=== PATIENT | male | born 1945 | race Two or more races ===

== ENCOUNTER 2020-09-06 03:16 | Emergency (ER) | payer MEDICARE, MEDICAID, SELFPAY ==
--- NOTE | 2020-09-06 03:24 | XR_ITS ---
EXAMINATION: XR CHEST CLINICAL INFORMATION: Shortness of breath COMPARISON: 07/18/2020 TECHNIQUE: Frontal view of the chest was obtained. FINDINGS: Cardiac leads overlie the chest. The lungs are well expanded. Left basilar calcified granuloma. Scarring at the right upper lung. Patchy right basilar opacity is noted. No pleural effusion. No pneumothorax. The cardiomediastinal silhouette is unchanged. IMPRESSION: Chronic changes in the lungs. Patchy opacity at the right base could represent atelectasis or pneumonia. This could be in part chronic as well.
[2020-09-06 03:25] VITALS: BP 175/69; PULSE 107; RESP 25; TEMP 36.8; O2SAT 94; BMI 25.7
[2020-09-06] MEDS: Albuterol Sulfate (0.083%) 2.5 MG/3 ML VIAL.NEB 10 MG INHALE (03:37)
[2020-09-06] MEDS: methylPREDNISolone Sod Succ/PF 125 MG/2 ML VIAL IVPUSH (03:43)
[2020-09-06 03:44] VITALS: BP 175/69; PULSE 107; RESP 18; RESP 25; TEMP 36.8; O2SAT 94
[2020-09-06 03:51] LABS: MANUAL DIFF FLAG NO
[2020-09-06 03:54] LABS: Basophils Percent Auto 0.4 % (0-2); Eosinophils Absolute Auto 0.8 X10*3/uL (0.0-0.4); Eosinophils Percent Auto 11.8 % (0-4); Hematocrit 38.4 % (42-52); Hemoglobin 11.6 g/dl (14.0-18.0); Imm Gran Abs Auto 0.02 X10*3/uL (0.00-0.03); Imm Gran Pct Auto 0.3 % (0.0-0.4); Lymphocytes Absolute Auto 1.9 X10*3/uL (1.2-4.9); Lymphocytes Percent Auto 28.2 % (20-40); Mean Corpuscular HGB Conc 30.2 g/dl (31.0-36.0); Mean Corpuscular Hemoglobin 26.2 pg (27.0-33.0); Mean Corpuscular Volume 86.7 fL (80-98); Mean Platelet Volume 9.9 fL (9.4-12.4); Monocytes Absolute Auto 0.5 X10*3/uL (0.1-1.2); Monocytes Percent Auto 7.8 % (2-11); Neutrophils Absolute Auto 3.5 X10*3/uL (2.0-8.3); Neutrophils Percent Auto 51.5 % (45-73); Platelet Count 333 X10*3/uL (160-400); Red Blood Count 4.43 X10*6/uL (4.60-5.80); Red Cell Distribution Width 14.2 % (11.0-16.0); White Blood Count 6.9 X10*3/uL (4.8-10.8)
--- NOTE | 2020-09-06 03:56 | ED.ASTHMA ---
HPI - Asthma General Chief Complaint: Asthma Stated Complaint: asthma Time Seen by Provider: 09/06/20 03:23 Source: patient Mode of arrival: ambulatory History of Present Illness HPI Narrative: this is a 74-year-old male with known COPD and continues to be a smoker who presents with 2 days of worsening shortness of breath without associated fevers, chills, chest pain / palpitations, new cough, or increased phlegm production. Patient states he used his albuterol couple of times, but does have medication. Related Data Home Medications Medication Instructions Recorded Confirmed albuterol sulfate 90 mcg INHALATION 09/06/20 levothyroxine 125 mcg PO 09/06/20 omeprazole 20 mg PO 09/06/20 roflumilast [Daliresp] 500 mcg PO 09/06/20 Previous Rx's Medication Instructions Recorded azithromycin 250 mg PO DAILY 4 Days #4 tab 09/06/20 prednisone 40 mg PO DAILY 4 Days #8 tab 09/06/20 Allergies Allergy/AdvReac Type Severity Reaction Status Date / Time shellfish derived Allergy Severe ANAPHYLAXIS Unverified 08/15/20 17:04 [SHELLFISH DERIVED] pollen extracts [POLLEN] Allergy Intermediate RUNNING Unverified 08/15/20 17:04 NOSE, WATERY EYES, SNEEZING varenicline [VARENICLINE] AdvReac Unknown PALPITATION Unverified 08/15/20 17:04 S ENVIROMENTAL Allergy Intermediate RUNNY Uncoded 08/15/20 17:04 NOSE, WATERY EYES, SNEEZING Review of Systems Review of Systems: Pertinent positives and negatives as stated in the HPI. GEN: no fevers, chills, fatigue HEENT: no nasal congestion, sore throat, ear pain NEURO: no headache, dizziness, focal weakness PULM: +shortness of breath CV: no chest pain, palpitations, LE edema ABD: no abdominal pain, nausea, vomiting, diarrhea : no dysuria, urgency, frequency SKIN: no rash ROS otherwise negative x 10 PMFSH Past Medical History Source: nursing notes reviewed Medical History Asthma Diabetes Social History Social History Alcohol intake: never Smoking Status: Current every day smoker Use of substances other than those prescribed or required for medical reasons: No Advance Directives: No Advance Directives Information Provided: No Physical Exam Vital Signs and I&O and Narrative: Vital Signs and I&O: Vital Signs Temp 98.2 F 09/06/20 03:44 Pulse 90 09/06/20 04:00 Resp 18 09/06/20 04:00 BP 155/78 H 09/06/20 04:00 Pulse Ox 94 09/06/20 03:44 Intake & Output 09/05/20 09/05/20 09/06/20 06:59 18:59 06:59 Weight 63.957 kg Body Mass Index 25.7 VITAL SIGNS: Reviewed. GENERAL: Well developed, well nourished, in no acute distress. HEAD: Normocephalic/atraumatic, EYES: PERRLA, EOMI intact without pain, no nystagmus/pallor/icterus noted EARS: Ext canals without abnormality, TMs non-bulging and non-erythematous NOSE: Nares patent bilateral OROPHARYNX: no oral lesions noted, posterior pharynx clear and non-erythematous without noted tonsillar enlargement/erythema/exudates NECK: Supple, no adenopathy LUNGS: expiratory wheezes, tachypnea, and mild work of breathing.. No adventitious sounds or accessory muscle use. SpO2< 94%> CARDIOVASCULAR: Regular rate and rhythm without noted murmurs, no JVD or lower extremity edema. ABDOMEN: Soft, non-tender, non-distended with bowel sounds. No rigidity. No guarding. No palpable masses or hernias noted MUSCULOSKELETAL: No tenderness, deformities, or effusions noted on gross inspection. EXTREMITIES: No cyanosis, clubbing or edema. SKIN: Inspection of the skin reveals no rashes, ulcerations, jaundice, pallor, or petechiae. NEUROLOGIC: Alert and oriented x 4. Strength and sensation to light touch were grossly intact x 4. Course Course Course Narrative: This is a 74-year-old male with history and clinical presentation consistent with chronic COPD/ asthma condition that is contributing to patient's tachycardia and tachypnea and this is not a sepsis presentation. Patient given an hour long albuterol treatment as well as Solu-Medrol. Review of all investigations is negative for evidence of infectious etiology, however there was mention on chest x-ray possible infiltrate on the right side and patient will be empirically treated with a Z-Jorge but otherwise reports relief and resolution of his symptoms. patient received initial dose of antibiotics and will have a script for the remainder as well as a short course of steroids sent to his pharmacy. MDM - Asthma Lab Data Result diagrams: 09/06/20 03:46 09/06/20 03:46 Labs: Lab Results 09/06/20 09/06/20 09/06/20 Range/Units 03:41 03:46 03:46 WBC 6.9 (4.8-10.8) X10*3/uL RBC 4.43 L (4.60-5.80) X10*6/uL Hgb 11.6 L (14.0-18.0) g/dl Hct 38.4 L (42-52) % MCV 86.7 (80-98) fL MCH 26.2 L (27.0-33.0) pg MCHC 30.2 L (31.0-36.0) g/dl RDW 14.2 (11.0-16.0) % Plt Count 333 (160-400) X10*3/uL MPV 9.9 (9.4-12.4) fL Immature Gran % (Auto) 0.3 (0.0-0.4) % Neut % (Auto) 51.5 (45-73) % Lymph % (Auto) 28.2 (20-40) % Hubbard % (Auto) 7.8 (2-11) % Eos % (Auto) 11.8 H (0-4) % Baso % (Auto) 0.4 (0-2) % Lymph # (Auto) 1.9 (1.2-4.9) X10*3/uL Hubbard # (Auto) 0.5 (0.1-1.2) X10*3/uL Eos # (Auto) 0.8 H (0.0-0.4) X10*3/uL Baso # (Auto) 0.0 (0.0-0.2) X10*3/uL Abs Immat Gran (auto) 0.02 (0.00-0.03) X10*3/uL Absolute Neuts (auto) 3.5 (2.0-8.3) X10*3/uL Absolute Nucleated RBC 0.000 (0.0-0.012) X10*3/uL Nucleated RBC % (auto) 0.0 (0.0-0.2) /100WBC Hold Blue Top SEE NOTE Sodium 143 (135-145) mmol/L Potassium 4.4 (3.3-5.1) mmol/l Chloride 105 (96-108) mmol/L Carbon Dioxide 29 (22-29) mmol/L Anion Gap 13 (12-20) BUN 10 (9-16) mg/dL Creatinine 0.79 (0.5-1.4) mg/dL Estim Creat Clear Calc 65.2 Estimated GFR > 60 Random Glucose 93 (60-115) mg/dL Calcium 8.8 (8.4-10.2) mg/dL Total Bilirubin 0.4 (0.0-1.0) mg/dL AST 16 (5-37) U/L ALT 15 (0-40) U/L Alkaline Phosphatase 117 (39-117) U/L Total Protein 6.6 (6.5-8.0) g/dL Albumin 4.0 (3.5-5.0) g/dL Discharge Plan Discharge Clinical Impression: Chronic obstructive asthma with exacerbation Patient Disposition: Home, Self-Care Instructions: How to Stop Smoking (ED), COPD (Chronic Obstructive Pulmonary Disease) (ED) Prescriptions: New azithromycin 250 mg tablet 250 mg PO DAILY 4 Days Qty: 4 RF: 0 prednisone 20 mg tablet 40 mg PO DAILY 4 Days Qty: 8 RF: 0 No Action levothyroxine 125 mcg tablet 125 mcg PO RF: 0 omeprazole 20 mg capsule,delayed release(DR/EC) 20 mg PO RF: 0 albuterol sulfate 90 mcg/actuation HFA aerosol inhaler 90 mcg inhalation RF: 0 Daliresp 500 mcg tablet 500 mcg PO RF: 0 Referrals: Physician,Unknown [Primary Care Provider] - 2 days
[2020-09-06 04:00] VITALS: BP 155/78; PULSE 90; RESP 18
[2020-09-06 04:32] LABS: Alanine Aminotransferase 15 U/L (0-40); Alkaline Phosphatase 117 U/L (39-117); Anion Gap 13 (12-20); Aspartate Amino Transferase 16 U/L (5-37); Bilirubin Total 0.4 mg/dL (0.0-1.0); Blood Urea Nitrogen 10 mg/dL (9-16); Calcium 8.8 mg/dL (8.4-10.2); Carbon Dioxide 29 mmol/L (22-29); Chloride 105 mmol/L (96-108); Creatinine Clr Calc Pharmacy 65.2; Estimated Glomerular Filt Rate > 60; Glucose Random 93 mg/dL (60-115); Potassium 4.4 mmol/l (3.3-5.1); Sodium 143 mmol/L (135-145); Total Protein 6.6 g/dL (6.5-8.0)
--- NOTE | 2020-09-06 04:58 | PC.NURSE ---
patient reports relief post neb.
--- NOTE | 2020-09-06 05:04 | PC.NURSE ---
when sleeping patient noted to desaturate down to 89%
[2020-09-06] MEDS: Azithromycin 500 MG TABLET PO (05:51)
== END 2020-09-06 05:56 | disposition home or self-care (01) ==
PROVIDERS: Emergency Provider Student in an Organized Health Care Education/Training Program
DX: J44.1 Chronic obstructive pulmonary disease with (acute) exacerbation (principal); F17.200 Nicotine dependence, unspecified, uncomplicated; Z71.6 Tobacco abuse counseling; Z79.899 Other long term (current) drug therapy
CPT/HCPCS: 36415; 71045; 80053; 85025; 96374; 99284; J2930

== ENCOUNTER 2020-09-10 09:30 | Outpatient (REF) | payer MEDICARE, MEDICAID, SELFPAY ==
--- NOTE | 2020-09-10 09:38 | CT_ITS ---
EXAMINATION: CT CHEST WITHOUT CONTRAST CLINICAL INFORMATION: Pulmonary nodule COMPARISON: Previous chest x-rays most recent 09/06/2020 and chest CTA April 2018 TECHNIQUE: Multidetector volumetric CT imaging of the chest was done. Axial MIP volume rendering provided. Sagittal and coronal reformatted images were obtained. This CT examination was performed using dose optimization techniques as appropriate, variously including the following: *Automated exposure control *Adjustment of mA and/or kV according to patient size (this includes techniques or standardized protocols for targeted exams where dose is matched to indication/reason for exam; i.e. extremities or head) *Use of iterative reconstruction technique DLP: 98 mGy-cm FINDINGS: LUNGS: There is evidence of emphysema. There is biapical pleural and parenchymal scarring, greater on the right. There is right apical and upper lobe pleural calcification. These findings are stable. There is a new superior segment right lower lobe nodule measuring 5 x 10 mm axial image 28 series 4 and 270 series 5. This is oval in shape, and noncalcified and abuts an accessory fissure and may represent a subpleural lymph node. There is a 7 mm calcified left lower lobe nodule axial image 42 series 4 that is stable. There is evidence of diffuse airways disease with areas of bronchial wall thickening and bronchial soft tissue opacification. There is a new cavitary right lower lobe nodule in the posterior medial costophrenic sulcus. This measures 1.2 cm and has slightly spiculated margins, axial image 465 series 5.. MEDIASTINUM: The heart does not appear enlarged. There is mild coronary artery calcification. There is no pericardial effusion. The thoracic aorta is tortuous but normal in caliber. There are small mediastinal lymph nodes including small calcified left hilar lymph nodes. No enlarged lymph nodes are seen. PLEURA: There is no pleural effusion. No pleural mass or thickening. AXILLA: No chest wall mass or enlarged axillary lymph nodes are seen. UPPER ABDOMEN: Unremarkable. OSSEOUS STRUCTURES: There are mild degenerative changes of the spine. IMPRESSION: Emphysema. Stable 7 mm calcified left lower lobe nodule probably representing a calcified granuloma. New 5 x 10 mm oval-shaped superior segment right lower lobe noncalcified pulmonary nodule. This is adjacent to an accessory fissure and may represent a subpleural lymph node. Evidence of diffuse airways disease with areas of bronchial wall thickening and bronchial soft tissue opacification. This is greatest in the lower lobes. New 1.2 cm cavitary right lower lobe, or nodule in the posterior medial costophrenic sulcus. Infectious, inflammatory and neoplastic processes should be considered. Short-term chest CT follow-up in 3 months is recommended.
== END 2020-09-10 09:31 | disposition home or self-care (01) ==
LOC: HO.CT 09:30
PROVIDERS: PCP Nurse Practitioner Family; Visit Provider Internal Medicine Pulmonary Disease
DX: R91.1 Solitary pulmonary nodule (principal); J43.9 Emphysema, unspecified
CPT/HCPCS: 71250

== ENCOUNTER 2020-09-28 15:23 | Inpatient (IN) | payer MEDICARE, MEDICAID, SELFPAY ==
[2020-09-28] VITALS (9 sets, daily range): BP systolic 120–156; BP diastolic 49–140; PULSE 82–119; RESP 16–38; TEMP 36.4–36.7; O2SAT 97–99; BMI 25.0
--- NOTE | 2020-09-28 15:44 | ECG_ITS ---
Test Reason : SOB Blood Pressure : / mmHG Vent. Rate : 069 BPM Atrial Rate : 069 BPM P-R Int : 094 ms QRS Dur : 094 ms QT Int : 356 ms P-R-T Axes : 079 062 078 degrees QTc Int : 381 ms Sinus rhythm with short FL Nonspecific T wave abnormality Abnormal ECG T wave amplitude has increased in Anterolateral leads Heart rate has decreased Premature atrial complexes are no longer Present Referred By: Juni Vann Electronically Signed By:EMILEE DO MD
--- NOTE | 2020-09-28 15:44 | XR_ITS ---
EXAMINATION: XR CHEST CLINICAL INFORMATION: Shortness of breath. COMPARISON: Multiple priors, most recent CT chest dated 09/10/2020. TECHNIQUE: Frontal view of the chest was obtained. FINDINGS: Mild emphysematous changes with right upper lobe calcified pleural plaques and left lower lobe calcified granuloma appear unchanged. No new airspace consolidation. No pleural effusion or pneumothorax. Stable cardiomediastinal silhouette. No acute osseous abnormality. XR/XR chest 1V IMPRESSION: No acute cardiopulmonary findings.
--- NOTE | 2020-09-28 15:57 | ED.SOB ---
HPI - SOB/Dyspnea General Chief Complaint: Dyspnea Stated Complaint: shortness of breath Time Seen by Provider: 09/28/20 15:43 Source: patient Mode of arrival: ambulatory Limitations: no limitations History of Present Illness HPI Narrative: 74-year-old male long standing history of smoking with COPD, multiple hospitalization for COPD exacerbation, presented with progressively worsening of shortness of breath since last night, presentation today is similar to his previous presentation in the past, patient declined any fever or chills or exposure to a sick contact. MD elicited complaint: shortness of breath Pertinent past history: COPD Onset (ago): day(s) (1) Timing: constant Severity: severe Exacerbating factors: exertion Relieving factors: nothing Known history of: COPD Associated symptoms: denies other symptoms Treatment prior to arrival: none Related Data Home Medications Medication Instructions Recorded Confirmed albuterol sulfate 90 mcg INHALATION DAILY 09/06/20 levothyroxine 112 mcg PO QAM 09/28/20 09/28/20 metformin 500 mg PO DAILY 09/28/20 09/28/20 mirtazapine 7.5 mg PO DAILY 09/28/20 09/28/20 montelukast 10 mg PO DAILY 09/28/20 09/28/20 nabumetone 500 mg PO DAILY 09/28/20 09/28/20 prednisone 10 mg PO DAILY 09/28/20 09/28/20 Allergies Allergy/AdvReac Type Severity Reaction Status Date / Time shellfish derived Allergy Severe ANAPHYLAXIS Unverified 08/15/20 17:04 [SHELLFISH DERIVED] pollen extracts [POLLEN] Allergy Intermediate RUNNING Unverified 08/15/20 17:04 NOSE, WATERY EYES, SNEEZING varenicline [VARENICLINE] AdvReac Unknown PALPITATION Unverified 08/15/20 17:04 S ENVIROMENTAL Allergy Intermediate RUNNY Uncoded 08/15/20 17:04 NOSE, WATERY EYES, SNEEZING Review of Systems Review of Systems: All other systems are reviewed and are negative Constitutional: Reports as per HPI and Reports no additional constitutional complaints Eyes: Reports as per HPI and Reports no additional eye complaints Reports system reviewed and no additional complaints, except as documented Cardiovascular: Reports as per HPI and Reports no additional cardiovascular complaints Respiratory: Reports as per HPI and Reports no additional respiratory complaints Gastrointestinal: Reports as per HPI and Reports no additional gastrointestinal complaints Genitourinary: Reports no additional female genitourinary complaints Musculoskeletal: Reports no additional musculoskeletal complaints Skin/Breast: Reports system reviewed and no additional complaints, except as docu Psychiatric: Reports no additional psychiatric complaints Endocrine: Reports no additional endocrine complaints Hematologic/Lymphatic: Reports no additional hematologic/lymphatic complaints Allergic/Immunologic: Reports no additional allergic/immunologic complaints Reports system reviewed and no additional complaints, except as documented and Reports Abnormal speech present [facility] Past Medical History Medical History Asthma Diabetes Oxygen dependent Social History Social History Alcohol intake: never Smoking Status: Current every day smoker Smoked in Last 30 Days: Yes Use of substances other than those prescribed or required for medical reasons: No Advance Directives: No Advance Directives Information Provided: No Physical Exam Vital Signs: Vital Signs: Vital Signs Temp Pulse Resp BP Pulse Ox 09/28/20 16:34 122/63 09/28/20 15:44 156/140 H 97 09/28/20 15:42 38 H 09/28/20 15:40 98.1 F 105 H 38 H 97 Body Mass Index 25.0 vital signs have been reviewed as normal and appeared to be correct. Blood pressure normal. Heart rate normal. Tachypnea. Temperature normal. Oxygen saturation normal. Appearance: Alert. Oriented X3. acute respiratory distress, patient is try potting. Head: Normal external exam. Normocephalic. Atraumatic. No Yang signs noted. No raccoon eyes noted Eyes: PERRLA. EOMI. Conjunctiva and sclera normal. Eyelids normal. ENT: EAC normal. TM's Normal. Pharynx normal. Uvula midline. Moist mucous membranes. No trismus noted. No drooling noted. No muffled voice noted. Neck: Normal inspection. Neck supple. FROM. No adenopathy. Thyroid Normal. No meningeal signs. No neck mass noted. CVS: Normal heart rate and rhythm. Heart sound normal. No murmurs noted. Pulses normal throughout. Respiratory: moderate respiratory distress. prolonged expiration, positive expiratory wheezes. rales/rhonchi noted. Chest nontender. intercostal muscle accessory usage noted with decreased air movement noted. Abdomen: Soft and nontender. Bowel sounds normal in all 4 quadrants. No distention noted. No organomegaly noted. No visible injury noted. Back: No CVA tenderness. Full range of motion noted. Skin: Skin warm and dry. Normal skin color. Normal skin turgor. No rashes/lesions/lacerations noted. Extremities: No lower extremity edema. Extremities exhibit normal range of motion. Extremities nontender. Neuro: Oriented X 3. No motor deficit. No sensory deficit. Reflexes normal. Course Course Course Narrative: 74 years old male history of COPD oxygen-dependent use 1 L of oxygen at home, longstanding smoking history, presented with COPD exacerbation with acute respiratory distress, patient will be on the cardiac monitoring, consider continuous bronchodilator, Solu-Medrol, magnesium, Levaquin, check labs, check x-ray, frequent assessment. MDM - SOB/Dyspnea MDM Narrative Medical decision making narrative: assessment and plan. 74-year-old male presented with COPD exacerbation and respiratory distress, cause patient met criteria for sepsis / COPD/ lactic acidosis above 4. Patient will receive continuous treatment of bronchodilator, magnesium, Solu-Medrol, antibiotic (Levaquin), patient also received fluids 30 cc/kg. Will admit. Lab Data Attestation: I reviewed the patient's lab results. Result diagrams: 09/28/20 15:46 09/28/20 15:46 Labs: Lab Results 09/28/20 09/28/20 09/28/20 Range/Units 15:46 15:46 15:46 WBC 11.5 H (4.8-10.8) X10*3/uL RBC 4.41 L (4.60-5.80) X10*6/uL Hgb 11.5 L (14.0-18.0) g/dl Hct 36.7 L (42-52) % MCV 83.2 (80-98) fL MCH 26.1 L (27.0-33.0) pg MCHC 31.3 (31.0-36.0) g/dl RDW 15.1 (11.0-16.0) % Plt Count 342 (160-400) X10*3/uL MPV 9.6 (9.4-12.4) fL Immature Gran % (Auto) 0.4 (0.0-0.4) % Neut % (Auto) 94.8 H (45-73) % Lymph % (Auto) 3.2 L (20-40) % [place] % (Auto) 1.3 L (2-11) % Eos % (Auto) 0.1 (0-4) % Baso % (Auto) 0.2 (0-2) % Lymph # (Auto) 0.4 L (1.2-4.9) X10*3/uL [place] # (Auto) 0.2 (0.1-1.2) X10*3/uL Eos # (Auto) 0.0 (0.0-0.4) X10*3/uL Baso # (Auto) 0.0 (0.0-0.2) X10*3/uL Abs Immat Gran (auto) 0.05 H (0.00-0.03) X10*3/uL Absolute Neuts (auto) 10.9 H (2.0-8.3) X10*3/uL Absolute Nucleated RBC 0.000 (0.0-0.012) X10*3/uL Nucleated RBC % (auto) 0.0 (0.0-0.2) /100WBC Smear Tech's Comments VERIFIED PT (10.8-13.0) SEC INR (0.9-1.1) APTT (24.1-38.0) SEC ABG pH (7.35-7.45) ABG pCO2 (32-45) mmhg ABG pO2 (83-108) mmhg ABG HCO3 (22-26) mmol/l ABG O2 Saturation % ABG Base Excess Oxygen Given Sodium 137 (135-145) mmol/L Potassium 4.2 (3.3-5.1) mmol/l Chloride 101 (96-108) mmol/L Carbon Dioxide 24 (22-29) mmol/L Anion Gap 16 (12-20) BUN 13 (9-16) mg/dL Creatinine 0.87 (0.5-1.4) mg/dL Estim Creat Clear Calc 66.7 Estimated GFR > 60 Random Glucose 200 H D (60-115) mg/dL Lactic Acid (0.5-2.0) mmol/L Calcium 8.2 L (8.4-10.2) mg/dL Total Bilirubin 0.6 (0.0-1.0) mg/dL Direct Bilirubin 0.2 (0.0-0.5) mg/dL AST 11 (5-37) U/L ALT 11 (0-40) U/L Alkaline Phosphatase 105 (39-117) U/L Troponin I High Sens 4.5 (<3.5-35.0) ng/L B-Natriuretic Peptide 36 (<100) pg/mL Total Protein 6.4 L (6.5-8.0) g/dL Albumin 4.0 (3.5-5.0) g/dL Lipase 30 (8-78) U/L 09/28/20 09/28/20 09/28/20 Range/Units 15:46 15:46 16:00 WBC (4.8-10.8) X10*3/uL RBC (4.60-5.80) X10*6/uL Hgb (14.0-18.0) g/dl Hct (42-52) % MCV (80-98) fL MCH (27.0-33.0) pg MCHC (31.0-36.0) g/dl RDW (11.0-16.0) % Plt Count (160-400) X10*3/uL MPV (9.4-12.4) fL Immature Gran % (Auto) (0.0-0.4) % Neut % (Auto) (45-73) % Lymph % (Auto) (20-40) % [place]land % (Auto) (2-11) % Eos % (Auto) (0-4) % Baso % (Auto) (0-2) % Lymph # (Auto) (1.2-4.9) X10*3/uL [place] # (Auto) (0.1-1.2) X10*3/uL Eos # (Auto) (0.0-0.4) X10*3/uL Baso # (Auto) (0.0-0.2) X10*3/uL Abs Immat Gran (auto) (0.00-0.03) X10*3/uL Absolute Neuts (auto) (2.0-8.3) X10*3/uL Absolute Nucleated RBC (0.0-0.012) X10*3/uL Nucleated RBC % (auto) (0.0-0.2) /100WBC Smear Tech's Comments PT 11.9 (10.8-13.0) SEC INR 1.0 (0.9-1.1) APTT 32.7 (24.1-38.0) SEC ABG pH 7.38 (7.35-7.45) ABG pCO2 35 (32-45) mmhg ABG pO2 71 L (83-108) mmhg ABG HCO3 20 L (22-26) mmol/l ABG O2 Saturation 94.1 % ABG Base Excess -4.0 Oxygen Given ROOM AIR Sodium (135-145) mmol/L Potassium (3.3-5.1) mmol/l Chloride (96-108) mmol/L Carbon Dioxide (22-29) mmol/L Anion Gap (12-20) BUN (9-16) mg/dL Creatinine (0.5-1.4) mg/dL Estim Creat Clear Calc Estimated GFR Random Glucose (60-115) mg/dL Lactic Acid 4.8 H* (0.5-2.0) mmol/L Calcium (8.4-10.2) mg/dL Total Bilirubin (0.0-1.0) mg/dL Direct Bilirubin (0.0-0.5) mg/dL AST (5-37) U/L ALT (0-40) U/L Alkaline Phosphatase (39-117) U/L Troponin I High Sens (<3.5-35.0) ng/L B-Natriuretic Peptide (<100) pg/mL Total Protein (6.5-8.0) g/dL Albumin (3.5-5.0) g/dL Lipase (8-78) U/L Critical Care Time Critical Care Time Total Critical Care Time: 60 Attestation: I have spent 60 minutes at the bedside providing critical care level the patient, diet management of the patient, monitoring the patient, reviewing x-ray of the patient, discussing plan with the patient, talking to the admitting physician. Discharge Plan Discharge Clinical Impression: Acute exacerbation of chronic obstructive airways disease, Acidosis, lactic Patient Disposition: Admitted As Inpatient Prescriptions: No Action metformin 500 mg tablet 500 mg PO DAILY RF: 0 prednisone 10 mg tablet 10 mg PO DAILY RF: 0 montelukast 10 mg tablet 10 mg PO DAILY RF: 0 levothyroxine 112 mcg tablet 112 mcg PO QAM RF: 0 nabumetone 500 mg tablet 500 mg PO DAILY RF: 0 mirtazapine 7.5 mg tablet 7.5 mg PO DAILY RF: 0 albuterol sulfate 90 mcg/actuation HFA aerosol inhaler 90 mcg inhalation DAILY RF: 0
[2020-09-28 15:59] LABS: Basophils Percent Auto 0.2 % (0-2); Eosinophils Percent Auto 0.1 % (0-4); Hematocrit 36.7 % (42-52); Hemoglobin 11.5 g/dl (14.0-18.0); Imm Gran Abs Auto 0.05 X10*3/uL (0.00-0.03); Imm Gran Pct Auto 0.4 % (0.0-0.4); Lymphocytes Absolute Auto 0.4 X10*3/uL (1.2-4.9); Lymphocytes Percent Auto 3.2 % (20-40); MANUAL DIFF FLAG SCAN; Mean Corpuscular HGB Conc 31.3 g/dl (31.0-36.0); Mean Corpuscular Hemoglobin 26.1 pg (27.0-33.0); Mean Corpuscular Volume 83.2 fL (80-98); Mean Platelet Volume 9.6 fL (9.4-12.4); Monocytes Absolute Auto 0.2 X10*3/uL (0.1-1.2); Monocytes Percent Auto 1.3 % (2-11); Neutrophils Absolute Auto 10.9 X10*3/uL (2.0-8.3); Neutrophils Percent Auto 94.8 % (45-73); Platelet Count 342 X10*3/uL (160-400); Red Blood Count 4.41 X10*6/uL (4.60-5.80); Red Cell Distribution Width 15.1 % (11.0-16.0); SCAN SMEAR FLAG 1; White Blood Count 11.5 X10*3/uL (4.8-10.8)
[2020-09-28] MEDS: Albuterol/Iprat 2.5/0.5MG 3 ML AMPUL.NEB INHALE ×2 (16:04→20:09)
[2020-09-28 16:05] LABS: Prothrombin Time 11.9 SEC (10.8-13.0)
[2020-09-28 16:07] LABS: Partial Thromboplastin Time 32.7 SEC (24.1-38.0)
[2020-09-28 16:17] LABS: Pt Ventilation O2% ROOM AIR
[2020-09-28 16:22] LABS: ABG PCO2 35 mmhg (32-45); PO2 ABG 71 mmhg (83-108); pH ABG 7.38 (7.35-7.45)
[2020-09-28 16:23] LABS: Blood Gas Serial # 5414; HCO3 ABG 20 mmol/l (22-26); Oxygen Saturation ABG 94.1 %
[2020-09-28 16:25] LABS: SLIDE REVIEW VERIFIED
[2020-09-28 16:31] LABS: B Type Natriuretic Peptide 36 pg/mL (<100); Troponin-I High Sensitivity 4.5 ng/L (<3.5-35.0)
[2020-09-28] MEDS: 0.9 % Sodium Chloride 500 ML 999 ML IVCONT ×2 (16:32→23:48)
[2020-09-28] MEDS: Magnesium Sulfate/H2O 2 GM/50 ML PIGGYBACK IV (16:32)
[2020-09-28] MEDS: levoFLOXacin/D5W 750 MG/150 ML PIGGYBACK 100 MG IV (16:32)
[2020-09-28 16:34] LABS: Lactic Acid 4.8 mmol/L (0.5-2.0)
[2020-09-28] MEDS: Albuterol Sulfate (0.083%) 2.5 MG/3 ML VIAL.NEB 7.5 MG INHALE (16:37)
[2020-09-28 16:42] LABS: Alanine Aminotransferase 11 U/L (0-40); Alkaline Phosphatase 105 U/L (39-117); Anion Gap 16 (12-20); Aspartate Amino Transferase 11 U/L (5-37); Bilirubin Direct 0.2 mg/dL (0.0-0.5); Bilirubin Total 0.6 mg/dL (0.0-1.0); Blood Urea Nitrogen 13 mg/dL (9-16); Calcium 8.2 mg/dL (8.4-10.2); Carbon Dioxide 24 mmol/L (22-29); Chloride 101 mmol/L (96-108); Creatinine Clr Calc Pharmacy 66.7; Estimated Glomerular Filt Rate > 60; Glucose Random 200 mg/dL (60-115); Lipase 30 U/L (8-78); Potassium 4.2 mmol/l (3.3-5.1); Sodium 137 mmol/L (135-145); Total Protein 6.4 g/dL (6.5-8.0)
[2020-09-28] MEDS: 0.9 % Sodium Chloride 2,041.17 ML 2041.17 ML IVCONT (16:54)
[2020-09-28 17:18] LABS: SARS COV2 PCR INHOUSE NEGATIVE (Negative)
--- NOTE | 2020-09-28 17:29 | PC.NURSE ---
1632 ivp solumedrol per md verbal order
[2020-09-28 17:55] LABS: Reflex Lactate? Lactic Acid Added
--- NOTE | 2020-09-28 18:10 | PM.IMHP ---
History of Present Illness Date of Service: 09/28/20 Chief Complaint: sob HPI this is the 74-year-old male who has history of COPD : Came to the hospital because shortness of breath, cough productive with on and off yellow sputum-he went to his the PCP and was taking antibiotic and prednisone as per patient he does not remember the name of the antibiotic though ,from last 2 days his shortness of breath was worsening so he decided to come to the hospital. In the ED patient was seen by ED physician and [id number] was given antibiotic arteaga Has W BC count elevated Chest x-ray clear After receiving above treatment from ED patient shortness of breath is slightly improving, now being admitted for COPD exacerbation. The patient denies any fever or chills or nausea vomiting or abdominal pain or dizziness or weakness or numbness or any urinary complaints. He denies any recent travel or any sick contact or any body sick around him. [facility] Medical History (Updated 09/28/20 @ 18:24 by Bob Nowak MD) Asthma Cataract COPD (chronic obstructive pulmonary disease) Diabetes GERD (gastroesophageal reflux disease) Hypertension Hypothyroidism Osteoarthritis Osteoporosis Oxygen dependent Ureteral calculi Family history: reviewed and not pertinent (Father had cancer. Unclear which cancer.) Surgical History (Updated 09/28/20 @ 18:19 by Bob Nowak MD) History of appendectomy Hx of cataract surgery Social History Household Members: Spouse Housing: Apartment Do you presently have visiting nurse or other home services: No Alcohol intake: never Smoking Status: Current every day smoker Tobacco Type: Cigarette Smoked in Last 30 Days: Yes Patient Interested in Nicotine Replacement: Yes Patient Given Instructions on How to Stop Smoking: Yes Date Education Initiated: 09/28/20 Second Hand Smoke Exposure: Yes Use of substances other than those prescribed or required for medical reasons: No Currently Displaying Signs/Symptoms of Drug Intoxication Withdrawal: No Any prior treatment program specific to substance use: No Have you been hit, kicked, punched, or otherwise hurt by someone within the past year? If so, by whom?: No Do you feel safe in your current relationship?: Yes Is there a partner from a previous relationship who is making you feel unsafe now?: No Are you made to feel afraid or neglected: No Advance Directives: No Advance Directives Information Provided: No Do you have thoughts of harming others: None Do you have a plan to hurt others: No Plan Recently lost weight without trying: No Meds Allergies Allergy/AdvReac Type Severity Reaction Status Date / Time shellfish derived Allergy Severe ANAPHYLAXIS Verified 09/28/20 19:45 [SHELLFISH DERIVED] pollen extracts [POLLEN] Allergy Intermediate RUNNING Verified 09/28/20 19:45 NOSE, WATERY EYES, SNEEZING varenicline [VARENICLINE] AdvReac Unknown PALPITATION Verified 09/28/20 19:45 S ENVIROMENTAL Allergy Intermediate RUNNY Uncoded 09/28/20 19:45 NOSE, WATERY EYES, SNEEZING Home Medications Medication Instructions Recorded Confirmed Type albuterol sulfate 90 mcg INHALATION DAILY 09/06/20 09/28/20 History levothyroxine 112 mcg PO QAM 09/28/20 09/28/20 History metformin 500 mg PO DAILY 09/28/20 09/28/20 History mirtazapine 7.5 mg PO DAILY 09/28/20 09/28/20 History montelukast 10 mg PO DAILY 09/28/20 09/28/20 History nabumetone 500 mg PO DAILY 09/28/20 09/28/20 History prednisone 10 mg PO DAILY 09/28/20 09/28/20 History Physical Exam Vital Signs and Narrative: Vital Signs: Last Vital Signs Temp 98.1 F 09/28/20 15:40 Pulse 105 H 09/28/20 15:40 Resp 38 H 09/28/20 15:42 BP 122/63 09/28/20 16:34 Pulse Ox 97 09/28/20 15:44 Body Mass Index 25.0 Const: General: cooperative Nutritional Appearance: well nourished HENMT: Head: Yes normal to inspection Ears: hearing grossly normal bilaterally Eyes: Sclerae: sclerae normal Neck: Yes normal visual inspection Resp: Other: Bilateral wheezing, slightly diminished at bases. Cardio: Other: Regular rate and rhythm S1-S2 heard no murmur GI: Other: Abdomen is soft nondistended nontender bowel sounds are present. : Other: Noncontributory Skin: Other: No rash or erythema Neuro: Other: Alert oriented x3, nonfocal Extrem: Other: Pulses present no cyanosis no edema. Psych: Other: Cooperative and euthymic. Mental Status: mental status grossly normal Results Labs Labs: Laboratory Tests 09/28/20 09/28/20 09/28/20 15:46 15:46 15:46 WBC 11.5 H RBC 4.41 L Hgb 11.5 L Hct 36.7 L MCV 83.2 MCH 26.1 L MCHC 31.3 RDW 15.1 Plt Count 342 MPV 9.6 Immature Gran % (Auto) 0.4 Neut % (Auto) 94.8 H Lymph % (Auto) 3.2 L [place] % (Auto) 1.3 L Eos % (Auto) 0.1 Baso % (Auto) 0.2 Lymph # (Auto) 0.4 L [place] # (Auto) 0.2 Eos # (Auto) 0.0 Baso # (Auto) 0.0 Abs Immat Gran (auto) 0.05 H Absolute Neuts (auto) 10.9 H Absolute Nucleated RBC 0.000 Nucleated RBC % (auto) 0.0 Smear Tech's Comments VERIFIED PT INR APTT ABG pH ABG pCO2 ABG pO2 ABG HCO3 ABG O2 Saturation ABG Base Excess Oxygen Given Sodium 137 Potassium 4.2 Chloride 101 Carbon Dioxide 24 Anion Gap 16 BUN 13 Creatinine 0.87 Estim Creat Clear Calc 66.7 Estimated GFR > 60 Random Glucose 200 H D Lactic Acid Calcium 8.2 L Total Bilirubin 0.6 Direct Bilirubin 0.2 AST 11 ALT 11 Alkaline Phosphatase 105 Troponin I High Sens 4.5 B-Natriuretic Peptide 36 Total Protein 6.4 L Albumin 4.0 Lipase 30 Coronavirus (PCR) 09/28/20 09/28/20 09/28/20 15:46 15:46 15:53 WBC RBC Hgb Hct MCV MCH MCHC RDW Plt Count MPV Immature Gran % (Auto) Neut % (Auto) Lymph % (Auto) [place] % (Auto) Eos % (Auto) Baso % (Auto) Lymph # (Auto) [place] # (Auto) Eos # (Auto) Baso # (Auto) Abs Immat Gran (auto) Absolute Neuts (auto) Absolute Nucleated RBC Nucleated RBC % (auto) Smear Tech's Comments PT 11.9 INR 1.0 APTT 32.7 ABG pH ABG pCO2 ABG pO2 ABG HCO3 ABG O2 Saturation ABG Base Excess Oxygen Given Sodium Potassium Chloride Carbon Dioxide Anion Gap BUN Creatinine Estim Creat Clear Calc Estimated GFR Random Glucose Lactic Acid 4.8 H* Calcium Total Bilirubin Direct Bilirubin AST ALT Alkaline Phosphatase Troponin I High Sens B-Natriuretic Peptide Total Protein Albumin Lipase Coronavirus (PCR) NEGATIVE 09/28/20 16:00 WBC RBC Hgb Hct MCV MCH MCHC RDW Plt Count MPV Immature Gran % (Auto) Neut % (Auto) Lymph % (Auto) [place] % (Auto) Eos % (Auto) Baso % (Auto) Lymph # (Auto) [place] # (Auto) Eos # (Auto) Baso # (Auto) Abs Immat Gran (auto) Absolute Neuts (auto) Absolute Nucleated RBC Nucleated RBC % (auto) Smear Tech's Comments PT INR APTT ABG pH 7.38 ABG pCO2 35 ABG pO2 71 L ABG HCO3 20 L ABG O2 Saturation 94.1 ABG Base Excess -4.0 Oxygen Given ROOM AIR Sodium Potassium Chloride Carbon Dioxide Anion Gap BUN Creatinine Estim Creat Clear Calc Estimated GFR Random Glucose Lactic Acid Calcium Total Bilirubin Direct Bilirubin AST ALT Alkaline Phosphatase Troponin I High Sens B-Natriuretic Peptide Total Protein Albumin Lipase Coronavirus (PCR) Assessment and Plan (1) Acute exacerbation of chronic obstructive airways disease: Status: Acute (2) Acidosis, lactic: Status: Acute (3) Bronchitis: Status: Acute Assessment and plan arteaga: 1. COPD exacerbation: Patient was started on nebs, steroids, antibiotic patient was also initially given 30 cc bolus as per the ED physician Will continue nebs, steroids, azithromycin, oxygen titrate to keep saturation around 90% Kim test neg Monitor lactic acid-? Seems like probably related to nebs, metformin. Will add azithromycin because of question of bronchitis, otherwise procalcitonin level pending and chest x-ray seems fine to Pulmonary evaluation If patient condition worsen we will repeat ABG and consider ice evaluation. 2. Diabetes: Continue to monitor fingerstick with sliding scale coverage, hold metformin for now. Diabetic diet 3. Tobacco dependence: Continue nicotine patch advised to swat quit smoking but he says he smoked he has quit smoking 5 days ago unclear. 4. History of hypothyroidism: Continue levothyroxine. DVT prophylaxis with subcu heparin.
[2020-09-28 19:26] LABS: ~Lactic Acid-LAB USE ONLY 4.7 mmol/L (0.5-2.0)
[2020-09-28] MEDS: Nicotine 14 MG PATCH.TD24 TRANSDERMA (19:46)
[2020-09-28] MEDS: Azithromycin 500 MG in 0.9 % Sodium Chloride 250 ML 125 MG IV (19:46)
[2020-09-28 20:09] LABS: Glucose, Whole Blood 214 mg/dL (60-115)
--- NOTE | 2020-09-28 20:16 | PC.NURSE ---
Report given to floor and patient is ready for transport.
[2020-09-28 20:23] LABS: Glucose Urine UA 250 MG/DL (NEG); Leukocyte Esterase Urine NEG (NEG); Nitrite Urine NEG (NEG); PH 6.5 (5.0-8.0); Specific Gravity - Urine 1.015 (1.005-1.025); Urine Blood NEG (NEG); Urine Ketones NEG (NEG); Urine Protein NEG (NEG-TRACE)
[2020-09-28 20:25] LABS: Appearance Urine CLEAR; Color Urine YELLOW
[2020-09-28] MEDS: Insulin Lispro 100 UNIT/ML 3 ML VIAL SUBCUT (20:25)
[2020-09-28 20:49] LABS: Reflex Lactate? 2 Y
[2020-09-28 21:15] LABS: Glucose, Whole Blood 197 mg/dL (60-115)
[2020-09-28] MEDS: Heparin Sodium,Porcine 5,000 UNIT/ML VIAL 5000 UNIT SUBCUT (21:32)
[2020-09-28] MEDS: Levothyroxine Sodium 112 MCG TABLET PO (21:33)
[2020-09-28 23:27] LABS: ~Lactic Acid-LAB USE ONLY 6.3 mmol/L (0.5-2.0)
[2020-09-28] MEDS: 0.9 % Sodium Chloride Flush 3 ML SYRINGE IVFLUSH (23:47)
[2020-09-29 03:49] VITALS: BP 131/59; PULSE 90; RESP 18; TEMP 36.6; O2SAT 97
[2020-09-29 07:12] LABS: Basophils Percent Auto 0.1 % (0-2); Hematocrit 35.4 % (42-52); Hemoglobin 10.8 g/dl (14.0-18.0); Imm Gran Abs Auto 0.03 X10*3/uL (0.00-0.03); Imm Gran Pct Auto 0.4 % (0.0-0.4); Lymphocytes Absolute Auto 0.3 X10*3/uL (1.2-4.9); Lymphocytes Percent Auto 4.6 % (20-40); MANUAL DIFF FLAG SCAN; Mean Corpuscular HGB Conc 30.5 g/dl (31.0-36.0); Mean Corpuscular Hemoglobin 25.6 pg (27.0-33.0); Mean Corpuscular Volume 83.9 fL (80-98); Mean Platelet Volume 10.1 fL (9.4-12.4); Monocytes Absolute Auto 0.1 X10*3/uL (0.1-1.2); Monocytes Percent Auto 1.5 % (2-11); Neutrophils Absolute Auto 6.3 X10*3/uL (2.0-8.3); Neutrophils Percent Auto 93.4 % (45-73); Platelet Count 314 X10*3/uL (160-400); Red Blood Count 4.22 X10*6/uL (4.60-5.80); SCAN SMEAR FLAG 1; White Blood Count 6.7 X10*3/uL (4.8-10.8)
[2020-09-29 07:28] LABS: Anion Gap 13 (12-20); Blood Urea Nitrogen 10 mg/dL (9-16); Calcium 7.4 mg/dL (8.4-10.2); Carbon Dioxide 27 mmol/L (22-29); Chloride 105 mmol/L (96-108); Creatinine Clr Calc Pharmacy 80.6; Estimated Glomerular Filt Rate > 60; Glucose Random 161 mg/dL (60-115); Potassium 4.2 mmol/l (3.3-5.1); Sodium 141 mmol/L (135-145)
[2020-09-29] MEDS: Albuterol/Iprat 2.5/0.5MG 3 ML AMPUL.NEB INHALE ×4 (07:41→19:53)
[2020-09-29 07:49] LABS: Glucose, Whole Blood 144 mg/dL (60-115)
[2020-09-29 07:57] LABS: SLIDE REVIEW VERIFIED
[2020-09-29 08:00] VITALS: BP 138/65; PULSE 83; PULSE 89; RESP 18; TEMP 36.4; TEMP 36.5; O2SAT 98
[2020-09-29] MEDS: Levothyroxine Sodium 112 MCG TABLET PO (08:13)
[2020-09-29] MEDS: 0.9 % Sodium Chloride Flush 3 ML SYRINGE IVFLUSH ×3 (08:13→21:43)
[2020-09-29] MEDS: Montelukast Sodium 10 MG TABLET PO (08:13)
[2020-09-29] MEDS: Mirtazapine 7.5 MG TABLET PO (08:13)
[2020-09-29] MEDS: Nicotine 14 MG PATCH.TD24 TRANSDERMA (08:13)
[2020-09-29] MEDS: Heparin Sodium,Porcine 5,000 UNIT/ML VIAL 5000 UNIT SUBCUT ×2 (09:47→21:42)
[2020-09-29] MEDS: Omeprazole 20 MG CAPSULE.DR PO (09:47)
[2020-09-29] MEDS: Cyclobenzaprine HCl 5 MG TABLET PO ×2 (09:47→21:42)
[2020-09-29] MEDS: Insulin Lispro 100 UNIT/ML 3 ML VIAL SUBCUT ×3 (11:29→21:43)
[2020-09-29 11:34] LABS: Glucose, Whole Blood 162 mg/dL (60-115)
--- NOTE | 2020-09-29 11:49 | P.PNIM_ITS ---
Subjective Subjective Date of Service: 09/29/20 Interval History: copd execerbation Review of Systems Patient still short of breath but improving as compared isn't to yesterday. Physical Exam Vital Signs: Vital Signs: Vital Signs Temp Pulse Resp BP Pulse Ox 09/29/20 08:00 97.7 F 83 18 138/65 98 09/29/20 03:49 97.8 F 90 18 131/59 L 97 09/28/20 23:18 97.5 F 82 18 120/53 L 98 09/28/20 20:56 98 F 93 18 145/68 H 99 09/28/20 19:43 95 19 130/49 L 97 09/28/20 18:32 119 H 26 H 152/64 H 09/28/20 18:25 104 H 16 153/58 H 98 09/28/20 16:34 122/63 09/28/20 15:44 156/140 H 97 09/28/20 15:42 38 H 09/28/20 15:40 98.1 F 105 H 38 H 97 Body Mass Index 25.0 Physical exam: Cvs: [id number], [id number] , no murmur res: diminshed breath sounds at bases , still has wheezing abd: no rebound or guarding ,nt, bs present. ext pulses present , no cyanosis neuro: axo3 , nonfocal. Objective Data Current Medications Generic Name Dose Route Start Last Admin Trade Name Freq PRN Reason Stop Dose Admin Acetaminophen 650 mg 09/29/20 09:12 Acetaminophen 325 Mg Tablet PO Q6H PRN Pain and Fever Albuterol/Ipratropium 3 ml 09/28/20 20:00 09/29/20 11:06 Albuterol/Iprat 2.5/0.5mg 3 Ml Ampul.Neb INHALE 3 ml RQ4H WHILE AWAKE MEHDI Administration Cyclobenzaprine HCl 5 mg 09/29/20 09:15 09/29/20 09:47 Cyclobenzaprine Hcl 5 Mg Tablet PO 5 mg BID MEHDI Administration Heparin Sodium (Porcine) 5,000 unit 09/28/20 22:00 09/29/20 09:47 Heparin Sodium,Porcine 5,000 Unit/Ml Vial SUBCUT 5,000 unit Q12H MEHDI Administration Azithromycin 500 mg/ Sodium 250 mls @ 125 mls/hr 09/28/20 19:00 09/28/20 21:48 Chloride IV Infused Q24H MEHDI Infusion Ibuprofen 400 mg 09/29/20 09:14 Ibuprofen 400 Mg Tablet PO Q6H PRN Pain and Fever Insulin Human Lispro 0 unit 09/28/20 21:00 09/29/20 11:29 Insulin Lispro 100 Unit/Ml 3 Ml Vial SUBCUT 2 unit QIDACHS MEHDI Administration Protocol Levothyroxine Sodium 112 mcg 09/28/20 21:01 09/29/20 08:13 Levothyroxine Sodium 112 Mcg Tablet PO 112 mcg DAILY MEHDI Administration Magnesium Hydroxide 30 ml 09/28/20 21:01 Milk Of Magnesia 30 Ml Oral.Susp PO DAILY PRN Constipation Methylprednisolone Sodium Succinate 40 mg 09/29/20 00:00 09/29/20 08:13 Methylprednisolone Sod Succ/Pf 40 Mg/Ml Vial IVPUSH 40 mg Q8H MEHDI Administration Mirtazapine 7.5 mg 09/29/20 09:00 09/29/20 08:13 Mirtazapine 7.5 Mg Tablet PO 7.5 mg DAILY MEHDI Administration Montelukast Sodium 10 mg 09/29/20 09:00 09/29/20 08:13 Montelukast Sodium 10 Mg Tablet PO 10 mg DAILY MEHDI Administration Nicotine 14 mg 09/28/20 17:45 09/29/20 08:13 Nicotine 14 Mg Patch.Td24 TRANSDERMA 14 mg DAILY MEHDI Administration Omeprazole 20 mg 09/29/20 09:30 09/29/20 09:47 Omeprazole 20 Mg Capsule.Dr PO 20 mg DAILY MEHDI Administration Sodium Chloride 3 ml 09/29/20 00:00 09/29/20 08:13 0.9 % Sodium Chloride Flush 3 Ml Syringe IVFLUSH 3 ml QSHIFT [facility] Administration Labs CBC & Chem 7: 09/29/20 06:11 09/29/20 06:11 Labs: Laboratory Results - last 24 hr 09/28/20 09/28/20 09/28/20 15:46 15:46 15:46 MCV 83.2 MCH 26.1 L MCHC 31.3 RDW 15.1 Plt Count 342 MPV 9.6 Immature Gran % (Auto) 0.4 Neut % (Auto) 94.8 H Lymph % (Auto) 3.2 L [place] % (Auto) 1.3 L Eos % (Auto) 0.1 Baso % (Auto) 0.2 Lymph # (Auto) 0.4 L [place] # (Auto) 0.2 Eos # (Auto) 0.0 Baso # (Auto) 0.0 Abs Immat Gran (auto) 0.05 H Absolute Neuts (auto) 10.9 H Absolute Nucleated RBC 0.000 Nucleated RBC % (auto) 0.0 Smear Tech's Comments VERIFIED PT INR APTT ABG pH ABG pCO2 ABG pO2 ABG HCO3 ABG O2 Saturation ABG Base Excess Oxygen Given Anion Gap 16 Estim Creat Clear Calc 66.7 Estimated GFR > 60 POC Glucose Random Glucose 200 H D Lactic Acid Lactic Acid Fup @ 2Hr Lactic Acid Fup @ 4Hr Calcium 8.2 L Total Bilirubin 0.6 Direct Bilirubin 0.2 AST 11 ALT 11 Alkaline Phosphatase 105 Troponin I High Sens 4.5 B-Natriuretic Peptide 36 Total Protein 6.4 L Albumin 4.0 Lipase 30 Urine Color Urine Appearance Urine pH Ur Specific [place] Urine Protein Urine Glucose (UA) Urine Ketones Urine Blood Urine Nitrite Ur Leukocyte Esterase Coronavirus (PCR) 09/28/20 09/28/20 09/28/20 15:46 15:46 15:53 MCV MCH MCHC RDW Plt Count MPV Immature Gran % (Auto) Neut % (Auto) Lymph % (Auto) [place] % (Auto) Eos % (Auto) Baso % (Auto) Lymph # (Auto) [place] # (Auto) Eos # (Auto) Baso # (Auto) Abs Immat Gran (auto) Absolute Neuts (auto) Absolute Nucleated RBC Nucleated RBC % (auto) Smear Tech's Comments PT 11.9 INR 1.0 APTT 32.7 ABG pH ABG pCO2 ABG pO2 ABG HCO3 ABG O2 Saturation ABG Base Excess Oxygen Given Anion Gap Estim Creat Clear Calc Estimated GFR POC Glucose Random Glucose Lactic Acid 4.8 H* Lactic Acid Fup @ 2Hr Lactic Acid Fup @ 4Hr Calcium Total Bilirubin Direct Bilirubin AST ALT Alkaline Phosphatase Troponin I High Sens B-Natriuretic Peptide Total Protein Albumin Lipase Urine Color Urine Appearance Urine pH Ur Specific [place] Urine Protein Urine Glucose (UA) Urine Ketones Urine Blood Urine Nitrite Ur Leukocyte Esterase Coronavirus (PCR) NEGATIVE 09/28/20 09/28/20 09/28/20 16:00 18:42 20:01 MCV MCH MCHC RDW Plt Count MPV Immature Gran % (Auto) Neut % (Auto) Lymph % (Auto) [place] % (Auto) Eos % (Auto) Baso % (Auto) Lymph # (Auto) [place] # (Auto) Eos # (Auto) Baso # (Auto) Abs Immat Gran (auto) Absolute Neuts (auto) Absolute Nucleated RBC Nucleated RBC % (auto) Smear Tech's Comments PT INR APTT ABG pH 7.38 ABG pCO2 35 ABG pO2 71 L ABG HCO3 20 L ABG O2 Saturation 94.1 ABG Base Excess -4.0 Oxygen Given ROOM AIR Anion Gap Estim Creat Clear Calc Estimated GFR POC Glucose 214 H Random Glucose Lactic Acid Lactic Acid Fup @ 2Hr 4.7 H* Lactic Acid Fup @ 4Hr Calcium Total Bilirubin Direct Bilirubin AST ALT Alkaline Phosphatase Troponin I High Sens B-Natriuretic Peptide Total Protein Albumin Lipase Urine Color Urine Appearance Urine pH Ur Specific [place] Urine Protein Urine Glucose (UA) Urine Ketones Urine Blood Urine Nitrite Ur Leukocyte Esterase Coronavirus (PCR) 09/28/20 09/28/20 09/28/20 20:04 21:09 21:31 MCV MCH MCHC RDW Plt Count MPV Immature Gran % (Auto) Neut % (Auto) Lymph % (Auto) [place] % (Auto) Eos % (Auto) Baso % (Auto) Lymph # (Auto) [place] # (Auto) Eos # (Auto) Baso # (Auto) Abs Immat Gran (auto) Absolute Neuts (auto) Absolute Nucleated RBC Nucleated RBC % (auto) Smear Tech's Comments PT INR APTT ABG pH ABG pCO2 ABG pO2 ABG HCO3 ABG O2 Saturation ABG Base Excess Oxygen Given Anion Gap Estim Creat Clear Calc Estimated GFR POC Glucose 197 H Random Glucose Lactic Acid Lactic Acid Fup @ 2Hr Lactic Acid Fup @ 4Hr 6.3 H* Calcium Total Bilirubin Direct Bilirubin AST ALT Alkaline Phosphatase Troponin I High Sens B-Natriuretic Peptide Total Protein Albumin Lipase Urine Color YELLOW Urine Appearance CLEAR Urine pH 6.5 Ur Specific [place] 1.015 Urine Protein NEG Urine Glucose (UA) 250 H Urine Ketones NEG Urine Blood NEG Urine Nitrite NEG Ur Leukocyte Esterase NEG Coronavirus (PCR) 09/29/20 09/29/20 09/29/20 06:11 06:11 07:43 MCV 83.9 MCH 25.6 L MCHC 30.5 L RDW 15.0 Plt Count 314 MPV 10.1 Immature Gran % (Auto) 0.4 Neut % (Auto) 93.4 H Lymph % (Auto) 4.6 L [place] % (Auto) 1.5 L Eos % (Auto) 0.0 Baso % (Auto) 0.1 Lymph # (Auto) 0.3 L [place] # (Auto) 0.1 Eos # (Auto) 0.0 Baso # (Auto) 0.0 Abs Immat Gran (auto) 0.03 Absolute Neuts (auto) 6.3 Absolute Nucleated RBC 0.000 Nucleated RBC % (auto) 0.0 Smear Tech's Comments VERIFIED PT INR APTT ABG pH ABG pCO2 ABG pO2 ABG HCO3 ABG O2 Saturation ABG Base Excess Oxygen Given Anion Gap 13 Estim Creat Clear Calc 80.6 Estimated GFR > 60 POC Glucose 144 H Random Glucose 161 H Lactic Acid Lactic Acid Fup @ 2Hr Lactic Acid Fup @ 4Hr Calcium 7.4 L Total Bilirubin Direct Bilirubin AST ALT Alkaline Phosphatase Troponin I High Sens B-Natriuretic Peptide Total Protein Albumin Lipase Urine Color Urine Appearance Urine pH Ur Specific [place] Urine Protein Urine Glucose (UA) Urine Ketones Urine Blood Urine Nitrite Ur Leukocyte Esterase Coronavirus (PCR) 09/29/20 11:23 MCV MCH MCHC RDW Plt Count MPV Immature Gran % (Auto) Neut % (Auto) Lymph % (Auto) [place] % (Auto) Eos % (Auto) Baso % (Auto) Lymph # (Auto) [place] # (Auto) Eos # (Auto) Baso # (Auto) Abs Immat Gran (auto) Absolute Neuts (auto) Absolute Nucleated RBC Nucleated RBC % (auto) Smear Tech's Comments PT INR APTT ABG pH ABG pCO2 ABG pO2 ABG HCO3 ABG O2 Saturation ABG Base Excess Oxygen Given Anion Gap Estim Creat Clear Calc Estimated GFR POC Glucose 162 H Random Glucose Lactic Acid Lactic Acid Fup @ 2Hr Lactic Acid Fup @ 4Hr Calcium Total Bilirubin Direct Bilirubin AST ALT Alkaline Phosphatase Troponin I High Sens B-Natriuretic Peptide Total Protein Albumin Lipase Urine Color Urine Appearance Urine pH Ur Specific [place] Urine Protein Urine Glucose (UA) Urine Ketones Urine Blood Urine Nitrite Ur Leukocyte Esterase Coronavirus (PCR) Progress Note: A&P (1) Bronchitis: Status: Acute Assessment and Plan: Assessment and plan arteaga: 1. Initially admitted for acute hypoxemic respiratory failure secondary to COPD exacerbation: Shortness of breath seems improving slowly Will continue nebs, steroids, azithromycin, oxygen titrate to keep saturation around 90% Kim test neg Monitor lactic acid-? Seems like probably related to nebs, metformin. Procalcitonin level pending Continue azithromycin 2. Diabetes: Continue to monitor fingerstick with sliding scale coverage, hold metformin for now. Diabetic diet 3. Tobacco dependence: Continue nicotine patch advised to swat quit smoking but he says he smoked he has quit smoking 5 days ago unclear. 4. History of hypothyroidism: Continue levothyroxine. 5: right lumber area pain: As per the patient patient is going to go for steroid injection out patiently for already scheduled for that. Will order pain medication arteaga ibuprofen and Flexeril DVT prophylaxis with subcu heparin. (2) Acute exacerbation of chronic obstructive airways disease: Status: Acute (3) Acidosis, lactic: Status: Acute Assessment and Plan:
[2020-09-29 12:00] VITALS: BP 119/49; PULSE 85; RESP 18; TEMP 36.8; O2SAT 95
[2020-09-29 12:10] LABS: Alanine Aminotransferase 11 U/L (0-40); Albumin Level 3.6 g/dL (3.5-5.0); Alkaline Phosphatase 90 U/L (39-117); Aspartate Amino Transferase 9 U/L (5-37); Bilirubin Direct 0.2 mg/dL (0.0-0.5); Bilirubin Total 0.2 mg/dL (0.0-1.0); Total Protein 5.7 g/dL (6.5-8.0)
[2020-09-29 12:36] LABS: Procalcitonin 0.19 ng/mL
[2020-09-29 16:00] VITALS: BP 131/57; PULSE 90; RESP 18; TEMP 36.4; O2SAT 98
[2020-09-29 16:31] LABS: Glucose, Whole Blood 171 mg/dL (60-115)
--- NOTE | 2020-09-29 16:33 | MHC.CM.PN ---
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 PT REPORTS HE LIVES WITH HIS GF AND IS INDEPENDENT WITH CARE. PT USES A CANE AND AQ WALKER DEPENDING ON HOW FAR HE IS GOING AND HOW HE IS FEELING. PT DENIES HAVING ANY COMMUNITY/HOME SERVICES. PT HAS A HCP ON FILE HE CONFIRMS CORRECT AND REPORTS HE SEES DR HERNANDEZ FOR PRIMARY CARE. IMM DELIVERED AND COPY PROVIDED CURRENT DC PLAN IS HOME WITH NO SERVICES FAMILY TO TRANSPORT
[2020-09-29] MEDS: Azithromycin 500 MG in 0.9 % Sodium Chloride 250 ML 125 MG IV (18:04)
[2020-09-29 20:00] VITALS: BP 118/55; PULSE 84; RESP 20; TEMP 36.4; O2SAT 96
[2020-09-29 21:32] LABS: Glucose, Whole Blood 213 mg/dL (60-115)
[2020-09-30] VITALS: BP 120/58; PULSE 73; RESP 20; TEMP 36.6; O2SAT 95
[2020-09-30] MEDS: 0.9 % Sodium Chloride Flush 3 ML SYRINGE IVFLUSH (01:20)
[2020-09-30 04:00] VITALS: BP 127/62; PULSE 79; RESP 20; TEMP 36.6; O2SAT 95
[2020-09-30] MEDS: Albuterol/Iprat 2.5/0.5MG 3 ML AMPUL.NEB INHALE ×2 (07:06→11:17)
[2020-09-30 07:50] LABS: Glucose, Whole Blood 272 mg/dL (60-115)
[2020-09-30 08:00] VITALS: BP 126/62; PULSE 88; RESP 20; O2SAT 97
[2020-09-30] MEDS: Cyclobenzaprine HCl 5 MG TABLET PO (08:13)
[2020-09-30] MEDS: Montelukast Sodium 10 MG TABLET PO (08:13)
[2020-09-30] MEDS: Heparin Sodium,Porcine 5,000 UNIT/ML VIAL 5000 UNIT SUBCUT (08:13)
[2020-09-30] MEDS: Omeprazole 20 MG CAPSULE.DR PO (08:13)
[2020-09-30] MEDS: Nicotine 14 MG PATCH.TD24 TRANSDERMA (08:13)
[2020-09-30] MEDS: Mirtazapine 7.5 MG TABLET PO (08:13)
[2020-09-30] MEDS: Levothyroxine Sodium 112 MCG TABLET PO (08:13)
[2020-09-30] MEDS: Insulin Lispro 100 UNIT/ML 3 ML VIAL SUBCUT (08:14)
--- NOTE | 2020-09-30 10:16 | PM.DS ---
DS: Providers Provider Date of admission: 09/28/20 17:39 Primary care physician: Unknown Physician DS: Diagnosis Discharge Diagnosis (1) Bronchitis: Status: Acute (2) Acute exacerbation of chronic obstructive airways disease: Status: Acute (3) Acidosis, lactic: Status: Acute DS: Summary Hospital Course Hospital Course: Hpi:74-year-old male who has history of COPD : Came to the hospital because shortness of breath, cough productive with on and off yellow sputum-he went to his the PCP and was taking antibiotic and prednisone as per patient he does not remember the name of the antibiotic though ,from last 2 days his shortness of breath was worsening so he decided to come to the hospital. In the ED patient was seen by ED physician and [id number] was given antibiotic arteaga Has W BC count elevated Chest x-ray clear After receiving above treatment from ED patient shortness of breath is slightly improving, now being admitted for COPD exacerbation. The patient denies any fever or chills or nausea vomiting or abdominal pain or dizziness or weakness or numbness or any urinary complaints. He denies any recent travel or any sick contact or any body sick around him. Hospital Course problem arteaga section: 1. Initially admitted for acute hypoxemic respiratory failure secondary to COPD exacerbation: Patient came with shortness of breath, started on nebs, steroids, azithromycin, oxygen Subsequently patient seems to be improved, blood culture also negative at 24 hours. Kim test negative. Lactic acidosis was thought to be related to stay nebs and metformin. Procalcitonin level 0.19 With above management patient seems to be improved and going home with p.o. steroids and p.o. azithromycin further management outpatient as per PCP 2: right lumber area pain: He says the pain improving but he has on and off pain similar from long time, he is already scheduled for outpatient steroid injection, is going to make that appointment, patient will continue his in nubutamone , further management outpatient as per PCP . Time Spent with Patient Time attestation: Total time spent providing and/or coordinating discharge services: Physical Exam Vital Signs: Vital Signs: Vital Signs Temp Pulse Resp BP Pulse Ox 09/30/20 08:00 88 20 126/62 97 09/30/20 04:00 98 F 79 20 127/62 95 09/30/20 00:00 97.9 F 73 20 120/58 L 95 09/29/20 20:00 97.5 F 84 20 118/55 L 96 09/29/20 16:00 97.5 F 90 18 131/57 L 98 09/29/20 12:00 98.2 F 85 18 119/49 L 95 Body Mass Index 25.0 Physical exam: Cvs: [id number], [id number] , no murmur res: clear to auscultation ,no rhonchii or wheezing abd: no rebound or guarding ,nt, bs present. ext pulses present , no cyanosis neuro: axo3 , nonfocal. DS: Data Data Completed and Pending Labs on day of discharge: Labs from last 24 hours 09/30/20 09/29/20 09/29/20 07:44 21:15 16:20 POC Glucose 272 H 213 H 171 H Total Bilirubin Direct Bilirubin AST ALT Alkaline Phosphatase Total Protein Albumin Procalcitonin 09/29/20 09/29/20 09/29/20 11:23 06:11 06:11 POC Glucose 162 H Total Bilirubin 0.2 Direct Bilirubin 0.2 AST 9 ALT 11 Alkaline Phosphatase 90 Total Protein 5.7 L Albumin 3.6 Procalcitonin 0.19 Preliminary micro results at discharge 09/28/20 15:51 Blood Culture - Preliminary Blood - Venous No growth after 24 hours. 09/28/20 15:47 Blood Culture - Preliminary Blood - Venous No growth after 24 hours. Discharge Plan Discharge Patient Disposition: Home, Self-Care Referrals: Physician,Unknown [Primary Care Provider] - Discharge Medications: New azithromycin 250 mg Tablet 250 mg PO Q24H Qty: 4 RF: 0 prednisone 20 mg tablet 40 mg PO DAILY Qty: 8 RF: 0 omeprazole 20 mg capsule,delayed release(DR/EC) 20 mg PO DAILY Qty: 30 RF: 0 Breo Ellipta 100-25 mcg/dose blister with device 1 inh inhalation Q24H Qty: 28 RF: 0 Continued metformin 500 mg tablet 500 mg PO DAILY RF: 0 montelukast 10 mg tablet 10 mg PO DAILY RF: 0 levothyroxine 112 mcg tablet 112 mcg PO QAM RF: 0 nabumetone 500 mg tablet 500 mg PO DAILY RF: 0 mirtazapine 7.5 mg tablet 7.5 mg PO DAILY RF: 0 albuterol sulfate 90 mcg/actuation HFA aerosol inhaler 90 mcg inhalation DAILY RF: 0 Held prednisone 10 mg tablet 10 mg PO DAILY RF: 0 Hold Instructions: Resume on 10/05/20. First complete prednisone 40 mg daily course for 5 days and then switch back to your usual prednisone dose 10 mg. Discharge Orders: Discharge Order (Routine); Ordered 09/30/20 Ordered By: Bob Nowak Diet: advance to your usual diet and diabetic diet Activity on Discharge: As tolerated Visit Report Forms: Patient Portal Discharge page Care Plan Goals: Patient came with COPD exacerbation-started on steroids IV, nebs, oxygen for supportive care: Patient subsequently improved and now saturating fine on room air and not in any short of breath. Going home with p.o. steroids and his baseline COPD medications. Health Concerns: As above. Plan of Treatment: As above.
--- NOTE | 2020-09-30 11:04 | MHC.CM.PN ---
Patient has been medically cleared for dc to home today, no services. Last IMM addressed yesterday.
[2020-09-30 11:41] LABS: Glucose, Whole Blood 87 mg/dL (60-115)
[2020-09-30] MEDS: Azithromycin 250 MG TABLET PO (12:04)
== END 2020-09-30 12:38 | disposition home or self-care (01) | DRG 190 ==
LOC: HO.ED 17:03 → HO.IMC 18:43
PROVIDERS: Admitting Provider Internal Medicine; Emergency Provider Emergency Medicine; Visit Provider Internal Medicine
DX: J44.1 Chronic obstructive pulmonary disease with (acute) exacerbation (principal); J96.01 Acute respiratory failure with hypoxia; E87.2 Acidosis; J20.9 Acute bronchitis, unspecified; K21.9 Gastro-esophageal reflux disease without esophagitis; E03.9 Hypothyroidism, unspecified; M19.90 Unspecified osteoarthritis, unspecified site; M81.0 Age-related osteoporosis without current pathological fracture; Z20.828 Contact with and (suspected) exposure to other viral communicable diseases; J44.0 Chronic obstructive pulmonary disease with (acute) lower respiratory infection; E11.9 Type 2 diabetes mellitus without complications; M54.5 Low back pain; F17.210 Nicotine dependence, cigarettes, uncomplicated; Z71.6 Tobacco abuse counseling; Z99.81 Dependence on supplemental oxygen; Z87.442 Personal history of urinary calculi; Z79.890 Hormone replacement therapy; Z79.899 Other long term (current) drug therapy
CPT/HCPCS: 36415; 71045; 80048; 80076; 81003; 82803; 82947; 83605; 83690; 83880; 84145; 84484; 85025; 85610; 85730; 87040; 93005; 96365; 96366; 96375; 99285; 99291; J0456; J1956; J2920; J2930; J3475; U0003

== ENCOUNTER → 2020-10-16 14:24 | Outpatient (BNVA) | payer MEDICARE, MEDICAID, SELFPAY | PROVIDERS: PCP Nurse Practitioner Family; Visit Provider Internal Medicine Pulmonary Disease | DX: J44.1 Chronic obstructive pulmonary disease with (acute) exacerbation (principal); R91.8 Other nonspecific abnormal finding of lung field; F17.200 Nicotine dependence, unspecified, uncomplicated; Z79.899 Other long term (current) drug therapy | CPT/HCPCS: 99212 ==

== ENCOUNTER 2020-10-27 14:00 | Inpatient (IN) | payer MEDICARE, MEDICAID, SELFPAY ==
[2020-10-27] VITALS (8 sets, daily range): BP systolic 133–151; BP diastolic 60–70; PULSE 73–101; RESP 18–29; TEMP 36.9; O2SAT 92–100; BMI 21.4
[2020-10-27] MEDS: Albuterol/Iprat 2.5/0.5MG 3 ML AMPUL.NEB INHALE (14:23)
[2020-10-27] MEDS: Albuterol Sulfate (0.083%) 2.5 MG/3 ML VIAL.NEB 5 MG INHALE ×3 (14:23→22:14)
--- NOTE | 2020-10-27 14:31 | ECG_ITS ---
Test Reason : ASTHMA Blood Pressure : / mmHG Vent. Rate : 076 BPM Atrial Rate : 076 BPM P-R Int : 114 ms QRS Dur : 084 ms QT Int : 340 ms P-R-T Axes : 084 080 083 degrees QTc Int : 382 ms Normal sinus rhythm with sinus arrhythmia Normal ECG When compared with ECG of 28-SEP-2020 16:06, Premature atrial complexes are no longer Present T wave amplitude has decreased in Anterior leads Referred By: Alhaji Johnson Electronically Signed By:EMILEE DO MD
--- NOTE | 2020-10-27 14:31 | XR_ITS ---
EXAMINATION: XR CHEST CLINICAL INFORMATION: Shortness of breath COMPARISON: Prior chest x-ray August 2020. CT chest August 2020. TECHNIQUE: Frontal view of the chest was obtained. FINDINGS: Calcified right apical pleural plaque and calcified granuloma left lower lobe unchanged. Lungs otherwise clear. Stable cardiomediastinal silhouette XR/XR chest 1V IMPRESSION: No acute disease
[2020-10-27 15:00] LABS: MANUAL DIFF FLAG NO
[2020-10-27 15:01] LABS: Basophils Percent Auto 0.5 % (0-2); Eosinophils Absolute Auto 0.5 X10*3/uL (0.0-0.4); Eosinophils Percent Auto 5.9 % (0-4); Hematocrit 37.7 % (42-52); Hemoglobin 11.4 g/dl (14.0-18.0); Imm Gran Abs Auto 0.02 X10*3/uL (0.00-0.03); Imm Gran Pct Auto 0.3 % (0.0-0.4); Lymphocytes Absolute Auto 1.6 X10*3/uL (1.2-4.9); Mean Corpuscular HGB Conc 30.2 g/dl (31.0-36.0); Mean Corpuscular Volume 82.7 fL (80-98); Mean Platelet Volume 9.8 fL (9.4-12.4); Monocytes Absolute Auto 0.5 X10*3/uL (0.1-1.2); Monocytes Percent Auto 6.9 % (2-11); Neutrophils Absolute Auto 5.2 X10*3/uL (2.0-8.3); Neutrophils Percent Auto 66.4 % (45-73); Platelet Count 358 X10*3/uL (160-400); Red Blood Count 4.56 X10*6/uL (4.60-5.80); Red Cell Distribution Width 15.1 % (11.0-16.0); White Blood Count 7.8 X10*3/uL (4.8-10.8)
[2020-10-27 15:27] LABS: Anion Gap 12 (12-20); Blood Urea Nitrogen 11 mg/dL (9-16); Calcium 8.5 mg/dL (8.4-10.2); Carbon Dioxide 30 mmol/L (22-29); Chloride 103 mmol/L (96-108); Creatinine Clr Calc Pharmacy 74.6; Estimated Glomerular Filt Rate > 60; Glucose Random 93 mg/dL (60-115); Potassium 4.3 mmol/l (3.3-5.1); Sodium 141 mmol/L (135-145)
[2020-10-27] MEDS: Magnesium Sulfate/H2O 2 GM/50 ML PIGGYBACK IV (15:37)
[2020-10-27] MEDS: methylPREDNISolone Sod Succ/PF 125 MG/2 ML VIAL IVPUSH (15:37)
[2020-10-27] MEDS: 0.9 % Sodium Chloride 1,000 ML 999 ML IVCONT (15:37)
--- NOTE | 2020-10-27 15:37 | ED_ITS ---
HPI - Asthma General Chief Complaint: Asthma Stated Complaint: ASTHMA Time Seen by Provider: 10/27/20 14:18 Source: patient Mode of arrival: ambulatory Limitations: no limitations History of Present Illness HPI Narrative: patient history of COPD/asthma complaining of increased shortness of breath for last 2 days using his nebulizing treatment without much relief feels similar to previous attacks. Patient denies any fever or any COVID contact lately no chest pain no leg swelling complaining of right knee pain b ecause of arthritis as in the past MD complaint: shortness of breath Onset (ago): day(s) (2) Severity: moderate Context: none known Associated symptoms: dry cough Asthma History: history of frequent attacks and history of prior ED visit Related Data Current Asthma Therapy: inhaled bronchodilator Home Medications Medication Instructions Recorded Confirmed albuterol sulfate 90 mcg INHALATION DAILY 09/06/20 09/28/20 levothyroxine 112 mcg PO QAM 09/28/20 09/28/20 metformin 500 mg PO DAILY 09/28/20 09/28/20 mirtazapine 7.5 mg PO DAILY 09/28/20 09/28/20 montelukast 10 mg PO DAILY 09/28/20 09/28/20 nabumetone 500 mg PO DAILY 09/28/20 09/28/20 prednisone 10 mg PO DAILY 09/28/20 09/28/20 Previous Rx's Medication Instructions Recorded azithromycin 250 mg PO Q24H #4 tab 09/30/20 fluticasone furoate-vilanterol 1 inh INHALATION Q24H #28 ea 09/30/20 [Breo Ellipta] omeprazole 20 mg PO DAILY #30 cap 09/30/20 prednisone 40 mg PO DAILY #8 tab 09/30/20 azithromycin 250 mg tablet See Rx Instructions PO .COMPLEX #6 10/16/20 tab Allergies Allergy/AdvReac Type Severity Reaction Status Date / Time shellfish derived Allergy Severe ANAPHYLAXIS Verified 10/16/20 14:26 [SHELLFISH DERIVED] pollen extracts [POLLEN] Allergy Intermediate RUNNING Verified 10/16/20 14:26 NOSE, WATERY EYES, SNEEZING varenicline [VARENICLINE] AdvReac Unknown PALPITATION Verified 10/16/20 14:26 S Review of Systems Review of Systems: REVIEW OF SYSTEMS: Pertinent positives and negatives are stated above in the history. GEN: no fevers, chills, fatigue HEENT: no nasal congestion, sore throat, ear pain NEURO: no headache, dizziness, focal weakness PULM: dry cough with shortness of breath CV: no chest pain, palpitations, LE edema ABD: no abdominal pain, nausea, vomiting, diarrhea : no dysuria, urgency, frequency SKIN: no rash ROS otherwise negative x 10 [facility] Past Medical History Medical History Asthma Cataract COPD (chronic obstructive pulmonary disease) Diabetes GERD (gastroesophageal reflux disease) Hypertension Hypothyroidism Osteoarthritis Osteoporosis Oxygen dependent Ureteral calculi Surgical History History of appendectomy Hx of cataract surgery Social History Social History Household Members: Spouse Housing: Apartment Alcohol intake: never Smoking Status: Current every day smoker Tobacco Type: Cigarette Second Hand Smoke Exposure: Yes Advance Directives: No Advance Directives Information Provided: Yes service: No Current occupational status: retired Physical Exam Vital Signs: Vital Signs: Last Vital Signs Temp 98.4 F 10/27/20 14:10 Pulse 92 10/27/20 14:10 Resp 29 H 10/27/20 14:10 BP 148/67 H 10/27/20 14:10 Pulse Ox 95 10/27/20 14:10 Body Mass Index 21.4 Appearance: Alert. Oriented X3. in moderate respiratory distress using accessory respiratory muscles Eyes: Pupils equal, round and reactive to light. ENT: Pharynx normal. Neck: Normal inspection. Neck supple. CVS: Normal heart rate and rhythm. Pulses normal. Respiratory: moderate respiratory distress with expiratory wheezing no rales tachypneic Abdomen: Soft and nontender. no organomegaly bowel sounds are present Skin: Skin warm and dry. Normal skin color. Normal skin turgor. Extremities: No lower extremity edema. Good range of movement diffuse tenderness right knee without any effusion Neuro: Oriented X 3. No motor deficit. No sensory deficit. Course Course Course Narrative: patient with asthma /COPD using nebulizing machine at home comes here frequently for worsening of asthma attack came here for similar episodes since yesterday at this time patient received 7.5 mg albuterol plus Atrovent and is feeling much better also received IV steroids and magnesium sulfate patient is still complaining of shortness of breath saturating 99% at room air will give him another albuterol 5 mg treatment. Patient is on prednisone 10 mg daily at home, plan to discharge him home x-ray is negative MDM - Asthma Lab Data Result diagrams: 10/27/20 14:49 10/27/20 14:49 Labs: Lab Results 10/27/20 10/27/20 Range/Units 14:49 14:49 WBC 7.8 (4.8-10.8) X10*3/uL RBC 4.56 L (4.60-5.80) X10*6/uL Hgb 11.4 L (14.0-18.0) g/dl Hct 37.7 L (42-52) % MCV 82.7 (80-98) fL MCH 25.0 L (27.0-33.0) pg MCHC 30.2 L (31.0-36.0) g/dl RDW 15.1 (11.0-16.0) % Plt Count 358 (160-400) X10*3/uL MPV 9.8 (9.4-12.4) fL Immature Gran % (Auto) 0.3 (0.0-0.4) % Neut % (Auto) 66.4 (45-73) % Lymph % (Auto) 20.0 (20-40) % [place] % (Auto) 6.9 (2-11) % Eos % (Auto) 5.9 H (0-4) % Baso % (Auto) 0.5 (0-2) % Lymph # (Auto) 1.6 (1.2-4.9) X10*3/uL [place] # (Auto) 0.5 (0.1-1.2) X10*3/uL Eos # (Auto) 0.5 H (0.0-0.4) X10*3/uL Baso # (Auto) 0.0 (0.0-0.2) X10*3/uL Abs Immat Gran (auto) 0.02 (0.00-0.03) X10*3/uL Absolute Neuts (auto) 5.2 (2.0-8.3) X10*3/uL Absolute Nucleated RBC 0.000 (0.0-0.012) X10*3/uL Nucleated RBC % (auto) 0.0 (0.0-0.2) /100WBC Sodium 141 (135-145) mmol/L Potassium 4.3 (3.3-5.1) mmol/l Chloride 103 (96-108) mmol/L Carbon Dioxide 30 H (22-29) mmol/L Anion Gap 12 (12-20) BUN 11 (9-16) mg/dL Creatinine 0.74 (0.5-1.4) mg/dL Estim Creat Clear Calc 74.6 Estimated GFR > 60 Random Glucose 93 D (60-115) mg/dL Calcium 8.5 D (8.4-10.2) mg/dL Discharge Plan Discharge Prescriptions: No Action metformin 500 mg tablet 500 mg PO DAILY RF: 0 prednisone 10 mg tablet 10 mg PO DAILY RF: 0 Hold Instructions: Resume on 10/05/20. First complete prednisone 40 mg daily course for 5 days and then switch back to your usual prednisone dose 10 mg. montelukast 10 mg tablet 10 mg PO DAILY RF: 0 levothyroxine 112 mcg tablet 112 mcg PO QAM RF: 0 nabumetone 500 mg tablet 500 mg PO DAILY RF: 0 mirtazapine 7.5 mg tablet 7.5 mg PO DAILY RF: 0 azithromycin 250 mg Tablet 250 mg PO Q24H Qty: 4 RF: 0 prednisone 20 mg tablet 40 mg PO DAILY Qty: 8 RF: 0 omeprazole 20 mg capsule,delayed release(DR/EC) 20 mg PO DAILY Qty: 30 RF: 0 Breo Ellipta 100-25 mcg/dose blister with device 1 inh inhalation Q24H Qty: 28 RF: 0 albuterol sulfate 90 mcg/actuation HFA aerosol inhaler 90 mcg inhalation DAILY RF: 0 azithromycin 250 mg tablet See Rx Instructions PO .COMPLEX Qty: 6 RF: 0
[2020-10-27 17:17] LABS: Influenza A PCR NEGATIVE (Negative); Influenza B PCR NEGATIVE (Negative); Resp Syncy Virus RNA Qual PCR NEGATIVE (Negative); SARS COV2 PCR INHOUSE POSITIVE (Negative)
--- NOTE | 2020-10-27 21:13 | ED.ASTHMA ---
HPI - Asthma General Chief Complaint: Asthma Stated Complaint: ASTHMA Time Seen by Provider: 10/27/20 14:18 Source: patient Mode of arrival: ambulatory Limitations: no limitations History of Present Illness Severity: moderate Context: none known Associated symptoms: dry cough Related Data Current Asthma Therapy: inhaled bronchodilator Home Medications Medication Instructions Recorded Confirmed albuterol sulfate 90 mcg INHALATION DAILY 09/06/20 09/28/20 levothyroxine 112 mcg PO QAM 09/28/20 09/28/20 metformin 500 mg PO DAILY 09/28/20 09/28/20 mirtazapine 7.5 mg PO DAILY 09/28/20 09/28/20 montelukast 10 mg PO DAILY 09/28/20 09/28/20 nabumetone 500 mg PO DAILY 09/28/20 09/28/20 prednisone 10 mg PO DAILY 09/28/20 09/28/20 Previous Rx's Medication Instructions Recorded azithromycin 250 mg PO Q24H #4 tab 09/30/20 fluticasone furoate-vilanterol 1 inh INHALATION Q24H #28 ea 09/30/20 [Breo Ellipta] omeprazole 20 mg PO DAILY #30 cap 09/30/20 prednisone 40 mg PO DAILY #8 tab 09/30/20 azithromycin 250 mg tablet See Rx Instructions PO .COMPLEX #6 10/16/20 tab Allergies Allergy/AdvReac Type Severity Reaction Status Date / Time shellfish derived Allergy Severe ANAPHYLAXIS Verified 10/16/20 14:26 [SHELLFISH DERIVED] pollen extracts [POLLEN] Allergy Intermediate RUNNING Verified 10/16/20 14:26 NOSE, WATERY EYES, SNEEZING varenicline [VARENICLINE] AdvReac Unknown PALPITATION Verified 10/16/20 14:26 S [facility] Past Medical History Medical History Asthma Cataract COPD (chronic obstructive pulmonary disease) Diabetes GERD (gastroesophageal reflux disease) Hypertension Hypothyroidism Osteoarthritis Osteoporosis Oxygen dependent Ureteral calculi Surgical History History of appendectomy Hx of cataract surgery Social History Social History Household Members: Spouse Housing: Apartment Alcohol intake: never Smoking Status: Current every day smoker Tobacco Type: Cigarette Second Hand Smoke Exposure: Yes Advance Directives: No Advance Directives Information Provided: Yes service: No Current occupational status: retired Physical Exam Vital Signs: Vital Signs: Last Vital Signs Temp 98.4 F 10/27/20 14:10 Pulse 82 10/27/20 20:23 Resp 29 H 10/27/20 14:10 BP 151/70 H 10/27/20 20:23 Pulse Ox 95 10/27/20 14:10 Body Mass Index 21.4 MDM - Asthma Lab Data Result diagrams: 10/27/20 14:49 10/27/20 14:49 Labs: Lab Results 10/27/20 10/27/20 10/27/20 Range/Units 14:49 14:49 16:33 WBC 7.8 (4.8-10.8) X10*3/uL RBC 4.56 L (4.60-5.80) X10*6/uL Hgb 11.4 L (14.0-18.0) g/dl Hct 37.7 L (42-52) % MCV 82.7 (80-98) fL MCH 25.0 L (27.0-33.0) pg MCHC 30.2 L (31.0-36.0) g/dl RDW 15.1 (11.0-16.0) % Plt Count 358 (160-400) X10*3/uL MPV 9.8 (9.4-12.4) fL Immature Gran % (Auto) 0.3 (0.0-0.4) % Neut % (Auto) 66.4 (45-73) % Lymph % (Auto) 20.0 (20-40) % [place] % (Auto) 6.9 (2-11) % Eos % (Auto) 5.9 H (0-4) % Baso % (Auto) 0.5 (0-2) % Lymph # (Auto) 1.6 (1.2-4.9) X10*3/uL [place] # (Auto) 0.5 (0.1-1.2) X10*3/uL Eos # (Auto) 0.5 H (0.0-0.4) X10*3/uL Baso # (Auto) 0.0 (0.0-0.2) X10*3/uL Abs Immat Gran (auto) 0.02 (0.00-0.03) X10*3/uL Absolute Neuts (auto) 5.2 (2.0-8.3) X10*3/uL Absolute Nucleated RBC 0.000 (0.0-0.012) X10*3/uL Nucleated RBC % (auto) 0.0 (0.0-0.2) /100WBC Sodium 141 (135-145) mmol/L Potassium 4.3 (3.3-5.1) mmol/l Chloride 103 (96-108) mmol/L Carbon Dioxide 30 H (22-29) mmol/L Anion Gap 12 (12-20) BUN 11 (9-16) mg/dL Creatinine 0.74 (0.5-1.4) mg/dL Estim Creat Clear Calc 74.6 Estimated GFR > 60 Random Glucose 93 D (60-115) mg/dL Calcium 8.5 D (8.4-10.2) mg/dL Coronavirus (PCR) POSITIVE A (Negative) Influenza Type A (PCR) NEGATIVE (Negative) Influenza Type B (PCR) NEGATIVE (Negative) RSV RNA Qual (PCR) NEGATIVE (Negative) Discharge Plan Discharge Clinical Impression: Asthma with acute exacerbation Patient Disposition: Home, Self-Care Instructions: Asthma (ED) Prescriptions: No Action metformin 500 mg tablet 500 mg PO DAILY RF: 0 prednisone 10 mg tablet 10 mg PO DAILY RF: 0 Hold Instructions: Resume on 10/05/20. First complete prednisone 40 mg daily course for 5 days and then switch back to your usual prednisone dose 10 mg. montelukast 10 mg tablet 10 mg PO DAILY RF: 0 levothyroxine 112 mcg tablet 112 mcg PO QAM RF: 0 nabumetone 500 mg tablet 500 mg PO DAILY RF: 0 mirtazapine 7.5 mg tablet 7.5 mg PO DAILY RF: 0 azithromycin 250 mg Tablet 250 mg PO Q24H Qty: 4 RF: 0 prednisone 20 mg tablet 40 mg PO DAILY Qty: 8 RF: 0 omeprazole 20 mg capsule,delayed release(DR/EC) 20 mg PO DAILY Qty: 30 RF: 0 Breo Ellipta 100-25 mcg/dose blister with device 1 inh inhalation Q24H Qty: 28 RF: 0 albuterol sulfate 90 mcg/actuation HFA aerosol inhaler 90 mcg inhalation DAILY RF: 0 azithromycin 250 mg tablet See Rx Instructions PO .COMPLEX Qty: 6 RF: 0
--- NOTE | 2020-10-27 21:51 | PC.NURSE ---
RT at bedside for treatment. Pt aware of plan to DC home.
--- NOTE | 2020-10-27 21:56 | PC.NURSE ---
This RN scrolling through pts labs, pt found to be Covid +, treating engineer Verna quevedo. VSS.
--- NOTE | 2020-10-27 22:05 | PC.NURSE ---
Pt found ambulating in room, with a steady gait, using the urinal without difficulty.
--- NOTE | 2020-10-27 23:05 | PM.IMHP ---
History of Present Illness Date of Service: 10/27/20 Chief Complaint: SOB 74 y/o male with an extensive PMHX who presented from home due to SOB. Per history provided by the patient, for the past 2 days has been having worsening SOB associated with a dry cough. Denies any chest pain, nausea, vomiting, fever, sick contacts or recent travel. Initial vitals positive for tachypnea, tachycardia, no evidence of fever, CXR clear but covid swab positive for infection. Patient was placed on isolation. Despite several doses of nebulizer and one dose of solumedrol, patient continues to report difficulty breathing. Oxygen saturation at present is 100% on nasal cannula and 95-96% on room air. Wheezes diffusely identified on exam. Given persistent symptoms decision for admission was given. Patient was seen and examined at the bedside, laying down in bed in no acute distress. ROS as above otherwise negative. Physical exam positive for diffuse wheezes, no rales or ronchi. PMHX: Asthma, Smoker, Hypothyroidism, DM and psychotic disorder PSx: none Toxic habits: Smoker, no hx of alcohol abuse, or IVDA Review of Systems Cardiovascular: Cardiovascular: Reports dyspnea Respiratory: Respiratory: Reports cough and Reports dyspnea [facility] Medical History (Updated 10/27/20 @ 23:15 by Bárbara Norris MD) Asthma Cataract COPD (chronic obstructive pulmonary disease) Diabetes GERD (gastroesophageal reflux disease) Hypertension Hypothyroidism Osteoarthritis Osteoporosis Oxygen dependent Ureteral calculi Functional capacity: independent ambulation Surgical History History of appendectomy Hx of cataract surgery Social History Household Members: Spouse Housing: Apartment Alcohol intake: never Smoking Status: Current every day smoker Tobacco Type: Cigarette Second Hand Smoke Exposure: Yes Advance Directives: No Advance Directives Information Provided: Yes service: No Current occupational status: retired Meds Allergies Allergy/AdvReac Type Severity Reaction Status Date / Time shellfish derived Allergy Severe ANAPHYLAXIS Verified 10/16/20 14:26 [SHELLFISH DERIVED] pollen extracts [POLLEN] Allergy Intermediate RUNNING Verified 10/16/20 14:26 NOSE, WATERY EYES, SNEEZING varenicline [VARENICLINE] AdvReac Unknown PALPITATION Verified 10/16/20 14:26 S Home Medications Medication Instructions Recorded Confirmed Type albuterol sulfate 90 mcg INHALATION DAILY 09/06/20 09/28/20 History levothyroxine 112 mcg PO QAM 09/28/20 09/28/20 History metformin 500 mg PO DAILY 09/28/20 09/28/20 History mirtazapine 7.5 mg PO DAILY 09/28/20 09/28/20 History montelukast 10 mg PO DAILY 09/28/20 09/28/20 History nabumetone 500 mg PO DAILY 09/28/20 09/28/20 History prednisone 10 mg PO DAILY 09/28/20 09/28/20 History Physical Exam Vital Signs and Narrative: Vital Signs: Last Vital Signs Temp 98.4 F 10/27/20 14:10 Pulse 95 10/27/20 22:15 Resp 26 H 10/27/20 21:56 BP 151/70 H 10/27/20 20:23 Pulse Ox 95 10/27/20 21:56 Body Mass Index 21.4 Const: General: cooperative, comfortable and no acute distress Orientation/consciousness: oriented to person, oriented to place and oriented to time HENMT: Head: Yes normal to inspection Eyes: General: appearance normal, both eyes and all related structures Neck: Yes normal visual inspection Chest: Chest palpation & inspection: normal inspection of the chest Resp: Effort & Inspection: Actively coughing and other (wheezes) Cardio: Jugular venous distension: no JVD Rate: regular rate Rhythm: regular rhythm Heart sounds: S1 normal heart sound present and S2 normal heart sound present GI: Inspection: Yes normal to inspection Skin: General skin exam: no rashes or lesions noted Neuro: General: oriented to person, oriented to place and oriented to time Cognition (Neuro): normal cognition Extrem: General: Yes normal to inspection Results Labs CBC and Chem 7: 10/27/20 14:49 10/27/20 14:49 Labs: Laboratory Results - last 24 hr 10/27/20 10/27/20 10/27/20 14:49 14:49 16:33 MCV 82.7 MCH 25.0 L MCHC 30.2 L RDW 15.1 Plt Count 358 MPV 9.8 Immature Gran % (Auto) 0.3 Neut % (Auto) 66.4 Lymph % (Auto) 20.0 [place] % (Auto) 6.9 Eos % (Auto) 5.9 H Baso % (Auto) 0.5 Lymph # (Auto) 1.6 [place] # (Auto) 0.5 Eos # (Auto) 0.5 H Baso # (Auto) 0.0 Abs Immat Gran (auto) 0.02 Absolute Neuts (auto) 5.2 Absolute Nucleated RBC 0.000 Nucleated RBC % (auto) 0.0 Anion Gap 12 Estim Creat Clear Calc 74.6 Estimated GFR > 60 Random Glucose 93 D Calcium 8.5 D Coronavirus (PCR) POSITIVE A Influenza Type A (PCR) NEGATIVE Influenza Type B (PCR) NEGATIVE RSV RNA Qual (PCR) NEGATIVE Imaging Radiologist's Impressions: Impressions Chest X-Ray 10/27/20 14:31 IMPRESSION: No acute disease Assessment and Plan (1) Asthma with acute exacerbation: Qualifiers: Asthma persistence: unspecified Asthma severity: unspecified severity Qualified Code(s): J45.901 - Unspecified asthma with (acute) exacerbation Status: Acute Continue with IV solumedrol for now and taper steroids as tolerated Continue with O2 therapy and taper off as tolerated Isolation as of now due to covid Sepsis criteria met given tachycardia, tachypnea and source of infection Will continue with rocephin for gram neg coverage Infectious disease consult (2) Psychotic disorder: Status: Acute continue with home meds as ordered (3) Diabetes: Status: Acute Insulin regimen as ordered (4) Hypothyroidism: Status: Acute continue with levothyroxine home dose
--- NOTE | 2020-10-27 23:23 | PC.NURSE ---
Pt sleeping soundly in bed at this time, VSS, continue to monitor.
--- NOTE | 2020-10-28 01:04 | PC.NURSE ---
Report given to TOSIN COLLADO. Pt being prepared for transport.
[2020-10-28] MEDS: 0.9 % Sodium Chloride Flush 3 ML SYRINGE IVFLUSH ×5 (02:27→21:31)
[2020-10-28 02:50] VITALS: BP 140/68; PULSE 93; RESP 22; TEMP 36.5; O2SAT 99
[2020-10-28] MEDS: Acetaminophen 325 MG TABLET 650 MG PO (03:21)
[2020-10-28 06:23] LABS: MANUAL DIFF FLAG NO
[2020-10-28] MEDS: Heparin Sodium,Porcine 5,000 UNIT/ML VIAL 5000 UNIT SUBCUT ×3 (06:25→21:28)
[2020-10-28] MEDS: cefTRIAXone sodium 1 GM in 0.9 % Sodium Chloride 50 ML IV (06:25)
[2020-10-28] MEDS: Omeprazole 20 MG CAPSULE.DR PO (06:26)
[2020-10-28] MEDS: Levothyroxine Sodium 112 MCG TABLET PO (06:26)
[2020-10-28 06:46] LABS: Basophils Percent Auto 0.5 % (0-2); Eosinophils Absolute Auto 0.5 X10*3/uL (0.0-0.4); Eosinophils Percent Auto 8.3 % (0-4); Hematocrit 33.9 % (42-52); Hemoglobin 10.5 g/dl (14.0-18.0); Imm Gran Abs Auto 0.01 X10*3/uL (0.00-0.03); Imm Gran Pct Auto 0.2 % (0.0-0.4); Lymphocytes Absolute Auto 1.4 X10*3/uL (1.2-4.9); Lymphocytes Percent Auto 23.5 % (20-40); Mean Corpuscular Hemoglobin 25.5 pg (27.0-33.0); Mean Corpuscular Volume 82.3 fL (80-98); Mean Platelet Volume 10.2 fL (9.4-12.4); Monocytes Absolute Auto 0.5 X10*3/uL (0.1-1.2); Monocytes Percent Auto 8.2 % (2-11); Neutrophils Absolute Auto 3.6 X10*3/uL (2.0-8.3); Neutrophils Percent Auto 59.3 % (45-73); Platelet Count 280 X10*3/uL (160-400); Red Blood Count 4.12 X10*6/uL (4.60-5.80); Red Cell Distribution Width 14.9 % (11.0-16.0); White Blood Count 6.1 X10*3/uL (4.8-10.8)
[2020-10-28 06:59] LABS: Anion Gap 12 (12-20); Blood Urea Nitrogen 8 mg/dL (9-16); Calcium 7.9 mg/dL (8.4-10.2); Carbon Dioxide 27 mmol/L (22-29); Chloride 104 mmol/L (96-108); Creatinine Clr Calc Pharmacy 81.2; Estimated Glomerular Filt Rate > 60; Glucose Random 127 mg/dL (60-115); Potassium 3.8 mmol/l (3.3-5.1); Sodium 139 mmol/L (135-145)
[2020-10-28] MEDS: Fluticasone/Vilanterol 100/25 BLST.W.DEV 1 PUFF INHALE (07:30)
[2020-10-28 07:33] VITALS: PULSE 100; O2SAT 96
[2020-10-28 07:51] LABS: Glucose, Whole Blood 95 mg/dL (60-115)
[2020-10-28 08:00] VITALS: BP 148/69; PULSE 80; RESP 18; TEMP 36.7; O2SAT 98
[2020-10-28] MEDS: dexAMETHasone sod phosphate 4 MG/ML VIAL 6 MG IVPUSH (11:04)
[2020-10-28 11:30] VITALS: BP 142/65; PULSE 67; RESP 18; TEMP 36.6; O2SAT 99
[2020-10-28 11:44] LABS: Glucose, Whole Blood 132 mg/dL (60-115)
--- NOTE | 2020-10-28 13:00 | HO.PM.IMPN ---
Subjective Subjective Date of Service: 10/28/20 Interval History: seen and examined reports breathing slightly better, intermittently productive cough no other issues ROS General - no fevers or chills Cardiovascular - no chest pain Respiratory - +sob, +cough Abdominal- no abdominal pain, nausea, vomiting, diarrhea Physical Exam Vital Signs: Vital Signs: Last Vital Signs Temp 97.8 F 10/28/20 11:30 Pulse 67 10/28/20 11:30 Resp 18 10/28/20 11:30 BP 142/65 H 10/28/20 11:30 Pulse Ox 99 10/28/20 11:30 Body Mass Index 21.4 General - no acute distress, appears comfortable Cardiovascular - regular rate and rhythm, S1-S2 Lungs - dim sounds, no distress Abdomen - soft, nontender, no rebound or guarding Extremities - no edema bilaterally Neuro - awake and alert, no focal deficits Objective Data Current Medications Generic Name Dose Route Start Last Admin Trade Name Freq PRN Reason Stop Dose Admin Albuterol Sulfate 2 puff 10/28/20 09:00 10/28/20 07:37 Albuterol Sulfate 90 Mcg 8 Gm Inhaler INHALE Not Given DAILY MEHDI Albuterol Sulfate 1.25 mg 10/28/20 02:01 Albuterol Sulfate (0.042%) 1.25 Mg/3 Ml Vial.Neb INHALE RQ6H PRN Shortness of Breath Dexamethasone Sodium Phosphate 6 mg 10/28/20 10:00 10/28/20 11:04 Dexamethasone Sod Phosphate 4 Mg/Ml Vial IVPUSH 11/06/20 09:01 6 mg DAILY MEHDI Administration Fluticasone/Vilanterol 1 puff 10/27/20 23:45 10/28/20 07:30 Fluticasone/Vilanterol 100/25 Blst.W.Dev INHALE 1 puff DAILY MEHDI Administration Heparin Sodium (Porcine) 5,000 unit 10/28/20 06:00 10/28/20 06:25 Heparin Sodium,Porcine 5,000 Unit/Ml Vial SUBCUT 5,000 unit Q8H MEHDI Administration Insulin Human Lispro 0 unit 10/28/20 07:30 10/28/20 08:30 Insulin Lispro 100 Unit/Ml 3 Ml Vial SUBCUT 10/28/20 23:23 Not Given QIDACHS [facility] Protocol Levothyroxine Sodium 112 mcg 10/27/20 23:45 10/28/20 06:26 Levothyroxine Sodium 112 Mcg Tablet PO 112 mcg DAILY@0630 MEHDI Administration Omeprazole 20 mg 10/28/20 06:30 10/28/20 06:26 Omeprazole 20 Mg Capsule.Dr PO 20 mg DAILY@0630 MEHDI Administration Sodium Chloride 3 ml 10/28/20 02:01 10/28/20 08:30 0.9 % Sodium Chloride Flush 3 Ml Syringe IVFLUSH 3 ml QSHIFT MEHDI Administration Sodium Chloride 3 ml 10/28/20 02:01 10/28/20 08:30 0.9 % Sodium Chloride Flush 3 Ml Syringe IVFLUSH Not Given QSHIFT MEHDI Labs CBC & Chem 7: 10/28/20 05:33 10/28/20 05:33 Assessment and Plan (1) COVID-19: Status: Acute Assessment and Plan: This is a 74 yo M with a known history of COPD/asthma with frequent hospitalizations relating to this who is admitted for: 1. Asthma/COPD exacerbation secondary to COVID 19 no hypoxia, does not need O2 at this time change solu-medrol to decadron 6 mg, day 12/08 stop antibiotics, no evidence of bacterial pneumonia 2. DM hold po meds use sliding scale 3. Hypothyroid continue synthroid Full Code DVT pptx, heparin
--- NOTE | 2020-10-28 13:13 | MHC.CM.PN ---
IMM 10/28/20 MALE 74 DX ASTHMA COVID+. HE LIVES WITH HIS . HE USES A CANE. HE IS INDEPENDENT ADLS. REQUESTED COPY HCP. [facility] NO SERVICES FAMILY WILL TRANSPORT.
[2020-10-28 14:24] LABS: Magnesium 2.2 mg/dL (1.6-2.6)
[2020-10-28 16:00] VITALS: BP 129/66; PULSE 70; RESP 18; TEMP 37.1; O2SAT 98
--- NOTE | 2020-10-28 16:28 | P.CNID_ITS ---
History of Present Illness Data of Consult Service Date: 10/28/20 Requesting physician: Miguel Mcmahon Primary Care Provider: Unknown Physician HPI Reason for consult: cough Patient comes in with weakness,dry cough and fatigue He is positive COVID,was negative September 26 He was on 1 liter oxygen,started on steroids and now 98% on RA Review of Systems Review of Systems: Yes all other systems are reviewed and are negative FORMERLY [facility], [facility] Past Medical History Medical History Asthma Cataract COPD (chronic obstructive pulmonary disease) Diabetes GERD (gastroesophageal reflux disease) Hypertension Hypothyroidism Osteoarthritis Osteoporosis Oxygen dependent Ureteral calculi Functional capacity: independent ambulation Surgical History Surgical History History of appendectomy Hx of cataract surgery Social History Social History Household Members: Spouse Housing: House Do you presently have visiting nurse or other home services: No Alcohol intake: never Smoking Status: Current every day smoker Tobacco Type: Cigarette Packs Per Day: 0.5 Cigarettes Per Day: 10.0 Smoked in Last 30 Days: Yes Patient Interested in Nicotine Replacement: Yes Second Hand Smoke Exposure: Yes Use of substances other than those prescribed or required for medical reasons: No Have you been hit, kicked, punched, or otherwise hurt by someone within the past year? If so, by whom?: No Do you feel safe in your current relationship?: Yes Is there a partner from a previous relationship who is making you feel unsafe now?: No Are you made to feel afraid or neglected: No Advance Directives: No Advance Directives Information Provided: Yes Do you have thoughts of harming others: None Do you have a plan to hurt others: No Plan Recently lost weight without trying: No service: No Current occupational status: retired Meds Allergies Allergy/AdvReac Type Severity Reaction Status Date / Time shellfish derived Allergy Severe ANAPHYLAXIS Verified 10/16/20 14:26 [SHELLFISH DERIVED] pollen extracts [POLLEN] Allergy Intermediate RUNNING Verified 10/16/20 14:26 NOSE, WATERY EYES, SNEEZING varenicline [VARENICLINE] AdvReac Unknown PALPITATION Verified 10/16/20 14:26 S Home Medications Medication Instructions Recorded Confirmed Type albuterol sulfate 90 mcg INHALATION DAILY 09/06/20 10/27/20 History levothyroxine 112 mcg PO QAM 09/28/20 10/27/20 History metformin 500 mg PO DAILY 09/28/20 10/27/20 History montelukast 10 mg PO DAILY 09/28/20 10/27/20 History prednisone 10 mg PO DAILY 09/28/20 10/27/20 History Physical Exam Vital Signs: Vital Signs: Last Vital Signs Temp 98.8 F 10/28/20 16:00 Pulse 70 10/28/20 16:00 Resp 18 10/28/20 16:00 BP 129/66 10/28/20 16:00 Pulse Ox 98 10/28/20 16:00 Body Mass Index 21.4 Const: General: cooperative HENMT: Head: Yes normal to inspection Eyes: General: appearance normal, both eyes and all related structures Resp: Effort & Inspection: normal respiratory effort Cardio: Rate: regular rate Rhythm: regular rhythm GI: Palpation (GI): nontender Skin: General skin exam: no rashes or lesions noted Neuro: Other: alert Assessment and Plan (1) COVID-19: Problem details: He is doing well has received steroids He is now on room air Status: Acute Continue Dexamethasone as doing Would not give Remdesivir,no need (2) Psychotic disorder: Status: Acute Results Labs CBC & Chem 7: 10/28/20 05:33 10/28/20 05:33 Labs: Short CBC 10/28/20 Range/Units 05:33 WBC 6.1 (4.8-10.8) X10*3/uL Hgb 10.5 L (14.0-18.0) g/dl Hct 33.9 L (42-52) % Plt Count 280 (160-400) X10*3/uL BMP 10/28/20 05:33 Sodium 139 Potassium 3.8 Chloride 104 Carbon Dioxide 27 BUN 8 L Creatinine 0.68 Calcium 7.9 L D
[2020-10-28 16:54] LABS: Glucose, Whole Blood 153 mg/dL (60-115)
[2020-10-28] MEDS: Insulin Lispro 100 UNIT/ML 3 ML VIAL SUBCUT ×2 (17:06→21:28)
[2020-10-28 19:23] VITALS: BP 133/61; PULSE 68; RESP 20; TEMP 36.7; O2SAT 96
--- NOTE | 2020-10-28 19:53 | PC.NURSE ---
P: Patient had a 4 beat of Vtach, asymptomatic I: Patient assessed, vss, Dr. Mcmahon notified. Magnesium level and Potassium po ordered. E: Will continue to monitor.
[2020-10-28 20:36] LABS: Glucose, Whole Blood 168 mg/dL (60-115)
[2020-10-29] VITALS: BP 124/59; PULSE 65; RESP 16; TEMP 36.8; O2SAT 96
[2020-10-29] MEDS: 0.9 % Sodium Chloride Flush 3 ML SYRINGE IVFLUSH ×4 (01:24→08:23)
[2020-10-29 03:29] VITALS: BP 133/56; PULSE 61; RESP 15; TEMP 36.5; O2SAT 95
[2020-10-29] MEDS: Heparin Sodium,Porcine 5,000 UNIT/ML VIAL 5000 UNIT SUBCUT (05:30)
[2020-10-29] MEDS: Omeprazole 20 MG CAPSULE.DR PO (05:30)
[2020-10-29] MEDS: Levothyroxine Sodium 112 MCG TABLET PO (05:30)
[2020-10-29 06:49] LABS: D Dimer 749 NG/ML
[2020-10-29 06:51] LABS: Hematocrit 34.6 % (42-52); Hemoglobin 10.8 g/dl (14.0-18.0); Mean Corpuscular HGB Conc 31.2 g/dl (31.0-36.0); Mean Corpuscular Hemoglobin 25.2 pg (27.0-33.0); Mean Corpuscular Volume 80.8 fL (80-98); Mean Platelet Volume 10.4 fL (9.4-12.4); Platelet Count 341 X10*3/uL (160-400); Red Blood Count 4.28 X10*6/uL (4.60-5.80); Red Cell Distribution Width 14.7 % (11.0-16.0); White Blood Count 5.1 X10*3/uL (4.8-10.8)
[2020-10-29 07:13] LABS: Anion Gap 12 (12-20); Blood Urea Nitrogen 12 mg/dL (9-16); C Reactive Protein 0.78 mg/dL (< or = 0.50); Calcium 8.7 mg/dL (8.4-10.2); Carbon Dioxide 28 mmol/L (22-29); Chloride 103 mmol/L (96-108); Creatinine Clr Calc Pharmacy 81.2; Estimated Glomerular Filt Rate > 60; Glucose Random 105 mg/dL (60-115); Potassium 4.5 mmol/l (3.3-5.1); Sodium 138 mmol/L (135-145)
[2020-10-29 07:17] LABS: Procalcitonin 0.16 ng/mL
[2020-10-29 07:26] VITALS: BP 120/56; PULSE 62; RESP 18; TEMP 36.3; O2SAT 96
[2020-10-29 07:50] VITALS: PULSE 94; O2SAT 96
[2020-10-29 07:50] LABS: Glucose, Whole Blood 90 mg/dL (60-115)
[2020-10-29] MEDS: Fluticasone/Vilanterol 100/25 BLST.W.DEV 1 PUFF INHALE (07:50)
[2020-10-29] MEDS: dexAMETHasone sod phosphate 4 MG/ML VIAL 6 MG IVPUSH (08:22)
[2020-10-29 11:30] LABS: Glucose, Whole Blood 174 mg/dL (60-115)
--- NOTE | 2020-10-29 12:08 | P.DS_ITS ---
DS: Providers Provider Date of admission: 10/27/20 23:40 Primary care physician: Unknown Physician Consults: 10/28/20 02:01 Consult to Infectious Diseases Routine Consulting Provider: Shannan Holguin Reason for consultation: sepsis Has provider been notified: No DS: Diagnosis Discharge Diagnosis (1) COVID-19: Status: Acute (2) Psychotic disorder: Status: Acute DS: Medications Discharge Medications Home Medications: Home Medications Medication Instructions Recorded Confirmed albuterol sulfate 90 mcg INHALATION DAILY 09/06/20 10/27/20 levothyroxine 112 mcg PO QAM 09/28/20 10/27/20 metformin 500 mg PO DAILY 09/28/20 10/27/20 montelukast 10 mg PO DAILY 09/28/20 10/27/20 prednisone 10 mg PO DAILY 09/28/20 10/27/20 Previous Rx's Medication Instructions Recorded Breo Ellipta 1 inh INHALATION Q24H #28 ea 09/30/20 omeprazole 20 mg PO DAILY #30 cap 09/30/20 dexamethasone [Decadron] 8 mg PO DAILY #18 tab 10/29/20 nicotine [Nicoderm CQ] 1 patch TRANSDERMAL Q24H #28 ea 10/29/20 DS: Summary Hospital Course Hospital Course: HPI from the admission H&P: 74 y/o male with an extensive PMHX who presented from home due to SOB. Per history provided by the patient, for the past 2 days has been having worsening SOB associated with a dry cough. Denies any chest pain, nausea, vomiting, fever, sick contacts or recent travel. Initial vitals positive for tachypnea, tachycardia, no evidence of fever, CXR clear but covid swab positive for infection. Patient was placed on isolation. Despite several doses of nebulizer and one dose of solumedrol, patient continues to report difficulty breathing. Oxygen saturation at present is 100% on nasal cannula and 95-96% on room air. Wheezes diffusely identified on exam. Given persistent symptoms decision for admission was given. Patient was seen and examined at the bedside, laying down in bed in no acute distress. ROS as above otherwise negative. Physical exam positive for diffuse wheezes, no rales or ronchi. Hospital Course Patient was started on IV Decadron observed in the hospital over 48 hours where he did not become hypoxic Nor febrile. He was evaluated by Infectious Disease and deemed not to benefit from remdesivir. He will be discharged home to maintain isolation per CDC guidelines. He will be given decadron to compete a 10 day course. Time Spent with Patient Time attestation: Total time spent providing and/or coordinating discharge services: Physical Exam Vital Signs: Vital Signs: Last Vital Signs Temp 97.3 F 10/29/20 07:26 Pulse 94 10/29/20 07:50 Resp 18 10/29/20 07:26 BP 120/56 L 10/29/20 07:26 Pulse Ox 96 10/29/20 07:26 Body Mass Index 21.4 General - no acute distress, appears comfortable Cardiovascular - regular rate and rhythm, S1-S2 Lungs - normal respiratory effort, clear to auscultation bilaterally, no wheezing Abdomen - soft, nontender, no rebound or guarding Extremities - no edema bilaterally Neuro - awake and alert, no focal deficits DS: Data Data Completed and Pending Labs on day of discharge: Laboratory Last Values WBC 5.1 X10*3/uL (4.8-10.8) 10/29/20 05:37 RBC 4.28 X10*6/uL (4.60-5.80) L 10/29/20 05:37 Hgb 10.8 g/dl (14.0-18.0) L 10/29/20 05:37 Hct 34.6 % (42-52) L 10/29/20 05:37 MCV 80.8 fL (80-98) 10/29/20 05:37 MCH 25.2 pg (27.0-33.0) L 10/29/20 05:37 MCHC 31.2 g/dl (31.0-36.0) 10/29/20 05:37 RDW 14.7 % (11.0-16.0) 10/29/20 05:37 Plt Count 341 X10*3/uL (160-400) 10/29/20 05:37 MPV 10.4 fL (9.4-12.4) 10/29/20 05:37 Immature Gran % (Auto) 0.2 % (0.0-0.4) 10/28/20 05:33 Neut % (Auto) 59.3 % (45-73) 10/28/20 05:33 Lymph % (Auto) 23.5 % (20-40) 10/28/20 05:33 [place] % (Auto) 8.2 % (2-11) 10/28/20 05:33 Eos % (Auto) 8.3 % (0-4) H 10/28/20 05:33 Baso % (Auto) 0.5 % (0-2) 10/28/20 05:33 Lymph # (Auto) 1.4 X10*3/uL (1.2-4.9) 10/28/20 05:33 [place] # (Auto) 0.5 X10*3/uL (0.1-1.2) 10/28/20 05:33 Eos # (Auto) 0.5 X10*3/uL (0.0-0.4) H 10/28/20 05:33 Baso # (Auto) 0.0 X10*3/uL (0.0-0.2) 10/28/20 05:33 Abs Immat Gran (auto) 0.01 X10*3/uL (0.00-0.03) 10/28/20 05:33 Absolute Neuts (auto) 3.6 X10*3/uL (2.0-8.3) 10/28/20 05:33 Absolute Nucleated RBC 0.000 X10*3/uL (0.0-0.012) 10/29/20 05:37 Nucleated RBC % (auto) 0.0 /100WBC (0.0-0.2) 10/29/20 05:37 D-Dimer 749 NG/ML 10/29/20 05:37 Sodium 138 mmol/L (135-145) 10/29/20 05:37 Potassium 4.5 mmol/l (3.3-5.1) 10/29/20 05:37 Chloride 103 mmol/L (96-108) 10/29/20 05:37 Carbon Dioxide 28 mmol/L (22-29) 10/29/20 05:37 Anion Gap 12 (-20) 10/29/20 05:37 BUN 12 mg/dL (9-16) 10/29/20 05:37 Creatinine 0.68 mg/dL (0.5-1.4) 10/29/20 05:37 Estim Creat Clear Calc 81.2 10/29/20 05:37 Estimated GFR > 60 10/29/20 05:37 POC Glucose 174 mg/dL (60-115) H 10/29/20 11:27 Random Glucose 105 mg/dL (60-115) 10/29/20 05:37 Calcium 8.7 mg/dL (8.4-10.2) D 10/29/20 05:37 Magnesium 2.2 mg/dL (1.6-2.6) 10/28/20 05:33 C-Reactive Protein 0.78 mg/dL (< or = 0.50) H 10/29/20 05:37 Procalcitonin 0.16 ng/mL 10/29/20 05:37 Coronavirus (PCR) POSITIVE (Negative) A 10/27/20 16:33 Influenza Type A (PCR) NEGATIVE (Negative) 10/27/20 16:33 Influenza Type B (PCR) NEGATIVE (Negative) 10/27/20 16:33 RSV RNA Qual (PCR) NEGATIVE (Negative) 10/27/20 16:33 Discharge Plan Discharge Patient Disposition: Home, Self-Care Referrals: Kayla Chaney MD [Physician] - 1 Week (TELE VISIT: 11/01/20 10:20AM will call you to discuss your hospital stay. If you can't keep this appointment please call and reschedule.) Discharge Medications: New dexamethasone [Decadron] 4 mg tablet 8 mg PO DAILY Qty: 18 RF: 0 nicotine [Nicoderm CQ] 14 mg/24 hr patch 24 hour 1 patch transdermal Q24H Qty: 28 RF: 0 Continued metformin 500 mg tablet 500 mg PO DAILY RF: 0 prednisone 10 mg tablet 10 mg PO DAILY RF: 0 Hold Instructions: Resume on 10/05/20. First complete prednisone 40 mg daily course for 5 days and then switch back to your usual prednisone dose 10 mg. montelukast 10 mg tablet 10 mg PO DAILY RF: 0 levothyroxine 112 mcg tablet 112 mcg PO QAM RF: 0 omeprazole 20 mg capsule,delayed release(DR/EC) 20 mg PO DAILY Qty: 30 RF: 0 Breo Ellipta 100-25 mcg/dose blister with device 1 inh inhalation Q24H Qty: 28 RF: 0 albuterol sulfate 90 mcg/actuation HFA aerosol inhaler 90 mcg inhalation DAILY RF: 0 Discharge Orders: Discharge Order (Routine); Ordered 10/29/20 Ordered By: Miguel Mcmahon Diet: advance to usual diet Activity on Discharge: As tolerated Patient Instructions: Asthma (ED) Discharge Date/Time: 10/29/20 14:30 Visit Report Forms: Patient Portal Discharge page Care Plan Goals: To stay healthy and out of the hospital. Health Concerns: COVID 19 Plan of Treatment: Take decadron 8mg (after you complete this, restart your prednisone 10mg). Maintain isolation per CDC guidelines. If your breathing becomes worse, if you have fevers, if you develop cough or any other symptoms, return to the hospital.
--- NOTE | 2020-10-29 12:17 | MHC.CM.PN ---
Patient has been medically cleared for dc to home today, no services. Last IMM addressed on 10/28/20.
== END 2020-10-29 14:30 | disposition home or self-care (01) | DRG 871 ==
LOC: HO.ED 20:23 → HO.IMC 10-28 00:39
PROVIDERS: Internal Medicine; Admitting Provider Internal Medicine; Emergency Provider Emergency Medicine; Visit Provider Family Medicine
DX: A41.89 Other specified sepsis (principal); U07.1 COVID-19; J45.901 Unspecified asthma with (acute) exacerbation; J44.0 Chronic obstructive pulmonary disease with (acute) lower respiratory infection; K21.9 Gastro-esophageal reflux disease without esophagitis; E03.9 Hypothyroidism, unspecified; Z99.81 Dependence on supplemental oxygen; M81.0 Age-related osteoporosis without current pathological fracture; Z77.22 Contact with and (suspected) exposure to environmental tobacco smoke (acute) (chronic); E11.9 Type 2 diabetes mellitus without complications; F29 Unspecified psychosis not due to a substance or known physiological condition; Z79.84 Long term (current) use of oral hypoglycemic drugs; Z79.890 Hormone replacement therapy; Z79.899 Other long term (current) drug therapy
CPT/HCPCS: 0241U; 36415; 71045; 80048; 82947; 83735; 84145; 85025; 85027; 85379; 86140; 93005; 94640; 94644; 94645; 96361; 96365; 96375; 99285; J0696; J1100; J2930; J3475

== ENCOUNTER 2020-11-11 11:48 | Outpatient (REF) | payer MEDICARE, MEDICAID, SELFPAY | END 2020-11-11 11:49 | disposition home or self-care (01) | LOC: HO.LAB 11:48 | PROVIDERS: Visit Provider Internal Medicine | DX: Z20.828 Contact with and (suspected) exposure to other viral communicable diseases (principal) | CPT/HCPCS: C9803; U0003 ==

== ENCOUNTER 2020-11-30 19:16 | Inpatient (IN) | payer MEDICARE, MEDICAID, SELFPAY ==
[2020-11-30] VITALS (7 sets, daily range): BP systolic 118–137; BP diastolic 58–96; PULSE 95–106; RESP 18–36; TEMP 36.7–38.9; O2SAT 92–100; BMI 19.8
--- NOTE | 2020-11-30 19:19 | ECG_ITS ---
Test Reason : DIFF BREATHING Blood Pressure : / mmHG Vent. Rate : 095 BPM Atrial Rate : 095 BPM P-R Int : 122 ms QRS Dur : 086 ms QT Int : 324 ms P-R-T Axes : 085 069 075 degrees QTc Int : 407 ms Normal sinus rhythm Normal ECG When compared with ECG of 27-OCT-2020 14:47, No significant change was found Referred By: Kajal Peralta Electronically Signed By:ANTONIO WILLAMS
--- NOTE | 2020-11-30 19:20 | ED_ITS ---
HPI - Asthma General Chief Complaint: Dyspnea Stated Complaint: Asthma Time Seen by Provider: 11/30/20 19:18 Source: patient, old records reviewed and wrapper and preserver Mode of arrival: ambulatory Limitations: no limitations History of Present Illness HPI Narrative: 74 yo male with COPD, asthma hx of COVID 17 October 2020 here with dyspnea worsening last night not responding to his home medications complaint: asthma attack and wheezing Onset (ago): day(s) (yesterday but much worse this AM) Severity: severe and similar to prior Context: none known Associated symptoms: dry cough Asthma History: adult onset, history of frequent attacks and followed by spec ialist Treatments Prior to Arrival: inhaled bronchodilator and other (on 10mg prednisone now) Related Data Home Medications Medication Instructions Recorded Confirmed albuterol sulfate 90 mcg INHALATION DAILY 09/06/20 10/27/20 levothyroxine 112 mcg PO QAM 09/28/20 10/27/20 metformin 500 mg PO DAILY 09/28/20 10/27/20 montelukast 10 mg PO DAILY 09/28/20 10/27/20 prednisone 10 mg PO DAILY 09/28/20 10/27/20 Previous Rx's Medication Instructions Recorded Breo Ellipta 1 inh INHALATION Q24H #28 ea 09/30/20 omeprazole 20 mg PO DAILY #30 cap 09/30/20 dexamethasone [Decadron] 8 mg PO DAILY #18 tab 10/29/20 nicotine [Nicoderm CQ] 1 patch TRANSDERMAL Q24H #28 ea 10/29/20 Allergies Allergy/AdvReac Type Severity Reaction Status Date / Time shellfish derived Allergy Severe ANAPHYLAXIS Verified 11/30/20 19:24 [SHELLFISH DERIVED] pollen extracts [POLLEN] Allergy Intermediate RUNNING Verified 11/30/20 19:24 NOSE, WATERY EYES, SNEEZING varenicline [VARENICLINE] AdvReac Unknown PALPITATION Verified 11/30/20 19:24 S Review of Systems Review of Systems: Constitutional : No Fever, No Chills ENT/Mouth : No Hoarseness, No sore throat, No Rhinorrhea Eyes: No Redness, No Discharge, No Vision Changes Cardiovascular : No Chest Pain, positive SOB, positive Dyspnea on Exertion, No Edema Respiratory : positive Cough, No Sputum, positive Wheezing, Gastrointestinal : No Nausea, No Vomiting, No Diarrhea, No abdominal Pain Genitourinary : No Dysuria, No Hematuria Musculoskeletal : No joint pain, No Myalgias Skin : No rash Neuro : No Weakness, No Numbness, No Headache Psych : No anxiety, depression Heme/Lymph: No Bruising, No Bleeding Endocrine : No Polyuria, No Polydipsia All other systems reviewed and are negative [facility] Past Medical History Attestation statement: The following information was validated with the patient. Medical History Asthma Cataract COPD (chronic obstructive pulmonary disease) Diabetes GERD (gastroesophageal reflux disease) Hypertension Hypothyroidism Osteoarthritis Osteoporosis Oxygen dependent Ureteral calculi Surgical History History of appendectomy Hx of cataract surgery Social History Social History Household Members: Spouse Housing: House Alcohol intake: never Smoking Status: Former smoker Tobacco Type: Cigarette Packs Per Day: 0.5 Cigarettes Per Day: 10.0 Second Hand Smoke Exposure: Yes Use of substances other than those prescribed or required for medical reasons: No Advance Directives: No Advance Directives Information Provided: No service: No Current occupational status: retired Physical Exam Vital Signs: Vital Signs: Last Vital Signs Temp 98.1 F 11/30/20 19:43 Pulse 96 11/30/20 21:19 Resp 20 11/30/20 20:00 BP 127/70 11/30/20 20:00 Pulse Ox 100 11/30/20 20:00 Body Mass Index 19.8 Appearance: Alert. Oriented X3. Mild acute distress. Eyes: Pupils equal, round and reactive to light. ENT: Pharynx normal. Neck: Normal inspection. Neck supple. CVS: tachycardic heart rate and rhythm. Pulses normal. Respiratory: Mild respiratory distress tachypneic, short phrases. Breath sounds decreased and tight with end exp wheezes Abdomen: Soft and nontender. Skin: Skin warm and dry. Normal skin color. Normal skin turgor. Extremities: No lower extremity edema. No calf ttp Neuro: Oriented X 3. No motor deficit. No sensory deficit. Course Course Course Narrative: repeat 5mg neb wheezing and tachypneic 94% on neb still tight and wheezing post repeat neb at this time given his tachypnea and persistent diff breathing will admit MDM - Asthma MDM Narrative Medical decision making narrative: 74 yo male with hx of asthma and COPD on chronic steroids, has nebulizer at home - reports 1+ day of COPD exacerbation at this time will need labs, cultures, CXR, COVID swab though doubt given November infection, IV steroids, IV magnesium, dispo per results and improvements Lab Data Result diagrams: 11/30/20 19:33 11/30/20 19:32 Labs: Lab Results 11/30/20 11/30/20 11/30/20 Range/Units 19:32 19:32 19:32 WBC (4.8-10.8) X10*3/uL RBC (4.60-5.80) X10*6/uL Hgb (14.0-18.0) g/dl Hct (42-52) % MCV (80-98) fL MCH (27.0-33.0) pg MCHC (31.0-36.0) g/dl RDW (11.0-16.0) % Plt Count (160-400) X10*3/uL MPV (9.4-12.4) fL Immature Gran % (Auto) (0.0-0.4) % Neut % (Auto) (45-73) % Lymph % (Auto) (20-40) % [place] % (Auto) (2-11) % Eos % (Auto) (0-4) % Baso % (Auto) (0-2) % Lymph # (Auto) (1.2-4.9) X10*3/uL [place] # (Auto) (0.1-1.2) X10*3/uL Eos # (Auto) (0.0-0.4) X10*3/uL Baso # (Auto) (0.0-0.2) X10*3/uL Abs Immat Gran (auto) (0.00-0.03) X10*3/uL Absolute Neuts (auto) (2.0-8.3) X10*3/uL Absolute Nucleated RBC (0.0-0.012) X10*3/uL Nucleated RBC % (auto) (0.0-0.2) /100WBC PT 12.9 (10.8-13.0) SEC INR 1.1 (0.9-1.1) APTT 40.5 H D (24.1-38.0) SEC Hold Blue Top SEE NOTE VBG pH (7.32-7.43) VBG pCO2 mmhg VBG pO2 mmhg VBG HCO3 mmol/L VBG O2 Saturation % VBG Base Excess mmol/L Sodium 140 (135-145) mmol/L Potassium 4.9 (3.3-5.1) mmol/l Chloride 102 (96-108) mmol/L Carbon Dioxide 29 (22-29) mmol/L Anion Gap 14 (12-20) BUN 9 (9-16) mg/dL Creatinine 0.82 (0.5-1.4) mg/dL Estim Creat Clear Calc 62.1 Estimated GFR > 60 Random Glucose 162 H D (60-115) mg/dL Lactic Acid 1.5 (0.5-2.0) mmol/L Calcium 8.5 (8.4-10.2) mg/dL Magnesium 1.8 (1.6-2.6) mg/dL Ferritin 22 (20-250) ng/mL Total Bilirubin 0.2 (0.0-1.0) mg/dL Direct Bilirubin < 0.2 (0.0-0.5) mg/dL AST 13 D (5-37) U/L ALT 10 (0-40) U/L Alkaline Phosphatase 125 H D (39-117) U/L Lactate Dehydrogenase 208 (118-273) U/L B-Natriuretic Peptide (<100) pg/mL Total Protein 6.3 L (6.5-8.0) g/dL Albumin 3.7 (3.5-5.0) g/dL COVID-19 (ELIO) (Negative) COVID-19 Clin Com 11/30/20 11/30/20 11/30/20 Range/Units 19:32 19:32 19:33 WBC 5.2 (4.8-10.8) X10*3/uL RBC 4.40 L (4.60-5.80) X10*6/uL Hgb 11.3 L (14.0-18.0) g/dl Hct 36.3 L (42-52) % MCV 82.5 (80-98) fL MCH 25.7 L (27.0-33.0) pg MCHC 31.1 (31.0-36.0) g/dl RDW 14.9 (11.0-16.0) % Plt Count 402 H (160-400) X10*3/uL MPV 9.0 L (9.4-12.4) fL Immature Gran % (Auto) 0.4 (0.0-0.4) % Neut % (Auto) 52.6 (45-73) % Lymph % (Auto) 29.1 (20-40) % [place] % (Auto) 7.1 (2-11) % Eos % (Auto) 10.2 H (0-4) % Baso % (Auto) 0.6 (0-2) % Lymph # (Auto) 1.5 (1.2-4.9) X10*3/uL [place] # (Auto) 0.4 (0.1-1.2) X10*3/uL Eos # (Auto) 0.5 H (0.0-0.4) X10*3/uL Baso # (Auto) 0.0 (0.0-0.2) X10*3/uL Abs Immat Gran (auto) 0.02 (0.00-0.03) X10*3/uL Absolute Neuts (auto) 2.7 (2.0-8.3) X10*3/uL Absolute Nucleated RBC 0.000 (0.0-0.012) X10*3/uL Nucleated RBC % (auto) 0.0 (0.0-0.2) /100WBC PT (10.8-13.0) SEC INR (0.9-1.1) APTT (24.1-38.0) SEC Hold Blue Top VBG pH (7.32-7.43) VBG pCO2 mmhg VBG pO2 mmhg VBG HCO3 mmol/L VBG O2 Saturation % VBG Base Excess mmol/L Sodium (135-145) mmol/L Potassium (3.3-5.1) mmol/l Chloride (96-108) mmol/L Carbon Dioxide (22-29) mmol/L Anion Gap (12-20) BUN (9-16) mg/dL Creatinine (0.5-1.4) mg/dL Estim Creat Clear Calc Estimated GFR Random Glucose (60-115) mg/dL Lactic Acid (0.5-2.0) mmol/L Calcium (8.4-10.2) mg/dL Magnesium (1.6-2.6) mg/dL Ferritin (20-250) ng/mL Total Bilirubin (0.0-1.0) mg/dL Direct Bilirubin (0.0-0.5) mg/dL AST (5-37) U/L ALT (0-40) U/L Alkaline Phosphatase (39-117) U/L Lactate Dehydrogenase (118-273) U/L B-Natriuretic Peptide 16 (<100) pg/mL Total Protein (6.5-8.0) g/dL Albumin (3.5-5.0) g/dL COVID-19 (ELIO) Negative (Negative) COVID-19 Clin Com See Note 11/30/20 Range/Units 19:54 WBC (4.8-10.8) X10*3/uL RBC (4.60-5.80) X10*6/uL Hgb (14.0-18.0) g/dl Hct (42-52) % MCV (80-98) fL MCH (27.0-33.0) pg MCHC (31.0-36.0) g/dl RDW (11.0-16.0) % Plt Count (160-400) X10*3/uL MPV (9.4-12.4) fL Immature Gran % (Auto) (0.0-0.4) % Neut % (Auto) (45-73) % Lymph % (Auto) (20-40) % [place] % (Auto) (2-11) % Eos % (Auto) (0-4) % Baso % (Auto) (0-2) % Lymph # (Auto) (1.2-4.9) X10*3/uL [place] # (Auto) (0.1-1.2) X10*3/uL Eos # (Auto) (0.0-0.4) X10*3/uL Baso # (Auto) (0.0-0.2) X10*3/uL Abs Immat Gran (auto) (0.00-0.03) X10*3/uL Absolute Neuts (auto) (2.0-8.3) X10*3/uL Absolute Nucleated RBC (0.0-0.012) X10*3/uL Nucleated RBC % (auto) (0.0-0.2) /100WBC PT (10.8-13.0) SEC INR (0.9-1.1) APTT (24.1-38.0) SEC Hold Blue Top VBG pH 7.37 (7.32-7.43) VBG pCO2 51 mmhg VBG pO2 43 mmhg VBG HCO3 29 mmol/L VBG O2 Saturation 99.0 % VBG Base Excess 2.5 mmol/L Sodium (135-145) mmol/L Potassium (3.3-5.1) mmol/l Chloride (96-108) mmol/L Carbon Dioxide (22-29) mmol/L Anion Gap (12-20) BUN (9-16) mg/dL Creatinine (0.5-1.4) mg/dL Estim Creat Clear Calc Estimated GFR Random Glucose (60-115) mg/dL Lactic Acid (0.5-2.0) mmol/L Calcium (8.4-10.2) mg/dL Magnesium (1.6-2.6) mg/dL Ferritin (20-250) ng/mL Total Bilirubin (0.0-1.0) mg/dL Direct Bilirubin (0.0-0.5) mg/dL AST (5-37) U/L ALT (0-40) U/L Alkaline Phosphatase (39-117) U/L Lactate Dehydrogenase (118-273) U/L B-Natriuretic Peptide (<100) pg/mL Total Protein (6.5-8.0) g/dL Albumin (3.5-5.0) g/dL COVID-19 (ELIO) (Negative) COVID-19 Clin Com ECG Data Attestation: I personally reviewed and interpreted this ECG as follows: ECG interpretation date: 11/30/20 ECG interpretation time: 19:42 Interpretation: Rate: 95 Rhythm: NSR [place]: normal Normal P waves. Normal JOHAN. Normal QRS complex. ST T wave : normal no MARIA DEL ROS[place]IO qTC: normal prior studies: no acute ischemia The study has been interpreted contemporaneously by me. . Critical Care Time Critical Care Time Critical Care Time: Yes Total Critical Care Time: 60 Attestation: repeat hour long neb, IV steroids, IV magnesium, review of records I attest to this time spent taking care of the patient Discharge Plan Discharge Clinical Impression: COPD exacerbation Patient Disposition: Admitted As Inpatient Prescriptions: No Action metformin 500 mg tablet 500 mg PO DAILY RF: 0 prednisone 10 mg tablet 10 mg PO DAILY RF: 0 Hold Instructions: Resume on 10/05/20. First complete prednisone 40 mg daily course for 5 days and then switch back to your usual prednisone dose 10 mg. montelukast 10 mg tablet 10 mg PO DAILY RF: 0 levothyroxine 112 mcg tablet 112 mcg PO QAM RF: 0 omeprazole 20 mg capsule,delayed release(DR/EC) 20 mg PO DAILY Qty: 30 RF: 0 Breo Ellipta 100-25 mcg/dose blister with device 1 inh inhalation Q24H Qty: 28 RF: 0 dexamethasone [Decadron] 4 mg tablet 8 mg PO DAILY Qty: 18 RF: 0 nicotine [Nicoderm CQ] 14 mg/24 hr patch 24 hour 1 patch transdermal Q24H Qty: 28 RF: 0 albuterol sulfate 90 mcg/actuation HFA aerosol inhaler 90 mcg inhalation DAILY RF: 0
[2020-11-30] MEDS: Magnesium Sulfate/H2O 2 GM/50 ML PIGGYBACK IV (19:38)
[2020-11-30] MEDS: Albuterol Sulfate (0.083%) 2.5 MG/3 ML VIAL.NEB 10 MG INHALE (19:38)
[2020-11-30] MEDS: methylPREDNISolone Sod Succ/PF 125 MG/2 ML VIAL 60 MG IVPUSH (19:38)
[2020-11-30 19:59] LABS: COVID-19 Test Negative (Negative); Lactic Acid 1.5 mmol/L (0.5-2.0)
[2020-11-30 20:00] LABS: INTERNATIONAL NORM RATIO 1.1 (0.9-1.1); Prothrombin Time 12.9 SEC (10.8-13.0)
[2020-11-30 20:00] LABS: Basophils Percent Auto 0.6 % (0-2); Eosinophils Absolute Auto 0.5 X10*3/uL (0.0-0.4); Eosinophils Percent Auto 10.2 % (0-4); Hematocrit 36.3 % (42-52); Hemoglobin 11.3 g/dl (14.0-18.0); Imm Gran Abs Auto 0.02 X10*3/uL (0.00-0.03); Imm Gran Pct Auto 0.4 % (0.0-0.4); Lymphocytes Absolute Auto 1.5 X10*3/uL (1.2-4.9); Lymphocytes Percent Auto 29.1 % (20-40); MANUAL DIFF FLAG NO; Mean Corpuscular HGB Conc 31.1 g/dl (31.0-36.0); Mean Corpuscular Hemoglobin 25.7 pg (27.0-33.0); Mean Corpuscular Volume 82.5 fL (80-98); Monocytes Absolute Auto 0.4 X10*3/uL (0.1-1.2); Monocytes Percent Auto 7.1 % (2-11); Neutrophils Absolute Auto 2.7 X10*3/uL (2.0-8.3); Neutrophils Percent Auto 52.6 % (45-73); Platelet Count 402 X10*3/uL (160-400); Red Cell Distribution Width 14.9 % (11.0-16.0); White Blood Count 5.2 X10*3/uL (4.8-10.8)
[2020-11-30 20:02] LABS: Partial Thromboplastin Time 40.5 SEC (24.1-38.0)
[2020-11-30 20:03] LABS: PCO2 VBG 51 mmhg; PO2 VBG 43 mmhg; pH VBG 7.37 (7.32-7.43)
[2020-11-30 20:04] LABS: Base Excess VBG 2.5 mmol/L; Blood Gas Serial # 5396; HCO3 VBG 29 mmol/L
--- NOTE | 2020-11-30 20:06 | XR_ITS ---
EXAMINATION: XR CHEST CLINICAL INFORMATION: Dyspnea. COMPARISON: Most recent chest radiograph dated 10/27/2020. TECHNIQUE: Frontal view of the chest was obtained. FINDINGS: Chronic interstitial prominence. Pleural calcifications and left lower lobe probable calcified granuloma are unchanged. No new focal airspace consolidation. No pleural effusion or pneumothorax. Stable cardiomediastinal silhouette. XR/XR chest 1V IMPRESSION: No acute cardiopulmonary findings.
[2020-11-30 20:19] LABS: Alanine Aminotransferase 10 U/L (0-40); Albumin Level 3.7 g/dL (3.5-5.0); Alkaline Phosphatase 125 U/L (39-117); Anion Gap 14 (12-20); Aspartate Amino Transferase 13 U/L (5-37); Bilirubin Direct < 0.2 mg/dL (0.0-0.5); Bilirubin Total 0.2 mg/dL (0.0-1.0); Blood Urea Nitrogen 9 mg/dL (9-16); Calcium 8.5 mg/dL (8.4-10.2); Carbon Dioxide 29 mmol/L (22-29); Chloride 102 mmol/L (96-108); Creatinine Clr Calc Pharmacy 62.1; Estimated Glomerular Filt Rate > 60; Glucose Random 162 mg/dL (60-115); Lactate Dehydrogenase 208 U/L (118-273); Magnesium 1.8 mg/dL (1.6-2.6); Potassium 4.9 mmol/l (3.3-5.1); Sodium 140 mmol/L (135-145); Total Protein 6.3 g/dL (6.5-8.0)
[2020-11-30 20:24] LABS: Ferritin 22 ng/mL (20-250)
[2020-11-30] MEDS: cefTRIAXone sodium 1 GM in 0.9 % Sodium Chloride 50 ML IV (20:28)
--- NOTE | 2020-11-30 20:31 | PC.NURSE ---
aPPEARS BETTTER. LESS WORK OF BREATHING. SKIN PWD. SPKING FULL SENTENCES. ST ON MONITOR. REPORTS IMPROVEMENT IN SX. STILL IS SLIGHTLY SOB AT REST.
[2020-11-30 20:35] LABS: B Type Natriuretic Peptide 16 pg/mL (<100)
[2020-11-30] MEDS: Albuterol Sulfate (0.083%) 2.5 MG/3 ML VIAL.NEB 5 MG INHALE (21:19)
--- NOTE | 2020-11-30 23:00 | P.HPHOSP_ITS ---
History of Present Illness Date of Service: 11/30/20 Chief Complaint: Shortness of breath This is a 74 year old male with past medical history of COPD/asthma, hypertension, dyslipidemia, hypothyroidism, type 2 diabetes, who presents to the hospital with complaints of shortness of breath. His symptoms started today, associated with cough and sputum production, denies any fever or chills, no abdominal pain nausea or vomiting, no chest pain, no urinary symptoms and no lower extremity edema. No orthopnea or PND. Denies any recent sick contact or travel On arrival to the ED patient initially with stable hemodynamics but developed fever of 102 in the ED, heart rate of 106, respiratory rate of 36, blood pressu re 118/58, satting 92% on room air desatting on ambulation. Patient currently on 2 L of O2 nasal cannula. Labs are significant for WBC count of 5.2, hemoglobin of 11.3, hematocrit 36.3, VBG showing a pH of 7.37, sodium of 140, potassium 4.9, anion gap of 14, BUN of 9, creatinine of 0.82, COVID-19 negative, Chest x-ray shows no acute cardiopulmonary findings Past medical history: COPD, asthma, hypertension, dyslipidemia, diabetes, osteoarthritis, osteoporosis, acid reflux, hypothyroidism, diverticulosis, history of ureteral calculi, history of hemorrhoids Surgical history: Appendectomy, cataracts extraction, Family history colon cancer in his father Social history: The patient comes from home, smokes about 1 pack per day, denies any alcohol or illicit drugs. Uses a cane to ambulate, Review of Systems Review of Systems: Yes all other systems are reviewed and are negative [facility]LY [facility] Medical History Asthma Cataract COPD (chronic obstructive pulmonary disease) Diabetes GERD (gastroesophageal reflux disease) Hypertension Hypothyroidism Osteoarthritis Osteoporosis Oxygen dependent Ureteral calculi Surgical History History of appendectomy Hx of cataract surgery Social History Household Members: Spouse Housing: House Alcohol intake: never Smoking Status: Former smoker Tobacco Type: Cigarette Packs Per Day: 0.5 Cigarettes Per Day: 10.0 Second Hand Smoke Exposure: Yes Use of substances other than those prescribed or required for medical reasons: No Advance Directives: No Advance Directives Information Provided: No service: No Current occupational status: retired Meds Allergies Allergy/AdvReac Type Severity Reaction Status Date / Time shellfish derived Allergy Severe ANAPHYLAXIS Verified 11/30/20 19:24 [SHELLFISH DERIVED] pollen extracts [POLLEN] Allergy Intermediate RUNNING Verified 11/30/20 19:24 NOSE, WATERY EYES, SNEEZING varenicline [VARENICLINE] AdvReac Unknown PALPITATION Verified 11/30/20 19:24 S Home Medications Medication Instructions Recorded Confirmed Type albuterol sulfate 90 mcg INHALATION DAILY 09/06/20 10/27/20 History levothyroxine 112 mcg PO QAM 09/28/20 10/27/20 History metformin 500 mg PO DAILY 09/28/20 10/27/20 History montelukast 10 mg PO DAILY 09/28/20 10/27/20 History prednisone 10 mg PO DAILY 09/28/20 10/27/20 History Physical Exam Vital Signs and Narrative: Vital Signs: Last Vital Signs Temp 102.0 F H 11/30/20 22:41 Pulse 106 H 11/30/20 22:41 Resp 18 11/30/20 22:41 BP 137/96 H 11/30/20 22:41 Pulse Ox 99 11/30/20 22:41 Body Mass Index 19.8 Const: General: cooperative and no acute distress Orientation/ consciousness: patient oriented x3 Eyes: General: appearance normal, both eyes and all related structures Resp: Other: On nasal cannula 2 L Effort & Inspection: normal respiratory effort and able to speak in complete sentences Cardio: Rate: regular rate Rhythm: regular rhythm GI: Palpation (GI): Soft to palpation Auscultation: normal bowel sounds Skin: General skin exam: no rashes or lesions noted Neuro: General: patient oriented x3 Cognition (Neuro): normal cognition Extrem: General: Yes normal to inspection and Yes no pedal edema Results Labs CBC and Chem 7: 11/30/20 19:33 11/30/20 19:32 Labs: Laboratory Results - last 24 hr 11/30/20 11/30/20 11/30/20 19:32 19:32 19:32 MCV MCH MCHC RDW Plt Count MPV Immature Gran % (Auto) Neut % (Auto) Lymph % (Auto) Story % (Auto) Eos % (Auto) Baso % (Auto) Lymph # (Auto) Story # (Auto) Eos # (Auto) Baso # (Auto) Abs Immat Gran (auto) Absolute Neuts (auto) Absolute Nucleated RBC Nucleated RBC % (auto) PT 12.9 INR 1.1 APTT 40.5 H D Hold Blue Top SEE NOTE VBG pH VBG pCO2 VBG pO2 VBG HCO3 VBG O2 Saturation VBG Base Excess Anion Gap 14 Estim Creat Clear Calc 62.1 Estimated GFR > 60 Random Glucose 162 H D Lactic Acid 1.5 Calcium 8.5 Magnesium 1.8 Ferritin 22 Total Bilirubin 0.2 Direct Bilirubin < 0.2 AST 13 D ALT 10 Alkaline Phosphatase 125 H D Lactate Dehydrogenase 208 B-Natriuretic Peptide Total Protein 6.3 L Albumin 3.7 COVID-19 ([facility]IO) COVID-19 Clin Com 11/30/20 11/30/20 11/30/20 19:32 19:32 19:33 MCV 82.5 MCH 25.7 L MCHC 31.1 RDW 14.9 Plt Count 402 H MPV 9.0 L Immature Gran % (Auto) 0.4 Neut % (Auto) 52.6 Lymph % (Auto) 29.1 Story % (Auto) 7.1 Eos % (Auto) 10.2 H Baso % (Auto) 0.6 Lymph # (Auto) 1.5 Story # (Auto) 0.4 Eos # (Auto) 0.5 H Baso # (Auto) 0.0 Abs Immat Gran (auto) 0.02 Absolute Neuts (auto) 2.7 Absolute Nucleated RBC 0.000 Nucleated RBC % (auto) 0.0 PT INR APTT Hold Blue Top VBG pH VBG pCO2 VBG pO2 VBG HCO3 VBG O2 Saturation VBG Base Excess Anion Gap Estim Creat Clear Calc Estimated GFR Random Glucose Lactic Acid Calcium Magnesium Ferritin Total Bilirubin Direct Bilirubin AST ALT Alkaline Phosphatase Lactate Dehydrogenase B-Natriuretic Peptide 16 Total Protein Albumin COVID-19 ([facility]IO) Negative COVID-19 Clin Com See Note 11/30/20 19:54 MCV MCH MCHC RDW Plt Count MPV Immature Gran % (Auto) Neut % (Auto) Lymph % (Auto) Story % (Auto) Eos % (Auto) Baso % (Auto) Lymph # (Auto) Story # (Auto) Eos # (Auto) Baso # (Auto) Abs Immat Gran (auto) Absolute Neuts (auto) Absolute Nucleated RBC Nucleated RBC % (auto) PT INR APTT Hold Blue Top VBG pH 7.37 VBG pCO2 51 VBG pO2 43 VBG HCO3 29 VBG O2 Saturation 99.0 VBG Base Excess 2.5 Anion Gap Estim Creat Clear Calc Estimated GFR Random Glucose Lactic Acid Calcium Magnesium Ferritin Total Bilirubin Direct Bilirubin AST ALT Alkaline Phosphatase Lactate Dehydrogenase B-Natriuretic Peptide Total Protein Albumin COVID-19 ([facility]) COVID-19 Clin Com Imaging Radiologist's Impressions: Impressions Chest X-Ray 11/30/20 20:06 IMPRESSION: No acute cardiopulmonary findings. 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 Diabetes mellitus complication status: with other specified complication Qualified Code(s): E11.69 - Type 2 diabetes mellitus with other specified complication Status: Acute (5) Sepsis: Qualifiers: Sepsis type: sepsis due to unspecified organism Sepsis acute organ dysfunction status: with acute organ dysfunction Severe sepsis acute organ dysfunction type: acute respiratory failure Acute respiratory failure type: with hypoxia Severe sepsis shock status: without septic shock Qualified Code(s): A41.9 - Sepsis, unspecified organism; R65.20 - Severe sepsis without septic shock; J96.01 - Acute respiratory failure with hypoxia Status: Acute This 74-year-old male past medical history of COPD who presents to the hospital with shortness of breath found to have COPD exacerbation. Of note pat ient was diagnosed with COVID-19 pneumonia in September but currently negative. # acute hypoxic respiratory failure - secondary to COPD exacerbation, COVID-19 negative, PE less likeley, chest x- ray less likely - no evidence of pneumonia, COVID-19 negative, with no evidence of infiltrates on chest x-ray to indicate either 1 - No risk factors for PE - has increased cough, sputum production, and dyspnea - also tachycardic, tachypneic on arrival, and febrile Plan: - Solu-Medrol IV 40 b.i.d., DuoNeb p.r.n. and scheduled, - IV antibiotics - O2 as required - monitor respiratory status # sepsis - secondary to above - tachycardia, tachypnea, febrile, no leukocytosis, lactic acid normal - given ceftriaxone and doxycycline in the ED Plan: - IV antibiotics to cover COPD exacerbation - follow blood cultures # COPD exacerbation - increased dyspnea, cough, sputum production - has hypoxia, does not use oxygen at home, currently on 2 L of oxygen satting above 95% Plan: - start IV Solu-Medrol as above, breathing treatments, IV antibiotics, follow cultures - titrate O2 down as tolerated # diabetes mellitus - sliding scale insulin - diabetic diet - POC q.i.d. a.c. # hypertension - stable - continue home medication # chronic issues - hypothyroidism: Continue levothyroxine - GERD: Continue omeprazole DVT prophylaxis: Heparin subQ
--- NOTE | 2020-11-30 23:00 | PC.NURSE ---
PT SLEEPING IN STRETCHER, WAKES TO VERBAL STIMULI, RESPIRATIONS EASY, N/L, SKIN W/D. PT AWAITING FOR ROOM ASSIGNMENT. WILL CONTINUE TO MONITOR PT.
--- NOTE | 2020-11-30 23:00 | PC.NURSE ---
ASSUMED CARE OF PT. PT SLEEPING WAKES TO VERBAL STIMULI, [id number]
[2020-12-01] VITALS: BP 136/75; PULSE 90; RESP 18; O2SAT 98
--- NOTE | 2020-12-01 01:52 | PC.NURSE ---
MED REC DONE.
--- NOTE | 2020-12-01 02:03 | PC.NURSE ---
REPORT GIVEN TO TOSIN MALDONADO. PT TO FLOOR IN STRETCHER AT THIS TIME IN NAD.
[2020-12-01] MEDS: Azithromycin 500 MG TABLET PO (03:20)
[2020-12-01] MEDS: 0.9 % Sodium Chloride Flush 3 ML SYRINGE IVFLUSH ×4 (03:21→21:29)
[2020-12-01 03:22] VITALS: BP 119/72; PULSE 84; RESP 20; TEMP 36.8; O2SAT 100
[2020-12-01 06:33] LABS: Imm Gran Abs Auto 0.01 X10*3/uL (0.00-0.03); Imm Gran Pct Auto 0.5 % (0.0-0.4); Lymphocytes Absolute Auto 0.3 X10*3/uL (1.2-4.9); Lymphocytes Percent Auto 16.2 % (20-40); MANUAL DIFF FLAG SCAN; Mean Corpuscular HGB Conc 29.7 g/dl (31.0-36.0); Mean Corpuscular Hemoglobin 24.6 pg (27.0-33.0); Mean Corpuscular Volume 82.6 fL (80-98); Mean Platelet Volume 9.6 fL (9.4-12.4); Monocytes Percent Auto 1.1 % (2-11); Neutrophils Absolute Auto 1.5 X10*3/uL (2.0-8.3); Neutrophils Percent Auto 82.2 % (45-73); Platelet Count 371 X10*3/uL (160-400); Red Blood Count 4.48 X10*6/uL (4.60-5.80); Red Cell Distribution Width 14.8 % (11.0-16.0); SCAN SMEAR FLAG 1
[2020-12-01 06:47] LABS: White Blood Count 1.9 X10*3/uL (4.8-10.8)
[2020-12-01 07:06] LABS: Anion Gap 16 (12-20); Blood Urea Nitrogen 13 mg/dL (9-16); Calcium 8.3 mg/dL (8.4-10.2); Carbon Dioxide 27 mmol/L (22-29); Chloride 101 mmol/L (96-108); Creatinine Clr Calc Pharmacy 60.7; Estimated Glomerular Filt Rate > 60; Glucose Random 250 mg/dL (60-115); Potassium 5.1 mmol/l (3.3-5.1); Sodium 139 mmol/L (135-145)
[2020-12-01] MEDS: Albuterol/Iprat 2.5/0.5MG 3 ML AMPUL.NEB INHALE ×4 (07:24→20:41)
[2020-12-01 07:52] LABS: SLIDE REVIEW VERIFIED
[2020-12-01 08:00] VITALS: BP 128/62; PULSE 76; RESP 17; TEMP 36.5; O2SAT 94
[2020-12-01 08:11] LABS: Glucose, Whole Blood 217 mg/dL (60-115)
[2020-12-01] MEDS: Heparin Sodium,Porcine 5,000 UNIT/ML VIAL 5000 UNIT SUBCUT ×2 (09:19→21:29)
--- NOTE | 2020-12-01 11:10 | HO.PM.IMPN ---
Subjective Subjective Date of Service: 12/01/20 Interval History: Patient being followed for COPD exacerbation, feels better [place] less shortness of breath, complaining of cough, stop smoking 4 days ago, no acute overnight issues. Review of Systems General no headache, no dizziness, no fever, chills. CVS no chest pain, no palpitation. Respiratory dry cough ,no respiratory distress. Gastrointestinal no nausea, no vomiting, no abdominal pain Physical Exam Vital Signs: Vital Signs: Last Vital Signs Temp 97.7 F 12/01/20 08:00 Pulse 76 12/01/20 08:00 Resp 17 12/01/20 08:00 BP 128/62 12/01/20 08:00 Pulse Ox 94 12/01/20 08:00 Body Mass Index 19.8 Const: Other: General awake alert, resting in bed,no acute distress. Neck is supple no JVD. CVS regular rate rhythm, Respiratory lungs bilateral expiratory wheeze, no respiratory distress Gastrointestinal abdomen soft, nontender, bowel sounds audible Extremities no clubbing cyanosis or edema. Neuro nonfocal . Skin no rash Objective Data Current Medications Generic Name Dose Route Start Last Admin Trade Name Freq PRN Reason Stop Dose Admin Acetaminophen 650 mg 12/01/20 02:52 Acetaminophen 325 Mg Tablet PO Q6H PRN Pain, Mild (Pain Scale 1-3) Albuterol/Ipratropium 3 ml 12/01/20 08:00 12/01/20 07:24 Albuterol/Iprat 2.5/0.5mg 3 Ml Ampul.Neb INHALE 3 ml RQ4H WHILE AWAKE MEHDI Administration Albuterol/Ipratropium 3 ml 12/01/20 02:52 Albuterol/Iprat 2.5/0.5mg 3 Ml Ampul.Neb INHALE RQ4H PRN Shortness of Breath/Wheezing Azithromycin 500 mg 12/01/20 04:00 12/01/20 03:20 Azithromycin 500 Mg Tablet PO 500 mg Q24H MEHDI Administration Docusate Sodium 100 mg 12/01/20 02:52 Docusate Sodium 100 Mg Capsule PO DAILY PRN Constipation Heparin Sodium (Porcine) 5,000 unit 12/01/20 09:00 12/01/20 09:19 Heparin Sodium,Porcine 5,000 Unit/Ml Vial SUBCUT 5,000 unit BID MEHDI Administration Ceftriaxone Sodium 1 gm/ 50 mls @ 100 mls/hr 12/01/20 20:00 Sodium Chloride IV Q24H [facility] Insulin Human Lispro 0 unit 12/01/20 07:30 12/01/20 09:17 Insulin Lispro 100 Unit/Ml 3 Ml Vial SUBCUT Not Given QIDACHS [facility] Protocol Methylprednisolone Sodium Succinate 40 mg 12/01/20 09:00 12/01/20 09:18 Methylprednisolone Sod Succ/Pf 40 Mg/Ml Vial IVPUSH 40 mg BID MEHDI Administration Ondansetron HCl 4 mg 12/01/20 02:52 Ondansetron Hcl 4 Mg/2 Ml Vial IVPUSH Q8H PRN Nausea and Vomiting Pharmacy Consult 1 each 11/30/20 19:18 Consult Rx Perform Med Rec MISCELLANE ONCE PRN Consult order Sodium Chloride 3 ml 12/01/20 02:52 12/01/20 09:22 0.9 % Sodium Chloride Flush 3 Ml Syringe IVFLUSH 3 ml QSHIFT MEHDI Administration Labs CBC & Chem 7: 12/01/20 06:00 12/01/20 06:00 Assessment and Plan (1) COPD exacerbation: Status: Acute (2) Hypothyroidism: Status: Acute (3) Diabetes: Status: Acute (4) Acute respiratory failure with hypoxia: Status: Acute (5) Sepsis: Status: Acute Assessment and Plan: 74-year-old male past medical history of COPD who presents to the hospital with shortness of breath found to have COPD exacerbation., patient was diagnosed with COVID-19 pneumonia in September but currently negative. # acute hypoxic respiratory failure due to COPD exacerbation, history of recent COVID-19 infection in September 2020 (PCR pos 10/27) patient feeling better, oxygenation stable and 94% on room air, chest x-ray shows no evidence of pneumonia, repeat COVID PCR negative tachycardic, tachypnea and fever resolved Will continue Solu-Medrol IV 40 b.i.d., DuoNeb p.r.n. and scheduled, IV azithromycin add cough medication # sepsis secondary to COPD exacerbation all symptoms of sepsis tachycardia tachypnea and fever resolved Cbc this morning shows significant leukopenia, will follow CBC,normal LA Continue IV azithromycin to cover COPD exacerbation. follow blood cultures # diabetes mellitus Blood sugar elevated likely due to steroid, continue diabetic diet, sliding scale insulin, patient take Glucophage at home will verify dose, follow point of care # chronic issues hypothyroidism: Continue levothyroxine # Tobacco use disorder councilling done DVT prophylaxis: Heparin subQ
[2020-12-01 12:00] VITALS: BP 150/74; PULSE 82; RESP 18; RESP 20; TEMP 36.6; O2SAT 96
[2020-12-01 13:35] LABS: Glucose, Whole Blood 201 mg/dL (60-115)
[2020-12-01] MEDS: Insulin Lispro 100 UNIT/ML 3 ML VIAL SUBCUT ×2 (13:44→21:29)
[2020-12-01] MEDS: Levothyroxine Sodium 112 MCG TABLET PO (13:45)
[2020-12-01] MEDS: guaiFENesin DM 200/20/10 ML 10 ML SYRUP PO ×3 (13:45→19:32)
[2020-12-01 15:05] VITALS: BP 150/71; PULSE 8; PULSE 80; RESP 18; TEMP 36.8; O2SAT 95
--- NOTE | 2020-12-01 15:37 | MHC.CM.PN ---
CM met with pt with the assistance of a clinical nursing coordinator. Pt reports he lives alone as he and his GF recently . Pt reports he has no in home services and is independent with all care. Pt uses a cane to ambulate. Pt reports his niece is his HCP and also assists him with transportation when needed. IMM delivered current DC plan is home with no services pts niece will transport
[2020-12-01 16:18] LABS: Glucose, Whole Blood 104 mg/dL (60-115)
[2020-12-01 19:21] VITALS: BP 122/61; PULSE 92; RESP 18; TEMP 37.1; O2SAT 93
[2020-12-01] MEDS: cefTRIAXone sodium 1 GM in 0.9 % Sodium Chloride 50 ML IV (19:32)
[2020-12-01 20:50] LABS: Glucose, Whole Blood 153 mg/dL (60-115)
[2020-12-02] VITALS: BP 132/63; PULSE 94; RESP 18; TEMP 36.8; O2SAT 96
[2020-12-02 03:26] VITALS: BP 146/57; PULSE 83; RESP 20; TEMP 36.5; O2SAT 96
[2020-12-02] MEDS: Azithromycin 500 MG TABLET PO (04:42)
[2020-12-02] MEDS: guaiFENesin DM 200/20/10 ML 10 ML SYRUP PO ×2 (04:42→10:55)
[2020-12-02] MEDS: Levothyroxine Sodium 112 MCG TABLET PO (04:42)
[2020-12-02 06:48] LABS: Hematocrit 34.3 % (42-52); Hemoglobin 10.5 g/dl (14.0-18.0); Imm Gran Abs Auto 0.03 X10*3/uL (0.00-0.03); Imm Gran Pct Auto 0.4 % (0.0-0.4); Lymphocytes Absolute Auto 0.5 X10*3/uL (1.2-4.9); Lymphocytes Percent Auto 7.2 % (20-40); MANUAL DIFF FLAG SCAN; Mean Corpuscular HGB Conc 30.6 g/dl (31.0-36.0); Mean Corpuscular Volume 81.7 fL (80-98); Mean Platelet Volume 9.7 fL (9.4-12.4); Monocytes Absolute Auto 0.1 X10*3/uL (0.1-1.2); Monocytes Percent Auto 1.9 % (2-11); Neutrophils Absolute Auto 6.7 X10*3/uL (2.0-8.3); Neutrophils Percent Auto 90.5 % (45-73); Platelet Count 390 X10*3/uL (160-400); Red Cell Distribution Width 14.8 % (11.0-16.0); SCAN SMEAR FLAG 1; White Blood Count 7.4 X10*3/uL (4.8-10.8)
[2020-12-02 07:02] LABS: Anion Gap 13 (12-20); Blood Urea Nitrogen 15 mg/dL (9-16); Calcium 8.2 mg/dL (8.4-10.2); Carbon Dioxide 28 mmol/L (22-29); Chloride 102 mmol/L (96-108); Creatinine Clr Calc Pharmacy 68.9; Estimated Glomerular Filt Rate > 60; Glucose Random 178 mg/dL (60-115); Potassium 5.1 mmol/l (3.3-5.1); Sodium 138 mmol/L (135-145)
[2020-12-02 07:49] VITALS: BP 137/67; PULSE 72; RESP 18; TEMP 36.9; O2SAT 97
[2020-12-02] MEDS: 0.9 % Sodium Chloride Flush 3 ML SYRINGE IVFLUSH (07:50)
[2020-12-02] MEDS: Heparin Sodium,Porcine 5,000 UNIT/ML VIAL 5000 UNIT SUBCUT (07:52)
[2020-12-02] MEDS: Albuterol/Iprat 2.5/0.5MG 3 ML AMPUL.NEB INHALE ×2 (07:58→11:21)
[2020-12-02 07:59] VITALS: PULSE 71; O2SAT 96
[2020-12-02 08:01] LABS: Glucose, Whole Blood 124 mg/dL (60-115)
[2020-12-02 08:18] LABS: SLIDE REVIEW VERIFIED
[2020-12-02 11:21] VITALS: PULSE 89; O2SAT 98
[2020-12-02 11:39] LABS: Glucose, Whole Blood 187 mg/dL (60-115)
[2020-12-02] MEDS: Insulin Lispro 100 UNIT/ML 3 ML VIAL SUBCUT (12:21)
--- NOTE | 2020-12-02 12:52 | P.DS_ITS ---
DS: Providers Provider Date of admission: 11/30/20 22:54 Primary care physician: Kayla Chaney MD DS: Diagnosis Discharge Diagnosis (1) COPD exacerbation: Status: Acute (2) Hypothyroidism: Status: Acute (3) Diabetes: Status: Acute (4) Acute respiratory failure with hypoxia: Status: Acute (5) Sepsis: Status: Acute DS: Medications Discharge Medications Home Medications: Home Medications Medication Instructions Recorded Confirmed albuterol sulfate 90 mcg INHALATION DAILY 09/06/20 12/01/20 metformin 500 mg PO DAILY 09/28/20 12/01/20 montelukast 10 mg PO DAILY 09/28/20 12/01/20 prednisone 10 mg PO DAILY 09/28/20 12/01/20 Breo Ellipta 100 inh INHALATION DAILY 12/01/20 12/01/20 levothyroxine 112 mcg PO DAILY 12/01/20 12/01/20 omeprazole 20 mg PO DAILY 12/01/20 12/01/20 DS: Summary Hospital Course Hospital Course: Patient was admitted for sepsis and acute hypoxic respiratory failure secondary to COPD exacerbation. Patient improved significantly with steroids and bronchodilators. He is back to baseline and saturating well on room air. He will be discharged home to continue his maintenance therapy. Time Spent with Patient Time attestation: Total time spent providing and/or coordinating discharge services: Physical Exam Vital Signs: Vital Signs: Last Vital Signs Temp 98.5 F 12/02/20 07:49 Pulse 89 12/02/20 11:21 Resp 18 12/02/20 07:49 BP 137/67 12/02/20 07:49 Pulse Ox 97 12/02/20 07:49 Body Mass Index 19.8 General: AO X 3, no acute distress Resp: diminished CVS: S1,S2,RRR GI: soft, non tender, non distended Neuro: motor grossly intact Psych: appropriate affect DS: Data Data Completed and Pending Labs on day of discharge: 11/30/20 19:18 Albuterol Sulfate (0.083%) [Ventolin (0.083%)] 10 mg INHALE ONCE ONE Magnesium Sulfate/H2O 2 gm in 50 ml IV ONCE methylPREDNISolone Sod Succ/PF [SOLU-MedroL] 60 mg IVPUSH ONCE ONE 11/30/20 19:19 ECG 12 lead EKG Stat EKG Documentation DIRECTED 11/30/20 19:29 Doxycycline Hyclate [Vibramycin] 100 mg PO ONCE ONE cefTRIAXone sodium [Rocephin] 1 gm 0.9 % Sodium Chloride [Ns] 50 ml IV ONCE 11/30/20 19:32 B Type Natriuretic Peptide Stat Basic Metabolic Panel Stat COVID-19 ID NOW ([facility]) Stat Ferritin Stat Hold Lt Blue - Possible Coag Stat Lactate Dehydrogenase Stat Lactic Acid Stat Liver Panel Stat Magnesium Stat Partial Thromboplastin Time Stat Prothrombin Time INR Stat 11/30/20 19:33 Complete Blood Count Auto Diff Stat 11/30/20 19:54 Venous Blood Gas Stat 11/30/20 20:06 XR chest 1V Stat 11/30/20 20:20 cefTRIAXone sodium [Rocephin] 1 gm .ROUTE .STK-MED ONE 11/30/20 20:46 Albuterol Sulfate (0.083%) [Ventolin (0.083%)] 5 mg INHALE ONCE ONE 11/30/20 22:48 Transfer Order Routine 12/01/20 06:00 Basic Metabolic Panel Routine 12/01/20 07:33 Glucose, Whole Blood Routine 12/01/20 13:31 Glucose, Whole Blood Routine 12/01/20 15:08 Glucose, Whole Blood Routine 12/01/20 19:24 cefTRIAXone sodium [Rocephin] 1 gm .ROUTE .STK-MED ONE 12/01/20 20:39 Glucose, Whole Blood Routine 12/02/20 05:53 Basic Metabolic Panel Routine Complete Blood Count Auto Diff Routine SLIDE REVIEW Routine 12/02/20 07:56 Glucose, Whole Blood Routine 12/02/20 11:11 Glucose, Whole Blood Routine Laboratory Last Values WBC 7.4 X10*3/uL (4.8-10.8) 12/02/20 05:53 RBC 4.20 X10*6/uL (4.60-5.80) L 12/02/20 05:53 Hgb 10.5 g/dl (14.0-18.0) L 12/02/20 05:53 Hct 34.3 % (42-52) L 12/02/20 05:53 MCV 81.7 fL (80-98) 12/02/20 05:53 MCH 25.0 pg (27.0-33.0) L 12/02/20 05:53 MCHC 30.6 g/dl (31.0-36.0) L 12/02/20 05:53 RDW 14.8 % (11.0-16.0) 12/02/20 05:53 Plt Count 390 X10*3/uL (160-400) 12/02/20 05:53 MPV 9.7 fL (9.4-12.4) 12/02/20 05:53 Immature Gran % (Auto) 0.4 % (0.0-0.4) 12/02/20 05:53 Neut % (Auto) 90.5 % (45-73) H 12/02/20 05:53 Lymph % (Auto) 7.2 % (20-40) L 12/02/20 05:53 Reagan % (Auto) 1.9 % (2-11) L 12/02/20 05:53 Eos % (Auto) 0.0 % (0-4) 12/02/20 05:53 Baso % (Auto) 0.0 % (0-2) 12/02/20 05:53 Lymph # (Auto) 0.5 X10*3/uL (1.2-4.9) L 12/02/20 05:53 Reagan # (Auto) 0.1 X10*3/uL (0.1-1.2) 12/02/20 05:53 Eos # (Auto) 0.0 X10*3/uL (0.0-0.4) 12/02/20 05:53 Baso # (Auto) 0.0 X10*3/uL (0.0-0.2) 12/02/20 05:53 Abs Immat Gran (auto) 0.03 X10*3/uL (0.00-0.03) 12/02/20 05:53 Absolute Neuts (auto) 6.7 X10*3/uL (2.0-8.3) 12/02/20 05:53 Absolute Nucleated RBC 0.000 X10*3/uL (0.0-0.012) 12/02/20 05:53 Nucleated RBC % (auto) 0.0 /100WBC (0.0-0.2) 12/02/20 05:53 Smear Tech's Comments VERIFIED 12/02/20 05:53 PT 12.9 SEC (10.8-13.0) 11/30/20 19:32 INR 1.1 (0.9-1.1) 11/30/20 19:32 APTT 40.5 SEC (24.1-38.0) H D 11/30/20 19:32 Hold Blue Top SEE NOTE 11/30/20 19:32 VBG pH 7.37 (7.32-7.43) 11/30/20 19:54 VBG pCO2 51 mmhg 11/30/20 19:54 VBG pO2 43 mmhg 11/30/20 19:54 VBG HCO3 29 mmol/L 11/30/20 19:54 VBG O2 Saturation 99.0 % 11/30/20 19:54 VBG Base Excess 2.5 mmol/L 11/30/20 19:54 Sodium 138 mmol/L (135-145) 12/02/20 05:53 Potassium 5.1 mmol/l (3.3-5.1) 12/02/20 05:53 Chloride 102 mmol/L (96-108) 12/02/20 05:53 Carbon Dioxide 28 mmol/L (22-29) 12/02/20 05:53 Anion Gap 13 (12-20) 12/02/20 05:53 BUN 15 mg/dL (9-16) 12/02/20 05:53 Creatinine 0.74 mg/dL (0.5-1.4) 12/02/20 05:53 Estim Creat Clear Calc 68.9 12/02/20 05:53 Estimated GFR > 60 12/02/20 05:53 POC Glucose 187 mg/dL (60-115) H 12/02/20 11:11 Random Glucose 178 mg/dL (60-115) H 12/02/20 05:53 Lactic Acid 1.5 mmol/L (0.5-2.0) 11/30/20 19:32 Calcium 8.2 mg/dL (8.4-10.2) L 12/02/20 05:53 Magnesium 1.8 mg/dL (1.6-2.6) 11/30/20 19:32 Ferritin 22 ng/mL (20-250) 11/30/20 19:32 Total Bilirubin 0.2 mg/dL (0.0-1.0) 11/30/20 19:32 Direct Bilirubin < 0.2 mg/dL (0.0-0.5) 11/30/20 19:32 AST 13 U/L (5-37) D 11/30/20 19:32 ALT 10 U/L (0-40) 11/30/20 19:32 Alkaline Phosphatase 125 U/L (39-117) H D 11/30/20 19:32 Lactate Dehydrogenase 208 U/L (118-273) 11/30/20 19:32 B-Natriuretic Peptide 16 pg/mL (<100) 11/30/20 19:32 Total Protein 6.3 g/dL (6.5-8.0) L 11/30/20 19:32 Albumin 3.7 g/dL (3.5-5.0) 11/30/20 19:32 COVID-19 (ELIO) Negative (Negative) 11/30/20 19:32 COVID-19 Clin Com See Note 11/30/20 19:32 Preliminary micro results at discharge 11/30/20 19:54 Blood Culture - Preliminary Blood - Venous No growth after 24 hours. 11/30/20 19:54 Blood Culture - Preliminary Blood - Venous No growth after 24 hours. Discharge Plan Discharge Patient Disposition: Home, Self-Care Referrals: Kayla Chaney MD [Primary Care Provider] - Discharge Medications: Continued metformin 500 mg tablet 500 mg PO DAILY RF: 0 prednisone 10 mg tablet 10 mg PO DAILY RF: 0 Hold Instructions: Resume on 10/05/20. First complete prednisone 40 mg daily course for 5 days and then switch back to your usual prednisone dose 10 mg. montelukast 10 mg tablet 10 mg PO DAILY RF: 0 levothyroxine 112 mcg tablet 112 mcg PO DAILY RF: 0 Breo Ellipta 100-25 mcg/dose blister with device 100 inh inhalation DAILY RF: 0 omeprazole 20 mg capsule,delayed release(DR/EC) 20 mg PO DAILY RF: 0 albuterol sulfate 90 mcg/actuation HFA aerosol inhaler 90 mcg inhalation DAILY RF: 0 Discontinued dexamethasone [Decadron] 4 mg tablet 8 mg PO DAILY Qty: 18 RF: 0 Discharge Orders: Discharge Order (Routine); Ordered 12/02/20 Ordered By: Ortiz James Activity on Discharge: As tolerated Visit Report Forms: Patient Portal Discharge page Care Plan Goals: recovery Health Concerns: copd Plan of Treatment: continue steroids, inhalers
--- NOTE | 2020-12-02 12:57 | MHC.CM.PN ---
Patient has been medically cleared for dc to home today, no services. Last IMM addressed yesterday.
== END 2020-12-02 14:13 | disposition home or self-care (01) | DRG 871 ==
LOC: HO.ED 21:51 → HO.IMC 23:34
PROVIDERS: Hospitalist; Admitting Provider Internal Medicine; Emergency Provider Emergency Medicine; PCP Internal Medicine; Visit Provider Internal Medicine
DX: A41.9 Sepsis, unspecified organism (principal); J96.01 Acute respiratory failure with hypoxia; J44.1 Chronic obstructive pulmonary disease with (acute) exacerbation; E03.9 Hypothyroidism, unspecified; R65.20 Severe sepsis without septic shock; K21.9 Gastro-esophageal reflux disease without esophagitis; E78.5 Hyperlipidemia, unspecified; F17.210 Nicotine dependence, cigarettes, uncomplicated; E11.9 Type 2 diabetes mellitus without complications; Z71.6 Tobacco abuse counseling; Z20.828 Contact with and (suspected) exposure to other viral communicable diseases; Z86.16 Personal history of COVID-19; Z79.52 Long term (current) use of systemic steroids; Z79.84 Long term (current) use of oral hypoglycemic drugs; Z79.890 Hormone replacement therapy; Z79.899 Other long term (current) drug therapy
CPT/HCPCS: 36415; 71045; 80048; 80076; 82728; 82803; 82947; 83605; 83615; 83735; 83880; 85025; 85610; 85730; 87040; 87635; 93005; 94640; 94644; 96365; 96375; 99285; 99291; J0696; J2920; J2930; J3475

== ENCOUNTER 2020-12-15 14:58 | Inpatient (IN) | payer MEDICARE, MEDICAID, SELFPAY ==
[2020-12-15] VITALS (8 sets, daily range): BP systolic 102–129; BP diastolic 43–84; PULSE 72–95; RESP 12–24; TEMP 36.6–37.1; O2SAT 92–100; BMI 20.7
--- NOTE | 2020-12-15 15:29 | XR_ITS ---
EXAMINATION: XR CHEST CLINICAL INFORMATION: SOB and wheezing. COMPARISON: Chest 11/30/2020 TECHNIQUE: Frontal view of the chest was obtained. FINDINGS: Chronic right apical pleural parenchymal scarring, thickening and calcification. No acute pneumonic process seen there is mild increase interstitial markings in both lungs similar to previous study there is a calcified granuloma left lower lobe, stable. No pleural effusion. The heart size and vascularity is normal. XR/XR chest 1V IMPRESSION: Chronic right upper lobe changes and chronic interstitial lung disease. No acute pneumonic process. No major change from 11/30/2020 chest x-ray.
--- NOTE | 2020-12-15 15:32 | ED.SOB ---
HPI - SOB/Dyspnea General Chief Complaint: Dyspnea Stated Complaint: Asthma Time Seen by Provider: 12/15/20 15:28 Source: patient Mode of arrival: ambulatory Limitations: no limitations History of Present Illness HPI Narrative: 75 y/o male with history of COPD, asthma, DM, pulmonary nodules, hypothyroidism, hx COVID-19 in September 2020 and recent admission to [facility] 11/30-12/02 for acute COPD exacerbation who presents back to the ER today with 3 days of worsening SOB, REED and productive cough. He states he has been using his nebulizer without improvement. He said he did not sleep at all last night because he was having a hard time breathing. Laying down flat and any exertion makes his breathing worse. He reports a cough with yellow phlegm that is new for him. No fever, chills, N/V/D, abdominal pain, muscle aches. No known exposure to covid. Related Data Home Medications Medication Instructions Recorded Confirmed albuterol sulfate 90 mcg INHALATION DAILY 09/06/20 12/01/20 metformin 500 mg PO DAILY 09/28/20 12/01/20 montelukast 10 mg PO DAILY 09/28/20 12/01/20 prednisone 10 mg PO DAILY 09/28/20 12/01/20 Breo Ellipta 100 inh INHALATION DAILY 12/01/20 12/01/20 levothyroxine 112 mcg PO DAILY 12/01/20 12/01/20 omeprazole 20 mg PO DAILY 12/01/20 12/01/20 Allergies Allergy/AdvReac Type Severity Reaction Status Date / Time shellfish derived Allergy Severe ANAPHYLAXIS Verified 11/30/20 19:24 [SHELLFISH DERIVED] pollen extracts [POLLEN] Allergy Intermediate RUNNING Verified 11/30/20 19:24 NOSE, WATERY EYES, SNEEZING varenicline [VARENICLINE] AdvReac Unknown PALPITATION Verified 11/30/20 19:24 S Review of Systems Review of Systems: Constitutional: No Fever, No Chills ENT/Mouth: No sore throat, No Rhinorrhea, No Swallowing Difficulty Cardiovascular: No Chest Pain, + SOB, + Orthopnea, No Edema Respiratory: + Cough, + Sputum, + Wheezing, + dyspnea Gastrointestinal: No Nausea, No Vomiting, No Diarrhea, No abdominal Pain Genitourinary: No Dysuria, No Urinary Frequency, No Hematuria Musculoskeletal: No joint pain, No Myalgias Skin: No Skin Lesions, No rash Neuro: No Weakness, No Numbness, No Dizziness, + Headache Psych: +Anxiety/Panic, No Depression Heme/Lymph: No Bruising, No Lymphadenopathy Endocrine: No Polyuria, No Polydipsia PMFSH Past Medical History Attestation statement: The following information was validated with the patient. Medical History Asthma Cataract COPD (chronic obstructive pulmonary disease) Diabetes GERD (gastroesophageal reflux disease) Hypertension Hypothyroidism Osteoarthritis Osteoporosis Oxygen dependent Ureteral calculi Surgical History History of appendectomy Hx of cataract surgery Social History Social History Household Members: None Housing: Apartment Alcohol intake: never Smoking Status: Current some day smoker Tobacco Type: Cigarette Packs Per Day: 0.5 Cigarettes Per Day: 10.0 Smoked in Last 30 Days: Yes Second Hand Smoke Exposure: Yes Use of substances other than those prescribed or required for medical reasons: No Advance Directives: No Advance Directives Information Provided: Yes service: No Current occupational status: retired Physical Exam Vital Signs: Vital Signs: Last Vital Signs Temp 98.8 F 12/15/20 15:28 Pulse 85 12/15/20 17:34 Resp 19 12/15/20 17:34 BP 129/55 L 12/15/20 17:34 Pulse Ox 99 12/15/20 17:34 Body Mass Index 20.7 Appearance: Alert. Oriented X3. Mild respiratory distress Eyes: Pupils equal, round and reactive to light. ENT: Pharynx normal. Neck: Normal inspection. Neck supple. CVS: Normal heart rate and rhythm. Pulses normal. Respiratory: Diffused inspiratory and expiratory wheezes throughout all lung lim, RR mid 20's, mild retractions after exertion Abdomen: Soft and nontender. +BS x4 Skin: Skin warm and dry. Normal skin color. Normal skin turgor. No rashes. Extremities: No lower extremity edema. Negative Margo's sign Neuro: Oriented X 3. No motor deficit. No sensory deficit. Course Course Course Narrative: 75 y/o male with history of COPD/asthma presenting with SOB, REED, productive cough x3 days. He is on chronic prednisone and has nebulizers at home. Concern for COPD exacerbation and possible HCAP with productive cough. SpO2 91% with mild respiratory distress. CXR and sepsis workup initiated. Will give empiric vanco/zosyn to cover for HCAP, meets SIRS criteria with increased RR, HR, and suspected COPD exacerbation. Placed on 2L NC with improvement in sats to 95%. RT aware of hour long neb ordered, requesting rapid COVID prior to administering. Solumedrol and 2 g magnesium ordered for now. No hx CO2 retention, AAO X3, hold off on ABG for now. Reevaluation(s) Reevaluation #1: Aeration improved after neb, steroids and magnesium. CXR without pneumonia but WBC 13K. Treated for possible HCAP given recent admission. K+ 5.2 noted - given IVF and albuterol, should trend down. will repeat. FiO2 weaned off. When ambulated patient tachypenic and dyspneic, however he does not drop his O2 sats. Given his WOB with exertion will admit for COPD exacerbation. Case d/w Dr. Chadwick. Reevaluation #2: Spoke with Emi Marrero NP who will admit the patient. MDM - SOB/Dyspnea Medical Records Attestation: I reviewed the patient's medical records. Lab Data Attestation: I reviewed the patient's lab results. Result diagrams: 12/15/20 15:48 12/15/20 15:48 Labs: Lab Results 12/15/20 12/15/20 12/15/20 Range/Units 15:48 15:48 15:48 WBC 13.0 H (4.8-10.8) X10*3/uL RBC 4.64 (4.60-5.80) X10*6/uL Hgb 11.6 L (14.0-18.0) g/dl Hct 37.9 L (42-52) % MCV 81.7 (80-98) fL MCH 25.0 L (27.0-33.0) pg MCHC 30.6 L (31.0-36.0) g/dl RDW 15.5 (11.0-16.0) % Plt Count 398 (160-400) X10*3/uL MPV 10.0 (9.4-12.4) fL Immature Gran % (Auto) 0.3 (0.0-0.4) % Neut % (Auto) 91.8 H (45-73) % Lymph % (Auto) 5.9 L (20-40) % [place] % (Auto) 1.5 L (2-11) % Eos % (Auto) 0.2 (0-4) % Baso % (Auto) 0.3 (0-2) % Lymph # (Auto) 0.8 L (1.2-4.9) X10*3/uL [place] # (Auto) 0.2 (0.1-1.2) X10*3/uL Eos # (Auto) 0.0 (0.0-0.4) X10*3/uL Baso # (Auto) 0.0 (0.0-0.2) X10*3/uL Abs Immat Gran (auto) 0.04 H (0.00-0.03) X10*3/uL Absolute Neuts (auto) 11.9 H (2.0-8.3) X10*3/uL Absolute Nucleated RBC 0.000 (0.0-0.012) X10*3/uL Nucleated RBC % (auto) 0.0 (0.0-0.2) /100WBC Smear Tech's Comments VERIFIED Sodium 141 (135-145) mmol/L Potassium 5.2 H (3.3-5.1) mmol/l Chloride 103 (96-108) mmol/L Carbon Dioxide 27 (22-29) mmol/L Anion Gap 16 (12-20) BUN 12 (9-16) mg/dL Creatinine 0.87 (0.5-1.4) mg/dL Estim Creat Clear Calc 60.6 Estimated GFR > 60 Random Glucose 182 H (60-115) mg/dL Lactic Acid (0.5-2.0) mmol/L Calcium 8.9 D (8.4-10.2) mg/dL Magnesium 2.0 (1.6-2.6) mg/dL Total Bilirubin 0.7 (0.0-1.0) mg/dL Direct Bilirubin 0.3 (0.0-0.5) mg/dL AST 12 (5-37) U/L ALT 14 (0-40) U/L Alkaline Phosphatase 108 (39-117) U/L Troponin I High Sens < 3.5 (<3.5-35.0) ng/L B-Natriuretic Peptide 13 (<100) pg/mL Total Protein 6.8 (6.5-8.0) g/dL Albumin 4.3 (3.5-5.0) g/dL Procalcitonin ng/mL COVID-19 (ELIO) (Negative) COVID-19 Clin Com 12/15/20 12/15/20 12/15/20 Range/Units 15:48 16:04 16:04 WBC (4.8-10.8) X10*3/uL RBC (4.60-5.80) X10*6/uL Hgb (14.0-18.0) g/dl Hct (42-52) % MCV (80-98) fL MCH (27.0-33.0) pg MCHC (31.0-36.0) g/dl RDW (11.0-16.0) % Plt Count (160-400) X10*3/uL MPV (9.4-12.4) fL Immature Gran % (Auto) (0.0-0.4) % Neut % (Auto) (45-73) % Lymph % (Auto) (20-40) % [place] % (Auto) (2-11) % Eos % (Auto) (0-4) % Baso % (Auto) (0-2) % Lymph # (Auto) (1.2-4.9) X10*3/uL [place] # (Auto) (0.1-1.2) X10*3/uL Eos # (Auto) (0.0-0.4) X10*3/uL Baso # (Auto) (0.0-0.2) X10*3/uL Abs Immat Gran (auto) (0.00-0.03) X10*3/uL Absolute Neuts (auto) (2.0-8.3) X10*3/uL Absolute Nucleated RBC (0.0-0.012) X10*3/uL Nucleated RBC % (auto) (0.0-0.2) /100WBC Smear Tech's Comments Sodium (135-145) mmol/L Potassium (3.3-5.1) mmol/l Chloride (96-108) mmol/L Carbon Dioxide (22-29) mmol/L Anion Gap (12-20) BUN (9-16) mg/dL Creatinine (0.5-1.4) mg/dL Estim Creat Clear Calc Estimated GFR Random Glucose (60-115) mg/dL Lactic Acid 1.5 (0.5-2.0) mmol/L Calcium (8.4-10.2) mg/dL Magnesium (1.6-2.6) mg/dL Total Bilirubin (0.0-1.0) mg/dL Direct Bilirubin (0.0-0.5) mg/dL AST (5-37) U/L ALT (0-40) U/L Alkaline Phosphatase (39-117) U/L Troponin I High Sens (<3.5-35.0) ng/L B-Natriuretic Peptide (<100) pg/mL Total Protein (6.5-8.0) g/dL Albumin (3.5-5.0) g/dL Procalcitonin 0.25 ng/mL COVID-19 (ELIO) Negative (Negative) COVID-19 Clin Com See Note ECG Data Attestation: I personally reviewed and interpreted this ECG as follows: ECG interpretation date: 12/15/20 ECG interpretation time: 16:17 Interpretation: normal sinus rhythm, HR 86, normal MD interval, no significant change from prior 11/30/2020 Critical Care Time Critical Care Time Critical Care Time: No Discharge Plan Discharge Clinical Impression: COPD exacerbation Patient Disposition: Admitted As Inpatient Prescriptions: No Action metformin 500 mg tablet 500 mg PO DAILY RF: 0 prednisone 10 mg tablet 10 mg PO DAILY RF: 0 Hold Instructions: Resume on 10/05/20. First complete prednisone 40 mg daily course for 5 days and then switch back to your usual prednisone dose 10 mg. montelukast 10 mg tablet 10 mg PO DAILY RF: 0 levothyroxine 112 mcg tablet 112 mcg PO DAILY RF: 0 Breo Ellipta 100-25 mcg/dose blister with device 100 inh inhalation DAILY RF: 0 omeprazole 20 mg capsule,delayed release(DR/EC) 20 mg PO DAILY RF: 0 albuterol sulfate 90 mcg/actuation HFA aerosol inhaler 90 mcg inhalation DAILY RF: 0
--- NOTE | 2020-12-15 15:37 | ECG_ITS ---
Test Reason : SHORTNESS OF BREATH Blood Pressure : / mmHG Vent. Rate : 086 BPM Atrial Rate : 086 BPM P-R Int : 112 ms QRS Dur : 084 ms QT Int : 348 ms P-R-T Axes : 075 053 066 degrees QTc Int : 416 ms Normal sinus rhythm Normal ECG When compared with ECG of 30-NOV-2020 19:37, No significant change was found Referred By: Dee Perez Electronically Signed By:ANTONIO WILLAMS
[2020-12-15 15:58] LABS: Basophils Percent Auto 0.3 % (0-2); Eosinophils Percent Auto 0.2 % (0-4); Hematocrit 37.9 % (42-52); Hemoglobin 11.6 g/dl (14.0-18.0); Imm Gran Abs Auto 0.04 X10*3/uL (0.00-0.03); Imm Gran Pct Auto 0.3 % (0.0-0.4); Lymphocytes Absolute Auto 0.8 X10*3/uL (1.2-4.9); Lymphocytes Percent Auto 5.9 % (20-40); MANUAL DIFF FLAG SCAN; Mean Corpuscular HGB Conc 30.6 g/dl (31.0-36.0); Mean Corpuscular Volume 81.7 fL (80-98); Monocytes Absolute Auto 0.2 X10*3/uL (0.1-1.2); Monocytes Percent Auto 1.5 % (2-11); Neutrophils Absolute Auto 11.9 X10*3/uL (2.0-8.3); Neutrophils Percent Auto 91.8 % (45-73); Platelet Count 398 X10*3/uL (160-400); Red Blood Count 4.64 X10*6/uL (4.60-5.80); Red Cell Distribution Width 15.5 % (11.0-16.0); SCAN SMEAR FLAG 1
[2020-12-15] MEDS: 0.9 % Sodium Chloride 1,000 ML 999 ML IV (16:09)
[2020-12-15] MEDS: methylPREDNISolone Sod Succ/PF 125 MG/2 ML VIAL IVPUSH (16:11)
[2020-12-15] MEDS: Magnesium Sulfate/H2O 2 GM/50 ML PIGGYBACK IV (16:12)
[2020-12-15 16:15] LABS: Alanine Aminotransferase 14 U/L (0-40); Albumin Level 4.3 g/dL (3.5-5.0); Alkaline Phosphatase 108 U/L (39-117); Anion Gap 16 (12-20); Aspartate Amino Transferase 12 U/L (5-37); Bilirubin Direct 0.3 mg/dL (0.0-0.5); Bilirubin Total 0.7 mg/dL (0.0-1.0); Blood Urea Nitrogen 12 mg/dL (9-16); Calcium 8.9 mg/dL (8.4-10.2); Carbon Dioxide 27 mmol/L (22-29); Chloride 103 mmol/L (96-108); Creatinine Clr Calc Pharmacy 60.6; Estimated Glomerular Filt Rate > 60; Glucose Random 182 mg/dL (60-115); Potassium 5.2 mmol/l (3.3-5.1); Sodium 141 mmol/L (135-145); Total Protein 6.8 g/dL (6.5-8.0)
[2020-12-15] MEDS: Piperacillin Sodium/Tazobactam 4.5 GM in 0.9 % Sodium Chloride 100 ML IV (16:15)
--- NOTE | 2020-12-15 16:18 | PC.NURSE ---
Pt feeling SOB but feels less SOB compared to this morning. He is on 2 liters NC and sats are 100%. He recd IV solumedrol and is currently receiving IVF, IV ABX, and IV magnesium. He appears comfortable in the bed in no distress. Lungs wheezy throughout. COVID swab and blood specimens sent to lab. Awaiting results of COVID swab for albuterol shyam pat.
[2020-12-15 16:19] LABS: SLIDE REVIEW VERIFIED
[2020-12-15 16:22] LABS: B Type Natriuretic Peptide 13 pg/mL (<100); Troponin-I High Sensitivity < 3.5 ng/L (<3.5-35.0)
[2020-12-15 16:29] LABS: COVID-19 Test Negative (Negative); IDNOW Serial# 9DD0AD1C; Lactic Acid 1.5 mmol/L (0.5-2.0)
[2020-12-15] MEDS: Albuterol Sulfate (0.083%) 2.5 MG/3 ML VIAL.NEB 10 MG INHALE (16:43)
[2020-12-15 16:58] LABS: Procalcitonin 0.25 ng/mL
[2020-12-15] MEDS: vancomycin HCL 750 MG in 0.9 % Sodium Chloride 250 ML 265 MG IV (17:31)
--- NOTE | 2020-12-15 17:32 | PC.NURSE ---
Hour loong treatment complete. Pt remains wheexy throughout but it sounds less severe than previous assessment. Pt states that he is feeling better at this time. Vanco infusing.
--- NOTE | 2020-12-15 18:55 | PC.NURSE ---
Walking pulse ox performed with pt's sats going from 96 to 93%. Pt also urinated at this time and became very winded. Dee PRADO aware.
--- NOTE | 2020-12-15 19:34 | PM.IMHP ---
History of Present Illness Date of Service: 12/15/20 Chief Complaint: Shortness of breath and cough 75 year old man presenting with shortness of breath. He has history of COPD. He had been using his inhalors with no relief. Last night he had more difficulty breathing. He reported cough with yellow phlegm. He denied fever, chills, nausea, vomiting or diarrhea. He was treated with IV steroid and duonebs. Review of Systems Review of Systems: Denies any recent fever chills or decrease in appetite respiratory See HPI cardiovascular is adjustment of any PND or edema gastrointestinal denies any dysphagia abdominal pain nausea vomiting or diarrhea genitourinary denies any dysuria frequency or hematuria musculoskeletal denies any joint pain or swelling neuropsych denies any weakness or seizures all other systems reviewed are negative FORMERLY [facility], [facility] Medical History Asthma Cataract COPD (chronic obstructive pulmonary disease) Diabetes GERD (gastroesophageal reflux disease) Hypertension Hypothyroidism Osteoarthritis Osteoporosis Oxygen dependent Ureteral calculi Surgical History History of appendectomy Hx of cataract surgery Social History Household Members: Family Housing: Apartment Alcohol intake: never Smoking Status: Current some day smoker Tobacco Type: Cigarette Packs Per Day: 0.5 Cigarettes Per Day: 10.0 Second Hand Smoke Exposure: Yes service: No Current occupational status: retired Meds Allergies Allergy/AdvReac Type Severity Reaction Status Date / Time shellfish derived Allergy Severe ANAPHYLAXIS Verified 11/30/20 19:24 [SHELLFISH DERIVED] pollen extracts [POLLEN] Allergy Intermediate RUNNING Verified 11/30/20 19:24 NOSE, WATERY EYES, SNEEZING varenicline [VARENICLINE] AdvReac Unknown PALPITATION Verified 11/30/20 19:24 S Home Medications Medication Instructions Recorded Confirmed Type albuterol sulfate 90 mcg INHALATION DAILY 09/06/20 12/16/20 History metformin 500 mg PO DAILY 09/28/20 12/16/20 History montelukast 10 mg PO DAILY 09/28/20 12/16/20 History prednisone 10 mg PO DAILY 09/28/20 12/16/20 History Breo Ellipta 100 inh INHALATION DAILY 12/01/20 12/16/20 History levothyroxine 112 mcg PO DAILY 12/01/20 12/16/20 History omeprazole 20 mg PO DAILY 12/01/20 12/16/20 History Physical Exam Vital Signs and Narrative: Vital Signs: Last Vital Signs Temp 98.6 F 12/15/20 18:00 Pulse 82 12/15/20 18:00 Resp 16 12/15/20 18:00 BP 104/84 12/15/20 18:00 Pulse Ox 96 12/15/20 18:00 Body Mass Index 20.7 Appearing in no acute distress head is normocephalic atraumatic eyes pupils are PERRLA sclera is anicteric mouth throat mucous membranes are intact and moist neck is supple no lymphadenopathy, no JVD noted lung sounds Exp wheezes heart regular rate rhythm, clear S1, S2 positive bowel sounds, abdomen is soft, nontender neuro patient is alert x3, no focal deficits Results Labs CBC and Chem 7: 12/16/20 07:06 12/17/20 10:19 Labs: Laboratory Results - last 24 hr 12/15/20 12/15/20 12/15/20 15:48 15:48 15:48 MCV 81.7 MCH 25.0 L MCHC 30.6 L RDW 15.5 Plt Count 398 MPV 10.0 Immature Gran % (Auto) 0.3 Neut % (Auto) 91.8 H Lymph % (Auto) 5.9 L [place] % (Auto) 1.5 L Eos % (Auto) 0.2 Baso % (Auto) 0.3 Lymph # (Auto) 0.8 L [place] # (Auto) 0.2 Eos # (Auto) 0.0 Baso # (Auto) 0.0 Abs Immat Gran (auto) 0.04 H Absolute Neuts (auto) 11.9 H Absolute Nucleated RBC 0.000 Nucleated RBC % (auto) 0.0 Smear Tech's Comments VERIFIED Anion Gap 16 Estim Creat Clear Calc 60.6 Estimated GFR > 60 Random Glucose 182 H Lactic Acid Calcium 8.9 D Magnesium 2.0 Total Bilirubin 0.7 Direct Bilirubin 0.3 AST 12 ALT 14 Alkaline Phosphatase 108 Troponin I High Sens < 3.5 B-Natriuretic Peptide 13 Total Protein 6.8 Albumin 4.3 Procalcitonin COVID-19 ([facility]IO) COVID-19 Clin Com 12/15/20 12/15/20 12/15/20 15:48 16:04 16:04 MCV MCH MCHC RDW Plt Count MPV Immature Gran % (Auto) Neut % (Auto) Lymph % (Auto) [place] % (Auto) Eos % (Auto) Baso % (Auto) Lymph # (Auto) [place] # (Auto) Eos # (Auto) Baso # (Auto) Abs Immat Gran (auto) Absolute Neuts (auto) Absolute Nucleated RBC Nucleated RBC % (auto) Smear Tech's Comments Anion Gap Estim Creat Clear Calc Estimated GFR Random Glucose Lactic Acid 1.5 Calcium Magnesium Total Bilirubin Direct Bilirubin AST ALT Alkaline Phosphatase Troponin I High Sens B-Natriuretic Peptide Total Protein Albumin Procalcitonin 0.25 COVID-19 ([facility]IO) Negative COVID-19 Clin Com See Note Imaging Radiologist's Impressions: Impressions Chest X-Ray 12/15/20 15:29 IMPRESSION: Chronic right upper lobe changes and chronic interstitial lung disease. No acute pneumonic process. No major change from 11/30/2020 chest x-ray. Assessment and Plan (1) Bronchitis: Status: Acute (2) COPD exacerbation: Status: Acute 75 year old man admitted with COPD exacerbation secondary to Bronchitis Bronchitis/COPD exacerbation. Doxycycline, solumedrol, duonebs, Supplemental oxygen as needed Diabetes. Sliding scale, ADA diet. GERD. PPI Hypothyroidism. Continue levothyroxine. Smoker. NRT. Discussed smoking cessation. DVT prophylaxis with Lovenox Case discussed with Dr. Oleary Full code
--- NOTE | 2020-12-15 19:39 | P.EN_ITS ---
Event Note Date of Service: 12/15/20 Event Note: Attending addendum to H&P: Patient seen and examined and case discussed with Emi Marrero NP on the date of service 12/15/20. 75 year old man with history of COPD who had COVID in Sep 2020 and was recently hospitalized in early November for COPD exacerbation presented with few days of worsening dyspnea. Also noted change in charater and quantity of sputum. Feels comfortable now. Exam: Gen: alert, no distress. Chest: normal resp effort, no insp crackles heard, no exp wheezing CV: regular rate, no murmur Abd: Soft, nontender Ext: No leg edema CXR: chronic interstitial findings, no acute pneumonia A/P: 75 year old with COPD exacerbation. Agree with steroids and course of doxycycline for presumed bronchitis given sputum. Nebs and suppl oxygen prn. Remainder as per [employer] SAL[employer] REPRESENTATIVE note.
[2020-12-15] MEDS: Doxycycline Hyclate 100 MG in 0.9 % Sodium Chloride 250 ML 166.67 MG IV (20:18)
[2020-12-15] MEDS: Insulin Lispro 100 UNIT/ML 3 ML VIAL SUBCUT (20:19)
[2020-12-15] MEDS: Enoxaparin Sodium 40 MG/0.4 ML SYRINGE SUBCUT (20:19)
[2020-12-15 20:23] LABS: Glucose, Whole Blood 200 mg/dL (60-115)
[2020-12-15 20:26] LABS: Glucose Urine UA 500 MG/DL (NEG); Leukocyte Esterase Urine NEG (NEG); Nitrite Urine NEG (NEG); PH 6.5 (5.0-8.0); Specific Gravity - Urine 1.025 (1.005-1.025); Urine Blood NEG (NEG); Urine Ketones NEG (NEG); Urine Protein NEG (NEG-TRACE)
[2020-12-15 20:28] LABS: Appearance Urine CLEAR; Color Urine YELLOW
[2020-12-15] MEDS: Albuterol/Iprat 2.5/0.5MG 3 ML AMPUL.NEB INHALE (22:03)
[2020-12-15] MEDS: 0.9 % Sodium Chloride Flush 3 ML SYRINGE IVFLUSH (23:57)
[2020-12-16] VITALS (9 sets, daily range): BP systolic 103–142; BP diastolic 40–61; PULSE 70–85; RESP 16–20; TEMP 36.3–37; O2SAT 94–99
[2020-12-16] MEDS: vancomycin HCL 500 MG in 0.9 % Sodium Chloride 100 ML 110 MG IV ×2 (05:59→19:13)
[2020-12-16 07:22] LABS: Glucose, Whole Blood 150 mg/dL (60-115)
[2020-12-16] MEDS: Doxycycline Hyclate 100 MG in 0.9 % Sodium Chloride 250 ML 166.67 MG IV ×2 (07:30→20:21)
[2020-12-16 07:45] LABS: Hematocrit 32.4 % (42-52); Hemoglobin 10.2 g/dl (14.0-18.0); Mean Corpuscular HGB Conc 31.5 g/dl (31.0-36.0); Mean Corpuscular Hemoglobin 25.1 pg (27.0-33.0); Mean Corpuscular Volume 79.8 fL (80-98); Mean Platelet Volume 10.1 fL (9.4-12.4); Platelet Count 322 X10*3/uL (160-400); Red Blood Count 4.06 X10*6/uL (4.60-5.80); Red Cell Distribution Width 15.1 % (11.0-16.0)
[2020-12-16] MEDS: Albuterol/Iprat 2.5/0.5MG 3 ML AMPUL.NEB INHALE ×4 (07:45→19:45)
[2020-12-16 08:27] LABS: Glucose, Whole Blood 203 mg/dL (60-115)
[2020-12-16] MEDS: Montelukast Sodium 10 MG TABLET PO (09:44)
[2020-12-16] MEDS: Omeprazole 20 MG CAPSULE.DR PO (09:44)
[2020-12-16] MEDS: Levothyroxine Sodium 112 MCG TABLET PO (09:44)
[2020-12-16] MEDS: 0.9 % Sodium Chloride Flush 3 ML SYRINGE IVFLUSH ×2 (09:44→16:42)
--- NOTE | 2020-12-16 10:20 | MHC.CM.PN ---
CM met with patient at the bedside who reports he amb with a cane, lives with a friend and is independent. Patient does have a HCP Heidi [phone] and a copy is on file. Discussed discharge plan, home no services. Patient's sister will provide transportation. CM will continue to follow patient for discharge needs.
[2020-12-16 11:05] LABS: Glucose, Whole Blood 124 mg/dL (60-115)
--- NOTE | 2020-12-16 16:04 | P.PNIM_ITS ---
Subjective Subjective Date of Service: 12/27/20 Interval History: COPD exacerbation Review of Systems Patient still short of breath, denies any chest pain or abdominal pain or fever or chills or nausea or vomiting. Physical Exam Vital Signs: Vital Signs: Last Vital Signs Temp 98.1 F 12/16/20 15:28 Pulse 78 12/16/20 15:30 Resp 18 12/16/20 15:28 BP 126/52 L 12/16/20 15:28 Pulse Ox 94 12/16/20 15:28 Body Mass Index 20.7 Physical exam: Constitutional: Not in acute distress Cvs: rrr, [id number] , no murmur res: Fair air entry, slightly diminished at bases , rhonchii abd: no rebound or guarding ,nt, bs present. ext pulses present , no cyanosis neuro: axo3 , nonfocal. Objective Data Current Medications Generic Name Dose Route Start Last Admin Trade Name Freq PRN Reason Stop Dose Admin Acetaminophen 650 mg 12/15/20 19:32 Acetaminophen 325 Mg Tablet PO Q6H PRN Pain, Mild (Pain Scale 1-3) Albuterol/Ipratropium 3 ml 12/15/20 20:00 12/16/20 15:26 Albuterol/Iprat 2.5/0.5mg 3 Ml Ampul.Neb INHALE 3 ml RQ4H WHILE AWAKE MEHDI Administration Enoxaparin Sodium 40 mg 12/15/20 19:45 12/15/20 20:19 Enoxaparin Sodium 40 Mg/0.4 Ml Syringe SUBCUT 40 mg Q24H MEHDI Administration Fluticasone/Vilanterol 1 puff 12/16/20 09:00 12/16/20 08:23 Fluticasone/Vilanterol 100/25 Blst.W.Dev INHALE Not Given DAILY MEHDI Vancomycin HCl 500 mg/ Sodium 110 mls @ 110 mls/hr 12/16/20 06:00 12/16/20 10:35 Chloride IV Infused Q12H MEHDI Infusion Doxycycline Hyclate 100 mg/ 250 mls @ 166.67 mls/hr 12/15/20 19:32 12/16/20 10:16 Sodium Chloride IV Infused Q12H MEHDI Infusion Insulin Human Lispro 0 unit 12/15/20 21:00 12/16/20 11:46 Insulin Lispro 100 Unit/Ml 3 Ml Vial SUBCUT Not Given QIDACHS COUNTS INCLUDE 234 BEDS AT THE [facility] Protocol Levothyroxine Sodium 112 mcg 12/16/20 09:00 12/16/20 09:44 Levothyroxine Sodium 112 Mcg Tablet PO 112 mcg DAILY MEHDI Administration Methylprednisolone Sodium Succinate 40 mg 12/15/20 19:32 12/16/20 11:49 Methylprednisolone Sod Succ/Pf 40 Mg/Ml Vial IVPUSH 40 mg Q8H MEHDI Administration Montelukast Sodium 10 mg 12/16/20 09:00 12/16/20 09:44 Montelukast Sodium 10 Mg Tablet PO 10 mg DAILY MEHDI Administration Nicotine Polacrilex 2 mg 12/16/20 07:24 Nicotine Polacrilex 2 Mg Gum BUCCAL Q2H PRN withdrawl Omeprazole 20 mg 12/16/20 09:00 12/16/20 09:44 Omeprazole 20 Mg Capsule. PO 20 mg DAILY MEHDI Administration Ondansetron HCl 4 mg 12/15/20 19:32 Ondansetron Hcl 4 Mg/2 Ml Vial IVPUSH Q8H PRN Nausea and Vomiting Pharmacy Consult 1 each 12/15/20 15:45 Consult Rx Vancomycin Dosing MISCELLANE DAILY PRN Consult order Pharmacy Consult 1 each 12/15/20 18:36 Consult Rx Perform Med Rec MISCELLANE ONCE PRN Consult order Sodium Chloride 3 ml 12/16/20 00:00 12/16/20 09:44 0.9 % Sodium Chloride Flush 3 Ml Syringe IVFLUSH 3 ml QSHIFT MEHDI Administration Labs CBC & Chem 7: 12/16/20 07:06 12/17/20 10:19 Assessment and Plan (1) Acute respiratory failure with hypoxia: Status: Acute (2) COVID-19: Status: Acute (3) COPD exacerbation: Status: Acute (4) Hypothyroidism: Status: Acute (5) Diabetes: Status: Acute (6) Sepsis: Status: Acute Assessment and Plan: 74-year-old male past medical history of COPD who presents to the hospital with shortness of breath found to have COPD exacerbation., patient was diagnosed with COVID-19 pneumonia in September but currently negative. 1.acute hypoxic respiratory failure due to COPD exacerbation, history of recent COVID-19 infection in September 2020 (PCR pos 10/27) patient feeling better, oxygenation stable and 94% on room air, chest x-ray shows no evidence of pneumonia, repeat COVID PCR negative tachycardic, tachypnea and fever resolved Will continue Solu-Medrol IV 40 b.i.d., DuoNeb p.r.n. and scheduled, IV azithromycin add cough medication 2. sepsis secondary to COPD exacerbation all symptoms of sepsis tachycardia tachypnea and fever resolved Cbc this morning shows significant leukopenia, will follow CBC,normal LA Continue IV azithromycin to cover COPD exacerbation. follow blood cultures pending 3. diabetes mellitus Blood sugar elevated likely due to steroid, continue diabetic diet, sliding scale insulin, patient take Glucophage at home will verify dose, follow point of care 4. chronic issues hypothyroidism: Continue levothyroxine 5.Tobacco use disorder councilling done DVT prophylaxis: Heparin subQ
[2020-12-16 16:24] LABS: Glucose, Whole Blood 167 mg/dL (60-115)
[2020-12-16] MEDS: Enoxaparin Sodium 40 MG/0.4 ML SYRINGE SUBCUT (19:13)
[2020-12-16 20:16] LABS: Glucose, Whole Blood 152 mg/dL (60-115)
[2020-12-16] MEDS: Insulin Lispro 100 UNIT/ML 3 ML VIAL SUBCUT (20:42)
[2020-12-17] MEDS: 0.9 % Sodium Chloride Flush 3 ML SYRINGE IVFLUSH ×2 (00:52→08:19)
[2020-12-17 03:32] VITALS: BP 149/69; PULSE 70; RESP 20; TEMP 36.5; O2SAT 96
[2020-12-17 06:20] LABS: Vancomycin Trough 6.3 mcg/mL (10.0-20.0)
[2020-12-17 07:36] VITALS: BP 136/50; PULSE 68; RESP 21; TEMP 36.4; O2SAT 95
[2020-12-17] MEDS: Albuterol/Iprat 2.5/0.5MG 3 ML AMPUL.NEB INHALE ×2 (08:04→11:39)
[2020-12-17 08:06] VITALS: PULSE 72
[2020-12-17 08:11] LABS: Glucose, Whole Blood 167 mg/dL (60-115)
[2020-12-17] MEDS: Montelukast Sodium 10 MG TABLET PO (08:17)
[2020-12-17] MEDS: Omeprazole 20 MG CAPSULE.DR PO (08:17)
[2020-12-17] MEDS: Doxycycline Hyclate 100 MG in 0.9 % Sodium Chloride 250 ML 166.67 MG IV (08:18)
[2020-12-17] MEDS: Levothyroxine Sodium 112 MCG TABLET PO (08:18)
[2020-12-17] MEDS: Insulin Lispro 100 UNIT/ML 3 ML VIAL SUBCUT (08:18)
[2020-12-17] MEDS: Sodium Polystyrene Sulfon/Sorb 15 GM/60 ML ORAL.SUSP PO (10:15)
--- NOTE | 2020-12-17 10:21 | MHC.CM.PN ---
CM VERIFIED WITH PT HE DOES HAVE NEBULIZER AT HOME.
--- NOTE | 2020-12-17 10:44 | MHC.CM.PN ---
PT DISCHARGING HOME SELF-CARE TODAY, SISTER TO TRANSPORT.
[2020-12-17 10:58] LABS: Anion Gap 15 (12-20); Blood Urea Nitrogen 18 mg/dL (9-16); Calcium 8.1 mg/dL (8.4-10.2); Carbon Dioxide 25 mmol/L (22-29); Chloride 105 mmol/L (96-108); Creatinine Clr Calc Pharmacy 72.2; Estimated Glomerular Filt Rate > 60; Glucose Random 138 mg/dL (60-115); Potassium 4.6 mmol/l (3.3-5.1); Sodium 140 mmol/L (135-145)
[2020-12-17 11:18] VITALS: BP 125/69; PULSE 76; RESP 20; TEMP 37.1; O2SAT 95
[2020-12-17 11:40] VITALS: PULSE 74; O2SAT 94
[2020-12-17 11:59] LABS: Glucose, Whole Blood 111 mg/dL (60-115)
[2020-12-17] MEDS: predniSONE 20 MG TABLET 40 MG PO (13:02)
--- NOTE | 2020-12-28 16:46 | P.DS_ITS ---
DS: Providers Provider Date of Service: 12/17/20 Date of admission: 12/15/20 19:32 Primary care physician: Kayla Chaney MD DS: Diagnosis Discharge Diagnosis (1) Acute respiratory failure with hypoxia: Status: Acute (2) COVID-19: Status: Acute (3) COPD exacerbation: Status: Acute (4) Hypothyroidism: Status: Acute (5) Diabetes: Status: Acute (6) Sepsis: Status: Acute DS: Medications Discharge Medications Home Medications: Home Medications Medication Instructions Recorded Confirmed albuterol sulfate 90 mcg INHALATION DAILY 09/06/20 12/16/20 metformin 500 mg PO DAILY 09/28/20 12/16/20 montelukast 10 mg PO DAILY 09/28/20 12/16/20 prednisone 10 mg PO DAILY 09/28/20 12/16/20 Breo Ellipta 100 inh INHALATION DAILY 12/01/20 12/16/20 levothyroxine 112 mcg PO DAILY 12/01/20 12/16/20 omeprazole 20 mg PO DAILY 12/01/20 12/16/20 Previous Rx's Medication Instructions Recorded doxycycline hyclate 100 mg PO DAILY #12 cap 12/17/20 prednisone 40 mg PO DAILY #8 tab 12/17/20 DS: Summary Hospital Course Hospital Course: 1.1.acute hypoxic respiratory failure due to COPD exacerbation, history of recent COVID-19 infection in September 2020 (PCR pos 10/27) started on iv Solu-Medrol IV 40 b.i.d., DuoNeb p.r.n. and scheduled, IV azithromycin add cough medication Subsequently patient shortness of breath improved significantly Going home with p.o. steroids and p.o. azithromycin. 2. sepsis secondary to COPD exacerbation all symptoms of sepsis tachycardia tachypnea and fever resolved Started on IV azithromycin to cover COPD exacerbation. follow blood cultures neg sofar Patient is to follow-up pulmonary Dr. Marrero: [phone](cell no.) Above management discussed with the patient in detail length he understand and in agreement with the above plan, time spent 50 minutes and 50% time spent on counseling. Significant findings: As above. Procedures performed: None. Treatment and response: As above. Complications: None. Time Spent with Patient Time attestation: Total time spent providing and/or coordinating discharge services: Discharge coordination time: Greater than 30 minutes Physical Exam Vital Signs: Vital Signs: Last Vital Signs Temp 98.7 F 12/17/20 11:18 Pulse 74 12/17/20 11:40 Resp 20 12/17/20 11:18 BP 125/69 12/17/20 11:18 Pulse Ox 95 12/17/20 11:18 Body Mass Index 20.7 Physical exam : Constitutional: Not in acute distress HEENT: Eyes: Anicteric, no discharge Neck supple Cvs: rrr, [id number] , no murmur res: clear to auscultation ,no rhonchii or wheezing abd: no rebound or guarding ,nt, bs present. ext pulses present , no cyanosis neuro: axo3 , nonfocal. DS: Data Data Completed and Pending Labs on day of discharge: Laboratory Tests 12/15/20 12/15/20 12/15/20 15:48 15:48 15:48 WBC 13.0 H RBC 4.64 Hgb 11.6 L Hct 37.9 L MCV 81.7 MCH 25.0 L MCHC 30.6 L RDW 15.5 Plt Count 398 MPV 10.0 Immature Gran % (Auto) 0.3 Neut % (Auto) 91.8 H Lymph % (Auto) 5.9 L [place] % (Auto) 1.5 L Eos % (Auto) 0.2 Baso % (Auto) 0.3 Lymph # (Auto) 0.8 L [place] # (Auto) 0.2 Eos # (Auto) 0.0 Baso # (Auto) 0.0 Abs Immat Gran (auto) 0.04 H Absolute Neuts (auto) 11.9 H Absolute Nucleated RBC 0.000 Nucleated RBC % (auto) 0.0 Smear Tech's Comments VERIFIED Sodium 141 Potassium 5.2 H Chloride 103 Carbon Dioxide 27 Anion Gap 16 BUN 12 Creatinine 0.87 Estim Creat Clear Calc 60.6 Estimated GFR > 60 POC Glucose Random Glucose 182 H Lactic Acid Calcium 8.9 D Magnesium 2.0 Total Bilirubin 0.7 Direct Bilirubin 0.3 AST 12 ALT 14 Alkaline Phosphatase 108 Troponin I High Sens < 3.5 B-Natriuretic Peptide 13 Total Protein 6.8 Albumin 4.3 Procalcitonin Urine Color Urine Appearance Urine pH Ur Specific [place] Urine Protein Urine Glucose (UA) Urine Ketones Urine Blood Urine Nitrite Ur Leukocyte Esterase Vancomycin Trough COVID-19 ([facility]) COVID-19 Clin Com 12/15/20 12/15/20 12/15/20 15:48 16:04 16:04 WBC RBC Hgb Hct MCV MCH MCHC RDW Plt Count MPV Immature Gran % (Auto) Neut % (Auto) Lymph % (Auto) [place] % (Auto) Eos % (Auto) Baso % (Auto) Lymph # (Auto) [place] # (Auto) Eos # (Auto) Baso # (Auto) Abs Immat Gran (auto) Absolute Neuts (auto) Absolute Nucleated RBC Nucleated RBC % (auto) Smear Tech's Comments Sodium Potassium Chloride Carbon Dioxide Anion Gap BUN Creatinine Estim Creat Clear Calc Estimated GFR POC Glucose Random Glucose Lactic Acid 1.5 Calcium Magnesium Total Bilirubin Direct Bilirubin AST ALT Alkaline Phosphatase Troponin I High Sens B-Natriuretic Peptide Total Protein Albumin Procalcitonin 0.25 Urine Color Urine Appearance Urine pH Ur Specific [place] Urine Protein Urine Glucose (UA) Urine Ketones Urine Blood Urine Nitrite Ur Leukocyte Esterase Vancomycin Trough COVID-19 ([facility]) Negative COVID-19 Clin Com See Note 12/15/20 12/15/20 12/16/20 20:11 20:17 07:06 WBC 8.0 RBC 4.06 L Hgb 10.2 L Hct 32.4 L MCV 79.8 L MCH 25.1 L MCHC 31.5 RDW 15.1 Plt Count 322 MPV 10.1 Immature Gran % (Auto) Cancelled Neut % (Auto) Cancelled Lymph % (Auto) Cancelled [place] % (Auto) Cancelled Eos % (Auto) Cancelled Baso % (Auto) Cancelled Lymph # (Auto) Cancelled [place] # (Auto) Cancelled Eos # (Auto) Cancelled Baso # (Auto) Cancelled Abs Immat Gran (auto) Cancelled Absolute Neuts (auto) Cancelled Absolute Nucleated RBC 0.000 Nucleated RBC % (auto) 0.0 Smear Tech's Comments Sodium Potassium Chloride Carbon Dioxide Anion Gap BUN Creatinine Estim Creat Clear Calc Estimated GFR POC Glucose 200 H Random Glucose Lactic Acid Calcium Magnesium Total Bilirubin Direct Bilirubin AST ALT Alkaline Phosphatase Troponin I High Sens B-Natriuretic Peptide Total Protein Albumin Procalcitonin Urine Color YELLOW Urine Appearance CLEAR Urine pH 6.5 Ur Specific [place] 1.025 Urine Protein NEG Urine Glucose (UA) 500 H Urine Ketones NEG Urine Blood NEG Urine Nitrite NEG Ur Leukocyte Esterase NEG Vancomycin Trough COVID-19 ([facility]) COVID-19 Clin Com 12/16/20 12/16/20 12/16/20 07:18 08:23 11:02 WBC RBC Hgb Hct MCV MCH MCHC RDW Plt Count MPV Immature Gran % (Auto) Neut % (Auto) Lymph % (Auto) [place] % (Auto) Eos % (Auto) Baso % (Auto) Lymph # (Auto) [place] # (Auto) Eos # (Auto) Baso # (Auto) Abs Immat Gran (auto) Absolute Neuts (auto) Absolute Nucleated RBC Nucleated RBC % (auto) Smear Tech's Comments Sodium Potassium Chloride Carbon Dioxide Anion Gap BUN Creatinine Estim Creat Clear Calc Estimated GFR POC Glucose 150 H 203 H 124 H Random Glucose Lactic Acid Calcium Magnesium Total Bilirubin Direct Bilirubin AST ALT Alkaline Phosphatase Troponin I High Sens B-Natriuretic Peptide Total Protein Albumin Procalcitonin Urine Color Urine Appearance Urine pH Ur Specific [place] Urine Protein Urine Glucose (UA) Urine Ketones Urine Blood Urine Nitrite Ur Leukocyte Esterase Vancomycin Trough COVID-19 ([facility]) COVID-[employer] 12/16/20 12/16/20 12/17/20 16:18 20:12 04:35 WBC RBC Hgb Hct MCV MCH MCHC RDW Plt Count MPV Immature Gran % (Auto) Neut % (Auto) Lymph % (Auto) [place] % (Auto) Eos % (Auto) Baso % (Auto) Lymph # (Auto) [place] # (Auto) Eos # (Auto) Baso # (Auto) Abs Immat Gran (auto) Absolute Neuts (auto) Absolute Nucleated RBC Nucleated RBC % (auto) Smear Tech's Comments Sodium Potassium Chloride Carbon Dioxide Anion Gap BUN Creatinine Estim Creat Clear Calc Estimated GFR POC Glucose 167 H 152 H Random Glucose Lactic Acid Calcium Magnesium Total Bilirubin Direct Bilirubin AST ALT Alkaline Phosphatase Troponin I High Sens B-Natriuretic Peptide Total Protein Albumin Procalcitonin Urine Color Urine Appearance Urine pH Ur Specific [place] Urine Protein Urine Glucose (UA) Urine Ketones Urine Blood Urine Nitrite Ur Leukocyte Esterase Vancomycin Trough 6.3 L COVID-19 ([facility]) COVID-19 [employer] 12/17/20 12/17/20 12/17/20 07:33 10:19 11:17 WBC RBC Hgb Hct MCV MCH MCHC RDW Plt Count MPV Immature Gran % (Auto) Neut % (Auto) Lymph % (Auto) [place] % (Auto) Eos % (Auto) Baso % (Auto) Lymph # (Auto) [place] # (Auto) Eos # (Auto) Baso # (Auto) Abs Immat Gran (auto) Absolute Neuts (auto) Absolute Nucleated RBC Nucleated RBC % (auto) Smear Tech's Comments Sodium 140 Potassium 4.6 Chloride 105 Carbon Dioxide 25 Anion Gap 15 BUN 18 H Creatinine 0.73 Estim Creat Clear Calc 72.2 Estimated GFR > 60 POC Glucose 167 H 111 Random Glucose 138 H Lactic Acid Calcium 8.1 L D Magnesium Total Bilirubin Direct Bilirubin AST ALT Alkaline Phosphatase Troponin I High Sens B-Natriuretic Peptide Total Protein Albumin Procalcitonin Urine Color Urine Appearance Urine pH Ur Specific [place] Urine Protein Urine Glucose (UA) Urine Ketones Urine Blood Urine Nitrite Ur Leukocyte Esterase Vancomycin Trough COVID-19 ([facility]) COVID-19 Clin Com Discharge Plan Discharge Patient Disposition: Home, Self-Care Referrals: Kayla Chaney MD [Primary Care Provider] - 1 Week (Please call and schedule a follow up appointment within 1 week.) Discharge Medications: New prednisone 20 mg tablet 40 mg PO DAILY Qty: 8 RF: 0 doxycycline hyclate 100 mg capsule 100 mg PO DAILY Qty: 12 RF: 0 Continued metformin 500 mg tablet 500 mg PO DAILY RF: 0 montelukast 10 mg tablet 10 mg PO DAILY RF: 0 levothyroxine 112 mcg tablet 112 mcg PO DAILY RF: 0 Breo Ellipta 100-25 mcg/dose blister with device 100 inh inhalation DAILY RF: 0 omeprazole 20 mg capsule,delayed release(DR/EC) 20 mg PO DAILY RF: 0 albuterol sulfate 90 mcg/actuation HFA aerosol inhaler 90 mcg inhalation DAILY RF: 0 Held prednisone 10 mg tablet 10 mg PO DAILY RF: 0 Hold Instructions: start after completing po steriods taper. Discharge Orders: Discharge Order (Routine); Ordered 12/17/20 Ordered By: Bob Nowak Diet: advance to usual diet and other Activity on Discharge: As tolerated Visit Report Forms: Patient Portal Discharge page Care Plan Goals: Patient came with COPD exacerbation-started on nebs, steroids, , doxycycline: Subsequently patient shortness of breath improved significantly. CBC shows some lymphopenia: Monitor CBC outpatient. COVID negative. low potassium diet. Patient is to follow-up pulmonary Dr. Marrero: [phone](cell no.) Health Concerns: as above. Plan of Treatment: as above. Discharge Date/Time: 12/17/20 13:35
== END 2020-12-17 13:35 | disposition home or self-care (01) | DRG 871 ==
LOC: HO.ED 19:09 → HO.EDOVER 19:46 → HO.IMC 12-16 06:03 → HO.S3 12-16 16:35
PROVIDERS: Nurse Practitioner Acute Care; Physician Assistant; Admitting Provider Internal Medicine; Emergency Provider Emergency Medicine Emergency Medical Services; PCP Internal Medicine; Visit Provider Internal Medicine
DX: A41.9 Sepsis, unspecified organism (principal); J96.01 Acute respiratory failure with hypoxia; J44.1 Chronic obstructive pulmonary disease with (acute) exacerbation; K21.9 Gastro-esophageal reflux disease without esophagitis; E03.9 Hypothyroidism, unspecified; Z99.81 Dependence on supplemental oxygen; E11.9 Type 2 diabetes mellitus without complications; F17.210 Nicotine dependence, cigarettes, uncomplicated; Z20.822 Contact with and (suspected) exposure to COVID-19; Z86.16 Personal history of COVID-19; Z71.6 Tobacco abuse counseling; Z79.52 Long term (current) use of systemic steroids; Z79.84 Long term (current) use of oral hypoglycemic drugs; Z79.890 Hormone replacement therapy; Z79.899 Other long term (current) drug therapy
CPT/HCPCS: 36415; 71045; 80048; 80076; 80202; 81003; 82947; 83605; 83735; 83880; 84145; 84484; 85025; 85027; 87040; 87635; 93005; 94640; 94644; 96365; 96366; 96367; 96375; 99285; J1650; J2543; J2920; J2930; J3370; J3475

== ENCOUNTER 2020-12-23 09:46 | Outpatient (REF) | payer MEDICARE, MEDICAID, SELFPAY ==
--- NOTE | 2020-12-23 09:48 | CT_ITS ---
EXAMINATION: CT CHEST WITHOUT CONTRAST CLINICAL INFORMATION: Chronic right upper lobe changes and chronic interstitial lung disease. COMPARISON: CT chest 09/10/2020 TECHNIQUE: Multidetector volumetric CT imaging of the chest was done. Axial MIP volume rendering provided. Sagittal and coronal reformatted images were obtained. This CT examination was performed using dose optimization techniques as appropriate, variously including the following: *Automated exposure control *Adjustment of mA and/or kV according to patient size (this includes techniques or standardized protocols for targeted exams where dose is matched to indication/reason for exam; i.e. 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 LUNGS: There is diffuse centrilobular emphysema with bullous changes in right upper lobe. There is bilateral apical parenchymal scarring and apical pleural thickening. There is a bilobed right lower lobe 1 cm nodule image 29/4, calcified 6 mm nodule left lower lobe axial image 46/4. Focal atelectasis/scarring is seen in the right lower lobe. There is a spiculated slightly cavitary appearing lesion in the right lower lobe measuring 1.1 x 0.7 cm on axial image 481/7. 2 mm punctate calcified nodule seen in left CP angle axial image 491/7. 2 mm calcified nodule along the right major fissure axial image 401/7, 1 mm subpleural noncalcified nodule right upper lobe image 396/7. There is bilateral upper lobe and lower lobe peribronchial thickening with mild bronchiectasis likely from secondary airway inflammatory changes. MEDIASTINUM: The heart size and pulmonary vascularity is normal. The central trachea is dilated with widely patent trachea and the bronchi. Small shotty lymph nodes are seen in the mediastinum. The thyroid lobes are symmetrical and normal. The ascending aorta is normal caliber. No pericardial effusion seen. PLEURA: There are calcified right pleural plaques without pleural effusion or thickening. AXILLA: Axilla and the chest wall appear unremarkable. UPPER ABDOMEN: The visualized liver, spleen, pancreas, and bilateral adrenal glands are unremarkable. OSSEOUS STRUCTURES: No lytic or sclerotic process seen. CT/CT chest wo con IMPRESSION: Diffuse emphysema with significant bullous changes and bilateral apical parenchymal scarring and pleural thickening. Also visualized are right pleural calcified plaques. There is diffuse moderate and small airway disease with peribronchial wall thickening and mild bronchiectasis. No intrabronchial lesion or debris seen. There are bilateral pulmonary nodules. The largest spiculated appearing lesion in the right lower lobe measures 1.1 cm compared to 1 cm on the previous study. Spiculated lesion in the right lower lobe measuring 1.1 cm was cavitary lesion described on the previous exam. All these nodules appear stable. Overall, the above findings are unchanged to previous exam 09/10/2020. Recommend continued long-term 1-year followup.
== END 2020-12-23 09:47 | disposition home or self-care (01) ==
LOC: HO.CT 09:46
PROVIDERS: Visit Provider Internal Medicine Pulmonary Disease
DX: R91.8 Other nonspecific abnormal finding of lung field (principal)
CPT/HCPCS: 71250

== ENCOUNTER 2021-01-20 12:48 | Observation (INO) | payer MEDICARE, MEDICAID, SELFPAY ==
--- NOTE | ~2021-01-20 | XR_ITS ---
EXAMINATION: XR CHEST CLINICAL INFORMATION: Wheezing. Evaluate for pneumonia. COMPARISON: Previous chest x-ray most recent 12/15/2020 TECHNIQUE: Frontal view of the chest was obtained. FINDINGS: The cardiac and mediastinal contours are stable. There is right apical pleural parenchymal scarring and calcification that is unchanged. There is a 6 mm calcified left lower lobe nodule that is stable. There is question of bronchial wall thickening seen in the right upper lobe. No evidence of pneumonia is seen. There is no pleural effusion or pneumothorax. There are degenerative changes of the spine. XR/XR chest 1V IMPRESSION: Question bronchial wall thickening in the right upper lobe. No evidence of pneumonia.
--- NOTE | ~2021-01-20 | CT_ITS ---
EXAMINATION: CT CHEST WITHOUT CONTRAST CLINICAL INFORMATION: Question pneumonia COMPARISON: Previous chest x-ray most recent from earlier the same day and chest CT scan most recent 12/23/2020 TECHNIQUE: Multidetector volumetric CT imaging of the chest was done. Axial MIP volume rendering provided. Sagittal and coronal reformatted images were obtained. This CT examination was performed using dose optimization techniques as appropriate, variously including the following: *Automated exposure control *Adjustment of mA and/or kV according to patient size (this includes techniques or standardized protocols for targeted exams where dose is matched to indication/reason for exam; i.e. extremities or head) *Use of iterative reconstruction technique DLP: 199 mGy-cm FINDINGS: LUNGS: There is evidence of emphysema. There is biapical pleural and parenchymal scarring, right greater than left and right apical pleural calcification. There is a 1 x 1.2cm superior segment right lower lobe nodule axial image 212 series 5 that appears unchanged. There is a 1 cm calcified left lower lobe nodule axial image 360 series 5 that is unchanged. There is an abnormal parenchymal density seen in the posterior medial costophrenic sulcus of the right lower lobe measuring approximately 1 cm axial image 391 series 5 that is unchanged. There is diffuse bronchial wall thickening. There may be some increased bronchial soft tissue opacification seen suggestive of airways disease. No pneumonia is seen. MEDIASTINUM: The heart does not appear enlarged. The thoracic aorta is tortuous. There are small mediastinal lymph nodes that are stable. There is no pericardial effusion. PLEURA: There are right pleural calcifications. There is no pleural effusion or pneumothorax. AXILLA: No lymphadenopathy. UPPER ABDOMEN: There is a calcification in the upper pole of the right kidney suggestive of a stone. OSSEOUS STRUCTURES: Unremarkable. CT/CT chest wo con IMPRESSION: Emphysema. Biapical pleural parenchymal scarring, right greater than left. Stable calcified and noncalcified pulmonary nodules. Evidence of airways disease with diffuse bronchial wall thickening and some bronchial soft tissue opacification. This is slightly increased from previous chest CT 12/23/2020. No evidence of pneumonia.
[2021-01-20 12:52] VITALS: BP 134/56; PULSE 115; RESP 28; TEMP 36.8; O2SAT 97; BMI 21.4
[2021-01-20 13:51] VITALS: BP 148/68; PULSE 95; RESP 26; TEMP 36.8; O2SAT 95
--- NOTE | 2021-01-20 13:59 | ECG_ITS ---
Test Reason : DIFFICULTY BREATHING Blood Pressure : / mmHG Vent. Rate : 087 BPM Atrial Rate : 087 BPM P-R Int : 118 ms QRS Dur : 086 ms QT Int : 334 ms P-R-T Axes : 079 062 070 degrees QTc Int : 401 ms Normal sinus rhythm Normal ECG When compared with ECG of 15-DEC-2020 15:39, No significant change was found Referred By: Harjeet Kincaid Electronically Signed By:ADELE JOEL MD
--- NOTE | 2021-01-20 14:07 | ED.ASTHMA ---
HPI - Asthma General Chief Complaint: Asthma <PHUONG Mccloud - Last Filed: 01/20/21 19:14> Stated Complaint: ASTHMA <PHUONG Mccloud - Last Filed: 01/20/21 19:14> Time Seen by Provider: 01/20/21 13:50 <PHUONG Mccloud - Last Filed: 01/20/21 19:14> Source: patient <PHUONG Mccloud - Last Filed: 01/20/21 19:14> Mode of arrival: ambulatory <PHUONG Mccloud - Last Filed: 01/20/21 19:14> Limitations: no limitations <PHUONG Mccloud Last Filed: 01/20/21 19:14> History of Present Illness HPI Narrative: Patient presents to ED for asthma exacerbation. Patient states since last night having shortness of breath, coughing up phlegm, and wheezing. Patient states known history of severe asthma/COPD. Patient denies any swelling of lower extremities, recent long travel, recent surgery. <PHUONG Mccloud - Last Filed: 01/20/21 19:14> MD complaint: asthma attack <PHUONG Mccloud - Last Filed: 01/20/21 19:14> Related Data Home Medications: Home Medications Medication Instructions Recorded Confirmed albuterol sulfate 90 mcg INHALATION DAILY 09/06/20 01/20/21 metformin 500 mg PO DAILY 09/28/20 01/20/21 prednisone 10 mg PO DAILY 09/28/20 01/20/21 levothyroxine 112 mcg PO DAILY@0600 12/01/20 01/20/21 omeprazole 20 mg PO DAILY 12/01/20 01/20/21 calcium carbonate-vitamin D3 1 tab PO BID 01/20/21 01/20/21 [Oyster Shell Calcium-Vit D3] fluticasone propion-salmeterol 1 inh INHALATION BID 01/20/21 01/20/21 ipratropium-albuterol 1 vial INHALATION QID 01/20/21 01/20/21 <PHUONG Mccloud Last Filed: 01/20/21 19:14> Allergies/Adverse Reactions: Allergies Allergy/AdvReac Type Severity Reaction Status Date / Time shellfish derived Allergy Severe ANAPHYLAXIS Verified 11/30/20 19:24 [SHELLFISH DERIVED] pollen extracts [POLLEN] Allergy Intermediate RUNNING Verified 11/30/20 19:24 NOSE, WATERY EYES, SNEEZING varenicline [VARENICLINE] AdvReac Unknown PALPITATION Verified 11/30/20 19:24 S <PHUONG Mccloud - Last Filed: 01/20/21 19:14> Review of Systems Review of Systems: Yes all other systems are reviewed and are negative <PHUONG Mccloud - Last Filed: 01/20/21 19:14> Constitutional: Constitutional: Reports as per HPI and Reports no additional constitutional complaints <PHUONG Mccloud - Last Filed: 01/20/21 19:14> Eyes: Eyes: Reports as per HPI and Reports no additional eye complaints <PHUONG Mccloud - Last Filed: 01/20/21 19:14> ENT: Reports system reviewed and no additional complaints, except as documented and Reports as per HPI <PHUONG Mccloud Last Filed: 01/20/21 19:14> Cardiovascular: Cardiovascular: Reports as per HPI, Reports no additional cardiovascular complaints, Reports chest pain (Only with cough) and Reports dyspnea <PHUONG Mccloud - Last Filed: 01/20/21 19:14> Respiratory: Respiratory: Reports as per HPI, Reports no additional respiratory complaints, Reports dyspnea and Reports wheezing <PHUONG Mccloud - Last Filed: 01/20/21 19:14> Gastrointestinal: Gastrointestinal: Reports as per HPI and Reports no additional gastrointestinal complaints <PHUONG Mccloud Last Filed: 01/20/21 19:14> Genitourinary: Genitourinary: Reports no additional male genitourinary complaints and Reports as per HPI <PHUONG Mccloud - Last Filed: 01/20/21 19:14> Musculoskeletal: Musculoskeletal: Reports no additional musculoskeletal complaints and Reports as per HPI <PHUONG Mcclodu - Last Filed: 01/20/21 19:14> Neurologic: Reports system reviewed and no additional complaints, except as documented and Reports as per HPI <PHUONG Mccloud - Last Filed: 01/20/21 19:14> Psychiatric: Psychiatric: Reports no additional psychiatric complaints and Reports as per HPI <PHUONG Mccloud - Last Filed: 01/20/21 19:14> Allergic/Immunologic: Allergic/Immunologic: Reports wheezing <PHUONG Mccloud - Last Filed: 01/20/21 19:14> [facility] Past Medical History Medical History: Medical History Asthma Cataract COPD (chronic obstructive pulmonary disease) Diabetes GERD (gastroesophageal reflux disease) Hypertension Hypothyroidism Osteoarthritis Osteoporosis Oxygen dependent Ureteral calculi <PHUONG Mccloud - Last Filed: 01/20/21 19:14> Surgical History: Surgical History History of appendectomy Hx of cataract surgery <PHUONG Mccloud - Last Filed: 01/20/21 19:14> Social History Social History: Social History Household Members: Family Housing: Apartment Do you presently have visiting nurse or other home services: No Alcohol intake: never Smoking Status: Light tobacco smoker Tobacco Type: Cigarette Packs Per Day: 0.5 Cigarettes Per Day: 5 Years Smoked: 60 Smoked in Last 30 Days: Yes Patient Interested in Nicotine Replacement: Yes Patient Given Instructions on How to Stop Smoking: Yes Date Education Initiated: 01/21/21 Second Hand Smoke Exposure: No Use of substances other than those prescribed or required for medical reasons: No Currently Displaying Signs/Symptoms of Drug Intoxication Withdrawal: No Have you been hit, kicked, punched, or otherwise hurt by someone within the past year? If so, by whom?: No Do you feel safe in your current relationship?: Yes Is there a partner from a previous relationship who is making you feel unsafe now?: No Are you made to feel afraid or neglected: No Advance Directives: No Advance Directives Information Provided: No Advance Directives on File: No Do you have thoughts of harming others: None Do you have a plan to hurt others: No Plan Recently lost weight without trying: No service: No Current occupational status: retired <PHUONG Mccloud - Last Filed: 01/20/21 19:14> Physical Exam Vital Signs: Vital Signs: Last Vital Signs Temp 97.8 F 01/21/21 09:43 Pulse 90 01/21/21 09:43 Resp 23 H 01/21/21 09:43 BP 120/57 L 01/21/21 09:43 Pulse Ox 93 01/21/21 09:43 Body Mass Index 21.4 <PHUONG Mccloud Last Filed: 01/20/21 19:14> Vital Signs: Last Vital Signs Temp 97.8 F 01/21/21 09:43 Pulse 90 01/21/21 09:43 Resp 23 H 01/21/21 09:43 BP 120/57 L 01/21/21 09:43 Pulse Ox 93 01/21/21 09:43 Body Mass Index 21.4 <Nick Khan MD - Last Filed: 01/21/21 10:04> Const: General: cooperative, healthy appearing, comfortable, no acute distress, well developed, alert, awake and Physically active <PHUONG Mccloud - Last Filed: 01/20/21 19:14> Orientation/consciousness: patient oriented x3 <PHUONG Mccloud - Last Filed: 01/20/21 19:14> HENMT: Head: Yes normal to inspection, Yes No palpable skull fracture present, Yes normocephalic, Yes atraumatic, No abrasion, No Yang's sign, No contusion, No cranial bruits, No hematoma, No laceration, No occipital foramen tenderness, No palpable skull fracture, No raccoon eyes, No scalp tenderness, No Temporal artery tenderness present and No periorbital ecchymosis <PHUONG Mccloud - Last Filed: 01/20/21 19:14> Eyes: General: appearance normal, both eyes and all related structures <PHUONG Mccloud Last Filed: 01/20/21 19:14> Neck: Neck: Yes normal visual inspection, Yes full ROM, Yes no lymphadenopathy, Yes no meningeal signs, Yes trachea midline, Yes supple and No tender <PHUONG Mccloud Last Filed: 01/20/21 19:14> Chest: Chest palpation & inspection: normal inspection of the chest and normal palpation of entire chest wall <PHUONG Mccloud Last Filed: 01/20/21 19:14> Resp: Effort & Inspection: normal respiratory effort and not able to speak in complete sentences <PHUONG Mccloud Last Filed: 01/20/21 19:14> Auscultation: wheezes (Diffuse) expiratory wheezes <PHUONG Mccloud - Last Filed: 01/20/21 19:14> Cardio: Jugular venous distension: no JVD <PHUONG Mccloud - Last Filed: 01/20/21 19:14> Heart sounds: S1 normal heart sound present and S2 normal heart sound present <PHUONG Mccloud - Last Filed: 01/20/21 19:14> GI: Inspection: Yes normal to inspection and No abdominal wall ecchymosis <PHUONG Mccloud - Last Filed: 01/20/21 19:14> Palpation (GI): Soft to palpation, not firm, nontender, no guarding and not rigid <PHUONG Mccloud - Last Filed: 01/20/21 19:14> : General: No CVA tenderness and Yes no CVA tenderness <PHUONG Mccloud - Last Filed: 01/20/21 19:14> Back/Spine/Pelvis: Back: no CVA tenderness, No CVA tenderness and No back tenderness <PHUONG Mccloud - Last Filed: 01/20/21 19:14> Skin: General skin exam: no rashes or lesions noted and elasticity normal <PHUONG Mccloud Last Filed: 01/20/21 19:14> Neuro: General: patient oriented x3, no meningeal signs and CN's II-XI intact bilaterally <PHUONG Mccloud - Last Filed: 01/20/21 19:14> Cranial nerves: Yes CN's II-XII intact bilaterally <PHUONG Mccloud - Last Filed: 01/20/21 19:14> Extrem: Other: Lower extremities negative for any swelling, pitting edema, redness, or calf pain <PHUONG Mccloud Last Filed: 01/20/21 19:14> Psych: Appearance: grossly normal, well kempt and not disheveled <PHUONG Mccloud - Last Filed: 01/20/21 19:14> Course Course Course Narrative: Patient will be treated as COPD exacerbation. Patient also had EKG and cardiac labs due to age and history of high blood pressure and diabetes. <PHUONG Mccloud Last Filed: 01/20/21 19:14> I have reviewed the chart <Nick Khan MD - Last Filed: 01/21/21 10:04> Reevaluation(s) Reevaluation #1: Chest CT shows emphysema. Patient lactic acid came back negative. Patient's COVID swab came back negative. Patient still have wheezing lungs. Patient states he feels better, but on ambulation oxygen level dropped to 90% on room air. Patient is not on any home oxygen. Speak to hospitalist for admission for COPD exacerbation <PHUONG Mccloud - Last Filed: 01/20/21 19:14> Time: 16:24 <PHUONG Mccloud - Last Filed: 01/20/21 19:14> MDM - Asthma MDM Narrative Medical decision making narrative: COPD exacerbation <PHUONG Mccloud - Last Filed: 01/20/21 19:14> Lab Data Result diagrams: : 01/21/21 06:47 01/21/21 06:47 <PHUONG Mccloud - Last Filed: 01/20/21 19:14> Labs: Lab Results 01/20/21 01/20/21 01/20/21 Range/Units 14:22 14:22 14:22 WBC 6.7 (4.8-10.8) X10*3/uL RBC 4.30 L (4.60-5.80) X10*6/uL Hgb 10.7 L (14.0-18.0) g/dl Hct 35.2 L (42-52) % MCV 81.9 (80-98) fL MCH 24.9 L (27.0-33.0) pg MCHC 30.4 L (31.0-36.0) g/dl RDW 15.5 (11.0-16.0) % Plt Count 314 (160-400) X10*3/uL MPV 9.6 (9.4-12.4) fL Immature Gran % (Auto) 0.4 (0.0-0.4) % Neut % (Auto) 62.5 (45-73) % Lymph % (Auto) 22.6 (20-40) % [place] % (Auto) 6.6 (2-11) % Eos % (Auto) 7.5 H (0-4) % Baso % (Auto) 0.4 (0-2) % Lymph # (Auto) 1.5 (1.2-4.9) X10*3/uL [place] # (Auto) 0.4 (0.1-1.2) X10*3/uL Eos # (Auto) 0.5 H (0.0-0.4) X10*3/uL Baso # (Auto) 0.0 (0.0-0.2) X10*3/uL Abs Immat Gran (auto) 0.03 (0.00-0.03) X10*3/uL Absolute Neuts (auto) 4.2 (2.0-8.3) X10*3/uL Absolute Nucleated RBC 0.000 (0.0-0.012) X10*3/uL Nucleated RBC % (auto) 0.0 (0.0-0.2) /100WBC PT 12.5 (10.8-13.0) SEC INR 1.1 (0.9-1.1) APTT 40.3 H (24.1-38.0) SEC Sodium 139 (135-145) mmol/L Potassium 4.5 (3.3-5.1) mmol/L Chloride 104 (96-108) mmol/L Carbon Dioxide 26 (22-29) mmol/L Anion Gap 14 (12-20) BUN 8 L D (9-16) mg/dL Creatinine 0.77 (0.5-1.4) mg/dL Estim Creat Clear Calc 70.7 Estimated GFR > 60 Random Glucose 124 H (60-115) mg/dL Lactic Acid (0.5-2.0) mmol/L Calcium 8.4 (8.4-10.2) mg/dL Ferritin 11 L (20-250) ng/mL Total Bilirubin 0.5 (0.0-1.0) mg/dL Direct Bilirubin < 0.2 (0.0-0.5) mg/dL AST 14 (5-37) U/L ALT 10 (0-40) U/L Alkaline Phosphatase 117 (39-117) U/L Lactate Dehydrogenase 213 (118-273) U/L Troponin I High Sens (<3.5-35.0) ng/L B-Natriuretic Peptide (<100) pg/mL Total Protein 6.1 L (6.5-8.0) g/dL Albumin 3.7 (3.5-5.0) g/dL Procalcitonin ng/mL Coronavirus (PCR) (Negative) Influenza Type A (PCR) (Negative) Influenza Type B (PCR) (Negative) RSV RNA Qual (PCR) (Negative) 01/20/21 01/20/21 01/20/21 Range/Units 14:22 14:22 14:22 WBC (4.8-10.8) X10*3/uL RBC (4.60-5.80) X10*6/uL Hgb (14.0-18.0) g/dl Hct (42-52) % MCV (80-98) fL MCH (27.0-33.0) pg MCHC (31.0-36.0) g/dl RDW (11.0-16.0) % Plt Count (160-400) X10*3/uL MPV (9.4-12.4) fL Immature Gran % (Auto) (0.0-0.4) % Neut % (Auto) (45-73) % Lymph % (Auto) (20-40) % [place] % (Auto) (2-11) % Eos % (Auto) (0-4) % Baso % (Auto) (0-2) % Lymph # (Auto) (1.2-4.9) X10*3/uL [place] # (Auto) (0.1-1.2) X10*3/uL Eos # (Auto) (0.0-0.4) X10*3/uL Baso # (Auto) (0.0-0.2) X10*3/uL Abs Immat Gran (auto) (0.00-0.03) X10*3/uL Absolute Neuts (auto) (2.0-8.3) X10*3/uL Absolute Nucleated RBC (0.0-0.012) X10*3/uL Nucleated RBC % (auto) (0.0-0.2) /100WBC PT (10.8-13.0) SEC INR (0.9-1.1) APTT (24.1-38.0) SEC Sodium (135-145) mmol/L Potassium (3.3-5.1) mmol/L Chloride (96-108) mmol/L Carbon Dioxide (22-29) mmol/L Anion Gap (12-20) BUN (9-16) mg/dL Creatinine (0.5-1.4) mg/dL Estim Creat Clear Calc Estimated GFR Random Glucose (60-115) mg/dL Lactic Acid 1.1 (0.5-2.0) mmol/L Calcium (8.4-10.2) mg/dL Ferritin (20-250) ng/mL Total Bilirubin (0.0-1.0) mg/dL Direct Bilirubin (0.0-0.5) mg/dL AST (5-37) U/L ALT (0-40) U/L Alkaline Phosphatase (39-117) U/L Lactate Dehydrogenase (118-273) U/L Troponin I High Sens < 3.5 (<3.5-35.0) ng/L B-Natriuretic Peptide 12 (<100) pg/mL Total Protein (6.5-8.0) g/dL Albumin (3.5-5.0) g/dL Procalcitonin 0.35 ng/mL Coronavirus (PCR) (Negative) Influenza Type A (PCR) (Negative) Influenza Type B (PCR) (Negative) RSV RNA Qual (PCR) (Negative) 01/20/21 Range/Units 14:24 WBC (4.8-10.8) X10*3/uL RBC (4.60-5.80) X10*6/uL Hgb (14.0-18.0) g/dl Hct (42-52) % MCV (80-98) fL MCH (27.0-33.0) pg MCHC (31.0-36.0) g/dl RDW (11.0-16.0) % Plt Count (160-400) X10*3/uL MPV (9.4-12.4) fL Immature Gran % (Auto) (0.0-0.4) % Neut % (Auto) (45-73) % Lymph % (Auto) (20-40) % [place] % (Auto) (2-11) % Eos % (Auto) (0-4) % Baso % (Auto) (0-2) % Lymph # (Auto) (1.2-4.9) X10*3/uL [place] # (Auto) (0.1-1.2) X10*3/uL Eos # (Auto) (0.0-0.4) X10*3/uL Baso # (Auto) (0.0-0.2) X10*3/uL Abs Immat Gran (auto) (0.00-0.03) X10*3/uL Absolute Neuts (auto) (2.0-8.3) X10*3/uL Absolute Nucleated RBC (0.0-0.012) X10*3/uL Nucleated RBC % (auto) (0.0-0.2) /100WBC PT (10.8-13.0) SEC INR (0.9-1.1) APTT (24.1-38.0) SEC Sodium (135-145) mmol/L Potassium (3.3-5.1) mmol/L Chloride (96-108) mmol/L Carbon Dioxide (22-29) mmol/L Anion Gap (12-20) BUN (9-16) mg/dL Creatinine (0.5-1.4) mg/dL Estim Creat Clear Calc Estimated GFR Random Glucose (60-115) mg/dL Lactic Acid (0.5-2.0) mmol/L Calcium (8.4-10.2) mg/dL Ferritin (20-250) ng/mL Total Bilirubin (0.0-1.0) mg/dL Direct Bilirubin (0.0-0.5) mg/dL AST (5-37) U/L ALT (0-40) U/L Alkaline Phosphatase (39-117) U/L Lactate Dehydrogenase (118-273) U/L Troponin I High Sens (<3.5-35.0) ng/L B-Natriuretic Peptide (<100) pg/mL Total Protein (6.5-8.0) g/dL Albumin (3.5-5.0) g/dL Procalcitonin ng/mL Coronavirus (PCR) NEGATIVE (Negative) Influenza Type A (PCR) NEGATIVE (Negative) Influenza Type B (PCR) NEGATIVE (Negative) RSV RNA Qual (PCR) NEGATIVE (Negative) <PHUONG Mccloud - Last Filed: 01/20/21 19:14> Lab Results 01/20/21 01/20/21 01/20/21 Range/Units 14:22 14:22 14:22 WBC 6.7 (4.8-10.8) X10*3/uL RBC 4.30 L (4.60-5.80) X10*6/uL Hgb 10.7 L (14.0-18.0) g/dl Hct 35.2 L (42-52) % MCV 81.9 (80-98) fL MCH 24.9 L (27.0-33.0) pg MCHC 30.4 L (31.0-36.0) g/dl RDW 15.5 (11.0-16.0) % Plt Count 314 (160-400) X10*3/uL MPV 9.6 (9.4-12.4) fL Immature Gran % (Auto) 0.4 (0.0-0.4) % Neut % (Auto) 62.5 (45-73) % Lymph % (Auto) 22.6 (20-40) % [place] % (Auto) 6.6 (2-11) % Eos % (Auto) 7.5 H (0-4) % Baso % (Auto) 0.4 (0-2) % Lymph # (Auto) 1.5 (1.2-4.9) X10*3/uL [place] # (Auto) 0.4 (0.1-1.2) X10*3/uL Eos # (Auto) 0.5 H (0.0-0.4) X10*3/uL Baso # (Auto) 0.0 (0.0-0.2) X10*3/uL Abs Immat Gran (auto) 0.03 (0.00-0.03) X10*3/uL Absolute Neuts (auto) 4.2 (2.0-8.3) X10*3/uL Absolute Nucleated RBC 0.000 (0.0-0.012) X10*3/uL Nucleated RBC % (auto) 0.0 (0.0-0.2) /100WBC PT 12.5 (10.8-13.0) SEC INR 1.1 (0.9-1.1) APTT 40.3 H (24.1-38.0) SEC Sodium 139 (135-145) mmol/L Potassium 4.5 (3.3-5.1) mmol/L Chloride 104 (96-108) mmol/L Carbon Dioxide 26 (22-29) mmol/L Anion Gap 14 (12-20) BUN 8 L D (9-16) mg/dL Creatinine 0.77 (0.5-1.4) mg/dL Estim Creat Clear Calc 70.7 Estimated GFR > 60 Random Glucose 124 H (60-115) mg/dL Lactic Acid (0.5-2.0) mmol/L Calcium 8.4 (8.4-10.2) mg/dL Ferritin 11 L (20-250) ng/mL Total Bilirubin 0.5 (0.0-1.0) mg/dL Direct Bilirubin < 0.2 (0.0-0.5) mg/dL AST 14 (5-37) U/L ALT 10 (0-40) U/L Alkaline Phosphatase 117 (39-117) U/L Lactate Dehydrogenase 213 (118-273) U/L Troponin I High Sens (<3.5-35.0) ng/L B-Natriuretic Peptide (<100) pg/mL Total Protein 6.1 L (6.5-8.0) g/dL Albumin 3.7 (3.5-5.0) g/dL Procalcitonin ng/mL Coronavirus (PCR) (Negative) Influenza Type A (PCR) (Negative) Influenza Type B (PCR) (Negative) RSV RNA Qual (PCR) (Negative) 01/20/21 01/20/21 01/20/21 Range/Units 14:22 14:22 14:22 WBC (4.8-10.8) X10*3/uL RBC (4.60-5.80) X10*6/uL Hgb (14.0-18.0) g/dl Hct (42-52) % MCV (80-98) fL MCH (27.0-33.0) pg MCHC (31.0-36.0) g/dl RDW (11.0-16.0) % Plt Count (160-400) X10*3/uL MPV (9.4-12.4) fL Immature Gran % (Auto) (0.0-0.4) % Neut % (Auto) (45-73) % Lymph % (Auto) (20-40) % [place] % (Auto) (2-11) % Eos % (Auto) (0-4) % Baso % (Auto) (0-2) % Lymph # (Auto) (1.2-4.9) X10*3/uL [place] # (Auto) (0.1-1.2) X10*3/uL Eos # (Auto) (0.0-0.4) X10*3/uL Baso # (Auto) (0.0-0.2) X10*3/uL Abs Immat Gran (auto) (0.00-0.03) X10*3/uL Absolute Neuts (auto) (2.0-8.3) X10*3/uL Absolute Nucleated RBC (0.0-0.012) X10*3/uL Nucleated RBC % (auto) (0.0-0.2) /100WBC PT (10.8-13.0) SEC INR (0.9-1.1) APTT (24.1-38.0) SEC Sodium (135-145) mmol/L Potassium (3.3-5.1) mmol/L Chloride (96-108) mmol/L Carbon Dioxide (22-29) mmol/L Anion Gap (12-20) BUN (9-16) mg/dL Creatinine (0.5-1.4) mg/dL Estim Creat Clear Calc Estimated GFR Random Glucose (60-115) mg/dL Lactic Acid 1.1 (0.5-2.0) mmol/L Calcium (8.4-10.2) mg/dL Ferritin (20-250) ng/mL Total Bilirubin (0.0-1.0) mg/dL Direct Bilirubin (0.0-0.5) mg/dL AST (5-37) U/L ALT (0-40) U/L Alkaline Phosphatase (39-117) U/L Lactate Dehydrogenase (118-273) U/L Troponin I High Sens < 3.5 (<3.5-35.0) ng/L B-Natriuretic Peptide 12 (<100) pg/mL Total Protein (6.5-8.0) g/dL Albumin (3.5-5.0) g/dL Procalcitonin 0.35 ng/mL Coronavirus (PCR) (Negative) Influenza Type A (PCR) (Negative) Influenza Type B (PCR) (Negative) RSV RNA Qual (PCR) (Negative) 01/20/21 Range/Units 14:24 WBC (4.8-10.8) X10*3/uL RBC (4.60-5.80) X10*6/uL Hgb (14.0-18.0) g/dl Hct (42-52) % MCV (80-98) fL MCH (27.0-33.0) pg MCHC (31.0-36.0) g/dl RDW (11.0-16.0) % Plt Count (160-400) X10*3/uL MPV (9.4-12.4) fL Immature Gran % (Auto) (0.0-0.4) % Neut % (Auto) (45-73) % Lymph % (Auto) (20-40) % [place] % (Auto) (2-11) % Eos % (Auto) (0-4) % Baso % (Auto) (0-2) % Lymph # (Auto) (1.2-4.9) X10*3/uL [place] # (Auto) (0.1-1.2) X10*3/uL Eos # (Auto) (0.0-0.4) X10*3/uL Baso # (Auto) (0.0-0.2) X10*3/uL Abs Immat Gran (auto) (0.00-0.03) X10*3/uL Absolute Neuts (auto) (2.0-8.3) X10*3/uL Absolute Nucleated RBC (0.0-0.012) X10*3/uL Nucleated RBC % (auto) (0.0-0.2) /100WBC PT (10.8-13.0) SEC INR (0.9-1.1) APTT (24.1-38.0) SEC Sodium (135-145) mmol/L Potassium (3.3-5.1) mmol/L Chloride (96-108) mmol/L Carbon Dioxide (22-29) mmol/L Anion Gap (12-20) BUN (9-16) mg/dL Creatinine (0.5-1.4) mg/dL Estim Creat Clear Calc Estimated GFR Random Glucose (60-115) mg/dL Lactic Acid (0.5-2.0) mmol/L Calcium (8.4-10.2) mg/dL Ferritin (20-250) ng/mL Total Bilirubin (0.0-1.0) mg/dL Direct Bilirubin (0.0-0.5) mg/dL AST (5-37) U/L ALT (0-40) U/L Alkaline Phosphatase (39-117) U/L Lactate Dehydrogenase (118-273) U/L Troponin I High Sens (<3.5-35.0) ng/L B-Natriuretic Peptide (<100) pg/mL Total Protein (6.5-8.0) g/dL Albumin (3.5-5.0) g/dL Procalcitonin ng/mL Coronavirus (PCR) NEGATIVE (Negative) Influenza Type A (PCR) NEGATIVE (Negative) Influenza Type B (PCR) NEGATIVE (Negative) RSV RNA Qual (PCR) NEGATIVE (Negative) <Nick Khan MD - Last Filed: 01/21/21 10:04> ECG Data Interpretation: Normal sinus rhythm. Normal EKG. Negative STEMI. Ventricular rate 87. Pr interval 118. QTC 401. <PHUONG Mccloud - Last Filed: 01/20/21 19:14> Discharge Plan Discharge Clinical Impression: Acute exacerbation of chronic obstructive airways disease <PHUONG Mccloud - Last Filed: 01/20/21 19:14> Patient Disposition: Admitted As Inpatient <PHUONG Mccloud - Last Filed: 01/20/21 19:14>
[2021-01-20 14:27] VITALS: PULSE 87; O2SAT 96
[2021-01-20] MEDS: Albuterol/Iprat 2.5/0.5MG 3 ML AMPUL.NEB INHALE (14:27)
[2021-01-20 14:33] LABS: MANUAL DIFF FLAG NO
[2021-01-20 14:35] LABS: Basophils Percent Auto 0.4 % (0-2); Eosinophils Absolute Auto 0.5 X10*3/uL (0.0-0.4); Eosinophils Percent Auto 7.5 % (0-4); Hematocrit 35.2 % (42-52); Hemoglobin 10.7 g/dl (14.0-18.0); Imm Gran Abs Auto 0.03 X10*3/uL (0.00-0.03); Imm Gran Pct Auto 0.4 % (0.0-0.4); Lymphocytes Absolute Auto 1.5 X10*3/uL (1.2-4.9); Lymphocytes Percent Auto 22.6 % (20-40); Mean Corpuscular HGB Conc 30.4 g/dl (31.0-36.0); Mean Corpuscular Hemoglobin 24.9 pg (27.0-33.0); Mean Corpuscular Volume 81.9 fL (80-98); Mean Platelet Volume 9.6 fL (9.4-12.4); Monocytes Absolute Auto 0.4 X10*3/uL (0.1-1.2); Monocytes Percent Auto 6.6 % (2-11); Neutrophils Absolute Auto 4.2 X10*3/uL (2.0-8.3); Neutrophils Percent Auto 62.5 % (45-73); Platelet Count 314 X10*3/uL (160-400); Red Cell Distribution Width 15.5 % (11.0-16.0); White Blood Count 6.7 X10*3/uL (4.8-10.8)
[2021-01-20 14:41] LABS: INTERNATIONAL NORM RATIO 1.1 (0.9-1.1); Prothrombin Time 12.5 SEC (10.8-13.0)
[2021-01-20 14:44] LABS: Partial Thromboplastin Time 40.3 SEC (24.1-38.0)
[2021-01-20] MEDS: methylPREDNISolone Sod Succ/PF 125 MG/2 ML VIAL IVPUSH (14:49)
[2021-01-20] MEDS: Magnesium Sulfate/H2O 2 GM/50 ML PIGGYBACK IV (14:49)
[2021-01-20 14:58] LABS: Lactic Acid 1.1 mmol/L (0.5-2.0)
[2021-01-20 15:01] VITALS: BP 139/64; PULSE 86; RESP 16; O2SAT 97
[2021-01-20 15:09] LABS: B Type Natriuretic Peptide 12 pg/mL (<100); Troponin-I High Sensitivity < 3.5 ng/L (<3.5-35.0)
[2021-01-20 15:10] LABS: Alanine Aminotransferase 10 U/L (0-40); Albumin Level 3.7 g/dL (3.5-5.0); Alkaline Phosphatase 117 U/L (39-117); Anion Gap 14 (12-20); Aspartate Amino Transferase 14 U/L (5-37); Bilirubin Direct < 0.2 mg/dL (0.0-0.5); Bilirubin Total 0.5 mg/dL (0.0-1.0); Blood Urea Nitrogen 8 mg/dL (9-16); Calcium 8.4 mg/dL (8.4-10.2); Carbon Dioxide 26 mmol/L (22-29); Chloride 104 mmol/L (96-108); Creatinine Clr Calc Pharmacy 70.7; Estimated Glomerular Filt Rate > 60; Glucose Random 124 mg/dL (60-115); Lactate Dehydrogenase 213 U/L (118-273); Potassium 4.5 mmol/L (3.3-5.1); Sodium 139 mmol/L (135-145); Total Protein 6.1 g/dL (6.5-8.0)
[2021-01-20 15:22] LABS: Influenza A PCR NEGATIVE (Negative); Influenza B PCR NEGATIVE (Negative); Resp Syncy Virus RNA Qual PCR NEGATIVE (Negative); SARS COV2 PCR INHOUSE NEGATIVE (Negative)
[2021-01-20 15:29] LABS: Ferritin 11 ng/mL (20-250)
[2021-01-20 15:37] LABS: Procalcitonin 0.35 ng/mL
[2021-01-20 16:00] VITALS: BP 128/56; PULSE 92; RESP 16; O2SAT 92
--- NOTE | 2021-01-20 16:08 | PC.NURSE ---
Ambulatory pulse ox 90-91% on room air, Harjeet BACA notified
[2021-01-20] MEDS: cefTRIAXone sodium 1 GM in 0.9 % Sodium Chloride 50 ML IV (16:38)
--- NOTE | 2021-01-20 17:35 | PM.IMHP ---
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 He tried his nebulizer with no improvement in the symptoms. He denies any fever, chills, chest pain, palpitation, nausea or vomiting or urinary symptoms. His symptoms are associated mainly with dyspnea on exertion and loud wheezes. In ED he was found to be significantly dyspneic requiring treatment with steroids and nebulizer with good response. Admitted for further evaluation and treatment. Review of Systems Constitutional: Comments: No fever, chills or weakness No chest pain, palpitation reporting shortness of breath ,coughing and wheezes No abdominal pain, nausea or vomiting No urinary symptoms No any rash or wounds PMF Medical History Asthma Cataract COPD (chronic obstructive pulmonary disease) Diabetes GERD (gastroesophageal reflux disease) Hypertension Hypothyroidism Osteoarthritis Osteoporosis Oxygen dependent Ureteral calculi Surgical History History of appendectomy Hx of cataract surgery Social History Household Members: Family Housing: Apartment Alcohol intake: never Smoking Status: Light tobacco smoker Tobacco Type: Cigarette Packs Per Day: 0.5 Cigarettes Per Day: 10.0 Smoked in Last 30 Days: Yes Second Hand Smoke Exposure: Yes Use of substances other than those prescribed or required for medical reasons: No Advance Directives: No Advance Directives Information Provided: No service: No Current occupational status: retired Meds Allergies Allergy/AdvReac Type Severity Reaction Status Date / Time shellfish derived Allergy Severe ANAPHYLAXIS Verified 11/30/20 19:24 [SHELLFISH DERIVED] pollen extracts [POLLEN] Allergy Intermediate RUNNING Verified 11/30/20 19:24 NOSE, WATERY EYES, SNEEZING varenicline [VARENICLINE] AdvReac Unknown PALPITATION Verified 11/30/20 19:24 S Active Medications: Current Medications Generic Name Dose Route Start Last Admin Trade Name Freq PRN Reason Stop Dose Admin Azithromycin 500 mg/ Sodium 250 mls @ 125 mls/hr 01/20/21 16:17 Chloride IV 01/20/21 18:16 ONCE ONE Pharmacy Consult 1 each 01/20/21 17:29 Consult Rx Perform Med Rec MISCELLANE 01/20/21 17:30 ONCE ONE Home Medications Medication Instructions Recorded Confirmed Last Taken Type albuterol sulfate 90 mcg INHALATION DAILY 09/06/20 12/16/20 Unknown History metformin 500 mg PO DAILY 09/28/20 12/16/20 Unknown History montelukast 10 mg PO DAILY 09/28/20 12/16/20 Unknown History prednisone 10 mg PO DAILY 09/28/20 12/16/20 Unknown History Breo Ellipta 100 inh INHALATION DAILY 12/01/20 12/16/20 Unknown History levothyroxine 112 mcg PO DAILY 12/01/20 12/16/20 Unknown History omeprazole 20 mg PO DAILY 12/01/20 12/16/20 Unknown History Physical Exam Vital Signs and Narrative: Vital Signs: Last Vital Signs Temp 98.3 F 01/20/21 13:51 Pulse 92 01/20/21 16:00 Resp 16 01/20/21 16:00 BP 128/56 L 01/20/21 16:00 Pulse Ox 92 01/20/21 16:00 Body Mass Index 21.4 Const: Other: Constitutional : Alert, oriented, not in distress Neck : Normal inspection, Supple Cardiovascular : RRR, S1 S2, no lower extremity edema Respiratory : decrease bilateral air entry, no crackles, bilateral biphasic wheezes with rhonchi Gastrointestinal: soft, lax, Normal bowel sounds, Non tender Skin : Warm/Dry, No rash Neurological : Alert & oriented x3, No focal deficit Results Labs CBC and Chem 7: 01/20/21 14:22 01/20/21 14:22 Labs: Laboratory Results - last 24 hr 01/20/21 01/20/21 01/20/21 14: 14: 14:22 MCV 81.9 MCH 24.9 L MCHC 30.4 L RDW 15.5 Plt Count 314 MPV 9.6 Immature Gran % (Auto) 0.4 Neut % (Auto) 62.5 Lymph % (Auto) 22.6 Mcduffie % (Auto) 6.6 Eos % (Auto) 7.5 H Baso % (Auto) 0.4 Lymph # (Auto) 1.5 Mcduffie # (Auto) 0.4 Eos # (Auto) 0.5 H Baso # (Auto) 0.0 Abs Immat Gran (auto) 0.03 Absolute Neuts (auto) 4.2 Absolute Nucleated RBC 0.000 Nucleated RBC % (auto) 0.0 PT 12.5 INR 1.1 APTT 40.3 H Anion Gap 14 Estim Creat Clear Calc 70.7 Estimated GFR > 60 Random Glucose 124 H Lactic Acid Calcium 8.4 Ferritin 11 L Total Bilirubin 0.5 Direct Bilirubin < 0.2 AST 14 ALT 10 Alkaline Phosphatase 117 Lactate Dehydrogenase 213 Troponin I High Sens B-Natriuretic Peptide Total Protein 6.1 L Albumin 3.7 Procalcitonin Coronavirus (PCR) Influenza Type A (PCR) Influenza Type B (PCR) RSV RNA Qual (PCR) 01/20/21 01/20/21 01/20/21 14:22 14:22 14:22 MCV MCH MCHC RDW Plt Count MPV Immature Gran % (Auto) Neut % (Auto) Lymph % (Auto) Mcduffie % (Auto) Eos % (Auto) Baso % (Auto) Lymph # (Auto) Mcduffie # (Auto) Eos # (Auto) Baso # (Auto) Abs Immat Gran (auto) Absolute Neuts (auto) Absolute Nucleated RBC Nucleated RBC % (auto) PT INR APTT Anion Gap Estim Creat Clear Calc Estimated GFR Random Glucose Lactic Acid 1.1 Calcium Ferritin Total Bilirubin Direct Bilirubin AST ALT Alkaline Phosphatase Lactate Dehydrogenase Troponin I High Sens < 3.5 B-Natriuretic Peptide 12 Total Protein Albumin Procalcitonin 0.35 Coronavirus (PCR) Influenza Type A (PCR) Influenza Type B (PCR) RSV RNA Qual (PCR) 01/20/21 14:24 MCV MCH MCHC RDW Plt Count MPV Immature Gran % (Auto) Neut % (Auto) Lymph % (Auto) Mcduffie % (Auto) Eos % (Auto) Baso % (Auto) Lymph # (Auto) Mcduffie # (Auto) Eos # (Auto) Baso # (Auto) Abs Immat Gran (auto) Absolute Neuts (auto) Absolute Nucleated RBC Nucleated RBC % (auto) PT INR APTT Anion Gap Estim Creat Clear Calc Estimated GFR Random Glucose Lactic Acid Calcium Ferritin Total Bilirubin Direct Bilirubin AST ALT Alkaline Phosphatase Lactate Dehydrogenase Troponin I High Sens B-Natriuretic Peptide Total Protein Albumin Procalcitonin Coronavirus (PCR) NEGATIVE Influenza Type A (PCR) NEGATIVE Influenza Type B (PCR) NEGATIVE RSV RNA Qual (PCR) NEGATIVE Imaging Radiologist's Impressions: Impressions Chest X-Ray 01/20/21 13:59 IMPRESSION: Question bronchial wall thickening in the right upper lobe. No evidence of pneumonia. Chest CT 01/20/21 15:33 IMPRESSION: Emphysema. Biapical pleural parenchymal scarring, right greater than left. Stable calcified and noncalcified pulmonary nodules. Evidence of airways disease with diffuse bronchial wall thickening and some bronchial soft tissue opacification. This is slightly increased from previous chest CT 12/23/2020. No evidence of pneumonia. Assessment and Plan (1) COPD exacerbation: Status: Acute (2) Asthma with acute exacerbation: Qualifiers: Asthma persistence: unspecified Asthma severity: unspecified severity Qualified Code(s): J45.901 - Unspecified asthma with (acute) exacerbation Status: Acute (3) Diabetes: Qualifiers: Diabetes mellitus type: type 2 Diabetes mellitus long term care administrator insulin use: without long term care administrator use Diabetes mellitus complication status: with other specified complication Qualified Code(s): E11.69 - Type 2 diabetes mellitus with other specified complication Status: Acute A 75 years old male with PMH of asthma, COPD, diabetes among others who presented to the hospital complaining of worsening shortness of breath and 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
[2021-01-20] MEDS: Azithromycin 500 MG in 0.9 % Sodium Chloride 250 ML 125 MG IV (18:22)
[2021-01-20] MEDS: Enoxaparin Sodium 40 MG/0.4 ML SYRINGE SUBCUT (19:19)
[2021-01-20 21:47] LABS: Glucose, Whole Blood 210 mg/dL (60-115)
--- NOTE | 2021-01-20 22:20 | PC.NURSE ---
first contact with patient. labored resp, c/o SOB, LS wheezy and moderate air movement. spking short phrases. sao2 94%. resp paged.
[2021-01-20] MEDS: Insulin Lispro 100 UNIT/ML 3 ML VIAL SUBCUT (22:29)
[2021-01-20 22:53] VITALS: PULSE 82; O2SAT 97
[2021-01-20] MEDS: Albuterol Sulfate (0.083%) 2.5 MG/3 ML VIAL.NEB INHALE (22:53)
[2021-01-21 00:40] VITALS: BP 111/53; PULSE 71; RESP 17; O2SAT 97
[2021-01-21] MEDS: 0.9 % Sodium Chloride Flush 3 ML SYRINGE IVFLUSH ×2 (02:26→08:14)
[2021-01-21 06:53] LABS: MANUAL DIFF FLAG NO
[2021-01-21 07:00] LABS: Basophils Percent Auto 0.2 % (0-2); Eosinophils Percent Auto 0.2 % (0-4); Hematocrit 35.2 % (42-52); Hemoglobin 10.9 g/dl (14.0-18.0); Imm Gran Abs Auto 0.02 X10*3/uL (0.00-0.03); Imm Gran Pct Auto 0.4 % (0.0-0.4); Lymphocytes Absolute Auto 0.7 X10*3/uL (1.2-4.9); Lymphocytes Percent Auto 14.9 % (20-40); Mean Corpuscular Volume 80.7 fL (80-98); Mean Platelet Volume 9.9 fL (9.4-12.4); Monocytes Absolute Auto 0.1 X10*3/uL (0.1-1.2); Monocytes Percent Auto 1.4 % (2-11); Neutrophils Absolute Auto 4.1 X10*3/uL (2.0-8.3); Neutrophils Percent Auto 82.9 % (45-73); Platelet Count 317 X10*3/uL (160-400); Red Blood Count 4.36 X10*6/uL (4.60-5.80); Red Cell Distribution Width 15.4 % (11.0-16.0)
[2021-01-21 07:25] LABS: Glucose, Whole Blood 151 mg/dL (60-115)
[2021-01-21 07:27] LABS: Anion Gap 15 (12-20); Blood Urea Nitrogen 15 mg/dL (9-16); Calcium 8.2 mg/dL (8.4-10.2); Carbon Dioxide 26 mmol/L (22-29); Chloride 103 mmol/L (96-108); Creatinine Clr Calc Pharmacy 72.5; Estimated Glomerular Filt Rate > 60; Glucose Random 153 mg/dL (60-115); Potassium 4.9 mmol/L (3.3-5.1); Sodium 139 mmol/L (135-145)
[2021-01-21] MEDS: Albuterol Sulfate (0.083%) 2.5 MG/3 ML VIAL.NEB INHALE ×2 (07:49→11:06)
[2021-01-21 07:50] VITALS: PULSE 89; O2SAT 94
[2021-01-21] MEDS: Omeprazole 20 MG CAPSULE.DR PO (08:05)
[2021-01-21] MEDS: Azithromycin 250 MG TABLET PO (08:05)
[2021-01-21] MEDS: Montelukast Sodium 10 MG TABLET PO (08:05)
[2021-01-21] MEDS: methylPREDNISolone Sod Succ/PF 125 MG/2 ML VIAL 40 MG IVPUSH (08:05)
[2021-01-21] MEDS: Insulin Lispro 100 UNIT/ML 3 ML VIAL SUBCUT (08:12)
[2021-01-21 09:43] VITALS: BP 120/57; PULSE 90; RESP 23; TEMP 36.6; O2SAT 93
--- NOTE | 2021-01-21 10:12 | MHC.CM.PN ---
Addendum entered by Verna Bailey RN 01/21/21 10:22: HCP: MERLY ROBERSON [phone], ALTERNATE: STEVE LOPEZ [phone], Original Note: OBS NOTICE 01/21/21, PT ADMITTED WITH ACUTE ASTHMA AND COPD EXACERBATION, PT BEING TREATED WITH NEBULIZER TX'S AND IV PREDNISONE, CM MET WITH PT WHO IS ALERT AND ORIENTED AND PT REPORTS HE LIVES WITH HIS NIECE SETVE LOPEZ AND SHE WILL PROVIDE TRANSPORT UPON D/C, PT REPORTS HE IS INDEPENDENT WITH ALL CARE AT HOME AND USES HIS CANE, NEBULIZER AND HAS DIABETIC SUPPLIES REPORTING HE MONITORS HIS BLOOD SUGAR TWICE A DAY, PT DENIES ANY HOME SERVICES. DISCHARGE PLAN: HOME SELF-CARE, NIECE FOR TRANSPORT NIECE: PATRICIA LOPEZ [phone]
[2021-01-21 11:07] VITALS: PULSE 88; O2SAT 94
[2021-01-21 11:14] VITALS: BP 112/42; PULSE 75; RESP 20; TEMP 36.2; O2SAT 100
--- NOTE | 2021-01-21 11:22 | P.DS_ITS ---
DS: Providers Provider Date of Service: 01/21/21 Date of admission: 01/20/21 18:33 Primary care physician: Kayla Chaney MD DS: Diagnosis Discharge Diagnosis (1) COPD exacerbation: Status: Acute (2) Asthma with acute exacerbation: Status: Acute (3) Diabetes: Status: Acute DS: Medications Discharge Medications Home Medications: Home Medications Medication Instructions Recorded Confirmed albuterol sulfate 90 mcg INHALATION DAILY 09/06/20 01/20/21 metformin 500 mg PO DAILY 09/28/20 01/20/21 prednisone 10 mg PO DAILY 09/28/20 01/20/21 levothyroxine 112 mcg PO DAILY@0600 12/01/20 01/20/21 omeprazole 20 mg PO DAILY 12/01/20 01/20/21 calcium carbonate-vitamin D3 1 tab PO BID 01/20/21 01/20/21 [Oyster Shell Calcium-Vit D3] fluticasone propion-salmeterol 1 inh INHALATION BID 01/20/21 01/20/21 ipratropium-albuterol 1 vial INHALATION QID 01/20/21 01/20/21 Previous Rx's Medication Instructions Recorded azithromycin 250 mg PO DAILY #3 tab 01/21/21 guaifenesin [Mucinex] 600 mg PO BID #10 tab 01/21/21 ipratropium-albuterol 3 ml INHALATION Q4-6H PRN 15 Days 01/21/21 ml prednisone 40 mg PO DAILY #8 tab 01/21/21 DS: Summary Hospital Course Hospital Course: A 75 years old male with PMH of asthma, COPD, diabetes among others who presented to the hospital complaining of worsening shortness of 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 He tried his nebulizer with no improvement in the symptoms. He denies any fever, chills, chest pain, palpitation, nausea or vomiting or urinary symptoms. His symptoms are associated mainly with dyspnea on exertion and loud wheezes. In ED he was found to be significantly dyspneic requiring treatment with steroids and nebulizer with good response. Admitted for further evaluation and treatment. The patient was admitted to the hospital and treated with IV steroids, nebulizers bronchodilators and azithromycin with good response over 24 hours course of treatment. He was weaned off the oxygen and was able to ambulate on room air. Will be discharged home on prednisone and azithromycin to finish 5 days. to use DuoNeb nebulizers 4 times a day. Time Spent with Patient Time attestation: Total time spent providing and/or coordinating discharge services: Discharge coordination time: Greater than 30 minutes Physical Exam Vital Signs: Vital Signs: Last Vital Signs Temp 97.2 F 01/21/21 11:14 Pulse 75 01/21/21 11:14 Resp 20 01/21/21 11:14 BP 112/42 L 01/21/21 11:14 Pulse Ox 100 01/21/21 11:14 Body Mass Index 21.4 Const: Other: Constitutional : Alert, oriented, not in distress Neck : Normal inspection, Supple Cardiovascular : RRR, S1 S2, no lower extremity edema Respiratory : Good bilateral air entry, no crackles, scattered bilateral wheezes Gastrointestinal: soft, lax, Normal bowel sounds, Non tender Skin : Warm/Dry, No rash Neurological : Alert & oriented x3, No focal deficit DS: Data Data Completed and Pending Labs on day of discharge: Laboratory Results - last 24 hr 01/20/21 01/20/21 01/20/21 14:22 14:22 14:22 WBC 6.7 RBC 4.30 L Hgb 10.7 L Hct 35.2 L MCV 81.9 MCH 24.9 L MCHC 30.4 L RDW 15.5 Plt Count 314 MPV 9.6 Immature Gran % (Auto) 0.4 Neut % (Auto) 62.5 Lymph % (Auto) 22.6 Morrison % (Auto) 6.6 Eos % (Auto) 7.5 H Baso % (Auto) 0.4 Lymph # (Auto) 1.5 Morrison # (Auto) 0.4 Eos # (Auto) 0.5 H Baso # (Auto) 0.0 Abs Immat Gran (auto) 0.03 Absolute Neuts (auto) 4.2 Absolute Nucleated RBC 0.000 Nucleated RBC % (auto) 0.0 PT 12.5 INR 1.1 APTT 40.3 H Sodium 139 Potassium 4.5 Chloride 104 Carbon Dioxide 26 Anion Gap 14 BUN 8 L D Creatinine 0.77 Estim Creat Clear Calc 70.7 Estimated GFR > 60 POC Glucose Random Glucose 124 H Lactic Acid Calcium 8.4 Ferritin 11 L Total Bilirubin 0.5 Direct Bilirubin < 0.2 AST 14 ALT 10 Alkaline Phosphatase 117 Lactate Dehydrogenase 213 Troponin I High Sens B-Natriuretic Peptide Total Protein 6.1 L Albumin 3.7 Procalcitonin Coronavirus (PCR) Influenza Type A (PCR) Influenza Type B (PCR) RSV RNA Qual (PCR) 01/20/21 01/20/21 01/20/21 14:22 14:22 14:22 WBC RBC Hgb Hct MCV MCH MCHC RDW Plt Count MPV Immature Gran % (Auto) Neut % (Auto) Lymph % (Auto) Morrison % (Auto) Eos % (Auto) Baso % (Auto) Lymph # (Auto) Morrison # (Auto) Eos # (Auto) Baso # (Auto) Abs Immat Gran (auto) Absolute Neuts (auto) Absolute Nucleated RBC Nucleated RBC % (auto) PT INR APTT Sodium Potassium Chloride Carbon Dioxide Anion Gap BUN Creatinine Estim Creat Clear Calc Estimated GFR POC Glucose Random Glucose Lactic Acid 1.1 Calcium Ferritin Total Bilirubin Direct Bilirubin AST ALT Alkaline Phosphatase Lactate Dehydrogenase Troponin I High Sens < 3.5 B-Natriuretic Peptide 12 Total Protein Albumin Procalcitonin 0.35 Coronavirus (PCR) Influenza Type A (PCR) Influenza Type B (PCR) RSV RNA Qual (PCR) 01/20/21 01/20/21 01/21/21 14:24 21:16 06:47 WBC 5.0 RBC 4.36 L Hgb 10.9 L Hct 35.2 L MCV 80.7 MCH 25.0 L MCHC 31.0 RDW 15.4 Plt Count 317 MPV 9.9 Immature Gran % (Auto) 0.4 Neut % (Auto) 82.9 H Lymph % (Auto) 14.9 L Morrison % (Auto) 1.4 L Eos % (Auto) 0.2 Baso % (Auto) 0.2 Lymph # (Auto) 0.7 L Morrison # (Auto) 0.1 Eos # (Auto) 0.0 Baso # (Auto) 0.0 Abs Immat Gran (auto) 0.02 Absolute Neuts (auto) 4.1 Absolute Nucleated RBC 0.000 Nucleated RBC % (auto) 0.0 PT INR APTT Sodium Potassium Chloride Carbon Dioxide Anion Gap BUN Creatinine Estim Creat Clear Calc Estimated GFR POC Glucose 210 H Random Glucose Lactic Acid Calcium Ferritin Total Bilirubin Direct Bilirubin AST ALT Alkaline Phosphatase Lactate Dehydrogenase Troponin I High Sens B-Natriuretic Peptide Total Protein Albumin Procalcitonin Coronavirus (PCR) NEGATIVE Influenza Type A (PCR) NEGATIVE Influenza Type B (PCR) NEGATIVE RSV RNA Qual (PCR) NEGATIVE 01/21/21 01/21/21 06:47 07:22 WBC RBC Hgb Hct MCV MCH MCHC RDW Plt Count MPV Immature Gran % (Auto) Neut % (Auto) Lymph % (Auto) Morrison % (Auto) Eos % (Auto) Baso % (Auto) Lymph # (Auto) Morrison # (Auto) Eos # (Auto) Baso # (Auto) Abs Immat Gran (auto) Absolute Neuts (auto) Absolute Nucleated RBC Nucleated RBC % (auto) PT INR APTT Sodium 139 Potassium 4.9 Chloride 103 Carbon Dioxide 26 Anion Gap 15 BUN 15 D Creatinine 0.75 Estim Creat Clear Calc 72.5 Estimated GFR > 60 POC Glucose 151 H Random Glucose 153 H Lactic Acid Calcium 8.2 L Ferritin Total Bilirubin Direct Bilirubin AST ALT Alkaline Phosphatase Lactate Dehydrogenase Troponin I High Sens B-Natriuretic Peptide Total Protein Albumin Procalcitonin Coronavirus (PCR) Influenza Type A (PCR) Influenza Type B (PCR) RSV RNA Qual (PCR) Discharge Plan Discharge Patient Disposition: Home, Self-Care Referrals: Kayla Chaney MD [Primary Care Provider] - Discharge Medications: New azithromycin 250 mg Tablet 250 mg PO DAILY Qty: 3 RF: 0 guaifenesin [Mucinex] 600 mg Tablet Extended Release 12hr 600 mg PO BID Qty: 10 RF: 0 prednisone 20 mg tablet 40 mg PO DAILY Qty: 8 RF: 0 ipratropium-albuterol 0.5 mg-3 mg(2.5 mg base)/3 mL solution for nebulization 3 ml inhalation Q4-6H PRN (Reason: shortness of breath or wheezing) 15 Days RF: 0 Continued metformin 500 mg tablet 500 mg PO DAILY RF: 0 prednisone 10 mg tablet 10 mg PO DAILY RF: 0 Hold Instructions: start after completing po steriods taper. levothyroxine 112 mcg tablet 112 mcg PO DAILY@0600 RF: 0 omeprazole 20 mg capsule,delayed release(DR/EC) 20 mg PO DAILY RF: 0 ipratropium-albuterol 0.5 mg-3 mg(2.5 mg base)/3 mL solution for nebulization 1 vial inhalation QID RF: 0 calcium carbonate-vitamin D3 [Oyster Shell Calcium-Vit D3] 500 mg(1,250mg) - 400 unit tablet 1 tab PO BID RF: 0 fluticasone propion-salmeterol 232-14 mcg/actuation aerosol powdr breath activated 1 inh inhalation BID RF: 0 albuterol sulfate 90 mcg/actuation HFA aerosol inhaler 90 mcg inhalation DAILY RF: 0 Discharge Orders: Discharge Order (Routine); Ordered 01/21/21 Ordered By: Nick Clemente Diet: advance to usual diet Activity on Discharge: As tolerated Stand Alone Forms: Patient Portal Discharge page Care Plan Goals: Read below Health Concerns: Read below Plan of Treatment: You were admitted to the hospital for treatment of asthma/COPD exacerbation. Your treated with IV steroids, nebulizers, azithromycin and oxygen supplement with good response. You were weaned off the oxygen and wheezes improved significantly. To be discharged home on azithromycin, prednisone as prescribed To use DuoNeb nebulizer 4 times a day for the next few days
[2021-01-21 11:50] LABS: Glucose, Whole Blood 114 mg/dL (60-115)
[2021-01-21] MEDS: guaiFENesin LA 600 MG TAB.ER.12H PO (12:06)
--- NOTE | 2021-01-21 14:58 | MHC.CM.PN ---
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
== END 2021-01-21 14:14 | disposition home or self-care (01) ==
LOC: HO.ED 13:49 → HO.EDOVER 18:58 → HO.S3 01-21 07:06
PROVIDERS: Physician Assistant; Admitting Provider Student in an Organized Health Care Education/Training Program; Emergency Provider Emergency Medicine; PCP Internal Medicine; Visit Provider Student in an Organized Health Care Education/Training Program
DX: J44.1 Chronic obstructive pulmonary disease with (acute) exacerbation (principal); J45.901 Unspecified asthma with (acute) exacerbation; E11.9 Type 2 diabetes mellitus without complications; Q25.46 Tortuous aortic arch; N28.89 Other specified disorders of kidney and ureter; I10 Essential (primary) hypertension; E03.9 Hypothyroidism, unspecified; F17.210 Nicotine dependence, cigarettes, uncomplicated; Z20.822 Contact with and (suspected) exposure to COVID-19; J30.1 Allergic rhinitis due to pollen; Z88.8 Allergy status to other drugs, medicaments and biological substances; Z91.013 Allergy to seafood; Z79.84 Long term (current) use of oral hypoglycemic drugs; Z99.81 Dependence on supplemental oxygen; Z79.52 Long term (current) use of systemic steroids; Z79.899 Other long term (current) drug therapy
CPT/HCPCS: 0241U; 36415; 71045; 71250; 80048; 80053; 80076; 82248; 82728; 82947; 83605; 83615; 83880; 84145; 84484; 85025; 85610; 85730; 87040; 93005; 94640; 96365; 96366; 96367; 96372; 96375; 96376; 99218; 99285; J0456; J0696; J1650; J2930; J3475

== ENCOUNTER → 2021-01-22 13:19 | Outpatient (BNVA) | payer MEDICARE, MEDICAID, SELFPAY | PROVIDERS: PCP Internal Medicine; Visit Provider Internal Medicine Pulmonary Disease | DX: J44.9 Chronic obstructive pulmonary disease, unspecified (principal); R91.8 Other nonspecific abnormal finding of lung field | CPT/HCPCS: 99212 ==

== ENCOUNTER 2021-01-29 18:41 | Inpatient (IN) | payer MEDICARE, MEDICAID, SELFPAY ==
--- NOTE | ~2021-01-29 | XR_ITS ---
EXAMINATION: XR CHEST CLINICAL INFORMATION: Shortness of breath COMPARISON: 01/20/2021 TECHNIQUE: Frontal view of the chest was obtained. FINDINGS: Developing right sided opacities. Findings may be consistent with developing infiltrate or possibly unilateral pulmonary edema. Left lung is grossly clear and comparable to previous. XR/XR chest 1V IMPRESSION: Developing right sided opacities. Findings may suggest developing infiltrate or unilateral pulmonary edema. Recommend follow-up
[2021-01-29 18:45] VITALS: BP 165/83; PULSE 138; RESP 34; TEMP -17.7; TEMP 0; O2SAT 88; BMI 23.3
[2021-01-29] MEDS: Albuterol Sulfate (0.083%) 2.5 MG/3 ML VIAL.NEB 10 MG INHALE (18:55)
--- NOTE | 2021-01-29 18:55 | ECG_ITS ---
Test Reason : SHRTNESS OF BREATH Blood Pressure : / mmHG Vent. Rate : 107 BPM Atrial Rate : 107 BPM P-R Int : 114 ms QRS Dur : 076 ms QT Int : 310 ms P-R-T Axes : 078 068 067 degrees QTc Int : 413 ms Sinus tachycardia Otherwise normal ECG When compared with ECG of 20-JAN-2021 14:51, T wave amplitude has decreased in Lateral leads Referred By: Stormy Chadwick Electronically Signed By:ANTONIO WILLAMS
[2021-01-29 18:56] VITALS: PULSE 125; O2SAT 99
--- NOTE | 2021-01-29 18:56 | ED_ITS ---
HPI - SOB/Dyspnea General Chief Complaint: Dyspnea Stated Complaint: sob Time Seen by Provider: 01/29/21 18:46 Source: patient Mode of arrival: ambulatory Limitations: no limitations History of Present Illness HPI Narrative: Patient comes to the emergency room complaining of shortness of breath. Patient is known to have COPD and asthma, not oxygen dependent. Patient states earlier this morning, he went outside to throw trash, it was cold outside and this triggered his asthma exacerbation. Patient states prior to this he was doing well. Patient was discharged from the hospital on January 21 for a COPD/asthma exacerbation, he was discharged on nebulizers, azithromycin. Patient denies increased sputum production, no fever, no chills negative on her for COVID-19. According to patient's previous medical records, he is supposed to be on 1 L at baseline, however patient states that he does not have an oxygen tank and has never been on O2 at home MD elicited complaint: asthma attack Pertinent past history: COPD and asthma Related Data Home Medications Medication Instructions Recorded Confirmed albuterol sulfate 90 mcg INHALATION DAILY 09/06/20 01/20/21 metformin 500 mg PO DAILY 09/28/20 01/20/21 prednisone 10 mg PO DAILY 09/28/20 01/20/21 levothyroxine 112 mcg PO DAILY@0600 12/01/20 01/20/21 omeprazole 20 mg PO DAILY 12/01/20 01/20/21 calcium carbonate-vitamin D3 1 tab PO BID 01/20/21 01/20/21 [Oyster Shell Calcium-Vit D3] Previous Rx's Medication Instructions Recorded azithromycin 250 mg PO DAILY #3 tab 01/21/21 guaifenesin [Mucinex] 600 mg PO BID #10 tab 01/21/21 ipratropium-albuterol 3 ml INHALATION Q4-6H PRN 15 Days 01/21/21 ml prednisone 40 mg PO DAILY #8 tab 01/21/21 fluticasone fur. 200 mcg-umeclid 1 inh INHALATION DAILY 30 Days #1 01/22/21 62.5 mcg-vilant 25 mcg ea inhalat.powder Allergies Allergy/AdvReac Type Severity Reaction Status Date / Time shellfish derived Allergy Severe ANAPHYLAXIS Verified 01/22/21 13:21 [SHELLFISH DERIVED] pollen extracts [POLLEN] Allergy Intermediate RUNNING Verified 01/22/21 13:21 NOSE, WATERY EYES, SNEEZING varenicline [VARENICLINE] AdvReac Unknown PALPITATION Verified 01/22/21 13:21 S Review of Systems Review of Systems: Constitutional : No Weight loss, No Fever, No Chills, No Night Sweats, No Fatigue, No Malaise ENT/Mouth : No Hearing loss, No Ear Pain, No Nasal Congestion, No Sinus Pain, No Hoarseness, No sore throat, No Rhinorrhea, No Swallowing Difficulty Eyes: No Eye Pain, No Swelling, No Redness, No Foreign Body, No Discharge, No Vision Changes Cardiovascular : No Chest Pain, No SOB, No Dyspnea on Exertion, No Orthopnea, No Edema, No Palpitations Respiratory : Mild dry Cough, No Sputum, complaining of Wheezing and dyspnea, No Smoke Exposure Gastrointestinal : No Nausea, No Vomiting, No Diarrhea, No Constipation, No abdominal Pain, No Hematochezia, No Melena Genitourinary : no irregular bleeding, No Dysuria, No Urinary Frequency, No Hematuria, No Urinary Incontinence, No Urgency, No Flank Pain, No Urinary Flow Changes, No Hesitancy Musculoskeletal : No joint pain, No Myalgias, No Joint Swelling Skin : No Skin Lesions, No rash Neuro : No Weakness, No Numbness, No Paresthesias, No Loss of Consciousness, No Dizziness, No Headache Psych : No Anxiety/Panic, No Depression, No SI/HI/AH/VH, No Social Issues, Heme/Lymph: No Bruising, No Bleeding,No Lymphadenopathy Endocrine : No Polyuria, No Polydipsia, No Temperature Intolerance [facility] Past Medical History Medical History Asthma Cataract COPD (chronic obstructive pulmonary disease) Diabetes GERD (gastroesophageal reflux disease) Hypertension Hypothyroidism Osteoarthritis Osteoporosis Oxygen dependent Ureteral calculi Surgical History History of appendectomy Hx of cataract surgery Social History Social History Household Members: Family Housing: Apartment Alcohol intake: never Smoking Status: Light tobacco smoker Tobacco Type: Cigarette Packs Per Day: 0.5 Cigarettes Per Day: 5 Years Smoked: 60 Second Hand Smoke Exposure: No Advance Directives: No Advance Directives Information Provided: Yes service: No Current occupational status: unemployed Physical Exam Vital Signs: Vital Signs: Last Vital Signs Temp 0 F L 01/29/21 18:45 Pulse 108 H 01/29/21 20:13 Resp 16 01/29/21 20:13 BP 135/60 01/29/21 20:13 Pulse Ox 92 01/29/21 20:13 Body Mass Index 23.3 Appearance: Alert. Oriented X3. In mild to moderate respiratory distress. Eyes: Pupils equal, round and reactive to light. ENT: Pharynx normal. Neck: Normal inspection. Neck supple. No lymph nodes noted. No crepitus CVS: Normal heart rate and rhythm. Pulses normal. Normal S1 and S2 Respiratory: Gjiw-sm-azqyzabv respiratory distress, bilateral wheezing, decreased air movement, oxygen saturation 88% on room air Abdomen: Soft and nontender. No rigidity. No distention. good BS x4 Skin: Skin warm and dry. Normal skin color. Normal skin turgor. Extremities: No lower extremity edema. Neuro: Oriented X 3. No motor deficit. No sensory deficit. Moving all extermities. No slurred speech. Course Course Course Narrative: Patient was walked, his oxygen saturation drops to 88% on room air. At this time, blood cultures and lactic acid pending. Patient will be empirically be treated for COPD exacerbation , IV fluids and Levaquin in progress Chest x-ray shows possible infiltrate. Patient is being admitted. MDM - SOB/Dyspnea Lab Data Result diagrams: 01/29/21 19:24 01/29/21 19:24 Labs: Lab Results 01/29/21 01/29/21 01/29/21 Range/Units 19:24 19:24 21:00 WBC 13.0 H (4.8-10.8) X10*3/uL RBC 4.75 (4.60-5.80) X10*6/uL Hgb 11.7 L (14.0-18.0) g/dl Hct 39.3 L (42-52) % MCV 82.7 (80-98) fL MCH 24.6 L (27.0-33.0) pg MCHC 29.8 L (31.0-36.0) g/dl RDW 15.9 (11.0-16.0) % Plt Count 502 H D (160-400) X10*3/uL MPV 10.0 (9.4-12.4) fL Immature Gran % (Auto) 1.0 H (0.0-0.4) % Neut % (Auto) 58.0 (45-73) % Lymph % (Auto) 23.0 (20-40) % [place] % (Auto) 8.8 (2-11) % Eos % (Auto) 8.7 H (0-4) % Baso % (Auto) 0.5 (0-2) % Lymph # (Auto) 3.0 (1.2-4.9) X10*3/uL [place] # (Auto) 1.1 (0.1-1.2) X10*3/uL Eos # (Auto) 1.1 H (0.0-0.4) X10*3/uL Baso # (Auto) 0.1 (0.0-0.2) X10*3/uL Abs Immat Gran (auto) 0.13 H (0.00-0.03) X10*3/uL Absolute Neuts (auto) 7.5 (2.0-8.3) X10*3/uL Absolute Nucleated RBC 0.000 (0.0-0.012) X10*3/uL Nucleated RBC % (auto) 0.0 (0.0-0.2) /100WBC Sodium 139 (135-145) mmol/L Potassium 5.0 (3.3-5.1) mmol/L Chloride 102 (96-108) mmol/L Carbon Dioxide 27 (22-29) mmol/L Anion Gap 15 (12-20) BUN 10 (9-16) mg/dL Creatinine 0.93 (0.5-1.4) mg/dL Estim Creat Clear Calc 61.5 Estimated GFR > 60 Random Glucose 96 D (60-115) mg/dL Lactic Acid 1.3 (0.5-2.0) mmol/L Calcium 9.1 D (8.4-10.2) mg/dL Coronavirus (PCR) (Negative) Influenza Type A (PCR) (Negative) Influenza Type B (PCR) (Negative) RSV RNA Qual (PCR) (Negative) 01/29/21 Range/Units 21:00 WBC (4.8-10.8) X10*3/uL RBC (4.60-5.80) X10*6/uL Hgb (14.0-18.0) g/dl Hct (42-52) % MCV (80-98) fL MCH (27.0-33.0) pg MCHC (31.0-36.0) g/dl RDW (11.0-16.0) % Plt Count (160-400) X10*3/uL MPV (9.4-12.4) fL Immature Gran % (Auto) (0.0-0.4) % Neut % (Auto) (45-73) % Lymph % (Auto) (20-40) % Ramsey % (Auto) (2-11) % Eos % (Auto) (0-4) % Baso % (Auto) (0-2) % Lymph # (Auto) (1.2-4.9) X10*3/uL [place] # (Auto) (0.1-1.2) X10*3/uL Eos # (Auto) (0.0-0.4) X10*3/uL Baso # (Auto) (0.0-0.2) X10*3/uL Abs Immat Gran (auto) (0.00-0.03) X10*3/uL Absolute Neuts (auto) (2.0-8.3) X10*3/uL Absolute Nucleated RBC (0.0-0.012) X10*3/uL Nucleated RBC % (auto) (0.0-0.2) /100WBC Sodium (135-145) mmol/L Potassium (3.3-5.1) mmol/L Chloride (96-108) mmol/L Carbon Dioxide (22-29) mmol/L Anion Gap (12-20) BUN (9-16) mg/dL Creatinine (0.5-1.4) mg/dL Estim Creat Clear Calc Estimated GFR Random Glucose (60-115) mg/dL Lactic Acid (0.5-2.0) mmol/L Calcium (8.4-10.2) mg/dL Coronavirus (PCR) NEGATIVE (Negative) Influenza Type A (PCR) NEGATIVE (Negative) Influenza Type B (PCR) NEGATIVE (Negative) RSV RNA Qual (PCR) NEGATIVE (Negative) ECG Data Attestation: I personally reviewed and interpreted this ECG as follows: (Sinus rhythm, heart rate 107, no ST segment depression or elevation, no T-wave inversion. Sinus tachycardia) Discharge Plan Discharge Clinical Impression: Asthma exacerbation, Pneumonia Patient Disposition: Admitted As Inpatient Prescriptions: No Action metformin 500 mg tablet 500 mg PO DAILY RF: 0 prednisone 10 mg tablet 10 mg PO DAILY RF: 0 Hold Instructions: start after completing po steriods taper. levothyroxine 112 mcg tablet 112 mcg PO DAILY@0600 RF: 0 omeprazole 20 mg capsule,delayed release(DR/EC) 20 mg PO DAILY RF: 0 calcium carbonate-vitamin D3 [Oyster Shell Calcium-Vit D3] 500 mg(1,250mg) - 400 unit tablet 1 tab PO BID RF: 0 azithromycin 250 mg Tablet 250 mg PO DAILY Qty: 3 RF: 0 guaifenesin [Mucinex] 600 mg Tablet Extended Release 12hr 600 mg PO BID Qty: 10 RF: 0 prednisone 20 mg tablet 40 mg PO DAILY Qty: 8 RF: 0 ipratropium-albuterol 0.5 mg-3 mg(2.5 mg base)/3 mL solution for nebulization 3 ml inhalation Q4-6H PRN (Reason: shortness of breath or wheezing) 15 Days RF: 0 albuterol sulfate 90 mcg/actuation HFA aerosol inhaler 90 mcg inhalation DAILY RF: 0 Trelegy Ellipta 200-62.5-25 mcg blister with device 1 inh inhalation DAILY 30 Days Qty: 1 RF: 6
[2021-01-29] MEDS: methylPREDNISolone Sod Succ/PF 125 MG/2 ML VIAL IVPUSH (19:15)
[2021-01-29] MEDS: Magnesium Sulfate/H2O 2 GM/50 ML PIGGYBACK IV (19:15)
--- NOTE | 2021-01-29 19:25 | PC.NURSE ---
assumed care of pt. pt resting in stretcher rec breathing tx. pt on monitor, IV est and labs drawn to lab. Will continue to monitor pt.
[2021-01-29 19:31] LABS: MANUAL DIFF FLAG NO
[2021-01-29 19:50] LABS: Basophils Percent Auto 0.5 % (0-2); Mean Corpuscular Volume 82.7 fL (80-98); Red Cell Distribution Width 15.9 % (11.0-16.0)
[2021-01-29 19:54] LABS: Anion Gap 15 (12-20); Blood Urea Nitrogen 10 mg/dL (9-16); Calcium 9.1 mg/dL (8.4-10.2); Carbon Dioxide 27 mmol/L (22-29); Chloride 102 mmol/L (96-108); Creatinine Clr Calc Pharmacy 61.5; Estimated Glomerular Filt Rate > 60; Glucose Random 96 mg/dL (60-115); Sodium 139 mmol/L (135-145)
[2021-01-29 19:57] LABS: Basophils Absolute Auto 0.1 X10*3/uL (0.0-0.2); Eosinophils Absolute Auto 1.1 X10*3/uL (0.0-0.4); Eosinophils Percent Auto 8.7 % (0-4); Hematocrit 39.3 % (42-52); Hemoglobin 11.7 g/dl (14.0-18.0); Imm Gran Abs Auto 0.13 X10*3/uL (0.00-0.03); Mean Corpuscular HGB Conc 29.8 g/dl (31.0-36.0); Mean Corpuscular Hemoglobin 24.6 pg (27.0-33.0); Monocytes Absolute Auto 1.1 X10*3/uL (0.1-1.2); Monocytes Percent Auto 8.8 % (2-11); Neutrophils Absolute Auto 7.5 X10*3/uL (2.0-8.3); Platelet Count 502 X10*3/uL (160-400); Red Blood Count 4.75 X10*6/uL (4.60-5.80)
[2021-01-29 20:13] VITALS: BP 135/60; PULSE 108; RESP 16; O2SAT 92
[2021-01-29] MEDS: 0.9 % Sodium Chloride 1,000 ML 999 ML IVCONT ×2 (21:23→22:40)
[2021-01-29] MEDS: levoFLOXacin/D5W 500 MG/100 ML PIGGYBACK 100 MG IV (21:23)
[2021-01-29 21:41] LABS: Lactic Acid 1.3 mmol/L (0.5-2.0)
[2021-01-29 22:11] LABS: Influenza A PCR NEGATIVE (Negative); Influenza B PCR NEGATIVE (Negative); Resp Syncy Virus RNA Qual PCR NEGATIVE (Negative); SARS COV2 PCR INHOUSE NEGATIVE (Negative)
--- NOTE | 2021-01-29 23:05 | PM.IMHP ---
History of Present Illness Date of Service: 01/29/21 Chief Complaint: Shortness of breath 75-year-old male with a past medical history of hypertension, hyperlipidemia, diabetes, COPD/asthma, osteoarthritis, patient is supposed to be on home oxygen but currently not on it; history of COVID pneumonia in September of 2020; GERD presented to the hospital with a chief complaint of shortness of breath. Patient mentions that he wants to put on his transient subsequently developed shortness of breath and tried his home nebulizers without any improvement hence presented to the ER for further evaluation. Patient denied any chest pain palpitations. Denies any fever chills. Denies any numbness tingling. Denies any GI or symptoms. Review of all other systems is negative except mentioned above ER course: Per ER team patient was noted to be saturating at 88% on room air home a noted to be in mild distress, given nebulizers and steroids; patient showed improvement but on walking patient desaturated to 88%. Chest x-ray showed right-sided pneumonia given antibiotics. EKG was nonischemic. Admitted to the hospital for further management. [facility] Medical History (Updated 02/01/21 @ 10:44 by Ortiz James MD) Asthma Cataract COPD (chronic obstructive pulmonary disease) Diabetes GERD (gastroesophageal reflux disease) Hypertension Hypothyroidism Osteoarthritis Osteoporosis Oxygen dependent Sepsis Ureteral calculi Surgical History History of appendectomy Hx of cataract surgery Social History Household Members: Family Housing: House Alcohol intake: never Smoking Status: Current every day smoker Tobacco Type: Cigarette Packs Per Day: 0.5 Cigarettes Per Day: 10 Years Smoked: 50 Second Hand Smoke Exposure: No service: No Current occupational status: unemployed Meds Allergies Allergy/AdvReac Type Severity Reaction Status Date / Time shellfish derived Allergy Severe ANAPHYLAXIS Verified 01/22/21 13:21 [SHELLFISH DERIVED] pollen extracts [POLLEN] Allergy Intermediate RUNNING Verified 01/22/21 13:21 NOSE, WATERY EYES, SNEEZING varenicline [VARENICLINE] AdvReac Unknown PALPITATION Verified 01/22/21 13:21 S Active Medications: Current Medications Generic Name Dose Route Start Last Admin Trade Name Freq PRN Reason Stop Dose Admin Acetaminophen 650 mg 01/29/21 23:01 Acetaminophen 325 Mg Tablet PO Q6H PRN Pain, Mild (Pain Scale 1-3) Enoxaparin Sodium 40 mg 01/29/21 23:15 Enoxaparin Sodium 40 Mg/0.4 Ml Syringe SUBCUT Q24H [facility] Vancomycin HCl 1,000 mg/ 270 mls @ 270 mls/hr 01/29/21 23:15 Sodium Chloride IV Q12H [facility] Piperacillin Sod/Tazobactam 50 mls @ 100 mls/hr 01/29/21 23:15 Sod 3.375 gm/ Sodium Chloride IV Q6H [facility] Insulin Human Lispro 0 unit 01/30/21 07:30 Insulin Lispro 100 Unit/Ml 3 Ml Vial SUBCUT QIDACHS [facility] Protocol Pharmacy Consult 1 each 01/29/21 23:03 Consult Rx Vancomycin Dosing MISCELLANE DAILY PRN Consult order Senna 17.2 mg 01/29/21 23:01 Sennosides 8.6 Mg Tablet PO BEDTIME PRN Constipation Sodium Chloride 3 ml 01/30/21 00:00 0.9 % Sodium Chloride Flush 3 Ml Syringe IVFLUSH QSHIFT [facility] Zolpidem Tartrate 5 mg 01/29/21 23:01 Zolpidem Tartrate 5 Mg Tablet PO BEDTIME PRN Insomnia Home Medications Medication Instructions Recorded Confirmed Last Taken Type albuterol sulfate 90 mcg INHALATION DAILY 09/06/20 01/29/21 Unknown History metformin 500 mg PO DAILY 09/28/20 01/29/21 Unknown History levothyroxine 112 mcg PO DAILY@0600 12/01/20 01/29/21 Unknown History omeprazole 20 mg PO DAILY 12/01/20 01/29/21 Unknown History Physical Exam Vital Signs and Narrative: Vital Signs: Last Vital Signs Temp 0 F L 01/29/21 18:45 Pulse 108 H 01/29/21 20:13 Resp 16 01/29/21 20:13 BP 135/60 01/29/21 20:13 Pulse Ox 92 01/29/21 20:13 Body Mass Index 23.3 Gen: Appears be in no acute distress. On supplemental oxygen. Speaks in full sentences. HEENT: NCAT, Moist mucosa. Pulmonary: Bilateral wheezing noticed CVS: Normal S1-S2 Abdomen: BS+, Soft, Nontender Extremities: Warm well perfused Neuro: Alert and awake. Results Labs CBC and Chem 7: 01/31/21 05:17 01/31/21 05:17 Labs: Laboratory Results - last 24 hr 01/29/21 01/29/21 01/29/21 19:24 19:24 21:00 MCV 82.7 MCH 24.6 L MCHC 29.8 L RDW 15.9 Plt Count 502 H D MPV 10.0 Immature Gran % (Auto) 1.0 H Neut % (Auto) 58.0 Lymph % (Auto) 23.0 [place] % (Auto) 8.8 Eos % (Auto) 8.7 H Baso % (Auto) 0.5 Lymph # (Auto) 3.0 [place] # (Auto) 1.1 Eos # (Auto) 1.1 H Baso # (Auto) 0.1 Abs Immat Gran (auto) 0.13 H Absolute Neuts (auto) 7.5 Absolute Nucleated RBC 0.000 Nucleated RBC % (auto) 0.0 Anion Gap 15 Estim Creat Clear Calc 61.5 Estimated GFR > 60 Random Glucose 96 D Lactic Acid 1.3 Calcium 9.1 D Coronavirus (PCR) Influenza Type A (PCR) Influenza Type B (PCR) RSV RNA Qual (PCR) 01/29/21 21:00 MCV MCH MCHC RDW Plt Count MPV Immature Gran % (Auto) Neut % (Auto) Lymph % (Auto) [place] % (Auto) Eos % (Auto) Baso % (Auto) Lymph # (Auto) [place] # (Auto) Eos # (Auto) Baso # (Auto) Abs Immat Gran (auto) Absolute Neuts (auto) Absolute Nucleated RBC Nucleated RBC % (auto) Anion Gap Estim Creat Clear Calc Estimated GFR Random Glucose Lactic Acid Calcium Coronavirus (PCR) NEGATIVE Influenza Type A (PCR) NEGATIVE Influenza Type B (PCR) NEGATIVE RSV RNA Qual (PCR) NEGATIVE Imaging Radiologist's Impressions: Impressions Chest X-Ray 01/29/21 18:55 IMPRESSION: Developing right sided opacities. Findings may suggest developing infiltrate or unilateral pulmonary edema. Recommend follow-up Assessment and Plan (1) Asthma exacerbation: Status: Acute 75-year-old male with a past medical history of hypertension, hyperlipidemia, diabetes, hypothyroidism, osteoarthritis, asthma/COPD, not using home oxygen presented to the hospital with a chief complaint of shortness of breath. Noted to have pneumonia/asthma Exacerbation. Pneumonia: Hcap. Continue vanc and Zosyn. Acute hypoxic respiratory failure: Likely in setting of pneumonia/asthma exacerbation. On supplemental oxygen. Not in distress. Will continue to monitor. Acute asthma/COPD exacerbation: Continue nebulizations standing and p.r.n.. Continue Solu-Medrol IV t.i.d.. History of COVID-19 pneumonia: Patient was positive for COVID in September 2020. Currently negative. Diabetes: Insulin sliding scale. Hypertension/hyperlipidemia: Continue home medications For all other chronic conditions, home medications will be continued once med rec is done. DVT prophylaxis: Lovenox Code status: Full code
[2021-01-30] VITALS (9 sets, daily range): BP systolic 112–127; BP diastolic 55–72; PULSE 66–87; RESP 18–20; TEMP 36.1–36.8; O2SAT 92–98
--- NOTE | 2021-01-30 00:40 | PC.NURSE ---
REPORT TO TOSIN PISANO. PT TO FLOOR AT THIS TIME. PT LEFT ED IN NAD.
[2021-01-30] MEDS: Piperacillin Sodium/Tazobactam 3.375 GM in 0.9 % Sodium Chloride 50 ML IV ×5 (01:28→23:40)
[2021-01-30] MEDS: 0.9 % Sodium Chloride Flush 3 ML SYRINGE IVFLUSH ×4 (01:28→23:42)
[2021-01-30] MEDS: Enoxaparin Sodium 40 MG/0.4 ML SYRINGE SUBCUT ×2 (01:29→23:40)
[2021-01-30] MEDS: methylPREDNISolone Sod Succ/PF 125 MG/2 ML VIAL 60 MG IVPUSH ×3 (02:13→20:13)
[2021-01-30] MEDS: vancomycin HCL 1,000 MG in 0.9 % Sodium Chloride 250 ML 270 MG IV (02:15)
[2021-01-30] MEDS: Benzonatate 100 MG CAPSULE PO (05:21)
[2021-01-30 06:52] LABS: Basophils Percent Auto 0.2 % (0-2); Eosinophils Percent Auto 0.2 % (0-4); Hematocrit 34.1 % (42-52); Hemoglobin 10.3 g/dl (14.0-18.0); Imm Gran Abs Auto 0.02 X10*3/uL (0.00-0.03); Imm Gran Pct Auto 0.4 % (0.0-0.4); Lymphocytes Absolute Auto 0.3 X10*3/uL (1.2-4.9); Lymphocytes Percent Auto 6.6 % (20-40); MANUAL DIFF FLAG SCAN; Mean Corpuscular HGB Conc 30.2 g/dl (31.0-36.0); Mean Corpuscular Hemoglobin 24.8 pg (27.0-33.0); Mean Platelet Volume 10.5 fL (9.4-12.4); Monocytes Percent Auto 0.7 % (2-11); Neutrophils Absolute Auto 4.2 X10*3/uL (2.0-8.3); Neutrophils Percent Auto 91.9 % (45-73); Platelet Count 347 X10*3/uL (160-400); Red Blood Count 4.16 X10*6/uL (4.60-5.80); Red Cell Distribution Width 15.7 % (11.0-16.0); SCAN SMEAR FLAG 1; White Blood Count 4.6 X10*3/uL (4.8-10.8)
[2021-01-30 07:16] LABS: Glucose, Whole Blood 183 mg/dL (60-115)
[2021-01-30 07:16] LABS: Blood Urea Nitrogen 18 mg/dL (9-16); Calcium 8.3 mg/dL (8.4-10.2); Creatinine Clr Calc Pharmacy 59.6; Estimated Glomerular Filt Rate > 60; Glucose Random 222 mg/dL (60-115)
[2021-01-30 07:31] LABS: SLIDE REVIEW VERIFIED
[2021-01-30] MEDS: Famotidine 20 MG TABLET PO (07:36)
[2021-01-30] MEDS: Insulin Lispro 100 UNIT/ML 3 ML VIAL SUBCUT ×2 (07:36→16:14)
[2021-01-30] MEDS: Albuterol/Iprat 2.5/0.5MG 3 ML AMPUL.NEB INHALE ×3 (08:05→20:06)
[2021-01-30 08:07] LABS: Anion Gap 16 (12-20); Carbon Dioxide 24 mmol/L (22-29); Chloride 103 mmol/L (96-108); Potassium 5.2 mmol/L (3.3-5.1); Sodium 138 mmol/L (135-145)
--- NOTE | 2021-01-30 08:30 | CA_ITS ---
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 The visually estimated ejection fraction is between 60-65%. - There is mild calcification of the aortic valve. - No obvious valvular pathology seen on this study. Findings Left Ventricle Normal left ventricular cavity size. There is normal left ventricular wall thickness. The left ventricular systolic function is normal. The visually estimated ejection fraction is between 60-65%. There is no evidence of regional wall motion abnormalities. Evidence suggests grade I (mild) diastolic dysfunction. Right Ventricle Normal right ventricular cavity size and systolic function. Atria Both atria are normal in size. Aortic Valve There is mild calcification of the aortic valve. There is no aortic valve stenosis. There is no aortic valve regurgitation. Mitral Valve The mitral valve appears normal. There is trace mitral valve regurgitation. There is no mitral valve stenosis. Pulmonic Valve The pulmonic valve was not well visualized. Tricuspid Valve Normal tricuspid valve structure. There is trace tricuspid valve regurgitation. The pulmonary artery systolic pressure is not calculated. Great Vessels The aortic annulus and aortic arch are normal in size. Venous The inferior vena cava is normal in size and collapses greater than 50% with inspiration. Pericardium/Pleural There is no evidence of pericardial effusion. Prior Study Comparison No significant change compared to prior study dated: 10/10/2019. Recommendations, Care & Conclusions No obvious valvular pathology seen on this study. Measurements 2D Linear Measurements IVSd: 0.92 0.6-0.9/0.6-1.0 cm LVIDd: 4.04 3.9-5.3/4.2-5.9 cm LVIDd Index: 2.38 2.4-3.2/2.2-3.1 cm/m2 LVIDs: 3.08 2.0-3.6 cm LVPWd: 1.00 0.7-1.1 cm Ao Root: 3.10 2.1-3.5 cm LA Diam: 3.10 2.7-3.8/3.0-4.0 cm LAIDs Index: 1.82 1.5-2.3 cm/m2 LV Mass: 151.60 67-162/88-224 g LV Mass Index: 89.18 43-95/49-115 g/m2 LVOT Diam: 2.20 3.0+(-)1.3 cm 2D Systolic Function EF 4C: 55.70 >55% EF 2C: 62.10 >55% EF BiP: 57.50 >55% Mitral Valve MV Pk E: 0.82 MV PK A: 1.10 MV Decel Time: 246.00 E/A: 0.70 E'Lateral: 9.48 E'Medial: 6.96 E/E' Med: 11.70 E/E' Lat: 8.60 PHT: 72.00 MVA PHT: 3.06 Decel Cloud: 3.31 Aortic Valve AoV Pk James: 1.52 AoV Mn James: 1.00 AoV VTI: 0.29 AoV Pk Grad: 9.00 Aov Mn Grad: 5.00 MARLENE Cont.VTI: 3.05 LVOT LVOT Pk James: 1.21 LVOT Mn James: 0.74 LVOT VTI: 0.24 LVOT Pk Grad: 6.00 LVOT Mn Grad: 3.00 LVOT Diam: 2.20 LVOT Area: 3.80 Diastolic Function MV Pk E: 0.82 MV Pk A: 1.10 E/A: 0.70 E'Medial: 6.96 E/E' Med: 11.70 E' Laterial: 9.48 E/E' Lat: 8.60 Tricuspid Valve TR Pk James: 1.51 TR Pk Grad: 9.00 RA Press: 3.00 RVSP: 12.00 Great Vessels Aorta Ao Root-2D: 3.10 2.0-3.7 cm Ao Arch: 2.60 Updated in Other Vendor System with Status of Final Patrick Lopez MD electronically signed on 01/30/2021 4:37:05 PM with status of Final
[2021-01-30] MEDS: Omeprazole 20 MG CAPSULE.DR PO (10:09)
[2021-01-30] MEDS: Levothyroxine Sodium 112 MCG TABLET PO (10:09)
[2021-01-30 11:21] LABS: Glucose, Whole Blood 101 mg/dL (60-115)
--- NOTE | 2021-01-30 11:27 | HO.PM.IMPN ---
Subjective Subjective Date of Service: 01/30/21 Interval History: sob Cardiovascular Cardiovascular: Reports no additional cardiovascular complaints Gastrointestinal Gastrointestinal: Reports no additional gastrointestinal complaints Physical Exam Vital Signs: Vital Signs: Last Vital Signs Temp 97 F 01/30/21 11:17 Pulse 71 01/30/21 11:17 Resp 18 01/30/21 11:17 BP 118/55 L 01/30/21 11:17 Pulse Ox 96 01/30/21 11:17 Body Mass Index 23.3 General: AO X 3, no acute distress Resp: crackles CVS: S1,S2,RRR GI: soft, non tender, non distended Neuro: motor grossly intact Psych: appropriate affect Objective Data Current Medications Generic Name Dose Route Start Last Admin Trade Name Freq PRN Reason Stop Dose Admin Acetaminophen 650 mg 01/29/21 23:01 Acetaminophen 325 Mg Tablet PO Q6H PRN Pain, Mild (Pain Scale 1-3) Albuterol/Ipratropium 3 ml 01/30/21 08:00 01/30/21 08:05 Albuterol/Iprat 2.5/0.5mg 3 Ml Ampul.Neb INHALE 3 ml RQ6H WHILE AWAKE MEHDI Administration Albuterol/Ipratropium 3 ml 01/29/21 23:12 Albuterol/Iprat 2.5/0.5mg 3 Ml Ampul.Neb INHALE RQ4H PRN Shortness of Breath/Wheezing Benzonatate 100 mg 01/29/21 23:13 01/30/21 05:21 Benzonatate 100 Mg Capsule PO 100 mg TID PRN Administration Cough Enoxaparin Sodium 40 mg 01/30/21 00:00 01/30/21 01:29 Enoxaparin Sodium 40 Mg/0.4 Ml Syringe SUBCUT 40 mg Q24H MEHDI Administration Guaifenesin 5 ml 01/30/21 09:30 Guaifenesin 100 Mg/5 Ml Liquid PO Q6H PRN cough Piperacillin Sod/Tazobactam 50 mls @ 100 mls/hr 01/30/21 00:00 01/30/21 06:03 Sod 3.375 gm/ Sodium Chloride IV Infused Q6H COUNT INCLUDES THE [facility] Infusion Vancomycin HCl 750 mg/ Sodium 265 mls @ 265 mls/hr 01/30/21 14:00 Chloride IV Q12H COUNT INCLUDES THE [facility] Insulin Human Lispro 0 unit 01/30/21 07:30 01/30/21 07:36 Insulin Lispro 100 Unit/Ml 3 Ml Vial SUBCUT 2 unit QIDACHS COUNT INCLUDES THE [facility] Administration Protocol Levothyroxine Sodium 112 mcg 01/30/21 08:15 01/30/21 10:09 Levothyroxine Sodium 112 Mcg Tablet PO 112 mcg DAILY@0600 MEHDI Administration Methylprednisolone Sodium Succinate 60 mg 01/30/21 09:00 01/30/21 10:08 Methylprednisolone Sod Succ/Pf 125 Mg/2 Ml Vial IVPUSH 60 mg Q12H MEHDI Administration Non-Formulary Medication 1 inhalation 01/30/21 09:00 Kneumlabeps-Sqfytekpz-Jcotoott [Trelegy Ellipta] INHALE DAILY COUNT INCLUDES THE [facility] Omeprazole 20 mg 01/30/21 09:00 01/30/21 10:09 Omeprazole 20 Mg Capsule. PO 20 mg DAILY@0630 COUNT INCLUDES THE [facility] Administration Pharmacy Consult 1 each 01/29/21 23:03 Consult Rx Vancomycin Dosing MISCELLANE DAILY PRN Consult order Senna 17.2 mg 01/29/21 23:01 Sennosides 8.6 Mg Tablet PO BEDTIME PRN Constipation Sodium Chloride 3 ml 01/30/21 00:00 01/30/21 07:37 0.9 % Sodium Chloride Flush 3 Ml Syringe IVFLUSH 3 ml QSHIFT COUNT INCLUDES THE [facility] Administration Zolpidem Tartrate 5 mg 01/29/21 23:01 Zolpidem Tartrate 5 Mg Tablet PO BEDTIME PRN Insomnia Labs CBC & Chem 7: 01/30/21 05:32 01/30/21 05:32 Assessment and Plan (1) Asthma exacerbation: Status: Acute Assessment and Plan: 75M presented with sob and cough Acute hypoxic respiratory failure secondary to COPD exacerbation with possible bacterial pneumonia Continue broad-spectrum antibiotics in recent hospitalization Continue steroids Bronchodilators Pulmonary Diabetes Insulin Hypothyroid Synthroid
--- NOTE | 2021-01-30 11:42 | MHC.CM.PN ---
Addendum entered by Hilda Falcon 01/30/21 11:49: IMM addressed with patient with sorter operator. Original Note: CM met with patient with a sorter operator, patient reports he lives alone and amb with a cane, independent. Patient does have a HCP arnoldo Frazier [phone] and a copy is on file. Discussed discharge plan, home no services. Arnoldo Frazier will provide transport. CM will continue to follow patient for discharge needs.
[2021-01-30] MEDS: vancomycin HCL 750 MG in 0.9 % Sodium Chloride 250 ML 265 MG IV (14:51)
[2021-01-30 15:53] LABS: Glucose, Whole Blood 336 mg/dL (60-115)
[2021-01-30 20:05] LABS: Glucose, Whole Blood 120 mg/dL (60-115)
[2021-01-31] VITALS (8 sets, daily range): BP systolic 105–128; BP diastolic 56–70; PULSE 64–98; RESP 15–19; TEMP 36–37.1; O2SAT 93–99
[2021-01-31] MEDS: vancomycin HCL 750 MG in 0.9 % Sodium Chloride 250 ML 265 MG IV (01:10)
--- NOTE | 2021-01-31 02:39 | CONS_ITS ---
DATE OF SERVICE: 01/30/2021 INDICATION: Shortness of breath. HISTORY OF THE PRESENT ILLNESS: Mr. Ponce is a 75-year-old gentleman with known history of hypertension, diabetes, asthma, COPD overlap syndrome, followed here at the Pulmonary office by one of my colleagues, last seen back in September 2020. Subsequently after that he was admitted to the hospital with COVID-19. He was treated appropriately and was able to improve. Subsequent to that, he had another exacerbation in November, again in December and now he has come in again in early January with similar symptoms of worsening shortness of breath and significant wheezing. The patient has not been using his oxygen as recommended. In the ER, he was hypoxic again. He was placed on a couple L of oxygen. A chest x-ray demonstrating chronic airway disease in addition to right-sided pneumonic process. He was given antibiotics and admitted to the hospital. Currently, he is feeling better. He is getting Solu-Medrol. The patient has been getting his breathing treatments and appears to be doing a little better. REVIEW OF SYSTEMS: Ten systems reviewed. Complains of the respiratory symptoms as stated above. Denies any fevers or chills. Denies any cardiac issues. Denies any chest pains or palpitations. Denies any GI or issues. Denies any musculoskeletal issues. Denies any rashes. The rest of the 10-organ system is negative. PAST MEDICAL HISTORY: Asthma, COPD overlap syndrome, history of pneumonia, COVID-19, pulmonary nodules, bronchitis and lactic acidosis, who is supposed be oxygen dependent. PAST SURGICAL HISTORY: Appendectomy and cataract surgery. SOCIAL HISTORY: He is positive for tobacco dependency. FAMILY HISTORY: History of asthma. ALLERGIES: PLEASE REFER TO THE [facility] FOR THE FULL LIST INCLUDING SHELLFISH, POLLEN, AND VARENICLINE. CURRENT MEDICATION LIST: Please refer to the [facility] for the full list, which include zolpidem, vancomycin, DuoNebs, Lovenox, Zosyn, lisinopril, levothyroxine, and guaifenesin. PHYSICAL EXAMINATION: VITAL SIGNS: Stable. Saturating 98% on 2 L. GENERAL: Pleasant gentleman, in no acute distress. HEENT: Pupils equal and reactive to light. Oropharynx clear. NECK: Supple. LUNGS: Diminished with some rhonchi and wheezing bilaterally, primarily in the expiratory phase. CARDIAC: Regular rhythm. Regular rate. ABDOMEN: Positive bowel sounds, soft. EXTREMITIES: No clubbing, cyanosis. LABORATORY DATA: White count 4.6 from 13.0, hemoglobin 10.3 and a platelet count of 347. Does have a left shift. Chemistries: Blood sugar is elevated at 300s. Serology negative for COVID. He was tested back in 10/27/2021, when was positive. IMAGING STUDIES: He had a CT scan of the chest perceived by me back in January 20, demonstrating emphysema, some apical scarring, some calcified and noncalcified pulmonary nodules and evidence of bronchitis with some mucus impaction increased when compared to previous CAT scan and more of this admission, he did have a chest x-ray demonstrating interval worsening of the right-sided opacity, although it is more like a reticular nodular opacity suggesting more of an interstitial process in more of an atypical type of infection. ASSESSMENT: Mr. Ponce is a 75-year-old gentleman followed by Pulmonary with a known history of asthma, chronic obstructive pulmonary disease overlap syndrome, he should also be on oxygen, presenting with now frequent exacerbations basically every month with worsening respiratory status, now admitted again. 1. Chronic obstructive pulmonary disease exacerbation. 2. Bronchopneumonia. The patient may have a component of underlying interstitial lung disease contributing to those changes. He did start antibiotics and significant decrease in white count, which is reassuring. The patient is also clinically feeling better. 3. Pulmonary nodules, need to follow closely as an outpatient. RECOMMENDATIONS: Continue oxygen supplementation. Continue Solu-Medrol IV at this time. Continue respiratory treatments with DuoNeb, antibiotics, possibly could deescalate antibiotic therapy. The interstitial process likely would be reasonable to switch over to quinolone, but would want to cover atypical organisms, especially with the interstitial nature of the airspace disease. The patient needs close followup as an outpatient. So once the patient is close to being discharged, he should follow up in the Pulmonary office within 5-7 days to minimize readmissions and to optimize his respiratory therapy. The patient will be assessed for oxygen supplementation in need prior to discharge again. The patient will follow up as an outpatient for the pulmonary nodules and his medications will be adjusted accordingly. MD JASON Black/JESUS / [id number]
[2021-01-31 06:05] LABS: Basophils Percent Auto 0.1 % (0-2); Hematocrit 30.7 % (42-52); Hemoglobin 9.5 g/dl (14.0-18.0); Imm Gran Pct Auto 0.8 % (0.0-0.4); Lymphocytes Absolute Auto 0.5 X10*3/uL (1.2-4.9); Lymphocytes Percent Auto 3.5 % (20-40); MANUAL DIFF FLAG SCAN; Mean Corpuscular HGB Conc 30.9 g/dl (31.0-36.0); Mean Corpuscular Hemoglobin 25.2 pg (27.0-33.0); Mean Corpuscular Volume 81.4 fL (80-98); Mean Platelet Volume 10.3 fL (9.4-12.4); Monocytes Absolute Auto 0.3 X10*3/uL (0.1-1.2); Monocytes Percent Auto 2.2 % (2-11); Neutrophils Absolute Auto 12.4 X10*3/uL (2.0-8.3); Neutrophils Percent Auto 93.4 % (45-73); Platelet Count 306 X10*3/uL (160-400); Red Blood Count 3.77 X10*6/uL (4.60-5.80); Red Cell Distribution Width 15.6 % (11.0-16.0); SCAN SMEAR FLAG 1; White Blood Count 13.3 X10*3/uL (4.8-10.8)
[2021-01-31] MEDS: Omeprazole 20 MG CAPSULE.DR PO (06:13)
[2021-01-31] MEDS: Piperacillin Sodium/Tazobactam 3.375 GM in 0.9 % Sodium Chloride 50 ML IV (06:13)
[2021-01-31] MEDS: Levothyroxine Sodium 112 MCG TABLET PO (06:13)
[2021-01-31 06:34] LABS: Anion Gap 15 (12-20); Blood Urea Nitrogen 20 mg/dL (9-16); Calcium 8.1 mg/dL (8.4-10.2); Carbon Dioxide 26 mmol/L (22-29); Chloride 103 mmol/L (96-108); Creatinine Clr Calc Pharmacy 69.7; Estimated Glomerular Filt Rate > 60; Glucose Fasting 154 mg/dL (60-99); Potassium 4.6 mmol/L (3.3-5.1); Sodium 139 mmol/L (135-145)
[2021-01-31 06:36] LABS: SLIDE REVIEW VERIFIED
[2021-01-31 07:22] LABS: Glucose, Whole Blood 144 mg/dL (60-115)
[2021-01-31] MEDS: 0.9 % Sodium Chloride Flush 3 ML SYRINGE IVFLUSH ×3 (07:35→23:00)
[2021-01-31] MEDS: methylPREDNISolone Sod Succ/PF 125 MG/2 ML VIAL 60 MG IVPUSH ×2 (07:35→20:42)
[2021-01-31] MEDS: Albuterol/Iprat 2.5/0.5MG 3 ML AMPUL.NEB INHALE ×3 (08:44→19:20)
[2021-01-31] MEDS: Fluticasone/Vilanterol 100/25 BLST.W.DEV 1 PUFF INHALE (08:44)
--- NOTE | 2021-01-31 09:37 | P.PNPL_ITS ---
Subjective Subjective Date of Service: 01/31/21 Interval history: The patient was seen on exam. He is feeling a little better today. Currently on room air at rest. The patient needs to get a 6 minutes walk test. Hopefully can deescalate to oral antibiotics. Objective Data Labs CBC & Chem 7: 01/31/21 05:17 01/31/21 05:17 Labs: Laboratory Results - last 24 hr 01/30/21 01/30/21 01/30/21 11:17 15:50 20:01 WBC RBC Hgb Hct MCV MCH MCHC RDW Plt Count MPV Immature Gran % (Auto) Neut % (Auto) Lymph % (Auto) [place] % (Auto) Eos % (Auto) Baso % (Auto) Lymph # (Auto) [place] # (Auto) Eos # (Auto) Baso # (Auto) Abs Immat Gran (auto) Absolute Neuts (auto) Absolute Nucleated RBC Nucleated RBC % (auto) Smear Tech's Comments Sodium Potassium Chloride Carbon Dioxide Anion Gap BUN Creatinine Estim Creat Clear Calc Estimated GFR POC Glucose 101 336 H 120 H Fasting Glucose Calcium 01/31/21 01/31/21 01/31/21 05:17 05:17 07:11 WBC 13.3 H RBC 3.77 L Hgb 9.5 L Hct 30.7 L MCV 81.4 MCH 25.2 L MCHC 30.9 L RDW 15.6 Plt Count 306 MPV 10.3 Immature Gran % (Auto) 0.8 H Neut % (Auto) 93.4 H Lymph % (Auto) 3.5 L [place] % (Auto) 2.2 Eos % (Auto) 0.0 Baso % (Auto) 0.1 Lymph # (Auto) 0.5 L [place] # (Auto) 0.3 Eos # (Auto) 0.0 Baso # (Auto) 0.0 Abs Immat Gran (auto) 0.10 H Absolute Neuts (auto) 12.4 H Absolute Nucleated RBC 0.000 Nucleated RBC % (auto) 0.0 Smear Tech's Comments VERIFIED Sodium 139 Potassium 4.6 Chloride 103 Carbon Dioxide 26 Anion Gap 15 BUN 20 H Creatinine 0.82 Estim Creat Clear Calc 69.7 Estimated GFR > 60 POC Glucose 144 H Fasting Glucose 154 H Calcium 8.1 L Microbiology Microbiology Results: Microbiology 01/29/21 21:00 Blood - Venous Blood Culture - Preliminary No growth after 24 hours. 03/03/21 21:00 Blood - Venous Blood Culture - Preliminary No growth after 24 hours. Review of Systems Constitutional: Denies night sweats Denies change in voice, Denies mouth pain, Reports nasal congestion and Reports nasal discharge Cardiovascular: Denies chest pain and Reports dyspnea Respiratory: Reports chest congestion, Reports cough, Reports dyspnea and Reports wheezing Gastrointestinal: Denies abdominal pain Musculoskeletal: Denies no additional musculoskeletal complaints Denies Neuro-related abnormal movements Hematologic/Lymphatic: Denies easy bleeding and Denies lymphadenopathy Allergic/Immunologic: Reports wheezing Physical Exam Vital Signs: Vital Signs: Last Vital Signs Temp 96.8 F 01/31/21 07:12 Pulse 74 01/31/21 07:12 Resp 18 01/31/21 07:12 BP 128/66 01/31/21 07:12 Pulse Ox 97 01/31/21 07:12 Body Mass Index 23.3 Const: General: alert Neck: Neck: Yes normal visual inspection, Yes full ROM and Yes no lymphadenopathy Chest: Chest palpation & inspection: normal inspection of the chest Resp: Auscultation: wheezes and diminished lung sounds Cardio: Rate: regular rate Rhythm: regular rhythm Heart sounds: S1 normal heart sound present and S2 normal heart sound present GI: Palpation (GI): Soft to palpation and nontender Auscultation: normal bowel sounds : General: Yes no CVA tenderness Back/Spine/Pelvis: Back: no CVA tenderness Skin: General skin exam: rashes and/or lesions noted Procedures Date of Service Date of Service: 01/31/21 Assessment and Plan Assessment and plan (1) Acute respiratory failure with hypoxia: Status: Acute (2) Pulmonary nodules: Status: Acute (3) Pneumonia: Status: Acute (4) COPD (chronic obstructive pulmonary disease): Status: Acute Assessment and Plan: Deescalate antibiotics, consider levofloxacin Tapering cortical steroids accordingly. Continue with inhaled cortical steroid, long-acting muscarinic antagonist and long-acting beta agonist. He should continue his chronic suppressive therapy with Zithromax in 3 times a week 6 minutes walk test prior to discharge to assess oxygen requirement Will set up with Pulmonary follow-up appointment next week with his interventional radiology rn. Time Spent With Patient Time: Total time spent is greater than 50% in coordination of care (as documented) at patient's floor/unit and/or counseling patient: Time with patient: 15 - 24 minutes
[2021-01-31 11:15] LABS: Glucose, Whole Blood 218 mg/dL (60-115)
[2021-01-31] MEDS: Insulin Lispro 100 UNIT/ML 3 ML VIAL SUBCUT ×3 (11:31→20:42)
--- NOTE | 2021-01-31 11:55 | MHC.CM.PN ---
DP Home no services niece will transport. MALE 75 PNA. A home O2 eval has been ordered. Anticipate DC tomorrow 02/01/21. CM will follow.
--- NOTE | 2021-01-31 12:42 | P.PNIM_ITS ---
Subjective Subjective Date of Service: 01/31/21 Interval History: feeling better still some sob on exertion Cardiovascular Cardiovascular: Reports no additional cardiovascular complaints Gastrointestinal Gastrointestinal: Reports no additional gastrointestinal complaints Physical Exam Vital Signs: Vital Signs: Last Vital Signs Temp 97.1 F 01/31/21 11:11 Pulse 69 01/31/21 11:11 Resp 18 01/31/21 11:11 BP 105/70 01/31/21 11:11 Pulse Ox 96 01/31/21 11:11 Body Mass Index 23.3 General: AO X 3, no acute distress Resp: crackles CVS: S1,S2,RRR GI: soft, non tender, non distended Neuro: motor grossly intact Psych: appropriate affect Objective Data Current Medications Generic Name Dose Route Start Last Admin Trade Name Freq PRN Reason Stop Dose Admin Acetaminophen 650 mg 01/29/21 23:01 Acetaminophen 325 Mg Tablet PO Q6H PRN Pain, Mild (Pain Scale 1-3) Albuterol/Ipratropium 3 ml 01/30/21 08:00 01/31/21 08:44 Albuterol/Iprat 2.5/0.5mg 3 Ml Ampul.Neb INHALE 3 ml RQ6H WHILE AWAKE MEHDI Administration Albuterol/Ipratropium 3 ml 01/29/21 23:12 Albuterol/Iprat 2.5/0.5mg 3 Ml Ampul.Neb INHALE RQ4H PRN Shortness of Breath/Wheezing Benzonatate 100 mg 01/29/21 23:13 01/30/21 05:21 Benzonatate 100 Mg Capsule PO 100 mg TID PRN Administration Cough Enoxaparin Sodium 40 mg 01/30/21 00:00 01/30/21 23:40 Enoxaparin Sodium 40 Mg/0.4 Ml Syringe SUBCUT 40 mg Q24H MEHDI Administration Fluticasone/Vilanterol 1 puff 01/31/21 08:00 01/31/21 08:44 Fluticasone/Vilanterol 100/25 Blst.W.Dev INHALE 1 puff RDAILY MEHDI Administration Guaifenesin 5 ml 01/30/21 09:30 Guaifenesin 100 Mg/5 Ml Liquid PO Q6H PRN cough Piperacillin Sod/Tazobactam 50 mls @ 100 mls/hr 01/30/21 00:00 01/31/21 06:45 Sod 3.375 gm/ Sodium Chloride IV Infused Q6H COUNT INCLUDES THE [facility] Infusion Vancomycin HCl 750 mg/ Sodium 265 mls @ 265 mls/hr 01/30/21 14:00 01/31/21 02:16 Chloride IV Infused Q12H COUNT INCLUDES THE [facility] Infusion Insulin Human Lispro 0 unit 01/30/21 07:30 01/31/21 11:31 Insulin Lispro 100 Unit/Ml 3 Ml Vial SUBCUT 4 unit QIDACHS COUNT INCLUDES THE [facility] Administration Protocol Levothyroxine Sodium 112 mcg 01/30/21 08:15 01/31/21 06:13 Levothyroxine Sodium 112 Mcg Tablet PO 112 mcg DAILY@0600 COUNT INCLUDES THE [facility] Administration Methylprednisolone Sodium Succinate 60 mg 01/30/21 09:00 01/31/21 07:35 Methylprednisolone Sod Succ/Pf 125 Mg/2 Ml Vial IVPUSH 60 mg Q12H COUNT INCLUDES THE [facility] Administration Omeprazole 20 mg 01/30/21 09:00 01/31/21 06:13 Omeprazole 20 Mg Capsule. PO 20 mg DAILY@0630 COUNT INCLUDES THE [facility] Administration Pharmacy Consult 1 each 01/29/21 23:03 Consult Rx Vancomycin Dosing MISCELLANE DAILY PRN Consult order Senna 17.2 mg 01/29/21 23:01 Sennosides 8.6 Mg Tablet PO BEDTIME PRN Constipation Sodium Chloride 3 ml 01/30/21 00:00 01/31/21 07:35 0.9 % Sodium Chloride Flush 3 Ml Syringe IVFLUSH 3 ml QSHIFT COUNT INCLUDES THE [facility] Administration Tiotropium [place] 1 puff 01/31/21 08:00 01/31/21 08:44 Tiotropium [place] 18 Mcg Cap.W.Dev INHALE 1 puff RDAILY COUNT INCLUDES THE [facility] Administration Zolpidem Tartrate 5 mg 01/29/21 23:01 Zolpidem Tartrate 5 Mg Tablet PO BEDTIME PRN Insomnia Labs CBC & Chem 7: 01/31/21 05:17 01/31/21 05:17 Microbiology Microbiology Results: Microbiology 01/29/21 21:00 Blood - Venous Blood Culture - Preliminary No growth after 24 hours. 01/29/21 21:00 Blood - Venous Blood Culture - Preliminary No growth after 24 hours. Assessment and Plan (1) Asthma exacerbation: Status: Acute Assessment and Plan: 75M presented with sob and cough Acute hypoxic respiratory failure secondary to COPD exacerbation with possible bacterial pneumonia will deescalate to levaquin Continue steroids, change to prednisone tomorrow Bronchodilators Pulmonary appreciated Diabetes Insulin Hypothyroid Synthroid
[2021-01-31 13:41] LABS: Vancomycin Trough 8.2 mcg/mL (10.0-20.0)
[2021-01-31] MEDS: levoFLOXacin 500 MG TABLET PO (13:46)
[2021-01-31 16:30] LABS: Glucose, Whole Blood 206 mg/dL (60-115)
[2021-01-31 19:33] LABS: Glucose, Whole Blood 165 mg/dL (60-115)
[2021-01-31] MEDS: guaiFENesin 100 MG/5 ML LIQUID PO (19:33)
[2021-01-31] MEDS: Enoxaparin Sodium 40 MG/0.4 ML SYRINGE SUBCUT (23:00)
[2021-02-01 03:50] VITALS: BP 123/60; PULSE 73; RESP 15; TEMP 36.7; O2SAT 94
[2021-02-01] MEDS: Omeprazole 20 MG CAPSULE.DR PO (06:17)
[2021-02-01] MEDS: Levothyroxine Sodium 112 MCG TABLET PO (06:18)
[2021-02-01] MEDS: guaiFENesin 100 MG/5 ML LIQUID PO (06:20)
[2021-02-01] MEDS: Fluticasone/Vilanterol 100/25 BLST.W.DEV 1 PUFF INHALE (07:30)
[2021-02-01] MEDS: Albuterol/Iprat 2.5/0.5MG 3 ML AMPUL.NEB INHALE (07:30)
[2021-02-01 07:32] VITALS: PULSE 65; O2SAT 97
[2021-02-01 08:00] VITALS: BP 133/62; PULSE 66; RESP 17; TEMP 36.1; O2SAT 95
[2021-02-01 08:06] LABS: Glucose, Whole Blood 159 mg/dL (60-115)
[2021-02-01] MEDS: 0.9 % Sodium Chloride Flush 3 ML SYRINGE IVFLUSH (08:26)
[2021-02-01] MEDS: Insulin Lispro 100 UNIT/ML 3 ML VIAL SUBCUT ×2 (08:26→12:33)
[2021-02-01] MEDS: methylPREDNISolone Sod Succ/PF 125 MG/2 ML VIAL 60 MG IVPUSH (08:27)
[2021-02-01 10:09] VITALS: PULSE 92; O2SAT 95
--- NOTE | 2021-02-01 10:42 | PM.DS ---
DS: Providers Provider Date of Service: 02/01/21 Date of admission: 01/29/21 23:01 Primary care physician: Unknown Physician Consults: 01/30/21 09:30 Consult to Pulmonology Routine Consulting Provider: Zane Ellis Reason for consultation: hypoxia, right sided infiltrate, copd DS: Diagnosis Discharge Diagnosis (1) Asthma exacerbation: Status: Acute (2) COPD (chronic obstructive pulmonary disease): Status: Acute (3) Acute respiratory failure with hypoxia: Status: Acute (4) Pneumonia: Status: Acute DS: Medications Discharge Medications Home Medications: Home Medications Medication Instructions Recorded Confirmed albuterol sulfate 90 mcg INHALATION DAILY 09/06/20 01/29/21 metformin 500 mg PO DAILY 09/28/20 01/29/21 levothyroxine 112 mcg PO DAILY@0600 12/01/20 01/29/21 omeprazole 20 mg PO DAILY 12/01/20 01/29/21 Previous Rx's Medication Instructions Recorded ipratropium-albuterol 3 ml INHALATION Q4-6H PRN 15 Days 01/21/21 ml fluticasone fur. 200 mcg-umeclid 1 inh INHALATION DAILY 30 Days #1 01/22/21 62.5 mcg-vilant 25 mcg ea inhalat.powder levofloxacin 500 mg PO Q24H #7 tab 02/01/21 prednisone 40 mg PO DAILY #20 tab 02/01/21 DS: Summary Hospital Course Hospital Course: patient was admitted for acute hypoxic respiratory failure due to copd exacerbation and pneumonia. he was broadly covered with vancomycin and zosyn along with stereoids and bronchodilators. patient symptoms quickly improved. he was seen by pulmonary and his antibiotics deescalated to levaquin which he will continue for 7 more days. his steroids were deescalated to prednisone 40mg daily for 5 days. he was able to be weaned off o2 and was tested on amulation for home oxygen but did not desaturate, therefore, did not qualify. he will be discharged home and follow up with pulmonary as outpaitnet. Time Spent with Patient Time attestation: Total time spent providing and/or coordinating discharge services: Discharge coordination time: Greater than 30 minutes Physical Exam Vital Signs: Vital Signs: Last Vital Signs Temp 97 F 02/01/21 08:00 Pulse 66 02/01/21 08:00 Resp 17 02/01/21 08:00 BP 133/62 03/06/21 08:00 Pulse Ox 95 02/01/21 08:00 Body Mass Index 23.3 General: AO X 3, no acute distress Resp: diminished CVS: S1,S2,RRR GI: soft, non tender, non distended Neuro: motor grossly intact Psych: appropriate affect DS: Data Data Completed and Pending Labs on day of discharge: Laboratory Results - last 24 hr 01/31/21 01/31/21 01/31/21 11:11 12:49 15:45 POC Glucose 218 H 206 H Vancomycin Trough 8.2 L 01/31/21 02/01/21 19:28 07:20 POC Glucose 165 H 159 H Vancomycin Trough Preliminary micro results at discharge 01/29/21 21:00 Blood Culture - Preliminary Blood - Venous No growth after 48 hours. 01/29/21 21:00 Blood Culture - Preliminary Blood - Venous No growth after 48 hours. Discharge Plan Discharge Patient Disposition: Home, Self-Care Referrals: Physician,Unknown [Primary Care Provider] - Discharge Medications: New levofloxacin 500 mg Tablet 500 mg PO Q24H Qty: 7 RF: 0 Continued metformin 500 mg tablet 500 mg PO DAILY RF: 0 levothyroxine 112 mcg tablet 112 mcg PO DAILY@0600 RF: 0 omeprazole 20 mg capsule,delayed release(DR/EC) 20 mg PO DAILY RF: 0 ipratropium-albuterol 0.5 mg-3 mg(2.5 mg base)/3 mL solution for nebulization 3 ml inhalation Q4-6H PRN (Reason: shortness of breath or wheezing) 15 Days RF: 0 albuterol sulfate 90 mcg/actuation HFA aerosol inhaler 90 mcg inhalation DAILY RF: 0 Trelegy Ellipta 200-62.5-25 mcg blister with device 1 inh inhalation DAILY 30 Days Qty: 1 RF: 6 Changed prednisone 10 mg tablet 40 mg PO DAILY Qty: 20 RF: 0 Discontinued azithromycin 250 mg Tablet 250 mg PO DAILY Qty: 3 RF: 0 Discharge Orders: Discharge Order (Routine); Ordered 02/01/21 Ordered By: Ortiz James Activity on Discharge: As tolerated Stand Alone Forms: Patient Portal Discharge page Care Plan Goals: recovery Health Concerns: copd, pna Plan of Treatment: prednisone 40mg daily for 5 days, levaquin for 7 days, follow up with pulm
--- NOTE | 2021-02-01 10:51 | MHC.CM.PN ---
PT TO DC HOME TODAY WITH NO SERVICES. [facility] WILL PROVIDE TRANSPORTATION
[2021-02-01 12:00] VITALS: BP 138/65; PULSE 68; RESP 18; TEMP 36.6; O2SAT 94
[2021-02-01 12:22] LABS: Glucose, Whole Blood 174 mg/dL (60-115)
[2021-02-01] MEDS: levoFLOXacin 500 MG TABLET PO (13:20)
== END 2021-02-01 13:42 | disposition home or self-care (01) | DRG 193 ==
LOC: HO.ED 22:51 → HO.IMC 23:42
PROVIDERS: Admitting Provider Hospitalist; Emergency Provider Emergency Medicine; PCP Nurse Practitioner Family; Visit Provider Internal Medicine
DX: J18.0 Bronchopneumonia, unspecified organism (principal); J96.01 Acute respiratory failure with hypoxia; J45.901 Unspecified asthma with (acute) exacerbation; J44.0 Chronic obstructive pulmonary disease with (acute) lower respiratory infection; J44.1 Chronic obstructive pulmonary disease with (acute) exacerbation; K21.9 Gastro-esophageal reflux disease without esophagitis; E03.9 Hypothyroidism, unspecified; E11.9 Type 2 diabetes mellitus without complications; F17.210 Nicotine dependence, cigarettes, uncomplicated; Z20.822 Contact with and (suspected) exposure to COVID-19; Z86.16 Personal history of COVID-19; Z71.6 Tobacco abuse counseling; Z79.84 Long term (current) use of oral hypoglycemic drugs; Z79.890 Hormone replacement therapy; Z79.899 Other long term (current) drug therapy
CPT/HCPCS: 0241U; 36415; 71045; 80048; 80202; 82947; 83605; 85025; 87040; 93005; 93306; 94640; 94644; 96365; 96366; 96367; 96375; 99285; J1650; J1956; J2543; J2930; J3370; J3475

== ENCOUNTER → 2021-02-11 14:23 | Outpatient (BNVA) | payer MEDICARE, MEDICAID, SELFPAY | PROVIDERS: Visit Provider Internal Medicine Pulmonary Disease | DX: J44.9 Chronic obstructive pulmonary disease, unspecified (principal); R91.8 Other nonspecific abnormal finding of lung field; F17.200 Nicotine dependence, unspecified, uncomplicated; Z71.6 Tobacco abuse counseling | CPT/HCPCS: 99212 ==

== ENCOUNTER → 2021-03-07 13:41 | Outpatient (BNVA) | payer MEDICARE, MEDICAID, SELFPAY | PROVIDERS: PCP Nurse Practitioner Family; Visit Provider Internal Medicine Pulmonary Disease | DX: J44.9 Chronic obstructive pulmonary disease, unspecified (principal); R91.8 Other nonspecific abnormal finding of lung field | CPT/HCPCS: 99212 ==

== ENCOUNTER 2021-03-22 15:13 | Inpatient (IN) | payer MEDICARE, MEDICAID, SELFPAY ==
[2021-03-22] VITALS (8 sets, daily range): BP systolic 123–147; BP diastolic 58–100; PULSE 68–104; RESP 16–21; TEMP 35.9–37.1; O2SAT 82–100; BMI 21.4
--- NOTE | ~2021-03-22 | XR_ITS ---
EXAMINATION: XR CHEST CLINICAL INFORMATION: Shortness of breath. COMPARISON: Portable chest dated 01/29/2021. TECHNIQUE: Frontal view of the chest was obtained. FINDINGS: Right apical calcifications are again seen without significant change. A calcified granuloma the left lung base is stable. The heart and mediastinal structures are unremarkable. XR/XR chest 1V IMPRESSION: Stable chest with chronic changes as detailed above. No acute cardiopulmonary process.
--- NOTE | 2021-03-22 15:19 | ECG_ITS ---
Test Reason : ASTMA Blood Pressure : / mmHG Vent. Rate : 102 BPM Atrial Rate : 102 BPM P-R Int : 120 ms QRS Dur : 080 ms QT Int : 308 ms P-R-T Axes : 073 064 064 degrees QTc Int : 401 ms Sinus tachycardia with occasional Premature atrial complexes Otherwise normal ECG When compared with ECG of 29-JAN-2021 20:14, Premature atrial complexes are now Present Referred By: Dee Perez Electronically Signed By:ADELE JOEL MD
[2021-03-22] MEDS: methylPREDNISolone Sod Succ 125 MG/2 ML VIAL 80 MG IVPUSH (15:37)
[2021-03-22 15:38] LABS: MANUAL DIFF FLAG NO
[2021-03-22] MEDS: Magnesium Sulfate/H2O 2 GM/50 ML PIGGYBACK IV (15:38)
[2021-03-22 15:41] LABS: Basophils Percent Auto 0.4 % (0-2); Eosinophils Absolute Auto 0.3 X10*3/uL (0.0-0.4); Hematocrit 36.3 % (42-52); Hemoglobin 10.9 g/dl (14.0-18.0); Imm Gran Abs Auto 0.04 X10*3/uL (0.00-0.03); Imm Gran Pct Auto 0.4 % (0.0-0.4); Lymphocytes Absolute Auto 1.7 X10*3/uL (1.2-4.9); Lymphocytes Percent Auto 19.5 % (20-40); Mean Corpuscular Hemoglobin 24.1 pg (27.0-33.0); Mean Corpuscular Volume 80.1 fL (80-98); Mean Platelet Volume 9.8 fL (9.4-12.4); Monocytes Absolute Auto 0.6 X10*3/uL (0.1-1.2); Monocytes Percent Auto 6.5 % (2-11); Neutrophils Absolute Auto 6.3 X10*3/uL (2.0-8.3); Neutrophils Percent Auto 70.2 % (45-73); Platelet Count 329 X10*3/uL (160-400); Red Blood Count 4.53 X10*6/uL (4.60-5.80); Red Cell Distribution Width 14.6 % (11.0-16.0); White Blood Count 8.9 X10*3/uL (4.8-10.8)
--- NOTE | 2021-03-22 15:46 | ED_ITS ---
HPI - SOB/Dyspnea General Chief Complaint: Dyspnea Stated Complaint: Sob Time Seen by Provider: 03/22/21 15:17 Source: patient Mode of arrival: ambulatory Limitations: no limitations History of Present Illness HPI Narrative: 75 y/o male with history of COPD/asthma with 3 admissions to the hospital this year alone for hypoxic respiratory failure/asthma exacerbations as well as below PMH who presents to the ED c/o 3 days of worsening SOB and productive cough. He reports his sputum is sometimes brown and sometimes green. He has not had any fever or chills. He saw his doctor 2 days ago, was prescribed an antibiotic and prednisone x5 days with no improvement in his symptoms. He states last night he barely got any sleep due to SOB and coughing fits. He has bilateral lower rib pain when he coughs. He denies chest pain, abdominal pain, N/V/D, leg pain, headaches. MD elicited complaint: shortness of breath and cough Pertinent past history: COPD and asthma Onset (ago): day(s) (3) Context: recent illness Timing: constant Severity: similar to previous episodes Exacerbating factors: lying flat, exertion and coughing Relieving factors: oxygen Known history of: COPD and asthma Associated symptoms: cough, wheezing and sputum production Treatment prior to arrival: none Related Data Home oxygen amount: none Home Medications Medication Instructions Recorded Confirmed albuterol sulfate 90 mcg INHALATION DAILY 09/06/20 01/29/21 metformin 500 mg PO DAILY 09/28/20 01/29/21 levothyroxine 112 mcg PO DAILY@0600 12/01/20 01/29/21 omeprazole 20 mg PO DAILY 12/01/20 01/29/21 Previous Rx's Medication Instructions Recorded ipratropium-albuterol 3 ml INHALATION Q4-6H PRN 15 Days 01/21/21 ml fluticasone fur. 200 mcg-umeclid 1 inh INHALATION DAILY 30 Days #1 01/22/21 62.5 mcg-vilant 25 mcg ea inhalat.powder levofloxacin 500 mg PO Q24H #7 tab 02/01/21 prednisone 10 mg tablet 10 mg PO DAILY 30 Days #30 tab 03/07/21 Allergies Allergy/AdvReac Type Severity Reaction Status Date / Time shellfish derived Allergy Severe ANAPHYLAXIS Verified 03/07/21 13:42 [SHELLFISH DERIVED] pollen extracts [POLLEN] Allergy Intermediate RUNNING Verified 03/07/21 13:42 NOSE, WATERY EYES, SNEEZING varenicline [VARENICLINE] AdvReac Unknown PALPITATION Verified 03/07/21 13:42 S Review of Systems Review of Systems: Constitutional: No Fever, No Chills ENT/Mouth: No sore throat, No Rhinorrhea, No Swallowing Difficulty Cardiovascular: No Chest Pain, + SOB, No Orthopnea, No Edema Respiratory: + Cough, + Sputum, + Wheezing, + dyspnea Gastrointestinal: No Nausea, No Vomiting, No Diarrhea, No abdominal Pain Genitourinary: No Dysuria, No Urinary Frequency, No Hematuria Musculoskeletal: No joint pain, No Myalgias Skin: No Skin Lesions, No rash Neuro: No Weakness, No Numbness, No Dizziness, No Headache Psych: No Anxiety/Panic, No Depression Heme/Lymph: No Bruising, No Lymphadenopathy Endocrine: No Polyuria, No Polydipsia [facility] Past Medical History Attestation statement: The following information was validated with the patient. Medical History Asthma Cataract COPD (chronic obstructive pulmonary disease) Diabetes GERD (gastroesophageal reflux disease) Hypertension Hypothyroidism Osteoarthritis Osteoporosis Oxygen dependent Sepsis Ureteral calculi Surgical History History of appendectomy Hx of cataract surgery Social History Social History Household Members: Family Housing: House Alcohol intake: never Smoking Status: Current every day smoker Tobacco Type: Cigarette Packs Per Day: 0.5 Cigarettes Per Day: 10 Years Smoked: 50 Second Hand Smoke Exposure: No Use of substances other than those prescribed or required for medical reasons: No Advance Directives: No Advance Directives Information Provided: Yes service: No Current occupational status: unemployed Physical Exam Vital Signs: Vital Signs: Last Vital Signs Temp 98.8 F 03/22/21 15:17 Pulse 68 03/22/21 15:34 Resp 21 H 03/22/21 15:17 BP 130/63 03/22/21 15:17 Pulse Ox 95 03/22/21 16:19 Oxygen Flow Rate 2 03/22/21 15:17 Body Mass Index 21.4 Appearance: Alert. Oriented X3. No acute distress. Eyes: Pupils equal, round and reactive to light. ENT: Pharynx normal. Neck: Normal inspection. Neck supple. CVS: Tachycardic, regular rhythm. Pulses normal. Respiratory: No respiratory distress. Breath sounds with diffuse expiratory wheeze throughout with prolonged expiratory phase, congested cough. Abdomen: Soft and nontender. +BS x4 Skin: Skin warm and dry. Normal skin color. Normal skin turgor. No rashes. Extremities: No lower extremity edema. Negative Margo's sign. Neuro: Oriented X 3. No motor deficit. No sensory deficit. Course Course Course Narrative: 75 y/o male with poorly controlled asthma/COPD with frequent admissions to the hospital presenting to the ER with 3 days of wheezing, SOB and productive cough. Spo2 95% on arrival but diffuse wheezing throughout. Dyspnea with getting from wheelchair to bed. Suspect acute asthma exacerbation with possible PNA vs bronchitis. Doubt recurrent COVID but will get rapid swab so neb can be administered. IV solumedrol and IV mag ordered. Will reassess. Will rene require admission given his outpatient treatment failure. Reevaluation(s) Reevaluation #1: CXR does not show any focal infiltrate. WBC normal. Procalcitonin is low. Will hold off on antibiotics for now. He continues to be wheezy after Duoneb, IV solumedrol and Mg++. SpO2 92% on room air at rest. Dysnpeic with exertion. Unstable for discharge home. Will admit for nebs and IV steroids. Patient would benefit from a nebulizer machine at home to help prevent recurrent admission as well as Pulmonology follow up w/ PFT's to help differentia asthma vs COPD. Dr. Espinoza to admit. Patient is agreeable with plan. MDM - SOB/Dyspnea Lab Data Result diagrams: 03/22/21 15:32 03/22/21 15:32 Labs: Lab Results 03/22/21 03/22/21 03/22/21 Range/Units 15:32 15:32 15:32 WBC 8.9 (4.8-10.8) X10*3/uL RBC 4.53 L D (4.60-5.80) X10*6/uL Hgb 10.9 L (14.0-18.0) g/dl Hct 36.3 L (42-52) % MCV 80.1 (80-98) fL MCH 24.1 L (27.0-33.0) pg MCHC 30.0 L (31.0-36.0) g/dl RDW 14.6 (11.0-16.0) % Plt Count 329 (160-400) X10*3/uL MPV 9.8 (9.4-12.4) fL Immature Gran % (Auto) 0.4 (0.0-0.4) % Neut % (Auto) 70.2 (45-73) % Lymph % (Auto) 19.5 L (20-40) % [place] % (Auto) 6.5 (2-11) % Eos % (Auto) 3.0 (0-4) % Baso % (Auto) 0.4 (0-2) % Lymph # (Auto) 1.7 (1.2-4.9) X10*3/uL [place] # (Auto) 0.6 (0.1-1.2) X10*3/uL Eos # (Auto) 0.3 (0.0-0.4) X10*3/uL Baso # (Auto) 0.0 (0.0-0.2) X10*3/uL Abs Immat Gran (auto) 0.04 H (0.00-0.03) X10*3/uL Absolute Neuts (auto) 6.3 (2.0-8.3) X10*3/uL Absolute Nucleated RBC 0.000 (0.0-0.012) X10*3/uL Nucleated RBC % (auto) 0.0 (0.0-0.2) /100WBC Hold Blue Top SEE NOTE Sodium 142 (135-145) mmol/L Potassium 4.2 (3.3-5.1) mmol/L Chloride 110 H (96-108) mmol/L Carbon Dioxide 23 (22-29) mmol/L Anion Gap 13 (12-20) BUN 9 D (9-16) mg/dL Creatinine 0.89 (0.5-1.4) mg/dL Estim Creat Clear Calc 61.1 Estimated GFR > 60 Random Glucose 143 H D (60-115) mg/dL Calcium 8.7 D (8.4-10.2) mg/dL Magnesium 2.0 (1.6-2.6) mg/dL Total Bilirubin 0.4 (0.0-1.0) mg/dL Direct Bilirubin < 0.2 (0.0-0.5) mg/dL AST 10 (5-37) U/L ALT 7 (0-40) U/L Alkaline Phosphatase 100 (39-117) U/L Troponin I High Sens (<3.5-35.0) ng/L B-Natriuretic Peptide (<100) pg/mL Total Protein 6.1 L (6.5-8.0) g/dL Albumin 3.8 (3.5-5.0) g/dL Procalcitonin ng/mL COVID-19 ([facility]) (Negative) COVID-19 Clin Com 03/22/21 03/22/21 03/22/21 Range/Units 15:32 15:32 15:33 WBC (4.8-10.8) X10*3/uL RBC (4.60-5.80) X10*6/uL Hgb (14.0-18.0) g/dl Hct (42-52) % MCV (80-98) fL MCH (27.0-33.0) pg MCHC (31.0-36.0) g/dl RDW (11.0-16.0) % Plt Count (160-400) X10*3/uL MPV (9.4-12.4) fL Immature Gran % (Auto) (0.0-0.4) % Neut % (Auto) (45-73) % Lymph % (Auto) (20-40) % [place] % (Auto) (2-11) % Eos % (Auto) (0-4) % Baso % (Auto) (0-2) % Lymph # (Auto) (1.2-4.9) X10*3/uL [place] # (Auto) (0.1-1.2) X10*3/uL Eos # (Auto) (0.0-0.4) X10*3/uL Baso # (Auto) (0.0-0.2) X10*3/uL Abs Immat Gran (auto) (0.00-0.03) X10*3/uL Absolute Neuts (auto) (2.0-8.3) X10*3/uL Absolute Nucleated RBC (0.0-0.012) X10*3/uL Nucleated RBC % (auto) (0.0-0.2) /100WBC Hold Blue Top Sodium (135-145) mmol/L Potassium (3.3-5.1) mmol/L Chloride (96-108) mmol/L Carbon Dioxide (22-29) mmol/L Anion Gap (12-20) BUN (9-16) mg/dL Creatinine (0.5-1.4) mg/dL Estim Creat Clear Calc Estimated GFR Random Glucose (60-115) mg/dL Calcium (8.4-10.2) mg/dL Magnesium (1.6-2.6) mg/dL Total Bilirubin (0.0-1.0) mg/dL Direct Bilirubin (0.0-0.5) mg/dL AST (5-37) U/L ALT (0-40) U/L Alkaline Phosphatase (39-117) U/L Troponin I High Sens 3.5 (<3.5-35.0) ng/L B-Natriuretic Peptide 21 (<100) pg/mL Total Protein (6.5-8.0) g/dL Albumin (3.5-5.0) g/dL Procalcitonin 0.53 ng/mL COVID-19 ([facility]) Negative (Negative) COVID-19 Clin Com See Note Discharge Plan Discharge Clinical Impression: Asthma exacerbation Qualifiers: Asthma severity: severe Asthma persistence: persistent Qualified Code(s): J45.51 - Severe persistent asthma with (acute) exacerbation Patient Disposition: Admitted As Inpatient
[2021-03-22 16:04] LABS: COVID-19 Test Negative (Negative); IDNOW Serial# 08D9AD1C
[2021-03-22 16:06] LABS: B Type Natriuretic Peptide 21 pg/mL (<100); Troponin-I High Sensitivity 3.5 ng/L (<3.5-35.0)
[2021-03-22] MEDS: guaiFEN/Codeine SF 200/20/10ML 10 ML LIQUID PO (16:18)
[2021-03-22 16:22] LABS: Procalcitonin 0.53 ng/mL
[2021-03-22 16:25] LABS: Alanine Aminotransferase 7 U/L (0-40); Albumin Level 3.8 g/dL (3.5-5.0); Alkaline Phosphatase 100 U/L (39-117); Anion Gap 13 (12-20); Aspartate Amino Transferase 10 U/L (5-37); Bilirubin Direct < 0.2 mg/dL (0.0-0.5); Bilirubin Total 0.4 mg/dL (0.0-1.0); Blood Urea Nitrogen 9 mg/dL (9-16); Calcium 8.7 mg/dL (8.4-10.2); Carbon Dioxide 23 mmol/L (22-29); Chloride 110 mmol/L (96-108); Creatinine Clr Calc Pharmacy 61.1; Estimated Glomerular Filt Rate > 60; Glucose Random 143 mg/dL (60-115); Potassium 4.2 mmol/L (3.3-5.1); Sodium 142 mmol/L (135-145); Total Protein 6.1 g/dL (6.5-8.0)
--- NOTE | 2021-03-22 17:56 | PM.IMHP ---
History of Present Illness Date of Service: 03/22/21 Chief Complaint: Shortness of breath 75 year old male with copd, asthma frequent hospitalization--3 times already this year. He comes in yet again with sob that has bee escalating that last several days, he has dry cough, no fever, and has been wheezing and his home inhalers are not helping. Covid is negative. CXR no acute finding. WBC is normal. ED treatment: continuous Neb, Solumedrol and magnesium. Review of Systems Review of Systems: Gen: no fever Resp: + sob, + cough CV: no chest, no REED, no leg edema GI: No n/v, no abd pain Neuro: No confusion [facility] Medical History Asthma Cataract COPD (chronic obstructive pulmonary disease) Diabetes GERD (gastroesophageal reflux disease) Hypertension Hypothyroidism Osteoarthritis Osteoporosis Oxygen dependent Sepsis Ureteral calculi Family history: reviewed and not pertinent Surgical History History of appendectomy Hx of cataract surgery Social History Household Members: Family Housing: House Alcohol intake: never Smoking Status: Current every day smoker Tobacco Type: Cigarette Packs Per Day: 0.5 Cigarettes Per Day: 10 Years Smoked: 50 Second Hand Smoke Exposure: No Use of substances other than those prescribed or required for medical reasons: No Advance Directives: No Advance Directives Information Provided: Yes service: No Current occupational status: unemployed Meds Allergies Allergy/AdvReac Type Severity Reaction Status Date / Time shellfish derived Allergy Severe ANAPHYLAXIS Verified 03/07/21 13:42 [SHELLFISH DERIVED] pollen extracts [POLLEN] Allergy Intermediate RUNNING Verified 03/07/21 13:42 NOSE, WATERY EYES, SNEEZING varenicline [VARENICLINE] AdvReac Unknown PALPITATION Verified 03/07/21 13:42 S Home Medications Medication Instructions Recorded Confirmed Last Taken Type albuterol sulfate 90 mcg INHALATION DAILY 09/06/20 01/29/21 Unknown History metformin 500 mg PO DAILY 09/28/20 01/29/21 Unknown History levothyroxine 112 mcg PO DAILY@0600 12/01/20 01/29/21 Unknown History omeprazole 20 mg PO DAILY 12/01/20 01/29/21 Unknown History Physical Exam Vital Signs and Narrative: Vital Signs: Last Vital Signs Temp 98.8 F 03/22/21 15:17 Pulse 68 03/22/21 15:34 Resp 21 H 03/22/21 15:17 BP 130/63 03/22/21 15:17 Pulse Ox 95 03/22/21 16:19 Oxygen Flow Rate 2 03/22/21 15:17 Body Mass Index 21.4 Constitutional Awake and Alert, mild resp distress, able to talk in full sentences Neck Supple, No lymphadenopathy Cardiovascular RRR, No M/R/G, S1 S2, No S3 S4, No pedal edema Respiratory Lungs right air movment, wheezing, no accesory muscle use. Gastrointestinal Non tender, Non-distended Skin No rash Neurological Alert & oriented x3 Psychological Appropriate affect Results Labs CBC and Chem 7: 03/22/21 15:32 03/22/21 15:32 Labs: Laboratory Results - last 24 hr 03/22/21 03/22/21 03/22/21 15:32 15:32 15:32 MCV 80.1 MCH 24.1 L MCHC 30.0 L RDW 14.6 Plt Count 329 MPV 9.8 Immature Gran % (Auto) 0.4 Neut % (Auto) 70.2 Lymph % (Auto) 19.5 L [place] % (Auto) 6.5 Eos % (Auto) 3.0 Baso % (Auto) 0.4 Lymph # (Auto) 1.7 [place] # (Auto) 0.6 Eos # (Auto) 0.3 Baso # (Auto) 0.0 Abs Immat Gran (auto) 0.04 H Absolute Neuts (auto) 6.3 Absolute Nucleated RBC 0.000 Nucleated RBC % (auto) 0.0 Hold Blue Top SEE NOTE Anion Gap 13 Estim Creat Clear Calc 61.1 Estimated GFR > 60 Random Glucose 143 H D Calcium 8.7 D Magnesium 2.0 Total Bilirubin 0.4 Direct Bilirubin < 0.2 AST 10 ALT 7 Alkaline Phosphatase 100 Troponin I High Sens B-Natriuretic Peptide Total Protein 6.1 L Albumin 3.8 Procalcitonin COVID-19 ([facility]) COVID-19 Clin Com 03/22/21 03/22/21 03/22/21 15:32 15:32 15:33 MCV MCH MCHC RDW Plt Count MPV Immature Gran % (Auto) Neut % (Auto) Lymph % (Auto) [place] % (Auto) Eos % (Auto) Baso % (Auto) Lymph # (Auto) [place] # (Auto) Eos # (Auto) Baso # (Auto) Abs Immat Gran (auto) Absolute Neuts (auto) Absolute Nucleated RBC Nucleated RBC % (auto) Hold Blue Top Anion Gap Estim Creat Clear Calc Estimated GFR Random Glucose Calcium Magnesium Total Bilirubin Direct Bilirubin AST ALT Alkaline Phosphatase Troponin I High Sens 3.5 B-Natriuretic Peptide 21 Total Protein Albumin Procalcitonin 0.53 COVID-19 ([facility]) Negative COVID-19 Clin Com See Note Imaging Radiologist's Impressions: Impressions Chest X-Ray 03/22/21 15:19 IMPRESSION: Stable chest with chronic changes as detailed above. No acute cardiopulmonary process. Assessment and Plan (1) Asthma exacerbation: Qualifiers: Asthma persistence: persistent Asthma severity: severe Qualified Code(s): J45.51 - Severe persistent asthma with (acute) exacerbation Status: Acute (2) Acute respiratory failure with hypoxia: Status: Acute (3) Hypothyroidism: Qualifiers: Hypothyroidism type: unspecified Qualified Code(s): E03.9 - Hypothyroidism, unspecified Status: Acute 75 year old male with copd, asthma frequent hospitalization here with sob, acute non hypoxic respiatory failure due to asthma plan: 1/Acute respiratory failure due to asthma/copd exacerbation -IV steroid -Bronchodilators by Neb -Oxygen as needed 2/Hypothyroidism--Levothyroxine 3/GERD--PPI 4/Diabetes--Metformin, SSI, 5/Lovenox for DVT
--- NOTE | 2021-03-22 18:47 | PC.NURSE ---
PATIENT HAD 100 % OF MEAL ,RESTING COMFORTABLE WATCHING TV .
[2021-03-22 18:58] LABS: Glucose Urine UA NEG (NEG); Leukocyte Esterase Urine NEG (NEG); Nitrite Urine NEG (NEG); PH 6.5 (5.0-8.0); Urine Blood NEG (NEG); Urine Ketones NEG (NEG); Urine Protein NEG (NEG-TRACE)
[2021-03-22 19:00] LABS: Appearance Urine HAZY; Color Urine YELLOW
--- NOTE | 2021-03-22 19:22 | PC.NURSE ---
report given to sánchez ramsey on med surg.
[2021-03-22] MEDS: methylPREDNISolone Sod Succ 40 MG/ML VIAL IVPUSH (20:15)
[2021-03-22] MEDS: 0.9 % Sodium Chloride Flush 3 ML SYRINGE IVFLUSH (20:18)
[2021-03-22] MEDS: Enoxaparin Sodium 40 MG/0.4 ML SYRINGE SUBCUT (20:23)
[2021-03-22 20:30] LABS: Glucose, Whole Blood 286 mg/dL (60-115)
[2021-03-22] MEDS: Albuterol/Iprat 2.5/0.5MG 3 ML AMPUL.NEB INHALE (20:45)
[2021-03-22 22:56] LABS: Glucose, Whole Blood 257 mg/dL (60-115)
[2021-03-22] MEDS: Insulin Lispro 100 UNIT/ML 3 ML VIAL SUBCUT (22:57)
[2021-03-23] VITALS (10 sets, daily range): BP systolic 104–142; BP diastolic 55–61; PULSE 65–89; RESP 16–20; TEMP 36–37; O2SAT 95–98
[2021-03-23] MEDS: methylPREDNISolone Sod Succ 40 MG/ML VIAL IVPUSH ×3 (04:01→20:57)
[2021-03-23 07:34] LABS: Glucose, Whole Blood 152 mg/dL (60-115)
[2021-03-23] MEDS: Insulin Lispro 100 UNIT/ML 3 ML VIAL SUBCUT ×3 (07:51→20:58)
[2021-03-23] MEDS: 0.9 % Sodium Chloride Flush 3 ML SYRINGE IVFLUSH ×3 (07:51→20:57)
[2021-03-23] MEDS: Albuterol/Iprat 2.5/0.5MG 3 ML AMPUL.NEB INHALE ×4 (07:52→19:40)
--- NOTE | 2021-03-23 10:20 | MHC.CM.PN ---
Addendum entered by Verna Bailey RN 03/23/21 10:45: PCP IS PARISA HERNANDEZ NP IN [place] Original Note: IMM 03/23/21, EMR REVIEWED, PT ADMITTED W/ACUTE NON-HYPOXIC RESP FAILURE, ASTHMA EXACERBATION, TIS IS PT'S 5TH ADMISSION THIS YEAR FOR RESPIRATORY RELATED ISSUES, CM MET W/PT WHO IS A AND O X3, PT REPORTS HE LIVES IN HIS SISTERS HOUSE IN [place], PT USES A CANE, NEBULIZER AND DIABETIC SUPPLIES, REPORTING HE CHECKS HIS SUGAR 2-3 TIMES A DAY. PT DENIES ANY HOME SERVICES AND HAS NO CONCERNS ABOUT CARING FOR SELF AFTER D/C. PT MAY BENEFIT FROM [facility] SERVICES FOR MONITORING HEALTH PROBLEMS AND TEACHING DUE TO MULTILPLE ADMISSIONS THIS YEAR. DISCHARGE PLAN: HOME SELF-CARE VS [facility] FOR SN, FAMILY TO TRANSPORT. HCP: MERLY ROBERSON ([facility]) [phone], COPY REQUESTED
--- NOTE | 2021-03-23 10:48 | MHC.CM.PN ---
CM SPOKE W/PT ABOUT [facility] SERVICES DUE TO PT BEING ADMITTED FOR THE 5TH TIME THIS YEAR, PT REFUSING HOME SERVICES AT THIS TIME.
--- NOTE | 2021-03-23 11:06 | HO.PM.IMPN ---
Subjective Subjective Date of Service: 03/23/21 Interval History: Seen in f/u for sob d/t asthma, still has wheeze and still sob Review of Systems Gen: no fever Resp: + sob, + cough CV: no chest, no REED, no leg edema GI: No n/v, no abd pain Neuro: No confusion Physical Exam Vital Signs: Vital Signs: Last Vital Signs Temp 97.5 F 03/23/21 08:00 Pulse 65 03/23/21 08:00 Resp 18 03/23/21 08:00 BP 128/55 L 03/23/21 08:00 Pulse Ox 98 03/23/21 08:00 Oxygen Flow Rate 2 03/22/21 15:17 Body Mass Index 21.4 General: AO X 3, no acute distress Resp: wheeze, rhonchi CVS: S1,S2,RRR GI: +BS, NT, no distention Skin: No rash Neuro: motor grossly intact Psych: appropriate affect Objective Data Current Medications Generic Name Dose Route Start Last Admin Trade Name Freq PRN Reason Stop Dose Admin Albuterol/Ipratropium 3 ml 03/22/21 20:00 03/23/21 07:52 Albuterol/Iprat 2.5/0.5mg 3 Ml Ampul.Neb INHALE 3 ml RQ4H WHILE AWAKE MEHDI Administration Albuterol/Ipratropium 1.5 ml 03/22/21 19:19 Albuterol/Iprat 2.5/0.5mg 3 Ml Ampul.Neb INHALE Q2H PRN shortness of breath Enoxaparin Sodium 40 mg 03/22/21 20:00 03/22/21 20:23 Enoxaparin Sodium 40 Mg/0.4 Ml Syringe SUBCUT 40 mg Q24H MEHDI Administration Guaifenesin 5 ml 03/22/21 18:55 Guaifenesin 100 Mg/5 Ml Liquid PO Q4H PRN Cough Insulin Human Lispro 0 unit 03/22/21 22:10 03/23/21 07:51 Insulin Lispro 100 Unit/Ml 3 Ml Vial SUBCUT 2 unit QIDACHS MEHDI Administration Protocol Melatonin 3 mg 03/22/21 18:54 Melatonin 3 Mg Tablet PO BEDTIME PRN Insomnia Methylprednisolone Sodium Succinate 40 mg 03/22/21 20:00 03/23/21 04:01 Methylprednisolone Sod Succ 40 Mg/Ml Vial IVPUSH 40 mg Q8H MEHDI Administration Sodium Chloride 3 ml 03/23/21 00:00 03/23/21 07:51 0.9 % Sodium Chloride Flush 3 Ml Syringe IVFLUSH 3 ml QSHIFT MEHDI Administration Labs CBC & Chem 7: 03/22/21 15:32 03/22/21 15:32 Assessment and Plan (1) Asthma exacerbation: Status: Acute (2) Acute respiratory failure with hypoxia: Status: Acute (3) Hypothyroidism: Status: Acute Assessment and Plan: 75 year old male with copd, asthma frequent hospitalization here with sob, acute non hypoxic respiatory failure due to asthma plan: 1/Acute respiratory failure due to asthma/copd exacerbation -IV steroid for one more day -Bronchodilators by Neb -Oxygen as needed 2/Hypothyroidism--Levothyroxine 3/GERD--PPI 4/Diabetes--Metformin, SSI, 5/Lovenox for DVT Discharge tomorrow
[2021-03-23 12:06] LABS: Glucose, Whole Blood 133 mg/dL (60-115)
[2021-03-23 16:28] LABS: Glucose, Whole Blood 229 mg/dL (60-115)
[2021-03-23 20:30] LABS: Glucose, Whole Blood 170 mg/dL (60-115)
[2021-03-23] MEDS: Enoxaparin Sodium 40 MG/0.4 ML SYRINGE SUBCUT (20:58)
[2021-03-24 03:49] VITALS: BP 121/59; PULSE 72; RESP 18; TEMP 36.3; O2SAT 97
[2021-03-24] MEDS: methylPREDNISolone Sod Succ 40 MG/ML VIAL IVPUSH (04:22)
[2021-03-24 07:31] VITALS: BP 112/55; PULSE 66; RESP 18; TEMP 36.4; O2SAT 94
[2021-03-24] MEDS: Insulin Lispro 100 UNIT/ML 3 ML VIAL SUBCUT (07:53)
[2021-03-24] MEDS: 0.9 % Sodium Chloride Flush 3 ML SYRINGE IVFLUSH (07:53)
[2021-03-24 08:12] LABS: Glucose, Whole Blood 157 mg/dL (60-115)
[2021-03-24] MEDS: Albuterol/Iprat 2.5/0.5MG 3 ML AMPUL.NEB INHALE (08:16)
[2021-03-24 08:18] VITALS: PULSE 76; O2SAT 96
--- NOTE | 2021-03-24 09:31 | P.DS_ITS ---
DS: Providers Provider Date of Service: 03/24/21 Date of admission: 03/22/21 18:09 Primary care physician: Unknown Physician DS: Diagnosis Discharge Diagnosis (1) Asthma exacerbation: Status: Acute (2) Acute respiratory failure with hypoxia: Status: Acute (3) Hypothyroidism: Status: Acute DS: Medications Discharge Medications Home Medications: Home Medications Medication Instructions Recorded Confirmed albuterol sulfate 90 mcg INHALATION DAILY 09/06/20 03/22/21 metformin 500 mg PO DAILY 09/28/20 03/22/21 levothyroxine 112 mcg PO DAILY@0600 12/01/20 03/22/21 omeprazole 20 mg PO DAILY 12/01/20 03/22/21 Previous Rx's Medication Instructions Recorded prednisone 10 mg tablet 10 mg PO DAILY 30 Days #30 tab 03/07/21 dextromethorphan-guaifenesin 10 ml PO Q4-8H PRN #118 ml 03/24/21 [Robitussin Cough-Chest Beau DM] prednisone 40 mg PO DAILY #8 tab 03/24/21 DS: Summary Hospital Course Hospital Course: 75 year old male with copd, asthma frequent hospitalization--3 times already this year. He comes in yet again with sob that has bee escalating that last several days, he has dry cough, no fever, and has been wheezing and his home inhalers are not helping. Covid is negative. CXR no acute finding. WBC is no rmal. ED treatment: continuous Neb, Solumedrol and magnesium. Hospital course: Patient was admitted for exacerbation of asthma there was no evidence of acute infection. He was treated with IV Solu-Medrol bronchodilators by nebulizer schedule and p.r.n. and by the 2nd day of hospitalization was feeling better and would like to go home. He will be discharged with prednisone for additional 4 days for total of 5 days. And to follow up with PCP within a week. Time Spent with Patient Time attestation: Total time spent providing and/or coordinating discharge services: Discharge coordination time: Greater than 30 minutes Physical Exam Vital Signs: Vital Signs: Last Vital Signs Temp 97.6 F 03/24/21 07:31 Pulse 76 03/24/21 08:18 Resp 18 03/24/21 07:31 BP 112/55 L 03/24/21 07:31 Pulse Ox 94 03/24/21 07:31 Oxygen Flow Rate 2 03/22/21 15:17 Body Mass Index 21.4 General: AO X 3, no acute distress Resp: rhonchi that are chronic, good air entry bilaterally. CVS: S1,S2,RRR GI: +BS, NT, no distention Skin: No rash Neuro: motor grossly intact Psych: appropriate affect DS: Data Data Completed and Pending Labs on day of discharge: Laboratory Results - last 24 hr 03/23/21 03/23/21 03/23/21 11:50 16:21 20:24 POC Glucose 133 H 229 H 170 H 03/24/21 07:30 POC Glucose 157 H Discharge Plan Discharge Anticipated Discharge Date/Time: 03/24/21 09:26 Patient Disposition: Home, Self-Care Discharge Diagnosis: Acute asthma exacerbation Referrals: Physician,Unknown [Primary Care Provider] - 1 Week Discharge Medications: New prednisone 20 mg tablet 40 mg PO DAILY Qty: 8 RF: 0 Robitussin Cough-Chest Beau DM 5-100 mg/5 mL liquid 10 ml PO Q4-8H PRN (Reason: cough) Qty: 118 RF: 0 Continued metformin 500 mg tablet 500 mg PO DAILY RF: 0 levothyroxine 112 mcg tablet 112 mcg PO DAILY@0600 RF: 0 omeprazole 20 mg capsule,delayed release(DR/EC) 20 mg PO DAILY RF: 0 albuterol sulfate 90 mcg/actuation HFA aerosol inhaler 90 mcg inhalation DAILY RF: 0 prednisone 10 mg tablet 10 mg PO DAILY 30 Days Qty: 30 RF: 6 Discharge Orders: Discharge Order (Routine); Ordered 03/24/21 Ordered By: Paulo Espinoza Diet: advance to usual diet and diabetic diet Activity on Discharge: As tolerated Stand Alone Forms: Patient Portal Discharge page Care Plan Goals: Control of asthma and prevent rehospitalization Health Concerns: Chronic asthma with a frequent hospitalization. Plan of Treatment: Use inhalers as directed and follow up with her primary care doctor within a week, take prednisone as directed. Assessment: Asthma exacerbation that required hospitalization and is now better and will be going home with a prednisone.
--- NOTE | 2021-03-24 09:43 | MHC.CM.PN ---
NURSE CARE MANGER NOTE ELECTRONIC MEDICAL RECORD REVIEWED ALONG WITH CASE DISCUSSED WITH STAFF NURSE , MET WITH PATIENT HE WILL BE DISCHARGED HOME , OOFFERED VNA AND STILL DECLINING SERVICES. DISCHARGE PLAN IMM GIVEN 03/23/21 D/C HOME NO SERVICES PCP PARISA HERNANDEZ Transportation patient to self arrange
== END 2021-03-24 10:23 | disposition home or self-care (01) | DRG 202 ==
LOC: HO.ED 18:03 → HO.EDOVER 18:19 → HO.S3 18:50
PROVIDERS: Physician Assistant; Admitting Provider Internal Medicine; Emergency Provider Emergency Medicine; Visit Provider Internal Medicine
DX: J45.51 Severe persistent asthma with (acute) exacerbation (principal); J96.01 Acute respiratory failure with hypoxia; Z20.822 Contact with and (suspected) exposure to COVID-19; E11.9 Type 2 diabetes mellitus without complications; Z99.81 Dependence on supplemental oxygen; E03.9 Hypothyroidism, unspecified; F17.210 Nicotine dependence, cigarettes, uncomplicated; Z71.6 Tobacco abuse counseling; Z79.890 Hormone replacement therapy; Z79.84 Long term (current) use of oral hypoglycemic drugs; Z79.899 Other long term (current) drug therapy
CPT/HCPCS: 36415; 71045; 80048; 80076; 81003; 82947; 83735; 83880; 84145; 84484; 85025; 87635; 93005; 96365; 96366; 96375; 99285; J1650; J2920; J2930; J3475

== ENCOUNTER 2021-05-22 17:03 | Emergency (ER) | payer MEDICARE, MEDICAID, SELFPAY ==
--- NOTE | ~2021-05-22 | CT_ITS ---
EXAMINATION: CT ABDOMEN AND PELVIS WITHOUT CONTRAST CLINICAL INFORMATION: Right-sided flank pain COMPARISON: CT abdomen and pelvis 09/04/2014, TECHNIQUE: Multidetector volumetric imaging was performed from the superior aspect of the liver through the pubic symphysis. Sagittal and coronal reformatted images were obtained on the technologist's workstation. This CT examination was performed using dose optimization techniques as appropriate, variously including the following: *Automated exposure control *Adjustment of mA and/or kV according to patient size (this includes techniques or standardized protocols for targeted exams where dose is matched to indication/reason for exam; i.e. extremities or head) *Use of iterative reconstruction technique DLP: 268 mGy-cm FINDINGS: LUNG BASES: There is a 8 mm calcified granuloma to left lower lobe. There is an irregular scarlike area at the right lung base. This is associated with an irregular nodule measuring 1 cm. Axial image series 3. This is new since prior study CT lumbar pelvis 09/04/2014 this is slightly larger than the prior CT scan of 01/20/2021. Consider PET/CT or tissue sampling at this time. LIVER, GALLBLADDER, AND BILIARY TREE: The liver is normal in size, shape, and attenuation. No focal hepatic lesion or biliary ductal dilatation is present. The gallbladder is unremarkable with no evidence of radiopaque gallstones, gallbladder wall thickening, or obvious pericholecystic inflammatory changes. PANCREAS: Unremarkable. SPLEEN: Unremarkable. ADRENAL GLANDS: Unremarkable. KIDNEYS AND URETERS: Right kidney: There is a nonobstructive stone in the upper pole measuring 5 mm. There is mild hydronephrosis of the right kidney with distention renal pelvis calyces and right sided hydroureter to the ureterovesical junction. There is no stone currently within the ureter. There are bladder stones. (See below) Left kidney: There is a nonobstructive less than 1 mm stone in the upper pole the left kidney. There is no ureteral calculus. There is no hydronephrosis. BLADDER: There are several small stones in the bladder. These measure about 3 mm in size. Suspect these are from the right collecting system given the presence of the right-sided mild hydronephrosis. GASTROINTESTINAL TRACT: There are numerous diverticula of the sigmoid colon and left colon. There is no diverticulitis. There is no bowel wall thickening /edema. There is no bowel obstruction. There is a moderate to large volume of stool in the colon. The appendix is normal . There is a 1 cm calcification appears associated with small bowel loop left lower quadrant of the abdomen. This may be within the small bowel diverticulum. This is a chronic calcification seen on the prior KUB of 07/16/2018. The stomach is normal. There is no hiatal hernia. ABDOMINAL WALL: No significant hernia is appreciated. LYMPH NODES: Normal. VASCULAR: Scattered vascular wall calcifications of aorta and iliac arteries without aneurysm. PELVIC VISCERA: Prostate measures 4.5 cm transverse. OSSEOUS STRUCTURES: No acute osseous abnormality. There is degenerative spondylosis of the spine. CT/CT abdomen pelvis wo con IMPRESSION: 1. There are nonobstructive renal stones. Mild hydronephrosis of right kidney. Several small stones in the bladder which are likely passed from the right collecting system but no current stone in either ureter. 2. Marked diverticulosis of the sigmoid colon without evidence of diverticulitis. 3. Enlarged prostate. 4. Irregular nodule at the right lung base. This measures 1 cm. Recommend PET/CT or tissue sampling at this time.
--- NOTE | ~2021-05-22 | CT_ITS ---
EXAMINATION: CT CHEST WITH CONTRAST CLINICAL INFORMATION: irregular scarlike area at the right lung base with associated irregular nodule measuring 1 cm, new since prior CT lumbar pelvis 09/04/2014 and slightly larger than the prior CT scan of 01/20/2021. COMPARISON: CT abdomen pelvis 3 hours ago on 05/22/2020 TECHNIQUE: Multidetector volumetric CT imaging of the chest was obtained after the administration of 65 mL of Omnipaque 350 intravenous contrast without immediate adverse reactions. Axial MIP volume rendering provided. Sagittal and coronal reformatted images were obtained. This CT examination was performed using dose optimization techniques as appropriate, variously including the following: *Automated exposure control *Adjustment of mA and/or kV according to patient size (this includes techniques or standardized protocols for targeted exams where dose is matched to indication/reason for exam; i.e. extremities or head) *Use of iterative reconstruction technique DLP: 199 mGy-cm FINDINGS: LUNGS: Severe diffuse changes of emphysema are noted. Polygonal shaped 5 x 3 mm nodular density present in the lingula (5:294). Large 8 mm densely calcified granuloma left lower lobe (5:379). MEDIASTINUM: Some small mediastinal lymph nodes are present but there is no adenopathy. Calcified left hilar lymph nodes present completing the Gohn complex. Calcification present in the coronary cusps. Maximal dimension of the ascending aorta is 3.3 cm. PLEURA: Biapical pleural scarring is present. Calcified pleural plaque present posteriorly in the right lung. Right lower lobe lung mass unchanged when compared to the study of 3 hours ago measuring 1.5 x 1.2 x 1.6 cm. No other lung masses are seen. Some tree-in-bud changes are present at the lung bases. AXILLA: No lymphadenopathy. UPPER ABDOMEN: Unremarkable OSSEOUS STRUCTURES: Unremarkable. CT/CT chest w con IMPRESSION: 1. 1.6 cm pleural-based right lung mass. Recommendations are unchanged when compared to the study from 3 hours ago recommending either biopsy or PET/CT. 2. Diffuse emphysema with some tree-in-bud changes at the lung bases 3. Calcified right pleural plaque
[2021-05-22 17:18] VITALS: BP 160/95; PULSE 110; RESP 18; TEMP 36.9; O2SAT 97; BMI 21.9
--- NOTE | 2021-05-22 20:29 | ECG_ITS ---
Test Reason : ABD PAIN/SOB Blood Pressure : / mmHG Vent. Rate : 070 BPM Atrial Rate : 070 BPM P-R Int : 110 ms QRS Dur : 082 ms QT Int : 356 ms P-R-T Axes : 075 069 076 degrees QTc Int : 384 ms Sinus rhythm with short ME Otherwise normal ECG When compared with ECG of 22-MAR-2021 15:19, Premature atrial complexes are no longer Present Referred By: Stormy Chadwick Electronically Signed By:Anoop Gentile
--- NOTE | 2021-05-22 20:30 | ED.GENADULT ---
HPI - General Adult General Chief complaint: General Medical Stated complaint: back pain Time Seen by Provider: 05/22/21 20:23 Source: patient Mode of arrival: ambulatory Limitations: no limitations History of Present Illness HPI narrative: Patient comes to emergency room complaining of an asthma exacerbation and of right-sided flank pain. Patient states that about a week ago he passed 2 kidney stones. This afternoon, approximately 4-5 hours ago, he started having right-sided flank pain. Patient denies dysuria or hematuria. Patient states that he was not to come to the hospital anyways today because his asthma/COPD has been acting up Related Data Home Medications Medication Instructions Recorded Confirmed albuterol sulfate 90 mcg INHALATION DAILY 09/06/20 03/22/21 metformin 500 mg PO DAILY 09/28/20 03/22/21 levothyroxine 112 mcg PO DAILY@0600 12/01/20 03/22/21 omeprazole 20 mg PO DAILY 12/01/20 03/22/21 Previous Rx's Medication Instructions Recorded prednisone 10 mg tablet 10 mg PO DAILY 30 Days #30 tab 03/07/21 dextromethorphan-guaifenesin 10 ml PO Q4-8H PRN #118 ml 03/24/21 [Robitussin Cough-Chest Beau DM] prednisone 40 mg PO DAILY #8 tab 03/24/21 albuterol sulfate 1.25 mg INHALATION Q4-6H PRN #90 ml 05/23/21 albuterol sulfate [Ventolin HFA] 2 puff INHALATION Q4-6H PRN #8.5 g 05/23/21 azithromycin 250 mg PO DAILY #6 tab 05/23/21 prednisone 50 mg PO DAILY #4 tab 05/23/21 Allergies Allergy/AdvReac Type Severity Reaction Status Date / Time shellfish derived Allergy Severe ANAPHYLAXIS Verified 05/22/21 17:18 [SHELLFISH DERIVED] pollen extracts [POLLEN] Allergy Intermediate RUNNING Verified 05/22/21 17:18 NOSE, WATERY EYES, SNEEZING varenicline [VARENICLINE] AdvReac Unknown PALPITATION Verified 05/22/21 17:18 S Review of Systems Review of Systems: Constitutional : No Weight loss, No Fever, No Chills, No Night Sweats, No Fatigue, No Malaise ENT/Mouth : No Hearing loss, No Ear Pain, No Nasal Congestion, No Sinus Pain, No Hoarseness, No sore throat, No Rhinorrhea, No Swallowing Difficulty Eyes: No Eye Pain, No Swelling, No Redness, No Foreign Body, No Discharge, No Vision Changes Cardiovascular : No Chest Pain, no orthopnea, no edema, no palpitations Respiratory : Worsening Cough, mild whitish Sputum, complaining Wheezing, No Smoke Exposure, complaining of Dyspnea Gastrointestinal : No Nausea, No Vomiting, No Diarrhea, No Constipation, No abdominal Pain, No Hematochezia, No Melena Genitourinary : Complaining of right-sided flank pain, recently passed 2 kidney stones, No Dysuria, No Urinary Frequency, No Hematuria, No Urinary Incontinence, No Urgency, No Flank Pain, No Urinary Flow Changes, No Hesitancy Musculoskeletal : No joint pain, No Myalgias, No Joint Swelling Skin : No Skin Lesions, No rash Neuro : No Weakness, No Numbness, No Paresthesias, No Loss of Consciousness, No Dizziness, No Headache Psych : No Anxiety/Panic, No Depression, No SI/HI/AH/VH, No Social Issues, Heme/Lymph: No Bruising, No Bleeding,No Lymphadenopathy Endocrine : No Polyuria, No Polydipsia, No Temperature Intolerance [facility] Past Medical History Medical History Asthma Cataract COPD (chronic obstructive pulmonary disease) Diabetes GERD (gastroesophageal reflux disease) Hypertension Hypothyroidism Osteoarthritis Osteoporosis Oxygen dependent Sepsis Ureteral calculi Surgical History History of appendectomy Hx of cataract surgery Social History Social History Household Members: Family Housing: Apartment Do you presently have visiting nurse or other home services: No Alcohol intake: never Cigarette Packs Per Day: 0.5 Cigarettes Per Day: 7 Years Smoked: 50 Second Hand Smoke Exposure: No Advance Directives: Yes Advance Directives on File: Yes Advance Directives Date on File: 12/18/20 service: No Current occupational status: unemployed Physical Exam Vital Signs: Vital Signs: Last Vital Signs Temp 98.5 F 05/22/21 17:18 Pulse 68 05/22/21 22:37 Resp 18 05/22/21 17:18 BP 160/95 H 05/22/21 17:18 Pulse Ox 97 05/22/21 17:18 Body Mass Index 21.9 Appearance: Alert. Oriented X3. In acute pain Eyes: Pupils equal, round and reactive to light. ENT: Pharynx normal. Neck: Normal inspection. Neck supple. No lymph nodes noted. No crepitus CVS: Tachycardic. Pulses normal. Normal S1 and S2 Respiratory: No respiratory distress. Bilateral diffuse wheezing, moderate air movement Abdomen: Soft and nontender. No rigidity. No distention. Patient does have positive CVA tenderness on the right side Skin: Skin warm and dry. Normal skin color. Normal skin turgor. Extremities: No lower extremity edema.No Lacerations. No Rash Neuro: Oriented X 3. No motor deficit. No sensory deficit. Moving all extermities. No slurred speech. Course Course Course Narrative: I discussed the CT scan findings with the patient. Patient states that he is aware that he has something, some kind of nodule in his lung but does not know which side. However, reviewing the patient's previous records, patient is known to have a stable left lower lobe granuloma. However, this time the CT scan shows a 1 cm irregular nodule on the right lung base. At this time, we will go ahead and do a CT scan of the lungs with contrast at this time, patient does not have any more pain in the flank. It is likely that he was passing stones, multiple kidney stones were visualized in the patient's bladder. Was otherwise, patient still remains fairly tight, oxygen saturation is 96% on room air, but he still wheezing quite a bit. Patient receiving another breathing treatment. I discussed the CT scan with the patient, patient will need a PET-CT scan. Patient instructed to follow-up with his primary care physician. Patient will be provided with information to follow up with Hematology/Oncology and Dr. Ellis who is his hand shoe cutter Patient walked around the emergency room, oxygen saturation 93% on room air, patient does not feel short of breath, no chest pain, no dizziness. Medical Decision Making Lab Data Result diagrams: 05/22/21 20:54 05/22/21 20:54 Labs: Lab Results 05/22/21 05/22/21 05/22/21 Range/Units 20:54 20:54 20:54 WBC 11.9 H (4.8-10.8) X10*3/uL RBC 4.52 L (4.60-5.80) X10*6/uL Hgb 11.2 L (14.0-18.0) g/dl Hct 36.0 L (42-52) % MCV 79.6 L (80-98) fL MCH 24.8 L (27.0-33.0) pg MCHC 31.1 (31.0-36.0) g/dl RDW 15.6 (11.0-16.0) % Plt Count 305 (160-400) X10*3/uL MPV 10.5 (9.4-12.4) fL Immature Gran % (Auto) 0.3 (0.0-0.4) % Neut % (Auto) 82.1 H (45-73) % Lymph % (Auto) 9.9 L (20-40) % Gladwin % (Auto) 5.7 (2-11) % Eos % (Auto) 1.8 (0-4) % Baso % (Auto) 0.2 (0-2) % Lymph # (Auto) 1.2 (1.2-4.9) X10*3/uL Gladwin # (Auto) 0.7 (0.1-1.2) X10*3/uL Eos # (Auto) 0.2 (0.0-0.4) X10*3/uL Baso # (Auto) 0.0 (0.0-0.2) X10*3/uL Abs Immat Gran (auto) 0.04 H (0.00-0.03) X10*3/uL Absolute Neuts (auto) 9.8 H (2.0-8.3) X10*3/uL Absolute Nucleated RBC 0.000 (0.0-0.012) X10*3/uL Nucleated RBC % (auto) 0.0 (0.0-0.2) /100WBC Sodium 141 (135-145) mmol/L Potassium 4.0 (3.3-5.1) mmol/L Chloride 105 (96-108) mmol/L Carbon Dioxide 27 (22-29) mmol/L Anion Gap 13 (12-20) BUN 12 (9-16) mg/dL Creatinine 0.78 (0.5-1.4) mg/dL Estim Creat Clear Calc 69.2 Estimated GFR > 60 Random Glucose 121 H (60-115) mg/dL Lactic Acid (0.5-2.0) mmol/L Calcium 8.9 (8.4-10.2) mg/dL Total Bilirubin 0.6 (0.0-1.0) mg/dL Direct Bilirubin 0.2 (0.0-0.5) mg/dL AST 10 (5-37) U/L ALT 6 (0-40) U/L Alkaline Phosphatase 100 (39-117) U/L Troponin I High Sens 3.8 (<3.5-35.0) ng/L Total Protein 6.3 L (6.5-8.0) g/dL Albumin 4.0 (3.5-5.0) g/dL Urine Color Urine Appearance Urine pH (5.0-8.0) Ur Specific Vidor (1.005-1.025) Urine Protein (NEG-TRACE) MG/DL Urine Glucose (UA) (NEG) MG/DL Urine Ketones (NEG) MG/DL Urine Blood (NEG) Urine Nitrite (NEG) Ur Leukocyte Esterase (NEG) Urine RBC (0) /HPF Urine WBC (0-4) /HPF Ur Squamous Epith Cells /LPF Urine Bacteria /LPF Urine Mucus /LPF 05/22/21 05/22/21 Range/Units 20:54 20:54 WBC (4.8-10.8) X10*3/uL RBC (4.60-5.80) X10*6/uL Hgb (14.0-18.0) g/dl Hct (42-52) % MCV (80-98) fL MCH (27.0-33.0) pg MCHC (31.0-36.0) g/dl RDW (11.0-16.0) % Plt Count (160-400) X10*3/uL MPV (9.4-12.4) fL Immature Gran % (Auto) (0.0-0.4) % Neut % (Auto) (45-73) % Lymph % (Auto) (20-40) % Gladwin % (Auto) (2-11) % Eos % (Auto) (0-4) % Baso % (Auto) (0-2) % Lymph # (Auto) (1.2-4.9) X10*3/uL Gladwin # (Auto) (0.1-1.2) X10*3/uL Eos # (Auto) (0.0-0.4) X10*3/uL Baso # (Auto) (0.0-0.2) X10*3/uL Abs Immat Gran (auto) (0.00-0.03) X10*3/uL Absolute Neuts (auto) (2.0-8.3) X10*3/uL Absolute Nucleated RBC (0.0-0.012) X10*3/uL Nucleated RBC % (auto) (0.0-0.2) /100WBC Sodium (135-145) mmol/L Potassium (3.3-5.1) mmol/L Chloride (96-108) mmol/L Carbon Dioxide (22-29) mmol/L Anion Gap (12-20) BUN (9-16) mg/dL Creatinine (0.5-1.4) mg/dL Estim Creat Clear Calc Estimated GFR Random Glucose (60-115) mg/dL Lactic Acid 0.9 (0.5-2.0) mmol/L Calcium (8.4-10.2) mg/dL Total Bilirubin (0.0-1.0) mg/dL Direct Bilirubin (0.0-0.5) mg/dL AST (5-37) U/L ALT (0-40) U/L Alkaline Phosphatase (39-117) U/L Troponin I High Sens (<3.5-35.0) ng/L Total Protein (6.5-8.0) g/dL Albumin (3.5-5.0) g/dL Urine Color YELLOW Urine Appearance CLEAR Urine pH 6.0 (5.0-8.0) Ur Specific Vidor 1.025 (1.005-1.025) Urine Protein NEG (NEG-TRACE) MG/DL Urine Glucose (UA) NEG (NEG) MG/DL Urine Ketones 5 (NEG) MG/DL Urine Blood TRACE (NEG) Urine Nitrite NEG (NEG) Ur Leukocyte Esterase NEG (NEG) Urine RBC 10-14 H (0) /HPF Urine WBC 1-4 (0-4) /HPF Ur Squamous Epith Cells 1+ /LPF Urine Bacteria 1+ /LPF Urine Mucus 1+ /LPF ECG Data Attestation: I personally reviewed and interpreted this ECG as follows: (Rate 70, sinus tachycardia, nonspecific T-wave elevation less than 1 mm in leads 2 3 AVF, V3 through V6, QTC 384, no EKG changes since February 2021) Discharge Plan Discharge Clinical Impression: Acute flank pain Asthma exacerbation Qualifiers: Asthma severity: unspecified severity Patient Disposition: Home, Self-Care Instructions: Flank Pain (ED) Additional Instructions: You have a mass in the right side of your lung. You will likely need PET-CT scan and/or biopsy. Please follow-up with your hand shoe cutter and with Hematology/Oncology. Please follow-up with your primary care physician tomorrow. If you have any worsening or new symptoms, please return to the emergency room or call 911 Prescriptions: New azithromycin 250 mg tablet 250 mg PO DAILY Qty: 6 RF: 0 albuterol sulfate [Ventolin HFA] 90 mcg/actuation HFA aerosol inhaler 2 puff inhalation Q4-6H PRN (Reason: shortness of breath or wheezing) Qty: 8.5 RF: 0 albuterol sulfate 1.25 mg/3 mL solution for nebulization 1.25 mg inhalation Q4-6H PRN (Reason: shortness of breath or wheezing) Qty: 90 RF: 0 prednisone 50 mg tablet 50 mg PO DAILY Qty: 4 RF: 0 No Action metformin 500 mg tablet 500 mg PO DAILY RF: 0 levothyroxine 112 mcg tablet 112 mcg PO DAILY@0600 RF: 0 omeprazole 20 mg capsule,delayed release(DR/EC) 20 mg PO DAILY RF: 0 albuterol sulfate 90 mcg/actuation HFA aerosol inhaler 90 mcg inhalation DAILY RF: 0 prednisone 20 mg tablet 40 mg PO DAILY Qty: 8 RF: 0 Robitussin Cough-Chest Beau DM 5-100 mg/5 mL liquid 10 ml PO Q4-8H PRN (Reason: cough) Qty: 118 RF: 0 prednisone 10 mg tablet 10 mg PO DAILY 30 Days Qty: 30 RF: 6 Referrals: Ene Bean MD [Physician] - 2 days Zane Ellis MD [Physician] - 2 days
[2021-05-22 21:01] LABS: MANUAL DIFF FLAG NO
[2021-05-22 21:02] LABS: Basophils Percent Auto 0.2 % (0-2); Eosinophils Absolute Auto 0.2 X10*3/uL (0.0-0.4); Eosinophils Percent Auto 1.8 % (0-4); Hemoglobin 11.2 g/dl (14.0-18.0); Imm Gran Abs Auto 0.04 X10*3/uL (0.00-0.03); Imm Gran Pct Auto 0.3 % (0.0-0.4); Lymphocytes Absolute Auto 1.2 X10*3/uL (1.2-4.9); Lymphocytes Percent Auto 9.9 % (20-40); Mean Corpuscular HGB Conc 31.1 g/dl (31.0-36.0); Mean Corpuscular Hemoglobin 24.8 pg (27.0-33.0); Mean Corpuscular Volume 79.6 fL (80-98); Mean Platelet Volume 10.5 fL (9.4-12.4); Monocytes Absolute Auto 0.7 X10*3/uL (0.1-1.2); Monocytes Percent Auto 5.7 % (2-11); Neutrophils Absolute Auto 9.8 X10*3/uL (2.0-8.3); Neutrophils Percent Auto 82.1 % (45-73); Platelet Count 305 X10*3/uL (160-400); Red Blood Count 4.52 X10*6/uL (4.60-5.80); Red Cell Distribution Width 15.6 % (11.0-16.0); White Blood Count 11.9 X10*3/uL (4.8-10.8)
[2021-05-22] MEDS: Magnesium Sulfate/H2O 2 GM/50 ML PIGGYBACK IV (21:03)
[2021-05-22] MEDS: methylPREDNISolone Sod Succ 125 MG/2 ML VIAL IVPUSH (21:03)
[2021-05-22] MEDS: ondansetron HCL 4 MG/2 ML VIAL IVPUSH (21:03)
[2021-05-22] MEDS: Ketorolac Tromethamine 30 MG/ML VIAL IVPUSH (21:03)
[2021-05-22] MEDS: 0.9 % Sodium Chloride 1,000 ML 999 ML IVCONT (21:04)
[2021-05-22 21:21] LABS: Lactic Acid 0.9 mmol/L (0.5-2.0)
[2021-05-22 21:25] LABS: Alanine Aminotransferase 6 U/L (0-40); Alkaline Phosphatase 100 U/L (39-117); Anion Gap 13 (12-20); Aspartate Amino Transferase 10 U/L (5-37); Bilirubin Direct 0.2 mg/dL (0.0-0.5); Bilirubin Total 0.6 mg/dL (0.0-1.0); Blood Urea Nitrogen 12 mg/dL (9-16); Calcium 8.9 mg/dL (8.4-10.2); Carbon Dioxide 27 mmol/L (22-29); Chloride 105 mmol/L (96-108); Creatinine Clr Calc Pharmacy 69.2; Estimated Glomerular Filt Rate > 60; Glucose Random 121 mg/dL (60-115); Sodium 141 mmol/L (135-145); Total Protein 6.3 g/dL (6.5-8.0)
[2021-05-22 21:29] LABS: Troponin-I High Sensitivity 3.8 ng/L (<3.5-35.0)
[2021-05-22] MEDS: Albuterol Sulfate (0.083%) 2.5 MG/3 ML VIAL.NEB 10 MG INHALE (22:36)
[2021-05-22 22:37] VITALS: PULSE 68; O2SAT 94
[2021-05-22 23:06] LABS: Glucose Urine UA NEG (NEG); Leukocyte Esterase Urine NEG (NEG); Nitrite Urine NEG (NEG); Specific Gravity - Urine 1.025 (1.005-1.025); Urine Blood TRACE (NEG); Urine Ketones 5 MG/DL (NEG); Urine Protein NEG (NEG-TRACE)
[2021-05-22 23:17] LABS: Appearance Urine CLEAR; Color Urine YELLOW
[2021-05-22 23:18] LABS: Bacteria Urine 1+ /LPF; Squamous Epithelial Cell Urine 1+ /LPF
[2021-05-22 23:19] LABS: Mucus Urine 1+ /LPF
[2021-05-23] MEDS: iohexoL 350 MG/ML 100 ML INFUS..BTL 65 ML IV (00:19)
[2021-05-23] MEDS: Azithromycin 500 MG TABLET PO (00:56)
[2021-05-23 01:39] VITALS: BP 135/86; PULSE 79; RESP 16; TEMP 36.8; O2SAT 97
== END 2021-05-23 01:40 | disposition home or self-care (01) ==
PROVIDERS: Emergency Provider Emergency Medicine
DX: J45.901 Unspecified asthma with (acute) exacerbation (principal); R10.9 Unspecified abdominal pain; R91.1 Solitary pulmonary nodule; E11.9 Type 2 diabetes mellitus without complications; I10 Essential (primary) hypertension; J44.9 Chronic obstructive pulmonary disease, unspecified; Z79.84 Long term (current) use of oral hypoglycemic drugs; Z79.899 Other long term (current) drug therapy; Z87.442 Personal history of urinary calculi; Z99.81 Dependence on supplemental oxygen
CPT/HCPCS: 36415; 51701; 71260; 74176; 80048; 80076; 81001; 83605; 84484; 85025; 87040; 93005; 94640; 94644; 96361; 96365; 96366; 96375; 99284; 99285; J1885; J2405; J2930; J3475; Q9967

== ENCOUNTER → 2021-06-06 13:03 | Outpatient (BNVA) | payer MEDICARE, MEDICAID, SELFPAY | PROVIDERS: PCP Nurse Practitioner Family; Visit Provider Internal Medicine Pulmonary Disease | DX: J44.9 Chronic obstructive pulmonary disease, unspecified (principal) | CPT/HCPCS: 99212 ==

== ENCOUNTER → 2021-07-11 12:54 | Outpatient (BNVA) | payer MEDICARE, MEDICAID, SELFPAY | PROVIDERS: PCP Nurse Practitioner Family; Visit Provider Internal Medicine Pulmonary Disease | DX: J44.9 Chronic obstructive pulmonary disease, unspecified (principal) | CPT/HCPCS: 99212 ==

== ENCOUNTER 2021-07-13 18:24 | Inpatient (IN) | payer MEDICARE, MEDICAID, SELFPAY ==
--- NOTE | ~2021-07-13 | XR_ITS ---
EXAMINATION: XR CHEST CLINICAL INFORMATION: Dyspnea. COMPARISON: Most recent chest CT dated 05/23/2021. TECHNIQUE: Frontal view of the chest was obtained. FINDINGS: Emphysematous changes are redemonstrated within the lung apices. New minimal patchy bilateral airspace opacities. No pleural effusion or pneumothorax. Stable cardiomediastinal silhouette. No acute osseous abnormality. XR/XR chest 1V IMPRESSION: New minimal patchy bilateral airspace opacities. COPD changes are redemonstrated.
--- NOTE | 2021-07-13 18:26 | ECG_ITS ---
Test Reason : DYSPNEA Blood Pressure : / mmHG Vent. Rate : 071 BPM Atrial Rate : 071 BPM P-R Int : 120 ms QRS Dur : 086 ms QT Int : 354 ms P-R-T Axes : 079 064 066 degrees QTc Int : 384 ms Normal sinus rhythm Normal ECG When compared with ECG of 22-MAY-2021 21:08, No significant change was found Referred By: Kajal Peralta Electronically Signed By:YVROSE DOS SANTOS
--- NOTE | 2021-07-13 18:27 | ED.ASTHMA ---
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 Mode of arrival: ambulatory Limitations: no limitations History of Present Illness MD complaint: asthma attack , shortness of breath and wheezing Onset (ago): day(s) (today) Severity: severe and similar to prior Context: none known Associated symptoms: productive cough Asthma History: childhood onset Treatments Prior to Arrival: inhaled bronchodilator and other (on chronic steroids) Related Data Current Asthma Therapy: inhaled bronchodilator and recent oral steroid Home Medications Medication Instructions Recorded Confirmed metformin 500 mg tablet 500 mg PO DAILY 09/28/20 03/22/21 levothyroxine 112 mcg tablet 112 mcg PO DAILY@0600 12/01/20 03/22/21 omeprazole 20 mg capsule,delayed 20 mg PO DAILY 12/01/20 03/22/21 release prednisone 10 mg tablet 10 mg PO DAILY tab 07/11/21 Previous Rx's Medication Instructions Recorded dextromethorphan-guaifenesin 5 10 ml PO Q4-8H PRN #118 ml 03/24/21 mg-100 mg/5 mL oral liquid (Robitussin Cough-Chest Congestion DM) albuterol sulfate 1.25 mg/3 mL 1.25 mg INHALATION Q4-6H PRN #90 ml 05/23/21 solution for nebulization albuterol sulfate 90 mcg/actuation 2 puff INHALATION Q4-6H PRN #8.5 g 05/23/21 aerosol inhaler (Ventolin HFA) azithromycin 250 mg tablet See Rx Instructions PO .COMPLEX 5 07/11/21 Days #6 tab Allergies Allergy/AdvReac Type Severity Reaction Status Date / Time shellfish derived Allergy Severe ANAPHYLAXIS Verified 07/11/21 13:19 [SHELLFISH DERIVED] pollen extracts [POLLEN] Allergy Intermediate RUNNING Verified 07/11/21 13:19 NOSE, WATERY EYES, SNEEZING varenicline [VARENICLINE] AdvReac Unknown PALPITATION Verified 07/11/21 13:19 S Review of Systems Review of Systems: Constitutional : No Fever, No Chills ENT/Mouth : No Hoarseness, No sore throat, No Rhinorrhea Eyes: No Redness, No Discharge, No Vision Changes Cardiovascular : No Chest Pain, positive SOB, positive Dyspnea on Exertion, No Edema Respiratory : positive Cough, pos Sputum, positive Wheezing, Gastrointestinal : No Nausea, No Vomiting, No Diarrhea, No abdominal Pain Genitourinary : No Dysuria, No Hematuria Musculoskeletal : No joint pain, No Myalgias Skin : No rash Neuro : No Weakness, No Numbness, No Headache Psych : No anxiety, depression Heme/Lymph: No Bruising, No Bleeding Endocrine : No Polyuria, No Polydipsia All other systems reviewed and are negative [facility] Past Medical History Attestation statement: The following information was validated with the patient. Medical History Asthma Cataract COPD (chronic obstructive pulmonary disease) Diabetes GERD (gastroesophageal reflux disease) Hypertension Hypothyroidism Osteoarthritis Osteoporosis Oxygen dependent Sepsis Ureteral calculi Surgical History History of appendectomy Hx of cataract surgery Social History Social History Household Members: Family Housing: Apartment Do you presently have visiting nurse or other home services: No Alcohol intake: never Patient Tobacco Use Status: Current everyday Tobacco user Cigarette Packs Per Day: 0.5 Cigarettes Per Day: 7 Years Smoked: 50 Second Hand Smoke Exposure: No Use of substances other than those prescribed or required for medical reasons: No Advance Directives: Yes Advance Directives on File: Yes Advance Directives Date on File: 12/18/20 service: No Current occupational status: unemployed Physical Exam Vital Signs: Vital Signs: Last Vital Signs Temp 98.9 F 07/13/21 18:28 Pulse 91 07/13/21 18:28 Resp 21 H 07/13/21 18:28 BP 125/56 L 07/13/21 18:28 Pulse Ox 89 L 07/13/21 18:28 Body Mass Index 22.4 Appearance: Alert. Oriented X3. Mild acute distress. Eyes: Pupils equal, round and reactive to light. ENT: Pharynx normal. Neck: Normal inspection. Neck supple. CVS: tachycardic heart rate and rhythm. Pulses normal. Respiratory: Mild respiratory distress retractions and tachypnea. Breath sounds diffuse exp wheezes throughout Abdomen: Soft and non-tender. Skin: Skin warm and dry. Normal skin color. Normal skin turgor. Extremities: No lower extremity edema. No calf ttp Neuro: Oriented X 3. No motor deficit. No sensory deficit. Course Course Course Narrative: still on O2 2L NC, RR 24, still tight does not feel well enough to go home MDM - Asthma MDM Narrative Medical decision making narrative: 75 yo male with hx of COPD, pneumonia, bronchitis here with c/o productive cough and shortness of breath - at this time hour long neb, IV steroids, IV magnesium, - labs, CXR, IV rocephin for COPD with productive cough, dispo per results and findings, typically gets admitted when he comes to ED, initial O2 sat 89% on RA and not on home O2 Lab Data Result diagrams: 07/13/21 19:44 07/13/21 18:47 Labs: Lab Results 07/13/21 07/13/21 07/13/21 Range/Units 18:38 18:47 18:47 WBC (4.8-10.8) X10*3/uL RBC (4.60-5.80) X10*6/uL Hgb (14.0-18.0) g/dl Hct (42-52) % MCV (80-98) fL MCH (27.0-33.0) pg MCHC (31.0-36.0) g/dl RDW (11.0-16.0) % Plt Count (160-400) X10*3/uL MPV (9.4-12.4) fL Immature Gran % (Auto) (0.0-0.4) % Neut % (Auto) (45-73) % Lymph % (Auto) (20-40) % Terrell % (Auto) (2-11) % Eos % (Auto) (0-4) % Baso % (Auto) (0-2) % Lymph # (Auto) (1.2-4.9) X10*3/uL Terrell # (Auto) (0.1-1.2) X10*3/uL Eos # (Auto) (0.0-0.4) X10*3/uL Baso # (Auto) (0.0-0.2) X10*3/uL Abs Immat Gran (auto) (0.00-0.03) X10*3/uL Absolute Neuts (auto) (2.0-8.3) X10*3/uL Absolute Nucleated RBC (0.0-0.012) X10*3/uL Nucleated RBC % (auto) (0.0-0.2) /100WBC VBG pH (7.32-7.43) VBG pCO2 mmHg VBG pO2 mmHg VBG HCO3 (22-26) mmol/L VBG O2 Saturation % VBG Base Excess mmol/L Sodium 142 (135-145) mmol/L Potassium 4.5 (3.3-5.1) mmol/L Chloride 109 H (96-108) mmol/L Carbon Dioxide 20 L (22-29) mmol/L Anion Gap 18 (12-20) BUN 11 (9-16) mg/dL Creatinine 0.90 (0.5-1.4) mg/dL Estim Creat Clear Calc 65.1 Estimated GFR > 60 Random Glucose 125 H (60-115) mg/dL Lactic Acid 1.4 (0.5-2.0) mmol/L Calcium 9.0 (8.4-10.2) mg/dL Magnesium 2.2 (1.6-2.6) mg/dL Total Bilirubin 0.5 (0.0-1.0) mg/dL Direct Bilirubin < 0.2 (0.0-0.5) mg/dL AST 17 D (5-37) U/L ALT 9 (0-40) U/L Alkaline Phosphatase 96 (39-117) U/L Troponin I High Sens (<3.5-35.0) ng/L Total Protein 6.7 (6.5-8.0) g/dL Albumin 4.0 (3.5-5.0) g/dL COVID-19 (ELIO) Negative (Negative) COVID-19 Clin Com See Note 07/13/21 07/13/21 07/13/21 Range/Units 18:47 18:48 19:44 WBC 6.5 (4.8-10.8) X10*3/uL RBC 4.41 L (4.60-5.80) X10*6/uL Hgb 11.1 L (14.0-18.0) g/dl Hct 35.9 L (42-52) % MCV 81.4 (80-98) fL MCH 25.2 L (27.0-33.0) pg MCHC 30.9 L (31.0-36.0) g/dl RDW 15.7 (11.0-16.0) % Plt Count 306 (160-400) X10*3/uL MPV 9.5 (9.4-12.4) fL Immature Gran % (Auto) 0.3 (0.0-0.4) % Neut % (Auto) 59.9 (45-73) % Lymph % (Auto) 24.4 (20-40) % Terrell % (Auto) 6.3 (2-11) % Eos % (Auto) 8.8 H (0-4) % Baso % (Auto) 0.3 (0-2) % Lymph # (Auto) 1.6 (1.2-4.9) X10*3/uL Terrell # (Auto) 0.4 (0.1-1.2) X10*3/uL Eos # (Auto) 0.6 H (0.0-0.4) X10*3/uL Baso # (Auto) 0.0 (0.0-0.2) X10*3/uL Abs Immat Gran (auto) 0.02 (0.00-0.03) X10*3/uL Absolute Neuts (auto) 3.9 (2.0-8.3) X10*3/uL Absolute Nucleated RBC 0.000 (0.0-0.012) X10*3/uL Nucleated RBC % (auto) 0.0 (0.0-0.2) /100WBC VBG pH 7.46 H (7.32-7.43) VBG pCO2 30 mmHg VBG pO2 163 mmHg VBG HCO3 21 L (22-26) mmol/L VBG O2 Saturation 100.0 % VBG Base Excess -0.9 mmol/L Sodium (135-145) mmol/L Potassium (3.3-5.1) mmol/L Chloride (96-108) mmol/L Carbon Dioxide (22-29) mmol/L Anion Gap (12-20) BUN (9-16) mg/dL Creatinine (0.5-1.4) mg/dL Estim Creat Clear Calc Estimated GFR Random Glucose (60-115) mg/dL Lactic Acid (0.5-2.0) mmol/L Calcium (8.4-10.2) mg/dL Magnesium (1.6-2.6) mg/dL Total Bilirubin (0.0-1.0) mg/dL Direct Bilirubin (0.0-0.5) mg/dL AST (5-37) U/L ALT (0-40) U/L Alkaline Phosphatase (39-117) U/L Troponin I High Sens < 3.5 (<3.5-35.0) ng/L Total Protein (6.5-8.0) g/dL Albumin (3.5-5.0) g/dL COVID-19 (ELIO) (Negative) COVID-19 Clin Com ECG Data Attestation: I personally reviewed and interpreted this ECG as follows: ECG interpretation date: 07/13/21 ECG interpretation time: 19:33 Interpretation: Rate: 71 Rhythm: NSR Roscoe: normal Normal P waves. Normal JOHAN. Normal QRS complex. ST T wave : no MARIA DEL ROSARIO inverted in aVL qTC: normal prior studies: no acute ischemia The study has been interpreted contemporaneously by me. . Critical Care Time Critical Care Time Critical Care Time: Yes Total Critical Care Time: 45 Attestation: review of records, hour long neb, IV steroids, admission, reassessments I attest to this time spent taking care of the patient Discharge Plan Discharge Clinical Impression: Community acquired pneumonia, COPD (chronic obstructive pulmonary disease) Patient Disposition: Admitted As Inpatient Prescriptions: No Action metformin 500 mg tablet 500 mg PO DAILY RF: 0 levothyroxine 112 mcg tablet 112 mcg PO DAILY@0600 RF: 0 omeprazole 20 mg capsule,delayed release(DR/EC) 20 mg PO DAILY RF: 0 albuterol sulfate [Ventolin HFA] 90 mcg/actuation HFA aerosol inhaler 2 puff inhalation Q4-6H PRN (Reason: shortness of breath or wheezing) Qty: 8.5 RF: 0 albuterol sulfate 1.25 mg/3 mL solution for nebulization 1.25 mg inhalation Q4-6H PRN (Reason: shortness of breath or wheezing) Qty: 90 RF: 0 Robitussin Cough-Chest Beau DM 5-100 mg/5 mL liquid 10 ml PO Q4-8H PRN (Reason: cough) Qty: 118 RF: 0 prednisone 10 mg tablet 10 mg PO DAILY RF: 0 azithromycin 250 mg tablet See Rx Instructions PO .COMPLEX 5 Days Qty: 6 RF: 0
[2021-07-13 18:28] VITALS: BP 125/56; PULSE 91; RESP 21; TEMP 37.2; O2SAT 89; BMI 22.4
[2021-07-13] MEDS: Albuterol Sulfate (0.083%) 2.5 MG/3 ML VIAL.NEB 10 MG INHALE (18:34)
[2021-07-13 18:58] LABS: VBG Base Excess -0.9 mmol/L; VBG HCO3 21 mmol/L (22-26); VBG pCO2 30 mmHg; VBG pH 7.46 (7.32-7.43); VBG pO2 163 mmHg
[2021-07-13 18:58] LABS: Venous Blood Gas Refer to POC result
--- NOTE | 2021-07-13 19:06 | PC.NURSE ---
MULTIPLE ATTEMPTS FOR IV ACCESS AND SECOND SET OF BLOOD CULTURES, FROM PREVIOUS NURSES AND THIS RN.
[2021-07-13 19:16] LABS: Lactic Acid 1.4 mmol/L (0.5-2.0)
[2021-07-13 19:26] LABS: Alanine Aminotransferase 9 U/L (0-40); Alkaline Phosphatase 96 U/L (39-117); Anion Gap 18 (12-20); Aspartate Amino Transferase 17 U/L (5-37); Bilirubin Direct < 0.2 mg/dL (0.0-0.5); Bilirubin Total 0.5 mg/dL (0.0-1.0); Blood Urea Nitrogen 11 mg/dL (9-16); Carbon Dioxide 20 mmol/L (22-29); Chloride 109 mmol/L (96-108); Creatinine Clr Calc Pharmacy 65.1; Estimated Glomerular Filt Rate > 60; Glucose Random 125 mg/dL (60-115); Magnesium 2.2 mg/dL (1.6-2.6); Potassium 4.5 mmol/L (3.3-5.1); Sodium 142 mmol/L (135-145); Total Protein 6.7 g/dL (6.5-8.0); Troponin-I High Sensitivity < 3.5 ng/L (<3.5-35.0)
[2021-07-13 19:34] LABS: COVID-19 Test Negative (Negative)
[2021-07-13 19:51] LABS: Basophils Percent Auto 0.3 % (0-2); Eosinophils Absolute Auto 0.6 X10*3/uL (0.0-0.4); Eosinophils Percent Auto 8.8 % (0-4); Hematocrit 35.9 % (42-52); Hemoglobin 11.1 g/dl (14.0-18.0); Imm Gran Abs Auto 0.02 X10*3/uL (0.00-0.03); Imm Gran Pct Auto 0.3 % (0.0-0.4); Lymphocytes Absolute Auto 1.6 X10*3/uL (1.2-4.9); Lymphocytes Percent Auto 24.4 % (20-40); Mean Corpuscular HGB Conc 30.9 g/dl (31.0-36.0); Mean Corpuscular Hemoglobin 25.2 pg (27.0-33.0); Mean Corpuscular Volume 81.4 fL (80-98); Mean Platelet Volume 9.5 fL (9.4-12.4); Monocytes Absolute Auto 0.4 X10*3/uL (0.1-1.2); Monocytes Percent Auto 6.3 % (2-11); Neutrophils Absolute Auto 3.9 X10*3/uL (2.0-8.3); Neutrophils Percent Auto 59.9 % (45-73); Platelet Count 306 X10*3/uL (160-400); Red Blood Count 4.41 X10*6/uL (4.60-5.80); Red Cell Distribution Width 15.7 % (11.0-16.0); White Blood Count 6.5 X10*3/uL (4.8-10.8)
[2021-07-13 20:00] VITALS: BP 129/62; PULSE 73; RESP 18; O2SAT 99
--- NOTE | 2021-07-13 20:03 | PC.NURSE ---
iv access obtained by pardeep rn, 20g left lower forearm. blood cultures obtained by chan pct. no mag sulfate in the pyxis call placed to pharmacy for restock of medications.
[2021-07-13] MEDS: cefTRIAXone sodium 1 GM in 0.9 % Sodium Chloride 50 ML IV (20:08)
[2021-07-13] MEDS: 0.9 % Sodium Chloride 500 ML IV (20:08)
[2021-07-13] MEDS: methylPREDNISolone Sod Succ 125 MG/2 ML VIAL IVPUSH (20:09)
[2021-07-13 20:14] LABS: MANUAL DIFF FLAG NO
[2021-07-13] MEDS: Azithromycin 500 MG in 0.9 % Sodium Chloride 250 ML 125 MG IV (20:44)
[2021-07-13] MEDS: Magnesium Sulfate/H2O 2 GM/50 ML PIGGYBACK IV (20:44)
[2021-07-13] MEDS: Mirtazapine 7.5 MG TABLET PO (22:44)
[2021-07-13] MEDS: Enoxaparin Sodium 40 MG/0.4 ML SYRINGE SUBCUT (22:45)
--- NOTE | 2021-07-13 22:52 | PC.NURSE ---
PATIENT GETTING UP OUT OF STRETCHER. TAKING OFF MONITOR AND OXYGEN, PATIENT ABLE TO STAND AND AMBULATE TO USE A URINAL WITH SUPERVISION.
[2021-07-13 22:57] VITALS: BP 135/70; PULSE 86; RESP 20; TEMP 36.7; O2SAT 99
[2021-07-14] VITALS (11 sets, daily range): BP systolic 113–141; BP diastolic 58–64; PULSE 57–71; RESP 14–19; TEMP 36–37; O2SAT 94–99
[2021-07-14] MEDS: Levothyroxine Sodium 112 MCG TABLET PO (05:28)
[2021-07-14] MEDS: Omeprazole 20 MG CAPSULE.DR PO (05:29)
--- NOTE | 2021-07-14 05:39 | P.HPHOSP_ITS ---
History of Present Illness Date of Service: 07/13/21 Chief Complaint: Shortness of breath This is a 75-year-old male with past medical history of COPD with frequent admissions on 1 L of oxygen at baseline, diabetes, hypothyroidism, HTN, who presents to the hospital with difficulty breathing. Patient reports that his symptoms started today, he is complaining of cough, increased sputum production, denies any fever but has chills, denies any chest pain, no palpitations, no abdominal pain nausea or vomiting, no diarrhea constipation, no urinary symptoms and no lower extremity edema. He reports that he tried his nebulizer at home with no success and therefore decided to come To the ED. On arrival to the ED patient vitals significant for temp of 98.9?, heart rate of 91, respiratory rate of 71, satting 89% on room air. Labs are significant for WBC count of 6.5, hemoglobin of 11.1, otherwise unremarkable, COVID-19 negative Chest x-ray reveals noon minimal patchy bilateral space opacities, COPD changes are redemonstrated Patient will be admitted for further management Review of Systems Review of Systems: Yes all other systems are reviewed and are negative [facility] Medical History Asthma Cataract COPD (chronic obstructive pulmonary disease) Diabetes GERD (gastroesophageal reflux disease) Hypertension Hypothyroidism Osteoarthritis Osteoporosis Oxygen dependent Sepsis Ureteral calculi Surgical History History of appendectomy Hx of cataract surgery Social History Household Members: Family Housing: Apartment Do you presently have visiting nurse or other home services: No Alcohol intake: never Patient Tobacco Use Status: Current everyday Tobacco user Cigarette Packs Per Day: 0.5 Cigarettes Per Day: 7 Years Smoked: 50 Smoked in Last 30 Days: Yes Patient Interested in Nicotine Replacement: No Patient Given Instructions on How to Stop Smoking: No (pt fell to sleep) Second Hand Smoke Exposure: No Use of substances other than those prescribed or required for medical reasons: No Have you been hit, kicked, punched, or otherwise hurt by someone within the past year? If so, by whom?: No Is there a partner from a previous relationship who is making you feel unsafe now?: No Are you made to feel afraid or neglected: No Advance Directives: Yes Advance Directives on File: Yes Advance Directives Date on File: 12/18/20 Do you have thoughts of harming others: None Do you have a plan to hurt others: No Plan Recently lost weight without trying: No Nutrition Risks: No Nutritional Risk service: No Current occupational status: unemployed Meds Allergies Allergy/AdvReac Type Severity Reaction Status Date / Time shellfish derived Allergy Severe ANAPHYLAXIS Verified 07/11/21 13:19 [SHELLFISH DERIVED] pollen extracts [POLLEN] Allergy Intermediate RUNNING Verified 07/11/21 13:19 NOSE, WATERY EYES, SNEEZING varenicline [VARENICLINE] AdvReac Unknown PALPITATION Verified 07/11/21 13:19 S Active Medications: Current Medications Generic Name Dose Route Start Last Admin Trade Name Freq PRN Reason Stop Dose Admin Acetaminophen 650 mg 07/13/21 22:09 Acetaminophen 325 Mg Tablet PO Q6H PRN Pain, Mild (Pain Scale 1-3) Albuterol Sulfate 2 puff 07/13/21 22:09 Albuterol Sulfate 90 Mcg 8 Gm Inhaler INHALE Q4H PRN shortness of breath or wheezing Albuterol/Ipratropium 3 ml 07/14/21 08:00 Albuterol/Iprat 2.5/0.5mg 3 Ml Ampul.Neb INHALE RQ4H WHILE AWAKE MEHDI Atorvastatin Calcium 80 mg 07/14/21 21:00 Atorvastatin Calcium 80 Mg Tablet PO BEDTIME MEHDI Duloxetine HCl 30 mg 07/13/21 22:09 Duloxetine Hcl 30 Mg Capsule.Dr PO DAILY PRN chronic pain Enoxaparin Sodium 40 mg 07/13/21 23:00 07/13/21 22:45 Enoxaparin Sodium 40 Mg/0.4 Ml Syringe SUBCUT 40 mg Q24H MEHDI Administration Guaifenesin/Dextromethorphan 10 ml 07/13/21 22:18 Guaifenesin Dm 200/20/10 Ml 10 Ml Syrup PO Q4H PRN cough Ceftriaxone Sodium 1 gm/ 50 mls @ 100 mls/hr 07/14/21 20:00 Sodium Chloride IV Q24H MEHDI Azithromycin 500 mg/ Sodium 250 mls @ 125 mls/hr 07/14/21 21:00 Chloride IV Q24H MEHDI Levothyroxine Sodium 112 mcg 07/14/21 06:00 07/14/21 05:28 Levothyroxine Sodium 112 Mcg Tablet PO 112 mcg DAILY@0600 [facility] Administration Methylprednisolone Sodium Succinate 40 mg 07/14/21 08:00 Methylprednisolone Sod Succ 40 Mg/Ml Vial IVPUSH Q12H MEHDI Mirtazapine 7.5 mg 07/13/21 22:09 07/13/21 22:44 Mirtazapine 7.5 Mg Tablet PO 7.5 mg BEDTIME [facility] Administration Non-Formulary Medication 1 tab 07/13/21 22:09 Nabumetone PO BID PRN knee pain Omeprazole 20 mg 07/14/21 06:30 07/14/21 05:29 Omeprazole 20 Mg Capsule. PO 20 mg DAILY@0630 [facility] Administration Ondansetron HCl 4 mg 07/13/21 22:09 Ondansetron Hcl 4 Mg/2 Ml Vial IVPUSH Q8H PRN Nausea and Vomiting Sodium Chloride 3 ml 07/14/21 00:00 07/13/21 22:50 0.9 % Sodium Chloride Flush 3 Ml Syringe IVFLUSH Not Given QSHIFT [facility] Home Medications Medication Instructions Recorded Confirmed Last Taken Type metformin 500 mg tablet 500 mg PO DAILY 09/28/20 07/13/21 03/22/21 History levothyroxine 112 mcg tablet 112 mcg PO DAILY@0600 12/01/20 07/13/21 03/22/21 History omeprazole 20 mg capsule,delayed 20 mg PO DAILY 12/01/20 07/13/21 03/22/21 History release prednisone 10 mg tablet 10 mg PO DAILY tab 07/11/21 07/13/21 Unknown History betamethasone valerate 0.1 % 1 applic TOPICAL BID 07/13/21 07/13/21 Unknown History topical ointment duloxetine 30 mg capsule,delayed 1 cap PO DAILY PRN 07/13/21 07/13/21 Unknown History release mirtazapine 7.5 mg tablet 1 tab PO BEDTIME 07/13/21 07/13/21 Unknown History nabumetone 500 mg tablet 1 tab PO BID PRN 07/13/21 07/13/21 Unknown History simvastatin 80 mg tablet 1 tab PO BEDTIME 07/13/21 07/13/21 Unknown History Physical Exam Vital Signs and Narrative: Vital Signs: Last Vital Signs Temp 96.8 F 07/14/21 03:42 Pulse 71 08/16/21 03:42 Resp 16 07/14/21 03:42 BP 131/62 07/14/21 03:42 Pulse Ox 99 07/14/21 03:42 Body Mass Index 22.4 Const: General: cooperative and no acute distress Orientation/consciousness: patient oriented x3 Eyes: General: appearance normal, both eyes and all related structures Resp: Other: Diminished breath sound Effort & Inspection: normal respiratory effort and able to speak in complete sentences Cardio: Rate: regular rate Rhythm: regular rhythm GI: Palpation (GI): Soft to palpation Auscultation: normal bowel sounds Skin: General skin exam: no rashes or lesions noted Neuro: General: patient oriented x3 Cognition (Neuro): normal cognition Extrem: General: Yes normal to inspection and Yes no pedal edema Results Labs CBC and Chem 7: 07/13/21 19:44 07/13/21 18:47 Labs: Laboratory Results - last 24 hr 07/13/21 07/13/21 07/13/21 18:38 18:47 18:47 MCV MCH MCHC RDW Plt Count MPV Immature Gran % (Auto) Neut % (Auto) Lymph % (Auto) [place] % (Auto) Eos % (Auto) Baso % (Auto) Lymph # (Auto) [place] # (Auto) Eos # (Auto) Baso # (Auto) Abs Immat Gran (auto) Absolute Neuts (auto) Absolute Nucleated RBC Nucleated RBC % (auto) VBG pH VBG pCO2 VBG pO2 VBG HCO3 VBG O2 Saturation VBG Base Excess Anion Gap 18 Estim Creat Clear Calc 65.1 Estimated GFR > 60 Random Glucose 125 H Lactic Acid 1.4 Calcium 9.0 Magnesium 2.2 Total Bilirubin 0.5 Direct Bilirubin < 0.2 AST 17 D ALT 9 Alkaline Phosphatase 96 Troponin I High Sens Total Protein 6.7 Albumin 4.0 COVID-19 (ELIO) Negative COVID-19 Clin Com See Note 07/13/21 07/13/21 07/13/21 18:47 18:48 19:44 MCV 81.4 MCH 25.2 L MCHC 30.9 L RDW 15.7 Plt Count 306 MPV 9.5 Immature Gran % (Auto) 0.3 Neut % (Auto) 59.9 Lymph % (Auto) 24.4 [place] % (Auto) 6.3 Eos % (Auto) 8.8 H Baso % (Auto) 0.3 Lymph # (Auto) 1.6 [place] # (Auto) 0.4 Eos # (Auto) 0.6 H Baso # (Auto) 0.0 Abs Immat Gran (auto) 0.02 Absolute Neuts (auto) 3.9 Absolute Nucleated RBC 0.000 Nucleated RBC % (auto) 0.0 VBG pH 7.46 H VBG pCO2 30 VBG pO2 163 VBG HCO3 21 L VBG O2 Saturation 100.0 VBG Base Excess -0.9 Anion Gap Estim Creat Clear Calc Estimated GFR Random Glucose Lactic Acid Calcium Magnesium Total Bilirubin Direct Bilirubin AST ALT Alkaline Phosphatase Troponin I High Sens < 3.5 Total Protein Albumin COVID-19 (ELIO) COVID-19 Clin Com ECG Interpretation: EKG review shows normal sinus rhythm Imaging Radiologist's Impressions: Impressions Chest X-Ray 07/13/21 18:26 IMPRESSION: New minimal patchy bilateral airspace opacities. COPD changes are redemonstrated. Assessment and Plan (1) Community acquired pneumonia: Qualifiers: Laterality: unspecified laterality Qualified Code(s): J18.9 - Pneumonia, unspecified organism Status: Acute (2) COPD (chronic obstructive pulmonary disease): Qualifiers: COPD type: COPD with acute exacerbation Qualified Code(s): J44.1 - Chronic obstructive pulmonary disease with (acute) exacerbation Status: Acute 75-year-old male with past medical history of COPD presents to the hospital with dyspnea, cough, and increased sputum production # acute on chronic hypoxic respiratory failure - patient on baseline O2 presents to the hospital with oxygen saturation of 89% - currently in leads 2 L of oxygen satting 99% - most like secondary to COPD/pneumonia - will reduce his oxygen to maintain an O2 saturation of 88-90% given his chronic COPD - monitor respiratory status # community-acquired pneumonia - afebrile, no leukocytosis - COVID negative - has x-ray image findings of pneumonia - will start him on IV antibiotic - follow culture # acute COPD exacerbation - dyspnea, increased cough and sputum production - DuoNeb q.i.d. p.r.n. and scheduled - Solu-Medrol 40 IV b.i.d. - 0 2 as required # hypothyroidism - continue levothyroxine # diabetes - hold antihyperglycemics - start low-dose sliding scale insulinDiet - diabetic diet # hypothyroidism - start simvastatin DVT prophylaxis:lovenox Quality Stroke Does the patient have a stroke diagnosis?: No VTE Prior VTE?: No VTE Risk Level:: Medical - moderate - high VTE Device Contraindication: Treatment Not Indicated VTE Drug Contraindication: N/A - Med Ordered
[2021-07-14 05:57] LABS: MANUAL DIFF FLAG NO
[2021-07-14 06:03] LABS: Basophils Percent Auto 0.7 % (0-2); Eosinophils Percent Auto 0.4 % (0-4); Hematocrit 38.3 % (42-52); Hemoglobin 11.2 g/dl (14.0-18.0); Imm Gran Abs Auto 0.01 X10*3/uL (0.00-0.03); Imm Gran Pct Auto 0.4 % (0.0-0.4); Lymphocytes Absolute Auto 0.4 X10*3/uL (1.2-4.9); Lymphocytes Percent Auto 13.3 % (20-40); Mean Corpuscular HGB Conc 29.2 g/dl (31.0-36.0); Mean Corpuscular Hemoglobin 24.4 pg (27.0-33.0); Mean Corpuscular Volume 83.4 fL (80-98); Mean Platelet Volume 10.3 fL (9.4-12.4); Monocytes Percent Auto 1.1 % (2-11); Neutrophils Absolute Auto 2.4 X10*3/uL (2.0-8.3); Neutrophils Percent Auto 84.1 % (45-73); Platelet Count 331 X10*3/uL (160-400); Red Blood Count 4.59 X10*6/uL (4.60-5.80); Red Cell Distribution Width 15.7 % (11.0-16.0); White Blood Count 2.9 X10*3/uL (4.8-10.8)
[2021-07-14 06:34] LABS: Anion Gap 19 (12-20); Blood Urea Nitrogen 12 mg/dL (9-16); Calcium 8.5 mg/dL (8.4-10.2); Carbon Dioxide 20 mmol/L (22-29); Chloride 109 mmol/L (96-108); Creatinine Clr Calc Pharmacy 61.7; Estimated Glomerular Filt Rate > 60; Glucose Random 267 mg/dL (60-115); Potassium 5.7 mmol/L (3.3-5.1); Sodium 142 mmol/L (135-145)
[2021-07-14] MEDS: Albuterol/Iprat 2.5/0.5MG 3 ML AMPUL.NEB INHALE ×4 (07:42→19:45)
[2021-07-14] MEDS: 0.9 % Sodium Chloride Flush 3 ML SYRINGE IVFLUSH ×3 (09:49→20:24)
[2021-07-14] MEDS: methylPREDNISolone Sod Succ 40 MG/ML VIAL IVPUSH ×2 (09:49→19:22)
[2021-07-14] MEDS: Sodium Zirconium Cyclosilicate 10 GM POWD.PACK PO (12:13)
--- NOTE | 2021-07-14 12:50 | HO.PM.IMPN ---
Subjective Subjective Date of Service: 07/14/21 Interval History: the patient was seen and evaluated this morning Laying in bed, feels comfortable Denies any fever, chills or chest pain But complaining of dyspnea on exertion and wheezes No reported other overnight events. Systemic review: No fever, chills or weakness No chest pain, palpitation Shortness of breath and wheezing No abdominal pain, nausea or vomiting No urinary symptoms No any rash or wounds Physical Exam Vital Signs: Vital Signs: Last Vital Signs Temp 97.5 F 07/14/21 12:00 Pulse 59 07/14/21 12:31 Resp 18 07/14/21 12:00 BP 141/64 H 07/14/21 12:00 Pulse Ox 94 07/14/21 12:00 Body Mass Index 22.4 Const: Other: Constitutional : Alert, oriented, not in distress Neck : Normal inspection, Supple Cardiovascular : RRR, S1 S2, no lower extremity edema Respiratory : Decreased bilateral air entry with expiratory wheezes and rhonchi. No crackles. Gastrointestinal: soft, lax, Normal bowel sounds, Non tender Skin : Warm, Dry Neurological : Alert & oriented x3, No focal deficit Objective Data Current Medications Generic Name Dose Route Start Last Admin Trade Name Freq PRN Reason Stop Dose Admin Acetaminophen 650 mg 07/13/21 22:09 Acetaminophen 325 Mg Tablet PO Q6H PRN Pain, Mild (Pain Scale 1-3) Albuterol Sulfate 2 puff 07/13/21 22:09 Albuterol Sulfate 90 Mcg 8 Gm Inhaler INHALE Q4H PRN shortness of breath or wheezing Albuterol/Ipratropium 3 ml 07/14/21 08:00 07/14/21 12:29 Albuterol/Iprat 2.5/0.5mg 3 Ml Ampul.Neb INHALE 3 ml RQ4H WHILE AWAKE MEHDI Administration Atorvastatin Calcium 80 mg 07/14/21 21:00 Atorvastatin Calcium 80 Mg Tablet PO BEDTIME MEHDI Duloxetine HCl 30 mg 07/13/21 22:09 Duloxetine Hcl 30 Mg Capsule.Dr PO DAILY PRN chronic pain Enoxaparin Sodium 40 mg 07/13/21 23:00 07/13/21 22:45 Enoxaparin Sodium 40 Mg/0.4 Ml Syringe SUBCUT 40 mg Q24H MEHDI Administration Guaifenesin/Dextromethorphan 10 ml 07/13/21 22:18 Guaifenesin Dm 200/20/10 Ml 10 Ml Syrup PO Q4H PRN cough Ceftriaxone Sodium 1 gm/ 50 mls @ 100 mls/hr 07/14/21 20:00 Sodium Chloride IV Q24H MEHDI Azithromycin 500 mg/ Sodium 250 mls @ 125 mls/hr 07/14/21 21:00 Chloride IV Q24H MEHDI Levothyroxine Sodium 112 mcg 07/14/21 06:00 07/14/21 05:28 Levothyroxine Sodium 112 Mcg Tablet PO 112 mcg DAILY@0600 MEHDI Administration Methylprednisolone Sodium Succinate 40 mg 07/14/21 08:00 07/14/21 09:49 Methylprednisolone Sod Succ 40 Mg/Ml Vial IVPUSH 40 mg Q12H MEHDI Administration Mirtazapine 7.5 mg 07/13/21 22:09 07/13/21 22:44 Mirtazapine 7.5 Mg Tablet PO 7.5 mg BEDTIME MEHDI Administration Non-Formulary Medication 1 tab 07/13/21 22:09 Nabumetone PO BID PRN knee pain Omeprazole 20 mg 07/14/21 06:30 07/14/21 05:29 Omeprazole 20 Mg Capsule.Dr PO 20 mg DAILY@0630 [facility] Administration Ondansetron HCl 4 mg 07/13/21 22:09 Ondansetron Hcl 4 Mg/2 Ml Vial IVPUSH Q8H PRN Nausea and Vomiting Sodium Chloride 3 ml 07/14/21 00:00 07/14/21 09:49 0.9 % Sodium Chloride Flush 3 Ml Syringe IVFLUSH 3 ml QSHIFT MEHDI Administration Labs CBC & Chem 7: 07/14/21 05:37 07/14/21 05:37 Labs: Laboratory Results - last 24 hr 07/13/21 07/13/21 07/13/21 18:38 18:47 18:47 MCV MCH MCHC RDW Plt Count MPV Immature Gran % (Auto) Neut % (Auto) Lymph % (Auto) [place] % (Auto) Eos % (Auto) Baso % (Auto) Lymph # (Auto) [place] # (Auto) Eos # (Auto) Baso # (Auto) Abs Immat Gran (auto) Absolute Neuts (auto) Absolute Nucleated RBC Nucleated RBC % (auto) VBG pH VBG pCO2 VBG pO2 VBG HCO3 VBG O2 Saturation VBG Base Excess Anion Gap 18 Estim Creat Clear Calc 65.1 Estimated GFR > 60 Random Glucose 125 H Lactic Acid 1.4 Calcium 9.0 Magnesium 2.2 Total Bilirubin 0.5 Direct Bilirubin < 0.2 AST 17 D ALT 9 Alkaline Phosphatase 96 Troponin I High Sens Total Protein 6.7 Albumin 4.0 COVID-19 (ELIO) Negative COVID-19 Clin Com See Note 07/13/21 07/13/21 07/13/21 18:47 18:48 19:44 MCV 81.4 MCH 25.2 L MCHC 30.9 L RDW 15.7 Plt Count 306 MPV 9.5 Immature Gran % (Auto) 0.3 Neut % (Auto) 59.9 Lymph % (Auto) 24.4 [place] % (Auto) 6.3 Eos % (Auto) 8.8 H Baso % (Auto) 0.3 Lymph # (Auto) 1.6 [place] # (Auto) 0.4 Eos # (Auto) 0.6 H Baso # (Auto) 0.0 Abs Immat Gran (auto) 0.02 Absolute Neuts (auto) 3.9 Absolute Nucleated RBC 0.000 Nucleated RBC % (auto) 0.0 VBG pH 7.46 H VBG pCO2 30 VBG pO2 163 VBG HCO3 21 L VBG O2 Saturation 100.0 VBG Base Excess -0.9 Anion Gap Estim Creat Clear Calc Estimated GFR Random Glucose Lactic Acid Calcium Magnesium Total Bilirubin Direct Bilirubin AST ALT Alkaline Phosphatase Troponin I High Sens < 3.5 Total Protein Albumin COVID-19 (ELIO) COVID-19 Clin Com 07/14/21 07/14/21 05:37 05:37 MCV 83.4 MCH 24.4 L MCHC 29.2 L RDW 15.7 Plt Count 331 MPV 10.3 Immature Gran % (Auto) 0.4 Neut % (Auto) 84.1 H Lymph % (Auto) 13.3 L [place] % (Auto) 1.1 L Eos % (Auto) 0.4 Baso % (Auto) 0.7 Lymph # (Auto) 0.4 L [place] # (Auto) 0.0 L Eos # (Auto) 0.0 Baso # (Auto) 0.0 Abs Immat Gran (auto) 0.01 Absolute Neuts (auto) 2.4 Absolute Nucleated RBC 0.000 Nucleated RBC % (auto) 0.0 VBG pH VBG pCO2 VBG pO2 VBG HCO3 VBG O2 Saturation VBG Base Excess Anion Gap 19 Estim Creat Clear Calc 61.7 Estimated GFR > 60 Random Glucose 267 H D Lactic Acid Calcium 8.5 Magnesium Total Bilirubin Direct Bilirubin AST ALT Alkaline Phosphatase Troponin I High Sens Total Protein Albumin COVID-19 (ELIO) COVID-19 Clin Com Assessment and Plan (1) Community acquired pneumonia: Status: Acute (2) COPD (chronic obstructive pulmonary disease): Status: Acute Assessment and Plan: 75-year-old male with past medical history of COPD presents to the hospital with dyspnea, cough, and increased sputum production # acute on chronic hypoxic respiratory failure # community-acquired pneumonia Wean down O2 with goal O2 saturation of 88-90% given his chronic COPD COVID negative x-ray image findings of pneumonia Continue ceftriaxone and azithromycin day 2 Pending culture # acute COPD exacerbation DuoNeb q.i.d. p.r.n. and scheduled Solu-Medrol 40 IV b.i.d. Wean O2 as required # hypothyroidism continue levothyroxine # diabetes hold antihyperglycemics low-dose sliding scale insulinDiet diabetic diet # hypothyroidism start simvastatin DVT prophylaxis:Ideal Implant Quality Stroke Does the patient have a stroke diagnosis?: No VTE Prior VTE?: No VTE Risk Level:: Medical - moderate - high VTE Device Contraindication: Treatment Not Indicated VTE Drug Contraindication: N/A - Med Ordered
[2021-07-14 14:52] LABS: Anion Gap 13 (12-20); Blood Urea Nitrogen 13 mg/dL (9-16); Calcium 8.7 mg/dL (8.4-10.2); Carbon Dioxide 23 mmol/L (22-29); Chloride 107 mmol/L (96-108); Creatinine Clr Calc Pharmacy 72.4; Estimated Glomerular Filt Rate > 60; Glucose Random 181 mg/dL (60-115); Potassium 4.3 mmol/L (3.3-5.1); Sodium 139 mmol/L (135-145)
[2021-07-14] MEDS: cefTRIAXone sodium 1 GM in 0.9 % Sodium Chloride 50 ML IV (19:22)
[2021-07-14] MEDS: Azithromycin 500 MG in 0.9 % Sodium Chloride 250 ML 125 MG IV (20:20)
[2021-07-14] MEDS: Atorvastatin Calcium 80 MG TABLET PO (20:20)
[2021-07-14] MEDS: Mirtazapine 7.5 MG TABLET PO (20:21)
[2021-07-14] MEDS: Enoxaparin Sodium 40 MG/0.4 ML SYRINGE SUBCUT (23:40)
[2021-07-15] VITALS (9 sets, daily range): BP systolic 119–141; BP diastolic 46–67; PULSE 59–77; RESP 14–19; TEMP 36.5–37.1; O2SAT 94–98
[2021-07-15] MEDS: Levothyroxine Sodium 112 MCG TABLET PO (05:56)
[2021-07-15] MEDS: Omeprazole 20 MG CAPSULE.DR PO (05:56)
[2021-07-15 06:02] LABS: Hematocrit 32.4 % (42-52); Mean Corpuscular HGB Conc 30.9 g/dl (31.0-36.0); Mean Corpuscular Hemoglobin 24.9 pg (27.0-33.0); Mean Corpuscular Volume 80.8 fL (80-98); Mean Platelet Volume 10.6 fL (9.4-12.4); Platelet Count 317 X10*3/uL (160-400); Red Blood Count 4.01 X10*6/uL (4.60-5.80); Red Cell Distribution Width 15.5 % (11.0-16.0); White Blood Count 10.6 X10*3/uL (4.8-10.8)
[2021-07-15 06:23] LABS: Anion Gap 11 (12-20); Blood Urea Nitrogen 13 mg/dL (9-16); Calcium 8.1 mg/dL (8.4-10.2); Carbon Dioxide 26 mmol/L (22-29); Chloride 107 mmol/L (96-108); Creatinine Clr Calc Pharmacy 81.4; Estimated Glomerular Filt Rate > 60; Glucose Random 149 mg/dL (60-115); Potassium 4.3 mmol/L (3.3-5.1); Sodium 140 mmol/L (135-145)
[2021-07-15] MEDS: methylPREDNISolone Sod Succ 40 MG/ML VIAL IVPUSH ×2 (07:43→21:55)
[2021-07-15] MEDS: 0.9 % Sodium Chloride Flush 3 ML SYRINGE IVFLUSH ×2 (07:43→15:28)
[2021-07-15] MEDS: Albuterol/Iprat 2.5/0.5MG 3 ML AMPUL.NEB INHALE ×4 (07:58→19:38)
--- NOTE | 2021-07-15 08:31 | P.CDIC_ITS ---
CDI Concurrent Query Service Date: 07/15/21 Documentation Clarification: Please clarify if you are treating a proba ble/suspected/likely or confirmed: Labs; Hyperkalemia Other, please specify if known or undetermined Provider Response: Other Other Diagnosis: Hyperkalemia PLEASE DO NOT DELETE/MODIFY EXISTING CONTENT Additional information is needed in order to code to the highest accuracy and appropriate Severity of Illness (SOI). Please clarify the information noted below in your progress notes and discharge summary. Risk Factors/Clinical Indicators/Treatments Lab findings: potassium 5.7 H CDS: Ethel Medina CCS, CDIS Contact Number: [phone] Please Review the information above and exercise your independent professional judgment in responding to the query. If you concur, pleas document in the PROGRESS NOTES and DISCHARGE SUMMARY. If you do not agree with the query, please document in the query above. THIS QUERY IS PART OF THE PERMANENT MEDICAL RECORD
--- NOTE | 2021-07-15 08:40 | MHC.CM.PN ---
PATIENT LIVES WITH HIS SISTER HCP IS ON FILE AND VERIFIED. PRIMARY HCP HAS . SECONDARY IS COUSIN WHO STILL SERVES HCP AGENT. PATIENT IS AWARE THAT CASE MANAGEMENT CAN ASSIST WITH NEW HCP IF HE WOULD LIKE TO DO SO. PCP IS DR LYLES IN [facility]. [facility] [place]. PATIENT RELIES ON A CANE AND DROVE SELF HERE. HIS PLAN IS TO DRIVE SELF HOME AT DISCHARGE. IMM 07/14 IN CHART.
[2021-07-15] MEDS: guaiFEN/Codeine SF 200/20/10ML 10 ML LIQUID 5 ML PO ×4 (10:27→21:50)
[2021-07-15] MEDS: Benzonatate 100 MG CAPSULE 200 MG PO ×3 (10:27→21:51)
--- NOTE | 2021-07-15 12:11 | P.PNIM_ITS ---
Subjective Subjective Date of Service: 07/15/21 Interval History: the patient was seen and evaluated this morning Laying in bed, feels tired with complains of bouts of coughing Still feeling short of breath and wheezing, using accessory muscles to help with breathing Denies any fever, chills or chest pain But complaining of dyspnea on exertion and wheezes No reported other overnight events. Systemic review: No fever, chills or weakness No chest pain, palpitation Shortness of breath and wheezing No abdominal pain, nausea or vomiting No urinary symptoms No any rash or wounds Physical Exam Vital Signs: Vital Signs: Last Vital Signs Temp 98.7 F 07/15/21 08:00 Pulse 72 07/15/21 12:05 Resp 16 07/15/21 08:00 BP 129/58 L 07/15/21 08:00 Pulse Ox 96 07/15/21 08:00 Body Mass Index 22.4 Const: Other: Constitutional : Alert, oriented, in mild respiratory distress using accessory muscles with bouts of coughing Neck : Normal inspection, Supple Cardiovascular : RRR, S1 S2, no lower extremity edema Respiratory : Decreased bilateral air entry with bilateral extensive expiratory wheezes and rhonchi. No crackles. Gastrointestinal: soft, lax, Normal bowel sounds, Non tender Skin : Warm, Dry Neurological : Alert & oriented x3, No focal deficit Objective Data Current Medications Generic Name Dose Route Start Last Admin Trade Name Freq PRN Reason Stop Dose Admin Acetaminophen 650 mg 07/13/21 22:09 Acetaminophen 325 Mg Tablet PO Q6H PRN Pain, Mild (Pain Scale 1-3) Albuterol Sulfate 2 puff 07/13/21 22:09 Albuterol Sulfate 90 Mcg 8 Gm Inhaler INHALE Q4H PRN shortness of breath or wheezing Albuterol/Ipratropium 3 ml 07/14/21 08:00 07/15/21 12:04 Albuterol/Iprat 2.5/0.5mg 3 Ml Ampul.Neb INHALE 3 ml RQ4H WHILE AWAKE MEHDI Administration Atorvastatin Calcium 80 mg 07/14/21 21:00 07/14/21 20:20 Atorvastatin Calcium 80 Mg Tablet PO 80 mg BEDTIME MEHDI Administration Benzonatate 200 mg 07/15/21 09:50 07/15/21 10:27 Benzonatate 100 Mg Capsule PO 200 mg TID MEHDI Administration Duloxetine HCl 30 mg 07/13/21 22:09 Duloxetine Hcl 30 Mg Capsule. PO DAILY PRN chronic pain Enoxaparin Sodium 40 mg 07/13/21 23:00 07/14/21 23:40 Enoxaparin Sodium 40 Mg/0.4 Ml Syringe SUBCUT 40 mg Q24H MEHDI Administration Guaifenesin/Codeine Phosphate 5 ml 07/15/21 10:00 07/15/21 10:27 Guaifen/Codeine Sf 200/20/10ml 10 Ml Liquid PO 5 ml Q4H MEHDI Administration Guaifenesin/Dextromethorphan 10 ml 07/13/21 22:18 Guaifenesin Dm 200/20/10 Ml 10 Ml Syrup PO Q4H PRN cough Ceftriaxone Sodium 1 gm/ 50 mls @ 100 mls/hr 07/14/21 20:00 07/14/21 20:11 Sodium Chloride IV Infused Q24H MEHDI Infusion Azithromycin 500 mg/ Sodium 250 mls @ 125 mls/hr 07/14/21 21:00 07/14/21 23:01 Chloride IV Infused Q24H MEHDI Infusion Levothyroxine Sodium 112 mcg 07/14/21 06:00 07/15/21 05:56 Levothyroxine Sodium 112 Mcg Tablet PO 112 mcg DAILY@0600 MEHDI Administration Methylprednisolone Sodium Succinate 40 mg 07/14/21 08:00 07/15/21 07:43 Methylprednisolone Sod Succ 40 Mg/Ml Vial IVPUSH 40 mg Q12H MEHDI Administration Mirtazapine 7.5 mg 07/13/21 22:09 07/14/21 20:21 Mirtazapine 7.5 Mg Tablet PO 7.5 mg BEDTIME MEHDI Administration Non-Formulary Medication 1 tab 07/13/21 22:09 Nabumetone PO BID PRN knee pain Omeprazole 20 mg 07/14/21 06:30 07/15/21 05:56 Omeprazole 20 Mg Capsule. PO 20 mg DAILY@0630 MEHDI Administration Ondansetron HCl 4 mg 07/13/21 22:09 Ondansetron Hcl 4 Mg/2 Ml Vial IVPUSH Q8H PRN Nausea and Vomiting Sodium Chloride 3 ml 07/14/21 00:00 07/15/21 07:43 0.9 % Sodium Chloride Flush 3 Ml Syringe IVFLUSH 3 ml QSHIFT MEHDI Administration Labs CBC & Chem 7: 07/15/21 05:43 07/15/21 05:43 Labs: Laboratory Results - last 24 hr 07/14/21 07/15/21 07/15/21 14:09 05:43 05:43 MCV 80.8 MCH 24.9 L MCHC 30.9 L RDW 15.5 Plt Count 317 MPV 10.6 Absolute Nucleated RBC 0.000 Nucleated RBC % (auto) 0.0 Anion Gap 13 11 L Estim Creat Clear Calc 72.4 81.4 Estimated GFR > 60 > 60 Random Glucose 181 H 149 H Calcium 8.7 8.1 L D Microbiology Microbiology Results: Microbiology 07/13/21 18:58 Blood Culture - Preliminary Blood - Venous No growth after 24 hours. 07/13/21 18:47 Blood Culture - Preliminary Blood - Venous No growth after 24 hours. Assessment and Plan (1) Community acquired pneumonia: Status: Acute (2) COPD (chronic obstructive pulmonary disease): Status: Acute (3) Pneumonia: Status: Acute Assessment and Plan: 75-year-old male with past medical history of COPD presents to the hospital with dyspnea, cough, and increased sputum production # acute on chronic hypoxic respiratory failure # community-acquired pneumonia Wean down O2 with goal O2 saturation of 88-90% given his chronic COPD COVID negative x-ray image findings of pneumonia Add cough medication Continue ceftriaxone and azithromycin day 3 Negative culture up to this point # acute COPD exacerbation DuoNeb q.i.d. p.r.n. and scheduled Solu-Medrol 40 IV b.i.d. Wean O2 as required # hyperkalemia Received local tele with good response # hypothyroidism continue levothyroxine # diabetes hold antihyperglycemics low-dose sliding scale insulinDiet diabetic diet # hypothyroidism start simvastatin DVT prophylaxis:Levels Beyond Quality Stroke Does the patient have a stroke diagnosis?: No VTE Prior VTE?: No VTE Risk Level:: Medical - moderate - high VTE Device Contraindication: Treatment Not Indicated VTE Drug Contraindication: N/A - Med Ordered
[2021-07-15] MEDS: Atorvastatin Calcium 80 MG TABLET PO (21:51)
[2021-07-15] MEDS: Mirtazapine 7.5 MG TABLET PO (21:51)
[2021-07-15] MEDS: cefTRIAXone sodium 1 GM in 0.9 % Sodium Chloride 50 ML IV (21:52)
[2021-07-15] MEDS: Enoxaparin Sodium 40 MG/0.4 ML SYRINGE SUBCUT (22:39)
[2021-07-15] MEDS: Azithromycin 500 MG in 0.9 % Sodium Chloride 250 ML 125 MG IV (22:40)
[2021-07-16] VITALS: BP 143/61; PULSE 70; RESP 14; TEMP 36.5; O2SAT 96
[2021-07-16] MEDS: guaiFEN/Codeine SF 200/20/10ML 10 ML LIQUID 5 ML PO ×2 (02:29→06:36)
[2021-07-16 03:54] VITALS: BP 129/60; PULSE 67; RESP 14; TEMP 36.9; O2SAT 95
[2021-07-16] MEDS: Levothyroxine Sodium 112 MCG TABLET PO (06:34)
[2021-07-16] MEDS: Omeprazole 20 MG CAPSULE.DR PO (06:34)
[2021-07-16] MEDS: Benzonatate 100 MG CAPSULE 200 MG PO (07:46)
[2021-07-16] MEDS: methylPREDNISolone Sod Succ 40 MG/ML VIAL IVPUSH (07:46)
[2021-07-16] MEDS: Albuterol/Iprat 2.5/0.5MG 3 ML AMPUL.NEB INHALE ×2 (07:46→11:41)
[2021-07-16 07:47] VITALS: PULSE 84; O2SAT 94
[2021-07-16] MEDS: 0.9 % Sodium Chloride Flush 3 ML SYRINGE IVFLUSH (07:48)
[2021-07-16 08:00] VITALS: BP 144/67; PULSE 64; RESP 15; TEMP 36.3; O2SAT 98
[2021-07-16 11:33] VITALS: BP 126/63; PULSE 77; RESP 17; TEMP 36.3; O2SAT 96
[2021-07-16 11:42] VITALS: PULSE 84; O2SAT 93
--- NOTE | 2021-07-16 12:32 | P.DS_ITS ---
DS: Providers Provider Date of Service: 07/16/21 Date of admission: 07/13/21 22:02 Primary care physician: Luz Mccall NP DS: Diagnosis Discharge Diagnosis (1) Community acquired pneumonia: Status: Acute (2) COPD (chronic obstructive pulmonary disease): Status: Acute (3) Pneumonia: Status: Acute DS: Medications Discharge Medications Home Medications: Home Medications Medication Instructions Recorded Confirmed metformin 500 mg tablet 500 mg PO DAILY 09/28/20 07/13/21 levothyroxine 112 mcg tablet 112 mcg PO DAILY@0600 12/01/20 07/13/21 omeprazole 20 mg capsule,delayed 20 mg PO DAILY 12/01/20 07/13/21 release betamethasone valerate 0.1 % 1 applic TOPICAL BID 07/13/21 07/13/21 topical ointment duloxetine 30 mg capsule,delayed 1 cap PO DAILY PRN 07/13/21 07/13/21 release mirtazapine 7.5 mg tablet 1 tab PO BEDTIME 07/13/21 07/13/21 simvastatin 80 mg tablet 1 tab PO BEDTIME 07/13/21 07/13/21 Previous Rx's Medication Instructions Recorded dextromethorphan-guaifenesin 5 10 ml PO Q4-8H PRN #118 ml 03/24/21 mg-100 mg/5 mL oral liquid (Robitussin Cough-Chest Congestion DM) albuterol sulfate 1.25 mg/3 mL 1.25 mg INHALATION Q4-6H PRN #90 ml 05/23/21 solution for nebulization albuterol sulfate 90 mcg/actuation 2 puff INHALATION Q4-6H PRN #8.5 g 05/23/21 aerosol inhaler (Ventolin HFA) cefuroxime axetil 500 mg tablet 500 mg PO Q12H #10 tab 07/16/21 prednisone 20 mg tablet 40 mg PO DAILY #10 tab 07/16/21 DS: Summary Hospital Course Hospital Course: Patient was admitted for acute on chronic hypoxic respiratory failure secondary to COPD exacerbation and pneumonia. He was given steroids, bronchodilators, ceftriaxone and azithromycin. Cultures were negative. Patient's shortness of breath improved. He is feeling much better will be discharged home on 5 more days of prednisone 40 mg daily and cefuroxime 500 mg b.i.d.. Time Spent with Patient Time attestation: Total time spent providing and/or coordinating discharge services: Discharge coordination time: Greater than 30 minutes Quality: Stroke Does the patient have a stroke diagnosis?: No Physical Exam Vital Signs: Vital Signs: Last Vital Signs Temp 97.4 F 07/16/21 11:33 Pulse 84 07/16/21 11:42 Resp 17 07/16/21 11:33 BP 126/63 07/16/21 11:33 Pulse Ox 96 07/16/21 11:33 Body Mass Index 22.4 General: AO X 3, no acute distress Resp: diminished CVS: S1,S2,RRR GI: soft, non tender, non distended Neuro: motor grossly intact Psych: appropriate affect DS: Data Data Completed and Pending Labs on day of discharge: Preliminary micro results at discharge 07/13/21 18:58 Blood Culture - Preliminary Blood - Venous No growth after 48 hours. 07/13/21 18:47 Blood Culture - Preliminary Blood - Venous No growth after 48 hours. Discharge Plan Discharge Patient Disposition: Home, Self-Care Discharge Diagnosis: pna Referrals: Luz Mccall [employer] [Primary Care Provider] - 1 Week Discharge Medications: New prednisone 20 mg tablet 40 mg PO DAILY Qty: 10 RF: 0 cefuroxime axetil 500 mg tablet 500 mg PO Q12H Qty: 10 RF: 0 Continued metformin 500 mg tablet 500 mg PO DAILY RF: 0 levothyroxine 112 mcg tablet 112 mcg PO DAILY@0600 RF: 0 omeprazole 20 mg capsule,delayed release(DR/EC) 20 mg PO DAILY RF: 0 albuterol sulfate [Ventolin HFA] 90 mcg/actuation HFA aerosol inhaler 2 puff inhalation Q4-6H PRN (Reason: shortness of breath or wheezing) Qty: 8.5 RF: 0 albuterol sulfate 1.25 mg/3 mL solution for nebulization 1.25 mg inhalation Q4-6H PRN (Reason: shortness of breath or wheezing) Qty: 90 RF: 0 betamethasone valerate 0.1 % ointment 1 applic topical BID RF: 0 simvastatin 80 mg tablet 1 tab PO BEDTIME RF: 0 mirtazapine 7.5 mg tablet 1 tab PO BEDTIME RF: 0 duloxetine 30 mg capsule,delayed release(DR/EC) 1 cap PO DAILY PRN (Reason: chronic pain) RF: 0 Robitussin Cough-Chest Beau DM 5-100 mg/5 mL liquid 10 ml PO Q4-8H PRN (Reason: cough) Qty: 118 RF: 0 Discontinued nabumetone 500 mg tablet 1 tab PO BID PRN (Reason: knee pain) RF: 0 prednisone 10 mg tablet 10 mg PO DAILY RF: 0 azithromycin 250 mg tablet See Rx Instructions PO .COMPLEX 5 Days Qty: 6 RF: 0 Discharge Orders: Discharge Order (Routine); Ordered 07/16/21 Ordered By: Ortiz James Diet: advance to usual diet Activity on Discharge: As tolerated Stand Alone Forms: Patient Portal Discharge page Care Plan Goals: recovery Health Concerns: pneumonia, copd Plan of Treatment: prednisone, ceftin Assessment: see above
--- NOTE | 2021-07-16 14:08 | MHC.CM.PN ---
PATIENT IS DISCHARGED HOME - SELF CARE. RN AWARE OF PLAN
== END 2021-07-16 14:45 | disposition home or self-care (01) | DRG 193 ==
LOC: HO.ED 20:02 → HO.EDOVER 22:18 → HO.S3 23:32
PROVIDERS: Student in an Organized Health Care Education/Training Program; Admitting Provider Internal Medicine; Emergency Provider Emergency Medicine; PCP Nurse Practitioner Family; Visit Provider Internal Medicine
DX: J18.9 Pneumonia, unspecified organism (principal); J96.21 Acute and chronic respiratory failure with hypoxia; J44.0 Chronic obstructive pulmonary disease with (acute) lower respiratory infection; J44.1 Chronic obstructive pulmonary disease with (acute) exacerbation; Z99.81 Dependence on supplemental oxygen; K21.9 Gastro-esophageal reflux disease without esophagitis; Z20.822 Contact with and (suspected) exposure to COVID-19; E03.9 Hypothyroidism, unspecified; E11.9 Type 2 diabetes mellitus without complications; E87.5 Hyperkalemia; F17.210 Nicotine dependence, cigarettes, uncomplicated; Z71.6 Tobacco abuse counseling; Z79.84 Long term (current) use of oral hypoglycemic drugs; Z79.890 Hormone replacement therapy; Z79.899 Other long term (current) drug therapy
CPT/HCPCS: 36415; 71045; 80048; 80076; 82803; 83605; 83735; 84484; 85025; 85027; 87040; 87635; 93005; 96361; 96365; 96367; 96375; 99212; 99285; 99291; J0456; J0696; J1650; J2920; J2930; J3475

== ENCOUNTER 2021-08-05 10:39 | Outpatient (REF) | payer MEDICARE, MEDICAID, SELFPAY ==
--- NOTE | ~2021-08-05 | CT_ITS ---
EXAMINATION: CT CHEST WITHOUT CONTRAST CLINICAL INFORMATION: Follow-up pulmonary nodules COMPARISON: Previous chest x-rays most recent June [address] scans recent April 2021 TECHNIQUE: Multidetector volumetric CT imaging of the chest was done. Axial MIP volume rendering provided. Sagittal and coronal reformatted images were obtained. This CT examination was performed using dose optimization techniques as appropriate, variously including the following: *Automated exposure control *Adjustment of mA and/or kV according to patient size (this includes techniques or standardized protocols for targeted exams where dose is matched to indication/reason for exam; i.e. extremities or head) *Use of iterative reconstruction technique DLP: 93 mGy-cm FINDINGS: LUNGS: There is evidence of emphysema. Right: There is right apical pleural and parenchymal scarring and calcification. There are bullous changes seen at the right lung apex. There is evidence of mild bronchial wall thickening and some bronchial soft tissue opacification in the right upper lobe. Peripheral or subpleural superior segment right lower lobe nodule adjacent to the fissure measures 1.4 x 2.1 cm axial image 271 series 4 compared to 1 x 1.3 cm axial image 216 series 5 on prior exam and appears increased in size. This retracts the pleural fissure. There is evidence of airways disease seen in the right middle and right lower lobes with bronchial wall thickening and some bronchial soft tissue opacification. There is an irregularly-shaped spiculated right lower lobe nodule as the diaphragmatic pleural surface. This measures 1.1 cm x 1.5 axial image 488 series 4. This is increased from 1.1 x 1. 0 cm axial image 395 series 5. Left: There is mild left apical pleural thickening. There is a peripheral or subpleural left apical nodule measuring 0.6 x 1.2 cm axial image 63 series 4. This is stable and probably related to pleural and parenchymal scarring. There is bronchiectasis and bronchial wall thickening and soft tissue opacification seen in the left lower lobe and lingula. There is a 7 mm calcified left lower lobe nodule axial image 458 series 4 that is stable. MEDIASTINUM: The heart does not appear enlarged. There is a trace pericardial effusion or thickening. There are no enlarged hilar or mediastinal lymph nodes. Thoracic aorta is upper normal in size. The aorta is heterogeneous attenuation with calcification in the descending thoracic aorta suggestive of calcified thrombus. The esophagus is unremarkable. PLEURA: There is no pleural effusion. No pleural mass or thickening. AXILLA: No lymphadenopathy. UPPER ABDOMEN: There is a small stone in the upper pole of the right kidney. OSSEOUS STRUCTURES: There are degenerative changes of the spine CT/CT chest wo con IMPRESSION: Emphysema. Interval increase in right upper and right lower lobe nodules. The nodules are suspicious for malignancy. Stable biapical pleural parenchymal scarring, right greater than left. Diffuse airways disease with bronchial wall thickening and bronchial soft tissue opacification.
== END 2021-08-05 10:40 | disposition home or self-care (01) ==
LOC: HO.CT 10:39
PROVIDERS: Visit Provider Internal Medicine Pulmonary Disease
DX: R91.8 Other nonspecific abnormal finding of lung field (principal)
CPT/HCPCS: 71250

== ENCOUNTER 2021-08-06 11:42 | Inpatient (IN) | payer MEDICARE, MEDICAID, SELFPAY ==
[2021-08-06] VITALS (10 sets, daily range): BP systolic 115–139; BP diastolic 54–70; PULSE 67–120; RESP 16–36; TEMP 36.2; O2SAT 90–99; BMI 23.6
--- NOTE | ~2021-08-06 | XR_ITS ---
EXAMINATION: XR CHEST CLINICAL INFORMATION: Shortness of breath COMPARISON: CT chest 08/05/2021, chest radiographs 07/13/2021, 03/22/2021 TECHNIQUE: Portable upright AP view of the chest was obtained. FINDINGS: There is hyperinflation/COPD with right apical bullous changes and coarse right apical pleural calcification again seen. The right pulmonary masses noted on CT are not well appreciated on plain film. There is a old calcified granulomata are again seen left lateral base. There is no pneumothorax, airspace consolidation, groundglass opacity, or definite effusion. The heart is normal in size. The vascularity is normal. The hilar and mediastinal contours and visualized bony structures are unremarkable. XR/XR chest 1V IMPRESSION: No acute intrathoracic disease.
--- NOTE | 2021-08-06 11:51 | ECG_ITS ---
Test Reason : DYSPNEA Blood Pressure : / mmHG Vent. Rate : 117 BPM Atrial Rate : 117 BPM P-R Int : 118 ms QRS Dur : 074 ms QT Int : 302 ms P-R-T Axes : 085 073 069 degrees QTc Int : 421 ms Sinus tachycardia with Premature atrial complexes Nonspecific ST abnormality Abnormal ECG When compared with ECG of 13-JUL-2021 19:24, Premature atrial complexes are now Present Vent. rate has increased BY [address] abnormality is now Present Referred By: Dyllan Davis Electronically Signed By:YVROSE DOS SANTOS
[2021-08-06] MEDS: Albuterol Sulfate (0.083%) 2.5 MG/3 ML VIAL.NEB 7.5 MG INHALE (11:58)
[2021-08-06] MEDS: methylPREDNISolone Sod Succ 125 MG/2 ML VIAL IVPUSH (11:59)
[2021-08-06 12:00] LABS: MANUAL DIFF FLAG NO
--- NOTE | 2021-08-06 12:02 | ED.GENADULT ---
HPI - General Adult General Chief complaint: Dyspnea Stated complaint: difficulty breathing Time Seen by Provider: 08/06/21 11:53 Source: patient Mode of arrival: ambulatory Limitations: no limitations History of Present Illness HPI narrative: 75-year-old male who presents emergency department for evaluation of shortness of breath, cough and chest tightness. The patient states he has had a cough which is productive of thick, yellow sputum x1 week. He states he is experiencing intermittent right-sided chest tightness which is [id number] in intensity, sharp and worse with breathing. He is also complaining of shortness of breath and dyspnea on exertion. He states this morning, his shortness of breath was worse than usual therefore he came to the emergency department for evaluation. The patient has a history of COPD with hypoxia and respiratory failure. Patient was last hospitalized on 07/15/2021 until 07/16/2021 with kidney acquired pneumonia, COPD exacerbation with hypoxia. He was treated in the hospital with ceftriaxone and azithromycin and discharged home on a 5 day course of prednisone and a 5 day course of cefuroxime. Related Data Home Medications Medication Instructions Recorded Confirmed metformin 500 mg tablet 500 mg PO DAILY 09/28/20 07/13/21 levothyroxine 112 mcg tablet 112 mcg PO DAILY@0600 12/01/20 07/13/21 omeprazole 20 mg capsule,delayed 20 mg PO DAILY 12/01/20 07/13/21 release betamethasone valerate 0.1 % 1 applic TOPICAL BID 07/13/21 07/13/21 topical ointment duloxetine 30 mg capsule,delayed 1 cap PO DAILY PRN 07/13/21 07/13/21 release mirtazapine 7.5 mg tablet 1 tab PO BEDTIME 07/13/21 07/13/21 simvastatin 80 mg tablet 1 tab PO BEDTIME 07/13/21 07/13/21 Previous Rx's Medication Instructions Recorded dextromethorphan-guaifenesin 5 10 ml PO Q4-8H PRN #118 ml 03/24/21 mg-100 mg/5 mL oral liquid (Robitussin Cough-Chest Congestion DM) albuterol sulfate 1.25 mg/3 mL 1.25 mg INHALATION Q4-6H PRN #90 ml 05/23/21 solution for nebulization albuterol sulfate 90 mcg/actuation 2 puff INHALATION Q4-6H PRN #8.5 g 05/23/21 aerosol inhaler (Ventolin HFA) cefuroxime axetil 500 mg tablet 500 mg PO Q12H #10 tab 07/16/21 prednisone 20 mg tablet 40 mg PO DAILY #10 tab 07/16/21 Allergies Allergy/AdvReac Type Severity Reaction Status Date / Time shellfish derived Allergy Severe ANAPHYLAXIS Verified 07/11/21 13:19 [SHELLFISH DERIVED] pollen extracts [POLLEN] Allergy Intermediate RUNNING Verified 07/11/21 13:19 NOSE, WATERY EYES, SNEEZING varenicline [VARENICLINE] AdvReac Unknown PALPITATION Verified 07/11/21 13:19 S Review of Systems Review of Systems: Yes all other systems are reviewed and are negative [facility] Past Medical History Medical History Asthma Cataract COPD (chronic obstructive pulmonary disease) Diabetes GERD (gastroesophageal reflux disease) Hypertension Hypothyroidism Osteoarthritis Osteoporosis Oxygen dependent Sepsis Ureteral calculi Surgical History History of appendectomy Hx of cataract surgery Social History Social History Household Members: Family Housing: Apartment Do you presently have visiting nurse or other home services: No Alcohol intake: never Patient Tobacco Use Status: Current everyday Tobacco user Cigarette Packs Per Day: 0.5 Cigarettes Per Day: 7 Years Smoked: 50 Smoked in Last 30 Days: Yes Second Hand Smoke Exposure: No Use of substances other than those prescribed or required for medical reasons: No Advance Directives: Yes Advance Directives on File: Yes Advance Directives Date on File: 12/18/20 service: No Current occupational status: unemployed Physical Exam Vital Signs: Vital Signs: Last Vital Signs Pulse 78 08/06/21 13:19 Resp 20 08/06/21 13:19 BP 139/70 08/06/21 13:19 Pulse Ox 91 L 08/06/21 13:19 Oxygen Flow Rate 6 08/06/21 12:02 Body Mass Index 23.6 Const: Other: Awake, alert, male, very thin using accessory muscles to breathe, answers all questions appropriately but in short sentences secondary to shortness of breath, very pleasant and cooperative. HENMT: Head: Yes normal to inspection, Yes normocephalic and Yes atraumatic Ears: external ears normal General nose exam: Normal external nose present Face and sinus: Yes normal facial exam Mouth: Normal oral and palatal mucosa present Throat: Yes posterior oropharynx normal Eyes: General: appearance normal, both eyes and all related structures Pupils: Equal, round and reactive pupils present Neck: Neck: Yes normal visual inspection, Yes no lymphadenopathy, Yes trachea midline and Yes supple Chest: Chest palpation & inspection: normal inspection of the chest and tenderness (Moderate right-sided chest wall tenderness) Resp: Effort & Inspection: abnormal respiratory pattern (Using accessory muscles to breathe) and tachypneic Auscultation: rhonchi (At bases) and wheezes (Diffuse, expiratory and inspiratory) Cardio: Rate: tachycardic Rhythm: abnormal rhythm Heart sounds: S1 normal heart sound present, S2 normal heart sound present and no murmurs GI: Inspection: Yes normal to inspection Palpation (GI): Soft to palpation, nontender and no guarding Auscultation: normal bowel sounds : General: Yes no CVA tenderness Back/Spine/Pelvis: Back: no CVA tenderness Skin: General skin exam: no rashes or lesions noted Neuro: Cranial nerves: Yes CN's II-XII intact bilaterally and Yes Equal, round and reactive pupils present Cognition (Neuro): normal cognition Motor exam (neuro): 5/5 motor strength present throughout Extrem: General: Yes normal to inspection Psych: Appearance: grossly normal Speech and movement: Normal speech and movement present Affect: normal affect Attitude: cooperative Thought process: Normal thought process present Thought content: Normal thought content present Course Course Course Narrative: 75-year-old male with history of COPD with hypoxia and respiratory failure who presents emergency department for evaluation of a productive cough x1 week and shortness of breath which is gotten progressively worse. He states that this morning when he woke up at 7:00 a.m. had difficulty breathing therefore came to the emergency department for evaluation. Vital signs revealed an O2 saturation of 91% on room air. Patient was tachypneic with a respiratory rate of 30 and tachycardic with a pulse of 112. The patient was using accessory muscles to breathe and was talking in short sentences. His lung exam revealed diffuse wheezing. I ordered a laboratory evaluation, chest x-ray one view, COVID-19 test (the patient is not vaccinated), EKG. Patient will be treated with an hour long albuterol nebulizer 7.5 mg and Solu-Medrol 125 mg IV. 1211: EKG done at 11:56 a.m. revealed a sinus tachycardia with PACs with a rate of 117, no evidence ischemia or myocardial injury. 1333: The patient's laboratory evaluation revealed an unremarkable CBC and BMP. Patient's troponin was detectable at 3.6 but not elevated, BNP was below detectable limits. Chest x-ray revealed no acute findings. Patient's COVID-19 was negative. Patient's presentation is consistent with an asthma exacerbation. The patient did get some improvement with the hour long nebulizer however on re-evaluation he still has significant wheezing and he does not feel like he is improved enough to go home. He is complaining of chest pain which I believe is secondary to his asthma exacerbation and he was given Tylenol 975 mg orally. He was also ordered to get a DuoNeb nebulizer pain. I will discuss the patient's presentation with the covering hospitalist. 1347: I did discuss the patient's presentation with the covering hospitalist, Dr. Clemente. The patient will be admitted to the the [facility] floor for further management. Medical Decision Making Lab Data Result diagrams: 08/06/21 11:55 08/06/21 11:55 Labs: Lab Results 08/06/21 08/06/21 08/06/21 Range/Units 11:55 11:55 11:55 WBC 8.9 (4.8-10.8) X10*3/uL RBC 4.95 D (4.60-5.80) X10*6/uL Hgb 12.2 L D (14.0-18.0) g/dl Hct 40.5 L D (42-52) % MCV 81.8 (80-98) fL MCH 24.6 L (27.0-33.0) pg MCHC 30.1 L (31.0-36.0) g/dl RDW 15.7 (11.0-16.0) % Plt Count 400 D (160-400) X10*3/uL MPV 9.7 (9.4-12.4) fL Immature Gran % (Auto) 0.2 (0.0-0.4) % Neut % (Auto) 66.1 (45-73) % Lymph % (Auto) 18.2 L (20-40) % Rowan % (Auto) 6.1 (2-11) % Eos % (Auto) 9.0 H (0-4) % Baso % (Auto) 0.4 (0-2) % Lymph # (Auto) 1.6 (1.2-4.9) X10*3/uL Rowan # (Auto) 0.5 (0.1-1.2) X10*3/uL Eos # (Auto) 0.8 H (0.0-0.4) X10*3/uL Baso # (Auto) 0.0 (0.0-0.2) X10*3/uL Abs Immat Gran (auto) 0.02 (0.00-0.03) X10*3/uL Absolute Neuts (auto) 5.9 (2.0-8.3) X10*3/uL Absolute Nucleated RBC 0.000 (0.0-0.012) X10*3/uL Nucleated RBC % (auto) 0.0 (0.0-0.2) /100WBC Sodium 141 (135-145) mmol/L Potassium 4.4 (3.3-5.1) mmol/L Chloride 105 (96-108) mmol/L Carbon Dioxide 24 (22-29) mmol/L Anion Gap 16 (12-20) BUN 9 (9-16) mg/dL Creatinine 0.88 (0.5-1.4) mg/dL Estim Creat Clear Calc 57.7 Estimated GFR > 60 Random Glucose 140 H (60-115) mg/dL Calcium 9.0 D (8.4-10.2) mg/dL Troponin I High Sens 3.6 (<3.5-35.0) ng/L B-Natriuretic Peptide < 10 (<100) pg/mL COVID-19 (ELIO) (Negative) COVID-19 Clin Com 08/06/21 Range/Units 12:12 WBC (4.8-10.8) X10*3/uL RBC (4.60-5.80) X10*6/uL Hgb (14.0-18.0) g/dl Hct (42-52) % MCV (80-98) fL MCH (27.0-33.0) pg MCHC (31.0-36.0) g/dl RDW (11.0-16.0) % Plt Count (160-400) X10*3/uL MPV (9.4-12.4) fL Immature Gran % (Auto) (0.0-0.4) % Neut % (Auto) (45-73) % Lymph % (Auto) (20-40) % Rowan % (Auto) (2-11) % Eos % (Auto) (0-4) % Baso % (Auto) (0-2) % Lymph # (Auto) (1.2-4.9) X10*3/uL Rowan # (Auto) (0.1-1.2) X10*3/uL Eos # (Auto) (0.0-0.4) X10*3/uL Baso # (Auto) (0.0-0.2) X10*3/uL Abs Immat Gran (auto) (0.00-0.03) X10*3/uL Absolute Neuts (auto) (2.0-8.3) X10*3/uL Absolute Nucleated RBC (0.0-0.012) X10*3/uL Nucleated RBC % (auto) (0.0-0.2) /100WBC Sodium (135-145) mmol/L Potassium (3.3-5.1) mmol/L Chloride (96-108) mmol/L Carbon Dioxide (22-29) mmol/L Anion Gap (12-20) BUN (9-16) mg/dL Creatinine (0.5-1.4) mg/dL Estim Creat Clear Calc Estimated GFR Random Glucose (60-115) mg/dL Calcium (8.4-10.2) mg/dL Troponin I High Sens (<3.5-35.0) ng/L B-Natriuretic Peptide (<100) pg/mL COVID-19 (ELIO) Negative (Negative) COVID-19 Clin Com See Note ECG Data Attestation: I personally reviewed and interpreted this ECG as follows: Interpretation: 1156: Sinus tachycardia with PACs with a rate of 117, normal [place] interval, QRS duration and QTC interval, no ST segment elevation, no ST segment depression, except for the tachycardia and PACs this is a normal EKG. Discharge Plan Discharge Patient Disposition: Admitted As Inpatient
[2021-08-06 12:03] LABS: Basophils Percent Auto 0.4 % (0-2); Eosinophils Absolute Auto 0.8 X10*3/uL (0.0-0.4); Hematocrit 40.5 % (42-52); Hemoglobin 12.2 g/dl (14.0-18.0); Imm Gran Abs Auto 0.02 X10*3/uL (0.00-0.03); Imm Gran Pct Auto 0.2 % (0.0-0.4); Lymphocytes Absolute Auto 1.6 X10*3/uL (1.2-4.9); Lymphocytes Percent Auto 18.2 % (20-40); Mean Corpuscular HGB Conc 30.1 g/dl (31.0-36.0); Mean Corpuscular Hemoglobin 24.6 pg (27.0-33.0); Mean Corpuscular Volume 81.8 fL (80-98); Mean Platelet Volume 9.7 fL (9.4-12.4); Monocytes Absolute Auto 0.5 X10*3/uL (0.1-1.2); Monocytes Percent Auto 6.1 % (2-11); Neutrophils Absolute Auto 5.9 X10*3/uL (2.0-8.3); Neutrophils Percent Auto 66.1 % (45-73); Platelet Count 400 X10*3/uL (160-400); Red Blood Count 4.95 X10*6/uL (4.60-5.80); Red Cell Distribution Width 15.7 % (11.0-16.0); White Blood Count 8.9 X10*3/uL (4.8-10.8)
[2021-08-06 12:15] LABS: Anion Gap 16 (12-20); Blood Urea Nitrogen 9 mg/dL (9-16); Carbon Dioxide 24 mmol/L (22-29); Chloride 105 mmol/L (96-108); Creatinine Clr Calc Pharmacy 57.7; Estimated Glomerular Filt Rate > 60; Glucose Random 140 mg/dL (60-115); Potassium 4.4 mmol/L (3.3-5.1); Sodium 141 mmol/L (135-145)
[2021-08-06 12:20] LABS: B Type Natriuretic Peptide < 10 pg/mL (<100); Troponin-I High Sensitivity 3.6 ng/L (<3.5-35.0)
[2021-08-06 12:40] LABS: COVID-19 Test Negative (Negative); IDNOW Serial# 08D9AD1C
--- NOTE | 2021-08-06 13:29 | PC.NURSE ---
Pt's breathing has improved and is resting comfortably in bed. Pt is no longer tachypneic, HR and spo2 have improved on room air. Pt reassess by attending who has ordered additional neb treatment for persistent wheezing. Pt will ultimately be admitted to the hospital for COPD exacerbation.
[2021-08-06] MEDS: Acetaminophen 325 MG TABLET 975 MG PO (13:37)
--- NOTE | 2021-08-06 14:13 | PM.IMHP ---
History of Present Illness Date of Service: 08/06/21 Chief Complaint: Shortness of breath, wheezing A 75 years old male with PMH of asthma, COPD, diabetes among others who presented to the hospital complaining of worsening shortness of breath and wheezing for the last 2 days [employer]. The patient reports that he started to feel winded around 3 days ago and tried to use his home medications and inhalers over the last 2 days with no improvement.? He tried his nebulizer with no improvement in the symptoms yesterday and early this morning. He denies any fever, chills, chest pain, palpitation, nausea or vomiting or urinary symptoms.? His symptoms are associated mainly with dyspnea on exertion and loud wheezes. In ED he was found to be significantly dyspneic and in respiratory distress requiring treatment with steroids and nebulizer with good response.? Admitted for further evaluation and treatment. Review of Systems Review of Systems: No fever, chills or weakness No chest pain, palpitation reporting shortness of breath ,coughing? and wheezes No abdominal pain, nausea or vomiting No urinary symptoms No any rash or wounds PMFSH Medical History Asthma Cataract COPD (chronic obstructive pulmonary disease) Diabetes GERD (gastroesophageal reflux disease) Hypertension Hypothyroidism Osteoarthritis Osteoporosis Oxygen dependent Sepsis Ureteral calculi Surgical History History of appendectomy Hx of cataract surgery Social History Household Members: Family Housing: Apartment Do you presently have visiting nurse or other home services: No Alcohol intake: never Patient Tobacco Use Status: Current everyday Tobacco user Cigarette Packs Per Day: 0.5 Cigarettes Per Day: 7 Years Smoked: 50 Smoked in Last 30 Days: Yes Second Hand Smoke Exposure: No Use of substances other than those prescribed or required for medical reasons: No Advance Directives: Yes Advance Directives on File: Yes Advance Directives Date on File: 12/18/20 service: No Current occupational status: unemployed Meds Allergies Allergy/AdvReac Type Severity Reaction Status Date / Time shellfish derived Allergy Severe ANAPHYLAXIS Verified 07/11/21 13:19 [SHELLFISH DERIVED] pollen extracts [POLLEN] Allergy Intermediate RUNNING Verified 07/11/21 13:19 NOSE, WATERY EYES, SNEEZING varenicline [VARENICLINE] AdvReac Unknown PALPITATION Verified 07/11/21 13:19 S Active Medications: Current Medications Generic Name Dose Route Start Last Admin Trade Name Ru PRN Reason Stop Dose Admin Pharmacy Consult 1 each 08/06/21 14:06 Consult Rx Perform Med Rec MISCELLANE ONCE PRN Consult order Home Medications Medication Instructions Recorded Confirmed Last Taken Type metformin 500 mg tablet 500 mg PO DAILY 09/28/20 07/13/21 03/22/21 History levothyroxine 112 mcg tablet 112 mcg PO DAILY@0600 12/01/20 07/13/21 03/22/21 History omeprazole 20 mg capsule,delayed 20 mg PO DAILY 12/01/20 07/13/21 03/22/21 History release betamethasone valerate 0.1 % 1 applic TOPICAL BID 07/13/21 07/13/21 Unknown History topical ointment duloxetine 30 mg capsule,delayed 1 cap PO DAILY PRN 07/13/21 07/13/21 Unknown History release mirtazapine 7.5 mg tablet 1 tab PO BEDTIME 07/13/21 07/13/21 Unknown History simvastatin 80 mg tablet 1 tab PO BEDTIME 07/13/21 07/13/21 Unknown History Physical Exam Vital Signs and Narrative: Vital Signs: Last Vital Signs Pulse 78 08/06/21 13:19 Resp 20 08/06/21 13:19 BP 139/70 08/06/21 13:19 Pulse Ox 91 L 08/06/21 13:19 Oxygen Flow Rate 6 08/06/21 12:02 Body Mass Index 23.6 Const: Other: Constitutional : Alert, oriented, in respiratory distress with usage of accessory muscles and tachypnea Neck : Normal inspection, Supple Cardiovascular : RRR, S1 S2, no lower extremity edema Respiratory : decrease bilateral air entry,? no crackles, bilateral biphasic wheezes with rhonchi Gastrointestinal:? soft, lax, Normal bowel sounds, Non tender Skin : Warm/Dry, No rash Neurological : Alert & oriented x3, No focal deficit Results Labs CBC and Chem 7: 08/06/21 11:55 08/06/21 11:55 Labs: Laboratory Results - last 24 hr 08/06/21 08/06/21 08/06/21 11:55 11:55 11:55 MCV 81.8 MCH 24.6 L MCHC 30.1 L RDW 15.7 Plt Count 400 D MPV 9.7 Immature Gran % (Auto) 0.2 Neut % (Auto) 66.1 Lymph % (Auto) 18.2 L Hyde % (Auto) 6.1 Eos % (Auto) 9.0 H Baso % (Auto) 0.4 Lymph # (Auto) 1.6 [place] # (Auto) 0.5 Eos # (Auto) 0.8 H Baso # (Auto) 0.0 Abs Immat Gran (auto) 0.02 Absolute Neuts (auto) 5.9 Absolute Nucleated RBC 0.000 Nucleated RBC % (auto) 0.0 Anion Gap 16 Estim Creat Clear Calc 57.7 Estimated GFR > 60 Random Glucose 140 H Calcium 9.0 D Troponin I High Sens 3.6 B-Natriuretic Peptide < 10 COVID-19 (ELIO) COVID-19 Clin Com 08/06/21 12:12 MCV MCH MCHC RDW Plt Count MPV Immature Gran % (Auto) Neut % (Auto) Lymph % (Auto) Hyde % (Auto) Eos % (Auto) Baso % (Auto) Lymph # (Auto) Hyde # (Auto) Eos # (Auto) Baso # (Auto) Abs Immat Gran (auto) Absolute Neuts (auto) Absolute Nucleated RBC Nucleated RBC % (auto) Anion Gap Estim Creat Clear Calc Estimated GFR Random Glucose Calcium Troponin I High Sens B-Natriuretic Peptide COVID-19 (ELIO) Negative COVID-19 Clin Com See Note Imaging Radiologist's Impressions: Impressions Chest X-Ray 08/06/21 11:51 IMPRESSION: No acute intrathoracic disease. Assessment and Plan (1) Acute exacerbation of chronic obstructive pulmonary disease: Status: Acute (2) Respiratory distress: Status: Acute A 75 years old male with PMH of asthma, COPD, diabetes among others who presented to the hospital complaining of worsening shortness of breath and wheezing for the last 2 days [employer]. Respiratory distress secondary to COPD exacerbation Start IV steroids Nebulizer ATC and p.r.n. Start azithromycin Oxygen supplement as needed Continue Singulair Diabetes type 2 SSI Diabetic diet GERD Continue omeprazole DVT PPX Lovenox Quality Stroke Does the patient have a stroke diagnosis?: No VTE Prior VTE?: No VTE Risk Level:: Medical - moderate - high VTE Device Contraindication: Treatment Not Indicated VTE Drug Contraindication: N/A - Med Ordered
[2021-08-06] MEDS: Albuterol/Iprat 2.5/0.5MG 3 ML AMPUL.NEB INHALE ×2 (14:21→20:46)
--- NOTE | 2021-08-06 14:59 | PHA.MEDREC ---
Pharmacy Consult ? Medication Reconciliation Pharmacy has completed the medication reconciliation. There no remarkable issues for provider's attention. Yodit Goff, MauricioD
[2021-08-06] MEDS: Azithromycin 500 MG TABLET PO (15:22)
[2021-08-06] MEDS: Benzonatate 100 MG CAPSULE 200 MG PO ×2 (15:22→20:50)
[2021-08-06] MEDS: Enoxaparin Sodium 40 MG/0.4 ML SYRINGE SUBCUT (15:22)
[2021-08-06 16:39] LABS: Appearance Urine HAZY; Color Urine YELLOW; Glucose Urine UA NEG (NEG); Leukocyte Esterase Urine NEG (NEG); Nitrite Urine NEG (NEG); Specific Gravity - Urine 1.025 (1.005-1.025); UACC Culture Trigger NO; Urine Blood TRACE (NEG); Urine Ketones 15 MG/DL (NEG); Urine Protein NEG (NEG-TRACE)
[2021-08-06 16:59] LABS: Bacteria Urine TRACE /LPF; Hyaline Casts Urine 0-2 /LPF; Mucus Urine 3+ /LPF; Squamous Epithelial Cell Urine 2+ /LPF; Urine Talc Crystals TRACE /LPF; WBC Urine 0 /HPF (0-4)
--- NOTE | 2021-08-06 17:32 | MHC.CM.PN ---
CM met with admitted pt with bed assignment pending. Pt is Ethiopian speaking and medical radiation therapist was used for CM interview. Pt lives with S.O./HCP Heidi Piper([phone]). HCP is on file. Pt states he is fully vaccinated with Pfizer, last dose in December. Pt denies using any oxygen at home. Uses a cane and has no services. Pt is independent at home with ADL's. Pt is refusing VNA services at discharge. D/C plan is home without services. Transportation to be arranged by pt. CM to follow for d/c needs.
[2021-08-06 17:53] LABS: Glucose, Whole Blood 281 mg/dL (60-115)
[2021-08-06] MEDS: 0.9 % Sodium Chloride Flush 3 ML SYRINGE IVFLUSH (18:41)
[2021-08-06] MEDS: Insulin Lispro 100 UNIT/ML 3 ML VIAL SUBCUT ×2 (18:46→21:12)
[2021-08-06] MEDS: guaiFEN/Codeine SF 200/20/10ML 10 ML LIQUID 5 ML PO (18:54)
--- NOTE | 2021-08-06 18:59 | PC.NURSE ---
Pt sleeping. He was woken up for dinner. Insulin given before he started eating.
--- NOTE | 2021-08-06 19:24 | PC.NURSE ---
Patient stated she was leaving against medical advice. Provider discussed reasons patient should stay and the consequences of leaving without admission. Patient verbalized she understood and still left despite what provider said.
[2021-08-06] MEDS: methylPREDNISolone Sod Succ 40 MG/ML VIAL IVPUSH (20:51)
[2021-08-06 22:00] LABS: Glucose, Whole Blood 194 mg/dL (60-115)
[2021-08-07] VITALS (11 sets, daily range): BP systolic 127–153; BP diastolic 55–71; PULSE 60–95; RESP 18–20; TEMP 36.2–37; O2SAT 90–96
[2021-08-07] MEDS: 0.9 % Sodium Chloride Flush 3 ML SYRINGE IVFLUSH ×4 (01:05→21:09)
[2021-08-07] MEDS: guaiFEN/Codeine SF 200/20/10ML 10 ML LIQUID 5 ML PO ×5 (01:05→23:30)
[2021-08-07 06:47] LABS: Basophils Percent Auto 0.2 % (0-2); Hematocrit 33.8 % (42-52); Hemoglobin 10.6 g/dl (14.0-18.0); Imm Gran Abs Auto 0.02 X10*3/uL (0.00-0.03); Imm Gran Pct Auto 0.3 % (0.0-0.4); Lymphocytes Absolute Auto 0.4 X10*3/uL (1.2-4.9); Lymphocytes Percent Auto 7.4 % (20-40); MANUAL DIFF FLAG SCAN; Mean Corpuscular HGB Conc 31.4 g/dl (31.0-36.0); Mean Corpuscular Hemoglobin 25.2 pg (27.0-33.0); Mean Corpuscular Volume 80.5 fL (80-98); Mean Platelet Volume 10.4 fL (9.4-12.4); Monocytes Absolute Auto 0.1 X10*3/uL (0.1-1.2); Neutrophils Absolute Auto 5.3 X10*3/uL (2.0-8.3); Neutrophils Percent Auto 91.1 % (45-73); Platelet Count 345 X10*3/uL (160-400); Red Cell Distribution Width 15.4 % (11.0-16.0); SCAN SMEAR FLAG 1; White Blood Count 5.8 X10*3/uL (4.8-10.8)
[2021-08-07 07:11] LABS: SLIDE REVIEW VERIFIED
[2021-08-07 07:13] LABS: Anion Gap 13 (12-20); Blood Urea Nitrogen 16 mg/dL (9-16); Calcium 8.9 mg/dL (8.4-10.2); Carbon Dioxide 26 mmol/L (22-29); Chloride 104 mmol/L (96-108); Creatinine Clr Calc Pharmacy 63.5; Estimated Glomerular Filt Rate > 60; Glucose Random 189 mg/dL (60-115); Potassium 4.8 mmol/L (3.3-5.1); Sodium 138 mmol/L (135-145)
[2021-08-07 07:55] LABS: Glucose, Whole Blood 118 mg/dL (60-115)
[2021-08-07] MEDS: Albuterol/Iprat 2.5/0.5MG 3 ML AMPUL.NEB INHALE ×4 (08:11→20:07)
--- NOTE | 2021-08-07 08:41 | P.CDIC_ITS ---
CDI Concurrent Query Documentation Clarification: PHYSICIAN'S DOCUMENTATION REQUEST Date of Query: 08/07/21 0841 Patient Name: Raudel Finnegan Admit Date: 08/06/21 Dear Doctor, A review of the medical record indicates additional documentation may be needed. Please review below and update the documentation accordingly. Clinical Indicators: Chronic respiratory failure Acute on chronic respiratory failure Other, please specify if known Risk Factors/Clinical Indicators/Treatments ED: oxygen dependent using accessory muscles, tachypnea. H&P: respiratory distress 2nd to COPD exacerbation. If possible, please further clarify the type and acuity of respiratory failure: Type: * respiratory failure * other * Unable to determine Acuity: * Acute * Chronic * Acute on chronic * Unable to determine Use of terms such as suspected, likely, concern for, or probable (associated with a specific diagnosis that is being evaluated, monitored, or treated as if it exists) are acceptable and can be coded in the inpatient setting, when documented at the time of discharge. Thank you, Ethel Medina [CC, CDIS] Extension: [[id number]] Please use your independent medical judgment in providing your response. THIS QUERY IS PART OF THE PERMANENT MEDICAL RECORD Provider Response: Other Other Diagnosis: No chronic respiratory failure
[2021-08-07] MEDS: methylPREDNISolone Sod Succ 40 MG/ML VIAL IVPUSH ×2 (09:01→21:08)
[2021-08-07] MEDS: Benzonatate 100 MG CAPSULE 200 MG PO ×3 (09:01→21:08)
[2021-08-07 11:33] LABS: Glucose, Whole Blood 175 mg/dL (60-115)
[2021-08-07] MEDS: Pregabalin 75 MG CAPSULE PO ×2 (11:33→21:08)
[2021-08-07] MEDS: Insulin Lispro 100 UNIT/ML 3 ML VIAL SUBCUT ×2 (11:33→16:27)
[2021-08-07] MEDS: Omeprazole 20 MG CAPSULE.DR PO (11:33)
--- NOTE | 2021-08-07 11:55 | P.PNIM_ITS ---
Subjective Subjective Date of Service: 08/07/21 Interval History: the patient was seen and evaluated this morning Laying in bed, feels dyspneic with minimal exertion Complaining of shortness of breath and wheezing Denies any fever, chills or chest pain you No reported other overnight events. Review of Systems No fever, chills or weakness No chest pain, palpitation reporting shortness of breath ,coughing? and wheezes No abdominal pain, nausea or vomiting No urinary symptoms No any rash or wounds Physical Exam Vital Signs: Vital Signs: Last Vital Signs Temp 98.2 F 08/07/21 11:13 Pulse 94 08/07/21 11:31 Resp 20 08/07/21 11:13 BP 131/68 08/07/21 11:13 Pulse Ox 95 08/07/21 11:13 Oxygen Flow Rate 6 08/06/21 12:02 Body Mass Index 23.6 Const: Other: Constitutional : Alert, oriented, in respiratory distress with usage of accessory muscles Neck : Normal inspection, Supple Cardiovascular : RRR, S1 S2, no lower extremity edema Respiratory : decrease bilateral air entry,? no crackles, bilateral biphasic wheezes with rhonchi, distressed upon activity Gastrointestinal:? soft, lax, Normal bowel sounds, Non tender Skin : Warm/Dry, No rash Neurological : Alert & oriented x3, No focal deficit Objective Data Active Medications Acetaminophen (Acetaminophen 325 Mg Tablet) 650 mg PO Q6H PRN PRN Reason: Pain, Mild (Pain Scale 1-3) Albuterol Sulfate (Albuterol Sulfate (0.083%) 2.5 Mg/3 Ml Vial.Neb) 2.5 mg INHALE Q3H PRN PRN Reason: Shortness of Breath/Wheezing Albuterol/Ipratropium (Albuterol/Iprat 2.5/0.5mg 3 Ml Ampul.Neb) 3 ml INHALE RQ4H WHILE AWAKE [facility] Last Admin: 08/07/21 11:30 Dose: 3 ml Documented by: CLINTON Azithromycin (Azithromycin 250 Mg Tablet) 250 mg PO Q24H [facility] Benzonatate (Benzonatate 100 Mg Capsule) 200 mg PO TID [facility] Last Admin: 08/07/21 09:01 Dose: 200 mg Documented by: AVELINA Enoxaparin Sodium (Enoxaparin Sodium 40 Mg/0.4 Ml Syringe) 40 mg SUBCUT Q24H [facility] Last Admin: 08/06/21 15:22 Dose: 40 mg Documented by: ILANA Guaifenesin/Codeine Phosphate (Guaifen/Codeine Sf 200/20/10ml 10 Ml Liquid) 5 ml PO Q6H [facility] Last Admin: 08/07/21 11:34 Dose: 5 ml Documented by: AVELINA Insulin Human Lispro (Insulin Lispro 100 Unit/Ml 3 Ml Vial) 0 unit SUBCUT QIDACHS [facility]; Protocol Last Admin: 08/07/21 11:33 Dose: 2 unit Documented by: AVELINA Levothyroxine Sodium (Levothyroxine Sodium 112 Mcg Tablet) 112 mcg PO DAILY@0600 [facility] Methylprednisolone Sodium Succinate (Methylprednisolone Sod Succ 40 Mg/Ml Vial) 40 mg IVPUSH Q12H [facility] Last Admin: 08/07/21 09:01 Dose: 40 mg Documented by: AVELINA Omeprazole (Omeprazole 20 Mg Capsule.) 20 mg PO DAILY@0630 [facility] Last Admin: 08/07/21 11:33 Dose: 20 mg Documented by: AVELINA Ondansetron HCl (Ondansetron Hcl 4 Mg/2 Ml Vial) 4 mg IVPUSH Q8H PRN PRN Reason: Nausea and Vomiting Pharmacy Consult (Consult Rx Perform Med Rec) 1 each MISCELLANE ONCE PRN PRN Reason: Consult order Pregabalin (Pregabalin 75 Mg Capsule) 75 mg PO BID [facility] Last Admin: 08/07/21 11:33 Dose: 75 mg Documented by: AVELINA Sodium Chloride (0.9 % Sodium Chloride Flush 3 Ml Syringe) 3 ml IVFLUSH QSHIFT [facility] Last Admin: 08/07/21 09:01 Dose: 3 ml Documented by: AVELINA Labs CBC & Chem 7: 08/07/21 05:25 08/07/21 05:25 Labs: Laboratory Results - last 24 hr 08/06/21 08/06/21 08/06/21 11:55 11:55 11:55 MCV 81.8 MCH 24.6 L MCHC 30.1 L RDW 15.7 Plt Count 400 D MPV 9.7 Immature Gran % (Auto) 0.2 Neut % (Auto) 66.1 Lymph % (Auto) 18.2 L Emanuel % (Auto) 6.1 Eos % (Auto) 9.0 H Baso % (Auto) 0.4 Lymph # (Auto) 1.6 Emanuel # (Auto) 0.5 Eos # (Auto) 0.8 H Baso # (Auto) 0.0 Abs Immat Gran (auto) 0.02 Absolute Neuts (auto) 5.9 Absolute Nucleated RBC 0.000 Nucleated RBC % (auto) 0.0 Smear Tech's Comments Anion Gap 16 Estim Creat Clear Calc 57.7 Estimated GFR > 60 POC Glucose Random Glucose 140 H Calcium 9.0 D Troponin I High Sens 3.6 B-Natriuretic Peptide < 10 Urine Color Urine Appearance Urine pH Ur Specific [place] Urine Protein Urine Glucose (UA) Urine Ketones Urine Blood Urine Nitrite Ur Leukocyte Esterase Urine RBC Urine WBC Ur Squamous Epith Cells Talc Crystals Urine Bacteria Hyaline Casts Urine Mucus COVID-19 (ELIO) COVID-19 Clin Com 08/06/21 08/06/21 08/06/21 12:12 16:24 17:48 MCV MCH MCHC RDW Plt Count MPV Immature Gran % (Auto) Neut % (Auto) Lymph % (Auto) Emanuel % (Auto) Eos % (Auto) Baso % (Auto) Lymph # (Auto) Emanuel # (Auto) Eos # (Auto) Baso # (Auto) Abs Immat Gran (auto) Absolute Neuts (auto) Absolute Nucleated RBC Nucleated RBC % (auto) Smear Tech's Comments Anion Gap Estim Creat Clear Calc Estimated GFR POC Glucose 281 H Random Glucose Calcium Troponin I High Sens B-Natriuretic Peptide Urine Color YELLOW Urine Appearance HAZY Urine pH 6.0 Ur Specific [place] 1.025 Urine Protein NEG Urine Glucose (UA) NEG Urine Ketones 15 Urine Blood TRACE Urine Nitrite NEG Ur Leukocyte Esterase NEG Urine RBC 5-9 H Urine WBC 0 Ur Squamous Epith Cells 2+ Talc Crystals TRACE Urine Bacteria TRACE Hyaline Casts 0-2 Urine Mucus 3+ COVID-19 (ELIO) Negative COVID-19 Clin Com See Note 08/06/21 08/07/21 08/07/21 20:48 05:25 05:25 MCV 80.5 MCH 25.2 L MCHC 31.4 RDW 15.4 Plt Count 345 MPV 10.4 Immature Gran % (Auto) 0.3 Neut % (Auto) 91.1 H Lymph % (Auto) 7.4 L Emanuel % (Auto) 1.0 L Eos % (Auto) 0.0 Baso % (Auto) 0.2 Lymph # (Auto) 0.4 L Emanuel # (Auto) 0.1 Eos # (Auto) 0.0 Baso # (Auto) 0.0 Abs Immat Gran (auto) 0.02 Absolute Neuts (auto) 5.3 Absolute Nucleated RBC 0.000 Nucleated RBC % (auto) 0.0 Smear Tech's Comments VERIFIED Anion Gap 13 Estim Creat Clear Calc 63.5 Estimated GFR > 60 POC Glucose 194 H Random Glucose 189 H Calcium 8.9 Troponin I High Sens B-Natriuretic Peptide Urine Color Urine Appearance Urine pH Ur Specific [place] Urine Protein Urine Glucose (UA) Urine Ketones Urine Blood Urine Nitrite Ur Leukocyte Esterase Urine RBC Urine WBC Ur Squamous Epith Cells Talc Crystals Urine Bacteria Hyaline Casts Urine Mucus COVID-19 (ELIO) COVID-19 Clin Com 08/07/21 08/07/21 07:37 11:12 MCV MCH MCHC RDW Plt Count MPV Immature Gran % (Auto) Neut % (Auto) Lymph % (Auto) Emanuel % (Auto) Eos % (Auto) Baso % (Auto) Lymph # (Auto) Emanuel # (Auto) Eos # (Auto) Baso # (Auto) Abs Immat Gran (auto) Absolute Neuts (auto) Absolute Nucleated RBC Nucleated RBC % (auto) Smear Tech's Comments Anion Gap Estim Creat Clear Calc Estimated GFR POC Glucose 118 H 175 H Random Glucose Calcium Troponin I High Sens B-Natriuretic Peptide Urine Color Urine Appearance Urine pH Ur Specific [place] Urine Protein Urine Glucose (UA) Urine Ketones Urine Blood Urine Nitrite Ur Leukocyte Esterase Urine RBC Urine WBC Ur Squamous Epith Cells Talc Crystals Urine Bacteria Hyaline Casts Urine Mucus COVID-19 (ELIO) COVID-19 Clin Com Assessment and Plan (1) Respiratory distress: Status: Acute (2) Acute exacerbation of chronic obstructive pulmonary disease: Status: Acute Assessment and Plan: A 75 years old male with PMH of asthma, COPD, diabetes among others who presented to the hospital complaining of worsening shortness of breath and 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 Continue azithromycin Oxygen supplement as needed Continue Singulair Diabetes type 2 SSI Diabetic diet GERD Continue omeprazole DVT PPX Lovenox Quality Stroke Does the patient have a stroke diagnosis?: No VTE Prior VTE?: No VTE Risk Level:: Medical - moderate - high VTE Device Contraindication: Treatment Not Indicated VTE Drug Contraindication: N/A - Med Ordered
[2021-08-07 16:11] LABS: Glucose, Whole Blood 213 mg/dL (60-115)
[2021-08-07] MEDS: Enoxaparin Sodium 40 MG/0.4 ML SYRINGE SUBCUT (16:26)
[2021-08-07] MEDS: Azithromycin 250 MG TABLET PO (16:27)
[2021-08-07 20:28] LABS: Glucose, Whole Blood 122 mg/dL (60-115)
[2021-08-08 04:00] VITALS: BP 137/65; PULSE 65; RESP 18; TEMP 36.9; O2SAT 95
[2021-08-08] MEDS: guaiFEN/Codeine SF 200/20/10ML 10 ML LIQUID 5 ML PO ×2 (05:18→13:48)
[2021-08-08] MEDS: Levothyroxine Sodium 112 MCG TABLET PO (05:18)
[2021-08-08] MEDS: Omeprazole 20 MG CAPSULE.DR PO (05:18)
[2021-08-08 07:36] LABS: Glucose, Whole Blood 196 mg/dL (60-115)
[2021-08-08] MEDS: Albuterol/Iprat 2.5/0.5MG 3 ML AMPUL.NEB INHALE ×2 (07:56→11:05)
[2021-08-08 07:57] VITALS: PULSE 84; O2SAT 95
[2021-08-08 08:00] VITALS: BP 142/60; PULSE 69; RESP 22; TEMP 36.7; O2SAT 96
[2021-08-08] MEDS: Pregabalin 75 MG CAPSULE PO (08:01)
[2021-08-08] MEDS: methylPREDNISolone Sod Succ 40 MG/ML VIAL IVPUSH (08:01)
[2021-08-08] MEDS: Benzonatate 100 MG CAPSULE 200 MG PO ×2 (08:01→13:49)
[2021-08-08] MEDS: Insulin Lispro 100 UNIT/ML 3 ML VIAL SUBCUT (08:01)
[2021-08-08] MEDS: 0.9 % Sodium Chloride Flush 3 ML SYRINGE IVFLUSH (08:01)
[2021-08-08 11:06] VITALS: PULSE 84; O2SAT 95
[2021-08-08 11:20] LABS: Glucose, Whole Blood 136 mg/dL (60-115)
[2021-08-08 11:37] VITALS: BP 135/59; PULSE 66; RESP 20; TEMP 37.1; O2SAT 94
--- NOTE | 2021-08-08 11:50 | PM.DS ---
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 He tried his nebulizer with no improvement in the symptoms yesterday and early this morning. He denies any fever, chills, chest pain, palpitation, nausea or vomiting or urinary symptoms.? His symptoms are associated mainly with dyspnea on exertion and loud wheezes. In ED he was found to be significantly dyspneic and in respiratory distress requiring treatment with steroids and nebulizer with good response.? Admitted for further evaluation and treatment. Hospital course The patient was admitted for treatment of COPD exacerbation and respiratory distress. Treated with IV steroids, nebulizers around the clock and as needed with usage of azithromycin with good response over the course of hospital stay as he was weaned off the oxygen and became able to ambulate on the room air with no reported distress or dyspnea. To be discharged home to finish 5 days of prednisone and azithromycin. to use his home nebulizer regularly for the next few days Time Spent with Patient Time attestation: Total time spent providing and/or coordinating discharge services: Discharge coordination time: Greater than 30 minutes Quality: Stroke Does the patient have a stroke diagnosis?: No Physical Exam Vital Signs: Vital Signs: Last Vital Signs Temp 98.8 F 08/08/21 11:37 Pulse 66 08/08/21 11:37 Resp 20 08/08/21 11:37 BP 135/59 L 08/08/21 11:37 Pulse Ox 94 08/08/21 11:37 Oxygen Flow Rate 6 08/06/21 12:02 Body Mass Index 23.6 Const: Other: Constitutional : Alert, oriented, not in distress Neck : Normal inspection, Supple Cardiovascular : RRR, S1 S2, no lower extremity edema Respiratory : Fair bilateral air entry,? no crackles, bilateral scattered fine wheezes Gastrointestinal:? soft, lax, Normal bowel sounds, Non tender Skin : Warm/Dry, No rash Neurological : Alert & oriented x3, No focal deficit DS: Data Data Completed and Pending Labs on day of discharge: Laboratory Results - last 24 hr 08/07/21 08/07/21 08/08/21 16:04 20:25 07:32 POC Glucose 213 H 122 H 196 H 08/08/21 11:16 POC Glucose 136 H Discharge Plan Discharge Patient Disposition: Home, Self-Care Discharge Diagnosis: COPD exacerbation Referrals: Luz Mccall NP [Primary Care Provider] - 1 Week Discharge Medications: New azithromycin 250 mg Tablet 250 mg PO Q24H 3 Days Qty: 3 RF: 0 prednisone 20 mg tablet 40 mg PO DAILY Qty: 6 RF: 0 Continued metformin 500 mg tablet 500 mg PO DAILY RF: 0 levothyroxine 112 mcg tablet 112 mcg PO DAILY@0600 RF: 0 omeprazole 20 mg capsule,delayed release(DR/EC) 20 mg PO DAILY RF: 0 albuterol sulfate [Ventolin HFA] 90 mcg/actuation HFA aerosol inhaler 2 puff inhalation Q4-6H PRN (Reason: shortness of breath or wheezing) Qty: 8.5 RF: 0 simvastatin 80 mg tablet 80 mg PO BEDTIME RF: 0 mirtazapine 7.5 mg tablet 1 tab PO BEDTIME RF: 0 duloxetine 30 mg capsule,delayed release(DR/EC) 1 cap PO DAILY PRN (Reason: chronic pain) RF: 0 prednisone 10 mg tablet 1 tab PO DAILY RF: 0 ipratropium-albuterol 0.5 mg-3 mg(2.5 mg base)/3 mL solution for nebulization 1 vial inhalation QID PRN (Reason: asthma) RF: 0 nabumetone 500 mg tablet 1 tab PO BID PRN (Reason: knee pain) RF: 0 pregabalin 75 mg capsule 75 mg PO BID RF: 0 multivitamin Tablet 1 tab PO DAILY RF: 0 Discharge Orders: Discharge Order (Routine); Ordered 08/08/21 Ordered By: Nick Clemente Diet: advance to usual diet Activity on Discharge: As tolerated Stand Alone Forms: Patient Portal Discharge page Care Plan Goals: Read below Health Concerns: Read below Plan of Treatment: You were admitted to the hospital for treatment of difficulty breathing and wheezes. Treated with steroids, antibiotic and nebulizers with good response. Assessment: Continue prednisone and azithromycin for 3 more days to use your home nebulizers 4 times a day for the next 3 days Discharge Date/Time: 08/08/21 14:30
[2021-08-08] MEDS: Azithromycin 250 MG TABLET PO (13:48)
== END 2021-08-08 14:30 | disposition home or self-care (01) | DRG 192 ==
LOC: HO.ED 13:36 → HO.EDOVER 14:46 → HO.IMC 23:45
PROVIDERS: Admitting Provider Student in an Organized Health Care Education/Training Program; Emergency Provider Emergency Medicine Emergency Medical Services; PCP Nurse Practitioner Family; Visit Provider Student in an Organized Health Care Education/Training Program
DX: J44.1 Chronic obstructive pulmonary disease with (acute) exacerbation (principal); E11.9 Type 2 diabetes mellitus without complications; R06.03 Acute respiratory distress; K21.9 Gastro-esophageal reflux disease without esophagitis; F17.210 Nicotine dependence, cigarettes, uncomplicated; Z99.81 Dependence on supplemental oxygen; Z71.6 Tobacco abuse counseling; Z79.84 Long term (current) use of oral hypoglycemic drugs; Z79.890 Hormone replacement therapy; Z79.899 Other long term (current) drug therapy
CPT/HCPCS: 36415; 71045; 71250; 80048; 81001; 82947; 83880; 84484; 85025; 87635; 93005; 94640; 94644; 99285; J1650; J2920; J2930

== ENCOUNTER 2021-08-17 07:18 | Emergency (ER) | payer MEDICARE, MEDICAID, SELFPAY ==
--- NOTE | ~2021-08-17 | XR_ITS ---
EXAMINATION: XR CHEST CLINICAL INFORMATION: Shortness of breath COMPARISON: CT chest 08/05/2021, chest radiographs 08/06/2021, 07/13/2021, 03/22/2021 TECHNIQUE: Portable upright AP view of the chest was obtained. FINDINGS: There is hyperinflation/COPD with right apical bullous changes and coarse right apical pleural calcification again seen. The right pulmonary masses noted on CT are not well appreciated on plain film. There is a old calcified granulomata are again seen left lateral base. There is no pneumothorax, airspace consolidation, groundglass opacity, or definite effusion. The heart is normal in size. The vascularity is normal. The hilar and mediastinal contours and visualized bony structures are unremarkable. XR/XR chest 1V IMPRESSION: No acute intrathoracic disease. Nodules noted on CT in the right lung not conspicuous on x-ray.
--- NOTE | ~2021-08-17 | XR_ITS ---
EXAMINATION: XR TIBIA AND FIBULA, RIGHT CLINICAL INFORMATION: Fall COMPARISON: X-ray the right knee December 2017 TECHNIQUE: AP and lateral views of the right tibia and fibula were obtained. FINDINGS: There is arterial calcification. The bones and soft tissues are otherwise normal. No fracture. No osseous lesions. XR/XR tibia fibula RT 2V IMPRESSION: No acute abnormality of the right tibia and fibula.
--- NOTE | 2021-08-17 08:05 | ED_ITS ---
HPI - SOB/Dyspnea General Chief Complaint: Wound/Laceration Stated Complaint: LEG LACERATION ASTHMA Time Seen by Provider: 08/17/21 07:53 History of Present Illness HPI Narrative: Patient is 75 years old presents today status post fall accidental in nature last night. Complaining of laceration to the right leg. Patient also complaining of history of COPD, COVID. He is status post COVID vaccine. Positive coughing upper respiratory symptoms. Most of this is chronic. Patient has a history of severe COPD been admitted multiple times. Patient is still smoking. Baseline not on home O2. No chest pain or diaphoresis. Related Data Home Medications Medication Instructions Recorded Confirmed metformin 500 mg tablet 500 mg PO DAILY 09/28/20 08/06/21 levothyroxine 112 mcg tablet 112 mcg PO DAILY@0600 12/01/20 08/06/21 omeprazole 20 mg capsule,delayed 20 mg PO DAILY 12/01/20 08/06/21 release duloxetine 30 mg capsule,delayed 1 cap PO DAILY PRN 07/13/21 08/06/21 release mirtazapine 7.5 mg tablet 1 tab PO BEDTIME 07/13/21 08/06/21 simvastatin 80 mg tablet 80 mg PO BEDTIME 07/13/21 08/06/21 ipratropium 0.5 mg-albuterol 3 mg 1 vial INHALATION QID PRN 08/06/21 08/06/21 (2.5 mg base)/3 mL nebulization soln multivitamin 1 tab PO DAILY 08/06/21 08/06/21 nabumetone 500 mg tablet 1 tab PO BID PRN 08/06/21 08/06/21 prednisone 10 mg tablet 1 tab PO DAILY 08/06/21 08/06/21 pregabalin 75 mg capsule 75 mg PO BID 08/06/21 08/06/21 Previous Rx's Medication Instructions Recorded albuterol sulfate 90 mcg/actuation 2 puff INHALATION Q4-6H PRN #8.5 g 05/23/21 aerosol inhaler (Ventolin HFA) azithromycin 250 mg tablet 250 mg PO Q24H 3 Days #3 tab 08/08/21 prednisone 20 mg tablet 40 mg PO DAILY #6 tab 08/08/21 prednisone 20 mg tablet 40 mg PO DAILY #10 tab 08/17/21 Allergies Allergy/AdvReac Type Severity Reaction Status Date / Time shellfish derived Allergy Severe ANAPHYLAXIS Verified 07/11/21 13:19 [SHELLFISH DERIVED] pollen extracts [POLLEN] Allergy Intermediate RUNNING Verified 07/11/21 13:19 NOSE, WATERY EYES, SNEEZING varenicline [VARENICLINE] AdvReac Unknown PALPITATION Verified 07/11/21 13:19 S [facility] Past Medical History Medical History Asthma Cataract COPD (chronic obstructive pulmonary disease) Diabetes GERD (gastroesophageal reflux disease) Hypertension Hypothyroidism Osteoarthritis Osteoporosis Oxygen dependent Sepsis Ureteral calculi Surgical History History of appendectomy Hx of cataract surgery Social History Social History Household Members: None Housing: House Do you presently have visiting nurse or other home services: No Alcohol intake: never Patient Tobacco Use Status: Current everyday Tobacco user Tobacco use type: Cigarette Cigarette Packs Per Day: 0.5 Cigarettes Per Day: 5 Years Smoked: 50 Second Hand Smoke Exposure: No Use of substances other than those prescribed or required for medical reasons: No Advance Directives: Yes Advance Directives on File: Yes Advance Directives Date on File: 12/18/20 service: No Current occupational status: unemployed and retired Physical Exam Vital Signs: Vital Signs: Last Vital Signs Temp 98.2 F 08/17/21 08:10 Pulse 75 08/17/21 08:10 Resp 16 08/17/21 08:10 BP 143/60 H 08/17/21 08:10 Pulse Ox 99 08/17/21 08:10 Body Mass Index 23.6 Appearance: Alert. Oriented X3. No acute distress. Eyes: Pupils equal, round and reactive to light. ENT: Pharynx normal. Neck: Normal inspection. Neck supple. No lymph nodes noted. No crepitus CVS: Normal heart rate and rhythm. Pulses normal. Normal S1 and S2 Respiratory: No respiratory distress. Diminished breath sounds bilaterally positive wheezing, no retraction Abdomen: Soft and nontender. No rigidity. No distention. good BS x4 Skin: Skin warm and dry. Normal skin color. Normal skin turgor. Extremities: No lower extremity edema. Neurovascular intact to all extremities. No Lacerations. No Rash Neuro: Oriented X 3. No motor deficit. No sensory deficit. Moving all extermities. No slurred speech MDM - SOB/Dyspnea MDM Narrative Medical decision making narrative: Patient's chest x-ray showed no focal infiltrate. O2 sat 100% on room air. Patient given albuterol treatment x1. Started on steroids with good relief of symptoms. Patient's laceration was cleaned subsequently closed. No complications. X-ray showed no fractures. Will discharge patient home. Close follow-up on an outpatient basis. Procedures Laceration right leg: Site: lower extremity Side (If applicable): left Size (cm): 7 Description: linear Depth: simple, single layer Local Anesthetic: lidocaine 1% Amount of anesthesia used (mL): 5 Pre-repair: wound explored Skin layer closed with: nylon Size (cm): 4-0 Number of sutures: 7 Technique: simple, interrupted Discharge Plan Discharge Clinical Impression: COPD (chronic obstructive pulmonary disease), Laceration Patient Disposition: Home, Self-Care Instructions: Laceration (ED), COPD (Chronic Obstructive Pulmonary Disease) (ED) Additional Instructions: Suture removal in 10 days. Prescriptions: New prednisone 20 mg tablet 40 mg PO DAILY Qty: 10 RF: 0 No Action metformin 500 mg tablet 500 mg PO DAILY RF: 0 levothyroxine 112 mcg tablet 112 mcg PO DAILY@0600 RF: 0 omeprazole 20 mg capsule,delayed release(DR/EC) 20 mg PO DAILY RF: 0 albuterol sulfate [Ventolin HFA] 90 mcg/actuation HFA aerosol inhaler 2 puff inhalation Q4-6H PRN (Reason: shortness of breath or wheezing) Qty: 8.5 RF: 0 simvastatin 80 mg tablet 80 mg PO BEDTIME RF: 0 mirtazapine 7.5 mg tablet 1 tab PO BEDTIME RF: 0 duloxetine 30 mg capsule,delayed release(DR/EC) 1 cap PO DAILY PRN (Reason: chronic pain) RF: 0 prednisone 10 mg tablet 1 tab PO DAILY RF: 0 ipratropium-albuterol 0.5 mg-3 mg(2.5 mg base)/3 mL solution for nebulization 1 vial inhalation QID PRN (Reason: asthma) RF: 0 nabumetone 500 mg tablet 1 tab PO BID PRN (Reason: knee pain) RF: 0 pregabalin 75 mg capsule 75 mg PO BID RF: 0 multivitamin Tablet 1 tab PO DAILY RF: 0 azithromycin 250 mg Tablet 250 mg PO Q24H 3 Days Qty: 3 RF: 0 prednisone 20 mg tablet 40 mg PO DAILY Qty: 6 RF: 0 Referrals: Luz Mccall NP [Primary Care Provider] - 2 days (Suture removal in approximately 10 days.)
[2021-08-17 08:10] VITALS: BP 143/60; PULSE 75; RESP 16; TEMP 36.8; O2SAT 99; BMI 23.6
[2021-08-17] MEDS: Albuterol Sulfate 90 MCG 8 GM INHALER 2 PUFF INHALE (08:15)
[2021-08-17] MEDS: predniSONE 20 MG TABLET 40 MG PO (08:15)
[2021-08-17] MEDS: Lidocaine HCl 1 % MPF 5 ML VIAL SUBCUT (08:15)
== END 2021-08-17 08:55 | disposition home or self-care (01) ==
PROVIDERS: Emergency Provider Emergency Medicine Emergency Medical Services; PCP Nurse Practitioner Family
DX: S81.812A Laceration without foreign body, left lower leg, initial encounter (principal); M79.605 Pain in left leg; R06.02 Shortness of breath; J44.9 Chronic obstructive pulmonary disease, unspecified; W01.0XXA Fall on same level from slipping, tripping and stumbling without subsequent striking against object, initial encounter; Y93.9 Activity, unspecified; Y92.9 Unspecified place or not applicable; Y99.9 Unspecified external cause status; Z79.899 Other long term (current) drug therapy; Z99.81 Dependence on supplemental oxygen
CPT/HCPCS: 12002; 71045; 73590; 99284

== ENCOUNTER 2021-08-28 20:04 | Emergency (ER) | payer MEDICARE, MEDICAID, SELFPAY ==
--- NOTE | ~2021-08-28 | XR_ITS ---
EXAMINATION: XR CHEST CLINICAL INFORMATION: Shortness of breath COMPARISON: Chest x-ray August 17, 2021 no acute abnormality of chest. PET/CT of chest August 05, 2021 TECHNIQUE: Frontal portable view of the chest was obtained. 9:23 PM FINDINGS: There is hyperinflation of lungs. Calcific granuloma at the left lung base. Stable coarse calcifications in the right upper lung. Stable pleural-parenchymal scarring at right lung apex. No acute airspace disease. No pulmonary vascular congestion. There is no pleural effusion or pneumothorax. The heart size is normal. The cardiac and mediastinal contours are normal. XR/XR chest 1V IMPRESSION: No acute abnormality the chest.
[2021-08-28 20:25] VITALS: BP 146/83; PULSE 114; RESP 28; TEMP 36.9; O2SAT 88; BMI 20.5
[2021-08-28 20:28] VITALS: O2SAT 94
--- NOTE | 2021-08-28 21:11 | ED_ITS ---
HPI - SOB/Dyspnea General Chief Complaint: Dyspnea Stated Complaint: asthma, intense SoB Time Seen by Provider: 08/28/21 21:09 Source: patient and EMS Mode of arrival: EMS Limitations: no limitations History of Present Illness HPI Narrative: 75-year-old gentleman, active 50+ pack-year smoker, followed for pulmonary nodules and severe COPD with multiple exacerbations essentially on maximum medical therapy. ? He continues to use Trelegy, duo nebs, Daliresp, and prednisone 15 mg daily.? Comes to the ER for increased shortness of breath just prior to arrival saturating 88% on room air patient been here multiple times for same patient id uses inhaler without much response patient is not on any oxygen at home patient does have a dry cough no fever patient not been vaccinated against COVID-19 Related Data Home Medications Medication Instructions Recorded Confirmed metformin 500 mg tablet 500 mg PO DAILY 09/28/20 08/06/21 levothyroxine 112 mcg tablet 112 mcg PO DAILY@0600 12/01/20 08/06/21 omeprazole 20 mg capsule,delayed 20 mg PO DAILY 12/01/20 08/06/21 release duloxetine 30 mg capsule,delayed 1 cap PO DAILY PRN 07/13/21 08/06/21 release mirtazapine 7.5 mg tablet 1 tab PO BEDTIME 07/13/21 08/06/21 simvastatin 80 mg tablet 80 mg PO BEDTIME 07/13/21 08/06/21 ipratropium 0.5 mg-albuterol 3 mg 1 vial INHALATION QID PRN 08/06/21 08/06/21 (2.5 mg base)/3 mL nebulization soln multivitamin 1 tab PO DAILY 08/06/21 08/06/21 nabumetone 500 mg tablet 1 tab PO BID PRN 08/06/21 08/06/21 prednisone 10 mg tablet 1 tab PO DAILY 08/06/21 08/06/21 pregabalin 75 mg capsule 75 mg PO BID 08/06/21 08/06/21 Previous Rx's Medication Instructions Recorded albuterol sulfate 90 mcg/actuation 2 puff INHALATION Q4-6H PRN #8.5 g 05/23/21 aerosol inhaler (Ventolin HFA) azithromycin 250 mg tablet 250 mg PO Q24H 3 Days #3 tab 08/08/21 prednisone 20 mg tablet 40 mg PO DAILY #6 tab 08/08/21 prednisone 20 mg tablet 40 mg PO DAILY #10 tab 08/17/21 Allergies Allergy/AdvReac Type Severity Reaction Status Date / Time shellfish derived Allergy Severe ANAPHYLAXIS Verified 07/11/21 13:19 [SHELLFISH DERIVED] pollen extracts [POLLEN] Allergy Intermediate RUNNING Verified 07/11/21 13:19 NOSE, WATERY EYES, SNEEZING varenicline [VARENICLINE] AdvReac Unknown PALPITATION Verified 07/11/21 13:19 S Review of Systems Review of Systems: Yes all other systems are reviewed and are negative [facility] Past Medical History Medical History Asthma Cataract COPD (chronic obstructive pulmonary disease) Diabetes GERD (gastroesophageal reflux disease) Hypertension Hypothyroidism Osteoarthritis Osteoporosis Oxygen dependent Sepsis Ureteral calculi Surgical History History of appendectomy Hx of cataract surgery Social History Social History Household Members: None Housing: House Do you presently have visiting nurse or other home services: No Alcohol intake: never Patient Tobacco Use Status: Current everyday Tobacco user Tobacco use type: Cigarette Cigarette Packs Per Day: 0.5 Cigarettes Per Day: 5 Years Smoked: 50 Second Hand Smoke Exposure: No Use of substances other than those prescribed or required for medical reasons: No Advance Directives: Yes Advance Directives on File: Yes Advance Directives Date on File: 12/18/20 service: No Current occupational status: unemployed and retired Physical Exam Vital Signs: Vital Signs: Last Vital Signs Temp 97.9 F 08/28/21 23:25 Pulse 86 08/28/21 23:25 Resp 17 08/28/21 23:25 BP 119/63 08/28/21 23:25 Pulse Ox 98 08/28/21 23:25 Body Mass Index 20.5 Appearance: Alert. Oriented X3. In mild respiratory distress Eyes: No pallor icterus ENT: Pharynx normal. Oral Mucosa moist Neck: Normal inspection. Neck supple. CVS: Normal heart rate and rhythm. Pulses normal. Respiratory: Mild respiratory distress. Equal air entry bilateral, prolonged expiration with wheezing and rhonchi bilaterally no rales Abdomen: Soft and nontender. Skin: Skin warm and dry. Normal skin color. Normal skin turgor. Extremities: No lower extremity edema. No calf tenderness Neuro: Oriented X 3. 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 MDM - SOB/Dyspnea Lab Data Result diagrams: 08/28/21 21:08 08/28/21 21:08 Labs: Lab Results 08/28/21 08/28/21 08/28/21 Range/Units 21:08 21:08 21:08 WBC 9.8 (4.8-10.8) X10*3/uL RBC 4.64 (4.60-5.80) X10*6/uL Hgb 11.7 L (14.0-18.0) g/dl Hct 38.5 L (42-52) % MCV 83.0 (80-98) fL MCH 25.2 L (27.0-33.0) pg MCHC 30.4 L (31.0-36.0) g/dl RDW 16.6 H (11.0-16.0) % Plt Count 342 (160-400) X10*3/uL MPV 10.3 (9.4-12.4) fL Immature Gran % (Auto) 0.3 (0.0-0.4) % Neut % (Auto) 69.9 (45-73) % Lymph % (Auto) 15.3 L (20-40) % Dolores % (Auto) 6.8 (2-11) % Eos % (Auto) 7.4 H (0-4) % Baso % (Auto) 0.3 (0-2) % Lymph # (Auto) 1.5 (1.2-4.9) X10*3/uL Dolores # (Auto) 0.7 (0.1-1.2) X10*3/uL Eos # (Auto) 0.7 H (0.0-0.4) X10*3/uL Baso # (Auto) 0.0 (0.0-0.2) X10*3/uL Abs Immat Gran (auto) 0.03 (0.00-0.03) X10*3/uL Absolute Neuts (auto) 6.8 (2.0-8.3) X10*3/uL Absolute Nucleated RBC 0.000 (0.0-0.012) X10*3/uL Nucleated RBC % (auto) 0.0 (0.0-0.2) /100WBC Sodium 142 (135-145) mmol/L Potassium 4.4 (3.3-5.1) mmol/L Chloride 104 (96-108) mmol/L Carbon Dioxide 29 (22-29) mmol/L Anion Gap 13 (12-20) BUN 10 (9-16) mg/dL Creatinine 0.82 (0.5-1.4) mg/dL Estim Creat Clear Calc 57.6 Estimated GFR > 60 Random Glucose 118 H D (60-115) mg/dL Lactic Acid (0.5-2.0) mmol/L Calcium 9.1 (8.4-10.2) mg/dL Total Bilirubin 0.6 (0.0-1.0) mg/dL AST 11 (5-37) U/L ALT 10 (0-40) U/L Alkaline Phosphatase 110 (39-117) U/L Total Protein 6.7 (6.5-8.0) g/dL Albumin 4.2 (3.5-5.0) g/dL Coronavirus (PCR) NEGATIVE (Negative) Influenza Type A (PCR) NEGATIVE (Negative) Influenza Type B (PCR) NEGATIVE (Negative) RSV RNA Qual (PCR) NEGATIVE (Negative) 08/28/21 Range/Units 21:11 WBC (4.8-10.8) X10*3/uL RBC (4.60-5.80) X10*6/uL Hgb (14.0-18.0) g/dl Hct (42-52) % MCV (80-98) fL MCH (27.0-33.0) pg MCHC (31.0-36.0) g/dl RDW (11.0-16.0) % Plt Count (160-400) X10*3/uL MPV (9.4-12.4) fL Immature Gran % (Auto) (0.0-0.4) % Neut % (Auto) (45-73) % Lymph % (Auto) (20-40) % Dolores % (Auto) (2-11) % Eos % (Auto) (0-4) % Baso % (Auto) (0-2) % Lymph # (Auto) (1.2-4.9) X10*3/uL Dolores # (Auto) (0.1-1.2) X10*3/uL Eos # (Auto) (0.0-0.4) X10*3/uL Baso # (Auto) (0.0-0.2) X10*3/uL Abs Immat Gran (auto) (0.00-0.03) X10*3/uL Absolute Neuts (auto) (2.0-8.3) X10*3/uL Absolute Nucleated RBC (0.0-0.012) X10*3/uL Nucleated RBC % (auto) (0.0-0.2) /100WBC Sodium (135-145) mmol/L Potassium (3.3-5.1) mmol/L Chloride (96-108) mmol/L Carbon Dioxide (22-29) mmol/L Anion Gap (12-20) BUN (9-16) mg/dL Creatinine (0.5-1.4) mg/dL Estim Creat Clear Calc Estimated GFR Random Glucose (60-115) mg/dL Lactic Acid 1.5 (0.5-2.0) mmol/L Calcium (8.4-10.2) mg/dL Total Bilirubin (0.0-1.0) mg/dL AST (5-37) U/L ALT (0-40) U/L Alkaline Phosphatase (39-117) U/L Total Protein (6.5-8.0) g/dL Albumin (3.5-5.0) g/dL Coronavirus (PCR) (Negative) Influenza Type A (PCR) (Negative) Influenza Type B (PCR) (Negative) RSV RNA Qual (PCR) (Negative) Discharge Plan Discharge Clinical Impression: COPD (chronic obstructive pulmonary disease) Qualifiers: COPD type: chronic bronchitis Chronic bronchitis type: mucopurulent Qualified Code(s): J41.1 - Mucopurulent chronic bronchitis Patient Disposition: Home, Self-Care Instructions: COPD (Chronic Obstructive Pulmonary Disease) (ED) Additional Instructions: Continue your inhaler and prednisone and follow with your wharf tally clerk Prescriptions: No Action metformin 500 mg tablet 500 mg PO DAILY RF: 0 levothyroxine 112 mcg tablet 112 mcg PO DAILY@0600 RF: 0 omeprazole 20 mg capsule,delayed release(DR/EC) 20 mg PO DAILY RF: 0 albuterol sulfate [Ventolin HFA] 90 mcg/actuation HFA aerosol inhaler 2 puff inhalation Q4-6H PRN (Reason: shortness of breath or wheezing) Qty: 8.5 RF: 0 simvastatin 80 mg tablet 80 mg PO BEDTIME RF: 0 mirtazapine 7.5 mg tablet 1 tab PO BEDTIME RF: 0 duloxetine 30 mg capsule,delayed release(DR/EC) 1 cap PO DAILY PRN (Reason: chronic pain) RF: 0 prednisone 10 mg tablet 1 tab PO DAILY RF: 0 ipratropium-albuterol 0.5 mg-3 mg(2.5 mg base)/3 mL solution for nebulization 1 vial inhalation QID PRN (Reason: asthma) RF: 0 nabumetone 500 mg tablet 1 tab PO BID PRN (Reason: knee pain) RF: 0 pregabalin 75 mg capsule 75 mg PO BID RF: 0 multivitamin Tablet 1 tab PO DAILY RF: 0 azithromycin 250 mg Tablet 250 mg PO Q24H 3 Days Qty: 3 RF: 0 prednisone 20 mg tablet 40 mg PO DAILY Qty: 6 RF: 0 prednisone 20 mg tablet 40 mg PO DAILY Qty: 10 RF: 0 Interventions: ED Discharge Assessment Last Done: 08/29/21 00:29 Discharge Date/Time: 08/29/21 00:29
[2021-08-28 21:16] LABS: MANUAL DIFF FLAG NO
[2021-08-28 21:25] LABS: Basophils Percent Auto 0.3 % (0-2); Eosinophils Absolute Auto 0.7 X10*3/uL (0.0-0.4); Eosinophils Percent Auto 7.4 % (0-4); Hematocrit 38.5 % (42-52); Hemoglobin 11.7 g/dl (14.0-18.0); Imm Gran Abs Auto 0.03 X10*3/uL (0.00-0.03); Imm Gran Pct Auto 0.3 % (0.0-0.4); Lymphocytes Absolute Auto 1.5 X10*3/uL (1.2-4.9); Lymphocytes Percent Auto 15.3 % (20-40); Mean Corpuscular HGB Conc 30.4 g/dl (31.0-36.0); Mean Corpuscular Hemoglobin 25.2 pg (27.0-33.0); Mean Platelet Volume 10.3 fL (9.4-12.4); Monocytes Absolute Auto 0.7 X10*3/uL (0.1-1.2); Monocytes Percent Auto 6.8 % (2-11); Neutrophils Absolute Auto 6.8 X10*3/uL (2.0-8.3); Neutrophils Percent Auto 69.9 % (45-73); Platelet Count 342 X10*3/uL (160-400); Red Blood Count 4.64 X10*6/uL (4.60-5.80); Red Cell Distribution Width 16.6 % (11.0-16.0); White Blood Count 9.8 X10*3/uL (4.8-10.8)
[2021-08-28 21:30] LABS: Lactic Acid 1.5 mmol/L (0.5-2.0)
[2021-08-28 21:36] LABS: Alanine Aminotransferase 10 U/L (0-40); Albumin Level 4.2 g/dL (3.5-5.0); Alkaline Phosphatase 110 U/L (39-117); Anion Gap 13 (12-20); Aspartate Amino Transferase 11 U/L (5-37); Bilirubin Total 0.6 mg/dL (0.0-1.0); Blood Urea Nitrogen 10 mg/dL (9-16); Calcium 9.1 mg/dL (8.4-10.2); Carbon Dioxide 29 mmol/L (22-29); Chloride 104 mmol/L (96-108); Creatinine Clr Calc Pharmacy 57.6; Estimated Glomerular Filt Rate > 60; Glucose Random 118 mg/dL (60-115); Potassium 4.4 mmol/L (3.3-5.1); Sodium 142 mmol/L (135-145); Total Protein 6.7 g/dL (6.5-8.0)
[2021-08-28 22:00] VITALS: PULSE 80; RESP 18; O2SAT 99
[2021-08-28 22:02] LABS: Influenza A PCR NEGATIVE (Negative); Influenza B PCR NEGATIVE (Negative); Resp Syncy Virus RNA Qual PCR NEGATIVE (Negative); SARS COV2 PCR INHOUSE NEGATIVE (Negative)
[2021-08-28] MEDS: methylPREDNISolone Sod Succ 125 MG/2 ML VIAL IVPUSH (22:07)
--- NOTE | 2021-08-28 22:31 | PC.NURSE ---
RT AT BEDSIDE FOR HOUR LONG UPDRAFT. SKIN PWD RESPIRATIONS EVEN UNLABORED, INTERMITTENT JUNKY COUGH. NSR ON MONITOR. SPO2 PREVIOUSLY 99% ON 1L NC. AWAITING RESULTS.
[2021-08-28] MEDS: Albuterol/Iprat 2.5/0.5MG 3 ML AMPUL.NEB INHALE (22:39)
[2021-08-28] MEDS: Albuterol Sulfate (0.083%) 2.5 MG/3 ML VIAL.NEB 5 MG INHALE (22:39)
[2021-08-28 23:25] VITALS: BP 119/63; PULSE 86; RESP 17; TEMP 36.6; O2SAT 98
== END 2021-08-29 00:29 | disposition home or self-care (01) ==
PROVIDERS: Emergency Provider Internal Medicine
DX: J41.1 Mucopurulent chronic bronchitis (principal); R06.02 Shortness of breath; F17.210 Nicotine dependence, cigarettes, uncomplicated; E11.9 Type 2 diabetes mellitus without complications; Z71.6 Tobacco abuse counseling; Z20.822 Contact with and (suspected) exposure to COVID-19; Z79.899 Other long term (current) drug therapy; Z79.84 Long term (current) use of oral hypoglycemic drugs
CPT/HCPCS: 0241U; 36415; 71045; 80053; 83605; 85025; 87040; 96374; 99284; J2930

== ENCOUNTER → 2021-10-08 13:06 | Outpatient (BNVA) | payer MEDICARE, MEDICAID, SELFPAY | PROVIDERS: PCP Nurse Practitioner Family; Visit Provider Internal Medicine Pulmonary Disease | DX: J41.1 Mucopurulent chronic bronchitis (principal); R91.8 Other nonspecific abnormal finding of lung field; J44.1 Chronic obstructive pulmonary disease with (acute) exacerbation; F17.210 Nicotine dependence, cigarettes, uncomplicated | CPT/HCPCS: 99212 ==

== ENCOUNTER 2021-10-21 12:09 | Outpatient (REF) | payer MEDICARE, MEDICAID, SELFPAY ==
--- NOTE | ~2021-10-21 | PE_ITS ---
EXAMINATION: Fluorine-18 FDG PET/CT Scan CLINICAL INDICATION: Initial treatment management. Pulmonary nodules. PROCEDURE: 59 minutes following the intravenous administration of 11.5 mCi of fluorine 18 FDG, images from the base of the skull to the mid thighs were obtained using a combined PET/CT scanner with CT scan based attenuation correction. No oral contrast was administered. No intravenous contrast was administered. Transverse, coronal, sagittal, and volume reconstruction projections were obtained. The patient's blood glucose as determined by a finger stick, was 108 mg/dl immediately prior to injection. Total CT exam dose-length product 176.11 mGy-cm * These CT images were obtained using dose optimization techniques as appropriate, variously including the following: Automated exposure control * Adjustment of mA and/or kV according to patient size (this includes techniques or standardized protocols for targeted exams where dose is matched to indication/reason for exam; i.e. extremities or head) * Use of iterative reconstruction technique COMPARISON: No previous PET/CT scan is available for comparison. CT angiogram of the chest dated 10/21/2021, the same date as this PET/CT scan and CT scan of the abdomen and pelvis dated 05/22/2021 are available for comparison. FINDINGS: NECK AND VISUALIZED HEAD: No foci of abnormal FDG activity are noted. The distribution of FDG activity is physiological. There is no cervical lymphadenopathy. THORAX: There is markedly increased FDG activity in a posterior pleural-based spiculated right lower lobe nodule that also abuts the posterior aspect of the major interlobar fissure. This shows SUVmax 10.6, slice 79/[address] images measures 2.2 x 1.9 cm in largest transverse dimensions and approximately 2.0 cm cephalocaudad. There is an additional mildly FDG avid pulmonary nodule abutting the diaphragmatic pleura in the posterior aspect of the right lower lobe showing SUVmax 3.8, slice 116/223 and measuring 1.6 x 0.9 cm in largest transverse dimensions and approximately 1.2 cm cephalocaudad. There is a densely calcified left lower lobe 0.7 cm nodule with no abnormal FDG activity, likely a granuloma. No additional foci of abnormal FDG activity are present. Densely calcified pleural plaques are present posteriorly and laterally in the right lung apex and there is some scarring in the left lung apex. Additional pleural plaques are present along the medial aspect of the right lower lobe, also with no associated abnormal FDG activity. There is no pleural or pericardial fluid, or pneumothorax. There is no mediastinal, supraclavicular, or axillary lymphadenopathy. There is diffusely increased activity of mild intensity present in the diaphragm and some increased activity in the intercostal musculature, likely related to increased respiratory effort. ABDOMEN AND PELVIS: There is mild FDG activity throughout the gastrointestinal tract, likely physiological. However, there is a discrete focus of much more intensely increased FDG activity present in the left para midline rectosigmoid colon. This shows SUVmax 6.7, slice 189/233. There may be some bowel wall thickening at this site but this is not clearly delineated on these nondiagnostic CT images performed without intravenous or oral contrast. There is diverticulosis without evidence of diverticulitis. The hollow viscera are otherwise unremarkable. There is some retained urine in the distal right ureter, likely physiological. There is no corresponding CT abnormality at this site. There are no other suspicious foci of increased FDG activity in the abdomen or pelvis. The liver, gallbladder, and spleen are unremarkable. The kidneys, adrenal glands and pancreas are unremarkable. There there is a densely calcified calculus posteriorly in the right side of the urinary bladder, the pelvic organs are otherwise unremarkable. There is no retroperitoneal, mesenteric, pelvic or inguinal lymphadenopathy. MUSCULOSKELETAL: No foci of abnormal FDG activity are present in the osseous structures. There are degenerative changes in the spine no suspicious sclerotic or lytic lesions are present. VASCULAR: Vascular calcifications including some coronary calcifications are noted. PET/PET CT fusion skull to thigh IMPRESSION: 1. A posterior pleural-based FDG avid right lower lobe pulmonary nodule is strongly suspicious for a malignant lesion. 2. A second diaphragmatic right lower lobe pulmonary nodule his mildly FDG avid, also strongly suspicious for malignancy. 3. 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 4. Increased FDG activity in the diaphragm and intercostal muscles bilaterally is evidence of increased respiratory effort. 5. There is a focus of increased FDG activity in the rectosigmoid colon as described above. While this may be physiological, focal appearance is suspicious for malignancy. Correlation with colonoscopy is recommended. 6. No additional abnormalities are present suspicious for other metastatic or malignant lesions. 7. Vascular calcifications including coronary.
== END 2021-10-21 12:10 | disposition home or self-care (01) ==
LOC: HO.PET 12:09
PROVIDERS: Visit Provider Internal Medicine Pulmonary Disease
DX: Z13.89 Encounter for screening for other disorder (principal)

== ENCOUNTER 2021-10-21 15:13 | Inpatient (IN) | payer MEDICARE, MEDICAID, SELFPAY ==
--- NOTE | ~2021-10-21 | XR_ITS ---
EXAMINATION: XR CHEST CLINICAL INFORMATION: Shortness of breath COMPARISON: Previous chest x-rays most recent July [address] 08/15/2021 TECHNIQUE: Frontal view of the chest was obtained. FINDINGS: The cardiac silhouette does not appear enlarged. The thoracic aorta is tortuous. Hilar and mediastinal contours are otherwise unremarkable. There is right apical pleural thickening and calcification. There is a 2.3 cm noncalcified nodule in the right perihilar region. There is a calcified 8 mm nodule at the left lung base. The lungs are otherwise clear. There is no pleural effusion or pneumothorax. There are degenerative changes of the spine. XR/XR chest 1V IMPRESSION: No evidence for acute disease in the chest. Stable noncalcified 2 cm right pulmonary nodule and 8 mm calcified left pulmonary nodule and right apical pleural thickening and calcification.
--- NOTE | ~2021-10-21 | CT_ITS ---
EXAMINATION: CT ANGIOGRAM OF THE CHEST WITH AND WITHOUT CONTRAST (CT PULMONARY ANGIOGRAM FOR PE) CLINICAL INFORMATION: Reason for Exam SOB COMPARISON: CT chest 08/05/2021 TECHNIQUE: Prior to contrast administration, noncontrast localization images were obtained. Subsequently, multidetector volumetric imaging was performed from the thoracic inlet to below the diaphragms following the administration of 65 mL Omnipaque 350 intravenous contrast. No contrast reaction reported Sagittal, coronal, and MIP oblique sagittal reformatted images were obtained on the CT workstation, uploaded to PACS, and reviewed. This CT examination was performed using dose optimization techniques as appropriate, variously including the following: *Automated exposure control *Adjustment of mA and/or kV according to patient size (this includes techniques or standardized protocols for targeted exams where dose is matched to indication/reason for exam; i.e. extremities or head) *Use of iterative reconstruction technique Total exam dose-length product 192 mGy-cm FINDINGS: QUALITY OF STUDY/CONTRAST BOLUS: Satisfactory. PULMONARY ARTERIES: No central or segmental pulmonary emboli. THORACIC AORTA: No aneurysm or dissection. Atherosclerotic changes are present with calcified and noncalcified plaque in the thoracic aorta. LUNG: Right lower lobe pleural-based mass is slightly larger. By my measurements previously this measured 1.8 x 1.6 cm and currently measures 2.0 x 1.7 cm (prior 4:275 compare 8:254). In the right medial costophrenic sulcus there is a additional masses and is increased in size from 1.1 to 1.5 cm (8:431). Stable left apical posterolateral pleural thickening/mass like density is stable. PLEURA: Right-sided calcified pleural plaque is present. MEDIASTINUM: Normal heart size. No pericardial effusion. No hilar or mediastinal lymphadenopathy. No evidence of septal bowing or right heart strain. CHEST WALL/AXILLA: No axillary or internal mammary lymphadenopathy. OSSEOUS STRUCTURES: No acute or suspicious osseous abnormality. UPPER ABDOMEN: Unremarkable. No reflux of contrast into the hepatic veins to suggest elevated right heart pressures. CT/CT angio chest PE protocol IMPRESSION: 1. No evidence of pulmonary emboli 2. Increasing size of 2 right lung masses suspicious for progressive malignancy VTE: negative
[2021-10-21 15:19] VITALS: BP 151/119; PULSE 107; RESP 38; TEMP 37.1; O2SAT 94; BMI 20.4
--- NOTE | 2021-10-21 15:36 | ECG_ITS ---
Test Reason : COPD Blood Pressure : / mmHG Vent. Rate : 100 BPM Atrial Rate : 100 BPM P-R Int : 132 ms QRS Dur : 080 ms QT Int : 304 ms P-R-T Axes : 081 066 070 degrees QTc Int : 392 ms Sinus rhythm with Premature supraventricular complexes Otherwise normal ECG When compared with ECG of 06-AUG-2021 11:56, No significant change was found Referred By: Loren Kaur Electronically Signed By:EMILEE DO MD
--- NOTE | 2021-10-21 15:43 | ED.SOB ---
HPI - SOB/Dyspnea General Chief Complaint: Dyspnea <PHUONG Green Last Filed: 10/21/21 22:37> Stated Complaint: asthma <PHUONG Green - Last Filed: 10/21/21 22:37> Time Seen by Provider: 10/21/21 15:36 <PHUONG Green Last Filed: 10/21/21 22:37> Source: patient <PHUONG Green - Last Filed: 10/21/21 22:37> Mode of arrival: ambulatory <PHUONG Green Last Filed: 10/21/21 22:37> Limitations: no limitations <PHUONG Green Last Filed: 10/21/21 22:37> History of Present Illness HPI Narrative: 75-year-old male past medical history significant for COPD, asthma, diabetes, hypertension presents to the emergency department with shortness of breath and says i'm having asthma that has been progressively worsening x3 days. According to the patient he has also been having a productive cough of thick sputum over the past 3 days. He tells me he has tried inhalers, and nebulizers with little to no relief. He decided to come in today, because he was already in the hospital getting a CT from head to toe according to his family member. They state that he has been so short of breath that he is having difficulty speaking, and walking. He denies chest pain, nausea, vomiting, fevers, chills, abdominal pain, headache, dizziness. He has been eating and drinking well. No sick contacts. Patient does not rerquire home O2 Patient's asthma has never required intubation. <PHUONG Green - Last Filed: 10/21/21 22:37> MD elicited complaint: shortness of breath, cough and asthma attack <PHUONG Green Last Filed: 10/21/21 22:37> Pertinent past history: COPD, asthma and diabetes <PHUONG Green Last Filed: 10/21/21 22:37> Onset (ago): day(s) (3) <PHUONG Green Last Filed: 10/21/21 22:37> Timing: constant <PHUONG Green - Last Filed: 10/21/21 22:37> Severity: severe <PHUONG Green - Last Filed: 10/21/21 22:37> Exacerbating factors: lying flat and movement <PHUONG Green - Last Filed: 10/21/21 22:37> Relieving factors: nothing <PHUONG Green - Last Filed: 10/21/21 22:37> Known history of: COPD, asthma, diabetes and other (HTN) <PHUONG Green - Last Filed: 10/21/21 22:37> Associated symptoms: denies other symptoms, cough (productive of thick sputum ), sputum production and orthopnea <PHUONG Green - Last Filed: 10/21/21 22:37> Treatment prior to arrival: none <PHUONG Green - Last Filed: 10/21/21 22:37> Related Data Home Medications: Home Medications Medication Instructions Recorded Confirmed metformin 500 mg tablet 500 mg PO DAILY 09/28/20 10/21/21 levothyroxine 112 mcg tablet 112 mcg PO DAILY@0600 12/01/20 10/21/21 omeprazole 20 mg capsule,delayed 20 mg PO DAILY 12/01/20 10/21/21 release simvastatin 80 mg tablet 80 mg PO BEDTIME 07/13/21 10/21/21 ipratropium 0.5 mg-albuterol 3 mg 1 vial INHALATION QID PRN 08/06/21 10/21/21 (2.5 mg base)/3 mL nebulization soln multivitamin 1 tab PO DAILY 08/06/21 10/21/21 prednisone 10 mg tablet 1 tab PO DAILY 08/06/21 10/21/21 pregabalin 75 mg capsule 75 mg PO DAILY 08/06/21 10/21/21 fluticasone fur. 200 mcg-umeclid 1 puff INHALATION DAILY 10/21/21 10/21/21 62.5 mcg-vilant 25 mcg inhalat.powder (Trelegy Ellipta) pregabalin 75 mg capsule 150 mg PO BEDTIME 10/21/21 10/21/21 Previous Rx's Medication Instructions Recorded Ventolin HFA 90 mcg/actuation 2 puff PO Q6H PRN #18 g NS 09/17/21 aerosol inhaler (albuterol sulfate) theophylline 400 mg 400 mg PO DAILY 30 Days #30 tab 10/08/21 tablet,extended release 24 hr alprazolam 0.5 mg tablet (Xanax) 0.5 mg PO ONCE #1 tab 10/20/21 doxycycline hyclate 100 mg capsule 100 mg PO BID 10 Days #20 cap 10/21/21 prednisone 20 mg tablet 40 mg PO DAILY 5 Days #10 tab 10/21/21 <PHUONG Green Last Filed: 10/21/21 22:37> Allergies/Adverse Reactions: Allergies Allergy/AdvReac Type Severity Reaction Status Date / Time shellfish derived Allergy Severe ANAPHYLAXIS Verified 10/21/21 15:18 [SHELLFISH DERIVED] pollen extracts [POLLEN] Allergy Intermediate RUNNING Verified 10/21/21 15:18 NOSE, WATERY EYES, SNEEZING varenicline [VARENICLINE] AdvReac Unknown PALPITATION Verified 10/21/21 15:18 S <PHUONG Green Last Filed: 10/21/21 22:37> Review of Systems Review of Systems: Constitutional : No Fever, No Chills ENT/Mouth : No Hoarseness, No sore throat, No Rhinorrhea Eyes: No Redness, No Discharge, No Vision Changes Cardiovascular : No Chest Pain, + SOB, + Dyspnea on Exertion, No Edema Respiratory : + Cough, + Sputum, + Wheezing, Gastrointestinal : No Nausea, No Vomiting, No Diarrhea, No abdominal Pain Genitourinary : No Dysuria, No Hematuria Musculoskeletal : No joint pain, No Myalgias Skin : No rash Neuro : No Weakness, No Numbness, No Headache Psych : No anxiety, depression Heme/Lymph: No Bruising, No Bleeding Endocrine : No Polyuria, No Polydipsia All other systems reviewed and are negative <PHUONG Green Last Filed: 10/21/21 22:37> [facility] Past Medical History Attestation statement: The following information was validated with the patient. <PHUONG Green Last Filed: 10/21/21 22:37> Source: old records reviewed and nursing notes reviewed <PHUONG Green Last Filed: 10/21/21 22:37> Medical History: Medical History (Updated 10/22/21 @ 09:55 by Jose Alejandro Marrero MD) Asthma Cataract Chronic respiratory failure COPD (chronic obstructive pulmonary disease) Diabetes GERD (gastroesophageal reflux disease) Hypertension Hypothyroidism Osteoarthritis Osteoporosis Oxygen dependent Sepsis Tobacco dependence Ureteral calculi <PHUONG Green - Last Filed: 10/21/21 22:37> Surgical History: Surgical History History of appendectomy Hx of cataract surgery <PHUONG Green - Last Filed: 10/21/21 22:37> Social History Social History: Social History Household Members: None Housing: House Do you presently have visiting nurse or other home services: No Alcohol intake: never Patient Tobacco Use Status: Current everyday Tobacco user Tobacco use type: Cigarette Cigarette Packs Per Day: 0.5 Cigarettes Per Day: 5 Years Smoked: 50 Smoked in Last 30 Days: Yes Second Hand Smoke Exposure: No Use of substances other than those prescribed or required for medical reasons: No Advance Directives: Yes Advance Directives on File: Yes Advance Directives Date on File: 12/18/20 service: No Current occupational status: unemployed and retired <PHUONG Green - Last Filed: 10/21/21 22:37> Physical Exam Vital Signs: Vital Signs: Last Vital Signs Temp 97.6 F 10/22/21 07:22 Pulse 74 10/22/21 10:35 Resp 18 10/22/21 10:35 BP 108/52 L 10/22/21 10:35 Pulse Ox 93 10/22/21 10:35 Body Mass Index 20.4 Upon my initial evaluation patient was hypertensive, tachycardic, tachypneic and hypoxic saturating 90% on room air. <PHUONG Green - Last Filed: 10/21/21 22:37> Vital Signs: Last Vital Signs Temp 97.6 F 10/22/21 07:22 Pulse 74 10/22/21 10:35 Resp 18 10/22/21 10:35 BP 108/52 L 10/22/21 10:35 Pulse Ox 93 10/22/21 10:35 Body Mass Index 20.4 <Nick Khan MD - Last Filed: 10/22/21 16:19> Appearance: Alert.? Oriented X3.?+ mild respiratory distress + tracheal tugging +increased work of breathing +use of accessory muscles for breathing. Head: Normocephalic, atraumatic, no step-offs or deformities Eyes: Pupils equal, round and reactive to light.? ENT: Pharynx normal.? Neck: Normal inspection.? Neck supple.? CVS: Normal heart rate and rhythm.? Pulses normal.? Respiratory: + respiratory distress.?+ wheezing, rales appreciated throughout as well as diminished breath sounds bilaterally. Abdomen: Soft and nontender.? Skin: Skin warm and dry.? Normal skin color.? Normal skin turgor.? Extremities: No lower extremity edema.? No calf ttp. 5/5 strength to bilateral upper and lower extremities Back: No midline tenderness, no C-spine tenderness, full range of motion, no CVA tenderness bilaterally Neuro: Oriented X 3.? No motor deficit.? No sensory deficit. <PHUONG Green - Last Filed: 10/21/21 22:37> Course Reevaluation(s) Reevaluation #1: Labs show no acute infection, no anemia. No acute electrolyte abnormalities, troponin negative, BNP 47. COVID negative. X-ray shows a non change pulmonary nodule. No signs of infiltrates or acute disease. Patient appears much better after DuoNeb, mag, Solu-Medrol. He is saturating 100% at this time. He is not in acute respiratory distress. Will continue to monitor. <PHUONG Green - Last Filed: 10/21/21 22:37> I agree with history and plan, patient with severe respiratory distress secondary to COPD exacerbation. Diffuse rhonchi and tripoding will start nebs and steroids and reassess. Checking for pneumonia. If he improves can be discharged home or he can be admitted <Nick Khan MD - Last Filed: 10/22/21 16:19> Time: 16:44 <PHUONG Green - Last Filed: 10/21/21 22:37> 16:46 <Nick Khan MD - Last Filed: 10/22/21 16:19> Reevaluation #2: Upon re-evaluation there was still rales noted, and wheezing. Patient states he feels a little bit better but he is still having difficulty breathing. <PHUONG Green - Last Filed: 10/21/21 22:37> Time: 18:20 <PHUONG Green - Last Filed: 10/21/21 22:37> Reevaluation #3: I reached out to the hospitalist for admission, I will also add an order of CT angiogram to rule out PE as suggested by hospitalist <PHUONG Green - Last Filed: 10/21/21 22:37> Time: 20:48 <PHUONG Green - Last Filed: 10/21/21 22:37> Additional Reevaluation(s): Dr. Stiles will be admitting this patient. CTA neagtive for VTE- increasing mass size noted concerning for malignancy. <PHUONG Green - Last Filed: 10/21/21 22:37> MDM - SOB/Dyspnea MDM Narrative Medical decision making narrative: [id number] 75-year-old male past medical history of COPD, asthma, hypertension, diabetes presents to the emergency department with shortness of breath, and productive cough of thick sputum x3 days progressively worsening. Patient has tried nebulizers, and inhalers with no relief. Patient is vaccinated. Patient denies fevers, chills, nausea, vomiting, chest pain. Upon physical examination patient is in mild respiratory distress with use of accessory muscles for breathing, labored breathing, tracheal tugging. There are diminished breath sounds bilaterally, with wheezing and rales throughout. S1-S2 appreciated free of murmurs. Abdomen soft nontender nondistended. Bilateral lower extremities free of edema. 5/5 strength upper and lower extremities. No focal neuro deficits. At time of my exam patient was noted to be hypertensive, tachycardic, tachypneic, and hypoxic saturating 90% on room air. Plan at this time is to obtain basic labs, BNP, troponin, COVID, chest x-ray, EKG, magnesium, UA, blood cultures, lactic. He will also be given a DuoNeb, Solu-Medrol, and magnesium. At this time 3:36 p.m. infection is suspected, I will also order prophylactic antibiotics. Upon my initial evaluation, a sepsis focused exam was done. <PHUONG Green - Last Filed: 10/21/21 22:37> Medical Records Attestation: I reviewed the patient's medical records. <PHUONG Green - Last Filed: 10/21/21 22:37> Lab Data Attestation: I reviewed the patient's lab results. <PHUONG Green - Last Filed: 10/21/21 22:37> Result diagrams: : 10/22/21 05:50 10/22/21 05:50 <PHUONG Green - Last Filed: 10/21/21 22:37> Labs: Lab Results 10/21/21 10/21/21 10/21/21 Range/Units 16:04 16:04 16:04 WBC 6.1 (4.8-10.8) X10*3/uL RBC 4.88 (4.60-5.80) X10*6/uL Hgb 12.0 L (14.0-18.0) g/dl Hct 40.8 L (42.0-52.0) % MCV 83.6 (80.0-98.0) fL MCH 24.6 L (27.0-33.0) pg MCHC 29.4 L (31.0-36.0) g/dl RDW 16.3 H (11.0-16.0) % Plt Count 281 (160-400) X10*3/uL MPV 10.2 (9.4-12.4) fL Immature Gran % (Auto) 0.2 (0.0-0.4) % Neut % (Auto) 59.2 (45-73) % Lymph % (Auto) 24.6 (20-40) % [place] % (Auto) 5.7 (2-11) % Eos % (Auto) 9.8 H (0-4) % Baso % (Auto) 0.5 (0-2) % Lymph # (Auto) 1.5 (1.2-4.9) X10*3/uL [place] # (Auto) 0.4 (0.1-1.2) X10*3/uL Eos # (Auto) 0.6 H (0.0-0.4) X10*3/uL Baso # (Auto) 0.0 (0.0-0.2) X10*3/uL Abs Immat Gran (auto) 0.01 (0.00-0.03) X10*3/uL Absolute Neuts (auto) 3.6 (2.0-8.3) x10*3/uL Absolute Nucleated RBC 0.000 (0.0-0.012) X10*3/uL Nucleated RBC % (auto) 0.0 (0.0-0.2) /100WBC Sodium 142 (135-145) mmol/L Potassium 4.6 (3.3-5.1) mmol/L Chloride 108 (96-108) mmol/L Carbon Dioxide 26 (22-29) mmol/L Anion Gap 13 (12-20) BUN 10 (9-16) mg/dL Creatinine 0.91 (0.5-1.4) mg/dL Estim Creat Clear Calc 51.8 Estimated GFR > 60 Random Glucose 142 H (60-115) mg/dL Lactic Acid (0.5-2.0) mmol/L Calcium 8.5 D (8.4-10.2) mg/dL Magnesium 2.1 (1.6-2.6) mg/dL Total Bilirubin 0.3 (0.0-1.0) mg/dL AST 17 D (5-37) U/L ALT 10 (0-40) U/L Alkaline Phosphatase 105 (39-117) U/L Troponin I High Sens 4.8 (<3.5-35.0) ng/L B-Natriuretic Peptide (<100) pg/mL Total Protein 7.0 (6.5-8.0) g/dL Albumin 4.1 (3.5-5.0) g/dL COVID-19 (ELIO) (Negative) COVID-19 Clin Com 10/21/21 10/21/21 10/21/21 Range/Units 16:04 16:04 16:04 WBC (4.8-10.8) X10*3/uL RBC (4.60-5.80) X10*6/uL Hgb (14.0-18.0) g/dl Hct (42.0-52.0) % MCV (80.0-98.0) fL MCH (27.0-33.0) pg MCHC (31.0-36.0) g/dl RDW (11.0-16.0) % Plt Count (160-400) X10*3/uL MPV (9.4-12.4) fL Immature Gran % (Auto) (0.0-0.4) % Neut % (Auto) (45-73) % Lymph % (Auto) (20-40) % [place] % (Auto) (2-11) % Eos % (Auto) (0-4) % Baso % (Auto) (0-2) % Lymph # (Auto) (1.2-4.9) X10*3/uL [place] # (Auto) (0.1-1.2) X10*3/uL Eos # (Auto) (0.0-0.4) X10*3/uL Baso # (Auto) (0.0-0.2) X10*3/uL Abs Immat Gran (auto) (0.00-0.03) X10*3/uL Absolute Neuts (auto) (2.0-8.3) x10*3/uL Absolute Nucleated RBC (0.0-0.012) X10*3/uL Nucleated RBC % (auto) (0.0-0.2) /100WBC Sodium (135-145) mmol/L Potassium (3.3-5.1) mmol/L Chloride (96-108) mmol/L Carbon Dioxide (22-29) mmol/L Anion Gap (12-20) BUN (9-16) mg/dL Creatinine (0.5-1.4) mg/dL Estim Creat Clear Calc Estimated GFR Random Glucose (60-115) mg/dL Lactic Acid 1.6 (0.5-2.0) mmol/L Calcium (8.4-10.2) mg/dL Magnesium (1.6-2.6) mg/dL Total Bilirubin (0.0-1.0) mg/dL AST (5-37) U/L ALT (0-40) U/L Alkaline Phosphatase (39-117) U/L Troponin I High Sens (<3.5-35.0) ng/L B-Natriuretic Peptide 47 (<100) pg/mL Total Protein (6.5-8.0) g/dL Albumin (3.5-5.0) g/dL COVID-19 ([facility]IO) Negative (Negative) COVID-19 Clin Com See Note <PHUONG Green - Last Filed: 10/21/21 22:37> Lab Results 10/21/21 10/21/21 10/21/21 Range/Units 16:04 16:04 16:04 WBC 6.1 (4.8-10.8) X10*3/uL RBC 4.88 (4.60-5.80) X10*6/uL Hgb 12.0 L (14.0-18.0) g/dl Hct 40.8 L (42.0-52.0) % MCV 83.6 (80.0-98.0) fL MCH 24.6 L (27.0-33.0) pg MCHC 29.4 L (31.0-36.0) g/dl RDW 16.3 H (11.0-16.0) % Plt Count 281 (160-400) X10*3/uL MPV 10.2 (9.4-12.4) fL Immature Gran % (Auto) 0.2 (0.0-0.4) % Neut % (Auto) 59.2 (45-73) % Lymph % (Auto) 24.6 (20-40) % [place] % (Auto) 5.7 (2-11) % Eos % (Auto) 9.8 H (0-4) % Baso % (Auto) 0.5 (0-2) % Lymph # (Auto) 1.5 (1.2-4.9) X10*3/uL [place] # (Auto) 0.4 (0.1-1.2) X10*3/uL Eos # (Auto) 0.6 H (0.0-0.4) X10*3/uL Baso # (Auto) 0.0 (0.0-0.2) X10*3/uL Abs Immat Gran (auto) 0.01 (0.00-0.03) X10*3/uL Absolute Neuts (auto) 3.6 (2.0-8.3) x10*3/uL Absolute Nucleated RBC 0.000 (0.0-0.012) X10*3/uL Nucleated RBC % (auto) 0.0 (0.0-0.2) /100WBC Sodium 142 (135-145) mmol/L Potassium 4.6 (3.3-5.1) mmol/L Chloride 108 (96-108) mmol/L Carbon Dioxide 26 (22-29) mmol/L Anion Gap 13 (12-20) BUN 10 (9-16) mg/dL Creatinine 0.91 (0.5-1.4) mg/dL Estim Creat Clear Calc 51.8 Estimated GFR > 60 Random Glucose 142 H (60-115) mg/dL Lactic Acid (0.5-2.0) mmol/L Calcium 8.5 D (8.4-10.2) mg/dL Magnesium 2.1 (1.6-2.6) mg/dL Total Bilirubin 0.3 (0.0-1.0) mg/dL AST 17 D (5-37) U/L ALT 10 (0-40) U/L Alkaline Phosphatase 105 (39-117) U/L Troponin I High Sens 4.8 (<3.5-35.0) ng/L B-Natriuretic Peptide (<100) pg/mL Total Protein 7.0 (6.5-8.0) g/dL Albumin 4.1 (3.5-5.0) g/dL COVID-19 (ELIO) (Negative) COVID-19 Clin Com 10/21/21 10/21/21 10/21/21 Range/Units 16:04 16:04 16:04 WBC (4.8-10.8) X10*3/uL RBC (4.60-5.80) X10*6/uL Hgb (14.0-18.0) g/dl Hct (42.0-52.0) % MCV (80.0-98.0) fL MCH (27.0-33.0) pg MCHC (31.0-36.0) g/dl RDW (11.0-16.0) % Plt Count (160-400) X10*3/uL MPV (9.4-12.4) fL Immature Gran % (Auto) (0.0-0.4) % Neut % (Auto) (45-73) % Lymph % (Auto) (20-40) % [place] % (Auto) (2-11) % Eos % (Auto) (0-4) % Baso % (Auto) (0-2) % Lymph # (Auto) (1.2-4.9) X10*3/uL [place] # (Auto) (0.1-1.2) X10*3/uL Eos # (Auto) (0.0-0.4) X10*3/uL Baso # (Auto) (0.0-0.2) X10*3/uL Abs Immat Gran (auto) (0.00-0.03) X10*3/uL Absolute Neuts (auto) (2.0-8.3) x10*3/uL Absolute Nucleated RBC (0.0-0.012) X10*3/uL Nucleated RBC % (auto) (0.0-0.2) /100WBC Sodium (135-145) mmol/L Potassium (3.3-5.1) mmol/L Chloride (96-108) mmol/L Carbon Dioxide (22-29) mmol/L Anion Gap (12-20) BUN (9-16) mg/dL Creatinine (0.5-1.4) mg/dL Estim Creat Clear Calc Estimated GFR Random Glucose (60-115) mg/dL Lactic Acid 1.6 (0.5-2.0) mmol/L Calcium (8.4-10.2) mg/dL Magnesium (1.6-2.6) mg/dL Total Bilirubin (0.0-1.0) mg/dL AST (5-37) U/L ALT (0-40) U/L Alkaline Phosphatase (39-117) U/L Troponin I High Sens (<3.5-35.0) ng/L B-Natriuretic Peptide 47 (<100) pg/mL Total Protein (6.5-8.0) g/dL Albumin (3.5-5.0) g/dL COVID-19 ([facility]IO) Negative (Negative) COVID-19 Clin Com See Note <Nick Khan MD - Last Filed: 10/22/21 16:19> Imaging Data Chest x-ray: Attestation: I personally reviewed and interpreted this imaging study as follows: <PHUONG Green - Last Filed: 10/21/21 22:37> Radiologist's impression: XR/XR chest 1V IMPRESSION: No evidence for acute disease in the chest. Stable noncalcified 2 cm right pulmonary nodule and 8 mm calcified left pulmonary nodule and right apical pleural thickening and calcification. ? <Loren Kaur PA - Last Filed: 10/21/21 22:37> CTA: Attestation: I personally reviewed and interpreted this imaging study as follows: <PHUONG Green - Last Filed: 10/21/21 22:37> Radiologist's impression: CT/CT angio chest PE protocol IMPRESSION: 1.? No evidence of pulmonary emboli 2.? Increasing size of 2 right lung masses suspicious for progressive malignancy ? VTE: negative <Loren Kaur PA - Last Filed: 10/21/21 22:37> ECG Data Attestation: I personally reviewed and interpreted this ECG as follows: <PHUONG Green - Last Filed: 10/21/21 22:37> ECG interpretation date: 10/21/21 <PHUONG Green - Last Filed: 10/21/21 22:37> ECG interpretation time: 16:26 <Loren Kaur PA - Last Filed: 10/21/21 22:37> Prior ECG tracings: available for review <PHUONG Green - Last Filed: 10/21/21 22:37> Interpretation: Ventricular rate of 100, CA normal, QRS normal, QT/QTC normal EKG shows sinus rhythm with premature supraventricular complexes throughout. No ST elevations or depressions. No acute ischemia. Acute changes when compared to EKG from August 06, 2021. <PHUONG Green - Last Filed: 10/21/21 22:37> Critical Care Time Critical Care Time Critical Care Time: No <PHUONG Green - Last Filed: 10/21/21 22:37> Discharge Plan Discharge Clinical Impression: Acute exacerbation of chronic obstructive pulmonary disease (COPD) <PHUONG Green - Last Filed: 10/21/21 22:37> Patient Disposition: Admitted As Inpatient <PHUONG Green - Last Filed: 10/21/21 22:37>
[2021-10-21] MEDS: Albuterol/Iprat 2.5/0.5MG 3 ML AMPUL.NEB INHALE (15:44)
[2021-10-21 15:46] VITALS: PULSE 96; O2SAT 92
[2021-10-21] MEDS: Magnesium Sulfate/H2O 2 GM/50 ML PIGGYBACK IV (16:04)
[2021-10-21] MEDS: methylPREDNISolone Sod Succ 125 MG/2 ML VIAL IVPUSH (16:04)
[2021-10-21 16:09] VITALS: BP 147/70; PULSE 105; RESP 20; O2SAT 97
[2021-10-21 16:09] LABS: MANUAL DIFF FLAG NO
[2021-10-21 16:29] LABS: Basophils Percent Auto 0.5 % (0-2); Eosinophils Absolute Auto 0.6 X10*3/uL (0.0-0.4); Eosinophils Percent Auto 9.8 % (0-4); Hematocrit 40.8 % (42.0-52.0); Imm Gran Abs Auto 0.01 X10*3/uL (0.00-0.03); Imm Gran Pct Auto 0.2 % (0.0-0.4); Lymphocytes Absolute Auto 1.5 X10*3/uL (1.2-4.9); Lymphocytes Percent Auto 24.6 % (20-40); Mean Corpuscular HGB Conc 29.4 g/dl (31.0-36.0); Mean Corpuscular Hemoglobin 24.6 pg (27.0-33.0); Mean Corpuscular Volume 83.6 fL (80.0-98.0); Mean Platelet Volume 10.2 fL (9.4-12.4); Monocytes Absolute Auto 0.4 X10*3/uL (0.1-1.2); Monocytes Percent Auto 5.7 % (2-11); Neutrophils Absolute Auto 3.6 x10*3/uL (2.0-8.3); Neutrophils Percent Auto 59.2 % (45-73); Platelet Count 281 X10*3/uL (160-400); Red Blood Count 4.88 X10*6/uL (4.60-5.80); Red Cell Distribution Width 16.3 % (11.0-16.0); White Blood Count 6.1 X10*3/uL (4.8-10.8)
[2021-10-21] MEDS: cefTRIAXone sodium 1 GM in 0.9 % Sodium Chloride 50 ML IV (16:29)
[2021-10-21 16:30] LABS: B Type Natriuretic Peptide 47 pg/mL (<100); Troponin-I High Sensitivity 4.8 ng/L (<3.5-35.0)
[2021-10-21 16:31] LABS: Alanine Aminotransferase 10 U/L (0-40); Albumin Level 4.1 g/dL (3.5-5.0); Alkaline Phosphatase 105 U/L (39-117); Anion Gap 13 (12-20); Aspartate Amino Transferase 17 U/L (5-37); Bilirubin Total 0.3 mg/dL (0.0-1.0); Blood Urea Nitrogen 10 mg/dL (9-16); Calcium 8.5 mg/dL (8.4-10.2); Carbon Dioxide 26 mmol/L (22-29); Chloride 108 mmol/L (96-108); Creatinine Clr Calc Pharmacy 51.8; Estimated Glomerular Filt Rate > 60; Glucose Random 142 mg/dL (60-115); Magnesium 2.1 mg/dL (1.6-2.6); Potassium 4.6 mmol/L (3.3-5.1); Sodium 142 mmol/L (135-145)
[2021-10-21 16:33] LABS: Lactic Acid 1.6 mmol/L (0.5-2.0)
[2021-10-21 16:39] LABS: COVID-19 Test Negative (Negative); IDNOW Serial# 08D9AD1C
--- NOTE | 2021-10-21 16:45 | PHA.MEDREC ---
Pharmacy Consult ? Medication Reconciliation Pharmacy has completed the medication reconciliation.
[2021-10-21 18:24] VITALS: O2SAT 89
[2021-10-21] MEDS: Albuterol Sulfate (0.083%) 2.5 MG/3 ML VIAL.NEB 5 MG INHALE (19:05)
[2021-10-21 19:06] VITALS: PULSE 96; O2SAT 92
--- NOTE | 2021-10-21 20:28 | P.HPHOSP_ITS ---
History of Present Illness Date of Service: 10/21/21 Chief Complaint: SOB 75-year-old male with a past medical history of asthma / COPD, diabetes, hyperlipidemia, hypothyroidism, osteoarthritis, oxygen dependent presented to the hospital today with chief complaint of shortness of breath. Patient reported of the post 3-4 days he has been having shortness of breath, or presented dressed and as well as a exertion; that is worsening; associated with cough and sputum production; denies any fevers. Denies any GI or symptoms. Denies any chest pain palpitations lightheadedness or dizziness. Review of all other systems is negative except mentioned above ER course: As per the ER team patient noted to have significant wheezing bilaterally; given Solu-Medrol, magnesium; patient was initially noted to be 86% on room air; placed on supplemental oxygen; CT chest -pending; EKG nonischemic Troponin negative Admitted for possible COPD exacerbation [facility] Medical History (Updated 10/29/21 @ 00:03 by Eli Benjamin) Asthma Cataract Chronic respiratory failure COPD (chronic obstructive pulmonary disease) Diabetes GERD (gastroesophageal reflux disease) Hypertension Hypothyroidism Osteoarthritis Osteoporosis Oxygen dependent Sepsis Tobacco dependence Ureteral calculi Surgical History History of appendectomy Hx of cataract surgery Social History Household Members: None Housing: Apartment Do you presently have visiting nurse or other home services: Yes ([employer] upstairs) Alcohol intake: never Patient Tobacco Use Status: Current everyday Tobacco user Tobacco use type: Cigarette Cigarette Packs Per Day: 0.5 Cigarettes Per Day: 5 Years Smoked: 50 Second Hand Smoke Exposure: No Advance Directives Date on File: 12/18/20 service: No Current occupational status: unemployed and retired Meds Allergies Allergy/AdvReac Type Severity Reaction Status Date / Time shellfish derived Allergy Severe ANAPHYLAXIS Verified 10/31/21 13:54 [SHELLFISH DERIVED] pollen extracts [POLLEN] Allergy Intermediate RUNNING Verified 10/31/21 13:54 NOSE, WATERY EYES, SNEEZING varenicline [VARENICLINE] AdvReac Unknown PALPITATION Verified 10/31/21 13:54 S Active Medications: Current Medications Albuterol/Ipratropium (Albuterol/Iprat 2.5/0.5mg 3 Ml Ampul.Neb) ml INHALE QID PRN PRN Reason: asthma Alprazolam (Alprazolam 0.5 Mg Tablet) 0.5 mg PO ONCE [facility] Dextrose (Dextrose 50 % 25 Gm/50 Ml Vial) 25 gm IVPUSH Q15M PRN; Protocol PRN Reason: per Hypoglycemia Standing Ord. Glucose (Glucose Gel 15 Gm Gel..Gram.) 15 gm PO Q15M PRN; Protocol PRN Reason: per Hypoglycemia Standing Ord. Insulin Human Lispro (Insulin Lispro 100 Unit/Ml 3 Ml Vial) 0 unit SUBCUT QIDACHS [facility]; Protocol Levothyroxine Sodium (Levothyroxine Sodium 112 Mcg Tablet) 112 mcg PO DAILY@06 00 [facility] Multivitamins/Vitamin C (Multivitamin Tablet) 1 tab PO DAILY [facility] Non-Formulary Medication (Simvastatin) 80 mg PO BEDTIME [facility] Omeprazole (Omeprazole 20 Mg Capsule.Dr) 20 mg PO DAILY [facility] Pharmacy Consult (Consult Rx Perform Med Rec) 1 each MISCELLANE ONCE PRN PRN Reason: Consult order Pregabalin (Pregabalin 75 Mg Capsule) 75 mg PO DAILY [facility] Pregabalin (Pregabalin 150 Mg Capsule) 150 mg PO BEDTIME [facility] Theophylline (Theophylline Anhydrous Er 400 Mg Tab.Er.24h) 400 mg PO DAILY [facility] Home Medications Medication Instructions Recorded Confirmed Last Taken Type metformin 500 mg tablet 500 mg PO DAILY 09/28/20 10/21/21 10/17/21 History levothyroxine 112 mcg tablet 112 mcg PO DAILY@0600 12/01/20 10/21/21 10/21/21 History omeprazole 20 mg capsule,delayed 20 mg PO DAILY 12/01/20 10/21/21 10/21/21 History release simvastatin 80 mg tablet 80 mg PO BEDTIME 07/13/21 10/21/21 10/20/21 History ipratropium 0.5 mg-albuterol 3 mg 1 vial INHALATION QID PRN 08/06/21 10/21/21 10/21/21 History (2.5 mg base)/3 mL nebulization soln multivitamin 1 tab PO DAILY 08/06/21 10/21/21 Unknown History prednisone 10 mg tablet 1 tab PO DAILY 08/06/21 10/21/21 10/21/21 History pregabalin 75 mg capsule 75 mg PO DAILY 08/06/21 10/21/21 10/21/21 History fluticasone fur. 200 mcg-umeclid 1 puff INHALATION DAILY 10/21/21 10/21/21 10/21/21 History 62.5 mcg-vilant 25 mcg inhalat.powder (Trelegy Ellipta) pregabalin 75 mg capsule 150 mg PO BEDTIME 10/21/21 10/21/21 10/20/21 History Physical Exam Vital Signs and Narrative: Vital Signs: Last Vital Signs Temp 98.7 F 10/21/21 15:19 Pulse 96 10/21/21 19:06 Resp 20 10/21/21 16:09 BP 147/70 H 10/21/21 16:09 Pulse Ox 89 L 10/21/21 18:24 Body Mass Index 20.4 Results Labs CBC and Chem 7: 10/23/21 06:39 10/23/21 06:39 Labs: Laboratory Results - last 24 hr 10/21/21 10/21/21 10/21/21 16:04 16:04 16:04 MCV 83.6 MCH 24.6 L MCHC 29.4 L RDW 16.3 H Plt Count 281 MPV 10.2 Immature Gran % (Auto) 0.2 Neut % (Auto) 59.2 Lymph % (Auto) 24.6 [place] % (Auto) 5.7 Eos % (Auto) 9.8 H Baso % (Auto) 0.5 Lymph # (Auto) 1.5 [place] # (Auto) 0.4 Eos # (Auto) 0.6 H Baso # (Auto) 0.0 Abs Immat Gran (auto) 0.01 Absolute Neuts (auto) 3.6 Absolute Nucleated RBC 0.000 Nucleated RBC % (auto) 0.0 Anion Gap 13 Estim Creat Clear Calc 51.8 Estimated GFR > 60 Random Glucose 142 H Lactic Acid Calcium 8.5 D Magnesium 2.1 Total Bilirubin 0.3 AST 17 D ALT 10 Alkaline Phosphatase 105 Troponin I High Sens 4.8 B-Natriuretic Peptide Total Protein 7.0 Albumin 4.1 COVID-19 ([facility]) COVID-19 Clin Com 10/21/21 10/21/21 10/21/21 16:04 16:04 16:04 MCV MCH MCHC RDW Plt Count MPV Immature Gran % (Auto) Neut % (Auto) Lymph % (Auto) [place] % (Auto) Eos % (Auto) Baso % (Auto) Lymph # (Auto) [place] # (Auto) Eos # (Auto) Baso # (Auto) Abs Immat Gran (auto) Absolute Neuts (auto) Absolute Nucleated RBC Nucleated RBC % (auto) Anion Gap Estim Creat Clear Calc Estimated GFR Random Glucose Lactic Acid 1.6 Calcium Magnesium Total Bilirubin AST ALT Alkaline Phosphatase Troponin I High Sens B-Natriuretic Peptide 47 Total Protein Albumin COVID-19 ([facility]) Negative COVID-19 Clin Com See Note Imaging Radiologist's Impressions: Impressions Chest X-Ray 10/21/21 15:36 IMPRESSION: No evidence for acute disease in the chest. Stable noncalcified 2 cm right pulmonary nodule and 8 mm calcified left pulmonary nodule and right apical pleural thickening and calcification. Assessment and Plan (1) COPD exacerbation: Status: Acute 75-year-old male with a past medical history of asthma / COPD, diabetes, hyperlipidemia, hypothyroidism, osteoarthritis, oxygen dependent presented to the hospital today with chief complaint of shortness of breath. Acute hypoxia: In the setting of COPD exacerbation. Supplemental oxygen. CT chest with PE protocol-No PE. Increasing Lumg Mass: oncology consult COPD exacerbation continue Solu-Medrol IV t.i.d.. Nebulizations standing and p.r.n.. Azithromycin pulmonology consult given recurrent exacerbations. Diabetes: Insulin sliding scale. For all other chronic conditions, home medications will be continued DVT prophylaxis: Lovenox Code status: DNI only. Quality Stroke Does the patient have a stroke diagnosis?: No VTE Prior VTE?: No VTE Risk Level:: Medical - moderate - high VTE Device Contraindication: Treatment Not Indicated VTE Drug Contraindication: N/A - Med Ordered
[2021-10-21] MEDS: iohexoL 350 MG/ML 100 ML INFUS..BTL 65 ML IV (21:36)
[2021-10-21 21:47] VITALS: BP 126/53; PULSE 93; RESP 16; TEMP 36.7; O2SAT 93
[2021-10-21 22:05] LABS: Glucose, Whole Blood 198 mg/dL (60-115)
[2021-10-21 22:06] LABS: Appearance Urine CLOUDY; Color Urine YELLOW; Glucose Urine UA NEG (NEG); Leukocyte Esterase Urine NEG (NEG); Nitrite Urine NEG (NEG); PH 7.5 (5.0-8.0); Urine Blood NEG (NEG); Urine Ketones NEG (NEG); Urine Protein NEG (NEG-TRACE)
[2021-10-21] MEDS: Insulin Lispro 100 UNIT/ML 3 ML VIAL SUBCUT (22:13)
[2021-10-21] MEDS: Pregabalin 150 MG CAPSULE PO (22:14)
[2021-10-21] MEDS: Atorvastatin Calcium 40 MG TABLET PO (22:14)
[2021-10-21] MEDS: Enoxaparin Sodium 40 MG/0.4 ML SYRINGE SUBCUT (22:35)
[2021-10-21] MEDS: Azithromycin 500 MG TABLET PO (22:35)
[2021-10-22] VITALS (10 sets, daily range): BP systolic 106–153; BP diastolic 43–69; PULSE 66–79; RESP 14–18; TEMP 36.4–37.1; O2SAT 91–98
[2021-10-22] MEDS: methylPREDNISolone Sod Succ 40 MG/ML VIAL IVPUSH ×5 (01:43→22:43)
[2021-10-22] MEDS: 0.9 % Sodium Chloride Flush 3 ML SYRINGE IVFLUSH ×4 (01:43→20:38)
[2021-10-22 06:03] LABS: MANUAL DIFF FLAG NO
[2021-10-22] MEDS: Omeprazole 20 MG CAPSULE.DR PO (06:10)
[2021-10-22] MEDS: Levothyroxine Sodium 112 MCG TABLET PO (06:10)
[2021-10-22 06:21] LABS: Hematocrit 34.7 % (42.0-52.0); Hemoglobin 10.7 g/dl (14.0-18.0); Imm Gran Abs Auto 0.01 X10*3/uL (0.00-0.03); Imm Gran Pct Auto 0.3 % (0.0-0.4); Lymphocytes Absolute Auto 0.4 X10*3/uL (1.2-4.9); Lymphocytes Percent Auto 12.2 % (20-40); Mean Corpuscular HGB Conc 30.8 g/dl (31.0-36.0); Mean Corpuscular Hemoglobin 24.9 pg (27.0-33.0); Mean Corpuscular Volume 80.9 fL (80.0-98.0); Mean Platelet Volume 10.2 fL (9.4-12.4); Neutrophils Absolute Auto 2.6 x10*3/uL (2.0-8.3); Neutrophils Percent Auto 86.5 % (45-73); Platelet Count 257 X10*3/uL (160-400); Red Blood Count 4.29 X10*6/uL (4.60-5.80); Red Cell Distribution Width 16.3 % (11.0-16.0)
[2021-10-22 06:24] LABS: Anion Gap 12 (12-20); Blood Urea Nitrogen 15 mg/dL (9-16); Calcium 8.5 mg/dL (8.4-10.2); Carbon Dioxide 24 mmol/L (22-29); Chloride 111 mmol/L (96-108); Creatinine Clr Calc Pharmacy 57.5; Estimated Glomerular Filt Rate > 60; Glucose Random 166 mg/dL (60-115); Magnesium 2.3 mg/dL (1.6-2.6); Potassium 4.8 mmol/L (3.3-5.1); Sodium 142 mmol/L (135-145)
[2021-10-22] MEDS: Acetaminophen 325 MG TABLET 650 MG PO ×2 (07:32→20:36)
[2021-10-22 07:33] LABS: Glucose, Whole Blood 144 mg/dL (60-115)
[2021-10-22] MEDS: Albuterol/Iprat 2.5/0.5MG 3 ML AMPUL.NEB INHALE ×2 (07:55→19:42)
[2021-10-22] MEDS: Theophylline Anhydrous ER 400 MG TAB.ER.24H PO (08:54)
[2021-10-22] MEDS: Multivitamin TABLET 1 TAB PO (08:54)
--- NOTE | 2021-10-22 09:52 | P.CONPL_ITS ---
History of Present Illness History of Present Illness Consult date: 10/22/21 Chief complaint: COPD exacerbation Narrative: This is an inpatient Pulmonary consultation. The patient is a 75-y ear-old gentleman with known COPD, chronic respiratory failure on oxygen in addition to tobacco dependency. He follows closely in the Pulmonary Clinic. He has been concerning 2 cm pulmonary nodule. The patient did comment on the 21 October for a PET scan that was ordered. During the study was noted to be significantly winded and short of breath. Therefore he was referred to the ER afterwards. The PET scan did demonstrate significant hypermetabolic pulmonary nodules which are concerning for malignancy. He also has other potential activity suggesting metastatic disease. The final read on the PET scan still pending. I did speak to the patient regarding the findings this is in the h [facility]spital. He is very frail. I did recommend he consider a CT-guided biopsy was in the hospital. However, with the he rather go home and spend the family. Therefore, we will arrange for him to come back for an outpatient CT-guided biopsy. His regular logistics engineering manager will ultimately make a decision as far as had a go further with this concerning finding. In the meantime the patient is responding well to the prednisone and the antibiotics. The patient has done some wheezing but likely at baseline. The patient is likely able to go home either today or tomorrow whenever he is stable. Review of Systems Constitutional: Constitutional: Reports fatigue, Reports malaise, Denies night sweats and Reports weight loss ENT: Denies change in voice, Denies lip swelling, Denies mouth pain, Reports nasal congestion, Reports nasal discharge and Denies tongue swelling Cardiovascular: Cardiovascular: Denies chest pain and Reports dyspnea Respiratory: Respiratory: Reports chest congestion, Reports cough, Reports dyspnea and Reports wheezing Gastrointestinal: Gastrointestinal: Denies abdominal pain Musculoskeletal: Musculoskeletal: Denies no additional musculoskeletal complaints and Reports muscle weakness Neurologic: Denies Neuro-related abnormal movements Psychiatric: Psychiatric: Denies no additional psychiatric complaints Endocrine: Endocrine: Reports fatigue Hematologic/Lymphatic: Hematologic/Lymphatic: Denies easy bleeding and Denies lymphadenopathy Allergic/Immunologic: Allergic/Immunologic: Denies lip swelling, Denies tongue swelling and Reports wheezing PMFSH Past Medical History Medical History (Updated 10/22/21 @ 09:55 by Jose Alejandro Marrero MD) Asthma Cataract Chronic respiratory failure COPD (chronic obstructive pulmonary disease) Diabetes GERD (gastroesophageal reflux disease) Hypertension Hypothyroidism Osteoarthritis Osteoporosis Oxygen dependent Sepsis Tobacco dependence Ureteral calculi Surgical History Surgical History History of appendectomy Hx of cataract surgery Social History Social History Household Members: None Housing: House Do you presently have visiting nurse or other home services: No Alcohol intake: never Patient Tobacco Use Status: Current everyday Tobacco user Tobacco use type: Cigarette Cigarette Packs Per Day: 0.5 Cigarettes Per Day: 5 Years Smoked: 50 Smoked in Last 30 Days: Yes Second Hand Smoke Exposure: No Use of substances other than those prescribed or required for medical reasons: No Advance Directives: Yes Advance Directives on File: Yes Advance Directives Date on File: 12/18/20 service: No Current occupational status: unemployed and retired Meds Allergies Allergy/AdvReac Type Severity Reaction Status Date / Time shellfish derived Allergy Severe ANAPHYLAXIS Verified 10/21/21 15:18 [SHELLFISH DERIVED] pollen extracts [POLLEN] Allergy Intermediate RUNNING Verified 10/21/21 15:18 NOSE, WATERY EYES, SNEEZING varenicline [VARENICLINE] AdvReac Unknown PALPITATION Verified 10/21/21 15:18 S Active Medications: Current Medications Acetaminophen (Acetaminophen 325 Mg Tablet) 650 mg PO Q6H PRN PRN Reason: Pain, Mild (Pain Scale 1-3) Last Admin: 10/22/21 07:32 Dose: 650 mg Documented by: Albuterol/Ipratropium (Albuterol/Iprat 2.5/0.5mg 3 Ml Ampul.Neb) 3 ml INHALE QID PRN PRN Reason: asthma Albuterol/Ipratropium (Albuterol/Iprat 2.5/0.5mg 3 Ml Ampul.Neb) 3 ml INHALE R Q4H WHILE AWAKE [facility] Last Admin: 10/22/21 07:55 Dose: 3 ml Documented by: Atorvastatin Calcium (Atorvastatin Calcium 40 Mg Tablet) 40 mg PO BEDTIME [facility]I Last Admin: 10/21/21 22:14 Dose: 40 mg Documented by: Azithromycin (Azithromycin 500 Mg Tablet) 500 mg PO Q24H [facility]I Last Admin: 10/21/21 22:35 Dose: 500 mg Documented by: Dextrose (Dextrose 50 % 25 Gm/50 Ml Vial) 25 gm IVPUSH Q15M PRN; Protocol PRN Reason: per Hypoglycemia Standing Ord. Enoxaparin Sodium (Enoxaparin Sodium 40 Mg/0.4 Ml Syringe) 40 mg SUBCUT Q24H [facility] Last Admin: 10/21/21 22:35 Dose: 40 mg Documented by: Glucose (Glucose Gel 15 Gm Gel..Gram.) 15 gm PO Q15M PRN; Protocol PRN Reason: per Hypoglycemia Standing Ord. Insulin Human Lispro (Insulin Lispro 100 Unit/Ml 3 Ml Vial) 0 unit SUBCUT QIDACHS [facility]; Protocol Last Admin: 10/22/21 08:15 Dose: Not Given Documented by: Levothyroxine Sodium (Levothyroxine Sodium 112 Mcg Tablet) 112 mcg PO DAILY@0600 [facility] Last Admin: 10/22/21 06:10 Dose: 112 mcg Documented by: Melatonin (Melatonin 3 Mg Tablet) 6 mg PO BEDTIME PRN PRN Reason: Insomnia Methylprednisolone Sodium Succinate (Methylprednisolone Sod Succ 40 Mg/Ml Vial) 40 mg IVPUSH Q6H [facility] Last Admin: 10/22/21 06:11 Dose: 40 mg Documented by: Multivitamins/Vitamin C (Multivitamin Tablet) 1 tab PO DAILY [facility] Last Admin: 10/22/21 08:54 Dose: 1 tab Documented by: Omeprazole (Omeprazole 20 Mg Capsule.) 20 mg PO DAILY@0630 [facility] Last Admin: 10/22/21 06:10 Dose: 20 mg Documented by: Pharmacy Consult (Consult Rx Perform Med Rec) 1 each MISCELLANE ONCE PRN PRN Reason: Consult order Pregabalin (Pregabalin 75 Mg Capsule) 75 mg PO DAILY [facility] Pregabalin (Pregabalin 150 Mg Capsule) 150 mg PO BEDTIME [facility] Last Admin: 10/21/21 22:14 Dose: 150 mg Documented by: Senna (Sennosides 8.6 Mg Tablet) 17.2 mg PO BEDTIME PRN PRN Reason: Constipation Sodium Chloride (0.9 % Sodium Chloride Flush 3 Ml Syringe) 3 ml IVFLUSH QSHIFT [facility] Last Admin: 10/22/21 01:43 Dose: 3 ml Documented by: Theophylline (Theophylline Anhydrous Er 400 Mg Tab.Er.24h) 400 mg PO DAILY [facility] Last Admin: 10/22/21 08:54 Dose: 400 mg Documented by: Home Medications Medication Instructions Recorded Confirmed Last Taken Type metformin 500 mg tablet 500 mg PO DAILY 09/28/20 10/21/21 10/17/21 History levothyroxine 112 mcg tablet 112 mcg PO DAILY@0600 12/01/20 10/21/21 10/21/21 History omeprazole 20 mg capsule,delayed 20 mg PO DAILY 12/01/20 10/21/21 10/21/21 History release simvastatin 80 mg tablet 80 mg PO BEDTIME 07/13/21 10/21/21 10/20/21 History ipratropium 0.5 mg-albuterol 3 mg 1 vial INHALATION QID PRN 08/06/21 10/21/21 10/21/21 History (2.5 mg base)/3 mL nebulization soln multivitamin 1 tab PO DAILY 08/06/21 10/21/21 Unknown History prednisone 10 mg tablet 1 tab PO DAILY 08/06/21 10/21/21 10/21/21 History pregabalin 75 mg capsule 75 mg PO DAILY 08/06/21 10/21/21 10/21/21 History fluticasone fur. 200 mcg-umeclid 1 puff INHALATION DAILY 10/21/21 10/21/21 10/21/21 History 62.5 mcg-vilant 25 mcg inhalat.powder (Trelegy Ellipta) pregabalin 75 mg capsule 150 mg PO BEDTIME 10/21/21 10/21/21 10/20/21 History Physical Exam Vital Signs: Vital Signs: Last Vital Signs Temp 97.6 F 10/22/21 07:22 Pulse 72 10/22/21 07:57 Resp 16 10/22/21 07:22 BP 123/64 10/22/21 07:22 Pulse Ox 96 10/22/21 07:22 Body Mass Index 20.4 Const: General: alert Neck: Neck: Yes normal visual inspection, Yes full ROM and Yes no lymphadenopathy Chest: Chest palpation & inspection: normal inspection of the chest Resp: Auscultation: wheezes and diminished lung sounds Cardio: Rate: regular rate Rhythm: regular rhythm Heart sounds: S1 normal heart sound present and S2 normal heart sound present GI: Palpation (GI): Soft to palpation and nontender Auscultation: normal bowel sounds Skin: General skin exam: rashes and/or lesions noted Results Laboratory Findings CBC and BMP: 10/22/21 05:50 10/22/21 05:50 Abnormal lab findings: Abnormal Labs 10/21/21 10/21/21 10/21/21 16:04 16:04 21:53 WBC RBC Hgb 12.0 L Hct 40.8 L MCH 24.6 L MCHC 29.4 L RDW 16.3 H Neut % (Auto) Lymph % (Auto) Stevens % (Auto) Eos % (Auto) 9.8 H Lymph # (Auto) Stevens # (Auto) Eos # (Auto) 0.6 H Chloride POC Glucose 198 H Random Glucose 142 H 10/22/21 10/22/21 10/22/21 05:50 05:50 07:18 WBC 3.0 L RBC 4.29 L Hgb 10.7 L Hct 34.7 L MCH 24.9 L MCHC 30.8 L RDW 16.3 H Neut % (Auto) 86.5 H Lymph % (Auto) 12.2 L Stevens % (Auto) 1.0 L Eos % (Auto) Lymph # (Auto) 0.4 L Stevens # (Auto) 0.0 L Eos # (Auto) Chloride 111 H POC Glucose 144 H Random Glucose 166 H Assessment and Plan (1) COPD exacerbation: Status: Acute (2) Pulmonary nodules: Status: Acute (3) Chronic respiratory failure: Status: Acute (4) Tobacco dependence: Status: Acute Continue Prednisone taper Continue azithromycin Respiratory therapy Continue oxygen supplementation Tobacco cessation Will need outpt CT guided biopsy of the hypermetabolic pulmonary nodule. Procedures Date of Service Date of Service: 10/22/21
[2021-10-22] MEDS: Pregabalin 75 MG CAPSULE PO (10:31)
--- NOTE | 2021-10-22 10:35 | PC.NURSE ---
pt medicated with his 0900 lyrica late because this rn was awaiting pharmacy to bring up the medication
--- NOTE | 2021-10-22 12:04 | MHC.CM.PN ---
CM MET WITH PT WITH THE ASSISTANCE OF A [facility]. PT REPORTS HE LIVES IN A BASEMENT APARTMENT AT HIS SISTERS HOME. HE REPORTS HE IS INDEPENDENT WITH CARE AND HAS NO HOME SERVICES PT USES A [facility]E TO AMBULATE AND HAS NO OTHER DME HCP ON FILE PCP IS PARISA STONE DELIVERED AND A COPY WAS SENT TO HIM. CURRENT DC PLAN IS HOME WITH NO SERVICES FAMILY TO TRANSPORT
[2021-10-22 12:23] LABS: Glucose, Whole Blood 179 mg/dL (60-115)
[2021-10-22] MEDS: Insulin Lispro 100 UNIT/ML 3 ML VIAL SUBCUT ×3 (12:48→20:38)
--- NOTE | 2021-10-22 16:29 | HO.PM.IMPN ---
Subjective Subjective Date of Service: 10/22/21 Interval History: Breathing still bothersome; no significant improvement since admission Review of Systems Denies chest pain Admit shortness of breath Denies nausea vomiting diarrhea Physical Exam Vital Signs: Vital Signs: Last Vital Signs Temp 97.6 F 10/22/21 07:22 Pulse 74 10/22/21 10:35 Resp 18 10/22/21 10:35 BP 108/52 L 10/22/21 10:35 Pulse Ox 93 10/22/21 10:35 Body Mass Index 20.4 Const: Other: No acute distress; able to speak in short sentences Resp: Other: Diminished all lim; diffuse expiratory wheezes Cardio: Other: No S4; positive S1-S2; no S3 murmurs rubs or gallops GI: Other: Soft nontender nondistended normoactive bowel sounds Extrem: Other: No edema bilaterally Objective Data Active Medications Acetaminophen (Acetaminophen 325 Mg Tablet) 650 mg PO Q6H PRN PRN Reason: Pain, Mild (Pain Scale 1-3) Last Admin: 10/22/21 07:32 Dose: 650 mg Documented by: ANITHA Albuterol/Ipratropium (Albuterol/Iprat 2.5/0.5mg 3 Ml Ampul.Neb) 3 ml INHALE QID PRN PRN Reason: asthma Albuterol/Ipratropium (Albuterol/Iprat 2.5/0.5mg 3 Ml Ampul.Neb) 3 ml INHALE RQ4H WHILE AWAKE [facility] Last Admin: 10/22/21 15:05 Dose: Not Given Documented by: MP Non-Admin Reason: Patient Asleep Atorvastatin Calcium (Atorvastatin Calcium 40 Mg Tablet) 40 mg PO BEDTIME [facility] Last Admin: 10/21/21 22:14 Dose: 40 mg Documented by: GARY Azithromycin (Azithromycin 500 Mg Tablet) 500 mg PO Q24H [facility] Last Admin: 10/21/21 22:35 Dose: 500 mg Documented by: TERESSA Dextrose (Dextrose 50 % 25 Gm/50 Ml Vial) 25 gm IVPUSH Q15M PRN; Protocol PRN Reason: per Hypoglycemia Standing Ord. Enoxaparin Sodium (Enoxaparin Sodium 40 Mg/0.4 Ml Syringe) 40 mg SUBCUT Q24H [facility] Last Admin: 10/21/21 22:35 Dose: 40 mg Documented by: TERESSA Glucose (Glucose Gel 15 Gm Gel..Gram.) 15 gm PO Q15M PRN; Protocol PRN Reason: per Hypoglycemia Standing Ord. Insulin Human Lispro (Insulin Lispro 100 Unit/Ml 3 Ml Vial) 0 unit SUBCUT QIDACHS [facility]; Protocol Last Admin: 10/22/21 12:48 Dose: 2 unit Documented by: SERGIO Levothyroxine Sodium (Levothyroxine Sodium 112 Mcg Tablet) 112 mcg PO DAILY@0600 [facility] Last Admin: 10/22/21 06:10 Dose: 112 mcg Documented by: KELLI Melatonin (Melatonin 3 Mg Tablet) 6 mg PO BEDTIME PRN PRN Reason: Insomnia Methylprednisolone Sodium Succinate (Methylprednisolone Sod Succ 40 Mg/Ml Vial) 40 mg IVPUSH Q6H [facility] Last Admin: 10/22/21 10:32 Dose: 40 mg Documented by: SHEILA Multivitamins/Vitamin C (Multivitamin Tablet) 1 tab PO DAILY [facility] Last Admin: 10/22/21 08:54 Dose: 1 tab Documented by: ANITHA Omeprazole (Omeprazole 20 Mg Capsule.Dr) 20 mg PO DAILY@0630 [facility] Last Admin: 10/22/21 06:10 Dose: 20 mg Documented by: KELLI Pharmacy Consult (Consult Rx Perform Med Rec) 1 each MISCELLANE ONCE PRN PRN Reason: Consult order Pregabalin (Pregabalin 75 Mg Capsule) 75 mg PO DAILY [facility] Last Admin: 10/22/21 10:31 Dose: 75 mg Documented by: SHEILA Pregabalin (Pregabalin 150 Mg Capsule) 150 mg PO BEDTIME [facility] Last Admin: 10/21/21 22:14 Dose: 150 mg Documented by: GARY Senna (Sennosides 8.6 Mg Tablet) 17.2 mg PO BEDTIME PRN PRN Reason: Constipation Sodium Chloride (0.9 % Sodium Chloride Flush 3 Ml Syringe) 3 ml IVFLUSH QSHIFT [facility] Last Admin: 10/22/21 10:32 Dose: 3 ml Documented by: SHEILA Theophylline (Theophylline Anhydrous Er 400 Mg Tab.Er.24h) 400 mg PO DAILY [facility] Last Admin: 10/22/21 08:54 Dose: 400 mg Documented by: ANITHA Labs CBC & Chem 7: 11/24/21 05:50 10/22/21 05:50 Labs: Laboratory Results - last 24 hr 10/21/21 10/21/21 10/21/21 16:04 16:04 16:04 MCV 83.6 MCH 24.6 L MCHC 29.4 L RDW 16.3 H Plt Count 281 MPV 10.2 Immature Gran % (Auto) 0.2 Neut % (Auto) 59.2 Lymph % (Auto) 24.6 Maury % (Auto) 5.7 Eos % (Auto) 9.8 H Baso % (Auto) 0.5 Lymph # (Auto) 1.5 Maury # (Auto) 0.4 Eos # (Auto) 0.6 H Baso # (Auto) 0.0 Abs Immat Gran (auto) 0.01 Absolute Neuts (auto) 3.6 Absolute Nucleated RBC 0.000 Nucleated RBC % (auto) 0.0 Anion Gap 13 Estim Creat Clear Calc 51.8 Estimated GFR > 60 POC Glucose Random Glucose 142 H Lactic Acid Calcium 8.5 D Magnesium 2.1 Total Bilirubin 0.3 AST 17 D ALT 10 Alkaline Phosphatase 105 Troponin I High Sens 4.8 B-Natriuretic Peptide Total Protein 7.0 Albumin 4.1 Urine Color Urine Appearance Urine pH Ur Specific [place] Urine Protein Urine Glucose (UA) Urine Ketones Urine Blood Urine Nitrite Ur Leukocyte Esterase COVID-19 ([facility]IO) COVID-911 Pets Com 10/21/21 10/21/21 10/21/21 16:04 16:04 16:04 MCV MCH MCHC RDW Plt Count MPV Immature Gran % (Auto) Neut % (Auto) Lymph % (Auto) Maury % (Auto) Eos % (Auto) Baso % (Auto) Lymph # (Auto) Maury # (Auto) Eos # (Auto) Baso # (Auto) Abs Immat Gran (auto) Absolute Neuts (auto) Absolute Nucleated RBC Nucleated RBC % (auto) Anion Gap Estim Creat Clear Calc Estimated GFR POC Glucose Random Glucose Lactic Acid 1.6 Calcium Magnesium Total Bilirubin AST ALT Alkaline Phosphatase Troponin I High Sens B-Natriuretic Peptide 47 Total Protein Albumin Urine Color Urine Appearance Urine pH Ur Specific [place] Urine Protein Urine Glucose (UA) Urine Ketones Urine Blood Urine Nitrite Ur Leukocyte Esterase COVID-19 (ELIO) Negative COVID-Opp[facility]io Clin Com See Note 11/10/21/21 10/22/21 21:53 21:58 05:50 MCV 80.9 MCH 24.9 L MCHC 30.8 L RDW 16.3 H Plt Count 257 MPV 10.2 Immature Gran % (Auto) 0.3 Neut % (Auto) 86.5 H Lymph % (Auto) 12.2 L Maury % (Auto) 1.0 L Eos % (Auto) 0.0 Baso % (Auto) 0.0 Lymph # (Auto) 0.4 L Maury # (Auto) 0.0 L Eos # (Auto) 0.0 Baso # (Auto) 0.0 Abs Immat Gran (auto) 0.01 Absolute Neuts (auto) 2.6 Absolute Nucleated RBC 0.000 Nucleated RBC % (auto) 0.0 Anion Gap Estim Creat Clear Calc Estimated GFR POC Glucose 198 H Random Glucose Lactic Acid Calcium Magnesium Total Bilirubin AST ALT Alkaline Phosphatase Troponin I High Sens B-Natriuretic Peptide Total Protein Albumin Urine Color YELLOW Urine Appearance CLOUDY Urine pH 7.5 Ur Specific [place] 1.010 Urine Protein NEG Urine Glucose (UA) NEG Urine Ketones NEG Urine Blood NEG Urine Nitrite NEG Ur Leukocyte Esterase NEG COVID-19 ([facility]) COVID-19 Clin Com 10/22/21 10/22/21 10/22/21 05:50 07:18 12:17 MCV MCH MCHC RDW Plt Count MPV Immature Gran % (Auto) Neut % (Auto) Lymph % (Auto) Maury % (Auto) Eos % (Auto) Baso % (Auto) Lymph # (Auto) Maury # (Auto) Eos # (Auto) Baso # (Auto) Abs Immat Gran (auto) Absolute Neuts (auto) Absolute Nucleated RBC Nucleated RBC % (auto) Anion Gap 12 Estim Creat Clear Calc 57.5 Estimated GFR > 60 POC Glucose 144 H 179 H Random Glucose 166 H Lactic Acid Calcium 8.5 Magnesium 2.3 Total Bilirubin AST ALT Alkaline Phosphatase Troponin I High Sens B-Natriuretic Peptide Total Protein Albumin Urine Color Urine Appearance Urine pH Ur Specific [place] Urine Protein Urine Glucose (UA) Urine Ketones Urine Blood Urine Nitrite Ur Leukocyte Esterase COVID-19 (ELIO) COVID-19 Clin Com Assessment and Plan (1) COPD exacerbation: Status: Acute (2) Community acquired pneumonia: Status: Acute Assessment and Plan: 75-year-old male with a past history of asthma/COPD in the backdrop of ongoing tobacco use presents with worsening shortness of breath over the last several days. States breathing is not responding to his inhalers as usual 1. COPD exacerbation Continue IV methylprednisolone/azithromycin/nebs as ordered Titrate O2 to maintain sats greater than equal to 92% 2. Type 2 diabetes Continue sliding scale and adjust as indicated Likely to be elevated secondary to steroids. 3. CPAP As per pulmonology, will continue azithromycin is ordered 4. Lovenox DNI only Quality Stroke Does the patient have a stroke diagnosis?: No VTE Prior VTE?: No VTE Risk Level:: Medical - moderate - high VTE Device Contraindication: Treatment Not Indicated VTE Drug Contraindication: N/A - Med Ordered
[2021-10-22 16:45] LABS: Glucose, Whole Blood 188 mg/dL (60-115)
[2021-10-22 18:26] LABS: Glucose, Whole Blood 138 mg/dL (60-115)
--- NOTE | 2021-10-22 18:37 | PC.NURSE ---
Pt arr to unit from ED around 1800. A+O x3, steady gait, low fall risk. Oriented to unit, instructed on how to use call grimes, pt verbalizes understanding. Ate dinner in the ED. Reports that his friend and sister live upstairs, his friend helps him with ADL's. No SOB, difficulty breathing reported or observed. 98% on room air. No complaints or questions offered at this time. Will pass to oncoming RN.
--- NOTE | 2021-10-22 19:06 | PC.NURSE ---
Spoke to patient with certified court/medical interpreter present re code status. Patient agrees to CPR and intubation if in cardiac arrest.
[2021-10-22 20:10] LABS: Glucose, Whole Blood 191 mg/dL (60-115)
[2021-10-22] MEDS: Benzonatate 100 MG CAPSULE PO (20:36)
[2021-10-22] MEDS: Azithromycin 500 MG TABLET PO (20:37)
[2021-10-22] MEDS: Pregabalin 150 MG CAPSULE PO (20:37)
[2021-10-22] MEDS: Atorvastatin Calcium 40 MG TABLET PO (20:37)
[2021-10-22] MEDS: Melatonin 3 MG TABLET 6 MG PO (20:37)
[2021-10-22] MEDS: Enoxaparin Sodium 40 MG/0.4 ML SYRINGE SUBCUT (20:39)
[2021-10-23 03:14] VITALS: BP 114/57; PULSE 65; RESP 18; TEMP 36.4; O2SAT 98
[2021-10-23] MEDS: Omeprazole 20 MG CAPSULE.DR PO (06:05)
[2021-10-23] MEDS: Levothyroxine Sodium 112 MCG TABLET PO (06:05)
[2021-10-23] MEDS: methylPREDNISolone Sod Succ 40 MG/ML VIAL IVPUSH ×2 (06:05→12:16)
[2021-10-23 07:03] LABS: Basophils Percent Auto 0.1 % (0-2); Hematocrit 31.7 % (42.0-52.0); Hemoglobin 9.9 g/dl (14.0-18.0); Imm Gran Abs Auto 0.06 X10*3/uL (0.00-0.03); Imm Gran Pct Auto 0.6 % (0.0-0.4); Lymphocytes Absolute Auto 0.4 X10*3/uL (1.2-4.9); Lymphocytes Percent Auto 4.2 % (20-40); MANUAL DIFF FLAG SCAN; Mean Corpuscular HGB Conc 31.2 g/dl (31.0-36.0); Mean Corpuscular Hemoglobin 25.1 pg (27.0-33.0); Mean Corpuscular Volume 80.3 fL (80.0-98.0); Mean Platelet Volume 10.7 fL (9.4-12.4); Monocytes Absolute Auto 0.3 X10*3/uL (0.1-1.2); Neutrophils Absolute Auto 9.7 x10*3/uL (2.0-8.3); Neutrophils Percent Auto 92.1 % (45-73); Platelet Count 264 X10*3/uL (160-400); Red Blood Count 3.95 X10*6/uL (4.60-5.80); SCAN SMEAR FLAG 1; White Blood Count 10.6 X10*3/uL (4.8-10.8)
[2021-10-23 07:27] VITALS: BP 143/64; PULSE 66; RESP 18; TEMP 36.8; O2SAT 98
[2021-10-23 07:47] LABS: Alanine Aminotransferase 7 U/L (0-40); Albumin Level 3.7 g/dL (3.5-5.0); Alkaline Phosphatase 89 U/L (39-117); Anion Gap 13 (12-20); Aspartate Amino Transferase 9 U/L (5-37); Bilirubin Total < 0.2 mg/dL (0.0-1.0); Blood Urea Nitrogen 20 mg/dL (9-16); Calcium 8.5 mg/dL (8.4-10.2); Carbon Dioxide 24 mmol/L (22-29); Chloride 107 mmol/L (96-108); Creatinine Clr Calc Pharmacy 61.2; Estimated Glomerular Filt Rate > 60; Glucose Fasting 182 mg/dL (60-99); Potassium 4.5 mmol/L (3.3-5.1); Sodium 139 mmol/L (135-145); Total Protein 5.9 g/dL (6.5-8.0)
[2021-10-23] MEDS: 0.9 % Sodium Chloride Flush 3 ML SYRINGE IVFLUSH (07:47)
[2021-10-23] MEDS: Multivitamin TABLET 1 TAB PO (07:47)
[2021-10-23] MEDS: Theophylline Anhydrous ER 400 MG TAB.ER.24H PO (07:47)
[2021-10-23] MEDS: Benzonatate 100 MG CAPSULE PO (07:47)
[2021-10-23] MEDS: Pregabalin 75 MG CAPSULE PO (07:47)
[2021-10-23 07:51] LABS: Glucose, Whole Blood 128 mg/dL (60-115)
[2021-10-23 07:56] LABS: SLIDE REVIEW VERIFIED
[2021-10-23 11:17] LABS: Glucose, Whole Blood 133 mg/dL (60-115)
--- NOTE | 2021-10-23 11:42 | PM.DS ---
DS: Providers Provider Date of Service: 10/23/21 Date of admission: 10/21/21 20:25 Date of discharge: 10/23/21 Primary care physician: Luz Mccall NP Consults: 10/21/21 20:47 Consult to Pulmonology Routine Consulting Provider: Jason Patel Reason for consultation: Rec COPD exacerbation DS: Diagnosis Discharge Diagnosis (1) COPD exacerbation: Status: Acute (2) Community acquired pneumonia: Status: Acute DS: Summary Hospital Course Hospital Course: 75-year-old male with known history of COPD oxygen dependent at home presents with worsening shortness of breath over the last several days. He states he also has a productive cough of clear sputum and his inhalers are not effective. CTA done in the ER demonstrated increasing size of 2 right lung mass is suspicious for progression of malignancy; no evidence of pulmonary emboli. He was seen in consultation by pulmonology however declined CT-guided biopsy. States he will pursue this as an outpatient. Was admitted IV steroids doxycycline and nebs and continue to do well. On the day of discharge she is ambulating his room and back to baseline per patient and wishes to go home. Medically acceptable for same Time Spent with Patient Time attestation: Total time spent providing and/or coordinating discharge services: Discharge coordination time: Greater than 30 minutes Quality: Stroke Does the patient have a stroke diagnosis?: No Physical Exam Vital Signs: Vital Signs: Last Vital Signs Temp 98.2 F 10/23/21 07:27 Pulse 66 10/23/21 07:27 Resp 18 10/23/21 07:27 BP 143/64 H 10/23/21 07:27 Pulse Ox 98 10/23/21 07:27 Body Mass Index 20.4 Const: Other: No acute distress; able to speak in short sentences Resp: Other: Improved aeration to the bases; scant expiratory wheezes throughout Cardio: Other: No S4; positive S1-S2; no S3 murmurs rubs or gallops GI: Other: Soft nontender nondistended normoactive bowel sounds Extrem: Other: No edema bilaterally DS: Data Data Completed and Pending Labs on day of discharge: Laboratory Results - last 24 hr 10/22/21 10/22/21 10/22/21 12:17 16:42 18:22 WBC RBC Hgb Hct MCV MCH MCHC RDW Plt Count MPV Immature Gran % (Auto) Neut % (Auto) Lymph % (Auto) Grundy % (Auto) Eos % (Auto) Baso % (Auto) Lymph # (Auto) Grundy # (Auto) Eos # (Auto) Baso # (Auto) Abs Immat Gran (auto) Absolute Neuts (auto) Absolute Nucleated RBC Nucleated RBC % (auto) Smear Tech's Comments Sodium Potassium Chloride Carbon Dioxide Anion Gap BUN Creatinine Estim Creat Clear Calc Estimated GFR POC Glucose 179 H 188 H 138 H Fasting Glucose Calcium Total Bilirubin AST ALT Alkaline Phosphatase Total Protein Albumin 10/22/21 10/23/21 10/23/21 20:06 06:39 06:39 WBC 10.6 RBC 3.95 L Hgb 9.9 L Hct 31.7 L MCV 80.3 MCH 25.1 L MCHC 31.2 RDW 16.0 Plt Count 264 MPV 10.7 Immature Gran % (Auto) 0.6 H Neut % (Auto) 92.1 H Lymph % (Auto) 4.2 L Grundy % (Auto) 3.0 Eos % (Auto) 0.0 Baso % (Auto) 0.1 Lymph # (Auto) 0.4 L Grundy # (Auto) 0.3 Eos # (Auto) 0.0 Baso # (Auto) 0.0 Abs Immat Gran (auto) 0.06 H Absolute Neuts (auto) 9.7 H Absolute Nucleated RBC 0.000 Nucleated RBC % (auto) 0.0 Smear Tech's Comments VERIFIED Sodium 139 Potassium 4.5 Chloride 107 Carbon Dioxide 24 Anion Gap 13 BUN 20 H Creatinine 0.77 Estim Creat Clear Calc 61.2 Estimated GFR > 60 POC Glucose 191 H Fasting Glucose 182 H Calcium 8.5 Total Bilirubin < 0.2 AST 9 D ALT 7 Alkaline Phosphatase 89 Total Protein 5.9 L Albumin 3.7 10/23/21 10/23/21 07:26 11:03 WBC RBC Hgb Hct MCV MCH MCHC RDW Plt Count MPV Immature Gran % (Auto) Neut % (Auto) Lymph % (Auto) Grundy % (Auto) Eos % (Auto) Baso % (Auto) Lymph # (Auto) Grundy # (Auto) Eos # (Auto) Baso # (Auto) Abs Immat Gran (auto) Absolute Neuts (auto) Absolute Nucleated RBC Nucleated RBC % (auto) Smear Tech's Comments Sodium Potassium Chloride Carbon Dioxide Anion Gap BUN Creatinine Estim Creat Clear Calc Estimated GFR POC Glucose 128 H 133 H Fasting Glucose Calcium Total Bilirubin AST ALT Alkaline Phosphatase Total Protein Albumin Preliminary micro results at discharge 10/21/21 16:24 Blood Culture - Preliminary Blood - Venous No growth after 24 hours. 10/21/21 16:04 Blood Culture - Preliminary Blood - Venous No growth after 24 hours. Discharge Plan Discharge Patient Disposition: Home, Self-Care Discharge Diagnosis: COPD exacerbation Referrals: Luz Mccall NP [Primary Care Provider] - 2 days Discharge Medications: New doxycycline hyclate 100 mg capsule 100 mg PO BID 10 Days Qty: 20 RF: 0 prednisone 20 mg tablet 40 mg PO DAILY 5 Days Qty: 10 RF: 0 prednisone 10 mg tablet See Rx Instructions .Route .COMPLEX Qty: 45 RF: 0 doxycycline hyclate 100 mg capsule 100 mg PO BID 7 Days Qty: 14 RF: 0 Continued albuterol sulfate [Ventolin HFA] 90 mcg/actuation HFA aerosol inhaler 2 puff PO Q6H PRN (Reason: shortness of breath or wheezing) Qty: 18 RF: 3 alprazolam [Xanax] 0.5 mg tablet 0.5 mg PO ONCE Qty: 1 RF: 0 metformin 500 mg tablet 500 mg PO DAILY RF: 0 levothyroxine 112 mcg tablet 112 mcg PO DAILY@0600 RF: 0 omeprazole 20 mg capsule,delayed release(DR/EC) 20 mg PO DAILY RF: 0 simvastatin 80 mg tablet 80 mg PO BEDTIME RF: 0 prednisone 10 mg tablet 1 tab PO DAILY RF: 0 ipratropium-albuterol 0.5 mg-3 mg(2.5 mg base)/3 mL solution for nebulization 1 vial inhalation QID PRN (Reason: asthma) RF: 0 pregabalin 75 mg capsule 75 mg PO DAILY RF: 0 multivitamin Tablet 1 tab PO DAILY RF: 0 Trelegy Ellipta 200-62.5-25 mcg blister with device 1 puff inhalation DAILY RF: 0 pregabalin 75 mg capsule 150 mg PO BEDTIME RF: 0 theophylline 400 mg tablet extended release 24 hr 400 mg PO DAILY 30 Days Qty: 30 RF: 6 Discharge Orders: Discharge Order (Routine); Ordered 10/23/21 Ordered By: Adrian Javier Activity on Discharge: As tolerated Stand Alone Forms: Patient Portal Discharge page Activity Restrictions/Additional Instructions: Take your medications as prescribed. If you were prescribed antibiotics today, it is important that you take your medication to their entirety, do not skip any doses, do not finish them early. Covid negative today Doxycycline is an antibiotic that causes skin sensitivity in sunlight, avoid direct sunlight Prednisone can increase your blood sugar, please check your blood sugar frequently if it is high or uncontrollable seek medical attention. Use your inhaler as needed and nebulizer ( inhaler 2 puffs every 4-6 hours as needed, if you are using it more frequently than that you should seek medical attention) Follow-up with your primary care provider this week. Return to the emergency department with new or worsening symptoms. Such as fevers,chills, nausea, vomiting, shortness of breath, chest pain, abdominal pain, weakness. 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
--- NOTE | 2021-10-23 13:59 | MHC.CM.PN ---
IMM 10/21/21 Male 75 DX COPD he is discharged to home today with family assist and transportation.
== END 2021-10-23 13:05 | disposition home or self-care (01) | DRG 190 ==
LOC: HO.ED 16:50 → HO.EDOVER 21:12 → HO.IMC 10-22 17:18
PROVIDERS: Physician Assistant; Admitting Provider Hospitalist; Emergency Provider Emergency Medicine; PCP Nurse Practitioner Family; Visit Provider Hospitalist
DX: J44.0 Chronic obstructive pulmonary disease with (acute) lower respiratory infection (principal); J18.9 Pneumonia, unspecified organism; J44.1 Chronic obstructive pulmonary disease with (acute) exacerbation; K21.9 Gastro-esophageal reflux disease without esophagitis; E03.9 Hypothyroidism, unspecified; E11.9 Type 2 diabetes mellitus without complications; R91.1 Solitary pulmonary nodule; Z99.81 Dependence on supplemental oxygen; F17.210 Nicotine dependence, cigarettes, uncomplicated; Z20.822 Contact with and (suspected) exposure to COVID-19; E78.5 Hyperlipidemia, unspecified; Z71.6 Tobacco abuse counseling; Z79.890 Hormone replacement therapy; Z79.899 Other long term (current) drug therapy
CPT/HCPCS: 36415; 71045; 71275; 80048; 80053; 81003; 82947; 83605; 83735; 83880; 84484; 85025; 87040; 87635; 93005; 94640; 94645; 99285; J0696; J1650; J2920; J2930; J3475; Q9967

== ENCOUNTER → 2021-10-31 13:33 | Outpatient (BNVA) | payer MEDICARE, MEDICAID, SELFPAY | PROVIDERS: PCP Nurse Practitioner Family; Visit Provider Internal Medicine Pulmonary Disease | DX: J44.1 Chronic obstructive pulmonary disease with (acute) exacerbation (principal); R91.8 Other nonspecific abnormal finding of lung field | CPT/HCPCS: 99212 ==

== ENCOUNTER 2021-11-16 02:50 | Inpatient (IN) | payer MEDICARE, MEDICAID, SELFPAY ==
[2021-11-16] VITALS (8 sets, daily range): BP systolic 101–165; BP diastolic 55–84; PULSE 79–100; RESP 16–24; TEMP 36.1–36.9; O2SAT 88–97; BMI 18.4
--- NOTE | ~2021-11-16 | XR_ITS ---
EXAMINATION: XR CHEST CLINICAL INFORMATION: Shortness of breath. COMPARISON: Prior chest radiographs, the most recent on 10/21/2021. CTA chest on 10/21/2021. TECHNIQUE: Frontal view of the chest was obtained. FINDINGS: Stable cardiomediastinal and hilar contours. The thoracic aorta is tortuous as before. Right apical pleural thickening and architectural distortion at the right lung apex is stable. An 8 mm calcified nodule at the left lung base is stable. Subtle interstitial prominence throughout both lungs is not significantly increased from the comparison. No lobar consolidations, pleural effusion or pneumothorax identified. XR/XR chest 1V IMPRESSION: No acute process identified. Chronic findings as described above are not significantly changed from a comparison on 10/21/2021.
--- NOTE | ~2021-11-16 | FL_ITS ---
EXAMINATION: XR FLUOROSCOPY WITH IMAGES CLINICAL INFORMATION: Right ureteral stone COMPARISON: None. TECHNIQUE: Fluoroscopy performed by Dr. Montrell Ireland. Fluoroscopy time: 63 seconds DAP: 8.65 mGycm2 Images: 4 FINDINGS: There are 4 images obtained through the right abdomen. Initial images reveals a guidewire into the right kidney pelvis inserted retrogradely. There is some trace contrast seen in the right mid to distal ureter. The subsequent images reveals a right double ureteral stent in place FL/FL guidance in OR IMPRESSION: Fluoroscopy was provided to referring physician for a right retrograde pyelogram and intervention.
--- NOTE | ~2021-11-16 | CT_ITS ---
EXAMINATION: CT ABDOMEN AND PELVIS WITHOUT CONTRAST CLINICAL INFORMATION: Right flank pain. COMPARISON: CTA chest on 10/21/[address] abdomen on 05/22/2020 TECHNIQUE: Multidetector volumetric imaging was performed from the superior aspect of the liver through the pubic symphysis. Sagittal and coronal reformatted images were obtained on the technologist's workstation. This CT examination was performed using dose optimization techniques as appropriate, variously including the following: *Automated exposure control *Adjustment of mA and/or kV according to patient size (this includes techniques or standardized protocols for targeted exams where dose is matched to indication/reason for exam; i.e. extremities or head) *Use of iterative reconstruction technique DLP: 288 mGy-cm FINDINGS: LUNG BASES: There is a 7 mm calcified pulmonary nodule within the left lower lobe. At the base of the right lung is a spiculated 1.7 x 1.1 cm pulmonary nodule which is slightly increased in size from the comparison on 10/21/2021 when it measured up to 1.5 x 1.1 cm. LIVER, GALLBLADDER, AND BILIARY TREE: The liver is normal in size, shape, and attenuation. No focal hepatic lesion or biliary ductal dilatation is present. The gallbladder is unremarkable with no evidence of radiopaque gallstones, gallbladder wall thickening, or obvious pericholecystic inflammatory changes. PANCREAS: Mildly atrophic. SPLEEN: Unremarkable. ADRENAL GLANDS: Unremarkable. KIDNEYS AND URETERS: There is a 6 mm obstructing renal stone within the mid right ureter on series 3 image 48 which results in [id number] upstream hydroureteronephrosis. There is mild right perinephric stranding and fat stranding which tracks along the right paracolic gutter. Right-sided hydronephrosis is minimally increased from a CT abdomen and pelvis on 05/22/2021. There is no left-sided hydronephrosis. There is a 3 mm calcification adjacent to the renal pelvis on series 4 image 165 which is stable from prior exams and is likely vascular. BLADDER: There are several stones layering dependently within a mostly decompressed gallbladder. GASTROINTESTINAL TRACT: Loops of small bowel are normal in caliber. There is extensive colonic diverticulosis. There is fat stranding adjacent to the ascending colon, for example on series 4 image 353. While there is some mild stranding around the right kidney, the most significant stranding is seen surrounding the ascending colon which contains multiple diverticula raising the concern of acute diverticulitis. A 1 cm calcification associated with a loop of small bowel in the right lower quadrant is unchanged in appearance when compared to the prior exam. ABDOMINAL WALL: No significant hernia is appreciated. LYMPH NODES: Normal. VASCULAR: Moderate calcified atherosclerosis of the aorta and iliac arteries. PELVIC VISCERA: Prostatomegaly. OSSEOUS STRUCTURES: Diffuse osteopenia. A small sclerotic focus within the right sacral ala is stable. CT/CT abdomen pelvis wo con IMPRESSION: There is pericolonic fat stranding around a segment of the ascending colon which contains innumerable small diverticula. This is concerning for acute diverticulitis. No focal fluid collections are identified. No free air or evidence of perforation. There is also a 6 mm, obstructing right mid ureteral stone (series 4 image 391) causing [id number] upstream hydroureteronephrosis. There is very mild stranding around the right kidney though the most significant stranding is seen around the loop of ascending colon favoring a diagnosis of diverticulitis. A spiculated pulmonary nodule at the base of the right lung which measures up to 1.7 x 1.1 cm is slightly increased in size when compared to a CTA chest on 10/21/2021 when it measured up to 1.5 x 1.1 cm. Fleischner guidelines were followed.
[2021-11-16 03:12] LABS: Basophils Percent Auto 0.2 % (0-2); Eosinophils Absolute Auto 0.3 X10*3/uL (0.0-0.4); Eosinophils Percent Auto 2.7 % (0-4); Hematocrit 39.1 % (42.0-52.0); Hemoglobin 11.7 g/dl (14.0-18.0); Imm Gran Abs Auto 0.04 X10*3/uL (0.00-0.03); Imm Gran Pct Auto 0.4 % (0.0-0.4); Lymphocytes Percent Auto 20.8 % (20-40); MANUAL DIFF FLAG NO; Mean Corpuscular HGB Conc 29.9 g/dl (31.0-36.0); Mean Corpuscular Hemoglobin 25.1 pg (27.0-33.0); Mean Corpuscular Volume 83.7 fL (80.0-98.0); Mean Platelet Volume 9.7 fL (9.4-12.4); Monocytes Absolute Auto 0.7 X10*3/uL (0.1-1.2); Monocytes Percent Auto 7.8 % (2-11); Neutrophils Absolute Auto 6.5 x10*3/uL (2.0-8.3); Neutrophils Percent Auto 68.1 % (45-73); Platelet Count 394 X10*3/uL (160-400); Red Blood Count 4.67 X10*6/uL (4.60-5.80); Red Cell Distribution Width 16.9 % (11.0-16.0); White Blood Count 9.5 X10*3/uL (4.8-10.8)
[2021-11-16 03:29] LABS: Alanine Aminotransferase 13 U/L (0-40); Alkaline Phosphatase 106 U/L (39-117); Anion Gap 11 (12-20); Aspartate Amino Transferase 16 U/L (5-37); Bilirubin Total 0.5 mg/dL (0.0-1.0); Blood Urea Nitrogen 10 mg/dL (9-16); Calcium 9.4 mg/dL (8.4-10.2); Carbon Dioxide 33 mmol/L (22-29); Chloride 104 mmol/L (96-108); Creatinine Clr Calc Pharmacy 52.6; Estimated Glomerular Filt Rate > 60; Glucose Random 95 mg/dL (60-115); Potassium 3.9 mmol/L (3.3-5.1); Sodium 144 mmol/L (135-145); Total Protein 6.8 g/dL (6.5-8.0)
--- NOTE | 2021-11-16 07:21 | ED_ITS ---
HPI - General Adult General Chief complaint: Back Pain/Injury Stated complaint: Back pain Time Seen by Provider: 11/16/21 07:17 Source: patient Mode of arrival: ambulatory Limitations: no limitations History of Present Illness HPI narrative: 75-year-old male with a known history of COPD, oxygen dependent present for evaluation of right flank pain. Pain started 7 hours ago before arrival (unfortunately patient was seen 5 hours after he came to the ED due to high volume in the ED), pain was constant, sharp, localized to the right flank area radiated down to the right lower back, no aggravating factor, no relieving factor, never had this pain before, declined any trauma or falling, declined urinary symptoms in particular no blood in the urine, no dysuria, no frequency. Pain is gone now. Patient also known to have COPD having difficulty breathing and wheezing now. Normal bone movement no diarrhea, no rectal bleeding. Related Data Home Medications Medication Instructions Recorded Confirmed metformin 500 mg tablet 500 mg PO DAILY 09/28/20 10/21/21 levothyroxine 112 mcg tablet 112 mcg PO DAILY@0600 12/01/20 10/21/21 omeprazole 20 mg capsule,delayed 20 mg PO DAILY 12/01/20 10/21/21 release simvastatin 80 mg tablet 80 mg PO BEDTIME 07/13/21 10/21/21 ipratropium 0.5 mg-albuterol 3 mg 1 vial INHALATION QID PRN 08/06/21 10/21/21 (2.5 mg base)/3 mL nebulization soln multivitamin 1 tab PO DAILY 08/06/21 10/21/21 prednisone 10 mg tablet 1 tab PO DAILY 08/06/21 10/21/21 pregabalin 75 mg capsule 75 mg PO DAILY 08/06/21 10/21/21 fluticasone fur. 200 mcg-umeclid 1 puff INHALATION DAILY 10/21/21 10/21/21 62.5 mcg-vilant 25 mcg inhalat.powder (Trelegy Ellipta) pregabalin 75 mg capsule 150 mg PO BEDTIME 10/21/21 10/21/21 Previous Rx's Medication Instructions Recorded Ventolin HFA 90 mcg/actuation 2 puff PO Q6H PRN #18 g NS 09/17/21 aerosol inhaler (albuterol sulfate) theophylline 400 mg 400 mg PO DAILY 30 Days #30 tab 10/08/21 tablet,extended release 24 hr alprazolam 0.5 mg tablet (Xanax) 0.5 mg PO ONCE #1 tab 10/20/21 benzonatate 100 mg capsule 100 mg PO BID PRN #30 cap 10/23/21 doxycycline hyclate 100 mg capsule 100 mg PO BID 7 Days #14 cap 10/23/21 prednisone 10 mg tablet 40 mg PO DAILY 5 Days #20 tab 10/31/21 Allergies Allergy/AdvReac Type Severity Reaction Status Date / Time shellfish derived Allergy Severe ANAPHYLAXIS Verified 11/16/21 02:58 [SHELLFISH DERIVED] pollen extracts [POLLEN] Allergy Intermediate RUNNING Verified 11/16/21 02:58 NOSE, WATERY EYES, SNEEZING varenicline [VARENICLINE] AdvReac Unknown PALPITATION Verified 11/16/21 02:58 S Review of Systems Review of Systems: All other systems are reviewed and are negative Constitutional: Reports as per HPI and Reports no additional constitutional complaints Eyes: Reports as per HPI and Reports no additional eye complaints Reports system reviewed and no additional complaints, except as documented Cardiovascular: Reports as per HPI and Reports no additional cardiovascular complaints Respiratory: Reports as per HPI and Reports no additional respiratory complaints Gastrointestinal: Reports as per HPI and Reports no additional gastrointestinal complaints Genitourinary: Reports no additional female genitourinary complaints Musculoskeletal: Reports no additional musculoskeletal complaints Skin/Breast: Reports system reviewed and no additional complaints, except as docu Psychiatric: Reports no additional psychiatric complaints Endocrine: Reports no additional endocrine complaints Hematologic/Lymphatic: Reports no additional hematologic/lymphatic complaints Allergic/Immunologic: Reports no additional allergic/immunologic complaints Reports system reviewed and no additional complaints, except as documented and Reports Abnormal speech present [facility] Past Medical History Medical History Asthma Cataract Chronic respiratory failure COPD (chronic obstructive pulmonary disease) Diabetes GERD (gastroesophageal reflux disease) Hypertension Hypothyroidism Osteoarthritis Osteoporosis Oxygen dependent Sepsis Tobacco dependence Ureteral calculi Surgical History History of appendectomy Hx of cataract surgery Social History Social History Household Members: None Housing: Apartment Do you presently have visiting nurse or other home services: Yes ([employer] upstairs) Alcohol intake: never Patient Tobacco Use Status: Current everyday Tobacco user Tobacco use type: Cigarette Cigarette Packs Per Day: 0.5 Cigarettes Per Day: 5 Years Smoked: 50 Second Hand Smoke Exposure: No Advance Directives: No Advance Directives Date on File: 12/18/20 service: No Current occupational status: unemployed and retired Physical Exam Vital Signs: Vital Signs: Last Vital Signs Temp 97.0 F 11/16/21 02:52 Pulse 89 11/16/21 08:22 Resp 18 11/16/21 08:22 BP 165/59 H 11/16/21 02:52 BMI result Body Mass Index 18.4 Vital signs have been reviewed as appeared to be correct. Blood pressure normal. Heart rate normal. Respiration rate normal. Temperature normal. Oxygen saturation normal. Appearance: Alert. Oriented X3. No acute distress. Head: Normal external exam. Normocephalic. Atraumatic. No Ynag signs noted. No raccoon eyes noted Eyes: PERRLA. EOMI. Conjunctiva and sclera normal. Eyelids normal. ENT: TM's Normal. Pharynx normal. Uvula midline. Moist mucous membranes. No trismus noted. No drooling noted. No muffled voice noted. Neck: Normal inspection. Neck supple. FROM. No adenopathy. Thyroid Normal. No meningeal signs. No neck mass noted. CVS: Normal heart rate and rhythm. Heart sound normal. No murmurs noted. Pulses normal throughout. Respiratory: No respiratory distress. Diffuse expiratory wheezing with prolonged expiration no intercostal retraction. Abdomen: Soft and nontender. Bowel sounds normal in all 4 quadrants. No distention noted. No organomegaly noted. No visible injury noted. Back: No CVA tenderness. Full range of motion noted. Skin: Skin warm and dry. Normal skin color. Normal skin turgor. No rashes/lesions/lacerations noted. Extremities: No lower extremity edema. Extremities exhibit normal range of motion. Extremities nontender. Neuro: Oriented X 3. Cranial nerve exam: II-XII are grossly intact No motor deficit. No sensory deficit. Reflexes normal. Course Course Course Narrative: Assessment and plan. 75 years old male history of COPD with multiple admission for COPD exacerbation, came in with right flank pain right abdominal pain. CT revealed 6 mm mid ur eteric stone and diverticulitis of the ascending colon. 1. Bronchodilator/Solu-Medrol. 2. 6 mm mid right ureteric stone case discussed with urologist . 3. Acute ascending colon diverticulitis treated with levofloxacin and Cipro. Reevaluation(s) Reevaluation #1: Patient presented with right flank/right flank pain clinical scenario is more consistent with renal colic sepsis/infection was not expected until CT of the abdomen and pelvis was reported at 08:00 which showed diverticulitis antibiotic was then ordered with the blood culture and lactic acid. Time: 09:36 Medical Decision Making Medical Records Medical records reviewed: Yes I reviewed the patient's medical records. Lab Data Lab results reviewed: Yes I reviewed the patient's lab results. Result diagrams: 11/16/21 03:06 11/16/21 03:06 Labs: Lab Results 11/16/21 11/16/21 11/16/21 Range/Units 03:06 03:06 07:52 WBC 9.5 (4.8-10.8) X10*3/uL RBC 4.67 (4.60-5.80) X10*6/uL Hgb 11.7 L (14.0-18.0) g/dl Hct 39.1 L D (42.0-52.0) % MCV 83.7 (80.0-98.0) fL MCH 25.1 L (27.0-33.0) pg MCHC 29.9 L (31.0-36.0) g/dl RDW 16.9 H (11.0-16.0) % Plt Count 394 D (160-400) X10*3/uL MPV 9.7 (9.4-12.4) fL Immature Gran % (Auto) 0.4 (0.0-0.4) % Neut % (Auto) 68.1 (45-73) % Lymph % (Auto) 20.8 (20-40) % Bonner % (Auto) 7.8 (2-11) % Eos % (Auto) 2.7 (0-4) % Baso % (Auto) 0.2 (0-2) % Lymph # (Auto) 2.0 (1.2-4.9) X10*3/uL Bonner # (Auto) 0.7 (0.1-1.2) X10*3/uL Eos # (Auto) 0.3 (0.0-0.4) X10*3/uL Baso # (Auto) 0.0 (0.0-0.2) X10*3/uL Abs Immat Gran (auto) 0.04 H (0.00-0.03) X10*3/uL Absolute Neuts (auto) 6.5 (2.0-8.3) x10*3/uL Absolute Nucleated RBC 0.000 (0.0-0.012) X10*3/uL Nucleated RBC % (auto) 0.0 (0.0-0.2) /100WBC Sodium 144 (135-145) mmol/L Potassium 3.9 (3.3-5.1) mmol/L Chloride 104 (96-108) mmol/L Carbon Dioxide 33 H (22-29) mmol/L Anion Gap 11 L (12-20) BUN 10 (9-16) mg/dL Creatinine 0.89 (0.5-1.4) mg/dL Estim Creat Clear Calc 52.6 Estimated GFR > 60 Random Glucose 95 D (60-115) mg/dL Calcium 9.4 D (8.4-10.2) mg/dL Total Bilirubin 0.5 (0.0-1.0) mg/dL AST 16 D (5-37) U/L ALT 13 (0-40) U/L Alkaline Phosphatase 106 (39-117) U/L Total Protein 6.8 (6.5-8.0) g/dL Albumin 4.0 (3.5-5.0) g/dL Urine Color YELLOW Urine Appearance CLOUDY Urine pH 5.5 (5.0-8.0) Ur Specific Strawberry 1.025 (1.005-1.025) Urine Protein 1+ H (NEG-TRACE) MG/DL Urine Glucose (UA) NEG (NEG) MG/DL Urine Ketones NEG (NEG) MG/DL Urine Blood 3+ H (NEG) Urine Nitrite NEG (NEG) Ur Leukocyte Esterase NEG (NEG) Urine RBC TNTC H (0) /HPF Urine WBC 0-2 (0-4) /HPF Ur Squamous Epith Cells NONE /LPF Calcium Oxalate Crystal 1+ /LPF Urine Bacteria TRACE /LPF Imaging Data CT scan - abdomen: Attestation: I personally reviewed and interpreted this imaging study as follows: Radiologist's impression: There is pericolonic fat stranding around a segment of the ascending colon which contains innumerable small diverticula. This is concerning for acute diverticulitis. No focal fluid collections are identified. No free air or evidence of perforation. ? There is also a 6 mm, obstructing right mid ureteral stone (series 4 image 391) causing [id number] upstream hydroureteronephrosis. ? There is very mild stranding around the right kidney though the most significant stranding is seen around the loop of ascending colon favoring a diagnosis of diverticulitis. ? A spiculated pulmonary nodule at the base of the right lung which measures up to 1.7 x 1.1 cm is slightly increased in size when compared to a CTA chest on 10/21/2021 when it measured up to 1.5 x 1.1 cm. Discharge Plan Discharge Clinical Impression: COPD exacerbation, Diverticulitis, Right ureteral stone Patient Disposition: Admitted As Inpatient Prescriptions: No Action albuterol sulfate [Ventolin HFA] 90 mcg/actuation HFA aerosol inhaler 2 puff PO Q6H PRN (Reason: shortness of breath or wheezing) Qty: 18 RF: 3 alprazolam [Xanax] 0.5 mg tablet 0.5 mg PO ONCE Qty: 1 RF: 0 metformin 500 mg tablet 500 mg PO DAILY RF: 0 levothyroxine 112 mcg tablet 112 mcg PO DAILY@0600 RF: 0 omeprazole 20 mg capsule,delayed release(DR/EC) 20 mg PO DAILY RF: 0 simvastatin 80 mg tablet 80 mg PO BEDTIME RF: 0 prednisone 10 mg tablet 1 tab PO DAILY RF: 0 ipratropium-albuterol 0.5 mg-3 mg(2.5 mg base)/3 mL solution for nebulization 1 vial inhalation QID PRN (Reason: asthma) RF: 0 pregabalin 75 mg capsule 75 mg PO DAILY RF: 0 multivitamin Tablet 1 tab PO DAILY RF: 0 Trelegy Ellipta 200-62.5-25 mcg blister with device 1 puff inhalation DAILY RF: 0 pregabalin 75 mg capsule 150 mg PO BEDTIME RF: 0 doxycycline hyclate 100 mg capsule 100 mg PO BID 7 Days Qty: 14 RF: 0 benzonatate 100 mg capsule 100 mg PO BID PRN (Reason: cough) Qty: 30 RF: 0 theophylline 400 mg tablet extended release 24 hr 400 mg PO DAILY 30 Days Qty: 30 RF: 6 prednisone 10 mg tablet 40 mg PO DAILY 5 Days Qty: 20 RF: 0
[2021-11-16 08:03] LABS: Appearance Urine CLOUDY; Color Urine YELLOW; Glucose Urine UA NEG (NEG); Leukocyte Esterase Urine NEG (NEG); Nitrite Urine NEG (NEG); PH 5.5 (5.0-8.0); Specific Gravity - Urine 1.025 (1.005-1.025); UACC Culture Trigger NO; Urine Blood 3+ (NEG); Urine Ketones NEG (NEG); Urine Protein 1+ MG/DL (NEG-TRACE)
[2021-11-16 08:13] LABS: Bacteria Urine TRACE /LPF; Calcium Oxalate Crystals Urine 1+ /LPF; RBC Urine TNTC /HPF (0); WBC Urine 0-2 /HPF (0-4)
[2021-11-16] MEDS: Albuterol Sulfate (0.083%) 2.5 MG/3 ML VIAL.NEB INHALE (08:22)
[2021-11-16] MEDS: Albuterol/Iprat 2.5/0.5MG 3 ML AMPUL.NEB INHALE ×5 (08:22→20:35)
[2021-11-16] MEDS: methylPREDNISolone Sod Succ 125 MG/2 ML VIAL IVPUSH (09:59)
[2021-11-16] MEDS: metroNIDAZOLE 500 MG TABLET PO (10:02)
[2021-11-16] MEDS: levoFLOXacin/D5W 750 MG/150 ML PIGGYBACK 100 MG IV (10:11)
[2021-11-16 10:15] LABS: Lactic Acid 1.1 mmol/L (0.5-2.0)
[2021-11-16 10:32] LABS: COVID-19 Test Negative (Negative)
--- NOTE | 2021-11-16 10:36 | PHA.MEDREC ---
MED REC COMPLETE, NO ISSUES Pharmacy Consult ? Medication Reconciliation Pharmacy has completed the medication reconciliation.
[2021-11-16 11:56] LABS: Glucose, Whole Blood 182 mg/dL (60-115)
[2021-11-16] MEDS: Enoxaparin Sodium 40 MG/0.4 ML SYRINGE SUBCUT (12:42)
[2021-11-16] MEDS: Insulin Lispro 100 UNIT/ML 3 ML VIAL SUBCUT ×2 (12:43→16:36)
--- NOTE | 2021-11-16 12:50 | P.HPHOSP_ITS ---
History of Present Illness Date of Service: 11/16/21 Chief Complaint: Shortness of breath, back pain A 75 years old male with PMH of COPD, bronchitis, diabetes among others who presented to the hospital complaining of 1 day worsening shortness of breath associated with right-sided flank pain. The patient reports that his breathing has been worsening over the last 3 days with more wheezing, shortness of breath and dyspnea. He denies any fever, chills, chest pain or change in bowel habit. He quit smoking almost 2 weeks ago. He is using his home medications as prescribed. He decided to come to the hospital as he developed right-sided back pain since yesterday he denies any fever, urinary symptoms, hematuria, trauma or phoning. CT scan of the abdomen showed right-sided 0.6 cm stone with hydronephrosis. O2 sat was found 88% on room air. Admitted for further evaluation and treatment. Review of Systems Review of Systems: No fever, chills or weakness No chest pain, palpitation Dyspnea on exertion, shortness of breath and coughing No abdominal pain, nausea or vomiting No urinary symptoms No any rash or wounds Back pain more to the right side PMFSH Medical History Asthma Cataract Chronic respiratory failure COPD (chronic obstructive pulmonary disease) Diabetes GERD (gastroesophageal reflux disease) Hypertension Hypothyroidism Osteoarthritis Osteoporosis Oxygen dependent Sepsis Tobacco dependence Ureteral calculi Family History Other Hypertension Surgical History History of appendectomy Hx of cataract surgery Social History Household Members: None Housing: Apartment Do you presently have visiting nurse or other home services: Yes ([employer] upstairs) Alcohol intake: never Patient Tobacco Use Status: Current someday Tobacco user Tobacco use type: Cigarette Cigarette Packs Per Day: 0.5 Cigarettes Per Day: 5 Years Smoked: 50 Second Hand Smoke Exposure: No Use of substances other than those prescribed or required for medical reasons: No Advance Directives: No Advance Directives Date on File: 12/18/20 service: No Current occupational status: unemployed and retired Meds Allergies Allergy/AdvReac Type Severity Reaction Status Date / Time shellfish derived Allergy Severe ANAPHYLAXIS Verified 11/16/21 02:58 [SHELLFISH DERIVED] pollen extracts [POLLEN] Allergy Intermediate RUNNING Verified 11/16/21 02:58 NOSE, WATERY EYES, SNEEZING varenicline [VARENICLINE] AdvReac Unknown PALPITATION Verified 11/16/21 02:58 S Active Medications: Current Medications Acetaminophen (Acetaminophen 325 Mg Tablet) 650 mg PO Q6H PRN PRN Reason: Pain, Mild (Pain Scale 1-3) Albuterol Sulfate (Albuterol Sulfate (0.083%) 2.5 Mg/3 Ml Vial.Neb) 2.5 mg INHALE RQ4H PRN PRN Reason: Shortness of Breath/Wheezing Albuterol/Ipratropium (Albuterol/Iprat 2.5/0.5mg 3 Ml Ampul.Neb) 3 ml INHALE RQ4H WHILE AWAKE [facility] Last Admin: 11/16/21 12:34 Dose: Not Given Documented by: Enoxaparin Sodium (Enoxaparin Sodium 40 Mg/0.4 Ml Syringe) 40 mg SUBCUT Q24H [facility] Last Admin: 11/16/21 12:42 Dose: 40 mg Documented by: Levofloxacin (Levaquin) 500 mg in 100 mls @ 100 mls/hr IV Q24H [facility] Insulin Human Lispro (Insulin Lispro 100 Unit/Ml 3 Ml Vial) 0 unit SUBCUT QIDACHS [facility]; Protocol Last Admin: 11/16/21 12:43 Dose: 2 unit Documented by: Levothyroxine Sodium (Levothyroxine Sodium 112 Mcg Tablet) 112 mcg PO DAILY@0600 [facility] Methylprednisolone Sodium Succinate (Methylprednisolone Sod Succ 40 Mg/Ml Vial) 40 mg IVPUSH DAILY [facility] Mirtazapine (Mirtazapine 7.5 Mg Tablet) 7.5 mg PO BEDTIME [facility] Montelukast Sodium (Montelukast Sodium 10 Mg Tablet) 10 mg PO BEDTIME [facility] Omeprazole (Omeprazole 20 Mg Capsule.Dr) 20 mg PO DAILY@0630 [facility] Ondansetron HCl (Ondansetron Hcl 4 Mg/2 Ml Vial) 4 mg IVPUSH Q8H PRN PRN Reason: Nausea and Vomiting Pharmacy Consult (Consult Rx Perform Med Rec) 1 each MISCELLANE ONCE PRN PRN Reason: Consult order Pregabalin (Pregabalin 75 Mg Capsule) 75 mg PO DAILY [facility] Pregabalin (Pregabalin 150 Mg Capsule) 150 mg PO BEDTIME [facility] Sodium Chloride (0.9 % Sodium Chloride Flush 3 Ml Syringe) 3 ml IVFLUSH QSHIFT [facility] Theophylline (Theophylline Anhydrous Er 400 Mg Tab.Er.24h) 400 mg PO DAILY [facility] Home Medications Medication Instructions Recorded Confirmed Last Taken Type metformin 500 mg tablet 500 mg PO DAILY 09/28/20 11/16/21 11/15/21 History levothyroxine 112 mcg tablet 112 mcg PO DAILY@0600 12/01/20 11/16/21 11/15/21 History omeprazole 20 mg capsule,delayed 20 mg PO DAILY 12/01/20 11/16/21 11/15/21 History release simvastatin 80 mg tablet 80 mg PO BEDTIME 07/13/21 11/16/21 11/15/21 History ipratropium 0.5 mg-albuterol 3 mg 1 vial INHALATION QID PRN 08/06/21 11/16/21 10/21/21 History (2.5 mg base)/3 mL nebulization soln multivitamin 1 tab PO DAILY 08/06/21 11/16/21 11/15/21 History pregabalin 75 mg capsule 75 mg PO DAILY 08/06/21 11/16/21 10/21/21 History fluticasone fur. 200 mcg-umeclid 1 puff INHALATION DAILY 10/21/21 11/16/21 10/21/21 History 62.5 mcg-vilant 25 mcg inhalat.powder (Trelegy Ellipta) pregabalin 75 mg capsule 150 mg PO BEDTIME 10/21/21 11/16/21 10/20/21 History albuterol sulfate 90 mcg/actuation 2 puff INHALATION Q4H PRN 11/16/21 11/16/21 Unknown History aerosol inhaler (ProAir HFA) mirtazapine 7.5 mg tablet 7.5 mg PO BEDTIME 11/16/21 11/16/21 11/15/21 History montelukast 10 mg tablet 10 mg PO BEDTIME 11/16/21 11/16/21 11/15/21 History roflumilast 500 mcg tablet 500 mcg PO DAILY 11/16/21 11/16/21 11/15/21 History (Daliresp) testosterone cypionate 200 mg/mL 100 mg IM Q2W 11/16/21 11/16/21 Unknown History intramuscular kit Physical Exam Vital Signs and Narrative: Vital Signs: Last Vital Signs Temp 97.0 F 11/16/21 02:52 Pulse 99 11/16/21 10:50 Resp 20 11/16/21 10:06 BP 117/55 L 11/16/21 10:06 Pulse Ox 88 L 11/16/21 10:06 BMI result Body Mass Index 18.4 Const: Other: Constitutional : Alert, oriented, not in distress Neck : Normal inspection, Supple Cardiovascular : RRR, S1 S2, no lower extremity edema Respiratory : Decrease bilateral air entry, bilateral wheezes extensive, in mild distress Gastrointestinal: soft, lax, Normal bowel sounds, Non tender, no surgical signs Skin : Warm, Dry Neurological : Alert & oriented x3, No focal deficit Results Labs CBC and Chem 7: 11/16/21 03:06 11/16/21 03:06 Labs: Laboratory Results - last 24 hr 11/16/21 11/16/21 11/16/21 03:06 03:06 07:52 MCV 83.7 MCH 25.1 L MCHC 29.9 L RDW 16.9 H Plt Count 394 D MPV 9.7 Immature Gran % (Auto) 0.4 Neut % (Auto) 68.1 Lymph % (Auto) 20.8 [place] % (Auto) 7.8 Eos % (Auto) 2.7 Baso % (Auto) 0.2 Lymph # (Auto) 2.0 [place] # (Auto) 0.7 Eos # (Auto) 0.3 Baso # (Auto) 0.0 Abs Immat Gran (auto) 0.04 H Absolute Neuts (auto) 6.5 Absolute Nucleated RBC 0.000 Nucleated RBC % (auto) 0.0 Anion Gap 11 L Estim Creat Clear Calc 52.6 Estimated GFR > 60 POC Glucose Random Glucose 95 D Lactic Acid Calcium 9.4 D Total Bilirubin 0.5 AST 16 D ALT 13 Alkaline Phosphatase 106 Total Protein 6.8 Albumin 4.0 Urine Color YELLOW Urine Appearance CLOUDY Urine pH 5.5 Ur Specific [place] 1.025 Urine Protein 1+ H Urine Glucose (UA) NEG Urine Ketones NEG Urine Blood 3+ H Urine Nitrite NEG Ur Leukocyte Esterase NEG Urine RBC TNTC H Urine WBC 0-2 Ur Squamous Epith Cells NONE Calcium Oxalate Crystal 1+ Urine Bacteria TRACE COVID-19 ([facility]) COVID-19 Clin Com 11/16/21 11/16/21 11/16/21 09:59 10:09 11:52 MCV MCH MCHC RDW Plt Count MPV Immature Gran % (Auto) Neut % (Auto) Lymph % (Auto) [place] % (Auto) Eos % (Auto) Baso % (Auto) Lymph # (Auto) [place] # (Auto) Eos # (Auto) Baso # (Auto) Abs Immat Gran (auto) Absolute Neuts (auto) Absolute Nucleated RBC Nucleated RBC % (auto) Anion Gap Estim Creat Clear Calc Estimated GFR POC Glucose 182 H Random Glucose Lactic Acid 1.1 Calcium Total Bilirubin AST ALT Alkaline Phosphatase Total Protein Albumin Urine Color Urine Appearance Urine pH Ur Specific [place] Urine Protein Urine Glucose (UA) Urine Ketones Urine Blood Urine Nitrite Ur Leukocyte Esterase Urine RBC Urine WBC Ur Squamous Epith Cells Calcium Oxalate Crystal Urine Bacteria COVID-19 ([facility]) Negative COVID-19 Clin Com See Note Imaging Radiologist's Impressions: Impressions Abdomen/Pelvis CT 11/16/21 07:58 IMPRESSION: There is pericolonic fat stranding around a segment of the ascending colon which contains innumerable small diverticula. This is concerning for acute diverticulitis. No focal fluid collections are identified. No free air or evidence of perforation. There is also a 6 mm, obstructing right mid ureteral stone (series 4 image 391) causing [id number] upstream hydroureteronephrosis. There is very mild stranding around the right kidney though the most significant stranding is seen around the loop of ascending colon favoring a diagnosis of diverticulitis. A spiculated pulmonary nodule at the base of the right lung which measures up to 1.7 x 1.1 cm is slightly increased in size when compared to a CTA chest on 10/21/2021 when it measured up to 1.5 x 1.1 cm. Fleischner guidelines were followed. Chest X-Ray 11/16/21 10:40 IMPRESSION: No acute process identified. Chronic findings as described above are not significantly changed from a comparison on 10/21/2021. Assessment and Plan (1) COPD exacerbation: Status: Acute (2) Acute respiratory failure with hypoxia: Status: Acute (3) Right ureteral stone: Status: Acute (4) Hydronephrosis: Status: Acute A 75 years old male with PMH of COPD, bronchitis, diabetes among others w ho presented to the hospital complaining of 1 day worsening shortness of breath associated with right-sided flank pain. Acute hypoxic respiratory failure 2/2 COPD exacerbation Imaging negative for any acute infiltrates Duo nebs ATC, albuterol p.r.n. Start IV steroids Oxygen supplement, to wean as tolerated Hydronephrosis 2/2 ureteral stone Noted on CT on the right side 0.6 cm Urology involved Pain medication, supportive measures for now Diverticulitis Local, seems to be a result of irritation from the hydronephrosis No symptoms, no pain, negative exam Will hold antibiotics and monitor clinically Type 2 diabetes SSI, diabetic diet DVT PPX Lovenox Quality Stroke Does the patient have a stroke diagnosis?: No VTE Prior VTE?: No VTE Risk Level:: Medical - moderate - high VTE Device Contraindication: Treatment Not Indicated VTE Drug Contraindication: N/A - Med Ordered
[2021-11-16 16:36] LABS: Glucose, Whole Blood 217 mg/dL (60-115)
[2021-11-16] MEDS: 0.9 % Sodium Chloride Flush 3 ML SYRINGE IVFLUSH (16:37)
[2021-11-16 20:30] LABS: Glucose, Whole Blood 114 mg/dL (60-115)
[2021-11-16] MEDS: Mirtazapine 7.5 MG TABLET PO (20:56)
[2021-11-16] MEDS: Pregabalin 150 MG CAPSULE PO (20:56)
[2021-11-16] MEDS: Montelukast Sodium 10 MG TABLET PO (20:56)
[2021-11-17] VITALS (13 sets, daily range): BP systolic 120–142; BP diastolic 57–90; PULSE 67–119; RESP 15–20; TEMP 36.4–37.4; O2SAT 90–98
[2021-11-17] MEDS: Levothyroxine Sodium 112 MCG TABLET PO (06:07)
--- NOTE | 2021-11-17 06:39 | PC.NURSE ---
PATIENT SLEEPING COMFORTABLY THROUGHT THE NIGHT, GETTING UP AND AMBULATING STEADILY TO THE RESTROOM, NO DISTRESS NOTED.
[2021-11-17 07:06] LABS: Glucose, Whole Blood 109 mg/dL (60-115)
--- NOTE | 2021-11-17 07:16 | PC.NURSE ---
pt alert and oriented, skin appropriate for ethnicity, respirations even and unlabored, ls wheezing through out the bases but pt denies feeling sob, sating at 97% on room air, normal sinus on the monitor
[2021-11-17 08:22] LABS: Anion Gap 13 (12-20); Blood Urea Nitrogen 19 mg/dL (9-16); Calcium 8.7 mg/dL (8.4-10.2); Carbon Dioxide 28 mmol/L (22-29); Chloride 105 mmol/L (96-108); Creatinine Clr Calc Pharmacy 50.9; Estimated Glomerular Filt Rate > 60; Glucose Random 132 mg/dL (60-115); Potassium 4.7 mmol/L (3.3-5.1); Sodium 141 mmol/L (135-145)
[2021-11-17 08:23] LABS: Hematocrit 35.2 % (42.0-52.0); Hemoglobin 10.6 g/dl (14.0-18.0); Mean Corpuscular HGB Conc 30.1 g/dl (31.0-36.0); Mean Corpuscular Hemoglobin 24.6 pg (27.0-33.0); Mean Corpuscular Volume 81.7 fL (80.0-98.0); Mean Platelet Volume 10.7 fL (9.4-12.4); Platelet Count 345 X10*3/uL (160-400); Red Blood Count 4.31 X10*6/uL (4.60-5.80); White Blood Count 10.5 X10*3/uL (4.8-10.8)
[2021-11-17] MEDS: methylPREDNISolone Sod Succ 40 MG/ML VIAL IVPUSH (08:54)
[2021-11-17] MEDS: Omeprazole 20 MG CAPSULE.DR PO (08:54)
[2021-11-17] MEDS: Pregabalin 75 MG CAPSULE PO (08:54)
[2021-11-17] MEDS: 0.9 % Sodium Chloride Flush 3 ML SYRINGE IVFLUSH ×3 (08:54→20:57)
--- NOTE | 2021-11-17 09:07 | PC.NURSE ---
report given to Dian supervisor shearing
--- NOTE | 2021-11-17 09:51 | P.CDIC_ITS ---
CDI Concurrent Query Documentation Clarification: PHYSICIAN'S DOCUMENTATION REQUEST Date of Query: 11/17/21 0951 Patient Name: Raudel Finnegan Admit Date: 11/16/21 Dear Doctor, A review of the medical record indicates additional documentation may be needed. Please review below and update the documentation accordingly. Risk Factors/Clinical Indicators/Treatments Ed: 11/16 - Evaluation: patient presented with right flank pain clinical scenario is more consistent with renal colic sepsis/infection was not suspected until CT of the abdomen and pelvis was reported at 08:00 which showed diverticulitis, antibiotics was then ordered with the blood culture and lactic acid. LA 1.1 RR 24 WBC 9.5 Temp 97.0 Oxygen, Albuterol, Levaquin. Sepsis Systemic manifestations of infection, with 2 or more SIRS criteria which include: * Fever > 100.4?F or hypothermia < 96.8?F * Leukocytosis ? WBC > 12,000 or leukopenia, WBC < 4,000, or > 10% bands * Tachycardia- > 90 beats/minute * Tachypnea- RR > 20 breaths/minute or PaCO2 < 32mmHg Source: [employer]ck Manual 2013 Documentation should include the known or suspected organism, and the underlying infection, such as UTI or pneumonia Based on the above information and the recognized standard for sepsis, could you please clarify in the Progress Notes if this diagnoses is still accurate and reflective of the patient's condition to ensure quality of the medical record. * Sepsis is/was present and is a clinical diagnosis based on (please include this additional support in the medical record) * After study (the condition) has been ruled out * Other (please specify) * Unable to determine Use of terms such as suspected, likely, concern for, or probable (associated with a specific diagnosis that is being evaluated, monitored, or treated as if it exists) are acceptable and can be coded in the inpatient setting, when documented at the time of discharge. Thank you, Ethel Medina [facility], [facility] Extension: [phone] Please use your independent medical judgment in providing your response. THIS QUERY IS PART OF THE PERMANENT MEDICAL RECORD Provider Response: Other Other Diagnosis: No SIRS or SEPSIS
[2021-11-17] MEDS: Theophylline Anhydrous ER 400 MG TAB.ER.24H PO (09:52)
--- NOTE | 2021-11-17 11:03 | HO.PM.IMPN ---
Subjective Subjective Date of Service: 11/17/21 Interval History: the patient was seen and evaluated this morning Laying in bed, complaining of mild pain in his right low in and back Breathing improved, still wheezy No reported other overnight events. Systemic review: No fever, chills or weakness No chest pain, palpitation Shortness of breath with exertion, still wheezy No abdominal pain, nausea or vomiting Low in pain, No urinary symptoms No any rash or wounds Physical Exam Vital Signs: Vital Signs: Last Vital Signs Temp 99.4 F 11/17/21 09:58 Pulse 69 11/17/21 09:58 Resp 15 11/17/21 09:58 BP 135/63 11/17/21 09:58 Pulse Ox 95 11/17/21 09:58 BMI result Body Mass Index 18.4 Const: Other: Constitutional : Alert, oriented, not in distress Neck : Normal inspection, Supple Cardiovascular : RRR, S1 S2, no lower extremity edema Respiratory : Decrease bilateral air entry, bilateral wheezes extensive Gastrointestinal: soft, lax, Normal bowel sounds, Non tender, no surgical signs Skin : Warm, Dry Neurological : Alert & oriented x3, No focal deficit Objective Data Active Medications Acetaminophen (Acetaminophen 325 Mg Tablet) 650 mg PO Q6H PRN PRN Reason: Pain, Mild (Pain Scale 1-3) Albuterol Sulfate (Albuterol Sulfate (0.083%) 2.5 Mg/3 Ml Vial.Neb) 2.5 mg INHALE RQ4H PRN PRN Reason: Shortness of Breath/Wheezing Albuterol/Ipratropium (Albuterol/Iprat 2.5/0.5mg 3 Ml Ampul.Neb) 3 ml INHALE RQ4H WHILE AWAKE [facility] Last Admin: 11/16/21 20:35 Dose: 3 ml Documented by: HILTON Enoxaparin Sodium (Enoxaparin Sodium 40 Mg/0.4 Ml Syringe) 40 mg SUBCUT Q24H [facility] Last Admin: 11/16/21 12:42 Dose: 40 mg Documented by: ANNIKA Insulin Human Lispro (Insulin Lispro 100 Unit/Ml 3 Ml Vial) 0 unit SUBCUT QIDACHS [facility]; Protocol Last Admin: 11/17/21 07:13 Dose: Not Given Documented by: SHEILA Non-Admin Reason: poc 109 Levothyroxine Sodium (Levothyroxine Sodium 112 Mcg Tablet) 112 mcg PO DAILY@0600 [facility] Last Admin: 11/17/21 06:07 Dose: 112 mcg Documented by: KIRBY Methylprednisolone Sodium Succinate (Methylprednisolone Sod Succ 40 Mg/Ml Vial) 40 mg IVPUSH DAILY [facility] Last Admin: 11/17/21 08:54 Dose: 40 mg Documented by: SHEILA Mirtazapine (Mirtazapine 7.5 Mg Tablet) 7.5 mg PO BEDTIME [facility] Last Admin: 11/16/21 20:56 Dose: 7.5 mg Documented by: KIRBY Montelukast Sodium (Montelukast Sodium 10 Mg Tablet) 10 mg PO BEDTIME [facility] Last Admin: 11/16/21 20:56 Dose: 10 mg Documented by: KIRBY Omeprazole (Omeprazole 20 Mg Capsule.Dr) 20 mg PO DAILY@0630 [facility] Last Admin: 11/17/21 08:54 Dose: 20 mg Documented by: SHEILA Ondansetron HCl (Ondansetron Hcl 4 Mg/2 Ml Vial) 4 mg IVPUSH Q8H PRN PRN Reason: Nausea and Vomiting Pharmacy Consult (Consult Rx Perform Med Rec) 1 each MISCELLANE ONCE PRN PRN Reason: Consult order Pregabalin (Pregabalin 75 Mg Capsule) 75 mg PO DAILY [facility] Last Admin: 11/17/21 08:54 Dose: 75 mg Documented by: SHEILA Pregabalin (Pregabalin 150 Mg Capsule) 150 mg PO BEDTIME [facility] Last Admin: 11/16/21 20:56 Dose: 150 mg Documented by: KIRBY Sodium Chloride (0.9 % Sodium Chloride Flush 3 Ml Syringe) 3 ml IVFLUSH QSHIFT [facility] Last Admin: 11/17/21 08:54 Dose: 3 ml Documented by: SHEILA Theophylline (Theophylline Anhydrous Er 400 Mg Tab.Er.24h) 400 mg PO DAILY [facility] Last Admin: 11/17/21 09:52 Dose: 400 mg Documented by: DAWSON Labs CBC & Chem 7: 11/17/21 06:48 11/17/21 06:48 Labs: Laboratory Results - last 24 hr 11/16/21 11/16/21 11/16/21 11:52 16:32 20:25 MCV MCH MCHC RDW Plt Count MPV Absolute Nucleated RBC Nucleated RBC % (auto) Anion Gap Estim Creat Clear Calc Estimated GFR POC Glucose 182 H 217 H 114 Random Glucose Calcium 11/17/21 11/17/21 11/17/21 06:48 06:48 07:02 MCV 81.7 MCH 24.6 L MCHC 30.1 L RDW 17.0 H Plt Count 345 MPV 10.7 Absolute Nucleated RBC 0.000 Nucleated RBC % (auto) 0.0 Anion Gap 13 Estim Creat Clear Calc 50.9 Estimated GFR > 60 POC Glucose 109 Random Glucose 132 H D Calcium 8.7 D Assessment and Plan (1) Hydronephrosis: Status: Acute (2) Acute respiratory failure with hypoxia: Status: Acute (3) COPD exacerbation: Status: Acute Assessment and Plan: A 75 years old male with PMH of COPD, bronchitis, diabetes among others who presented to the hospital complaining of 1 day worsening shortness of breath associated with right-sided flank pain. Acute hypoxic respiratory failure 2/2 COPD exacerbation Imaging negative for any acute infiltrates Duo nebs ATC, albuterol p.r.n. Continue IV steroids Oxygen supplement, to wean as tolerated Hydronephrosis 2/2 ureteral stone Noted on CT on the right side 0.6 cm Urology to evaluate the patient Pain medication, supportive measures for now Diverticulitis Local, seems to be a result of irritation from the hydronephrosis No symptoms, no pain, negative exam Will hold antibiotics and monitor clinically Type 2 diabetes SSI, diabetic diet DVT PPX Lovenox Quality Stroke Does the patient have a stroke diagnosis?: No VTE Prior VTE?: No VTE Risk Level:: Medical - moderate - high VTE Device Contraindication: Treatment Not Indicated VTE Drug Contraindication: N/A - Med Ordered
[2021-11-17] MEDS: Albuterol/Iprat 2.5/0.5MG 3 ML AMPUL.NEB INHALE ×3 (11:33→19:59)
[2021-11-17 13:04] LABS: Glucose, Whole Blood 179 mg/dL (60-115)
--- NOTE | 2021-11-17 13:04 | PM.UROCN ---
History of Present Illness Consult details Consult date: 11/17/21 Narrative: Raudel is a 75-year-old male who presents the hospital with exacerbation of COPD and right-sided flank pain. He tells me the right-sided flank pain has been worsening. Creatinine 0.92 Imaging shows - here is a 6 mm obstructing renal stone within the mid right ureter on series 3 image 48 which results in [id number] upstream hydroureteronephrosis. There is mild right perinephric stranding and fat stranding which tracks along the right paracolic gutter. Right-sided hydronephrosis is minimally increased from a CT abdomen and pelvis on 05/22/2021. There is no left-sided hydronephrosis.? In addition to diverticulitis He has persistent right pain. There was mild hydronephrosis on prior imaging however the stone is a new finding. Based on stone location recommend intervention with ureteroscopy laser lithotripsy and stent placement Review of Systems Constitutional: Constitutional: Reports as per HPI and Reports no additional constitutional complaints Cardiovascular: Cardiovascular: Reports as per HPI and Reports no additional cardiovascular complaints Respiratory: Respiratory: Reports as per HPI and Reports no additional respiratory complaints Gastrointestinal: Gastrointestinal: Reports as per HPI and Reports no additional gastrointestinal complaints Genitourinary: Genitourinary: Reports as per HPI Musculoskeletal: Musculoskeletal: Reports no additional musculoskeletal complaints and Reports as per HPI Neurologic: Reports system reviewed and no additional complaints, except as documented and Reports as per HPI [facility] Past Medical History Medical History Asthma Cataract Chronic respiratory failure COPD (chronic obstructive pulmonary disease) Diabetes GERD (gastroesophageal reflux disease) Hypertension Hypothyroidism Osteoarthritis Osteoporosis Oxygen dependent Sepsis Tobacco dependence Ureteral calculi Family History Family History Other Hypertension Surgical History Surgical History History of appendectomy Hx of cataract surgery Social History Social History Household Members: Spouse Housing: Apartment Do you presently have visiting nurse or other home services: No Alcohol intake: never Patient Tobacco Use Status: Current someday Tobacco user Tobacco use type: Cigarette Cigarette Packs Per Day: 0.5 Cigarettes Per Day: 10.0 Years Smoked: 50 e-Cigarette/Vaping Use: Currently Using Second Hand Smoke Exposure: No Advance Directives Date on File: 12/18/20 service: No Current occupational status: unemployed and retired Meds Allergies Allergy/AdvReac Type Severity Reaction Status Date / Time shellfish derived Allergy Severe ANAPHYLAXIS Verified 11/16/21 02:58 [SHELLFISH DERIVED] pollen extracts [POLLEN] Allergy Intermediate RUNNING Verified 11/16/21 02:58 NOSE, WATERY EYES, SNEEZING varenicline [VARENICLINE] AdvReac Unknown PALPITATION Verified 11/16/21 02:58 S Active Medications: Current Medications Acetaminophen (Acetaminophen 325 Mg Tablet) 650 mg PO Q6H PRN PRN Reason: Pain, Mild (Pain Scale 1-3) Albuterol Sulfate (Albuterol Sulfate (0.083%) 2.5 Mg/3 Ml Vial.Neb) 2.5 mg INHALE RQ4H PRN PRN Reason: Shortness of Breath/Wheezing Albuterol/Ipratropium (Albuterol/Iprat 2.5/0.5mg 3 Ml Ampul.Neb) 3 ml INHALE RQ4H WHILE AWAKE [facility] Last Admin: 11/17/21 11:33 Dose: 3 ml Documented by: Enoxaparin Sodium (Enoxaparin Sodium 40 Mg/0.4 Ml Syringe) 40 mg SUBCUT Q24H [facility] Last Admin: 11/17/21 13:01 Dose: Not Given Documented by: Insulin Human Lispro (Insulin Lispro 100 Unit/Ml 3 Ml Vial) 0 unit SUBCUT QIDACHS [facility]; Protocol Last Admin: 11/17/21 13:01 Dose: Not Given Documented by: Levothyroxine Sodium (Levothyroxine Sodium 112 Mcg Tablet) 112 mcg PO DAILY@0600 [facility] Last Admin: 11/17/21 06:07 Dose: 112 mcg Documented by: Methylprednisolone Sodium Succinate (Methylprednisolone Sod Succ 40 Mg/Ml Vial) 40 mg IVPUSH DAILY [facility] Last Admin: 11/17/21 08:54 Dose: 40 mg Documented by: Mirtazapine (Mirtazapine 7.5 Mg Tablet) 7.5 mg PO BEDTIME [facility] Last Admin: 11/16/21 20:56 Dose: 7.5 mg Documented by: Montelukast Sodium (Montelukast Sodium 10 Mg Tablet) 10 mg PO BEDTIME [facility] Last Admin: 11/16/21 20:56 Dose: 10 mg Documented by: Omeprazole (Omeprazole 20 Mg Capsule.) 20 mg PO DAILY@0630 [facility] Last Admin: 11/17/21 08:54 Dose: 20 mg Documented by: Ondansetron HCl (Ondansetron Hcl 4 Mg/2 Ml Vial) 4 mg IVPUSH Q8H PRN PRN Reason: Nausea and Vomiting Pharmacy Consult (Consult Rx Perform Med Rec) 1 each MISCELLANE ONCE PRN PRN Reason: Consult order Pregabalin (Pregabalin 75 Mg Capsule) 75 mg PO DAILY [facility] Last Admin: 11/17/21 08:54 Dose: 75 mg Documented by: Pregabalin (Pregabalin 150 Mg Capsule) 150 mg PO BEDTIME [facility] Last Admin: 11/16/21 20:56 Dose: 150 mg Documented by: Sodium Chloride (0.9 % Sodium Chloride Flush 3 Ml Syringe) 3 ml IVFLUSH QSHIFT [facility] Last Admin: 11/17/21 08:54 Dose: 3 ml Documented by: Theophylline (Theophylline Anhydrous Er 400 Mg Tab.Er.24h) 400 mg PO DAILY [facility] Last Admin: 11/17/21 09:52 Dose: 400 mg Documented by: Home Medications Medication Instructions Recorded Confirmed Last Taken Type metformin 500 mg tablet 500 mg PO DAILY 09/28/20 11/16/21 11/15/21 History levothyroxine 112 mcg tablet 112 mcg PO DAILY@0600 12/01/20 11/16/21 11/15/21 History omeprazole 20 mg capsule,delayed 20 mg PO DAILY 12/01/20 11/16/21 11/15/21 History release simvastatin 80 mg tablet 80 mg PO BEDTIME 07/13/21 11/16/21 11/15/21 History ipratropium 0.5 mg-albuterol 3 mg 1 vial INHALATION QID PRN 08/06/21 11/16/21 10/21/21 History (2.5 mg base)/3 mL nebulization soln multivitamin 1 tab PO DAILY 08/06/21 11/16/21 11/15/21 History pregabalin 75 mg capsule 75 mg PO DAILY 08/06/21 11/16/21 10/21/21 History fluticasone fur. 200 mcg-umeclid 1 puff INHALATION DAILY 10/21/21 11/16/21 10/21/21 History 62.5 mcg-vilant 25 mcg inhalat.powder (Trelegy Ellipta) pregabalin 75 mg capsule 150 mg PO BEDTIME 10/21/21 11/16/21 10/20/21 History albuterol sulfate 90 mcg/actuation 2 puff INHALATION Q4H PRN 11/16/21 11/16/21 Unknown History aerosol inhaler (ProAir HFA) mirtazapine 7.5 mg tablet 7.5 mg PO BEDTIME 11/16/21 11/16/21 11/15/21 History montelukast 10 mg tablet 10 mg PO BEDTIME 11/16/21 11/16/21 11/15/21 History roflumilast 500 mcg tablet 500 mcg PO DAILY 11/16/21 11/16/21 11/15/21 History (Daliresp) testosterone cypionate 200 mg/mL 100 mg IM Q2W 11/16/21 11/16/21 Unknown History intramuscular kit Physical Exam Vital Signs: Vital Signs: Last Vital Signs Temp 98.3 F 11/17/21 11:52 Pulse 119 H 11/17/21 11:52 Resp 20 11/17/21 11:52 BP 126/62 11/17/21 11:52 Pulse Ox 96 11/17/21 11:52 BMI result Body Mass Index 18.4 Const: General: cooperative, healthy appearing, comfortable and no acute distress Orientation/consciousness: patient oriented x3 HENMT: Face and sinus: Yes normal facial exam Mouth: moist mucous membranes Neck: Neck: Yes normal visual inspection, Yes full ROM and Yes trachea midline Chest: Chest palpation & inspection: normal inspection of the chest Resp: Effort & Inspection: normal respiratory effort, able to speak in complete sentences and no respiratory distress GI: Inspection: Yes normal to inspection Back/Spine/Pelvis: Cervical Spine: normal cervical lordosis Thoracic/Lumbar Spine: thoracic and lumbar spine normal to inspection Skin: General skin exam: no rashes or lesions noted Neuro: General: patient oriented x3, tone normal and moves all extremities Extrem: General: Yes normal to inspection and Yes capillary refill normal Results Labs Result diagrams: 11/17/21 06:48 11/17/21 06:48 Labs: Abnormal lab results 11/16/21 11/17/21 11/17/21 Range/Units 16:32 06:48 06:48 RBC 4.31 L (4.60-5.80) X10*6/uL Hgb 10.6 L (14.0-18.0) g/dl Hct 35.2 L (42.0-52.0) % MCH 24.6 L (27.0-33.0) pg MCHC 30.1 L (31.0-36.0) g/dl RDW 17.0 H (11.0-16.0) % BUN 19 H D (9-16) mg/dL POC Glucose 217 H (60-115) mg/dL Random Glucose 132 H D (60-115) mg/dL Short CBC 11/17/21 Range/Units 06:48 WBC 10.5 (4.8-10.8) X10*3/uL Hgb 10.6 L (14.0-18.0) g/dl Hct 35.2 L (42.0-52.0) % Plt Count 345 (160-400) X10*3/uL BMP 11/17/21 06:48 Sodium 141 Potassium 4.7 D Chloride 105 Carbon Dioxide 28 BUN 19 H D Creatinine 0.92 Calcium 8.7 D Urine 11/16/21 Range/Units 07:52 Urine Color YELLOW Urine Appearance CLOUDY Urine pH 5.5 (5.0-8.0) Ur Specific [place] 1.025 (1.005-1.025) Urine Protein 1+ H (NEG-TRACE) MG/DL Urine Glucose (UA) NEG (NEG) MG/DL All other labs normal. Assessment and Plan (1) Hydronephrosis: Status: Acute (2) Right ureteral stone: Status: Acute Ureteroscopy We discussed the nature of the decision and reasonable alternatives for performing the above surgery. Interventions include chemical dissolution, ESWL, ureteroscopy with laser lithotripsy and stent placement, PCNL. Options such as medical therapy were discussed. The relative uncertainties and benefits related to each alternate procedure were adequately discussed. General surgical risks including, but not limited to, pain, bleeding, infection, myocardial infarction, pulmonary embolus, deep vein thrombosis and cerebrovascular accident which may result in further hospitalization were discussed. Full disclosure of the procedure as well as all major risks, benefits and complications were discussed including but not limited to damage to the urethra, bladder and kidney infection, damage to the ureter, stent migration or malposition, scarring to the renal pelvis, remnant stone fragments, subsequent stone passage with need for secondary procedures. The overall secondary procedure rate is approximately 10-15%. The success rate of the procedure was discussed. Success of the procedure in the short-term does not necessarily guarantee that long-term success will be maintained. Suitable follow up will need to be maintained. The patient showed understanding of discussion and wishes to proceed with - cystoscopy, retrograde, ureteroscopy, possible lithotripsy/stone basketing and stent on the right side Procedures Date of Service Date of Service: 11/17/21
[2021-11-17 13:16] LABS: Glucose, Whole Blood 178 mg/dL (60-115)
--- NOTE | 2021-11-17 14:07 | P.CONAN_ITS ---
Documented by User: Jeanibrahima Banks 11/17/21 14:13 HPI - Anesthesia Eval Consult details Narrative: 75 M for cysto PMFSH Active Problems Active Problems: All Active Problems (Updated 11/16/21 @ 12:55 by Nick Clemente MD) Hydronephrosis (Acute) Acute respiratory failure with hypoxia (Acute) Diverticulitis (Acute) Right ureteral stone (Acute) Tobacco dependence (Acute) Chronic respiratory failure (Acute) COPD exacerbation (Acute) COPD (chronic obstructive pulmonary disease) (Acute) COVID-19 (Acute) Pulmonary nodules (Acute) Bronchitis (Acute) Acidosis, lactic (Acute) Past Medical History Medical History Asthma Cataract Chronic respiratory failure COPD (chronic obstructive pulmonary disease) Diabetes GERD (gastroesophageal reflux disease) Hypertension Hypothyroidism Osteoarthritis Osteoporosis Oxygen dependent Sepsis Tobacco dependence Ureteral calculi Functional capacity: independent ambulation Family History Family History Other Hypertension Surgical History Surgical History History of appendectomy Hx of cataract surgery History of Problems with Anesthesia: No Social History Social History Household Members: Spouse Housing: Apartment Do you presently have visiting nurse or other home services: No Alcohol intake: never Patient Tobacco Use Status: Current someday Tobacco user Tobacco use type: Cigarette Cigarette Packs Per Day: 0.5 Cigarettes Per Day: 10.0 Years Smoked: 50 e-Cigarette/Vaping Use: Currently Using Second Hand Smoke Exposure: No Advance Directives Date on File: 12/18/20 service: No Current occupational status: unemployed and retired Meds Allergies Allergy/AdvReac Type Severity Reaction Status Date / Time shellfish derived Allergy Severe ANAPHYLAXIS Verified 11/16/21 02:58 [SHELLFISH DERIVED] pollen extracts [POLLEN] Allergy Intermediate RUNNING Verified 11/16/21 02:58 NOSE, WATERY EYES, SNEEZING varenicline [VARENICLINE] AdvReac Unknown PALPITATION Verified 11/16/21 02:58 S Active Medications: Current Medications Acetaminophen (Acetaminophen 325 Mg Tablet) 650 mg PO Q6H PRN PRN Reason: Pain, Mild (Pain Scale 1-3) Albuterol Sulfate (Albuterol Sulfate (0.083%) 2.5 Mg/3 Ml Vial.Neb) 2.5 mg INHALE RQ4H PRN PRN Reason: Shortness of Breath/Wheezing Albuterol/Ipratropium (Albuterol/Iprat 2.5/0.5mg 3 Ml Ampul.Neb) 3 ml INHALE RQ4H WHILE AWAKE FORMERLY [facility], 1928–1983 Last Admin: 11/17/21 11:33 Dose: 3 ml Documented by: Enoxaparin Sodium (Enoxaparin Sodium 40 Mg/0.4 Ml Syringe) 40 mg SUBCUT Q24H [facility], [facility]–1983 Last Admin: 11/17/21 13:01 Dose: Not Given Documented by: Insulin Human Lispro (Insulin Lispro 100 Unit/Ml 3 Ml Vial) 0 unit SUBCUT QIDACHS FORMERLY [facility], [facility]–1983; Protocol Last Admin: 11/17/21 13:01 Dose: Not Given Documented by: Levothyroxine Sodium (Levothyroxine Sodium 112 Mcg Tablet) 112 mcg PO DAILY@0600 [facility], [facility]1983 Last Admin: 11/17/21 06:07 Dose: 112 mcg Documented by: Methylprednisolone Sodium Succinate (Methylprednisolone Sod Succ 40 Mg/Ml Vial) 40 mg IVPUSH DAILY [facility], [facility]–1983 Last Admin: 11/17/21 08:54 Dose: 40 mg Documented by: Mirtazapine (Mirtazapine 7.5 Mg Tablet) 7.5 mg PO BEDTIME [facility]LY [facility], [facility]–1983 Last Admin: 11/16/21 20:56 Dose: 7.5 mg Documented by: Montelukast Sodium (Montelukast Sodium 10 Mg Tablet) 10 mg PO BEDTIME [facility]LY [facility], [facility]1983 Last Admin: 11/16/21 20:56 Dose: 10 mg Documented by: Omeprazole (Omeprazole 20 Mg Capsule.) 20 mg PO DAILY@0630 [facility], [facility]1983 Last Admin: 11/17/21 08:54 Dose: 20 mg Documented by: Ondansetron HCl (Ondansetron Hcl 4 Mg/2 Ml Vial) 4 mg IVPUSH Q8H PRN PRN Reason: Nausea and Vomiting Pharmacy Consult (Consult Rx Perform Med Rec) 1 each MISCELLANE ONCE PRN PRN Reason: Consult order Pregabalin (Pregabalin 75 Mg Capsule) 75 mg PO DAILY [facility], [facility] Last Admin: 11/17/21 08:54 Dose: 75 mg Documented by: Pregabalin (Pregabalin 150 Mg Capsule) 150 mg PO BEDTIME FOR[facility], [facility]1983 Last Admin: 11/16/21 20:56 Dose: 150 mg Documented by: Sodium Chloride (0.9 % Sodium Chloride Flush 3 Ml Syringe) 3 ml IVFLUSH QSHIFT [facility], [facility]1983 Last Admin: 11/17/21 08:54 Dose: 3 ml Documented by: Theophylline (Theophylline Anhydrous Er 400 Mg Tab.Er.24h) 400 mg PO DAILY [facility], [facility]1983 Last Admin: 11/17/21 09:52 Dose: 400 mg Documented by: Home Medications Medication Instructions Recorded Confirmed Last Taken Type metformin 500 mg tablet 500 mg PO DAILY 09/28/20 11/16/21 11/15/21 History levothyroxine 112 mcg tablet 112 mcg PO DAILY@0600 12/01/20 11/16/21 11/15/21 History omeprazole 20 mg capsule,delayed 20 mg PO DAILY 12/01/20 11/16/21 11/15/21 History release simvastatin 80 mg tablet 80 mg PO BEDTIME 07/13/21 11/16/21 11/15/21 History ipratropium 0.5 mg-albuterol 3 mg 1 vial INHALATION QID PRN 08/06/21 11/16/21 10/21/21 History (2.5 mg base)/3 mL nebulization soln multivitamin 1 tab PO DAILY 08/06/21 11/16/21 11/15/21 History pregabalin 75 mg capsule 75 mg PO DAILY 08/06/21 11/16/21 10/21/21 History fluticasone fur. 200 mcg-umeclid 1 puff INHALATION DAILY 10/21/21 11/16/21 10/21/21 History 62.5 mcg-vilant 25 mcg inhalat.powder (Trelegy Ellipta) pregabalin 75 mg capsule 150 mg PO BEDTIME 10/21/21 11/16/21 10/20/21 History albuterol sulfate 90 mcg/actuation 2 puff INHALATION Q4H PRN 11/16/21 11/16/21 Unknown History aerosol inhaler (ProAir HFA) mirtazapine 7.5 mg tablet 7.5 mg PO BEDTIME 11/16/21 11/16/21 11/15/21 History montelukast 10 mg tablet 10 mg PO BEDTIME 11/16/21 11/16/21 11/15/21 History roflumilast 500 mcg tablet 500 mcg PO DAILY 11/16/21 11/16/21 11/15/21 History (Daliresp) testosterone cypionate 200 mg/mL 100 mg IM Q2W 11/16/21 11/16/21 Unknown History intramuscular kit Exam Exam Date and Time: November 17, 2021 1407 Height,Weight and Vital Signs: Height 5 ft 5 in Weight 50.349 kg Last Vital Signs Temp 97.6 F 11/17/21 13:14 Pulse 70 11/17/21 13:14 Resp 16 11/17/21 13:14 BP 142/60 H 11/17/21 13:14 Pulse Ox 95 11/17/21 13:14 Pertinent Lab Results Pertinent Lab Results: Laboratory Tests 11/16/21 11/16/21 11/16/21 03:06 03:06 07:52 WBC 9.5 RBC 4.67 Hgb 11.7 L Hct 39.1 L D MCV 83.7 MCH 25.1 L MCHC 29.9 L RDW 16.9 H Plt Count 394 D MPV 9.7 Immature Gran % (Auto) 0.4 Neut % (Auto) 68.1 Lymph % (Auto) 20.8 [place] % (Auto) 7.8 Eos % (Auto) 2.7 Baso % (Auto) 0.2 Lymph # (Auto) 2.0 [place] # (Auto) 0.7 Eos # (Auto) 0.3 Baso # (Auto) 0.0 Abs Immat Gran (auto) 0.04 H Absolute Neuts (auto) 6.5 Absolute Nucleated RBC 0.000 Nucleated RBC % (auto) 0.0 Sodium 144 Potassium 3.9 Chloride 104 Carbon Dioxide 33 H Anion Gap 11 L BUN 10 Creatinine 0.89 Estim Creat Clear Calc 52.6 Estimated GFR > 60 POC Glucose Random Glucose 95 D Lactic Acid Calcium 9.4 D Total Bilirubin 0.5 AST 16 D ALT 13 Alkaline Phosphatase 106 Total Protein 6.8 Albumin 4.0 Urine Color YELLOW Urine Appearance CLOUDY Urine pH 5.5 Ur Specific [place] 1.025 Urine Protein 1+ H Urine Glucose (UA) NEG Urine Ketones NEG Urine Blood 3+ H Urine Nitrite NEG Ur Leukocyte Esterase NEG Urine RBC TNTC H Urine WBC 0-2 Ur Squamous Epith Cells NONE Calcium Oxalate Crystal 1+ Urine Bacteria TRACE COVID-19 (ELIO) COVID-19 Clin Com 11/16/21 11/16/2111/16/21 09:59 10:09 11:52 WBC RBC Hgb Hct MCV MCH MCHC RDW Plt Count MPV Immature Gran % (Auto) Neut % (Auto) Lymph % (Auto) [place] % (Auto) Eos % (Auto) Baso % (Auto) Lymph # (Auto) [place] # (Auto) Eos # (Auto) Baso # (Auto) Abs Immat Gran (auto) Absolute Neuts (auto) Absolute Nucleated RBC Nucleated RBC % (auto) Sodium Potassium Chloride Carbon Dioxide Anion Gap BUN Creatinine Estim Creat Clear Calc Estimated GFR POC Glucose 182 H Random Glucose Lactic Acid 1.1 Calcium Total Bilirubin AST ALT Alkaline Phosphatase Total Protein Albumin Urine Color Urine Appearance Urine pH Ur Specific [place] Urine Protein Urine Glucose (UA) Urine Ketones Urine Blood Urine Nitrite Ur Leukocyte Esterase Urine RBC Urine WBC Ur Squamous Epith Cells Calcium Oxalate Crystal Urine Bacteria COVID-19 (ELIO) Negative COVID-19 Clin Com See Note 11/16/21 11/16/21 11/17/21 16:32 20:25 06:48 WBC 10.5 RBC 4.31 L Hgb 10.6 L Hct 35.2 L MCV 81.7 MCH 24.6 L MCHC 30.1 L RDW 17.0 H Plt Count 345 MPV 10.7 Immature Gran % (Auto) Neut % (Auto) Lymph % (Auto) [place] % (Auto) Eos % (Auto) Baso % (Auto) Lymph # (Auto) [place] # (Auto) Eos # (Auto) Baso # (Auto) Abs Immat Gran (auto) Absolute Neuts (auto) Absolute Nucleated RBC 0.000 Nucleated RBC % (auto) 0.0 Sodium Potassium Chloride Carbon Dioxide Anion Gap BUN Creatinine Estim Creat Clear Calc Estimated GFR POC Glucose 217 H 114 Random Glucose Lactic Acid Calcium Total Bilirubin AST ALT Alkaline Phosphatase Total Protein Albumin Urine Color Urine Appearance Urine pH Ur Specific [place] Urine Protein Urine Glucose (UA) Urine Ketones Urine Blood Urine Nitrite Ur Leukocyte Esterase Urine RBC Urine WBC Ur Squamous Epith Cells Calcium Oxalate Crystal Urine Bacteria COVID-19 (ELIO) COVID-19 Clin Com 11/17/21 11/17/21 11/17/21 06:48 07:02 13:00 WBC RBC Hgb Hct MCV MCH MCHC RDW Plt Count MPV Immature Gran % (Auto) Neut % (Auto) Lymph % (Auto) [place] % (Auto) Eos % (Auto) Baso % (Auto) Lymph # (Auto) [place] # (Auto) Eos # (Auto) Baso # (Auto) Abs Immat Gran (auto) Absolute Neuts (auto) Absolute Nucleated RBC Nucleated RBC % (auto) Sodium 141 Potassium 4.7 D Chloride 105 Carbon Dioxide 28 Anion Gap 13 BUN 19 H D Creatinine 0.92 Estim Creat Clear Calc 50.9 Estimated GFR > 60 POC Glucose 109 179 H Random Glucose 132 H D Lactic Acid Calcium 8.7 D Total Bilirubin AST ALT Alkaline Phosphatase Total Protein Albumin Urine Color Urine Appearance Urine pH Ur Specific [place] Urine Protein Urine Glucose (UA) Urine Ketones Urine Blood Urine Nitrite Ur Leukocyte Esterase Urine RBC Urine WBC Ur Squamous Epith Cells Calcium Oxalate Crystal Urine Bacteria COVID-19 (ELIO) COVID-19 NUOFFER 11/17/21 13:13 WBC RBC Hgb Hct MCV MCH MCHC RDW Plt Count MPV Immature Gran % (Auto) Neut % (Auto) Lymph % (Auto) [place] % (Auto) Eos % (Auto) Baso % (Auto) Lymph # (Auto) [place] # (Auto) Eos # (Auto) Baso # (Auto) Abs Immat Gran (auto) Absolute Neuts (auto) Absolute Nucleated RBC Nucleated RBC % (auto) Sodium Potassium Chloride Carbon Dioxide Anion Gap BUN Creatinine Estim Creat Clear Calc Estimated GFR POC Glucose 178 H Random Glucose Lactic Acid Calcium Total Bilirubin AST ALT Alkaline Phosphatase Total Protein Albumin Urine Color Urine Appearance Urine pH Ur Specific [place] Urine Protein Urine Glucose (UA) Urine Ketones Urine Blood Urine Nitrite Ur Leukocyte Esterase Urine RBC Urine WBC Ur Squamous Epith Cells Calcium Oxalate Crystal Urine Bacteria COVID-19 (ELIO) COVID-19 [employer] Com Assessment and Plan Final Anesthetic Review History of Problems with Anesthesia: No Documented by User: Maricruz Ellis MD 11/18/21 11:55 [facility] Past Medical History Medical History Asthma Cataract Chronic respiratory failure COPD (chronic obstructive pulmonary disease) Diabetes GERD (gastroesophageal reflux disease) Hypertension Hypothyroidism Osteoarthritis Osteoporosis Oxygen dependent Sepsis Tobacco dependence Ureteral calculi Family History Family History Other Hypertension Surgical History Surgical History History of appendectomy Hx of cataract surgery Social History Social History Household Members: Spouse Housing: Apartment Do you presently have visiting nurse or other home services: No Alcohol intake: never Patient Tobacco Use Status: Current someday Tobacco user Tobacco use type: Cigarette Cigarette Packs Per Day: 0.5 Cigarettes Per Day: 10.0 Years Smoked: 50 e-Cigarette/Vaping Use: Currently Using Second Hand Smoke Exposure: No Advance Directives Date on File: 12/18/20 service: No Current occupational status: unemployed and retired Meds Allergies Allergy/AdvReac Type Severity Reaction Status Date / Time shellfish derived Allergy Severe ANAPHYLAXIS Verified 11/16/21 02:58 [SHELLFISH DERIVED] pollen extracts [POLLEN] Allergy Intermediate RUNNING Verified 11/16/21 02:58 NOSE, WATERY EYES, SNEEZING varenicline [VARENICLINE] AdvReac Unknown PALPITATION Verified 11/16/21 02:58 S Home Medications Medication Instructions Recorded Confirmed Last Taken Type metformin 500 mg tablet 500 mg PO DAILY 09/28/20 11/16/21 11/15/21 History levothyroxine 112 mcg tablet 112 mcg PO DAILY@0600 12/01/20 11/16/21 11/15/21 History omeprazole 20 mg capsule,delayed 20 mg PO DAILY 12/01/20 11/16/21 11/15/21 History release simvastatin 80 mg tablet 80 mg PO BEDTIME 07/13/21 11/16/21 11/15/21 History ipratropium 0.5 mg-albuterol 3 mg 1 vial INHALATION QID PRN 08/06/21 11/16/21 10/21/21 History (2.5 mg base)/3 mL nebulization soln multivitamin 1 tab PO DAILY 08/06/21 11/16/21 11/15/21 History pregabalin 75 mg capsule 75 mg PO DAILY 08/06/21 11/16/21 10/21/21 History fluticasone fur. 200 mcg-umeclid 1 puff INHALATION DAILY 10/21/21 11/16/21 10/21/21 History 62.5 mcg-vilant 25 mcg inhalat.powder (Trelegy Ellipta) pregabalin 75 mg capsule 150 mg PO BEDTIME 10/21/21 11/16/21 10/20/21 History albuterol sulfate 90 mcg/actuation 2 puff INHALATION Q4H PRN 11/16/21 11/16/21 Unknown History aerosol inhaler (ProAir HFA) mirtazapine 7.5 mg tablet 7.5 mg PO BEDTIME 11/16/21 11/16/21 11/15/21 History montelukast 10 mg tablet 10 mg PO BEDTIME 11/16/21 11/16/21 11/15/21 History roflumilast 500 mcg tablet 500 mcg PO DAILY 11/16/21 11/16/21 11/15/21 History (Daliresp) testosterone cypionate 200 mg/mL 100 mg IM Q2W 11/16/21 11/16/21 Unknown History intramuscular kit Exam Pertinent Lab Results Pertinent Lab Results: Laboratory Tests 11/16/21 11/16/21 11/16/21 03:06 03:06 07:52 WBC 9.5 RBC 4.67 Hgb 11.7 L Hct 39.1 L D MCV 83.7 MCH 25.1 L MCHC 29.9 L RDW 16.9 H VC Plt Count 394 D MPV 9.7 Immature Gran % (Auto) 0.4 Neut % (Auto) 68.1 Lymph % (Auto) 20.8 [place] % (Auto) 7.8 Eos % (Auto) 2.7 Baso % (Auto) 0.2 Lymph # (Auto) 2.0 [place] # (Auto) 0.7 Eos # (Auto) 0.3 Baso # (Auto) 0.0 Abs Immat Gran (auto) 0.04 H Absolute Neuts (auto) 6.5 Absolute Nucleated RBC 0.000 Nucleated RBC % (auto) 0.0 Sodium 144 Potassium 3.9 Chloride 104 Carbon Dioxide 33 H Anion Gap 11 L BUN 10 Creatinine 0.89 Estim Creat Clear Calc 52.6 Estimated GFR > 60 POC Glucose Random Glucose 95 D Lactic Acid Calcium 9.4 D Total Bilirubin 0.5 AST 16 D ALT 13 Alkaline Phosphatase 106 Total Protein 6.8 Albumin 4.0 Urine Color YELLOW Urine Appearance CLOUDY Urine pH 5.5 Ur Specific [place] 1.025 Urine Protein 1+ H Urine Glucose (UA) NEG Urine Ketones NEG Urine Blood 3+ H Urine Nitrite NEG Ur Leukocyte Esterase NEG Urine RBC TNTC H Urine WBC 0-2 Ur Squamous Epith Cells NONE Calcium Oxalate Crystal 1+ Urine Bacteria TRACE COVID-19 (ELIO) COVID-19 Clin Com 11/16/21 11/16/21 11/16/21 09:59 10:09 11:52 WBC RBC Hgb Hct MCV MCH MCHC RDW Plt Count MPV Immature Gran % (Auto) Neut % (Auto) Lymph % (Auto) [place] % (Auto) Eos % (Auto) Baso % (Auto) Lymph # (Auto) [place] # (Auto) Eos # (Auto) Baso # (Auto) Abs Immat Gran (auto) Absolute Neuts (auto) Absolute Nucleated RBC Nucleated RBC % (auto) Sodium Potassium Chloride Carbon Dioxide Anion Gap BUN Creatinine Estim Creat Clear Calc Estimated GFR POC Glucose 182 H Random Glucose Lactic Acid 1.1 Calcium Total Bilirubin AST ALT Alkaline Phosphatase Total Protein Albumin Urine Color Urine Appearance Urine pH Ur Specific [place] Urine Protein Urine Glucose (UA) Urine Ketones Urine Blood Urine Nitrite Ur Leukocyte Esterase Urine RBC Urine WBC Ur Squamous Epith Cells Calcium Oxalate Crystal Urine Bacteria COVID-19 (ELIO) Negative COVID-19 Clin Com See Note 11/16/21 11/16/21 11/17/21 16:32 20:25 06:48 WBC 10.5 RBC 4.31 L Hgb 10.6 L Hct 35.2 L MCV 81.7 MCH 24.6 L MCHC 30.1 L RDW 17.0 H Plt Count 345 MPV 10.7 Immature Gran % (Auto) Neut % (Auto) Lymph % (Auto) [place] % (Auto) Eos % (Auto) Baso % (Auto) Lymph # (Auto) [place] # (Auto) Eos # (Auto) Baso # (Auto) Abs Immat Gran (auto) Absolute Neuts (auto) Absolute Nucleated RBC 0.000 Nucleated RBC % (auto) 0.0 Sodium Potassium Chloride Carbon Dioxide Anion Gap BUN Creatinine Estim Creat Clear Calc Estimated GFR POC Glucose 217 H 114 Random Glucose Lactic Acid Calcium Total Bilirubin AST ALT Alkaline Phosphatase Total Protein Albumin Urine Color Urine Appearance Urine pH Ur Specific [place] Urine Protein Urine Glucose (UA) Urine Ketones Urine Blood Urine Nitrite Ur Leukocyte Esterase Urine RBC Urine WBC Ur Squamous Epith Cells Calcium Oxalate Crystal Urine Bacteria COVID-19 (ELIO) COVID-19 [employer] Com 11/17/21 11/17/21 11/17/21 06:48 07:02 13:00 WBC RBC Hgb Hct MCV MCH MCHC RDW Plt Count MPV Immature Gran % (Auto) Neut % (Auto) Lymph % (Auto) [place] % (Auto) Eos % (Auto) Baso % (Auto) Lymph # (Auto) [place] # (Auto) Eos # (Auto) Baso # (Auto) Abs Immat Gran (auto) Absolute Neuts (auto) Absolute Nucleated RBC Nucleated RBC % (auto) Sodium 141 Potassium 4.7 D Chloride 105 Carbon Dioxide 28 Anion Gap 13 BUN 19 H D Creatinine 0.92 Estim Creat Clear Calc 50.9 Estimated GFR > 60 POC Glucose 109 179 H Random Glucose 132 H D Lactic Acid Calcium 8.7 D Total Bilirubin AST ALT Alkaline Phosphatase Total Protein Albumin Urine Color Urine Appearance Urine pH Ur Specific [place] Urine Protein Urine Glucose (UA) Urine Ketones Urine Blood Urine Nitrite Ur Leukocyte Esterase Urine RBC Urine WBC Ur Squamous Epith Cells Calcium Oxalate Crystal Urine Bacteria COVID-19 (ELIO) COVID-19 [employer] Com 11/17/21 13:13 WBC RBC Hgb Hct MCV MCH MCHC RDW Plt Count MPV Immature Gran % (Auto) Neut % (Auto) Lymph % (Auto) [place] % (Auto) Eos % (Auto) Baso % (Auto) Lymph # (Auto) [place] # (Auto) Eos # (Auto) Baso # (Auto) Abs Immat Gran (auto) Absolute Neuts (auto) Absolute Nucleated RBC Nucleated RBC % (auto) Sodium Potassium Chloride Carbon Dioxide Anion Gap BUN Creatinine Estim Creat Clear Calc Estimated GFR POC Glucose 178 H Random Glucose Lactic Acid Calcium Total Bilirubin AST ALT Alkaline Phosphatase Total Protein Albumin Urine Color Urine Appearance Urine pH Ur Specific [place] Urine Protein Urine Glucose (UA) Urine Ketones Urine Blood Urine Nitrite Ur Leukocyte Esterase Urine RBC Urine WBC Ur Squamous Epith Cells Calcium Oxalate Crystal Urine Bacteria COVID-19 (ELIO) COVID-19 [employer] Com Airway Mallampati Class: I (Edentulous) TM Dist: >3cm Neck ROM: Full Loose/Missing/Broken Teeth: Yes, Upper and Lower Heart: RRR Lungs: wheezing throughout Assessment and Plan Assessment Anesthesia Assessment: Anesthesia Plan Discussed and Chart Reviewed Final Anesthetic Review NPO: Yes ASA Class: III Final Preanesthetic Review: Meds/Allgs Chart Reviewed, Consent Obtained/Reviewed and Anes Risks/Benef Reviewed Patient Risk: Intermediate Procedure Risk: Low Anesthetic Plan Anesthetic Plan: GA Disposition: Standard PACU
--- NOTE | 2021-11-17 15:41 | PM.UROPN ---
Subjective Subjective Date of Service: 11/17/21 Interval history: Procedure cancel today and postponed till tomorrow Patient had more breakfast then he had informed me There are other emergent cases to run in the operating room Physical Exam Vital Signs: Vital Signs: Last Vital Signs Temp 97.6 F 11/17/21 13:14 Pulse 70 11/17/21 14:59 Resp 16 11/17/21 14:59 BP 142/60 H 11/17/21 13:14 Pulse Ox 95 11/17/21 13:14 BMI result Body Mass Index 18.4 Const: General: cooperative, healthy appearing, comfortable and no acute distress Orientation/consciousness: patient oriented x3 HENMT: Face and sinus: Yes normal facial exam Mouth: moist mucous membranes Neck: Neck: Yes normal visual inspection, Yes full ROM and Yes trachea midline Chest: Chest palpation & inspection: normal inspection of the chest Resp: Effort & Inspection: normal respiratory effort, able to speak in complete sentences and no respiratory distress GI: Inspection: Yes normal to inspection Back/Spine/Pelvis: Cervical Spine: normal cervical lordosis Thoracic/Lumbar Spine: thoracic and lumbar spine normal to inspection Skin: General skin exam: no rashes or lesions noted Neuro: General: patient oriented x3, tone normal and moves all extremities Extrem: General: Yes normal to inspection and Yes capillary refill normal Urology Results Labs CBC & Chem 7: 11/17/21 06:48 11/17/21 06:48 Labs: Laboratory Results - last 24 hr 11/16/21 11/16/21 11/17/21 16:32 20:25 06:48 WBC 10.5 RBC 4.31 L Hgb 10.6 L Hct 35.2 L MCV 81.7 MCH 24.6 L MCHC 30.1 L RDW 17.0 H Plt Count 345 MPV 10.7 Absolute Nucleated RBC 0.000 Nucleated RBC % (auto) 0.0 Sodium Potassium Chloride Carbon Dioxide Anion Gap BUN Creatinine Estim Creat Clear Calc Estimated GFR POC Glucose 217 H 114 Random Glucose Calcium 11/17/21 11/17/21 11/17/21 06:48 07:02 13:00 WBC RBC Hgb Hct MCV MCH MCHC RDW Plt Count MPV Absolute Nucleated RBC Nucleated RBC % (auto) Sodium 141 Potassium 4.7 D Chloride 105 Carbon Dioxide 28 Anion Gap 13 BUN 19 H D Creatinine 0.92 Estim Creat Clear Calc 50.9 Estimated GFR > 60 POC Glucose 109 179 H Random Glucose 132 H D Calcium 8.7 D 11/17/21 13:13 WBC RBC Hgb Hct MCV MCH MCHC RDW Plt Count MPV Absolute Nucleated RBC Nucleated RBC % (auto) Sodium Potassium Chloride Carbon Dioxide Anion Gap BUN Creatinine Estim Creat Clear Calc Estimated GFR POC Glucose 178 H Random Glucose Calcium Progress Note: A&P Assessment and plan (1) Hydronephrosis: Status: Acute Assessment and Plan: Schedule for tomorrow Fall Risk Details Current Medications: Current Medications Acetaminophen (Acetaminophen 325 Mg Tablet) 650 mg PO Q6H PRN PRN Reason: Pain, Mild (Pain Scale 1-3) Albuterol Sulfate (Albuterol Sulfate (0.083%) 2.5 Mg/3 Ml Vial.Neb) 2.5 mg INHALE RQ4H PRN PRN Reason: Shortness of Breath/Wheezing Albuterol/Ipratropium (Albuterol/Iprat 2.5/0.5mg 3 Ml Ampul.Neb) 3 ml INHALE RQ4H WHILE AWAKE [facility] Last Admin: 11/17/21 14:58 Dose: 3 ml Documented by: Enoxaparin Sodium (Enoxaparin Sodium 40 Mg/0.4 Ml Syringe) 40 mg SUBCUT Q24H [facility] Last Admin: 11/17/21 13:01 Dose: Not Given Documented by: Insulin Human Lispro (Insulin Lispro 100 Unit/Ml 3 Ml Vial) 0 unit SUBCUT QIDACHS [facility]; Protocol Last Admin: 11/17/21 13:01 Dose: Not Given Documented by: Levothyroxine Sodium (Levothyroxine Sodium 112 Mcg Tablet) 112 mcg PO DAILY@0600 [facility] Last Admin: 11/17/21 06:07 Dose: 112 mcg Documented by: Methylprednisolone Sodium Succinate (Methylprednisolone Sod Succ 40 Mg/Ml Vial) 40 mg IVPUSH DAILY [facility] Last Admin: 11/17/21 08:54 Dose: 40 mg Documented by: Mirtazapine (Mirtazapine 7.5 Mg Tablet) 7.5 mg PO BEDTIME [facility] Last Admin: 11/16/21 20:56 Dose: 7.5 mg Documented by: Montelukast Sodium (Montelukast Sodium 10 Mg Tablet) 10 mg PO BEDTIME [facility] Last Admin: 11/16/21 20:56 Dose: 10 mg Documented by: Omeprazole (Omeprazole 20 Mg Capsule.) 20 mg PO DAILY@0630 [facility] Last Admin: 11/17/21 08:54 Dose: 20 mg Documented by: Ondansetron HCl (Ondansetron Hcl 4 Mg/2 Ml Vial) 4 mg IVPUSH Q8H PRN PRN Reason: Nausea and Vomiting Pharmacy Consult (Consult Rx Perform Med Rec) 1 each MISCELLANE ONCE PRN PRN Reason: Consult order Pregabalin (Pregabalin 75 Mg Capsule) 75 mg PO DAILY [facility] Last Admin: 11/17/21 08:54 Dose: 75 mg Documented by: Pregabalin (Pregabalin 150 Mg Capsule) 150 mg PO BEDTIME [facility] Last Admin: 11/16/21 20:56 Dose: 150 mg Documented by: Sodium Chloride (0.9 % Sodium Chloride Flush 3 Ml Syringe) 3 ml IVFLUSH QSHIFT [facility] Last Admin: 11/17/21 08:54 Dose: 3 ml Documented by: Theophylline (Theophylline Anhydrous Er 400 Mg Tab.Er.24h) 400 mg PO DAILY [facility] Last Admin: 11/17/21 09:52 Dose: 400 mg Documented by: Time Spent With Patient Time: Total time spent is greater than 50% in coordination of care (as documented) at patient's floor/unit and/or counseling patient: Time with patient: less than 15 minutes No Severe Sepsis: No Severe Sepsis Progress Note: Quality Stroke Does the patient have a stroke diagnosis?: No
--- NOTE | 2021-11-17 15:52 | MHC.CM.PN ---
IMM 11/17/21, EMR REVIEWED, PT ADMITTED W/ARF S/T COPD EXAC AND HYRDRONEPHROSIS W/R UTERAL STONE, CM MET W/PT WHO IS A&O, PT REPORTS HE LIVES ALONE, HAS A NEBULIZER AND CANE FOR DME, PT HAS NO HOME SERVICES AND DENIES NEED FOR AND DECLINES THEM =, PT REPORTS HER SISTER LIVES NEAR HIM AND ALWAYS HELPS HIM IF NECESSARY, PT VERIFIES PCP PARISA HERNANDEZ AND HCP ON FILE FROM PREVIOUS ADMISSION. PT ALSO REPORTS RECEIVING TWO PFIZER VACCINES W/2ND DOSE IN 2020. D/C PLAN: HOME NO SERVICES, SISTER FOR TRANSPORT.
[2021-11-17 16:35] LABS: Glucose, Whole Blood 225 mg/dL (60-115)
[2021-11-17] MEDS: Insulin Lispro 100 UNIT/ML 3 ML VIAL SUBCUT ×2 (16:45→20:57)
[2021-11-17 20:53] LABS: Glucose, Whole Blood 224 mg/dL (60-115)
[2021-11-17] MEDS: Mirtazapine 7.5 MG TABLET PO (20:57)
[2021-11-17] MEDS: Montelukast Sodium 10 MG TABLET PO (20:57)
[2021-11-17] MEDS: Pregabalin 150 MG CAPSULE PO (20:57)
[2021-11-18] VITALS (15 sets, daily range): BP systolic 126–151; BP diastolic 56–78; PULSE 63–85; RESP 14–19; TEMP 36.2–37.1; O2SAT 93–1000
[2021-11-18 06:28] LABS: Anion Gap 10 (12-20); Blood Urea Nitrogen 18 mg/dL (9-16); Calcium 8.8 mg/dL (8.4-10.2); Carbon Dioxide 32 mmol/L (22-29); Chloride 103 mmol/L (96-108); Creatinine Clr Calc Pharmacy 58.5; Estimated Glomerular Filt Rate > 60; Glucose Random 105 mg/dL (60-115); Potassium 4.4 mmol/L (3.3-5.1); Sodium 141 mmol/L (135-145)
[2021-11-18 07:38] LABS: Glucose, Whole Blood 102 mg/dL (60-115)
[2021-11-18] MEDS: Albuterol/Iprat 2.5/0.5MG 3 ML AMPUL.NEB INHALE ×2 (07:50→20:59)
[2021-11-18] MEDS: 0.9 % Sodium Chloride Flush 3 ML SYRINGE IVFLUSH ×2 (08:55→16:25)
[2021-11-18] MEDS: methylPREDNISolone Sod Succ 40 MG/ML VIAL IVPUSH (08:55)
--- NOTE | 2021-11-18 10:29 | HO.PM.IMPN ---
Subjective Subjective Date of Service: 11/18/21 Interval History: the patient was seen and evaluated this morning Laying in bed, complaining of mild pain in his right low in and back Breathing improved, still wheezy No reported other overnight events. Systemic review: No fever, chills or weakness No chest pain, palpitation Shortness of breath with exertion, still wheezy No abdominal pain, nausea or vomiting Low in pain, No urinary symptoms No any rash or wounds Physical Exam Vital Signs: Vital Signs: Last Vital Signs Temp 97.2 F 11/18/21 07:11 Pulse 67 11/18/21 07:52 Resp 16 11/18/21 07:52 BP 137/68 11/18/21 07:11 Pulse Ox 95 11/18/21 07:11 BMI result Body Mass Index 18.4 Const: Other: Constitutional : Alert, oriented, not in distress Neck : Normal inspection, Supple Cardiovascular : RRR, S1 S2, no lower extremity edema Respiratory : Decrease bilateral air entry, bilateral wheezes extensive Gastrointestinal: soft, lax, Normal bowel sounds, Non tender, no surgical signs Skin : Warm, Dry Neurological : Alert & oriented x3, No focal deficit Objective Data Active Medications Acetaminophen (Acetaminophen 325 Mg Tablet) 650 mg PO Q6H PRN PRN Reason: Pain, Mild (Pain Scale 1-3) Albuterol Sulfate (Albuterol Sulfate (0.083%) 2.5 Mg/3 Ml Vial.Neb) 2.5 mg INHALE RQ4H PRN PRN Reason: Shortness of Breath/Wheezing Albuterol/Ipratropium (Albuterol/Iprat 2.5/0.5mg 3 Ml Ampul.Neb) 3 ml INHALE RQ4H WHILE AWAKE [facility] Last Admin: 11/18/21 07:50 Dose: 3 ml Documented by: AMINATA Enoxaparin Sodium (Enoxaparin Sodium 40 Mg/0.4 Ml Syringe) 40 mg SUBCUT Q24H [facility] Last Admin: 11/17/21 13:01 Dose: Not Given Documented by: DAWSON Non-Admin Reason: pre op Insulin Human Lispro (Insulin Lispro 100 Unit/Ml 3 Ml Vial) 0 unit SUBCUT QIDACHS [facility]; Protocol Last Admin: 11/18/21 08:41 Dose: Not Given Documented by: OSVALDO Non-Admin Reason: No Insulin Coverage Levothyroxine Sodium (Levothyroxine Sodium 112 Mcg Tablet) 112 mcg PO DAILY@0600 [facility] Last Admin: 11/18/21 05:28 Dose: Not Given Documented by: LOUISE Non-Admin Reason: NPO Methylprednisolone Sodium Succinate (Methylprednisolone Sod Succ 40 Mg/Ml Vial) 40 mg IVPUSH DAILY [facility] Last Admin: 11/18/21 08:55 Dose: 40 mg Documented by: OSVALDO Mirtazapine (Mirtazapine 7.5 Mg Tablet) 7.5 mg PO BEDTIME [facility] Last Admin: 11/17/21 20:57 Dose: 7.5 mg Documented by: LOUISE Montelukast Sodium (Montelukast Sodium 10 Mg Tablet) 10 mg PO BEDTIME [facility] Last Admin: 11/17/21 20:57 Dose: 10 mg Documented by: LOUISE Omeprazole (Omeprazole 20 Mg Capsule.Dr) 20 mg PO DAILY@0630 [facility] Last Admin: 11/18/21 05:30 Dose: Not Given Documented by: LOUISE Non-Admin Reason: NPO Ondansetron HCl (Ondansetron Hcl 4 Mg/2 Ml Vial) 4 mg IVPUSH Q8H PRN PRN Reason: Nausea and Vomiting Pharmacy Consult (Consult Rx Perform Med Rec) 1 each MISCELLANE ONCE PRN PRN Reason: Consult order Pregabalin (Pregabalin 75 Mg Capsule) 75 mg PO DAILY [facility] Last Admin: 11/18/21 08:42 Dose: Not Given Documented by: OSVALDO Non-Admin Reason: NPO Pregabalin (Pregabalin 150 Mg Capsule) 150 mg PO BEDTIME [facility] Last Admin: 11/17/21 20:57 Dose: 150 mg Documented by: LOUISE Sodium Chloride (0.9 % Sodium Chloride Flush 3 Ml Syringe) 3 ml IVFLUSH QSHIFT [facility] Last Admin: 11/18/21 08:55 Dose: 3 ml Documented by: OSVALDO Theophylline (Theophylline Anhydrous Er 400 Mg Tab.Er.24h) 400 mg PO DAILY [facility] Last Admin: 11/18/21 08:42 Dose: Not Given Documented by: OSVALDO Non-Admin Reason: NPO Labs CBC & Chem 7: 11/17/21 06:48 11/18/21 05:08 Labs: Laboratory Results - last 24 hr 1211/17/21 11/17/21 13:00 13:13 16:29 Anion Gap Estim Creat Clear Calc Estimated GFR POC Glucose 179 H 178 H 225 H Random Glucose Calcium 11/17/21 11/18/21 11/18/21 20:25 05:08 07:10 Anion Gap 10 L Estim Creat Clear Calc 58.5 Estimated GFR > 60 POC Glucose 224 H 102 Random Glucose 105 Calcium 8.8 Microbiology Microbiology Results: Microbiology 11/16/21 10:09 Blood Culture - Preliminary Blood - Venous No growth after 24 hours. 11/16/21 09:59 Blood Culture - Preliminary Blood - Venous No growth after 24 hours. Assessment and Plan (1) Hydronephrosis: Status: Acute (2) COPD exacerbation: Status: Acute (3) Right ureteral stone: Status: Acute Assessment and Plan: A 75 years old male with PMH of COPD, bronchitis, diabetes among others who presented to the hospital complaining of 1 day worsening shortness of breath associated with right-sided flank pain. Acute hypoxic respiratory failure 2/2 COPD exacerbation Imaging negative for any acute infiltrates Duo nebs ATC, albuterol p.r.n. Continue IV steroids Oxygen wean down Hydronephrosis 2/2 ureteral stone Noted on CT on the right side 0.6 cm Urology to do cystoscopy today Pain medication, supportive measures for now Diverticulitis Local, seems to be a result of irritation from the hydronephrosis No symptoms, no pain, negative exam Will hold antibiotics and monitor clinically Type 2 diabetes SSI, diabetic diet DVT PPX Lovenox Quality Stroke Does the patient have a stroke diagnosis?: No VTE Prior VTE?: No VTE Risk Level:: Medical - moderate - high VTE Device Contraindication: Treatment Not Indicated VTE Drug Contraindication: N/A - Med Ordered
[2021-11-18 11:23] LABS: Glucose, Whole Blood 83 mg/dL (60-115)
[2021-11-18] MEDS: Albuterol Sulfate (0.083%) 2.5 MG/3 ML VIAL.NEB INHALE (11:47)
--- NOTE | 2021-11-18 12:26 | MHC.SHP ---
Pre-Procedural Eval Section A Date of Service: 11/18/21 The patient is an INPATIENT: Yes Changes since office visit: No Cold of Flu in the past 2 weeks, No New Medical Problems, No Changes in Medication and No Patient answered all questions The History & Physical has been completed within 30 days and I have reviewed it.: Yes Section B Chief Complaint: acute hypoxia failure, COPD exacerbation, ureteric Allergies: Allergies Allergy/AdvReac Type Severity Reaction Status Date / Time shellfish derived Allergy Severe ANAPHYLAXIS Verified 11/16/21 02:58 [SHELLFISH DERIVED] pollen extracts [POLLEN] Allergy Intermediate RUNNING Verified 11/16/21 02:58 NOSE, WATERY EYES, SNEEZING varenicline [VARENICLINE] AdvReac Unknown PALPITATION Verified 11/16/21 02:58 S Plan Diagnosis/Plan: Unchanged (Right distal ureteric stone. plan for cystoscopy, right retrograde, right ureteroscopy with laser lithotripsy stent placement) I have reviewed the history and physical and performed a pertinent physical examination on my patient. No changes have occurred unless specified.
--- NOTE | 2021-11-18 13:01 | W.PM.OPN ---
Operative Note Operative Note Date of Service: 11/18/21 Narrative: PreOperative Diagnosis: Distal right ureteric stone Post Operative Diagnosis: Distal right ureteric stone with ureteric stone in bladder Procedure: - cystoscopy, right retrograde - right dilatation of ureteric orifice under fluoroscopy - right ureteroscopy, laser lithotripsy, stone basketing - right stent placement Surgeon: Dr Beka Stock Anesthesia: General Indications for procedure: 75-year-old male admitted through emergency room with exacerbation of COPD and right-sided flank pain. CT scan showed stone within the mid to distal portion of the right ureter in chronic hydronephrosis. Prior imaging and showed similar hydronephrosis without a stone. Recommendation for intervention with ureteroscopy. Risks and benefits were discussed. Procedure: After informed consent was verified patient was brought to the operating placed in supine position. Anesthesia was administered per protocol. Patient was placed in modified dorsal lithotomy position and prepped and draped in a sterile fashion. Safety pause time-out and side of surgery confirmed. Antibiotics confirmed. 22 [place]er cystoscope was inserted per urethra. Bladder was normal in its entirety. Both ureteric orifices were in normal position. Stone was found within the bladder. Likely that this was passed a number of months earlier and has not been urinated out indicating incomplete bladder emptying. Stone was removed from the bladder. Sent for analysis. The right ureteric orifice was cannulated and a retrograde examination was performed. Filling defect was seen at the junction between the mid and distal ureter. A Sensor guidewire was placed up to the level of the renal pelvis under fluoroscopy. The rigid cystoscope was removed and the right ureteric orifice was dilated using a Farnsworth dilator. A rigid ureteral scope was then placed alongside the wire in the stone was encountered in the distal portion of the ureter. Using a holmium laser with 360 micron fiber the stone was broken into small pieces. Using a 0 tip basket stone fragments removed and sent for analysis. Multiple passes were required. The semi rigid ureteral scope was removed. The wire was backloaded over the 22 [place]er cystoscope. Cystoscope was inserted. A 6 [place] by 24cm double-J stent was placed into the renal pelvis and bladder under a combination of fluoroscopy and direct visualization. The bladder was emptied. The patient tolerated the procedure well and was extubated in the operating room, and transferred in stable condition to the recovery area. Pathology: Stones Drains: 6 [place] by 24 cm double-J stent
[2021-11-18 14:36] LABS: Glucose, Whole Blood 179 mg/dL (60-115)
[2021-11-18] MEDS: Phenazopyridine HCL 100 MG TABLET PO (16:22)
[2021-11-18] MEDS: traMADoL HCL 50 MG TABLET PO (16:23)
[2021-11-18 16:50] LABS: Glucose, Whole Blood 236 mg/dL (60-115)
[2021-11-18] MEDS: Insulin Lispro 100 UNIT/ML 3 ML VIAL SUBCUT ×2 (18:22→22:33)
[2021-11-18] MEDS: Acetaminophen 325 MG TABLET 650 MG PO (18:25)
[2021-11-18 20:42] LABS: Glucose, Whole Blood 172 mg/dL (60-115)
[2021-11-18] MEDS: Doxazosin Mesylate 2 MG TABLET 4 MG PO (22:33)
[2021-11-18] MEDS: Montelukast Sodium 10 MG TABLET PO (22:34)
[2021-11-18] MEDS: Pregabalin 150 MG CAPSULE PO (22:34)
[2021-11-18] MEDS: Mirtazapine 7.5 MG TABLET PO (22:34)
[2021-11-19] VITALS (9 sets, daily range): BP systolic 117–165; BP diastolic 57–71; PULSE 65–72; RESP 16–19; TEMP 36.2–36.8; O2SAT 92–99
[2021-11-19] MEDS: 0.9 % Sodium Chloride Flush 3 ML SYRINGE IVFLUSH ×2 (00:54→08:26)
[2021-11-19] MEDS: traMADoL HCL 50 MG TABLET PO (04:11)
[2021-11-19] MEDS: Levothyroxine Sodium 112 MCG TABLET PO (06:06)
[2021-11-19] MEDS: Omeprazole 20 MG CAPSULE.DR PO (06:06)
[2021-11-19 06:13] LABS: Anion Gap 14 (12-20); Blood Urea Nitrogen 24 mg/dL (9-16); Calcium 8.7 mg/dL (8.4-10.2); Carbon Dioxide 29 mmol/L (22-29); Chloride 100 mmol/L (96-108); Creatinine Clr Calc Pharmacy 51.4; Estimated Glomerular Filt Rate > 60; Glucose Random 157 mg/dL (60-115); Sodium 138 mmol/L (135-145)
[2021-11-19] MEDS: Albuterol/Iprat 2.5/0.5MG 3 ML AMPUL.NEB INHALE ×3 (07:16→15:28)
[2021-11-19 07:33] LABS: Glucose, Whole Blood 152 mg/dL (60-115)
[2021-11-19] MEDS: Pregabalin 75 MG CAPSULE PO (08:23)
[2021-11-19] MEDS: Theophylline Anhydrous ER 400 MG TAB.ER.24H PO (08:23)
[2021-11-19] MEDS: Insulin Lispro 100 UNIT/ML 3 ML VIAL SUBCUT ×2 (08:23→11:31)
[2021-11-19] MEDS: methylPREDNISolone Sod Succ 40 MG/ML VIAL IVPUSH (08:23)
--- NOTE | 2021-11-19 09:36 | HO.POSTANES ---
Post Anesthesia Evaluation Post Anesthesia Evaluation Vital Signs: Vital Signs Temp Pulse Resp BP Pulse Ox 11/19/21 07:27 97.1 F 68 19 139/63 99 11/19/21 07:17 68 16 11/19/21 03:38 97.9 F 69 18 117/57 L 92 11/19/21 01:00 17 11/19/21 00:00 98.3 F 72 16 134/63 93 11/18/21 22:33 79 128/78 Anesthesia: General LMA Mental Status: Awake Pain Control: Satisfactory Nausea/Vomiting: None Hydration: Adequate Anesthesia-Related Issues: No Anes. Related Issues
[2021-11-19 11:27] LABS: Glucose, Whole Blood 160 mg/dL (60-115)
[2021-11-19] MEDS: Enoxaparin Sodium 40 MG/0.4 ML SYRINGE SUBCUT (11:31)
--- NOTE | 2021-11-19 12:26 | PM.DS ---
DS: Providers Provider Date of Service: 11/19/21 Date of admission: 11/16/21 10:30 Primary care physician: Unknown Physician Consults: 11/16/21 10:30 Consult to Urology Routine Consulting Provider: Beka Stock Reason for consultation: Uretric stone, Hydronephrosis DS: Diagnosis Discharge Diagnosis (1) Hydronephrosis: Status: Acute (2) COPD exacerbation: Status: Acute (3) Right ureteral stone: Status: Acute DS: Summary Hospital Course Hospital Course: Patient was admitted for acute hypoxic respiratory failure secondary to COPD exacerbation complicated by right ureteral stone with hydronephrosis. He was given steroids and bronchodilators and was weaned off oxygen. His breathing is much better and he will be discharged on 5 more days of prednisone. For his obstructing ureteral stone he underwent cystoscopy with laser lithotripsy, stone basketing, right stent placement. He will follow up with Urology as outpatient. Patient is feeling much better will be discharged home. Time Spent with Patient Time attestation: Total time spent providing and/or coordinating discharge services: Discharge coordination time: Greater than 30 minutes Quality: Stroke Does the patient have a stroke diagnosis?: No Physical Exam Vital Signs: Vital Signs: Last Vital Signs Temp 97.3 F 11/19/21 11:08 Pulse 69 11/19/21 11:35 Resp 16 11/19/21 11:35 BP 165/71 H 11/19/21 11:08 Pulse Ox 95 11/19/21 11:08 BMI result Body Mass Index 18.4 General: AO X 3, no acute distress Resp: CTA bilateral, no accessory muscles used CVS: S1,S2,RRR GI: soft, non tender, non distended Neuro: motor grossly intact, alert Psych: appropriate affect, appropriate insight DS: Data Data Completed and Pending Pending studies at discharge: Pending at discharge 11/18/21 12:46 Surgical [PTH] Routine Labs on day of discharge: Laboratory Results - last 24 hr 11/18/21 11/18/21 11/18/21 14:32 16:38 20:20 Sodium Potassium Chloride Carbon Dioxide Anion Gap BUN Creatinine Estim Creat Clear Calc Estimated GFR POC Glucose 179 H 236 H 172 H Random Glucose Calcium 11/19/21 11/19/21 11/19/21 05:09 07:28 11:07 Sodium 138 Potassium 5.0 Chloride 100 Carbon Dioxide 29 Anion Gap 14 BUN 24 H Creatinine 0.91 Estim Creat Clear Calc 51.4 Estimated GFR > 60 POC Glucose 152 H 160 H Random Glucose 157 H D Calcium 8.7 Preliminary micro results at discharge 11/16/21 10:09 Blood Culture - Preliminary Blood - Venous No growth after 48 hours. 11/16/21 09:59 Blood Culture - Preliminary Blood - Venous No growth after 48 hours. Discharge Plan Discharge Patient Disposition: Home, Self-Care Discharge Diagnosis: renal colic, copd Referrals: Beka Stock MD [Physician] - 1 Week Luz Mccall NP [Nurse Practitioner] - 11/27/21 8:20 am (You have a telephone follow up appointment on November 27 at 8:20 am. Your doctor will call you at the time of your appointment.) Discharge Medications: New prednisone 20 mg tablet 40 mg PO DAILY Qty: 10 RF: 0 Continued metformin 500 mg tablet 500 mg PO DAILY RF: 0 levothyroxine 112 mcg tablet 112 mcg PO DAILY@0600 RF: 0 omeprazole 20 mg capsule,delayed release(DR/EC) 20 mg PO DAILY RF: 0 simvastatin 80 mg tablet 80 mg PO BEDTIME RF: 0 ipratropium-albuterol 0.5 mg-3 mg(2.5 mg base)/3 mL solution for nebulization 1 vial inhalation QID PRN (Reason: asthma) RF: 0 pregabalin 75 mg capsule 75 mg PO DAILY RF: 0 multivitamin Tablet 1 tab PO DAILY RF: 0 mirtazapine 7.5 mg Tablet 7.5 mg PO BEDTIME RF: 0 montelukast 10 mg Tablet 10 mg PO BEDTIME RF: 0 Daliresp 500 mcg Tablet 500 mcg PO DAILY RF: 0 albuterol sulfate [ProAir HFA] 90 mcg/actuation Hfa Aerosol Inhaler 2 puff INHALATION Q4H PRN (Reason: Respiratory Distress) RF: 0 testosterone cypionate 200 mg/mL Kit 100 mg IM Q2W RF: 0 Trelegy Ellipta 200-62.5-25 mcg blister with device 1 puff inhalation DAILY RF: 0 pregabalin 75 mg capsule 150 mg PO BEDTIME RF: 0 theophylline 400 mg tablet extended release 24 hr 400 mg PO DAILY 30 Days Qty: 30 RF: 6 Discharge Orders: Discharge Order (Routine); Ordered 11/19/21 Ordered By: Ortiz James Diet: advance to usual diet Activity on Discharge: As tolerated Stand Alone Forms: Patient Portal Discharge page Care Plan Goals: recovery Health Concerns: copd, renal colic Plan of Treatment: 5 more days prednisone, follow up with urology Assessment: see above
--- NOTE | 2021-11-19 12:41 | MHC.CM.PN ---
PT MEDICALLY CLEARED FOR D/C, PT WILL RETURN HOME SELF-CARE W/FAMILY FOR TRANSPORT
[2021-11-21 10:56] LABS: Stone Source KIDNEY STONE
== END 2021-11-19 17:46 | disposition home or self-care (01) | DRG 659 ==
LOC: HO.ED 09:46 → HO.EDOVER 10:59 → HO.S3 11-17 08:40
PROVIDERS: Urology; Admitting Provider Student in an Organized Health Care Education/Training Program; Emergency Provider Emergency Medicine; PCP Nurse Practitioner Family; Visit Provider Internal Medicine
PROC: 0T768DZ Dilation of Right Ureter with Intraluminal Device, Via Natural or Artificial Opening Endoscopic (ICD-10-PCS; principal; 2021-11-18 12:00)
DX: N13.2 Hydronephrosis with renal and ureteral calculous obstruction (principal); J96.01 Acute respiratory failure with hypoxia; J44.1 Chronic obstructive pulmonary disease with (acute) exacerbation; K57.32 Diverticulitis of large intestine without perforation or abscess without bleeding; E03.9 Hypothyroidism, unspecified; Z20.822 Contact with and (suspected) exposure to COVID-19; F17.210 Nicotine dependence, cigarettes, uncomplicated; Z71.6 Tobacco abuse counseling; Z99.81 Dependence on supplemental oxygen; Z79.890 Hormone replacement therapy; Z79.899 Other long term (current) drug therapy
CPT/HCPCS: 36415; 71045; 74176; 80048; 80053; 81001; 81003; 82365; 82947; 83605; 85025; 85027; 87040; 87635; 88300; 94640; 96365; 96375; 99285; C1769; C2617; J1650; J1956; J2920; J2930; J3010; Q9967

== ENCOUNTER → 2021-12-03 13:11 | Outpatient (BNVA) | payer MEDICARE, MEDICAID, SELFPAY | PROVIDERS: PCP Nurse Practitioner Family; Visit Provider Urology | DX: N20.0 Calculus of kidney (principal) | CPT/HCPCS: 52310; 99212 ==

== ENCOUNTER 2022-01-28 15:28 | Outpatient (REF) | payer MEDICARE, MEDICAID, SELFPAY ==
--- NOTE | ~2022-01-28 | US_ITS ---
EXAMINATION: US RETROPERITONEAL LIMITED (RENAL ONLY) CLINICAL INFORMATION: Calculus of kidney. COMPARISON: CT abdomen and pelvis without contrast 11/16/2021. XR abdomen KUB 07/16/2018. TECHNIQUE: Real-time imaging of the kidneys. FINDINGS: RIGHT KIDNEY: 9.4 x 4.1 x 4.5 cm (SAG x AP x TRV). The kidney is normal in size, contour, and echogenicity. Renal cortical thickness is normal. No calculi or focal parenchymal lesions. No hydronephrosis. There are multiple scattered echogenic calcifications without twinkle artifact. LEFT KIDNEY: 8.7 x 4.6 x 4.7 cm (SAG x AP x TRV). The kidney is normal in size, contour, and echogenicity. Renal cortical thickness is normal. No calculi or focal parenchymal lesions. No hydronephrosis. There are multiple echogenic calcifications seen throughout without twinkle artifact. US/US renal BI IMPRESSION: There are multiple bilateral echogenic calcifications seen throughout the kidneys without twinkle artifact.
== END 2022-01-28 15:29 | disposition home or self-care (01) ==
LOC: HO.US 15:28
PROVIDERS: Visit Provider Urology
DX: N20.0 Calculus of kidney (principal)
CPT/HCPCS: 76775

== ENCOUNTER 2022-01-29 07:22 | Observation (INO) | payer MEDICARE, MEDICAID, SELFPAY ==
[2022-01-29] VITALS (12 sets, daily range): BP systolic 112–140; BP diastolic 44–66; PULSE 68–103; RESP 14–27; TEMP 36.2–37.2; O2SAT 95–100; BMI 40.7; BMI 18.6
--- NOTE | ~2022-01-29 | XR_ITS ---
EXAMINATION: XR CHEST CLINICAL INFORMATION: Shortness of breath COMPARISON: November 16, 2021 October 21, 2021 TECHNIQUE: AP portable view of the chest was obtained. FINDINGS: Within the right perihilar region there is again noted to be a faint soft tissue density consistent with known mass. There is chronic pleural-parenchymal scarring with some calcified plaque seen within the right upper lung. There appears be some bullous change as well versus possible sequela of previous pneumothorax. No new confluent parenchymal disease identified. Heart normal size. No evidence of pulmonary edema. Calcified granuloma seen left lung base. No new region of confluent disease appreciated. XR/XR chest 1V IMPRESSION: No acute disease. COPD with chronic changes within the right upper lung. Mid right lung mass density.
--- NOTE | 2022-01-29 07:24 | ECG_ITS ---
Test Reason : SOB Blood Pressure : / mmHG Vent. Rate : 089 BPM Atrial Rate : 089 BPM P-R Int : 110 ms QRS Dur : 086 ms QT Int : 336 ms P-R-T Axes : 072 063 066 degrees QTc Int : 408 ms Sinus rhythm with marked sinus arrhythmia with short HI Otherwise normal ECG When compared with ECG of 21-OCT-2021 16:26, Premature supraventricular complexes are no longer Present Referred By: Kajla Peralta Electronically Signed By:Anoop Gentile
--- NOTE | 2022-01-29 07:25 | ED.ASTHMA ---
HPI - Asthma General Chief Complaint: Dyspnea Stated Complaint: diff breathing Time Seen by Provider: 01/29/22 07:23 Source: patient and old records reviewed Mode of arrival: ambulatory Limitations: no limitations History of Present Illness MD complaint: asthma attack , shortness of breath and wheezing Onset (ago): day(s) (3) Severity: severe and similar to prior Context: smoke exposure Associated symptoms: productive cough Asthma History: childhood onset Treatments Prior to Arrival: inhaled bronchodilator Related Data Home Medications Medication Instructions Recorded Confirmed metformin 500 mg tablet 500 mg PO DAILY 09/28/20 11/16/21 levothyroxine 112 mcg tablet 112 mcg PO DAILY@0600 12/01/20 11/16/21 omeprazole 20 mg capsule,delayed 20 mg PO DAILY 12/01/20 11/16/21 release simvastatin 80 mg tablet 80 mg PO BEDTIME 07/13/21 11/16/21 ipratropium 0.5 mg-albuterol 3 mg 1 vial INHALATION QID PRN 08/06/21 11/16/21 (2.5 mg base)/3 mL nebulization soln multivitamin 1 tab PO DAILY 08/06/21 11/16/21 pregabalin 75 mg capsule 75 mg PO DAILY 08/06/21 11/16/21 fluticasone fur. 200 mcg-umeclid 1 puff INHALATION DAILY 10/21/21 11/16/21 62.5 mcg-vilant 25 mcg inhalat.powder (Trelegy Ellipta) pregabalin 75 mg capsule 150 mg PO BEDTIME 10/21/21 11/16/21 albuterol sulfate 90 mcg/actuation 2 puff INHALATION Q4H PRN 11/16/21 11/16/21 aerosol inhaler (ProAir HFA) mirtazapine 7.5 mg tablet 7.5 mg PO BEDTIME 11/16/21 11/16/21 montelukast 10 mg tablet 10 mg PO BEDTIME 11/16/21 11/16/21 roflumilast 500 mcg tablet 500 mcg PO DAILY 11/16/21 11/16/21 (Daliresp) testosterone cypionate 200 mg/mL 100 mg IM Q2W 11/16/21 11/16/21 intramuscular kit Previous Rx's Medication Instructions Recorded theophylline 400 mg 400 mg PO DAILY 30 Days #30 tab 10/08/21 tablet,extended release 24 hr prednisone 20 mg tablet 40 mg PO DAILY #10 tab 11/19/21 Allergies Allergy/AdvReac Type Severity Reaction Status Date / Time shellfish derived Allergy Severe ANAPHYLAXIS Verified 01/29/22 07:27 [SHELLFISH DERIVED] pollen extracts [POLLEN] Allergy Intermediate RUNNING Verified 01/29/22 07:27 NOSE, WATERY EYES, SNEEZING varenicline [VARENICLINE] AdvReac Unknown PALPITATION Verified 01/29/22 07:27 S Review of Systems Review of Systems: Constitutional : No Fever, No Chills ENT/Mouth : No Hoarseness, No sore throat, No Rhinorrhea Eyes: No Redness, No Discharge, No Vision Changes Cardiovascular : No Chest Pain, positive SOB, positive Dyspnea on Exertion, No Edema Respiratory : positive Cough, pos Sputum, positive Wheezing, Gastrointestinal : No Nausea, No Vomiting, No Diarrhea, No abdominal Pain Genitourinary : No Dysuria, No Hematuria Musculoskeletal : No joint pain, No Myalgias Skin : No rash Neuro : No Weakness, No Numbness, No Headache Psych : No anxiety, depression Heme/Lymph: No Bruising, No Bleeding Endocrine : No Polyuria, No Polydipsia All other systems reviewed and are negative PMFSH Past Medical History Attestation statement: The following information was validated with the patient. Source: old records reviewed Medical History Asthma Cataract Chronic respiratory failure COPD (chronic obstructive pulmonary disease) Diabetes GERD (gastroesophageal reflux disease) Hypertension Hypothyroidism Osteoarthritis Osteoporosis Oxygen dependent Sepsis Tobacco dependence Ureteral calculi Surgical History History of appendectomy Hx of cataract surgery Family History Family History Other Hypertension Social History Social History Household Members: Spouse Housing: Apartment Do you presently have visiting nurse or other home services: No Alcohol intake: never Patient Tobacco Use Status: Current someday Tobacco user Tobacco use type: Cigarette Cigarette Packs Per Day: 0.5 Cigarettes Per Day: 10.0 Years Smoked: 50 e-Cigarette/Vaping Use: Currently Using Second Hand Smoke Exposure: No Advance Directives: No Advance Directives Information Provided: No Advance Directives Date on File: 12/18/20 service: No Current occupational status: unemployed and retired Physical Exam Vital Signs: Vital Signs: Last Vital Signs Temp 97.8 F 01/29/22 08:00 Pulse 103 H 01/29/22 09:31 Resp 23 H 01/29/22 09:31 BP 133/54 L 01/29/22 08:00 Pulse Ox 100 01/29/22 08:00 Oxygen Flow Rate 7 01/29/22 07:28 BMI result Body Mass Index 40.7 Appearance: Alert. Oriented X3. Mild acute distress. Thin Eyes: Pupils equal, round and reactive to light. ENT: Pharynx normal. Neck: Normal inspection. Neck supple. CVS: Normal heart rate and rhythm. Pulses normal. Respiratory: Mild respiratory distress tachypnea and retractions. Breath sounds very diminished coarse with wheezes throughout Abdomen: Soft and non-tender. Skin: Skin warm and dry. Normal skin color. Normal skin turgor. Extremities: No lower extremity edema. No calf ttp Neuro: Oriented X 3. No motor deficit. No sensory deficit. Course Course Course Narrative: repeat neb ordered will reassess may need admission for further nebs and IV antibiotics MDM - Asthma MDM Narrative Medical decision making narrative: 76 yo male with hx of COPD still a smoker with frequent visits for COPD attacks not on home O2 comes in with c/o 3 days productive cough and worsening dyspnea at this time will need labs, cultures, CXR, COVID swab and 10mg hour long neb. IV steroids/IV magnesium. IV antibiotics given productive cough with COPD. Dispo per results and clinical improvement. Lab Data Result diagrams: 01/29/22 07:59 01/29/22 07:59 Labs: Lab Results 01/29/22 01/29/22 01/29/22 Range/Units 07:52 07:59 07:59 WBC 7.8 (4.8-10.8) X10*3/uL RBC 4.27 L (4.60-5.80) X10*6/uL Hgb 10.1 L (14.0-18.0) g/dl Hct 34.0 L (42.0-52.0) % MCV 79.6 L (80.0-98.0) fL MCH 23.7 L (27.0-33.0) pg MCHC 29.7 L (31.0-36.0) g/dl RDW 16.0 (11.0-16.0) % Plt Count 363 (160-400) X10*3/uL MPV 10.0 (9.4-12.4) fL Immature Gran % (Auto) 0.3 (0.0-0.4) % Neut % (Auto) 64.3 (45-73) % Lymph % (Auto) 24.1 (20-40) % [place] % (Auto) 7.9 (2-11) % Eos % (Auto) 3.0 (0-4) % Baso % (Auto) 0.4 (0-2) % Lymph # (Auto) 1.9 (1.2-4.9) X10*3/uL [place] # (Auto) 0.6 (0.1-1.2) X10*3/uL Eos # (Auto) 0.2 (0.0-0.4) X10*3/uL Baso # (Auto) 0.0 (0.0-0.2) X10*3/uL Abs Immat Gran (auto) 0.02 (0.00-0.03) X10*3/uL Absolute Neuts (auto) 5.0 (2.0-8.3) x10*3/uL Absolute Nucleated RBC 0.000 (0.0-0.012) X10*3/uL Nucleated RBC % (auto) 0.0 (0.0-0.2) /100WBC VBG pH (7.32-7.43) VBG pCO2 mmHg VBG pO2 mmHg VBG HCO3 (22-26) mmol/L VBG O2 Saturation % VBG Base Excess mmol/L Sodium 140 (135-145) mmol/L Potassium 4.0 (3.3-5.1) mmol/L Chloride 102 (96-108) mmol/L Carbon Dioxide 32 H (22-29) mmol/L Anion Gap 10 L (12-20) BUN 12 (9-16) mg/dL Creatinine 0.87 (0.5-1.4) mg/dL Estim Creat Clear Calc 85.6 Estimated GFR > 60 Random Glucose 130 H (60-115) mg/dL Lactic Acid (0.5-2.0) mmol/L Calcium 9.0 (8.4-10.2) mg/dL Magnesium 2.1 (1.6-2.6) mg/dL Total Bilirubin 0.4 (0.0-1.0) mg/dL Direct Bilirubin < 0.2 (0.0-0.5) mg/dL AST 11 (5-37) U/L ALT 6 (0-40) U/L Alkaline Phosphatase 105 (39-117) U/L Troponin I High Sens (<3.5-35.0) ng/L Total Protein 6.1 L (6.5-8.0) g/dL Albumin 3.8 (3.5-5.0) g/dL COVID-19 (ELIO) Negative (Negative) COVID-19 Clin Com See Note 01/29/22 01/29/22 01/29/22 Range/Units 07:59 07:59 08:01 WBC (4.8-10.8) X10*3/uL RBC (4.60-5.80) X10*6/uL Hgb (14.0-18.0) g/dl Hct (42.0-52.0) % MCV (80.0-98.0) fL MCH (27.0-33.0) pg MCHC (31.0-36.0) g/dl RDW (11.0-16.0) % Plt Count (160-400) X10*3/uL MPV (9.4-12.4) fL Immature Gran % (Auto) (0.0-0.4) % Neut % (Auto) (45-73) % Lymph % (Auto) (20-40) % [place] % (Auto) (2-11) % Eos % (Auto) (0-4) % Baso % (Auto) (0-2) % Lymph # (Auto) (1.2-4.9) X10*3/uL [place] # (Auto) (0.1-1.2) X10*3/uL Eos # (Auto) (0.0-0.4) X10*3/uL Baso # (Auto) (0.0-0.2) X10*3/uL Abs Immat Gran (auto) (0.00-0.03) X10*3/uL Absolute Neuts (auto) (2.0-8.3) x10*3/uL Absolute Nucleated RBC (0.0-0.012) X10*3/uL Nucleated RBC % (auto) (0.0-0.2) /100WBC VBG pH 7.35 (7.32-7.43) VBG pCO2 69 mmHg VBG pO2 47 mmHg VBG HCO3 38 H (22-26) mmol/L VBG O2 Saturation 68.0 % VBG Base Excess 10.5 mmol/L Sodium (135-145) mmol/L Potassium (3.3-5.1) mmol/L Chloride (96-108) mmol/L Carbon Dioxide (22-29) mmol/L Anion Gap (12-20) BUN (9-16) mg/dL Creatinine (0.5-1.4) mg/dL Estim Creat Clear Calc Estimated GFR Random Glucose (60-115) mg/dL Lactic Acid 1.7 (0.5-2.0) mmol/L Calcium (8.4-10.2) mg/dL Magnesium (1.6-2.6) mg/dL Total Bilirubin (0.0-1.0) mg/dL Direct Bilirubin (0.0-0.5) mg/dL AST (5-37) U/L ALT (0-40) U/L Alkaline Phosphatase (39-117) U/L Troponin I High Sens < 3.5 (<3.5-35.0) ng/L Total Protein (6.5-8.0) g/dL Albumin (3.5-5.0) g/dL COVID-19 (ELIO) (Negative) COVID-19 Clin Com ECG Data Attestation: I personally reviewed and interpreted this ECG as follows: ECG interpretation date: 01/29/22 ECG interpretation time: 07:44 Interpretation: Rate: 89 Rhythm: NSR [place]: normal Normal P waves. Normal JOHAN. Normal QRS complex. ST T wave : normal no MARIA DEL ROSARIO qTC: normal prior studies: no acute ischemia The study has been interpreted contemporaneously by me. Critical Care Time Critical Care Time Critical Care Time: Yes Total Critical Care Time: 60 Attestation: hour long nebs, repeat nebs, treatment of hypoxia, IV steroids I attest to this time spent taking care of the patient Discharge Plan Discharge Clinical Impression: COPD (chronic obstructive pulmonary disease) Patient Disposition: Admitted As Inpatient Prescriptions: No Action metformin 500 mg tablet 500 mg PO DAILY 0RF levothyroxine 112 mcg tablet 112 mcg PO DAILY@0600 0RF omeprazole 20 mg capsule,delayed release(DR/EC) 20 mg PO DAILY 0RF simvastatin 80 mg tablet 80 mg PO BEDTIME 0RF ipratropium-albuterol 0.5 mg-3 mg(2.5 mg base)/3 mL solution for nebulization 1 vial inhalation QID PRN (Reason: asthma) 0RF pregabalin 75 mg capsule 75 mg PO DAILY 0RF multivitamin Tablet 1 tab PO DAILY 0RF mirtazapine 7.5 mg Tablet 7.5 mg PO BEDTIME 0RF montelukast 10 mg Tablet 10 mg PO BEDTIME 0RF Daliresp 500 mcg Tablet 500 mcg PO DAILY 0RF albuterol sulfate [ProAir HFA] 90 mcg/actuation Hfa Aerosol Inhaler 2 puff INHALATION Q4H PRN (Reason: Respiratory Distress) 0RF testosterone cypionate 200 mg/mL Kit 100 mg IM Q2W 0RF prednisone 20 mg tablet 40 mg PO DAILY Qty: 10 0RF Trelegy Ellipta 200-62.5-25 mcg blister with device 1 puff inhalation DAILY 0RF pregabalin 75 mg capsule 150 mg PO BEDTIME 0RF theophylline 400 mg tablet extended release 24 hr 400 mg PO DAILY 30 Days Qty: 30 6RF
[2022-01-29] MEDS: Albuterol Sulfate (0.083%) 2.5 MG/3 ML VIAL.NEB 10 MG INHALE (07:32)
[2022-01-29] MEDS: methylPREDNISolone Sod Succ 125 MG/2 ML VIAL IVPUSH (07:52)
[2022-01-29] MEDS: Magnesium Sulfate/H2O 2 GM/50 ML PIGGYBACK IV (07:52)
[2022-01-29 08:06] LABS: MANUAL DIFF FLAG NO
[2022-01-29 08:07] LABS: Venous Blood Gas Refer to POC result
[2022-01-29 08:07] LABS: VBG Base Excess 10.5 mmol/L; VBG HCO3 38 mmol/L (22-26); VBG pCO2 69 mmHg; VBG pH 7.35 (7.32-7.43); VBG pO2 47 mmHg
[2022-01-29 08:10] LABS: Basophils Percent Auto 0.4 % (0-2); Eosinophils Absolute Auto 0.2 X10*3/uL (0.0-0.4); Hemoglobin 10.1 g/dl (14.0-18.0); Imm Gran Abs Auto 0.02 X10*3/uL (0.00-0.03); Imm Gran Pct Auto 0.3 % (0.0-0.4); Lymphocytes Absolute Auto 1.9 X10*3/uL (1.2-4.9); Lymphocytes Percent Auto 24.1 % (20-40); Mean Corpuscular HGB Conc 29.7 g/dl (31.0-36.0); Mean Corpuscular Hemoglobin 23.7 pg (27.0-33.0); Mean Corpuscular Volume 79.6 fL (80.0-98.0); Monocytes Absolute Auto 0.6 X10*3/uL (0.1-1.2); Monocytes Percent Auto 7.9 % (2-11); Neutrophils Percent Auto 64.3 % (45-73); Platelet Count 363 X10*3/uL (160-400); Red Blood Count 4.27 X10*6/uL (4.60-5.80); White Blood Count 7.8 X10*3/uL (4.8-10.8)
[2022-01-29 08:17] LABS: Lactic Acid 1.7 mmol/L (0.5-2.0)
[2022-01-29 08:23] LABS: Alanine Aminotransferase 6 U/L (0-40); Albumin Level 3.8 g/dL (3.5-5.0); Alkaline Phosphatase 105 U/L (39-117); Anion Gap 10 (12-20); Aspartate Amino Transferase 11 U/L (5-37); Bilirubin Direct < 0.2 mg/dL (0.0-0.5); Bilirubin Total 0.4 mg/dL (0.0-1.0); Blood Urea Nitrogen 12 mg/dL (9-16); Carbon Dioxide 32 mmol/L (22-29); Chloride 102 mmol/L (96-108); Creatinine Clr Calc Pharmacy 85.6; Estimated Glomerular Filt Rate > 60; Glucose Random 130 mg/dL (60-115); Magnesium 2.1 mg/dL (1.6-2.6); Sodium 140 mmol/L (135-145); Total Protein 6.1 g/dL (6.5-8.0)
[2022-01-29 08:28] LABS: Troponin-I High Sensitivity < 3.5 ng/L (<3.5-35.0)
[2022-01-29 08:34] LABS: COVID-19 Test Negative (Negative)
[2022-01-29] MEDS: cefTRIAXone sodium 1 GM in 0.9 % Sodium Chloride 50 ML IV (08:39)
[2022-01-29] MEDS: Azithromycin 500 MG in 0.9 % Sodium Chloride 250 ML 125 MG IV (08:39)
[2022-01-29] MEDS: Albuterol Sulfate (0.083%) 2.5 MG/3 ML VIAL.NEB INHALE (09:30)
--- NOTE | 2022-01-29 10:20 | PHA.MEDREC ---
Pharmacy Consult ? Medication Reconciliation Pharmacy has completed the medication reconciliation. Patient does not know what he takes. Attempted to call the people in his contact with no luck. Used claim history and past medical record to determine patient medications. Yodit Goff, MauricioD
--- NOTE | 2022-01-29 11:22 | P.HPHOSP_ITS ---
History of Present Illness Date of Service: 01/29/22 Chief Complaint: asthma attack This is a 76 yo M with a PMH of COPD, DM, Continued tobacco use despite recurrent hospitalizations for copd exacerbations, hypothyroid who presents to [facility] with complaints of sudden onset dyspnea after he woke up this morning. Patient endorses a chronic cough, but slightly increased in productivity over the last several days -- whitish/yellow sputum. He denies any fevers or chills. He reports feeling at baseline the preceeding 24 hours prior to ED arrival. He reports compliance with his inhalers / nebulizers. He reports smoking 2-3 cigarettes daily. He denies any sick contacts. He reports that due to the recent cold weather, he has a flare of his asthma. In the ED, the patient was treated with systemic steroids, several nebulized bronchodilators and antibiotics. He remains symptomatic with wheezing / REED and so now will be admitted (under observation) for further treatment. Review of Systems Review of Systems: negative except HPI [facility] Medical History Asthma Cataract Chronic respiratory failure COPD (chronic obstructive pulmonary disease) Diabetes GERD (gastroesophageal reflux disease) Hypertension Hypothyroidism Osteoarthritis Osteoporosis Oxygen dependent Sepsis Tobacco dependence Ureteral calculi Family History Other Hypertension Surgical History History of appendectomy Hx of cataract surgery Social History Household Members: Spouse Housing: Apartment Do you presently have visiting nurse or other home services: No Alcohol intake: never Patient Tobacco Use Status: Current someday Tobacco user Tobacco use type: Cigarette Cigarette Packs Per Day: 0.5 Cigarettes Per Day: 10.0 Years Smoked: 50 e-Cigarette/Vaping Use: Currently Using Second Hand Smoke Exposure: No Advance Directives: No Advance Directives Information Provided: No Advance Directives Date on File: 12/18/20 service: No Current occupational status: unemployed and retired Meds Allergies Allergy/AdvReac Type Severity Reaction Status Date / Time shellfish derived Allergy Severe ANAPHYLAXIS Verified 01/29/22 07:27 [SHELLFISH DERIVED] pollen extracts [POLLEN] Allergy Intermediate RUNNING Verified 01/29/22 07:27 NOSE, WATERY EYES, SNEEZING varenicline [VARENICLINE] AdvReac Unknown PALPITATION Verified 01/29/22 07:27 S Active Medications: Current Medications Acetaminophen (Acetaminophen 325 Mg Tablet) 650 mg PO Q6H PRN PRN Reason: Pain, Mild (Pain Scale 1-3) Albuterol/Ipratropium (Albuterol/Iprat 2.5/0.5mg 3 Ml Ampul.Neb) 3 ml INHALE RQ4H WHILE AWAKE [facility] Azithromycin (Azithromycin 250 Mg Tablet) 250 mg PO Q24H MEHDI Stop: 02/02/22 09:01 Enoxaparin Sodium (Enoxaparin Sodium 40 Mg/0.4 Ml Syringe) 40 mg SUBCUT Q24H [facility] Levothyroxine Sodium (Levothyroxine Sodium 112 Mcg Tablet) 112 mcg PO DAILY@0600 [facility] Methylprednisolone Sodium Succinate (Methylprednisolone Sod Succ 40 Mg/Ml Vial) 40 mg IVPUSH BID [facility] Ondansetron HCl (Ondansetron Hcl 4 Mg/2 Ml Vial) 4 mg IVPUSH Q8H PRN PRN Reason: Nausea and Vomiting Sodium Chloride (0.9 % Sodium Chloride Flush 3 Ml Syringe) 3 ml IVFLUSH QSHIFT [facility] Home Medications Medication Instructions Recorded Confirmed Last Taken Type metformin 500 mg tablet 500 mg PO DAILY 09/28/20 01/29/22 11/15/21 History levothyroxine 112 mcg tablet 112 mcg PO DAILY@0600 12/01/20 01/29/22 11/15/21 History omeprazole 20 mg capsule,delayed 20 mg PO DAILY 12/01/20 01/29/22 11/15/21 History release ipratropium 0.5 mg-albuterol 3 mg 1 vial INHALATION QID PRN 08/06/21 01/29/22 10/21/21 History (2.5 mg base)/3 mL nebulization soln multivitamin 1 tab PO DAILY 08/06/21 01/29/22 11/15/21 History fluticasone fur. 200 mcg-umeclid 1 puff INHALATION DAILY 10/21/21 01/29/22 10/21/21 History 62.5 mcg-vilant 25 mcg inhalat.powder (Trelegy Ellipta) albuterol sulfate 90 mcg/actuation 2 puff INHALATION Q4H PRN 11/16/21 01/29/22 Unknown History aerosol inhaler (ProAir HFA) mirtazapine 7.5 mg tablet 7.5 mg PO BEDTIME 11/16/21 01/29/22 11/15/21 History montelukast 10 mg tablet 10 mg PO BEDTIME 11/16/21 01/29/22 11/15/21 History roflumilast 500 mcg tablet 500 mcg PO DAILY 11/16/21 01/29/22 11/15/21 History (Daliresp) testosterone cypionate 200 mg/mL 100 mg IM Q2W 11/16/21 01/29/22 Unknown History intramuscular kit duloxetine 30 mg capsule,delayed 1 cap PO DAILY PRN 01/29/22 01/29/22 Unknown History release nabumetone 500 mg tablet 1 tab PO BID PRN 01/29/22 01/29/22 Unknown History prednisone 10 mg tablet 1.5 tab PO DAILY 01/29/22 01/29/22 Unknown History Physical Exam Vital Signs and Narrative: Vital Signs: Last Vital Signs Temp 97.8 F 01/29/22 08:00 Pulse 89 01/29/22 10:35 Resp 16 01/29/22 10:35 BP 112/44 L 01/29/22 10:35 Pulse Ox 96 01/29/22 10:35 Oxygen Flow Rate 7 01/29/22 07:28 BMI result Body Mass Index 40.7 Const: Other: Constitutional - Awake and Alert, appears comfortable Eyes - PERRLA, EOMI Cardiovascular - S1S2, RRR, No edema Respiratory - No respiratory distress, however diffuse expiratory wheezing Gastrointestinal - NT / ND; +BS; No rebound or guarding - No CVA tenderness Extremities - no calf tenderness bilaterally, no swelling Musculoskeletal - Normal inspection, normal ROM Skin - Warm/Dry Neurological - Alert & oriented x3, No focal deficit Psychological - Appropriate affect Results Labs CBC and Chem 7: 01/29/22 07:59 01/29/22 07:59 Labs: Laboratory Results - last 24 hr 01/29/22 01/29/22 01/29/22 07:52 07:59 07:59 MCV 79.6 L MCH 23.7 L MCHC 29.7 L RDW 16.0 Plt Count 363 MPV 10.0 Immature Gran % (Auto) 0.3 Neut % (Auto) 64.3 Lymph % (Auto) 24.1 [place] % (Auto) 7.9 Eos % (Auto) 3.0 Baso % (Auto) 0.4 Lymph # (Auto) 1.9 [place] # (Auto) 0.6 Eos # (Auto) 0.2 Baso # (Auto) 0.0 Abs Immat Gran (auto) 0.02 Absolute Neuts (auto) 5.0 Absolute Nucleated RBC 0.000 Nucleated RBC % (auto) 0.0 VBG pH VBG pCO2 VBG pO2 VBG HCO3 VBG O2 Saturation VBG Base Excess Anion Gap 10 L Estim Creat Clear Calc 85.6 Estimated GFR > 60 Random Glucose 130 H Lactic Acid Calcium 9.0 Magnesium 2.1 Total Bilirubin 0.4 Direct Bilirubin < 0.2 AST 11 ALT 6 Alkaline Phosphatase 105 Total Protein 6.1 L Albumin 3.8 COVID-19 (ELIO) Negative COVID-19 Clin Com See Note 01/29/22 01/29/22 07:59 08:01 MCV MCH MCHC RDW Plt Count MPV Immature Gran % (Auto) Neut % (Auto) Lymph % (Auto) [place] % (Auto) Eos % (Auto) Baso % (Auto) Lymph # (Auto) [place] # (Auto) Eos # (Auto) Baso # (Auto) Abs Immat Gran (auto) Absolute Neuts (auto) Absolute Nucleated RBC Nucleated RBC % (auto) VBG pH 7.35 VBG pCO2 69 VBG pO2 47 VBG HCO3 38 H VBG O2 Saturation 68.0 VBG Base Excess 10.5 Anion Gap Estim Creat Clear Calc Estimated GFR Random Glucose Lactic Acid 1.7 Calcium Magnesium Total Bilirubin Direct Bilirubin AST ALT Alkaline Phosphatase Total Protein Albumin COVID-19 (ELIO) COVID-19 Clin Com Imaging Radiologist's Impressions: Impressions Chest X-Ray 01/29/22 08:56 IMPRESSION: No acute disease. COPD with chronic changes within the right upper lung. Mid right lung mass density. Assessment and Plan (1) COPD (chronic obstructive pulmonary disease): Qualifiers: COPD type: COPD with acute exacerbation Qualified Code(s): J44.1 - Chronic obstructive pulmonary disease with (acute) exacerbation Status: Acute Plan This is a 76 yo M with a PMH of COPD, DM, Hypothryoidism, HTN who presents to the hospital after sudden onset of dyspnea not responsive to home inhalers / bronchodilators. He has been treated with systemic steroids and continuous bronchodilators x 2 with some improvement in his symptoms. He remains short of breath with wheezing (but no hypoxia) and now will be admitted (under obs) for further care. 1. Acute exacerbation of COPD 1a. Suspected bacterial bronchitis Likely exacerbated by continual tobacco use -- he has been, again, encouraged on complete cessation of tobacco use IV solu-medrol Scheduled + PRN bronchodilators Zithromax x 5 days continue his theophyllin/montelukast, hold home inhalers while hospitalized 2. DM, type 2 on metformin at home -- hold and use sliding scale diabetic diet 3. GERD PPI 4. Hypothyroidism synthroid 5. Mood continue baseline meds Full Code DVT pptx, Lovenox Quality Stroke Does the patient have a stroke diagnosis?: No VTE Prior VTE?: No VTE Risk Level:: Medical - moderate - high VTE Device Contraindication: Treatment Not Indicated VTE Drug Contraindication: N/A - Med Ordered
[2022-01-29] MEDS: Albuterol/Iprat 2.5/0.5MG 3 ML AMPUL.NEB INHALE ×3 (11:28→19:37)
[2022-01-29 11:59] LABS: Glucose, Whole Blood 192 mg/dL (60-115)
--- NOTE | 2022-01-29 12:21 | PC.NURSE ---
Report given to ER overflow. Care transitioned at this time.
[2022-01-29 12:36] LABS: Glucose, Whole Blood 172 mg/dL (60-115)
--- NOTE | 2022-01-29 12:39 | PC.NURSE ---
pt is a&ox3, vss, 96% O2 on room air, POC = 179, ambulating independently w cane to restroom, no sob/difficulty breathing on arrival, non productive cough.
[2022-01-29] MEDS: Insulin Lispro 100 UNIT/ML 3 ML VIAL SUBCUT ×2 (13:28→18:32)
[2022-01-29] MEDS: Enoxaparin Sodium 40 MG/0.4 ML SYRINGE SUBCUT (13:28)
--- NOTE | 2022-01-29 13:32 | PC.NURSE ---
medicated per provider order.
[2022-01-29] MEDS: Acetaminophen 325 MG TABLET 650 MG PO (13:42)
--- NOTE | 2022-01-29 13:43 | PC.NURSE ---
pt medicated per provider order w PRN tylenol (neck pain).
[2022-01-29] MEDS: 0.9 % Sodium Chloride Flush 3 ML SYRINGE IVFLUSH ×2 (17:06→21:11)
--- NOTE | 2022-01-29 17:23 | PC.NURSE ---
insulin held due to late dinners in ED overflow.
[2022-01-29 18:20] LABS: Glucose, Whole Blood 204 mg/dL (60-115)
[2022-01-29 20:05] LABS: Glucose, Whole Blood 129 mg/dL (60-115)
[2022-01-29] MEDS: Montelukast Sodium 10 MG TABLET PO (21:11)
[2022-01-29] MEDS: methylPREDNISolone Sod Succ 40 MG/ML VIAL IVPUSH (21:11)
[2022-01-29] MEDS: Mirtazapine 7.5 MG TABLET PO (21:11)
[2022-01-30] VITALS (9 sets, daily range): BP systolic 118–131; BP diastolic 58–65; PULSE 65–77; RESP 14–19; TEMP 36–37.2; O2SAT 94–98
[2022-01-30] MEDS: Levothyroxine Sodium 112 MCG TABLET PO (06:03)
[2022-01-30] MEDS: Omeprazole 20 MG CAPSULE.DR PO (06:03)
[2022-01-30 07:10] LABS: Glucose, Whole Blood 143 mg/dL (60-115)
[2022-01-30] MEDS: Albuterol/Iprat 2.5/0.5MG 3 ML AMPUL.NEB INHALE ×3 (08:15→20:35)
[2022-01-30] MEDS: Theophylline Anhydrous ER 400 MG TAB.ER.24H PO (08:45)
[2022-01-30] MEDS: Azithromycin 250 MG TABLET PO (08:45)
[2022-01-30] MEDS: methylPREDNISolone Sod Succ 40 MG/ML VIAL IVPUSH ×2 (08:45→20:31)
[2022-01-30] MEDS: 0.9 % Sodium Chloride Flush 3 ML SYRINGE IVFLUSH ×3 (08:45→20:32)
[2022-01-30] MEDS: Multivitamin TABLET 1 TAB PO (08:45)
[2022-01-30 11:23] LABS: Glucose, Whole Blood 121 mg/dL (60-115)
--- NOTE | 2022-01-30 12:09 | P.PNIM_ITS ---
Subjective Subjective Date of Service: 01/30/22 Interval History: Complaining of persistent shortness of breath and cough ,sob worse with exertion, denies nausea, no vomiting, tolerating diet no fever, no chills. Review of Systems Review of Systems: Yes all other systems are reviewed and are negative Physical Exam Vital Signs: Vital Signs: Last Vital Signs Temp 98.6 F 01/30/22 11:11 Pulse 67 01/30/22 11:11 Resp 18 01/30/22 11:11 BP 118/65 01/30/22 11:11 Pulse Ox 94 01/30/22 11:11 Oxygen Flow Rate 7 01/29/22 07:28 BMI result Body Mass Index 18.6 Const: Other: Constitutional - A wake and Alert, no acute distress Ne ck is supple no JV D Cardiovascular - ? S1S2, RRR, No ed yara Respiratory - bilateral expirato ry rhonchi, No use of accessory musc les Gastrointesti nal -?nontender kellie wel sounds audible - No CVA tend erness Extremities - no swelling Mus culoskeletal - Nor mal inspection, no rmal ROM Skin - Wa rm/Dry Neurologica l -? Alert & orien saman x3, No focal d eficit Psychologic al - Appropriate a ffect Objective Data Active Medications Acetaminophen (Acetaminophen 325 Mg Tablet) 650 mg PO Q6H PRN PRN Reason: Pain, Mild (Pain Scale 1-3) Last Admin: 01/29/22 13:42 Dose: 650 mg Documented by: FLYNN Albuterol/Ipratropium (Albuterol/Iprat 2.5/0.5mg 3 Ml Ampul.Neb) 3 ml INHALE RQ4H WHILE AWAKE [facility] Last Admin: 01/30/22 11:50 Dose: Not Given Documented by: GRACE Non-Admin Reason: Patient Refused Azithromycin (Azithromycin 250 Mg Tablet) 250 mg PO Q24H [facility] Stop: 02/02/22 09:01 Last Admin: 01/30/22 08:45 Dose: 250 mg Documented by: CLAYTON Enoxaparin Sodium (Enoxaparin Sodium 40 Mg/0.4 Ml Syringe) 40 mg SUBCUT Q24H [facility] Last Admin: 01/29/22 13:28 Dose: 40 mg Documented by: FLYNN Insulin Human Lispro (Insulin Lispro 100 Unit/Ml 3 Ml Vial) 0 unit SUBCUT QID ACHS [facility]; Protocol Last Admin: 01/30/22 12:07 Dose: Not Given Documented by: CLAYTON Non-Admin Reason: No Insulin Coverage Levothyroxine Sodium (Levothyroxine Sodium 112 Mcg Tablet) 112 mcg PO DAILY@0600 [facility] Last Admin: 01/30/22 06:03 Dose: 112 mcg Documented by: TOMAS Methylprednisolone Sodium Succinate (Methylprednisolone Sod Succ 40 Mg/Ml Vial) 40 mg IVPUSH BID [facility] Last Admin: 01/30/22 08:45 Dose: 40 mg Documented by: CLAYTON Mirtazapine (Mirtazapine 7.5 Mg Tablet) 7.5 mg PO BEDTIME [facility] Last Admin: 01/29/22 21:11 Dose: 7.5 mg Documented by: TOMAS Montelukast Sodium (Montelukast Sodium 10 Mg Tablet) 10 mg PO BEDTIME [facility] Last Admin: 01/29/22 21:11 Dose: 10 mg Documented by: TOMAS Multivitamins/Vitamin C (Multivitamin Tablet) 1 tab PO DAILY [facility] Last Admin: 01/30/22 08:45 Dose: 1 tab Documented by: CLAYTON Omeprazole (Omeprazole 20 Mg Capsule.Dr) 20 mg PO DAILY@0630 [facility] Last Admin: 01/30/22 06:03 Dose: 20 mg Documented by: TOMAS Ondansetron HCl (Ondansetron Hcl 4 Mg/2 Ml Vial) 4 mg IVPUSH Q8H PRN PRN Reason: Nausea and Vomiting Sodium Chloride (0.9 % Sodium Chloride Flush 3 Ml Syringe) 3 ml IVFLUSH QSHIFT [facility] Last Admin: 01/30/22 08:45 Dose: 3 ml Documented by: CLAYTON Theophylline (Theophylline Anhydrous Er 400 Mg Tab.Er.24h) 400 mg PO DAILY [facility] Last Admin: 01/30/22 08:45 Dose: 400 mg Documented by: CLAYTON Labs CBC & Chem 7: 01/29/22 07:59 01/29/22 07:59 Labs: Laboratory Results - last 24 hr 01/29/22 01/29/22 01/29/22 12:32 18:16 19:57 POC Glucose 172 H 204 H 129 H 01/30/22 01/30/22 06:54 11:17 POC Glucose 143 H 121 H Microbiology Microbiology Results: Microbiology 01/29/22 07:59 Blood Culture - Preliminary Blood - Venous No growth after 24 hours. 01/29/22 07:51 Blood Culture - Preliminary Blood - Venous No growth after 24 hours. Assessment and Plan (1) COPD exacerbation: Status: Acute (2) Tobacco dependence: Status: Acute Plan 76 yo M with a PMH of COPD, DM, Hypothryoidism, HTN presents to the hospital after sudden onset of dyspnea not responsive to home inhalers / bronchodilators. He has been treated with systemic steroids and continuous bronchodilators x 2 with some improvement in his symptoms. He remains short of breath with wheezing (but no hypoxia) and now will be admitted (under obs) for further care. 1. Acute exacerbation of COPD likely secondary to acute bacterial bronchitis and tobacco use Persistent shortness of breath worse with exertion continue IV solu- medrol,Scheduled + PRN bronchodilators Zithromax x 5 days continue theophyllin/montelukast, transition to by mouth steroids once clinically stable 2. DM, type 2 Stable blood sugars continue insulin sliding scale resume metformin upon discharge diabetic diet 3. GERD No acute symptoms continue PPI 4. Hypothyroidism synthroid 5. Mood continue baseline meds 6. Tobacco use disorder counseling done Full Code DVT pptx, Lovenox Due to persistent shortness of breath bilateral expiratory rhonchi, dyspnea on exertion will continue current treatment with IV steroid/updrafts Quality Stroke Does the patient have a stroke diagnosis?: No VTE Prior VTE?: No VTE Risk Level:: Medical - moderate - high VTE Device Contraindication: Treatment Not Indicated VTE Drug Contraindication: N/A - Med Ordered
[2022-01-30] MEDS: Enoxaparin Sodium 40 MG/0.4 ML SYRINGE SUBCUT (12:10)
--- NOTE | 2022-01-30 14:56 | MHC.CM.PN ---
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 CONFIRMED WITH HIM PCP PARISA HERNANDEZ, HCP IS HIS SISTER RQUESTED COPY TO BE BROUGHT IN OR MAILED TO [facility] FAMILY COVID 19 VACINATIONS MODERNA X2 DOES NOT REMBER THE DATES OBSERVATION PAPERWORK COMPLETED 01/30/22
[2022-01-30 16:16] LABS: Glucose, Whole Blood 158 mg/dL (60-115)
[2022-01-30] MEDS: Insulin Lispro 100 UNIT/ML 3 ML VIAL SUBCUT ×2 (16:46→20:31)
[2022-01-30 20:23] LABS: Glucose, Whole Blood 197 mg/dL (60-115)
[2022-01-30] MEDS: Montelukast Sodium 10 MG TABLET PO (20:31)
[2022-01-30] MEDS: Mirtazapine 7.5 MG TABLET PO (20:31)
[2022-01-30] MEDS: Benzonatate 100 MG CAPSULE PO (21:01)
[2022-01-31 04:00] VITALS: BP 136/61; PULSE 62; RESP 16; TEMP 36.1; O2SAT 98
[2022-01-31] MEDS: Omeprazole 20 MG CAPSULE.DR PO (05:25)
[2022-01-31] MEDS: Levothyroxine Sodium 112 MCG TABLET PO (05:25)
[2022-01-31 07:07] VITALS: BP 128/61; PULSE 60; RESP 18; TEMP 36.4; O2SAT 99
[2022-01-31 07:12] LABS: Glucose, Whole Blood 140 mg/dL (60-115)
[2022-01-31] MEDS: Albuterol/Iprat 2.5/0.5MG 3 ML AMPUL.NEB INHALE (08:15)
[2022-01-31 08:18] VITALS: PULSE 53; RESP 16; O2SAT 100
[2022-01-31] MEDS: 0.9 % Sodium Chloride Flush 3 ML SYRINGE IVFLUSH (08:22)
[2022-01-31] MEDS: Theophylline Anhydrous ER 400 MG TAB.ER.24H PO (08:22)
[2022-01-31] MEDS: Multivitamin TABLET 1 TAB PO (08:22)
[2022-01-31] MEDS: Azithromycin 250 MG TABLET PO (08:22)
[2022-01-31] MEDS: methylPREDNISolone Sod Succ 40 MG/ML VIAL IVPUSH (08:22)
[2022-01-31 10:36] LABS: Glucose, Whole Blood 175 mg/dL (60-115)
--- NOTE | 2022-01-31 10:42 | PM.DS ---
DS: Providers Provider Date of Service: 01/31/22 Date of admission: 01/29/22 11:17 Primary care physician: Luz Mccall NP DS: Diagnosis Discharge Diagnosis (1) COPD exacerbation: Status: Acute (2) Tobacco dependence: Status: Acute DS: Summary Hospital Course Hospital Course: History of presenting illness Chief Complaint: asthma attack This is a 76 yo M with a PMH of COPD, DM, Continued tobacco use despite recurrent hospitalizations for copd exacerbations, hypothyroid who [place] [facility] [place] with complaints of sudden onset dyspnea after he woke up this morning. Patient endorses a chronic cough, but slightly increased in productivity over the last several days -- whitish/yellow sputum. He denies any fevers or chills. He reports feeling at baseline the preceeding 24 hours prior to ED arrival. He reports compliance with his inhalers / nebulizers. He reports smoking 2-3 cigarettes daily. He denies any sick contacts. He reports that due to the recent cold weather, he has a flare of his asthma. In the ED, the patient was treated with systemic steroids, several nebulized bronchodilators and antibiotics. He remains symptomatic with wheezing / REED and so now will be admitted (under observation) for further treatment. Hospital course 76 yo M with a PMH of COPD, DM, Hypothryoidism, HTN? presents to the hospital after sudden onset of dyspnea not responsive to home inhalers / bronchodilators, patient treated in the emergency room with systemic steroids, bronchodilators with some improvement therefore admitted to hospital with persistent symptoms of shortness of breath, wheezing and cough likely due to acute COPD exacerbation secondary to continued tobacco use and acute bacterial bronchitis, patient treated with IV steroids, scheduled and as needed bronchodilators and azithromycin patient was also continued on theophylline and montelukast patient responded well to above treatment currently seems to be at baseline therefore being discharged home on by mouth azithromycin to finish a total 5 day course of antibiotics recommend to continue home dose of steroids and updraft treatment he has been strongly advised to abstain from smoking. Patient is gradually weaning, currently smoking 5-8 cigarettes, he declined nicotine patch. During the course of hospitalization patient was also managed for diabetes mellitus x2 with insulin sliding scale and diabetic diet and instructed to resume metformin upon discharge In regard to GERD he had no acute symptoms continue PPI Hypothyroidism continue Synthroid Time Spent with Patient Time attestation: Total time spent providing and/or coordinating discharge services: Discharge coordination time: Greater than 30 minutes Quality: Stroke Does the patient have a stroke diagnosis?: No Physical Exam Vital Signs: Vital Signs: Last Vital Signs Temp 97.6 F 01/31/22 07:07 Pulse 53 01/31/22 08:18 Resp 16 01/31/22 08:18 BP 128/61 01/31/22 07:07 Pulse Ox 99 01/31/22 07:07 Oxygen Flow Rate 7 01/29/22 07:28 BMI result Body Mass Index 18.6 Const: Other: Constitutional - Awake and Alert, no?acute distress Neck is supple no JVD Cardiovascular -? S1S2, RRR, No edema Respiratory -clear to auscultation, few scattered wheeze, No use?of accessory muscles Gastrointestinal -?nontender bowel sounds audible - No CVA tenderness Extremities?- no swelling Skin - Warm/Dry Neurological -? Alert & oriented x3, No focal deficit Psychological - Appropriate affect DS: Data Data Completed and Pending Completed studies during hospitalization [Text1]: Procedures Dilation of Right Ureter with Intraluminal Device, Via Natural or Artificial Opening Endoscopic (11/16/21) Extirpation of Matter from Right Ureter, Via Natural or Artificial Opening Endoscopic (11/16/21) Fluoroscopy of Right Kidney, Ureter and Bladder (11/16/21) Labs on day of discharge: Laboratory Results - last 24 hr 01/30/22 01/30/22 01/30/22 11:17 15:15 19:48 POC Glucose 121 H 158 H 197 H 01/31/22 01/31/22 07:05 10:31 POC Glucose 140 H 175 H Preliminary micro results at discharge 01/29/22 07:59 Blood Culture - Preliminary Blood - Venous No growth after 48 hours. 01/29/22 07:51 Blood Culture - Preliminary Blood - Venous No growth after 48 hours. Discharge Plan Discharge Patient Disposition: Home, Self-Care Discharge Diagnosis: Acute COPD exacerbation Tobacco use disorder Referrals: Luz Mccall NP [Primary Care Provider] - 1 Week Discharge Medications: New benzonatate 100 mg Capsule 100 mg PO TID PRN (Reason: Cough) Qty: 20 0RF azithromycin 250 mg Tablet 250 mg PO Q24H Qty: 3 0RF Continued metformin 500 mg tablet 500 mg PO DAILY 0RF levothyroxine 112 mcg tablet 112 mcg PO DAILY@0600 0RF omeprazole 20 mg capsule,delayed release(DR/EC) 20 mg PO DAILY 0RF ipratropium-albuterol 0.5 mg-3 mg(2.5 mg base)/3 mL solution for nebulization 1 vial inhalation QID PRN (Reason: asthma) 0RF multivitamin Tablet 1 tab PO DAILY 0RF mirtazapine 7.5 mg Tablet 7.5 mg PO BEDTIME 0RF montelukast 10 mg Tablet 10 mg PO BEDTIME 0RF Daliresp 500 mcg Tablet 500 mcg PO DAILY 0RF albuterol sulfate [ProAir HFA] 90 mcg/actuation Hfa Aerosol Inhaler 2 puff INHALATION Q4H PRN (Reason: Respiratory Distress) 0RF testosterone cypionate 200 mg/mL Kit 100 mg IM Q2W 0RF Trelegy Ellipta 200-62.5-25 mcg blister with device 1 puff inhalation DAILY 0RF prednisone 10 mg tablet 1.5 tab PO DAILY 0RF nabumetone 500 mg tablet 1 tab PO BID PRN (Reason: knee pain) 0RF duloxetine 30 mg capsule,delayed release(DR/EC) 1 cap PO DAILY PRN (Reason: pain) 0RF theophylline 400 mg tablet extended release 24 hr 400 mg PO DAILY 30 Days Qty: 30 6RF Discharge Orders: Discharge Order (Routine); Ordered 01/31/22 Ordered By: Marshal Hernandez Diet: diabetic diet and low fat, low cholesterol Activity on Discharge: As tolerated Stand Alone Forms: Patient Portal Discharge page Care Plan Goals: COPD exacerbation due to bronchitis and continued tobacco use strongly advised to abstain from smoking take azithromycin 250 mg by mouth daily for 3 more days take cough medication as needed, continue home dose of prednisone 15 mg daily and gradually wean as per PCP Health Concerns: Tobacco use disorder/COPD/diabetes mellitus type 2 continue home medications as before, completely abstain from smoking Plan of Treatment: Follow-up with PCP in 1 week Assessment: Per discharge summary
[2022-01-31 11:12] VITALS: BP 115/56; PULSE 66; RESP 18; TEMP 36.3; O2SAT 99
--- NOTE | 2022-01-31 11:19 | MHC.CM.PN ---
PATIENT IS DC HOME - SELF CARE. HIS BROTHER IS IN ROUTE TO TRANSPORT. RN AWARE OF PLAN
[2022-01-31] MEDS: Insulin Lispro 100 UNIT/ML 3 ML VIAL SUBCUT (11:52)
[2022-01-31] MEDS: Enoxaparin Sodium 40 MG/0.4 ML SYRINGE SUBCUT (11:52)
== END 2022-01-31 12:30 | disposition home or self-care (01) ==
LOC: HO.ED 09:47 → HO.EDOVER 11:27 → HO.S3 18:42
PROVIDERS: Admitting Provider Family Medicine; Emergency Provider Emergency Medicine; PCP Nurse Practitioner Family; Visit Provider Hospitalist
DX: J44.1 Chronic obstructive pulmonary disease with (acute) exacerbation (principal); E11.9 Type 2 diabetes mellitus without complications; I10 Essential (primary) hypertension; E03.9 Hypothyroidism, unspecified; M81.0 Age-related osteoporosis without current pathological fracture; J30.1 Allergic rhinitis due to pollen; F17.210 Nicotine dependence, cigarettes, uncomplicated; U07.0 Vaping-related disorder; Z20.822 Contact with and (suspected) exposure to COVID-19; Z88.8 Allergy status to other drugs, medicaments and biological substances; Z91.013 Allergy to seafood; Z99.81 Dependence on supplemental oxygen; Z79.84 Long term (current) use of oral hypoglycemic drugs; Z79.52 Long term (current) use of systemic steroids; Z79.899 Other long term (current) drug therapy
CPT/HCPCS: 36415; 71045; 80048; 80076; 82803; 82947; 83605; 83735; 84484; 85025; 87040; 87635; 93005; 94640; 94644; 96365; 96366; 96372; 96375; 96376; 99218; 99285; 99291; J0456; J0696; J1650; J2920; J2930; J3475

== ENCOUNTER → 2022-02-04 15:03 | Outpatient (BNVA) | payer MEDICARE, MEDICAID, SELFPAY | PROVIDERS: PCP Nurse Practitioner Family; Visit Provider Urology | DX: N20.0 Calculus of kidney (principal) | CPT/HCPCS: 99212 ==

== ENCOUNTER 2022-02-25 12:54 | Day surgery (SDC) | payer MEDICARE, MEDICAID, SELFPAY ==
[2022-02-25] VITALS (10 sets, daily range): BP systolic 119–132; BP diastolic 54–57; PULSE 59–65; RESP 16–18; TEMP 36.8–37; O2SAT 94–97; BMI 18.1
--- NOTE | ~2022-02-25 | XR_ITS ---
EXAMINATION: XR CHEST CLINICAL INFORMATION: Status post lung biopsy. COMPARISON: Chest radiograph 01/29/2022 TECHNIQUE: Frontal view of the chest was obtained. FINDINGS: Compared to the prior study from 01/29/2022 there has been no interval change. No pneumothorax is detected. COPD and mid right lung mass again noted. XR/XR chest 1V IMPRESSION: No pneumothorax status post lung biopsy
--- NOTE | ~2022-02-25 | CT_ITS ---
PROCEDURE: CT GUIDED BIOPSY, LUNG CLINICAL INFORMATION: Right lung nodule COMPARISON: Previous chest CTA September 2021 TECHNIQUE: Procedure and risks and benefits including bleeding, infection and pneumothorax were discussed with the patient and informed consent was obtained. The patient was positioned in the right decubitus position. Limited axial images through the chest were performed. The right posterior chest was prepped and draped in the usual sterile fashion. Using CT guidance and a 22-gauge needle, access to the right lower lobe nodule was obtained. 2 22-gauge FNA specimens were obtained. There is no complication. The patient received Versed 0.5 mg and fentanyl 25 mg intravenously during the procedure. Total sedation time was [address] examination was performed using dose optimization techniques as appropriate, variously including the following: *Automated exposure control *Adjustment of mA and/or kV according to patient size (this includes techniques or standardized protocols for targeted exams where dose is matched to indication/reason for exam; i.e. extremities or head) *Use of iterative reconstruction technique DLP: 48 mGy-cm FINDINGS: There is a 2.5 cm right lower lobe nodule was targeted for fine-needle aspiration. Postbiopsy images demonstrate no pneumothorax. CT/CT biopsy lung RT IMPRESSION: CT-guided right lower lobe fine-needle aspiration.
[2022-02-25 13:33] LABS: Basophils Percent Auto 0.2 % (0-2); Eosinophils Percent Auto 0.1 % (0-4); Hematocrit 35.5 % (42.0-52.0); Hemoglobin 10.6 g/dl (14.0-18.0); Imm Gran Abs Auto 0.04 X10*3/uL (0.00-0.03); Imm Gran Pct Auto 0.4 % (0.0-0.4); Lymphocytes Absolute Auto 0.5 X10*3/uL (1.2-4.9); Lymphocytes Percent Auto 5.5 % (20-40); MANUAL DIFF FLAG SCAN; Mean Corpuscular HGB Conc 29.9 g/dl (31.0-36.0); Mean Corpuscular Hemoglobin 23.9 pg (27.0-33.0); Mean Platelet Volume 9.8 fL (9.4-12.4); Monocytes Absolute Auto 0.1 X10*3/uL (0.1-1.2); Neutrophils Absolute Auto 8.3 x10*3/uL (2.0-8.3); Neutrophils Percent Auto 92.8 % (45-73); Platelet Count 351 X10*3/uL (160-400); Red Blood Count 4.44 X10*6/uL (4.60-5.80); Red Cell Distribution Width 17.2 % (11.0-16.0); SCAN SMEAR FLAG 1
[2022-02-25 13:38] LABS: Glucose, Whole Blood 149 mg/dL (60-115)
[2022-02-25 13:40] LABS: Prothrombin Time 11.8 SEC (9.9-13.0)
[2022-02-25 13:43] LABS: Partial Thromboplastin Time 36.6 SEC (24.1-38.0)
[2022-02-25] MEDS: Albuterol/Iprat 2.5/0.5MG 3 ML AMPUL.NEB INHALE (13:50)
[2022-02-25 14:12] LABS: SLIDE REVIEW VERIFIED
[2022-02-25] MEDS: Lidocaine HCl 1 % 20 ML VIAL SUBCUT (15:02)
--- NOTE | 2022-02-25 15:03 | HO.RADPN ---
RADIOLOGY Narrative Narrative: right lower lobe larger more superior nodule fna. 2 22 g fna. no complication
== END 2022-02-25 18:24 | disposition home or self-care (01) ==
PROVIDERS: Radiology Diagnostic Radiology; PCP Nurse Practitioner Family; Visit Provider Radiology Diagnostic Radiology
DX: C34.31 Malignant neoplasm of lower lobe, right bronchus or lung (principal); J44.9 Chronic obstructive pulmonary disease, unspecified; F17.210 Nicotine dependence, cigarettes, uncomplicated
CPT/HCPCS: 10009; 32408; 36415; 71045; 81235; 81275; 81276; 82947; 85025; 85610; 85730; 88172; 88173; 88305; 88341; 88342; 88360; 94640; 99152; J2250; J3010

== ENCOUNTER 2022-03-14 14:28 | Emergency (ER) | payer MEDICARE, MEDICAID, SELFPAY ==
--- NOTE | ~2022-03-14 | XR_ITS ---
EXAMINATION: XR CHEST CLINICAL INFORMATION: Dyspnea COMPARISON: February 25, [address] scanning of October 21, 2021 TECHNIQUE: AP portable view of the chest was obtained. FINDINGS: There is stable appearance of the chest with prominent calcified pleural plaque about the upper right lung and some bullous formation. No definite pneumothorax is appreciated. Lungs are hyperinflated. No confluent parenchymal disease. Calcified granulomas seen at the left base. There is a right hilar density probably corresponding to a previously biopsied mass. XR/XR chest 1V IMPRESSION: Stable appearance of the chest as described above without confluent pneumonitis. Right lung mass.
--- NOTE | 2022-03-14 14:39 | ECG_ITS ---
Test Reason : DSYPNEA Blood Pressure : / mmHG Vent. Rate : 079 BPM Atrial Rate : 079 BPM P-R Int : 136 ms QRS Dur : 088 ms QT Int : 336 ms P-R-T Axes : 070 052 065 degrees QTc Int : 385 ms Sinus rhythm with Premature atrial complexes Otherwise normal ECG When compared with ECG of 29-JAN-2022 07:35, Premature atrial complexes are now Present Referred By: Kajal Peralta Electronically Signed By:Anoop Gentile
[2022-03-14 14:51] LABS: MANUAL DIFF FLAG NO
[2022-03-14] MEDS: Albuterol Sulfate (0.083%) 2.5 MG/3 ML VIAL.NEB 10 MG INHALE (14:51)
[2022-03-14 14:52] VITALS: PULSE 74; RESP 18; O2SAT 94
[2022-03-14 14:53] LABS: Basophils Percent Auto 0.4 % (0-2); Eosinophils Absolute Auto 0.2 X10*3/uL (0.0-0.4); Eosinophils Percent Auto 2.7 % (0-4); Hematocrit 36.6 % (42.0-52.0); Hemoglobin 11.3 g/dl (14.0-18.0); Imm Gran Abs Auto 0.03 X10*3/uL (0.00-0.03); Imm Gran Pct Auto 0.4 % (0.0-0.4); Lymphocytes Absolute Auto 1.4 X10*3/uL (1.2-4.9); Lymphocytes Percent Auto 19.6 % (20-40); Mean Corpuscular HGB Conc 30.9 g/dl (31.0-36.0); Mean Corpuscular Hemoglobin 24.5 pg (27.0-33.0); Mean Corpuscular Volume 79.4 fL (80.0-98.0); Mean Platelet Volume 9.9 fL (9.4-12.4); Monocytes Absolute Auto 0.6 X10*3/uL (0.1-1.2); Monocytes Percent Auto 7.5 % (2-11); Neutrophils Absolute Auto 5.1 x10*3/uL (2.0-8.3); Neutrophils Percent Auto 69.4 % (45-73); Platelet Count 356 X10*3/uL (160-400); Red Blood Count 4.61 X10*6/uL (4.60-5.80); Red Cell Distribution Width 17.5 % (11.0-16.0); White Blood Count 7.3 X10*3/uL (4.8-10.8)
[2022-03-14 14:54] VITALS: BP 123/89; PULSE 75; RESP 26; TEMP 36.6; O2SAT 87; BMI 25.7
[2022-03-14 14:55] VITALS: RESP 20; O2SAT 96
[2022-03-14 14:55] LABS: Venous Blood Gas Refer to POC result
[2022-03-14] MEDS: methylPREDNISolone Sod Succ 125 MG/2 ML VIAL IVPUSH (14:56)
[2022-03-14 14:57] LABS: VBG Base Excess 3.3 mmol/L; VBG HCO3 25 mmol/L (22-26); VBG pCO2 31 mmHg; VBG pH 7.51 (7.32-7.43); VBG pO2 136 mmHg
--- NOTE | 2022-03-14 15:05 | ED.ASTHMA ---
HPI - Asthma General Chief Complaint: Dyspnea Stated Complaint: diff breathing asthma Time Seen by Provider: 03/14/22 14:39 Source: patient and old records reviewed Mode of arrival: ambulatory Limitations: no limitations History of Present Illness MD complaint: asthma attack , shortness of breath and wheezing Onset (ago): day(s) (1) Severity: moderate and similar to prior Context: smoke exposure Associated symptoms: dry cough Asthma History: childhood onset and adult onset Treatments Prior to Arrival: inhaled bronchodilator Related Data Home Medications Medication Instructions Recorded Confirmed metformin 500 mg tablet 500 mg PO DAILY 09/28/20 01/29/22 levothyroxine 112 mcg tablet 112 mcg PO DAILY@0600 12/01/20 01/29/22 omeprazole 20 mg capsule,delayed 20 mg PO DAILY 12/01/20 01/29/22 release ipratropium 0.5 mg-albuterol 3 mg 1 vial INHALATION QID PRN 08/06/21 01/29/22 (2.5 mg base)/3 mL nebulization soln multivitamin 1 tab PO DAILY 08/06/21 01/29/22 fluticasone fur. 200 mcg-umeclid 1 puff INHALATION DAILY 10/21/21 01/29/22 62.5 mcg-vilant 25 mcg inhalat.powder (Trelegy Ellipta) mirtazapine 7.5 mg tablet 7.5 mg PO BEDTIME 11/16/21 01/29/22 montelukast 10 mg tablet 10 mg PO BEDTIME 11/16/21 01/29/22 roflumilast 500 mcg tablet 500 mcg PO DAILY 11/16/21 01/29/22 (Daliresp) testosterone cypionate 200 mg/mL 100 mg IM Q2W 11/16/21 01/29/22 intramuscular kit duloxetine 30 mg capsule,delayed 1 cap PO DAILY PRN 01/29/22 01/29/22 release nabumetone 500 mg tablet 1 tab PO BID PRN 01/29/22 01/29/22 prednisone 10 mg tablet 1.5 tab PO DAILY 01/29/22 01/29/22 betamethasone valerate 0.1 % TOPICAL 02/04/22 topical ointment Previous Rx's Medication Instructions Recorded theophylline 400 mg 400 mg PO DAILY 30 Days #30 tab 10/08/21 tablet,extended release 24 hr azithromycin 250 mg tablet 250 mg PO Q24H #3 tab 01/31/22 benzonatate 100 mg capsule 100 mg PO TID PRN #20 cap 01/31/22 pyridoxine (vitamin B6) 100 mg 100 mg PO DAILY 90 Days #90 tab 02/04/22 tablet Ventolin HFA 90 mcg/actuation 2 puff PO Q6H PRN #18 ea NS 03/03/22 aerosol inhaler (albuterol sulfate) Allergies Allergy/AdvReac Type Severity Reaction Status Date / Time shellfish derived Allergy Severe ANAPHYLAXIS Verified 02/04/22 15:05 [SHELLFISH DERIVED] pollen extracts [POLLEN] Allergy Intermediate RUNNING Verified 02/04/22 15:05 NOSE, WATERY EYES, SNEEZING varenicline [VARENICLINE] AdvReac Unknown PALPITATION Verified 02/04/22 15:05 S Review of Systems Review of Systems: Constitutional : No Fever, No Chills ENT/Mouth : No Hoarseness, No sore throat, No Rhinorrhea Eyes: No Redness, No Discharge, No Vision Changes Cardiovascular : No Chest Pain, positive SOB, positive Dyspnea on Exertion, No Edema Respiratory : positive Cough, No Sputum, positive Wheezing, Gastrointestinal : No Nausea, No Vomiting, No Diarrhea, No abdominal Pain Genitourinary : No Dysuria, No Hematuria Musculoskeletal : No joint pain, No Myalgias Skin : No rash Neuro : No Weakness, No Numbness, No Headache Psych : No anxiety, depression Heme/Lymph: No Bruising, No Bleeding Endocrine : No Polyuria, No Polydipsia All other systems reviewed and are negative PMFSH Past Medical History Attestation statement: The following information was validated with the patient. Medical History Asthma Cataract Chronic respiratory failure COPD (chronic obstructive pulmonary disease) COPD (chronic obstructive pulmonary disease) Diabetes GERD (gastroesophageal reflux disease) Hypertension Hypothyroidism Osteoarthritis Osteoporosis Oxygen dependent Sepsis Tobacco dependence Ureteral calculi Surgical History History of appendectomy Hx of cataract surgery Family History Family History Other Hypertension Social History Social History Household Members: Spouse Housing: Apartment Do you presently have visiting nurse or other home services: No Alcohol intake: never Patient Tobacco Use Status: Current everyday Tobacco user Tobacco use type: Cigarette Cigarette Packs Per Day: 0.5 Cigarettes Per Day: 2 Years Smoked: 50 e-Cigarette/Vaping Use: Currently Using Second Hand Smoke Exposure: No Advance Directives: Yes Advance Directives on File: Yes Advance Directives Date on File: 12/18/20 service: No Current occupational status: unemployed and retired Physical Exam Vital Signs: Vital Signs: Last Vital Signs Temp 97.9 F 03/14/22 14:54 Pulse 75 03/14/22 14:54 Resp 20 03/14/22 14:55 BP 123/89 03/14/22 14:54 Pulse Ox 96 03/14/22 14:55 BMI result Body Mass Index 25.7 Appearance: Alert. Oriented X3. Mild acute distress. Eyes: Pupils equal, round and reactive to light. ENT: Pharynx normal. Neck: Normal inspection. Neck supple. CVS: Normal heart rate and rhythm. Pulses normal. Respiratory: Mild respiratory distress - retractions and tachypnea. Breath sounds diffuse end exp wheezes Abdomen: Soft and non-tender. Skin: Skin warm and dry. Normal skin color. Normal skin turgor. Extremities: No lower extremity edema. No calf ttp Neuro: Oriented X 3. No motor deficit. No sensory deficit. Course Course Course Narrative: seems better will continue to monitor repeat neb ordered 5mg neb signed out to Maria D PRADO MDM - Asthma MDM Narrative Medical decision making narrative: 76 yo male with hx of asthma and he still smokes frequent visits for same - on daily steroids. At this time comes in with exacerbation denies fevers - will obtain labs, CXR, hour long 10mg neb. IV steroids. Dispo per results and findings. Lab Data Result diagrams: 03/14/22 14:45 03/14/22 14:47 Labs: Lab Results 03/14/22 03/14/22 03/14/22 Range/Units 14:45 14:45 14:45 WBC 7.3 (4.8-10.8) X10*3/uL RBC 4.61 (4.60-5.80) X10*6/uL Hgb 11.3 L (14.0-18.0) g/dl Hct 36.6 L (42.0-52.0) % MCV 79.4 L (80.0-98.0) fL MCH 24.5 L (27.0-33.0) pg MCHC 30.9 L (31.0-36.0) g/dl RDW 17.5 H (11.0-16.0) % Plt Count 356 (160-400) X10*3/uL MPV 9.9 (9.4-12.4) fL Immature Gran % (Auto) 0.4 (0.0-0.4) % Neut % (Auto) 69.4 (45-73) % Lymph % (Auto) 19.6 L (20-40) % Person % (Auto) 7.5 (2-11) % Eos % (Auto) 2.7 (0-4) % Baso % (Auto) 0.4 (0-2) % Lymph # (Auto) 1.4 (1.2-4.9) X10*3/uL Person # (Auto) 0.6 (0.1-1.2) X10*3/uL Eos # (Auto) 0.2 (0.0-0.4) X10*3/uL Baso # (Auto) 0.0 (0.0-0.2) X10*3/uL Abs Immat Gran (auto) 0.03 (0.00-0.03) X10*3/uL Absolute Neuts (auto) 5.1 (2.0-8.3) x10*3/uL Absolute Nucleated RBC 0.000 (0.0-0.012) X10*3/uL Nucleated RBC % (auto) 0.0 (0.0-0.2) /100WBC VBG pH (7.32-7.43) VBG pCO2 mmHg VBG pO2 mmHg VBG HCO3 (22-26) mmol/L VBG O2 Saturation % VBG Base Excess mmol/L Sodium (135-145) mmol/L Potassium (3.3-5.1) mmol/L Chloride (96-108) mmol/L Carbon Dioxide (22-29) mmol/L Anion Gap (12-20) BUN (9-16) mg/dL Creatinine (0.5-1.4) mg/dL Estim Creat Clear Calc Estimated GFR Random Glucose (60-115) mg/dL Calcium (8.4-10.2) mg/dL Magnesium (1.6-2.6) mg/dL Total Bilirubin (0.0-1.0) mg/dL Direct Bilirubin (0.0-0.5) mg/dL AST (5-37) U/L ALT (0-40) U/L Alkaline Phosphatase (39-117) U/L Troponin I High Sens < 3.5 (<3.5-35.0) ng/L Total Protein (6.5-8.0) g/dL Albumin (3.5-5.0) g/dL COVID-19 (ELIO) Negative (Negative) COVID-19 Clin Com See Note 03/14/22 03/14/22 Range/Units 14:47 14:49 WBC (4.8-10.8) X10*3/uL RBC (4.60-5.80) X10*6/uL Hgb (14.0-18.0) g/dl Hct (42.0-52.0) % MCV (80.0-98.0) fL MCH (27.0-33.0) pg MCHC (31.0-36.0) g/dl RDW (11.0-16.0) % Plt Count (160-400) X10*3/uL MPV (9.4-12.4) fL Immature Gran % (Auto) (0.0-0.4) % Neut % (Auto) (45-73) % Lymph % (Auto) (20-40) % Person % (Auto) (2-11) % Eos % (Auto) (0-4) % Baso % (Auto) (0-2) % Lymph # (Auto) (1.2-4.9) X10*3/uL Person # (Auto) (0.1-1.2) X10*3/uL Eos # (Auto) (0.0-0.4) X10*3/uL Baso # (Auto) (0.0-0.2) X10*3/uL Abs Immat Gran (auto) (0.00-0.03) X10*3/uL Absolute Neuts (auto) (2.0-8.3) x10*3/uL Absolute Nucleated RBC (0.0-0.012) X10*3/uL Nucleated RBC % (auto) (0.0-0.2) /100WBC VBG pH 7.51 H (7.32-7.43) VBG pCO2 31 mmHg VBG pO2 136 mmHg VBG HCO3 25 (22-26) mmol/L VBG O2 Saturation 100.0 % VBG Base Excess 3.3 mmol/L Sodium 139 (135-145) mmol/L Potassium 4.3 (3.3-5.1) mmol/L Chloride 103 (96-108) mmol/L Carbon Dioxide 25 (22-29) mmol/L Anion Gap 15 (12-20) BUN 8 L (9-16) mg/dL Creatinine 0.82 (0.5-1.4) mg/dL Estim Creat Clear Calc 63.6 Estimated GFR > 60 Random Glucose 125 H (60-115) mg/dL Calcium 9.0 (8.4-10.2) mg/dL Magnesium 2.1 (1.6-2.6) mg/dL Total Bilirubin 0.6 (0.0-1.0) mg/dL Direct Bilirubin 0.2 (0.0-0.5) mg/dL AST 14 (5-37) U/L ALT 10 (0-40) U/L Alkaline Phosphatase 110 (39-117) U/L Troponin I High Sens (<3.5-35.0) ng/L Total Protein 6.4 L (6.5-8.0) g/dL Albumin 3.8 (3.5-5.0) g/dL COVID-19 (ELIO) (Negative) COVID-19 Clin Com ECG Data Attestation: I personally reviewed and interpreted this ECG as follows: ECG interpretation date: 03/14/22 ECG interpretation time: 15:06 Interpretation: Rate: 79 Rhythm: NSR Harrison: normal Normal P waves. Normal JOHAN. Normal QRS complex. ST T wave : inverted aVL, no MARIA DEL ROSARIO qTC: normal prior studies: no acute ischemia The study has been interpreted contemporaneously by me. . Critical Care Time Critical Care Time Critical Care Time: Yes Total Critical Care Time: 45 Attestation: repeat hour long nebs I attest to this time spent taking care of the patient Discharge Plan Discharge Clinical Impression: Asthma Qualifiers: Asthma severity: severe Asthma persistence: persistent Asthma complication type: with acute exacerbation Qualified Code(s): J45.51 - Severe persistent asthma with (acute) exacerbation Patient Disposition: Still a Patient Prescriptions: No Action albuterol sulfate [Ventolin HFA] 90 mcg/actuation HFA aerosol inhaler 2 puff PO Q6H PRN (Reason: shortness of breath or wheezing) Qty: 18 3RF metformin 500 mg tablet 500 mg PO DAILY 0RF levothyroxine 112 mcg tablet 112 mcg PO DAILY@0600 0RF omeprazole 20 mg capsule,delayed release(DR/EC) 20 mg PO DAILY 0RF ipratropium-albuterol 0.5 mg-3 mg(2.5 mg base)/3 mL solution for nebulization 1 vial inhalation QID PRN (Reason: asthma) 0RF multivitamin Tablet 1 tab PO DAILY 0RF mirtazapine 7.5 mg Tablet 7.5 mg PO BEDTIME 0RF montelukast 10 mg Tablet 10 mg PO BEDTIME 0RF Daliresp 500 mcg Tablet 500 mcg PO DAILY 0RF testosterone cypionate 200 mg/mL Kit 100 mg IM Q2W 0RF Trelegy Ellipta 200-62.5-25 mcg blister with device 1 puff inhalation DAILY 0RF prednisone 10 mg tablet 1.5 tab PO DAILY 0RF nabumetone 500 mg tablet 1 tab PO BID PRN (Reason: knee pain) 0RF duloxetine 30 mg capsule,delayed release(DR/EC) 1 cap PO DAILY PRN (Reason: pain) 0RF benzonatate 100 mg Capsule 100 mg PO TID PRN (Reason: Cough) Qty: 20 0RF azithromycin 250 mg Tablet 250 mg PO Q24H Qty: 3 0RF theophylline 400 mg tablet extended release 24 hr 400 mg PO DAILY 30 Days Qty: 30 6RF betamethasone valerate 0.1 % ointment topical 0RF pyridoxine (vitamin B6) 100 mg tablet 100 mg PO DAILY 90 Days Qty: 90 1RF
[2022-03-14 15:06] LABS: Alanine Aminotransferase 10 U/L (0-40); Albumin Level 3.8 g/dL (3.5-5.0); Alkaline Phosphatase 110 U/L (39-117); Anion Gap 15 (12-20); Aspartate Amino Transferase 14 U/L (5-37); Bilirubin Direct 0.2 mg/dL (0.0-0.5); Bilirubin Total 0.6 mg/dL (0.0-1.0); Blood Urea Nitrogen 8 mg/dL (9-16); Carbon Dioxide 25 mmol/L (22-29); Chloride 103 mmol/L (96-108); Creatinine Clr Calc Pharmacy 63.6; Estimated Glomerular Filt Rate > 60; Glucose Random 125 mg/dL (60-115); Magnesium 2.1 mg/dL (1.6-2.6); Potassium 4.3 mmol/L (3.3-5.1); Sodium 139 mmol/L (135-145); Total Protein 6.4 g/dL (6.5-8.0)
[2022-03-14 15:09] LABS: COVID-19 Test Negative (Negative)
[2022-03-14 15:13] LABS: Troponin-I High Sensitivity < 3.5 ng/L (<3.5-35.0)
[2022-03-14] MEDS: Albuterol Sulfate (0.083%) 2.5 MG/3 ML VIAL.NEB 5 MG INHALE (16:15)
[2022-03-14 16:16] VITALS: PULSE 7; RESP 18; O2SAT 96
== END 2022-03-14 17:26 | disposition home or self-care (01) ==
PROVIDERS: Emergency Provider Emergency Medicine; PCP Nurse Practitioner Family
DX: J45.51 Severe persistent asthma with (acute) exacerbation (principal); J96.10 Chronic respiratory failure, unspecified whether with hypoxia or hypercapnia; I10 Essential (primary) hypertension; F17.210 Nicotine dependence, cigarettes, uncomplicated; Z99.81 Dependence on supplemental oxygen; Z20.822 Contact with and (suspected) exposure to COVID-19
CPT/HCPCS: 71045; 80048; 80076; 82803; 83735; 84484; 85025; 87635; 93005; 94640; 94644; 96374; 99283; 99291; J2930

== ENCOUNTER → 2022-03-19 11:14 | Outpatient (BNVA) | payer MEDICARE, MEDICAID, SELFPAY | PROVIDERS: PCP Nurse Practitioner Family; Visit Provider Internal Medicine Pulmonary Disease | DX: J44.9 Chronic obstructive pulmonary disease, unspecified (principal); C34.90 Malignant neoplasm of unspecified part of unspecified bronchus or lung; R94.8 Abnormal results of function studies of other organs and systems | CPT/HCPCS: 99212 ==

== ENCOUNTER 2022-04-08 10:07 | Outpatient (REF) | payer MEDICARE, MEDICAID, SELFPAY ==
--- NOTE | 2022-04-08 09:26 | PFT_ITS ---
Forced vital capacity is 68%, FEV1 39%, FEV1/FVC ratio 43, FEF 25-75 is 19%, and MVV 38%. Post-bronchodilator therapy, there is a small, but significant improvement in FVC, FEV1, and FEF 25-75. Total lung capacity 104%. Residual volume 159%. Diffusion capacity 31%. CONCLUSION: Severe obstructive airway disorder. Partial improvement is noted after bronchodilator therapy. There is evidence of air trapping. Clinical correlation is recommended. Jason Patel MD MSJessika/MODL / [id number]
== END 2022-04-08 10:08 | disposition home or self-care (01) ==
LOC: HO.RESP 10:07
PROVIDERS: PCP Nurse Practitioner Family; Visit Provider Internal Medicine Pulmonary Disease
DX: C34.90 Malignant neoplasm of unspecified part of unspecified bronchus or lung (principal); J44.9 Chronic obstructive pulmonary disease, unspecified; R91.8 Other nonspecific abnormal finding of lung field; F17.210 Nicotine dependence, cigarettes, uncomplicated; Z79.899 Other long term (current) drug therapy
CPT/HCPCS: 94060; 94618; 94727; 94729; 99212

== ENCOUNTER → 2022-04-10 09:31 | Outpatient (BNVA) | payer MEDICARE, MEDICAID, SELFPAY | PROVIDERS: PCP Nurse Practitioner Family; Visit Provider Surgery | DX: C34.90 Malignant neoplasm of unspecified part of unspecified bronchus or lung (principal); F17.210 Nicotine dependence, cigarettes, uncomplicated | CPT/HCPCS: 99202 ==

== ENCOUNTER → 2022-04-20 09:37 | Outpatient (BNV) | payer MEDICARE, MEDICAID, SELFPAY | PROVIDERS: PCP Nurse Practitioner Family; Referring Provider Surgery; Visit Provider Internal Medicine Medical Oncology | DX: C34.31 Malignant neoplasm of lower lobe, right bronchus or lung (principal) | CPT/HCPCS: 99204; 99212; 99213; 99214 ==

== ENCOUNTER 2022-04-29 12:47 | Outpatient (REF) | payer MEDICARE, MEDICAID, SELFPAY ==
--- NOTE | ~2022-04-29 | PE_ITS ---
EXAMINATION: PET/CT FUSION SKULL TO THIGH CLINICAL INFORMATION: Malignant neoplasm of right lung. Non-small cell lung carcinoma on CT biopsy. COMPARISON: CT biopsy 02/25/2022. CT chest 10/21/2021. PET/CT 10/21/2021. TECHNIQUE: Following intravenous administration of 12.3 mCi of F 18 FDG in right antecubital vein, whole-body PET emission scan was obtained from skull base to the proximal thigh and imaging obtained 60 minutes later. 3.[address] transmission scan was obtained in axial plane without oral or IV contrast. 3-D reformats and color fusion was performed on a separate workstation. Baseline glucose measures 120 and mg/DL. DLP 205 mGy-cm. FINDINGS: NECK AND VISUALIZED HEAD: There is no abnormal metabolic activity seen in the visualized brain or the neck. There is complete opacification of right maxillary sinus likely chronic inflammatory process. The rest of the paranasal sinuses and mastoid air cells are well-aerated. Visualized brain parenchyma bilateral optic globes and the orbits are unremarkable. No abnormal neck mass or lymphadenopathy seen. THORAX: There is solitary metabolic activity seen in the right lower lower lobe superior segment mass, which now measures 3.3 x 3.0 cm and SUV of 17. On previous PET study, SUV was 10.6 and measured 2.2 x 1.9 cm. A second additional lesion in the right lower lobe medially appears more cavitary on PET study and measures 2.9 x 2.9 cm on slice 143/2. It has an SUV of 4.3. On previous PET study SUV max was 3.8 and measured 1.6 x 0.9 cm. Also visualized, is a calcified left lower lobe nodule not metabolically active measuring 9 mm on axial slice 148/2. On previous PET study, it measured [address], there is mild right apical pleural thickening and or scarring. There are calcified pleural plaques in right upper lobe and right lower lobe. ABDOMEN AND PELVIS: There is normal physiological metabolic activity seen in the kidneys, ureter and bladder. There is mild metabolic activity seen in the sigmoid colon where there is diffuse sigmoid diverticulosis and mild mural thickening with SUV of 8.08. No additional areas of abnormal activity seen. Visualized liver, spleen, pancreas and bilateral adrenal glands are unremarkable. No radiopaque gallstones or radiopaque renal calculi seen. The abdominal aorta is normal caliber. There is moderate stool seen throughout the colon without any significant distention. The abdominal wall appears unremarkable. MSK: No abnormal metabolic activity seen. Mild degenerative disc changes are seen in upper lumbar spine. No lytic or sclerotic process seen. PET/PET CT fusion skull to thigh IMPRESSION: Abnormal metabolic activity in the largest nodule right lower lobe abutting the posterior pleura. The mass is almost same size, may be slightly larger 1 cm. Metabolic activity has increased suggesting of increased angiogenesis. Second lesion in the right lower lobe posterior medial segment appears cavitary on PET. It has increased in size and increase in metabolic activity slightly. Third lesion calcified left lower lobe no change. Suspect mild early sigmoid diverticulitis. Correlate with clinical exam
== END 2022-04-29 12:48 | disposition home or self-care (01) ==
LOC: HO.PET 12:47
PROVIDERS: Visit Provider Internal Medicine Pulmonary Disease
DX: Z13.89 Encounter for screening for other disorder (principal)

== ENCOUNTER → 2022-05-01 08:09 | Outpatient (BNVA) | payer MEDICARE, MEDICAID, SELFPAY | PROVIDERS: PCP Nurse Practitioner Family; Visit Provider Nurse Practitioner | DX: C34.90 Malignant neoplasm of unspecified part of unspecified bronchus or lung (principal); R94.8 Abnormal results of function studies of other organs and systems; J96.10 Chronic respiratory failure, unspecified whether with hypoxia or hypercapnia; J44.9 Chronic obstructive pulmonary disease, unspecified; Z12.11 Encounter for screening for malignant neoplasm of colon | CPT/HCPCS: 99202; 99212 ==

== ENCOUNTER 2022-05-19 11:04 | Day surgery (SDC) | payer MEDICARE, MEDICAID, SELFPAY ==
[2022-05-19 13:18] VITALS: BP 129/63; PULSE 84; RESP 28; TEMP 36.1; O2SAT 96; BMI 18.6
[2022-05-19] MEDS: Albuterol Sulfate (0.083%) 2.5 MG/3 ML VIAL.NEB INHALE (13:19)
[2022-05-19 13:22] VITALS: PULSE 80; RESP 19; O2SAT 100
--- NOTE | 2022-05-19 13:25 | PC.NURSE ---
pt becomes sob with minimal ambulation with wheezing receive resp tx pt sts feeling better no sob scattered wheezes with no sob
[2022-05-19 13:33] LABS: Glucose, Whole Blood 81 mg/dL (60-115)
--- NOTE | 2022-05-19 13:46 | PC.NURSE ---
attempt to right hand for IV insertion by author. bruise noted to top of hand approx. size half dollar. pressure dressing applied. iv insertion completed by author with second attempt
--- NOTE | 2022-05-19 13:48 | MHC.SHP ---
Pre-Procedural Eval Section A Date of Service: 05/19/22 The patient is an INPATIENT: No Changes since office visit: Yes Patient answered all questions; No Cold of Flu in the past 2 weeks, No New Medical Problems and No Changes in Medication The History & Physical has been completed within 30 days and I have reviewed it.: Yes Section B Chief Complaint: screening Allergies: Allergies Allergy/AdvReac Type Severity Reaction Status Date / Time shellfish derived Allergy Severe ANAPHYLAXIS Verified 05/05/22 13:40 [SHELLFISH DERIVED] pollen extracts [POLLEN] Allergy Intermediate RUNNING Verified 05/05/22 13:40 NOSE, WATERY EYES, SNEEZING varenicline [VARENICLINE] AdvReac Unknown PALPITATION Verified 05/05/22 13:40 S Plan Diagnosis/Plan: Change (proceed with colonoscopy) I have reviewed the history and physical and performed a pertinent physical examination on my patient. No changes have occurred unless specified.
--- NOTE | 2022-05-19 13:49 | P.OP_ITS ---
Operative Note Operative Note Date of Service: 05/19/22 Narrative: Pre-op diagnosis: Colon cancer screening, abnormal PET scan of the sigmoid colon Post-op diagnosis:?other (Colon polyps, diverticulosis, hemorrhoids) Procedure: COLONOSCOPY TILL CECUM WITH BIOPSIES AND SNARE POLYPECTOMY Consent: Indications for the procedure and potential complications of bleeding, perforation, reaction to medications and missed diagnosis were discussed with the patient and informed consent was obtained. Instrument: Olympus PCF H 190 L variable stiffness pediatric colonoscope Monitoring: Vital signs and clinical assessment, intermittent blood pressure monitoring, continuous EKG monitoring, Pulse oximetry and Carbon Dioxide monitoring were done throughout the procedure. Colon withdrawl time was 25 minutes. Procedure: The patient was placed in the left lateral decubitis position and pre-procedure medications were administered. After a digital rectal examination of the ano-rectum, the video colonoscope was inserted into the rectum and advanced through the colon to the cecum. The colonoscope was slowly withdrawn in a retrograde panoramic fashion and the colon mucosa was carefully examined including a retroflexed view of the rectum. Findings and interventions are described below. Procedure Difficulty: Narrowing and tortuousity of sigmoid colon from 15 to 20 cms which was navigated with some difficulty Findings: Terminal Ileum: Not evaluated Cecum:? Normal Ascending Colon:? Two 4-6 mm sessile polyps removed with a cold bx. A 10-12mm sessile polyp removed with a cold snare. Scattered moderate diverticulosis throughout the colon Transverse Colon:? Scattered moderate diverticulosis throughout the colon Descending Colon:? Scattered moderate diverticulosis throughout the colon Sigmoid Colon:? A 12 - 15 mm sessile polyp removed with a hot snare. Severe diverticulosis with edematous folds and luminal narrowing from 15-20 cm - random biopsies were obtained. Rectum:? Normal Ano-rectum:? Small internal hemorrhoids on antegrade exam. Colon preparation:? Good after copious irrigation and fair in the right colon, hepatic and splenic flexures. Impression and Post Procedure Diagnosis: Colonoscopy Findings: Four small to medium sized polyps removed Severe diverticulosis with edematous folds and luminal narrowing from 15-20 cm (likely corresponding to abnormal area on PET scan)- random biopsies were obtained. Moderate to severe diverticulosis seen in the entire colon Small hemorrhoids on antegrade exam. Plan: Await pathology results Patient has an appointment on 06/30/22 in the GI Clinic with? Christina Starks, MOHS SURGEON/GENERAL DERMATOLOGIST. Repeat Colonoscopy interval based on path results - in 3 years if polyps are adenomatous and due to fair prep. Above findings were reviewed with the patient and colon polyps and diverticulosis handouts were given in the discharge area Surgeon: Dionicio Kulkarni MD Anesthesia:?MAC (Dr Cisse) Was an Adult Protective Caseworker used for this Procedure?:?Yes Adult Protective Caseworker:?Dee Samuel Estimated blood loss (mL):?0 Pathology:?other (A.? Ascending colon polyps x 3, B.? sigmoid colon polyp, C.? Sigmoid) Condition:?stable Disposition:?PACU
--- NOTE | 2022-05-19 14:23 | P.CONAN_ITS ---
[facility] Active Problems Active Problems: All Active Problems (Updated 05/03/22 @ 16:31 by Amaury Moran MD) Abnormal PET scan of colon (Acute) Degenerative joint disease of cervical and lumbar spine (Acute) Post herpetic neuralgia (Acute) High cholesterol (Acute) Hypothyroidism (Acute) Diabetes (Acute) Lung cancer (Acute ~2021) Pulmonary nodules (Acute) Chronic respiratory failure (Acute) COPD (chronic obstructive pulmonary disease) (Acute) COVID-19 (Acute) Bronchitis (Acute) Tobacco dependence (Acute) Nephrolithiasis (Acute) Hydronephrosis (Acute) Right ureteral stone (Acute) Diverticulitis (Acute) Past Medical History Medical History Abnormal PET scan of colon Asthma GERD (gastroesophageal reflux disease) Hypertension Osteoarthritis Osteoporosis Oxygen dependent Sepsis Ureteral calculi Family History Family History Father Throat cancer Brother Lung cancer Other Hypertension Family history of problems with anesthesia: No Surgical History Surgical History History of appendectomy History of cataract surgery (~2011) History of lithotripsy (~2008) History of lung biopsy (~2021) History of Problems with Anesthesia: No Social History Social History (Updated 05/05/22 @ 13:40 by Xuan Norris CMA) Household Members: Spouse Housing: Apartment Are you a primary acute care physician to a significant other at home: No Do you presently have visiting nurse or other home services: No Alcohol intake: never Patient Tobacco Use Status: Current everyday Tobacco user Tobacco use type: Cigarette Cigarette Packs Per Day: 0.5 Years Smoked: 50 e-Cigarette/Vaping Use: Currently Using Second Hand Smoke Exposure: No Are you DNR?: No Advance Directives: No Advance Directives Information Provided: Yes Advance Directives Date on File: 12/18/20 service: No Current occupational status: unemployed and retired Meds Allergies Allergy/AdvReac Type Severity Reaction Status Date / Time shellfish derived Allergy Severe ANAPHYLAXIS Verified 05/05/22 13:40 [SHELLFISH DERIVED] pollen extracts [POLLEN] Allergy Intermediate RUNNING Verified 05/05/22 13:40 NOSE, WATERY EYES, SNEEZING varenicline [VARENICLINE] AdvReac Unknown PALPITATION Verified 05/05/22 13:40 S Home Medications Medication Instructions Recorded Confirmed Last Taken Type metformin 500 mg tablet 500 mg PO DAILY 09/28/20 05/05/22 11/15/21 History levothyroxine 112 mcg tablet 112 mcg PO DAILY@0600 12/01/20 05/05/22 11/15/21 History omeprazole 20 mg capsule,delayed 20 mg PO DAILY 12/01/20 05/05/22 11/15/21 History release ipratropium 0.5 mg-albuterol 3 mg 1 vial inhalation QID PRN asthma 08/06/21 05/05/22 10/21/21 History (2.5 mg base)/3 mL nebulization soln fluticasone fur. 200 mcg-umeclid 1 puff inhalation DAILY 10/21/21 05/05/22 10/21/21 History 62.5 mcg-vilant 25 mcg inhalat.powder (Trelegy Ellipta) mirtazapine 7.5 mg tablet 7.5 mg PO BEDTIME 11/16/21 05/05/22 11/15/21 History roflumilast 500 mcg tablet 500 mcg PO DAILY 11/16/21 05/05/22 11/15/21 History (Apolinariresp) duloxetine 30 mg capsule,delayed 1 cap PO DAILY PRN pain 01/29/22 05/05/22 Unknown History release nabumetone 500 mg tablet 1 tab PO BID PRN knee pain 01/29/22 05/05/22 Unknown History betamethasone valerate 0.1 % 0.1 appl topical DAILY 02/04/22 05/05/22 Unknown History topical ointment multivitamin with folic acid 400 1 tab PO DAILY 04/20/22 05/05/22 Unknown History mcg tablet (Daily-Leslie (with folic acid)) prednisone 10 mg tablet 1.5 tab PO DAILY 04/20/22 05/05/22 Unknown History topiramate 100 mg tablet 100 mg PO DAILY 04/20/22 05/05/22 Unknown History albuterol sulfate 2 mg/5 mL oral 2 mg PO TID 05/01/22 05/05/22 05/19/22 History syrup testosterone cypionate 200 mg/mL 200 mg IM Q2W 05/01/22 05/05/22 Unknown History intramuscular oil Exam Exam Date and Time: May 19, 2022 1423 Height,Weight and Vital Signs: Height 5 ft 5 in Weight 50.802 kg Last Vital Signs Temp 97 F 05/19/22 13:18 Pulse 80 05/19/22 13:22 Resp 19 05/19/22 13:22 BP 129/63 05/19/22 13:18 Pulse Ox 96 05/19/22 13:18 O2 Del Method 05/19/22 13:18 Pertinent Lab Results Pertinent Lab Results: Laboratory Tests 05/19/22 13:26 POC Glucose 81 Airway Mallampati Class: II TM Dist: >3cm Neck ROM: Full Denture: Upper and Lower Heart: rrr Lungs: wheezes Assessment and Plan Final Anesthetic Review Family History of Problems with Anesthesia: No History of Problems with Anesthesia: No NPO: Yes ASA Class: IV Final Preanesthetic Review: No Changes in Pt Med Stat, Meds/Allgs Chart Reviewed and Consent Obtained/Reviewed Procedure Risk: Low Anesthetic Plan Anesthetic Plan: MAC: Disposition: Standard PACU
[2022-05-19 15:23] VITALS: BP 127/60; PULSE 86; RESP 16; TEMP 37.1; O2SAT 97
[2022-05-19 15:38] VITALS: BP 125/69; PULSE 85; RESP 16; O2SAT 97
[2022-05-19 15:53] VITALS: BP 131/64; PULSE 86; RESP 16; TEMP 36.8; O2SAT 95
== END 2022-05-19 16:05 | disposition home or self-care (01) ==
PROVIDERS: PCP Nurse Practitioner Family; Visit Provider Internal Medicine Gastroenterology
PROC: 0DJD8ZZ Inspection of Lower Intestinal Tract, Via Natural or Artificial Opening Endoscopic (ICD-10-PCS; CPT 45378; principal; 2022-05-19 14:10)
DX: Z12.11 Encounter for screening for malignant neoplasm of colon (principal); R93.3 Abnormal findings on diagnostic imaging of other parts of digestive tract; D12.3 Benign neoplasm of transverse colon; D12.5 Benign neoplasm of sigmoid colon; K57.30 Diverticulosis of large intestine without perforation or abscess without bleeding; K64.8 Other hemorrhoids; K21.9 Gastro-esophageal reflux disease without esophagitis; J44.9 Chronic obstructive pulmonary disease, unspecified; J96.10 Chronic respiratory failure, unspecified whether with hypoxia or hypercapnia; Z99.81 Dependence on supplemental oxygen; E11.9 Type 2 diabetes mellitus without complications; Z79.4 Long term (current) use of insulin; Z79.899 Other long term (current) drug therapy; F17.210 Nicotine dependence, cigarettes, uncomplicated
CPT/HCPCS: 45385; 45380; 82947; 88305

== ENCOUNTER 2022-05-28 09:46 | Observation (INO) | payer MEDICARE, MEDICAID, SELFPAY ==
[2022-05-28] VITALS (9 sets, daily range): BP systolic 104–122; BP diastolic 50–61; PULSE 65–109; RESP 2–25; TEMP 36.4–36.8; O2SAT 91–99; BMI 20.2
--- NOTE | 2022-05-28 | ECG_ITS ---
Test Reason : CHEST PAIN Blood Pressure : / mmHG Vent. Rate : 077 BPM Atrial Rate : 077 BPM P-R Int : 120 ms QRS Dur : 092 ms QT Int : 356 ms P-R-T Axes : 079 062 070 degrees QTc Int : 402 ms Normal sinus rhythm Sinus Arrhythmia Premature atrial complexes Otherwise normal ECG When compared with ECG of 28-MAY-2022 09:53, No significant changes seen Referred By: Nick Clemente Electronically Signed By:ANTONIO WILLAMS
--- NOTE | ~2022-05-28 | XR_ITS ---
EXAMINATION: XR CHEST CLINICAL INFORMATION: Dyspnea. COMPARISON: Chest radiograph dated 03/14/2022, PET CT scan dated 04/29/2022. TECHNIQUE: Frontal view of the chest was obtained. FINDINGS: Masslike opacity in the right perihilar region measuring approximately 4.5 x 3.5 cm. A calcified granuloma overlies the left lung base without significant change. Coarse calcifications in the right apex is not significantly changed. The heart and mediastinal structures are unremarkable. XR/XR chest 1V IMPRESSION: Masslike opacity in right perihilar region represents interval increase in the previous radiographic study and correlates with the more recent PET CT scan. No acute cardiopulmonary process.
--- NOTE | 2022-05-28 09:55 | ECG_ITS ---
Test Reason : sob Blood Pressure : / mmHG Vent. Rate : 104 BPM Atrial Rate : 187 BPM P-R Int : 000 ms QRS Dur : 088 ms QT Int : 328 ms P-R-T Axes : 081 065 066 degrees QTc Int : 431 ms Sinus tachycardia Premature atrial complexes Abnormal ECG When compared with ECG of 14-MAR-2022 14:51, No significant changes seen Referred By: Kajal Peralta Electronically Signed By:ANTONIO WILLAMS
[2022-05-28] MEDS: Magnesium Sulfate/H2O 2 GM/50 ML PIGGYBACK IV (09:56)
[2022-05-28] MEDS: methylPREDNISolone Sod Succ 125 MG/2 ML VIAL IVPUSH (09:56)
[2022-05-28] MEDS: Albuterol Sulfate (0.083%) 2.5 MG/3 ML VIAL.NEB 10 MG INHALE (09:56)
--- NOTE | 2022-05-28 10:09 | ED.SOB ---
HPI - SOB/Dyspnea General Chief Complaint: Dyspnea Stated Complaint: DIFF BREATHING Time Seen by Provider: 05/28/22 09:54 Source: patient and old records reviewed Mode of arrival: ambulatory Limitations: no limitations History of Present Illness MD elicited complaint: shortness of breath and cough Pertinent past history: COPD and asthma Onset (ago): day(s) (2) Context: smoke/fume exposure Timing: progressively worsening Severity: severe Exacerbating factors: exertion and coughing Relieving factors: oxygen, bronchodilators and upright position Known history of: COPD and asthma Associated symptoms: cough, wheezing and sputum production Treatment prior to arrival: bronchodilator Related Data Home Medications Medication Instructions Recorded Confirmed metformin 500 mg tablet 500 mg PO DAILY 09/28/20 05/22/22 levothyroxine 112 mcg tablet 112 mcg PO DAILY@0600 12/01/20 05/22/22 omeprazole 20 mg capsule,delayed 20 mg PO DAILY 12/01/20 05/22/22 release ipratropium 0.5 mg-albuterol 3 mg 1 vial inhalation QID PRN asthma 08/06/21 05/22/22 (2.5 mg base)/3 mL nebulization soln fluticasone fur. 200 mcg-umeclid 1 puff inhalation DAILY 10/21/21 05/22/22 62.5 mcg-vilant 25 mcg inhalat.powder (Trelegy Ellipta) mirtazapine 7.5 mg tablet 7.5 mg PO BEDTIME 11/16/21 05/22/22 roflumilast 500 mcg tablet 500 mcg PO DAILY 11/16/21 05/22/22 (Daliresp) duloxetine 30 mg capsule,delayed 1 cap PO DAILY PRN pain 01/29/22 05/22/22 release nabumetone 500 mg tablet 1 tab PO BID PRN knee pain 01/29/22 05/22/22 betamethasone valerate 0.1 % 0.1 appl topical DAILY 02/04/22 05/22/22 topical ointment multivitamin with folic acid 400 1 tab PO DAILY 04/20/22 05/22/22 mcg tablet (Daily-Leslie (with folic acid)) prednisone 10 mg tablet 1.5 tab PO DAILY 04/20/22 05/22/22 topiramate 100 mg tablet 100 mg PO DAILY 04/20/22 05/22/22 albuterol sulfate 2 mg/5 mL oral 2 mg PO TID 05/01/22 05/22/22 syrup testosterone cypionate 200 mg/mL 200 mg IM Q2W 05/01/22 05/22/22 intramuscular oil Previous Rx's Medication Instructions Recorded benzonatate 100 mg capsule 100 mg PO TID PRN Cough #20 caps 01/31/22 pyridoxine (vitamin B6) 100 mg 100 mg PO DAILY 90 days #90 tabs 02/04/22 tablet Ventolin HFA 90 mcg/actuation 2 puff PO Q6H PRN shortness of 03/03/22 aerosol inhaler (albuterol sulfate) breath or wheezing #18 ea nicotine 21 mg/24 hr daily 1 patch transdermal Q24H #28 ea 04/10/22 transdermal patch theophylline 400 mg 400 mg PO DAILY #30 tabs 05/04/22 tablet,extended release 24 hr Allergies Allergy/AdvReac Type Severity Reaction Status Date / Time shellfish derived Allergy Severe ANAPHYLAXIS Verified 05/22/22 11:40 [SHELLFISH DERIVED] pollen extracts [POLLEN] Allergy Intermediate RUNNING Verified 05/22/22 11:40 NOSE, WATERY EYES, SNEEZING varenicline [VARENICLINE] AdvReac Unknown PALPITATION Verified 05/22/22 11:40 S Review of Systems Review of Systems: Constitutional : No Fever, No Chills ENT/Mouth : No sore throat, No Rhinorrhea, No Swallowing Difficulty Eyes: No Eye Pain, No Swelling, No Redness Cardiovascular : No Chest Pain, positive SOB, No Orthopnea, no Edema Respiratory : pos Cough, pos Sputum, No Wheezing, positive dyspnea Gastrointestinal : No Nausea, No Vomiting, No Diarrhea, No abdominal Pain, No Hematochezia, No Melena Genitourinary : No Dysuria, No Urinary Frequency, No Hematuria Musculoskeletal : No joint pain, No Myalgias Skin : No Skin Lesions, No rash Neuro : No Weakness, No Numbness, No Dizziness, No Headache Psych : No Anxiety/Panic, No Depression Heme/Lymph: No Bruising, No Lymphadenopathy Endocrine : No Polyuria, No Polydipsia All other systems reviewed and are negative [facility] Past Medical History Attestation statement: The following information was validated with the patient. Medical History Abnormal PET scan of colon Asthma GERD (gastroesophageal reflux disease) Hypertension Osteoarthritis Osteoporosis Oxygen dependent Sepsis Ureteral calculi Surgical History History of appendectomy History of cataract surgery (~2011) History of lithotripsy (~2008) History of lung biopsy (~2021) Family History Family History Father Throat cancer Brother Lung cancer Other Hypertension Social History Social History Household Members: Spouse Housing: Apartment Are you a primary childcare administrator to a significant other at home: No Do you presently have visiting nurse or other home services: No Alcohol intake: never Patient Tobacco Use Status: Current everyday Tobacco user Tobacco use type: Cigarette Cigarette Packs Per Day: 0.5 Years Smoked: 50 e-Cigarette/Vaping Use: Currently Using Second Hand Smoke Exposure: No Advance Directives: No Advance Directives Information Provided: Yes Advance Directives Date on File: 12/18/20 service: No Current occupational status: unemployed and retired Physical Exam Vital Signs: Vital Signs: Last Vital Signs Pulse 76 05/28/22 12:25 Resp 19 05/28/22 12:25 BP 122/54 L 05/28/22 12:25 Pulse Ox 94 05/28/22 12:25 O2 Del Method 05/28/22 09:57 BMI result Body Mass Index 20.2 Appearance: Alert. Oriented X3. Moderate acute distress - tripoding Eyes: Pupils equal, round and reactive to light. ENT: Pharynx normal. Neck: Normal inspection. Neck supple. CVS: tachycardic heart rate and rhythm. Pulses normal. Respiratory: Moderate respiratory distress - tachypnea and retractions. Breath sounds very diminished with faint insp and exp wheezes Skin: Skin warm and dry. Normal skin color. Normal skin turgor. Extremities: No lower extremity edema. No calf ttp Neuro: Oriented X 3. No motor deficit. No sensory deficit. Course Course Course Narrative: will repeat neb treatment and reassess 5mg ordered still tight and wheezing will admit for further workup 90% on RA MDM - SOB/Dyspnea MDM Narrative Medical decision making narrative: 76 yo male with hx of COPD/asthma persistent smoker, HLD, DM, hypothyroidism, here with c/o 2 days of cough, wheezing no response to home medications presents with resp distress and tripoding - at this time hour long neb 10mg, IV steroids, IV magnesium, labs, cultures, CXR - IV ceftriaxone given sputum production for COPD. Dispo per results and clinical improvement. Lab Data Result diagrams: 05/28/22 10:17 05/28/22 10:17 Labs: Lab Results 05/28/22 05/28/22 05/28/22 Range/Units 10:17 10:17 10:17 WBC 7.7 (4.8-10.8) X10*3/uL RBC 4.33 L (4.60-5.80) X10*6/uL Hgb 10.6 L (14.0-18.0) g/dl Hct 35.0 L (42.0-52.0) % MCV 80.8 (80.0-98.0) fL MCH 24.5 L (27.0-33.0) pg MCHC 30.3 L (31.0-36.0) g/dl RDW 16.8 H (11.0-16.0) % Plt Count 376 (160-400) X10*3/uL MPV 9.4 (9.4-12.4) fL Immature Gran % (Auto) 0.4 (0.0-0.4) % Neut % (Auto) 64.5 (45-73) % Lymph % (Auto) 21.0 (20-40) % [place] % (Auto) 7.0 (2-11) % Eos % (Auto) 6.6 H (0-4) % Baso % (Auto) 0.5 (0-2) % Lymph # (Auto) 1.6 (1.2-4.9) X10*3/uL [place] # (Auto) 0.5 (0.1-1.2) X10*3/uL Eos # (Auto) 0.5 H (0.0-0.4) X10*3/uL Baso # (Auto) 0.0 (0.0-0.2) X10*3/uL Abs Immat Gran (auto) 0.03 (0.00-0.03) X10*3/uL Absolute Neuts (auto) 5.0 (2.0-8.3) x10*3/uL Absolute Nucleated RBC 0.000 (0.0-0.012) X10*3/uL Nucleated RBC % (auto) 0.0 (0.0-0.2) /100WBC VBG pH (7.32-7.43) VBG pCO2 mmHg VBG pO2 mmHg VBG HCO3 (22-26) mmol/L VBG O2 Saturation % VBG Base Excess mmol/L Sodium 136 (135-145) mmol/L Potassium 3.6 (3.3-5.1) mmol/L Chloride 100 (96-108) mmol/L Carbon Dioxide 29 (22-29) mmol/L Anion Gap 11 L (12-20) BUN 8 L (9-16) mg/dL Creatinine 0.88 (0.5-1.4) mg/dL Estim Creat Clear Calc 57.5 Estimated GFR > 60 Random Glucose 196 H D (60-115) mg/dL Lactic Acid (0.5-2.0) mmol/L Calcium 8.9 (8.4-10.2) mg/dL Magnesium 3.4 H (1.6-2.6) mg/dL Total Bilirubin 0.6 (0.0-1.0) mg/dL Direct Bilirubin 0.2 (0.0-0.5) mg/dL AST 12 (5-37) U/L ALT 9 (0-40) U/L Alkaline Phosphatase 109 (39-117) U/L Troponin I High Sens < 3.5 (<3.5-35.0) ng/L Total Protein 6.4 L (6.5-8.0) g/dL Albumin 3.8 (3.5-5.0) g/dL COVID-19 (ELIO) (Negative) COVID-19 Clin Com 05/28/22 05/28/22 05/28/22 Range/Units 10:18 10:18 10:38 WBC (4.8-10.8) X10*3/uL RBC (4.60-5.80) X10*6/uL Hgb (14.0-18.0) g/dl Hct (42.0-52.0) % MCV (80.0-98.0) fL MCH (27.0-33.0) pg MCHC (31.0-36.0) g/dl RDW (11.0-16.0) % Plt Count (160-400) X10*3/uL MPV (9.4-12.4) fL Immature Gran % (Auto) (0.0-0.4) % Neut % (Auto) (45-73) % Lymph % (Auto) (20-40) % [place] % (Auto) (2-11) % Eos % (Auto) (0-4) % Baso % (Auto) (0-2) % Lymph # (Auto) (1.2-4.9) X10*3/uL [place] # (Auto) (0.1-1.2) X10*3/uL Eos # (Auto) (0.0-0.4) X10*3/uL Baso # (Auto) (0.0-0.2) X10*3/uL Abs Immat Gran (auto) (0.00-0.03) X10*3/uL Absolute Neuts (auto) (2.0-8.3) x10*3/uL Absolute Nucleated RBC (0.0-0.012) X10*3/uL Nucleated RBC % (auto) (0.0-0.2) /100WBC VBG pH 7.42 (7.32-7.43) VBG pCO2 45 mmHg VBG pO2 68 mmHg VBG HCO3 29 H (22-26) mmol/L VBG O2 Saturation 93.0 % VBG Base Excess 4.9 mmol/L Sodium (135-145) mmol/L Potassium (3.3-5.1) mmol/L Chloride (96-108) mmol/L Carbon Dioxide (22-29) mmol/L Anion Gap (12-20) BUN (9-16) mg/dL Creatinine (0.5-1.4) mg/dL Estim Creat Clear Calc Estimated GFR Random Glucose (60-115) mg/dL Lactic Acid 1.6 (0.5-2.0) mmol/L Calcium (8.4-10.2) mg/dL Magnesium (1.6-2.6) mg/dL Total Bilirubin (0.0-1.0) mg/dL Direct Bilirubin (0.0-0.5) mg/dL AST (5-37) U/L ALT (0-40) U/L Alkaline Phosphatase (39-117) U/L Troponin I High Sens (<3.5-35.0) ng/L Total Protein (6.5-8.0) g/dL Albumin (3.5-5.0) g/dL COVID-19 (ELIO) Negative (Negative) COVID-19 Clin Com See Note ECG Data Attestation: I personally reviewed and interpreted this ECG as follows: ECG interpretation date: 05/28/22 ECG interpretation time: 10:12 Interpretation: Rate: 104 Rhythm: sinus tachycardia with PACs [place]: normal Normal P waves. Normal JOHAN. Normal QRS complex. ST T wave : normal no MARIA DEL ROSARIO qTC: normal prior studies: no acute ischemia The study has been interpreted contemporaneously by me. . Critical Care Time Critical Care Time Critical Care Time: Yes Total Critical Care Time: 45 Attestation: repeat nebs, hour long medications I attest to this time spent taking care of the patient Discharge Plan Discharge Clinical Impression: Acute exacerbation of chronic obstructive pulmonary disease Patient Disposition: Admitted As Inpatient Prescriptions: No Action albuterol sulfate [Ventolin HFA] 90 mcg/actuation HFA aerosol inhaler 2 puff PO Q6H PRN (Reason: shortness of breath or wheezing) Qty: 18 3RF theophylline 400 mg tablet extended release 24 hr 400 mg PO DAILY Qty: 30 6RF metformin 500 mg tablet 500 mg PO DAILY levothyroxine 112 mcg tablet 112 mcg PO DAILY@0600 omeprazole 20 mg capsule,delayed release(DR/EC) 20 mg PO DAILY ipratropium-albuterol 0.5 mg-3 mg(2.5 mg base)/3 mL solution for nebulization 1 vial inhalation QID PRN (Reason: asthma) mirtazapine 7.5 mg Tablet 7.5 mg PO BEDTIME Daliresp 500 mcg Tablet 500 mcg PO DAILY Trelegy Ellipta 200-62.5-25 mcg blister with device 1 puff inhalation DAILY nabumetone 500 mg tablet 1 tab PO BID PRN (Reason: knee pain) duloxetine 30 mg capsule,delayed release(DR/EC) 1 cap PO DAILY PRN (Reason: pain) benzonatate 100 mg Capsule 100 mg PO TID PRN (Reason: Cough) Qty: 20 0RF prednisone 10 mg tablet 1.5 tab PO DAILY topiramate 100 mg Tablet 100 mg PO DAILY multivitamin with folic acid [Daily-Leslie (with folic acid)] 400 mcg tablet 1 tab PO DAILY betamethasone valerate 0.1 % ointment 0.1 appl topical DAILY pyridoxine (vitamin B6) 100 mg tablet 100 mg PO DAILY 90 Days Qty: 90 1RF albuterol sulfate 2 mg/5 mL syrup 2 mg PO TID testosterone cypionate 200 mg/mL oil 200 mg IM Q2W nicotine 21 mg/24 hr patch 24 hour 1 patch transdermal Q24H Qty: 28 0RF
[2022-05-28 10:27] LABS: MANUAL DIFF FLAG NO
[2022-05-28 10:29] LABS: Basophils Percent Auto 0.5 % (0-2); Eosinophils Absolute Auto 0.5 X10*3/uL (0.0-0.4); Eosinophils Percent Auto 6.6 % (0-4); Hemoglobin 10.6 g/dl (14.0-18.0); Imm Gran Abs Auto 0.03 X10*3/uL (0.00-0.03); Imm Gran Pct Auto 0.4 % (0.0-0.4); Lymphocytes Absolute Auto 1.6 X10*3/uL (1.2-4.9); Mean Corpuscular HGB Conc 30.3 g/dl (31.0-36.0); Mean Corpuscular Hemoglobin 24.5 pg (27.0-33.0); Mean Corpuscular Volume 80.8 fL (80.0-98.0); Mean Platelet Volume 9.4 fL (9.4-12.4); Monocytes Absolute Auto 0.5 X10*3/uL (0.1-1.2); Neutrophils Percent Auto 64.5 % (45-73); Platelet Count 376 X10*3/uL (160-400); Red Blood Count 4.33 X10*6/uL (4.60-5.80); Red Cell Distribution Width 16.8 % (11.0-16.0); White Blood Count 7.7 X10*3/uL (4.8-10.8)
[2022-05-28] MEDS: cefTRIAXone sodium 1 GM in 0.9 % Sodium Chloride 50 ML IV (10:41)
[2022-05-28 10:43] LABS: Lactic Acid 1.6 mmol/L (0.5-2.0)
[2022-05-28 10:49] LABS: Alanine Aminotransferase 9 U/L (0-40); Albumin Level 3.8 g/dL (3.5-5.0); Alkaline Phosphatase 109 U/L (39-117); Anion Gap 11 (12-20); Aspartate Amino Transferase 12 U/L (5-37); Bilirubin Direct 0.2 mg/dL (0.0-0.5); Bilirubin Total 0.6 mg/dL (0.0-1.0); Blood Urea Nitrogen 8 mg/dL (9-16); Calcium 8.9 mg/dL (8.4-10.2); Carbon Dioxide 29 mmol/L (22-29); Chloride 100 mmol/L (96-108); Creatinine Clr Calc Pharmacy 57.5; Estimated Glomerular Filt Rate > 60; Glucose Random 196 mg/dL (60-115); Magnesium 3.4 mg/dL (1.6-2.6); Potassium 3.6 mmol/L (3.3-5.1); Sodium 136 mmol/L (135-145); Total Protein 6.4 g/dL (6.5-8.0)
[2022-05-28 10:56] LABS: Troponin-I High Sensitivity < 3.5 ng/L (<3.5-35.0)
[2022-05-28 11:01] LABS: VBG Base Excess 4.9 mmol/L; VBG HCO3 29 mmol/L (22-26); VBG pCO2 45 mmHg; VBG pH 7.42 (7.32-7.43); VBG pO2 68 mmHg
[2022-05-28 11:02] LABS: COVID-19 Test Negative (Negative)
[2022-05-28 11:05] LABS: Venous Blood Gas Refer to POC result
[2022-05-28] MEDS: Potassium Chloride ER 20 MEQ TAB.ER.PRT PO (11:41)
[2022-05-28] MEDS: Albuterol Sulfate (0.083%) 2.5 MG/3 ML VIAL.NEB 5 MG INHALE (11:57)
[2022-05-28] MEDS: Azithromycin 500 MG in 0.9 % Sodium Chloride 250 ML 125 MG IV (13:59)
--- NOTE | 2022-05-28 14:49 | PHA.MEDREC ---
Pharmacy Consult ? Medication Reconciliation Pharmacy has completed the medication reconciliation. Spoke to pt with Dian from language interpreter services, pt could not name medications on his own but went through claim history with him and he knew what he was and wasn't taking.
--- NOTE | 2022-05-28 15:17 | P.HPHOSP_ITS ---
History of Present Illness Date of Service: 05/28/22 Chief Complaint: Difficulty breathing a 76 years old male with PMH of COPD, diabetes, lung cancer, hypothyroidism among others who presents to the hospital complaining of difficulty breathing and wheezing for the last 2 days. The patient reports that 2 days ago he started to feel more shortness of breath associated with cough, dyspnea on exertion and significant wheezes at the not resolved with using home nebulizer. He felt very short of breath moving short distances but denies any chest pain, palpitation, nausea, vomiting, change in bowel habit or urinary symptoms. He reports dry cough. In the emergency he received treatment with no significant improvement as he continued to have dyspnea and shortness of breath. Admitted for further evaluation and treatment. Review of Systems Review of Systems: No fever, chills But reports generalized weakness No chest pain, palpitation having dyspnea on exertion associated with coughing No abdominal pain, nausea or vomiting No urinary symptoms No any rash or wounds PMFSH Medical History Abnormal PET scan of colon Asthma Chronic respiratory failure COPD (chronic obstructive pulmonary disease) Diabetes GERD (gastroesophageal reflux disease) Hypertension Hypothyroidism Osteoarthritis Osteoporosis Oxygen dependent Sepsis Tobacco dependence Ureteral calculi Family History Father Throat cancer Brother Lung cancer Other Hypertension Surgical History History of appendectomy History of cataract surgery (~2011) History of lithotripsy (~2008) History of lung biopsy (~2021) Social History Household Members: Spouse Housing: Apartment Are you a primary veterinarian laboratory animal care to a significant other at home: No Do you presently have visiting nurse or other home services: No Alcohol intake: never Patient Tobacco Use Status: Current everyday Tobacco user Tobacco use type: Cigarette Cigarette Packs Per Day: 0.5 Years Smoked: 50 e-Cigarette/Vaping Use: Currently Using Second Hand Smoke Exposure: No Advance Directives: No Advance Directives Information Provided: Yes Advance Directives Date on File: 12/18/20 service: No Current occupational status: unemployed and retired Meds Allergies Allergy/AdvReac Type Severity Reaction Status Date / Time shellfish derived Allergy Severe ANAPHYLAXIS Verified 05/22/22 11:40 [SHELLFISH DERIVED] pollen extracts [POLLEN] Allergy Intermediate RUNNING Verified 05/22/22 11:40 NOSE, WATERY EYES, SNEEZING varenicline [VARENICLINE] AdvReac Unknown PALPITATION Verified 05/22/22 11:40 S Active Medications: Current Medications Acetaminophen (Acetaminophen 325 Mg Tablet) 650 mg PO Q6H PRN PRN Reason: Pain, Mild (Pain Scale 1-3) Albuterol Sulfate (Albuterol Sulfate (0.083%) 2.5 Mg/3 Ml Vial.Neb) 2.5 mg INHALE Q4H PRN PRN Reason: Shortness of Breath/Wheezing Albuterol/Ipratropium (Albuterol/Iprat 2.5/0.5mg 3 Ml Ampul.Neb) ml INHALE RQ4H WHILE AWAKE [facility] Azithromycin (Azithromycin 500 Mg Tablet) 500 mg PO Q24H [facility] Duloxetine HCl (Duloxetine Hcl 30 Mg Capsule.) 30 mg PO DAILY [facility] Enoxaparin Sodium (Enoxaparin Sodium 40 Mg/0.4 Ml Syringe) 40 mg SUBCUT Q24H [facility] Insulin Human Lispro (Insulin Lispro 100 Unit/Ml 3 Ml Vial) 0 unit SUBCUT QIDACHS [facility]; Protocol Levothyroxine Sodium (Levothyroxine Sodium 112 Mcg Tablet) 112 mcg PO DAILY@0600 [facility] Methylprednisolone Sodium Succinate (Methylprednisolone Sod Succ 40 Mg/Ml Vial) 40 mg IVPUSH Q12H [facility] Mirtazapine (Mirtazapine 7.5 Mg Tablet) 7.5 mg PO BEDTIME [facility] Montelukast Sodium (Montelukast Sodium 10 Mg Tablet) 10 mg PO BEDTIME [facility] Multivitamins/Vitamin C (Multivitamin Tablet) 1 tab PO DAILY [facility] Omeprazole (Omeprazole 20 Mg Capsule.) 20 mg PO DAILY@0630 [facility] Ondansetron HCl (Ondansetron Hcl 4 Mg/2 Ml Vial) 4 mg IVPUSH Q8H PRN PRN Reason: Nausea and Vomiting Pharmacy Consult (Consult Rx Perform Med Rec) 1 each MISCELLANE ONCE PRN PRN Reason: Consult order Sodium Chloride (0.9 % Sodium Chloride Flush 3 Ml Syringe) 3 ml IVFLUSH QSHIFT [facility] Theophylline (Theophylline Anhydrous Er 400 Mg Tab.Er.24h) 400 mg PO DAILY [facility] Home Medications Medication Instructions Recorded Confirmed Last Taken Type metformin 500 mg tablet 500 mg PO DAILY 09/28/20 05/28/22 05/27/22 History levothyroxine 112 mcg tablet 112 mcg PO DAILY@0600 12/01/20 05/28/22 05/27/22 H istory omeprazole 20 mg capsule,delayed 20 mg PO DAILY@0630 12/01/20 05/28/22 05/27/22 History release ipratropium 0.5 mg-albuterol 3 mg 1 vial inhalation QID PRN asthma 08/06/21 05/28/22 10/21/21 History (2.5 mg base)/3 mL nebulization soln mirtazapine 7.5 mg tablet 7.5 mg PO BEDTIME 11/16/21 05/28/22 05/27/22 History duloxetine 30 mg capsule,delayed 1 cap PO DAILY 01/29/22 05/28/22 05/27/22 History release nabumetone 500 mg tablet 1 tab PO BID PRN knee pain 01/29/22 05/28/22 Unknown History multivitamin with folic acid 400 1 tab PO DAILY 04/20/22 05/28/22 05/27/22 History mcg tablet (Daily-Leslie (with folic acid)) prednisone 10 mg tablet 1.5 tab PO DAILY 04/20/22 05/28/22 05/27/22 History montelukast 10 mg tablet 1 tab PO BEDTIME 05/28/22 05/28/22 05/27/22 History Physical Exam Vital Signs and Narrative: Vital Signs: Last Vital Signs Pulse 84 05/28/22 14:44 Resp 20 05/28/22 14:44 BP 108/55 L 05/28/22 14:44 Pulse Ox 99 05/28/22 14:44 O2 Del Method 05/28/22 14:44 O2 Flow Rate 2 05/28/22 14:44 BMI result Body Mass Index 20.2 Const: Other: Constitutional : Alert, oriented, not in distress Neck : Normal inspection, Supple Cardiovascular : RRR, no JVP, no lower extremity edema Respiratory : decreased bilateral air entry, no crackles, bilateral expiratory wheezes Gastrointestinal: soft, lax, Normal bowel sounds, Non tender Skin : Warm, Dry Neurological : Alert & oriented x3, No focal deficit , CN 2-12 within normal Results Labs CBC and Chem 7: 05/28/22 10:17 05/28/22 10:17 Labs: Laboratory Results - last 24 hr 05/28/22 05/28/22 05/28/22 10:17 10:17 10:17 MCV 80.8 MCH 24.5 L MCHC 30.3 L RDW 16.8 H Plt Count 376 MPV 9.4 Immature Gran % (Auto) 0.4 Neut % (Auto) 64.5 Lymph % (Auto) 21.0 [place] % (Auto) 7.0 Eos % (Auto) 6.6 H Baso % (Auto) 0.5 Lymph # (Auto) 1.6 [place] # (Auto) 0.5 Eos # (Auto) 0.5 H Baso # (Auto) 0.0 Abs Immat Gran (auto) 0.03 Absolute Neuts (auto) 5.0 Absolute Nucleated RBC 0.000 Nucleated RBC % (auto) 0.0 VBG pH VBG pCO2 VBG pO2 VBG HCO3 VBG O2 Saturation VBG Base Excess Anion Gap 11 L Estim Creat Clear Calc 57.5 Estimated GFR > 60 Random Glucose 196 H D Lactic Acid Calcium 8.9 Magnesium 3.4 H Total Bilirubin 0.6 Direct Bilirubin 0.2 AST 12 ALT 9 Alkaline Phosphatase 109 Troponin I High Sens < 3.5 Total Protein 6.4 L Albumin 3.8 COVID-19 (ELIO) COVID-19 Clin Com 05/28/22 05/28/22 05/28/22 10:18 10:18 10:38 MCV MCH MCHC RDW Plt Count MPV Immature Gran % (Auto) Neut % (Auto) Lymph % (Auto) [place] % (Auto) Eos % (Auto) Baso % (Auto) Lymph # (Auto) [place] # (Auto) Eos # (Auto) Baso # (Auto) Abs Immat Gran (auto) Absolute Neuts (auto) Absolute Nucleated RBC Nucleated RBC % (auto) VBG pH 7.42 VBG pCO2 45 VBG pO2 68 VBG HCO3 29 H VBG O2 Saturation 93.0 VBG Base Excess 4.9 Anion Gap Estim Creat Clear Calc Estimated GFR Random Glucose Lactic Acid 1.6 Calcium Magnesium Total Bilirubin Direct Bilirubin AST ALT Alkaline Phosphatase Troponin I High Sens Total Protein Albumin COVID-19 (ELIO) Negative COVID-19 Clin Com See Note Imaging Radiologist's Impressions: Impressions Chest X-Ray 05/28/22 10:33 IMPRESSION: Masslike opacity in right perihilar region represents interval increase in the previous radiographic study and correlates with the more recent PET CT scan. No acute cardiopulmonary process. Assessment and Plan (1) Acute exacerbation of chronic obstructive pulmonary disease: Status: Acute Plan a 76 years old male with PMH of COPD, diabetes, lung cancer, hypothyroidism among others who presents to the hospital complaining of difficulty breathing and wheezing for the last 2 days. acute COPD exacerbation Likely from viral illness, allergy Start duo nebs ATC and p.r.n. IV steroids q.12 Azithromycin Wean oxygen down as tolerated DM, type 2 insulin sliding scale resume metformin upon discharge diabetic diet GERD continue PPI Hypothyroidism synthroid Mood continue baseline meds Tobacco use disorder counseling done DVT PPx Lovenox Quality Stroke Does the patient have a stroke diagnosis?: No VTE Prior VTE?: No VTE Risk Level:: Medical - moderate - high VTE Device Contraindication: Treatment Not Indicated VTE Drug Contraindication: N/A - Med Ordered
[2022-05-28] MEDS: Albuterol/Iprat 2.5/0.5MG 3 ML AMPUL.NEB INHALE ×2 (15:52→19:37)
[2022-05-28] MEDS: Benzonatate 100 MG CAPSULE PO ×2 (16:15→21:11)
[2022-05-28] MEDS: Enoxaparin Sodium 40 MG/0.4 ML SYRINGE SUBCUT (16:15)
[2022-05-28] MEDS: guaiFENesin LA 600 MG TAB.ER.12H PO ×2 (16:15→21:11)
[2022-05-28 18:03] LABS: Glucose, Whole Blood 153 mg/dL (60-115)
--- NOTE | 2022-05-28 19:40 | PC.NURSE ---
Report given to Overflow
[2022-05-28 20:57] LABS: Glucose, Whole Blood 297 mg/dL (60-115)
[2022-05-28] MEDS: Montelukast Sodium 10 MG TABLET PO (21:11)
[2022-05-28] MEDS: Mirtazapine 7.5 MG TABLET PO (21:12)
[2022-05-28] MEDS: methylPREDNISolone Sod Succ 40 MG/ML VIAL IVPUSH (21:12)
[2022-05-28] MEDS: Insulin Lispro 100 UNIT/ML 3 ML VIAL SUBCUT (21:17)
[2022-05-28] MEDS: Acetaminophen 325 MG TABLET 650 MG PO (21:21)
[2022-05-29 00:27] VITALS: BP 113/51; PULSE 69; RESP 12; TEMP 36.3; O2SAT 93
--- NOTE | 2022-05-29 02:49 | PC.NURSE ---
RESTING COMF,LUNGS DIM RIGHT.SAT 93% RA.NO DISTRESS.SR ELEVATED T WAVES ON TELE.HR 60'S.
[2022-05-29 04:55] VITALS: BP 113/48; PULSE 64; RESP 17; TEMP 35.8; O2SAT 94
[2022-05-29] MEDS: Levothyroxine Sodium 112 MCG TABLET PO (05:50)
[2022-05-29] MEDS: Omeprazole 20 MG CAPSULE.DR PO (05:50)
[2022-05-29 06:23] LABS: Mean Corpuscular HGB Conc 30.3 g/dl (31.0-36.0); Mean Corpuscular Hemoglobin 24.6 pg (27.0-33.0); Mean Corpuscular Volume 81.3 fL (80.0-98.0); Platelet Count 352 X10*3/uL (160-400); Red Blood Count 4.06 X10*6/uL (4.60-5.80); Red Cell Distribution Width 16.9 % (11.0-16.0); White Blood Count 4.4 X10*3/uL (4.8-10.8)
[2022-05-29 06:44] LABS: Anion Gap 13 (12-20); Blood Urea Nitrogen 14 mg/dL (9-16); Calcium 8.9 mg/dL (8.4-10.2); Carbon Dioxide 27 mmol/L (22-29); Chloride 102 mmol/L (96-108); Creatinine Clr Calc Pharmacy 53.2; Estimated Glomerular Filt Rate > 60; Glucose Random 237 mg/dL (60-115); Sodium 137 mmol/L (135-145)
[2022-05-29 07:26] LABS: Glucose, Whole Blood 175 mg/dL (60-115)
[2022-05-29 08:32] VITALS: BP 115/53; PULSE 62; RESP 16; TEMP 36.2; O2SAT 95
[2022-05-29] MEDS: Albuterol/Iprat 2.5/0.5MG 3 ML AMPUL.NEB INHALE ×2 (08:49→11:21)
[2022-05-29 08:52] VITALS: PULSE 67; RESP 16; O2SAT 96
[2022-05-29] MEDS: DULoxetine HCl 30 MG CAPSULE.DR PO (09:47)
[2022-05-29] MEDS: Insulin Lispro 100 UNIT/ML 3 ML VIAL SUBCUT (09:47)
[2022-05-29] MEDS: Azithromycin 500 MG TABLET PO (09:47)
[2022-05-29] MEDS: guaiFENesin LA 600 MG TAB.ER.12H PO (09:47)
[2022-05-29] MEDS: Theophylline Anhydrous ER 400 MG TAB.ER.24H PO (09:47)
[2022-05-29] MEDS: Multivitamin TABLET 1 TAB PO (09:47)
[2022-05-29] MEDS: methylPREDNISolone Sod Succ 40 MG/ML VIAL IVPUSH (09:47)
[2022-05-29] MEDS: Benzonatate 100 MG CAPSULE PO (09:47)
[2022-05-29 11:22] VITALS: PULSE 65; RESP 16; O2SAT 100
[2022-05-29 11:29] LABS: Glucose, Whole Blood 68 mg/dL (60-115)
--- NOTE | 2022-05-29 12:14 | PM.DS ---
DS: Providers Provider Date of Service: 05/29/22 Date of admission: 05/28/22 15:09 Primary care physician: Unknown Physician DS: Diagnosis Discharge Diagnosis (1) Acute exacerbation of chronic obstructive pulmonary disease: Status: Acute DS: Summary Hospital Course Hospital Course: admission note HPI ?a 76 years old male with PMH of COPD, diabetes, lung cancer, hypothyroidism among others who presents to the hospital complaining of difficulty breathing and wheezing for the last 2 days.? The patient reports that 2 days ago he started to feel more shortness of breath associated with cough, dyspnea on exertion and significant wheezes at the not resolved with using home nebulizer.? He felt very short of breath moving short distances but denies any chest pain, palpitation, nausea, vomiting, change in bowel habit or urinary symptoms.? He reports dry cough. In the emergency he received treatment with no significant improvement as he continued to have dyspnea and shortness of breath.? Admitted for further evaluation and treatment. Hospital course The patient was admitted to the hospital for treatment of COPD exacerbation. Treated with IV steroids , azithromycin and bronchodilator nebulizers with good response as his breathing improved significantly on was he able to ambulate on room air with no reported dyspnea maintaining his O2 sat in 90s. Will be discharged home on azithromycin, prednisone and to continue home nebulizers. Continue prednisone as prescribed continue azithromycin for the next 3 days Use your home nebulizer for the next 5 days every 4-6 hours Time Spent with Patient Time attestation: Total time spent providing and/or coordinating discharge services: Discharge coordination time: Greater than 30 minutes Quality: Safe Use of Opioids Does Pt have an Active Cancer Diagnosis on the Problem List?: No Quality: Stroke Does the patient have a stroke diagnosis?: No Physical Exam Vital Signs: Vital Signs: Last Vital Signs Temp 97.1 F 05/29/22 08:32 Pulse 65 05/29/22 11:22 Resp 16 05/29/22 11:22 BP 115/53 L 05/29/22 08:32 Pulse Ox 95 05/29/22 08:32 O2 Del Method 05/29/22 08:32 O2 Flow Rate 2 05/28/22 15:49 BMI result Body Mass Index 20.2 Const: Other: Constitutional : Alert, oriented, not in distress Neck : Normal inspection, Supple Cardiovascular : RRR, no JVP, no lower extremity edema Respiratory : improved bilateral air entry, no crackles, mild scattered bilateral expiratory wheezes Gastrointestinal: soft, lax, Normal bowel sounds, Non tender Skin : Warm, Dry Neurological : Alert & oriented x3, No focal deficit , CN 2-12 within normal DS: Data Data Completed and Pending Completed studies during hospitalization [Text1]: Procedures Dilation of Right Ureter with Intraluminal Device, Via Natural or Artificial Opening Endoscopic (11/16/21) Extirpation of Matter from Right Ureter, Via Natural or Artificial Opening Endoscopic (11/16/21) Fluoroscopy of Right Kidney, Ureter and Bladder (11/16/21) Labs on day of discharge: Laboratory Results - last 24 hr 05/28/22 05/28/22 05/29/22 17:56 20:50 05:48 WBC 4.4 L RBC 4.06 L Hgb 10.0 L Hct 33.0 L MCV 81.3 MCH 24.6 L MCHC 30.3 L RDW 16.9 H Plt Count 352 MPV 10.0 Absolute Nucleated RBC 0.000 Nucleated RBC % (auto) 0.0 Sodium Potassium Chloride Carbon Dioxide Anion Gap BUN Creatinine Estim Creat Clear Calc Estimated GFR POC Glucose 153 H 297 H Random Glucose Calcium 05/29/22 05/29/22 05/29/22 05:48 07:22 11:19 WBC RBC Hgb Hct MCV MCH MCHC RDW Plt Count MPV Absolute Nucleated RBC Nucleated RBC % (auto) Sodium 137 Potassium 5.0 D Chloride 102 Carbon Dioxide 27 Anion Gap 13 BUN 14 D Creatinine 0.95 Estim Creat Clear Calc 53.2 Estimated GFR > 60 POC Glucose 175 H 68 Random Glucose 237 H Calcium 8.9 Discharge Plan Discharge Patient Disposition: Home, Self-Care Discharge Diagnosis: COPD exacerbation Referrals: Physician,Unknown J [Primary Care Provider] - 1 Week Discharge Medications: New prednisone 20 mg tablet 40 mg PO DAILY Qty: 8 0RF azithromycin 250 mg tablet 250 mg PO DAILY 3 Days Qty: 3 0RF Rx Instructions: start on day 2 of therapy Continued albuterol sulfate [Ventolin HFA] 90 mcg/actuation HFA aerosol inhaler 2 puff PO Q6H PRN (Reason: shortness of breath or wheezing) Qty: 18 3RF theophylline 400 mg tablet extended release 24 hr 400 mg PO DAILY Qty: 30 6RF metformin 500 mg tablet 500 mg PO DAILY levothyroxine 112 mcg tablet 112 mcg PO DAILY@0600 omeprazole 20 mg capsule,delayed release(DR/EC) 20 mg PO DAILY@0630 ipratropium-albuterol 0.5 mg-3 mg(2.5 mg base)/3 mL solution for nebulization 1 vial inhalation QID PRN (Reason: asthma) mirtazapine 7.5 mg Tablet 7.5 mg PO BEDTIME nabumetone 500 mg tablet 1 tab PO BID PRN (Reason: knee pain) duloxetine 30 mg capsule,delayed release(DR/EC) 1 cap PO DAILY prednisone 10 mg tablet 1.5 tab PO DAILY multivitamin with folic acid [Daily-Leslie (with folic acid)] 400 mcg tablet 1 tab PO DAILY montelukast 10 mg tablet 1 tab PO BEDTIME pyridoxine (vitamin B6) 100 mg tablet 100 mg PO DAILY 90 Days Qty: 90 1RF Discharge Orders: Discharge Order (Routine); Ordered 05/29/22 Ordered By: Nick Clemente Activity on Discharge: As tolerated Stand Alone Forms: Patient Portal Discharge page Care Plan Goals: Read below Health Concerns: Read below Plan of Treatment: Read below Assessment: you were admitted to the hospital for treatment of COPD exacerbation. Responded well to steroids and bronchodilator nebulizers. Continue prednisone as prescribed continue azithromycin for the next 3 days Use your home nebulizer for the next 5 days every 4-6 hours
[2022-06-02 06:33] LABS: Glucose, Whole Blood 148 mg/dL (60-115)
== END 2022-05-29 15:26 | disposition home or self-care (01) ==
LOC: HO.ED 13:13 → HO.EDOVER 15:50
PROVIDERS: Admitting Provider Student in an Organized Health Care Education/Training Program; Emergency Provider Emergency Medicine; PCP Nurse Practitioner Family; Visit Provider Student in an Organized Health Care Education/Training Program
DX: J44.1 Chronic obstructive pulmonary disease with (acute) exacerbation (principal); R06.02 Shortness of breath; E78.5 Hyperlipidemia, unspecified; E11.9 Type 2 diabetes mellitus without complications; F17.200 Nicotine dependence, unspecified, uncomplicated; Z20.822 Contact with and (suspected) exposure to COVID-19; C34.90 Malignant neoplasm of unspecified part of unspecified bronchus or lung; Z79.899 Other long term (current) drug therapy
CPT/HCPCS: 36415; 71045; 80048; 80076; 82803; 82947; 83605; 83735; 84484; 85025; 85027; 87040; 87635; 93005; 94640; 94644; 96365; 96366; 96367; 96372; 96375; 96376; 99218; 99285; J0456; J0696; J1650; J2920; J2930; J3475

== ENCOUNTER 2022-06-06 08:33 | Observation (INO) | payer MEDICARE, MEDICAID, SELFPAY ==
[2022-06-06] VITALS (9 sets, daily range): BP systolic 98–144; BP diastolic 47–82; PULSE 71–108; RESP 16–22; TEMP 36.6–36.8; O2SAT 94–99; BMI 21.9
--- NOTE | ~2022-06-06 | XR_ITS ---
EXAMINATION: XR CHEST CLINICAL INFORMATION: Dyspnea COMPARISON: 05/28/2022 TECHNIQUE: Frontal view of the chest was obtained. FINDINGS: No acute findings within the emphysematous lungs. Bronchial starkey are chronically thickened. No change in appearance of the masslike lesions of the superior segment of the right lower lobe and medial right lower lobe. An old calcified granuloma is present in the left lower lobe. Again noted are right-sided calcified pleural plaques. No pleural effusion or pneumothorax. Cardiac silhouette is normal in size. The pulmonary vascular pattern is normal. Bones but appear to be diffusely osteopenic XR/XR chest 1V IMPRESSION: * No acute cardiopulmonary abnormality compared to 05/28/2022. * Chronic emphysematous disease and chronic thickening of bronchial starkey. Correlate for history of chronic cigarette smoking. * The lesions of the superior segment of the right lower lobe and medial right lower lobe are unchanged. Please refer to the PET/CT imaging report from 04/29/2022.
--- NOTE | 2022-06-06 08:37 | PC.NURSE ---
placed on 1l o2 for comfort in waiting room. room air sat 95%
--- NOTE | 2022-06-06 08:40 | ECG_ITS ---
Test Reason : DYSPNEA Blood Pressure : / mmHG Vent. Rate : 092 BPM Atrial Rate : 092 BPM P-R Int : 116 ms QRS Dur : 084 ms QT Int : 332 ms P-R-T Axes : 074 056 064 degrees QTc Int : 410 ms Sinus rhythm with Premature atrial complexes Otherwise normal ECG When compared with ECG of 28-MAY-2022 15:47, No significant change was found Referred By: Generic ED Physician Electronically Signed By:Anoop Gentile
--- NOTE | 2022-06-06 08:56 | ED.SOB ---
HPI - SOB/Dyspnea General Chief Complaint: Dyspnea Stated Complaint: sob, bad asthma Time Seen by Provider: 06/06/22 08:43 Source: patient Limitations: no limitations History of Present Illness HPI Narrative: This is a 76 years old patient presented to the emergency department with a chief complain or shortness of breath wheezing, he has history of COPD, continue to smoke. MD elicited complaint: shortness of breath Pertinent past history: COPD Onset (ago): hour(s) Timing: constant Severity: moderate Exacerbating factors: nothing Relieving factors: nothing Known history of: COPD Related Data Home Medications Medication Instructions Recorded Confirmed metformin 500 mg tablet 500 mg PO DAILY 09/28/20 06/06/22 levothyroxine 112 mcg tablet 112 mcg PO DAILY@0600 12/01/20 06/06/22 omeprazole 20 mg capsule,delayed 20 mg PO DAILY@0630 12/01/20 06/06/22 release ipratropium 0.5 mg-albuterol 3 mg 1 vial inhalation QID PRN asthma 08/06/21 06/06/22 (2.5 mg base)/3 mL nebulization soln mirtazapine 7.5 mg tablet 7.5 mg PO BEDTIME 11/16/21 06/06/22 duloxetine 30 mg capsule,delayed 1 cap PO DAILY 01/29/22 06/06/22 release nabumetone 500 mg tablet 1 tab PO BID PRN knee pain 01/29/22 06/06/22 multivitamin with folic acid 400 1 tab PO DAILY 04/20/22 06/06/22 mcg tablet (Daily-Leslie (with folic acid)) montelukast 10 mg tablet 1 tab PO BEDTIME 05/28/22 06/06/22 prednisone 10 mg tablet mg 06/06/22 Previous Rx's Medication Instructions Recorded pyridoxine (vitamin B6) 100 mg 100 mg PO DAILY 90 days #90 tabs 02/04/22 tablet Ventolin HFA 90 mcg/actuation 2 puff PO Q6H PRN shortness of 03/03/22 aerosol inhaler (albuterol sulfate) breath or wheezing #18 ea theophylline 400 mg 400 mg PO DAILY #30 tabs 05/04/22 tablet,extended release 24 hr Allergies Allergy/AdvReac Type Severity Reaction Status Date / Time shellfish derived Allergy Severe ANAPHYLAXIS Verified 06/05/22 13:27 [SHELLFISH DERIVED] pollen extracts [POLLEN] Allergy Intermediate RUNNING Verified 06/05/22 13:27 NOSE, WATERY EYES, SNEEZING varenicline [VARENICLINE] AdvReac Unknown PALPITATION Verified 06/05/22 13:27 S Review of Systems Review of Systems: Yes all other systems are reviewed and are negative ENT: Reports system reviewed and no additional complaints, except as documented Cardiovascular: Cardiovascular: Reports no additional cardiovascular complaints Respiratory: Respiratory: Reports cough and Reports wheezing Gastrointestinal: Gastrointestinal: Reports no additional gastrointestinal complaints Musculoskeletal: Musculoskeletal: Reports no additional musculoskeletal complaints Neurologic: Reports system reviewed and no additional complaints, except as documented Endocrine: Endocrine: Reports no additional endocrine complaints Allergic/Immunologic: Allergic/Immunologic: Reports wheezing PMFSH Past Medical History Medical History Abnormal PET scan of colon Asthma Chronic respiratory failure COPD (chronic obstructive pulmonary disease) Diabetes GERD (gastroesophageal reflux disease) Hypertension Hypothyroidism Osteoarthritis Osteoporosis Oxygen dependent Sepsis Tobacco dependence Ureteral calculi Surgical History History of appendectomy History of cataract surgery (~2011) History of lithotripsy (~2008) History of lung biopsy (~2021) Family History Family History Father Throat cancer Brother Lung cancer Other Hypertension Social History Social History Household Members: Spouse Housing: Apartment Are you a primary lawn care specialist to a significant other at home: No Do you presently have visiting nurse or other home services: No Alcohol intake: never Patient Tobacco Use Status: Current everyday Tobacco user Tobacco use type: Cigarette Cigarette Packs Per Day: 0.5 Years Smoked: 50 e-Cigarette/Vaping Use: Currently Using Second Hand Smoke Exposure: No Advance Directives: Yes Advance Directives on File: Yes Advance Directives Date on File: 12/18/20 service: No Current occupational status: unemployed and retired Physical Exam Vital Signs: Vital Signs: Last Vital Signs Temp 97.9 F 06/06/22 15:45 Pulse 71 06/06/22 15:45 Resp 17 06/06/22 15:45 BP 136/82 06/06/22 15:45 Pulse Ox 98 06/06/22 15:45 O2 Del Method 06/06/22 15:45 O2 Flow Rate 1 06/06/22 14:14 BMI result Body Mass Index 21.9 Const: General: cooperative and anxious Nutritional Appearance: average body habitus HEENT: Head: Yes normal to inspection General nose exam: Normal external nose present Face and sinus: Yes normal facial exam Mouth: Normal oral and palatal mucosa present Teeth and gingiva: dentition normal Neck: Neck: Yes normal visual inspection Thyroid: Thyroid normal Chest: Chest palpation & inspection: normal inspection of the chest Resp: Auscultation: wheezes Percussion: percussion normal Cardio: Jugular venous distension: no JVD Rate: regular rate Rhythm: regular rhythm Heart sounds: S1 normal heart sound present and S2 normal heart sound present GI: Inspection: Yes normal to inspection Palpation (GI): Soft to palpation, not firm, nontender and no guarding MDM - SOB/Dyspnea Lab Data Attestation: I reviewed the patient's lab results. Result diagrams: 06/06/22 09:00 06/06/22 09:00 Labs: Lab Results 06/06/22 06/06/22 06/06/22 Range/Units 08:56 09:00 09:00 WBC 9.3 (4.8-10.8) X10*3/uL RBC 4.40 L (4.60-5.80) X10*6/uL Hgb 10.7 L (14.0-18.0) g/dl Hct 35.5 L (42.0-52.0) % MCV 80.7 (80.0-98.0) fL MCH 24.3 L (27.0-33.0) pg MCHC 30.1 L (31.0-36.0) g/dl RDW 16.2 H (11.0-16.0) % Plt Count 380 (160-400) X10*3/uL MPV 8.9 L (9.4-12.4) fL Absolute Nucleated RBC 0.000 (0.0-0.012) X10*3/uL Nucleated RBC % (auto) 0.0 (0.0-0.2) /100WBC Sodium 139 (135-145) mmol/L Potassium 4.3 (3.3-5.1) mmol/L Chloride 103 (96-108) mmol/L Carbon Dioxide 29 (22-29) mmol/L Anion Gap 11 L (12-20) BUN 9 (9-16) mg/dL Creatinine 0.87 (0.5-1.4) mg/dL Estim Creat Clear Calc 57.3 Estimated GFR > 60 Random Glucose 177 H (60-115) mg/dL Calcium 8.9 (8.4-10.2) mg/dL Total Bilirubin (0.0-1.0) mg/dL Direct Bilirubin (0.0-0.5) mg/dL AST (5-37) U/L ALT (0-40) U/L Alkaline Phosphatase (39-117) U/L Troponin I High Sens (<3.5-35.0) ng/L B-Natriuretic Peptide (<100) pg/mL Total Protein (6.5-8.0) g/dL Albumin (3.5-5.0) g/dL COVID-19 (ELIO) Negative (Negative) COVID-19 Clin Com See Note 06/06/22 06/06/22 Range/Units 09:00 09:00 WBC (4.8-10.8) X10*3/uL RBC (4.60-5.80) X10*6/uL Hgb (14.0-18.0) g/dl Hct (42.0-52.0) % MCV (80.0-98.0) fL MCH (27.0-33.0) pg MCHC (31.0-36.0) g/dl RDW (11.0-16.0) % Plt Count (160-400) X10*3/uL MPV (9.4-12.4) fL Absolute Nucleated RBC (0.0-0.012) X10*3/uL Nucleated RBC % (auto) (0.0-0.2) /100WBC Sodium (135-145) mmol/L Potassium (3.3-5.1) mmol/L Chloride (96-108) mmol/L Carbon Dioxide (22-29) mmol/L Anion Gap (12-20) BUN (9-16) mg/dL Creatinine (0.5-1.4) mg/dL Estim Creat Clear Calc Estimated GFR Random Glucose (60-115) mg/dL Calcium (8.4-10.2) mg/dL Total Bilirubin 0.4 (0.0-1.0) mg/dL Direct Bilirubin 0.2 (0.0-0.5) mg/dL AST 12 (5-37) U/L ALT 11 (0-40) U/L Alkaline Phosphatase 104 (39-117) U/L Troponin I High Sens < 3.5 (<3.5-35.0) ng/L B-Natriuretic Peptide < 10 (<100) pg/mL Total Protein 6.3 L (6.5-8.0) g/dL Albumin 3.8 (3.5-5.0) g/dL COVID-19 (ELIO) (Negative) COVID-19 Clin Com Discharge Plan Discharge Clinical Impression: Acute exacerbation of chronic obstructive pulmonary disease Patient Disposition: Admitted As Inpatient
[2022-06-06] MEDS: Albuterol Sulfate (0.083%) 2.5 MG/3 ML VIAL.NEB 7.5 MG INHALE (09:03)
[2022-06-06] MEDS: methylPREDNISolone Sod Succ 125 MG/2 ML VIAL IVPUSH (09:08)
[2022-06-06 09:11] LABS: Hematocrit 35.5 % (42.0-52.0); Hemoglobin 10.7 g/dl (14.0-18.0); Mean Corpuscular HGB Conc 30.1 g/dl (31.0-36.0); Mean Corpuscular Hemoglobin 24.3 pg (27.0-33.0); Mean Corpuscular Volume 80.7 fL (80.0-98.0); Mean Platelet Volume 8.9 fL (9.4-12.4); Platelet Count 380 X10*3/uL (160-400); Red Cell Distribution Width 16.2 % (11.0-16.0); White Blood Count 9.3 X10*3/uL (4.8-10.8)
--- NOTE | 2022-06-06 09:12 | PC.NURSE ---
Addendum entered by Sandrita Martinez LPN 06/06/22 11:31: PATIENT A/OX4 . SOB . USE OF AUXILIARY MUSCLES .. SLIGHTLY DIAPHORETIC . O2 96 ROOM AIR . PT PUT ON 3L NASAL [place]ULLA O2 . RT NOTIFIED FOR BREATHING TREATMENT . PT HAS HISTORY OF ASTHMA REPORTS USE OF BREATHING TREATMENTS AND INHALERS AT HOME WITH NO RELIEF . SPEECH BROKEN AND CHOPPY . IV PLACED AT RIGHT WRIST . RT ADMINISTER BREATHING TREATMENT ORDERED AND STEROID ADMINISTERED ORDERED BY PROVIDER. LABS AND EKG OBTAINED . PATIENT AWARE OF PLAN OF CARE . Original Note: PATIENT A/O X4 . SOB . USE OF AUXILIARY MUSCLES . LUNGS TIGHT . PT PUT ON 3L OF NASAL CANULLA O2 . RT NOTIFIED FOR BREATHING TREATMENT . PT HAS HISTORY OF ASTHMA REPORTS USE OF BREATHING TREATMENTS AND INHALER AT HOME WITH NO RELIEF . IV PLACED AT RIGHT WRIST . RT ADMINISTERED BREATHING TREATMENT ORDERED AND STEROID ADMINISTERED ORDERED BY PROVIDER. LABS AND EKG OBTAINED . PATIENT AWARE OF PLAN OF CARE .
[2022-06-06 09:21] LABS: IDNOW Serial# 16C4AD1C
[2022-06-06 09:22] LABS: COVID-19 Test Negative (Negative)
[2022-06-06 09:26] LABS: Anion Gap 11 (12-20); Blood Urea Nitrogen 9 mg/dL (9-16); Calcium 8.9 mg/dL (8.4-10.2); Carbon Dioxide 29 mmol/L (22-29); Chloride 103 mmol/L (96-108); Creatinine Clr Calc Pharmacy 57.3; Estimated Glomerular Filt Rate > 60; Glucose Random 177 mg/dL (60-115); Potassium 4.3 mmol/L (3.3-5.1); Sodium 139 mmol/L (135-145)
[2022-06-06 09:28] LABS: Alanine Aminotransferase 11 U/L (0-40); Albumin Level 3.8 g/dL (3.5-5.0); Alkaline Phosphatase 104 U/L (39-117); Aspartate Amino Transferase 12 U/L (5-37); Bilirubin Direct 0.2 mg/dL (0.0-0.5); Bilirubin Total 0.4 mg/dL (0.0-1.0); Total Protein 6.3 g/dL (6.5-8.0)
[2022-06-06 09:45] LABS: B Type Natriuretic Peptide < 10 pg/mL (<100); Troponin-I High Sensitivity < 3.5 ng/L (<3.5-35.0)
--- NOTE | 2022-06-06 10:30 | PC.NURSE ---
PATIENT POST TREATMENT LUNGS SPEAKS IN CLEAR SENTENCES AND IMPROVEMENT IN AIRWAY MOVEMENT IN LUNGS NOTED BY THIS RN . PATIENT AWARE OF PLAN OF CARE .
[2022-06-06] MEDS: Albuterol/Iprat 2.5/0.5MG 3 ML AMPUL.NEB INHALE (11:13)
--- NOTE | 2022-06-06 13:38 | P.HPHOSP_ITS ---
History of Present Illness Date of Service: 06/06/22 Attending physician on admission: Ortiz James Chief Complaint: SOB 76-year-old man presented to the ER with complaints of worsening shortness of breath over the last 2 days. He does have history of COPD and continues to smoke at least 4-5 cigarettes a day. He was recently discharged on May 29 and treated for the same. He had been given antibiotics and prednisone. He denied chest pain, nausea, vomiting, diarrhea, recent travel, sick contacts. He is known to the hospitalist service for admissions for his COPD. He is on oxygen at home. He has not been hypoxic in the ER. His labs are within acceptable limits, his COVID is negative. He was given Solu-Medrol and albuterol in the ER. He will be placed on observation for acute COPD exacerbation. Review of Systems Review of Systems: Denies any recent fever chills or decrease in appetite respiratory See HPI cardiovascular See HPI gastrointestinal denies any dysphagia abdominal pain nausea vomiting or diarrhea genitourinary denies any dysuria frequency or hematuria musculoskeletal denies any joint pain or swelling neuropsych denies any weakness or seizures all other systems reviewed are negative [facility] Medical History Abnormal PET scan of colon Asthma Chronic respiratory failure COPD (chronic obstructive pulmonary disease) Diabetes GERD (gastroesophageal reflux disease) Hypertension Hypothyroidism Osteoarthritis Osteoporosis Oxygen dependent Sepsis Tobacco dependence Ureteral calculi Family History Father Throat cancer Brother Lung cancer Other Hypertension Surgical History History of appendectomy History of cataract surgery (~2011) History of lithotripsy (~2008) History of lung biopsy (~2021) Social History Household Members: Spouse Housing: Apartment Are you a primary team primary care physician to a significant other at home: No Do you presently have visiting nurse or other home services: No Alcohol intake: never Patient Tobacco Use Status: Current everyday Tobacco user Tobacco use type: Cigarette Cigarette Packs Per Day: 0.5 Years Smoked: 50 e-Cigarette/Vaping Use: Currently Using Second Hand Smoke Exposure: No Advance Directives: Yes Advance Directives on File: Yes Advance Directives Date on File: 12/18/20 service: No Current occupational status: unemployed and retired Meds Allergies Allergy/AdvReac Type Severity Reaction Status Date / Time shellfish derived Allergy Severe ANAPHYLAXIS Verified 06/05/22 13:27 [SHELLFISH DERIVED] pollen extracts [POLLEN] Allergy Intermediate RUNNING Verified 06/05/22 13:27 NOSE, WATERY EYES, SNEEZING varenicline [VARENICLINE] AdvReac Unknown PALPITATION Verified 06/05/22 13:27 S Active Medications: Current Medications Acetaminophen (Acetaminophen 325 Mg Tablet) 650 mg PO Q6H PRN PRN Reason: Pain, Mild (Pain Scale 1-3) Albuterol Sulfate (Albuterol Sulfate (0.083%) 2.5 Mg/3 Ml Vial.Neb) 2.5 mg INHALE RQ4H WHILE AWAKE MEHDI Enoxaparin Sodium (Enoxaparin Sodium 40 Mg/0.4 Ml Syringe) 40 mg SUBCUT Q24H MEHDI Methylprednisolone Sodium Succinate (Methylprednisolone Sod Succ 40 Mg/Ml Vial) 40 mg IVPUSH Q8H MEHDI Ondansetron HCl (Ondansetron Hcl 4 Mg/2 Ml Vial) 4 mg IVPUSH Q8H PRN PRN Reason: Nausea and Vomiting Pharmacy Consult (Consult Rx Perform Med Rec) 1 each MISCELLANE ONCE PRN PRN Reason: Consult order Sodium Chloride (0.9 % Sodium Chloride Flush 3 Ml Syringe) 3 ml IVFLUSH QSHIFT [facility] Home Medications Medication Instructions Recorded Confirmed Last Taken Type metformin 500 mg tablet 500 mg PO DAILY 09/28/20 06/05/22 05/27/22 History levothyroxine 112 mcg tablet 112 mcg PO DAILY@0600 12/01/20 06/05/22 05/27/22 History omeprazole 20 mg capsule,delayed 20 mg PO DAILY@0630 12/01/20 06/05/22 05/27/22 History release ipratropium 0.5 mg-albuterol 3 mg 1 vial inhalation QID PRN asthma 08/06/21 06/05/22 10/21/21 History (2.5 mg base)/3 mL nebulization soln mirtazapine 7.5 mg tablet 7.5 mg PO BEDTIME 11/16/21 06/05/22 05/27/22 History duloxetine 30 mg capsule,delayed 1 cap PO DAILY 01/29/22 06/05/22 05/27/22 History release nabumetone 500 mg tablet 1 tab PO BID PRN knee pain 01/29/22 06/05/22 Unknown History multivitamin with folic acid 400 1 tab PO DAILY 04/20/22 06/05/22 05/27/22 History mcg tablet (Daily-Leslie (with folic acid)) montelukast 10 mg tablet 1 tab PO BEDTIME 05/28/22 06/05/22 05/27/22 History prednisone 10 mg tablet mg 06/06/22 Unknown History Physical Exam Vital Signs and Narrative: Vital Signs: Last Vital Signs Temp 97.9 F 06/06/22 10:34 Pulse 85 06/06/22 11:13 Resp 17 06/06/22 11:13 BP 116/57 L 06/06/22 10:34 Pulse Ox 95 06/06/22 10:34 O2 Del Method 06/06/22 10:34 O2 Flow Rate 1 06/06/22 10:34 BMI result Body Mass Index 21.9 Appearing in no acute distress head is normocephalic atraumatic eyes pupils are PERRLA sclera is anicteric mouth throat mucous membranes are intact and moist neck is supple no lymphadenopathy, no JVD noted lung sounds exp wheezing, rhonchi heart regular rate rhythm, clear S1, S2 positive bowel sounds, abdomen is soft, nontender neuro patient is alert x3, no focal deficits Results Labs CBC and Chem 7: 06/06/22 09:00 06/06/22 09:00 Labs: Laboratory Results - last 24 hr 06/06/22 06/06/22 06/06/22 08:56 09:00 09:00 MCV 80.7 MCH 24.3 L MCHC 30.1 L RDW 16.2 H Plt Count 380 MPV 8.9 L Absolute Nucleated RBC 0.000 Nucleated RBC % (auto) 0.0 Anion Gap 11 L Estim Creat Clear Calc 57.3 Estimated GFR > 60 Random Glucose 177 H Calcium 8.9 Total Bilirubin Direct Bilirubin AST ALT Alkaline Phosphatase Troponin I High Sens B-Natriuretic Peptide Total Protein Albumin COVID-19 (ELIO) Negative COVID-19 Clin Com See Note 06/06/22 06/06/22 09:00 09:00 MCV MCH MCHC RDW Plt Count MPV Absolute Nucleated RBC Nucleated RBC % (auto) Anion Gap Estim Creat Clear Calc Estimated GFR Random Glucose Calcium Total Bilirubin 0.4 Direct Bilirubin 0.2 AST 12 ALT 11 Alkaline Phosphatase 104 Troponin I High Sens < 3.5 B-Natriuretic Peptide < 10 Total Protein 6.3 L Albumin 3.8 COVID-19 (ELIO) COVID-19 Clin Com Imaging Radiologist's Impressions: Impressions Chest X-Ray 06/06/22 09:40 IMPRESSION: * No acute cardiopulmonary abnormality compared to 05/28/2022. * Chronic emphysematous disease and chronic thickening of bronchial starkey. Correlate for history of chronic cigarette smoking. * The lesions of the superior segment of the right lower lobe and medial right lower lobe are unchanged. Please refer to the PET/CT imaging report from 04/29/2022. Assessment and Plan (1) Acute exacerbation of chronic obstructive pulmonary disease: Status: Acute Plan 76-year-old man known to the hospitalist service with a history of COPD exacerbation and continued smoking, placed on observation for acute COPD exacerbation Acute on chronic respiratory failure secondary to COPD exacerbation No hypoxia noted Continue IV steroids I would schedule DuoNebs Supplemental oxygen Hold off on antibiotics as patient was recently treated with azithromycin during previous hospitalization discharged 05/29/2022 Diabetes mellitus Sliding scale, ADA diet Hypothyroidism Continue levothyroxine DVT prophylaxis with Lovenox Attending Dr. James Full code OBS Quality Stroke Does the patient have a stroke diagnosis?: No VTE Prior VTE?: No VTE Risk Level:: Medical - moderate - high VTE Device Contraindication: Treatment Not Indicated VTE Drug Contraindication: N/A - Med Ordered
[2022-06-06] MEDS: Enoxaparin Sodium 40 MG/0.4 ML SYRINGE SUBCUT (14:17)
--- NOTE | 2022-06-06 14:24 | PC.NURSE ---
PT SEEN BY SARAH (HOSP , [employer]) PT AWARE OF PLAN OF CARE FOR ADMISSION TO HOSP.
[2022-06-06] MEDS: 0.9 % Sodium Chloride Flush 3 ML SYRINGE IVFLUSH (17:50)
[2022-06-06 18:24] LABS: Glucose, Whole Blood 184 mg/dL (60-115)
[2022-06-06] MEDS: Insulin Lispro 100 UNIT/ML 3 ML VIAL SUBCUT ×2 (18:33→21:12)
[2022-06-06 20:54] LABS: Glucose, Whole Blood 237 mg/dL (60-115)
[2022-06-06] MEDS: methylPREDNISolone Sod Succ 40 MG/ML VIAL IVPUSH (21:12)
--- NOTE | 2022-06-06 21:15 | PC.NURSE ---
administered medication to pt per MAR
--- NOTE | 2022-06-06 22:52 | PC.NURSE ---
PT HAS BEEN RESTING COMFORTABLY IN NAD, RESP EVEN, NONLABOURED.
[2022-06-07] MEDS: 0.9 % Sodium Chloride Flush 3 ML SYRINGE IVFLUSH ×2 (00:47→07:59)
[2022-06-07 04:56] VITALS: RESP 17
[2022-06-07] MEDS: methylPREDNISolone Sod Succ 40 MG/ML VIAL IVPUSH ×2 (04:58→12:52)
--- NOTE | 2022-06-07 05:24 | PC.NURSE ---
administered medication per MAR
[2022-06-07 05:41] VITALS: BP 118/55; PULSE 76; RESP 20; O2SAT 94
[2022-06-07 07:10] LABS: Basophils Percent Auto 0.1 % (0-2); Hematocrit 34.4 % (42.0-52.0); Hemoglobin 10.4 g/dl (14.0-18.0); Imm Gran Abs Auto 0.05 X10*3/uL (0.00-0.03); Imm Gran Pct Auto 0.6 % (0.0-0.4); Lymphocytes Absolute Auto 0.4 X10*3/uL (1.2-4.9); Lymphocytes Percent Auto 4.8 % (20-40); MANUAL DIFF FLAG SCAN; Mean Corpuscular HGB Conc 30.2 g/dl (31.0-36.0); Mean Corpuscular Hemoglobin 24.4 pg (27.0-33.0); Mean Corpuscular Volume 80.6 fL (80.0-98.0); Mean Platelet Volume 9.7 fL (9.4-12.4); Monocytes Absolute Auto 0.2 X10*3/uL (0.1-1.2); Neutrophils Absolute Auto 8.3 x10*3/uL (2.0-8.3); Neutrophils Percent Auto 92.5 % (45-73); Platelet Count 394 X10*3/uL (160-400); Red Blood Count 4.27 X10*6/uL (4.60-5.80); Red Cell Distribution Width 15.9 % (11.0-16.0); SCAN SMEAR FLAG 1
[2022-06-07 07:20] LABS: Anion Gap 12 (12-20); Blood Urea Nitrogen 17 mg/dL (9-16); Calcium 8.9 mg/dL (8.4-10.2); Carbon Dioxide 28 mmol/L (22-29); Chloride 102 mmol/L (96-108); Creatinine Clr Calc Pharmacy 55.4; Estimated Glomerular Filt Rate > 60; Glucose Random 186 mg/dL (60-115); Potassium 4.5 mmol/L (3.3-5.1); Sodium 137 mmol/L (135-145)
[2022-06-07 07:42] LABS: SLIDE REVIEW VERIFIED
[2022-06-07 07:51] VITALS: BP 137/56; PULSE 88; RESP 18; TEMP 36.7; O2SAT 94
[2022-06-07] MEDS: Albuterol Sulfate (0.083%) 2.5 MG/3 ML VIAL.NEB INHALE ×2 (07:54→11:08)
[2022-06-07 07:55] VITALS: PULSE 87; RESP 18; O2SAT 95
[2022-06-07] MEDS: Insulin Lispro 100 UNIT/ML 3 ML VIAL SUBCUT (07:58)
[2022-06-07 11:09] VITALS: PULSE 76; RESP 20; O2SAT 95
[2022-06-07 12:38] VITALS: BP 129/45; PULSE 67; RESP 19; TEMP 36.8; O2SAT 98
[2022-06-07 12:44] LABS: Glucose, Whole Blood 139 mg/dL (60-115)
[2022-06-07] MEDS: Enoxaparin Sodium 40 MG/0.4 ML SYRINGE SUBCUT (12:53)
--- NOTE | 2022-06-07 13:40 | P.DS_ITS ---
DS: Providers Provider Date of Service: 06/07/22 Date of admission: 06/06/22 13:51 Primary care physician: Luz Mccall NP [facility] clinician: Emi Marrero DS: Diagnosis Discharge Diagnosis (1) Acute exacerbation of chronic obstructive pulmonary disease: Status: Acute DS: Summary Hospital Course Hospital Course: 76-year-old man presented to the ER with complaints of worsening shortness of breath over the last 2 days.? He does have history of COPD and continues to smoke at least 4-5 cigarettes a day.? He was recently discharged on May 29 and treated for the same.? He had been given antibiotics and prednisone.? He denied chest pain, nausea, vomiting, diarrhea, recent travel, sick contacts.? He is known to the hospitalist service for admissions for his COPD.? He is on oxygen at home.? He has not been hypoxic in the ER.? His labs are within acceptable limits, his COVID is negative.? He was given Solu-Medrol and albuterol in the ER.? He will be placed on observation for acute COPD exacerbation. Acute on chronic respiratory failure secondary to COPD exacerbation No hypoxia noted Treated with IV steroids and duonebs Supplemental oxygen Home with 4 days of prednisone 40mg then resume regular home dose azithromycin for 3 days stop smoking Diabetes mellitus Sliding scale, ADA diet Hypothyroidism Continue levothyroxine Time Spent with Patient Time attestation: Total time spent providing and/or coordinating discharge services: Discharge coordination time: Greater than 30 minutes Quality: Safe Use of Opioids Does Pt have an Active Cancer Diagnosis on the Problem List?: No Quality: Stroke Does the patient have a stroke diagnosis?: No Physical Exam Vital Signs: Vital Signs: Last Vital Signs Temp 98.3 F 06/07/22 12:38 Pulse 67 06/07/22 12:38 Resp 19 06/07/22 12:38 BP 129/45 L 06/07/22 12:38 Pulse Ox 98 06/07/22 12:38 O2 Del Method 06/07/22 12:38 O2 Flow Rate 1 06/06/22 14:14 BMI result Body Mass Index 21.9 Appearing in no acute distress head is normocephalic atraumatic eyes pupils are PERRLA sclera is anicteric mouth throat mucous membranes are intact and moist neck is supple no lymphadenopathy, no JVD noted lung sounds mild wheezes heart regular rate rhythm, clear S1, S2 positive bowel sounds, abdomen is soft, nontender neuro patient is alert x3, no focal deficits DS: Data Data Completed and Pending Completed studies during hospitalization [Text1]: Procedures Dilation of Right Ureter with Intraluminal Device, Via Natural or Artificial Opening Endoscopic (11/16/21) Extirpation of Matter from Right Ureter, Via Natural or Artificial Opening Endoscopic (11/16/21) Fluoroscopy of Right Kidney, Ureter and Bladder (11/16/21) Labs on day of discharge: Laboratory Results - last 24 hr 06/06/22 06/06/22 06/07/22 18:21 20:50 06:42 WBC 9.0 RBC 4.27 L Hgb 10.4 L Hct 34.4 L MCV 80.6 MCH 24.4 L MCHC 30.2 L RDW 15.9 Plt Count 394 MPV 9.7 Immature Gran % (Auto) 0.6 H Neut % (Auto) 92.5 H Lymph % (Auto) 4.8 L [place] % (Auto) 2.0 Eos % (Auto) 0.0 Baso % (Auto) 0.1 Lymph # (Auto) 0.4 L [place] # (Auto) 0.2 Eos # (Auto) 0.0 Baso # (Auto) 0.0 Abs Immat Gran (auto) 0.05 H Absolute Neuts (auto) 8.3 Absolute Nucleated RBC 0.000 Nucleated RBC % (auto) 0.0 Smear Tech's Comments VERIFIED Sodium Potassium Chloride Carbon Dioxide Anion Gap BUN Creatinine Estim Creat Clear Calc Estimated GFR POC Glucose 184 H 237 H Random Glucose Calcium 06/07/22 06/07/22 06:42 12:39 WBC RBC Hgb Hct MCV MCH MCHC RDW Plt Count MPV Immature Gran % (Auto) Neut % (Auto) Lymph % (Auto) [place] % (Auto) Eos % (Auto) Baso % (Auto) Lymph # (Auto) [place] # (Auto) Eos # (Auto) Baso # (Auto) Abs Immat Gran (auto) Absolute Neuts (auto) Absolute Nucleated RBC Nucleated RBC % (auto) Smear Tech's Comments Sodium 137 Potassium 4.5 Chloride 102 Carbon Dioxide 28 Anion Gap 12 BUN 17 H D Creatinine 0.90 Estim Creat Clear Calc 55.4 Estimated GFR > 60 POC Glucose 139 H Random Glucose 186 H Calcium 8.9 Discharge Plan Discharge Anticipated Discharge Date/Time: 06/07/22 13:14 Patient Disposition: Hospice - Home Discharge Diagnosis: Acute COPD exacerbation Referrals: Luz Mccall NP [Primary Care Provider] - 1 Week Discharge Medications: New prednisone 10 mg tablet 40 mg PO DAILY Qty: 16 0RF azithromycin 500 mg tablet 500 mg PO DAILY 3 Days Qty: 3 0RF Continued albuterol sulfate [Ventolin HFA] 90 mcg/actuation HFA aerosol inhaler 2 puff PO Q6H PRN (Reason: shortness of breath or wheezing) Qty: 18 3RF theophylline 400 mg tablet extended release 24 hr 400 mg PO DAILY Qty: 30 6RF metformin 500 mg tablet 500 mg PO DAILY levothyroxine 112 mcg tablet 112 mcg PO DAILY@0600 omeprazole 20 mg capsule,delayed release(DR/EC) 20 mg PO DAILY@0630 ipratropium-albuterol 0.5 mg-3 mg(2.5 mg base)/3 mL solution for nebulization 1 vial inhalation QID PRN (Reason: asthma) mirtazapine 7.5 mg Tablet 7.5 mg PO BEDTIME prednisone 10 mg tablet 10 mg PO DAILY nabumetone 500 mg tablet 1 tab PO BID PRN (Reason: knee pain) duloxetine 30 mg capsule,delayed release(DR/EC) 1 cap PO DAILY multivitamin with folic acid [Daily-Leslie (with folic acid)] 400 mcg tablet 1 tab PO DAILY montelukast 10 mg tablet 1 tab PO BEDTIME pyridoxine (vitamin B6) 100 mg tablet 100 mg PO DAILY 90 Days Qty: 90 1RF Discharge Orders: Discharge Order (Routine); Ordered 06/07/22 Ordered By: Emi Marrero Diet: Advance to usual diet Activity on Discharge: As tolerated Stand Alone Forms: Patient Portal Discharge page Care Plan Goals: Complete resolution of symptoms Health Concerns: Acute COPD exacerbation Plan of Treatment: Follow-up with your primary care provider as needed Take all your medications as prescribed Assessment: See discharge summary
--- NOTE | 2022-06-08 07:00 | MHC.CM.PN ---
Patient discharged before being seen by case management.
== END 2022-06-07 14:25 | disposition home or self-care (01) ==
LOC: HO.ED 11:52 → HO.EDOVER 13:51
PROVIDERS: Admitting Provider Nurse Practitioner Acute Care; Emergency Provider Emergency Medicine; PCP Nurse Practitioner Family; Visit Provider Nurse Practitioner Acute Care
DX: J44.1 Chronic obstructive pulmonary disease with (acute) exacerbation (principal); R06.02 Shortness of breath; E11.9 Type 2 diabetes mellitus without complications; F17.210 Nicotine dependence, cigarettes, uncomplicated; Z20.822 Contact with and (suspected) exposure to COVID-19; Z79.84 Long term (current) use of oral hypoglycemic drugs; Z71.6 Tobacco abuse counseling; Z79.899 Other long term (current) drug therapy
CPT/HCPCS: 36415; 71045; 80048; 80076; 82947; 83880; 84484; 85025; 85027; 87635; 93005; 94640; 94644; 96372; 96374; 96375; 96376; 99218; 99285; J1650; J2920; J2930

== ENCOUNTER 2022-06-19 15:29 | Outpatient (REF) | payer MEDICARE, MEDICAID, SELFPAY ==
--- NOTE | ~2022-06-19 | US_ITS ---
EXAMINATION: US RETROPERITONEAL LIMITED (RENAL ONLY) CLINICAL INFORMATION: Calculus of kidney. COMPARISON: US retroperitoneal limited (renal only) 01/28/2022. CT of the abdomen and pelvis without contrast 11/16/2021. XR abdomen KUB 07/16/2018. TECHNIQUE: Real-time imaging of the kidneys. FINDINGS: RIGHT KIDNEY: 9.7 x 5.2 x 5.1 cm (SAG x AP x TRV). The kidney is normal in size, contour, and echogenicity. Renal cortical thickness is normal. No calculi or focal parenchymal lesions. No hydronephrosis. LEFT KIDNEY: 9.6 x 5.4 x 4.6 cm (SAG x AP x TRV). The kidney is normal in size, contour, and echogenicity. Renal cortical thickness is normal. No focal parenchymal lesions or hydronephrosis. There is an echogenic stone upper/midpole measuring 0.4 x 0.3 x 0.3 cm without caliectasis. US/US renal BI IMPRESSION: Nonobstructive echogenic calculi upper/midpole left kidney. The right kidney is unremarkable.
== END 2022-06-19 15:30 | disposition home or self-care (01) ==
LOC: HO.US 15:29
PROVIDERS: Visit Provider Urology
DX: N20.0 Calculus of kidney (principal); J44.9 Chronic obstructive pulmonary disease, unspecified; C34.90 Malignant neoplasm of unspecified part of unspecified bronchus or lung
CPT/HCPCS: 76775; 99212

== ENCOUNTER → 2022-06-25 15:52 | Outpatient (BNVA) | payer MEDICARE, MEDICAID, SELFPAY | PROVIDERS: PCP Nurse Practitioner Family; Visit Provider Nurse Practitioner | DX: D12.2 Benign neoplasm of ascending colon (principal); D12.5 Benign neoplasm of sigmoid colon; R94.8 Abnormal results of function studies of other organs and systems; K21.9 Gastro-esophageal reflux disease without esophagitis; Z79.899 Other long term (current) drug therapy; Z98.890 Other specified postprocedural states | CPT/HCPCS: 99212 ==

== ENCOUNTER → 2022-08-05 14:07 | Outpatient (BNVA) | payer MEDICARE, MEDICAID, SELFPAY | PROVIDERS: PCP Nurse Practitioner Family; Visit Provider Urology | DX: N20.0 Calculus of kidney (principal) | CPT/HCPCS: 99212 ==

== ENCOUNTER 2022-08-10 15:51 | Emergency (ER) | payer MEDICARE, MEDICAID, SELFPAY ==
--- NOTE | ~2022-08-10 | XR_ITS ---
EXAMINATION: XR CHEST CLINICAL INFORMATION: Shortness of breath COMPARISON: Chest radiograph 06/06/2022 TECHNIQUE: Frontal view of the chest was obtained. FINDINGS: Heart size normal. No evidence of CHF. Calcified granuloma unchanged left lower lobe as are calcified pleural plaques in the right lung. Two moderate sized pulmonary masses in the right lung appear unchanged when compared to prior imaging. No pleural effusions. No acute new finding to account for the patient's new shortness of breath. XR/XR chest 1V IMPRESSION: No significant interval change when compared to the prior study with right-sided pulmonary masses. No acute intrathoracic disease
--- NOTE | 2022-08-10 16:10 | ECG_ITS ---
Test Reason : DYSPENA Blood Pressure : / mmHG Vent. Rate : 087 BPM Atrial Rate : 087 BPM P-R Int : 110 ms QRS Dur : 084 ms QT Int : 338 ms P-R-T Axes : 067 041 051 degrees QTc Int : 406 ms Sinus rhythm with short MN with occasional Premature ventricular complexes and Premature atrial complexes Otherwise normal ECG When compared with ECG of 06-JUN-2022 09:16, Premature ventricular complexes are now Present Referred By: Rony Tabares Electronically Signed By:YVROSE DOS SANTOS
--- NOTE | 2022-08-10 16:12 | PC.NURSE ---
patient presents with SOB , use of axillary muscles . audible wheezes in upper lobes . RT called at bedside . Provider at bedside . Orderers obtained for neb treatments . Iv placed in right AC , labs obtained . RT administered neb treatments patient aware of plan of care .
--- NOTE | 2022-08-10 16:15 | ED.GENADULT ---
HPI - General Adult General Chief complaint: Dyspnea Stated complaint: sob,asthma Time Seen by Provider: 08/10/22 16:06 Source: patient, EMS and old records reviewed Limitations: other (Difficulty breathing) History of Present Illness HPI narrative: Patient with a history of asthma and COPD who complains of shortness of breath since yesterday. Positive yellow sputum. No fevers or chills. Further history limited by shortness of breath Related Data Home Medications Medication Instructions Recorded Confirmed metformin 500 mg tablet 500 mg PO DAILY 09/28/20 08/05/22 levothyroxine 112 mcg tablet 112 mcg PO DAILY@0600 12/01/20 08/05/22 omeprazole 20 mg capsule,delayed 20 mg PO DAILY@0612/01/20 08/05/22 release ipratropium 0.5 mg-albuterol 3 mg 1 vial inhalation QID PRN asthma 08/06/21 08/05/22 (2.5 mg base)/3 mL nebulization soln mirtazapine 7.5 mg tablet 7.5 mg PO BEDTIME 11/16/21 08/05/22 duloxetine 30 mg capsule,delayed 1 cap PO DAILY 01/29/22 08/05/22 release nabumetone 500 mg tablet 1 tab PO BID PRN knee pain 01/29/22 08/05/22 montelukast 10 mg tablet 1 tab PO BEDTIME 05/28/22 08/05/22 testosterone cypionate 200 mg/mL mg IM 06/25/22 08/05/22 intramuscular oil Previous Rx's Medication Instructions Recorded Ventolin HFA 90 mcg/actuation 2 puff PO Q6H PRN shortness of 03/03/22 aerosol inhaler (albuterol sulfate) breath or wheezing #18 ea theophylline 400 mg 400 mg PO DAILY #30 tabs 05/04/22 tablet,extended release 24 hr levofloxacin 750 mg tablet 750 mg PO DAILY 7 days #7 tabs 06/19/22 prednisone 10 mg tablet 15 mg PO DAILY #45 tabs 07/03/22 pyridoxine (vitamin B6) 100 mg 100 mg PO DAILY 90 days #90 tabs 08/05/22 tablet azithromycin 250 mg tablet See Rx Instructions PO .COMPLEX #6 08/10/22 tabs prednisone 20 mg tablet 40 mg PO DAILY #10 tabs 08/10/22 Allergies Allergy/AdvReac Type Severity Reaction Status Date / Time shellfish derived Allergy Severe ANAPHYLAXIS Verified 08/04/22 15:20 [SHELLFISH DERIVED] pollen extracts [POLLEN] Allergy Intermediate RUNNING Verified 08/04/22 15:20 NOSE, WATERY EYES, SNEEZING varenicline [VARENICLINE] AdvReac Unknown PALPITATION Verified 08/04/22 15:20 S Review of Systems Constitutional: Comments: No fevers or chills Cardiovascular: Comments: No chest pain Respiratory: Comments: Positive shortness of breath with cough and sputum Gastrointestinal: Comments: No abdominal pain or nausea vomiting Musculoskeletal: Comments: No leg pain Integumentary/Breasts: Comments: No rash PMFSH Past Medical History Medical History Abnormal PET scan of colon Asthma Chronic respiratory failure COPD (chronic obstructive pulmonary disease) Diabetes GERD (gastroesophageal reflux disease) Hypertension Hypothyroidism Osteoarthritis Osteoporosis Oxygen dependent Sepsis Tobacco dependence Ureteral calculi Surgical History History of appendectomy History of cataract surgery (~2011) History of lithotripsy (~2008) History of lung biopsy (~2021) Family History Family History Father Throat cancer Brother Lung cancer Other Hypertension Social History Social History Household Members: Spouse Housing: Apartment Are you a primary healthcare advisory services manager to a significant other at home: No Do you presently have visiting nurse or other home services: No Alcohol intake: unknown Patient Tobacco Use Status: Current everyday Tobacco user Tobacco use type: Cigarette Cigarette Packs Per Day: 0.5 Years Smoked: 50 e-Cigarette/Vaping Use: Currently Using Second Hand Smoke Exposure: No Advance Directives: No Advance Directives Information Provided: No Advance Directives Date on File: 12/18/20 service: No Current occupational status: unemployed and retired Physical Exam ED Vital Signs: Vital Signs - 24 hr 08/10/22 16:27 08/10/22 16:32 08/10/22 16:40 Temperature 98.1 F 98.1 F Pulse Rate 86 100 96 Respiratory Rate 25 H 20 20 Blood Pressure 95/55 L 95/55 L Pulse Oximetry 98 96 Oxygen Delivery Method Nasal Cannula Nasal Cannula Oxygen Flow Rate 3 08/10/22 18:54 Temperature 98.2 F Pulse Rate 80 Respiratory Rate 21 H Blood Pressure 116/56 L Pulse Oximetry 98 Oxygen Delivery Method Nasal Cannula Oxygen Flow Rate 3 BMI result Body Mass Index 20.2 Const Other: Awake and alert. Moderate respiratory distress with clear accessory muscle use. 2-3 word sentences Resp Other: Diminished bilaterally. No obvious wheezes rales or rhonchi. Poor air entry overall Cardio Other: Regular rate and rhythm without murmurs rubs or gallops GI Other: Soft nontender nondistended Skin Other: One pink and dry without rash Neuro Other: Nonfocal Course Course Course Narrative: COPD exacerbation Pneumonia Bronchitis Respiratory failure Treated with 10 mg of albuterol with 0.5 mg of Atrovent Solu-Medrol 125 mg. 19:03. Lab work is largely unremarkable. Chest x-ray shows pulmonary masses which are unchanged from prior studies. No obvious new infiltrates. Patient feels much better after his treatment. Will discharge home on prednisone. Also given change in sputum, will start on azithromycin Medical Decision Making Lab Data Result diagrams: 08/10/22 16:26 08/10/22 16:26 Labs: Lab Results 08/10/22 08/10/22 08/10/22 Range/Units 16:26 16:26 16:26 WBC 10.0 (4.8-10.8) X10*3/uL RBC 5.06 D (4.60-5.80) X10*6/uL Hgb 11.8 L (14.0-18.0) g/dl Hct 39.3 L (42.0-52.0) % MCV 77.7 L (80.0-98.0) fL MCH 23.3 L (27.0-33.0) pg MCHC 30.0 L (31.0-36.0) g/dl RDW 16.7 H (11.0-16.0) % Plt Count 455 H (160-400) X10*3/uL MPV 10.2 (9.4-12.4) fL Immature Gran % (Auto) 0.4 (0.0-0.4) % Neut % (Auto) 72.3 (45-73) % Lymph % (Auto) 16.7 L (20-40) % [place] % (Auto) 7.1 (2-11) % Eos % (Auto) 3.0 (0-4) % Baso % (Auto) 0.5 (0-2) % Lymph # (Auto) 1.7 (1.2-4.9) X10*3/uL [place] # (Auto) 0.7 (0.1-1.2) X10*3/uL Eos # (Auto) 0.3 (0.0-0.4) X10*3/uL Baso # (Auto) 0.1 (0.0-0.2) X10*3/uL Abs Immat Gran (auto) 0.04 H (0.00-0.03) X10*3/uL Absolute Neuts (auto) 7.3 (2.0-8.3) x10*3/uL Absolute Nucleated RBC 0.000 (0.0-0.012) X10*3/uL Nucleated RBC % (auto) 0.0 (0.0-0.2) /100WBC D-Dimer High Sensitivty NG/ML VBG pH (7.32-7.43) VBG pCO2 mmHg VBG pO2 mmHg VBG HCO3 (22-26) mmol/L VBG O2 Saturation % VBG Base Excess mmol/L Sodium 142 (135-145) mmol/L Potassium 4.3 (3.3-5.1) mmol/L Chloride 101 (96-108) mmol/L Carbon Dioxide 30 H (22-29) mmol/L Anion Gap 15 (12-20) BUN 9 (9-16) mg/dL Creatinine 0.82 (0.5-1.4) mg/dL Estim Creat Clear Calc 61.7 Estimated GFR > 60 Random Glucose 79 D (60-115) mg/dL Lactic Acid (0.5-2.0) mmol/L Calcium 9.0 D (8.4-10.2) mg/dL Total Bilirubin 0.4 (0.0-1.0) mg/dL AST 14 D (5-37) U/L ALT 10 (0-40) U/L Alkaline Phosphatase 115 (39-117) U/L Troponin I High Sens < 3.5 (<3.5-35.0) ng/L Total Protein 7.1 (6.5-8.0) g/dL Albumin 4.1 (3.5-5.0) g/dL Influenza Type A (PCR) (Negative) Influenza Type B (PCR) (Negative) RSV RNA Qual (PCR) (Negative) SARS-CoV-2 RNA (RT-PCR) (Negative) 08/10/22 08/10/22 08/10/22 Range/Units 16:31 17:05 17:05 WBC (4.8-10.8) X10*3/uL RBC (4.60-5.80) X10*6/uL Hgb (14.0-18.0) g/dl Hct (42.0-52.0) % MCV (80.0-98.0) fL MCH (27.0-33.0) pg MCHC (31.0-36.0) g/dl RDW (11.0-16.0) % Plt Count (160-400) X10*3/uL MPV (9.4-12.4) fL Immature Gran % (Auto) (0.0-0.4) % Neut % (Auto) (45-73) % Lymph % (Auto) (20-40) % [place] % (Auto) (2-11) % Eos % (Auto) (0-4) % Baso % (Auto) (0-2) % Lymph # (Auto) (1.2-4.9) X10*3/uL [place] # (Auto) (0.1-1.2) X10*3/uL Eos # (Auto) (0.0-0.4) X10*3/uL Baso # (Auto) (0.0-0.2) X10*3/uL Abs Immat Gran (auto) (0.00-0.03) X10*3/uL Absolute Neuts (auto) (2.0-8.3) x10*3/uL Absolute Nucleated RBC (0.0-0.012) X10*3/uL Nucleated RBC % (auto) (0.0-0.2) /100WBC D-Dimer High Sensitivty 195 NG/ML VBG pH 7.43 (7.32-7.43) VBG pCO2 48 mmHg VBG pO2 70 mmHg VBG HCO3 32 H (22-26) mmol/L VBG O2 Saturation 95.0 % VBG Base Excess 7.1 mmol/L Sodium (135-145) mmol/L Potassium (3.3-5.1) mmol/L Chloride (96-108) mmol/L Carbon Dioxide (22-29) mmol/L Anion Gap (12-20) BUN (9-16) mg/dL Creatinine (0.5-1.4) mg/dL Estim Creat Clear Calc Estimated GFR Random Glucose (60-115) mg/dL Lactic Acid 0.7 (0.5-2.0) mmol/L Calcium (8.4-10.2) mg/dL Total Bilirubin (0.0-1.0) mg/dL AST (5-37) U/L ALT (0-40) U/L Alkaline Phosphatase (39-117) U/L Troponin I High Sens (<3.5-35.0) ng/L Total Protein (6.5-8.0) g/dL Albumin (3.5-5.0) g/dL Influenza Type A (PCR) (Negative) Influenza Type B (PCR) (Negative) RSV RNA Qual (PCR) (Negative) SARS-CoV-2 RNA (RT-PCR) (Negative) 08/10/22 Range/Units Unknown WBC (4.8-10.8) X10*3/uL RBC (4.60-5.80) X10*6/uL Hgb (14.0-18.0) g/dl Hct (42.0-52.0) % MCV (80.0-98.0) fL MCH (27.0-33.0) pg MCHC (31.0-36.0) g/dl RDW (11.0-16.0) % Plt Count (160-400) X10*3/uL MPV (9.4-12.4) fL Immature Gran % (Auto) (0.0-0.4) % Neut % (Auto) (45-73) % Lymph % (Auto) (20-40) % [place] % (Auto) (2-11) % Eos % (Auto) (0-4) % Baso % (Auto) (0-2) % Lymph # (Auto) (1.2-4.9) X10*3/uL [place] # (Auto) (0.1-1.2) X10*3/uL Eos # (Auto) (0.0-0.4) X10*3/uL Baso # (Auto) (0.0-0.2) X10*3/uL Abs Immat Gran (auto) (0.00-0.03) X10*3/uL Absolute Neuts (auto) (2.0-8.3) x10*3/uL Absolute Nucleated RBC (0.0-0.012) X10*3/uL Nucleated RBC % (auto) (0.0-0.2) /100WBC D-Dimer High Sensitivty NG/ML VBG pH (7.32-7.43) VBG pCO2 mmHg VBG pO2 mmHg VBG HCO3 (22-26) mmol/L VBG O2 Saturation % VBG Base Excess mmol/L Sodium (135-145) mmol/L Potassium (3.3-5.1) mmol/L Chloride (96-108) mmol/L Carbon Dioxide (22-29) mmol/L Anion Gap (12-20) BUN (9-16) mg/dL Creatinine (0.5-1.4) mg/dL Estim Creat Clear Calc Estimated GFR Random Glucose (60-115) mg/dL Lactic Acid (0.5-2.0) mmol/L Calcium (8.4-10.2) mg/dL Total Bilirubin (0.0-1.0) mg/dL AST (5-37) U/L ALT (0-40) U/L Alkaline Phosphatase (39-117) U/L Troponin I High Sens (<3.5-35.0) ng/L Total Protein (6.5-8.0) g/dL Albumin (3.5-5.0) g/dL Influenza Type A (PCR) NEGATIVE (Negative) Influenza Type B (PCR) NEGATIVE (Negative) RSV RNA Qual (PCR) NEGATIVE (Negative) SARS-CoV-2 RNA (RT-PCR) NEGATIVE (Negative) Discharge Plan Discharge Clinical Impression: COPD (chronic obstructive pulmonary disease) Patient Disposition: Home, Self-Care Instructions: COPD (Chronic Obstructive Pulmonary Disease) (ED) Prescriptions: New prednisone 20 mg tablet 40 mg PO DAILY Qty: 10 0RF azithromycin 250 mg tablet See Rx Instructions .ROUTE .COMPLEX Qty: 6 0RF Rx Instructions: For 250 mg dose pack: take 500 mg today (day 1), then 250 mg for 4 days (days 2-5) No Action albuterol sulfate [Ventolin HFA] 90 mcg/actuation HFA aerosol inhaler 2 puff PO Q6H PRN (Reason: shortness of breath or wheezing) Qty: 18 3RF theophylline 400 mg tablet extended release 24 hr 400 mg PO DAILY Qty: 30 6RF prednisone 10 mg tablet 15 mg PO DAILY Qty: 45 6RF metformin 500 mg tablet 500 mg PO DAILY levothyroxine 112 mcg tablet 112 mcg PO DAILY@0600 omeprazole 20 mg capsule,delayed release(DR/EC) 20 mg PO DAILY@0630 ipratropium-albuterol 0.5 mg-3 mg(2.5 mg base)/3 mL solution for nebulization 1 vial inhalation QID PRN (Reason: asthma) mirtazapine 7.5 mg Tablet 7.5 mg PO BEDTIME nabumetone 500 mg tablet 1 tab PO BID PRN (Reason: knee pain) duloxetine 30 mg capsule,delayed release(DR/EC) 1 cap PO DAILY montelukast 10 mg tablet 1 tab PO BEDTIME pyridoxine (vitamin B6) 100 mg tablet 100 mg PO DAILY 90 Days Qty: 90 1RF levofloxacin 750 mg tablet 750 mg PO DAILY 7 Days Qty: 7 0RF testosterone cypionate 200 mg/mL oil IM
[2022-08-10] MEDS: methylPREDNISolone Sod Succ 125 MG/2 ML VIAL IVPUSH (16:18)
[2022-08-10] MEDS: 0.9 % Sodium Chloride 500 ML IV (16:19)
[2022-08-10] MEDS: Albuterol Sulfate (0.083%) 2.5 MG/3 ML VIAL.NEB 7.5 MG INHALE (16:24)
[2022-08-10] MEDS: Albuterol/Iprat 2.5/0.5MG 3 ML AMPUL.NEB INHALE (16:24)
[2022-08-10 16:27] VITALS: PULSE 86; RESP 25; O2SAT 94
[2022-08-10 16:31] LABS: MANUAL DIFF FLAG NO
[2022-08-10 16:32] VITALS: BP 95/55; PULSE 100; RESP 20; TEMP 36.7; O2SAT 98; BMI 20.2
[2022-08-10 16:35] LABS: VBG Base Excess 7.1 mmol/L; VBG HCO3 32 mmol/L (22-26); VBG pCO2 48 mmHg; VBG pH 7.43 (7.32-7.43); VBG pO2 70 mmHg
[2022-08-10 16:38] LABS: Venous Blood Gas Refer to POC result
[2022-08-10 16:40] VITALS: BP 95/55; PULSE 96; RESP 20; TEMP 36.7; O2SAT 96
--- NOTE | 2022-08-10 16:42 | PC.NURSE ---
patient received neb treatment . breathing improved , non labored . wheezing diminished . patient appears comfortable . vitals stable . labs sent to lab . patient aware of plan of care .
[2022-08-10 16:45] LABS: Basophils Absolute Auto 0.1 X10*3/uL (0.0-0.2); Basophils Percent Auto 0.5 % (0-2); Eosinophils Absolute Auto 0.3 X10*3/uL (0.0-0.4); Hematocrit 39.3 % (42.0-52.0); Hemoglobin 11.8 g/dl (14.0-18.0); Imm Gran Abs Auto 0.04 X10*3/uL (0.00-0.03); Imm Gran Pct Auto 0.4 % (0.0-0.4); Lymphocytes Absolute Auto 1.7 X10*3/uL (1.2-4.9); Lymphocytes Percent Auto 16.7 % (20-40); Mean Corpuscular Hemoglobin 23.3 pg (27.0-33.0); Mean Corpuscular Volume 77.7 fL (80.0-98.0); Mean Platelet Volume 10.2 fL (9.4-12.4); Monocytes Absolute Auto 0.7 X10*3/uL (0.1-1.2); Monocytes Percent Auto 7.1 % (2-11); Neutrophils Absolute Auto 7.3 x10*3/uL (2.0-8.3); Neutrophils Percent Auto 72.3 % (45-73); Platelet Count 455 X10*3/uL (160-400); Red Blood Count 5.06 X10*6/uL (4.60-5.80); Red Cell Distribution Width 16.7 % (11.0-16.0)
[2022-08-10 16:55] LABS: Alanine Aminotransferase 10 U/L (0-40); Albumin Level 4.1 g/dL (3.5-5.0); Alkaline Phosphatase 115 U/L (39-117); Anion Gap 15 (12-20); Aspartate Amino Transferase 14 U/L (5-37); Bilirubin Total 0.4 mg/dL (0.0-1.0); Blood Urea Nitrogen 9 mg/dL (9-16); Carbon Dioxide 30 mmol/L (22-29); Chloride 101 mmol/L (96-108); Creatinine Clr Calc Pharmacy 61.7; Estimated Glomerular Filt Rate > 60; Glucose Random 79 mg/dL (60-115); Potassium 4.3 mmol/L (3.3-5.1); Sodium 142 mmol/L (135-145); Total Protein 7.1 g/dL (6.5-8.0)
[2022-08-10 17:01] LABS: Troponin-I High Sensitivity < 3.5 ng/L (<3.5-35.0)
[2022-08-10 17:28] LABS: Lactic Acid 0.7 mmol/L (0.5-2.0)
[2022-08-10 17:38] LABS: D Dimer High Sensitivity 195 NG/ML
[2022-08-10 18:23] LABS: Influenza A PCR NEGATIVE (Negative); Influenza B PCR NEGATIVE (Negative); Resp Syncy Virus RNA Qual PCR NEGATIVE (Negative); SARS COV2 PCR INHOUSE NEGATIVE (Negative)
[2022-08-10 18:54] VITALS: BP 116/56; PULSE 80; RESP 21; TEMP 36.8; O2SAT 98
== END 2022-08-10 19:22 | disposition home or self-care (01) ==
PROVIDERS: Emergency Provider Emergency Medicine; PCP Internal Medicine
DX: J44.9 Chronic obstructive pulmonary disease, unspecified (principal); R06.02 Shortness of breath; E11.9 Type 2 diabetes mellitus without complications; I10 Essential (primary) hypertension; F17.210 Nicotine dependence, cigarettes, uncomplicated; Z20.822 Contact with and (suspected) exposure to COVID-19; Z99.81 Dependence on supplemental oxygen; Z79.84 Long term (current) use of oral hypoglycemic drugs; Z79.899 Other long term (current) drug therapy
CPT/HCPCS: 0241U; 36415; 71045; 80053; 82803; 83605; 84484; 85025; 85379; 87040; 93005; 94640; 96361; 96374; 99284; 99285; J2930

== ENCOUNTER 2022-08-13 08:58 | Outpatient (REF) | payer MEDICARE, MEDICAID, SELFPAY ==
--- NOTE | ~2022-08-13 | MR_ITS ---
EXAMINATION: MR BRAIN WITHOUT AND WITH CONTRAST CLINICAL INFORMATION: Non-small cell lung carcinoma. COMPARISON: No relevant prior imaging. TECHNIQUE: Multiplanar MR imaging of the brain was performed without and with contrast. A total of 5 mL Gadavist was utilized for this examination. FINDINGS: Postcontrast images reveal no abnormal intracranial mass or enhancement. There is no intracranial mass effect or midline shift. No abnormal extra-axial collection. Lateral and third ventricles are normal. No hydrocephalus. Midline structures including the cervicomedullary junction are normal. No acute bone marrow signal changes. There are numerous foci of T2 FLAIR signal hyperintensity within the periventricular white matter. No acute territorial infarct. No pathological magnetic susceptibility artifact. Intracranial vascular flow voids are grossly maintained. Trace mastoid effusions. Fluid nearly completely fills the right maxillary sinus cavity. Otherwise no active paranasal sinus disease. MR/MR head/brain wo/w con IMPRESSION: Unremarkable examination in that there is no evidence of intracranial metastatic disease. There are numerous chronic small vessel ischemic changes within the periventricular white matter. No evidence of acute territorial infarct or hemorrhage. Fluid nearly completely fills the right maxillary sinus cavity. Otherwise no active paranasal sinus disease.
== END 2022-08-13 08:59 | disposition home or self-care (01) ==
LOC: HO.MRI 08:58
PROVIDERS: Visit Provider Internal Medicine Medical Oncology
DX: C34.90 Malignant neoplasm of unspecified part of unspecified bronchus or lung (principal)
CPT/HCPCS: 70553; A9585

== ENCOUNTER 2022-08-28 15:57 | Inpatient (IN) | payer MEDICARE, MEDICAID, SELFPAY ==
--- NOTE | ~2022-08-28 | XR_ITS ---
EXAMINATION: XR CHEST CLINICAL INFORMATION: Cough, shortness of breath COMPARISON: 08/10/2022 TECHNIQUE: Frontal view of the chest was obtained. FINDINGS: Lung volumes are symmetric. Redemonstrated right-sided pulmonary masses, without appreciable change from 08/10/2022. No new consolidation is seen. Redemonstrated calcified granuloma at the left base. Biapical scarring is redemonstrated. No evidence of pneumothorax or significant pleural effusion. The cardiomediastinal silhouette is stable. No acute osseous findings are seen. XR/XR chest 1V IMPRESSION: Redemonstrated right lung masses, without appreciable change from 08/10/2022. No new acute findings identified.
[2022-08-28 16:02] VITALS: BP 107/51; PULSE 97; RESP 20; TEMP 36.6; O2SAT 97; BMI 18.3
--- NOTE | 2022-08-28 16:06 | ECG_ITS ---
Test Reason : DYSPNEA Blood Pressure : / mmHG Vent. Rate : 090 BPM Atrial Rate : 090 BPM P-R Int : 114 ms QRS Dur : 082 ms QT Int : 312 ms P-R-T Axes : 083 070 077 degrees QTc Int : 381 ms Normal sinus rhythm Normal ECG When compared with ECG of 10-AUG-2022 17:01, Premature ventricular complexes are no longer Present Premature atrial complexes are no longer Present T wave amplitude has increased in Inferior leads T wave amplitude has increased in Anterolateral leads Referred By: Generic ED Physician Electronically Signed By:YVROSE DOS SANTOS
[2022-08-28 16:22] LABS: Basophils Percent Auto 0.3 % (0-2); Eosinophils Percent Auto 0.3 % (0-4); Hematocrit 36.4 % (42.0-52.0); Hemoglobin 10.8 g/dl (14.0-18.0); Imm Gran Abs Auto 0.02 X10*3/uL (0.00-0.03); Imm Gran Pct Auto 0.3 % (0.0-0.4); Lymphocytes Absolute Auto 0.4 X10*3/uL (1.2-4.9); Lymphocytes Percent Auto 5.2 % (20-40); MANUAL DIFF FLAG SCAN; Mean Corpuscular HGB Conc 29.7 g/dl (31.0-36.0); Mean Corpuscular Hemoglobin 23.2 pg (27.0-33.0); Mean Corpuscular Volume 78.3 fL (80.0-98.0); Mean Platelet Volume 9.5 fL (9.4-12.4); Monocytes Absolute Auto 0.1 X10*3/uL (0.1-1.2); Monocytes Percent Auto 1.8 % (2-11); Neutrophils Absolute Auto 6.6 x10*3/uL (2.0-8.3); Neutrophils Percent Auto 92.1 % (45-73); Platelet Count 366 X10*3/uL (160-400); Red Blood Count 4.65 X10*6/uL (4.60-5.80); Red Cell Distribution Width 17.3 % (11.0-16.0); SCAN SMEAR FLAG 1; White Blood Count 7.2 X10*3/uL (4.8-10.8)
[2022-08-28 16:37] LABS: Alanine Aminotransferase 9 U/L (0-40); Albumin Level 3.9 g/dL (3.5-5.0); Alkaline Phosphatase 110 U/L (39-117); Anion Gap 17 (12-20); Aspartate Amino Transferase 12 U/L (5-37); Bilirubin Total 0.4 mg/dL (0.0-1.0); Blood Urea Nitrogen 9 mg/dL (9-16); Calcium 8.8 mg/dL (8.4-10.2); Carbon Dioxide 24 mmol/L (22-29); Chloride 103 mmol/L (96-108); Creatinine Clr Calc Pharmacy 41.5; Estimated Glomerular Filt Rate > 60; Glucose Random 172 mg/dL (60-115); Potassium 4.9 mmol/L (3.3-5.1); Sodium 139 mmol/L (135-145); Total Protein 6.6 g/dL (6.5-8.0)
[2022-08-28 16:39] LABS: COVID-19 Test Negative (Negative); IDNOW Serial# 16C4AD1C
[2022-08-28 16:41] LABS: B Type Natriuretic Peptide 13 pg/mL (<100); Troponin-I High Sensitivity < 3.5 ng/L (<3.5-35.0)
--- NOTE | 2022-08-28 16:59 | ED_ITS ---
HPI - SOB/Dyspnea General Chief Complaint: Dyspnea Stated Complaint: asthma,unable to sleep,body pain Source: patient Mode of arrival: ambulatory Limitations: language barrier History of Present Illness HPI Narrative: 76-year-old male presents with 4 days of worsening shortness of breath, cough, and congestion. States that he was treated approximately 2 weeks ago upper respiratory symptoms and given an antibiotic. He states that he felt a little better but MD elicited complaint: shortness of breath and cough Pertinent past history: COPD and other (Lung CA) Onset (ago): day(s) (4) Context: recent illness Timing: constant Severity: moderate Exacerbating factors: lying flat, exertion, coughing and talking Known history of: COPD and recurrent pneumonia Associated symptoms: cough, wheezing, sputum production and chest congestion Related Data Home oxygen amount: none Home Medications Medication Instructions Recorded Confirmed metformin 500 mg tablet 500 mg PO DAILY 09/28/20 08/28/22 levothyroxine 112 mcg tablet 112 mcg PO DAILY@0600 12/01/20 08/28/22 omeprazole 20 mg capsule,delayed 20 mg PO DAILY@0612/01/20 08/28/22 release ipratropium 0.5 mg-albuterol 3 mg 1 vial inhalation QID PRN asthma 08/06/21 08/28/22 (2.5 mg base)/3 mL nebulization soln mirtazapine 7.5 mg tablet 7.5 mg PO BEDTIME PRN Sleep 11/16/21 08/28/22 duloxetine 30 mg capsule,delayed 1 cap PO DAILY 01/29/22 08/28/22 release nabumetone 500 mg tablet 1 tab PO BID PRN knee pain 01/29/22 08/28/22 montelukast 10 mg tablet 1 tab PO BEDTIME 05/28/22 08/28/22 fluticasone fur. 200 mcg-umeclid 1 puff inhalation DAILY 08/28/22 08/28/22 62.5 mcg-vilant 25 mcg inhalat.powder (Trelegy Ellipta) multivitamin with folic acid 400 1 tab PO DAILY 08/28/22 08/28/22 mcg tablet (Daily-Leslie (with folic acid)) Previous Rx's Medication Instructions Recorded Ventolin HFA 90 mcg/actuation 2 puff PO Q6H PRN shortness of 03/03/22 aerosol inhaler (albuterol sulfate) breath or wheezing #18 ea theophylline 400 mg 400 mg PO DAILY #30 tabs 05/04/22 tablet,extended release 24 hr prednisone 10 mg tablet 15 mg PO DAILY #45 tabs 07/03/22 pyridoxine (vitamin B6) 100 mg 100 mg PO DAILY 90 days #90 tabs 08/05/22 tablet Allergies Allergy/AdvReac Type Severity Reaction Status Date / Time shellfish derived Allergy Severe ANAPHYLAXIS Verified 08/04/22 15:20 [SHELLFISH DERIVED] pollen extracts [POLLEN] Allergy Intermediate RUNNING Verified 08/04/22 15:20 NOSE, WATERY EYES, SNEEZING varenicline [VARENICLINE] AdvReac Unknown PALPITATION Verified 08/04/22 15:20 S Review of Systems Review of Systems: Constitutional: No Fever, No Chills ENT/Mouth: No Ear Pain, No Hoarseness, No sore throat Eyes: No Eye Pain, No Swelling, No Redness, No Foreign Body Cardiovascular: No Chest Pain, positive SOB Respiratory: Positive productive Cough, positive Dyspnea Gastrointestinal: No Nausea, No Vomiting, No Diarrhea, No abdominal Pain Genitourinary: No Dysuria, No Hematuria Musculoskeletal: No joint pain, No Myalgias, No Joint Swelling Skin: No Skin lacerations, No rash Neuro: No Weakness, No Numbness, No Paresthesias, No Loss of Consciousness, No Dizziness, No Headache Psych: No Anxiety/Panic, No Depression Heme/Lymph: no easy bruising, no Lymphadenopathy Endocrine: No Polyuria, No Polydipsia Yes all other systems are reviewed and are negative PMFSH Past Medical History Attestation statement: The following information was validated with the patient. Source: old records reviewed Medical History Abnormal PET scan of colon Asthma Chronic respiratory failure COPD (chronic obstructive pulmonary disease) Diabetes GERD (gastroesophageal reflux disease) Hypertension Hypothyroidism Osteoarthritis Osteoporosis Oxygen dependent Sepsis Tobacco dependence Ureteral calculi Surgical History History of appendectomy History of cataract surgery (~2011) History of lithotripsy (~2008) History of lung biopsy (~2021) Family History Family History Father Throat cancer Brother Lung cancer Other Hypertension Social History Social History Household Members: Spouse Housing: Apartment Are you a primary healthcare administrator to a significant other at home: No Do you presently have visiting nurse or other home services: No Alcohol intake: unknown Patient Tobacco Use Status: Current everyday Tobacco user Tobacco use type: Cigarette Cigarette Packs Per Day: 0.5 Years Smoked: 50 e-Cigarette/Vaping Use: Currently Using Second Hand Smoke Exposure: No Advance Directives: No Advance Directives Information Provided: Yes Advance Directives Date on File: 12/18/20 service: No Current occupational status: unemployed and retired Physical Exam Vital Signs: Vital Signs: Last Vital Signs Temp 98.3 F 08/28/22 17:57 Pulse 78 08/28/22 17:57 Resp 18 08/28/22 17:57 BP 114/64 08/28/22 17:57 Pulse Ox 97 08/28/22 17:57 O2 Del Method 08/28/22 17:57 BMI result Body Mass Index 18.3 Appearance: Alert. Oriented X3. No acute distress. Eyes: Pupils equal, round and reactive to light. ENT: Pharynx normal. Neck: Normal inspection. Neck supple. CVS: Tachycardic heart rate and rhythm. Pulses normal. Respiratory: Coarse lung sounds throughout, diminished bases, poor air flow. Abdomen: Soft and nontender. Skin: Skin warm and dry. Normal skin color. Normal skin turgor. Extremities: No lower extremity edema. Moves all extremities against resistance. Neuro: No motor deficit. No sensory deficit. Cranial nerves 2-12 intact. Course Course Course Narrative: 76-year-old male with past medical history of lung cancer, diabetes, hypothyroidism, COPD with respiratory failure, bronchitis, tobacco dependence, presents for evaluation for days of worsening upper respiratory symptoms. Was treated on 08/10/2022 with azithromycin and respiratory treatments in the emergency department. Patient states that he got better for short period of time, then started to worsen about 4 days ago. He said that is difficult for him to ambulate, and he can not catch his breath. He does not report fevers, chest pain or pressure, palpitations. Patient had labs drawn while he was in the emergency department waiting room, will add on lactic acid, cultures, give 500 mL bolus of fluid, and ceftriaxone and Solu-Medrol. 18:40 lung sounds continue the course, order for 2nd albuterol 10 ml. 19:17 discussion with hospitalist, plan of care is to admit for COPD exacerbation. Consultations Consultation #1: Melissa Time: 19:17 MDM - SOB/Dyspnea Differential Diagnosis Differential diagnosis: Likely acute exacerbation of chronic obstructive airways disease, congestive heart failure, pneumonia and asthma with exacerbation Medical Records Attestation: I reviewed the patient's medical records. Lab Data Attestation: I reviewed the patient's lab results. Result diagrams: 08/28/22 16:14 08/28/22 16:14 Labs: Lab Results 08/28/22 08/28/22 08/28/22 Range/Units 16:14 16:14 16:14 WBC 7.2 (4.8-10.8) X10*3/uL RBC 4.65 (4.60-5.80) X10*6/uL Hgb 10.8 L (14.0-18.0) g/dl Hct 36.4 L (42.0-52.0) % MCV 78.3 L (80.0-98.0) fL MCH 23.2 L (27.0-33.0) pg MCHC 29.7 L (31.0-36.0) g/dl RDW 17.3 H (11.0-16.0) % Plt Count 366 (160-400) X10*3/uL MPV 9.5 (9.4-12.4) fL Immature Gran % (Auto) 0.3 (0.0-0.4) % Neut % (Auto) 92.1 H (45-73) % Lymph % (Auto) 5.2 L (20-40) % [place] % (Auto) 1.8 L (2-11) % Eos % (Auto) 0.3 (0-4) % Baso % (Auto) 0.3 (0-2) % Lymph # (Auto) 0.4 L (1.2-4.9) X10*3/uL [place] # (Auto) 0.1 (0.1-1.2) X10*3/uL Eos # (Auto) 0.0 (0.0-0.4) X10*3/uL Baso # (Auto) 0.0 (0.0-0.2) X10*3/uL Abs Immat Gran (auto) 0.02 (0.00-0.03) X10*3/uL Absolute Neuts (auto) 6.6 (2.0-8.3) x10*3/uL Absolute Nucleated RBC 0.000 (0.0-0.012) X10*3/uL Nucleated RBC % (auto) 0.0 (0.0-0.2) /100WBC Smear Tech's Comments VERIFIED VBG pH (7.32-7.43) VBG pCO2 mmHg VBG pO2 mmHg VBG HCO3 (22-26) mmol/L VBG O2 Saturation % VBG Base Excess mmol/L Sodium 139 (135-145) mmol/L Potassium 4.9 (3.3-5.1) mmol/L Chloride 103 (96-108) mmol/L Carbon Dioxide 24 (22-29) mmol/L Anion Gap 17 (12-20) BUN 9 (9-16) mg/dL Creatinine 1.10 (0.5-1.4) mg/dL Estim Creat Clear Calc 41.5 Estimated GFR > 60 Random Glucose 172 H D (60-115) mg/dL Lactic Acid (0.5-2.0) mmol/L Calcium 8.8 (8.4-10.2) mg/dL Total Bilirubin 0.4 (0.0-1.0) mg/dL AST 12 (5-37) U/L ALT 9 (0-40) U/L Alkaline Phosphatase 110 (39-117) U/L Troponin I High Sens (<3.5-35.0) ng/L B-Natriuretic Peptide (<100) pg/mL Total Protein 6.6 (6.5-8.0) g/dL Albumin 3.9 (3.5-5.0) g/dL COVID-19 (ELIO) Negative (Negative) COVID-19 Clin Com See Note 08/28/22 08/28/22 08/28/22 Range/Units 16:14 17:22 17:54 WBC (4.8-10.8) X10*3/uL RBC (4.60-5.80) X10*6/uL Hgb (14.0-18.0) g/dl Hct (42.0-52.0) % MCV (80.0-98.0) fL MCH (27.0-33.0) pg MCHC (31.0-36.0) g/dl RDW (11.0-16.0) % Plt Count (160-400) X10*3/uL MPV (9.4-12.4) fL Immature Gran % (Auto) (0.0-0.4) % Neut % (Auto) (45-73) % Lymph % (Auto) (20-40) % [place] % (Auto) (2-11) % Eos % (Auto) (0-4) % Baso % (Auto) (0-2) % Lymph # (Auto) (1.2-4.9) X10*3/uL [place] # (Auto) (0.1-1.2) X10*3/uL Eos # (Auto) (0.0-0.4) X10*3/uL Baso # (Auto) (0.0-0.2) X10*3/uL Abs Immat Gran (auto) (0.00-0.03) X10*3/uL Absolute Neuts (auto) (2.0-8.3) x10*3/uL Absolute Nucleated RBC (0.0-0.012) X10*3/uL Nucleated RBC % (auto) (0.0-0.2) /100WBC Smear Tech's Comments VBG pH 7.38 (7.32-7.43) VBG pCO2 45 mmHg VBG pO2 54 mmHg VBG HCO3 27 H (22-26) mmol/L VBG O2 Saturation 80.0 % VBG Base Excess 1.8 mmol/L Sodium (135-145) mmol/L Potassium (3.3-5.1) mmol/L Chloride (96-108) mmol/L Carbon Dioxide (22-29) mmol/L Anion Gap (12-20) BUN (9-16) mg/dL Creatinine (0.5-1.4) mg/dL Estim Creat Clear Calc Estimated GFR Random Glucose (60-115) mg/dL Lactic Acid 1.5 (0.5-2.0) mmol/L Calcium (8.4-10.2) mg/dL Total Bilirubin (0.0-1.0) mg/dL AST (5-37) U/L ALT (0-40) U/L Alkaline Phosphatase (39-117) U/L Troponin I High Sens < 3.5 (<3.5-35.0) ng/L B-Natriuretic Peptide 13 (<100) pg/mL Total Protein (6.5-8.0) g/dL Albumin (3.5-5.0) g/dL COVID-19 (ELIO) (Negative) COVID-19 Clin Com Imaging Data Chest x-ray: Attestation: I personally reviewed and interpreted this imaging study as follows: Radiologist's impression: TECHNIQUE: Frontal view of the chest was obtained. FINDINGS: Lung volumes are symmetric. Redemonstrated right-sided pulmonary masses, without appreciable change from 08/10/2022. No new consolidation is seen. Redemonstrated calcified granuloma at the left base. Biapical scarring is redemonstrated. No evidence of pneumothorax or significant pleural effusion. The cardiomediastinal silhouette is stable. No acute osseous findings are seen. XR/XR chest 1V IMPRESSION: Redemonstrated right lung masses, without appreciable change from 08/10/2022. No new acute findings identified. ECG Data Attestation: I personally reviewed and interpreted this ECG as follows: ECG interpretation date: 08/28/22 ECG interpretation time: 16:08 Prior ECG tracings: available for review Interpretation: Vent. rate 90 BPM UT interval 114 ms QRS duration 82 ms QT/QTc 312/381 ms P-R-T axes 83 70 77 Normal sinus rhythm Normal ECG When compared with ECG of 10-AUG-2022 17:01, Premature ventricular complexes are no longer Present Premature atrial complexes are no longer Presen Critical Care Time Critical Care Time Critical Care Time: Yes Total Critical Care Time: 30 Attestation: I have personally provided critical care time exclusive of time spent on separately billable procedures. Time includes review of laboratory data, radiology results, discussion with consultants, and monitoring for potential decompensation. Interventions were performed as documented. Discharge Plan Discharge Clinical Impression: Acute exacerbation of chronic obstructive airways disease Patient Disposition: Admitted As Inpatient Prescriptions: No Action albuterol sulfate [Ventolin HFA] 90 mcg/actuation HFA aerosol inhaler 2 puff PO Q6H PRN (Reason: shortness of breath or wheezing) Qty: 18 3RF theophylline 400 mg tablet extended release 24 hr 400 mg PO DAILY Qty: 30 6RF prednisone 10 mg tablet 15 mg PO DAILY Qty: 45 6RF metformin 500 mg tablet 500 mg PO DAILY levothyroxine 112 mcg tablet 112 mcg PO DAILY@0600 omeprazole 20 mg capsule,delayed release(DR/EC) 20 mg PO DAILY@0630 ipratropium-albuterol 0.5 mg-3 mg(2.5 mg base)/3 mL solution for nebulization 1 vial inhalation QID PRN (Reason: asthma) mirtazapine 7.5 mg Tablet 7.5 mg PO BEDTIME PRN (Reason: Sleep) nabumetone 500 mg tablet 1 tab PO BID PRN (Reason: knee pain) duloxetine 30 mg capsule,delayed release(DR/EC) 1 cap PO DAILY montelukast 10 mg tablet 1 tab PO BEDTIME multivitamin with folic acid [Daily-Leslie (with folic acid)] 400 mcg tablet 1 tab PO DAILY Trelegy Ellipta 200-62.5-25 mcg blister with device 1 puff inhalation DAILY pyridoxine (vitamin B6) 100 mg tablet 100 mg PO DAILY 90 Days Qty: 90 1RF
[2022-08-28] MEDS: methylPREDNISolone Sod Succ 125 MG/2 ML VIAL IVPUSH (17:28)
[2022-08-28 17:29] LABS: SLIDE REVIEW VERIFIED
[2022-08-28] MEDS: 0.9 % Sodium Chloride 500 ML IV (17:41)
[2022-08-28 17:46] LABS: Lactic Acid 1.5 mmol/L (0.5-2.0)
[2022-08-28] MEDS: cefTRIAXone sodium 1 GM in 0.9 % Sodium Chloride 50 ML IV (17:52)
--- NOTE | 2022-08-28 17:53 | PHA.MEDREC ---
Pharmacy Consult ? Medication Reconciliation Pharmacy has completed the medication reconciliation.
[2022-08-28 17:57] VITALS: BP 114/64; PULSE 78; RESP 18; TEMP 36.8; O2SAT 97
[2022-08-28 17:59] LABS: Venous Blood Gas Refer to POC result
[2022-08-28 18:01] LABS: VBG Base Excess 1.8 mmol/L; VBG HCO3 27 mmol/L (22-26); VBG pCO2 45 mmHg; VBG pH 7.38 (7.32-7.43); VBG pO2 54 mmHg
[2022-08-28 19:43] VITALS: BP 119/64; PULSE 74; RESP 18; TEMP 36.5; O2SAT 96
[2022-08-28 20:23] VITALS: BP 118/54; PULSE 67; RESP 18; TEMP 36.9; O2SAT 94
[2022-08-28] MEDS: Albuterol/Iprat 2.5/0.5MG 3 ML AMPUL.NEB INHALE (20:27)
[2022-08-28] MEDS: Heparin Sodium,Porcine 5,000 UNIT/ML VIAL 5000 UNIT SUBCUT (20:41)
[2022-08-28] MEDS: Montelukast Sodium 10 MG TABLET PO (20:41)
[2022-08-28] MEDS: Insulin Lispro 100 UNIT/ML 3 ML VIAL SUBCUT (20:42)
[2022-08-28 20:46] LABS: Glucose, Whole Blood 161 mg/dL (60-115)
--- NOTE | 2022-08-28 21:07 | P.HPHOSP_ITS ---
History of Present Illness Date of Service: 08/28/22 Chief Complaint: shortness of breath this is a 76-year-old male with past medical history of COPD, asthma, diabetes, GERD, HTN, hypothyroidism, history of lung cancer, presents to the hospital with complaints of cough, sputum production, as well as increase cough for the past 2 days. Reports that he has used his inhalers at home as well as prednisone with no improvement therefore decided to come to the hospital. He denies any headache, no change in vision, he has chest pain with coughing, no abdominal pain nausea or vomiting, no diarrhea constipation, no urinary symptoms and no lower extremity edema. He has no orthopnea or PND. He denies any fever or chills. Unable to the ED patient hemodynamically stable with no significant abnormal vitals Labs are significant for WBC count of 7.2, hemoglobin of 10.8, hematocrit 36.4, otherwise unremarkable, Chest x-ray shows no new acute findings, has redemonstrated right lung masses. Patient started on breathing treatment and Solu-Medrol, stating feeling better Review of Systems Review of Systems: Yes all other systems are reviewed and are negative FOR[facility]LY [facility], [facility] Medical History Abnormal PET scan of colon Asthma Chronic respiratory failure COPD (chronic obstructive pulmonary disease) Diabetes GERD (gastroesophageal reflux disease) Hypertension Hypothyroidism Osteoarthritis Osteoporosis Oxygen dependent Sepsis Tobacco dependence Ureteral calculi Family History Father Throat cancer Brother Lung cancer Other Hypertension Surgical History History of appendectomy History of cataract surgery (~2011) History of lithotripsy (~2008) History of lung biopsy (~2021) Social History Household Members: Spouse Housing: Apartment Are you a primary youth career specialist to a significant other at home: No Do you presently have visiting nurse or other home services: No Alcohol intake: unknown Patient Tobacco Use Status: Current everyday Tobacco user Tobacco use type: Cigarette Cigarette Packs Per Day: 0.5 Years Smoked: 50 e-Cigarette/Vaping Use: Currently Using Second Hand Smoke Exposure: No Advance Directives: No Advance Directives Information Provided: Yes Advance Directives Date on File: 12/18/20 service: No Current occupational status: unemployed and retired Meds Allergies Allergy/AdvReac Type Severity Reaction Status Date / Time shellfish derived Allergy Severe ANAPHYLAXIS Verified 08/04/22 15:20 [SHELLFISH DERIVED] pollen extracts [POLLEN] Allergy Intermediate RUNNING Verified 08/04/22 15:20 NOSE, WATERY EYES, SNEEZING varenicline [VARENICLINE] AdvReac Unknown PALPITATION Verified 08/04/22 15:20 S Active Medications: Current Medications Acetaminophen (Acetaminophen 325 Mg Tablet) 650 mg PO Q6H PRN PRN Reason: Pain, Mild (Pain Scale 1-3) Albuterol/Ipratropium (Albuterol/Iprat 2.5/0.5mg 3 Ml Ampul.Neb) 3 ml INHALE RQ4H PRN PRN Reason: Shortness of Breath/Wheezing Albuterol/Ipratropium (Albuterol/Iprat 2.5/0.5mg 3 Ml Ampul.Neb) 3 ml INHALE RQ4H WHILE AWAKE FORMERLY [facility], 1928–1983 Last Admin: 08/28/22 20:27 Dose: 3 ml Dextrose (Dextrose 50 % 25 Gm/50 Ml Syringe) 25 gm IVPUSH Q15M PRN; Protocol PRN Reason: per Hypoglycemia Standing Ord. Docusate Sodium (Docusate Sodium 100 Mg Capsule) 100 mg PO DAILY PRN PRN Reason: Constipation Duloxetine HCl (Duloxetine Hcl 30 Mg Capsule.Dr) 30 mg PO DAILY MEHDI Glucose (Glucose Gel 15 Gm Gel..Gram.) 15 gm PO Q15M PRN; Protocol PRN Reason: per Hypoglycemia Standing Ord. Heparin Sodium (Porcine) (Heparin Sodium,Porcine 5,000 Unit/Ml Vial) 5,000 unit SUBCUT Q12H [facility]LY [facility], [facility]1983 Last Admin: 08/28/22 20:41 Dose: 5,000 unit Insulin Human Lispro (Insulin Lispro 100 Unit/Ml 3 Ml Vial) 0 unit SUBCUT QIDACHS [facility]LY [facility], [facility]1983; Protocol Last Admin: 08/28/22 20:42 Dose: 2 unit Levothyroxine Sodium (Levothyroxine Sodium 112 Mcg Tablet) 112 mcg PO DAILY@0600 FOR[facility]LY [facility], [facility]–1983 Methylprednisolone Sodium Succinate (Methylprednisolone Sod Succ 40 Mg/Ml Vial) 40 mg IVPUSH Q12H [facility], [facility]1983 Mirtazapine (Mirtazapine 7.5 Mg Tablet) 7.5 mg PO BEDTIME PRN PRN Reason: Sleep Montelukast Sodium (Montelukast Sodium 10 Mg Tablet) 10 mg PO BEDTIME [facility]LY [facility], [facility] Last Admin: 08/28/22 20:41 Dose: 10 mg Multivitamins/Vitamin C (Multivitamin Tablet) 1 tab PO DAILY [facility], [facility] Naproxen (Naproxen 250 Mg Tablet) 250 mg PO BID PRN PRN Reason: knee pain Omeprazole (Omeprazole 20 Mg Capsule.Dr) 20 mg PO DAILY@629 [facility], [facility]1983 Ondansetron HCl (Ondansetron Hcl 4 Mg/2 Ml Vial) 4 mg IVPUSH Q8H PRN PRN Reason: Nausea and Vomiting Pyridoxine HCl (Pyridoxine Hcl (Vitamin B6) 50 Mg Tablet) 100 mg PO DAILY [facility]LY [facility], [facility] Sodium Chloride (0.9 % Sodium Chloride Flush 3 Ml Syringe) 3 ml IVFLUSH QSHIFT FOR[facility], [facility] Theophylline (Theophylline Anhydrous Er 400 Mg Tab.Er.24h) 400 mg PO DAILY [facility], [facility] Home Medications Medication Instructions Recorded Confirmed Last Taken Type metformin 500 mg tablet 500 mg PO DAILY 09/28/20 08/28/22 08/27/22 History levothyroxine 112 mcg tablet 112 mcg PO DAILY@0600 12/01/20 08/28/22 08/28/22 History omeprazole 20 mg capsule,delayed 20 mg PO DAILY@0630 12/01/20 08/28/22 08/28/22 History release ipratropium 0.5 mg-albuterol 3 mg 1 vial inhalation QID PRN asthma 08/06/21 08/28/22 10/21/21 History (2.5 mg base)/3 mL nebulization soln mirtazapine 7.5 mg tablet 7.5 mg PO BEDTIME PRN Sleep 11/16/21 08/28/22 05/27/22 History duloxetine 30 mg capsule,delayed 1 cap PO DAILY 01/29/22 08/28/22 08/28/22 History release nabumetone 500 mg tablet 1 tab PO BID PRN knee pain 01/29/22 08/28/22 08/28/22 History montelukast 10 mg tablet 1 tab PO BEDTIME 05/28/22 08/28/22 08/27/22 History fluticasone fur. 200 mcg-umeclid 1 puff inhalation DAILY 08/28/22 08/28/2208/28/22 History 62.5 mcg-vilant 25 mcg inhalat.powder (Trelegy Ellipta) multivitamin with folic acid 400 1 tab PO DAILY 08/28/22 08/28/22 08/28/22 History mcg tablet (Daily-Leslie (with folic acid)) Physical Exam Vital Signs and Narrative: Vital Signs: Last Vital Signs Temp 98.4 F 08/28/22 20:23 Pulse 67 08/28/22 20:23 Resp 18 08/28/22 20:23 BP 118/54 L 08/28/22 20:23 Pulse Ox 94 08/28/22 20:23 O2 Del Method 08/28/22 20:23 BMI result Body Mass Index 18.3 Resp: Other: diminished breath sounds crackles bilaterally Results Labs CBC and Chem 7: 08/28/22 16:14 08/28/22 16:14 Labs: Laboratory Results - last 24 hr 08/28/22 08/28/22 08/28/22 16:14 16:14 16:14 MCV 78.3 L MCH 23.2 L MCHC 29.7 L RDW 17.3 H Plt Count 366 MPV 9.5 Immature Gran % (Auto) 0.3 Neut % (Auto) 92.1 H Lymph % (Auto) 5.2 L [place] % (Auto) 1.8 L Eos % (Auto) 0.3 Baso % (Auto) 0.3 Lymph # (Auto) 0.4 L [place] # (Auto) 0.1 Eos # (Auto) 0.0 Baso # (Auto) 0.0 Abs Immat Gran (auto) 0.02 Absolute Neuts (auto) 6.6 Absolute Nucleated RBC 0.000 Nucleated RBC % (auto) 0.0 Smear Tech's Comments VERIFIED VBG pH VBG pCO2 VBG pO2 VBG HCO3 VBG O2 Saturation VBG Base Excess Anion Gap 17 Estim Creat Clear Calc 41.5 Estimated GFR > 60 POC Glucose Random Glucose 172 H D Lactic Acid Calcium 8.8 Total Bilirubin 0.4 AST 12 ALT 9 Alkaline Phosphatase 110 Troponin I High Sens B-Natriuretic Peptide Total Protein 6.6 Albumin 3.9 COVID-19 (ELIO) Negative COVID-19 Clin Com See Note 08/28/22 08/28/22 08/28/22 16:14 17:22 17:54 MCV MCH MCHC RDW Plt Count MPV Immature Gran % (Auto) Neut % (Auto) Lymph % (Auto) [place] % (Auto) Eos % (Auto) Baso % (Auto) Lymph # (Auto) [place] # (Auto) Eos # (Auto) Baso # (Auto) Abs Immat Gran (auto) Absolute Neuts (auto) Absolute Nucleated RBC Nucleated RBC % (auto) Smear Tech's Comments VBG pH 7.38 VBG pCO2 45 VBG pO2 54 VBG HCO3 27 H VBG O2 Saturation 80.0 VBG Base Excess 1.8 Anion Gap Estim Creat Clear Calc Estimated GFR POC Glucose Random Glucose Lactic Acid 1.5 Calcium Total Bilirubin AST ALT Alkaline Phosphatase Troponin I High Sens < 3.5 B-Natriuretic Peptide 13 Total Protein Albumin COVID-19 (ELIO) arGEN-X 08/28/22 20:31 MCV MCH MCHC RDW Plt Count MPV Immature Gran % (Auto) Neut % (Auto) Lymph % (Auto) [place] % (Auto) Eos % (Auto) Baso % (Auto) Lymph # (Auto) [place] # (Auto) Eos # (Auto) Baso # (Auto) Abs Immat Gran (auto) Absolute Neuts (auto) Absolute Nucleated RBC Nucleated RBC % (auto) Smear Tech's Comments VBG pH VBG pCO2 VBG pO2 VBG HCO3 VBG O2 Saturation VBG Base Excess Anion Gap Estim Creat Clear Calc Estimated GFR POC Glucose 161 H Random Glucose Lactic Acid Calcium Total Bilirubin AST ALT Alkaline Phosphatase Troponin I High Sens B-Natriuretic Peptide Total Protein Albumin COVID-19 (ELIO) [employer] Imaging Radiologist's Impressions: Impressions Chest X-Ray 08/28/22 16:28 IMPRESSION: Redemonstrated right lung masses, without appreciable change from 08/10/2022. No new acute findings identified. Assessment and Plan (1) Acute exacerbation of chronic obstructive airways disease: Status: Acute Plan 76-year-old male with past medical history of COPD/ asthma presents to the hospital with increased cough, sputum production, as well as dyspnea found to have COPD exacerbation # acute COPD exacerbation - treat with Solu-Medrol, DuoNeb p.r.n. as well as scheduled - failed outpatient therapy with p.o. prednisone - no evidence of pneumonia, or any other acute findings on chest x-ray, has prior history of lung cancer - monitor respiratory status # diabetes - low-dose sliding scale insulin - diabetic diet DVT prophylaxis: Heparin subQ Pt will require a minimum 2 night hospital stay for IV Solu-Medrol, as well as breathing treatments given he failed outpatient therapy Quality Stroke Does the patient have a stroke diagnosis?: No VTE Prior VTE?: No VTE Risk Level:: Medical - moderate - high VTE Device Contraindication: Treatment Not Indicated VTE Drug Contraindication: N/A - Med Ordered
[2022-08-28 23:50] VITALS: BP 145/63; PULSE 66; RESP 18; TEMP 36.6; O2SAT 95
[2022-08-29] VITALS (11 sets, daily range): BP systolic 122–138; BP diastolic 57–88; PULSE 60–96; RESP 16–75; TEMP 36.1–37.1; O2SAT 94–98
--- NOTE | 2022-08-29 00:37 | PC.NURSE ---
pt resting comfortably on stretcher. respirations even and unlabored. no apparent distress. on equipment monitor phototypesetting. using urinal at bedside - will continue to monitor.
[2022-08-29] MEDS: Omeprazole 20 MG CAPSULE.DR PO (05:45)
[2022-08-29] MEDS: Levothyroxine Sodium 112 MCG TABLET PO (05:45)
[2022-08-29] MEDS: methylPREDNISolone Sod Succ 40 MG/ML VIAL IVPUSH ×2 (05:45→17:15)
[2022-08-29 06:52] LABS: Basophils Percent Auto 0.3 % (0-2); Hematocrit 32.8 % (42.0-52.0); Hemoglobin 9.9 g/dl (14.0-18.0); Imm Gran Abs Auto 0.02 X10*3/uL (0.00-0.03); Imm Gran Pct Auto 0.5 % (0.0-0.4); Lymphocytes Absolute Auto 0.4 X10*3/uL (1.2-4.9); MANUAL DIFF FLAG SCAN; Mean Corpuscular HGB Conc 30.2 g/dl (31.0-36.0); Mean Corpuscular Hemoglobin 23.5 pg (27.0-33.0); Mean Corpuscular Volume 77.9 fL (80.0-98.0); Mean Platelet Volume 10.2 fL (9.4-12.4); Monocytes Absolute Auto 0.1 X10*3/uL (0.1-1.2); Neutrophils Absolute Auto 3.5 x10*3/uL (2.0-8.3); Neutrophils Percent Auto 86.2 % (45-73); Platelet Count 298 X10*3/uL (160-400); Red Blood Count 4.21 X10*6/uL (4.60-5.80); Red Cell Distribution Width 17.1 % (11.0-16.0); SCAN SMEAR FLAG 1
[2022-08-29 06:58] LABS: Anion Gap 17 (12-20); Blood Urea Nitrogen 12 mg/dL (9-16); Calcium 8.4 mg/dL (8.4-10.2); Carbon Dioxide 21 mmol/L (22-29); Chloride 106 mmol/L (96-108); Creatinine Clr Calc Pharmacy 56.4; Estimated Glomerular Filt Rate > 60; Glucose Random 190 mg/dL (60-115); Sodium 139 mmol/L (135-145)
[2022-08-29 07:26] LABS: Glucose, Whole Blood 169 mg/dL (60-115)
[2022-08-29 08:02] LABS: SLIDE REVIEW VERIFIED
[2022-08-29] MEDS: Albuterol/Iprat 2.5/0.5MG 3 ML AMPUL.NEB INHALE ×4 (08:04→19:43)
[2022-08-29] MEDS: Insulin Lispro 100 UNIT/ML 3 ML VIAL SUBCUT ×3 (09:55→21:31)
[2022-08-29] MEDS: Heparin Sodium,Porcine 5,000 UNIT/ML VIAL 5000 UNIT SUBCUT ×2 (09:55→21:31)
[2022-08-29] MEDS: 0.9 % Sodium Chloride Flush 3 ML SYRINGE IVFLUSH ×2 (09:56→21:32)
[2022-08-29] MEDS: Pyridoxine HCl (Vitamin B6) 50 MG TABLET 100 MG PO (09:56)
[2022-08-29] MEDS: Multivitamin TABLET 1 TAB PO (10:03)
[2022-08-29] MEDS: Theophylline Anhydrous ER 400 MG TAB.ER.24H PO (11:21)
[2022-08-29] MEDS: DULoxetine HCl 30 MG CAPSULE.DR PO (11:21)
[2022-08-29 11:27] LABS: Glucose, Whole Blood 143 mg/dL (60-115)
--- NOTE | 2022-08-29 13:20 | MHC.CM.PN ---
w/casino accountant met with pt ,pt lives with his sophie fall x 3 they had no servcies priro to pts admission and does not anticipate needing services when dcd pt is on home 02
--- NOTE | 2022-08-29 15:24 | HO.PM.IMPN ---
Subjective Subjective Date of Service: 08/29/22 Interval History: Notes improvement overnight in breathing. Review of Systems Denies chest pain Admit shortness of breath is improved Denies nausea vomiting diarrhea Denies fever chills Physical Exam Vital Signs: Vital Signs: Last Vital Signs Temp 98.8 F 08/29/22 15:21 Pulse 70 08/29/22 15:21 Resp 18 08/29/22 15:21 BP 134/57 L 08/29/22 15:21 Pulse Ox 94 08/29/22 15:21 O2 Del Method 08/29/22 15:21 BMI result Body Mass Index 18.3 Const: Other: No acute distress Resp: Other: Diminished throughout with scattered expiratory wheezes and coarse rhonchi that clear with cough Cardio: Other: No S4; positive S1-S2; no S3 murmurs rubs or gallops GI: Other: Soft nontender nondistended normoactive bowel sounds Extrem: Other: No edema bilaterally Objective Data Active Medications Acetaminophen (Acetaminophen 325 Mg Tablet) 650 mg PO Q6H PRN PRN Reason: Pain, Mild (Pain Scale 1-3) Albuterol/Ipratropium (Albuterol/Iprat 2.5/0.5mg 3 Ml Ampul.Neb) 3 ml INHALE RQ4H PRN PRN Reason: Shortness of Breath/Wheezing Albuterol/Ipratropium (Albuterol/Iprat 2.5/0.5mg 3 Ml Ampul.Neb) 3 ml INHALE RQ4H WHILE AWAKE [facility] Last Admin: 08/29/22 15:24 Dose: 3 ml Documented By: AMINATA Dextrose (Dextrose 50 % 25 Gm/50 Ml Syringe) 25 gm IVPUSH Q15M PRN; Protocol PRN Reason: per Hypoglycemia Standing Ord. Docusate Sodium (Docusate Sodium 100 Mg Capsule) 100 mg PO DAILY PRN PRN Reason: Constipation Duloxetine HCl (Duloxetine Hcl 30 Mg Capsule.Dr) 30 mg PO DAILY [facility] Last Admin: 08/29/22 11:21 Dose: 30 mg Documented By: JESSY Glucose (Glucose Gel 15 Gm Gel..Gram.) 15 gm PO Q15M PRN; Protocol PRN Reason: per Hypoglycemia Standing Ord. Heparin Sodium (Porcine) (Heparin Sodium,Porcine 5,000 Unit/Ml Vial) 5,000 unit SUBCUT Q12H [facility] Last Admin: 08/29/22 09:55 Dose: 5,000 unit Documented By: JESSY Insulin Human Lispro (Insulin Lispro 100 Unit/Ml 3 Ml Vial) 0 unit SUBCUT QIDACHS [facility]; Protocol Last Admin: 08/29/22 11:36 Dose: Not Given Documented By: JESSY Non-Admin Reason: No Insulin Coverage Levothyroxine Sodium (Levothyroxine Sodium 112 Mcg Tablet) 112 mcg PO DAILY@0600 [facility] Last Admin: 08/29/22 05:45 Dose: 112 mcg Documented By: KATIA Methylprednisolone Sodium Succinate (Methylprednisolone Sod Succ 40 Mg/Ml Vial) 40 mg IVPUSH Q12H [facility] Last Admin: 08/29/22 05:45 Dose: 40 mg Documented By: KATIA Mirtazapine (Mirtazapine 7.5 Mg Tablet) 7.5 mg PO BEDTIME PRN PRN Reason: Sleep Montelukast Sodium (Montelukast Sodium 10 Mg Tablet) 10 mg PO BEDTIME [facility] Last Admin: 08/28/22 20:41 Dose: 10 mg Documented By: LOBITO Multivitamins/Vitamin C (Multivitamin Tablet) 1 tab PO DAILY [facility] Last Admin: 08/29/22 10:03 Dose: 1 tab Documented By: JESSY Naproxen (Naproxen 250 Mg Tablet) 250 mg PO BID PRN PRN Reason: knee pain Omeprazole (Omeprazole 20 Mg Capsule.Dr) 20 mg PO DAILY@0630 [facility] Last Admin: 08/29/22 05:45 Dose: 20 mg Documented By: KATIA Ondansetron HCl (Ondansetron Hcl 4 Mg/2 Ml Vial) 4 mg IVPUSH Q8H PRN PRN Reason: Nausea and Vomiting Pyridoxine HCl (Pyridoxine Hcl (Vitamin B6) 50 Mg Tablet) 100 mg PO DAILY [facility] Last Admin: 08/29/22 09:56 Dose: 100 mg Documented By: JESSY Sodium Chloride (0.9 % Sodium Chloride Flush 3 Ml Syringe) 3 ml IVFLUSH QSHIFT [facility] Last Admin: 08/29/22 09:56 Dose: 3 ml Documented By: JESSY Theophylline (Theophylline Anhydrous Er 400 Mg Tab.Er.24h) 400 mg PO DAILY [facility] Last Admin: 08/29/22 11:21 Dose: 400 mg Documented By: JESSY Labs CBC & Chem 7: 08/29/22 06:22 08/29/22 06:22 Labs: Laboratory Results - last 24 hr 08/28/22 08/28/22 08/28/22 16:14 16:14 16:14 MCV 78.3 L MCH 23.2 L MCHC 29.7 L RDW 17.3 H Plt Count 366 MPV 9.5 Immature Gran % (Auto) 0.3 Neut % (Auto) 92.1 H Lymph % (Auto) 5.2 L [place] % (Auto) 1.8 L Eos % (Auto) 0.3 Baso % (Auto) 0.3 Lymph # (Auto) 0.4 L [place] # (Auto) 0.1 Eos # (Auto) 0.0 Baso # (Auto) 0.0 Abs Immat Gran (auto) 0.02 Absolute Neuts (auto) 6.6 Absolute Nucleated RBC 0.000 Nucleated RBC % (auto) 0.0 Smear Tech's Comments VERIFIED VBG pH VBG pCO2 VBG pO2 VBG HCO3 VBG O2 Saturation VBG Base Excess Anion Gap 17 Estim Creat Clear Calc 41.5 Estimated GFR > 60 POC Glucose Random Glucose 172 H D Lactic Acid Calcium 8.8 Total Bilirubin 0.4 AST 12 ALT 9 Alkaline Phosphatase 110 Troponin I High Sens B-Natriuretic Peptide Total Protein 6.6 Albumin 3.9 COVID-19 (ELIO) Negative COVID-19 Clin Com See Note 08/28/22 08/28/22 08/28/22 16:14 17:22 17:54 MCV MCH MCHC RDW Plt Count MPV Immature Gran % (Auto) Neut % (Auto) Lymph % (Auto) [place] % (Auto) Eos % (Auto) Baso % (Auto) Lymph # (Auto) [place] # (Auto) Eos # (Auto) Baso # (Auto) Abs Immat Gran (auto) Absolute Neuts (auto) Absolute Nucleated RBC Nucleated RBC % (auto) Smear Tech's Comments VBG pH 7.38 VBG pCO2 45 VBG pO2 54 VBG HCO3 27 H VBG O2 Saturation 80.0 VBG Base Excess 1.8 Anion Gap Estim Creat Clear Calc Estimated GFR POC Glucose Random Glucose Lactic Acid 1.5 Calcium Total Bilirubin AST ALT Alkaline Phosphatase Troponin I High Sens < 3.5 B-Natriuretic Peptide 13 Total Protein Albumin COVID-19 (ELIO) COVID-19 [facility] 08/28/22 08/29/22 08/29/22 20:31 06:22 06:22 MCV 77.9 L MCH 23.5 L MCHC 30.2 L RDW 17.1 H Plt Count 298 MPV 10.2 Immature Gran % (Auto) 0.5 H Neut % (Auto) 86.2 H Lymph % (Auto) 11.0 L [place] % (Auto) 2.0 Eos % (Auto) 0.0 Baso % (Auto) 0.3 Lymph # (Auto) 0.4 L [place] # (Auto) 0.1 Eos # (Auto) 0.0 Baso # (Auto) 0.0 Abs Immat Gran (auto) 0.02 Absolute Neuts (auto) 3.5 Absolute Nucleated RBC 0.000 Nucleated RBC % (auto) 0.0 Smear Tech's Comments VERIFIED VBG pH VBG pCO2 VBG pO2 VBG HCO3 VBG O2 Saturation VBG Base Excess Anion Gap 17 Estim Creat Clear Calc 56.4 Estimated GFR > 60 POC Glucose 161 H Random Glucose 190 H Lactic Acid Calcium 8.4 Total Bilirubin AST ALT Alkaline Phosphatase Troponin I High Sens B-Natriuretic Peptide Total Protein Albumin COVID-19 (ELIO) COVID-[employer] 08/29/22 08/29/22 07:20 11:16 MCV MCH MCHC RDW Plt Count MPV Immature Gran % (Auto) Neut % (Auto) Lymph % (Auto) [place] % (Auto) Eos % (Auto) Baso % (Auto) Lymph # (Auto) [place] # (Auto) Eos # (Auto) Baso # (Auto) Abs Immat Gran (auto) Absolute Neuts (auto) Absolute Nucleated RBC Nucleated RBC % (auto) Smear Tech's Comments VBG pH VBG pCO2 VBG pO2 VBG HCO3 VBG O2 Saturation VBG Base Excess Anion Gap Estim Creat Clear Calc Estimated GFR POC Glucose 169 H 143 H Random Glucose Lactic Acid Calcium Total Bilirubin AST ALT Alkaline Phosphatase Troponin I High Sens B-Natriuretic Peptide Total Protein Albumin COVID-19 (ELIO) COVID-19 [facility] Assessment and Plan (1) Acute exacerbation of chronic obstructive airways disease: Status: Acute (2) Diabetes: Status: Acute Plan 76-year-old male with past medical history of COPD/ asthma presents to the hospital with increased cough, sputum production, as well as dyspnea found to have COPD exacerbation 1.Acute COPD exacerbation -Solu-Medrol/DuoNebs p.r.n. as well as scheduled -titrate O2 to maintain sats greater than equal to 90 % -given the lack of sputum production will hold on antibiotics at this time 2.Diabetes Type II -acceptable control on current therapies -lispro correctional scale -diabetic diet DVT prophylaxis: Heparin subQ Patient require ongoing hospitalization for IV steroids given failure of outpatient oral dosing. Will also require O2 titration Quality Stroke Does the patient have a stroke diagnosis?: No VTE Prior VTE?: No VTE Risk Level:: Medical - moderate - high VTE Device Contraindication: Treatment Not Indicated VTE Drug Contraindication: N/A - Med Ordered
[2022-08-29] MEDS: Acetaminophen 325 MG TABLET 650 MG PO (17:23)
[2022-08-29 17:25] LABS: Glucose, Whole Blood 172 mg/dL (60-115)
--- NOTE | 2022-08-29 19:57 | PC.NURSE ---
Report to Cat LEAHY pt will transfer once neb finished
[2022-08-29 20:57] LABS: Glucose, Whole Blood 265 mg/dL (60-115)
[2022-08-29] MEDS: Montelukast Sodium 10 MG TABLET PO (21:31)
[2022-08-30] VITALS (11 sets, daily range): BP systolic 114–156; BP diastolic 56–72; PULSE 62–105; RESP 12–18; TEMP 36.4–37.3; O2SAT 85–99
[2022-08-30] MEDS: Levothyroxine Sodium 112 MCG TABLET PO (05:27)
[2022-08-30] MEDS: Omeprazole 20 MG CAPSULE.DR PO (05:27)
[2022-08-30] MEDS: methylPREDNISolone Sod Succ 40 MG/ML VIAL IVPUSH (05:27)
[2022-08-30 07:19] LABS: Glucose, Whole Blood 152 mg/dL (60-115)
[2022-08-30] MEDS: Albuterol/Iprat 2.5/0.5MG 3 ML AMPUL.NEB INHALE ×4 (07:37→20:22)
[2022-08-30] MEDS: Heparin Sodium,Porcine 5,000 UNIT/ML VIAL 5000 UNIT SUBCUT ×2 (08:16→21:06)
[2022-08-30] MEDS: DULoxetine HCl 30 MG CAPSULE.DR PO (08:16)
[2022-08-30] MEDS: 0.9 % Sodium Chloride Flush 3 ML SYRINGE IVFLUSH ×2 (08:16→21:07)
[2022-08-30] MEDS: Insulin Lispro 100 UNIT/ML 3 ML VIAL SUBCUT ×4 (08:17→21:06)
[2022-08-30] MEDS: Pyridoxine HCl (Vitamin B6) 50 MG TABLET 100 MG PO (08:17)
[2022-08-30] MEDS: Theophylline Anhydrous ER 400 MG TAB.ER.24H PO (08:18)
[2022-08-30] MEDS: Multivitamin TABLET 1 TAB PO (08:18)
--- NOTE | 2022-08-30 10:27 | PC.NURSE ---
Patient [employer] reported patient o2 sat 85% this morning, went and re-checked o2 sat it went up to 88% when asked patient to take a few deep breaths. Put 2L o2 NC sat went up to 95-96%. aware.
[2022-08-30 11:27] LABS: Glucose, Whole Blood 199 mg/dL (60-115)
[2022-08-30] MEDS: cefTRIAXone sodium 1 GM in 0.9 % Sodium Chloride 50 ML IV (11:43)
[2022-08-30] MEDS: methylPREDNISolone Sod Succ 125 MG/2 ML VIAL 60 MG IVPUSH ×3 (11:45→23:23)
[2022-08-30] MEDS: Azithromycin 500 MG TABLET PO (11:46)
--- NOTE | 2022-08-30 12:43 | P.PNIM_ITS ---
Subjective Subjective Date of Service: 08/30/22 Interval History: Minimal improvement overnight. No acute issues Review of Systems Denies chest pain Admit shortness of breath is improved Denies nausea vomiting diarrhea Denies fever chills Physical Exam Vital Signs: Vital Signs: Last Vital Signs Temp 98.6 F 08/30/22 11:43 Pulse 74 08/30/22 11:43 Resp 16 08/30/22 11:43 BP 144/63 H 08/30/22 11:43 Pulse Ox 99 08/30/22 11:43 O2 Del Method 08/30/22 11:43 O2 Flow Rate 2 08/30/22 11:43 BMI result Body Mass Index 18.3 Const: Other: No acute distress Resp: Other: Diminished throughout with scattered expiratory wheezes and coarse rhonchi that clear with cough Cardio: Other: No S4; positive S1-S2; no S3 murmurs rubs or gallops GI: Other: Soft nontender nondistended normoactive bowel sounds Extrem: Other: No edema bilaterally Objective Data Active Medications Acetaminophen (Acetaminophen 325 Mg Tablet) 650 mg PO Q6H PRN PRN Reason: Pain, Mild (Pain Scale 1-3) Last Admin: 08/29/22 17:23 Dose: 650 mg Documented By: JESSY Albuterol/Ipratropium (Albuterol/Iprat 2.5/0.5mg 3 Ml Ampul.Neb) 3 ml INHALE RQ4H PRN PRN Reason: Shortness of Breath/Wheezing Albuterol/Ipratropium (Albuterol/Iprat 2.5/0.5mg 3 Ml Ampul.Neb) 3 ml INHALE RQ4H WHILE AWAKE [facility] Last Admin: 08/30/22 11:22 Dose: 3 ml Documented By: NATHALY Azithromycin (Azithromycin 500 Mg Tablet) 500 mg PO Q24H [facility] Stop: 09/01/22 10:16 Last Admin: 08/30/22 11:46 Dose: 500 mg Documented By: GEO Dextrose (Dextrose 50 % 25 Gm/50 Ml Syringe) 25 gm IVPUSH Q15M PRN; Protocol PRN Reason: per Hypoglycemia Standing Ord. Docusate Sodium (Docusate Sodium 100 Mg Capsule) 100 mg PO DAILY PRN PRN Reason: Constipation Duloxetine HCl (Duloxetine Hcl 30 Mg Capsule.Dr) 30 mg PO DAILY [facility] Last Admin: 08/30/22 08:16 Dose: 30 mg Documented By: GEO Glucose (Glucose Gel 15 Gm Gel..Gram.) 15 gm PO Q15M PRN; Protocol PRN Reason: per Hypoglycemia Standing Ord. Heparin Sodium (Porcine) (Heparin Sodium,Porcine 5,000 Unit/Ml Vial) 5,000 unit SUBCUT Q12H [facility] Last Admin: 08/30/22 08:16 Dose: 5,000 unit Documented By: GEO Ceftriaxone Sodium 1 gm/ (Sodium Chloride) 50 mls @ 100 mls/hr IV Q24H [facility] Last Infusion: 08/30/22 12:14 Dose: 0 mls/hr Documented By: GEO Insulin Human Lispro (Insulin Lispro 100 Unit/Ml 3 Ml Vial) 0 unit SUBCUT QIDACHS [facility]; Protocol Last Admin: 08/30/22 08:17 Dose: 2 unit Documented By: GEO Levothyroxine Sodium (Levothyroxine Sodium 112 Mcg Tablet) 112 mcg PO DAILY@0600 [facility] Last Admin: 08/30/22 05:27 Dose: 112 mcg Documented By: LOUISE Methylprednisolone Sodium Succinate (Methylprednisolone Sod Succ 125 Mg/2 Ml Vial) 60 mg IVPUSH Q6H [facility] Last Admin: 08/30/22 11:45 Dose: 60 mg Documented By: GEO Mirtazapine (Mirtazapine 7.5 Mg Tablet) 7.5 mg PO BEDTIME PRN PRN Reason: Sleep Montelukast Sodium (Montelukast Sodium 10 Mg Tablet) 10 mg PO BEDTIME [facility] Last Admin: 08/29/22 21:31 Dose: 10 mg Documented By: LOUISE Multivitamins/Vitamin C (Multivitamin Tablet) 1 tab PO DAILY [facility] Last Admin: 08/30/22 08:18 Dose: 1 tab Documented By: GEO Naproxen (Naproxen 250 Mg Tablet) 250 mg PO BID PRN PRN Reason: knee pain Omeprazole (Omeprazole 20 Mg Capsule.) 20 mg PO DAILY@0630 [facility] Last Admin: 08/30/22 05:27 Dose: 20 mg Documented By: LOUISE Ondansetron HCl (Ondansetron Hcl 4 Mg/2 Ml Vial) 4 mg IVPUSH Q8H PRN PRN Reason: Nausea and Vomiting Pyridoxine HCl (Pyridoxine Hcl (Vitamin B6) 50 Mg Tablet) 100 mg PO DAILY [facility] Last Admin: 08/30/22 08:17 Dose: 100 mg Documented By: GEO Sodium Chloride (0.9 % Sodium Chloride Flush 3 Ml Syringe) 3 ml IVFLUSH QSHIFT [facility] Last Admin: 08/30/22 08:16 Dose: 3 ml Documented By: GEO Theophylline (Theophylline Anhydrous Er 400 Mg Tab.Er.24h) 400 mg PO DAILY [facility] Last Admin: 08/30/22 08:18 Dose: 400 mg Documented By: GEO Labs CBC & Chem 7: 08/29/22 06:22 08/29/22 06:22 Labs: Laboratory Results - last 24 hr 08/29/22 08/29/22 08/30/22 17:21 20:54 07:14 POC Glucose 172 H 265 H 152 H 08/30/22 11:17 POC Glucose 199 H Microbiology Microbiology Results: Microbiology 08/28/22 17:47 Blood Culture - Preliminary Blood - Venous No growth after 24 hours. 08/28/22 17:22 Blood Culture - Preliminary Blood - Venous No growth after 24 hours. Assessment and Plan (1) Acute exacerbation of chronic obstructive airways disease: Status: Acute (2) Diabetes: Status: Acute Plan 76-year-old male with past medical history of COPD/ asthma presents to the hospital with increased cough, sputum production, as well as dyspnea found to have COPD exacerbation 1.Acute COPD exacerbation -Solu-Medrol/DuoNebs p.r.n. as well as scheduled -titrate O2 to maintain sats greater than equal to 90 % -given limited progress; will add ceftriaxone azithromycin and increased Solu- Medrol to 60 mg q.6 2.Diabetes Type II -acceptable control on current therapies -lispro correctional scale -diabetic diet DVT prophylaxis: Heparin subQ Patient require ongoing hospitalization for IV steroids given failure of ou tpatient oral dosing. Will also require O2 titration Quality Stroke Does the patient have a stroke diagnosis?: No VTE Prior VTE?: No VTE Risk Level:: Medical - moderate - high VTE Device Contraindication: Treatment Not Indicated VTE Drug Contraindication: N/A - Med Ordered
[2022-08-30 16:47] LABS: Glucose, Whole Blood 293 mg/dL (60-115)
[2022-08-30 19:56] LABS: Glucose, Whole Blood 256 mg/dL (60-115)
[2022-08-30] MEDS: Montelukast Sodium 10 MG TABLET PO (21:06)
[2022-08-31] VITALS (8 sets, daily range): BP systolic 119–151; BP diastolic 54–69; PULSE 58–98; RESP 18–20; TEMP 36.7–37.3; O2SAT 94–99; BMI 18.3
[2022-08-31] MEDS: methylPREDNISolone Sod Succ 125 MG/2 ML VIAL 60 MG IVPUSH ×4 (06:02→23:29)
[2022-08-31] MEDS: Omeprazole 20 MG CAPSULE.DR PO (06:03)
[2022-08-31] MEDS: Levothyroxine Sodium 112 MCG TABLET PO (06:03)
[2022-08-31 06:44] LABS: Basophils Percent Auto 0.1 % (0-2); Hematocrit 31.3 % (42.0-52.0); Hemoglobin 9.6 g/dl (14.0-18.0); Imm Gran Pct Auto 0.9 % (0.0-0.4); Lymphocytes Absolute Auto 0.3 X10*3/uL (1.2-4.9); Lymphocytes Percent Auto 2.7 % (20-40); MANUAL DIFF FLAG SCAN; Mean Corpuscular HGB Conc 30.7 g/dl (31.0-36.0); Mean Corpuscular Hemoglobin 23.6 pg (27.0-33.0); Mean Corpuscular Volume 77.1 fL (80.0-98.0); Mean Platelet Volume 10.4 fL (9.4-12.4); Monocytes Absolute Auto 0.2 X10*3/uL (0.1-1.2); Monocytes Percent Auto 1.7 % (2-11); Neutrophils Absolute Auto 10.6 x10*3/uL (2.0-8.3); Neutrophils Percent Auto 94.6 % (45-73); Platelet Count 369 X10*3/uL (160-400); Red Blood Count 4.06 X10*6/uL (4.60-5.80); Red Cell Distribution Width 17.2 % (11.0-16.0); SCAN SMEAR FLAG 1; White Blood Count 11.2 X10*3/uL (4.8-10.8)
[2022-08-31 07:15] LABS: Glucose, Whole Blood 255 mg/dL (60-115)
[2022-08-31 07:17] LABS: Alanine Aminotransferase 12 U/L (0-40); Albumin Level 3.6 g/dL (3.5-5.0); Alkaline Phosphatase 88 U/L (39-117); Anion Gap 16 (12-20); Aspartate Amino Transferase 12 U/L (5-37); Bilirubin Total 0.2 mg/dL (0.0-1.0); Blood Urea Nitrogen 15 mg/dL (9-16); Calcium 8.5 mg/dL (8.4-10.2); Carbon Dioxide 28 mmol/L (22-29); Chloride 101 mmol/L (96-108); Creatinine Clr Calc Pharmacy 59.3; Estimated Glomerular Filt Rate > 60; Glucose Fasting 177 mg/dL (60-99); Potassium 4.6 mmol/L (3.3-5.1); Sodium 140 mmol/L (135-145); Total Protein 5.9 g/dL (6.5-8.0)
[2022-08-31] MEDS: Albuterol/Iprat 2.5/0.5MG 3 ML AMPUL.NEB INHALE ×2 (07:23→11:51)
[2022-08-31 08:00] LABS: SLIDE REVIEW VERIFIED
[2022-08-31] MEDS: Heparin Sodium,Porcine 5,000 UNIT/ML VIAL 5000 UNIT SUBCUT ×2 (08:22→21:08)
[2022-08-31] MEDS: Insulin Lispro 100 UNIT/ML 3 ML VIAL SUBCUT ×3 (08:24→21:08)
[2022-08-31] MEDS: Azithromycin 500 MG TABLET PO (08:27)
[2022-08-31] MEDS: Pyridoxine HCl (Vitamin B6) 50 MG TABLET 100 MG PO (08:27)
[2022-08-31] MEDS: Multivitamin TABLET 1 TAB PO (08:27)
[2022-08-31] MEDS: Theophylline Anhydrous ER 400 MG TAB.ER.24H PO (08:27)
[2022-08-31] MEDS: DULoxetine HCl 30 MG CAPSULE.DR PO (08:27)
[2022-08-31] MEDS: 0.9 % Sodium Chloride Flush 3 ML SYRINGE IVFLUSH ×3 (08:33→23:31)
--- NOTE | 2022-08-31 08:56 | P.CDIC_ITS ---
CDI Concurrent Query Documentation Clarification: PHYSICIAN'S DOCUMENTATION REQUEST Date of Query: 08/31/22 0857 Patient Name: Raudel Finnegan Admit Date: 08/28/22 Dear Doctor, Please review the following and provide your response in the progress notes. Clinical Indicators: The diagnosis of asthma was documented in the record on 08/28/22 . Additional clinical indicators from the record include: Risk Factors/Clinical Indicators/Treatments Per ED note: wheeze On inhaler Based on the above, please clarify in the Progress Notes further specificity regarding the type and acuity of the asthma: Type: * Mild intermittent - less than 2x/week * Mild persistent - more than 2x/week but not daily * Moderate persistent - daily and may restrict physical activity * Severe persistent - throughout the day with frequent attacks, limiting activities * Exercise induced * Other ? please specify * Unable to determine Acuity: * With acute exacerbation * With status asthmaticus * Uncomplicated * Unable to determine Use of terms such as suspected, likely, concern for, or probable (associated with a specific diagnosis that is being evaluated, monitored, or treated as if it exists) are acceptable and can be coded in the inpatient setting, when documented at the time of discharge. Thank you, Inna Aragon RN Extension: [phone] Please use your independent medical judgment in providing your response. THIS QUERY IS PART OF THE PERMANENT MEDICAL RECORD Provider Response: Other Other Diagnosis: Mild intermittent with acute exacerbation
--- NOTE | 2022-08-31 08:56 | MHC.CDI.CONC ---
CDI Concurrent Query Documentation Clarification: PHYSICIAN'S DOCUMENTATION REQUEST Date of Query: 08/31/22 0857 Patient Name: Raudel Finnegan Admit Date: 08/28/22 Dear Doctor, Please review the following and provide your response in the progress notes. Clinical Indicators: The diagnosis of asthma was documented in the record on 08/28/22 . Additional clinical indicators from the record include: Risk Factors/Clinical Indicators/Treatments Per ED note: wheeze On inhaler Based on the above, please clarify in the Progress Notes further specificity regarding the type and acuity of the asthma: Type: Mild intermittent - less than 2x/week Mild persistent - more than 2x/week but not daily Moderate persistent - daily and may restrict physical activity Severe persistent - throughout the day with frequent attacks, limiting activities Exercise induced Other ? please specify Unable to determine Acuity: With acute exacerbation With status asthmaticus Uncomplicated Unable to determine Use of terms such as suspected, likely, concern for, or probable (associated with a specific diagnosis that is being evaluated, monitored, or treated as if it exists) are acceptable and can be coded in the inpatient setting, when documented at the time of discharge. Thank you, Inna Aragon RN Extension: [phone] Please use your independent medical judgment in providing your response. THIS QUERY IS PART OF THE PERMANENT MEDICAL RECORD Provider Response: Other Other Diagnosis: Mild intermittent with acute exacerbation
[2022-08-31 11:08] LABS: Glucose, Whole Blood 146 mg/dL (60-115)
[2022-08-31] MEDS: cefTRIAXone sodium 1 GM in 0.9 % Sodium Chloride 50 ML IV (12:31)
--- NOTE | 2022-08-31 15:22 | MHC.CM.PN ---
per rounds pt may be dcd today with continuing on home 02
[2022-08-31 20:09] LABS: Glucose, Whole Blood 209 mg/dL (60-115)
[2022-08-31 20:09] LABS: Glucose, Whole Blood 282 mg/dL (60-115)
[2022-08-31] MEDS: Montelukast Sodium 10 MG TABLET PO (21:08)
[2022-09-01 04:00] VITALS: BP 122/98; PULSE 85; RESP 18; TEMP 36.8; O2SAT 94
[2022-09-01] MEDS: methylPREDNISolone Sod Succ 125 MG/2 ML VIAL 60 MG IVPUSH ×2 (06:18→11:36)
[2022-09-01] MEDS: Omeprazole 20 MG CAPSULE.DR PO (06:19)
[2022-09-01] MEDS: Levothyroxine Sodium 112 MCG TABLET PO (06:19)
[2022-09-01 07:11] LABS: Glucose, Whole Blood 169 mg/dL (60-115)
[2022-09-01 07:23] VITALS: BP 119/51; PULSE 87; RESP 20; TEMP 36.8; O2SAT 93
[2022-09-01] MEDS: Insulin Lispro 100 UNIT/ML 3 ML VIAL SUBCUT ×2 (07:32→11:30)
[2022-09-01] MEDS: Heparin Sodium,Porcine 5,000 UNIT/ML VIAL 5000 UNIT SUBCUT (07:32)
[2022-09-01] MEDS: Multivitamin TABLET 1 TAB PO (07:33)
[2022-09-01] MEDS: Pyridoxine HCl (Vitamin B6) 50 MG TABLET 100 MG PO (07:33)
[2022-09-01] MEDS: 0.9 % Sodium Chloride Flush 3 ML SYRINGE IVFLUSH (07:33)
[2022-09-01] MEDS: Theophylline Anhydrous ER 400 MG TAB.ER.24H PO (07:33)
[2022-09-01] MEDS: DULoxetine HCl 30 MG CAPSULE.DR PO (07:33)
[2022-09-01] MEDS: Azithromycin 500 MG TABLET PO (07:37)
[2022-09-01] MEDS: cefTRIAXone sodium 1 GM in 0.9 % Sodium Chloride 50 ML IV (07:37)
[2022-09-01] MEDS: Albuterol/Iprat 2.5/0.5MG 3 ML AMPUL.NEB INHALE ×2 (08:01→11:43)
[2022-09-01 08:02] VITALS: PULSE 108; PULSE 93; PULSE 94; PULSE 95; RESP 18; O2SAT 108; O2SAT 90; O2SAT 94; O2SAT 95
[2022-09-01 11:26] LABS: Glucose, Whole Blood 209 mg/dL (60-115)
[2022-09-01 11:43] VITALS: PULSE 96; RESP 18; O2SAT 94
[2022-09-01 11:47] VITALS: BP 143/59; PULSE 85; RESP 21; TEMP 36.6; O2SAT 94
--- NOTE | 2022-09-01 14:05 | PM.DS ---
DS: Providers Provider Date of Service: 09/01/22 Date of admission: 08/28/22 19:35 Date of discharge: 09/01/22 Primary care physician: Luz Mccall NP DS: Diagnosis Discharge Diagnosis (1) Acute exacerbation of chronic obstructive airways disease: Status: Acute (2) Diabetes: Status: Acute DS: Summary Status at Discharge Cognitive/behavioral status at discharge: 76-year-old male with past medical history of COPD, asthma, diabetes, GERD, HTN, hypothyroidism, history of lung cancer, presents to the hospital with complaints of cough, sputum production, as well as increase cough for the past 2 days.? Reports that he has used his inhalers at home? as well as prednisone with no improvement therefore decided to come to the hospital.? He denies any headache, no change in vision, he has chest pain with coughing, no abdominal pain nausea or vomiting, no diarrhea constipation, no urinary symptoms and no lower extremity edema.? He has no orthopnea or PND.? He denies any fever or chills.? Hospital course Admitted started on IV ceftriaxone/azithromycin and pulse dose steroid. Continue to improved to the point that he was able to be weaned off the oxygen and can be discharged complete oral course of Ceftin along with prednisone taper Time Spent with Patient Time attestation: Total time spent providing and/or coordinating discharge services: Discharge coordination time: Greater than 30 minutes Quality: Safe Use of Opioids Does Pt have an Active Cancer Diagnosis on the Problem List?: No Quality: Stroke Does the patient have a stroke diagnosis?: No Physical Exam Vital Signs: Vital Signs: Last Vital Signs Temp 97.9 F 09/01/22 11:47 Pulse 85 09/01/22 11:47 Resp 21 H 09/01/22 11:47 BP 143/59 H 09/01/22 11:47 Pulse Ox 94 09/01/22 11:47 O2 Del Method 09/01/22 11:47 O2 Flow Rate 2 08/31/22 11:24 BMI result Body Mass Index 18.3 Const: Other: No acute distress Resp: Other: Diminished throughout with scattered expiratory wheezes and coarse rhonchi that clear with cough Cardio: Other: No S4; positive S1-S2; no S3 murmurs rubs or gallops GI: Other: Soft nontender nondistended normoactive bowel sounds Extrem: Other: No edema bilaterally DS: Data Data Completed and Pending Completed studies during hospitalization [Text1]: Procedures Dilation of Right Ureter with Intraluminal Device, Via Natural or Artificial Opening Endoscopic (11/16/21) Extirpation of Matter from Right Ureter, Via Natural or Artificial Opening Endoscopic (11/16/21) Fluoroscopy of Right Kidney, Ureter and Bladder (11/16/21) Labs on day of discharge: Laboratory Results - last 24 hr 08/31/22 08/31/22 09/01/22 16:09 19:58 07:08 POC Glucose 209 H 282 H 169 H 09/01/22 11:21 POC Glucose 209 H Preliminary micro results at discharge 08/28/22 17:47 Blood Culture - Preliminary Blood - Venous No growth after 48 hours. 08/28/22 17:22 Blood Culture - Preliminary Blood - Venous No growth after 48 hours. Discharge Plan Discharge Anticipated Discharge Date/Time: 09/01/22 14:07 Patient Disposition: Home Health Service Discharge Diagnosis: Acute exacerbation of COPD Referrals: Luz Mccall NP [Primary Care Provider] - 1 Week Discharge Medications: New cefuroxime axetil 500 mg tablet 500 mg PO BID 7 Days Qty: 14 0RF prednisone 10 mg tablet See Rx Instructions .Route .COMPLEX Qty: 45 0RF Rx Instructions: 10 mg orally; 5 tabs p.o. daily x3 days; 4 tabs p.o. daily x3 days; 3 tabs daily x3 days; 2 tabs daily x3 days; 1 tab daily x3 days Continued albuterol sulfate [Ventolin HFA] 90 mcg/actuation HFA aerosol inhaler 2 puff PO Q6H PRN (Reason: shortness of breath or wheezing) Qty: 18 3RF theophylline 400 mg tablet extended release 24 hr 400 mg PO DAILY Qty: 30 6RF metformin 500 mg tablet 500 mg PO DAILY levothyroxine 112 mcg tablet 112 mcg PO DAILY@0600 omeprazole 20 mg capsule,delayed release(DR/EC) 20 mg PO DAILY@0630 ipratropium-albuterol 0.5 mg-3 mg(2.5 mg base)/3 mL solution for nebulization 1 vial inhalation QID PRN (Reason: asthma) mirtazapine 7.5 mg Tablet 7.5 mg PO BEDTIME PRN (Reason: Sleep) nabumetone 500 mg tablet 1 tab PO BID PRN (Reason: knee pain) duloxetine 30 mg capsule,delayed release(DR/EC) 1 cap PO DAILY montelukast 10 mg tablet 1 tab PO BEDTIME multivitamin with folic acid [Daily-Leslie (with folic acid)] 400 mcg tablet 1 tab PO DAILY Trelegy Ellipta 200-62.5-25 mcg blister with device 1 puff inhalation DAILY pyridoxine (vitamin B6) 100 mg tablet 100 mg PO DAILY 90 Days Qty: 90 1RF Discontinued prednisone 10 mg tablet 15 mg PO DAILY Qty: 45 6RF Discharge Orders: Discharge Order (Routine); Ordered 09/01/22 Ordered By: Adrian Javier Diet: Advance to usual diet Activity on Discharge: As tolerated Stand Alone Forms: Patient Portal Discharge page Care Plan Goals: Complete prednisone taper as ordered; complete course of Ceftin twice a day for 1 week Health Concerns: Nebulizer treatments 4 times a day for 1 week then as needed Plan of Treatment: Follow-up PCP in 1-2 weeks Assessment: See discharge summary
--- NOTE | 2022-09-01 15:11 | MHC.CM.PN ---
pt dcd with derrick ruvalcaba
== END 2022-09-01 14:40 | disposition home health service (06) | DRG 191 ==
LOC: HO.ED 08-29 01:58 → HO.EDOVER 08-29 05:25 → HO.IMC 08-29 19:33
PROVIDERS: Nurse Practitioner Family; Admitting Provider Internal Medicine; Emergency Provider Emergency Medicine; PCP Nurse Practitioner Family; Visit Provider Hospitalist
DX: J44.1 Chronic obstructive pulmonary disease with (acute) exacerbation (principal); J45.21 Mild intermittent asthma with (acute) exacerbation; I10 Essential (primary) hypertension; E03.9 Hypothyroidism, unspecified; E11.9 Type 2 diabetes mellitus without complications; F17.210 Nicotine dependence, cigarettes, uncomplicated; K21.9 Gastro-esophageal reflux disease without esophagitis; Z71.6 Tobacco abuse counseling; Z20.822 Contact with and (suspected) exposure to COVID-19; Z99.81 Dependence on supplemental oxygen; Z85.118 Personal history of other malignant neoplasm of bronchus and lung; Z87.442 Personal history of urinary calculi; Z87.892 Personal history of anaphylaxis; Z87.01 Personal history of pneumonia (recurrent); Z91.013 Allergy to seafood; Z88.8 Allergy status to other drugs, medicaments and biological substances; Z79.84 Long term (current) use of oral hypoglycemic drugs; Z79.890 Hormone replacement therapy; Z79.899 Other long term (current) drug therapy
CPT/HCPCS: 36415; 71045; 80048; 80053; 82803; 82947; 83605; 83880; 84484; 85025; 87040; 87635; 90686; 93005; 94640; 96361; 96374; 96375; 99285; J0696; J2920; J2930

== ENCOUNTER 2022-09-15 19:45 | Inpatient (IN) | payer MEDICARE, MEDICAID, SELFPAY ==
--- NOTE | ~2022-09-15 | XR_ITS ---
EXAMINATION: XR chest 1V CLINICAL INFORMATION: Reason for Exam Pneumonia? Cough COMPARISON: Chest radiograph 08/28/2022 TECHNIQUE: One view of the chest XR/XR chest 1V FINDINGS/IMPRESSION: Right lung mass measuring 4.6 cm is unchanged. Additional smaller masses in the right lung are noted including a possible new right lower lung nodule measuring 1 cm. No pneumothorax. No pleural effusion. Unchanged cardiomediastinal silhouette.
[2022-09-15 19:50] VITALS: BP 171/144; PULSE 115; RESP 24; TEMP 36.9; O2SAT 97
--- NOTE | 2022-09-15 20:09 | ECG_ITS ---
Test Reason : SOB Blood Pressure : / mmHG Vent. Rate : 099 BPM Atrial Rate : 099 BPM P-R Int : 094 ms QRS Dur : 074 ms QT Int : 328 ms P-R-T Axes : 072 055 052 degrees QTc Int : 420 ms Poor data quality Sinus rhythm with short AK with Premature supraventricular complexes Otherwise normal ECG When compared with ECG of 28-AUG-2022 16:08, Premature supraventricular complexes are now Present Referred By: Harjeet Kincaid Electronically Signed By:EMILEE DO MD
--- OUTSIDE RECORDS SUMMARY | 2022-09-15 20:10 | XMS_ITS | Continuity of Care Document ---
:1945 Demographics Address [address] [place] [address] Mobile Preferred Language es Marital Status Single Gnosticism Affiliation Worship Race Unknown Ethnic Group or Author Organization [facility] Address [address] [place] [address]- Care Team Providers Name Role Phone Cal PRADO, Luz Simeon Primary Care Physician [facility]): [facility] - 10/05/20 [facility] [address] [place] [id number] Allergies, Adverse Reactions, Alerts Substance Reaction Severity Status doxycycline dizziness Active cephalexin rash Active gabapentin altered mental state Active Proventil HFA Nausea Active varenicline C/O: itching Active Nausea Insomnia Nicotine Patch1 Bronchospasm Active Nausea Dizzy 1see general med office note 4-3-09; pt reports bronchospasm/shortness of breath & palpitations within 5 minutes of putting on 14 patch that immediately went away after taking off patch Immunizations Given and Recorded Vaccine Date Status Refusal Reason influenza virus vaccine, inactivated 09/26/20 Given influenza virus vaccine, inactivated 10/18/18 Given influenza virus vaccine, inactivated1 09/24/17 Given influenza virus vaccine, inactivated 09/18/14 Given influenza virus vaccine, inactivated 08/18/13 Given influenza virus vaccine, inactivated2 07/18/12 Given influenza virus vaccine, inactivated3 08/27/11 Given influenza virus vaccine, inactivated4 08/29/10 Given tetanus-diphtheria toxoids (Td) 04/21/18 Given pneumococcal 13-valent vaccine5 04/02/16 Given Zoster Vaccine Live 09/19/13 Given influ virus vac, H1N1, inactive(oldterm)6 10/14/09 Given FluLaval (oldterm)7 08/21/09 Given Influenza Vaccine (oldterm)8 01/01/09 Given Tet/Diphth/Acel, Pertussis (oldterm)9 04/24/08 Given Influenza Virus Vaccine (oldterm)10 09/15/07 Given Influenza Virus Vaccine (oldterm)11 10/08/06 Given Pneumococcal Vaccine (oldterm)12 10/08/06 Given 1Result Comment: [09/24/2017] [facility] [id number] Note: VIS 7-123Admin Note: VIS given 06/23/11, guyanese wely1Ginqz Note: VIS GIVEN 07/08/10 tkxfyyy3Pnizoq Comment: [04/02/2016] VIS in Thai vtity5Uqnvg Note: sep 067Admin Note: vis given in Auzbebx7Ccdxd Note: VIS given in Vxzbkee3Twtxs Note: VIS IN RNZURAM37Oktye Note: VIS in kjxyvyp75Mmrwj Note: VIS-FQGSM08Tkiah Note: VIS-GIVEN Medications Accu-Chek Compact 17-Strip Drum Test Strips See Instructions, # 50 each, Refills 11, Tot. Refills 11, Maintenance, Use to check Blood sugar everyday. E11.9, 09/22/19 8:48:49 EDT, Compound Start Date: 09/22/19 Status: OrderedAccu-Chek Compact Lancets See Instructions, # 50 each, Refills 11, Tot. Refills 11, Maintenance, Dx: E11.9. Glucose checks QD,09/22/19 8:48:48 EDT, Compound Start Date: 09/22/19 Status: Orderedacetaminophen 500 mg oral capsule 2 capsule = 1,000 mg, By Mouth, 3 times a day, PRN for pain, not to exceed 3000 mg/day Thai instructions please, # 120 capsule, 0 Refills, Maintenance, 01/02/20 14:40:00 EST, Capsule, [facility]/pharmacy #[id number], 165.1, cm, 12/22/19 10:10:00 EST, Height, 5... Start Date: 01/02/20 Status: Orderedalbuterol 2.5mg / 3mL (0.083%) (OP) 3 mL = 2.5 mg, Neb, Every 6 hours, 0 Refills, Maintenance Start Date: 10/17/19 Status: Orderedalbuterol CFC free 90 mcg/inh inhalation aerosol 1, puffs, Inhalation, 4 times a day, PRN, # 1 each, Refills 11, Tot. Refills 11, Maintenance, 04/08/20 10:06:00 EDT, Aerosol, Route to Pharmacy Electronically, [id number], [facility]/pharmacy #207, 165.1, cm, 01/02/20 14:39:00 EST,... Start Date: 04/08/20 Status: Orderedalbuterol-ipratropium 3 mg-0.5 mg/3 ml inhalation solution 3 mL, Inhalation, 4 times a day, dx asthma J45, # 100 each, 11 Refills, Maintenance, 04/08/20 14:30:00 EDT, Solution, [facility]/pharmacy #[id number], 3 mL Inhalation 4 times a day,Instr:dx asthma J45, 165.1, cm, 01/02/20 14:39:00 EST, Height, 54.7, kg, 07/28/19 7... Start Date: 04/08/20 Status: Orderedatorvastatin 40 mg oral tablet TOME NAZ TABLETA TODOS LOS D? Start Date: 01/02/20 Status: OrderedAzithromycin 5 Day Dose Pack 250 mg oral tablet 1 pack/packet, By Mouth, Once, # 6 tablet, 0 Refills, Soft Stop, 09/26/20 9:31:00 EDT, Tablet, [facility]/pharmacy #207, 165.1, cm, 09/26/20 9:02:00 EDT, Height, 54.7, kg, 07/28/19 7:47:00 EDT, Dry Weight Start Date: 09/26/20 Status: Orderedbetamethasone topical valerate 0.1% ointment 1 application, Topically, 2 times a day, For severe eczema, # 45 Gm, 2 Refills, Maintenance, 04/29/20 14:00:00 EDT, Ointment, [facility]/pharmacy #[id number], replaced Fluocinonide, 1 application Topically 2 times a day,Instr:For severe eczema, 165.1, cm, 01/02/20... Start Date: 04/29/20 Status: Orderedcalcium (as citrate)-vitamin D 315 mg-250 intl units oral tablet See Instructions, 2 tablets with lunch, 1 tablet with dinner, # 100 each, 6 Refills, Maintenance, 09/22/19 8:52:27 EDT, Tablet, 2 tablets with lunch, 1 tablet with dinner Start Date: 09/22/19 Status: Orderedcapsaicin 0.025% topical cream 1 application, Topically, 2 times a day, to affected area avoid contact with face and eyes, # 45 Gm,1 Refills, Maintenance, 01/03/19 8:46:30 EST, Cream, instructions in Kyrgyz please, 1 application Topically 2 times a day,Instr:to affected area; av... Start Date: 01/03/19 Status: OrderedCombivent Respimat Inhalation, 4 times a day, 0 Refills, Maintenance, 10/17/19 10:17:24 EST Start Date: 10/17/19 Status: OrderedDaliresp 500 mcg oral tablet 1 tablet = 500 mcg, By Mouth, Daily, # 30 tablet, 11 Refills, Maintenance, 10/25/19 13:06:55 EST Start Date: 10/25/19 Status: Orderedfluocinonide 0.05% topical cream 1 application, Topically, 2 times a day, # 30 Gm, 5 Refills, Maintenance, 12/22/19 10:21:00 EST, Cream, [facility]/pharmacy #[id number], 1 application Topically 2 times a day, 165.1, cm, 12/22/19 10:10:00 EST, Height, 54.7, kg, 07/28/19 7:47:00 EDT, Dry Weight Start Date: 12/22/19 Status: Orderedfluticasone-salmeterol 232 mcg-14 mcg/inh inhalation powder 1 inhalation, Inhalation, 2 times a day, rinse mouth and throat after use, # 1 each, 11 Refills, Maintenance, 03/21/20 8:53:00 EDT, Powder, [facility]/pharmacy #[id number], 1 inhalation Inhalation 2 times a day,Instr:rinse mouth and throat after use, 165.1, cm, 02... Start Date: 03/21/20 Status: Orderedhydrocortisone 1% topical cream 1 application, Topically, 2 times a day, # 45 Gm, 3 Refills, Maintenance, 09/22/19 8:51:47 EDT, Cream, 1 application Topically 2 times a day Start Date: 09/22/19 Status: Orderedlevothyroxine 0.112 mg oral tablet 1 tablet = 112 mcg, By Mouth, Daily, # 90 tablet, 3 Refills, Maintenance, 09/10/20 8:40:00 EDT, Tablet, [facility]/pharmacy #[id number], dose change 09/10/20, 165.1, cm, 01/02/20 14:39:00 EST, Height, 54.7, kg, 07/28/19 7:47:00 EDT, Dry Weight Start Date: 09/10/20 Status: OrderedmetFORMIN 500 mg oral tablet 1 tablet = 500 mg, By Mouth, Daily, with meals, # 30 tablet, 11 Refills, Maintenance, 03/21/20 8:36:00 EDT, Tablet, [facility]/pharmacy #207, 165.1, cm, 01/02/20 14:39:00 EST, Height, 54.7, kg, 07/28/19 7:47:00 EDT, Dry Weight Start Date: 03/21/20 Status: Orderedmirtazapine 7.5 mg oral tablet 1 tablet = 7.5 mg, By Mouth, Daily at bedtime, for appetite, # 30 tablet, 11 Refills, Maintenance, 12/22/19 10:17:00 EST, [facility]acy #[id number], instructions in Thai, 165.1, cm, 12/22/19 10:10:00 EST, Height, 54.7, kg, 07/28/19 7:47:00 EDT, Dry Weight Start Date: 12/22/19 Status: Orderedmultivitamin Multiple Vitamins oral capsule 1 capsule, By Mouth, Daily, # 90 capsule, 3 Refills, Maintenance, 12/22/19 10:33:00 EST, Capsule, [facility]/pharmacy #[id number], 1 capsule By Mouth Daily, 165.1, cm, 12/22/19 10:10:00 EST, Height, 54.7, kg, 07/28/19 7:47:00 EDT, Dry Weight Start Date: 12/22/19 Status: Orderednabumetone 500 mg oral tablet 1 tablet = 500 mg, By Mouth, 2 times a day, for knee pain, # 60 tablet, 3 Refills, Maintenance, 08/18/20 13:38:00 EDT, Tablet, [facility]/pharmacy #207, instructions in guyanese, 165.1, cm, 01/02/20 14:39:00 EST, Height, 54.7, kg, 07/28/19 7:47:00 EDT, Dry W... Start Date: 08/18/20 Status: OrderedNebulizer/Compressor See Instructions, # 1 each, Maintenance, D: COPD severe, Gold Ct 4 For use PRN Q4hr for shortness ofbreath, 12/22/19 10:19:00 EST, Compound Start Date: 12/22/19 Status: Orderednicotine 4 mg oral transmucosal lozenge 1 lozenge = 4 mg, By Mouth, Every hour, # 132 lozenge, 1 Refills, Maintenance, 09/26/20 9:25:00 EDT,[facility]/pharmacy #[id number], 1 lozenge By Mouth Every hour, 165.1, cm, 09/26/20 9:02:00 EDT, Height, 54.7, kg, 07/28/19 7:47:00 EDT, Dry Weight Start Date: 09/26/20 Status: OrderedNicotine 7 mg/24 hour patch 1 patch, Topically, Daily, # 30 patch, 5 Refills, Maintenance, 09/26/20 9:23:00 EDT, Patch, [id number], 1 patch Topically Daily, 165.1, cm, 09/26/20 9:02:00 EDT, Height, 54.7, kg, 07/28/19 7:47:00 EDT, Dry Weight Start Date: 09/26/20 Status: Orderedomeprazole 20 mg oral enteric coated capsule 1 capsule = 20 mg, By Mouth, Daily, # 90 capsule, 3 Refills, Soft Stop, 08/18/20 13:37:00 EDT, [id number], 165.1, cm, 01/02/20 14:39:00 EST, Height, 54.7, kg, 07/28/19 7:47:00 EDT, Dry Weight Start Date: 08/18/20 Status: OrderedpredniSONE 10 mg oral tablet 1 tablet = 10 mg, By Mouth, Daily, # 90 tablet, 3 Refills, Maintenance, 03/16/20 9:39:00 EDT, [id number], 165.1, cm, 01/02/20 14:39:00 EST, Height, 54.7, kg, 07/28/19 7:47:00 EDT, Dry Weight Start Date: 03/16/20 Status: OrderedShower chair with back Shower chair with back, See Instructions, # 1 each, Refills 0, Tot. Refills 0, Maintenance, Dx: COPD, severe knee osteoarthritis, high risk of falls, 06/02/19 11:50:31 EDT, Compound Start Date: 06/02/19 Status: OrderedSingulair 10 mg oral tablet 10 mg, 1, tablet, By Mouth, Daily in PM, # 90 tablet, Refills 3, Tot. Refills 3, Maintenance, 12/22/19 10:33:00 EST, Route to Pharmacy Electronically, [facility]/pharmacy #[id number], 165.1, cm, 12/22/19 10:10:00 EST, Height, 54.7, kg, 07/28/19 7:47:00 EDT, Dry We... Start Date: 12/22/19 Status: OrderedSpiriva HandiHaler 18 mcg inhalation capsule 1 capsule = 18 mcg, Inhalation, Daily, # 90 capsule, 3 Refills, Maintenance, 09/22/19 8:49:37 EDT Start Date: 09/22/19 Status: Ordered Problem List Condition Effective Dates Status Health Status Informant Asthma(Confirmed)1 01/23/09 Active Cataract(Confirmed) Active Cervical arthritis(Confirmed)2, 3 Active Colonoscopy(Confirmed)4 06/02/07 Active COPD - Chronic obstructive pulmonary Active disease(Confirmed)5 Diabetes Mellitus(Confirmed) 2011 Active Diverticulosis(Confirmed)6 05/2012 Active Granuloma(Confirmed)7, 8 Active 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 Heartburn(Confirmed) Active Hemorrhoid(Confirmed)9 2011 Active Hydronephrosis(Confirmed)10, 11 01/18/09 Active Hyperlipidemia(Confirmed) 04/2010 Active Insomnia(Confirmed) Active Kidney stone(Confirmed)12 01/18/09 Active DJD (degenerative joint disease), Active lumbar(Confirmed) Lung nodule(Confirmed) Active Microalbuminuria(Confirmed)13 01/03/19 Active Multiple lung nodules on 09/13/[address](Confirmed)14 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 Osteoarthritis of knee(Confirmed)16 12/2009 Active Osteoporosis(Confirmed)17 2012 Active 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 mild left dajmzqfnfcikzy40xyk CT from [facility] , ER was notified 13not starting meds due to polypharmacy and muwlklbqjmrfy52Nyw 10mm nodule LUNG-RADS 4B 5on 2007 [id number] 2009 [id number] DEXA: T-score lowest -3.718Rash developed 07/06/13 Social History Social History Type Response Smoking Status Former smoker; Other: per pt ; entered on: 04/21/18 Sex Male
--- OUTSIDE RECORDS SUMMARY | 2022-09-15 20:10 | XMS_ITS | Continuity of Care Document ---
:1945 Demographics Address [address] [place] [address] Mobile Preferred Language es Marital Status Single Mandaen Affiliation Advent Race Unknown Ethnic Group or Author Organization [facility] Address [address] [place] [phone]- Care Team Providers Name Role Phone Cal PRADO, Luz Simeon Primary Care Physician [facility]): [facility] - 07/31/21 [facility] and Diabetes [address] [place] [phone]- Allergies, Adverse Reactions, Alerts Substance Reaction Severity Status doxycycline dizziness Active cephalexin rash Active gabapentin altered mental state Active Proventil HFA Nausea Active varenicline C/O: itching Active Nausea Insomnia Nicotine Patch1 Bronchospasm Active Nausea Dizzy traMADol Active 1see general med office note 4-3-09; pt reports bronchospasm/shortness of breath & palpitations within 5 minutes of putting on 14 patch that immediately went away after taking off patch Immunizations Given and Recorded Vaccine Date Status Refusal Reason SARS-CoV-2 (COVID-19) mRNA BNT-162b2 vac 02/03/21 Given SARS-CoV-2 (COVID-19) mRNA BNT-162b2 vac 01/13/21 Given influenza virus vaccine, inactivated 09/26/20 Given influenza [...] Vaccine (oldterm)12 10/08/06 Given 1Result Comment: [09/24/2017] [facility] [id number] Note: VIS 7-123Admin Note: VIS given 06/23/11, turks and caicos islander posz3Zhjss Note: VIS GIVEN 07/08/10 frbnvrr1Jljpha Comment: [04/02/2016] VIS in Cambodian lojej5Lboxa Note: augdmin Note: vis given in Uujixta3Ouwmn Note: VIS given in Ismcqsg6Acqsf Note: VIS IN LJPSIKF80Qihqi Note: VIS in rglwtqw60Orwtv Note: VIS-ARJIE84Uuwep Note: VIS-GIVEN Medications albuterol CFC free 90 mcg/inh inhalation aerosol 1, puffs, Inhalation, 4 times a day, PRN, dx: J45.909, # 1 each, Refills 5, Tot. Refills 5, Maintenance, 06/10/21 15:20:00 EDT, Aerosol, Route to Pharmacy Electronically, [id number], [facility]/pharmacy #[id number], 160, cm, 05/20/21 14:1... Start Date: 06/10/21 Status: Orderedalbuterol-ipratropium 3 mg-0.5 mg/3 ml inhalation solution 3 mL, Inhalation, 4 times a day, dx asthma J45, COPD J44.9, # 100 each, 11 Refills, Maintenance, 07/09/21 15:08:00 EDT, Solution, [id number], 3 mL Inhalation 4 times a day,Instr:dx asthma J45, COPD J44.9, 160, cm, 07/04/21 9:33:00 EDT, Height,... Start Date: 07/09/21 Status: Orderedbetamethasone topical valerate 0.1% ointment 1 application, Topically, 2 times a day, For severe eczema, # 45 Gm, 2 Refills, Maintenance, 07/04/21 9:57:00 EDT, Ointment, [facility]/pharmacy #[id number], instead of Fluocinonide, 1 application Topically 2 timesa day,Instr:For severe eczema, 160, cm, 07/04/21... Start Date: 07/04/21 Status: Orderedcalcium (as carbonate)-vitamin D 500 mg-400 intl units oral tablet 1 tablet, By Mouth, 2 times a day, # 60 tablet, 11 Refills, Maintenance, 12/10/20 11:55:00 EST, Tablet, [facility]/pharmacy #[id number], Partial fill upon patient request if the prescription is for a schedule II opioid drug., 1 tablet By Mouth 2 times a day, 160,... Start Date: 12/10/20 Status: OrderedDaliresp 500 mcg oral tablet 1 tablet = 500 mcg, By Mouth, Daily, for COPD, # 90 tablet, 3 Refills, Maintenance, 02/13/21 13:50:00 EDT, [facility]/pharmacy #207, 160, cm, 02/13/21 12:53:00 EDT, Height, 54.7, kg, 07/28/19 7:47:00 EDT, Dry Weight Start Date: 02/13/21 Status: Orderedduloxetine 30 mg oral enteric coated capsule 1 capsule = 30 mg, By Mouth, Daily, do not crush or chew. FOR CHRONIC PAIN, # 30 capsule, 1 Refills,Maintenance, 07/04/21 9:48:00 EDT, CR Capsule, [facility]/pharmacy #[id number], Partial fill upon patient requestif the prescription is for a schedule II opioid d... Start Date: 07/04/21 Status: OrderedFreestyle Lite Lancets See Instructions, # 100 each, Refills 11, Tot. Refills 11, Maintenance, Dx: DM2, check BID, 02/25/2112:57:00 EDT, Supply, 160, cm, 02/13/21 13:46:00 EDT, Height, 54.7, kg, 07/28/19 7:47:00 EDT, Dry Weight Start Date: 02/24/21 Status: OrderedFreestyle Lite Test Strips See Instructions, # 100 each, Refills 10, Tot. Refills 10, Maintenance, Dx: DM2- E11.9 check BID, 04/17/21 10:32:00 EDT, duplicate rx. original sent 03/20/21. remaining refills sent., Supply, 160, cm, 02/13/21 13:46:00 EDT, Height, 54.7, kg, 07/28/19... Start Date: 04/17/21 Status: OrderedlevoFLOXacin 500 mg oral tablet TOME NAZ TABLETA TODOS LOS D Start Date: 02/13/21 Status: Orderedlevothyroxine 0.112 mg oral tablet 1 tablet = 112 mcg, By Mouth, Daily, # 90 tablet, 3 Refills, Maintenance, 09/10/20 8:40:00 EDT, Tablet, [id number], dose change 09/10/20, 165.1, cm, 01/02/20 14:39:00 EST, Height, 54.7, kg, 07/28/19 7:47:00 EDT, Dry Weight Start Date: 09/10/20 Status: OrderedmetFORMIN 500 mg oral tablet 1 tablet = 500 mg, By Mouth, Daily, with meals, # 90 tablet, 3 Refills, Maintenance, 05/15/21 10:18:00 EDT, Tablet, [facility], 160, cm, 02/13/21 13:46:00 EDT, Height, 54.7, kg, 07/28/19 7:47:00 EDT, Dry Weight Start Date: 05/15/21 Status: Orderedmirtazapine 7.5 mg oral tablet 1 tablet = 7.5 mg, By Mouth, Daily at bedtime, for appetite, # 90 tablet, 3 Refills, Maintenance, 05/15/21 10:16:00 EDT, [id number], instructions in Cambodian, 160, cm, 02/13/21 13:46:00 EDT, Height, 54.7, kg, 07/28/19 7:47:00 EDT, Dry Weight Start Date: 05/15/21 Status: Orderedmultivitamin Multiple Vitamins oral capsule 1 capsule, By Mouth, Daily, # 90 capsule, 3 Refills, Maintenance, 05/15/21 10:17:00 EDT, Capsule, [id number], 1 capsule By Mouth Daily, 160, cm, 02/13/21 13:46:00 EDT, Height, 54.7, kg, 07/28/19 7:47:00 EDT, Dry Weight Start Date: 05/15/21 Status: Orderednabumetone 500 mg oral tablet 1 tablet = 500 mg, By Mouth, 2 times a day, for knee pain, # 60 tablet, 3 Refills, Maintenance, 07/04/21 9:45:00 EDT, Tablet, [facility]/pharmacy #[id number], instructions in [place] islander, 160, cm, 07/04/21 9:33:00 EDT,Height, 54.7, kg, 07/28/19 7:47:00 EDT, Dry Weight Start Date: 07/04/21 Status: OrderedNebulizer/Compressor See Instructions, # 1 each, Maintenance, D: COPD severe, Gold Ct 4 For use PRN Q4hr for shortness ofbreath, 12/22/19 10:19:00 EST, Compound Start Date: 12/22/19 Status: Orderednicotine 4 mg oral transmucosal lozenge 1 lozenge = 4 mg, By Mouth, Every hour, # 189 lozenge, 11 Refills, Maintenance, 11/01/20 11:26:00 EST, [facility], 1 lozenge By Mouth Every hour, 165.1, cm, 09/26/20 9:02:00 EDT, Height, 54.7, kg, 07/28/19 7:47:00 EDT, Dry Weight Start Date: 11/01/20 Status: OrderedNicotine 7 mg/24 hour patch 1 patch, Topically, Daily, remove patch before sleeping, # 30 patch, 11 Refills, Maintenance, 11/01/20 11:26:00 EST, Patch, [facility], 165.1, cm, 09/26/20 9:02:00 EDT, Height, 54.7, kg, 07/28/19 7:47:00 EDT, Dry Weight Start Date: 11/01/20 Stop Date: 10/27/21 Status: Orderedomeprazole 20 mg oral enteric coated capsule 1 capsule = 20 mg, By Mouth, Daily, # 90 capsule, 3 Refills, Soft Stop, 08/18/20 13:37:00 EDT, [facility], 165.1, cm, 01/02/20 14:39:00 EST, Height, 54.7, kg, 07/28/19 7:47:00 EDT, Dry Weight Start Date: 08/18/20 Status: OrderedpredniSONE 10 mg oral tablet 1 tablet = 10 mg, By Mouth, Daily, # 90 tablet, 3 Refills, Maintenance, 12/05/20 10:03:00 EST, [facility]/pharmacy #207, 160, cm, 12/03/20 9:29:00 EST, Height, 54.7, kg, 07/28/19 7:47:00 EDT, Dry Weight Start Date: 12/05/20 Status: OrderedSingulair 10 mg oral tablet 10 mg, 1, tablet, By Mouth, Daily in PM, # 90 tablet, Refills 3, Tot. Refills 3, Maintenance, 05/15/21 10:17:00 EDT, Route to Pharmacy Electronically, [facility]/pharmacy #207, 160, cm, 02/13/21 13:46:00 EDT, Height, 54.7, kg, 07/28/19 7:47:00 EDT, Dry Weight Start Date: 05/15/21 Status: OrderedTrelegy Ellipta 200 mcg-62.5 mcg-25 mcg/inh inhalation powder TOME NAZ INHALACI N POR V A ORAL TODOS LOS D Start Date: 02/13/21 Status: OrderedVitamin D3 5000 intl units oral capsule 1 capsule = 5,000 International_Units, By Mouth, Daily, with food, # 30 capsule, 6 Refills, Maintenance, 04/14/21 10:42:00 EDT, Capsule, [facility]/pharmacy #[id number], Please put instructions in Cambodian, 160, cm,02/13/21 13:46:00 EDT, Height, 54.7, kg, 07/28/19... 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 Heartburn(Confirmed) Active Hemorrhoid(Confirmed)9 2011 Active Hydronephrosis(Confirmed)10, 11 01/18/09 Active Hyperlipidemia(Confirmed) 04/2010 Active Insomnia(Confirmed) Active Kidney stone(Confirmed)12 01/18/09 Active DJD (degenerative joint disease), Active lumbar(Confirmed) Lung nodule(Confirmed) Active Microalbuminuria(Confirmed)13 01/03/19 Active Multiple lung nodules on 09/13/[address](Confirmed)14, 15 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9internal and external per 2011 bebnjhwbwiw84pqhjmja consult written farnw53tto CT from [facility], associated with ureteral stone. mild left gktdxavpwkgkbi74lth CT from [facility] , ER was notified 13not starting meds due to polypharmacy and nyizksuqnokto04Tlbqttof by Pulm in [place], stability on repeat CT Chest Sep 2020 per their lbvs60Xdn 10mm nodule LUNG-RADS 4B 6on 2007 x-[id number] 2009 [id number] DEXA: T-score lowest -3.719Rash developed 07/06/13 Social History Social History Type Response Smoking Status Former smoker; Other: per pt ; entered on: 04/21/18 Sex Male
--- OUTSIDE RECORDS SUMMARY | 2022-09-15 20:10 | XMS_ITS | Continuity of Care Document ---
:1945 Demographics Address [address] [place] [address] Mobile Preferred Language es Marital Status Single Quaker Affiliation Synagogue Race Unknown Ethnic Group or Author Organization [address], [address] [place] [address]- Care Team Providers Name Role Phone Cal PRADO, Luz Simeon Primary Care Physician Encounter [facility] [place] Date(s): 04/07/21 - 06/19/[address], [address] [place], [place] [address] Attending Physician: Ray Jennings MD Referring Physician: Lucy Hubbard DO Allergies, Adverse Reactions, Alerts Substance Reaction Severity [...] 09/19/13 Given influ virus vac, H1N1, inactive(oldterm)6 11/16/09 Given FluLaval (oldterm)7 08/21/09 Given Influenza Vaccine (oldterm)8 01/01/09 Given Tet/Diphth/Acel, Pertussis (oldterm)9 04/24/08 Given Influenza Virus Vaccine (oldterm)10 09/15/07 Given Influenza Virus Vaccine (oldterm)11 10/08/06 Given Pneumococcal Vaccine (oldterm)12 10/08/06 Given 1Result Comment: [09/24/2017] [facility] [id number] Note: VIS 7-123Admin Note: VIS given 06/23/11, irish eajv1Rrokc Note: VIS GIVEN 07/08/10 fqhxflw2Omlsbk Comment: [04/02/2016] VIS in Cymro rpnud7Gzcmm Note: sep 067Admin Note: vis given in Hlmqrey4Wgeio Note: VIS given in Dajejfo7Wtltd Note: VIS IN KAXVSGP73Qdpfw Note: VIS in qxiqybs77Akogn Note: VIS-VTLAC04Wkogx Note: VIS-GIVEN Medications acetaminophen 500 mg oral capsule 2 capsule = 1,000 mg, By Mouth, 3 times a day, PRN for pain, not to exceed 3000 mg/day Cymro instructions please, # 120 capsule, 0 Refills, Maintenance, 01/02/20 14:40:00 EST, Capsule, [facility]/pharmacy #[id number], 165.1, cm, 12/22/19 10:10:00 EST, Height, 5... Start Date: 01/02/20 Status: Orderedalbuterol CFC free 90 mcg/inh inhalation aerosol 1, puffs, Inhalation, 4 times a day, PRN, dx: J45.909, # 1 each, Refills 5, Tot. Refills 5, Maintenance, 06/10/21 15:20:00 EDT, Aerosol, Route to Pharmacy Electronically, [id number], [facility]/pharmacy #[id number], 160, cm, 05/20/21 14:1... Start Date: 06/10/21 Status: Orderedalbuterol-ipratropium 3 mg-0.5 mg/3 ml inhalation solution 3 mL, Inhalation, 4 times a day, dx asthma J45, COPD J44.9, # 100 each, 11 Refills, Maintenance, 06/13/21 10:35:00 EDT, Solution, [facility]/pharmacy #[id number], 3 mL Inhalation 4 times a day,Instr:dx asthma J45, COPD J44.9, 160, cm, 05/20/21 14:12:00 EDT, Height... Start Date: 06/13/21 Status: Orderedbetamethasone topical valerate 0.1% ointment 1 application, Topically, 2 times a day, For severe eczema, # 45 Gm, 2 Refills, Maintenance, 05/15/21 10:19:00 EDT, Ointment, [facility]/pharmacy #207, instead of Fluocinonide, 1 application Topically 2 times a day,Instr:For severe eczema, 160, cm, 02/13/21... Start Date: 05/15/21 Status: Orderedcalcium (as carbonate)-vitamin D 500 mg-400 intl units oral tablet 1 tablet, By Mouth, 2 times a day, # 60 tablet, 11 Refills, Maintenance, 12/10/20 11:55:00 EST, Tablet, [facility]/pharmacy #207, Partial fill upon patient request if the prescription is for a schedule II opioid drug., 1 tablet By Mouth 2 times a day, 160,... Start Date: 12/10/20 Status: OrderedDaliresp 500 mcg oral tablet 1 tablet = 500 mcg, By Mouth, Daily, for COPD, # 90 tablet, 3 Refills, Maintenance, 02/13/21 13:50:00 EDT, [facility], 160, cm, 02/13/21 12:53:00 EDT, Height, 54.7, kg, 07/28/19 7:47:00 EDT, Dry Weight Start Date: 02/13/21 Status: OrderedFreestyle Lite Lancets See Instructions, # [...] 500 mg oral tablet TOME NAZ TABLETA TOS LOS D Start Date: 02/13/21 Status: Orderedlevothyroxine 0.112 mg oral tablet 1 tablet = 112 mcg, By Mouth, Daily, # 90 tablet, 3 Refills, Maintenance, 09/10/20 8:40:00 EDT, Tablet, [facility]/pharmacy #[id number], dose change 09/10/20, 165.1, cm, 01/02/20 14:39:00 EST, Height, 54.7, kg, 07/28/19 7:47:00 EDT, Dry Weight Start Date: 09/10/20 Status: OrderedmetFORMIN 500 mg oral tablet 1 tablet = 500 mg, By Mouth, Daily, with meals, # 90 tablet, 3 Refills, Maintenance, 05/15/21 10:18:00 EDT, Tablet, [facility]/pharmacy #2071, 160, cm, 02/13/21 13:46:00 EDT, Height, 54.7, kg, 07/28/19 7:47:00 EDT, Dry Weight Start Date: 05/15/21 Status: Orderedmirtazapine 7.5 mg oral tablet 1 tablet = 7.5 mg, By Mouth, Daily at bedtime, for appetite, # 90 tablet, 3 Refills, Maintenance, 05/15/21 10:16:00 EDT, [facility]/pharmacy #[id number], instructions in Cymro, 160, cm, 02/13/21 13:46:00 EDT, Height, 54.7, [...] 3 Refills, Maintenance, 08/18/20 13:38:00 EDT, Tablet, [facility], instructions in irish, 165.1, cm, 01/02/20 14:39:00 EST, Height, 54.7, [...] lozenge, 11 Refills, Maintenance, 11/01/20 11:26:00 EST, [facility]/pharmacy #207, 1 lozenge By Mouth Every hour, [...] 3 Refills, Soft Stop, 08/18/20 13:37:00 EDT, [facility]/pharmacy #2071, 165.1, cm, 01/02/20 14:39:00 EST, Height, 54.7, kg, 07/28/19 7:47:00 EDT, Dry Weight Start Date: 08/18/20 Status: OrderedpredniSONE 10 mg oral tablet 1 tablet = 10 mg, By Mouth, Daily, # 90 tablet, 3 Refills, Maintenance, 12/05/20 10:03:00 EST, [facility]/pharmacy #2071, 160, cm, 12/03/20 9:29:00 EST, Height, 54.7, kg, 07/28/19 7:47:00 EDT, Dry Weight Start Date: 12/05/20 Status: OrderedSingulair 10 mg oral tablet 10 mg, 1, tablet, By Mouth, Daily in PM, # 90 tablet, Refills 3, Tot. Refills 3, Maintenance, 05/15/21 10:17:00 EDT, Route to Pharmacy Electronically, [facility]/pharmacy #[id number], 160, cm, 02/13/21 13:46:00 EDT, Height, 54.7, [...] 6 Refills, Maintenance, 04/14/21 10:42:00 EDT, Capsule, [facility]/pharmacy #2071, Please put instructions in Cymro, 160, cm,02/13/21 13:46:00 EDT, Height, 54.7, kg, [...] polyneuropathy(Confirmed)19 Smoker(Confirmed) Active Thrush(Confirmed) Active Tobacco abuse(Confirmed) 196 Active 1positive bronchial challenge 2-092x-ray 2013 stable, [id number] x-ray, mmpv1qaofvu 5 pxzvz7Eoescf emphysema per pulmo note per -2011 ovdgmmqliht1MAU negative [id number] (lateral basal segment of the left lower lobe), per CT 01-18-2009 done at [facility]9internal and external per 2011 ctfmzwmgxmy05jobtysx consult written xzyuw88jbz CT from [facility], associated with ureteral stone. mild left baglajriqhwtlx42gqk CT from [facility] , ER was notified 13not starting meds due to polypharmacy and urdgsttrvaddi09Ywrscsyq by Pulm in [place], stability on repeat CT Chest Sep 2020 per their pcjr06Wzl 10mm nodule LUNG-RADS 4B 6on 2007 [id number] 2009 [id number] DEXA: T-score lowest -3.719Rash developed 07/06/13 Social History Social History Type Response Smoking Status Former smoker; Other: per pt ; entered on: 04/21/18 Sex Male
--- OUTSIDE RECORDS SUMMARY | 2022-09-15 20:10 | XMS_ITS | Continuity of Care Document ---
:1945 Demographics Address [address] [place] [address] Mobile Preferred Language es Marital Status Single Faith Affiliation Episcopalian Race Unknown Ethnic Group or Author Organization [facility] Address [address] [place] [phone]- Care Team Providers Name Role Phone Cal PRADO, Luz Simeon Primary Care Physician Encounter [facility] Date(s): 01/22/21 - 03/01/21 [facility] [address] [place] [id number] Attending Physician: Cal PRADO, Luz Simeon Admitting Physician: Cal PRADO, Luz Simeon Allergies, Adverse Reactions, Alerts Substance Reaction Severity Status doxycycline dizziness Active cephalexin rash Active gabapentin altered mental state Active varenicline C/O: itching Active Nausea Insomnia Proventil HFA Nausea Active Nicotine Patch1 Bronchospasm Active Nausea Dizzy 1see [...] (oldterm)12 10/08/06 Given 1Result Comment: [09/24/2017] [facility] [id number] Note: VIS 7-123Admin Note: VIS given 06/23/11, kuwaiti hlus4Rcpyi Note: VIS GIVEN 07/08/10 dqrylrw5Ewlyzc Comment: [04/02/2016] VIS in Fijian jgbrv6Ahiqz Note: sep 067Admin Note: vis given in Dvzuoyx7Gacmw Note: VIS given in Huarvgc9Uhgjv Note: VIS IN FPYXOFF35Zifdm Note: VIS in ulphybj92Clhur Note: VIS-LTVLC70Vposy Note: VIS-GIVEN Medications acetaminophen 500 mg oral capsule 2 capsule = 1,000 mg, By Mouth, 3 times a day, PRN for pain, not to exceed 3000 mg/day Fijian instructions please, # 120 capsule, 0 Refills, Maintenance, 01/02/20 14:40:00 EST, Capsule, [facility]/pharmacy #[id number], 165.1, cm, 12/22/19 10:10:00 EST, Height, 5... Start Date: 01/02/20 Status: Orderedalbuterol CFC free 90 mcg/inh inhalation aerosol 1, puffs, Inhalation, 4 times a day, PRN, # 1 each, Refills 11, Tot. Refills 11, Maintenance, 04/08/20 10:06:00 EDT, Aerosol, Route to Pharmacy Electronically, [id number], [facility]/pharmacy #[id number], 165.1, cm, 01/02/20 14:39:00 EST,... Start Date: 04/08/20 Status: Orderedalbuterol-ipratropium 3 mg-0.5 mg/3 ml inhalation solution 3 mL, Inhalation, 4 times a day, dx asthma J45, # 100 each, 11 Refills, Maintenance, 04/08/20 14:30:00 EDT, Solution, [facility], 3 mL Inhalation 4 times a day,Instr:dx asthma J45, 165.1, cm, 01/02/20 14:39:00 EST, Height, 54.7, kg, 07/28/19 7... Start Date: 04/08/20 Status: Orderedbetamethasone topical valerate 0.1% ointment 1 application, Topically, 2 times a day, For severe eczema, # 45 Gm, 2 Refills, Maintenance, 04/29/20 14:00:00 EDT, Ointment, [facility], replaced Fluocinonide, 1 application Topically 2 times a day,Instr:For severe eczema, 165.1, cm, 01/02/20... Start Date: 04/29/20 Status: Orderedcalcium (as carbonate)-vitamin D 500 mg-400 intl units oral tablet 1 tablet, By Mouth, 2 times a day, # 60 tablet, 11 Refills, Maintenance, 12/10/20 11:55:00 EST, Tablet, [facility], Partial fill upon patient request if [...] EDT, Dry Weight Start Date: 02/13/21 Status: Orderedfluocinonide 0.05% topical cream 1 application, Topically, 2 times a day, # 30 Gm, 5 Refills, Maintenance, 12/22/19 10:21:00 EST, Cream, [id number], 1 application Topically 2 times a day, 165.1, cm, 12/22/19 10:10:00 EST, Height, 54.7, kg, 07/28/19 7:47:00 EDT, Dry Weight Start Date: 12/22/19 Status: OrderedFreestyle Lite Lancets See Instructions, # 100 each, Refills 11, Tot. Refills 11, Maintenance, Dx: DM2, check BID, 02/25/2112:57:00 EDT, Supply, 160, cm, 02/13/21 13:46:00 EDT, Height, 54.7, kg, 07/28/19 7:47:00 EDT, Dry Weight Start Date: 02/24/21 Status: OrderedFreestyle Lite Test Strips See Instructions, # 100 each, Refills 11, Tot. Refills 11, Maintenance, Dx: DM2 check BID, 02/24/21 12:57:00 EDT, Supply, 160, cm, 02/13/21 13:46:00 EDT, Height, 54.7, kg, 07/28/19 7:47:00 EDT, Dry Weight Start Date: 02/24/21 Status: OrderedlevoFLOXacin 500 mg oral tablet BAHMAN Arauz Start Date: 02/13/21 Status: Orderedlevothyroxine 0.112 mg oral tablet 1 tablet = 112 mcg, By Mouth, Daily, # 90 tablet, 3 Refills, Maintenance, 09/10/20 8:40:00 EDT, Tablet, [facility]/pharmacy #2071, dose change 09/10/20, 165.1, cm, 01/02/20 14:39:00 EST, Height, 54.7, kg, 07/28/19 7:47:00 EDT, Dry Weight Start Date: 09/10/20 Status: OrderedmetFORMIN 500 mg oral tablet 1 tablet = 500 mg, By Mouth, Daily, with meals, # 30 tablet, 11 Refills, Maintenance, 03/21/20 8:36:00 EDT, Tablet, [facility]/pharmacy #2071, 165.1, cm, 01/02/20 14:39:00 EST, Height, 54.7, kg, 07/28/19 7:47:00 EDT, Dry Weight Start Date: 03/21/20 Status: Orderedmirtazapine 7.5 mg oral tablet 1 tablet = 7.5 mg, By Mouth, Daily at bedtime, for appetite, # 30 tablet, 11 Refills, Maintenance, 12/22/19 10:17:00 EST, [id number], instructions in Fijian, 165.1, cm, 12/22/19 10:10:00 EST, Height, 54.7, kg, 07/28/19 7:47:00 EDT, Dry Weight Start Date: 12/22/19 Status: Orderedmultivitamin Multiple Vitamins oral capsule 1 capsule, By Mouth, Daily, # 90 capsule, 3 Refills, Maintenance, 12/22/19 10:33:00 EST, Capsule, [facility], 1 capsule By Mouth Daily, 165.1, cm, 12/22/19 10:10:00 EST, Height, 54.7, kg, 07/28/19 7:47:00 EDT, Dry Weight Start Date: 12/22/19 Status: Orderednabumetone 500 mg oral tablet 1 tablet = 500 mg, By Mouth, 2 times a day, for knee pain, # 60 tablet, 3 Refills, Maintenance, 08/18/20 13:38:00 EDT, Tablet, [facility], instructions in kuwaiti, 165.1, cm, 01/02/20 14:39:00 EST, Height, 54.7, [...] 11 Refills, Maintenance, 11/01/20 11:26:00 EST, [facility], 1 lozenge By Mouth Every hour, 165.1, cm, 09/26/20 9:02:00 EDT, Height, 54.7, kg, 07/28/19 7:47:00 EDT, Dry Weight Start Date: 11/01/20 Status: OrderedNicotine 7 mg/24 hour patch 1 patch, Topically, Daily, remove patch before sleeping, # 30 patch, 11 Refills, Maintenance, 11/01/20 11:26:00 EST, Patch, [facility]/pharmacy #2070, 165.1, cm, 09/26/20 9:02:00 EDT, Height, 54.7, kg, 07/28/19 7:47:00 EDT, Dry Weight Start Date: 11/01/20 Stop Date: 10/27/21 Status: Orderedomeprazole 20 mg oral enteric coated capsule 1 capsule = 20 mg, By Mouth, Daily, # 90 capsule, 3 Refills, Soft Stop, 08/18/20 13:37:00 EDT, [facility]/pharmacy #2070, 165.1, cm, 01/02/20 14:39:00 EST, Height, 54.7, kg, 07/28/19 7:47:00 EDT, Dry Weight Start Date: 08/18/20 Status: OrderedpredniSONE 10 mg oral tablet 1 tablet = 10 mg, By Mouth, Daily, # 90 tablet, 3 Refills, Maintenance, 12/05/20 10:03:00 EST, [facility]/pharmacy #2070, 160, cm, 12/03/20 9:29:00 EST, Height, 54.7, kg, 07/28/19 7:47:00 EDT, Dry Weight Start Date: 12/05/20 Status: OrderedShower chair with back Shower chair [...] 12/22/19 10:33:00 EST, Route to Pharmacy Electronically, [facility]/pharmacy #[id number], 165.1, cm, 12/22/19 10:10:00 EST, Height, 54.7, kg, 07/28/19 7:47:00 EDT, Dry We... Start Date: 12/22/19 Status: OrderedTrelegy Ellipta 200 mcg-62.5 mcg-25 mcg/inh inhalation powder TOME NAZ INHALACI N POR V A ORAL TODOS LOS D Start Date: 02/13/21 Status: Ordered Problem List Condition Effective Dates [...] Active 1positive bronchial challenge 2-092x-ray 2013 stable, [id number] x-ray, zkkf3xvxkio 5 utmbj0Vdazuk emphysema per pulmo note per -2011 qvyzeginjpe1ZID negative 9-47-790pjzx (lateral basal segment of the left lower lobe), per CT 01-18-2009 done at [facility]9internal and external per 2011 rknvhmbpugl29csaaupt consult written dexhc59mru CT from [facility], associated with ureteral stone. mild left gioynrlhfrhzou81jul CT from [facility] , ER was notified 13not starting meds due to polypharmacy and xpdioatfcqdpi37Zudycldj by Pulm in [place], stability on repeat CT Chest Sep 2020 per their rvvf75Cal 10mm nodule LUNG-RADS 4B 6on 2007 x-kjx51fo 2009 [id number] DEXA: T-score lowest -3.719Rash developed 07/06/13 Social History Social History Type Response Smoking Status Former smoker; Other: per pt ; entered on: 04/21/18 Sex Male
--- OUTSIDE RECORDS SUMMARY | 2022-09-15 20:10 | XMS_ITS | Continuity of Care Document ---
:1945 Demographics Address [address] [place] [address] Mobile Preferred Language es Marital Status Single Protestant Affiliation Jewish Race Unknown Ethnic Group or Author Organization [facility] Address [address] [place] [address]- Care Team Providers Name Role Phone Cal PRADO, Luz Simeon Primary Care Physician [facility]): [facility] - 12/12/21 [facility] [address] [place] [id number] Attending Physician: Latasha Dumont Admitting Physician: Admtr, Ar8 Referring Physician: Admtr, Ar8 Allergies, Adverse Reactions, Alerts Substance Reaction Severity Status doxycycline dizziness Active cephalexin rash Active gabapentin altered mental state Active varenicline C/O: itching Active Nausea Insomnia traMADol Active Proventil HFA Nausea Active Nicotine Patch1 Bronchospasm Active Nausea Dizzy 1see general med office note 4-3-09; pt reports bronchospasm/shortness of breath & palpitations within 5 minutes of putting on 14 patch that immediately went away after taking off patch Immunizations Given and Recorded Vaccine Date Status Refusal Reason SARS-CoV-2 (COVID-19) mRNA BNT-162b2 vac 10/29/21 Given SARS-CoV-2 (COVID-19) mRNA BNT-162b2 vac 02/03/21 Given SARS-CoV-2 (COVID-19) mRNA BNT-162b2 vac 01/13/21 Given influenza virus vaccine, inactivated 09/25/21 Given influenza virus vaccine, inactivated 09/26/20 Given influenza virus vaccine, inactivated 10/18/18 Given influenza virus vaccine, inactivated1 09/24/17 Given influenza virus vaccine, inactivated 08/28/15 Recorded influenza virus vaccine, inactivated 09/18/14 Given influenza virus vaccine, inactivated 08/18/13 Given influenza virus vaccine, inactivated 12/27/12 Recorded influenza virus vaccine, inactivated2 8/20/12 Given influenza virus vaccine, inactivated3 08/27/11 Given influenza virus vaccine, inactivated4 08/29/10 Given tetanus/diphtheria/pertussis, acel(Tdap) 07/09/20 Recorde d pneumococcal 23-valent vaccine 10/22/19 Recorded tetanus-diphtheria toxoids (Td) 04/21/18 Given tetanus-diphtheria toxoids (Td) 06/22/13 Recorded pneumococcal 13-valent vaccine5 04/02/16 Given Zoster Vaccine Live 09/19/13 Given influ virus vac, H1N1, inactive(oldterm)6 10/14/09 Given FluLaval (oldterm)7 08/21/09 Given Influenza Vaccine (oldterm)8 01/01/09 Given Tet/Diphth/Acel, Pertussis (oldterm)9 04/24/08 Given Influenza Virus Vaccine (oldterm)10 09/15/07 Given Influenza Virus Vaccine (oldterm)11 10/08/06 Given Pneumococcal Vaccine (oldterm)12 10/08/06 Given 1Result Comment: [09/24/2017] [facility] [id number] Note: VIS 7-123Admin Note: VIS given 06/23/11, english spuk4Umqui Note: VIS GIVEN 07/08/10 azproev5Ijoobe Comment: [04/02/2016] VIS in Ecuadorean lnjxn6Xgpck Note: sep 067Admin Note: vis given in Edrfifs2Akomv Note: VIS given in Gvocmqu6Ulfpc Note: VIS IN OUHYQEH73Pwmjg Note: VIS in rbohuat84Oupeh Note: VIS-YUUJH57Nutpz Note: VIS-GIVEN Medications 3cc Leur-Stephanie syringe, 22 g, 1 inch 3cc Leur-Stephanie syringe, 22 g, 1 inch, See Instructions, # 6 each, Refills 3, Tot. Refills 3, Maintenance, use one every two weeks for testosterone inj, 11/06/21 16:52:00 EST, Supply, 160, cm, 11/04/21 9:21:00 EST, Height Start Date: 11/06/21 Status: Orderedalbuterol CFC free 90 mcg/inh inhalation aerosol 1, puffs, Inhalation, 4 times a day, PRN, dx: J45.909, # 1 each, Refills 5, Tot. Refills 5, Maintenance, 06/10/21 15:20:00 EDT, Aerosol, Route to Pharmacy Electronically, [id number], [id number], 160, cm, 05/20/21 14:1... Start Date: 06/10/21 Status: Orderedalbuterol-ipratropium 3 mg-0.5 mg/3 ml inhalation solution 3 mL, Inhalation, 4 times a day, dx asthma J45, COPD J44.9, # 100 each, 11 Refills, Maintenance, 07/09/21 15:08:00 EDT, Solution, [facility], 3 mL Inhalation 4 times a day,Instr:dx asthma J45, COPD J44.9, 160, cm, 07/04/21 9:33:00 EDT, Height,... Start Date: 07/09/21 Status: Orderedbetamethasone topical valerate 0.1% ointment 1 application, Topically, 2 times a day, For severe eczema, # 45 Gm, 11 Refills, Maintenance, 10/29/21 9:52:00 EST, Ointment, [facility], instead of Fluocinonide, 1 application Topically 2 times a day,Instr:For severe eczema, 160, cm, 10/29/21... Start Date: 10/29/21 Status: Orderedcalcium (as carbonate)-vitamin D 500 mg-400 [...] 1 Refills,Maintenance, 07/04/21 9:48:00 EDT, CR Capsule, [facility]/pharmacy #[id number], Partial fill upon patient requestif [...] 54.7, kg, 07/28/19... Start Date: 04/17/21 Status: Orderedlevothyroxine 0.112 mg oral tablet 1 tablet = 112 mcg, By Mouth, Daily, # 90 tablet, 1 Refills, Maintenance, 09/26/21 8:55:00 EDT, Tablet, [facility]/pharmacy #207, dose change 09/10/20, 160, cm, 08/22/21 11:06:00 EDT, Height Start Date: 09/26/21 Status: OrderedmetFORMIN 500 mg oral tablet 1 tablet = 500 mg, By Mouth, Daily, with meals, # 90 tablet, 3 Refills, Maintenance, 05/15/21 10:18:00 EDT, Tablet, [facility]/pharmacy #207, 160, cm, 02/13/21 13:46:00 EDT, Height, 54.7, kg, 07/28/19 7:47:00 EDT, Dry Weight Start Date: 05/15/21 Status: Orderedmirtazapine 7.5 mg oral tablet 1 tablet = 7.5 mg, By Mouth, Daily at bedtime, for appetite, # 90 tablet, 3 Refills, Maintenance, 05/15/21 10:16:00 EDT, [id number], instructions in Ecuadorean, 160, cm, 02/13/21 13:46:00 EDT, Height, 54.7, [...] 3 Refills, Maintenance, 07/04/21 9:45:00 EDT, Tablet, [id number], instructions in english, 160, cm, 07/04/21 9:33:00 EDT,Height, 54.7, kg, 07/28/19 7:47:00 EDT, Dry Weight Start Date: 07/04/21 Status: OrderedNebulizer Machine Nebulizer Machine, See Instructions, # 1 each, Refills 0, Tot. Refills 0, Maintenance, Use Up To 4x Daily for Cough, SOB/Wheezing Dx: Asthma (J45), COPD (J44.9), Emphysema (J43.9) Duration: Lifetime, 11/27/21 10:30:00 EST, Supply Start Date: 11/27/21 Status: Orderednicotine 4 mg oral transmucosal lozenge [...] 11 Refills, Maintenance, 11/01/20 11:26:00 EST, Patch, [facility]/pharmacy #[id number], 165.1, cm, 09/26/20 9:02:00 EDT, Height, 54.7, kg, 07/28/19 7:47:00 EDT, Dry Weight Start Date: 11/01/20 Stop Date: 10/27/21 Status: OrderedNubulizer Supplies (Tubing, Mouth Piece/Mask) Nubulizer Supplies (Tubing, Mouth Piece/Mask), See Instructions, # 2 each, Refills 11, Tot. Refills 11, Maintenance, Use Up To 4x Daily for Cough, SOB/Wheezing Dx: Asthma (J45), COPD (J44.9), Emphysema(J43.9) Duration: Lifetime, 11/27/21 10:35:00... Start Date: 11/27/21 Status: Orderedomeprazole 20 mg oral enteric coated capsule 1 capsule = 20 mg, By Mouth, Daily, # 90 capsule, 3 Refills, Soft Stop, 08/22/21 11:44:00 EDT, [facility]/pharmacy #[id number], 160, cm, 08/22/21 11:06:00 EDT, Height Start Date: 08/22/21 Status: OrderedpredniSONE 10 mg oral tablet TOME NAZ TABLETA TODOS LOS D Start Date: 08/22/21 Status: OrderedSingulair 10 mg oral tablet 10 mg, 1, tablet, By Mouth, Daily in PM, # 90 tablet, Refills 3, Tot. Refills 3, Maintenance, 05/15/21 10:17:00 EDT, Route to Pharmacy Electronically, [facility]/pharmacy #[id number], 160, cm, 02/13/21 13:46:00 EDT, Height, 54.7, kg, 07/28/19 7:47:00 EDT, Dry Weight Start Date: 05/15/21 Status: OrderedTestosterone Cypionate 200 mg/mL intramuscular solution = 100 mg, Intramuscular, Every 14 days, # 2 mL, 4 Refills, Maintenance, 11/06/21 17:01:00 EST, [facility]/pharmacy #[id number], 160, cm, 11/04/21 9:21:00 EST, Height Start Date: 11/06/21 Status: Orderedtheophylline 400 mg/24 hours oral tablet, extended release 1 tablet = 400 mg, By Mouth, Every 24 hours, # 180 tablet, 0 Refills, Maintenance, 10/31/21 9:34:00 EST, ER Tablet, Partial fill upon patient request if the prescription is for a schedule II opioid drug. Start Date: 10/31/21 Status: OrderedTrelegy Ellipta 200 mcg-62.5 mcg-25 mcg/inh inhalation powder 1 puffs, By Mouth, Daily, TOME NAZ INHALACI N POR V A ORAL TODOS LOS D , # 1 each, 11 Refills, Maintenance, 08/22/21 11:46:00 EDT, Powder, [facility]/pharmacy #[id number], Partial fill upon patient request if theprescription is for a schedule II opioid drug., 1... Start Date: 08/22/21 Status: OrderedVitamin D3 5000 intl units oral capsule 1 capsule = 5,000 International_Units, By Mouth, Daily, with food, # 30 capsule, 6 Refills, Maintenance, 04/14/21 10:42:00 EDT, Capsule, [facility]/pharmacy #[id number], Please put instructions in Ecuadorean, 160, cm,02/13/21 13:46:00 EDT, Height, 54.7, kg, [...] Hydronephrosis(Confirmed)10, 11 01/18/09 Active Hyperlipidemia(Confirmed) 04/2010 Active Hypothyroidism(Confirmed) Active Insomnia(Confirmed) Active Kidney stone(Confirmed)12, 13 01/18/09 Active DJD (degenerative joint disease), Active lumbar(Confirmed) Lung nodule(Confirmed) Active Hypogonadism male(Confirmed) Active Microalbuminuria(Confirmed)14 01/03/19 Active Multiple lung nodules on 09/13/[address](Confirmed)15, 16 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 Osteoarthritis of knee(Confirmed)18 12/2009 Active Osteoporosis(Confirmed)2011 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 mild left rwezqmahwgawyv11Aysqya stone Oct 2021, seeing pizkwlj87nlq CT from [facility] , ER was notified 14not starting meds due to polypharmacy and yxuhjkzqxojvq32Ooyajnqe by Pulm in [place], stability on repeat CT Chest Sep 2020 per their tosh53Zsq 10mm nodule LUNG-RADS 4B 7on 2007 x-yqy25hs 2009 [id number] DEXA: T-score lowest -3.720Rash developed 07/06/13 Social History Social History Type Response Smoking Status Former smoker; Other: per pt ; entered on: 04/21/18 Sex Male
--- OUTSIDE RECORDS SUMMARY | 2022-09-15 20:10 | XMS_ITS | Continuity of Care Document ---
:1945 Demographics Address [address] [place] [address] Mobile Preferred Language es Marital Status Single Gnosticism Affiliation Hindu Race White Ethnic Group or Author Organization [facility] Address [address] [place] [address]- Care Team Providers Name Role Phone Cal PRADO, Luz Simeon Primary Care Physician [facility] - 08/22/21 [facility] [address] [place] [id number] Allergies, Adverse Reactions, Alerts Substance Reaction Severity [...] Vaccine (oldterm)12 10/08/06 Given 1Result Comment: [09/24/2017] [facility] [id number] Note: VIS 7-123Admin Note: VIS given 06/23/11, english pcim6Reufe Note: VIS GIVEN 07/08/10 erwogsy4Ktzutb Comment: [04/02/2016] VIS in Filipino gxdmc6Ppsru Note: augdmin Note: vis given in Jvcoyrb3Xvhjz Note: VIS given in Sqhbzwj0Wqofm Note: VIS IN ZLYWCMB99Cidyp Note: VIS in dtkyppz55Jdgzq Note: VIS-BOFHK89Hzqui Note: VIS-GIVEN Medications albuterol CFC free 90 mcg/inh inhalation aerosol 1, puffs, Inhalation, 4 times a day, PRN, dx: J45.909, # 1 each, Refills 5, Tot. Refills 5, Maintenance, 06/10/21 15:20:00 EDT, Aerosol, Route to Pharmacy Electronically, [id number], [facility]/pharmacy #[id number], 160, cm, 05/20/21 14:1... Start [...] 2 Refills, Maintenance, 07/04/21 9:57:00 EDT, Ointment, [id number], instead of Fluocinonide, 1 application Topically 2 timesa day,Instr:For severe eczema, 160, cm, 07/04/21... Start Date: 07/04/21 Status: Orderedcalcium (as carbonate)-vitamin D 500 mg-400 intl units oral tablet 1 tablet, By Mouth, 2 times a day, # 60 tablet, 11 Refills, Maintenance, 12/10/20 11:55:00 EST, Tablet, [id number], Partial fill upon patient request if [...] 1 Refills,Maintenance, 07/04/21 9:48:00 EDT, CR Capsule, [facility]/pharmacy #2071, Partial fill upon patient requestif [...] 3 Refills, Maintenance, 09/10/20 8:40:00 EDT, Tablet, [facility]/pharmacy #2071, dose change 09/10/20, 165.1, cm, 01/02/20 14:39:00 EST, Height, 54.7, kg, 07/28/19 7:47:00 EDT, Dry Weight Start Date: 09/10/20 Status: OrderedmetFORMIN 500 mg oral tablet 1 tablet = 500 mg, By Mouth, Daily, with meals, # 90 tablet, 3 Refills, Maintenance, 05/15/21 10:18:00 EDT, Tablet, [facility]/pharmacy #207, 160, cm, 02/13/21 13:46:00 EDT, Height, 54.7, kg, 07/28/19 7:47:00 EDT, Dry Weight Start Date: 05/15/21 Status: Orderedmirtazapine 7.5 mg oral tablet 1 tablet = 7.5 mg, By Mouth, Daily at bedtime, for appetite, # 90 tablet, 3 Refills, Maintenance, 05/15/21 10:16:00 EDT, [id number], instructions in Filipino, 160, cm, 02/13/21 13:46:00 EDT, Height, 54.7, [...] 3 Refills, Maintenance, 07/04/21 9:45:00 EDT, Tablet, [facility]/pharmacy #2071, instructions in english, 160, cm, 07/04/21 9:33:00 EDT,Height, 54.7, kg, 07/28/19 7:47:00 EDT, Dry Weight Start Date: 07/04/21 Status: Orderednicotine 4 mg oral transmucosal lozenge [...] Refills, Maintenance, 11/01/20 11:26:00 EST, Patch, [id number], 165.1, cm, 09/26/20 9:02:00 EDT, Height, 54.7, kg, 07/28/19 7:47:00 EDT, Dry Weight Start Date: 11/01/20 Stop Date: 10/27/21 Status: Orderedomeprazole 20 mg oral enteric coated capsule 1 capsule = 20 mg, By Mouth, Daily, # 90 capsule, 3 Refills, Soft Stop, 08/22/21 11:44:00 EDT, [id number], 160, cm, 08/22/21 11:06:00 EDT, Height Start Date: 08/22/21 Status: OrderedpredniSONE 10 mg oral tablet TOME NAZ VALENTEA TOLAKSHMI LOS D Start Date: 08/22/21 Status: OrderedSingulair 10 mg oral tablet 10 mg, 1, tablet, By Mouth, Daily in PM, # 90 tablet, Refills 3, Tot. Refills 3, Maintenance, 05/15/21 10:17:00 EDT, Route to Pharmacy Electronically, [facility]/pharmacy #[id number], 160, cm, 02/13/21 13:46:00 EDT, Height, 54.7, kg, 07/28/19 7:47:00 EDT, Dry Weight Start Date: 05/15/21 Status: OrderedTrelegy Ellipta 200 mcg-62.5 mcg-25 mcg/inh inhalation powder 1 puffs, By Mouth, Daily, TOME NAZ INHALACI N POR V A ORAL TODOS LOS D , # 1 each, 11 Refills, Maintenance, 08/22/21 11:46:00 EDT, Powder, [facility]/pharmacy #[id number], Partial fill upon patient request if theprescription is for a schedule II opioid drug., 1... Start Date: 08/22/21 Status: OrderedVitamin D3 5000 intl units oral capsule 1 capsule = 5,000 International_Units, By Mouth, Daily, with food, # 30 capsule, 6 Refills, Maintenance, 04/14/21 10:42:00 EDT, Capsule, [facility]/pharmacy #[id number], Please put instructions in Filipino, 160, cm,02/13/21 13:46:00 EDT, Height, 54.7, kg, [...] Active 1positive bronchial challenge 2-092x-ray 2013 stable, yhfweyrojv87478 x-ray, swfy2qmdzbs 5 laemd5Snewli emphysema per pulmo note per ywmmfwwucvq4CAL negative 3-77-927vdvw (lateral basal segment of the left lower lobe), per CT 01-18-2009 done at [facility]9internal and external per 2011 rsudoqzfjsj35auuwuak consult written miydf44sfb CT from [facility], associated with ureteral stone. mild left xviuxlatwtkpvp28xah CT from [facility] , ER was notified 13not starting meds due to polypharmacy and hnzqweitxhwgk43Ocwaghdv by Pulm in [place], stability on repeat CT Chest Sep 2020 per their eebv64Ual 10mm nodule LUNG-RADS 4B 6on 2007 x-njq65ks 2009 [id number] DEXA: T-score lowest -3.719Rash developed 07/06/13 Social History Social History Type Response Smoking Status Former smoker; Other: per pt ; entered on: 04/21/18 Sex Male
--- OUTSIDE RECORDS SUMMARY | 2022-09-15 20:10 | XMS_ITS | Continuity of Care Document ---
:1945 Demographics Address [address] [place] [address] Mobile Preferred Language es Marital Status Single Jew Affiliation Anglican Race Unknown Ethnic Group or Author Organization [facility] Address [address] [place] [address], [address] [place] [address]- Care Team Providers Name Role Phone Cal PRADO, Luz Simeon Primary Care Physician [facility] - 05/07/[address], [address] [place] [address]- Allergies, Adverse Reactions, Alerts Substance Reaction Severity [...] Vaccine (oldterm)12 10/08/06 Given 1Result Comment: [09/24/2017] [facility] [id number] Note: VIS 7-123Admin Note: VIS given 06/23/11, fijian gues0Hijdn Note: VIS GIVEN 07/08/10 umssthr8Bmxiai Comment: [04/02/2016] VIS in Greek ipuyc8Altvw Note: sep 067Admin Note: vis given in Qwtucjm7Dcfyj Note: VIS given in Yktfzpo6Ubkmd Note: VIS IN NCCXMZQ05Kuone Note: VIS in pmvthat02Uttfe Note: VIS-BZMCL42Obmzd Note: VIS-GIVEN Medications acetaminophen 500 mg oral capsule 2 capsule = 1,000 mg, By Mouth, 3 times a day, PRN for pain, not to exceed 3000 mg/day Greek instructions please, # 120 capsule, 0 Refills, Maintenance, 01/02/20 14:40:00 EST, Capsule, [facility], 165.1, cm, 12/22/19 10:10:00 EST, Height, 5... Start Date: 01/02/20 Status: Orderedalbuterol CFC free 90 mcg/inh inhalation aerosol 1, puffs, Inhalation, 4 times a day, PRN, # 1 each, Refills 11, Tot. Refills 11, Maintenance, 04/08/20 10:06:00 EDT, Aerosol, Route to Pharmacy Electronically, [id number], [facility], 165.1, cm, 01/02/20 14:39:00 EST,... Start Date: 04/08/20 Status: Orderedalbuterol-ipratropium 3 mg-0.5 mg/3 ml inhalation solution 3 mL, Inhalation, 4 times a day, dx asthma J45, # 100 each, 11 Refills, Maintenance, 04/08/20 14:30:00 EDT, Solution, [id number], 3 mL Inhalation [...] 11 Refills, Maintenance, 12/10/20 11:55:00 EST, Tablet, [facility]/pharmacy #207, Partial fill upon patient request if [...] 04/17/21 Status: OrderedlevoFLOXacin 500 mg oral tablet TOMRosamaria VOGEL TOLAKSHMI LOS D Start Date: 02/13/21 Status: Orderedlevothyroxine 0.112 mg oral tablet 1 tablet = 112 mcg, By Mouth, Daily, # 90 tablet, 3 Refills, Maintenance, 09/10/20 8:40:00 EDT, Tablet, [facility]/pharmacy #2071, dose change 09/10/20, 165.1, cm, 01/02/20 14:39:00 EST, Height, 54.7, kg, 07/28/19 7:47:00 EDT, Dry Weight Start Date: 09/10/20 Status: OrderedmetFORMIN 500 mg oral tablet 1 tablet = 500 mg, By Mouth, Daily, with meals, # 30 tablet, 11 Refills, Maintenance, 03/21/20 8:36:00 EDT, Tablet, [facility]/pharmacy #2071, 165.1, cm, 01/02/20 14:39:00 EST, Height, 54.7, kg, 07/28/19 7:47:00 EDT, Dry Weight Start Date: 03/21/20 Status: Orderedmirtazapine 7.5 mg oral tablet 1 tablet = 7.5 mg, By Mouth, Daily at bedtime, for appetite, # 30 tablet, 11 Refills, Maintenance, 12/22/19 10:17:00 EST, [facility], instructions in Greek, 165.1, cm, 12/22/19 10:10:00 EST, Height, 54.7, [...] 13:38:00 EDT, Tablet, [facility], instructions in fijian, 165.1, cm, 01/02/20 14:39:00 EST, Height, 54.7, [...] 11 Refills, Maintenance, 11/01/20 11:26:00 EST, Patch, [facility]/pharmacy #2070, 165.1, cm, 09/26/20 9:02:00 EDT, Height, 54.7, kg, 07/28/19 7:47:00 EDT, Dry Weight Start Date: 11/01/20 Stop Date: 10/27/21 Status: Orderedomeprazole 20 mg oral enteric coated capsule 1 capsule = 20 mg, By Mouth, Daily, # 90 capsule, 3 Refills, Soft Stop, 08/18/20 13:37:00 EDT, [facility]/pharmacy #2070, 165.1, cm, 01/02/20 14:39:00 EST, Height, 54.7, kg, 07/28/19 7:47:00 EDT, Dry Weight Start Date: 08/18/20 Status: OrderedpredniSONE 10 mg oral tablet 1 tablet = 10 mg, By Mouth, Daily, # 90 tablet, 3 Refills, Maintenance, 12/05/20 10:03:00 EST, [facility]/pharmacy #2070, 160, cm, 12/03/20 9:29:00 EST, [...] 12/22/19 10:33:00 EST, Route to Pharmacy Electronically, [facility]/pharmacy #2070, 165.1, cm, 12/22/19 10:10:00 EST, [...] 6 Refills, Maintenance, 04/14/21 10:42:00 EDT, Capsule, [id number], Please put instructions in Greek, 160, cm,02/13/21 13:46:00 EDT, Height, 54.7, kg, [...] Active 1positive bronchial challenge 2-092x-ray 2013 stable, [id number] x-ray, jwtr9tjfoeg 5 wsojd0Dwddaz emphysema per pulmo note per -2011 sqjwizfdfph3ZTL negative 6-04-136ssxc (lateral basal segment of the left lower lobe), per CT 01-18-2009 done at [facility]9internal and external per 2011 cqzylhlpohr20crlfglp consult written osfbk56igp CT from [facility], associated with ureteral stone. mild left ulfhsceouogwog81weg CT from [facility] , ER was notified 13not starting meds due to polypharmacy and mxqwnkwlhcahg17Fiofrpjs by [facility] in [place], stability on repeat CT Chest Sep 2020 per their vhtq07Uiz 10mm nodule LUNG-RADS 4B 6on 2007 x-nam16en 2009 [id number] DEXA: T-score lowest -3.719Rash developed 07/06/13 Social History Social History Type Response Smoking Status Former smoker; Other: per pt ; entered on: 04/21/18 Sex Male
--- OUTSIDE RECORDS SUMMARY | 2022-09-15 20:10 | XMS_ITS | Continuity of Care Document ---
:1945 Demographics Address [address] [place] [address] Mobile Preferred Language es Marital Status Single Anabaptist Affiliation Hinduism Race Unknown Ethnic Group or Author Organization [facility] Address [address] [place] [address]- Care Team Providers Name Role Phone Cal PRADO, Luz Simeon Primary Care Physician [facility] - 04/22/[address] [address]- [facility] Attending Physician: Sharona Pedroza NP Allergies, Adverse Reactions, Alerts Substance Reaction Severity [...] Status Refusal Reason influenza virus vaccine, inactivated 10/18/18 Given influenza [...] Vaccine (oldterm)12 10/08/06 Given 1Result Comment: [09/24/2017] [facility] [place]NOTE 2] [id number] Note: VIS 7-123Admin Note: VIS given 06/23/11, gibraltarian jtox8Klewg Note: VIS GIVEN 07/08/10 vllftbo2Rjmdzy Comment: [04/02/2016] VIS in Albanian xowuy0Owpru Note: sep 067Admin Note: vis given in Xqiiwri9Sbxuy Note: VIS given in Kczkerc4Wgtea Note: VIS IN PTLCVII70Nyczy Note: VIS in slkrwaa78Gqmtz Note: VIS-TWUWK22Kghvc Note: VIS-GIVEN Medications Accu-Chek Compact 17-Strip Drum [...] for pain, not to exceed 3000 mg/day Albanian instructions please, # 120 capsule, 0 Refills, Maintenance, 01/02/20 14:40:00 EST, Capsule, [facility]/pharmacy #[id number], 165.1, cm, 12/22/19 10:10:00 EST, Height, [...] 10:06:00 EDT, Aerosol, Route to Pharmacy Electronically, [id number], [facility]/pharmacy #2071, 165.1, cm, 01/02/20 14:39:00 EST,... Start Date: 04/08/20 Status: Orderedalbuterol-ipratropium 3 mg-0.5 mg/3 ml inhalation solution 3 mL, Inhalation, 4 times a day, dx asthma J45, # 100 each, 11 Refills, Maintenance, 04/08/20 14:30:00 EDT, Solution, [facility]/pharmacy #2071, 3 mL Inhalation 4 times a day,Instr:dx asthma J45, 165.1, cm, 01/02/20 14:39:00 EST, Height, 54.7, kg, 07/28/19 7... Start Date: 04/08/20 Status: Orderedatorvastatin 40 mg oral tablet TOME NAZ TABLETA TODOS LOS D? Start Date: 01/02/20 Status: Orderedcalcium (as citrate)-vitamin D 315 mg-250 [...] Maintenance, 01/03/19 8:46:30 EST, Cream, instructions in Indonesian please, 1 application Topically 2 times a [...] 5 Refills, Maintenance, 12/22/19 10:21:00 EST, Cream, [facility]/pharmacy #207, 1 application Topically 2 times a day, 165.1, cm, 12/22/19 10:10:00 EST, Height, 54.7, kg, 07/28/19 7:47:00 EDT, Dry Weight Start Date: 12/22/19 Status: Orderedfluticasone-salmeterol 232 mcg-14 mcg/inh inhalation powder 1 inhalation, Inhalation, 2 times a day, rinse mouth and throat after use, # 1 each, 11 Refills, Maintenance, 03/21/20 8:53:00 EDT, Powder, [facility]/pharmacy #2070, 1 inhalation Inhalation 2 times a day,Instr:rinse mouth and throat after use, 165.1, cm, 02... Start Date: 03/21/20 Status: Orderedhydrocortisone 1% topical cream 1 application, Topically, 2 times a day, # 45 Gm, 3 Refills, Maintenance, 09/22/19 8:51:47 EDT, Cream, 1 application Topically 2 times a day Start Date: 09/22/19 Status: Orderedlevothyroxine 125 mcg (0.125 mg) oral tablet 1 tablet = 125 mcg, By Mouth, Daily, # 90 tablet, 3 Refills, Maintenance, 07/21/19 13:28:19 EDT, Tablet Start Date: 07/21/19 Status: OrderedmetFORMIN 500 mg oral tablet 1 tablet = 500 mg, By Mouth, Daily, with meals, # 30 tablet, 11 Refills, Maintenance, 03/21/20 8:36:00 EDT, Tablet, [facility]/pharmacy #207, 165.1, cm, 01/02/20 14:39:00 EST, Height, 54.7, kg, 07/28/19 7:47:00 EDT, Dry Weight Start Date: 03/21/20 Status: Orderedmirtazapine 7.5 mg oral tablet 1 tablet = 7.5 mg, By Mouth, Daily at bedtime, for appetite, # 30 tablet, 11 Refills, Maintenance, 12/22/19 10:17:00 EST, [facility]/pharmacy #[id number], instructions in Albanian, 165.1, cm, 12/22/19 10:10:00 EST, Height, 54.7, kg, 07/28/19 7:47:00 EDT, Dry Weight Start Date: 12/22/19 Status: Orderedmultivitamin Multiple Vitamins oral capsule 1 capsule, By Mouth, Daily, # 90 capsule, 3 Refills, Maintenance, 12/22/19 10:33:00 EST, Capsule, [facility]/pharmacy #207, 1 capsule By Mouth Daily, 165.1, cm, 12/22/19 10:10:00 EST, Height, 54.7, kg, 07/28/19 7:47:00 EDT, Dry Weight Start Date: 12/22/19 Status: Orderednabumetone 500 mg oral tablet 1 tablet = 500 mg, By Mouth, 2 times a day, for knee pain, # 60 tablet, 3 Refills, Maintenance, 08/02/19 11:35:19 EDT, Tablet, instructions in gibraltarian Start Date: 08/02/19 Status: OrderedNebulizer/Compressor See Instructions, # 1 each, Maintenance, D: COPD severe, Gold Ct 4 For use PRN Q4hr for shortness ofbreath, 12/22/19 10:19:00 EST, Compound Start Date: 12/22/19 Status: Orderedomeprazole 20 mg oral enteric coated capsule 1 capsule = 20 mg, By Mouth, Daily, # 90 capsule, 3 Refills, Soft Stop, 12/22/19 10:33:00 EST, [facility], 165.1, cm, 12/22/19 10:10:00 EST, Height, 54.7, kg, 07/28/19 7:47:00 EDT, Dry Weight Start Date: 12/22/19 Status: OrderedpredniSONE 10 mg oral tablet 1 tablet = 10 mg, By Mouth, Daily, # 90 tablet, 3 Refills, Maintenance, 03/16/20 9:39:00 EDT, [facility], 165.1, cm, 01/02/20 14:39:00 [...] 12/22/19 10:33:00 EST, Route to Pharmacy Electronically, [facility]/pharmacy #[id number], 165.1, cm, 12/22/19 10:10:00 EST, Height, [...] Active Osteoarthritis of knee(Confirmed)16 12/2009 Active Osteoporosis(Confirmed)17 2011 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 mild left gasnwyeffskzya91hqs CT from [facility] , ER was notified 13not starting meds due to polypharmacy and sybajtezscyta69Gcc 10mm nodule LUNG-RADS 4B 5on 2007 x-ksp22vk 2009 [id number] DEXA: T-score lowest -3.718Rash developed 07/06/13 Social History Social History Type Response Smoking Status Former smoker; Other: per pt ; entered on: 04/21/18 Sex Male
--- OUTSIDE RECORDS SUMMARY | 2022-09-15 20:11 | XMS_ITS | Continuity of Care Document ---
:1945 Demographics Address [address] [place] [address] Mobile Preferred Language es Marital Status Single Episcopalian Affiliation Evangelical Race Unknown Ethnic Group or Author Organization [facility] Address [address] [place] [address]- Care Team Providers Name Role Phone Cal PRADO, Luz Simeon Primary Care Physician [facility]): [facility]20 - 04/20/20 [facility] [address] [place] [id number]- [facility] Attending Physician: Latasha Dumont Admitting Physician: Latasha Dumont Referring Physician: AdmLatasha garrison Allergies, Adverse Reactions, Alerts Substance Reaction Severity [...] (oldterm)12 10/08/06 Given 1Result Comment: [09/24/2017] [facility] [id number] Note: VIS 7-123Admin Note: VIS given 06/23/11, tristanian lpll5Vfeiu Note: VIS GIVEN 07/08/10 rvrwmrz3Boqpcn Comment: [04/02/2016] VIS in Argentine shjss5Lawzm Note: sep 067Admin Note: vis given in Cizcmjx4Wubke Note: VIS given in Ioaqbbr9Ahxwt Note: VIS IN BMWFINP63Pbkqm Note: VIS in hsubsuq37Ylqen Note: VIS-DQCWV21Kjkso Note: VIS-GIVEN Medications Accu-Chek Compact 17-Strip Drum [...] for pain, not to exceed 3000 mg/day Argentine instructions please, # 120 capsule, 0 Refills, [...] 10:06:00 EDT, Aerosol, Route to Pharmacy Electronically, [id number], [facility]/pharmacy #2071, 165.1, cm, 01/02/20 14:39:00 EST,... Start Date: 04/08/20 Status: Orderedalbuterol-ipratropium 3 mg-0.5 mg/3 ml inhalation solution 3 mL, Inhalation, 4 times a day, dx asthma J45, # 100 each, 11 Refills, Maintenance, 04/08/20 14:30:00 EDT, Solution, [facility]/pharmacy #2071, 3 mL Inhalation 4 times [...] Maintenance, 01/03/19 8:46:30 EST, Cream, instructions in Slovenian please, 1 application Topically 2 times a [...] 5 Refills, Maintenance, 12/22/19 10:21:00 EST, Cream, [facility]/pharmacy #2071, 1 application Topically 2 times a day, 165.1, cm, 12/22/19 10:10:00 EST, Height, 54.7, kg, 07/28/19 7:47:00 EDT, Dry Weight Start Date: 12/22/19 Status: Orderedfluticasone-salmeterol 232 mcg-14 mcg/inh inhalation powder 1 inhalation, Inhalation, 2 times a day, rinse mouth and throat after use, # 1 each, 11 Refills, Maintenance, 03/21/20 8:53:00 EDT, Powder, [facility]/pharmacy #2071, 1 inhalation Inhalation 2 times [...] Refills, Maintenance, 03/21/20 8:36:00 EDT, Tablet, [facility]/pharmacy #207, 165.1, cm, 01/02/20 14:39:00 EST, Height, 54.7, kg, 07/28/19 7:47:00 EDT, Dry Weight Start Date: 03/21/20 Status: Orderedmirtazapine 7.5 mg oral tablet 1 tablet = 7.5 mg, By Mouth, Daily at bedtime, for appetite, # 30 tablet, 11 Refills, Maintenance, 12/22/19 10:17:00 EST, [facility], instructions in Argentine, 165.1, cm, 12/22/19 10:10:00 EST, Height, 54.7, kg, 07/28/19 7:47:00 EDT, Dry Weight Start Date: 12/22/19 Status: Orderedmultivitamin Multiple Vitamins oral capsule 1 capsule, By Mouth, Daily, # 90 capsule, 3 Refills, Maintenance, 12/22/19 10:33:00 EST, Capsule, [facility], 1 capsule By Mouth Daily, 165.1, cm, 12/22/19 10:10:00 EST, Height, 54.7, kg, 07/28/19 7:47:00 EDT, Dry Weight Start Date: 12/22/19 Status: Orderednabumetone 500 mg oral tablet 1 tablet = 500 mg, By Mouth, 2 times a day, for knee pain, # 60 tablet, 3 Refills, Maintenance, 08/02/19 11:35:19 EDT, Tablet, instructions in tristanian Start Date: 08/02/19 Status: OrderedNebulizer/Compressor See Instructions, [...] 10:33:00 EST, Route to Pharmacy Electronically, [facility]/pharmacy #2071, 165.1, cm, 12/22/19 10:10:00 EST, [...] Active 1positive bronchial challenge 2-092x-ray 2013 stable, fccfjzcfki01426 x-ray, ihmm5pjmxga 5 jbqae7Vlnxau emphysema per pulmo note per vgreabyicmu7LAL negative 9-66-009lmho (lateral basal segment of the left lower lobe), per CT 01-18-2009 done at [facility]9internal and external per 2011 bkexjtxtobm46jlgsqit consult written pxppx26srk CT from [facility], associated with ureteral stone. mild left lorbmkikdyowhf14srq CT from [facility] , ER was notified 13not starting meds due to polypharmacy and aqkadqugoyuus66Kba 10mm nodule LUNG-RADS 4B 5on 2007 x-zpr06ln 2009 [id number] DEXA: T-score lowest -3.718Rash developed 07/06/13 Social History Social History Type Response Smoking Status Former smoker; Other: per pt ; entered on: 04/21/18 Sex Male
--- OUTSIDE RECORDS SUMMARY | 2022-09-15 20:11 | XMS_ITS | Continuity of Care Document ---
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 Simeon Primary Care Physician [facility]): 04/15/20 - 05/15/[address] [address]- [facility] Attending Physician: Latasha Dumont [...] FluLaval (oldterm)7 08/21/09 Given Influenza Vaccine (oldterm)8 2/3/09 Given Tet/Diphth/Acel, Pertussis (oldterm)9 04/24/08 Given Influenza Virus Vaccine (oldterm)10 09/15/07 Given Influenza Virus Vaccine (oldterm)11 10/08/06 Given Pneumococcal Vaccine (oldterm)12 10/08/06 Given 1Result Comment: [09/24/2017] [facility] [id number] Note: VIS 7-123Admin Note: VIS given 06/23/11, irish anqj9Uuxdw Note: VIS GIVEN 07/08/10 hamfclc4Telaak Comment: [04/02/2016] VIS in Scottish vcibw1Ozbje Note: sep 067Admin Note: vis given in Wjwmucf5Tdcnx Note: VIS given in Zadjcbi8Bmjot Note: VIS IN UKNOOJT99Rrqmf Note: VIS in unmijql93Cmafn Note: VIS-ECBPK92Nzkov Note: VIS-GIVEN Medications Accu-Chek Compact 17-Strip Drum [...] for pain, not to exceed 3000 mg/day Scottish instructions please, # 120 capsule, 0 Refills, [...] 10:06:00 EDT, Aerosol, Route to Pharmacy Electronically, [id number], [facility]/pharmacy #2071, 165.1, cm, 01/02/20 14:39:00 EST,... Start Date: 04/08/20 Status: Orderedalbuterol-ipratropium 3 mg-0.5 mg/3 ml inhalation solution 3 mL, Inhalation, 4 times a day, dx asthma J45, # 100 each, 11 Refills, Maintenance, 04/08/20 14:30:00 EDT, Solution, [facility]/pharmacy #2071, 3 mL Inhalation 4 times a day,Instr:dx asthma J45, 165.1, cm, 01/02/20 14:39:00 EST, Height, 54.7, kg, 07/28/19 7... Start Date: 04/08/20 Status: Orderedatorvastatin 40 mg oral tablet TOME NAZ TABLETA TODOS LOS D? Start Date: 01/02/20 Status: Orderedbetamethasone topical valerate 0.1% ointment 1 application, Topically, 2 times a day, For severe eczema, # 45 Gm, 2 Refills, Maintenance, 04/29/20 14:00:00 EDT, Ointment, [facility]/pharmacy #2071, replaced Fluocinonide, 1 application Topically [...] Maintenance, 01/03/19 8:46:30 EST, Cream, instructions in Panamanian please, 1 application Topically 2 times a [...] 5 Refills, Maintenance, 12/22/19 10:21:00 EST, Cream, [facility]/pharmacy #2071, 1 application Topically 2 times a day, 165.1, cm, 12/22/19 10:10:00 EST, Height, 54.7, kg, 07/28/19 7:47:00 EDT, Dry Weight Start Date: 12/22/19 Status: Orderedfluticasone-salmeterol 232 mcg-14 mcg/inh inhalation powder 1 inhalation, Inhalation, 2 times a day, rinse mouth and throat after use, # 1 each, 11 Refills, Maintenance, 03/21/20 8:53:00 EDT, Powder, [facility]/pharmacy #2071, 1 inhalation Inhalation 2 times [...] 11 Refills, Maintenance, 03/21/20 8:36:00 EDT, Tablet, [facility], 165.1, cm, 01/02/20 14:39:00 EST, Height, 54.7, kg, 07/28/19 7:47:00 EDT, Dry Weight Start Date: 03/21/20 Status: Orderedmirtazapine 7.5 mg oral tablet 1 tablet = 7.5 mg, By Mouth, Daily at bedtime, for appetite, # 30 tablet, 11 Refills, Maintenance, 12/22/19 10:17:00 EST, [facility], instructions in Scottish, 165.1, cm, 12/22/19 10:10:00 EST, Height, 54.7, kg, 07/28/19 7:47:00 EDT, Dry Weight Start Date: 12/22/19 Status: Orderedmultivitamin Multiple Vitamins oral capsule 1 capsule, By Mouth, Daily, # 90 capsule, 3 Refills, Maintenance, 12/22/19 10:33:00 EST, Capsule, [facility]/pharmacy #2070, 1 capsule By Mouth Daily, 165.1, cm, 12/22/19 10:10:00 EST, Height, 54.7, kg, 07/28/19 7:47:00 EDT, Dry Weight Start Date: 12/22/19 Status: Orderednabumetone 500 mg oral tablet 1 tablet = 500 mg, By Mouth, 2 times a day, for knee pain, # 60 tablet, 3 Refills, Maintenance, 08/02/19 11:35:19 EDT, Tablet, instructions in irish Start Date: 08/02/19 Status: OrderedNebulizer/Compressor See Instructions, [...] tablet, 3 Refills, Maintenance, 03/16/20 9:39:00 EDT, [facility]/pharmacy #2071, 165.1, cm, 01/02/20 14:39:00 EST, Height, [...] 12/22/19 10:33:00 EST, Route to Pharmacy Electronically, [facility]/pharmacy #2071, 165.1, cm, 12/22/19 10:10:00 EST, [...] Active 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 Heartburn(Confirmed) Active Hemorrhoid(Confirmed)2011 Active Hydronephrosis(Confirmed)10, 11 01/18/09 Active Hyperlipidemia(Confirmed) 04/2010 [...] Active 1positive bronchial challenge 2-092x-ray 2013 stable, qokahaeflg80760 x-ray, clyc9juakfr 5 tveyn7Hygmmp emphysema per pulmo note per ypxmaeqtdiq5ANB negative 0-97-110fnqq (lateral basal segment of the left lower lobe), per CT 01-18-2009 done at [facility]9internal and external per 2011 quhwhcqvcdi50tkikmce consult written joxah29ari CT from [facility], associated with ureteral stone. mild left ithatmwltosgyg27fjw CT from [facility] , ER was notified 13not starting meds due to polypharmacy and xxghttyutkbwg67Hew 10mm nodule LUNG-RADS 4B 5on 2007 x-cgl53rv 2009 [id number] DEXA: T-score lowest -3.718Rash developed 07/06/13 Social History Social History Type Response Smoking Status Former smoker; Other: per pt ; entered on: 04/21/18 Sex Male
--- OUTSIDE RECORDS SUMMARY | 2022-09-15 20:11 | XMS_ITS | Continuity of Care Document ---
:1945 Demographics Address [address] [place] [address] Mobile Preferred Language es Marital Status Single Alevism Affiliation Mandaen Race White Ethnic Group or Author Organization [facility] Address [address] [place] [address]- Care Team Providers Name Role Phone Cal PRADO, Luz Simeon Primary Care Physician [facility] 02[facility]21 - 03/26/21 [facility] [address] [place] [id number] Allergies, Adverse Reactions, Alerts Substance Reaction [...] (oldterm)12 10/08/06 Given 1Result Comment: [09/24/2017] [facility] [id number] Note: VIS 7-123Admin Note: VIS given 06/23/11, andorran yhmo1Sfeck Note: VIS GIVEN 07/08/10 iwjjsoe9Zrxtlt Comment: [04/02/2016] VIS in Kenyan lzstb6Xnzpb Note: sep 067Admin Note: vis given in Wytomwk7Nevyb Note: VIS given in Mhwbvmr3Tjpry Note: VIS IN WAFJXIQ35Yxqrs Note: VIS in fesgjsu55Jvttw Note: VIS-HCSCH51Rthtn Note: VIS-GIVEN Medications acetaminophen 500 mg oral capsule 2 capsule = 1,000 mg, By Mouth, 3 times a day, PRN for pain, not to exceed 3000 mg/day Kenyan instructions please, # 120 capsule, 0 Refills, Maintenance, 01/02/20 14:40:00 EST, Capsule, [facility]/pharmacy #2071, 165.1, cm, 12/22/19 10:10:00 EST, Height, 5... Start Date: 01/02/20 Status: Orderedalbuterol CFC free 90 mcg/inh inhalation aerosol 1, puffs, Inhalation, 4 times a day, PRN, # 1 each, Refills 11, Tot. Refills 11, Maintenance, 04/08/20 10:06:00 EDT, Aerosol, Route to Pharmacy Electronically, [id number], [facility]/pharmacy #2071, 165.1, cm, 01/02/20 14:39:00 EST,... [...] Refills 11, Tot. Refills 11, Maintenance, Dx: DM2- E11.9 check BID, 03/20/21 13:58:00 EDT, duplicate rx. original sent 02/24/21. remaining refills sent., Supply, 160, cm, 02/13/21 13:46:00 EDT, Height, 54.7, kg, 07/28/19... Start Date: 03/20/21 Status: OrderedlevoFLOXacin 500 mg oral tablet BAHMAN ROWELL LOS Regla Start Date: 02/13/21 Status: Orderedlevothyroxine 0.112 mg oral tablet 1 tablet = 112 mcg, By Mouth, Daily, # 90 tablet, 3 Refills, Maintenance, 09/10/20 8:40:00 EDT, Tablet, [facility]/pharmacy #2071, dose change 09/10/20, 165.1, cm, 01/02/20 14:39:00 EST, Height, 54.7, kg, 07/28/19 7:47:00 EDT, Dry Weight Start Date: 09/10/20 Status: OrderedmetFORMIN 500 mg oral tablet 1 tablet = 500 mg, By Mouth, Daily, with meals, # 30 tablet, 11 Refills, Maintenance, 03/21/20 8:36:00 EDT, Tablet, [facility]/pharmacy #2071, 165.1, cm, 01/02/20 14:39:00 EST, Height, 54.7, kg, 07/28/19 7:47:00 EDT, Dry Weight Start Date: 03/21/20 Status: Orderedmirtazapine 7.5 mg oral tablet 1 tablet = 7.5 mg, By Mouth, Daily at bedtime, for appetite, # 30 tablet, 11 Refills, Maintenance, 12/22/19 10:17:00 EST, [facility], instructions in Kenyan, 165.1, cm, 12/22/19 10:10:00 EST, Height, 54.7, [...] 13:38:00 EDT, Tablet, [facility], instructions in andorran, 165.1, cm, 01/02/20 14:39:00 EST, Height, 54.7, [...] 11 Refills, Maintenance, 11/01/20 11:26:00 EST, Patch, [facility]/pharmacy #2070, 165.1, cm, 09/26/20 9:02:00 EDT, Height, 54.7, kg, 07/28/19 7:47:00 EDT, Dry Weight Start Date: 11/01/20 Stop Date: 10/27/21 Status: Orderedomeprazole 20 mg oral enteric coated capsule 1 capsule = 20 mg, By Mouth, Daily, # 90 capsule, 3 Refills, Soft Stop, 08/18/20 13:37:00 EDT, [facility]/pharmacy #2070, 165.1, cm, 01/02/20 14:39:00 EST, Height, 54.7, kg, 07/28/19 7:47:00 EDT, Dry Weight Start Date: 08/18/20 Status: OrderedpredniSONE 10 mg oral tablet 1 tablet = 10 mg, By Mouth, Daily, # 90 tablet, 3 Refills, Maintenance, 12/05/20 10:03:00 EST, [facility]/pharmacy #2070, 160, cm, 12/03/20 9:29:00 EST, Height, [...] 12/22/19 10:33:00 EST, Route to Pharmacy Electronically, [facility]/pharmacy #2070, 165.1, cm, 12/22/19 10:10:00 EST, Height, [...] Active 1positive bronchial challenge 2-092x-ray 2013 stable, tajxapnwyi82793 x-ray, crug7mmpmvb 5 fxwta7Uakcue emphysema per pulmo note per -2011 dwcdogjkygj0XOU negative 1-50-950kbcs (lateral basal segment of the left lower lobe), per CT 01-18-2009 done at [facility]9internal and external per 2011 hoifvxhffpk83skjkvzy consult written fdsxo24hue CT from [facility], associated with ureteral stone. mild left qddqxvzpkkugej02zkh CT from [facility] , ER was notified 13not starting meds due to polypharmacy and titsadgjhkjxl89Rvostrvc by Pulm in [place], stability on repeat CT Chest Sep 2020 per their qfts62Ret 10mm nodule LUNG-RADS 4B 6on 2007 x-gxj01jy 2009 [id number] DEXA: T-score lowest -3.719Rash developed 07/06/13 Social History Social History Type Response Smoking Status Former smoker; Other: per pt ; entered on: 04/21/18 Sex Male
--- OUTSIDE RECORDS SUMMARY | 2022-09-15 20:11 | XMS_ITS | Continuity of Care Document ---
:1945 Demographics Address [address] [place] [address] Mobile Preferred Language es Marital Status Single Shinto Affiliation Yazidism Race White Ethnic Group or Author Organization [facility] Address [address] [place] [address]- Care Team Providers Name Role Phone Cal PRADO, Luz Simeon Primary Care Physician [facility] - 09/15/20 [facility] [address] [place] [address]- [facility] Allergies, Adverse Reactions, Alerts Substance Reaction Severity [...] (oldterm)12 10/08/06 Given 1Result Comment: [09/24/2017] [facility] [id number] Note: VIS 7-123Admin Note: VIS given 06/23/11, irish hyvp6Ebqcy Note: VIS GIVEN 07/08/10 rztvfhy2Vxamoi Comment: [04/02/2016] VIS in Vietnamese tvoid2Xzjqo Note: sep 067Admin Note: vis given in Yjorhbp6Dwbsa Note: VIS given in Lqzgmrl2Cgikr Note: VIS IN ZAWMOKD80Fcqju Note: VIS in mrfdztx64Aztvm Note: VIS-PPIXC29Huxgt Note: VIS-GIVEN Medications Accu-Chek Compact 17-Strip Drum [...] for pain, not to exceed 3000 mg/day Vietnamese instructions please, # 120 capsule, 0 Refills, [...] 10:06:00 EDT, Aerosol, Route to Pharmacy Electronically, [id number], [facility]/pharmacy #[id number], 165.1, cm, 01/02/20 14:39:00 EST,... Start Date: 04/08/20 Status: Orderedalbuterol-ipratropium 3 mg-0.5 mg/3 ml inhalation solution 3 mL, Inhalation, 4 times a day, dx asthma J45, # 100 each, 11 Refills, Maintenance, 04/08/20 14:30:00 EDT, Solution, [facility]/pharmacy #[id number], 3 mL Inhalation 4 times a [...] Refills, Maintenance, 04/29/20 14:00:00 EDT, Ointment, [facility]/pharmacy #2070, replaced Fluocinonide, 1 application Topically 2 times [...] Maintenance, 01/03/19 8:46:30 EST, Cream, instructions in Kinyarwanda please, 1 application Topically 2 times a [...] Refills, Maintenance, 12/22/19 10:21:00 EST, Cream, [facility]/pharmacy #[id number], 1 application Topically 2 times a day, 165.1, cm, 12/22/19 10:10:00 EST, Height, 54.7, kg, 07/28/19 7:47:00 EDT, Dry Weight Start Date: 12/22/19 Status: Orderedfluticasone-salmeterol 232 mcg-14 mcg/inh inhalation powder 1 inhalation, Inhalation, 2 times a day, rinse mouth and throat after use, # 1 each, 11 Refills, Maintenance, 03/21/20 8:53:00 EDT, Powder, [facility]/pharmacy #[id number], 1 inhalation Inhalation 2 times a [...] Refills, Maintenance, 09/10/20 8:40:00 EDT, Tablet, [facility]/pharmacy #[id number], dose change 09/10/20, 165.1, cm, 01/02/20 14:39:00 EST, Height, 54.7, kg, 07/28/19 7:47:00 EDT, Dry Weight Start Date: 09/10/20 Status: OrderedmetFORMIN 500 mg oral tablet 1 tablet = 500 mg, By Mouth, Daily, with meals, # 30 tablet, 11 Refills, Maintenance, 03/21/20 8:36:00 EDT, Tablet, [facility]/pharmacy #207, 165.1, cm, 01/02/20 14:39:00 EST, Height, 54.7, kg, 07/28/19 7:47:00 EDT, Dry Weight Start Date: 03/21/20 Status: Orderedmirtazapine 7.5 mg oral tablet 1 tablet = 7.5 mg, By Mouth, Daily at bedtime, for appetite, # 30 tablet, 11 Refills, Maintenance, 12/22/19 10:17:00 EST, [facility] #[id number], instructions in Vietnamese, 165.1, cm, 12/22/19 10:10:00 EST, Height, 54.7, kg, 07/28/19 7:47:00 EDT, Dry Weight Start Date: 12/22/19 Status: Orderedmultivitamin Multiple Vitamins oral capsule 1 capsule, By Mouth, Daily, # 90 capsule, 3 Refills, Maintenance, 12/22/19 10:33:00 EST, Capsule, [facility]/pharmacy #[id number], 1 capsule By Mouth Daily, 165.1, cm, 12/22/19 10:10:00 EST, Height, 54.7, kg, 07/28/19 7:47:00 EDT, Dry Weight Start Date: 12/22/19 Status: Orderednabumetone 500 mg oral tablet 1 tablet = 500 mg, By Mouth, 2 times a day, for knee pain, # 60 tablet, 3 Refills, Maintenance, 08/18/20 13:38:00 EDT, Tablet, [facility]/pharmacy #207, instructions in irish, 165.1, cm, 01/02/20 [...] 3 Refills, Soft Stop, 08/18/20 13:37:00 EDT, [facility]/pharmacy #2071, 165.1, cm, 01/02/20 14:39:00 EST, Height, 54.7, kg, 07/28/19 7:47:00 EDT, Dry Weight Start Date: 08/18/20 Status: OrderedpredniSONE 10 mg oral tablet 1 tablet = 10 mg, By Mouth, Daily, # 90 tablet, 3 Refills, Maintenance, 03/16/20 9:39:00 EDT, [facility]/pharmacy #2071, 165.1, cm, 01/02/20 14:39:00 EST, Height, [...] 10:33:00 EST, Route to Pharmacy Electronically, [facility]/pharmacy #[id number], 165.1, cm, 12/22/19 10:10:00 EST, Height, [...] Active 1positive bronchial challenge 2-092x-ray 2013 stable, tthejbyvbp07184 x-ray, rdut2rfrokd 5 dwjio9Izsjjk emphysema per pulmo note per -2011 fhgwumhhtuf1TMN negative 1-83-488fsqg (lateral basal segment of the left lower lobe), per CT 01-18-2009 done at [facility]9internal and external per 2011 wimvdatyeal21ksgaqig consult written nrhgb70efw CT from [facility], associated with ureteral stone. mild left guqmhhmiqropcp56sro CT from [facility] , ER was notified 13not starting meds due to polypharmacy and bxxctexkktbsj98Wje 10mm nodule LUNG-RADS 4B 5on 2007 x-[id number] 2009 [id number] DEXA: T-score lowest -3.718Rash developed 07/06/13 Social History Social History Type Response Smoking Status Former smoker; Other: per pt ; entered on: 04/21/18 Sex Male
--- OUTSIDE RECORDS SUMMARY | 2022-09-15 20:11 | XMS_ITS | Continuity of Care Document ---
:1945 Demographics Address [address] [place] [address] Mobile Preferred Language es Marital Status Single Yarsani Affiliation Baptism Race White Ethnic Group or Author Organization [facility] Address [address] [place] [address]- Care Team Providers Name Role Phone Cal PRADO, Luz Simeon Primary Care Physician [facility]): 01/[facility]20 - 02/28/[address] [address]- [facility] Attending Physician: Sharona Pedroza NP Allergies, Adverse [...] (oldterm)12 10/08/06 Given 1Result Comment: [09/24/2017] [facility] [id number] Note: VIS 7-123Admin Note: VIS given 06/23/11, ukrainian ugkb0Trltk Note: VIS GIVEN 07/08/10 pkeuepm2Xbtods Comment: [04/02/2016] VIS in Jordanian xeini2Kpeob Note: sep 067Admin Note: vis given in Ajjsfoo7Hxfnf Note: VIS given in Etgqnrm0Derpi Note: VIS IN VVOKXFJ74Igkdy Note: VIS in sqdltye00Dtjxe Note: VIS-YSMBM70Qgtwq Note: VIS-GIVEN Medications Accu-Chek Compact 17-Strip Drum [...] for pain, not to exceed 3000 mg/day Jordanian instructions please, # 120 capsule, 0 Refills, Maintenance, 01/02/20 14:40:00 EST, Capsule, [id number], 165.1, cm, 12/22/19 10:10:00 EST, Height, 5... Start Date: 01/02/20 Status: Orderedalbuterol 2.5mg / 3mL (0.083%) (OP) 3 mL = 2.5 mg, Neb, Every 6 hours, 0 Refills, Maintenance Start Date: 10/17/19 Status: Orderedatorvastatin 40 mg oral tablet TOME [...] Maintenance, 01/03/19 8:46:30 EST, Cream, instructions in Thai please, 1 application Topically 2 times a [...] 5 Refills, Maintenance, 12/22/19 10:21:00 EST, Cream, [facility]/pharmacy #[id number], 1 application Topically 2 times a day, 165.1, cm, 12/22/19 10:10:00 EST, Height, 54.7, kg, 07/28/19 7:47:00 EDT, Dry Weight Start Date: 12/22/19 Status: Orderedfluticasone-salmeterol 232 mcg-14 mcg/inh inhalation powder 1 inhalation, Inhalation, 2 times a day, rinse mouth and throat after use, # 1 each, 11 Refills, Maintenance, 09/22/19 8:49:53 EDT, Powder, 1 inhalation Inhalation 2 times a day,Instr:rinse mouth and throat after use Start Date: 09/22/19 Status: Orderedhydrocortisone 1% topical cream 1 application, [...] Mouth, Daily, with meals, # 30 tablet, 0 Refills, Maintenance, 01/02/20 15:16:00 EST, Tablet Start Date: 01/02/20 Status: Orderedmirtazapine 7.5 mg oral tablet 1 tablet = 7.5 mg, By Mouth, Daily at bedtime, for appetite, # 30 tablet, 11 Refills, Maintenance, 12/22/19 10:17:00 EST, [facility]/pharmacy #[id number], instructions in Jordanian, 165.1, cm, 12/22/19 10:10:00 EST, Height, 54.7, kg, 07/28/19 7:47:00 EDT, Dry Weight Start Date: 12/22/19 Status: Orderedmultivitamin Multiple Vitamins oral capsule 1 capsule, By Mouth, Daily, # 90 capsule, 3 Refills, Maintenance, 12/22/19 10:33:00 EST, Capsule, [facility]/pharmacy #[id number], 1 capsule By Mouth Daily, 165.1, cm, 12/22/19 10:10:00 EST, Height, 54.7, kg, 07/28/19 7:47:00 EDT, Dry Weight Start Date: 12/22/19 Status: Orderednabumetone 500 mg oral tablet 1 tablet = 500 mg, By Mouth, 2 times a day, for knee pain, # 60 tablet, 3 Refills, Maintenance, 08/02/19 11:35:19 EDT, Tablet, instructions in ukrainian Start Date: 08/02/19 Status: OrderedNebulizer/Compressor See Instructions, # 1 each, Maintenance, D: COPD severe, Gold Ct 4 For use PRN Q4hr for shortness ofbreath, 12/22/19 10:19:00 EST, Compound Start Date: 12/22/19 Status: Orderedomeprazole 20 mg oral enteric coated capsule 1 capsule = 20 mg, By Mouth, Daily, # 90 capsule, 3 Refills, Soft Stop, 12/22/19 10:33:00 EST, [facility]/pharmacy #[id number], 165.1, cm, 12/22/19 10:10:00 EST, Height, 54.7, kg, 07/28/19 7:47:00 EDT, Dry Weight Start Date: 12/22/19 Status: OrderedpredniSONE 10 mg oral tablet 1 tablet = 10 mg, By Mouth, Daily, for COPD/Asthma, # 90 tablet, 3 Refills, Maintenance, 06/02/19 11:48:06 EDT Start Date: 06/02/19 Status: OrderedShower chair with back Shower chair [...] Route to Pharmacy Electronically, [facility]/pharmacy #[id number], 165.1, cm, 12/22/19 10:10:00 EST, Height, 54.7, kg, 07/28/19 7:47:00 EDT, Dry We... Start Date: 12/22/19 Status: OrderedSpiriva HandiHaler 18 mcg inhalation capsule 1 capsule = 18 mcg, Inhalation, Daily, # 90 capsule, 3 Refills, Maintenance, 09/22/19 8:49:37 EDT Start Date: 09/22/19 Status: OrderedVentolin 90 mcg Inhaler Inhalation, 4 times a day, Refills 0, Maintenance, 10/17/19 10:17:14 EST Start Date: 10/17/19 Status: Ordered Problem List Condition Effective Dates [...] Active 1positive bronchial challenge 2-092x-ray 2013 stable, rusixetdys26866 x-ray, ltch2yiuxzv 5 vskdc9Pcnhjw emphysema per pulmo note per rrlsknhuizp7JQH negative 5-05-180aidn (lateral basal segment of the left lower lobe), per CT 01-18-2009 done at [facility]9internal and external per 2011 ojmcbnwsiam12yncalok consult written yahla70eyt CT from [facility], associated with ureteral stone. mild left cabpheilmazfsh45yun CT from [facility] , ER was notified 13not starting meds due to polypharmacy and rpqoceqxqmmtn36Yrg 10mm nodule LUNG-RADS 4B 5on 2007 x-tpy54va 2009 [id number] DEXA: T-score lowest -3.718Rash developed 07/06/13 Social History Social History Type Response Smoking Status Former smoker; Other: per pt ; entered on: 04/21/18 Sex Male
--- OUTSIDE RECORDS SUMMARY | 2022-09-15 20:11 | XMS_ITS | Continuity of Care Document ---
:1945 Demographics Address [address] [place] [address] Mobile Preferred Language es Marital Status Single Congregational Affiliation Buddhist Race Unknown Ethnic Group or Author Organization [facility] Address [address] [place] [address]- Care Team Providers Name Role Phone Cal PRADO, Luz Simeon Primary Care Physician [facility] 06[facility]21 - 08/03/21 [facility] [address] [place] [address]- Attending Physician: Not on Staff, Attending MD Allergies, Adverse Reactions, Alerts Substance Reaction Severity [...] Given 1Result Comment: [09/24/2017] [facility] [id number] Note: VIS 7-123Admin Note: VIS given 06/23/11, cambodian ssav2Zhdtg Note: VIS GIVEN 07/08/10 twvcsoc3Ynrdpz Comment: [04/02/2016] VIS in Liberian dqjqm7Xsszn Note: augdmin Note: vis given in Gfktpgt8Vwcgm Note: VIS given in Opzuwwd5Avdbb Note: VIS IN REXSSSC45Jnbla Note: VIS in mukeptg17Kunhl Note: VIS-RGSQR44Uldni Note: VIS-GIVEN Medications albuterol CFC free 90 mcg/inh inhalation aerosol 1, puffs, Inhalation, 4 times a day, PRN, dx: J45.909, # 1 each, Refills 5, Tot. Refills 5, Maintenance, 06/10/21 15:20:00 EDT, Aerosol, Route to Pharmacy Electronically, [id number], [facility]/pharmacy #[id number], 160, cm, 05/20/21 14:1... Start Date: [...] 1 Refills,Maintenance, 07/04/21 9:48:00 EDT, CR Capsule, [id number], Partial fill upon patient requestif the [...] OrderedlevoFLOXacin 500 mg oral tablet TOME NAZ VALENTEA TODOS LOS D Start Date: 02/13/21 Status: Orderedlevothyroxine 0.112 mg oral tablet 1 tablet = 112 mcg, By Mouth, Daily, # 90 tablet, 3 Refills, Maintenance, 09/10/20 8:40:00 EDT, Tablet, [facility]/pharmacy #2071, dose change 09/10/20, 165.1, cm, 01/02/20 14:39:00 EST, Height, 54.7, kg, 07/28/19 7:47:00 EDT, Dry Weight Start Date: 09/10/20 Status: OrderedmetFORMIN 500 mg oral tablet 1 tablet = 500 mg, By Mouth, Daily, with meals, # 90 tablet, 3 Refills, Maintenance, 05/15/21 10:18:00 EDT, Tablet, [facility], 160, cm, 02/13/21 13:46:00 EDT, Height, 54.7, kg, 07/28/19 7:47:00 EDT, Dry Weight Start Date: 05/15/21 Status: Orderedmirtazapine 7.5 mg oral tablet 1 tablet = 7.5 mg, By Mouth, Daily at bedtime, for appetite, # 90 tablet, 3 Refills, Maintenance, 05/15/21 10:16:00 EDT, [id number], instructions in Liberian, 160, cm, 02/13/21 13:46:00 EDT, Height, 54.7, [...] 3 Refills, Maintenance, 07/04/21 9:45:00 EDT, Tablet, [facility]/pharmacy #207, instructions in cambodian, 160, cm, 07/04/21 9:33:00 EDT,Height, 54.7, kg, [...] lozenge, 11 Refills, Maintenance, 11/01/20 11:26:00 EST, [facility]/pharmacy #2070, 1 lozenge By Mouth Every hour, 165.1, [...] 3 Refills, Soft Stop, 08/18/20 13:37:00 EDT, [facility]/pharmacy #207, 165.1, cm, 01/02/20 14:39:00 EST, Height, 54.7, kg, 07/28/19 7:47:00 EDT, Dry Weight Start Date: 08/18/20 Status: OrderedpredniSONE 10 mg oral tablet 1 tablet = 10 mg, By Mouth, Daily, # 90 tablet, 3 Refills, Maintenance, 12/05/20 10:03:00 EST, [facility]/pharmacy #207, 160, cm, 12/03/20 9:29:00 EST, Height, 54.7, kg, 07/28/19 7:47:00 EDT, Dry Weight Start Date: 12/05/20 Status: OrderedSingulair 10 mg oral tablet 10 mg, 1, tablet, By Mouth, Daily in PM, # 90 tablet, Refills 3, Tot. Refills 3, Maintenance, 05/15/21 10:17:00 EDT, Route to Pharmacy Electronically, [facility]/pharmacy #207, 160, cm, 02/13/21 13:46:00 EDT, Height, [...] 6 Refills, Maintenance, 04/14/21 10:42:00 EDT, Capsule, [facility]/pharmacy #2071, Please put instructions in Liberian, 160, cm,02/13/21 13:46:00 EDT, Height, 54.7, kg, 07/28/19... Start Date: 04/14/21 Status: Ordered Problem List Condition Effective Dates Status Health Status Informant Asthma(Confirmed)1 01/23/09 Active Cataract(Confirmed) Active Cervical arthritis(Confirmed)2, 3 Active Colonoscopy(Confirmed)4 06/02/07 Active COPD - Chronic obstructive pulmonary Active disease(Confirmed)5 Diabetes Mellitus(Confirmed) 2012 Active Diverticulosis(Confirmed)05/2012 Active Granuloma(Confirmed)7, 8 Active 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 [...] Active 1positive bronchial challenge 2-092x-ray 2013 stable, oyfheqvfpy72936 x-ray, edng5jcyipj 5 yrwug9Qdpggn emphysema per pulmo note per -2011 yfmgoysgdff6ERO negative 2-59-901xyzh (lateral basal segment of the left lower lobe), per CT 01-18-2009 done at [facility]9internal and external per 2011 dylporpyumg86djrleph consult written ydntg81rdi CT from [facility], associated with ureteral stone. mild left wpojsfmmrssxwf63wur CT from [facility] , ER was notified 13not starting meds due to polypharmacy and blshotnryvcdp25Rlevkdgz by Pulm in [place], stability on repeat CT Chest Sep 2020 per their dpcl62Amz 10mm nodule LUNG-RADS 4B 6on 2007 x-qcd36ne 2009 [id number] DEXA: T-score lowest -3.719Rash developed 07/06/13 Social History Social History Type Response Smoking Status Former smoker; Other: per pt ; entered on: 04/21/18 Sex Male
--- OUTSIDE RECORDS SUMMARY | 2022-09-15 20:11 | XMS_ITS | Continuity of Care Document ---
:1945 Demographics Address [address] [place] [address] Mobile Preferred Language es Marital Status Single Episcopalian Affiliation Anabaptist Race White Ethnic Group or Author Organization [facility] Address [address] [place] [address], [address] [place] [address]- Care Team Providers Name Role Phone Cal PRADO, Luz Simeon Primary Care Physician [facility]): [facility]20 - 02/02/20 [facility] [address] [place] [address], [address] [place] [address]- [facility] Attending Physician: Latasha Dumont Admitting Physician: Latasha Duomnt Referring Physician: Latasha Dumont Allergies, Adverse Reactions, Alerts Substance Reaction Severity [...] Vaccine (oldterm)12 10/08/06 Given 1Result Comment: [09/24/2017] [facility] [id number] Note: VIS 7-123Admin Note: VIS given 06/23/11, turkish hbxj5Grmzz Note: VIS GIVEN 07/08/10 bdomphh3Bjnkfp Comment: [04/02/2016] VIS in Prydeinig hzgni3Zlsmw Note: sep 067Admin Note: vis given in Idrovjl9Jdlit Note: VIS given in Vmayryc5Dscjf Note: VIS IN RZXZKOD05Qvqtt Note: VIS in oooagza88Mhpgc Note: VIS-XUQRV50Xpmtd Note: VIS-GIVEN Medications Accu-Chek Compact 17-Strip Drum [...] for pain, not to exceed 3000 mg/day Prydeinig instructions please, # 120 capsule, 0 Refills, [...] Maintenance, 01/03/19 8:46:30 EST, Cream, instructions in Trinidadian please, 1 application Topically 2 times a [...] 5 Refills, Maintenance, 12/22/19 10:21:00 EST, Cream, [facility]/pharmacy #2071, 1 application Topically 2 times a [...] tablet, 11 Refills, Maintenance, 12/22/19 10:17:00 EST, [facility]/pharmacy #2071, instructions in Prydeinig, 165.1, cm, 12/22/19 10:10:00 EST, Height, 54.7, kg, 07/28/19 7:47:00 EDT, Dry Weight Start Date: 12/22/19 Status: Orderedmultivitamin Multiple Vitamins oral capsule 1 capsule, By Mouth, Daily, # 90 capsule, 3 Refills, Maintenance, 12/22/19 10:33:00 EST, Capsule, [facility]/pharmacy #2071, 1 capsule By Mouth Daily, 165.1, cm, 12/22/19 10:10:00 EST, Height, 54.7, kg, 07/28/19 7:47:00 EDT, Dry Weight Start Date: 12/22/19 Status: Orderednabumetone 500 mg oral tablet 1 tablet = 500 mg, By Mouth, 2 times a day, for knee pain, # 60 tablet, 3 Refills, Maintenance, 08/02/19 11:35:19 EDT, Tablet, instructions in turkish Start Date: 08/02/19 Status: OrderedNebulizer/Compressor See Instructions, # 1 each, Maintenance, D: COPD severe, Gold Ct 4 For use PRN Q4hr for shortness ofbreath, 12/22/19 10:19:00 EST, Compound Start Date: 12/22/19 Status: Orderedomeprazole 20 mg oral enteric coated capsule 1 capsule = 20 mg, By Mouth, Daily, # 90 capsule, 3 Refills, Soft Stop, 12/22/19 10:33:00 EST, [facility]/pharmacy #2071, 165.1, cm, 12/22/19 10:10:00 EST, Height, [...] 12/22/19 10:33:00 EST, Route to Pharmacy Electronically, [facility]/pharmacy #[id number], 165.1, cm, 12/22/19 10:10:00 EST, Height, [...] Active 1positive bronchial challenge 2-092x-ray 2013 stable, rlsxvsopkw34372 x-ray, bidu0hddfdj 5 kjmqn9Pytgvb emphysema per pulmo note per -2011 gdipbsmcdfl5WUL negative 0-81-393ptsx (lateral basal segment of the left lower lobe), per CT 01-18-2009 done at [facility]9internal and external per 2011 szcgxzfvxka87mpyddhb consult written aebwm74ewn CT from [facility], associated with ureteral stone. mild left sfkmixlgmraoaq04bpt CT from [facility] , ER was notified 13not starting meds due to polypharmacy and ucncppdnwuzyx95Fny 10mm nodule LUNG-RADS 4B 5on 2007 x-fkn45tz 2009 [id number] DEXA: T-score lowest -3.718Rash developed 07/06/13 Social History Social History Type Response Smoking Status Former smoker; Other: per pt ; entered on: 04/21/18 Sex Male
--- OUTSIDE RECORDS SUMMARY | 2022-09-15 20:11 | XMS_ITS | Continuity of Care Document ---
:1945 Demographics Address [address] [place] [address] Mobile Preferred Language es Marital Status Single Restorationist Affiliation Scientologist Race Unknown Ethnic Group or Author Organization [facility] Adult Medicine Address [address] [place] [phone]- Care Team Providers Name Role Phone Cal PRADO, Luz Simeon Primary Care Physician Encounter [facility] Date(s): 11/18/21 - 12/27/21 [facility] Adult Medicine [address] [place] [id number] Attending Physician: Not on Staff, Attending MD Referring Physician: Luz Mccall NP Allergies, Adverse Reactions, Alerts Substance Reaction [...] inactivated 12/27/12 Recorded influenza virus vaccine, inactivated2 07/18/12 Given influenza [...] 10/08/06 Given 1Result Comment: [09/24/2017] [facility] [id number] Note: VIS 7-123Admin Note: VIS given 06/23/11, [facility] wvsk0Nfdwc Note: VIS GIVEN 07/08/10 devynpk6Bcmqtx Comment: [04/02/2016] VIS in Maldivian ltpdl9Camfb Note: sep 067Admin Note: vis given in Ahtefaq9Tftzp Note: VIS given in Gwerdsq1Sgalb Note: VIS IN WAPKWCL34Lyaca Note: VIS in ffprtep93Dvbex Note: VIS-IIONE22Qlvug Note: VIS-GIVEN Medications 3cc Leur-Stephanie syringe, 22 g, 1 inch 3cc Leur-Stephanie syringe, 22 g, 1 inch, See Instructions, # 6 each, Refills 3, Tot. Refills 3, Maintenance, use one every two weeks for testosterone inj, 12/25/21 16:49:00 EST, Supply, 160, cm, 11/27/21 8:06:00 EST, Height Start Date: 12/25/21 Status: Orderedalbuterol CFC free 90 mcg/inh inhalation aerosol 1, puffs, Inhalation, 4 times a day, PRN, dx: J45.909, # 1 each, Refills 5, Tot. Refills 5, Maintenance, 06/10/21 15:20:00 EDT, Aerosol, Route to Pharmacy Electronically, [id number], [id number], 160, cm, 05/20/21 14:1... Start [...] 1 Refills,Maintenance, 07/04/21 9:48:00 EDT, CR Capsule, [facility]/pharmacy #[id number], Partial fill upon patient requestif [...] 1 Refills, Maintenance, 09/26/21 8:55:00 EDT, Tablet, [facility]/pharmacy #207, dose change 09/10/20, 160, cm, 08/22/21 11:06:00 EDT, Height Start Date: 09/26/21 Status: OrderedmetFORMIN 500 mg oral tablet 1 tablet = 500 mg, By Mouth, Daily, with meals, # 90 tablet, 3 Refills, Maintenance, 05/15/21 10:18:00 EDT, Tablet, [facility]/pharmacy #207, 160, cm, 02/13/21 13:46:00 EDT, Height, 54.7, kg, 07/28/19 7:47:00 EDT, Dry Weight Start Date: 05/15/21 Status: Orderedmirtazapine 7.5 mg oral tablet 1 tablet = 7.5 mg, By Mouth, Daily at bedtime, for appetite, # 90 tablet, 3 Refills, Maintenance, 05/15/21 10:16:00 EDT, [id number], instructions in Maldivian, 160, cm, 02/13/21 13:46:00 EDT, Height, 54.7, [...] 9:45:00 EDT, Tablet, [id number], instructions in [place], 160, cm, 07/04/21 9:33:00 EDT,Height, 54.7, kg, [...] Maintenance, 11/01/20 11:26:00 EST, Patch, [facility]/pharmacy #[id number], 165.1, cm, 09/26/20 9:02:00 EDT, [...] 3 Refills, Soft Stop, 08/22/21 11:44:00 EDT, [facility]/pharmacy #207, 160, cm, 08/22/21 11:06:00 EDT, Height Start Date: 08/22/21 Status: OrderedpredniSONE 10 mg oral tablet TOME NAZ VALENTEA TODOS LOS D Start Date: 08/22/21 Status: OrderedSingulair 10 mg oral tablet 10 mg, 1, tablet, By Mouth, Daily in PM, # 90 tablet, Refills 3, Tot. Refills 3, Maintenance, 05/15/21 10:17:00 EDT, Route to Pharmacy Electronically, [facility]/pharmacy #[id number], 160, cm, 02/13/21 13:46:00 EDT, Height, 54.7, kg, 07/28/19 7:47:00 EDT, Dry Weight Start Date: 05/15/21 Status: OrderedTestosterone Cypionate 200 mg/mL intramuscular solution = 100 mg, Intramuscular, Every 14 days, # 2 mL, 4 Refills, Maintenance, 11/06/21 17:01:00 EST, [facility]/pharmacy #[id number], 160, cm, 11/04/21 9:21:00 EST, [...] 11 Refills, Maintenance, 08/22/21 11:46:00 EDT, Powder, [facility]/pharmacy #[id number], Partial fill upon patient request if theprescription is for a schedule II opioid drug., 1... 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 mild left vibsuabyuuropg93Atnsmu stone Oct 2021, seeing gtunulh33qic CT from [facility] , ER was notified 14not starting meds due to polypharmacy and jvfnrybikghzi39Chhuuncq by Pulm in [place], stability on repeat CT Chest Sep 2020 per their qaom06Ccg 10mm nodule LUNG-RADS 4B 7on 2007 x-qty60yz 2009 [id number] DEXA: T-score lowest -3.720Rash developed 07/06/13 Social History Social History Type Response Smoking Status Former smoker; Other: per pt ; entered on: 04/21/18 Sex Male
--- OUTSIDE RECORDS SUMMARY | 2022-09-15 20:11 | XMS_ITS | Continuity of Care Document ---
:1945 Demographics Address [address] [place] [address] Mobile Preferred Language es Marital Status Single Restorationist Affiliation Religious Race Unknown Ethnic Group or Author Organization [facility] Adult [facility] Address [address] [place] [address]- Care Team Providers Name Role Phone Cal PRADO, Luz Simeon Primary Care Physician Encounter [facility] Date(s): 06/13/21 - 07/13/21 [facility] [address] [place] [phone]- Allergies, Adverse Reactions, Alerts Substance Reaction Severity [...] Vaccine (oldterm)12 10/08/06 Given 1Result Comment: [09/24/2017] [facility] [id number] Note: VIS 7-123Admin Note: VIS given 06/23/11, georgian zqme2Dlctb Note: VIS GIVEN 07/08/10 stkgxxx3Joypfk Comment: [04/02/2016] VIS in Kosovan mkzkc9Pxnui Note: augdmin Note: vis given in Zdnwmps7Ghjfd Note: VIS given in Kjkrlvp7Osnyv Note: VIS IN TNNMAPZ28Wxoqc Note: VIS in svmfxop55Ivakt Note: VIS-CVGKO91Ltzmq Note: VIS-GIVEN Medications albuterol CFC free 90 mcg/inh inhalation aerosol 1, puffs, Inhalation, 4 times a day, PRN, dx: J45.909, # 1 each, Refills 5, Tot. Refills 5, Maintenance, 06/10/21 15:20:00 EDT, Aerosol, Route to Pharmacy Electronically, [id number], [facility]/pharmacy #[id number], 160, cm, 05/20/21 14:1... Start Date: [...] 2 Refills, Maintenance, 07/04/21 9:57:00 EDT, Ointment, [facility]/pharmacy #[id number], instead of Fluocinonide, 1 application Topically 2 timesa day,Instr:For severe eczema, 160, cm, 07/04/21... Start Date: 07/04/21 Status: Orderedcalcium (as carbonate)-vitamin D 500 mg-400 intl units oral tablet 1 tablet, By Mouth, 2 times a day, # 60 tablet, 11 Refills, Maintenance, 12/10/20 11:55:00 EST, Tablet, [facility]/pharmacy #[id number], Partial fill upon patient request if the prescription is for a schedule II opioid drug., 1 tablet By Mouth 2 times a day, 160,... Start Date: 12/10/20 Status: OrderedDaliresp 500 mcg oral tablet 1 tablet = 500 mcg, By Mouth, Daily, for COPD, # 90 tablet, 3 Refills, Maintenance, 02/13/21 13:50:00 EDT, [facility]/pharmacy #207, 160, cm, 02/13/21 12:53:00 EDT, Height, 54.7, kg, 07/28/19 7:47:00 EDT, Dry Weight Start Date: 02/13/21 Status: Orderedduloxetine 30 mg oral enteric coated capsule 1 capsule = 30 mg, By Mouth, Daily, do not crush or chew. FOR CHRONIC PAIN, # 30 capsule, 1 Refills,Maintenance, 07/04/21 9:48:00 EDT, CR Capsule, [facility]/pharmacy #[id number], Partial fill upon patient requestif the [...] 05/15/21 10:16:00 EDT, [id number], instructions in Kosovan, 160, cm, 02/13/21 13:46:00 EDT, Height, 54.7, [...] 3 Refills, Maintenance, 07/04/21 9:45:00 EDT, Tablet, [facility]/pharmacy #207, instructions in georgian, 160, cm, 07/04/21 9:33:00 EDT,Height, 54.7, kg, [...] tablet, 3 Refills, Maintenance, 12/05/20 10:03:00 EST, [facility]/pharmacy #207, 160, cm, 12/03/20 9:29:00 EST, Height, 54.7, kg, 07/28/19 7:47:00 EDT, Dry Weight Start Date: 12/05/20 Status: OrderedSingulair 10 mg oral tablet 10 mg, 1, tablet, By Mouth, Daily in PM, # 90 tablet, Refills 3, Tot. Refills 3, Maintenance, 05/15/21 10:17:00 EDT, Route to Pharmacy Electronically, [facility]/pharmacy #207, 160, cm, 02/13/21 13:46:00 EDT, Height, [...] 6 Refills, Maintenance, 04/14/21 10:42:00 EDT, Capsule, [facility]/pharmacy #207, Please put instructions in Kosovan, 160, cm,02/13/21 13:46:00 EDT, Height, 54.7, kg, [...] Active 1positive bronchial challenge 2-092x-ray 2013 stable, knxkftzjpe53051 x-ray, gtsz4oelomu 5 efnxe9Oyatye emphysema per pulmo note per rfgkebwxqbw5JEV negative 3-45-212cnmh (lateral basal segment of the left lower lobe), per CT 01-18-2009 done at [facility]9internal and external per 2011 qlrjarjfzjw72haoktdf consult written fuixw78zhf CT from [facility], associated with ureteral stone. mild left vquqenlyspoovz99azq CT from [facility] , ER was notified 13not starting meds due to polypharmacy and vkqftwxiirsya21Syhqjvld by Pulm in [place], stability on repeat CT Chest Sep 2020 per their qkds23Xrh 10mm nodule LUNG-RADS 4B 6on 2007 x-ljv29li 2009 [id number] DEXA: T-score lowest -3.719Rash developed 07/06/13 Social History Social History Type Response Smoking Status Former smoker; Other: per pt ; entered on: 04/21/18 Sex Male
--- OUTSIDE RECORDS SUMMARY | 2022-09-15 20:11 | XMS_ITS | Continuity of Care Document ---
:1945 Demographics Address [address] [place] [address] Mobile Preferred Language es Marital Status Single Orthodox Affiliation Cheondoism Race Unknown Ethnic Group or Author Organization [facility] Adult Medicine Address [address] [place] [address]- Care Team Providers Name Role Phone Cal PRADO, Luz Simeon Primary Care Physician Encounter [facility] Date(s): 09/26/21 - 10/26/21 [facility] [address] [place] [id number] Allergies, Adverse Reactions, Alerts Substance Reaction [...] Status Refusal Reason influenza virus vaccine, inactivated 09/25/21 Given influenza [...] Given influenza virus vaccine, inactivated4 08/29/10 Given SARS-CoV-2 (COVID-19) mRNA BNT-162b2 vac 02/03/21 Given SARS-CoV-2 (COVID-19) mRNA BNT-162b2 vac 01/13/21 Given tetanus/diphtheria/pertussis, acel(Tdap) 07/09/20 Recorde d pneumococcal [...] (oldterm)12 10/08/06 Given 1Result Comment: [09/24/2017] [facility] [id number] Note: VIS 7-123Admin Note: VIS given 06/23/11, chinese fslx9Hfnzu Note: VIS GIVEN 07/08/10 rhumzah4Cvedgf Comment: [04/02/2016] VIS in Indonesian ptxdo9Rlocv Note: sep 067Admin Note: vis given in Qbltxli0Icspb Note: VIS given in Gtgmhdq6Kogvm Note: VIS IN RGCXZHG82Dypvs Note: VIS in qipqlfm33Gxxvr Note: VIS-KLRZC98Tckym Note: VIS-GIVEN Medications albuterol CFC free 90 mcg/inh inhalation aerosol 1, puffs, Inhalation, 4 times a day, PRN, dx: J45.909, # 1 each, Refills 5, Tot. Refills 5, Maintenance, 06/10/21 15:20:00 EDT, Aerosol, Route to Pharmacy Electronically, [id number], [facility]/pharmacy #[id number], 160, cm, 05/20/21 14:1... Start Date: 06/10/21 Status: Orderedalbuterol-ipratropium 3 mg-0.5 mg/3 ml inhalation solution 3 mL, Inhalation, 4 times a day, dx asthma J45, COPD J44.9, # 100 each, 11 Refills, Maintenance, 07/09/21 15:08:00 EDT, Solution, [facility]/pharmacy #[id number], 3 mL Inhalation 4 times a [...] 1 Refills, Maintenance, 09/26/21 8:55:00 EDT, Tablet, [facility]/pharmacy #2071, dose change 09/10/20, 160, cm, 08/22/21 11:06:00 EDT, Height Start Date: 09/26/21 Status: OrderedmetFORMIN 500 mg oral tablet 1 tablet = 500 mg, By Mouth, Daily, with meals, # 90 tablet, 3 Refills, Maintenance, 05/15/21 10:18:00 EDT, Tablet, [facility]/pharmacy #2071, 160, cm, 02/13/21 13:46:00 EDT, Height, 54.7, kg, 07/28/19 7:47:00 EDT, Dry Weight Start Date: 05/15/21 Status: Orderedmirtazapine 7.5 mg oral tablet 1 tablet = 7.5 mg, By Mouth, Daily at bedtime, for appetite, # 90 tablet, 3 Refills, Maintenance, 05/15/21 10:16:00 EDT, [facility]/pharmacy #[id number], instructions in Indonesian, 160, cm, 02/13/21 13:46:00 EDT, Height, 54.7, kg, 07/28/19 7:47:00 EDT, Dry Weight Start Date: 05/15/21 Status: Orderedmultivitamin Multiple Vitamins oral capsule 1 capsule, By Mouth, Daily, # 90 capsule, 3 Refills, Maintenance, 05/15/21 10:17:00 EDT, Capsule, [facility]/pharmacy #2071, 1 capsule By Mouth Daily, 160, cm, 02/13/21 13:46:00 EDT, Height, 54.7, kg, 07/28/19 7:47:00 EDT, Dry Weight Start Date: 05/15/21 Status: Orderednabumetone 500 mg oral tablet 1 tablet = 500 mg, By Mouth, 2 times a day, for knee pain, # 60 tablet, 3 Refills, Maintenance, 07/04/21 9:45:00 EDT, Tablet, [facility]/pharmacy #[id number], instructions in chinese, 160, cm, 07/04/21 9:33:00 EDT,Height, 54.7, kg, 07/28/19 7:47:00 EDT, Dry Weight Start Date: 07/04/21 Status: Orderednicotine 4 mg oral transmucosal lozenge 1 lozenge = 4 mg, By Mouth, Every hour, # 189 lozenge, 11 Refills, Maintenance, 11/01/20 11:26:00 EST, [facility]/pharmacy #2071, 1 lozenge By Mouth Every hour, 165.1, cm, 09/26/20 9:02:00 EDT, Height, 54.7, kg, 07/28/19 7:47:00 EDT, Dry Weight Start Date: 11/01/20 Status: OrderedNicotine 7 mg/24 hour patch 1 patch, Topically, Daily, remove patch before sleeping, # 30 patch, 11 Refills, Maintenance, 11/01/20 11:26:00 EST, Patch, [facility]/pharmacy #2071, 165.1, cm, 09/26/20 9:02:00 EDT, Height, [...] 05/15/21 10:17:00 EDT, Route to Pharmacy Electronically, [facility]/pharmacy #[id number], 160, cm, 02/13/21 13:46:00 EDT, Height, 54.7, kg, 07/28/19 7:47:00 EDT, Dry Weight Start Date: 05/15/21 Status: OrderedTrelegy Ellipta 200 mcg-62.5 mcg-25 mcg/inh inhalation powder 1 puffs, By Mouth, Daily, TOME NAZ INHALACI N POR V A ORAL TODOS LOS D , # 1 each, 11 Refills, Maintenance, 08/22/21 11:46:00 EDT, Powder, [facility]/pharmacy #[id number], Partial fill upon patient request if theprescription is for a schedule II opioid drug., 1... Start Date: 08/22/21 Status: OrderedVitamin D3 5000 intl units oral capsule 1 capsule = 5,000 International_Units, By Mouth, Daily, with food, # 30 capsule, 6 Refills, Maintenance, 04/14/21 10:42:00 EDT, Capsule, [facility]/pharmacy #[id number], Please put instructions in Indonesian, 160, cm,02/13/21 13:46:00 EDT, Height, 54.7, kg, [...] Active 1positive bronchial challenge 2-092x-ray 2013 stable, adlfzxichb04878 x-ray, abvh6rtiwsw 5 kadlr3Pwlkbs emphysema per pulmo note per ovsrcanirhh1OHO negative 4-22-570qgeb (lateral basal segment of the left lower lobe), per CT 01-18-2009 done at [facility]9internal and external per 2011 syysdzbptzs16qvffxck consult written aqqrj81sha CT from [facility], associated with ureteral stone. mild left mpcuoawzhmomuv45mzj CT from [facility] , ER was notified 13not starting meds due to polypharmacy and vlywkomxrrfmc81Ujwfcgfo by Pulm in [place], stability on repeat CT Chest Sep 2020 per their zgyr76Whw 10mm nodule LUNG-RADS 4B 6on 2007 x-kys29jm 2009 [id number] DEXA: T-score lowest -3.719Rash developed 07/06/13 Social History Social History Type Response Smoking Status Former smoker; Other: per pt ; entered on: 04/21/18 Sex Male
--- OUTSIDE RECORDS SUMMARY | 2022-09-15 20:11 | XMS_ITS | Continuity of Care Document ---
:1945 Demographics Address [address] [place] [address] Mobile Preferred Language spa Marital Status Single Mormonism Affiliation Bahai Race Unknown Ethnic Group or Author Organization [facility] Address [address] [place] [phone]- Care Team Providers Name Role Phone Cal PRADO, Luz Simeon Primary Care Physician [facility] Medicine [address] [place] [address] Allergies, Adverse Reactions, Alerts Substance Reaction [...] Vaccine (oldterm)12 10/08/06 Given 1Result Comment: [09/24/2017] [facility] [id number] Note: VIS 7-123Admin Note: VIS given 06/23/11, croatian usph8Hvstu Note: VIS GIVEN 07/08/10 awktwbe9Dfgxhp Comment: [04/02/2016] VIS in Dominican econi3Ypdwx Note: sep 067Admin Note: vis given in Eokqrng0Blhwc Note: VIS given in Syifjou6Bftfy Note: VIS IN UKGVALW50Gonec Note: VIS in svehgff84Ksijm Note: VIS-MRQFF88Orjpk Note: VIS-GIVEN Medications 3cc Leur-Stephanie syringe, 22 [...] 15:20:00 EDT, Aerosol, Route to Pharmacy Electronically, [id number], [id number], 160, cm, 05/20/21 14:1... Start Date: 06/10/21 Status: Orderedalbuterol-ipratropium 3 mg-0.5 mg/3 ml inhalation solution 1 vials, Inhalation, 4 times a day, # 270 mL, 11 Refills, [id number], 23, USE 1 VIAL VIA NEBULIZER 4 TIMES A DAY, 160, cm, 06/11/22 14:31:00 EDT, Height Start Date: 06/17/22 Status: Orderedbetamethasone topical valerate 0.1% ointment 1 application, Topically, 2 times a day, For severe eczema, # 45 Gm, 11 Refills, Maintenance, 10/29/21 9:52:00 EST, Ointment, [facility]/pharmacy #207, instead of Fluocinonide, 1 application Topically 2 times a day,Instr:For severe eczema, 160, cm, 10/29/21... Start Date: 10/29/21 Status: Orderedcalcium (as carbonate)-vitamin D 500 mg-400 intl units oral tablet 1 tablet, By Mouth, 2 times a day, # 60 tablet, 11 Refills, Maintenance, 12/10/20 11:55:00 EST, Tablet, [facility]/pharmacy #207, Partial fill upon patient request if the prescription is for a schedule II opioid drug., 1 tablet By Mouth 2 times a day, 160,... Start Date: 12/10/20 Status: OrderedDaliresp 500 mcg oral tablet 1 tablet = 500 mcg, By Mouth, Daily, for COPD, # 90 tablet, 3 Refills, Maintenance, 02/13/21 13:50:00 EDT, [id number], 160, cm, 02/13/21 12:53:00 EDT, Height, 54.7, kg, 07/28/19 7:47:00 EDT, Dry Weight Start Date: 02/13/21 Status: Orderedduloxetine 30 mg oral enteric coated capsule 1 capsule = 30 mg, By Mouth, Daily, do not crush or chew. FOR CHRONIC PAIN, # 30 capsule, 5 Refills,Maintenance, 01/05/22 15:24:00 EST, CR Capsule, [facility]/pharmacy #[id number], Partial fill upon patient request if the prescription is for a schedule II opioid... Start Date: 01/05/22 Status: OrderedFreestyle Lite Lancets See Instructions, # 100 each, Refills 11, Tot. Refills 11, Maintenance, Dx: DM2, check BID, 02/25/2112:57:00 EDT, Supply, 160, cm, 02/13/21 13:46:00 EDT, Height, 54.7, kg, 07/28/19 7:47:00 EDT, Dry Weight Start Date: 02/24/21 Status: OrderedFREESTYLE LITE TEST STRIP FREESTYLE LITE TEST STRIP, See Instructions, # 100 Unknown, 10 Refills, USE TO CHECK BLOOD GLUCOSE 2TIMES A DAY, 160, cm, 04/29/22 11:20:00 EDT, Height Start Date: 05/27/22 Status: OrderedFreestyle Lite Test Strips See Instructions, [...] Daily, # 90 tablet, 3 Refills, Maintenance, 04/29/22 11:58:00 EDT, Tablet, [facility]/pharmacy #[id number], dose change 09/10/20, 160, cm, 04/29/22 11:20:00 EDT, Height Start Date: 04/29/22 Status: OrderedmetFORMIN 500 mg oral tablet 1 tablet = 500 mg, By Mouth, Daily, with meals, # 90 tablet, 3 Refills, Maintenance, 05/15/21 10:18:00 EDT, Tablet, [facility]/pharmacy #[id number], 160, cm, 02/13/21 13:46:00 EDT, Height, 54.7, kg, 07/28/19 7:47:00 EDT, Dry Weight Start Date: 05/15/21 Status: Orderedmirtazapine 7.5 mg oral tablet See Instructions, ANJELE NAZ TABLETA POR VIA ORAL AL ACOSTARSE, # 90 tablet, 3 Refills, [id number], 160, cm, 04/29/22 11:20:00 EDT, Height Start Date: 05/27/22 Status: Orderedmultivitamin Multiple Vitamins oral capsule 1 capsule, By Mouth, Daily, # 90 capsule, 3 Refills, Maintenance, 05/15/21 10:17:00 EDT, Capsule, [facility]/pharmacy #[id number], 1 capsule By Mouth Daily, 160, cm, 02/13/21 13:46:00 EDT, Height, 54.7, kg, 07/28/19 7:47:00 EDT, Dry Weight Start Date: 05/15/21 Status: Orderednabumetone 500 mg oral tablet 1 tablet = 500 mg, By Mouth, 2 times a day, for back pain with food, # 60 tablet, 2 Refills, Maintenance, 01/01/22 12:39:00 EST, Tablet, [facility], instructions in croatian, 160, cm, 01/01/22 10:25:00 EST, Height Start Date: 01/01/22 Status: OrderedNebulizer Machine Nebulizer Machine, See Instructions, [...] Refills, Maintenance, 11/01/20 11:26:00 EST, Patch, [id number], 165.1, cm, 09/26/20 9:02:00 EDT, Height, [...] Lifetime, 11/27/21 10:35:00... Start Date: 11/27/21 Status: OrderedNutritional Supplements See Instructions, # 90 each, Refills 5, Tot. Refills 5, Maintenance, Dispense:: Vanilla Ensure supplemental shakes Dx: Lung CA, weight loss, 05/08/22 13:00:00 EDT, Supply Start Date: 05/08/22 Status: Orderedomeprazole 20 mg oral enteric coated capsule 1 capsule = 20 mg, By Mouth, Daily, # 90 capsule, 3 Refills, Soft Stop, 08/22/21 11:44:00 EDT, [facility], 160, cm, 08/22/21 11:06:00 EDT, Height Start Date: 08/22/21 Status: OrderedpredniSONE 10 mg oral tablet See Instructions, 1.5 tablet By Mouth Daily, # 45 tablet, 2 Refills, Maintenance, 01/05/22 14:14:00 EST, [id number], Partial fill upon patient request if the prescription is for a schedule II opioid drug., 160, cm, 01/05/22 13:54:00 EST, Height Start Date: 01/05/22 Status: OrderedpredniSONE 10 mg oral tablet TOME NAZ VOGEL TOLAKSHMI LOS D Start Date: 08/22/21 Status: OrderedSingulair 10 mg oral tablet 10 mg, 1, tablet, By Mouth, Daily in PM, # 90 tablet, Refills 3, Tot. Refills 3, Maintenance, 05/15/21 10:17:00 EDT, Route to Pharmacy Electronically, [facility]/pharmacy #[id number], 160, cm, 02/13/21 13:46:00 EDT, Height, 54.7, kg, 07/28/19 7:47:00 EDT, Dry Weight Start Date: 05/15/21 Status: OrderedTestosterone Cypionate 200 mg/mL intramuscular solution See Instructions, INJECT 0.5 (HALF) ML INTRAMUSCULARLY EVERY 14 DAYS, # 2 mL, 5 Refills, Maintenance, 05/18/22 9:43:00 EDT, [facility]/pharmacy #207, 160, cm, 04/29/22 11:20:00 EDT, Height Start Date: 05/18/22 Status: Orderedtheophylline 400 mg/24 hours oral tablet, [...] 11 Refills, Maintenance, 08/22/21 11:46:00 EDT, Powder, [facility]/pharmacy #[id number], Partial fill upon patient request if theprescription is for a schedule II opioid drug., 1... Start Date: 08/22/21 Status: OrderedVitamin D3 5000 intl units oral capsule 1 capsule = 5,000 International_Units, By Mouth, Daily, with food, # 30 capsule, 6 Refills, Maintenance, 04/14/21 10:42:00 EDT, Capsule, [facility]/pharmacy #[id number], Please put instructions in Dominican, 160, cm,02/13/21 13:46:00 EDT, Height, 54.7, kg, [...] lumbar(Confirmed) Lung nodule(Confirmed) Active Hypogonadism male(Confirmed) Active Lung cancer(Confirmed) Active Microalbuminuria(Confirmed)14 01/03/19 Active Multiple lung nodules on 09/13/[address](Confirmed)15, 16 Non-small cell lung 06/07/22 Active cancer(Confirmed)17 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 Osteoarthritis of knee(Confirmed)19 12/2009 Active Osteoporosis(Confirmed)20 2011 Active 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 mild left fxpcetehkecmqg05Gzxxod stone Oct 2021, seeing hombqlc42mgc CT from [facility] , ER was notified 14not starting meds due to polypharmacy and ygquopcxmjuwo59Gtrasazf by Pulm in [place], stability on repeat CT Chest Sep 2020 per their wbpq72Pae 10mm nodule LUNG-RADS 4B 09/20/1917Followed by [place] [facility] Mcwoaqvaw78oj 2007 x-tmy30zv 2009 [id number] DEXA: T-score lowest -3.721Rash developed 07/06/13 Social History Social History Type Response Smoking Status Former smoker; Other: per pt ; entered on: 04/21/18 Sex Male
--- OUTSIDE RECORDS SUMMARY | 2022-09-15 20:11 | XMS_ITS | Continuity of Care Document ---
:1945 Demographics Address [address] [place] [address] Mobile Preferred Language es Marital Status Single Spiritism Affiliation Tenriism Race Unknown Ethnic Group or Author Organization [facility] Address [address] [place] [phone]- Care Team Providers Name Role Phone Cal PRADO, Luz Simeon Primary Care Physician [facility]): [facility]20 - 01/04/21 [facility] [address] [place] [phone]- Attending Physician: Latasha Dumont Admitting Physician: AdmLatahsa garrison Referring Physician: AdmtrLatasha Allergies, Adverse Reactions, Alerts Substance Reaction Severity Status doxycycline dizziness Active cephalexin rash Active gabapentin altered mental state Active Nicotine Patch1 Bronchospasm Active Nausea Dizzy varenicline C/O: itching Active Nausea Insomnia Proventil HFA Nausea Active 1see general med office note 4-3-09; [...] Vaccine (oldterm)12 10/08/06 Given 1Result Comment: [09/24/2017] [facility] [id number] Note: VIS 7-123Admin Note: VIS given 06/23/11, kittitian gaaf0Degby Note: VIS GIVEN 07/08/10 xgtpcyl2Xuplll Comment: [04/02/2016] VIS in Niuean iyxlk7Gltjw Note: sep 067Admin Note: vis given in Fxaipbp3Qaqje Note: VIS given in Eycuvhk0Uwkdi Note: VIS IN KPHLXLL84Owebf Note: VIS in ohuxncn63Ryjot Note: VIS-OUMEW09Scwmr Note: VIS-GIVEN Medications Accu-Chek Compact 17-Strip Drum [...] for pain, not to exceed 3000 mg/day Niuean instructions please, # 120 capsule, 0 Refills, [...] 10:06:00 EDT, Aerosol, Route to Pharmacy Electronically, [id number], [facility]/pharmacy #2071, 165.1, cm, 01/02/20 14:39:00 EST,... Start Date: 04/08/20 Status: Orderedalbuterol-ipratropium 3 mg-0.5 mg/3 ml inhalation solution 3 mL, Inhalation, 4 times a day, dx asthma J45, # 100 each, 11 Refills, Maintenance, 04/08/20 14:30:00 EDT, Solution, [facility]/pharmacy #2071, 3 mL Inhalation 4 times a day,Instr:dx asthma J45, 165.1, cm, 01/02/20 14:39:00 EST, Height, 54.7, kg, 07/28/19 7... Start Date: 04/08/20 Status: OrderedAnoro Ellipta 62.5 mcg-25 mcg/inh inhalation powder 1 puffs, Inhalation, Daily, # 60 each, 4 Refills, Maintenance, 12/07/20 12:11:00 EST, Powder, [facility]/pharmacy #2071, Partial fill upon patient request if the prescription is for a schedule II opioid drug., 1 puffs Inhalation Daily, 160, cm, 12/03/20 9:29... Start Date: 12/07/20 Status: Orderedatorvastatin 40 mg oral tablet TOME NAZ VALENTEA TOS LOS D? Start Date: 01/02/20 Status: Orderedbetamethasone topical valerate 0.1% ointment 1 application, Topically, 2 times a day, For severe eczema, # 45 Gm, 2 Refills, Maintenance, 04/29/20 14:00:00 EDT, Ointment, [facility]/pharmacy #2071, replaced Fluocinonide, 1 application Topically 2 times a day,Instr:For severe eczema, 165.1, cm, 01/02/20... Start Date: 04/29/20 Status: Orderedcalcium (as carbonate)-vitamin D 500 mg-400 intl units oral tablet 1 tablet, By Mouth, 2 times a day, # 60 tablet, 11 Refills, Maintenance, 12/10/20 11:55:00 EST, Tablet, [facility]/pharmacy #2071, Partial fill upon patient request if the prescription is for a schedule II opioid drug., 1 tablet By Mouth 2 times a day, 160,... Start Date: 12/10/20 Status: Orderedcapsaicin 0.025% topical cream 1 application, Topically, 2 times a day, to affected area avoid contact with face and eyes, # 45 Gm,1 Refills, Maintenance, 01/03/19 8:46:30 EST, Cream, instructions in Telugu please, 1 application Topically 2 times a [...] 5 Refills, Maintenance, 12/22/19 10:21:00 EST, Cream, [facility]/pharmacy #2071, 1 application Topically 2 times a day, 165.1, cm, 12/22/19 10:10:00 EST, Height, 54.7, kg, 07/28/19 7:47:00 EDT, Dry Weight Start Date: 12/22/19 Status: Orderedhydrocortisone 1% topical cream 1 application, Topically, 2 times a day, # 45 Gm, 3 Refills, Maintenance, 09/22/19 8:51:47 EDT, Cream, 1 application Topically 2 times a day Start Date: 09/22/19 Status: Orderedlevothyroxine 0.112 mg oral tablet 1 tablet = 112 mcg, By Mouth, Daily, # 90 tablet, 3 Refills, Maintenance, 09/10/20 8:40:00 EDT, Tablet, [facility]/pharmacy #2071, dose change 09/10/20, 165.1, cm, 01/02/20 14:39:00 EST, Height, 54.7, kg, 07/28/19 7:47:00 EDT, Dry Weight Start Date: 09/10/20 Status: OrderedmetFORMIN 500 mg oral tablet 1 tablet = 500 mg, By Mouth, Daily, with meals, # 30 tablet, 11 Refills, Maintenance, 03/21/20 8:36:00 EDT, Tablet, [facility]/pharmacy #207, 165.1, cm, 01/02/20 14:39:00 EST, Height, 54.7, kg, 07/28/19 7:47:00 EDT, Dry Weight Start Date: 03/21/20 Status: Orderedmirtazapine 7.5 mg oral tablet 1 tablet = 7.5 mg, By Mouth, Daily at bedtime, for appetite, # 30 tablet, 11 Refills, Maintenance, 12/22/19 10:17:00 EST, [facility]/pharmacy #2071, instructions in Niuean, 165.1, cm, 12/22/19 10:10:00 EST, Height, 54.7, kg, 07/28/19 7:47:00 EDT, Dry Weight Start Date: 12/22/19 Status: Orderedmultivitamin Multiple Vitamins oral capsule 1 capsule, By Mouth, Daily, # 90 capsule, 3 Refills, Maintenance, 12/22/19 10:33:00 EST, Capsule, [facility]/pharmacy #2071, 1 capsule By Mouth Daily, 165.1, cm, 12/22/19 10:10:00 EST, Height, 54.7, kg, 07/28/19 7:47:00 EDT, Dry Weight Start Date: 12/22/19 Status: Orderednabumetone 500 mg oral tablet 1 tablet = 500 mg, By Mouth, 2 times a day, for knee pain, # 60 tablet, 3 Refills, Maintenance, 08/18/20 13:38:00 EDT, Tablet, [facility]/pharmacy #2071, instructions in kittitian, 165.1, cm, 01/02/20 14:39:00 EST, Height, 54.7, [...] tablet, 3 Refills, Maintenance, 12/05/20 10:03:00 EST, [facility], 160, cm, 12/03/20 9:29:00 EST, Height, [...] 12/22/19 10:33:00 EST, Route to Pharmacy Electronically, [facility]/pharmacy #2071, 165.1, cm, 12/22/19 10:10:00 EST, Height, 54.7, kg, 07/28/19 7:47:00 EDT, Dry We... Start Date: 12/22/19 Status: Ordered Problem List Condition Effective Dates [...] Active 1positive bronchial challenge 2-2x-ray 2013 stable, [id number] x-ray, sjnk1ptathh 5 epmxp6Tfgrqb emphysema per pulmo note per -2011 dqjerfjiouw0KWL negative 2-59-200qxlq (lateral basal segment of the left lower lobe), per CT 01-18-2009 done at [facility]9internal and external per 2011 yciuorcxwov22rycmerr consult written lzobd47glk CT from [facility], associated with ureteral stone. mild left ojcovrmeauxcgz96hrz CT from [facility] , ER was notified 13not starting meds due to polypharmacy and cncvxmibdhhue92Uyo 10mm nodule LUNG-RADS 4B 5on 2007 x-ard86nz 2009 [id number] DEXA: T-score lowest -3.718Rash developed 07/06/13 Social History Social History Type Response Smoking Status Former smoker; Other: per pt ; entered on: 04/21/18 Sex Male
--- OUTSIDE RECORDS SUMMARY | 2022-09-15 20:11 | XMS_ITS | Continuity of Care Document ---
:1945 Demographics Address [address] [place] [address] Mobile Preferred Language es Marital Status Single Caodaism Affiliation Pentecostalism Race Unknown Ethnic Group or Author Organization [facility] Address [address] [place] [phone]- Care Team Providers Name Role Phone Cal PRADO, Luz Simeon Primary Care Physician [facility]): [facility] - 10[facility]25[facility]21 [facility] [address] [place] [phone]- Attending Physician: Latasha Dumont Admitting Physician: Admtr, Latasha Referring Physician: Admtr, Ar8 Allergies, Adverse Reactions, [...] Vaccine (oldterm)12 10/08/06 Given 1Result Comment: [09/24/2017] [facility] [id number] Note: VIS 7-123Admin Note: VIS given 06/23/11, emirati fdfa3Poxsy Note: VIS GIVEN 07/08/10 okxkjvy2Fkbhjb Comment: [04/02/2016] VIS in Gibraltarian dqawt3Ojrwz Note: augdmin Note: vis given in Pjqspvc7Kmsfs Note: VIS given in Ndsfyro5Ofojy Note: VIS IN PXYEBRL01Ejfxl Note: VIS in oxwtszc18Lysei Note: VIS-GFHME93Pxnjh Note: VIS-GIVEN Medications albuterol CFC free 90 mcg/inh inhalation aerosol 1, puffs, Inhalation, 4 times a day, PRN, dx: J45.909, # 1 each, Refills 5, Tot. Refills 5, Maintenance, 06/10/21 15:20:00 EDT, Aerosol, Route to Pharmacy Electronically, [id number], [facility]/pharmacy #2071, 160, cm, 05/20/21 14:1... Start [...] 1 Refills, Maintenance, 09/26/21 8:55:00 EDT, Tablet, [facility]/pharmacy #2071, dose change 09/10/20, 160, cm, 08/22/21 11:06:00 EDT, Height Start Date: 09/26/21 Status: OrderedmetFORMIN 500 mg oral tablet 1 tablet = 500 mg, By Mouth, Daily, with meals, # 90 tablet, 3 Refills, Maintenance, 05/15/21 10:18:00 EDT, Tablet, [facility]/pharmacy #2071, 160, cm, 02/13/21 13:46:00 EDT, Height, 54.7, kg, 07/28/19 7:47:00 EDT, Dry Weight Start Date: 05/15/21 Status: Orderedmirtazapine 7.5 mg oral tablet 1 tablet = 7.5 mg, By Mouth, Daily at bedtime, for appetite, # 90 tablet, 3 Refills, Maintenance, 05/15/21 10:16:00 EDT, [facility]/pharmacy #2071, instructions in Gibraltarian, 160, cm, 02/13/21 13:46:00 EDT, Height, 54.7, [...] 9:45:00 EDT, Tablet, [facility], instructions in emirati, 160, cm, 07/04/21 9:33:00 EDT,Height, 54.7, kg, [...] 05/15/21 10:17:00 EDT, Route to Pharmacy Electronically, [facility]/pharmacy #2071, 160, cm, 02/13/21 13:46:00 EDT, Height, 54.7, kg, 07/28/19 7:47:00 EDT, Dry Weight Start Date: 05/15/21 Status: OrderedTrelegy Ellipta 200 mcg-62.5 mcg-25 mcg/inh inhalation powder 1 puffs, By Mouth, Daily, TOME NAZ INHALACI N POR V A ORAL TODOS LOS D , # 1 each, 11 Refills, Maintenance, 08/22/21 11:46:00 EDT, Powder, [facility]/pharmacy #2071, Partial fill upon patient request if theprescription is for a schedule II opioid drug., 1... Start Date: 08/22/21 Status: OrderedVitamin D3 5000 intl units oral capsule 1 capsule = 5,000 International_Units, By Mouth, Daily, with food, # 30 capsule, 6 Refills, Maintenance, 04/14/21 10:42:00 EDT, Capsule, [facility]/pharmacy #2071, Please put instructions in Gibraltarian, 160, cm,02/13/21 13:46:00 EDT, Height, 54.7, kg, [...] Active 1positive bronchial challenge 2-092x-ray 2013 stable, yrxsyruorh91491 x-ray, kwqa0rypxel 5 jtlfy8Gxjdtd emphysema per pulmo note per srnwtjivecm3OPS negative 5-87-286aehl (lateral basal segment of the left lower lobe), per CT 01-18-2009 done at [facility]9internal and external per 2011 dtfjaxgfrgi81cfunhsm consult written xmxod83tzp CT from [facility], associated with ureteral stone. mild left gejsgybuxdudcv57iao CT from [facility] , ER was notified 13not starting meds due to polypharmacy and ximpoubfhwrpf55Ndjkybtn by Pulm in [place], stability on repeat CT Chest Sep 2020 per their sugf36Yoj 10mm nodule LUNG-RADS 4B 6on 2007 x-qzg81rq 2009 [id number] DEXA: T-score lowest -3.719Rash developed 07/06/13 Social History Social History Type Response Smoking Status Former smoker; Other: per pt ; entered on: 04/21/18 Sex Male
--- OUTSIDE RECORDS SUMMARY | 2022-09-15 20:11 | XMS_ITS | Continuity of Care Document ---
:1945 Demographics Address [address] [place] [address] Mobile Preferred Language es Marital Status Single Congregational Affiliation Voodoo Race Unknown Ethnic Group or Author Organization [facility] Address [address] [place] [address]- Care Team Providers Name Role Phone Cal PRADO, Luz Simeon Primary Care Physician [facility] - 05/17/21 [facility] [address] [place] [address]- Allergies, Adverse Reactions, Alerts Substance Reaction Severity [...] Vaccine (oldterm)12 10/08/06 Given 1Result Comment: [09/24/2017] [facility] [id number] Note: VIS 7-123Admin Note: VIS given 06/23/11, burkinan xsby7Audfn Note: VIS GIVEN 07/08/10 kpacadw2Jwslmt Comment: [04/02/2016] VIS in Palestinian nzovl3Nsxkx Note: sep 067Admin Note: vis given in Efjdmom1Huhfr Note: VIS given in Szsqfbm4Gmijy Note: VIS IN INVWNES61Mjojv Note: VIS in mxbuakd59Cdirf Note: VIS-VAZTC41Nbzfe Note: VIS-GIVEN Medications acetaminophen 500 mg oral capsule 2 capsule = 1,000 mg, By Mouth, 3 times a day, PRN for pain, not to exceed 3000 mg/day Palestinian instructions please, # 120 capsule, 0 Refills, Maintenance, 01/02/20 14:40:00 EST, Capsule, [facility]/pharmacy #[id number], 165.1, cm, 12/22/19 10:10:00 EST, Height, 5... Start Date: 01/02/20 Status: Orderedalbuterol CFC free 90 mcg/inh inhalation aerosol 1, puffs, Inhalation, 4 times a day, PRN, # 1 each, Refills 11, Tot. Refills 11, Maintenance, 05/15/21 10:18:00 EDT, Aerosol, Route to Pharmacy Electronically, [id number], [id number], 160, cm, 02/13/21 13:46:00 EDT, H... Start Date: 05/15/21 Status: Orderedalbuterol-ipratropium 3 mg-0.5 mg/3 ml inhalation solution 3 mL, Inhalation, 4 times a day, dx asthma J45, # 100 each, 11 Refills, Maintenance, 05/15/21 10:19:00 EDT, Solution, [id number], 3 mL Inhalation 4 times a day,Instr:dx asthma J45, 160, cm, 02/13/21 13:46:00 EDT, Height, 54.7, kg, 07/28/19 7:4... Start Date: 05/15/21 Status: Orderedbetamethasone topical valerate 0.1% ointment 1 application, Topically, 2 times a day, For severe eczema, # 45 Gm, 2 Refills, Maintenance, 05/15/21 10:19:00 EDT, Ointment, [facility]/pharmacy #207, instead of Fluocinonide, 1 application Topically 2 times a day,Instr:For severe eczema, 160, cm, 02/13/21... Start Date: 05/15/21 Status: Orderedcalcium (as carbonate)-vitamin D 500 mg-400 intl units oral tablet 1 tablet, By Mouth, 2 times a day, # 60 tablet, 11 Refills, Maintenance, 12/10/20 11:55:00 EST, Tablet, [facility]/pharmacy #207, Partial fill upon patient request if the prescription is for a schedule II opioid drug., 1 tablet By Mouth 2 times a day, 160,... Start Date: 12/10/20 Status: OrderedDaliresp 500 mcg oral tablet 1 tablet = 500 mcg, By Mouth, Daily, for COPD, # 90 tablet, 3 Refills, Maintenance, 02/13/21 13:50:00 EDT, [facility]/pharmacy #207, 160, cm, 02/13/21 12:53:00 [...] 05/15/21 10:16:00 EDT, [id number], instructions in Palestinian, 160, cm, 02/13/21 13:46:00 EDT, Height, 54.7, [...] 3 Refills, Maintenance, 08/18/20 13:38:00 EDT, Tablet, [facility]/pharmacy #207, instructions in burkinan, 165.1, cm, 01/02/20 14:39:00 EST, Height, 54.7, [...] 11 Refills, Maintenance, 11/01/20 11:26:00 EST, [facility], 1 lozenge By Mouth Every hour, [...] 3 Refills, Soft Stop, 08/18/20 13:37:00 EDT, [facility]/pharmacy #207, 165.1, cm, 01/02/20 14:39:00 EST, Height, 54.7, kg, 07/28/19 7:47:00 EDT, Dry Weight Start Date: 08/18/20 Status: OrderedpredniSONE 10 mg oral tablet 1 tablet = 10 mg, By Mouth, Daily, # 90 tablet, 3 Refills, Maintenance, 12/05/20 10:03:00 EST, [facility]/pharmacy #2071, 160, cm, 12/03/20 9:29:00 EST, Height, 54.7, kg, 07/28/19 7:47:00 EDT, Dry Weight Start Date: 12/05/20 Status: OrderedSingulair 10 mg oral tablet 10 mg, 1, tablet, By Mouth, Daily in PM, # 90 tablet, Refills 3, Tot. Refills 3, Maintenance, 05/15/21 10:17:00 EDT, Route to Pharmacy Electronically, [facility]/pharmacy #207, 160, cm, 02/13/21 13:46:00 [...] 6 Refills, Maintenance, 04/14/21 10:42:00 EDT, Capsule, [facility]/pharmacy #[id number], Please put instructions in Palestinian, 160, cm,02/13/21 13:46:00 EDT, Height, 54.7, kg, [...] Active 1positive bronchial challenge 2-092x-ray 2013 stable, brzicixezg03775 x-ray, uyca3kxowhq 5 hjxis5Cigtie emphysema per pulmo note per -2011 syvecgoopkw2FCF negative 2-06-148gpvh (lateral basal segment of the left lower lobe), per CT 01-18-2009 done at [facility]9internal and external per 2011 qmueujcsadd16eqqpvzp consult written wbhcb99zki CT from [facility], associated with ureteral stone. mild left xpivaglrmaygki76fuv CT from [facility] , ER was notified 13not starting meds due to polypharmacy and mnesaewaivsas67Wbgfvqzg by Pulm in [place], stability on repeat CT Chest Sep 2020 per their etwk19Hrz 10mm nodule LUNG-RADS 4B 6on 2007 x-zqg47zk 2009 [id number] DEXA: T-score lowest -3.719Rash developed 07/06/13 Social History Social History Type Response Smoking Status Former smoker; Other: per pt ; entered on: 04/21/18 Sex Male
--- OUTSIDE RECORDS SUMMARY | 2022-09-15 20:12 | XMS_ITS | Continuity of Care Document ---
:1945 Demographics Address [address] [place] [address] Mobile Preferred Language es Marital Status Single Hoahaoism Affiliation Voodoo Race Unknown Ethnic Group or Author Organization [facility] Address [address] [place] [address]- Care Team Providers Name Role Phone Cal PRADO, Luz Simeon Primary Care Physician [facility]): 12[facility]20 - 01/18/21 [facility] [address] [place] [address]- Allergies, Adverse Reactions, Alerts Substance Reaction Severity [...] Refusal Reason SARS-CoV-2 (COVID-19) mRNA BNT-162b2 vac 01/13/21 Given [...] (oldterm)12 10/08/06 Given 1Result Comment: [09/24/2017] [facility] [id number] Note: VIS 7-123Admin Note: VIS given 06/23/11, nigerian qccv2Oxbfv Note: VIS GIVEN 07/08/10 jqvfvzz1Soelto Comment: [04/02/2016] VIS in Ecuadorean uwqhr7Fvwxp Note: sep 067Admin Note: vis given in Zlugskq3Coafe Note: VIS given in Hppsdzv2Sharv Note: VIS IN UNLPNGU02Ooaoz Note: VIS in xsxpoam84Tesih Note: VIS-UUDJC48Mezzx Note: VIS-GIVEN Medications Accu-Chek Compact 17-Strip Drum [...] for pain, not to exceed 3000 mg/day Ecuadorean instructions please, # 120 capsule, 0 Refills, [...] 10:06:00 EDT, Aerosol, Route to Pharmacy Electronically, [id number], [facility]/pharmacy #[id number], 165.1, cm, 01/02/20 14:39:00 EST,... Start Date: 04/08/20 Status: Orderedalbuterol-ipratropium 3 mg-0.5 mg/3 ml inhalation solution 3 mL, Inhalation, 4 times a day, dx asthma J45, # 100 each, 11 Refills, Maintenance, 04/08/20 14:30:00 EDT, Solution, [facility]/pharmacy #2071, 3 mL Inhalation 4 times a day,Instr:dx asthma J45, 165.1, cm, 01/02/20 14:39:00 EST, Height, 54.7, kg, 07/28/19 7... Start Date: 04/08/20 Status: OrderedAnoro Ellipta 62.5 mcg-25 mcg/inh inhalation powder 1 puffs, Inhalation, Daily, # 60 each, 4 Refills, Maintenance, 12/07/20 12:11:00 EST, Powder, [facility]/pharmacy #2071, Partial fill upon patient request if the prescription is for a schedule II opioid drug., 1 puffs Inhalation Daily, 160, cm, 12/03/20 9:29... Start Date: 12/07/20 Status: Orderedatorvastatin 40 mg oral tablet TOME NAZ VALENTEA TOLAKSHMI LOS D? Start Date: 01/02/20 Status: Orderedbetamethasone topical valerate 0.1% ointment 1 application, Topically, 2 times a day, For severe eczema, # 45 Gm, 2 Refills, Maintenance, 04/29/20 14:00:00 EDT, Ointment, [facility]/pharmacy #2071, replaced Fluocinonide, 1 application Topically 2 times a day,Instr:For severe eczema, 165.1, cm, 01/02/20... Start Date: 04/29/20 Status: Orderedcalcium (as carbonate)-vitamin D 500 mg-400 intl units oral tablet 1 tablet, By Mouth, 2 times a day, # 60 tablet, 11 Refills, Maintenance, 12/10/20 11:55:00 EST, Tablet, [facility]/pharmacy #2071, Partial fill upon patient request if the prescription is for a schedule II opioid drug., 1 tablet By Mouth 2 times a day, 160,... Start Date: 12/10/20 Status: Orderedcapsaicin 0.025% topical cream 1 application, Topically, 2 times a day, to affected area avoid contact with face and eyes, # 45 Gm,1 Refills, Maintenance, 01/03/19 8:46:30 EST, Cream, instructions in Prydeinig please, 1 application Topically 2 times a [...] 12/22/19 10:21:00 EST, Cream, [facility]/pharmacy #2071, 1 application Topically 2 times a [...] 09/10/20 8:40:00 EDT, Tablet, [facility]/pharmacy #2071, dose change 09/10/20, 165.1, cm, 01/02/20 14:39:00 EST, Height, 54.7, kg, 07/28/19 7:47:00 EDT, Dry Weight Start Date: 09/10/20 Status: OrderedmetFORMIN 500 mg oral tablet 1 tablet = 500 mg, By Mouth, Daily, with meals, # 30 tablet, 11 Refills, Maintenance, 03/21/20 8:36:00 EDT, Tablet, [facility], 165.1, cm, 01/02/20 14:39:00 EST, Height, 54.7, kg, 07/28/19 7:47:00 EDT, Dry Weight Start Date: 03/21/20 Status: Orderedmirtazapine 7.5 mg oral tablet 1 tablet = 7.5 mg, By Mouth, Daily at bedtime, for appetite, # 30 tablet, 11 Refills, Maintenance, 12/22/19 10:17:00 EST, [facility], instructions in Ecuadorean, 165.1, cm, 12/22/19 10:10:00 EST, Height, 54.7, [...] 13:38:00 EDT, Tablet, [facility], instructions in nigerian, 165.1, cm, 01/02/20 14:39:00 EST, Height, 54.7, [...] Route to Pharmacy Electronically, [facility]/pharmacy #2071, 165.1, cm, 12/22/19 10:10:00 EST, Height, [...] Active 1positive bronchial challenge 2-2x-ray 2013 stable, kocforhfis41537 x-ray, duap3xrhebc 5 psdne3Nkczrp emphysema per pulmo note 05/18/per ddpmpfatinp5PRR negative 0-86-797sgog (lateral basal segment of the left lower lobe), per CT 01-18-2009 done at [facility]9internal and external per 2011 zuvsyfykhpp26csspqck consult written yzhur69rlh CT from [facility], associated with ureteral stone. mild left fspxjhgktpnvcr13jia CT from [facility] , ER was notified 13not starting meds due to polypharmacy and bllodqionsiyk19Ark 10mm nodule LUNG-RADS 4B 09/20/1915on 2007 x-sah76gs 2009 [id number] DEXA: T-score lowest -3.718Rash developed 07/06/13 Social History Social History Type Response Smoking Status Former smoker; Other: per pt ; entered on: 04/21/18 Sex Male
--- OUTSIDE RECORDS SUMMARY | 2022-09-15 20:12 | XMS_ITS | Continuity of Care Document ---
:1945 Demographics Address [address] [place] [address] Mobile Preferred Language spa Marital Status Single Faith Affiliation Mu-Ism Race Unknown Ethnic Group or Author Organization [facility] Address [address] [place] [address]- Care Team Providers Name Role Phone Cal PRADO, Luz Simeon Primary Care Physician [facility] - 03/05/22 [facility] [address] [place] [id number] Allergies, Adverse Reactions, Alerts Substance Reaction [...] (oldterm)12 10/08/06 Given 1Result Comment: [09/24/2017] [facility] [id number] Note: VIS 7-123Admin Note: VIS given 06/23/11, bahraini vskg8Thpxq Note: VIS GIVEN 07/08/10 tfjawmz7Lqkevi Comment: [04/02/2016] VIS in Maori omtdd2Yzyax Note: augdmin Note: vis given in Jrawfnh9Szekx Note: VIS given in Qazfpvi9Sadkv Note: VIS IN ZUOIJBH82Yrsrb Note: VIS in lyvlasc00Enjxo Note: VIS-MIXVE46Gscrs Note: VIS-GIVEN Medications 3cc Leur-Stephanie syringe, 22 [...] 15:20:00 EDT, Aerosol, Route to Pharmacy Electronically, [id number], [id number], 160, cm, 05/20/21 14:1... Start Date: 06/10/21 Status: Orderedalbuterol-ipratropium 3 mg-0.5 mg/3 ml inhalation solution 3 mL, Inhalation, 4 times a day, dx asthma J45, COPD J44.9, # 100 each, 11 Refills, Maintenance, 07/09/21 15:08:00 EDT, Solution, [facility], 3 mL Inhalation 4 times a day,Instr:dx asthma J45, COPD J44.9, 160, cm, 07/04/21 9:33:00 EDT, Height,... Start Date: 07/09/21 Status: Orderedbetamethasone topical valerate 0.1% ointment 1 application, Topically, 2 times a day, For severe eczema, # 45 Gm, 11 Refills, Maintenance, 10/29/21 9:52:00 EST, Ointment, [facility], instead of Fluocinonide, 1 application Topically 2 times a day,Instr:For severe eczema, 160, cm, 10/29/21... Start Date: 10/29/21 Status: Orderedcalcium (as carbonate)-vitamin D 500 mg-400 intl units oral tablet 1 tablet, By Mouth, 2 times a day, # 60 tablet, 11 Refills, Maintenance, 12/10/20 11:55:00 EST, Tablet, [facility], Partial fill upon patient request if the prescription is for a schedule II opioid drug., 1 tablet By Mouth 2 times a day, 160,... Start Date: 12/10/20 Status: OrderedDaliresp 500 mcg oral tablet 1 tablet = 500 mcg, By Mouth, Daily, for COPD, # 90 tablet, 3 Refills, Maintenance, 02/13/21 13:50:00 EDT, [facility], 160, cm, 02/13/21 12:53:00 EDT, Height, 54.7, kg, 07/28/19 7:47:00 EDT, Dry Weight Start Date: 02/13/21 Status: Orderedduloxetine 30 mg oral enteric coated capsule 1 capsule = 30 mg, By Mouth, Daily, do not crush or chew. FOR CHRONIC PAIN, # 30 capsule, 5 Refills,Maintenance, 01/05/22 15:24:00 EST, CR Capsule, [facility]/pharmacy #2071, Partial fill upon patient request [...] 1 Refills, Maintenance, 09/26/21 8:55:00 EDT, Tablet, [facility]/pharmacy #207, dose change 09/10/20, 160, cm, 08/22/21 11:06:00 EDT, Height Start Date: 09/26/21 Status: OrderedmetFORMIN 500 mg oral tablet 1 tablet = 500 mg, By Mouth, Daily, with meals, # 90 tablet, 3 Refills, Maintenance, 05/15/21 10:18:00 EDT, Tablet, [facility]/pharmacy #207, 160, cm, 02/13/21 13:46:00 EDT, Height, 54.7, kg, 07/28/19 7:47:00 EDT, Dry Weight Start Date: 05/15/21 Status: Orderedmirtazapine 7.5 mg oral tablet 1 tablet = 7.5 mg, By Mouth, Daily at bedtime, for appetite, # 90 tablet, 3 Refills, Maintenance, 05/15/21 10:16:00 EDT, [id number], instructions in Maori, 160, cm, 02/13/21 13:46:00 EDT, Height, 54.7, [...] 2 Refills, Maintenance, 01/01/22 12:39:00 EST, Tablet, [facility], instructions in bahraini, 160, cm, 01/01/22 10:25:00 EST, Height Start [...] 11 Refills, Maintenance, 11/01/20 11:26:00 EST, Patch, [facility]/pharmacy #207, 165.1, cm, 09/26/20 9:02:00 EDT, [...] 3 Refills, Soft Stop, 08/22/21 11:44:00 EDT, [facility]/pharmacy #2071, 160, cm, 08/22/21 11:06:00 EDT, Height Start Date: 08/22/21 Status: OrderedPEG-3350 with Electrolytes (Eqv-GoLYTELY) oral powder for reconstitution See Instructions, Take the day before your colnoscopy as directed by provider, # 1 each, 0 Refills, Maintenance, 02/02/22 14:55:00 EST, [facility], Partial fill upon patient request if the prescription is for a schedule II opioid drug.... Start Date: 02/02/22 Status: OrderedpredniSONE 10 mg oral tablet See Instructions, 1.5 tablet By Mouth Daily, # 45 tablet, 2 Refills, Maintenance, 01/05/22 14:14:00 EST, [facility]/pharmacy #2071, Partial fill upon patient request if the prescription is for a schedule II opioid drug., 160, cm, 01/05/22 13:54:00 EST, Height Start Date: 01/05/22 Status: OrderedpredniSONE 10 mg oral tablet TOME NAZ TABLETA TODOS LOS D Start Date: 08/22/21 Status: OrderedReadi-Cat 2 oral suspension See Instructions, For use with CT scan, # 2 each, 0 Refills, Maintenance, 02/04/22 14:06:00 EST, [facility], Partial fill upon patient request if the prescription is for a schedule II opioid drug., For use with CT scan, 160, cm, ... Start Date: 02/04/22 Status: OrderedSingulair 10 mg oral tablet 10 mg, 1, tablet, By Mouth, Daily in PM, # 90 tablet, Refills 3, Tot. Refills 3, Maintenance, 05/15/21 10:17:00 EDT, Route to Pharmacy Electronically, [facility]/pharmacy #[id number], 160, cm, 02/13/21 13:46:00 EDT, Height, 54.7, kg, 07/28/19 7:47:00 EDT, Dry Weight Start Date: 05/15/21 Status: OrderedTestosterone Cypionate 200 mg/mL intramuscular solution = 100 mg, Intramuscular, Every 14 days, # 2 mL, 4 Refills, Maintenance, 11/06/21 17:01:00 EST, [facility]/pharmacy #[id number], 160, cm, 11/04/21 9:21:00 EST, [...] 11 Refills, Maintenance, 08/22/21 11:46:00 EDT, Powder, [facility]/pharmacy #2071, Partial fill upon patient request if theprescription is for a schedule II opioid drug., 1... Start Date: 08/22/21 Status: OrderedVitamin D3 5000 intl units oral capsule 1 capsule = 5,000 International_Units, By Mouth, Daily, with food, # 30 capsule, 6 Refills, Maintenance, 04/14/21 10:42:00 EDT, Capsule, [id number], Please put instructions in Maori, 160, cm,02/13/21 13:46:00 EDT, Height, 54.7, kg, [...] polyneuropathy(Confirmed)20 Smoker(Confirmed) Active Thrush(Confirmed) Active Tobacco abuse(Confirmed) 1960 Active 1positive bronchial challenge 2-092x-ray 2013 stable, hgvhazhhiq85045 x-ray, vmrz3zoaxph 5 ykzkm8Gqzygv emphysema per pulmo note per vbpctcpvjli5QNB negative 5-50-391evgo (lateral basal segment of the left lower lobe), per CT 01-18-2009 done at [facility]9internal and external per 2011 idyukvhxvvq48mqhbnxv consult written sdyyk51olz CT from [facility], associated with ureteral stone. mild left zmoqfolnakmiaz03Ikzbzb stone Oct 2021, seeing pbtfgxf90nli CT from [facility] , ER was notified 14not starting meds due to polypharmacy and yidnbuogjslbd15Rkbgblhs by [facility] in [place], stability on repeat CT Chest Sep 2020 per their xrxi03Nfu 10mm nodule LUNG-RADS 4B 7on 2007 x-tla12jz 2009 [id number] DEXA: T-score lowest -3.720Rash developed 07/06/13 Social History Social History Type Response Smoking Status Former smoker; Other: per pt ; entered on: 04/21/18 Sex Male
--- OUTSIDE RECORDS SUMMARY | 2022-09-15 20:12 | XMS_ITS | Continuity of Care Document ---
:1945 Demographics Address [address] [place] [address] Mobile Preferred Language es Marital Status Single Scientologist Affiliation Nondenominational Race Unknown Ethnic Group or Author Organization [facility] Address [address] [place] [phone]- Care Team Providers Name Role Phone Cal PRADO, Luz Simeon Primary Care Physician Encounter [facility] Date(s): 08/11/21 - 09/21/21 [facility] [address] [place] [address]- Attending Physician: aCl PRADO, Luz Simeon Admitting Physician: Cal PRADO, [...] (oldterm)12 10/08/06 Given 1Result Comment: [09/24/2017] [facility] [id number] Note: VIS 7-123Admin Note: VIS given 06/23/11, bruneian qcvl3Gvtiz Note: VIS GIVEN 07/08/10 xmutfta5Xawnds Comment: [04/02/2016] VIS in Martiniquais qftyd0Czdui Note: sep 067Admin Note: vis given in Umemvhr1Dxnid Note: VIS given in Vnrbips7Wxejz Note: VIS IN QCRNMQF83Pfjyp Note: VIS in mdkgdnu24Dsuur Note: VIS-UIJBB36Vhyeu Note: VIS-GIVEN Medications albuterol CFC free 90 mcg/inh inhalation aerosol 1, puffs, Inhalation, 4 times a day, PRN, dx: J45.909, # 1 each, Refills 5, Tot. Refills 5, Maintenance, 06/10/21 15:20:00 EDT, Aerosol, Route to Pharmacy Electronically, [id number], [facility]/pharmacy #[id number], 160, cm, 05/20/21 14:1... Start Date: [...] 2 Refills, Maintenance, 07/04/21 9:57:00 EDT, Ointment, [facility]/pharmacy #[id number], instead of Fluocinonide, 1 application Topically 2 timesa day,Instr:For severe eczema, 160, cm, 07/04/21... Start Date: 07/04/21 Status: Orderedcalcium (as carbonate)-vitamin D 500 mg-400 intl units oral tablet 1 tablet, By Mouth, 2 times a day, # 60 tablet, 11 Refills, Maintenance, 12/10/20 11:55:00 EST, Tablet, [facility]/pharmacy #207, Partial fill upon patient request if [...] 1 Refills,Maintenance, 07/04/21 9:48:00 EDT, CR Capsule, [facility]/pharmacy #2071, Partial fill upon patient requestif the [...] 3 Refills, Maintenance, 09/10/20 8:40:00 EDT, Tablet, [facility]/pharmacy #207, dose change 09/10/20, 165.1, cm, 01/02/20 14:39:00 EST, Height, 54.7, kg, 07/28/19 7:47:00 EDT, Dry Weight Start Date: 09/10/20 Status: OrderedmetFORMIN 500 mg oral tablet 1 tablet = 500 mg, By Mouth, Daily, with meals, # 90 tablet, 3 Refills, Maintenance, 05/15/21 10:18:00 EDT, Tablet, [facility]/pharmacy #207, 160, cm, 02/13/21 13:46:00 EDT, Height, 54.7, kg, 07/28/19 7:47:00 EDT, Dry Weight Start Date: 05/15/21 Status: Orderedmirtazapine 7.5 mg oral tablet 1 tablet = 7.5 mg, By Mouth, Daily at bedtime, for appetite, # 90 tablet, 3 Refills, Maintenance, 05/15/21 10:16:00 EDT, [id number], instructions in Martiniquais, 160, cm, 02/13/21 13:46:00 EDT, Height, 54.7, kg, 07/28/19 7:47:00 EDT, Dry Weight Start Date: 05/15/21 Status: Orderedmultivitamin Multiple Vitamins oral capsule 1 capsule, By Mouth, Daily, # 90 capsule, 3 Refills, Maintenance, 05/15/21 10:17:00 EDT, Capsule, [facility], 1 capsule By Mouth Daily, 160, cm, 02/13/21 13:46:00 EDT, Height, 54.7, kg, 07/28/19 7:47:00 EDT, Dry Weight Start Date: 05/15/21 Status: Orderednabumetone 500 mg oral tablet 1 tablet = 500 mg, By Mouth, 2 times a day, for knee pain, # 60 tablet, 3 Refills, Maintenance, 07/04/21 9:45:00 EDT, Tablet, [facility]/pharmacy #2071, instructions in bruneian, 160, cm, 07/04/21 9:33:00 EDT,Height, 54.7, kg, [...] 08/22/21 Status: OrderedpredniSONE 10 mg oral tablet BAHMAN Arauz Start Date: 08/22/21 Status: OrderedSingulair 10 mg oral tablet 10 mg, 1, tablet, By Mouth, Daily in PM, # 90 tablet, Refills 3, Tot. Refills 3, Maintenance, 05/15/21 10:17:00 EDT, Route to Pharmacy Electronically, [facility]/pharmacy #[id number], 160, cm, 02/13/21 13:46:00 EDT, Height, 54.7, kg, 07/28/19 7:47:00 EDT, Dry Weight Start Date: 05/15/21 Status: OrderedTrelegy Ellipta 200 mcg-62.5 mcg-25 mcg/inh inhalation powder 1 puffs, By Mouth, Daily, TOME NAZ INHALACI N POR V A ORAL TODOS LOS D , # 1 each, 11 Refills, Maintenance, 08/22/21 11:46:00 EDT, Powder, [facility]/pharmacy #[id number], Partial fill upon patient request if theprescription is for a schedule II opioid drug., 1... Start Date: 08/22/21 Status: OrderedVitamin D3 5000 intl units oral capsule 1 capsule = 5,000 International_Units, By Mouth, Daily, with food, # 30 capsule, 6 Refills, Maintenance, 04/14/21 10:42:00 EDT, Capsule, [facility]/pharmacy #[id number], Please put instructions in Martiniquais, 160, cm,02/13/21 13:46:00 EDT, Height, 54.7, kg, [...] Active 1positive bronchial challenge 2-092x-ray 2013 stable, uxjuixmxkc99260 x-ray, yuto0shifib 5 widot6Kevgkz emphysema per pulmo note per lzxucxuzasq6DZM negative 0-82-164shxy (lateral basal segment of the left lower lobe), per CT 01-18-2009 done at [facility]9internal and external per 2011 uetbhseqyvc68zyiyuzd consult written [id number] CT from [facility], associated with ureteral stone. mild left ixoxrsijtafmoq67odl CT from [facility] , ER was notified 13not starting meds due to polypharmacy and ayuxshuelxvei65Hqwwnoqg by Pulm in [place], stability on repeat CT Chest Sep 2020 per their rnin35Wvy 10mm nodule LUNG-RADS 4B 6on 2007 x-pgo48su 2009 [id number] DEXA: T-score lowest -3.719Rash developed 07/06/13 Social History Social History Type Response Smoking Status Former smoker; Other: per pt ; entered on: 04/21/18 Sex Male
--- OUTSIDE RECORDS SUMMARY | 2022-09-15 20:12 | XMS_ITS | Continuity of Care Document ---
:1945 Demographics Address [address] [place] [address] Mobile Preferred Language es Marital Status Single Caodaism Affiliation Anabaptist Race Unknown Ethnic Group or Author Organization [facility] Address [address] [place] [address]- Care Team Providers Name Role Phone Cal PRADO, Luz Simeon Primary Care Physician [place] [facility] [place]): 05/17/20 - 06/26/[address] [address]- [facility] Attending Physician: Sharona Pedroza NP Allergies, Adverse [...] Comment: [09/24/2017] [facility] [phone] Note: VIS 7-123Admin Note: VIS given 06/23/11, guinean wvcm8Btvqa Note: VIS GIVEN 07/08/10 ynywudd8Gkedjk Comment: [04/02/2016] VIS in Cook Islander fpjnm5Xobow Note: sep 067Admin Note: vis given in Jhxepjo7Ezimy Note: VIS given in Mvunrra0Qjygl Note: VIS IN LNCFMDC87Zucai Note: VIS in qvpdrqo82Uuadf Note: VIS-ITGGD30Ouaga Note: VIS-GIVEN Medications Accu-Chek Compact 17-Strip Drum [...] for pain, not to exceed 3000 mg/day Cook Islander instructions please, # 120 capsule, 0 Refills, Maintenance, 01/02/20 14:40:00 EST, Capsule, [facility]/pharmacy #2071, 165.1, cm, 12/22/19 10:10:00 EST, Height, [...] 10:06:00 EDT, Aerosol, Route to Pharmacy Electronically, [id number], [facility]/pharmacy #207, 165.1, cm, 01/02/20 14:39:00 EST,... Start Date: 04/08/20 Status: Orderedalbuterol-ipratropium 3 mg-0.5 mg/3 ml inhalation solution 3 mL, Inhalation, 4 times a day, dx asthma J45, # 100 each, 11 Refills, Maintenance, 04/08/20 14:30:00 EDT, Solution, [facility]/pharmacy #2071, 3 mL Inhalation 4 times a day,Instr:dx asthma J45, 165.1, cm, 01/02/20 14:39:00 EST, Height, 54.7, kg, 07/28/19 7... Start Date: 04/08/20 Status: Orderedatorvastatin 40 mg oral tablet TOME NZA TABLETA TODOS LOS D? Start Date: 01/02/20 Status: Orderedbetamethasone topical valerate 0.1% ointment 1 application, Topically, 2 times a day, For severe eczema, # 45 Gm, 2 Refills, Maintenance, 04/29/20 14:00:00 EDT, Ointment, [facility]/pharmacy #2070, replaced Fluocinonide, 1 application Topically 2 [...] Maintenance, 01/03/19 8:46:30 EST, Cream, instructions in Zimbabwean please, 1 application Topically 2 times a [...] 5 Refills, Maintenance, 12/22/19 10:21:00 EST, Cream, [facility]/pharmacy #2071, 1 application Topically 2 times a day, 165.1, cm, 12/22/19 10:10:00 EST, Height, 54.7, kg, 07/28/19 7:47:00 EDT, Dry Weight Start Date: 12/22/19 Status: Orderedfluticasone-salmeterol 232 mcg-14 mcg/inh inhalation powder 1 inhalation, Inhalation, 2 times a day, rinse mouth and throat after use, # 1 each, 11 Refills, Maintenance, 03/21/20 8:53:00 EDT, Powder, [facility]/pharmacy #2071, 1 inhalation Inhalation 2 times a [...] 11 Refills, Maintenance, 03/21/20 8:36:00 EDT, Tablet, [facility]/pharmacy #207, 165.1, cm, 01/02/20 14:39:00 EST, Height, 54.7, kg, 07/28/19 7:47:00 EDT, Dry Weight Start Date: 03/21/20 Status: Orderedmirtazapine 7.5 mg oral tablet 1 tablet = 7.5 mg, By Mouth, Daily at bedtime, for appetite, # 30 tablet, 11 Refills, Maintenance, 12/22/19 10:17:00 EST, [facility], instructions in Cook Islander, 165.1, cm, 12/22/19 10:10:00 EST, Height, 54.7, [...] Maintenance, 08/02/19 11:35:19 EDT, Tablet, instructions in guinean Start Date: 08/02/19 Status: OrderedNebulizer/Compressor See Instructions, # 1 each, Maintenance, D: COPD severe, Gold Ct 4 For use PRN Q4hr for shortness ofbreath, 12/22/19 10:19:00 EST, Compound Start Date: 12/22/19 Status: Orderedomeprazole 20 mg oral enteric coated capsule 1 capsule = 20 mg, By Mouth, Daily, # 90 capsule, 3 Refills, Soft Stop, 12/22/19 10:33:00 EST, [facility], 165.1, cm, 12/22/19 10:10:00 EST, Height, 54.7, kg, 07/28/19 7:47:00 EDT, Dry Weight Start Date: 12/22/19 Status: OrderedpredniSONE 10 mg oral tablet 1 tablet = 10 mg, By Mouth, Daily, # 90 tablet, 3 Refills, Maintenance, 03/16/20 9:39:00 EDT, [facility]/pharmacy #2071, 165.1, cm, 01/02/20 14:39:00 EST, Height, [...] 12/22/19 10:33:00 EST, Route to Pharmacy Electronically, [facility]/pharmacy #2071, 165.1, cm, 12/22/19 10:10:00 EST, Height, [...] Active 1positive bronchial challenge 2-092x-ray 2013 stable, [id number] x-ray, ndbd2ljbezx 5 navbq7Mktfcz emphysema per pulmo note per mkdqirbxrvd6DSW negative 5-41-810tyly (lateral basal segment of the left lower lobe), per CT 01-18-2009 done at [facility]9internal and external per 2011 mrkcbqgqsoy96zbijpaj consult written ancpu67aqq CT from [facility], associated with ureteral stone. mild left uqwqgwrteyepzo33kpq CT from [facility] , ER was notified 13not starting meds due to polypharmacy and eyxpqjdxwyyef66Zmv 10mm nodule LUNG-RADS 4B 09/20/1915on 2007 x-wxb93jp 2009 [id number] DEXA: T-score lowest -3.718Rash developed 07/06/13 Social History Social History Type Response Smoking Status Former smoker; Other: per pt ; entered on: 04/21/18 Sex Male
--- OUTSIDE RECORDS SUMMARY | 2022-09-15 20:12 | XMS_ITS | Continuity of Care Document ---
:1945 Demographics Address [address] [place] [address] Mobile Preferred Language es Marital Status Single Anabaptist Affiliation Baptist Race Unknown Ethnic Group or Author Organization [facility] Address [address] [place] [address]- Care Team Providers Name Role Phone Cal PRADO, Luz Simeon Primary Care Physician [facility]counter [facility] Date(s): 12/03/20 - 01/02/21 [facility] [address] [place] [address] Attending Physician: Latasha Dumont Admitting Physician: AdmLatasha garrison Referring Physician: Admtr ArFarhad Allergies, Adverse Reactions, Alerts Substance Reaction Severity [...] Vaccine (oldterm)12 10/08/06 Given 1Result Comment: [09/24/2017] [facility] [id number] Note: VIS 7-123Admin Note: VIS given 06/23/11, north korean exfa5Knbmw Note: VIS GIVEN 07/08/10 pyliakt2Lzwlvv Comment: [04/02/2016] VIS in Martiniquais fuhsp6Xwhjd Note: sep 067Admin Note: vis given in Mxeqjyp4Uohwv Note: VIS given in Rotsinp2Hyqwk Note: VIS IN BHLVEFB10Clyno Note: VIS in vxhamqp70Zrogr Note: VIS-XCMYP21Ularv Note: VIS-GIVEN Medications Accu-Chek Compact 17-Strip Drum [...] for pain, not to exceed 3000 mg/day Martiniquais instructions please, # 120 capsule, 0 Refills, [...] 10:06:00 EDT, Aerosol, Route to Pharmacy Electronically, [id number], [facility]/pharmacy #2071, 165.1, cm, 01/02/20 14:39:00 EST,... Start Date: 04/08/20 Status: Orderedalbuterol-ipratropium 3 mg-0.5 mg/3 ml inhalation solution 3 mL, Inhalation, 4 times a day, dx asthma J45, # 100 each, 11 Refills, Maintenance, 04/08/20 14:30:00 EDT, Solution, [facility]/pharmacy #2071, 3 mL Inhalation 4 times a day,Instr:dx asthma J45, 165.1, cm, 01/02/20 14:39:00 EST, Height, 54.7, kg, 07/28/19 7... Start Date: 04/08/20 Status: OrderedAnoro Ellipta 62.5 mcg-25 mcg/inh inhalation powder 1 puffs, Inhalation, Daily, # 60 each, 4 Refills, Maintenance, 12/07/20 12:11:00 EST, Powder, [facility]/pharmacy #2071, Partial fill upon patient request if [...] 2 Refills, Maintenance, 04/29/20 14:00:00 EDT, Ointment, [facility]/pharmacy #2071, replaced Fluocinonide, 1 application Topically 2 times a day,Instr:For severe eczema, 165.1, cm, 01/02/20... Start Date: 04/29/20 Status: Orderedcalcium (as carbonate)-vitamin D 500 mg-400 intl units oral tablet 1 tablet, By Mouth, 2 times a day, # 60 tablet, 11 Refills, Maintenance, 12/10/20 11:55:00 EST, Tablet, [facility]/pharmacy #2071, Partial fill upon patient request if the prescription is for a schedule II opioid drug., 1 tablet By Mouth 2 times a day, 160,... Start Date: 12/10/20 Status: Orderedcapsaicin 0.025% topical cream 1 application, Topically, 2 times a day, to affected area avoid contact with face and eyes, # 45 Gm,1 Refills, Maintenance, 01/03/19 8:46:30 EST, Cream, instructions in Ukrainian please, 1 application Topically 2 times a [...] 3 Refills, Maintenance, 09/10/20 8:40:00 EDT, Tablet, [facility]/pharmacy #2071, dose change 09/10/20, 165.1, cm, 01/02/20 14:39:00 EST, Height, 54.7, kg, 07/28/19 7:47:00 EDT, Dry Weight Start Date: 09/10/20 Status: OrderedmetFORMIN 500 mg oral tablet 1 tablet = 500 mg, By Mouth, Daily, with meals, # 30 tablet, 11 Refills, Maintenance, 03/21/20 8:36:00 EDT, Tablet, [facility]/pharmacy #207, 165.1, cm, 01/02/20 14:39:00 EST, Height, 54.7, kg, 07/28/19 7:47:00 EDT, Dry Weight Start Date: 03/21/20 Status: Orderedmirtazapine 7.5 mg oral tablet 1 tablet = 7.5 mg, By Mouth, Daily at bedtime, for appetite, # 30 tablet, 11 Refills, Maintenance, 12/22/19 10:17:00 EST, [facility]/pharmacy #2071, instructions in Martiniquais, 165.1, cm, 12/22/19 10:10:00 EST, Height, 54.7, [...] 3 Refills, Maintenance, 08/18/20 13:38:00 EDT, Tablet, [facility]/pharmacy #2071, instructions in north korean, 165.1, cm, 01/02/20 14:39:00 EST, Height, 54.7, [...] Active 1positive bronchial challenge 2-2x-ray 2013 stable, buqgeirjpq00085 x-ray, xvef4zcapsu 5 ykzev4Cowlhd emphysema per pulmo note per -2011 lwoqljlicmq2CCR negative 6-46-550vohp (lateral basal segment of the left lower lobe), per CT 01-18-2009 done at [facility]9internal and external per 2011 kietntcdepx35keyggfq consult written xzocm57src CT from [facility], associated with ureteral stone. mild left ymeamhwyngtwll09osx CT from [facility] , ER was notified 13not starting meds due to polypharmacy and fwuzfpkwaqzlk24Iex 10mm nodule LUNG-RADS 4B 5on 2007 x-vdu62kw 2009 [id number] DEXA: T-score lowest -3.718Rash developed 07/06/13 Social History Social History Type Response Smoking Status Former smoker; Other: per pt ; entered on: 04/21/18 Sex Male
--- OUTSIDE RECORDS SUMMARY | 2022-09-15 20:12 | XMS_ITS | Continuity of Care Document ---
:1945 Demographics Address [address] [place] [address] Mobile Preferred Language es Marital Status Single Zoroastrian Affiliation Church Race Unknown Ethnic Group or Author Organization [address], [address] [place] [address]- Care Team Providers Name Role Phone Cal PRADO, Luz Simeon Primary Care Physician Encounter [facility] Date(s): 05/20/21 - 06/19/[address], [address] [place], [place] [address] Attending Physician: Latasha Dumont Admitting Physician: Admtr, [...] Comment: [09/24/2017] [facility] [phone] Note: VIS 7-123Admin Note: VIS given 06/23/11, ukrainian auze8Casds Note: VIS GIVEN 07/08/10 eqblkhi4Oodpie Comment: [04/02/2016] VIS in Kuwaiti qqcqu2Advir Note: sep 067Admin Note: vis given in Kdvsara8Ygptd Note: VIS given in Ltpgmay0Lsvdx Note: VIS IN VWOOKET10Zhxyi Note: VIS in zurquga80Hrfdc Note: VIS-NCOPQ44Wafaz Note: VIS-GIVEN Medications acetaminophen 500 mg oral capsule 2 capsule = 1,000 mg, By Mouth, 3 times a day, PRN for pain, not to exceed 3000 mg/day Kuwaiti instructions please, # 120 capsule, 0 Refills, Maintenance, 01/02/20 14:40:00 EST, Capsule, [facility]/pharmacy #2071, 165.1, cm, 12/22/19 10:10:00 EST, Height, 5... Start Date: 01/02/20 Status: Orderedalbuterol CFC free 90 mcg/inh inhalation aerosol 1, puffs, Inhalation, 4 times a day, PRN, dx: J45.909, # 1 each, Refills 5, Tot. Refills 5, Maintenance, 06/10/21 15:20:00 EDT, Aerosol, Route to Pharmacy Electronically, [id number], [facility]/pharmacy #2071, 160, cm, 05/20/21 14:1... Start Date: 06/10/21 Status: Orderedalbuterol-ipratropium 3 mg-0.5 mg/3 ml inhalation solution 3 mL, Inhalation, 4 times a day, dx asthma J45, COPD J44.9, # 100 each, 11 Refills, Maintenance, 06/13/21 10:35:00 EDT, Solution, [facility]/pharmacy #2071, 3 mL Inhalation 4 times a day,Instr:dx asthma J45, COPD J44.9, 160, cm, 05/20/21 14:12:00 EDT, Height... Start Date: 06/13/21 Status: Orderedbetamethasone topical valerate 0.1% ointment 1 application, Topically, 2 times a day, For severe eczema, # 45 Gm, 2 Refills, Maintenance, 05/15/21 10:19:00 EDT, Ointment, [facility], instead of Fluocinonide, 1 application Topically 2 times a day,Instr:For severe eczema, 160, cm, 02/13/21... Start Date: 05/15/21 Status: Orderedcalcium (as carbonate)-vitamin D 500 mg-400 intl units oral tablet 1 tablet, By Mouth, 2 times a day, # 60 tablet, 11 Refills, Maintenance, 12/10/20 11:55:00 EST, Tablet, [facility]/pharmacy #207, Partial fill upon patient [...] 3 Refills, Maintenance, 09/10/20 8:40:00 EDT, Tablet, [facility]/pharmacy #2071, dose change 09/10/20, 165.1, cm, 01/02/20 14:39:00 EST, Height, 54.7, kg, 07/28/19 7:47:00 EDT, Dry Weight Start Date: 09/10/20 Status: OrderedmetFORMIN 500 mg oral tablet 1 tablet = 500 mg, By Mouth, Daily, with meals, # 90 tablet, 3 Refills, Maintenance, 05/15/21 10:18:00 EDT, Tablet, [facility]/pharmacy #2071, 160, cm, 02/13/21 13:46:00 EDT, Height, 54.7, kg, 07/28/19 7:47:00 EDT, Dry Weight Start Date: 05/15/21 Status: Orderedmirtazapine 7.5 mg oral tablet 1 tablet = 7.5 mg, By Mouth, Daily at bedtime, for appetite, # 90 tablet, 3 Refills, Maintenance, 05/15/21 10:16:00 EDT, [facility], instructions in Kuwaiti, 160, cm, 02/13/21 13:46:00 EDT, Height, 54.7, [...] 13:38:00 EDT, Tablet, [facility], instructions in ukrainian, 165.1, cm, 01/02/20 14:39:00 EST, Height, 54.7, [...] 3 Refills, Soft Stop, 08/18/20 13:37:00 EDT, [facility]/pharmacy #207, 165.1, cm, 01/02/20 14:39:00 EST, Height, 54.7, kg, 07/28/19 7:47:00 EDT, Dry Weight Start Date: 08/18/20 Status: OrderedpredniSONE 10 mg oral tablet 1 tablet = 10 mg, By Mouth, Daily, # 90 tablet, 3 Refills, Maintenance, 12/05/20 10:03:00 EST, [facility]/pharmacy #207, 160, cm, 12/03/20 9:29:00 EST, Height, 54.7, kg, 07/28/19 7:47:00 EDT, Dry Weight Start Date: 12/05/20 Status: OrderedSingulair 10 mg oral tablet 10 mg, 1, tablet, By Mouth, Daily in PM, # 90 tablet, Refills 3, Tot. Refills 3, Maintenance, 05/15/21 10:17:00 EDT, Route to Pharmacy Electronically, [facility]/pharmacy #2070, 160, cm, 02/13/21 13:46:00 EDT, Height, 54.7, [...] 6 Refills, Maintenance, 04/14/21 10:42:00 EDT, Capsule, [facility]/pharmacy #207, Please put instructions in Kuwaiti, 160, cm,02/13/21 13:46:00 EDT, Height, 54.7, kg, [...] Active 1positive bronchial challenge 2-092x-ray 2013 stable, uyjgfiuyqt08343 x-ray, gjuk7arpxrc 5 yfzmx2Zclojv emphysema per pulmo note per -2011 mcdbjmkewkf5XTG negative 9-75-598krrn (lateral basal segment of the left lower lobe), per CT 01-18-2009 done at [facility]9internal and external per 2011 zgwunxakiiq01zoskdxi consult written ljlwe26evq CT from [facility], associated with ureteral stone. mild left omlvzppsrlgsnm63ymr CT from [facility] , ER was notified 13not starting meds due to polypharmacy and nuxvyfnibeeqj51Deuvmrwi by Pulm in [place], stability on repeat CT Chest Sep 2020 per their niif67Hdn 10mm nodule LUNG-RADS 4B 6on 2007 x-qum37ve 2009 [id number] DEXA: T-score lowest -3.719Rash developed 07/06/13 Social History Social History Type Response Smoking Status Former smoker; Other: per pt ; entered on: 04/21/18 Sex Male
--- OUTSIDE RECORDS SUMMARY | 2022-09-15 20:12 | XMS_ITS | Continuity of Care Document ---
:1945 Demographics Address [address] [place] [address] Mobile Preferred Language spa Marital Status Single Shinto Affiliation Latter-Day Race White Ethnic Group or Author Organization [facility] Address [address] [place] [address]- Care Team Providers Name Role Phone Cal PRADO, Luz Simeon Primary Care Physician [facility] Date[facility] 07[facility]13[facility]22 - 08/16/22 [facility] [address] [place] [address]- Attending Physician: Cal PRADO, Luz Simeon Admitting Physician: Cal PRADO, Luz Simeon Allergies, Adverse Reactions, Alerts Substance Reaction Severity Status doxycycline dizziness Active cephalexin rash Active gabapentin altered mental state Active Nicotine Patch1 Bronchospasm Active Nausea Dizzy traMADol Active varenicline C/O: itching Active Nausea Insomnia [...] Given 1Result Comment: [09/24/2017] [facility] [id number] Note: VIS 7-123Admin Note: VIS given 06/23/11, burkinan hhit9Kyayy Note: VIS GIVEN 07/08/10 wmyuuem0Yitspz Comment: [04/02/2016] VIS in Belarusian znpak6Staiu Note: sep 067Admin Note: vis given in Xsvxmux1Gfhoa Note: VIS given in Nlffwmi2Sogyn Note: VIS IN JVROFWM04Wisud Note: VIS in zfkpvhn11Uhvuf Note: VIS-JWMGM01Wjhoe Note: VIS-GIVEN Medications 3cc Leur-Stephanie syringe, 22 [...] 15:20:00 EDT, Aerosol, Route to Pharmacy Electronically, [id number], [facility]/pharmacy #207, 160, cm, 05/20/21 14:1... Start Date: 06/10/21 Status: Orderedalbuterol-ipratropium 3 mg-0.5 mg/3 ml inhalation solution 1 vials, Inhalation, 4 times a day, # 270 mL, 11 Refills, 07/28/22 9:44:00 EDT, [facility]/pharmacy #207, 23, 1 vials Inhalation 4 times a day, 160, cm, 06/11/22 14:31:00 EDT, Height Start Date: 07/28/22 Status: OrderedAlcohol Wipes See Instructions, # 100 each, Refills 5, Tot. Refills 5, Maintenance, use as directed prior to checking blood sugar 2 x daily Dx: E11.9, 07/28/22 12:53:00 EDT, Supply, 160, cm, 06/11/22 14:31:00 EDT, Height Start Date: 07/28/22 Status: Orderedbetamethasone topical valerate 0.1% ointment 1 application, Topically, 2 times a day, For severe eczema, # 45 Gm, 11 Refills, Maintenance, 10/29/21 9:52:00 EST, Ointment, [facility]/pharmacy #207, instead of Fluocinonide, 1 application Topically 2 times a day,Instr:For severe eczema, 160, cm, 10/29/21... Start Date: 10/29/21 Status: Orderedcalcium (as carbonate)-vitamin D 500 mg-400 intl units oral tablet 1 tablet, By Mouth, 2 times a day, # 60 tablet, 11 Refills, Maintenance, 12/10/20 11:55:00 EST, Tablet, [facility]/pharmacy #2071, Partial fill upon patient request if the prescription is for a schedule II opioid drug., 1 tablet By Mouth 2 times a day, 160,... Start Date: 12/10/20 Status: OrderedDaily Leslie oral tablet See Instructions, BAHMAN VICTORA TODOS LOS BENITEZ (NONFORMULARY), # 90 tablet, 1 Refills, Maintenance, 07/28/22 15:19:00 EDT, [facility], [facility], TOME NAZ TABLETA TODOS LOS BENITEZ (NONFORMULARY), 160, cm, 06/11/22 14:31:00 EDT, Height Start Date: 07/28/22 Status: OrderedDaliresp 500 mcg oral tablet 1 tablet = 500 mcg, By Mouth, Daily, for COPD, # 90 tablet, 3 Refills, Maintenance, 02/13/21 13:50:00 EDT, [facility], 160, cm, 02/13/21 12:53:00 EDT, Height, 54.7, kg, 07/28/19 7:47:00 EDT, Dry Weight Start Date: 02/13/21 Status: Orderedduloxetine 30 mg oral enteric coated capsule See Instructions, TOME NAZ CAPSULA POR VIA ORAL TODOS HUSSEIN BENITEZ DON'T CRUSH OR CHEW NEEDED FOR PAIN, # 90 capsule, 1 Refills, [facility], 160, cm, 06/11/22 14:31:00 EDT, Height Start Date: 07/06/22 Status: OrderedFreestyle Lite Lancets See Instructions, # [...] 3 Refills, Maintenance, 04/29/22 11:58:00 EDT, Tablet, [facility]/pharmacy #2071, dose change 09/10/20, 160, cm, 04/29/22 11:20:00 EDT, Height Start Date: 04/29/22 Status: OrderedmetFORMIN 500 mg oral tablet See Instructions, TOME NAZ TABLETA POR VIA ORAL TODOS LOS BENITEZ CON LAS COMIDAS, # 90 tablet, 1 Refills, Maintenance, 07/28/22 15:19:00 EDT, [facility], 160, cm, 06/11/22 14:31:00 EDT, Height Start Date: 07/28/22 Status: Orderedmirtazapine 7.5 mg oral tablet See Instructions, TOME NAZ TABLETA POR VIA ORAL AL ACOSTARSE, # 90 tablet, 3 Refills, [facility], 160, cm, 04/29/22 11:20:00 EDT, Height Start Date: 05/27/22 Status: Orderedmontelukast 10 mg oral tablet See Instructions, TOME NAZ TABLETA POR VIA ORAL CADA NOCHE, # 90 tablet, Refills 3, Maintenance, 08/05/22 11:49:00 EDT, Instructions Replace Required Details, Route to Pharmacy Electronically, [facility], 160, cm, 06/11/22 14:31:00 EDT, Height Start Date: 08/05/22 Status: Orderednabumetone 500 mg oral tablet See Instructions, TOME NAZ TABLETA POR VIA ORAL DOS VECES AL YAEL CUANDO SEA NECESARIO FOR KNEE PAIN,# 60 tablet, 1 Refills, Maintenance, 07/28/22 15:22:00 EDT, [facility], 160, cm, 06/11/22 14:31:00 EDT, Height Start Date: 07/28/22 Status: OrderedNebulizer Machine Nebulizer Machine, See Instructions, [...] Orderedomeprazole 20 mg oral enteric coated capsule See Instructions, BAHMAN ALARCONA TODOS LOS BENITEZ, # 90 capsule, 3 Refills, Maintenance, 07/30/22 16:26:00 EDT, [facility], 160, cm, 06/11/22 14:31:00 EDT, Height Start Date: 07/30/22 Status: OrderedpredniSONE 10 mg oral tablet See Instructions, 1.5 tablet By Mouth Daily, # 45 tablet, 2 Refills, Maintenance, 01/05/22 14:14:00 EST, [facility]/pharmacy #2071, Partial fill upon patient request if the prescription is for a schedule II opioid drug., 160, cm, 01/05/22 13:54:00 EST, Height Start Date: 01/05/22 Status: OrderedpredniSONE 10 mg oral tablet TOME NAZ TABLETA TODOS LOS D Start Date: 08/22/21 Status: OrderedTestosterone Cypionate 200 mg/mL intramuscular solution See Instructions, INJECT 0.5 (HALF) ML INTRAMUSCULARLY EVERY 14 DAYS, # 2 mL, 5 Refills, Maintenance, 05/18/22 9:43:00 EDT, [facility]/pharmacy #2071, 160, cm, 04/29/22 11:20:00 EDT, Height Start [...] TODOS LOS D , # 1 each, 5 Refills, Maintenance, 07/30/22 6:38:00 EDT, Powder, [facility]/pharmacy #2071, Partial fill upon patient request if the prescription is for a schedule II opioid drug., 1 p... Start Date: 07/30/22 Status: OrderedVitamin D3 5000 intl units oral capsule 1 capsule = 5,000 International_Units, By Mouth, Daily, with food, # 30 capsule, 6 Refills, Maintenance, 04/14/21 10:42:00 EDT, Capsule, [facility]/pharmacy #2071, Please put instructions in Belarusian, 160, cm,02/13/21 13:46:00 EDT, Height, 54.7, kg, [...] Active 1positive bronchial challenge 2-092x-ray 2013 stable, psfcjoxmjv34739 x-ray, kggm5kxqnng 5 szwon6Fwotet emphysema per pulmo note per pugqnnbqtkl8LUA negative 6-38-852zulh (lateral basal segment of the left lower lobe), per CT 01-18-2009 done at [facility]9internal and external per 2011 zvzxpmqprbz45ynkswpb consult written linhy96tph CT from [facility], associated with ureteral stone. mild left qqgyqrlsgdprgw85Nkdicn stone Oct 2021, seeing rrcxaze49ghg CT from [facility] , ER was notified 14not starting meds due to polypharmacy and zsonvqrwoeqwe80Elurlgsj by Pulm in [place], stability on repeat CT Chest Sep 2020 per their vmgb23Ivt 10mm nodule LUNG-RADS 4B 09/20/1917Followed by Melany Payne18on 2007 x-rwc99hz 2010 [id number] DEXA: T-score lowest -3.721Rash developed 07/06/13 Social History Social History Type Response Smoking Status Former smoker; Other: per pt ; entered on: 04/21/18 Sex Male Care Team PersonnelName: Cal PRADO, Luz Simeon Address: [address] [place] [address]
--- OUTSIDE RECORDS SUMMARY | 2022-09-15 20:12 | XMS_ITS | Continuity of Care Document ---
:1945 Demographics Address [address] [place] [address] Mobile Preferred Language es Marital Status Single Adventism Affiliation Hindu Race Unknown Ethnic Group or Author Organization [facility] Address [address] [place] [phone]- Care Team Providers Name Role Phone Cal PRADO, Luz Simeon Primary Care Physician Encounter [facility] Date(s): 05/20/21 - 07/30/21 [facility] [address] [place] [phone]- Attending Physician: Natividad Michel MD Admitting Physician: Natividad Michel MD Referring Physician: Cal PRADO, Luz Simeon Allergies, Adverse [...] toxoids (Td) 04/21/18 Given pneumococcal 13-valent vaccine5 5/5/16 Given Zoster Vaccine Live 09/19/13 Given influ virus vac, H1N1, inactive(oldterm)6 10/14/09 Given FluLaval (oldterm)7 08/21/09 Given Influenza Vaccine (oldterm)8 01/01/09 Given Tet/Diphth/Acel, Pertussis (oldterm)9 04/24/08 Given Influenza Virus Vaccine (oldterm)10 09/15/07 Given Influenza Virus Vaccine (oldterm)11 10/08/06 Given Pneumococcal Vaccine (oldterm)12 10/08/06 Given 1Result Comment: [09/24/2017] [facility] [id number] Note: VIS 7-123Admin Note: VIS given 06/23/11, taiwanese szkr2Qrohf Note: VIS GIVEN 07/08/10 tokdgte8Uxgcke Comment: [04/02/2016] VIS in French lcvzn1Wnxma Note: augdmin Note: vis given in Iicimbv1Wbsfd Note: VIS given in Vnzkjoa9Tyzwz Note: VIS IN ICXAQTT66Jkisq Note: VIS in wkwrals51Pqdjw Note: VIS-JLDBD55Dcsri Note: VIS-GIVEN Medications albuterol CFC free 90 mcg/inh inhalation aerosol 1, puffs, Inhalation, 4 times a day, PRN, dx: J45.909, # 1 each, Refills 5, Tot. Refills 5, Maintenance, 06/10/21 15:20:00 EDT, Aerosol, Route to Pharmacy Electronically, [id number], [facility]/pharmacy #[id number], 160, cm, 05/20/21 14:1... Start Date: [...] 2 Refills, Maintenance, 07/04/21 9:57:00 EDT, Ointment, [facility]/pharmacy #[id number], instead of Fluocinonide, 1 application Topically [...] 1 Refills,Maintenance, 07/04/21 9:48:00 EDT, CR Capsule, [facility]/pharmacy #[id number], Partial fill upon patient requestif the [...] 3 Refills, Maintenance, 09/10/20 8:40:00 EDT, Tablet, [facility]/pharmacy #[id number], dose change 09/10/20, 165.1, cm, 01/02/20 14:39:00 EST, Height, 54.7, kg, 07/28/19 7:47:00 EDT, Dry Weight Start Date: 09/10/20 Status: OrderedmetFORMIN 500 mg oral tablet 1 tablet = 500 mg, By Mouth, Daily, with meals, # 90 tablet, 3 Refills, Maintenance, 05/15/21 10:18:00 EDT, Tablet, [facility]/pharmacy #[id number], 160, cm, 02/13/21 13:46:00 EDT, Height, 54.7, kg, 07/28/19 7:47:00 EDT, Dry Weight Start Date: 05/15/21 Status: Orderedmirtazapine 7.5 mg oral tablet 1 tablet = 7.5 mg, By Mouth, Daily at bedtime, for appetite, # 90 tablet, 3 Refills, Maintenance, 05/15/21 10:16:00 EDT, [facility]/pharmacy #[id number], instructions in French, 160, cm, 02/13/21 13:46:00 EDT, Height, 54.7, [...] 9:45:00 EDT, Tablet, [id number], instructions in taiwanese, 160, cm, 07/04/21 9:33:00 EDT,Height, 54.7, kg, [...] 3 Refills, Soft Stop, 08/18/20 13:37:00 EDT, [facility]/pharmacy #207, 165.1, cm, 01/02/20 14:39:00 EST, Height, 54.7, kg, 07/28/19 7:47:00 EDT, Dry Weight Start Date: 08/18/20 Status: OrderedpredniSONE 10 mg oral tablet 1 tablet = 10 mg, By Mouth, Daily, # 90 tablet, 3 Refills, Maintenance, 12/05/20 10:03:00 EST, [facility]/pharmacy #[id number], 160, cm, 12/03/20 9:29:00 EST, Height, 54.7, kg, 07/28/19 7:47:00 EDT, Dry Weight Start Date: 12/05/20 Status: OrderedSingulair 10 mg oral tablet 10 mg, 1, tablet, By Mouth, Daily in PM, # 90 tablet, Refills 3, Tot. Refills 3, Maintenance, 05/15/21 10:17:00 EDT, Route to Pharmacy Electronically, [facility]/pharmacy #207, 160, cm, 02/13/21 13:46:00 EDT, Height, [...] 6 Refills, Maintenance, 04/14/21 10:42:00 EDT, Capsule, [facility]/pharmacy #[id number], Please put instructions in French, 160, cm,02/13/21 13:46:00 EDT, Height, 54.7, kg, [...] Active 1positive bronchial challenge 2-092x-ray 2013 stable, [id number] x-ray, hjnv9sensqx 5 ixbyq8Emmfhn emphysema per pulmo note per -2011 uhwmnghkfcc2OEC negative 7-39-712kqmx (lateral basal segment of the left lower lobe), per CT 01-18-2009 done at [facility]9internal and external per 2011 ddyadqbxvmb36nqcwooj consult written ugtme46tar CT from [facility], associated with ureteral stone. mild left kgevvkjbefqknw54vsa CT from [facility] , ER was notified 13not starting meds due to polypharmacy and xswuozhgiceii28Lgonsdre by Pulm in [place], stability on repeat CT Chest Sep 2020 per their sblg70Hmg 10mm nodule LUNG-RADS 4B 6on 2007 x-maa15nc 2009 [id number] DEXA: T-score lowest -3.719Rash developed 07/06/13 Social History Social History Type Response Smoking Status Former smoker; Other: per pt ; entered on: 04/21/18 Sex Male
--- OUTSIDE RECORDS SUMMARY | 2022-09-15 20:12 | XMS_ITS | Continuity of Care Document ---
:1945 Demographics Address [address] [place] [address] Mobile Preferred Language spa Marital Status Single Presybeterian Affiliation Hinduism Race Unknown Ethnic Group or Author Organization [facility] Address [address] [place] [phone]- Care Team Providers Name Role Phone Cal PRADO, Luz Simeon Primary Care Physician Encounter [facility] Date(s): 01/16/22 - 02/15/22 [facility] [address] [place] [address]- [place] Allergies, Adverse Reactions, Alerts Substance Reaction Severity [...] 1Result Comment: [09/24/2017] [facility] [id number] Note: VIS 7-123Admin Note: VIS given 06/23/11, lao gswl1Jxfzo Note: VIS GIVEN 07/08/10 zazohrc9Pyaotf Comment: [04/02/2016] VIS in Equatorial Guinean qczgt4Jxtyw Note: sep 067Admin Note: vis given in Eqvwqgc9Izdnt Note: VIS given in Iaqkfdd9Sekfs Note: VIS IN BFFVYQQ33Xxufk Note: VIS in dichuyt31Gkgie Note: VIS-ODJEV00Ofypt Note: VIS-GIVEN Medications 3cc Leur-Stephanie syringe, 22 [...] 15:20:00 EDT, Aerosol, Route to Pharmacy Electronically, [id number], [id number], 160, cm, 05/20/21 14:1... Start [...] 5 Refills,Maintenance, 01/05/22 15:24:00 EST, CR Capsule, [facility]/pharmacy #[id number], Partial fill upon patient request [...] 1 Refills, Maintenance, 09/26/21 8:55:00 EDT, Tablet, [facility]/pharmacy #207, dose change 09/10/20, 160, cm, 08/22/21 11:06:00 EDT, Height Start Date: 09/26/21 Status: OrderedmetFORMIN 500 mg oral tablet 1 tablet = 500 mg, By Mouth, Daily, with meals, # 90 tablet, 3 Refills, Maintenance, 05/15/21 10:18:00 EDT, Tablet, [facility]/pharmacy #207, 160, cm, 02/13/21 13:46:00 EDT, Height, 54.7, kg, 07/28/19 7:47:00 EDT, Dry Weight Start Date: 05/15/21 Status: Orderedmirtazapine 7.5 mg oral tablet 1 tablet = 7.5 mg, By Mouth, Daily at bedtime, for appetite, # 90 tablet, 3 Refills, Maintenance, 05/15/21 10:16:00 EDT, [id number], instructions in Equ[place] Guinean, 160, cm, 02/13/21 13:46:00 EDT, Height, 54.7, [...] 2 Refills, Maintenance, 01/01/22 12:39:00 EST, Tablet, [facility], instructions in lao, 160, cm, 01/01/22 10:25:00 EST, Height Start [...] 11 Refills, Maintenance, 11/01/20 11:26:00 EST, Patch, [facility]/pharmacy #2070, 165.1, cm, 09/26/20 9:02:00 EDT, [...] Refills, Soft Stop, 08/22/21 11:44:00 EDT, [id number], 160, cm, 08/22/21 11:06:00 EDT, Height Start Date: 08/22/21 Status: OrderedPEG-3350 with Electrolytes (Eqv-GoLYTELY) oral powder for reconstitution See Instructions, Take the day before your colnoscopy as directed by provider, # 1 each, 0 Refills, Maintenance, 02/02/22 14:55:00 EST, [facility] Partial fill upon patient request if the prescription is for a schedule II opioid drug.... Start Date: 02/02/22 Status: OrderedpredniSONE 10 mg oral tablet See Instructions, 1.5 tablet By Mouth Daily, # 45 tablet, 2 Refills, Maintenance, 01/05/22 14:14:00 EST, [facility]/pharmacy #207, Partial fill upon patient request if the prescription is for a schedule II opioid drug., 160, cm, 01/05/22 13:54:00 EST, Height Start Date: 01/05/22 Status: OrderedpredniSONE 10 mg oral tablet BAHMAN ROWELL LOS Regla Start Date: 08/22/21 Status: OrderedReadi-Cat 2 oral suspension See Instructions, For use with CT scan, # 2 each, 0 Refills, Maintenance, 02/04/22 14:06:00 EST, [facility], Partial fill upon patient request if the prescription is for a schedule II opioid drug., For use with CT scan, 160, cm, ... Start Date: 02/04/22 Status: OrderedSingulair 10 mg oral tablet 10 mg, 1, tablet, By Mouth, Daily in PM, # 90 tablet, Refills 3, Tot. Refills 3, Maintenance, 05/15/21 10:17:00 EDT, Route to Pharmacy Electronically, [facility]/pharmacy #[id number], 160, cm, 02/13/21 13:46:00 EDT, Height, 54.7, kg, 07/28/19 7:47:00 EDT, Dry Weight Start Date: 05/15/21 Status: OrderedTestosterone Cypionate 200 mg/mL intramuscular solution = 100 mg, Intramuscular, Every 14 days, # 2 mL, 4 Refills, Maintenance, 11/06/21 17:01:00 EST, [facility]/pharmacy #[id number], 160, cm, 11/04/21 9:21:00 EST, [...] 11 Refills, Maintenance, 08/22/21 11:46:00 EDT, Powder, [facility]/pharmacy #[id number], Partial fill upon patient request if theprescription is for a schedule II opioid drug., 1... Start Date: 08/22/21 Status: OrderedVitamin D3 5000 intl units oral capsule 1 capsule = 5,000 International_Units, By Mouth, Daily, with food, # 30 capsule, 6 Refills, Maintenance, 04/14/21 10:42:00 EDT, Capsule, [id number], Please put instructions in Equ[place] Guinean, 160, cm,02/13/21 13:46:00 EDT, Height, 54.7, kg, [...] Active 1positive bronchial challenge 2-092x-ray 2013 stable, qsfdyqgxac49214 x-ray, zcmc9aoexyy 5 vdrvf0Psypoq emphysema per pulmo note per -2011 bnhzwqlgibk5RZV negative 0-21-748wwpb (lateral basal segment of the left lower lobe), per CT 01-18-2009 done at [facility]9internal and external per 2011 yuhhhsncfav31gmbpvui consult written anipf05wuz CT from [facility], associated with ureteral stone. mild left vpenkotseicpqi24Svbzhc stone Oct 2021, seeing askyjhj78mas CT from [facility] , ER was notified 14not starting meds due to polypharmacy and epnzkifgqqrcz14Cvykfdlw by Pulm in [place], stability on repeat CT Chest Sep 2020 per their fwif27Tvg 10mm nodule LUNG-RADS 4B 7on 2007 x-eyc23xs 2009 [id number] DEXA: T-score lowest -3.720Rash developed 07/06/13 Social History Social History Type Response Smoking Status Former smoker; Other: per pt ; entered on: 04/21/18 Sex Male
--- OUTSIDE RECORDS SUMMARY | 2022-09-15 20:12 | XMS_ITS | Continuity of Care Document ---
:1945 Demographics Address [address] [place] [address] Mobile Preferred Language es Marital Status Single Mandaeism Affiliation Quaker Race White Ethnic Group or Author Organization [facility] Address [address] [place] [phone]- Care Team Providers Name Role Phone Cal HEAD PORTER, Luz Simeon Primary Care Physician Encounter [facility] Date(s): 03/21/20 - 03/28/20 [facility] [address] [place] [phone]- [place] Encounter Diagnosis COPD - Chronic obstructive pulmonary disease (Discharge Diagnosis) - 03/21/[address] nodules [address] (Discharge Diagnosis) - 03/21/20 Attending Physician: Philip Norris MD Allergies, Adverse Reactions, Alerts Substance Reaction [...] Comment: [09/24/2017] [facility] [id number] Note: VIS 7-123Admin Note: VIS given 06/23/11, british fkfu1Zuezj Note: VIS GIVEN 07/08/10 etatlxh9Wnluku Comment: [04/02/2016] VIS in Indian jjicl4Rggsg Note: sep 067Admin Note: vis given in Dpnbovr7Hbsor Note: VIS given in Noeipxp6Tmubg Note: VIS IN BVXXVYA82Kqokd Note: VIS in wlzjmyr03Dgfkg Note: VIS-USJFF22Jgwzr Note: VIS-GIVEN Medications Accu-Chek Compact 17-Strip Drum [...] for pain, not to exceed 3000 mg/day Indian instructions please, # 120 capsule, 0 Refills, Maintenance, 01/02/20 14:40:00 EST, Capsule, [id number], 165.1, cm, 12/22/19 10:10:00 EST, Height, 5... Start Date: 01/02/20 Status: Orderedalbuterol 2.5mg / 3mL (0.083%) (OP) 3 mL = 2.5 mg, Neb, Every 6 hours, 0 Refills, Maintenance Start Date: 10/17/19 Status: Orderedalbuterol-ipratropium 3 mg-0.5 mg/3 ml inhalation solution 3 mL, Inhalation, 4 times a day, dx asthma J45, # 100 each, 11 Refills, Maintenance, 03/20/20 14:19:00 EDT, Solution, [facility]/pharmacy #[id number], 3 mL Inhalation 4 times a day,Instr:dx asthma J45, 165.1, cm, 01/02/20 14:39:00 EST, Height, 54.7, kg, 07/28/19 7... Start Date: 03/20/20 Status: Orderedatorvastatin 40 mg oral tablet TOME [...] Maintenance, 01/03/19 8:46:30 EST, Cream, instructions in Nicaraguan please, 1 application Topically 2 times a [...] 5 Refills, Maintenance, 12/22/19 10:21:00 EST, Cream, [facility]/pharmacy #[id number], 1 application Topically 2 times a day, 165.1, cm, 12/22/19 10:10:00 EST, Height, 54.7, kg, 07/28/19 7:47:00 EDT, Dry Weight Start Date: 12/22/19 Status: Orderedfluticasone-salmeterol 232 mcg-14 mcg/inh inhalation powder 1 inhalation, Inhalation, 2 times a day, rinse mouth and throat after use, # 1 each, 11 Refills, Maintenance, 03/21/20 8:53:00 EDT, Powder, [facility]/pharmacy #[id number], 1 inhalation Inhalation 2 times a [...] 11 Refills, Maintenance, 03/21/20 8:36:00 EDT, Tablet, [facility]/pharmacy #207, 165.1, cm, 01/02/20 14:39:00 EST, Height, 54.7, kg, 07/28/19 7:47:00 EDT, Dry Weight Start Date: 03/21/20 Status: Orderedmirtazapine 7.5 mg oral tablet 1 tablet = 7.5 mg, By Mouth, Daily at bedtime, for appetite, # 30 tablet, 11 Refills, Maintenance, 12/22/19 10:17:00 EST, [facility]/pharmacy #2071, instructions in Indian, 165.1, cm, 12/22/19 10:10:00 EST, Height, 54.7, kg, 07/28/19 7:47:00 EDT, Dry Weight Start Date: 12/22/19 Status: Orderedmultivitamin Multiple Vitamins oral capsule 1 capsule, By Mouth, Daily, # 90 capsule, 3 Refills, Maintenance, 12/22/19 10:33:00 EST, Capsule, [facility]/pharmacy #2071, 1 capsule By Mouth Daily, 165.1, cm, 12/22/19 10:10:00 EST, Height, 54.7, kg, 07/28/19 7:47:00 EDT, Dry Weight Start Date: 12/22/19 Status: Orderednabumetone 500 mg oral tablet 1 tablet = 500 mg, By Mouth, 2 times a day, for knee pain, # 60 tablet, 3 Refills, Maintenance, 08/02/19 11:35:19 EDT, Tablet, instructions in british Start Date: 08/02/19 Status: OrderedNebulizer/Compressor See Instructions, # 1 each, Maintenance, D: COPD severe, Gold Ct 4 For use PRN Q4hr for shortness ofbreath, 12/22/19 10:19:00 EST, Compound Start Date: 12/22/19 Status: Orderedomeprazole 20 mg oral enteric coated capsule 1 capsule = 20 mg, By Mouth, Daily, # 90 capsule, 3 Refills, Soft Stop, 12/22/19 10:33:00 EST, [facility]/pharmacy #2071, 165.1, cm, 12/22/19 10:10:00 EST, Height, 54.7, kg, 07/28/19 7:47:00 EDT, Dry Weight Start Date: 12/22/19 Status: OrderedpredniSONE 10 mg oral tablet 1 tablet = 10 mg, By Mouth, Daily, # 90 tablet, 3 Refills, Maintenance, 03/16/20 9:39:00 EDT, [facility]/pharmacy #2071, 165.1, cm, 01/02/20 14:39:00 [...] 12/22/19 10:33:00 EST, Route to Pharmacy Electronically, [facility]/pharmacy #[id number], 165.1, cm, 12/22/19 10:10:00 [...] Active 1positive bronchial challenge 2-092x-ray 2013 stable, fhaonbmnyx12781 x-ray, rmgv9wwpvdx 5 jihux8Naetnh emphysema per pulmo note 05/18/per -2011 fpeoguqsgdd6KUU negative 8-93-423nvkw (lateral basal segment of the left lower lobe), per CT 01-18-2009 done at [facility]9internal and external per 2011 ykiwhjeqpcw24chjoqfr consult written ntejs89olu CT from [facility], associated with ureteral stone. mild left ltwyvwygwfxqwg99pwh CT from [facility] , ER was notified 13not starting meds due to polypharmacy and aflidipicqlhz80Kch 10mm nodule LUNG-RADS 4B 5on 2007 x-qgc80az 2009 [id number] DEXA: T-score lowest -3.718Rash developed 07/06/13 Diagnosis Diagnosis Type Effective Dates Health Clinical Infor mant Status Service COPD - Chronic Discharge 03/21/20 obstructive Diagnosis pulmonary disease Multiple lung Discharge 03/21/[address] Diagnosis Social History Social History Type Response Smoking Status Former smoker; Other: per pt ; entered on: 04/21/18 Sex Male
--- OUTSIDE RECORDS SUMMARY | 2022-09-15 20:12 | XMS_ITS | Continuity of Care Document ---
:1945 Demographics Address [address] [place] [address] Mobile Preferred Language spa Marital Status Single Yazidi Affiliation Gnosticist Race White Ethnic Group or Author Organization [facility] Address [address] [place] [phone]- Care Team Providers Name Role Phone Cal PRADO, Luz Simeon Primary Care Physician [facility] Date[facility]s): 03/04/22 - 04/03/22 [facility] [address] [place] [id number] Allergies, Adverse Reactions, Alerts Substance Reaction Severity Status doxycycline dizziness Active cephalexin rash Active Proventil HFA Nausea Active Nicotine Patch1 Bronchospasm Active Nausea Dizzy traMADol Active varenicline C/O: itching Active Nausea Insomnia gabapentin altered mental state Active 1see general med office note 4-3-09; [...] (oldterm)12 10/08/06 Given 1Result Comment: [09/24/2017] [facility] [id number] Note: VIS 7-123Admin Note: VIS given 06/23/11, jamaican zmlr6Euzpe Note: VIS GIVEN 07/08/10 laybfnz3Yylqez Comment: [04/02/2016] VIS in Frisian nelvr0Lbcch Note: augdmin Note: vis given in Flbgyxo8Hyuds Note: VIS given in Gqfqvbq0Gjdzn Note: VIS IN VXEXRAR75Agbvl Note: VIS in cstnizj44Pocje Note: VIS-GCFCH69Uzcqa Note: VIS-GIVEN Medications 3cc Leur-Stephanie syringe, 22 [...] 15:20:00 EDT, Aerosol, Route to Pharmacy Electronically, [id number], [id number], 160, cm, 05/20/21 14:1... Start [...] 5 Refills,Maintenance, 01/05/22 15:24:00 EST, CR Capsule, [facility]/pharmacy #[id number], Partial fill upon patient request [...] 1 Refills, Maintenance, 09/26/21 8:55:00 EDT, Tablet, [facility]/pharmacy #207, dose change 09/10/20, 160, cm, 08/22/21 11:06:00 EDT, Height Start Date: 09/26/21 Status: OrderedmetFORMIN 500 mg oral tablet 1 tablet = 500 mg, By Mouth, Daily, with meals, # 90 tablet, 3 Refills, Maintenance, 05/15/21 10:18:00 EDT, Tablet, [facility]/pharmacy #207, 160, cm, 02/13/21 13:46:00 EDT, Height, 54.7, kg, 07/28/19 7:47:00 EDT, Dry Weight Start Date: 05/15/21 Status: Orderedmirtazapine 7.5 mg oral tablet 1 tablet = 7.5 mg, By Mouth, Daily at bedtime, for appetite, # 90 tablet, 3 Refills, Maintenance, 05/15/21 10:16:00 EDT, [id number], instructions in Frisian, 160, cm, 02/13/21 13:46:00 EDT, Height, 54.7, [...] 2 Refills, Maintenance, 01/01/22 12:39:00 EST, Tablet, [facility], instructions in jamaican, 160, cm, 01/01/22 10:25:00 EST, Height Start [...] 11 Refills, Maintenance, 11/01/20 11:26:00 EST, Patch, [facility]/pharmacy #207, 165.1, cm, 09/26/20 9:02:00 EDT, [...] 3 Refills, Soft Stop, 08/22/21 11:44:00 EDT, [facility]/pharmacy #2071, 160, cm, 08/22/21 11:06:00 EDT, Height Start Date: 08/22/21 Status: OrderedPEG-3350 with Electrolytes (Eqv-GoLYTELY) oral powder for reconstitution See Instructions, Take the day before your colnoscopy as directed by provider, # 1 each, 0 Refills, Maintenance, 02/02/22 14:55:00 EST, [facility], Partial fill upon patient request if the prescription is for a schedule II opioid drug.... Start Date: 02/02/22 Status: OrderedpredniSONE 10 mg oral tablet See Instructions, 1.5 tablet By Mouth Daily, # 45 tablet, 2 Refills, Maintenance, 01/05/22 14:14:00 EST, [facility]/pharmacy #[id number], Partial fill upon patient request if the prescription is for a schedule II opioid drug., 160, cm, 01/05/22 13:54:00 EST, Height Start Date: 01/05/22 Status: OrderedpredniSONE 10 mg oral tablet TOME NAZ TABLETA TODOS LOS D Start Date: 08/22/21 Status: OrderedReadi-Cat 2 oral suspension See Instructions, For use with CT scan, # 2 each, 0 Refills, Maintenance, 02/04/22 14:06:00 EST, [facility], Partial fill upon patient request if the prescription is for a schedule II opioid drug., For use with CT scan, 160, cm, ... Start Date: 02/04/22 Status: OrderedSingulair 10 mg oral tablet 10 mg, 1, tablet, By Mouth, Daily in PM, # 90 tablet, Refills 3, Tot. Refills 3, Maintenance, 05/15/21 10:17:00 EDT, Route to Pharmacy Electronically, [facility]/pharmacy #[id number], 160, cm, 02/13/21 13:46:00 EDT, Height, 54.7, kg, 07/28/19 7:47:00 EDT, Dry Weight Start Date: 05/15/21 Status: OrderedTestosterone Cypionate 200 mg/mL intramuscular solution = 100 mg, Intramuscular, Every 14 days, # 2 mL, 4 Refills, Maintenance, 11/06/21 17:01:00 EST, [facility]/pharmacy #[id number], 160, cm, 11/04/21 9:21:00 EST, [...] 11 Refills, Maintenance, 08/22/21 11:46:00 EDT, Powder, [facility]/pharmacy #[id number], Partial fill upon patient request if theprescription is for a schedule II opioid drug., 1... Start Date: 08/22/21 Status: OrderedVitamin D3 5000 intl units oral capsule 1 capsule = 5,000 International_Units, By Mouth, Daily, with food, # 30 capsule, 6 Refills, Maintenance, 04/14/21 10:42:00 EDT, Capsule, [id number], Please put instructions in Frisian, 160, cm,02/13/21 13:46:00 EDT, Height, 54.7, kg, [...] Active 1positive bronchial challenge 2-092x-ray 2013 stable, pyqevzhfdc16166 x-ray, axki9yxjgof 5 xttky5Deivdw emphysema per pulmo note per xqunqnbdzom8HPB negative 9-16-084pgix (lateral basal segment of the left lower lobe), per CT 01-18-2009 done at [facility]9internal and external per 2011 ctbrgsfgrro47lzmgbbg consult written rietn19qrj CT from [facility], associated with ureteral stone. mild left rieqebdnlywrwl76Uicety stone Oct 2021, seeing gdxejsl56nzk CT from [facility] , ER was notified 14not starting meds due to polypharmacy and nhwfouxxoegrb29Msjinzlt by [facility]abh in [place], stability on repeat CT Chest Sep 2020 per their jaxu45Dae 10mm nodule LUNG-RADS 4B 7on 2007 x-mrm86xw 2009 [id number] DEXA: T-score lowest -3.720Rash developed 07/06/13 Social History Social History Type Response Smoking Status Former smoker; Other: per pt ; entered on: 04/21/18 Sex Male
--- OUTSIDE RECORDS SUMMARY | 2022-09-15 20:12 | XMS_ITS | Continuity of Care Document ---
:1945 Demographics Address [address] [place] [address] Mobile Preferred Language spa Marital Status Single Buddhist Affiliation Zoroastrian Race White Ethnic Group or Author Organization [facility] Address [address] [place] [address]- Care Team Providers Name Role Phone Cal PRADO, Luz Simeon Primary Care Physician [facility]): [facility] - 08/27/22 [facility] [address] [place] [id number] Allergies, Adverse Reactions, Alerts Substance [...] 1Result Comment: [09/24/2017] [facility] [id number] Note: VIS 7-123Admin Note: VIS given 06/23/11, maori goqx9Gsuam Note: VIS GIVEN 07/08/10 rlvwwfg7Hohvcl Comment: [04/02/2016] VIS in Senegalese vqsnk5Wtpzn Note: augdmin Note: vis given in Rhkdala3Oxajh Note: VIS given in Ycclyva0Duxsa Note: VIS IN JUEAARU99Mrjdj Note: VIS in vmewjix57Rpszu Note: VIS-FJHKV72Atfnq Note: VIS-GIVEN Medications albuterol-ipratropium 3 mg-0.5 mg/3 ml inhalation solution 1 vials, Inhalation, 4 times a day, # 270 mL, 11 Refills, 08/27/22 15:09:00 EDT, [facility]/pharmacy #[id number],23, 1 vials Inhalation 4 times a day, 160, cm, 08/27/22 14:20:00 EDT, Height Start Date: 08/27/22 Status: OrderedAlcohol Wipes See Instructions, # 100 each, Refills 5, Tot. Refills 5, Maintenance, use as directed prior to checking blood sugar 2 x daily Dx: E11.9, 07/28/22 12:53:00 EDT, Supply, 160, cm, 06/11/22 14:31:00 EDT, Height Start Date: 07/28/22 Status: OrderedDaily Leslie oral tablet See Instructions, TOME NAZ TABLETA TODOS LOS BENITEZ (NONFORMULARY), # 90 tablet, 1 Refills, Maintenance, 07/28/22 15:19:00 EDT, [facility], 90, TOME NAZ TABLETA TODOS LOS BENITEZ (NONFORMULARY), 160, cm, 06/11/22 14:31:00 EDT, Height Start Date: 07/28/22 Status: Orderedduloxetine 30 mg oral enteric coated capsule See Instructions, TOME NAZ CAPSULA POR VIA ORAL TODOS LOS BENITEZ DON'T CRUSH OR CHEW NEEDED FOR PAIN, # 90 capsule, 1 Refills, [facility], 160, cm, 06/11/22 14:31:00 EDT, Height Start Date: 07/06/22 Status: OrderedFREESTYLE LITE TEST STRIP FREESTYLE LITE TEST STRIP, See Instructions, # 100 Unknown, 10 Refills, USE TO CHECK BLOOD GLUCOSE 2TIMES A DAY, 160, cm, 04/29/22 11:20:00 EDT, Height Start Date: 05/27/22 Status: Orderedlevothyroxine 0.112 mg oral tablet 1 tablet = 112 mcg, By Mouth, Daily, # 90 tablet, 3 Refills, Maintenance, 04/29/22 11:58:00 EDT, Tablet, [facility]/pharmacy #[id number], dose change 09/10/20, 160, cm, 04/29/22 11:20:00 EDT, Height Start Date: 04/29/22 Status: OrderedmetFORMIN 500 mg oral tablet See Instructions, TOME NAZ TABLETA POR VIA ORAL TODOS LOS BENITEZ CON LAS COMIDAS, # 90 tablet, 1 Refills, Maintenance, 07/28/22 15:19:00 EDT, [facility], 160, cm, 06/11/22 14:31:00 EDT, Height Start Date: 07/28/22 Status: Orderedmirtazapine 7.5 mg oral tablet See Instructions, TOME NAZ TABLETA POR VIA ORAL AL ACOSTARSE, # 90 tablet, 3 Refills, [facility], 160, cm, 04/29/22 11:20:00 EDT, Height Start Date: 05/27/22 Status: Orderedmontelukast 10 mg oral tablet See Instructions, TOME NAZ TABLETA POR VIA ORAL CADA NOCHE, # 90 tablet, Refills 3, Maintenance, 08/05/22 11:49:00 EDT, Instructions Replace Required Details, Route to Pharmacy Electronically, [facility], 160, cm, 06/11/22 14:31:00 EDT, Height Start Date: 08/05/22 Status: Orderednabumetone 500 mg oral tablet See Instructions, TOME NAZ TABLETA POR VIA ORAL DOS VECES AL YAEL CUANDO SEA NECESARIO FOR KNEE PAIN,# 60 tablet, 1 Refills, Maintenance, 07/28/22 15:22:00 EDT, [facility], 160, cm, 06/11/22 14:31:00 EDT, Height Start Date: 07/28/22 Status: OrderedNutritional Supplements See Instructions, # 90 each, Refills 5, Tot. Refills 5, Maintenance, Dispense:: Vanilla Ensure supplemental shakes Dx: Lung CA, weight loss, 05/08/22 13:00:00 EDT, Supply Start Date: 05/08/22 Status: Orderedomeprazole 20 mg oral enteric coated capsule See Instructions, TOME NAZ CAPSULA TOS HUSSEIN BENITEZ, # 90 capsule, 3 Refills, Maintenance, 07/30/22 16:26:00 EDT, [facility], 160, cm, 06/11/22 14:31:00 EDT, Height Start Date: 07/30/22 Status: OrderedpredniSONE 10 mg oral tablet See Instructions, 1.5 tablet By Mouth Daily, # 45 tablet, 2 Refills, Maintenance, 01/05/22 14:14:00 EST, [facility]/pharmacy #[id number], Partial fill upon patient request if the prescription is for a schedule II opioid drug., 160, cm, 01/05/22 13:54:00 EST, Height Start Date: 01/05/22 Status: OrderedpredniSONE 10 mg oral tablet TOME NAZ TABLETA TOS LOS D Start Date: 08/22/21 Status: OrderedRight knee hinged knee brace Right knee hinged knee brace, See Instructions, # 1 each, Refills 0, Tot. Refills 0, Maintenance, Dx: OA knees, 08/27/22 15:07:00 EDT, Supply Start Date: 08/27/22 Status: OrderedTestosterone Cypionate 200 mg/mL intramuscular solution See Instructions, INJECT 0.5 (HALF) ML INTRAMUSCULARLY EVERY 14 DAYS, # 2 mL, 5 Refills, Maintenance, 05/18/22 9:43:00 EDT, [facility], 160, cm, 04/29/22 11:20:00 EDT, Height [...] 5 Refills, Maintenance, 07/30/22 6:38:00 EDT, Powder, [facility], Partial fill upon patient request if the prescription is for a schedule II opioid drug., 1 p... 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 Heartburn Confirmed Active Hemorrhoid9 Confirmed 2011 Active Zhclsyhcyssrje71, 11 Confirmed 01/18/09 Active Hyperlipidemia Confirmed 04/2010 Active Hypothyroidism Confirmed Active Insomnia Confirmed Active Kidney stone12, 13 Confirmed 01/18/09 Active DJD (degenerative Confirmed Active joint disease), lumbar Lung nodule Confirmed Active Hypogonadism male Confirmed Active Lung cancer Confirmed Active Sfcgcckblvlvrzcj08 Confirmed 01/03/19 Active Multiple lung nodules Confirmed 09/13/[address]15, 16 Non-small cell lung Confirmed 06/07/22 Active Osteoarthritis of Confirmed 06/2008 Active ankle18 Osteoarthritis of Confirmed 12/2009 Active knee19 Bslfxmmfjfjy17 Confirmed 2011 Active 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 mild left ecuvdeenbxthdr77Pcawwp stone Oct 2021, seeing nkjgkwu53wfg CT from [facility] , ER was notified 14not starting meds due to polypharmacy and tvwhqopblyqep86Jmdhiuxj by Pulm in [place], stability on repeat CT Chest Sep 2020 per their cory25Gkv 10mm nodule LUNG-RADS 4B 09/20/1917Followed by [facility] and Thanh Cowenfpkz30vf 2007 x-czm85sh 2009 [id number] DEXA: T-score lowest -3.721Rash developed 07/06/13 Social History Social History Type Response Smoking Status Former smoker; Other: per pt ; entered on: 04/21/18 Sex Male Patient Care team information PersonnelName: Luz Mccall NP Address: Address: [address] [place] [address]
--- OUTSIDE RECORDS SUMMARY | 2022-09-15 20:12 | XMS_ITS | Continuity of Care Document ---
:1945 Demographics Address [address] [place] [address] Mobile Preferred Language es Marital Status Single Scientologist Affiliation Christian Race Unknown Ethnic Group or Author Organization [facility] Address [address] [place] [address]- Care Team Providers Name Role Phone Cal PRADO, Luz Simeon Primary Care Physician [facility] - 09/21/21 [facility] [address] [place] [phone]- Attending Physician: Not on Staff, Attending MD [...] 10/08/06 Given 1Result Comment: [09/24/2017] [facility] [id number] Note: VIS 7-123Admin Note: VIS given 06/23/11, japanese trnk8Ktomb Note: VIS GIVEN 07/08/10 hwvivsl1Qhggdy Comment: [04/02/2016] VIS in Tanzanian ajtze5Wzccl Note: augdmin Note: vis given in Oxwucvr3Zcqvj Note: VIS given in Pyxxcmo1Obmbh Note: VIS IN AMHCJAM29Qpfzk Note: VIS in mqywcqq17Cldpj Note: VIS-ODTCY45Msfrx Note: VIS-GIVEN Medications albuterol CFC free 90 mcg/inh inhalation aerosol 1, puffs, Inhalation, 4 times a day, PRN, dx: J45.909, # 1 each, Refills 5, Tot. Refills 5, Maintenance, 06/10/21 15:20:00 EDT, Aerosol, Route to Pharmacy Electronically, [id number], [facility]/pharmacy #[id number], 160, cm, 05/20/21 14:1... Start [...] 3 Refills, Maintenance, 09/10/20 8:40:00 EDT, Tablet, [facility]/pharmacy #[id number], dose change 09/10/20, 165.1, cm, 01/02/20 14:39:00 EST, Height, 54.7, kg, 07/28/19 7:47:00 EDT, Dry Weight Start Date: 09/10/20 Status: OrderedmetFORMIN 500 mg oral tablet 1 tablet = 500 mg, By Mouth, Daily, with meals, # 90 tablet, 3 Refills, Maintenance, 05/15/21 10:18:00 EDT, Tablet, [facility]/pharmacy #207, 160, cm, 02/13/21 13:46:00 EDT, Height, 54.7, kg, 07/28/19 7:47:00 EDT, Dry Weight Start Date: 05/15/21 Status: Orderedmirtazapine 7.5 mg oral tablet 1 tablet = 7.5 mg, By Mouth, Daily at bedtime, for appetite, # 90 tablet, 3 Refills, Maintenance, 05/15/21 10:16:00 EDT, [facility], instructions in Tanzanian, 160, cm, 02/13/21 13:46:00 EDT, Height, 54.7, [...] 3 Refills, Maintenance, 07/04/21 9:45:00 EDT, Tablet, [facility]/pharmacy #2071, instructions in japanese, 160, cm, 07/04/21 9:33:00 EDT,Height, 54.7, kg, [...] [id number], Please put instructions in Tanzanian, 160, cm,02/13/21 13:46:00 EDT, Height, 54.7, kg, [...] Active 1positive bronchial challenge 2-092x-ray 2013 stable, xodbhrxisq59372 x-ray, pyaz5eeyncb 5 ehoeg5Begzpy emphysema per pulmo note per dqcmphyfreh6CJX negative 0-34-862jwnz (lateral basal segment of the left lower lobe), per CT 01-18-2009 done at [facility]9internal and external per 2011 wgoxzvyfwmy94nixxmsu consult written xvfgl21rlp CT from [facility], associated with ureteral stone. mild left hrnuabvhyiwksv27mgk CT from [facility] , ER was notified 13not starting meds due to polypharmacy and whsqibqoqmjag36Vuotihjq by Pulm in [place], stability on repeat CT Chest Sep 2020 per their clud56Rmq 10mm nodule LUNG-RADS 4B 6on 2007 x-kxo70rw 2009 [id number] DEXA: T-score lowest -3.719Rash developed 07/06/13 Social History Social History Type Response Smoking Status Former smoker; Other: per pt ; entered on: 04/21/18 Sex Male
[2022-09-15 20:13] VITALS: PULSE 89; RESP 28; O2SAT 95
[2022-09-15] MEDS: Albuterol/Iprat 2.5/0.5MG 3 ML AMPUL.NEB INHALE (20:13)
--- OUTSIDE RECORDS SUMMARY | 2022-09-15 20:13 | XMS_ITS | Continuity of Care Document ---
:1945 Demographics Address [address] [place] [address] Mobile Preferred Language es Marital Status Single Pentecostal Affiliation Nondenominational Race White Ethnic Group or Author Organization [facility] Address [address] [place] [address]- Care Team Providers Name Role Phone Cal BALLOON TESTER, Luz Simeon Primary Care Physician [facility] 12[facility]19 - 12/29/19 [facility] [address] [place] [address]- Attending Physician: Latasha Dumont Admitting Physician: Latasha [...] Given 1Result Comment: [09/24/2017] [facility] [id number] Note: VIS 7-123Admin Note: VIS given 06/23/11, south sudanese ymzo4Bnehc Note: VIS GIVEN 07/08/10 ksaujhb3Chwdun Comment: [04/02/2016] VIS in Mongolian akxgt0Hdnvz Note: sep 067Admin Note: vis given in Bkxvplp3Bjcrz Note: VIS given in Jtjanoo7Kgtfo Note: VIS IN UVRILBP72Fzoyi Note: VIS in wjgvpoi69Kskzj Note: VIS-VYURH98Hhlpl Note: VIS-GIVEN Medications Accu-Chek Compact 17-Strip Drum Test Strips See Instructions, # 50 each, Refills 11, Tot. Refills 11, Maintenance, Use to check Blood sugar everyday. E11.9, 09/22/19 8:48:49 EDT, Compound Start Date: 09/22/19 Status: OrderedAccu-Chek Compact Lancets See Instructions, # 50 each, Refills 11, Tot. Refills 11, Maintenance, Dx: E11.9. Glucose checks QD,09/22/19 8:48:48 EDT, Compound Start Date: 09/22/19 Status: Orderedalbuterol 2.5mg / 3mL (0.083%) (OP) 3 mL = 2.5 mg, Neb, Every 6 hours, 0 Refills, Maintenance Start Date: 10/17/19 Status: Orderedcalcium (as citrate)-vitamin D 315 mg-250 [...] Maintenance, 01/03/19 8:46:30 EST, Cream, instructions in Irish please, 1 application Topically 2 times a [...] 5 Refills, Maintenance, 12/22/19 10:21:00 EST, Cream, [facility]/pharmacy #2071, 1 application Topically 2 [...] 13:28:19 EDT, Tablet Start Date: 07/21/19 Status: Orderedmirtazapine 7.5 mg oral tablet 1 tablet = 7.5 mg, By Mouth, Daily at bedtime, for appetite, # 30 tablet, 11 Refills, Maintenance, 12/22/19 10:17:00 EST, [id number], instructions in Mongolian, 165.1, cm, 12/22/19 10:10:00 EST, Height, 54.7, [...] Maintenance, 08/02/19 11:35:19 EDT, Tablet, instructions in south sudanese Start Date: 08/02/19 Status: OrderedNebulizer/Compressor See Instructions, [...] 12/22/19 10:33:00 EST, Route to Pharmacy Electronically, [facility]/pharmacy #2071, 165.1, cm, 12/22/19 10:10:00 [...] Active 1positive bronchial challenge 2-092x-ray 2013 stable, uojocbafem36301 x-ray, hwqn0codlrc 5 zciif7Ioifct emphysema per pulmo note per nwvdcsbzlor8IEJ negative 3-93-742qzyq (lateral basal segment of the left lower lobe), per CT 01-18-2009 done at [facility]9internal and external per 2011 ocplptlhfoh02nftebio consult written ianwv62qvh CT from [facility], associated with ureteral stone. mild left jffuscvryatcoy64byz CT from [facility] , ER was notified 13not starting meds due to polypharmacy and ahrzhzkxahdos60Kxs 10mm nodule LUNG-RADS 4B 5on 2007 x-otx82if 2010 [id number]-[id number] DEXA: T-score lowest -3.718Rash developed 07/06/13 Social History Social History Type Response Smoking Status Former smoker; Other: per pt ; entered on: 04/21/18 Sex Male
--- OUTSIDE RECORDS SUMMARY | 2022-09-15 20:13 | XMS_ITS | Continuity of Care Document ---
:1945 Demographics Address [address] [place] [address] Mobile Preferred Language es Marital Status Single Yarsani Affiliation Zoroastrianism Race Unknown Ethnic Group or Author Organization [facility] Address [address] [place] [address]- Care Team Providers Name Role Phone Cal PRADO, Luz Simeon Primary Care Physician [facility] 07[facility]21 - 08/03/21 [facility] [address] [place] [address]- Attending Physician: Latasha Dumont Admitting Physician: AdmLatasha garrison Referring Physician: AdmtrLatasha Allergies, Adverse Reactions, Alerts Substance Reaction Severity Status doxycycline dizziness Active cephalexin rash Active traMADol Active gabapentin altered mental state Active Proventil HFA Nausea Active Nicotine Patch1 Bronchospasm Active Nausea Dizzy varenicline C/O: itching Active Nausea Insomnia 1see general med office note 4-3-09; pt [...] Vaccine (oldterm)12 10/08/06 Given 1Result Comment: [09/24/2017] [facility] [id number] Note: VIS 7-123Admin Note: VIS given 06/23/11, salvadorean vfgn0Syrsf Note: VIS GIVEN 07/08/10 aswkzdo2Qsiyhm Comment: [04/02/2016] VIS in Argentine ntdky3Wpqfy Note: sep 067Admin Note: vis given in Zlnpsvf1Jyxil Note: VIS given in Hesonfj7Awnfw Note: VIS IN GDMIAMY79Utzpf Note: VIS in qcrbopm72Uixjv Note: VIS-RERMU07Baxkj Note: VIS-GIVEN Medications albuterol CFC free 90 mcg/inh inhalation aerosol 1, puffs, Inhalation, 4 times a day, PRN, dx: J45.909, # 1 each, Refills 5, Tot. Refills 5, Maintenance, 06/10/21 15:20:00 EDT, Aerosol, Route to Pharmacy Electronically, [id number], [facility]/pharmacy #2071, 160, [...] 2 Refills, Maintenance, 07/04/21 9:57:00 EDT, Ointment, [facility]/pharmacy #2071, instead of Fluocinonide, 1 [...] tablet, 3 Refills, Maintenance, 05/15/21 10:16:00 EDT, [facility]/pharmacy #2071, instructions in Argentine, 160, cm, 02/13/21 13:46:00 EDT, Height, 54.7, [...] 9:45:00 EDT, Tablet, [facility], instructions in salvadorean, 160, cm, 07/04/21 9:33:00 EDT,Height, 54.7, kg, [...] 10:03:00 EST, [facility]/pharmacy #2071, 160, cm, 12/03/20 9:29:00 EST, Height, 54.7, kg, 07/28/19 7:47:00 EDT, Dry Weight Start Date: 12/05/20 Status: OrderedSingulair 10 mg oral tablet 10 mg, 1, tablet, By Mouth, Daily in PM, # 90 tablet, Refills 3, Tot. Refills 3, Maintenance, 05/15/21 10:17:00 EDT, Route to Pharmacy Electronically, [facility]/pharmacy #207, 160, cm, 02/13/21 13:46:00 [...] [facility]/pharmacy #207, Please put instructions in Argentine, 160, cm,02/13/21 13:46:00 EDT, Height, 54.7, kg, 07/28/19... Start Date: 04/14/21 Status: Ordered Problem List Condition Effective Dates Status Health Status Informant Asthma(Confirmed)1 01/23/09 Active Cataract(Confirmed) Active Cervical arthritis(Confirmed)2, 3 Active Colonoscopy(Confirmed)4 7/5/07 Active COPD - Chronic obstructive pulmonary Active [...] Active 1positive bronchial challenge 2-092x-ray 2013 stable, cmpucvauae56271 x-ray, rtjl0olmmdn 5 lkkfi0Hlkiny emphysema per pulmo note per -2011 lehkmpifhqe0SNS negative 6-35-657zgtm (lateral basal segment of the left lower lobe), per CT 01-18-2009 done at [facility]9internal and external per 2011 ytxkwtqihuq04ktibiva consult written moeem45bvs CT from [facility], associated with ureteral stone. mild left wmceovhyxgcdbi90usn CT from [facility] , ER was notified 13not starting meds due to polypharmacy and dzvhxpzhmvgbl90Dyqlgqhb by Pulm in [place], stability on repeat CT Chest Sep 2020 per their wmns71Ues 10mm nodule LUNG-RADS 4B 6on 2007 x-ykg20cu 2009 [id number] DEXA: T-score lowest -3.719Rash developed 07/06/13 Social History Social History Type Response Smoking Status Former smoker; Other: per pt ; entered on: 04/21/18 Sex Male
--- OUTSIDE RECORDS SUMMARY | 2022-09-15 20:13 | XMS_ITS | Continuity of Care Document ---
:1945 Demographics Address [address] [place] [address] Mobile Preferred Language es Marital Status Single Jehovah'S Witness Affiliation Pentecostalism Race Unknown Ethnic Group or Author Organization [facility] Address [address] [place] [address]- Care Team Providers Name Role Phone Cal PRADO, Luz Simeon Primary Care Physician Encounter [facility] Date(s): 05/27/20 - 06/26/[address] [address]- [facility] Attending Physician: Latasha Dumont Admitting Physician: Latasha Dumont Referring Physician: AdmtrLatasha Allergies, Adverse Reactions, Alerts [...] Comment: [09/24/2017] [facility] [id number] Note: VIS 7-123Admin Note: VIS given 06/23/11, hebrew zbwh5Peoxa Note: VIS GIVEN 07/08/10 nfkoxuq8Iyqbkd Comment: [04/02/2016] VIS in Malagasy ladyl4Rzxfe Note: sep 067Admin Note: vis given in Uhnajht7Jhfqk Note: VIS given in Tvjxduj0Btrpn Note: VIS IN DXLMSSF49Noyto Note: VIS in psdgywx41Xqrxl Note: VIS-TCQLC02Mukrr Note: VIS-GIVEN Medications Accu-Chek Compact 17-Strip Drum [...] for pain, not to exceed 3000 mg/day Malagasy instructions please, # 120 capsule, 0 Refills, [...] 10:06:00 EDT, Aerosol, Route to Pharmacy Electronically, [id number], [facility]/pharmacy #2071, 165.1, cm, 01/02/20 14:39:00 EST,... Start Date: 04/08/20 Status: Orderedalbuterol-ipratropium 3 mg-0.5 mg/3 ml inhalation solution 3 mL, Inhalation, 4 times a day, dx asthma J45, # 100 each, 11 Refills, Maintenance, 04/08/20 14:30:00 EDT, Solution, [facility]/pharmacy #2071, 3 mL Inhalation 4 times [...] 2 Refills, Maintenance, 04/29/20 14:00:00 EDT, Ointment, [facility]/pharmacy #207, replaced Fluocinonide, 1 application Topically 2 [...] Maintenance, 01/03/19 8:46:30 EST, Cream, instructions in Papua [place] Guinean please, 1 application Topically 2 times a [...] 5 Refills, Maintenance, 12/22/19 10:21:00 EST, Cream, [facility]/pharmacy #2071, 1 application Topically 2 times a day, 165.1, cm, 12/22/19 10:10:00 EST, Height, 54.7, kg, 07/28/19 7:47:00 EDT, Dry Weight Start Date: 12/22/19 Status: Orderedfluticasone-salmeterol 232 mcg-14 mcg/inh inhalation powder 1 inhalation, Inhalation, 2 times a day, rinse mouth and throat after use, # 1 each, 11 Refills, Maintenance, 03/21/20 8:53:00 EDT, Powder, [facility]/pharmacy #2071, 1 inhalation Inhalation 2 times [...] 11 Refills, Maintenance, 03/21/20 8:36:00 EDT, Tablet, [facility]/pharmacy #207, 165.1, cm, 01/02/20 14:39:00 EST, Height, 54.7, kg, 07/28/19 7:47:00 EDT, Dry Weight Start Date: 03/21/20 Status: Orderedmirtazapine 7.5 mg oral tablet 1 tablet = 7.5 mg, By Mouth, Daily at bedtime, for appetite, # 30 tablet, 11 Refills, Maintenance, 12/22/19 10:17:00 EST, [facility], instructions in Malagasy, 165.1, cm, 12/22/19 10:10:00 EST, Height, 54.7, kg, 07/28/19 7:47:00 EDT, Dry Weight Start Date: 12/22/19 Status: Orderedmultivitamin Multiple Vitamins oral capsule 1 capsule, By Mouth, Daily, # 90 capsule, 3 Refills, Maintenance, 12/22/19 10:33:00 EST, Capsule, [facility]/pharmacy #207, 1 capsule By Mouth Daily, 165.1, cm, 12/22/19 10:10:00 EST, Height, 54.7, kg, 07/28/19 7:47:00 EDT, Dry Weight Start Date: 12/22/19 Status: Orderednabumetone 500 mg oral tablet 1 tablet = 500 mg, By Mouth, 2 times a day, for knee pain, # 60 tablet, 3 Refills, Maintenance, 08/02/19 11:35:19 EDT, Tablet, instructions in hebrew Start Date: 08/02/19 Status: OrderedNebulizer/Compressor See Instructions, [...] tablet, 3 Refills, Maintenance, 03/16/20 9:39:00 EDT, [facility]/pharmacy #2071, 165.1, cm, 01/02/20 14:39:00 EST, [...] 12/22/19 10:33:00 EST, Route to Pharmacy Electronically, [facility]/pharmacy #2071, 165.1, cm, 12/22/19 10:10:00 EST, [...] Hyperlipidemia(Confirmed) 04/2010 Active Insomnia(Confirmed) Active Kidney stone(Confirmed)12 2/20/09 Active DJD (degenerative joint disease), Active lumbar(Confirmed) Lung nodule(Confirmed) Active Microalbuminuria(Confirmed)13 01/03/19 Active Multiple lung nodules on 09/13/[address](Confirmed)14 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 Osteoarthritis of knee(Confirmed)16 12/2009 Active Osteoporosis(Confirmed)17 2011 Active 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 mild left rzkmmkmkfpxuwf12dfk CT from [facility] , ER was notified 13not starting meds due to polypharmacy and tpqspbbxslqdo27Cbc 10mm nodule LUNG-RADS 4B 5on 2007 x-ksv92sw 2009 [id number] DEXA: T-score lowest -3.718Rash developed 07/06/13 Social History Social History Type Response Smoking Status Former smoker; Other: per pt ; entered on: 04/21/18 Sex Male
--- OUTSIDE RECORDS SUMMARY | 2022-09-15 20:13 | XMS_ITS | Continuity of Care Document ---
:1945 Demographics Address [address] [place] [address] Mobile Preferred Language es Marital Status Single Evangelical Affiliation Rastafarian Race White Ethnic Group or Author Organization [facility] Address [address] [place] [phone]- Care Team Providers Name Role Phone Cal PRADO, Luz Simeon Primary Care Physician [facility] - 03/23/[address] [address]- [facility] Attending Physician: Sharona Pedroza NP Allergies, [...] Vaccine (oldterm)12 10/08/06 Given 1Result Comment: [09/24/2017] [facility] [id number] Note: VIS 7-123Admin Note: VIS given 06/23/11, malian dauq3Dcrrn Note: VIS GIVEN 07/08/10 rycqomm3Fksbfy Comment: [04/02/2016] VIS in Korean eonva1Csvmd Note: sep 067Admin Note: vis given in Bbdtpux9Dqcer Note: VIS given in Kygxvmx5Eedad Note: VIS IN DPSQDZA97Dcibw Note: VIS in lurvury90Myzlt Note: VIS-JCHNC78Qevfa Note: VIS-GIVEN Medications Accu-Chek Compact 17-Strip Drum [...] for pain, not to exceed 3000 mg/day Korean instructions please, # 120 capsule, 0 Refills, [...] 11 Refills, Maintenance, 03/20/20 14:19:00 EDT, Solution, [facility]/pharmacy #[id number], 3 mL Inhalation 4 [...] Maintenance, 01/03/19 8:46:30 EST, Cream, instructions in Montenegrin please, 1 application Topically 2 times a [...] Refills, Maintenance, 12/22/19 10:21:00 EST, Cream, [facility]/pharmacy #[id number], 1 application Topically 2 times a day, 165.1, cm, 12/22/19 10:10:00 EST, Height, 54.7, kg, 07/28/19 7:47:00 EDT, Dry Weight Start Date: 12/22/19 Status: Orderedfluticasone-salmeterol 232 mcg-14 mcg/inh inhalation powder 1 inhalation, Inhalation, 2 times a day, rinse mouth and throat after use, # 1 each, 11 Refills, Maintenance, 03/21/20 8:53:00 EDT, Powder, [facility]/pharmacy #207, 1 inhalation Inhalation 2 times a day,Instr:rinse [...] EDT, Tablet, [facility]/pharmacy #[id number], 165.1, cm, 01/02/20 14:39:00 EST, Height, 54.7, kg, 07/28/19 7:47:00 EDT, Dry Weight Start Date: 03/21/20 Status: Orderedmirtazapine 7.5 mg oral tablet 1 tablet = 7.5 mg, By Mouth, Daily at bedtime, for appetite, # 30 tablet, 11 Refills, Maintenance, 12/22/19 10:17:00 EST, [facility]/pharmacy #207, instructions in Korean, 165.1, cm, 12/22/19 10:10:00 EST, Height, 54.7, kg, 07/28/19 7:47:00 EDT, Dry Weight Start Date: 12/22/19 Status: Orderedmultivitamin Multiple Vitamins oral capsule 1 capsule, By Mouth, Daily, # 90 capsule, 3 Refills, Maintenance, 12/22/19 10:33:00 EST, Capsule, [facility]/pharmacy #207, 1 capsule By Mouth Daily, 165.1, cm, 12/22/19 10:10:00 EST, Height, 54.7, kg, 07/28/19 7:47:00 EDT, Dry Weight Start Date: 12/22/19 Status: Orderednabumetone 500 mg oral tablet 1 tablet = 500 mg, By Mouth, 2 times a day, for knee pain, # 60 tablet, 3 Refills, Maintenance, 08/02/19 11:35:19 EDT, Tablet, instructions in malian Start Date: 08/02/19 Status: OrderedNebulizer/Compressor See Instructions, # 1 each, Maintenance, D: COPD severe, Gold Ct 4 For use PRN Q4hr for shortness ofbreath, 12/22/19 10:19:00 EST, Compound Start Date: 12/22/19 Status: Orderedomeprazole 20 mg oral enteric coated capsule 1 capsule = 20 mg, By Mouth, Daily, # 90 capsule, 3 Refills, Soft Stop, 12/22/19 10:33:00 EST, [facility]/pharmacy #[id number], 165.1, cm, 12/22/19 10:10:00 EST, Height, 54.7, kg, 07/28/19 7:47:00 EDT, Dry Weight Start Date: 12/22/19 Status: OrderedpredniSONE 10 mg oral tablet 1 tablet = 10 mg, By Mouth, Daily, # 90 tablet, 3 Refills, Maintenance, 03/16/20 9:39:00 EDT, [facility]/pharmacy #2071, 165.1, [...] Pharmacy Electronically, [facility]/pharmacy #[id number], 165.1, [...] Active 1positive bronchial challenge 2-092x-ray 2013 stable, uigofjvsgp20838 x-ray, brma1lgzzmo 5 mkhiw7Uqypwn emphysema per pulmo note per nuvljessbci6UYF negative 6-54-517eake (lateral basal segment of the left lower lobe), per CT 01-18-2009 done at [facility]9internal and external per 2011 sisbqgnjrcf92ilrbxyh consult written engdl27obk CT from [facility], associated with ureteral stone. mild left pkfbynytnyoqok50ips CT from [facility] , ER was notified 13not starting meds due to polypharmacy and qsgflyhqsesiz00Jyi 10mm nodule LUNG-RADS 4B 5on 2007 x-sbe16nl 2009 [id number] DEXA: T-score lowest -3.718Rash developed 07/06/13 Social History Social History Type Response Smoking Status Former smoker; Other: per pt ; entered on: 04/21/18 Sex Male
--- OUTSIDE RECORDS SUMMARY | 2022-09-15 20:13 | XMS_ITS | Continuity of Care Document ---
:1945 Demographics Address [address] [place] [address] Mobile Preferred Language es Marital Status Single Yazidism Affiliation Mu-Ism Race Unknown Ethnic Group or Author Organization [facility] Address [address] [place] [address]- Care Team Providers Name Role Phone Cal PRADO, Luz Simeon Primary Care Physician [facility] 12[facility]19[facility]20 - 01/18/21 [facility] [address] [place] [address]- Allergies, Adverse Reactions, Alerts Substance Reaction Severity [...] Vaccine (oldterm)12 10/08/06 Given 1Result Comment: [09/24/2017] [facility] [id number] Note: VIS 7-123Admin Note: VIS given 06/23/11, malawian gtjm4Svbxg Note: VIS GIVEN 07/08/10 irtysfv2Kggmjk Comment: [04/02/2016] VIS in Kyrgyz rrdat0Obspg Note: sep 067Admin Note: vis given in Dmyzinp5Undcx Note: VIS given in Oyrikny8Ozatf Note: VIS IN LJKZGBR10Vvifh Note: VIS in ptpcvti67Kaqpe Note: VIS-UWSIA53Ilgeb Note: VIS-GIVEN Medications Accu-Chek Compact 17-Strip Drum [...] for pain, not to exceed 3000 mg/day Kyrgyz instructions please, # 120 capsule, 0 Refills, [...] 10:06:00 EDT, Aerosol, Route to Pharmacy Electronically, [id number], [facility]/pharmacy #[id number], 165.1, cm, 01/02/20 14:39:00 EST,... Start Date: 04/08/20 Status: Orderedalbuterol-ipratropium 3 mg-0.5 mg/3 ml inhalation solution 3 mL, Inhalation, 4 times a day, dx asthma J45, # 100 each, 11 Refills, Maintenance, 04/08/20 14:30:00 EDT, Solution, [facility]/pharmacy #[id number], 3 mL Inhalation 4 times a day,Instr:dx asthma J45, 165.1, cm, 01/02/20 14:39:00 EST, Height, 54.7, kg, 07/28/19 7... Start Date: 04/08/20 Status: OrderedAnoro Ellipta 62.5 mcg-25 mcg/inh inhalation powder 1 puffs, Inhalation, Daily, # 60 each, 4 Refills, Maintenance, 12/07/20 12:11:00 EST, Powder, [facility]/pharmacy #[id number], Partial fill upon patient [...] 2 Refills, Maintenance, 04/29/20 14:00:00 EDT, Ointment, [facility]/pharmacy #2071, replaced Fluocinonide, 1 application Topically 2 times a day,Instr:For severe eczema, 165.1, cm, 01/02/20... Start Date: 04/29/20 Status: Orderedcalcium (as carbonate)-vitamin D 500 mg-400 intl units oral tablet 1 tablet, By Mouth, 2 times a day, # 60 tablet, 11 Refills, Maintenance, 12/10/20 11:55:00 EST, Tablet, [facility]/pharmacy #[id number], Partial fill upon patient request if the prescription is for a schedule II opioid drug., 1 tablet By Mouth 2 times a day, 160,... Start Date: 12/10/20 Status: Orderedcapsaicin 0.025% topical cream 1 application, Topically, 2 times a day, to affected area avoid contact with face and eyes, # 45 Gm,1 Refills, Maintenance, 01/03/19 8:46:30 EST, Cream, instructions in Israeli please, 1 application Topically 2 times a [...] 5 Refills, Maintenance, 12/22/19 10:21:00 EST, Cream, [facility]/pharmacy #2071, 1 application Topically 2 times [...] 3 Refills, Maintenance, 09/10/20 8:40:00 EDT, Tablet, [facility]/pharmacy #2071, dose change 09/10/20, 165.1, cm, [...] 12/22/19 10:17:00 EST, [facility], instructions in Kyrgyz, 165.1, cm, 12/22/19 10:10:00 EST, Height, 54.7, [...] 13:38:00 EDT, Tablet, [id number], instructions in malawian, 165.1, cm, 01/02/20 14:39:00 EST, Height, 54.7, [...] 12/22/19 10:33:00 EST, Route to Pharmacy Electronically, [facility]/pharmacy #[id number], 165.1, cm, 12/22/19 10:10:00 EST, [...] Active 1positive bronchial challenge 2-2x-ray 2013 stable, byjxyebhgl22494 x-ray, lexl6guwppe 5 xympl5Odkdtv emphysema per pulmo note 05/18/per yquktlzyqpb7MUJ negative 1-33-418oxyn (lateral basal segment of the left lower lobe), per CT 01-18-2009 done at [facility]9internal and external per 2011 cuhgwmbyudb04jzdycmx consult written xffca27uju CT from [facility], associated with ureteral stone. mild left ynnsclmekoqhyp83jfq CT from [facility] , ER was notified 13not starting meds due to polypharmacy and pzymspfsccgtq00Fms 10mm nodule LUNG-RADS 4B 09/20/1915on 2007 x-dxs06gj 2009 [id number] DEXA: T-score lowest -3.718Rash developed 07/06/13 Social History Social History Type Response Smoking Status Former smoker; Other: per pt ; entered on: 04/21/18 Sex Male
--- OUTSIDE RECORDS SUMMARY | 2022-09-15 20:13 | XMS_ITS | Continuity of Care Document ---
:1945 Demographics Address [address] [place] [address] Mobile Preferred Language spa Marital Status Single Confucianism Affiliation Denominational Race Unknown Ethnic Group or Author Organization [facility] Address [address] [place] [phone]- Care Team Providers Name Role Phone Cal PRADO, Luz Simeon Primary Care Physician [facility]): 02[facility]22 - 04/24/22 [facility] [address] [place] [address] Attending Physician: Mook Gordon MD Admitting Physician: Mook Gordon MD Allergies, Adverse Reactions, Alerts Substance Reaction [...] Vaccine (oldterm)12 10/08/06 Given 1Result Comment: [09/24/2017] [facility] [id number] Note: VIS 7-123Admin Note: VIS given 06/23/11, nicaraguan jhpd7Nqppx Note: VIS GIVEN 07/08/10 uexajld7Mlidjg Comment: [04/02/2016] VIS in Macanese ubzry3Hqsns Note: sep 067Admin Note: vis given in Kfjdbst4Dfpkv Note: VIS given in Kbddewp0Tiyqw Note: VIS IN FFBPNOZ80Tcajp Note: VIS in exttrpx44Xsvtr Note: VIS-ZSOMG90Nhodr Note: VIS-GIVEN Medications 3cc Leur-Stephanie syringe, 22 [...] 15:20:00 EDT, Aerosol, Route to Pharmacy Electronically, [id number], [facility]/pharmacy #207, 160, cm, 05/20/21 14:1... Start [...] 5 Refills,Maintenance, 01/05/22 15:24:00 EST, CR Capsule, [facility]/pharmacy #[id number], Partial fill upon [...] mcg, By Mouth, Daily, # 90 tablet, 0 Refills, Maintenance, 04/10/22 10:22:00 EDT, Tablet, [facility]/pharmacy #207, dose change 09/10/20, 160, cm, 04/03/22 9:35:00 EDT, Height Start Date: 04/10/22 Status: OrderedmetFORMIN 500 mg oral tablet 1 tablet = 500 mg, By Mouth, Daily, with meals, # 90 tablet, 3 Refills, Maintenance, 05/15/21 10:18:00 EDT, Tablet, [facility]/pharmacy #207, 160, cm, 02/13/21 13:46:00 EDT, Height, 54.7, kg, 07/28/19 7:47:00 EDT, Dry Weight Start Date: 05/15/21 Status: Orderedmirtazapine 7.5 mg oral tablet 1 tablet = 7.5 mg, By Mouth, Daily at bedtime, for appetite, # 90 tablet, 3 Refills, Maintenance, 05/15/21 10:16:00 EDT, [id number], instructions in Macanese, 160, cm, 02/13/21 13:46:00 EDT, Height, 54.7, [...] 2 Refills, Maintenance, 01/01/22 12:39:00 EST, Tablet, [facility], instructions in nicaraguan, 160, cm, 01/01/22 10:25:00 EST, Height Start [...] 11 Refills, Maintenance, 11/01/20 11:26:00 EST, Patch, [facility]/pharmacy #207, 165.1, cm, 09/26/20 9:02:00 EDT, [...] 3 Refills, Soft Stop, 08/22/21 11:44:00 EDT, [facility]/pharmacy #207, 160, cm, 08/22/21 11:06:00 EDT, Height Start Date: 08/22/21 Status: OrderedPEG-3350 with Electrolytes (Eqv-GoLYTELY) oral powder for reconstitution See Instructions, Take the day before your colnoscopy as directed by provider, # 1 each, 0 Refills, Maintenance, 02/02/22 14:55:00 EST, [facility], Partial fill upon patient request if the prescription is for a schedule II opioid drug.... Start Date: 02/02/22 Status: OrderedpredniSONE 10 mg oral tablet See Instructions, 1.5 tablet By Mouth Daily, # 45 tablet, 2 Refills, Maintenance, 01/05/22 14:14:00 EST, [facility]/pharmacy #207, Partial fill upon patient request if the prescription is for a schedule II opioid drug., 160, cm, 01/05/22 13:54:00 EST, Height Start Date: 01/05/22 Status: OrderedpredniSONE 10 mg oral tablet TOME NAZ TABLETA TODOS LOS D Start Date: 08/22/21 Status: OrderedReadi-Cat 2 oral suspension See Instructions, For use with CT scan, # 2 each, 0 Refills, Maintenance, 02/04/22 14:06:00 EST, [facility] Partial fill upon patient request if the prescription is for a schedule II opioid drug., For use with CT scan, 160, cm, ... Start Date: 02/04/22 Status: OrderedSingulair 10 mg oral tablet 10 mg, 1, tablet, By Mouth, Daily in PM, # 90 tablet, Refills 3, Tot. Refills 3, Maintenance, 05/15/21 10:17:00 EDT, Route to Pharmacy Electronically, [facility]/pharmacy #[id number], 160, cm, 02/13/21 13:46:00 EDT, Height, 54.7, kg, 07/28/19 7:47:00 EDT, Dry Weight Start Date: 05/15/21 Status: OrderedTestosterone Cypionate 200 mg/mL intramuscular solution = 100 mg, Intramuscular, Every 14 days, # 2 mL, 4 Refills, Maintenance, 11/06/21 17:01:00 EST, [facility]/pharmacy #[id number], 160, cm, 11/04/21 9:21:00 [...] 11 Refills, Maintenance, 08/22/21 11:46:00 EDT, Powder, [facility]/pharmacy #2071, Partial fill upon patient request if theprescription is for a schedule II opioid drug., 1... Start Date: 08/22/21 Status: OrderedVitamin D3 5000 intl units oral capsule 1 capsule = 5,000 International_Units, By Mouth, Daily, with food, # 30 capsule, 6 Refills, Maintenance, 04/14/21 10:42:00 EDT, Capsule, [id number], Please put instructions in Macanese, 160, cm,02/13/21 13:46:00 EDT, Height, 54.7, kg, [...] Active 1positive bronchial challenge 2-092x-ray 2013 stable, mhvcuoeahw78738 x-ray, qbgo1tpofdf 5 fvsdu6Fhpcvk emphysema per pulmo note per -2011 tnyjymospsp4BDW negative 6-13-682mpda (lateral basal segment of the left lower lobe), per CT 01-18-2009 done at [facility]9internal and external per 2011 twelrurbhto75qrzkreu consult written ptzbt43tzy CT from [facility], associated with ureteral stone. mild left zemffgnaysorkp28Njtjge stone Oct 2021, seeing kcmzblk63vyr CT from [facility] , ER was notified 14not starting meds due to polypharmacy and tlyauidfgsvqf84Kwpaagyk by [facility] in [place], stability on repeat CT Chest Sep 2020 per their rtht58Cvp 10mm nodule LUNG-RADS 4B 09/20/1917on 2007 x-jqp34rm 2009 [id number] DEXA: T-score lowest -3.720Rash developed 07/06/13 Social History Social History Type Response Smoking Status Former smoker; Other: per pt ; entered on: 04/21/18 Sex Male
--- OUTSIDE RECORDS SUMMARY | 2022-09-15 20:13 | XMS_ITS | Continuity of Care Document ---
:1945 Demographics Address [address] [place] [address] Mobile Preferred Language es Marital Status Single Adventist Affiliation Tenriism Race White Ethnic Group or Author Organization [facility] Address [address] [place] [address]- Care Team Providers Name Role Phone Cal DERRICK BOAT CAPTAIN, Luz Simeon Primary Care Physician [facility] 02[facility]20 - 03/03/[address] [address]- [facility] Attending Physician: Latasha Dumont Admitting [...] Vaccine (oldterm)12 10/08/06 Given 1Result Comment: [09/24/2017] [facility] [id number] Note: VIS 7-123Admin Note: VIS given 06/23/11, citizen of [place] ugzp5Ofvvr Note: VIS GIVEN 07/08/10 yqjjihh9Zmqrka Comment: [04/02/2016] VIS in Chinese biilk0Hmprd Note: sep 067Admin Note: vis given in Lzefdlr2Nuvge Note: VIS given in Ztynflq1Tqjth Note: VIS IN SKKUZGB63Igjiy Note: VIS in tvknpko18Ujkhl Note: VIS-EHAGS08Belnj Note: VIS-GIVEN Medications Accu-Chek Compact 17-Strip Drum [...] for pain, not to exceed 3000 mg/day Chinese instructions please, # 120 capsule, 0 Refills, [...] Maintenance, 01/03/19 8:46:30 EST, Cream, instructions in South African please, 1 application Topically 2 times a [...] 5 Refills, Maintenance, 12/22/19 10:21:00 EST, Cream, [facility]/pharmacy #[id number], 1 application Topically 2 [...] tablet, 11 Refills, Maintenance, 12/22/19 10:17:00 EST, [facility]/pharmacy #[id number], instructions in Chinese, 165.1, cm, 12/22/19 10:10:00 EST, Height, 54.7, kg, 07/28/19 7:47:00 EDT, Dry Weight Start Date: 12/22/19 Status: Orderedmultivitamin Multiple Vitamins oral capsule 1 capsule, By Mouth, Daily, # 90 capsule, 3 Refills, Maintenance, 12/22/19 10:33:00 EST, Capsule, [facility]/pharmacy #2071, 1 capsule By Mouth Daily, 165.1, cm, 12/22/19 10:10:00 EST, Height, 54.7, kg, 07/28/19 7:47:00 EDT, Dry Weight Start Date: 12/22/19 Status: Orderednabumetone 500 mg oral tablet 1 tablet = 500 mg, By Mouth, 2 times a day, for knee pain, # 60 tablet, 3 Refills, Maintenance, 08/02/19 11:35:19 EDT, Tablet, instructions in citizen of [place] Start Date: 08/02/19 Status: OrderedNebulizer/Compressor See Instructions, # 1 each, Maintenance, D: COPD severe, Gold Ct 4 For use PRN Q4hr for shortness ofbreath, 12/22/19 10:19:00 EST, Compound Start Date: 12/22/19 Status: Orderedomeprazole 20 mg oral enteric coated capsule 1 capsule = 20 mg, By Mouth, Daily, # 90 capsule, 3 Refills, Soft Stop, 12/22/19 10:33:00 EST, [facility]/pharmacy #2071, 165.1, cm, 12/22/19 10:10:00 [...] 12/22/19 10:33:00 EST, Route to Pharmacy Electronically, [facility]/pharmacy #[id number], 165.1, cm, 12/22/19 10:10:00 [...] Active 1positive bronchial challenge 2-092x-ray 2013 stable, rdkijkvjqo02711 x-ray, bwus6lrjmay 5 ilurw3Yhompd emphysema per pulmo note per zrwnstoagxa6JUG negative 6-79-859kiis (lateral basal segment of the left lower lobe), per CT 01-18-2009 done at [facility]9internal and external per 2011 ypeulrekawv79ntahnmj consult written hzxfo32ndu CT from [facility], associated with ureteral stone. mild left flzhrdowuqfnea04tba CT from [facility] , ER was notified 13not starting meds due to polypharmacy and vrskrsqdtjjxw67Pst 10mm nodule LUNG-RADS 4B 5on 2007 x-tur03fv 2009 [id number] DEXA: T-score lowest -3.718Rash developed 07/06/13 Social History Social History Type Response Smoking Status Former smoker; Other: per pt ; entered on: 04/21/18 Sex Male
--- OUTSIDE RECORDS SUMMARY | 2022-09-15 20:13 | XMS_ITS | Continuity of Care Document ---
:1945 Demographics Address [address] [place] [address] Mobile Preferred Language es Marital Status Single Roman Catholic Affiliation Pentecostal Race Unknown Ethnic Group or Author Organization [facility] Address [address] [place] [address]- Care Team Providers Name Role Phone Cal PRADO, Luz Simeon Primary Care Physician [facility] 03[facility] - 04/18/21 [facility] [address] [place] [address]- Allergies, Adverse Reactions, Alerts Substance Reaction Severity [...] [facility] [id number] Note: VIS 7-123Admin Note: VIS given 06/23/11, brazilian pepy9Romle Note: VIS GIVEN 07/08/10 xacaqoj7Juxmxf Comment: [04/02/2016] VIS in Lithuanian fbsug1Tbzeg Note: sep 067Admin Note: vis given in Zrhngzv7Hosvb Note: VIS given in Xnjakxw3Xoafd Note: VIS IN QWBHHXT30Orghm Note: VIS in jlkohge84Qenpg Note: VIS-YWSYY92Bgoqb Note: VIS-GIVEN Medications acetaminophen 500 mg oral capsule 2 capsule = 1,000 mg, By Mouth, 3 times a day, PRN for pain, not to exceed 3000 mg/day Lithuanian instructions please, # 120 capsule, 0 Refills, Maintenance, 01/02/20 14:40:00 EST, Capsule, [facility], 165.1, cm, 12/22/19 10:10:00 EST, Height, 5... Start Date: 01/02/20 Status: Orderedalbuterol CFC free 90 mcg/inh inhalation aerosol 1, puffs, Inhalation, 4 times a day, PRN, # 1 each, Refills 11, Tot. Refills 11, Maintenance, 04/08/20 10:06:00 EDT, Aerosol, Route to Pharmacy Electronically, [id number], [facility], 165.1, cm, 01/02/20 14:39:00 EST,... [...] Refills, Maintenance, 12/10/20 11:55:00 EST, Tablet, [facility]/pharmacy #207, Partial fill upon patient request if [...] 04/17/21 Status: OrderedlevoFLOXacin 500 mg oral tablet TOMRoasmaria VOGEL TOLAKSHMI LOS D Start Date: 02/13/21 Status: Orderedlevothyroxine 0.112 mg oral tablet 1 tablet = 112 mcg, By Mouth, Daily, # 90 tablet, 3 Refills, Maintenance, 09/10/20 8:40:00 EDT, Tablet, [facility]/pharmacy #2071, dose change 09/10/20, 165.1, cm, 01/02/20 14:39:00 EST, Height, 54.7, kg, 07/28/19 7:47:00 EDT, Dry Weight Start Date: 09/10/20 Status: OrderedmetFORMIN 500 mg oral tablet 1 tablet = 500 mg, By Mouth, Daily, with meals, # 30 tablet, 11 Refills, Maintenance, 03/21/20 8:36:00 EDT, Tablet, [facility]/pharmacy #2071, 165.1, cm, 01/02/20 14:39:00 EST, Height, 54.7, kg, 07/28/19 7:47:00 EDT, Dry Weight Start Date: 03/21/20 Status: Orderedmirtazapine 7.5 mg oral tablet 1 tablet = 7.5 mg, By Mouth, Daily at bedtime, for appetite, # 30 tablet, 11 Refills, Maintenance, 12/22/19 10:17:00 EST, [facility], instructions in Lithuanian, 165.1, cm, 12/22/19 10:10:00 EST, Height, 54.7, [...] 13:38:00 EDT, Tablet, [facility], instructions in brazilian, 165.1, cm, 01/02/20 14:39:00 EST, Height, 54.7, [...] 11 Refills, Maintenance, 11/01/20 11:26:00 EST, Patch, [facility]/pharmacy #2070, 165.1, cm, 09/26/20 9:02:00 EDT, Height, 54.7, kg, 07/28/19 7:47:00 EDT, Dry Weight Start Date: 11/01/20 Stop Date: 10/27/21 Status: Orderedomeprazole 20 mg oral enteric coated capsule 1 capsule = 20 mg, By Mouth, Daily, # 90 capsule, 3 Refills, Soft Stop, 08/18/20 13:37:00 EDT, [facility]/pharmacy #2070, 165.1, cm, 01/02/20 14:39:00 EST, Height, 54.7, kg, 07/28/19 7:47:00 EDT, Dry Weight Start Date: 08/18/20 Status: OrderedpredniSONE 10 mg oral tablet 1 tablet = 10 mg, By Mouth, Daily, # 90 tablet, 3 Refills, Maintenance, 12/05/20 10:03:00 EST, [facility]/pharmacy #2070, 160, cm, 12/03/20 9:29:00 EST, Height, [...] Route to Pharmacy Electronically, [facility]/pharmacy #[id number], 165.1, cm, 12/22/19 10:10:00 EST, Height, [...] Refills, Maintenance, 04/14/21 10:42:00 EDT, Capsule, [id number], Please put instructions in Lithuanian, 160, cm,02/13/21 13:46:00 EDT, Height, 54.7, kg, [...] Active 1positive bronchial challenge 2-092x-ray 2013 stable, zpvuxecrbc26500 x-ray, mzkd8uhmvdl 5 dmcef2Adrfht emphysema per pulmo note per -2011 zmcrhoyobzp9MDZ negative 2-29-286pedh (lateral basal segment of the left lower lobe), per CT 01-18-2009 done at [facility]9internal and external per 2011 hvhtmficqqi99wefkayb consult written nftin57egi CT from [facility], associated with ureteral stone. mild left ernuvjodrxqjbf97ofo CT from [facility] , ER was notified 13not starting meds due to polypharmacy and elyfvcvedyqrc30Ptjgfixb by [facility] in [place], stability on repeat CT Chest Sep 2020 per their aubi68Mgp 10mm nodule LUNG-RADS 4B 6on 2007 x-nyx95ei 2009 [id number] DEXA: T-score lowest -3.719Rash developed 07/06/13 Social History Social History Type Response Smoking Status Former smoker; Other: per pt ; entered on: 04/21/18 Sex Male
--- OUTSIDE RECORDS SUMMARY | 2022-09-15 20:13 | XMS_ITS | Continuity of Care Document ---
:1945 Demographics Address [address] [place] [address] Mobile Preferred Language es Marital Status Single Orthodoxy Affiliation Gnosticist Race Unknown Ethnic Group or Author Organization [facility] Address [address] [place] [address]- Care Team Providers Name Role Phone Cal PRADO, Luz Simeon Primary Care Physician [facility] Date[facility]s): [facility]21 - 07/30/21 [facility] [address] [place] [address] Attending Physician: Latasha Dumont Admitting Physician: Admtr, Manav8 Referring Physician: Admtr, Ar8 Allergies, Adverse Reactions, [...] Vaccine (oldterm)12 10/08/06 Given 1Result Comment: [09/24/2017] [facility] [id number] Note: VIS 7-123Admin Note: VIS given 06/23/11, nepali lldz5Acjjl Note: VIS GIVEN 07/08/10 fzlclgu4Pqzbcs Comment: [04/02/2016] VIS in Libyan yhiqp7Wcpwo Note: sep 067Admin Note: vis given in Bmqierl6Wefdy Note: VIS given in Sinmqyf7Kjwrk Note: VIS IN GYUMRVQ45Rskwo Note: VIS in jyqjmwo09Rdthc Note: VIS-KZGFE60Qoueb Note: VIS-GIVEN Medications albuterol CFC free 90 mcg/inh inhalation aerosol 1, puffs, Inhalation, 4 times a day, PRN, dx: J45.909, # 1 each, Refills 5, Tot. Refills 5, Maintenance, 06/10/21 15:20:00 EDT, Aerosol, Route to Pharmacy Electronically, [id number], [facility]/pharmacy #[id number], 160, cm, 05/20/21 14:1... Start [...] 2 Refills, Maintenance, 07/04/21 9:57:00 EDT, Ointment, [facility]/pharmacy #[id number], instead of Fluocinonide, 1 application [...] 3 Refills, Maintenance, 09/10/20 8:40:00 EDT, Tablet, [facility]/pharmacy #2071, dose change 09/10/20, 165.1, cm, 01/02/20 14:39:00 EST, Height, 54.7, kg, 07/28/19 7:47:00 EDT, Dry Weight Start Date: 09/10/20 Status: OrderedmetFORMIN 500 mg oral tablet 1 tablet = 500 mg, By Mouth, Daily, with meals, # 90 tablet, 3 Refills, Maintenance, 05/15/21 10:18:00 EDT, Tablet, [facility]/pharmacy #2071, 160, cm, 02/13/21 13:46:00 EDT, Height, 54.7, kg, 07/28/19 7:47:00 EDT, Dry Weight Start Date: 05/15/21 Status: Orderedmirtazapine 7.5 mg oral tablet 1 tablet = 7.5 mg, By Mouth, Daily at bedtime, for appetite, # 90 tablet, 3 Refills, Maintenance, 05/15/21 10:16:00 EDT, [facility]/pharmacy #2071, instructions in Libyan, 160, cm, 02/13/21 13:46:00 EDT, Height, 54.7, [...] 9:45:00 EDT, Tablet, [facility], instructions in nepali, 160, cm, 07/04/21 9:33:00 EDT,Height, 54.7, kg, [...] 3 Refills, Soft Stop, 08/18/20 13:37:00 EDT, [facility]/pharmacy #207, 165.1, cm, 01/02/20 14:39:00 EST, Height, 54.7, kg, 07/28/19 7:47:00 EDT, Dry Weight Start Date: 08/18/20 Status: OrderedpredniSONE 10 mg oral tablet 1 tablet = 10 mg, By Mouth, Daily, # 90 tablet, 3 Refills, Maintenance, 12/05/20 10:03:00 EST, [facility]/pharmacy #2071, 160, cm, 12/03/20 9:29:00 EST, Height, 54.7, kg, 07/28/19 7:47:00 EDT, Dry Weight Start Date: 12/05/20 Status: OrderedSingulair 10 mg oral tablet 10 mg, 1, tablet, By Mouth, Daily in PM, # 90 tablet, Refills 3, Tot. Refills 3, Maintenance, 05/15/21 10:17:00 EDT, Route to Pharmacy Electronically, [facility]/pharmacy #207, 160, cm, 02/13/21 13:46:00 EDT, [...] 6 Refills, Maintenance, 04/14/21 10:42:00 EDT, Capsule, [facility]/pharmacy #207, Please put instructions in Libyan, 160, cm,02/13/21 13:46:00 EDT, Height, 54.7, kg, [...] Active 1positive bronchial challenge 2-092x-ray 2013 stable, dypoxsfdwf41332 x-ray, irma9pwcvel 5 ryzaw6Wcgkcq emphysema per pulmo note per -2011 zbpwcqekken7LSL negative 9-28-317coer (lateral basal segment of the left lower lobe), per CT 01-18-2009 done at [facility]9internal and external per 2011 aaoixeqnjfj65kadzkba consult written vjxte58rnc CT from [facility], associated with ureteral stone. mild left oczjchebvdnwvr58gtk CT from [facility] [place] , ER was notified 13not starting meds due to polypharmacy and impdimnnlddag32Iwaxmajj by Pulm in [place], stability on repeat CT Chest Sep 2020 per their jtaq66Xwm 10mm nodule LUNG-RADS 4B 6on 2007 x-uxm95tp 2009 [id number] DEXA: T-score lowest -3.719Rash developed 07/06/13 Social History Social History Type Response Smoking Status Former smoker; Other: per pt ; entered on: 04/21/18 Sex Male
--- OUTSIDE RECORDS SUMMARY | 2022-09-15 20:13 | XMS_ITS | Continuity of Care Document ---
:1945 Demographics Address [address] [place] [address] Mobile Preferred Language es Marital Status Single Restorationist Affiliation Zoroastrianism Race Unknown Ethnic Group or Author Organization [address], [address] [place] [address]- Care Team Providers Name Role Phone Cal PRADO, Luz Simeon Primary Care Physician Encounter [facility] Date(s): 05/20/21 - 05/27/[address], [address] [place], [place] [address] Attending Physician: Not on Staff, Attending MD Referring Physician: Cal PRADO, Luz Simeon [...] Given 1Result Comment: [09/24/2017] [facility] [id number] Note: VIS 7-123Admin Note: VIS given 06/23/11, croatian ojmf9Rwxil Note: VIS GIVEN 07/08/10 lougtpq0Uxctda Comment: [04/02/2016] VIS in Macanese kjgte9Htsla Note: sep 067Admin Note: vis given in Wvmfnhz0Kamui Note: VIS given in Bxqplbe8Wrsem Note: VIS IN TBFGVBI05Imbyd Note: VIS in bymdcif27Bocmc Note: VIS-FONNB28Dntkx Note: VIS-GIVEN Medications acetaminophen 500 mg oral capsule 2 capsule = 1,000 mg, By Mouth, 3 times a day, PRN for pain, not to exceed 3000 mg/day Macanese instructions please, # 120 capsule, 0 Refills, Maintenance, 01/02/20 14:40:00 EST, Capsule, [facility]/pharmacy #2071, 165.1, cm, 12/22/19 10:10:00 EST, Height, 5... Start Date: 01/02/20 Status: Orderedalbuterol CFC free 90 mcg/inh inhalation aerosol 1, puffs, Inhalation, 4 times a day, PRN, # 1 each, Refills 11, Tot. Refills 11, Maintenance, 05/15/21 10:18:00 EDT, Aerosol, Route to Pharmacy Electronically, [id number], [facility]/pharmacy #[id number], 160, cm, 02/13/21 13:46:00 EDT, H... Start Date: 05/15/21 Status: Orderedalbuterol-ipratropium 3 mg-0.5 mg/3 ml inhalation solution 3 mL, Inhalation, 4 times a day, dx asthma J45, # 100 each, 11 Refills, Maintenance, 05/15/21 10:19:00 EDT, Solution, [facility]/pharmacy #2071, 3 mL Inhalation 4 times a day,Instr:dx asthma J45, 160, cm, 02/13/21 13:46:00 EDT, Height, 54.7, kg, 07/28/19 7:4... Start Date: 05/15/21 Status: Orderedbetamethasone topical valerate 0.1% ointment 1 application, Topically, 2 times a day, For severe eczema, # 45 Gm, 2 Refills, Maintenance, 05/15/21 10:19:00 EDT, Ointment, [facility]/pharmacy #2071, instead of Fluocinonide, 1 application Topically 2 times a day,Instr:For severe eczema, 160, cm, 02/13/21... Start Date: 05/15/21 Status: Orderedcalcium (as carbonate)-vitamin D 500 mg-400 intl units oral tablet 1 tablet, By Mouth, 2 times a day, # 60 tablet, 11 Refills, Maintenance, 12/10/20 11:55:00 EST, Tablet, [facility]/pharmacy #2071, Partial fill upon patient request if [...] 3 Refills, Maintenance, 09/10/20 8:40:00 EDT, Tablet, [facility]/pharmacy #2071, dose change 09/10/20, 165.1, cm, 01/02/20 14:39:00 EST, Height, 54.7, kg, 07/28/19 7:47:00 EDT, Dry Weight Start Date: 09/10/20 Status: OrderedmetFORMIN 500 mg oral tablet 1 tablet = 500 mg, By Mouth, Daily, with meals, # 90 tablet, 3 Refills, Maintenance, 05/15/21 10:18:00 EDT, Tablet, [facility]/pharmacy #2071, 160, cm, 02/13/21 13:46:00 EDT, Height, 54.7, kg, 07/28/19 7:47:00 EDT, Dry Weight Start Date: 05/15/21 Status: Orderedmirtazapine 7.5 mg oral tablet 1 tablet = 7.5 mg, By Mouth, Daily at bedtime, for appetite, # 90 tablet, 3 Refills, Maintenance, 05/15/21 10:16:00 EDT, [facility]/pharmacy #2071, instructions in Macanese, 160, cm, 02/13/21 13:46:00 EDT, Height, 54.7, kg, 07/28/19 7:47:00 EDT, Dry Weight Start Date: 05/15/21 Status: Orderedmultivitamin Multiple Vitamins oral capsule 1 capsule, By Mouth, Daily, # 90 capsule, 3 Refills, Maintenance, 05/15/21 10:17:00 EDT, Capsule, [facility]/pharmacy #2071, 1 capsule By Mouth Daily, 160, cm, 02/13/21 13:46:00 EDT, Height, 54.7, kg, 07/28/19 7:47:00 EDT, Dry Weight Start Date: 05/15/21 Status: Orderednabumetone 500 mg oral tablet 1 tablet = 500 mg, By Mouth, 2 times a day, for knee pain, # 60 tablet, 3 Refills, Maintenance, 08/18/20 13:38:00 EDT, Tablet, [facility], instructions in croatian, 165.1, cm, 01/02/20 14:39:00 EST, Height, 54.7, [...] 11 Refills, Maintenance, 11/01/20 11:26:00 EST, Patch, [facility]/pharmacy #207, 165.1, cm, 09/26/20 9:02:00 EDT, Height, 54.7, kg, 07/28/19 7:47:00 EDT, Dry Weight Start Date: 11/01/20 Stop Date: 10/27/21 Status: Orderedomeprazole 20 mg oral enteric coated capsule 1 capsule = 20 mg, By Mouth, Daily, # 90 capsule, 3 Refills, Soft Stop, 08/18/20 13:37:00 EDT, [facility]/pharmacy #207, 165.1, cm, 01/02/20 14:39:00 EST, Height, 54.7, kg, 07/28/19 7:47:00 EDT, Dry Weight Start Date: 08/18/20 Status: OrderedpredniSONE 10 mg oral tablet 1 tablet = 10 mg, By Mouth, Daily, # 90 tablet, 3 Refills, Maintenance, 12/05/20 10:03:00 EST, [facility]/pharmacy #2071, 160, cm, 12/03/20 9:29:00 EST, Height, 54.7, kg, 07/28/19 7:47:00 EDT, Dry Weight Start Date: 12/05/20 Status: OrderedSingulair 10 mg oral tablet 10 mg, 1, tablet, By Mouth, Daily in PM, # 90 tablet, Refills 3, Tot. Refills 3, Maintenance, 05/15/21 10:17:00 EDT, Route to Pharmacy Electronically, [facility]/pharmacy #207, 160, cm, 02/13/21 13:46:00 EDT, Height, [...] 6 Refills, Maintenance, 04/14/21 10:42:00 EDT, Capsule, [facility]/pharmacy #2071, Please put instructions in Macanese, 160, cm,02/13/21 [...] Active 1positive bronchial challenge 2-092x-ray 2013 stable, juxhfphjzx52140 x-ray, ydik4evgdxl 5 zwjvc3Tmgzky emphysema per pulmo note per -2011 kydrvyvdgey4KKY negative 7-92-121uufx (lateral basal segment of the left lower lobe), per CT 01-18-2009 done at [facility]9internal and external per 2011 gmdfekezlet79wnicsjc consult written rgcro93tdn CT from [facility], associated with ureteral stone. mild left oxpqiomwjzhwsi17een CT from [facility] , ER was notified 13not starting meds due to polypharmacy and opqxkbbxtqbgo29Iqmkhlob by Pulm in [place], stability on repeat CT Chest Sep 2020 per their fgle46Ugj 10mm nodule LUNG-RADS 4B 6on 2007 x-izt45tk 2009 [id number] DEXA: T-score lowest -3.719Rash developed 07/06/13 Vital Signs Most recent to oldest [Reference Range]: 1 Height 160 cm (05/20/21 2:12 PM) Weight 49.3 kg (05/20/21 2:12 PM) Body Mass Index [18.5-24.99] 19.26 (05/20/21 2:12 PM) Social History Social History Type Response Smoking Status Former smoker; Other: per pt ; entered on: 04/21/18 Sex Male
--- OUTSIDE RECORDS SUMMARY | 2022-09-15 20:13 | XMS_ITS | Continuity of Care Document ---
:1945 Demographics Address [address] [place] [address] Mobile Preferred Language es Marital Status Single Yazdanism Affiliation Nondenominational Race White Ethnic Group or Author Organization [facility] Address [address] [place] [address]- Care Team Providers Name Role Phone Cal PRADO, Luz Simeon Primary Care Physician [facility] Date[facility] 02[facility]13[facility]21 - 03/15/21 [facility] Medicine [address] [place] [address]- Attending Physician: Latasha Dumont Admitting Physician: AdmLatasha [place] Referring Physician: Admtr, ArFarhad Allergies, Adverse Reactions, Alerts Substance Reaction [...] (oldterm)12 10/08/06 Given 1Result Comment: [09/24/2017] [facility] [id number] Note: VIS 7-123Admin Note: VIS given 06/23/11, tuvaluan cwlj1Nwdlp Note: VIS GIVEN 07/08/10 izvlznx1Xlzicz Comment: [04/02/2016] VIS in Persian vtkun0Idmwd Note: sep 067Admin Note: vis given in Dhcegvv6Hftly Note: VIS given in Tyyxpsz5Qshju Note: VIS IN CJKXEEY44Ksagx Note: VIS in axhqhka46Isjyt Note: VIS-IHRLS50Htieg Note: VIS-GIVEN Medications acetaminophen 500 mg oral capsule 2 capsule = 1,000 mg, By Mouth, 3 times a day, PRN for pain, not to exceed 3000 mg/day Persian instructions please, # 120 capsule, 0 Refills, Maintenance, 01/02/20 14:40:00 EST, Capsule, [facility]/pharmacy #2071, 165.1, cm, 12/22/19 10:10:00 EST, Height, 5... Start Date: 01/02/20 Status: Orderedalbuterol CFC free 90 mcg/inh inhalation aerosol 1, puffs, Inhalation, 4 times a day, PRN, # 1 each, Refills 11, Tot. Refills 11, Maintenance, 04/08/20 10:06:00 EDT, Aerosol, Route to Pharmacy Electronically, [id number], [facility]/pharmacy #2071, 165.1, cm, 01/02/20 [...] 3 Refills, Maintenance, 09/10/20 8:40:00 EDT, Tablet, [facility]/pharmacy #2071, dose change 09/10/20, 165.1, cm, 01/02/20 14:39:00 EST, Height, 54.7, kg, 07/28/19 7:47:00 EDT, Dry Weight Start Date: 09/10/20 Status: OrderedmetFORMIN 500 mg oral tablet 1 tablet = 500 mg, By Mouth, Daily, with meals, # 30 tablet, 11 Refills, Maintenance, 03/21/20 8:36:00 EDT, Tablet, [facility]/pharmacy #2071, 165.1, cm, 01/02/20 14:39:00 EST, Height, 54.7, kg, 07/28/19 7:47:00 EDT, Dry Weight Start Date: 03/21/20 Status: Orderedmirtazapine 7.5 mg oral tablet 1 tablet = 7.5 mg, By Mouth, Daily at bedtime, for appetite, # 30 tablet, 11 Refills, Maintenance, 12/22/19 10:17:00 EST, [facility], instructions in Persian, 165.1, cm, 12/22/19 10:10:00 EST, Height, 54.7, [...] 13:38:00 EDT, Tablet, [facility], instructions in tuvaluan, 165.1, cm, 01/02/20 14:39:00 EST, Height, 54.7, [...] 11 Refills, Maintenance, 11/01/20 11:26:00 EST, Patch, [facility]/pharmacy #2070, 165.1, cm, 09/26/20 9:02:00 EDT, Height, 54.7, kg, 07/28/19 7:47:00 EDT, Dry Weight Start Date: 11/01/20 Stop Date: 10/27/21 Status: Orderedomeprazole 20 mg oral enteric coated capsule 1 capsule = 20 mg, By Mouth, Daily, # 90 capsule, 3 Refills, Soft Stop, 08/18/20 13:37:00 EDT, [facility]/pharmacy #2070, 165.1, cm, 01/02/20 14:39:00 EST, Height, 54.7, kg, 07/28/19 7:47:00 EDT, Dry Weight Start Date: 08/18/20 Status: OrderedpredniSONE 10 mg oral tablet 1 tablet = 10 mg, By Mouth, Daily, # 90 tablet, 3 Refills, Maintenance, 12/05/20 10:03:00 EST, [facility]/pharmacy #2070, 160, cm, 12/03/20 9:29:00 EST, [...] 12/22/19 10:33:00 EST, Route to Pharmacy Electronically, [facility]/pharmacy #2070, 165.1, cm, 12/22/19 10:10:00 EST, [...] Active 1positive bronchial challenge 2-092x-ray 2013 stable, edzdbcyzvn45518 x-ray, ethp0omwcro 5 sfspz6Fewwkp emphysema per pulmo note per -2011 oqofucbpeeg2BFR negative 7-80-449ilrb (lateral basal segment of the left lower lobe), per CT 01-18-2009 done at [facility]9internal and external per 2011 bccwjlhqude99qlfgyoc consult written ultcc98hfv CT from [facility], associated with ureteral stone. mild left gzcvvvlxcqryzi02snu CT from [facility] , ER was notified 13not starting meds due to polypharmacy and ozgzdoiywpzkl95Wkwofkvr by Pulm in [place], stability on repeat CT Chest Sep 2020 per their iucc26Udq 10mm nodule LUNG-RADS 4B 6on 2007 x-dmy78dj 2009 [id number] DEXA: T-score lowest -3.719Rash developed 07/06/13 Social History Social History Type Response Smoking Status Former smoker; Other: per pt ; entered on: 04/21/18 Sex Male
--- OUTSIDE RECORDS SUMMARY | 2022-09-15 20:13 | XMS_ITS | Continuity of Care Document ---
:1945 Demographics Address [address] [place] [address] Mobile Preferred Language es Marital Status Single Druze Affiliation Shinto Race White Ethnic Group or Author Organization [facility] Address [address] [place] [address], [address] [place] [address]- Care Team Providers Name Role Phone Cal PRADO, Luz Simeon Primary Care Physician [facility] - 02/22/20 [facility] [address] [place] [address], [address] [place] [address]- [facility] Attending Physician: Rhea DUNLAP, Chanell Rosen Allergies, Adverse Reactions, Alerts Substance Reaction Severity [...] [09/24/2017] [facility] [id number] Note: VIS 7-123Admin Note: VIS given 06/23/11, colombian lzcc4Vdyzk Note: VIS GIVEN 07/08/10 nbubyzh8Rbhnzv Comment: [04/02/2016] VIS in Mosotho dgygz5Wpwkc Note: sep 067Admin Note: vis given in Qpniqzj0Zxxrt Note: VIS given in Goyyntt2Nsjit Note: VIS IN AFKBXML74Eouew Note: VIS in jqxjaec83Hywap Note: VIS-FKDEX77Fkxmt Note: VIS-GIVEN Medications Accu-Chek Compact 17-Strip Drum [...] for pain, not to exceed 3000 mg/day Mosotho instructions please, # 120 capsule, 0 Refills, [...] Maintenance, 01/03/19 8:46:30 EST, Cream, instructions in Mozambican please, 1 application Topically 2 times a [...] 5 Refills, Maintenance, 12/22/19 10:21:00 EST, Cream, [facility]/pharmacy #2071, 1 application Topically 2 times [...] tablet, 11 Refills, Maintenance, 12/22/19 10:17:00 EST, [facility]/pharmacy #2071, instructions in Mosotho, 165.1, cm, 12/22/19 10:10:00 EST, Height, 54.7, kg, 07/28/19 7:47:00 EDT, Dry Weight Start Date: 12/22/19 Status: Orderedmultivitamin Multiple Vitamins oral capsule 1 capsule, By Mouth, Daily, # 90 capsule, 3 Refills, Maintenance, 12/22/19 10:33:00 EST, Capsule, [facility]/pharmacy #2071, 1 capsule By Mouth Daily, 165.1, cm, 12/22/19 10:10:00 EST, Height, 54.7, kg, 07/28/19 7:47:00 EDT, Dry Weight Start Date: 12/22/19 Status: Orderednabumetone 500 mg oral tablet 1 tablet = 500 mg, By Mouth, 2 times a day, for knee pain, # 60 tablet, 3 Refills, Maintenance, 08/02/19 11:35:19 EDT, Tablet, instructions in colombian Start Date: 08/02/19 Status: OrderedNebulizer/Compressor See Instructions, # 1 each, Maintenance, D: COPD severe, Gold Ct 4 For use PRN Q4hr for shortness ofbreath, 12/22/19 10:19:00 EST, Compound Start Date: 12/22/19 Status: Orderedomeprazole 20 mg oral enteric coated capsule 1 capsule = 20 mg, By Mouth, Daily, # 90 capsule, 3 Refills, Soft Stop, 12/22/19 10:33:00 EST, [facility]/pharmacy #2071, 165.1, cm, 12/22/19 10:10:00 EST, [...] 12/22/19 10:33:00 EST, Route to Pharmacy Electronically, [facility]/pharmacy #2071, 165.1, cm, 12/22/19 10:10:00 EST, [...] Active 1positive bronchial challenge 2-2x-ray 2013 stable, jsylosmuti56340 x-ray, smor4xjbbhm 5 wiyhx3Enwjep emphysema per pulmo note per hbaldytkaqf8QQM negative 7-44-011hpxk (lateral basal segment of the left lower lobe), per CT 01-18-2009 done at [facility]9internal and external per 2011 jxgfhmdgbdp57njuvtew consult written keyca38xwp CT from [facility], associated with ureteral stone. mild left xsfpzfjdedxlhb82gxq CT from [facility] , ER was notified 13not starting meds due to polypharmacy and lejylcbassxeg00Zhj 10mm nodule LUNG-RADS 4B 5on 2007 x-lxs60kd 2009 [id number] DEXA: T-score lowest -3.718Rash developed 07/06/13 Social History Social History Type Response Smoking Status Former smoker; Other: per pt ; entered on: 04/21/18 Sex Male
--- OUTSIDE RECORDS SUMMARY | 2022-09-15 20:13 | XMS_ITS | Continuity of Care Document ---
:1945 Demographics Address [address] [place] [address] Mobile Preferred Language es Marital Status Single Pentecostalism Affiliation Mormon Race Unknown Ethnic Group or Author Organization [facility] Address [address] [place] [address]- Care Team Providers Name Role Phone Cal PRADO, Luz Simeon Primary Care Physician [facility] - 01/18/20 [facility] [address] [place] [address]- [facility] Attending Physician: Sharona Pedroza NP Admitting Physician: Sharona Pedroza NP Allergies, Adverse Reactions, [...] (oldterm)12 10/08/06 Given 1Result Comment: [09/24/2017] [facility] [id number] Note: VIS 7-123Admin Note: VIS given 06/23/11, nigerien avms8Ssapz Note: VIS GIVEN 07/08/10 uamuccl7Curoow Comment: [04/02/2016] VIS in Nicaraguan xvpot3Aeykj Note: sep 067Admin Note: vis given in Yzfnlbg3Ogipd Note: VIS given in Utstzqa9Ujytn Note: VIS IN MFAWFQT62Gggui Note: VIS in djueevd76Lbkwz Note: VIS-SWXAF39Gwcym Note: VIS-GIVEN Medications Accu-Chek Compact 17-Strip Drum [...] for pain, not to exceed 3000 mg/day Nicaraguan instructions please, # 120 capsule, 0 Refills, [...] Maintenance, 01/03/19 8:46:30 EST, Cream, instructions in Nepali please, 1 application Topically 2 times a [...] tablet, 11 Refills, Maintenance, 12/22/19 10:17:00 EST, [facility]/pharmacy #2071, instructions in Nicaraguan, 165.1, cm, 12/22/19 10:10:00 EST, Height, 54.7, kg, 07/28/19 7:47:00 EDT, Dry Weight Start Date: 12/22/19 Status: Orderedmultivitamin Multiple Vitamins oral capsule 1 capsule, By Mouth, Daily, # 90 capsule, 3 Refills, Maintenance, 12/22/19 10:33:00 EST, Capsule, [facility]/pharmacy #2071, 1 capsule By Mouth Daily, 165.1, cm, 12/22/19 10:10:00 EST, Height, 54.7, kg, 07/28/19 7:47:00 EDT, Dry Weight Start Date: 12/22/19 Status: Orderednabumetone 500 mg oral tablet 1 tablet = 500 mg, By Mouth, 2 times a day, for knee pain, # 60 tablet, 3 Refills, Maintenance, 08/02/19 11:35:19 EDT, Tablet, instructions in nigerien Start Date: 08/02/19 Status: OrderedNebulizer/Compressor See Instructions, # 1 each, Maintenance, D: COPD severe, Gold Ct 4 For use PRN Q4hr for shortness ofbreath, 12/22/19 10:19:00 EST, Compound Start Date: 12/22/19 Status: Orderedomeprazole 20 mg oral enteric coated capsule 1 capsule = 20 mg, By Mouth, Daily, # 90 capsule, 3 Refills, Soft Stop, 12/22/19 10:33:00 EST, [facility]/pharmacy #2071, 165.1, cm, 12/22/19 10:10:00 [...] 05/2012 Active Granuloma(Confirmed)7, 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 mild left wbvyesidabswhs31dpx CT from [facility] , ER was notified 13not starting meds due to polypharmacy and ygyjzkwhqezci33Icf 10mm nodule LUNG-RADS 4B 5on 2007 x-idj31mt 2009 [id number] DEXA: T-score lowest -3.718Rash developed 07/06/13 Social History Social History Type Response Smoking Status Former smoker; Other: per pt ; entered on: 04/21/18 Sex Male
--- OUTSIDE RECORDS SUMMARY | 2022-09-15 20:13 | XMS_ITS | Continuity of Care Document ---
:1945 Demographics Address [address] [place] [address] Mobile Preferred Language spa Marital Status Single Yazidi Affiliation Orthodox Race Unknown Ethnic Group or Author Organization [facility] Address [address] [place] [phone]- Care Team Providers Name Role Phone Cal PRADO, Luz Simeon Primary Care Physician [facility]): [facility]22 - 07/05/22 [facility] [address] [place] [id number]- Attending Physician: Latasha Dumont Admitting Physician: Latasha [...] [09/24/2017] [facility] [id number] Note: VIS 7-123Admin Note: VIS given 06/23/11, faroese sfpb5Unxog Note: VIS GIVEN 07/08/10 vcpozna7Pmsgcr Comment: [04/02/2016] VIS in Gambian zpdwe1Iqbgx Note: sep 067Admin Note: vis given in Gcbbtrb8Ajlvq Note: VIS given in Akegbii5Qbqdg Note: VIS IN OUEBOIW66Bclwq Note: VIS in wquoavh64Hwnhg Note: VIS-SOOEY24Daihp Note: VIS-GIVEN Medications 3cc Leur-Stephanie syringe, 22 [...] 15:20:00 EDT, Aerosol, Route to Pharmacy Electronically, [id number], [facility]/pharmacy #[id number], 160, cm, 05/20/21 14:1... Start Date: 06/10/21 Status: Orderedalbuterol-ipratropium 3 mg-0.5 mg/3 ml inhalation solution 1 vials, Inhalation, 4 times a day, # 270 mL, 11 Refills, [id number], 23, USE 1 VIAL VIA NEBULIZER 4 TIMES A DAY, 160, cm, 06/11/22 14:31:00 EDT, Height Start Date: 06/17/22 Status: Orderedbetamethasone topical valerate 0.1% ointment 1 application, Topically, 2 times a day, For severe eczema, # 45 Gm, 11 Refills, Maintenance, 10/29/21 9:52:00 EST, Ointment, [facility]/pharmacy #[id number], instead of Fluocinonide, 1 application Topically 2 times a day,Instr:For severe eczema, 160, cm, 10/29/21... Start Date: 10/29/21 Status: Orderedcalcium (as carbonate)-vitamin D 500 mg-400 intl units oral tablet 1 tablet, By Mouth, 2 times a day, # 60 tablet, 11 Refills, Maintenance, 12/10/20 11:55:00 EST, Tablet, [facility]/pharmacy #[id number], Partial fill upon patient request if the prescription is for a schedule II opioid drug., 1 tablet By Mouth 2 times a day, 160,... Start Date: 12/10/20 Status: OrderedDaliresp 500 mcg oral tablet 1 tablet = 500 mcg, By Mouth, Daily, for COPD, # 90 tablet, 3 Refills, Maintenance, 02/13/21 13:50:00 EDT, [facility]/pharmacy #[id number], 160, cm, 02/13/21 12:53:00 EDT, Height, 54.7, kg, 07/28/19 7:47:00 EDT, Dry Weight Start Date: 02/13/21 Status: Orderedduloxetine 30 mg oral enteric coated capsule 1 capsule = 30 mg, By Mouth, Daily, do not crush or chew. FOR CHRONIC PAIN, # 30 capsule, 5 Refills,Maintenance, 01/05/22 15:24:00 EST, CR Capsule, [facility]/pharmacy #[id number], Partial fill upon patient request if [...] Refills, Maintenance, 04/29/22 11:58:00 EDT, Tablet, [facility]/pharmacy #[id number], dose change 09/10/20, 160, cm, 04/29/22 11:20:00 EDT, Height Start Date: 04/29/22 Status: OrderedmetFORMIN 500 mg oral tablet 1 tablet = 500 mg, By Mouth, Daily, with meals, # 90 tablet, 3 Refills, Maintenance, 05/15/21 10:18:00 EDT, Tablet, [facility]/pharmacy #[id number], 160, cm, 02/13/21 13:46:00 EDT, Height, 54.7, kg, 07/28/19 7:47:00 EDT, Dry Weight Start Date: 05/15/21 Status: Orderedmirtazapine 7.5 mg oral tablet See Instructions, TOME NAZ TABLETA POR VIA ORAL AL ACOSTARSE, # 90 tablet, 3 Refills, [id number], 160, cm, 04/29/22 11:20:00 EDT, Height Start [...] 2 Refills, Maintenance, 01/01/22 12:39:00 EST, Tablet, [facility], instructions in faroese, 160, cm, 01/01/22 10:25:00 EST, Height Start [...] 11 Refills, Maintenance, 11/01/20 11:26:00 EST, Patch, [facility]/pharmacy #[id number], 165.1, cm, 09/26/20 9:02:00 EDT, Height, [...] OrderedpredniSONE 10 mg oral tablet TOME NAZ ROWELL LOS Regla Start Date: 08/22/21 Status: OrderedSingulair 10 mg oral tablet 10 mg, 1, tablet, By Mouth, Daily in PM, # 90 tablet, Refills 3, Tot. Refills 3, Maintenance, 05/15/21 10:17:00 EDT, Route to Pharmacy Electronically, [facility]/pharmacy #[id number], 160, cm, 02/13/21 13:46:00 EDT, Height, 54.7, kg, 07/28/19 7:47:00 EDT, Dry Weight Start Date: 05/15/21 Status: OrderedTestosterone Cypionate 200 mg/mL intramuscular solution See Instructions, INJECT 0.5 (HALF) ML INTRAMUSCULARLY EVERY 14 DAYS, # 2 mL, 5 Refills, Maintenance, 05/18/22 9:43:00 EDT, [facility]/pharmacy #207, 160, cm, 04/29/22 11:20:00 EDT, Height [...] Refills, Maintenance, 08/22/21 11:46:00 EDT, Powder, [facility]/pharmacy #[id number], Partial fill upon patient request if theprescription is for a schedule II opioid drug., 1... Start Date: 08/22/21 Status: OrderedVitamin D3 5000 intl units oral capsule 1 capsule = 5,000 International_Units, By Mouth, Daily, with food, # 30 capsule, 6 Refills, Maintenance, 04/14/21 10:42:00 EDT, Capsule, [facility]/pharmacy #[id number], Please put instructions in Gambian, 160, cm,02/13/21 13:46:00 EDT, Height, 54.7, kg, [...] Active 1positive bronchial challenge 2-092x-ray 2013 stable, [id number] x-ray, oxza3elronr 5 abtyu0Kxftti emphysema per pulmo note per prpkeuzfekb8DDX negative 1-97-049upca (lateral basal segment of the left lower lobe), per CT 01-18-2009 done at [facility]9internal and external per 2011 wekbmjsanmu53mwlsxcw consult written mtroc17pfb CT from [facility], associated with ureteral stone. mild left grbfhxbyvyektz57Knpick stone Oct 2021, seeing wvfeafw98cji CT from [facility] , ER was notified 14not starting meds due to polypharmacy and jkhcppxmftsjh45Isrtsixm by Pulm in [place], stability on repeat CT Chest Sep 2020 per their ignc14Toq 10mm nodule LUNG-RADS 4B 09/20/1917Followed by Melany Payne18on 2007 [id number] 2009 [id number] DEXA: T-score lowest -3.721Rash developed 07/06/13 Social History Social History Type Response Smoking Status Former smoker; Other: per pt ; entered on: 04/21/18 Sex Male
--- OUTSIDE RECORDS SUMMARY | 2022-09-15 20:13 | XMS_ITS | Continuity of Care Document ---
:1945 Demographics Address [address] [place] [address] Mobile Preferred Language es Marital Status Single Catholic Affiliation Hinduism Race Unknown Ethnic Group or Author Organization [facility] Address [address] [place] [phone]- Care Team Providers Name Role Phone Cal PRADO, Luz Simeon Primary Care Physician [facility]): 01[facility]20 - 01/12/20 [facility] [address] [place] [phone]- [facility] Attending Physician: Latasha Dumont Admitting Physician: Latasha [...] Comment: [09/24/2017] [facility] [phone] Note: VIS 7-123Admin Note: VIS given 06/23/11, syrian fien0Uunyw Note: VIS GIVEN 07/08/10 hvkocjr1Lteevn Comment: [04/02/2016] VIS in Fijian urolu1Dttsl Note: sep 067Admin Note: vis given in Mgspahg5Imtqc Note: VIS given in Onsoulg9Tpfvr Note: VIS IN TKASZYJ05Rvibr Note: VIS in xamuynt20Yttrp Note: VIS-KXZKL43Fdlfa Note: VIS-GIVEN Medications Accu-Chek Compact 17-Strip Drum [...] Maintenance, 01/03/19 8:46:30 EST, Cream, instructions in Urdu please, 1 application Topically 2 times a [...] 5 Refills, Maintenance, 12/22/19 10:21:00 EST, Cream, [facility]/pharmacy #[id number], 1 application Topically 2 times [...] tablet, 11 Refills, Maintenance, 12/22/19 10:17:00 EST, [facility]/pharmacy #[id number], instructions in Fijian, 165.1, cm, 12/22/19 10:10:00 EST, Height, 54.7, kg, 07/28/19 7:47:00 EDT, Dry Weight Start Date: 12/22/19 Status: Orderedmultivitamin Multiple Vitamins oral capsule 1 capsule, By Mouth, Daily, # 90 capsule, 3 Refills, Maintenance, 12/22/19 10:33:00 EST, Capsule, [facility]/pharmacy #[id number], 1 capsule By Mouth Daily, 165.1, cm, 12/22/19 10:10:00 EST, Height, 54.7, kg, 07/28/19 7:47:00 EDT, Dry Weight Start Date: 12/22/19 Status: Orderednabumetone 500 mg oral tablet 1 tablet = 500 mg, By Mouth, 2 times a day, for knee pain, # 60 tablet, 3 Refills, Maintenance, 08/02/19 11:35:19 EDT, Tablet, instructions in syrian Start Date: 08/02/19 Status: OrderedNebulizer/Compressor See Instructions, # 1 each, Maintenance, D: COPD severe, Gold Ct 4 For use PRN Q4hr for shortness ofbreath, 12/22/19 10:19:00 EST, Compound Start Date: 12/22/19 Status: Orderedomeprazole 20 mg oral enteric coated capsule 1 capsule = 20 mg, By Mouth, Daily, # 90 capsule, 3 Refills, Soft Stop, 12/22/19 10:33:00 EST, [facility]/pharmacy #[id number], 165.1, cm, 12/22/19 10:10:00 EST, [...] 12/22/19 10:33:00 EST, Route to Pharmacy Electronically, [facility]/pharmacy #[id number], 165.1, cm, 12/22/19 10:10:00 EST, [...] Active 1positive bronchial challenge 2-092x-ray 2013 stable, [id number] x-ray, pfcq1llnyaj 5 zbntr5Jkypnz emphysema per pulmo note per rkaydeemkdf8PDH negative 9-27-445wqap (lateral basal segment of the left lower lobe), per CT 01-18-2009 done at [facility]9internal and external per 2011 zyyrkkunaqm37yqanlbp consult written mapjg93wbe CT from [facility], associated with ureteral stone. mild left bsxesnmwhrxhcz83jmj CT from [facility] , ER was notified 13not starting meds due to polypharmacy and gydretiqpzpjv11Ulv 10mm nodule LUNG-RADS 4B 5on 2007 x-imx47qi 2009 [id number] DEXA: T-score lowest -3.718Rash developed 07/06/13 Social History Social History Type Response Smoking Status Former smoker; Other: per pt ; entered on: 04/21/18 Sex Male
[2022-09-15 20:19] LABS: COVID-19 Test Negative (Negative)
[2022-09-15] MEDS: Magnesium Sulfate/H2O 2 GM/50 ML PIGGYBACK IV (20:31)
[2022-09-15] MEDS: methylPREDNISolone Sod Succ 125 MG/2 ML VIAL IVPUSH (20:31)
[2022-09-15 20:37] LABS: MANUAL DIFF FLAG NO
[2022-09-15 20:38] LABS: Basophils Percent Auto 0.2 % (0-2); Hemoglobin 10.7 g/dl (14.0-18.0); Imm Gran Abs Auto 0.06 X10*3/uL (0.00-0.03); Imm Gran Pct Auto 0.7 % (0.0-0.4); Lymphocytes Absolute Auto 0.7 X10*3/uL (1.2-4.9); Lymphocytes Percent Auto 8.2 % (20-40); Mean Corpuscular HGB Conc 29.7 g/dl (31.0-36.0); Mean Corpuscular Hemoglobin 23.5 pg (27.0-33.0); Mean Corpuscular Volume 79.1 fL (80.0-98.0); Mean Platelet Volume 9.6 fL (9.4-12.4); Monocytes Absolute Auto 0.4 X10*3/uL (0.1-1.2); Monocytes Percent Auto 4.9 % (2-11); Neutrophils Absolute Auto 7.4 x10*3/uL (2.0-8.3); Platelet Count 345 X10*3/uL (160-400); Red Blood Count 4.55 X10*6/uL (4.60-5.80); Red Cell Distribution Width 19.1 % (11.0-16.0); White Blood Count 8.6 X10*3/uL (4.8-10.8)
[2022-09-15 20:44] LABS: Prothrombin Time 11.3 SEC (10.0-13.1)
[2022-09-15 20:47] LABS: Partial Thromboplastin Time 31.7 SEC (26.0-36.4)
[2022-09-15 20:55] LABS: Alanine Aminotransferase 12 U/L (0-40); Albumin Level 3.9 g/dL (3.5-5.0); Alkaline Phosphatase 94 U/L (39-117); Anion Gap 16 (12-20); Aspartate Amino Transferase 14 U/L (5-37); Bilirubin Total 0.4 mg/dL (0.0-1.0); Blood Urea Nitrogen 9 mg/dL (9-16); Calcium 9.2 mg/dL (8.4-10.2); Carbon Dioxide 28 mmol/L (22-29); Chloride 100 mmol/L (96-108); Creatinine Clr Calc Pharmacy 61.5; Estimated Glomerular Filt Rate > 60; Glucose Random 133 mg/dL (60-115); Potassium 4.3 mmol/L (3.3-5.1); Sodium 140 mmol/L (135-145); Total Protein 6.5 g/dL (6.5-8.0)
[2022-09-15 20:59] LABS: Lactic Acid 2.1 mmol/L (0.5-2.0)
[2022-09-15 21:00] LABS: B Type Natriuretic Peptide 19 pg/mL (<100); Troponin-I High Sensitivity 3.6 ng/L (<3.5-35.0)
[2022-09-15 22:18] VITALS: BP 142/61; PULSE 93; RESP 19; TEMP 36.2; O2SAT 92
[2022-09-15 22:34] LABS: Reflex Lactate? Lactic Acid Added
[2022-09-15] MEDS: levoFLOXacin/D5W 750 MG/150 ML PIGGYBACK 100 MG IV (22:45)
--- NOTE | 2022-09-15 22:47 | ED.GENADULT ---
HPI - General Adult General Chief complaint: Upper Respiratory Symptoms Stated complaint: asthma, difficulty breathing Time Seen by Provider: 09/15/22 20:05 Source: patient Mode of arrival: ambulatory Limitations: no limitations History of Present Illness HPI narrative: 76 yold male with pmh of COPD, Asthma presents to the ED for shortness of breath and wheezing since yesterday. Patient coming to the ED in distress wiht tracheal tugging and accessory muscle use of chest/abdomen. NEgative for any swelling of legs or calf pain Related Data Home Medications Medication Instructions Recorded Confirmed metformin 500 mg tablet 500 mg PO DAILY 09/28/20 08/28/22 levothyroxine 112 mcg tablet 112 mcg PO DAILY@0600 12/01/20 08/28/22 omeprazole 20 mg capsule,delayed 20 mg PO DAILY@62912/01/20 08/28/22 release ipratropium 0.5 mg-albuterol 3 mg 1 vial inhalation QID PRN asthma 08/06/21 08/28/22 (2.5 mg base)/3 mL nebulization soln mirtazapine 7.5 mg tablet 7.5 mg PO BEDTIME PRN Sleep 11/16/21 08/28/22 duloxetine 30 mg capsule,delayed 1 cap PO DAILY 01/29/22 08/28/22 release nabumetone 500 mg tablet 1 tab PO BID PRN knee pain 01/29/22 08/28/22 montelukast 10 mg tablet 1 tab PO BEDTIME 05/28/22 08/28/22 fluticasone fur. 200 mcg-umeclid 1 puff inhalation DAILY 08/28/22 08/28/22 62.5 mcg-vilant 25 mcg inhalat.powder (Trelegy Ellipta) multivitamin with folic acid 400 1 tab PO DAILY 08/28/22 08/28/22 mcg tablet (Daily-Leslie (with folic acid)) Previous Rx's Medication Instructions Recorded Ventolin HFA 90 mcg/actuation 2 puff PO Q6H PRN shortness of 03/03/22 aerosol inhaler (albuterol sulfate) breath or wheezing #18 ea theophylline 400 mg 400 mg PO DAILY #30 tabs 05/04/22 tablet,extended release 24 hr pyridoxine (vitamin B6) 100 mg 100 mg PO DAILY 90 days #90 tabs 09/07/22 tablet cefuroxime axetil 500 mg tablet 500 mg PO BID 7 days #14 tabs 09/01/22 prednisone 10 mg tablet See Rx Instructions .Route 09/01/22 .COMPLEX #45 tabs Allergies Allergy/AdvReac Type Severity Reaction Status Date / Time shellfish derived Allergy Severe ANAPHYLAXIS Verified 08/04/22 15:20 [SHELLFISH DERIVED] pollen extracts [POLLEN] Allergy Intermediate RUNNING Verified 08/04/22 15:20 NOSE, WATERY EYES, SNEEZING varenicline [VARENICLINE] AdvReac Unknown PALPITATION Verified 08/04/22 15:20 S Review of Systems Review of Systems: Wheezing and shortness of breath Yes all other systems are reviewed and are negative [facility] Past Medical History Medical History Abnormal PET scan of colon Asthma Chronic respiratory failure COPD (chronic obstructive pulmonary disease) Diabetes GERD (gastroesophageal reflux disease) Hypertension Hypothyroidism Osteoarthritis Osteoporosis Oxygen dependent Sepsis Tobacco dependence Ureteral calculi Surgical History History of appendectomy History of cataract surgery (~2011) History of lithotripsy (~2008) History of lung biopsy (~2021) Family History Family History Father Throat cancer Brother Lung cancer Other Hypertension Social History Social History Household Members: Spouse Housing: Apartment Are you a primary managed care liaison to a significant other at home: No Do you presently have visiting nurse or other home services: No Alcohol intake: unknown Patient Tobacco Use Status: Current everyday Tobacco user Tobacco use type: Cigarette Cigarette Packs Per Day: 0.5 Cigarettes Per Day: 8 Years Smoked: 60 e-Cigarette/Vaping Use: Currently Using Second Hand Smoke Exposure: No Advance Directives: No Advance Directives Information Provided: Yes Advance Directives Date on File: 12/18/20 service: No Current occupational status: unemployed and retired Physical Exam ED Vital Signs: Vital Signs - 24 hr 09/15/22 19:50 09/15/22 20:13 09/15/22 22:18 Temperature 98.5 F 97.1 F Pulse Rate 115 H 89 93 Respiratory Rate 24 H 28 H 19 Blood Pressure 171/144 H 142/61 H Pulse Oximetry 97 92 Oxygen Delivery Method Room Air Room Air BMI result Body Mass Index 20.0 Const General: cooperative and acute distress Orientation/consciousness: patient oriented x3 [facility] Head: Yes normal to inspection, Yes No palpable skull fracture present, Yes normocephalic, Yes atraumatic and No abrasion Eyes General: appearance normal, both eyes and all related structures Neck Neck: Yes normal visual inspection, Yes full ROM, Yes no lymphadenopathy, Yes no meningeal signs, Yes trachea midline, Yes supple, No anterior neck swelling and No tender Chest Chest palpation & inspection: normal inspection of the chest and normal palpation of entire chest wall Resp Other: unable to speak in full sentences Effort & Inspection: normal respiratory effort Auscultation: wheezes expiratory wheezes and throughout Cardio Jugular venous distension: no JVD Heart sounds: S1 normal heart sound present and S2 normal heart sound present GI Inspection: Yes normal to inspection and No abdominal wall ecchymosis Palpation (GI): Soft to palpation, not firm, nontender, no guarding and not rigid General: No CVA tenderness and Yes no CVA tenderness Back/Spine/Pelvis Back: no CVA tenderness and No CVA tenderness Skin General skin exam: no rashes or lesions noted and elasticity normal Neuro General: patient oriented x3, gait normal, tone normal, no meningeal signs and CN's II-XI intact bilaterally Cranial nerves: Yes CN's II-XII intact bilaterally Extrem Other: Lower extremities negative for swelling, pitting adithya, or calf tenderness. General: Yes normal to inspection and Yes full ROM Psych Appearance: grossly normal, well kempt and not disheveled Course Course Course Narrative: Patient in respiratory distress. Patient has tracheal tugging and using accessory muscle of the chest abdomen with profuse bleeding throughout. Albuterol, Solu-Medrol magnesium ordered. EKG troponin BNP ordered. Reevaluation(s) Reevaluation #1: EKG negative STEMI. Two troponins negative. BNP negative. Chest x-ray normal. First lactic positive. Patient feels better after treatment. Patient admitted to the hospital for COPD exacerbation. Hospitalist except the case. Patient still have wheezing but no longer has tracheal tugging or accessory muscle use. Patient now speaking in full sentences. Patient still has wheezing Time: 00:03 Medical Decision Making [facility] Narrative Medical decision making narrative: COPD exacerbation Lab Data Result diagrams: 10/18/22 20:30 09/15/22 20:30 Labs: Lab Results 09/15/22 09/15/22 09/15/22 Range/Units 19:57 20:30 20:30 WBC 8.6 (4.8-10.8) X10*3/uL RBC 4.55 L (4.60-5.80) X10*6/uL Hgb 10.7 L (14.0-18.0) g/dl Hct 36.0 L (42.0-52.0) % MCV 79.1 L (80.0-98.0) fL MCH 23.5 L (27.0-33.0) pg MCHC 29.7 L (31.0-36.0) g/dl RDW 19.1 H (11.0-16.0) % Plt Count 345 (160-400) X10*3/uL MPV 9.6 (9.4-12.4) fL Immature Gran % (Auto) 0.7 H (0.0-0.4) % Neut % (Auto) 86.0 H (45-73) % Lymph % (Auto) 8.2 L (20-40) % Terrell % (Auto) 4.9 (2-11) % Eos % (Auto) 0.0 (0-4) % Baso % (Auto) 0.2 (0-2) % Lymph # (Auto) 0.7 L (1.2-4.9) X10*3/uL Terrell # (Auto) 0.4 (0.1-1.2) X10*3/uL Eos # (Auto) 0.0 (0.0-0.4) X10*3/uL Baso # (Auto) 0.0 (0.0-0.2) X10*3/uL Abs Immat Gran (auto) 0.06 H (0.00-0.03) X10*3/uL Absolute Neuts (auto) 7.4 (2.0-8.3) x10*3/uL Absolute Nucleated RBC 0.000 (0.0-0.012) X10*3/uL Nucleated RBC % (auto) 0.0 (0.0-0.2) /100WBC PT 11.3 (10.0-13.1) SEC INR 1.0 (0.9-1.1) APTT 31.7 (26.0-36.4) SEC VBG pH (7.32-7.43) VBG pCO2 mmHg VBG pO2 mmHg VBG HCO3 (22-26) mmol/L VBG O2 Saturation % VBG Base Excess mmol/L Sodium (135-145) mmol/L Potassium (3.3-5.1) mmol/L Chloride (96-108) mmol/L Carbon Dioxide (22-29) mmol/L Anion Gap (12-20) BUN (9-16) mg/dL Creatinine (0.5-1.4) mg/dL Estim Creat Clear Calc Estimated GFR Random Glucose (60-115) mg/dL Lactic Acid (0.5-2.0) mmol/L Lactic Acid F/U @ 2Hr (0.5-2.0) mmol/L Calcium (8.4-10.2) mg/dL Total Bilirubin (0.0-1.0) mg/dL AST (5-37) U/L ALT (0-40) U/L Alkaline Phosphatase (39-117) U/L Troponin I High Sens (<3.5-35.0) ng/L B-Natriuretic Peptide (<100) pg/mL Total Protein (6.5-8.0) g/dL Albumin (3.5-5.0) g/dL COVID-19 (ELIO) Negative (Negative) COVID-19 Clin Com See Note 09/15/22 09/15/22 09/15/22 Range/Units 20:30 20:30 20:30 WBC (4.8-10.8) X10*3/uL RBC (4.60-5.80) X10*6/uL Hgb (14.0-18.0) g/dl Hct (42.0-52.0) % MCV (80.0-98.0) fL MCH (27.0-33.0) pg MCHC (31.0-36.0) g/dl RDW (11.0-16.0) % Plt Count (160-400) X10*3/uL MPV (9.4-12.4) fL Immature Gran % (Auto) (0.0-0.4) % Neut % (Auto) (45-73) % Lymph % (Auto) (20-40) % Terrell % (Auto) (2-11) % Eos % (Auto) (0-4) % Baso % (Auto) (0-2) % Lymph # (Auto) (1.2-4.9) X10*3/uL Terrell # (Auto) (0.1-1.2) X10*3/uL Eos # (Auto) (0.0-0.4) X10*3/uL Baso # (Auto) (0.0-0.2) X10*3/uL Abs Immat Gran (auto) (0.00-0.03) X10*3/uL Absolute Neuts (auto) (2.0-8.3) x10*3/uL Absolute Nucleated RBC (0.0-0.012) X10*3/uL Nucleated RBC % (auto) (0.0-0.2) /100WBC PT (10.0-13.1) SEC INR (0.9-1.1) APTT (26.0-36.4) SEC VBG pH (7.32-7.43) VBG pCO2 mmHg VBG pO2 mmHg VBG HCO3 (22-26) mmol/L VBG O2 Saturation % VBG Base Excess mmol/L Sodium 140 (135-145) mmol/L Potassium 4.3 (3.3-5.1) mmol/L Chloride 100 (96-108) mmol/L Carbon Dioxide 28 (22-29) mmol/L Anion Gap 16 (12-20) BUN 9 (9-16) mg/dL Creatinine 0.81 (0.5-1.4) mg/dL Estim Creat Clear Calc 61.5 Estimated GFR > 60 Random Glucose 133 H (60-115) mg/dL Lactic Acid 2.1 H* (0.5-2.0) mmol/L Lactic Acid F/U @ 2Hr (0.5-2.0) mmol/L Calcium 9.2 D (8.4-10.2) mg/dL Total Bilirubin 0.4 (0.0-1.0) mg/dL AST 14 (5-37) U/L ALT 12 (0-40) U/L Alkaline Phosphatase 94 (39-117) U/L Troponin I High Sens 3.6 (<3.5-35.0) ng/L B-Natriuretic Peptide 19 (<100) pg/mL Total Protein 6.5 (6.5-8.0) g/dL Albumin 3.9 (3.5-5.0) g/dL COVID-19 (ELIO) (Negative) COVID-19 Clin Com 09/15/22 09/15/22 09/15/22 Range/Units 22:47 22:49 23:06 WBC (4.8-10.8) X10*3/uL RBC (4.60-5.80) X10*6/uL Hgb (14.0-18.0) g/dl Hct (42.0-52.0) % MCV (80.0-98.0) fL MCH (27.0-33.0) pg MCHC (31.0-36.0) g/dl RDW (11.0-16.0) % Plt Count (160-400) X10*3/uL MPV (9.4-12.4) fL Immature Gran % (Auto) (0.0-0.4) % Neut % (Auto) (45-73) % Lymph % (Auto) (20-40) % Terrell % (Auto) (2-11) % Eos % (Auto) (0-4) % Baso % (Auto) (0-2) % Lymph # (Auto) (1.2-4.9) X10*3/uL Terrell # (Auto) (0.1-1.2) X10*3/uL Eos # (Auto) (0.0-0.4) X10*3/uL Baso # (Auto) (0.0-0.2) X10*3/uL Abs Immat Gran (auto) (0.00-0.03) X10*3/uL Absolute Neuts (auto) (2.0-8.3) x10*3/uL Absolute Nucleated RBC (0.0-0.012) X10*3/uL Nucleated RBC % (auto) (0.0-0.2) /100WBC PT (10.0-13.1) SEC INR (0.9-1.1) APTT (26.0-36.4) SEC VBG pH 7.46 H (7.32-7.43) VBG pCO2 44 mmHg VBG pO2 74 mmHg VBG HCO3 31 H (22-26) mmol/L VBG O2 Saturation 96.0 % VBG Base Excess 7.2 mmol/L Sodium (135-145) mmol/L Potassium (3.3-5.1) mmol/L Chloride (96-108) mmol/L Carbon Dioxide (22-29) mmol/L Anion Gap (12-20) BUN (9-16) mg/dL Creatinine (0.5-1.4) mg/dL Estim Creat Clear Calc Estimated GFR Random Glucose (60-115) mg/dL Lactic Acid (0.5-2.0) mmol/L Lactic Acid F/U @ 2Hr 1.3 (0.5-2.0) mmol/L Calcium (8.4-10.2) mg/dL Total Bilirubin (0.0-1.0) mg/dL AST (5-37) U/L ALT (0-40) U/L Alkaline Phosphatase (39-117) U/L Troponin I High Sens 3.7 (<3.5-35.0) ng/L B-Natriuretic Peptide (<100) pg/mL Total Protein (6.5-8.0) g/dL Albumin (3.5-5.0) g/dL COVID-19 (ELIO) (Negative) COVID-19 Clin Com ECG Data Interpretation: Sinus rhythm with short PVCs, ventricular rate 99. Count of 194. Care at 74. QTC 420. Negative STEMI Discharge Plan Discharge Clinical Impression: COPD (chronic obstructive pulmonary disease) Patient Disposition: Admitted As Inpatient
[2022-09-15 22:54] LABS: Venous Blood Gas Refer to POC result
[2022-09-15 22:56] LABS: VBG Base Excess 7.2 mmol/L; VBG HCO3 31 mmol/L (22-26); VBG pCO2 44 mmHg; VBG pH 7.46 (7.32-7.43); VBG pO2 74 mmHg
[2022-09-15 23:08] LABS: ~Lactic Acid-LAB USE ONLY 1.3 mmol/L (0.5-2.0)
--- NOTE | 2022-09-15 23:27 | PM.IMHP ---
History of Present Illness Date of Service: 09/16/22 Chief Complaint: Shortness of breath 76-year-old male past medical history of COPD, diabetes, hyperlipidemia, tubular adenoma of colon, presents to the hospital with complaints of shortness of breath, cough, sputum production x2 days. Patient reports no chest pain, no abdominal pain nausea or vomiting, no diarrhea constipation, no urinary symptoms and no lower extremity edema. Found to have a lactic acid of 2.1, vitals otherwise significant for tachycardia, tachypnea,. Patient started on treatment for COPD exacerbation/sepsis secondary to COPD and will be admitted for the Review of Systems Review of Systems: Yes all other systems are reviewed and are negative [facility] Medical History Abnormal PET scan of colon Asthma Chronic respiratory failure COPD (chronic obstructive pulmonary disease) Diabetes GERD (gastroesophageal reflux disease) Hypertension Hypothyroidism Osteoarthritis Osteoporosis Oxygen dependent Sepsis Tobacco dependence Ureteral calculi Family History Father Throat cancer Brother Lung cancer Other Hypertension Surgical History History of appendectomy History of cataract surgery (~2011) History of lithotripsy (~2008) History of lung biopsy (~2021) Social History Household Members: Spouse Housing: Apartment Are you a primary pharmacy customer care specialist to a significant other at home: No Do you presently have visiting nurse or other home services: No Alcohol intake: current Alcohol intake frequency: holidays/special occasions only Patient Tobacco Use Status: Current everyday Tobacco user Tobacco use type: Cigarette Cigarette Packs Per Day: 0.5 Cigarettes Per Day: 8 Years Smoked: 60 Smoked in Last 30 Days: Yes e-Cigarette/Vaping Use: Currently Using Second Hand Smoke Exposure: No Use of substances other than those prescribed or required for medical reasons: No Advance Directives: No Advance Directives Information Provided: Yes Advance Directives Date on File: 12/18/20 service: No Current occupational status: unemployed and retired Meds Allergies Allergy/AdvReac Type Severity Reaction Status Date / Time shellfish derived Allergy Severe ANAPHYLAXIS Verified 08/04/22 15:20 [SHELLFISH DERIVED] pollen extracts [POLLEN] Allergy Intermediate RUNNING Verified 08/04/22 15:20 NOSE, WATERY EYES, SNEEZING varenicline [VARENICLINE] AdvReac Unknown PALPITATION Verified 08/04/22 15:20 S Active Medications: Current Medications Acetaminophen (Acetaminophen 325 Mg Tablet) 650 mg PO Q6H PRN PRN Reason: Pain, Mild (Pain Scale 1-3) Albuterol/Ipratropium (Albuterol/Iprat 2.5/0.5mg 3 Ml Ampul.Neb) 3 ml INHALE RQ4H PRN PRN Reason: Shortness of Breath/Wheezing Albuterol/Ipratropium (Albuterol/Iprat 2.5/0.5mg 3 Ml Ampul.Neb) 3 ml INHALE RQ4H WHILE AWAKE [facility] Docusate Sodium (Docusate Sodium 100 Mg Capsule) 100 mg PO DAILY PRN PRN Reason: Constipation Heparin Sodium (Porcine) (Heparin Sodium,Porcine 5,000 Unit/Ml Vial) 5,000 unit SUBCUT Q12H [facility] Levofloxacin (Levaquin) 750 mg in 150 mls @ 100 mls/hr IV ONCE ONE Stop: 09/16/22 00:02 Last Admin: 09/15/22 22:45 Dose: 100 mls/hr Methylprednisolone Sodium Succinate (Methylprednisolone Sod Succ 40 Mg/Ml Vial) 40 mg IVPUSH Q12H [facility] Ondansetron HCl (Ondansetron Hcl 4 Mg/2 Ml Vial) 4 mg IVPUSH Q8H PRN PRN Reason: Nausea and Vomiting Sodium Chloride (0.9 % Sodium Chloride Flush 3 Ml Syringe) 3 ml IVFLUSH QSHIFT [facility] Home Medications Medication Instructions Recorded Confirmed Last Taken Type metformin 500 mg tablet 500 mg PO DAILY 09/28/20 08/28/22 08/27/22 History levothyroxine 112 mcg tablet 112 mcg PO DAILY@59912/01/20 08/28/22 08/28/22 History omeprazole 20 mg capsule,delayed 20 mg PO DAILY@62912/01/20 08/28/22 08/28/22 History release ipratropium 0.5 mg-albuterol 3 mg 1 vial inhalation QID PRN asthma 08/06/21 08/28/22 10/21/21 History (2.5 mg base)/3 mL nebulization soln mirtazapine 7.5 mg tablet 7.5 mg PO BEDTIME PRN Sleep 11/16/21 08/28/22 05/27/22 History duloxetine 30 mg capsule,delayed 1 cap PO DAILY 01/29/22 08/28/22 08/28/22 History release nabumetone 500 mg tablet 1 tab PO BID PRN knee pain 01/29/22 08/28/22 08/28/22 History montelukast 10 mg tablet 1 tab PO BEDTIME 05/28/22 08/28/22 08/27/22 History fluticasone fur. 200 mcg-umeclid 1 puff inhalation DAILY 08/28/22 08/28/22 08/28/22 History 62.5 mcg-vilant 25 mcg inhalat.powder (Trelegy Ellipta) multivitamin with folic acid 400 1 tab PO DAILY 08/28/22 08/28/22 08/28/22 History mcg tablet (Daily-Leslie (with folic acid)) Physical Exam Vital Signs and Narrative: Vital Signs: Last Vital Signs Temp 97.1 F 09/15/22 22:18 Pulse 93 09/15/22 22:18 Resp 19 09/15/22 22:18 BP 142/61 H 09/15/22 22:18 Pulse Ox 92 09/15/22 22:18 O2 Del Method 09/15/22 22:18 BMI result Body Mass Index 20.0 Const: General: cooperative and no acute distress Orientation/consciousness: patient oriented x3 Eyes: General: appearance normal, both eyes and all related structures Pupils: Equal, round and reactive pupils present Resp: Other: Diminished breath sounds Effort & Inspection: normal respiratory effort Cardio: Rate: regular rate Rhythm: regular rhythm GI: Palpation (GI): Soft to palpation Auscultation: normal bowel sounds Skin: General skin exam: no rashes or lesions noted Neuro: General: patient oriented x3 Cranial nerves: Yes Equal, round and reactive pupils present Cognition (Neuro): normal cognition Extrem: General: Yes normal to inspection and Yes no pedal edema Results Labs CBC and Chem 7: 09/15/22 20:30 09/15/22 20:30 Labs: Laboratory Results - last 24 hr 09/15/22 09/15/22 09/15/22 19:57 20:30 20:30 MCV 79.1 L MCH 23.5 L MCHC 29.7 L RDW 19.1 H Plt Count 345 MPV 9.6 Immature Gran % (Auto) 0.7 H Neut % (Auto) 86.0 H Lymph % (Auto) 8.2 L [place] % (Auto) 4.9 Eos % (Auto) 0.0 Baso % (Auto) 0.2 Lymph # (Auto) 0.7 L [place] # (Auto) 0.4 Eos # (Auto) 0.0 Baso # (Auto) 0.0 Abs Immat Gran (auto) 0.06 H Absolute Neuts (auto) 7.4 Absolute Nucleated RBC 0.000 Nucleated RBC % (auto) 0.0 PT 11.3 INR 1.0 APTT 31.7 VBG pH VBG pCO2 VBG pO2 VBG HCO3 VBG O2 Saturation VBG Base Excess Anion Gap Estim Creat Clear Calc Estimated GFR Random Glucose Lactic Acid Lactic Acid F/U @ 2Hr Calcium Total Bilirubin AST ALT Alkaline Phosphatase Troponin I High Sens B-Natriuretic Peptide Total Protein Albumin COVID-19 (ELIO) Negative COVID-19 Clin Com See Note 09/15/22 09/15/22 09/15/22 20:30 20:30 20:30 MCV MCH MCHC RDW Plt Count MPV Immature Gran % (Auto) Neut % (Auto) Lymph % (Auto) [place] % (Auto) Eos % (Auto) Baso % (Auto) Lymph # (Auto) [place] # (Auto) Eos # (Auto) Baso # (Auto) Abs Immat Gran (auto) Absolute Neuts (auto) Absolute Nucleated RBC Nucleated RBC % (auto) PT INR APTT VBG pH VBG pCO2 VBG pO2 VBG HCO3 VBG O2 Saturation VBG Base Excess Anion Gap 16 Estim Creat Clear Calc 61.5 Estimated GFR > 60 Random Glucose 133 H Lactic Acid 2.1 H* Lactic Acid F/U @ 2Hr Calcium 9.2 D Total Bilirubin 0.4 AST 14 ALT 12 Alkaline Phosphatase 94 Troponin I High Sens 3.6 B-Natriuretic Peptide 19 Total Protein 6.5 Albumin 3.9 COVID-19 (ELIO) COVID-19 [employer] 09/15/22 09/15/22 22:47 22:49 MCV MCH MCHC RDW Plt Count MPV Immature Gran % (Auto) Neut % (Auto) Lymph % (Auto) [place] % (Auto) Eos % (Auto) Baso % (Auto) Lymph # (Auto) [place] # (Auto) Eos # (Auto) Baso # (Auto) Abs Immat Gran (auto) Absolute Neuts (auto) Absolute Nucleated RBC Nucleated RBC % (auto) PT INR APTT VBG pH 7.46 H VBG pCO2 44 VBG pO2 74 VBG HCO3 31 H VBG O2 Saturation 96.0 VBG Base Excess 7.2 Anion Gap Estim Creat Clear Calc Estimated GFR Random Glucose Lactic Acid Lactic Acid F/U @ 2Hr 1.3 Calcium Total Bilirubin AST ALT Alkaline Phosphatase Troponin I High Sens B-Natriuretic Peptide Total Protein Albumin COVID-19 (ELIO) COVID-19 Clin Com Imaging Radiologist's Impressions: Impressions Chest X-Ray 09/15/22 20:35 FINDINGS/IMPRESSION: Right lung mass measuring 4.6 cm is unchanged. Additional smaller masses in the right lung are noted including a possible new right lower lung nodule measuring 1 cm. No pneumothorax. No pleural effusion. Unchanged cardiomediastinal silhouette. Assessment and Plan (1) Sepsis: Status: Acute (2) COPD with acute exacerbation: Status: Acute (3) Lactic acidosis: Status: Acute Plan 76-year-old male with past medical history of COPD with frequent admissions to the hospital presents to the hospital with COPD exacerbation found to have sepsis # sepsis - secondary to COPD exacerbation - tachycardia, tachypnea, afebrile, no leukocytosis - no evidence of any other infection, no evidence of pneumonia - will treat with IV Solu-Medrol, DuoNeb - I do not feel the patient requires IV antibiotics given the likely viral etiology of COPD exacerbation - monitor off antibiotics at this time - follow cultures # acute COPD exacerbation - dyspnea, cough, increased sputum production - DuoNeb p.r.n. as well as schedule, Solu-Medrol IV - monitor respiratory status - VBG shows no hypercapnia # lactic acidosis - secondary to above - treated with IV fluid # diabetes - low-dose sliding scale insulin - diabetic diet # hyperlipidemia - continue statin DVT prophylaxis: Heparin subQ Pt will require a minimum 2 night hospital stay for management of acute COPD exacerbation requiring admission for further management Quality Stroke Does the patient have a stroke diagnosis?: No VTE Prior VTE?: No VTE Risk Level:: Medical - moderate - high VTE Device Contraindication: Treatment Not Indicated VTE Drug Contraindication: N/A - Med Ordered
[2022-09-15 23:29] LABS: Troponin-I High Sensitivity 3.7 ng/L (<3.5-35.0)
[2022-09-15 23:59] VITALS: BP 144/60; PULSE 84; RESP 18; TEMP 36.4; O2SAT 96
[2022-09-16] VITALS (10 sets, daily range): BP systolic 125–161; BP diastolic 54–83; PULSE 76–106; RESP 14–24; TEMP 36.1–37.1; O2SAT 91–97
[2022-09-16] MEDS: Heparin Sodium,Porcine 5,000 UNIT/ML VIAL 5000 UNIT SUBCUT ×2 (00:19→13:39)
--- NOTE | 2022-09-16 05:53 | PC.NURSE ---
pt sleeping, no sign of distress. Will continue to monitor.
[2022-09-16 07:21] LABS: Glucose, Whole Blood 151 mg/dL (60-115)
[2022-09-16] MEDS: Insulin Lispro 100 UNIT/ML 3 ML VIAL SUBCUT ×3 (08:07→19:15)
[2022-09-16] MEDS: 0.9 % Sodium Chloride Flush 3 ML SYRINGE IVFLUSH ×2 (08:07→19:14)
[2022-09-16] MEDS: methylPREDNISolone Sod Succ 40 MG/ML VIAL IVPUSH ×2 (08:12→21:03)
--- NOTE | 2022-09-16 08:15 | PC.NURSE ---
Patient angry upon RN greeting him this AM. states he is angry that he is not able to eat. explained to patient he has NPO order at this time and would reach out to hospitalist. Dr Mcmahon told this RN he would be available in 15 minutes and would come talk to patient. patient told RN he was leaving at 8 am. patient alert and oriented, signed ama papaers and walked out of his room. Dr Mcmahon updated. Iv removed prior to patient leaving.
--- NOTE | 2022-09-16 08:19 | PHA.MEDREC ---
Pharmacy Consult ? Medication Reconciliation Patient left AMA prior to med rec being complete. oYdit Goff, PharmD
[2022-09-16 08:43] LABS: Hematocrit 36.1 % (42.0-52.0); Hemoglobin 10.8 g/dl (14.0-18.0); Imm Gran Abs Auto 0.05 X10*3/uL (0.00-0.03); Lymphocytes Absolute Auto 0.3 X10*3/uL (1.2-4.9); Lymphocytes Percent Auto 5.3 % (20-40); MANUAL DIFF FLAG SCAN; Mean Corpuscular HGB Conc 29.9 g/dl (31.0-36.0); Mean Corpuscular Hemoglobin 23.6 pg (27.0-33.0); Mean Corpuscular Volume 78.8 fL (80.0-98.0); Mean Platelet Volume 9.6 fL (9.4-12.4); Monocytes Absolute Auto 0.1 X10*3/uL (0.1-1.2); Monocytes Percent Auto 1.1 % (2-11); Neutrophils Absolute Auto 4.9 x10*3/uL (2.0-8.3); Neutrophils Percent Auto 92.6 % (45-73); Platelet Count 334 X10*3/uL (160-400); Red Blood Count 4.58 X10*6/uL (4.60-5.80); Red Cell Distribution Width 18.9 % (11.0-16.0); SCAN SMEAR FLAG 1; White Blood Count 5.3 X10*3/uL (4.8-10.8)
[2022-09-16 09:01] LABS: SLIDE REVIEW VERIFIED
[2022-09-16 09:05] LABS: Anion Gap 17 (12-20); Blood Urea Nitrogen 11 mg/dL (9-16); Calcium 8.5 mg/dL (8.4-10.2); Carbon Dioxide 29 mmol/L (22-29); Chloride 99 mmol/L (96-108); Creatinine Clr Calc Pharmacy 57.3; Estimated Glomerular Filt Rate > 60; Glucose Random 203 mg/dL (60-115); Potassium 4.8 mmol/L (3.3-5.1); Sodium 140 mmol/L (135-145)
[2022-09-16] MEDS: Albuterol/Iprat 2.5/0.5MG 3 ML AMPUL.NEB INHALE ×3 (12:47→19:03)
--- NOTE | 2022-09-16 12:50 | HO.PM.IMPN ---
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 (cites a family member who had lung Ca and within 1 month as the reason for now wanting treatment) Review of Systems negative except HPI Physical Exam Vital Signs: Vital Signs: Last Vital Signs Temp 98.1 F 09/16/22 07:00 Pulse 94 09/16/22 12:49 Resp 22 H 09/16/22 12:49 BP 125/67 09/16/22 11:12 Pulse Ox 96 09/16/22 11:12 O2 Del Method 09/16/22 11:12 BMI result Body Mass Index 20.0 Const: Other: General - no acute distress, appears comfortable Cardiovascular - regular rate and rhythm, S1-S2 Lungs - diffuse wheezing, use of accessory mucles after a 5 minute conversation; pursed lip breathing Abdomen - soft, nontender, no rebound or guarding Extremities - no edema bilaterally Neuro - awake and alert, no focal deficits Objective Data Active Medications Acetaminophen (Acetaminophen 325 Mg Tablet) 650 mg PO Q6H PRN PRN Reason: Pain, Mild (Pain Scale 1-3) Albuterol/Ipratropium (Albuterol/Iprat 2.5/0.5mg 3 Ml Ampul.Neb) 3 ml INHALE RQ4H PRN PRN Reason: Shortness of Breath/Wheezing Albuterol/Ipratropium (Albuterol/Iprat 2.5/0.5mg 3 Ml Ampul.Neb) 3 ml INHALE RQ4H WHILE AWAKE [facility] Last Admin: 09/16/22 12:47 Dose: 3 ml Documented By: THEODORE Dextrose (Dextrose 50 % 25 Gm/50 Ml Syringe) 25 gm IVPUSH Q15M PRN; Protocol PRN Reason: per Hypoglycemia Standing Ord. Docusate Sodium (Docusate Sodium 100 Mg Capsule) 100 mg PO DAILY PRN PRN Reason: Constipation Glucose (Glucose Gel 15 Gm Gel..Gram.) 15 gm PO Q15M PRN; Protocol PRN Reason: per Hypoglycemia Standing Ord. Heparin Sodium (Porcine) (Heparin Sodium,Porcine 5,000 Unit/Ml Vial) 5,000 unit SUBCUT Q12H [facility] Last Admin: 09/16/22 00:19 Dose: 5,000 unit Documented By: ANDIE Insulin Human Lispro (Insulin Lispro 100 Unit/Ml 3 Ml Vial) 0 unit SUBCUT QIDACHS [facility]; Protocol Last Admin: 09/16/22 08:07 Dose: 2 unit Documented By: RHINA Methylprednisolone Sodium Succinate (Methylprednisolone Sod Succ 40 Mg/Ml Vial) 40 mg IVPUSH Q12H [facility] Last Admin: 09/16/22 08:12 Dose: 40 mg Documented By: RHINA Ondansetron HCl (Ondansetron Hcl 4 Mg/2 Ml Vial) 4 mg IVPUSH Q8H PRN PRN Reason: Nausea and Vomiting Sodium Chloride (0.9 % Sodium Chloride Flush 3 Ml Syringe) 3 ml IVFLUSH QSHIFT [facility] Last Admin: 09/16/22 08:07 Dose: 3 ml Documented By: RHINA Labs CBC & Chem 7: 09/16/22 08:17 09/16/22 08:17 Labs: Laboratory Results - last 24 hr 09/15/22 09/15/22 09/15/22 19:57 20:30 20:30 MCV 79.1 L MCH 23.5 L MCHC 29.7 L RDW 19.1 H Plt Count 345 MPV 9.6 Immature Gran % (Auto) 0.7 H Neut % (Auto) 86.0 H Lymph % (Auto) 8.2 L [place] % (Auto) 4.9 Eos % (Auto) 0.0 Baso % (Auto) 0.2 Lymph # (Auto) 0.7 L [place] # (Auto) 0.4 Eos # (Auto) 0.0 Baso # (Auto) 0.0 Abs Immat Gran (auto) 0.06 H Absolute Neuts (auto) 7.4 Absolute Nucleated RBC 0.000 Nucleated RBC % (auto) 0.0 Smear Tech's Comments PT 11.3 INR 1.0 APTT 31.7 VBG pH VBG pCO2 VBG pO2 VBG HCO3 VBG O2 Saturation VBG Base Excess Anion Gap Estim Creat Clear Calc Estimated GFR POC Glucose Random Glucose Lactic Acid Lactic Acid F/U @ 2Hr Calcium Total Bilirubin AST ALT Alkaline Phosphatase Troponin I High Sens B-Natriuretic Peptide Total Protein Albumin COVID-19 (ELIO) Negative COVID-19 Clin Com See Note 09/15/22 09/15/22 09/15/22 20:30 20:30 20:30 MCV MCH MCHC RDW Plt Count MPV Immature Gran % (Auto) Neut % (Auto) Lymph % (Auto) [place] % (Auto) Eos % (Auto) Baso % (Auto) Lymph # (Auto) [place] # (Auto) Eos # (Auto) Baso # (Auto) Abs Immat Gran (auto) Absolute Neuts (auto) Absolute Nucleated RBC Nucleated RBC % (auto) Smear Tech's Comments PT INR APTT VBG pH VBG pCO2 VBG pO2 VBG HCO3 VBG O2 Saturation VBG Base Excess Anion Gap 16 Estim Creat Clear Calc 61.5 Estimated GFR > 60 POC Glucose Random Glucose 133 H Lactic Acid 2.1 H* Lactic Acid F/U @ 2Hr Calcium 9.2 D Total Bilirubin 0.4 AST 14 ALT 12 Alkaline Phosphatase 94 Troponin I High Sens 3.6 B-Natriuretic Peptide 19 Total Protein 6.5 Albumin 3.9 COVID-19 (ELIO) [employer] 09/15/22 09/15/22 09/15/22 22:47 22:49 23:06 MCV MCH MCHC RDW Plt Count MPV Immature Gran % (Auto) Neut % (Auto) Lymph % (Auto) [place] % (Auto) Eos % (Auto) Baso % (Auto) Lymph # (Auto) [place] # (Auto) Eos # (Auto) Baso # (Auto) Abs Immat Gran (auto) Absolute Neuts (auto) Absolute Nucleated RBC Nucleated RBC % (auto) Smear Tech's Comments PT INR APTT VBG pH 7.46 H VBG pCO2 44 VBG pO2 74 VBG HCO3 31 H VBG O2 Saturation 96.0 VBG Base Excess 7.2 Anion Gap Estim Creat Clear Calc Estimated GFR POC Glucose Random Glucose Lactic Acid Lactic Acid F/U @ 2Hr 1.3 Calcium Total Bilirubin AST ALT Alkaline Phosphatase Troponin I High Sens 3.7 B-Natriuretic Peptide Total Protein Albumin COVID-19 (ELIO) [employer] 09/16/22 09/16/22 09/16/22 07:08 08:17 08:17 MCV 78.8 L MCH 23.6 L MCHC 29.9 L RDW 18.9 H Plt Count 334 MPV 9.6 Immature Gran % (Auto) 1.0 H Neut % (Auto) 92.6 H Lymph % (Auto) 5.3 L [place] % (Auto) 1.1 L Eos % (Auto) 0.0 Baso % (Auto) 0.0 Lymph # (Auto) 0.3 L [place] # (Auto) 0.1 Eos # (Auto) 0.0 Baso # (Auto) 0.0 Abs Immat Gran (auto) 0.05 H Absolute Neuts (auto) 4.9 Absolute Nucleated RBC 0.000 Nucleated RBC % (auto) 0.0 Smear Tech's Comments VERIFIED PT INR APTT VBG pH VBG pCO2 VBG pO2 VBG HCO3 VBG O2 Saturation VBG Base Excess Anion Gap 17 Estim Creat Clear Calc 57.3 Estimated GFR > 60 POC Glucose 151 H Random Glucose 203 H D Lactic Acid Lactic Acid F/U @ 2Hr Calcium 8.5 D Total Bilirubin AST ALT Alkaline Phosphatase Troponin I High Sens B-Natriuretic Peptide Total Protein Albumin COVID-19 (ELIO) COVID-19 Clin Com Assessment and Plan (1) COPD with acute exacerbation: Status: Acute Plan 76 yo M admitted for COPD exacerbation. 1. Acute COPD exacerbation slowly improving, but still with REED on minimal activity continue solu-medrol and continue updrafts I do not believe this patient has severe sepsis. His lactate is likely a result of albuterol use hold off abx 2. Lung Ca pt has declined treatment. attempted (with [place] speaking photoengraving supervisor to d/w him re: his reasoning but he does not seem interested in treatment). 3. DM sliding scale 4. Tobacco use Does not state he how much he is currently smoking, but does report that he will be quitting NRT with patch Patient continues to have significant exacerbation of his underlying COPD and cannot tolerate minial activity such as a 5 minute convo, hence will continue with current treatment for an additional 24 hours and re-eval. Quality Stroke Does the patient have a stroke diagnosis?: No VTE Prior VTE?: No VTE Risk Level:: Medical - moderate - high VTE Device Contraindication: Treatment Not Indicated VTE Drug Contraindication: N/A - Med Ordered
[2022-09-16 13:26] LABS: Glucose, Whole Blood 163 mg/dL (60-115)
[2022-09-16 19:10] LABS: Glucose, Whole Blood 189 mg/dL (60-115)
--- NOTE | 2022-09-16 20:42 | PC.NURSE ---
pt resting comfortably during shift. pt ate 90-100% of lunch and dinner, pt rec 2 units humalog per sliding scale last FSBS 189. report called to Annette LEAHY overflow.
[2022-09-16 21:09] LABS: Glucose, Whole Blood 148 mg/dL (60-115)
[2022-09-17] MEDS: Heparin Sodium,Porcine 5,000 UNIT/ML VIAL 5000 UNIT SUBCUT (00:43)
[2022-09-17 01:28] VITALS: BP 115/53; PULSE 67; RESP 14; TEMP 36.4; O2SAT 93
[2022-09-17 06:37] VITALS: BP 134/67; PULSE 72; RESP 15; TEMP 36.1; O2SAT 95
[2022-09-17 07:31] LABS: Glucose, Whole Blood 271 mg/dL (60-115)
[2022-09-17] MEDS: 0.9 % Sodium Chloride Flush 3 ML SYRINGE IVFLUSH (07:50)
[2022-09-17] MEDS: methylPREDNISolone Sod Succ 40 MG/ML VIAL IVPUSH (07:50)
[2022-09-17] MEDS: Insulin Lispro 100 UNIT/ML 3 ML VIAL SUBCUT (07:50)
[2022-09-17] MEDS: Albuterol/Iprat 2.5/0.5MG 3 ML AMPUL.NEB INHALE (08:25)
[2022-09-17 08:26] VITALS: PULSE 91; RESP 18; O2SAT 93
[2022-09-17 09:05] VITALS: BP 155/71; PULSE 77; RESP 12; TEMP 36.8
[2022-09-17 09:33] VITALS: O2SAT 94
--- NOTE | 2022-09-17 10:33 | P.DS_ITS ---
DS: Providers Provider Date of Service: 09/17/22 Date of admission: 09/15/22 23:21 Date of discharge: 09/17/22 Primary care physician: Luz Mccall NP Attending physician on discharge: Miguel Mcmahon Discharging clinician: Pallavi Bernal DS: Diagnosis Discharge Diagnosis (1) COPD with acute exacerbation: Status: Acute (2) Sepsis: Status: Acute DS: Summary Hospital Course Hospital Course: From H&P on day of admission 76-year-old male past medical history of COPD, diabetes, hyperlipidemia, tubular adenoma of colon, presents to the hospital with complaints of shortness of breath, cough, sputum production x2 days.? Patient reports no chest pain, no abdominal pain nausea or vomiting, no diarrhea constipation, no urinary symptoms and no lower extremity edema.? Found to have a lactic acid of 2.1, vitals otherwise significant for tachycardia, tachypnea,.? Patient started on treatment for COPD exacerbation/sepsis secondary to COPD He was admitted to the hospital for management of COPD exacerbation and probable viral sepsis and started on breathing treatments and system steroids. His tachycardia and tachypnea resolved and had improvement in his breathing. He was able to ambulate on room air with no dyspnea and maintaining his oxygen saturation in the mid 90s. He will be discharged home to continue his baseline inhalers. He will be discharged with a course of prednisone and antibiotics. Smoking cessation was encouraged. Time Spent with Patient Time attestation: Total time spent providing and/or coordinating discharge services: Discharge coordination time: Greater than 30 minutes Quality: Safe Use of Opioids Does Pt have an Active Cancer Diagnosis on the Problem List?: Yes Opioid Measure Date for [facility] Report: 08/18/22 Opioid Measure Time for [facility] Report: 17:21 Quality: Stroke Does the patient have a stroke diagnosis?: No Physical Exam Vital Signs: Vital Signs: Last Vital Signs Temp 98.3 F 09/17/22 09:05 Pulse 77 09/17/22 09:05 Resp 12 09/17/22 09:05 BP 155/71 H 09/17/22 09:05 Pulse Ox 94 09/17/22 09:33 O2 Del Method 09/17/22 09:33 BMI result Body Mass Index 20.0 Const: General: cooperative, comfortable, alert and awake Nutritional Appearance: thin Orientation/consciousness: patient oriented x3 Resp: Other: scattered expiratory wheeze; good inspiratory effort Effort & Inspection: normal respiratory effort, able to speak in complete sentences and no use of accessory muscles Cardio: Rate: regular rate Heart sounds: S1 normal heart sound present and S2 normal heart sound present GI: Inspection: No distended Palpation (GI): Soft to palpation and nontender Neuro: General: patient oriented x3 and CN's II-XI intact bilaterally Extrem: General: Yes no pedal edema DS: Data Data Completed and Pending Completed studies during hospitalization [Text1]: Procedures Dilation of Right Ureter with Intraluminal Device, Via Natural or Artificial Opening Endoscopic (11/16/21) Extirpation of Matter from Right Ureter, Via Natural or Artificial Opening Endoscopic (11/16/21) Fluoroscopy of Right Kidney, Ureter and Bladder (11/16/21) Labs on day of discharge: Laboratory Results - last 24 hr 09/16/22 09/16/22 09/16/22 13:19 19:03 21:04 POC Glucose 163 H 189 H 148 H 09/17/22 07:27 POC Glucose 271 H Preliminary micro results at discharge 09/15/22 20:30 Blood Culture - Preliminary Blood - Venous No growth after 24 hours. 09/15/22 20:30 Blood Culture - Preliminary Blood - Venous No growth after 24 hours. Discharge Plan Discharge Anticipated Discharge Date/Time: 09/17/22 10:10 Patient Disposition: Home, Self-Care Discharge Diagnosis: acute copd exacerbation Referrals: Luz Mccall NP [Primary Care Provider] - 1 Week Discharge Medications: New prednisone 10 mg tablet See Taper PO DAILY Qty: 21 0RF Taper: Prednisone 40 mg daily for 3 Days and 0 Hour 30 mg daily for 2 Days and 0 Hour 20 mg daily for 1 Day and 0 Hour 10 mg daily for 1 Day and 0 Hour cefuroxime axetil 250 mg tablet 250 mg PO BID 3 Days Qty: 6 0RF Continued albuterol sulfate [Ventolin HFA] 90 mcg/actuation HFA aerosol inhaler 2 puff PO Q6H PRN (Reason: shortness of breath or wheezing) Qty: 18 3RF theophylline 400 mg tablet extended release 24 hr 400 mg PO DAILY Qty: 30 6RF metformin 500 mg tablet 500 mg PO DAILY levothyroxine 112 mcg tablet 112 mcg PO DAILY@0600 omeprazole 20 mg capsule,delayed release(DR/EC) 20 mg PO DAILY@0630 ipratropium-albuterol 0.5 mg-3 mg(2.5 mg base)/3 mL solution for nebulization 1 vial inhalation QID PRN (Reason: asthma) mirtazapine 7.5 mg Tablet 7.5 mg PO BEDTIME PRN (Reason: Sleep) nabumetone 500 mg tablet 1 tab PO BID PRN (Reason: knee pain) duloxetine 30 mg capsule,delayed release(DR/EC) 1 cap PO DAILY montelukast 10 mg tablet 1 tab PO BEDTIME multivitamin with folic acid [Daily-Leslie (with folic acid)] 400 mcg tablet 1 tab PO DAILY Trelegy Ellipta 200-62.5-25 mcg blister with device 1 puff inhalation DAILY pyridoxine (vitamin B6) 100 mg tablet 100 mg PO DAILY 90 Days Qty: 90 1RF Discontinued cefuroxime axetil 500 mg tablet 500 mg PO BID 7 Days Qty: 14 0RF prednisone 10 mg tablet See Rx Instructions .Route .COMPLEX Qty: 45 0RF Rx Instructions: 10 mg orally; 5 tabs p.o. daily x3 days; 4 tabs p.o. daily x3 days; 3 tabs daily x3 days; 2 tabs daily x3 days; 1 tab daily x3 days Discharge Orders: Discharge Order (Routine); Ordered 09/17/22 Ordered By: Pallavi Bernal Activity on Discharge: As tolerated Stand Alone Forms: Patient Portal Discharge page Care Plan Goals: See below Health Concerns: Acute COPD exacerbation Plan of Treatment: Complete course of prednisone and antibiotics as prescribed recommend to stop smoking follow up with PCP as needed Assessment: see discharge summary Discharge Date/Time: 09/17/22 10:49
== END 2022-09-17 10:49 | disposition home or self-care (01) | DRG 872 ==
LOC: HO.ED 20:15 → HO.EDOVER 23:55
PROVIDERS: Family Medicine; Physician Assistant; Admitting Provider Internal Medicine; Emergency Provider Emergency Medicine; PCP Nurse Practitioner Family; Visit Provider Physician Assistant Medical
DX: A41.89 Other specified sepsis (principal); J44.1 Chronic obstructive pulmonary disease with (acute) exacerbation; C34.31 Malignant neoplasm of lower lobe, right bronchus or lung; E87.20 Acidosis, unspecified; Z99.81 Dependence on supplemental oxygen; K21.9 Gastro-esophageal reflux disease without esophagitis; I10 Essential (primary) hypertension; E78.5 Hyperlipidemia, unspecified; E11.9 Type 2 diabetes mellitus without complications; F17.210 Nicotine dependence, cigarettes, uncomplicated; Z71.6 Tobacco abuse counseling; Z20.822 Contact with and (suspected) exposure to COVID-19; Z91.013 Allergy to seafood; Z88.8 Allergy status to other drugs, medicaments and biological substances; Z79.84 Long term (current) use of oral hypoglycemic drugs; Z79.890 Hormone replacement therapy; Z79.899 Other long term (current) drug therapy
CPT/HCPCS: 36415; 71045; 80048; 80053; 82803; 82947; 83605; 83880; 84484; 85025; 85610; 85730; 87040; 87635; 93005; 94640; 99285; J1956; J2920; J2930; J3475

== ENCOUNTER → 2022-10-07 14:09 | Outpatient (BNVA) | payer MEDICARE, MEDICAID, SELFPAY | PROVIDERS: PCP Nurse Practitioner Family; Visit Provider Internal Medicine Pulmonary Disease | DX: J44.9 Chronic obstructive pulmonary disease, unspecified (principal); C34.90 Malignant neoplasm of unspecified part of unspecified bronchus or lung | CPT/HCPCS: 99212 ==

== ENCOUNTER 2022-12-01 14:40 | Emergency (ER) | payer MEDICARE, MEDICAID, SELFPAY ==
--- NOTE | ~2022-12-01 | CT_ITS ---
EXAMINATION: CT ANGIOGRAM OF THE CHEST WITH AND WITHOUT CONTRAST (CT PULMONARY ANGIOGRAM FOR PE) CLINICAL INFORMATION: Reason for Exam worsening SOB, lung CA, ?PE COMPARISON: PET/CT 04/29/2022 TECHNIQUE: Prior to contrast administration, noncontrast localization images were obtained. Subsequently, multidetector volumetric imaging was performed from the thoracic inlet to below the diaphragms following the administration of 65 mL Omnipaque 350 intravenous contrast. No contrast reaction reported Sagittal, coronal, and MIP oblique sagittal reformatted images were obtained on the CT workstation, uploaded to PACS, and reviewed. This CT examination was performed using dose optimization techniques as appropriate, variously including the following: *Automated exposure control *Adjustment of mA and/or kV according to patient size (this includes techniques or standardized protocols for targeted exams where dose is matched to indication/reason for exam; i.e. extremities or head) *Use of iterative reconstruction technique Total exam dose-length product 190 mGy-cm FINDINGS: QUALITY OF STUDY/CONTRAST BOLUS: Satisfactory. PULMONARY ARTERIES: No central or segmental pulmonary emboli. THORACIC AORTA: No aneurysm or dissection. Calcific atherosclerotic change present in the descending thoracic aorta. LUNG: There is underlying COPD. Large right posterior lung mass has increased in size from 3.4 cm to 4.7 cm. An additional mass below this level in the right costophrenic sulcus has increased in size from 2.7 cm to 5.7 cm and now is necrotic with some air present within. No other suspicious solid masses are seen. Large calcified granuloma present at the left lung base. PLEURA: Calcified pleural plaques present on the right. MEDIASTINUM: Normal heart size. No pericardial effusion. No hilar or mediastinal lymphadenopathy. No evidence of septal bowing or right heart strain. CHEST WALL/AXILLA: No axillary or internal mammary lymphadenopathy. OSSEOUS STRUCTURES: No acute or suspicious osseous abnormality. UPPER ABDOMEN: Unremarkable. No reflux of contrast into the hepatic veins to suggest elevated right heart pressures. CT/CT angio chest PE protocol IMPRESSION: 1. No evidence of pulmonary emboli. 2. Enlarging right lung masses, the largest cavitary. 3. COPD VTE: negative.
--- NOTE | ~2022-12-01 | XR_ITS ---
EXAMINATION: XR CHEST CLINICAL INFORMATION: Right lung mass. Cough. COMPARISON: Chest x-ray 09/15/2022 TECHNIQUE: Frontal view of the chest was obtained. FINDINGS: The right lung mass in the parahilar region has increased in size with a superior lobulation altogether measuring 6.2 cm in craniocaudad length and 5.3 cm in width. There is a calcified small nodules in the left lower lobe measuring 5 mm. There is moderate right apical parenchymal thickening and scarring. No visible pneumothorax seen. Heart size and pulmonary vascularity is normal. No gross bony abnormality. XR/XR chest 1V IMPRESSION: 1. Interval increase in size of right parahilar mass. 2. There is moderate right apical parenchymal thickening and scarring. 3. There is a small calcified nodules in the left lower lobe, stable.
[2022-12-01 14:45] VITALS: BP 112/55; PULSE 102; RESP 26; TEMP 36.2; O2SAT 96; BMI 18.4
--- NOTE | 2022-12-01 14:45 | ECG_ITS ---
Test Reason : sob Blood Pressure : / mmHG Vent. Rate : 097 BPM Atrial Rate : 086 BPM P-R Int : 110 ms QRS Dur : 086 ms QT Int : 326 ms P-R-T Axes : 075 061 068 degrees QTc Int : 414 ms Sinus rhythm with short [place] with Premature supraventricular complexes Abnormal ECG When compared with ECG of 15-SEP-2022 20:09, No significant change was found Referred By: Adriana Fonseca Electronically Signed By:ANTONIO WILLAMS
--- NOTE | 2022-12-01 14:45 | ED_ITS ---
HPI - SOB/Dyspnea General Chief Complaint: Dyspnea <PHUONG Monsivais - Last Filed: 12/01/22 14:53> Stated Complaint: Difficulty breathing <PHUONG Monsivais - Last Filed: 12/01/22 14:53> Time Seen by Provider: 12/01/22 14:57 <PHUONG Monsivais - Last Filed: 12/01/22 14:53> Source: patient <Elif Allen CNP - Last Filed: 12/01/22 18:49> Mode of arrival: ambulatory <Elif Allen CNP - Last Filed: 12/01/22 18:49> Limitations: language barrier ([place]-speaking medical administrator utilized) <Elif Allen CNP - Last Filed: 12/01/22 18:49> History of Present Illness HPI Narrative: Patient is a 76-year-old male who presents to the emergency department with complaints of shortness of breath, productive cough, and wheezing for the past 4 days. He states he has been using albuterol at home without any significant improvement. Patient is Abad reports a history of asthma, COPD, and lung cancer. Reports that patient is not currently on oxygen at home. Denies known sick contacts. Denies fevers, chills, chest pain, neck pain, nausea, vomiting, abdominal pain, numbness or tingling of the extremities <Elif Allen CNP - Last Filed: 12/01/22 18:49> Related Data Home Medications: Home Medications Medication Instructions Recorded Confirmed metformin 500 mg tablet 500 mg PO DAILY 09/28/20 08/28/22 levothyroxine 112 mcg tablet 112 mcg PO DAILY@0600 12/01/20 08/28/22 omeprazole 20 mg capsule,delayed 20 mg PO DAILY@0630 12/01/20 08/28/22 release ipratropium 0.5 mg-albuterol 3 mg 1 vial inhalation QID PRN asthma 08/06/21 08/28/22 (2.5 mg base)/3 mL nebulization soln mirtazapine 7.5 mg tablet 7.5 mg PO BEDTIME PRN Sleep 11/16/21 08/28/22 duloxetine 30 mg capsule,delayed 1 cap PO DAILY 01/29/22 08/28/22 release nabumetone 500 mg tablet 1 tab PO BID PRN knee pain 01/29/22 08/28/22 montelukast 10 mg tablet 1 tab PO BEDTIME 05/28/22 08/28/22 fluticasone fur. 200 mcg-umeclid 1 puff inhalation DAILY 08/28/22 08/28/22 62.5 mcg-vilant 25 mcg inhalat.powder (Trelegy Ellipta) multivitamin with folic acid 400 1 tab PO DAILY 08/28/22 08/28/22 mcg tablet (Daily-Leslie (with folic acid)) Previous Rx's Medication Instructions Recorded theophylline 400 mg 400 mg PO DAILY #30 tabs 05/04/22 tablet,extended release 24 hr pyridoxine (vitamin B6) 100 mg 100 mg PO DAILY 90 days #90 tabs 08/05/22 tablet cefuroxime axetil 250 mg tablet 250 mg PO BID 3 days #6 tabs 09/17/22 prednisone 20 mg tablet 20 mg PO DAILY 30 days #30 tabs 10/07/22 Ventolin HFA 90 mcg/actuation 2 puff PO Q6H PRN shortness of 11/26/22 aerosol inhaler (albuterol sulfate) breath or wheezing #18 ea albuterol sulfate 90 mcg/actuation 2 inh inhalation Q4-6H PRN 12/01/22 breath activated powder inhaler shortness of breath or wheezing #1 ea benzonatate 100 mg capsule 100 mg PO BID PRN cough #20 caps 12/01/22 prednisone 20 mg tablet 20 mg PO DAILY 5 days #5 tabs 12/01/22 <PHUONG Monsivais - Last Filed: 12/01/22 14:53> Allergies/Adverse Reactions: Allergies Allergy/AdvReac Type Severity Reaction Status Date / Time shellfish derived Allergy Severe ANAPHYLAXIS Verified 10/07/22 14:13 [SHELLFISH DERIVED] pollen extracts [POLLEN] Allergy Intermediate RUNNING Verified 10/07/22 14:13 NOSE, WATERY EYES, SNEEZING varenicline [VARENICLINE] AdvReac Unknown PALPITATION Verified 10/07/22 14:13 S <PHUONG Monsivais - Last Filed: 12/01/22 14:53> Review of Systems Review of Systems: Constitutional : No Fever, No Chills ENT/Mouth : No sore throat, No Rhinorrhea, No Swallowing Difficulty Eyes: No Eye Pain, No Swelling, No Redness Cardiovascular : No Chest Pain, positive SOB, positive Orthopnea, no Edema Respiratory : Positive Cough, positive Sputum, positive Wheezing, positive dyspnea Gastrointestinal : No Nausea, No Vomiting, No Diarrhea, No abdominal Pain, No hematochezia, No Melena Genitourinary : No Dysuria, No Urinary Frequency, No Hematuria Musculoskeletal : No joint pain, No Myalgias Skin : No Skin Lesions, No rash Neuro : No Weakness, No Numbness, No Dizziness, No Headache Psych : No Anxiety/Panic, No Depression Heme/Lymph: No Bruising, No Lymphadenopathy Endocrine : No Polyuria, No Polydipsia <Elif Allen CNP - Last Filed: 12/01/22 18:49> Yes all other systems are reviewed and are negative <Elif Allen CNP - Last Filed: 12/01/22 18:49> [facility] Past Medical History Attestation statement: The following information was validated with the patient. <Eilf Allen CNP - Last Filed: 12/01/22 18:49> Source: old records reviewed <Elif Allen CNP - Last Filed: 12/01/22 18:49> Medical History: Medical History Abnormal PET scan of colon Asthma Chronic respiratory failure COPD (chronic obstructive pulmonary disease) Diabetes GERD (gastroesophageal reflux disease) Hypertension Hypothyroidism Osteoarthritis Osteoporosis Oxygen dependent Sepsis Tobacco dependence Ureteral calculi <PHUONG Monsivais - Last Filed: 12/01/22 14:53> Surgical History: Surgical History History of appendectomy History of cataract surgery (~2011) History of lithotripsy (~2008) History of lung biopsy (~2021) <PHUONG Monsivais - Last Filed: 12/01/22 14:53> Family History Family History: Family History Father Throat cancer Brother Lung cancer Other Hypertension <PHUONG Monsivais - Last Filed: 12/01/22 14:53> Social History Social History: Social History Household Members: Spouse Housing: Apartment Are you a primary pharmacist critical care to a significant other at home: No Do you presently have visiting nurse or other home services: No Alcohol intake: current Alcohol intake frequency: holidays/special occasions only Patient Tobacco Use Status: Current everyday Tobacco user Tobacco use type: Cigarette Cigarette Packs Per Day: 0.5 Cigarettes Per Day: 8 Years Smoked: 60 e-Cigarette/Vaping Use: Currently Using Second Hand Smoke Exposure: No Advance Directives: No Advance Directives Information Provided: No Advance Directives Date on File: 12/18/20 service: No Current occupational status: unemployed and retired <PHUONG Monsivais - Last Filed: 12/01/22 14:53> Physical Exam Vital Signs: Vital Signs: Last Vital Signs Temp 98.3 F 12/01/22 19:07 Pulse 95 12/01/22 19:07 Resp 18 12/01/22 19:07 BP 124/57 L 12/01/22 19:07 Pulse Ox 92 12/01/22 19:07 O2 Del Method 12/01/22 19:07 BMI result Body Mass Index 18.4 <PHUONG Monsivais - Last Filed: 12/01/22 14:53> Vital Signs: Last Vital Signs Temp 98.3 F 12/01/22 19:07 Pulse 95 12/01/22 19:07 Resp 18 12/01/22 19:07 BP 124/57 L 12/01/22 19:07 Pulse Ox 92 12/01/22 19:07 O2 Del Method 12/01/22 19:07 BMI result Body Mass Index 18.4 <Elif Allen CNP - Last Filed: 12/01/22 18:49> Vital Signs: Last Vital Signs Temp 98.3 F 12/01/22 19:07 Pulse 95 12/01/22 19:07 Resp 18 12/01/22 19:07 BP 124/57 L 12/01/22 19:07 Pulse Ox 92 12/01/22 19:07 O2 Del Method 12/01/22 19:07 BMI result Body Mass Index 18.4 <PHUONG Green - Last Filed: 12/01/22 20:00> Appearance: Alert.?Oriented to person, place and time. No acute distress.?Normal affect. Eyes: Pupils equal, round and reactive to light.? ENT: Pharynx normal.?? Neck: Normal inspection.? Neck supple.?? CVS: Heart sounds normal. Normal heart rate and rhythm.? Pulses normal.?? Respiratory: Increased work breathing, accessory muscle usage, diffuse expiratory wheezing, inability to speak full sentences? Abdomen: Soft and non-tender. Normoactive bowel sounds. Skin: Skin warm and dry.? Normal skin color.? Extremities: No lower extremity edema.? No calf ttp? Neuro: Moves all extremities spontaneously. Sensation intact bilaterally. No focal neuro deficits. Ambulates with normal steady gait. <Elif Allen CNP - Last Filed: 12/01/22 18:49> Course Course Course Narrative: JACQUES--76-year-old male with past medical history of asthma, COPD presenting to the ED complaining of SOB, wheeze, cough x4 days. Patient with audible wheeze in triage, tachypneic, diffuse expiratory wheeze noted, accessory muscle use. Unable to talk in complete sentences Patient taken back into the main emergency department directly from triage EKG, labs, CXR, COVID-19/influenza/RSV, Albuterol, IV Solu-Medrol and magnesium ordered <PHUONG Monsivais - Last Filed: 12/01/22 14:53> Reevaluation(s) Reevaluation #1: Patient no longer with accessory muscle usage, able to speak clear full sentences. Respiratory rate has improved. O2 saturation 92-95% on room air. Ambulatory O2 trial 95% on room air. He reports some improvement after nebulizer/Solu-Medrol/magnesium. However he does continue to report shortness breath with minimal exertion. CBC reveals no leukocytosis, a mild microcytic anemia which is consistent with baseline, thrombocytosis. CMP is overall unremarkable. Lactic acid 0.8. At this time not consistent with sepsis/bacterial infection, symptoms likely viral in nature or related to lung cancer. Troponin 4.4, EKG revealing sinus rhythm with premature supraventricular complexes consistent with prior EKG, no acute ischemic f indings, low suspicion for ACS. Chest x-ray indicating interval increase in the size of right parahilar mass, moderate right apical parenchymal thickening and scarring. Given history of lung CA, will obtain CT angio of the chest to exclude pulmonary embolism. <Elif Judithgriselda Allen CNP - Last Filed: 12/01/22 18:49> Time: 16:59 <Elif Ojedagriselda Allen CNP - Last Filed: 12/01/22 18:49> Reevaluation #2: Patient signed out to [facility] pending CT angio of the chest and re- evaluation. <Elif Allen CNP - Last Filed: 12/01/22 18:49> Time: 18:47 <Elif Judithgriselda Allen CNP - Last Filed: 12/01/22 18:49> Reevaluation #3: Patient has been saturating 93-96% on room air w/ hx of COPD lungs clear on DCC. CTA of the chest without PE. Patient does have a lung mass noted on CT, results of CT were discussed with the patient and attached was discharged. Patient stable for discharge home, no reason for hospital admission at this time. At time of DC no complaints of CP or SOB. Discussed discharge plans with patient. Educated patient on diagnosis and treatment plan, answered all question, patient verbalizes understanding. At this time patient will be disc harged home, advised to return with new or worsening symptoms. Educated on worrisome signs and symptoms and when to return. At this time I feel comfortable discharge home. <PHUONG Green - Last Filed: 12/01/22 20:00> Time: 20:00 <PHUONG Green - Last Filed: 12/01/22 20:00> Medications Administered Discontinued Medications Generic Name Dose Route Start Last Admin Trade Name Freq PRN Reason Stop Dose Admin Albuterol Sulfate 7.5 mg/ 10 mg 12/01/22 14:53 12/01/22 14:59 Albuterol Sulfate 2.5 mg INHALE 12/01/22 14:54 10 mg ONCE ONE Administration Magnesium Sulfate 2 gm in 50 mls @ 25 mls/hr 12/01/22 14:47 12/01/22 17:19 Magnesium Sulfate/H2o IV 12/01/22 16:46 Infused ONCE ONE Infusion Iohexol 100 ml 12/01/22 18:31 12/01/22 18:31 Iohexol 350 Mg/Ml 100 Ml Infus..Btl IV 12/01/22 18:32 65 ml ONCE ONE Administration Methylprednisolone Sodium Succinate 125 mg 12/01/22 14:47 12/01/22 15:19 Methylprednisolone Sod Succ 125 Mg/2 Ml Vial IVPUSH 12/01/22 14:48 125 mg ONCE ONE Administration <PHUONG Monsivais - Last Filed: 12/01/22 14:53> Medications Administered Discontinued Medications Generic Name Dose Route Start Last Admin Trade Name Freq PRN Reason Stop Dose Admin Albuterol Sulfate 7.5 mg/ 10 mg 12/01/22 14:53 12/01/22 14:59 Albuterol Sulfate 2.5 mg INHALE 12/01/22 14:54 10 mg ONCE ONE Administration Magnesium Sulfate 2 gm in 50 mls @ 25 mls/hr 12/01/22 14:47 12/01/22 17:19 Magnesium Sulfate/H2o IV 12/01/22 16:46 Infused ONCE ONE Infusion Iohexol 100 ml 12/01/22 18:31 12/01/22 18:31 Iohexol 350 Mg/Ml 100 Ml Infus..Btl IV 12/01/22 18:32 65 ml ONCE ONE Administration Methylprednisolone Sodium Succinate 125 mg 12/01/22 14:47 12/01/22 15:19 Methylprednisolone Sod Succ 125 Mg/2 Ml Vial IVPUSH 12/01/22 14:48 125 mg ONCE ONE Administration <Elif Allen CNP - Last Filed: 12/01/22 18:49> Medications Administered Discontinued Medications Generic Name Dose Route Start Last Admin Trade Name Freq PRN Reason Stop Dose Admin Albuterol Sulfate 7.5 mg/ 10 mg 12/01/22 14:53 12/01/22 14:59 Albuterol Sulfate 2.5 mg INHALE 12/01/22 14:54 10 mg ONCE ONE Administration Magnesium Sulfate 2 gm in 50 mls @ 25 mls/hr 12/01/22 14:47 12/01/22 17:19 Magnesium Sulfate/H2o IV 12/01/22 16:46 Infused ONCE ONE Infusion Iohexol 100 ml 12/01/22 18:31 12/01/22 18:31 Iohexol 350 Mg/Ml 100 Ml Infus..Btl IV 12/01/22 18:32 65 ml ONCE ONE Administration Methylprednisolone Sodium Succinate 125 mg 12/01/22 14:47 12/01/22 15:19 Methylprednisolone Sod Succ 125 Mg/2 Ml Vial IVPUSH 12/01/22 14:48 125 mg ONCE ONE Administration <PHUOGN Green - Last Filed: 12/01/22 20:00> Medical Decision Making Medical Decision Making [facility] Narrative: Patient is a 76-year-old male with a past medical history of COPD, asthma, non-small cell lung carcinoma not a he is candidate for surgery, and patient declined radiation therapy, diabetes GERD, hypertension, hypothyroidism, osteoarthritis presents to the emergency department for evaluation of worsening shortness of breath and cough. States no relief with home albuterol. He is currently trilogy, theophylline and prednisone also as prescribed by pulmonology. Exacerbation of symptoms over the past 4 days. Will obtain CBC to evaluate for leukocytosis/ anemia, CMP to evaluate for abnormal electrolytes /abnormal renal function/ abnormal hepatic function, EKG and troponin to evaluate for ischemia/ACS. Chest x-ray to evaluate for consolidation/ infiltrate/ mass/ pulmonary congestion. Patient received albuterol nebulizer, magnesium IV, and Solu-Medrol IV; given presentation significant tachypnea, acce ssory muscle usage, diffuse expiratory wheezing. <Elif Allen CNP - Last Filed: 12/01/22 18:49> Differential Diagnosis Differential Diagnoses: The differential diagnosis associated with the presentation includes (COPD exacerbation, worsening non-small carcinoma, viral upper respiratory infection, pneumonia, ACS, pulmonary embolism, congestive heart failure.) <Elif Allen CNP - Last Filed: 12/01/22 18:49> Lab Data [facility] Lab Attestation statement: I reviewed the patient's lab results. <Elif Allen CNP - Last Filed: 12/01/22 18:49> Result Diagrams: : 12/01/22 15:00 12/01/22 15:00 <PHUONG Monsivais - Last Filed: 12/01/22 14:53> Labs: Lab Results 12/01/22 12/01/22 12/01/22 Range/Units 15:00 15:00 15:00 WBC 8.4 (4.8-10.8) X10*3/uL RBC 4.85 (4.60-5.80) X10*6/uL Hgb 11.9 L (14.0-18.0) g/dl Hct 39.8 L (42.0-52.0) % MCV 82.1 (80.0-98.0) fL MCH 24.5 L (27.0-33.0) pg MCHC 29.9 L (31.0-36.0) g/dl RDW 16.7 H (11.0-16.0) % Plt Count 513 H D (160-400) X10*3/uL MPV 9.1 L (9.4-12.4) fL Immature Gran % (Auto) 0.5 H (0.0-0.4) % Neut % (Auto) 67.2 (45-73) % Lymph % (Auto) 19.5 L (20-40) % [place] % (Auto) 7.8 (2-11) % Eos % (Auto) 4.4 H (0-4) % Baso % (Auto) 0.6 (0-2) % Lymph # (Auto) 1.6 (1.2-4.9) X10*3/uL [place] # (Auto) 0.7 (0.1-1.2) X10*3/uL Eos # (Auto) 0.4 (0.0-0.4) X10*3/uL Baso # (Auto) 0.1 (0.0-0.2) X10*3/uL Abs Immat Gran (auto) 0.04 H (0.00-0.03) X10*3/uL Absolute Neuts (auto) 5.7 (2.0-8.3) x10*3/uL Absolute Nucleated RBC 0.000 (0.0-0.012) X10*3/uL Nucleated RBC % (auto) 0.0 (0.0-0.2) /100WBC Sodium 142 (135-145) mmol/L Potassium 4.3 (3.3-5.1) mmol/L Chloride 104 (96-108) mmol/L Carbon Dioxide 30 H (22-29) mmol/L Anion Gap 12 (12-20) BUN 6 L (9-16) mg/dL Creatinine 0.78 (0.5-1.4) mg/dL Estim Creat Clear Calc 59.1 Estimated GFR > 60 Random Glucose 100 (60-115) mg/dL Lactic Acid (0.5-2.0) mmol/L Calcium 9.5 D (8.4-10.2) mg/dL Magnesium 2.0 (1.6-2.6) mg/dL Total Bilirubin 0.3 (0.0-1.0) mg/dL Direct Bilirubin < 0.2 (0.0-0.5) mg/dL AST 19 (5-37) U/L ALT 9 (0-40) U/L Alkaline Phosphatase 115 (39-117) U/L Troponin I High Sens 4.4 (<3.5-35.0) ng/L B-Natriuretic Peptide (<100) pg/mL Total Protein 6.6 (6.5-8.0) g/dL Albumin 3.8 (3.5-5.0) g/dL 12/01/22 12/01/22 Range/Units 15:00 15:45 WBC (4.8-10.8) X10*3/uL RBC (4.60-5.80) X10*6/uL Hgb (14.0-18.0) g/dl Hct (42.0-52.0) % MCV (80.0-98.0) fL MCH (27.0-33.0) pg MCHC (31.0-36.0) g/dl RDW (11.0-16.0) % Plt Count (160-400) X10*3/uL MPV (9.4-12.4) fL Immature Gran % (Auto) (0.0-0.4) % Neut % (Auto) (45-73) % Lymph % (Auto) (20-40) % [place] % (Auto) (2-11) % Eos % (Auto) (0-4) % Baso % (Auto) (0-2) % Lymph # (Auto) (1.2-4.9) X10*3/uL [place] # (Auto) (0.1-1.2) X10*3/uL Eos # (Auto) (0.0-0.4) X10*3/uL Baso # (Auto) (0.0-0.2) X10*3/uL Abs Immat Gran (auto) (0.00-0.03) X10*3/uL Absolute Neuts (auto) (2.0-8.3) x10*3/uL Absolute Nucleated RBC (0.0-0.012) X10*3/uL Nucleated RBC % (auto) (0.0-0.2) /100WBC Sodium (135-145) mmol/L Potassium (3.3-5.1) mmol/L Chloride (96-108) mmol/L Carbon Dioxide (22-29) mmol/L Anion Gap (12-20) BUN (9-16) mg/dL Creatinine (0.5-1.4) mg/dL Estim Creat Clear Calc Estimated GFR Random Glucose (60-115) mg/dL Lactic Acid 0.8 (0.5-2.0) mmol/L Calcium (8.4-10.2) mg/dL Magnesium (1.6-2.6) mg/dL Total Bilirubin (0.0-1.0) mg/dL Direct Bilirubin (0.0-0.5) mg/dL AST (5-37) U/L ALT (0-40) U/L Alkaline Phosphatase (39-117) U/L Troponin I High Sens (<3.5-35.0) ng/L B-Natriuretic Peptide 42 (<100) pg/mL Total Protein (6.5-8.0) g/dL Albumin (3.5-5.0) g/dL <PHUONG Monsivais - Last Filed: 12/01/22 14:53> Lab Results 12/01/22 12/01/22 12/01/22 Range/Units 15:00 15:00 15:00 WBC 8.4 (4.8-10.8) X10*3/uL RBC 4.85 (4.60-5.80) X10*6/uL Hgb 11.9 L (14.0-18.0) g/dl Hct 39.8 L (42.0-52.0) % MCV 82.1 (80.0-98.0) fL MCH 24.5 L (27.0-33.0) pg MCHC 29.9 L (31.0-36.0) g/dl RDW 16.7 H (11.0-16.0) % Plt Count 513 H D (160-400) X10*3/uL MPV 9.1 L (9.4-12.4) fL Immature Gran % (Auto) 0.5 H (0.0-0.4) % Neut % (Auto) 67.2 (45-73) % Lymph % (Auto) 19.5 L (20-40) % [place] % (Auto) 7.8 (2-11) % Eos % (Auto) 4.4 H (0-4) % Baso % (Auto) 0.6 (0-2) % Lymph # (Auto) 1.6 (1.2-4.9) X10*3/uL [place] # (Auto) 0.7 (0.1-1.2) X10*3/uL Eos # (Auto) 0.4 (0.0-0.4) X10*3/uL Baso # (Auto) 0.1 (0.0-0.2) X10*3/uL Abs Immat Gran (auto) 0.04 H (0.00-0.03) X10*3/uL Absolute Neuts (auto) 5.7 (2.0-8.3) x10*3/uL Absolute Nucleated RBC 0.000 (0.0-0.012) X10*3/uL Nucleated RBC % (auto) 0.0 (0.0-0.2) /100WBC Sodium 142 (135-145) mmol/L Potassium 4.3 (3.3-5.1) mmol/L Chloride 104 (96-108) mmol/L Carbon Dioxide 30 H (22-29) mmol/L Anion Gap 12 (12-20) BUN 6 L (9-16) mg/dL Creatinine 0.78 (0.5-1.4) mg/dL Estim Creat Clear Calc 59.1 Estimated GFR > 60 Random Glucose 100 (60-115) mg/dL Lactic Acid (0.5-2.0) mmol/L Calcium 9.5 D (8.4-10.2) mg/dL Magnesium 2.0 (1.6-2.6) mg/dL Total Bilirubin 0.3 (0.0-1.0) mg/dL Direct Bilirubin < 0.2 (0.0-0.5) mg/dL AST 19 (5-37) U/L ALT 9 (0-40) U/L Alkaline Phosphatase 115 (39-117) U/L Troponin I High Sens 4.4 (<3.5-35.0) ng/L B-Natriuretic Peptide (<100) pg/mL Total Protein 6.6 (6.5-8.0) g/dL Albumin 3.8 (3.5-5.0) g/dL 12/01/22 12/01/22 Range/Units 15:00 15:45 WBC (4.8-10.8) X10*3/uL RBC (4.60-5.80) X10*6/uL Hgb (14.0-18.0) g/dl Hct (42.0-52.0) % MCV (80.0-98.0) fL MCH (27.0-33.0) pg MCHC (31.0-36.0) g/dl RDW (11.0-16.0) % Plt Count (160-400) X10*3/uL MPV (9.4-12.4) fL Immature Gran % (Auto) (0.0-0.4) % Neut % (Auto) (45-73) % Lymph % (Auto) (20-40) % [place] % (Auto) (2-11) % Eos % (Auto) (0-4) % Baso % (Auto) (0-2) % Lymph # (Auto) (1.2-4.9) X10*3/uL [place] # (Auto) (0.1-1.2) X10*3/uL Eos # (Auto) (0.0-0.4) X10*3/uL Baso # (Auto) (0.0-0.2) X10*3/uL Abs Immat Gran (auto) (0.00-0.03) X10*3/uL Absolute Neuts (auto) (2.0-8.3) x10*3/uL Absolute Nucleated RBC (0.0-0.012) X10*3/uL Nucleated RBC % (auto) (0.0-0.2) /100WBC Sodium (135-145) mmol/L Potassium (3.3-5.1) mmol/L Chloride (96-108) mmol/L Carbon Dioxide (22-29) mmol/L Anion Gap (12-20) BUN (9-16) mg/dL Creatinine (0.5-1.4) mg/dL Estim Creat Clear Calc Estimated GFR Random Glucose (60-115) mg/dL Lactic Acid 0.8 (0.5-2.0) mmol/L Calcium (8.4-10.2) mg/dL Magnesium (1.6-2.6) mg/dL Total Bilirubin (0.0-1.0) mg/dL Direct Bilirubin (0.0-0.5) mg/dL AST (5-37) U/L ALT (0-40) U/L Alkaline Phosphatase (39-117) U/L Troponin I High Sens (<3.5-35.0) ng/L B-Natriuretic Peptide 42 (<100) pg/mL Total Protein (6.5-8.0) g/dL Albumin (3.5-5.0) g/dL <Elif Allen CNP - Last Filed: 12/01/22 18:49> Lab Results 12/01/22 12/01/22 12/01/22 Range/Units 15:00 15:00 15:00 WBC 8.4 (4.8-10.8) X10*3/uL RBC 4.85 (4.60-5.80) X10*6/uL Hgb 11.9 L (14.0-18.0) g/dl Hct 39.8 L (42.0-52.0) % MCV 82.1 (80.0-98.0) fL MCH 24.5 L (27.0-33.0) pg MCHC 29.9 L (31.0-36.0) g/dl RDW 16.7 H (11.0-16.0) % Plt Count 513 H D (160-400) X10*3/uL MPV 9.1 L (9.4-12.4) fL Immature Gran % (Auto) 0.5 H (0.0-0.4) % Neut % (Auto) 67.2 (45-73) % Lymph % (Auto) 19.5 L (20-40) % [place] % (Auto) 7.8 (2-11) % Eos % (Auto) 4.4 H (0-4) % Baso % (Auto) 0.6 (0-2) % Lymph # (Auto) 1.6 (1.2-4.9) X10*3/uL [place] # (Auto) 0.7 (0.1-1.2) X10*3/uL Eos # (Auto) 0.4 (0.0-0.4) X10*3/uL Baso # (Auto) 0.1 (0.0-0.2) X10*3/uL Abs Immat Gran (auto) 0.04 H (0.00-0.03) X10*3/uL Absolute Neuts (auto) 5.7 (2.0-8.3) x10*3/uL Absolute Nucleated RBC 0.000 (0.0-0.012) X10*3/uL Nucleated RBC % (auto) 0.0 (0.0-0.2) /100WBC Sodium 142 (135-145) mmol/L Potassium 4.3 (3.3-5.1) mmol/L Chloride 104 (96-108) mmol/L Carbon Dioxide 30 H (22-29) mmol/L Anion Gap 12 (12-20) BUN 6 L (9-16) mg/dL Creatinine 0.78 (0.5-1.4) mg/dL Estim Creat Clear Calc 59.1 Estimated GFR > 60 Random Glucose 100 (60-115) mg/dL Lactic Acid (0.5-2.0) mmol/L Calcium 9.5 D (8.4-10.2) mg/dL Magnesium 2.0 (1.6-2.6) mg/dL Total Bilirubin 0.3 (0.0-1.0) mg/dL Direct Bilirubin < 0.2 (0.0-0.5) mg/dL AST 19 (5-37) U/L ALT 9 (0-40) U/L Alkaline Phosphatase 115 (39-117) U/L Troponin I High Sens 4.4 (<3.5-35.0) ng/L B-Natriuretic Peptide (<100) pg/mL Total Protein 6.6 (6.5-8.0) g/dL Albumin 3.8 (3.5-5.0) g/dL 12/01/22 12/01/22 Range/Units 15:00 15:45 WBC (4.8-10.8) X10*3/uL RBC (4.60-5.80) X10*6/uL Hgb (14.0-18.0) g/dl Hct (42.0-52.0) % MCV (80.0-98.0) fL MCH (27.0-33.0) pg MCHC (31.0-36.0) g/dl RDW (11.0-16.0) % Plt Count (160-400) X10*3/uL MPV (9.4-12.4) fL Immature Gran % (Auto) (0.0-0.4) % Neut % (Auto) (45-73) % Lymph % (Auto) (20-40) % [place] % (Auto) (2-11) % Eos % (Auto) (0-4) % Baso % (Auto) (0-2) % Lymph # (Auto) (1.2-4.9) X10*3/uL [place] # (Auto) (0.1-1.2) X10*3/uL Eos # (Auto) (0.0-0.4) X10*3/uL Baso # (Auto) (0.0-0.2) X10*3/uL Abs Immat Gran (auto) (0.00-0.03) X10*3/uL Absolute Neuts (auto) (2.0-8.3) x10*3/uL Absolute Nucleated RBC (0.0-0.012) X10*3/uL Nucleated RBC % (auto) (0.0-0.2) /100WBC Sodium (135-145) mmol/L Potassium (3.3-5.1) mmol/L Chloride (96-108) mmol/L Carbon Dioxide (22-29) mmol/L Anion Gap (12-20) BUN (9-16) mg/dL Creatinine (0.5-1.4) mg/dL Estim Creat Clear Calc Estimated GFR Random Glucose (60-115) mg/dL Lactic Acid 0.8 (0.5-2.0) mmol/L Calcium (8.4-10.2) mg/dL Magnesium (1.6-2.6) mg/dL Total Bilirubin (0.0-1.0) mg/dL Direct Bilirubin (0.0-0.5) mg/dL AST (5-37) U/L ALT (0-40) U/L Alkaline Phosphatase (39-117) U/L Troponin I High Sens (<3.5-35.0) ng/L B-Natriuretic Peptide 42 (<100) pg/mL Total Protein (6.5-8.0) g/dL Albumin (3.5-5.0) g/dL <PHUONG Green - Last Filed: 12/01/22 20:00> Independent Interpretation I performed an independent interpretation of an: EKG and Plain X-Ray <Elif Allen CNP - Last Filed: 12/01/22 18:49> Interpretation: I personally interpreted patient's chest x-ray and agree with radiologist impression EKG Rate: 97 Rhythm:? Sinus rhythm with premature supraventricular complex Normal P waves.? Normal QRS complex.?? ST T wave :? No ST elevation, no ST depression, no T-wave inversion? qTC: 414 prior studies:? August 2022 The study has been interpreted contemporaneously by me. <Elif Allen CNP - Last Filed: 12/01/22 18:49> Independent Historian Clinical information obtained from an independent historian. History obtained from or confirmed by: Spouse (Patient's at bedside and confirms history, she also provided past medical history and recent HPI) <Elif Allen CNP - Last Filed: 12/01/22 18:49> External Record Review External record reviewed: Outpatient record (Reviewed pulmonology note from September 2022 Dr. Ellis regarding current treatment of COPD, and non-small cell lung carcinoma) <Elif Allen CNP - Last Filed: 12/01/22 18:49> Discharge Plan Discharge Clinical Impression: COPD (chronic obstructive pulmonary disease), Lung cancer <PHUONG Monsivais - Last Filed: 12/01/22 14:53> Patient Disposition: Home, Self-Care <PHUONG Monsivais - Last Filed: 12/01/22 14:53> Instructions: COPD (Chronic Obstructive Pulmonary Disease) (ED) <PHUONG Monsivais - Last Filed: 12/01/22 14:53> Additional Instructions: Take your medications as prescribed. If you were prescribed antibiotics today, it is important that you take your medication to their entirety, do not skip any doses, do not finish them early. Follow-up with your primary care provider this week. Return to the emergency department with new or worsening symptoms. Such as fevers, chills, chest pain, shortness of breath, nausea, vomiting, dizziness, headache, vision changes, lethargy In case of emergency call 911 CT/CT angio chest PE protocol IMPRESSION: 1. No evidence of pulmonary emboli. 2. Enlarging right lung masses, the largest cavitary. 3. COPD VTE: negative. <PHUONG Monsivais - Last Filed: 12/01/22 14:53> Prescriptions: New prednisone 20 mg tablet 20 mg PO DAILY 5 Days Qty: 5 0RF benzonatate 100 mg capsule 100 mg PO BID PRN (Reason: cough) Qty: 20 0RF albuterol sulfate 90 mcg/actuation aerosol powdr breath activated 2 inh inhalation Q4-6H PRN (Reason: shortness of breath or wheezing) Qty: 1 0RF No Action theophylline 400 mg tablet extended release 24 hr 400 mg PO DAILY Qty: 30 6RF albuterol sulfate [Ventolin HFA] 90 mcg/actuation HFA aerosol inhaler 2 puff PO Q6H PRN (Reason: shortness of breath or wheezing) Qty: 18 3RF metformin 500 mg tablet 500 mg PO DAILY levothyroxine 112 mcg tablet 112 mcg PO DAILY@0600 omeprazole 20 mg capsule,delayed release(DR/EC) 20 mg PO DAILY@0630 ipratropium-albuterol 0.5 mg-3 mg(2.5 mg base)/3 mL solution for nebulization 1 vial inhalation QID PRN (Reason: asthma) mirtazapine 7.5 mg Tablet 7.5 mg PO BEDTIME PRN (Reason: Sleep) cefuroxime axetil 250 mg tablet 250 mg PO BID 3 Days Qty: 6 0RF nabumetone 500 mg tablet 1 tab PO BID PRN (Reason: knee pain) duloxetine 30 mg capsule,delayed release(DR/EC) 1 cap PO DAILY montelukast 10 mg tablet 1 tab PO BEDTIME multivitamin with folic acid [Daily-Leslie (with folic acid)] 400 mcg tablet 1 tab PO DAILY Trelegy Ellipta 200-62.5-25 mcg blister with device 1 puff inhalation DAILY pyridoxine (vitamin B6) 100 mg tablet 100 mg PO DAILY 90 Days Qty: 90 1RF prednisone 20 mg tablet 20 mg PO DAILY 30 Days Qty: 30 4RF <PHUONG Monsivais - Last Filed: 12/01/22 14:53> Referrals: Physician,Unknown J [Primary Care Provider] - 2 days <PHUONG Monsivais - Last Filed: 12/01/22 14:53> Stand Alone Forms: Work/School Release <PHUONG Monsivais - Last Filed: 12/01/22 14:53>
[2022-12-01] MEDS: Albuterol Sulfate 7.5 MG, Albuterol Sulfate (0.083%) 2.5 MG 10 MG INHALE (14:59)
[2022-12-01 15:03] VITALS: PULSE 85; RESP 20; O2SAT 97
[2022-12-01 15:07] LABS: MANUAL DIFF FLAG NO
[2022-12-01] MEDS: Magnesium Sulfate/H2O 2 GM/50 ML PIGGYBACK IV (15:19)
[2022-12-01] MEDS: methylPREDNISolone Sod Succ 125 MG/2 ML VIAL IVPUSH (15:19)
[2022-12-01 15:21] LABS: Basophils Absolute Auto 0.1 X10*3/uL (0.0-0.2); Basophils Percent Auto 0.6 % (0-2); Eosinophils Absolute Auto 0.4 X10*3/uL (0.0-0.4); Eosinophils Percent Auto 4.4 % (0-4); Hematocrit 39.8 % (42.0-52.0); Hemoglobin 11.9 g/dl (14.0-18.0); Imm Gran Abs Auto 0.04 X10*3/uL (0.00-0.03); Imm Gran Pct Auto 0.5 % (0.0-0.4); Lymphocytes Absolute Auto 1.6 X10*3/uL (1.2-4.9); Lymphocytes Percent Auto 19.5 % (20-40); Mean Corpuscular HGB Conc 29.9 g/dl (31.0-36.0); Mean Corpuscular Hemoglobin 24.5 pg (27.0-33.0); Mean Corpuscular Volume 82.1 fL (80.0-98.0); Mean Platelet Volume 9.1 fL (9.4-12.4); Monocytes Absolute Auto 0.7 X10*3/uL (0.1-1.2); Monocytes Percent Auto 7.8 % (2-11); Neutrophils Absolute Auto 5.7 x10*3/uL (2.0-8.3); Neutrophils Percent Auto 67.2 % (45-73); Platelet Count 513 X10*3/uL (160-400); Red Blood Count 4.85 X10*6/uL (4.60-5.80); Red Cell Distribution Width 16.7 % (11.0-16.0); White Blood Count 8.4 X10*3/uL (4.8-10.8)
--- NOTE | 2022-12-01 15:27 | PC.NURSE ---
pt medicated per order, rt in room for updraft
[2022-12-01 15:35] LABS: Alanine Aminotransferase 9 U/L (0-40); Albumin Level 3.8 g/dL (3.5-5.0); Alkaline Phosphatase 115 U/L (39-117); Anion Gap 12 (12-20); Aspartate Amino Transferase 19 U/L (5-37); Bilirubin Direct < 0.2 mg/dL (0.0-0.5); Bilirubin Total 0.3 mg/dL (0.0-1.0); Blood Urea Nitrogen 6 mg/dL (9-16); Calcium 9.5 mg/dL (8.4-10.2); Carbon Dioxide 30 mmol/L (22-29); Chloride 104 mmol/L (96-108); Creatinine Clr Calc Pharmacy 59.1; Estimated Glomerular Filt Rate > 60; Glucose Random 100 mg/dL (60-115); Potassium 4.3 mmol/L (3.3-5.1); Sodium 142 mmol/L (135-145); Total Protein 6.6 g/dL (6.5-8.0)
[2022-12-01 15:42] LABS: Troponin-I High Sensitivity 4.4 ng/L (<3.5-35.0)
[2022-12-01 16:25] LABS: Lactic Acid 0.8 mmol/L (0.5-2.0)
[2022-12-01 16:50] VITALS: PULSE 111; O2SAT 95
--- NOTE | 2022-12-01 17:01 | PC.NURSE ---
patient a&ox3, lungs in/ex wheezing, patient ambulated with assist to bathroom- no dyspnea noted upon ambulating, vss, pt able to speak in full sentences, call grimes within reach, will continue to monitor
[2022-12-01 17:26] LABS: B Type Natriuretic Peptide 42 pg/mL (<100)
[2022-12-01] MEDS: iohexoL 350 MG/ML 100 ML INFUS..BTL IV (18:31)
[2022-12-01 19:07] VITALS: BP 124/57; PULSE 95; RESP 18; TEMP 36.8; O2SAT 92
--- NOTE | 2022-12-01 19:08 | PC.NURSE ---
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
[2022-12-01 20:00] VITALS: BP 127/56; PULSE 88; O2SAT 94
== END 2022-12-01 20:19 | disposition home or self-care (01) ==
PROVIDERS: Physician Assistant; Emergency Provider Student in an Organized Health Care Education/Training Program
DX: J44.9 Chronic obstructive pulmonary disease, unspecified (principal); C34.90 Malignant neoplasm of unspecified part of unspecified bronchus or lung; R06.02 Shortness of breath; E11.9 Type 2 diabetes mellitus without complications; I10 Essential (primary) hypertension; E78.00 Pure hypercholesterolemia, unspecified; J96.10 Chronic respiratory failure, unspecified whether with hypoxia or hypercapnia; F17.210 Nicotine dependence, cigarettes, uncomplicated; Z79.84 Long term (current) use of oral hypoglycemic drugs; Z79.899 Other long term (current) drug therapy
CPT/HCPCS: 36415; 71045; 71275; 80048; 80076; 83605; 83735; 83880; 84484; 85025; 87040; 93005; 94640; 96365; 96366; 96375; 99284; 99285; J2930; J3475; Q9967

== ENCOUNTER 2023-01-11 12:54 | Emergency (ER) | payer MEDICARE, MEDICAID, SELFPAY ==
--- NOTE | ~2023-01-11 | XR_ITS ---
EXAMINATION: XR CHEST CLINICAL INFORMATION: Shortness of breath COMPARISON: Previous chest x-ray 12/01/2022 and CTA from the same date TECHNIQUE: Frontal view of the chest was obtained. FINDINGS: The cardiac silhouette does not appear enlarged. The thoracic aorta is tortuous. Right lung mass projecting over the right hilum is unchanged. Smaller right lung mass or nodule projecting over the right cardiophrenic angle region is unchanged. Small subcentimeter calcified left lower lobe nodule probably representing a calcified granuloma unchanged. Right pleural thickening and pleural calcification. No pleural effusion or pneumothorax. No acute bone abnormality. XR/XR chest 1V IMPRESSION: Stable right lung nodules/masses. No change from November 2022 exam.
--- NOTE | 2023-01-11 13:07 | ED_ITS ---
HPI - SOB/Dyspnea General Chief Complaint: Dyspnea <PHUONG Jackson - Last Filed: 01/11/23 13:13> Stated Complaint: asthma diff breathing <PHUONG Jackson - Last Filed: 01/11/23 13:13> Time Seen by Provider: 01/11/23 13:20 <PHUONG Jackson - Last Filed: 01/11/23 13:13> Source: patient, family and old records reviewed <Coltete Peralta DO - Last Filed: 01/11/23 16:33> Mode of arrival: ambulatory <Colette Peralta DO - Last Filed: 01/11/23 16:33> Limitations: no limitations <Colette Peralta DO - Last Filed: 01/11/23 16:33> History of Present Illness HPI Narrative: 77 yo male well known to us with frequent admissions COPD and lung cancer still actively smoking, HLD, DM, chronic respiratory failure, prednisone dependent, nephrolithiasis here with c/o cough, wheezing and dyspnea since yesterday. He notes taking 15mg of prednisone and trying his nebs without relief. no fevers, his chest feels tight. no sick contacts <Colette Peralta DO - Last Filed: 01/11/23 16:33> MD elicited complaint: shortness of breath and cough <Colette Peralta DO - Last Filed: 01/11/23 16:33> Pertinent past history: COPD and asthma <Colette Peralta DO - Last Filed: 01/11/23 16:33> Onset (ago): day(s) (yesterday ) <Colette Peralta DO - Last Filed: 01/11/23 16:33> Context: smoke/fume exposure <Colette Peralta DO - Last Filed: 01/11/23 16:33> Timing: constant <Colette Peralta DO - Last Filed: 01/11/23 16:33> Severity: moderate <Colette Peralta DO - Last Filed: 01/11/23 16:33> Exacerbating factors: exertion and coughing <Colette Peralta DO - Last Filed: 01/11/23 16:33> Relieving factors: bronchodilators <Colette Peralta DO - Last Filed: 01/11/23 16:33> Known history of: COPD and asthma <Colette Kathryn, DO - Last Filed: 01/11/23 16:33> Associated symptoms: chest pain, cough and wheezing <Colette Wrightalejandro DO - Last Filed: 01/11/23 16:33> Treatment prior to arrival: none <Colette Peralta DO - Last Filed: 01/11/23 16:33> Related Data Home Medications: Home Medications Medication Instructions Recorded Confirmed metformin 500 mg tablet 500 mg PO DAILY 09/28/20 08/28/22 levothyroxine 112 mcg tablet 112 mcg PO DAILY@0600 12/01/20 08/28/22 omeprazole 20 mg capsule,delayed 20 mg PO DAILY@0630 12/01/20 08/28/22 release ipratropium 0.5 mg-albuterol 3 mg 1 vial inhalation QID PRN asthma 08/06/21 08/28/22 (2.5 mg base)/3 mL nebulization soln mirtazapine 7.5 mg tablet 7.5 mg PO BEDTIME PRN Sleep 11/16/21 08/28/22 duloxetine 30 mg capsule,delayed 1 cap PO DAILY 01/29/22 08/28/22 release nabumetone 500 mg tablet 1 tab PO BID PRN knee pain 01/29/22 08/28/22 montelukast 10 mg tablet 1 tab PO BEDTIME 05/28/22 08/28/22 fluticasone fur. 200 mcg-umeclid 1 puff inhalation DAILY 08/28/22 08/28/22 62.5 mcg-vilant 25 mcg inhalat.powder (Trelegy Ellipta) multivitamin with folic acid 400 1 tab PO DAILY 08/28/22 08/28/22 mcg tablet (Daily-Leslie (with folic acid)) Previous Rx's Medication Instructions Recorded theophylline 400 mg 400 mg PO DAILY #30 tabs 05/04/22 tablet,extended release 24 hr pyridoxine (vitamin B6) 100 mg 100 mg PO DAILY 90 days #90 tabs 08/05/22 tablet cefuroxime axetil 250 mg tablet 250 mg PO BID 3 days #6 tabs 09/17/22 prednisone 20 mg tablet 20 mg PO DAILY 30 days #30 tabs 10/07/22 Ventolin HFA 90 mcg/actuation 2 puff PO Q6H PRN shortness of 11/26/22 aerosol inhaler (albuterol sulfate) breath or wheezing #18 ea albuterol sulfate 90 mcg/actuation 2 inh inhalation Q4-6H PRN 12/01/22 breath activated powder inhaler shortness of breath or wheezing #1 ea benzonatate 100 mg capsule 100 mg PO BID PRN cough #20 caps 12/01/22 prednisone 20 mg tablet 20 mg PO DAILY 5 days #5 tabs 12/01/22 azithromycin 250 mg tablet See Rx Instructions PO .COMPLEX #6 01/11/23 tabs prednisone 20 mg tablet 40 mg PO DAILY 5 days #10 tabs 01/11/23 <PHUONG Jackson - Last Filed: 01/11/23 13:13> Allergies/Adverse Reactions: Allergies Allergy/AdvReac Type Severity Reaction Status Date / Time shellfish derived Allergy Severe ANAPHYLAXIS Verified 10/07/22 14:13 [SHELLFISH DERIVED] pollen extracts [POLLEN] Allergy Intermediate RUNNING Verified 10/07/22 14:13 NOSE, WATERY EYES, SNEEZING varenicline [VARENICLINE] AdvReac Unknown PALPITATION Verified 10/07/22 14:13 S <PHUONG Jackson - Last Filed: 01/11/23 13:13> Review of Systems Review of Systems: Constitutional : No Fever, No Chills ENT/Mouth : No Hoarseness, No sore throat, No Rhinorrhea Eyes: No Redness, No Discharge, No Vision Changes Cardiovascular : pos Chest Pain, positive SOB, positive Dyspnea on Exertion, No Edema Respiratory : positive Cough, No Sputum, positive Wheezing, Gastrointestinal : No Nausea, No Vomiting, No Diarrhea, No abdominal Pain Genitourinary : No Dysuria, No Hematuria Musculoskeletal : pos chronic joint pain, No Myalgias Skin : No rash Neuro : No Weakness, No Numbness, No Headache Psych : No anxiety, depression Heme/Lymph: No Bruising, No Bleeding Endocrine : No Polyuria, No Polydipsia All other systems reviewed and are negative <DO Aakash Donovan Last Filed: 01/11/23 16:33> [facility] Past Medical History Attestation statement: The following information was validated with the patient. <DO Aakash Donovan Last Filed: 01/11/23 16:33> Source: old records reviewed <DO Aakash Donovan Last Filed: 01/11/23 16:33> Medical History: Medical History Abnormal PET scan of colon Asthma Chronic respiratory failure COPD (chronic obstructive pulmonary disease) Diabetes GERD (gastroesophageal reflux disease) Hypertension Hypothyroidism Osteoarthritis Osteoporosis Oxygen dependent Sepsis Tobacco dependence Ureteral calculi <PHUONG Jackson - Last Filed: 01/11/23 13:13> Surgical History: Surgical History History of appendectomy History of cataract surgery (~2011) History of lithotripsy (~2008) History of lung biopsy (~2021) <PHUONG Jackson - Last Filed: 01/11/23 13:13> Family History Family History: Family History Father Throat cancer Brother Lung cancer Other Hypertension <PHUONG Jackson - Last Filed: 01/11/23 13:13> Social History Social History: Social History Household Members: Spouse Housing: Apartment Are you a primary acute care surgeon to a significant other at home: No Do you presently have visiting nurse or other home services: No Alcohol intake: unknown Patient Tobacco Use Status: Current everyday Tobacco user Tobacco use type: Cigarette Cigarette Packs Per Day: 0.5 Cigarettes Per Day: 8 Years Smoked: 60 Smoked in Last 30 Days: No e-Cigarette/Vaping Use: Currently Using Second Hand Smoke Exposure: No Use of substances other than those prescribed or required for medical reasons: No Advance Directives: No Advance Directives Information Provided: Yes Advance Directives Date on File: 12/18/20 service: No Current occupational status: unemployed and retired <PHUONG Jackson - Last Filed: 01/11/23 13:13> Physical Exam Vital Signs: Vital Signs: Last Vital Signs Temp 97.7 F 01/11/23 15:36 Pulse 93 01/11/23 15:36 Resp 18 01/11/23 15:36 BP 127/63 01/11/23 15:36 Pulse Ox 94 01/11/23 15:36 O2 Del Method 01/11/23 15:36 BMI result Body Mass Index 20.7 <PHUONG Jackson - Last Filed: 01/11/23 13:13> Vital Signs: Last Vital Signs Temp 97.7 F 01/11/23 15:36 Pulse 93 01/11/23 15:36 Resp 18 01/11/23 15:36 BP 127/63 01/11/23 15:36 Pulse Ox 94 01/11/23 15:36 O2 Del Method 01/11/23 15:36 BMI result Body Mass Index 20.7 <DO Aakash Donovan Last Filed: 01/11/23 16:33> Appearance: Alert. Oriented X3. No acute distress. Eyes: Pupils equal, round and reactive to light. ENT: Pharynx normal. Neck: Normal inspection. Neck supple. CVS: Normal heart rate and rhythm. Pulses normal. Respiratory: No respiratory distress. Breath sounds diminished with diffuse wheezes throughout Abdomen: Soft and nontender. Skin: Skin warm and dry. Normal skin color. Normal skin turgor. Extremities: No lower extremity edema. No calf ttp Neuro: Oriented X 3. No motor deficit. No sensory deficit. <DO Aakash Donovan Last Filed: 01/11/23 16:33> Course Course Course Narrative: RME - 77 yo male with history of COPD, lung cancer with multiple ER visits and hospitalizations for COPD exacerbations presenting to the ER for evaluation of difficulty breathing and shortness of breath. Increased WOB, +accessory muscle use, with wheezing in triage. Taken directly back to treatment room. EKG, CXR, labs ordered along with Duoneb and IV steroids for now. <PHUONG Jackson - Last Filed: 01/11/23 13:13> RME - 77 yo male with history of COPD, lung cancer with multiple ER visits and hospitalizations for COPD exacerbations presenting to the ER for evaluation of difficulty breathing and shortness of breath. Increased WOB, +accessory muscle use, with wheezing in triage. Taken directly back to treatment room. EKG, CXR, labs ordered along with Duoneb and IV steroids for now. <DO Aakash Donovan Last Filed: 01/11/23 16:33> Reevaluation(s) Reevaluation #1: no hypoxia, no increased RR no increased WOB. feels stable for DC at this time lungs diminished at baseline <DO Aakash Donovan Last Filed: 01/11/23 16:33> Medications Administered Discontinued Medications Generic Name Dose Route Start Last Admin Trade Name Freq PRN Reason Stop Dose Admin Albuterol Sulfate 8 puff 01/11/23 13:51 01/11/23 13:53 Albuterol Sulfate 90 Mcg 8 Gm Inhaler INHALE 01/11/23 13:52 8 puff ONCE ONE Administration Lactated Ringer's 500 mls @ 999 mls/hr 01/11/23 15:15 01/11/23 16:02 Lr IV 01/11/23 15:45 Infused .Q31M MEHDI Infusion Methylprednisolone Sodium Succinate 60 mg 01/11/23 13:11 01/11/23 14:47 Methylprednisolone Sod Succ 125 Mg/2 Ml Vial IVPUSH 01/11/23 13:12 60 mg ONCE ONE Administration <PHUONG Jackson - Last Filed: 01/11/23 13:13> Medications Administered Discontinued Medications Generic Name Dose Route Start Last Admin Trade Name Freq PRN Reason Stop Dose Admin Albuterol Sulfate 8 puff 01/11/23 13:51 01/11/23 13:53 Albuterol Sulfate 90 Mcg 8 Gm Inhaler INHALE 01/11/23 13:52 8 puff ONCE ONE Administration Lactated Ringer's 500 mls @ 999 mls/hr 01/11/23 15:15 01/11/23 16:02 Lr IV 01/11/23 15:45 Infused .Q31M MEHDI Infusion Methylprednisolone Sodium Succinate 60 mg 01/11/23 13:11 01/11/23 14:47 Methylprednisolone Sod Succ 125 Mg/2 Ml Vial IVPUSH 01/11/23 13:12 60 mg ONCE ONE Administration <Colette Peralta DO - Last Filed: 01/11/23 16:33> Medical Decision Making Medical Decision Making MDM Narrative: 77 yo male well known to us with frequent admissions COPD and lung cancer still actively smoking, HLD, DM, chronic respiratory failure, prednisone dependent, nephrolithiasis here with c/o wheezing and shortness of breath that is typical for him. His pressures are slightly low as usual which is normal for him he is very thin and frail - will obtain basic labs, CXR, neb and IV s teroids. He looks pretty good today from his baseline ED presentation may improve while in ED. Dispo per results and clinical improvement. <Colette [place], DO - Last Filed: 01/11/23 16:33> Differential Diagnosis Differential Diagnoses: The differential diagnosis associated with the presentation includes <Colette PeraltaDO - Last Filed: 01/11/23 16:33> COPD, asthma, bronchitis <Colette Peralta DO - Last Filed: 01/11/23 16:33> Admission/Observation Consideration of admission/observation: Escalation of care including admission/observation considered <Colette PeraltaDO - Last Filed: 01/11/23 16:33> Lab Data MDM Lab Attestation statement: I reviewed the patient's lab results. <Colette PeraltaDO - Last Filed: 01/11/23 16:33> Result Diagrams: 01/11/23 14:40 01/11/23 14:40 <PHUONG Jackson - Last Filed: 01/11/23 13:13> Labs: Lab Results 01/11/23 01/11/23 01/11/23 Range/Units 14:40 14:40 14:40 WBC 11.0 H (4.8-10.8) X10*3/uL RBC 4.38 L (4.60-5.80) X10*6/uL Hgb 10.4 L (14.0-18.0) g/dl Hct 34.2 L (42.0-52.0) % MCV 78.1 L (80.0-98.0) fL MCH 23.7 L (27.0-33.0) pg MCHC 30.4 L (31.0-36.0) g/dl RDW 16.6 H (11.0-16.0) % Plt Count 401 H (160-400) X10*3/uL MPV 9.5 (9.4-12.4) fL Immature Gran % (Auto) 0.5 H (0.0-0.4) % Neut % (Auto) 81.0 H (45-73) % Lymph % (Auto) 10.3 L (20-40) % [place] % (Auto) 6.5 (2-11) % Eos % (Auto) 1.3 (0-4) % Baso % (Auto) 0.4 (0-2) % Lymph # (Auto) 1.1 L (1.2-4.9) X10*3/uL [place] # (Auto) 0.7 (0.1-1.2) X10*3/uL Eos # (Auto) 0.1 (0.0-0.4) X10*3/uL Baso # (Auto) 0.0 (0.0-0.2) X10*3/uL Abs Immat Gran (auto) 0.05 H (0.00-0.03) X10*3/uL Absolute Neuts (auto) 8.9 H (2.0-8.3) x10*3/uL Absolute Nucleated RBC 0.000 (0.0-0.012) X10*3/uL Nucleated RBC % (auto) 0.0 (0.0-0.2) /100WBC VBG pH (7.32-7.43) VBG pCO2 mmHg VBG pO2 mmHg VBG HCO3 (22-26) mmol/L VBG O2 Saturation % VBG Base Excess mmol/L Sodium 137 (135-145) mmol/L Potassium 4.3 (3.3-5.1) mmol/L Chloride 102 (96-108) mmol/L Carbon Dioxide 23 (22-29) mmol/L Anion Gap 16 (12-20) BUN 8 L (9-16) mg/dL Creatinine 0.76 (0.5-1.4) mg/dL Estim Creat Clear Calc 67.3 Estimated GFR > 60 Random Glucose 106 (60-115) mg/dL Lactic Acid 0.9 (0.5-2.0) mmol/L Calcium 8.7 D (8.4-10.2) mg/dL Magnesium 2.0 (1.6-2.6) mg/dL Total Bilirubin 1.1 H (0.0-1.0) mg/dL Direct Bilirubin 0.2 (0.0-0.5) mg/dL AST 19 (5-37) U/L ALT 9 (0-40) U/L Alkaline Phosphatase 97 (39-117) U/L Troponin I High Sens (<3.5-35.0) ng/L B-Natriuretic Peptide (<100) pg/mL Total Protein 6.0 L (6.5-8.0) g/dL Albumin 3.5 (3.5-5.0) g/dL Urine Color Urine Appearance Urine pH (5.0-9.0) Ur Specific [place] (1.005-1.025) Urine Protein (Neg-Trace) mg/dL Urine Glucose (UA) (Negative) mg/dL Urine Ketones (Negative) mg/dL Urine Blood (Negative) Urine Nitrite (Negative) Ur Leukocyte Esterase (Negative) Urine RBC (0-2) /HPF Urine WBC (0-5) /HPF Ur Squamous Epith Cells (0-2) /HPF Urine Bacteria (None Seen) Hyaline Casts (0-2) /LPF 01/11/23 01/11/23 01/11/23 Range/Units 14:40 14:40 14:47 WBC (4.8-10.8) X10*3/uL RBC (4.60-5.80) X10*6/uL Hgb (14.0-18.0) g/dl Hct (42.0-52.0) % MCV (80.0-98.0) fL MCH (27.0-33.0) pg MCHC (31.0-36.0) g/dl RDW (11.0-16.0) % Plt Count (160-400) X10*3/uL MPV (9.4-12.4) fL Immature Gran % (Auto) (0.0-0.4) % Neut % (Auto) (45-73) % Lymph % (Auto) (20-40) % [place] % (Auto) (2-11) % Eos % (Auto) (0-4) % Baso % (Auto) (0-2) % Lymph # (Auto) (1.2-4.9) X10*3/uL [place] # (Auto) (0.1-1.2) X10*3/uL Eos # (Auto) (0.0-0.4) X10*3/uL Baso # (Auto) (0.0-0.2) X10*3/uL Abs Immat Gran (auto) (0.00-0.03) X10*3/uL Absolute Neuts (auto) (2.0-8.3) x10*3/uL Absolute Nucleated RBC (0.0-0.012) X10*3/uL Nucleated RBC % (auto) (0.0-0.2) /100WBC VBG pH 7.56 H (7.32-7.43) VBG pCO2 30 mmHg VBG pO2 96 mmHg VBG HCO3 27 H (22-26) mmol/L VBG O2 Saturation 99.0 % VBG Base Excess 6.0 mmol/L Sodium (135-145) mmol/L Potassium (3.3-5.1) mmol/L Chloride (96-108) mmol/L Carbon Dioxide (22-29) mmol/L Anion Gap (12-20) BUN (9-16) mg/dL Creatinine (0.5-1.4) mg/dL Estim Creat Clear Calc Estimated GFR Random Glucose (60-115) mg/dL Lactic Acid (0.5-2.0) mmol/L Calcium (8.4-10.2) mg/dL Magnesium (1.6-2.6) mg/dL Total Bilirubin (0.0-1.0) mg/dL Direct Bilirubin (0.0-0.5) mg/dL AST (5-37) U/L ALT (0-40) U/L Alkaline Phosphatase (39-117) U/L Troponin I High Sens 3.7 (<3.5-35.0) ng/L B-Natriuretic Peptide < 10 (<100) pg/mL Total Protein (6.5-8.0) g/dL Albumin (3.5-5.0) g/dL Urine Color Urine Appearance Urine pH (5.0-9.0) Ur Specific [place] (1.005-1.025) Urine Protein (Neg-Trace) mg/dL Urine Glucose (UA) (Negative) mg/dL Urine Ketones (Negative) mg/dL Urine Blood (Negative) Urine Nitrite (Negative) Ur Leukocyte Esterase (Negative) Urine RBC (0-2) /HPF Urine WBC (0-5) /HPF Ur Squamous Epith Cells (0-2) /HPF Urine Bacteria (None Seen) Hyaline Casts (0-2) /LPF 01/11/23 Range/Units 15:43 WBC (4.8-10.8) X10*3/uL RBC (4.60-5.80) X10*6/uL Hgb (14.0-18.0) g/dl Hct (42.0-52.0) % MCV (80.0-98.0) fL MCH (27.0-33.0) pg MCHC (31.0-36.0) g/dl RDW (11.0-16.0) % Plt Count (160-400) X10*3/uL MPV (9.4-12.4) fL Immature Gran % (Auto) (0.0-0.4) % Neut % (Auto) (45-73) % Lymph % (Auto) (20-40) % [place] % (Auto) (2-11) % Eos % (Auto) (0-4) % Baso % (Auto) (0-2) % Lymph # (Auto) (1.2-4.9) X10*3/uL [place] # (Auto) (0.1-1.2) X10*3/uL Eos # (Auto) (0.0-0.4) X10*3/uL Baso # (Auto) (0.0-0.2) X10*3/uL Abs Immat Gran (auto) (0.00-0.03) X10*3/uL Absolute Neuts (auto) (2.0-8.3) x10*3/uL Absolute Nucleated RBC (0.0-0.012) X10*3/uL Nucleated RBC % (auto) (0.0-0.2) /100WBC VBG pH (7.32-7.43) VBG pCO2 mmHg VBG pO2 mmHg VBG HCO3 (22-26) mmol/L VBG O2 Saturation % VBG Base Excess mmol/L Sodium (135-145) mmol/L Potassium (3.3-5.1) mmol/L Chloride (96-108) mmol/L Carbon Dioxide (22-29) mmol/L Anion Gap (12-20) BUN (9-16) mg/dL Creatinine (0.5-1.4) mg/dL Estim Creat Clear Calc Estimated GFR Random Glucose (60-115) mg/dL Lactic Acid (0.5-2.0) mmol/L Calcium (8.4-10.2) mg/dL Magnesium (1.6-2.6) mg/dL Total Bilirubin (0.0-1.0) mg/dL Direct Bilirubin (0.0-0.5) mg/dL AST (5-37) U/L ALT (0-40) U/L Alkaline Phosphatase (39-117) U/L Troponin I High Sens (<3.5-35.0) ng/L B-Natriuretic Peptide (<100) pg/mL Total Protein (6.5-8.0) g/dL Albumin (3.5-5.0) g/dL Urine Color Yellow Urine Appearance Clear Urine pH 6.5 (5.0-9.0) Ur Specific [place] 1.020 (1.005-1.025) Urine Protein 30 (1+) H (Neg-Trace) mg/dL Urine Glucose (UA) Negative (Negative) mg/dL Urine Ketones 15 (Negative) mg/dL Urine Blood Negative (Negative) Urine Nitrite Negative (Negative) Ur Leukocyte Esterase Trace H (Negative) Urine RBC 0-2 (0-2) /HPF Urine WBC 0-5 (0-5) /HPF Ur Squamous Epith Cells 0-2 (0-2) /HPF Urine Bacteria None Seen (None Seen) Hyaline Casts 0-2 (0-2) /LPF <PHUONG Jackson - Last Filed: 01/11/23 13:13> Lab Results 01/11/23 01/11/23 01/11/23 Range/Units 14:40 14:40 14:40 WBC 11.0 H (4.8-10.8) X10*3/uL RBC 4.38 L (4.60-5.80) X10*6/uL Hgb 10.4 L (14.0-18.0) g/dl Hct 34.2 L (42.0-52.0) % MCV 78.1 L (80.0-98.0) fL MCH 23.7 L (27.0-33.0) pg MCHC 30.4 L (31.0-36.0) g/dl RDW 16.6 H (11.0-16.0) % Plt Count 401 H (160-400) X10*3/uL MPV 9.5 (9.4-12.4) fL Immature Gran % (Auto) 0.5 H (0.0-0.4) % Neut % (Auto) 81.0 H (45-73) % Lymph % (Auto) 10.3 L (20-40) % [place] % (Auto) 6.5 (2-11) % Eos % (Auto) 1.3 (0-4) % Baso % (Auto) 0.4 (0-2) % Lymph # (Auto) 1.1 L (1.2-4.9) X10*3/uL [place] # (Auto) 0.7 (0.1-1.2) X10*3/uL Eos # (Auto) 0.1 (0.0-0.4) X10*3/uL Baso # (Auto) 0.0 (0.0-0.2) X10*3/uL Abs Immat Gran (auto) 0.05 H (0.00-0.03) X10*3/uL Absolute Neuts (auto) 8.9 H (2.0-8.3) x10*3/uL Absolute Nucleated RBC 0.000 (0.0-0.012) X10*3/uL Nucleated RBC % (auto) 0.0 (0.0-0.2) /100WBC VBG pH (7.32-7.43) VBG pCO2 mmHg VBG pO2 mmHg VBG HCO3 (22-26) mmol/L VBG O2 Saturation % VBG Base Excess mmol/L Sodium 137 (135-145) mmol/L Potassium 4.3 (3.3-5.1) mmol/L Chloride 102 (96-108) mmol/L Carbon Dioxide 23 (22-29) mmol/L Anion Gap 16 (12-20) BUN 8 L (9-16) mg/dL Creatinine 0.76 (0.5-1.4) mg/dL Estim Creat Clear Calc 67.3 Estimated GFR > 60 Random Glucose 106 (60-115) mg/dL Lactic Acid 0.9 (0.5-2.0) mmol/L Calcium 8.7 D (8.4-10.2) mg/dL Magnesium 2.0 (1.6-2.6) mg/dL Total Bilirubin 1.1 H (0.0-1.0) mg/dL Direct Bilirubin 0.2 (0.0-0.5) mg/dL AST 19 (5-37) U/L ALT 9 (0-40) U/L Alkaline Phosphatase 97 (39-117) U/L Troponin I High Sens (<3.5-35.0) ng/L B-Natriuretic Peptide (<100) pg/mL Total Protein 6.0 L (6.5-8.0) g/dL Albumin 3.5 (3.5-5.0) g/dL Urine Color Urine Appearance Urine pH (5.0-9.0) Ur Specific [place] (1.005-1.025) Urine Protein (Neg-Trace) mg/dL Urine Glucose (UA) (Negative) mg/dL Urine Ketones (Negative) mg/dL Urine Blood (Negative) Urine Nitrite (Negative) Ur Leukocyte Esterase (Negative) Urine RBC (0-2) /HPF Urine WBC (0-5) /HPF Ur Squamous Epith Cells (0-2) /HPF Urine Bacteria (None Seen) Hyaline Casts (0-2) /LPF 01/11/23 01/11/23 01/11/23 Range/Units 14:40 14:40 14:47 WBC (4.8-10.8) X10*3/uL RBC (4.60-5.80) X10*6/uL Hgb (14.0-18.0) g/dl Hct (42.0-52.0) % MCV (80.0-98.0) fL MCH (27.0-33.0) pg MCHC (31.0-36.0) g/dl RDW (11.0-16.0) % Plt Count (160-400) X10*3/uL MPV (9.4-12.4) fL Immature Gran % (Auto) (0.0-0.4) % Neut % (Auto) (45-73) % Lymph % (Auto) (20-40) % [place] % (Auto) (2-11) % Eos % (Auto) (0-4) % Baso % (Auto) (0-2) % Lymph # (Auto) (1.2-4.9) X10*3/uL [place] # (Auto) (0.1-1.2) X10*3/uL Eos # (Auto) (0.0-0.4) X10*3/uL Baso # (Auto) (0.0-0.2) X10*3/uL Abs Immat Gran (auto) (0.00-0.03) X10*3/uL Absolute Neuts (auto) (2.0-8.3) x10*3/uL Absolute Nucleated RBC (0.0-0.012) X10*3/uL Nucleated RBC % (auto) (0.0-0.2) /100WBC VBG pH 7.56 H (7.32-7.43) VBG pCO2 30 mmHg VBG pO2 96 mmHg VBG HCO3 27 H (22-26) mmol/L VBG O2 Saturation 99.0 % VBG Base Excess 6.0 mmol/L Sodium (135-145) mmol/L Potassium (3.3-5.1) mmol/L Chloride (96-108) mmol/L Carbon Dioxide (22-29) mmol/L Anion Gap (12-20) BUN (9-16) mg/dL Creatinine (0.5-1.4) mg/dL Estim Creat Clear Calc Estimated GFR Random Glucose (60-115) mg/dL Lactic Acid (0.5-2.0) mmol/L Calcium (8.4-10.2) mg/dL Magnesium (1.6-2.6) mg/dL Total Bilirubin (0.0-1.0) mg/dL Direct Bilirubin (0.0-0.5) mg/dL AST (5-37) U/L ALT (0-40) U/L Alkaline Phosphatase (39-117) U/L Troponin I High Sens 3.7 (<3.5-35.0) ng/L B-Natriuretic Peptide < 10 (<100) pg/mL Total Protein (6.5-8.0) g/dL Albumin (3.5-5.0) g/dL Urine Color Urine Appearance Urine pH (5.0-9.0) Ur Specific [place] (1.005-1.025) Urine Protein (Neg-Trace) mg/dL Urine Glucose (UA) (Negative) mg/dL Urine Ketones (Negative) mg/dL Urine Blood (Negative) Urine Nitrite (Negative) Ur Leukocyte Esterase (Negative) Urine RBC (0-2) /HPF Urine WBC (0-5) /HPF Ur Squamous Epith Cells (0-2) /HPF Urine Bacteria (None Seen) Hyaline Casts (0-2) /LPF 01/11/23 Range/Units 15:43 WBC (4.8-10.8) X10*3/uL RBC (4.60-5.80) X10*6/uL Hgb (14.0-18.0) g/dl Hct (42.0-52.0) % MCV (80.0-98.0) fL MCH (27.0-33.0) pg MCHC (31.0-36.0) g/dl RDW (11.0-16.0) % Plt Count (160-400) X10*3/uL MPV (9.4-12.4) fL Immature Gran % (Auto) (0.0-0.4) % Neut % (Auto) (45-73) % Lymph % (Auto) (20-40) % [place] % (Auto) (2-11) % Eos % (Auto) (0-4) % Baso % (Auto) (0-2) % Lymph # (Auto) (1.2-4.9) X10*3/uL [place] # (Auto) (0.1-1.2) X10*3/uL Eos # (Auto) (0.0-0.4) X10*3/uL Baso # (Auto) (0.0-0.2) X10*3/uL Abs Immat Gran (auto) (0.00-0.03) X10*3/uL Absolute Neuts (auto) (2.0-8.3) x10*3/uL Absolute Nucleated RBC (0.0-0.012) X10*3/uL Nucleated RBC % (auto) (0.0-0.2) /100WBC VBG pH (7.32-7.43) VBG pCO2 mmHg VBG pO2 mmHg VBG HCO3 (22-26) mmol/L VBG O2 Saturation % VBG Base Excess mmol/L Sodium (135-145) mmol/L Potassium (3.3-5.1) mmol/L Chloride (96-108) mmol/L Carbon Dioxide (22-29) mmol/L Anion Gap (12-20) BUN (9-16) mg/dL Creatinine (0.5-1.4) mg/dL Estim Creat Clear Calc Estimated GFR Random Glucose (60-115) mg/dL Lactic Acid (0.5-2.0) mmol/L Calcium (8.4-10.2) mg/dL Magnesium (1.6-2.6) mg/dL Total Bilirubin (0.0-1.0) mg/dL Direct Bilirubin (0.0-0.5) mg/dL AST (5-37) U/L ALT (0-40) U/L Alkaline Phosphatase (39-117) U/L Troponin I High Sens (<3.5-35.0) ng/L B-Natriuretic Peptide (<100) pg/mL Total Protein (6.5-8.0) g/dL Albumin (3.5-5.0) g/dL Urine Color Yellow Urine Appearance Clear Urine pH 6.5 (5.0-9.0) Ur Specific [place] 1.020 (1.005-1.025) Urine Protein 30 (1+) H (Neg-Trace) mg/dL Urine Glucose (UA) Negative (Negative) mg/dL Urine Ketones 15 (Negative) mg/dL Urine Blood Negative (Negative) Urine Nitrite Negative (Negative) Ur Leukocyte Esterase Trace H (Negative) Urine RBC 0-2 (0-2) /HPF Urine WBC 0-5 (0-5) /HPF Ur Squamous Epith Cells 0-2 (0-2) /HPF Urine Bacteria None Seen (None Seen) Hyaline Casts 0-2 (0-2) /LPF <Colette Peralta DO - Last Filed: 01/11/23 16:33> Independent Interpretation I performed an independent interpretation of an: EKG and Plain X-Ray <Colette Peralta DO - Last Filed: 01/11/23 16:33> Interpretation: Rate: 98 Rhythm: NSR [place]: normal Normal P waves. Normal JOHAN. Normal QRS complex. ST T wave : normal no [place] , inverted aVL qTC: normal prior studies: no acute ischemia The study has been interpreted contemporaneously by me. . <Colette Peralta DO - Last Filed: 01/11/23 16:33> Radiology Impression Discussion of test interpretation with radiology: I have reviewed the radiologist's reading. <Colette Peralta DO - Last Filed: 01/11/23 16:33> Independent Historian Clinical information obtained from an independent historian. History obtained from or confirmed by: Spouse <Colette Peralta DO - Last Filed: 01/11/23 16:33> External Record Review External record reviewed: Inpatient record <Colette Peralta DO - Last Filed: 01/11/23 16:33> Prescription Management I considered prescription management with: Antibiotic and Other <Colette Peralta DO - Last Filed: 01/11/23 16:33> Chronic Conditions Patient?s care impacted by: Other <Colette Peralta DO - Last Filed: 01/11/23 16:33> Social Determinants Patient?s care significantly limited by Social Determinants of Health including: Other Social Determinant of Health <Colette Peralta DO - Last Filed: 01/11/23 16:33> Discharge Plan Discharge Clinical Impression: COPD (chronic obstructive pulmonary disease) Qualifiers: COPD type: COPD with acute exacerbation Qualified Code(s): J44.1 - Chronic obstructive pulmonary disease with (acute) exacerbation <PHUONG Jackson - Last Filed: 01/11/23 13:13> Patient Disposition: Home, Self-Care <PHUONG Jackson - Last Filed: 01/11/23 13:13> Instructions: COPD (Chronic Obstructive Pulmonary Disease) (ED) <PHUONG Jackson - Last Filed: 01/11/23 13:13> Additional Instructions: aumente la prednisona a 40 mg abdoul los pr?ximos 5 d?as. regrese por aumento del trabajo respiratorio, dolor en el pecho, fiebre, empeoramiento de los s?ntomas o cualquier otra inquietud. <PHUONG Jackson - Last Filed: 01/11/23 13:13> Prescriptions: New azithromycin 250 mg tablet See Rx Instructions .ROUTE .COMPLEX Qty: 6 0RF Rx Instructions: For 250 mg dose pack: take 500 mg today (day 1), then 250 mg for 4 days (days 2-5) prednisone 20 mg tablet 40 mg PO DAILY 5 Days Qty: 10 0RF No Action theophylline 400 mg tablet extended release 24 hr 400 mg PO DAILY Qty: 30 6RF albuterol sulfate [Ventolin HFA] 90 mcg/actuation HFA aerosol inhaler 2 puff PO Q6H PRN (Reason: shortness of breath or wheezing) Qty: 18 3RF metformin 500 mg tablet 500 mg PO DAILY levothyroxine 112 mcg tablet 112 mcg PO DAILY@0600 omeprazole 20 mg capsule,delayed release(DR/EC) 20 mg PO DAILY@0630 ipratropium-albuterol 0.5 mg-3 mg(2.5 mg base)/3 mL solution for nebulization 1 vial inhalation QID PRN (Reason: asthma) mirtazapine 7.5 mg Tablet 7.5 mg PO BEDTIME PRN (Reason: Sleep) cefuroxime axetil 250 mg tablet 250 mg PO BID 3 Days Qty: 6 0RF prednisone 20 mg tablet 20 mg PO DAILY 5 Days Qty: 5 0RF benzonatate 100 mg capsule 100 mg PO BID PRN (Reason: cough) Qty: 20 0RF albuterol sulfate 90 mcg/actuation aerosol powdr breath activated 2 inh inhalation Q4-6H PRN (Reason: shortness of breath or wheezing) Qty: 1 0RF nabumetone 500 mg tablet 1 tab PO BID PRN (Reason: knee pain) duloxetine 30 mg capsule,delayed release(DR/EC) 1 cap PO DAILY montelukast 10 mg tablet 1 tab PO BEDTIME multivitamin with folic acid [Daily-Leslie (with folic acid)] 400 mcg tablet 1 tab PO DAILY Trelegy Ellipta 200-62.5-25 mcg blister with device 1 puff inhalation DAILY pyridoxine (vitamin B6) 100 mg tablet 100 mg PO DAILY 90 Days Qty: 90 1RF prednisone 20 mg tablet 20 mg PO DAILY 30 Days Qty: 30 4RF <PHUONG Jackson - Last Filed: 01/11/23 13:13> Interventions: ED Discharge Assessment Last Done: 01/11/23 16:32 <PHUONG Jackson - Last Filed: 01/11/23 13:13> Discharge Date/Time: 01/11/23 16:32 <PHUONG Jackson - Last Filed: 01/11/23 13:13>
[2023-01-11 13:08] VITALS: BP 90/57; PULSE 105; RESP 28; TEMP 37.2; O2SAT 94; BMI 20.7
--- NOTE | 2023-01-11 13:11 | ECG_ITS ---
Test Reason : DYSPNEA Blood Pressure : / mmHG Vent. Rate : 098 BPM Atrial Rate : 098 BPM P-R Int : 112 ms QRS Dur : 084 ms QT Int : 312 ms P-R-T Axes : 079 050 068 degrees QTc Int : 398 ms Normal sinus rhythm Normal ECG When compared with ECG of 01-DEC-2022 15:25, Premature supraventricular complexes are no longer Present Referred By: Dee Perez Electronically Signed By:Anoop Gentile
[2023-01-11 13:45] VITALS: PULSE 78; RESP 18; O2SAT 93
[2023-01-11] MEDS: Albuterol Sulfate 90 MCG 8 GM INHALER 8 PUFF INHALE (13:53)
--- NOTE | 2023-01-11 13:58 | PC.RT ---
[facility] Pt has not been swabbed for covid. Pt in no resp distress. Had provider change to albuterol 8 puffs. pt sats were 90% r/a and increased to 93% after tx and rr 18.
[2023-01-11 14:46] LABS: MANUAL DIFF FLAG NO
[2023-01-11] MEDS: methylPREDNISolone Sod Succ 125 MG/2 ML VIAL 60 MG IVPUSH (14:47)
[2023-01-11 14:50] LABS: Basophils Percent Auto 0.4 % (0-2); Eosinophils Absolute Auto 0.1 X10*3/uL (0.0-0.4); Eosinophils Percent Auto 1.3 % (0-4); Hematocrit 34.2 % (42.0-52.0); Hemoglobin 10.4 g/dl (14.0-18.0); Imm Gran Abs Auto 0.05 X10*3/uL (0.00-0.03); Imm Gran Pct Auto 0.5 % (0.0-0.4); Lymphocytes Absolute Auto 1.1 X10*3/uL (1.2-4.9); Lymphocytes Percent Auto 10.3 % (20-40); Mean Corpuscular HGB Conc 30.4 g/dl (31.0-36.0); Mean Corpuscular Hemoglobin 23.7 pg (27.0-33.0); Mean Corpuscular Volume 78.1 fL (80.0-98.0); Mean Platelet Volume 9.5 fL (9.4-12.4); Monocytes Absolute Auto 0.7 X10*3/uL (0.1-1.2); Monocytes Percent Auto 6.5 % (2-11); Neutrophils Absolute Auto 8.9 x10*3/uL (2.0-8.3); Platelet Count 401 X10*3/uL (160-400); Red Blood Count 4.38 X10*6/uL (4.60-5.80); Red Cell Distribution Width 16.6 % (11.0-16.0)
[2023-01-11 14:52] LABS: Venous Blood Gas Refer to POC result
[2023-01-11 14:55] LABS: VBG HCO3 27 mmol/L (22-26); VBG pCO2 30 mmHg; VBG pH 7.56 (7.32-7.43); VBG pO2 96 mmHg
[2023-01-11 15:06] LABS: Lactic Acid 0.9 mmol/L (0.5-2.0)
[2023-01-11 15:10] LABS: Alanine Aminotransferase 9 U/L (0-40); Albumin Level 3.5 g/dL (3.5-5.0); Alkaline Phosphatase 97 U/L (39-117); Anion Gap 16 (12-20); Aspartate Amino Transferase 19 U/L (5-37); Bilirubin Direct 0.2 mg/dL (0.0-0.5); Bilirubin Total 1.1 mg/dL (0.0-1.0); Blood Urea Nitrogen 8 mg/dL (9-16); Calcium 8.7 mg/dL (8.4-10.2); Carbon Dioxide 23 mmol/L (22-29); Chloride 102 mmol/L (96-108); Creatinine Clr Calc Pharmacy 67.3; Estimated Glomerular Filt Rate > 60; Glucose Random 106 mg/dL (60-115); Potassium 4.3 mmol/L (3.3-5.1); Sodium 137 mmol/L (135-145)
[2023-01-11 15:13] LABS: B Type Natriuretic Peptide < 10 pg/mL (<100)
[2023-01-11 15:21] LABS: Troponin-I High Sensitivity 3.7 ng/L (<3.5-35.0)
[2023-01-11] MEDS: Lactated Ringers 500 ML 999 ML IV (15:27)
[2023-01-11 15:36] VITALS: BP 127/63; PULSE 93; RESP 18; TEMP 36.5; O2SAT 94
[2023-01-11 15:53] LABS: Appearance Urine Clear; Color Urine Yellow; Glucose Urine UA Negative (Negative); Leukocyte Esterase Urine Trace (Negative); Nitrite Urine Negative (Negative); PH 6.5 (5.0-9.0); UMIC TRIGGER UACC YES; Urine Blood Negative (Negative); Urine Ketones 15 mg/dL (Negative); Urine Protein 30 (1+) mg/dL (Neg-Trace)
[2023-01-11 15:58] LABS: Bacteria Urine None Seen (None Seen); Hyaline Casts Urine 0-2 /LPF (0-2); RBC Urine 0-2 /HPF (0-2); Squamous Epithelial Cell Urine 0-2 /HPF (0-2); WBC Urine 0-5 /HPF (0-5)
--- NOTE | 2023-01-11 16:02 | PC.NURSE ---
Cally CARROLLx 4 primarily Urdu speaking no distress noted does have soem wheezing and tightness but reports feeling better. Tolerating IVF with no ill effect will CTM
[2023-01-11 16:37] LABS: Influenza A PCR NEGATIVE (Negative); Influenza B PCR NEGATIVE (Negative); Resp Syncy Virus RNA Qual PCR NEGATIVE (Negative); SARS COV2 PCR INHOUSE NEGATIVE (Negative)
== END 2023-01-11 16:32 | disposition home or self-care (01) ==
PROVIDERS: Physician Assistant; Emergency Provider Emergency Medicine
DX: J44.1 Chronic obstructive pulmonary disease with (acute) exacerbation (principal); R06.02 Shortness of breath; Z20.828 Contact with and (suspected) exposure to other viral communicable diseases; Z20.822 Contact with and (suspected) exposure to COVID-19; E11.9 Type 2 diabetes mellitus without complications; E78.00 Pure hypercholesterolemia, unspecified; C34.90 Malignant neoplasm of unspecified part of unspecified bronchus or lung; F17.200 Nicotine dependence, unspecified, uncomplicated; R63.6 Underweight; Z68.20 Body mass index [BMI] 20.0-20.9, adult; Z99.81 Dependence on supplemental oxygen; Z79.84 Long term (current) use of oral hypoglycemic drugs; Z79.899 Other long term (current) drug therapy
CPT/HCPCS: 0241U; 71045; 80048; 80076; 81001; 82803; 83605; 83735; 83880; 84484; 85025; 87040; 93005; 94640; 96361; 96374; 99284; 99285; J2930

== ENCOUNTER 2023-03-13 04:41 | Emergency (ER) | payer MEDICARE, MEDICAID, SELFPAY ==
--- NOTE | 2023-03-13 | ECG_ITS ---
Test Reason : CHEST PAIN Blood Pressure : / mmHG Vent. Rate : 092 BPM Atrial Rate : 092 BPM P-R Int : 120 ms QRS Dur : 086 ms QT Int : 314 ms P-R-T Axes : 082 066 072 degrees QTc Int : 388 ms Normal sinus rhythm Normal ECG When compared with ECG of 11-JAN-2023 14:44, No significant change was found Referred By: Generic ED Physician Electronically Signed By:ADELE JOEL MD
[2023-03-13 04:43] VITALS: BP 132/68; PULSE 94; RESP 18; TEMP 36.1; O2SAT 97; BMI 23.1
[2023-03-13 04:59] LABS: Hematocrit 34.5 % (42.0-52.0); Hemoglobin 10.7 g/dl (14.0-18.0); Mean Corpuscular Hemoglobin 23.5 pg (27.0-33.0); Mean Corpuscular Volume 75.7 fL (80.0-98.0); Platelet Count 417 X10*3/uL (160-400); Red Blood Count 4.56 X10*6/uL (4.60-5.80); Red Cell Distribution Width 17.8 % (11.0-16.0); White Blood Count 9.1 X10*3/uL (4.8-10.8)
--- NOTE | 2023-03-13 04:59 | ED_ITS ---
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 but has not treatment yet patient is not a surgical candidate and been evaluated by Radiation Oncology but patient does not want to proceed with radiation treatment at this time does have a chronic cough with mucopurulent phlegm lately noticed more purulent expectoration no fever or chills no chest pain no palpitation no leg swelling Related Data Home Medications Medication Instructions Recorded Confirmed metformin 500 mg tablet 500 mg PO DAILY 09/28/20 08/28/22 levothyroxine 112 mcg tablet 112 mcg PO DAILY@0600 12/01/20 08/28/22 omeprazole 20 mg capsule,delayed 20 mg PO DAILY@0630 12/01/20 08/28/22 release ipratropium 0.5 mg-albuterol 3 mg 1 vial inhalation QID PRN asthma 08/06/21 08/28/22 (2.5 mg base)/3 mL nebulization soln mirtazapine 7.5 mg tablet 7.5 mg PO BEDTIME PRN Sleep 11/16/21 08/28/22 duloxetine 30 mg capsule,delayed 1 cap PO DAILY 01/29/22 08/28/22 release nabumetone 500 mg tablet 1 tab PO BID PRN knee pain 01/29/22 08/28/22 montelukast 10 mg tablet 1 tab PO BEDTIME 05/28/22 08/28/22 fluticasone fur. 200 mcg-umeclid 1 puff inhalation DAILY 08/28/22 08/28/22 62.5 mcg-vilant 25 mcg inhalat.powder (Trelegy Ellipta) multivitamin with folic acid 400 1 tab PO DAILY 08/28/22 08/28/22 mcg tablet (Daily-Leslie (with folic acid)) Previous Rx's Medication Instructions Recorded theophylline 400 mg 400 mg PO DAILY #30 tabs 05/04/22 tablet,extended release 24 hr pyridoxine (vitamin B6) 100 mg 100 mg PO DAILY 90 days #90 tabs 08/05/22 tablet cefuroxime axetil 250 mg tablet 250 mg PO BID 3 days #6 tabs 09/17/22 prednisone 20 mg tablet 20 mg PO DAILY 30 days #30 tabs 10/07/22 Ventolin HFA 90 mcg/actuation 2 puff PO Q6H PRN shortness of 11/26/22 aerosol inhaler (albuterol sulfate) breath or wheezing #18 ea albuterol sulfate 90 mcg/actuation 2 inh inhalation Q4-6H PRN 12/01/22 breath activated powder inhaler shortness of breath or wheezing #1 ea benzonatate 100 mg capsule 100 mg PO BID PRN cough #20 caps 12/01/22 prednisone 20 mg tablet 20 mg PO DAILY 5 days #5 tabs 12/01/22 azithromycin 250 mg tablet See Rx Instructions PO .COMPLEX #6 01/11/23 tabs prednisone 20 mg tablet 40 mg PO DAILY 5 days #10 tabs 01/11/23 Allergies Allergy/AdvReac Type Severity Reaction Status Date / Time shellfish derived Allergy Severe ANAPHYLAXIS Verified 10/07/22 14:13 [SHELLFISH DERIVED] pollen extracts [POLLEN] Allergy Intermediate RUNNING Verified 10/07/22 14:13 NOSE, WATERY EYES, SNEEZING varenicline [VARENICLINE] AdvReac Unknown PALPITATION Verified 10/07/22 14:13 S Review of Systems Review of Systems: Yes all other systems are reviewed and are negative [facility] Past Medical History Medical History Abnormal PET scan of colon Asthma Chronic respiratory failure COPD (chronic obstructive pulmonary disease) Diabetes GERD (gastroesophageal reflux disease) Hypertension Hypothyroidism Osteoarthritis Osteoporosis Oxygen dependent Sepsis Tobacco dependence Ureteral calculi Surgical History History of appendectomy History of cataract surgery (~2011) History of lithotripsy (~2008) History of lung biopsy (~2021) Family History Family History Father Throat cancer Brother Lung cancer Other Hypertension Social History Social History Household Members: Spouse Housing: Apartment Are you a primary career technical education instructor to a significant other at home: No Do you presently have visiting nurse or other home services: No Alcohol intake: unknown Patient Tobacco Use Status: Current everyday Tobacco user Tobacco use type: Cigarette Cigarette Packs Per Day: 0.5 Cigarettes Per Day: 8 Years Smoked: 60 e-Cigarette/Vaping Use: Currently Using Second Hand Smoke Exposure: No Advance Directives: No Advance Directives Information Provided: Yes Advance Directives Date on File: 12/18/20 service: No Current occupational status: unemployed and retired Physical Exam Vital Signs: Vital Signs: Last Vital Signs Temp 98 F 03/13/23 05:56 Pulse 98 03/13/23 07:09 Resp 14 03/13/23 07:09 BP 120/48 L 03/13/23 07:09 Pulse Ox 94 03/13/23 07:09 O2 Del Method Nasal Cannula 03/13/23 07:09 O2 Flow Rate 2 03/13/23 07:09 BMI result Body Mass Index 23.1 Appearance: Alert. Oriented X3. No acute distress. Eyes: PERRLA, No Nystagmus ENT: Pharynx normal. Oral Mucosa moist Neck: Normal inspection. Neck supple. CVS: Normal heart rate and rhythm. Pulses normal. Respiratory: No respiratory distress. Equal air entry bilateral, bilateral wheezing and rhonchi no rales Abdomen: Soft and nontender. Bowel sounds are present, no mass palpable, no CVA tenderness Skin: Skin warm and dry. Normal skin color. Normal skin turgor. Extremities: No lower extremity edema. No calf tenderness Neuro: Oriented X 3. No motor deficit. No sensory deficit.No cerebellar signs , cranial nerves II-XII intact Medications Administered Discontinued Medications Generic Name Dose Route Start Last Admin Trade Name Freq PRN Reason Stop Dose Admin Albuterol Sulfate 5 mg/ 0 mg 03/13/23 05:00 03/13/23 05:05 Albuterol/Ipratropium 3 ml INHALE 03/13/23 05:01 1 each ONCE ONE Administration Methylprednisolone Sodium Succinate 125 mg 03/13/23 05:00 03/13/23 05:27 Methylprednisolone Sod Succ 125 Mg/2 Ml Vial IVPUSH 03/13/23 05:01 125 mg ONCE ONE Administration Medical Decision Making Medical Decision Making MDM Narrative: Patient with COPD on trilogy, theophylline, DuoNeb treatments and prednisone feeling much better saturating 96% at room air will discharge patient home Lab Data MDM Lab Attestation statement: I reviewed the patient's lab results. 03/13/23 04:45 03/13/23 04:45 Labs: Lab Results 03/13/23 03/13/23 03/13/23 Range/Units 04:44 04:45 04:45 WBC 9.1 (4.8-10.8) X10*3/uL RBC 4.56 L (4.60-5.80) X10*6/uL Hgb 10.7 L (14.0-18.0) g/dl Hct 34.5 L (42.0-52.0) % MCV 75.7 L (80.0-98.0) fL MCH 23.5 L (27.0-33.0) pg MCHC 31.0 (31.0-36.0) g/dl RDW 17.8 H (11.0-16.0) % Plt Count 417 H (160-400) X10*3/uL MPV 9.0 L (9.4-12.4) fL Absolute Nucleated RBC 0.000 (0.0-0.012) X10*3/uL Nucleated RBC % (auto) 0.0 (0.0-0.2) /100WBC Sodium 137 (135-145) mmol/L Potassium 4.1 (3.3-5.1) mmol/L Chloride 102 (96-108) mmol/L Carbon Dioxide 27 (22-29) mmol/L Anion Gap 12 (12-20) BUN 9 (9-16) mg/dL Creatinine 0.96 (0.5-1.4) mg/dL Estim Creat Clear Calc 57.8 Estimated GFR > 60 Random Glucose 120 H (60-115) mg/dL Calcium 8.9 (8.4-10.2) mg/dL Total Bilirubin 0.5 (0.0-1.0) mg/dL AST 18 (5-37) U/L ALT 9 (0-40) U/L Alkaline Phosphatase 112 (39-117) U/L Troponin I High Sens (<3.5-35.0) ng/L Total Protein 6.3 L (6.5-8.0) g/dL Albumin 3.6 (3.5-5.0) g/dL Influenza Type A (PCR) NEGATIVE (Negative) Influenza Type B (PCR) NEGATIVE (Negative) RSV RNA Qual (PCR) NEGATIVE (Negative) SARS-CoV-2 RNA (RT-PCR) NEGATIVE (Negative) 03/13/23 Range/Units 04:50 WBC (4.8-10.8) X10*3/uL RBC (4.60-5.80) X10*6/uL Hgb (14.0-18.0) g/dl Hct (42.0-52.0) % MCV (80.0-98.0) fL MCH (27.0-33.0) pg MCHC (31.0-36.0) g/dl RDW (11.0-16.0) % Plt Count (160-400) X10*3/uL MPV (9.4-12.4) fL Absolute Nucleated RBC (0.0-0.012) X10*3/uL Nucleated RBC % (auto) (0.0-0.2) /100WBC Sodium (135-145) mmol/L Potassium (3.3-5.1) mmol/L Chloride (96-108) mmol/L Carbon Dioxide (22-29) mmol/L Anion Gap (12-20) BUN (9-16) mg/dL Creatinine (0.5-1.4) mg/dL Estim Creat Clear Calc Estimated GFR Random Glucose (60-115) mg/dL Calcium (8.4-10.2) mg/dL Total Bilirubin (0.0-1.0) mg/dL AST (5-37) U/L ALT (0-40) U/L Alkaline Phosphatase (39-117) U/L Troponin I High Sens 3.1 (<3.5-35.0) ng/L Total Protein (6.5-8.0) g/dL Albumin (3.5-5.0) g/dL Influenza Type A (PCR) (Negative) Influenza Type B (PCR) (Negative) RSV RNA Qual (PCR) (Negative) SARS-CoV-2 RNA (RT-PCR) (Negative) Discharge Plan Discharge Clinical Impression: COPD (chronic obstructive pulmonary disease) Patient Disposition: Home, Self-Care Instructions: COPD (Chronic Obstructive Pulmonary Disease) (ED) Additional Instructions: Continue to use your inhaler and nebulizing treatment Increase prednisone to 40 mg daily for 5 days Follow-up with your sash repairer/PCP Contin?e usando sheehan inhalador y tratamiento de nebulizaci?n Aumentar la prednisona a 40 mg diarios abdoul 5 d?as Seguimiento con sheehan neum?logo/PCP Prescriptions: No Action theophylline 400 mg tablet extended release 24 hr 400 mg PO DAILY Qty: 30 6RF albuterol sulfate [Ventolin HFA] 90 mcg/actuation HFA aerosol inhaler 2 puff PO Q6H PRN (Reason: shortness of breath or wheezing) Qty: 18 3RF metformin 500 mg tablet 500 mg PO DAILY levothyroxine 112 mcg tablet 112 mcg PO DAILY@0600 omeprazole 20 mg capsule,delayed release(DR/EC) 20 mg PO DAILY@0630 ipratropium-albuterol 0.5 mg-3 mg(2.5 mg base)/3 mL solution for nebulization 1 vial inhalation QID PRN (Reason: asthma) mirtazapine 7.5 mg Tablet 7.5 mg PO BEDTIME PRN (Reason: Sleep) cefuroxime axetil 250 mg tablet 250 mg PO BID 3 Days Qty: 6 0RF prednisone 20 mg tablet 20 mg PO DAILY 5 Days Qty: 5 0RF benzonatate 100 mg capsule 100 mg PO BID PRN (Reason: cough) Qty: 20 0RF albuterol sulfate 90 mcg/actuation aerosol powdr breath activated 2 inh inhalation Q4-6H PRN (Reason: shortness of breath or wheezing) Qty: 1 0RF azithromycin 250 mg tablet See Rx Instructions .ROUTE .COMPLEX Qty: 6 0RF Rx Instructions: For 250 mg dose pack: take 500 mg today (day 1), then 250 mg for 4 days (days 2-5) prednisone 20 mg tablet 40 mg PO DAILY 5 Days Qty: 10 0RF nabumetone 500 mg tablet 1 tab PO BID PRN (Reason: knee pain) duloxetine 30 mg capsule,delayed release(DR/EC) 1 cap PO DAILY montelukast 10 mg tablet 1 tab PO BEDTIME multivitamin with folic acid [Daily-Leslie (with folic acid)] 400 mcg tablet 1 tab PO DAILY Trelegy Ellipta 200-62.5-25 mcg blister with device 1 puff inhalation DAILY pyridoxine (vitamin B6) 100 mg tablet 100 mg PO DAILY 90 Days Qty: 90 1RF prednisone 20 mg tablet 20 mg PO DAILY 30 Days Qty: 30 4RF Print Language: [place]
[2023-03-13 05:07] VITALS: PULSE 95; RESP 22; O2SAT 96
[2023-03-13 05:12] LABS: Alanine Aminotransferase 9 U/L (0-40); Albumin Level 3.6 g/dL (3.5-5.0); Alkaline Phosphatase 112 U/L (39-117); Anion Gap 12 (12-20); Aspartate Amino Transferase 18 U/L (5-37); Bilirubin Total 0.5 mg/dL (0.0-1.0); Blood Urea Nitrogen 9 mg/dL (9-16); Calcium 8.9 mg/dL (8.4-10.2); Carbon Dioxide 27 mmol/L (22-29); Chloride 102 mmol/L (96-108); Creatinine Clr Calc Pharmacy 57.8; Estimated Glomerular Filt Rate > 60; Glucose Random 120 mg/dL (60-115); Potassium 4.1 mmol/L (3.3-5.1); Sodium 137 mmol/L (135-145); Total Protein 6.3 g/dL (6.5-8.0)
[2023-03-13 05:17] LABS: Troponin-I High Sensitivity 3.1 ng/L (<3.5-35.0)
[2023-03-13] MEDS: methylPREDNISolone Sod Succ 125 MG/2 ML VIAL IVPUSH (05:27)
--- NOTE | 2023-03-13 05:31 | PC.NURSE ---
pt provided warm blankets aox3 no apparent distress currently being administered breathing treatment no respiratory distress able to speak in full sentences lights dimmed, callbell placed within reach of pt
[2023-03-13 05:37] LABS: Influenza A PCR NEGATIVE (Negative); Influenza B PCR NEGATIVE (Negative); Resp Syncy Virus RNA Qual PCR NEGATIVE (Negative); SARS COV2 PCR INHOUSE NEGATIVE (Negative)
[2023-03-13 05:56] VITALS: BP 115/55; PULSE 104; RESP 25; TEMP 36.6; O2SAT 97
[2023-03-13 07:09] VITALS: BP 120/48; PULSE 98; RESP 14; O2SAT 94
--- NOTE | 2023-03-13 07:23 | PC.NURSE ---
resting in bed. O2. removed since patient doesn't have home O2 ordered. sA O2 remains in mid 90's. skin pwd. unlabored resp. pt plans to f/u wioth PCP and use inhailers as prescribes. able to ambulate aroudn room w/o SOB.
== END 2023-03-13 07:31 | disposition home or self-care (01) ==
PROVIDERS: Emergency Provider Internal Medicine
DX: J44.9 Chronic obstructive pulmonary disease, unspecified (principal); Z20.822 Contact with and (suspected) exposure to COVID-19; Z20.828 Contact with and (suspected) exposure to other viral communicable diseases; E11.9 Type 2 diabetes mellitus without complications; E78.00 Pure hypercholesterolemia, unspecified; J96.10 Chronic respiratory failure, unspecified whether with hypoxia or hypercapnia; C34.91 Malignant neoplasm of unspecified part of right bronchus or lung; D12.6 Benign neoplasm of colon, unspecified; F17.210 Nicotine dependence, cigarettes, uncomplicated; Z79.52 Long term (current) use of systemic steroids
CPT/HCPCS: 0241U; 36415; 80053; 84484; 85027; 93005; 94640; 96374; 99284; J2930

== ENCOUNTER 2023-03-30 12:36 | Outpatient (REF) | payer MEDICARE, MEDICAID, SELFPAY ==
--- NOTE | ~2023-03-30 | US_ITS ---
EXAMINATION: US RETROPERITONEAL LIMITED (RENAL ONLY) CLINICAL INFORMATION: Calculus of kidney. COMPARISON: Ultrasound retroperitoneal limited (renal only) 06/19/2022 and 01/28/2022. CT abdomen and pelvis without contrast 11/16/2021. X-ray abdomen KUB 07/16/2018. TECHNIQUE: Real-time imaging of the kidneys. FINDINGS: RIGHT KIDNEY: 10.6 x 4.8 x 4.8 cm (SAG x AP x TRV). The kidney is normal in size, contour, and echogenicity. Renal cortical thickness is normal. No focal parenchymal lesions or hydronephrosis. There are 2 echogenic stones in the lower pole measuring 0.2 x 0.1 x 0.2 cm and 0.2 x 0.2 x 0.2 cm. LEFT KIDNEY: 10.6 x 4.7 x 4.8 cm (SAG x AP x TRV). The kidney is normal in size, contour, and echogenicity. Renal cortical thickness is normal. No focal parenchymal lesions or hydronephrosis. There are 3 echogenic stones. Largest echogenic stone in mid/lower pole pole measuring 0.2 x 0.3 x 0.3 cm and mid pole 0.1 x 0.2 x 0.2 cm. US/US renal BI IMPRESSION: Nonobstructive echogenic renal calculi. Nonobstructive echogenic calculi upper/mid pole left kidney previously measured 0.4 cm. The stones appears stable.
== END 2023-03-30 12:37 | disposition home or self-care (01) ==
LOC: HO.US 12:36
PROVIDERS: Visit Provider Urology
DX: N20.0 Calculus of kidney (principal)
CPT/HCPCS: 76775

== ENCOUNTER 2023-03-31 14:14 | Emergency (ER) | payer MEDICARE, MEDICAID, SELFPAY ==
--- NOTE | ~2023-03-31 | XR_ITS ---
EXAMINATION: CHEST, PELVIS, RIGHT KNEE. CLINICAL INFORMATION: SHORTNESS OF BREATH. RIGHT KNEE PAIN. RIGHT HIP PAIN. COMPARISON: Chest x-ray of January 11, 2023 and studies dating back to November 16, 2021 TECHNIQUE: AP and lateral right knee. AP pelvis. PA chest. FINDINGS: Chest: There is again noted to be a right hilar mass without significant change from previous study of January 11, 2023. There is a smaller nodule seen at the right lung base medially without significant change. There is some chronic pleural-parenchymal changes present within the right upper lung with what appears to be some calcified plaque. There is a calcified granuloma seen within the left lower lung. Heart normal size. No evidence of pulmonary edema. There is some blunting of the left costophrenic angle which may be related to small effusion. AP pelvis: AP film of the pelvis does not demonstrate any evidence of acute fracture or diastases. No definite destructive bony lesions are appreciated. Well-circumscribed benign-appearing calcification is overlying the right iliac bone and may be related to the bone overlying soft tissues or bowel. Sacroiliac joints appear unremarkable without evidence of fusion or widening. The hip joints appear maintained. There are a few small calcified densities present which may represent bone islands measuring less than a centimeter in size overlying the right inferior pubic ramus and right sacrum. Right knee: AP and lateral views of the left knee do not demonstrate any evidence of acute fracture or dislocation. There is a small right knee effusion. There is patella spurring at the patellofemoral joint. Joint spaces appear maintained. 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 Small right knee effusion. Lung masses which appear stable without acute parenchymal disease. No significant pelvic abnormality appreciated.
--- NOTE | 2023-03-31 14:23 | ECG_ITS ---
Test Reason : sob Blood Pressure : / mmHG Vent. Rate : 084 BPM Atrial Rate : 084 BPM P-R Int : 120 ms QRS Dur : 084 ms QT Int : 332 ms P-R-T Axes : 083 063 069 degrees QTc Int : 392 ms Normal sinus rhythm Normal ECG When compared with ECG of 13-MAR-2023 04:49, No significant change was found Referred By: Loren Kaur Electronically Signed By:ADELE JOEL MD
[2023-03-31 14:25] VITALS: BP 105/64; PULSE 89; RESP 18; TEMP 36.6; O2SAT 98; BMI 17.3
--- NOTE | 2023-03-31 14:25 | ED_ITS ---
HPI - General Adult General Chief complaint: Upper Respiratory Symptoms <PHUONG Green Last Filed: 03/31/23 17:11> Stated complaint: difficulty breathing, asthma, Fall R leg pain <PHUONG Green - Last Filed: 03/31/23 17:11> Time Seen by Provider: 03/31/23 17:35 <PHUONG Green - Last Filed: 03/31/23 17:11> Source: patient, family, RN notes reviewed and tattooer <Ab Fernandez - Last Filed: 03/31/23 18:43> Mode of arrival: ambulatory <Ab Fernandez - Last Filed: 03/31/23 18:43> Limitations: no limitations <Ab Fernandez - Last Filed: 03/31/23 18:43> History of Present Illness HPI narrative: 77-year-old male past medical history significant for COPD, arthritis, hyperlipidemia, thyroid, diabetes presents for evaluation of right-sided hip and leg pain after a fall on Wednesday He reports that he lost his balance while he was moving things around his house. He fell landing on his right side pain Did not his head or lose consciousness. He has been able to walk but has been having pain that radiates down his leg Denies any headache or neck pain The patient also complains of shortness of breath with productive cough over the last few days. Denies any fevers, chills <Ab Fernandez - Last Filed: 03/31/23 18:43> Related Data Home medications: Home Medications Medication Instructions Recorded Confirmed metformin 500 mg tablet 500 mg PO DAILY 09/28/20 08/28/22 levothyroxine 112 mcg tablet 112 mcg PO DAILY@0600 12/01/20 08/28/22 omeprazole 20 mg capsule,delayed 20 mg PO DAILY@0630 12/01/20 08/28/22 release ipratropium 0.5 mg-albuterol 3 mg 1 vial inhalation QID PRN asthma 08/06/21 08/28/22 (2.5 mg base)/3 mL nebulization soln mirtazapine 7.5 mg tablet 7.5 mg PO BEDTIME PRN Sleep 11/16/21 08/28/22 duloxetine 30 mg capsule,delayed 1 cap PO DAILY 01/29/22 08/28/22 release nabumetone 500 mg tablet 1 tab PO BID PRN knee pain 01/29/22 08/28/22 montelukast 10 mg tablet 1 tab PO BEDTIME 05/28/22 08/28/22 fluticasone fur. 200 mcg-umeclid 1 puff inhalation DAILY 08/28/22 08/28/22 62.5 mcg-vilant 25 mcg inhalat.powder (Trelegy Ellipta) multivitamin with folic acid 400 1 tab PO DAILY 08/28/22 08/28/22 mcg tablet (Daily-Leslie (with folic acid)) Previous Rx's Medication Instructions Recorded theophylline 400 mg 400 mg PO DAILY #30 tabs 05/04/22 tablet,extended release 24 hr pyridoxine (vitamin B6) 100 mg 100 mg PO DAILY 90 days #90 tabs 08/05/22 tablet cefuroxime axetil 250 mg tablet 250 mg PO BID 3 days #6 tabs 09/17/22 Ventolin HFA 90 mcg/actuation 2 puff PO Q6H PRN shortness of 11/26/22 aerosol inhaler (albuterol sulfate) breath or wheezing #18 ea albuterol sulfate 90 mcg/actuation 2 inh inhalation Q4-6H PRN 12/01/22 breath activated powder inhaler shortness of breath or wheezing #1 ea benzonatate 100 mg capsule 100 mg PO BID PRN cough #20 caps 12/01/22 prednisone 20 mg tablet 20 mg PO DAILY 5 days #5 tabs 12/01/22 azithromycin 250 mg tablet See Rx Instructions PO .COMPLEX #6 01/11/23 tabs prednisone 20 mg tablet 40 mg PO DAILY 5 days #10 tabs 01/11/23 prednisone 20 mg tablet 20 mg PO DAILY 30 days #30 tabs 03/25/23 azithromycin 250 mg tablet See Rx Instructions PO .COMPLEX #6 03/31/23 tabs prednisone 20 mg tablet 40 mg PO DAILY #10 tabs 03/31/23 <PHUONG Green - Last Filed: 03/31/23 17:11> Allergies/adverse reactions: Allergies Allergy/AdvReac Type Severity Reaction Status Date / Time shellfish derived Allergy Severe ANAPHYLAXIS Verified 10/07/22 14:13 [SHELLFISH DERIVED] pollen extracts [POLLEN] Allergy Intermediate RUNNING Verified 10/07/22 14:13 NOSE, WATERY EYES, SNEEZING varenicline [VARENICLINE] AdvReac Unknown PALPITATION Verified 10/07/22 14:13 S <PHUONG Green - Last Filed: 03/31/23 17:11> Review of Systems Constitutional: Constitutional: Reports as per HPI, Denies chills, Denies fatigue, Denies fever(s) and Denies headache(s) <Ab Fernandez - Last Filed: 03/31/23 18:43> ENT: Denies headache(s) <Ab Fernandez - Last Filed: 03/31/23 18:43> Cardiovascular: Cardiovascular: Denies chest pain and Reports dyspnea <Abal Fernandez - Last Filed: 03/31/23 18:43> Respiratory: Respiratory: Reports chest congestion, Reports cough and Reports dyspnea <Ab Romoy - Last Filed: 03/31/23 18:43> Gastrointestinal: Gastrointestinal: Denies abdominal pain, Denies nausea and Denies vomiting <Ab Fernandez - Last Filed: 03/31/23 18:43> Genitourinary: Genitourinary: Denies difficulty urinating and Denies dysuria <Ab Fernandez - Last Filed: 03/31/23 18:43> Musculoskeletal: Musculoskeletal: Reports arthralgias and Reports limited range of motion <Abal Fernandez - Last Filed: 03/31/23 18:43> Neurologic: Denies headache(s) and Denies focal weakness <Ab Fernandez - Last Filed: 03/31/23 18:43> Endocrine: Endocrine: Denies fatigue <Ab Romoy - Last Filed: 03/31/23 18:43> [facility] Past Medical History Medical History: Medical History Abnormal PET scan of colon Asthma Chronic respiratory failure COPD (chronic obstructive pulmonary disease) Diabetes GERD (gastroesophageal reflux disease) Hypertension Hypothyroidism Osteoarthritis Osteoporosis Oxygen dependent Sepsis Tobacco dependence Ureteral calculi <PHUONG Green - Last Filed: 03/31/23 17:11> Surgical History: Surgical History History of appendectomy History of cataract surgery (~2011) History of lithotripsy (~2008) History of lung biopsy (~2021) <PHUONG Green - Last Filed: 03/31/23 17:11> Family History Family History: Family History Father Throat cancer Brother Lung cancer Other Hypertension <PHUONG Green - Last Filed: 03/31/23 17:11> Social History Social History: Social History Household Members: Spouse Housing: Apartment Are you a primary cardiac care nurse to a significant other at home: No Do you presently have visiting nurse or other home services: No Alcohol intake: never Patient Tobacco Use Status: Current everyday Tobacco user Tobacco use type: Cigarette Cigarette Packs Per Day: 0.5 Cigarettes Per Day: 8 Years Smoked: 60 Smoked in Last 30 Days: Yes e-Cigarette/Vaping Use: Currently Using Second Hand Smoke Exposure: No Use of substances other than those prescribed or required for medical reasons: No Advance Directives: No Advance Directives Information Provided: No Advance Directives Date on File: 12/18/20 service: No Current occupational status: unemployed and retired <PHUONG Green - Last Filed: 03/31/23 17:11> Physical Exam ED Vital Signs: Vital Signs - 24 hr 03/31/23 14:25 03/31/23 15:39 03/31/23 18:02 Temperature 98 F Pulse Rate 89 83 77 Respiratory Rate 18 20 18 Blood Pressure 105/64 Pulse Oximetry 98 Oxygen Delivery Method Room Air BMI result Body Mass Index 17.3 <PHUONG Green - Last Filed: 03/31/23 17:11> Vital Signs - 24 hr 03/31/23 14:25 03/31/23 15:39 03/31/23 18:02 Temperature 98 F Pulse Rate 89 83 77 Respiratory Rate 18 20 18 Blood Pressure 105/64 Pulse Oximetry 98 Oxygen Delivery Method Room Air BMI result Body Mass Index 17.3 <Ab Fernandez - Last Filed: 03/31/23 18:43> Const General: comfortable, no acute distress, alert and awake <Ab OPoland - Last Filed: 03/31/23 18:43> Nutritional Appearance: well nourished <Ab O Last Filed: 03/31/23 18:43> Orientation/consciousness: patient oriented x3 <Ab Last Filed: 03/31/23 18:43> HENMT Head: Yes normocephalic and Yes atraumatic < Last Filed: 03/31/23 18:43> Eyes Eyelids: Yes eyelids normal < Last Filed: 03/31/23 18:43> Conjunctivae: conjunctivae normal < Last Filed: 03/31/23 18:43> Sclerae: sclerae normal < Last Filed: 03/31/23 18:43> Corneas: corneas normal < Last Filed: 03/31/23 18:43> Pupils: Equal, round and reactive pupils present <Ab O Last Filed: 03/31/23 18:43> EOM: EOMs intact bilaterally <Ab Last Filed: 03/31/23 18:43> Neck Neck: Yes full ROM <Ab Last Filed: 03/31/23 18:43> Resp Effort & Inspection: normal respiratory effort and able to speak in complete sentences <Ab OFei - Last Filed: 03/31/23 18:43> Auscultation: not clear to auscultation bilaterally and wheezes (Coarse, diffuse wheeze) <Ab O Last Filed: 03/31/23 18:43> Cardio Rate: regular rate <Ab Last Filed: 03/31/23 18:43> Rhythm: regular rhythm <Ab Last Filed: 03/31/23 18:43> GI Inspection: No distended <Ab Last Filed: 03/31/23 18:43> Palpation (GI): Soft to palpation, not firm, nontender, no guarding and not rigid <Ab Fernandez - Last Filed: 03/31/23 18:43> Auscultation: normoactive bowel sounds <Ab Fernandez - Last Filed: 03/31/23 18:43> Skin General skin exam: no rashes or lesions noted and elasticity normal <Ab Fernandez - Last Filed: 03/31/23 18:43> Neuro General: patient oriented x3 <Ab Fernandez - Last Filed: 03/31/23 18:43> Cranial nerves: Yes CN's II-XII intact bilaterally, Yes Equal, round and reactive pupils present and Yes Bilaterally intact EOM present <Ab Fernandez - Last Filed: 03/31/23 18:43> Cognition (Neuro): normal cognition <Ab Fernandez - Last Filed: 03/31/23 18:43> Extrem Other: Patient has tenderness palpation of the right hip and right knee without significant difficulty. He has full range of motion to both joints. No calf tenderness <Ab Fernandez - Last Filed: 03/31/23 18:43> Course Course Course Narrative: This is an RME: Additional HPI, ROS, PE not included below will be deferred to primary provider. 77-year-old male history of hypertension, diabetes, lung cancer, COPD, diverticulitis presenting with complaints of shortness of breath, productive cough of thick sputum for the past few days worsening. Patient also sustained a fall on Wednesday, no head strike or loss of consciousness however complaining of left hip and left knee pain. Physical exam breath sounds diminished bilaterally. Plan labs, imaging, viral test. <PHUONG Green - Last Filed: 03/31/23 17:11> Medications Administered Discontinued Medications Generic Name Dose Route Start Last Admin Trade Name Freq PRN Reason Stop Dose Admin Albuterol/Ipratropium 3 ml 03/31/23 14:22 03/31/23 15:36 Albuterol/Iprat 2.5/0.5mg 3 Ml Ampul.Neb INHALE 03/31/23 14:23 3 ml ONCE ONE Administration Albuterol Sulfate 2.5 mg/ 0 mg 03/31/23 17:48 03/31/23 17:59 Albuterol/Ipratropium 3 ml INHALE 03/31/23 17:49 1 each ONCE ONE Administration <PHUONG Green - Last Filed: 03/31/23 17:11> Medications Administered Discontinued Medications Generic Name Dose Route Start Last Admin Trade Name Ru PRN Reason Stop Dose Admin Albuterol/Ipratropium 3 ml 03/31/23 14:22 03/31/23 15:36 Albuterol/Iprat 2.5/0.5mg 3 Ml Ampul.Neb INHALE 03/31/23 14:23 3 ml ONCE ONE Administration Albuterol Sulfate 2.5 mg/ 0 mg 03/31/23 17:48 03/31/23 17:59 Albuterol/Ipratropium 3 ml INHALE 03/31/23 17:49 1 each ONCE ONE Administration <Ab Fernandez - Last Filed: 03/31/23 18:43> Medical Decision Making Medical Decision Making [facility] Narrative: 77-year-old male presents for evaluation of 2 separate complaints. Complains of shortness of breath which he feels is related to his COPD exacerbation. He also complains of right hip and knee pain after fall. Orthopedic x-ray showed no evidence of traumatic fracture. He does have arthritis which is well known. Chest x-ray shows no focal infiltrates but does show stable lung masses. Patient does still have some wheezing exam which was she was in a DuoNeb. Will discharge patient azithromycin and prednisone. Symptomatic care for his right lower extremity pain <Ab Fernandez - Last Filed: 03/31/23 18:43> Differential Diagnosis Differential Diagnoses: The differential diagnosis associated with the presentation includes <Ab Fernandez - Last Filed: 03/31/23 18:43> Acute asthma exacerbation Bronchitis Pneumonia COPD exacerbation Fracture Dislocation Contusion <Ab Fernandez - Last Filed: 03/31/23 18:43> Lab Data [facility] Lab Attestation statement: I reviewed the patient's lab results. <Ab Fernandez - Last Filed: 03/31/23 18:43> Result Diagrams: 03/31/23 15:24 03/31/23 15:24 <PHUONG Green - Last Filed: 03/31/23 17:11> Labs: Lab Results 03/31/23 03/31/23 03/31/23 Range/Units 15:13 15:13 15:23 WBC (4.8-10.8) X10*3/uL RBC (4.60-5.80) X10*6/uL Hgb (14.0-18.0) g/dl Hct (42.0-52.0) % MCV (80.0-98.0) fL MCH (27.0-33.0) pg MCHC (31.0-36.0) g/dl RDW (11.0-16.0) % Plt Count (160-400) X10*3/uL MPV (9.4-12.4) fL Immature Gran % (Auto) (0.0-0.4) % Neut % (Auto) (45-73) % Lymph % (Auto) (20-40) % [place] % (Auto) (2-11) % Eos % (Auto) (0-4) % Baso % (Auto) (0-2) % Lymph # (Auto) (1.2-4.9) X10*3/uL [place] # (Auto) (0.1-1.2) X10*3/uL Eos # (Auto) (0.0-0.4) X10*3/uL Baso # (Auto) (0.0-0.2) X10*3/uL Abs Immat Gran (auto) (0.00-0.03) X10*3/uL Absolute Neuts (auto) (2.0-8.3) x10*3/uL Absolute Nucleated RBC (0.0-0.012) X10*3/uL Nucleated RBC % (auto) (0.0-0.2) /100WBC Sodium (135-145) mmol/L Potassium (3.3-5.1) mmol/L Chloride (96-108) mmol/L Carbon Dioxide (22-29) mmol/L Anion Gap (12-20) BUN (9-16) mg/dL Creatinine (0.5-1.4) mg/dL Estim Creat Clear Calc Estimated GFR Random Glucose (60-115) mg/dL Lactic Acid 1.9 (0.5-2.0) mmol/L Calcium (8.4-10.2) mg/dL Magnesium (1.6-2.6) mg/dL Total Bilirubin (0.0-1.0) mg/dL AST (5-37) U/L ALT (0-40) U/L Alkaline Phosphatase (39-117) U/L Troponin I High Sens (<3.5-35.0) ng/L B-Natriuretic Peptide (<100) pg/mL Total Protein (6.5-8.0) g/dL Albumin (3.5-5.0) g/dL COVID-19 (ELIO) Negative (Negative) COVID-19 Clin Com See Note Influenza Type A (YOSELIN) Negative (Negative) Influenza Type B (YOSELIN) Negative (Negative) Influenza A & B Note See Note 03/31/23 03/31/23 03/31/23 Range/Units 15:24 15:24 15:24 WBC 8.4 (4.8-10.8) X10*3/uL RBC 4.74 (4.60-5.80) X10*6/uL Hgb 11.0 L (14.0-18.0) g/dl Hct 36.5 L (42.0-52.0) % MCV 77.0 L (80.0-98.0) fL MCH 23.2 L (27.0-33.0) pg MCHC 30.1 L (31.0-36.0) g/dl RDW 16.6 H (11.0-16.0) % Plt Count 601 H D (160-400) X10*3/uL MPV 8.9 L (9.4-12.4) fL Immature Gran % (Auto) 0.5 H (0.0-0.4) % Neut % (Auto) 72.8 (45-73) % Lymph % (Auto) 15.2 L (20-40) % [place] % (Auto) 6.7 (2-11) % Eos % (Auto) 4.3 H (0-4) % Baso % (Auto) 0.5 (0-2) % Lymph # (Auto) 1.3 (1.2-4.9) X10*3/uL [place] # (Auto) 0.6 (0.1-1.2) X10*3/uL Eos # (Auto) 0.4 (0.0-0.4) X10*3/uL Baso # (Auto) 0.0 (0.0-0.2) X10*3/uL Abs Immat Gran (auto) 0.04 H (0.00-0.03) X10*3/uL Absolute Neuts (auto) 6.1 (2.0-8.3) x10*3/uL Absolute Nucleated RBC 0.000 (0.0-0.012) X10*3/uL Nucleated RBC % (auto) 0.0 (0.0-0.2) /100WBC Sodium 144 (135-145) mmol/L Potassium 4.6 (3.3-5.1) mmol/L Chloride 104 (96-108) mmol/L Carbon Dioxide 30 H (22-29) mmol/L Anion Gap 15 (12-20) BUN 10 (9-16) mg/dL Creatinine 1.03 (0.5-1.4) mg/dL Estim Creat Clear Calc 41.3 Estimated GFR > 60 Random Glucose 132 H (60-115) mg/dL Lactic Acid (0.5-2.0) mmol/L Calcium 9.6 D (8.4-10.2) mg/dL Magnesium 2.1 (1.6-2.6) mg/dL Total Bilirubin 0.2 (0.0-1.0) mg/dL AST 13 (5-37) U/L ALT 8 (0-40) U/L Alkaline Phosphatase 138 H (39-117) U/L Troponin I High Sens (<3.5-35.0) ng/L B-Natriuretic Peptide 31 (<100) pg/mL Total Protein 6.7 (6.5-8.0) g/dL Albumin 3.7 (3.5-5.0) g/dL COVID-19 (ELIO) (Negative) COVID-19 Clin Com Influenza Type A (YOSELIN) (Negative) Influenza Type B (YOSELIN) (Negative) Influenza A & B Note 03/31/23 Range/Units 15:24 WBC (4.8-10.8) X10*3/uL RBC (4.60-5.80) X10*6/uL Hgb (14.0-18.0) g/dl Hct (42.0-52.0) % MCV (80.0-98.0) fL MCH (27.0-33.0) pg MCHC (31.0-36.0) g/dl RDW (11.0-16.0) % Plt Count (160-400) X10*3/uL MPV (9.4-12.4) fL Immature Gran % (Auto) (0.0-0.4) % Neut % (Auto) (45-73) % Lymph % (Auto) (20-40) % [place] % (Auto) (2-11) % Eos % (Auto) (0-4) % Baso % (Auto) (0-2) % Lymph # (Auto) (1.2-4.9) X10*3/uL [place] # (Auto) (0.1-1.2) X10*3/uL Eos # (Auto) (0.0-0.4) X10*3/uL Baso # (Auto) (0.0-0.2) X10*3/uL Abs Immat Gran (auto) (0.00-0.03) X10*3/uL Absolute Neuts (auto) (2.0-8.3) x10*3/uL Absolute Nucleated RBC (0.0-0.012) X10*3/uL Nucleated RBC % (auto) (0.0-0.2) /100WBC Sodium (135-145) mmol/L Potassium (3.3-5.1) mmol/L Chloride (96-108) mmol/L Carbon Dioxide (22-29) mmol/L Anion Gap (12-20) BUN (9-16) mg/dL Creatinine (0.5-1.4) mg/dL Estim Creat Clear Calc Estimated GFR Random Glucose (60-115) mg/dL Lactic Acid (0.5-2.0) mmol/L Calcium (8.4-10.2) mg/dL Magnesium (1.6-2.6) mg/dL Total Bilirubin (0.0-1.0) mg/dL AST (5-37) U/L ALT (0-40) U/L Alkaline Phosphatase (39-117) U/L Troponin I High Sens 5.9 D (<3.5-35.0) ng/L B-Natriuretic Peptide (<100) pg/mL Total Protein (6.5-8.0) g/dL Albumin (3.5-5.0) g/dL COVID-19 (ELIO) (Negative) COVID-19 Clin Com Influenza Type A (YOSELIN) (Negative) Influenza Type B (YOSELIN) (Negative) Influenza A & B Note <PHUONG Green - Last Filed: 03/31/23 17:11> Lab Results 03/31/23 03/31/23 03/31/23 Range/Units 15:13 15:13 15:23 WBC (4.8-10.8) X10*3/uL RBC (4.60-5.80) X10*6/uL Hgb (14.0-18.0) g/dl Hct (42.0-52.0) % MCV (80.0-98.0) fL MCH (27.0-33.0) pg MCHC (31.0-36.0) g/dl RDW (11.0-16.0) % Plt Count (160-400) X10*3/uL MPV (9.4-12.4) fL Immature Gran % (Auto) (0.0-0.4) % Neut % (Auto) (45-73) % Lymph % (Auto) (20-40) % [place] % (Auto) (2-11) % Eos % (Auto) (0-4) % Baso % (Auto) (0-2) % Lymph # (Auto) (1.2-4.9) X10*3/uL [place] # (Auto) (0.1-1.2) X10*3/uL Eos # (Auto) (0.0-0.4) X10*3/uL Baso # (Auto) (0.0-0.2) X10*3/uL Abs Immat Gran (auto) (0.00-0.03) X10*3/uL Absolute Neuts (auto) (2.0-8.3) x10*3/uL Absolute Nucleated RBC (0.0-0.012) X10*3/uL Nucleated RBC % (auto) (0.0-0.2) /100WBC Sodium (135-145) mmol/L Potassium (3.3-5.1) mmol/L Chloride (96-108) mmol/L Carbon Dioxide (22-29) mmol/L Anion Gap (12-20) BUN (9-16) mg/dL Creatinine (0.5-1.4) mg/dL Estim Creat Clear Calc Estimated GFR Random Glucose (60-115) mg/dL Lactic Acid 1.9 (0.5-2.0) mmol/L Calcium (8.4-10.2) mg/dL Magnesium (1.6-2.6) mg/dL Total Bilirubin (0.0-1.0) mg/dL AST (5-37) U/L ALT (0-40) U/L Alkaline Phosphatase (39-117) U/L Troponin I High Sens (<3.5-35.0) ng/L B-Natriuretic Peptide (<100) pg/mL Total Protein (6.5-8.0) g/dL Albumin (3.5-5.0) g/dL COVID-19 (ELIO) Negative (Negative) COVID-19 Clin Com See Note Influenza Type A (YOSELIN) Negative (Negative) Influenza Type B (YOSELIN) Negative (Negative) Influenza A & B Note See Note 03/31/23 03/31/23 03/31/23 Range/Units 15:24 15:24 15:24 WBC 8.4 (4.8-10.8) X10*3/uL RBC 4.74 (4.60-5.80) X10*6/uL Hgb 11.0 L (14.0-18.0) g/dl Hct 36.5 L (42.0-52.0) % MCV 77.0 L (80.0-98.0) fL MCH 23.2 L (27.0-33.0) pg MCHC 30.1 L (31.0-36.0) g/dl RDW 16.6 H (11.0-16.0) % Plt Count 601 H D (160-400) X10*3/uL MPV 8.9 L (9.4-12.4) fL Immature Gran % (Auto) 0.5 H (0.0-0.4) % Neut % (Auto) 72.8 (45-73) % Lymph % (Auto) 15.2 L (20-40) % [place] % (Auto) 6.7 (2-11) % Eos % (Auto) 4.3 H (0-4) % Baso % (Auto) 0.5 (0-2) % Lymph # (Auto) 1.3 (1.2-4.9) X10*3/uL [place] # (Auto) 0.6 (0.1-1.2) X10*3/uL Eos # (Auto) 0.4 (0.0-0.4) X10*3/uL Baso # (Auto) 0.0 (0.0-0.2) X10*3/uL Abs Immat Gran (auto) 0.04 H (0.00-0.03) X10*3/uL Absolute Neuts (auto) 6.1 (2.0-8.3) x10*3/uL Absolute Nucleated RBC 0.000 (0.0-0.012) X10*3/uL Nucleated RBC % (auto) 0.0 (0.0-0.2) /100WBC Sodium 144 (135-145) mmol/L Potassium 4.6 (3.3-5.1) mmol/L Chloride 104 (96-108) mmol/L Carbon Dioxide 30 H (22-29) mmol/L Anion Gap 15 (12-20) BUN 10 (9-16) mg/dL Creatinine 1.03 (0.5-1.4) mg/dL Estim Creat Clear Calc 41.3 Estimated GFR > 60 Random Glucose 132 H (60-115) mg/dL Lactic Acid (0.5-2.0) mmol/L Calcium 9.6 D (8.4-10.2) mg/dL Magnesium 2.1 (1.6-2.6) mg/dL Total Bilirubin 0.2 (0.0-1.0) mg/dL AST 13 (5-37) U/L ALT 8 (0-40) U/L Alkaline Phosphatase 138 H (39-117) U/L Troponin I High Sens (<3.5-35.0) ng/L B-Natriuretic Peptide 31 (<100) pg/mL Total Protein 6.7 (6.5-8.0) g/dL Albumin 3.7 (3.5-5.0) g/dL COVID-19 (ELIO) (Negative) COVID-19 Clin Com Influenza Type A (YOSELIN) (Negative) Influenza Type B (YOSELIN) (Negative) Influenza A & B Note 03/31/23 Range/Units 15:24 WBC (4.8-10.8) X10*3/uL RBC (4.60-5.80) X10*6/uL Hgb (14.0-18.0) g/dl Hct (42.0-52.0) % MCV (80.0-98.0) fL MCH (27.0-33.0) pg MCHC (31.0-36.0) g/dl RDW (11.0-16.0) % Plt Count (160-400) X10*3/uL MPV (9.4-12.4) fL Immature Gran % (Auto) (0.0-0.4) % Neut % (Auto) (45-73) % Lymph % (Auto) (20-40) % [place] % (Auto) (2-11) % Eos % (Auto) (0-4) % Baso % (Auto) (0-2) % Lymph # (Auto) (1.2-4.9) X10*3/uL [place] # (Auto) (0.1-1.2) X10*3/uL Eos # (Auto) (0.0-0.4) X10*3/uL Baso # (Auto) (0.0-0.2) X10*3/uL Abs Immat Gran (auto) (0.00-0.03) X10*3/uL Absolute Neuts (auto) (2.0-8.3) x10*3/uL Absolute Nucleated RBC (0.0-0.012) X10*3/uL Nucleated RBC % (auto) (0.0-0.2) /100WBC Sodium (135-145) mmol/L Potassium (3.3-5.1) mmol/L Chloride (96-108) mmol/L Carbon Dioxide (22-29) mmol/L Anion Gap (12-20) BUN (9-16) mg/dL Creatinine (0.5-1.4) mg/dL Estim Creat Clear Calc Estimated GFR Random Glucose (60-115) mg/dL Lactic Acid (0.5-2.0) mmol/L Calcium (8.4-10.2) mg/dL Magnesium (1.6-2.6) mg/dL Total Bilirubin (0.0-1.0) mg/dL AST (5-37) U/L ALT (0-40) U/L Alkaline Phosphatase (39-117) U/L Troponin I High Sens 5.9 D (<3.5-35.0) ng/L B-Natriuretic Peptide (<100) pg/mL Total Protein (6.5-8.0) g/dL Albumin (3.5-5.0) g/dL COVID-19 (ELIO) (Negative) COVID-19 Clin Com Influenza Type A (YOSELIN) (Negative) Influenza Type B (YOSELIN) (Negative) Influenza A & B Note <Ab Fernandez - Last Filed: 03/31/23 18:43> Radiology Impression Discussion of test interpretation with radiology: I have reviewed the radiologist's reading. <Ab Fernandez - Last Filed: 03/31/23 18:43> Discharge Plan Discharge Clinical Impression: Contusion of left leg, COPD (chronic obstructive pulmonary disease) <PHUONG Green - Last Filed: 03/31/23 17:11> Patient Disposition: Home, Self-Care <PHUONG Green - Last Filed: 03/31/23 17:11> Instructions: COPD (Chronic Obstructive Pulmonary Disease) (ED) <PHUONG Green - Last Filed: 03/31/23 17:11> Additional Instructions: Your x-rays did not show any evidence of fracture. Your chest x-ray was clear. Take azithromycin prednisone as directed Check your blood sugars frequently while you are taking prednisone as this may cause them to be elevated Follow-up with your primary doctor <PHUONG Green - Last Filed: 03/31/23 17:11> Prescriptions: New azithromycin 250 mg tablet See Rx Instructions .ROUTE .COMPLEX Qty: 6 0RF Rx Instructions: For 250 mg dose pack: take 500 mg today (day 1), then 250 mg for 4 days (days 2-5) prednisone 20 mg tablet 40 mg PO DAILY Qty: 10 0RF No Action theophylline 400 mg tablet extended release 24 hr 400 mg PO DAILY Qty: 30 6RF albuterol sulfate [Ventolin HFA] 90 mcg/actuation HFA aerosol inhaler 2 puff PO Q6H PRN (Reason: shortness of breath or wheezing) Qty: 18 3RF prednisone 20 mg tablet 20 mg PO DAILY 30 Days Qty: 30 4RF metformin 500 mg tablet 500 mg PO DAILY levothyroxine 112 mcg tablet 112 mcg PO DAILY@0600 omeprazole 20 mg capsule,delayed release(DR/EC) 20 mg PO DAILY@0630 ipratropium-albuterol 0.5 mg-3 mg(2.5 mg base)/3 mL solution for nebulization 1 vial inhalation QID PRN (Reason: asthma) mirtazapine 7.5 mg Tablet 7.5 mg PO BEDTIME PRN (Reason: Sleep) cefuroxime axetil 250 mg tablet 250 mg PO BID 3 Days Qty: 6 0RF prednisone 20 mg tablet 20 mg PO DAILY 5 Days Qty: 5 0RF benzonatate 100 mg capsule 100 mg PO BID PRN (Reason: cough) Qty: 20 0RF albuterol sulfate 90 mcg/actuation aerosol powdr breath activated 2 inh inhalation Q4-6H PRN (Reason: shortness of breath or wheezing) Qty: 1 0RF azithromycin 250 mg tablet See Rx Instructions .ROUTE .COMPLEX Qty: 6 0RF Rx Instructions: For 250 mg dose pack: take 500 mg today (day 1), then 250 mg for 4 days (days 2-5) prednisone 20 mg tablet 40 mg PO DAILY 5 Days Qty: 10 0RF nabumetone 500 mg tablet 1 tab PO BID PRN (Reason: knee pain) duloxetine 30 mg capsule,delayed release(DR/EC) 1 cap PO DAILY montelukast 10 mg tablet 1 tab PO BEDTIME multivitamin with folic acid [Daily-Leslie (with folic acid)] 400 mcg tablet 1 tab PO DAILY Trelegy Ellipta 200-62.5-25 mcg blister with device 1 puff inhalation DAILY pyridoxine (vitamin B6) 100 mg tablet 100 mg PO DAILY 90 Days Qty: 90 1RF <PHUONG Green - Last Filed: 03/31/23 17:11>
[2023-03-31 15:30] LABS: MANUAL DIFF FLAG NO
[2023-03-31 15:34] LABS: Basophils Percent Auto 0.5 % (0-2); Eosinophils Absolute Auto 0.4 X10*3/uL (0.0-0.4); Eosinophils Percent Auto 4.3 % (0-4); Hematocrit 36.5 % (42.0-52.0); Imm Gran Abs Auto 0.04 X10*3/uL (0.00-0.03); Imm Gran Pct Auto 0.5 % (0.0-0.4); Lymphocytes Absolute Auto 1.3 X10*3/uL (1.2-4.9); Lymphocytes Percent Auto 15.2 % (20-40); Mean Corpuscular HGB Conc 30.1 g/dl (31.0-36.0); Mean Corpuscular Hemoglobin 23.2 pg (27.0-33.0); Mean Platelet Volume 8.9 fL (9.4-12.4); Monocytes Absolute Auto 0.6 X10*3/uL (0.1-1.2); Monocytes Percent Auto 6.7 % (2-11); Neutrophils Absolute Auto 6.1 x10*3/uL (2.0-8.3); Neutrophils Percent Auto 72.8 % (45-73); Platelet Count 601 X10*3/uL (160-400); Red Blood Count 4.74 X10*6/uL (4.60-5.80); Red Cell Distribution Width 16.6 % (11.0-16.0); White Blood Count 8.4 X10*3/uL (4.8-10.8)
[2023-03-31] MEDS: Albuterol/Iprat 2.5/0.5MG 3 ML AMPUL.NEB INHALE (15:36)
[2023-03-31 15:39] VITALS: PULSE 83; RESP 20; O2SAT 95
[2023-03-31 15:51] LABS: COVID-19 Test Negative (Negative); IDNOW Serial# BCCEAD1C
[2023-03-31 15:52] LABS: IDNOW Serial# 08D9AD1C; Influenza A Negative (Negative); Influenza B2 Negative (Negative)
[2023-03-31 16:07] LABS: Lactic Acid 1.9 mmol/L (0.5-2.0)
[2023-03-31 16:08] LABS: Alanine Aminotransferase 8 U/L (0-40); Albumin Level 3.7 g/dL (3.5-5.0); Alkaline Phosphatase 138 U/L (39-117); Anion Gap 15 (12-20); Aspartate Amino Transferase 13 U/L (5-37); Bilirubin Total 0.2 mg/dL (0.0-1.0); Blood Urea Nitrogen 10 mg/dL (9-16); Calcium 9.6 mg/dL (8.4-10.2); Carbon Dioxide 30 mmol/L (22-29); Chloride 104 mmol/L (96-108); Creatinine Clr Calc Pharmacy 41.3; Estimated Glomerular Filt Rate > 60; Glucose Random 132 mg/dL (60-115); Magnesium 2.1 mg/dL (1.6-2.6); Potassium 4.6 mmol/L (3.3-5.1); Sodium 144 mmol/L (135-145); Total Protein 6.7 g/dL (6.5-8.0)
[2023-03-31 16:11] LABS: B Type Natriuretic Peptide 31 pg/mL (<100)
[2023-03-31 16:20] LABS: Troponin-I High Sensitivity 5.9 ng/L (<3.5-35.0)
[2023-03-31 18:02] VITALS: PULSE 77; RESP 18; O2SAT 93
--- NOTE | 2023-03-31 18:07 | PC.NURSE ---
Patient states that on Wednesday he was moving boxes when he tripped over his flip flop and fell over onto his right side. Patient has had pain there ever since. Patient also complaining of some shortness of breath, history of COPD, patient does have some wheezing on auscultation, will get nebulizer treatment while in the ED. Patient is able to move all extremities independently. Patient otherwise well appearing
== END 2023-03-31 19:18 | disposition home or self-care (01) ==
PROVIDERS: Physician Assistant; Emergency Provider Internal Medicine; PCP Nurse Practitioner Family
DX: J44.9 Chronic obstructive pulmonary disease, unspecified (principal); S80.11XA Contusion of right lower leg, initial encounter; W17.89XA Other fall from one level to another, initial encounter; Z20.822 Contact with and (suspected) exposure to COVID-19; M25.461 Effusion, right knee; M79.604 Pain in right leg; E11.9 Type 2 diabetes mellitus without complications; I10 Essential (primary) hypertension; E78.5 Hyperlipidemia, unspecified; R06.02 Shortness of breath; C34.90 Malignant neoplasm of unspecified part of unspecified bronchus or lung; F17.210 Nicotine dependence, cigarettes, uncomplicated; Z99.81 Dependence on supplemental oxygen; Z79.899 Other long term (current) drug therapy; Y93.89 Activity, other specified; Y92.9 Unspecified place or not applicable; Y99.9 Unspecified external cause status
CPT/HCPCS: 36415; 71045; 72170; 73560; 80053; 83605; 83735; 83880; 84484; 85025; 87040; 87502; 87635; 93005; 94640; 99285

== ENCOUNTER → 2023-04-02 13:17 | Outpatient (BNVA) | payer MEDICARE, MEDICAID, SELFPAY | PROVIDERS: PCP Nurse Practitioner Family; Visit Provider Internal Medicine Pulmonary Disease | DX: J44.9 Chronic obstructive pulmonary disease, unspecified (principal); C34.90 Malignant neoplasm of unspecified part of unspecified bronchus or lung | CPT/HCPCS: 99212 ==

== ENCOUNTER 2023-04-12 15:15 | Observation (INO) | payer MEDICARE, MEDICAID, SELFPAY ==
[2023-04-12] VITALS (8 sets, daily range): BP systolic 94–145; BP diastolic 61–78; PULSE 89–106; RESP 17–20; TEMP 36.8–37.1; O2SAT 92–98; BMI 17.0
--- NOTE | ~2023-04-12 | XR_ITS ---
EXAMINATION: XR CHEST XR HIP, RIGHT CLINICAL INDICATIONS: Fall, pain. COMPARISON: Chest and pelvis 03/31/2023. TECHNIQUE: Chest 2 views. Right hip 2 views. FINDINGS: RIGHT HIP: There is no visible acute fracture, dislocation or subluxation seen. No bony erosive changes. The soft tissues are normal. The SI joint is normal. CHEST: The lungs are expanded with right apical pleural thickening. There is right hilar mass unchanged from previous chest x-ray. There is small right apical pneumothorax unchanged from previous study 03/31/2023. Calcified nodule in the left lung base is stable. Heart size and pulmonary vascularity is normal. No gross bony abnormality seen. XR/XR hip RT w PEL1V IMPRESSION: 1. Unremarkable right hip exam. 2. No change in the right hilar mass and probable small right apical pneumothorax unchanged from previous study 03/31/2023. 3. No acute fracture or dislocation right hip. There is right apical pleural thickening and parenchymal scarring.
--- NOTE | ~2023-04-12 | CT_ITS ---
EXAMINATION: CT ANGIOGRAM OF THE CHEST WITH AND WITHOUT CONTRAST (CT PULMONARY ANGIOGRAM FOR PE) CLINICAL INFORMATION: Reason for Exam + sob + dimer, and right sided lower rib pain COMPARISON: CT chest 12/01/2022 TECHNIQUE: Prior to contrast administration, noncontrast localization images were obtained. Subsequently, multidetector volumetric imaging was performed from the thoracic inlet to below the diaphragms following the administration of 80 mL Omnipaque 350 intravenous contrast. No contrast reaction reported Sagittal, coronal, and MIP oblique sagittal reformatted images were obtained on the CT workstation, uploaded to PACS, and reviewed. This CT examination was performed using dose optimization techniques as appropriate, variously including the following: *Automated exposure control *Adjustment of mA and/or kV according to patient size (this includes techniques or standardized protocols for targeted exams where dose is matched to indication/reason for exam; i.e. extremities or head) *Use of iterative reconstruction technique Total exam dose-length product 189 mGy-cm FINDINGS: QUALITY OF STUDY/CONTRAST BOLUS: Satisfactory. PULMONARY ARTERIES: No pulmonary emboli. THORACIC AORTA: No aneurysm. LUNGS AND PLEURA: Again seen is underlying COPD. Multiple areas of calcified pleural plaque is seen in the right hemithorax. A trace right pleural effusion is present. Multiple right-sided pleural-based lung masses are seen the largest at the right lung base medially which has increased in size from 5.4 x 4.1 cm to 6.5 x 4.8 cm (9:388). A mass just above this posteriorly has decreased in size from 4.6 x 4.0 cm to 3.6 x 2.8 cm. A cyst tiny pleural-based mass previously measuring only 4 mm now measures 2 cm (9:275). A large calcified granuloma seen in the left lower lobe. PLEURA: No pleural effusion or pneumothorax. MEDIASTINUM: Normal heart size. No pericardial effusion. Some small mediastinal lymph nodes are present with the largest in the subcarinal region.. No evidence of septal bowing or right heart strain. CORONARY ARTERY CALCIFICATION: Present CHEST WALL/AXILLA: No axillary or internal mammary lymphadenopathy. OSSEOUS STRUCTURES: No acute or suspicious osseous abnormality. No rib fractures are seen. UPPER ABDOMEN: Unremarkable. No reflux of contrast into the hepatic veins to suggest elevated right heart pressures. CT/CT angio chest PE protocol IMPRESSION: 1. No evidence of pulmonary emboli. 2. Multiple pleural-based masses in the right hemithorax. One of these has decreased in size but the others have increased in size. VTE: negative.
--- NOTE | ~2023-04-12 | CT_ITS ---
EXAMINATION: CT ABDOMEN AND PELVIS WITH CONTRAST CLINICAL INFORMATION: Right upper quadrant pain after fall COMPARISON: CT abdomen pelvis 11/16/2021 TECHNIQUE: Multidetector volumetric images were obtained from the superior aspect of the liver through the pubic symphysis following administration 85 mL of Omnipaque 350 intravenous contrast. Sagittal and coronal reformatted images were obtained on the technologist's workstation. Oral contrast: No This CT examination was performed using dose optimization techniques as appropriate, variously including the following: *Automated exposure control *Adjustment of mA and/or kV according to patient size (this includes techniques or standardized protocols for targeted exams where dose is matched to indication/reason for exam; i.e. extremities or head) *Use of iterative reconstruction technique DLP: 224 mGy-cm FINDINGS: LUNG BASES: See report of chest CT performed contemporaneously. LIVER, GALLBLADDER, AND BILIARY TREE: The liver is normal in size, shape, and attenuation. No focal hepatic lesion or biliary ductal dilatation is present. The gallbladder is unremarkable with no evidence of radiopaque gallstones, gallbladder wall thickening, or obvious pericholecystic inflammatory changes. PANCREAS: Unremarkable. SPLEEN: Unremarkable. ADRENAL GLANDS: Unremarkable. KIDNEYS AND URETERS: The kidneys are normal in size, shape, and attenuation. No hydronephrosis, hydroureter, or calculi seen. No perinephric stranding. BLADDER: A small layering calculus is present in the bladder on the right. At the time of the prior study, a much larger stone burden in the bladder was present. GASTROINTESTINAL TRACT: Diverticular changes and mucosal thickening are present in the sigmoid colon, unchanged when compared to the prior exam. No evidence of acute diverticulitis. The small and large bowel are otherwise unremarkable. The previously seen inflammatory change around the ascending colon seen in 2020 is no longer present. The previously noted 1.4 cm calcification associated with a small bowel loop in the right lower quadrant is unchanged. The appendix is is not identified but there is no evidence of appendicitis. ABDOMINAL WALL: No significant hernia is appreciated. LYMPH NODES: No retroperitoneal lymphadenopathy. VASCULAR: Calcific and noncalcific plaque present in the aorta in the iliofemoral vessels without aneurysm. PELVIC VISCERA: There is mild BPH. OSSEOUS STRUCTURES: Degenerative changes are present spine with scoliosis convex to left. Small bone islands are present in the right sacrum and right iliac bone. No bony destructive lesions are seen. CT/CT abdomen pelvis w IV con IMPRESSION: 1. No evidence of a traumatic injury in the abdomen or pelvis and cause for the patient's abdominal pain has not been found. Incidental note made of: 1. Small bladder calculus. 2. Colonic diverticulosis without diverticulitis. 3. Mild BPH. 4. Degenerative changes in the spine. Fleischner guidelines were followed.
--- NOTE | ~2023-04-12 | CT_ITS ---
EXAMINATION: CT brain and CT cervical spine without contrast. CLINICAL INDICATION: Fall, head strike. COMPARISON: MR brain 08/13/2022. TECHNIQUE: 5 mm thin axial and reformatted 2 mm thin sagittal coronal images of brain were obtained. Subsequently axial 3 minutes thin and reformatted 2 mm thin images of cervical spine were obtained. DLP 911. This CT examination was performed using dose optimization technique as appropriate, variously including the following: Automated exposure control Adjustment of MA and/or KV according to patient size(this includes techniques or standardized protocols for targeted exams where dose is matched to indication/reason for exam; extremities or head. Use of iterative reconstruction techniques. FINDINGS: Brain: There is no acute intra-axial, extra-axial bleed, masses, collection midline shift. There is no acute infarction evolution. There is no edema. There is diffuse periventricular hypodensity in both cerebral hemispheres without mass effect. The lateral ventricles are symmetrical in size and configuration but mildly enlarged. The james to white matter difference is maintained. Bone windows reveal no calvarial abnormality. There is no scalp soft tissue abnormality. Cervical spine: There is normal cervical lordosis. There is mild dextroscoliosis. The vertebral heights are normal. There is grade 1 retrolisthesis C3 over C2 and C4 over C5. There is moderate loss of C3-C4 C5-C6 disc heights. Rest the disc heights are maintained normal. The craniovertebral junction and the C1-C2 alignment is normal. There is moderate spondylosis at the C1-C2, C2-C3 and C5-C6 disc levels. No visible acute fracture, dislocation or subluxation seen. The paravertebral soft tissues are normal. There is widely patent. Mild emphysematous changes seen in both lung apices with bilateral apical scarring. There are calcified pleural plaques right lung apex. CT/CT cervical spine wo IV con IMPRESSION: 1. No acute intracranial process seen. 2. There is no acute fracture, dislocation or subluxation in cervical spine. There is grade 1 retrolisthesis C3 over C2 and C4 over C5. There are degenerative disc changes C3-C4 and C5-C6 disc levels.
--- NOTE | ~2023-04-12 | XR_ITS ---
EXAMINATION: XR CHEST XR HIP, RIGHT CLINICAL INDICATIONS: Fall, pain. COMPARISON: Chest and pelvis 03/31/2023. TECHNIQUE: Chest 2 views. Right hip 2 views. FINDINGS: RIGHT HIP: There is no visible acute fracture, dislocation or subluxation seen. No bony erosive changes. The soft tissues are normal. The SI joint is normal. CHEST: The lungs are expanded with right apical pleural thickening. There is right hilar mass unchanged from previous chest x-ray. There is small right apical pneumothorax unchanged from previous study 03/31/2023. Calcified nodule in the left lung base is stable. Heart size and pulmonary vascularity is normal. No gross bony abnormality seen. XR/XR chest 2V IMPRESSION: 1. Unremarkable right hip exam. 2. No change in the right hilar mass and probable small right apical pneumothorax unchanged from previous study 03/31/2023. 3. No acute fracture or dislocation right hip. There is right apical pleural thickening and parenchymal scarring.
--- NOTE | 2023-04-12 15:27 | ED_ITS ---
HPI - SOB/Dyspnea General Chief Complaint: General Medical <Christal Hopson NP - Last Filed: 04/12/23 15:32> Stated Complaint: asthma/problems breathing <Christal Hopson NP - Last Filed: 04/12/23 15:32> Time Seen by Provider: 04/12/23 16:20 <Christal Hopson NP - Last Filed: 04/12/23 15:32> Source: patient <PHUONG Green - Last Filed: 04/12/23 23:57> Mode of arrival: ambulatory <PHUONG Green - Last Filed: 04/12/23 23:57> Limitations: no limitations <PHUONG Green Last Filed: 04/12/23 23:57> History of Present Illness HPI Narrative: This is a 77-year-old male history of COPD, hypercholesterolemia, diabetes, lung cancer, tubular adenoma of colon, tobacco dependence presenting to the emergency department with complaints of subjective fevers and chills, productive cough, fatigue, malaise, shortness of breath and wheezing for the past 4 days. Patient has taken inhalers at with little to no relief. He reports that he feels like this is his typical asthma. Patient also complaining of right-sided rib pain, abdominal pain status post fall about a week ago. Patient denies loss of consciousness, not on blood thinners. At this time he denies chest pain, nausea, vomiting, hematemesis, hematochezia, melena, sick contacts <PHUONG Green Last Filed: 04/12/23 23:57> Related Data Home Medications: Home Medications Medication Instructions Recorded Confirmed metformin 500 mg tablet 500 mg PO DAILY 09/28/20 08/28/22 levothyroxine 112 mcg tablet 112 mcg PO DAILY@0612/01/20 08/28/22 omeprazole 20 mg capsule,delayed 20 mg PO DAILY@0612/01/20 08/28/22 release ipratropium 0.5 mg-albuterol 3 mg 1 vial inhalation QID PRN asthma 08/06/21 08/28/22 (2.5 mg base)/3 mL nebulization soln mirtazapine 7.5 mg tablet 7.5 mg PO BEDTIME PRN Sleep 11/16/21 08/28/22 duloxetine 30 mg capsule,delayed 1 cap PO DAILY 01/29/22 08/28/22 release nabumetone 500 mg tablet 1 tab PO BID PRN knee pain 01/29/22 08/28/22 fluticasone fur. 200 mcg-umeclid 1 puff inhalation DAILY 08/28/22 08/28/22 62.5 mcg-vilant 25 mcg inhalat.powder (Trelegy Ellipta) multivitamin with folic acid 400 1 tab PO DAILY 08/28/22 08/28/22 mcg tablet (Daily-Leslie (with folic acid)) Previous Rx's Medication Instructions Recorded pyridoxine (vitamin B6) 100 mg 100 mg PO DAILY 90 days #90 tabs 08/05/22 tablet Ventolin HFA 90 mcg/actuation 2 puff PO Q6H PRN shortness of 11/26/22 aerosol inhaler (albuterol sulfate) breath or wheezing #18 ea albuterol sulfate 90 mcg/actuation 2 inh inhalation Q4-6H PRN 12/01/22 breath activated powder inhaler shortness of breath or wheezing #1 ea azithromycin 250 mg tablet See Rx Instructions PO .COMPLEX #6 03/31/23 tabs prednisone 20 mg tablet 40 mg PO DAILY #10 tabs 03/31/23 theophylline 400 mg 400 mg PO DAILY #30 tabs 04/02/23 tablet,extended release 24 hr <Christal Hopson NP - Last Filed: 04/12/23 15:32> Allergies/Adverse Reactions: Allergies Allergy/AdvReac Type Severity Reaction Status Date / Time shellfish derived Allergy Severe ANAPHYLAXIS Verified 04/12/23 15:25 [SHELLFISH DERIVED] pollen extracts [POLLEN] Allergy Intermediate RUNNING Verified 04/12/23 15:25 NOSE, WATERY EYES, SNEEZING varenicline [VARENICLINE] AdvReac Unknown PALPITATION Verified 04/12/23 15:25 S <Christal Hopson NP - Last Filed: 04/12/23 15:32> Review of Systems Review of Systems: Constitutional : No Weight loss, + Fever, + Chills, + Fatigue, + Malaise ENT/Mouth : No sore throat, No Rhinorrhea Eyes: No Eye Pain, No Swelling, No Redness Cardiovascular : No Chest Pain, + SOB, + Dyspnea on Exertion, No Orthopnea, No Edema, No Palpitations Respiratory : No Cough, No Sputum, + Wheezing Gastrointestinal : No Nausea, No Vomiting, No Diarrhea, No Constipation, + abdominal Pain, No Hematochezia, No Melena Genitourinary : No Dysuria, No Urinary Frequency, No Hematuria, Musculoskeletal : No joint pain, No Myalgias, No Joint Swelling Skin : No Skin Lesions, No rash Neuro : No Weakness, No Numbness, No Dizziness, No Headache Psych : No Anxiety/Panic, No Depression All other systems reviewed and are negative <PHUONG Green - Last Filed: 04/12/23 23:57> Yes all other systems are reviewed and are negative <PHUONG Green - Last Filed: 04/12/23 23:57> [facility] Past Medical History Attestation statement: The following information was validated with the patient. <PHUONG Green - Last Filed: 04/12/23 23:57> Source: old records reviewed and nursing notes reviewed <PHUONG Green - Last Filed: 04/12/23 23:57> Medical History: Medical History Abnormal PET scan of colon Asthma Chronic respiratory failure COPD (chronic obstructive pulmonary disease) Diabetes GERD (gastroesophageal reflux disease) Hypertension Hypothyroidism Osteoarthritis Osteoporosis Oxygen dependent Sepsis Tobacco dependence Ureteral calculi <Christal Hopson NP - Last Filed: 04/12/23 15:32> Surgical History: Surgical History History of appendectomy History of cataract surgery (~2011) History of lithotripsy (~2008) History of lung biopsy (~2021) <Christal Hopson NP - Last Filed: 04/12/23 15:32> Family History Family History: Family History Father Throat cancer Brother Lung cancer Other Hypertension <Christal Hopson NP - Last Filed: 04/12/23 15:32> Social History Social History: Social History Household Members: Spouse Housing: Apartment Are you a primary wild animal caretaker to a significant other at home: No Do you presently have visiting nurse or other home services: No Alcohol intake: never Patient Tobacco Use Status: Current everyday Tobacco user Tobacco use type: Cigarette Cigarette Packs Per Day: 0.5 Cigarettes Per Day: 8 Years Smoked: 60 Smoked in Last 30 Days: Yes e-Cigarette/Vaping Use: Currently Using Second Hand Smoke Exposure: No Use of substances other than those prescribed or required for medical reasons: No Advance Directives: No Advance Directives Information Provided: No Advance Directives Date on File: 12/18/20 service: No Current occupational status: unemployed and retired <Christal Hopson NP - Last Filed: 04/12/23 15:32> Physical Exam 2 Vital Signs: Vital Signs: Last Vital Signs Temp 98.7 F 04/12/23 20:19 Pulse 101 H 04/12/23 22:11 Resp 18 04/12/23 22:11 BP 125/61 04/12/23 22:11 Pulse Ox 93 04/12/23 22:11 O2 Del Method Nasal Cannula 04/12/23 22:11 O2 Flow Rate 2 04/12/23 22:11 BMI result Body Mass Index 17.0 <Christal Hopson NP - Last Filed: 04/12/23 15:32> Vital Signs: Last Vital Signs Temp 98.7 F 04/12/23 20:19 Pulse 101 H 04/12/23 22:11 Resp 18 04/12/23 22:11 BP 125/61 04/12/23 22:11 Pulse Ox 93 04/12/23 22:11 O2 Del Method Nasal Cannula 04/12/23 22:11 O2 Flow Rate 2 04/12/23 22:11 BMI result Body Mass Index 17.0 vss <PHUONG Green - Last Filed: 04/12/23 23:57> Appearance: Alert.? Oriented X3.? No acute distress.? Head: Normocephalic, atraumatic, no step-offs or deformities Eyes: Pupils equal, round and reactive to light.? ENT: Pharynx normal.? Neck: Normal inspection.? Neck supple.? CVS: Normal heart rate and rhythm.? Pulses normal.?+ tenderness to palpation to right lower anterior chest wall. Respiratory: No respiratory distress.? Breath sounds with diminished breath sounds bilaterally and diffuse wheezing throughout.? Abdomen: Soft and + tenderness right upper quadrant.? Skin: Skin warm and dry.? Normal skin color.? Normal skin turgor.? Extremities: No lower extremity edema.? No calf ttp. 5/5 strength to bilateral upper and lower extremities Neuro: Oriented X 3.? No motor deficit.? No sensory deficit. CN 2-12 intact <PHUONG Green - Last Filed: 04/12/23 23:57> Course Course Course Narrative: This is a rapid medical exam. Deferred additional HPI, ROS, PE to primary provider. 77-year-old male past medical history significant for COPD, arthritis, hyperlipidemia, thyroid, diabetes here with complaints of 4 days of productive cough, shortness of breath, wheezing, also c/o right hip pain which radiates to abdomen since Wednesday. Had fall 10 days ago and reports negative x-ray. Having difficulty walking. Nursing is concerned that in triage patient has an irregular pulse. Will obtain EKG Will obtain labs, chest x-ray, right hip x-ray <Christal Hopson NP - Last Filed: 04/12/23 15:32> Reevaluation(s) Reevaluation #1: CBC with a microcytic anemia appears to be around patient's baseline. D-dimer elevated, CTA ordered. Chemistry with no acute electrolyte abnormalities requiring intervention. Troponin negative, BNP within normal limits. UA without infection. Chest x-ray with no change in right hilar mass. No acute fracture dislocation of right hip. Head CT no acute intracranial process seen. No acute fracture dislocation or subluxation in cervical spine. CT of the abdomen pelvis with no evidence of traumatic injury in abdomen or pelvis. Mild PT BPH and bladder calculus noted. CTA of chest with no evidence of PE. Multiple pleural-based masses in the right hemithorax. One of these has decreased in size. <PHUONG Green - Last Filed: 04/12/23 23:57> Time: 19:15 <PHUONG Green - Last Filed: 04/12/23 23:57> Reevaluation #2: Ambulated patient he desatted down to 86% became winded. Placed him on 2 L nasal cannula. Continues to have significant wheezing. Magnesium, Solu- Medrol an additional DuoNeb ordered at this time. <PHUONG Green - Last Filed: 04/12/23 23:57> Time: 21:42 <PHUONG Green - Last Filed: 04/12/23 23:57> Reevaluation #3: Patient continues to have significant wheezing. Still feeling short of breath requiring oxygen. Patient will be admitted to the hospitalist team. <PHUONG Green - Last Filed: 04/12/23 23:57> Time: 23:57 <PHUONG Green - Last Filed: 04/12/23 23:57> Medications Administered Discontinued Medications Generic Name Dose Route Start Last Admin Trade Name Freq PRN Reason Stop Dose Admin Albuterol/Ipratropium 3 ml 04/12/23 16:59 04/12/23 17:22 Albuterol/Iprat 2.5/0.5mg 3 Ml Ampul.Neb INHALE 04/12/23 17:00 3 ml ONCE ONE Administration Albuterol/Ipratropium 3 ml 04/12/23 21:29 04/12/23 21:40 Albuterol/Iprat 2.5/0.5mg 3 Ml Ampul.Neb INHALE 04/12/23 21:30 3 ml ONCE ONE Administration Magnesium Sulfate 2 gm in 50 mls @ 25 mls/hr 04/12/23 21:39 04/12/23 21:52 Magnesium Sulfate/H2o IV 04/12/23 23:38 25 mls/hr ONCE ONE Administration Iohexol 100 ml 04/12/23 18:31 04/12/23 18:31 Iohexol 350 Mg/Ml 100 Ml Infus..Btl IV 04/12/23 18:32 85 ml ONCE ONE Administration Methylprednisolone Sodium Succinate 125 mg 04/12/23 21:39 04/12/23 21:44 Methylprednisolone Sod Succ 125 Mg/2 Ml Vial IVPUSH 04/12/23 21:40 125 mg ONCE ONE Administration Morphine Sulfate 2 mg 04/12/23 21:29 04/12/23 21:44 Morphine Sulfate 2 Mg/Ml Cartridge IVPUSH 04/12/23 21:30 2 mg ONCE ONE Administration Protocol <Christal Hopson NP - Last Filed: 04/12/23 15:32> Medications Administered Discontinued Medications Generic Name Dose Route Start Last Admin Trade Name Ru PRN Reason Stop Dose Admin Albuterol/Ipratropium 3 ml 04/12/23 16:59 04/12/23 17:22 Albuterol/Iprat 2.5/0.5mg 3 Ml Ampul.Neb INHALE 04/12/23 17:00 3 ml ONCE ONE Administration Albuterol/Ipratropium 3 ml 04/12/23 21:29 04/12/23 21:40 Albuterol/Iprat 2.5/0.5mg 3 Ml Ampul.Neb INHALE 04/12/23 21:30 3 ml ONCE ONE Administration Magnesium Sulfate 2 gm in 50 mls @ 25 mls/hr 04/12/23 21:39 04/12/23 21:52 Magnesium Sulfate/H2o IV 04/12/23 23:38 25 mls/hr ONCE ONE Administration Iohexol 100 ml 04/12/23 18:31 04/12/23 18:31 Iohexol 350 Mg/Ml 100 Ml Infus..Btl IV 04/12/23 18:32 85 ml ONCE ONE Administration Methylprednisolone Sodium Succinate 125 mg 04/12/23 21:39 04/12/23 21:44 Methylprednisolone Sod Succ 125 Mg/2 Ml Vial IVPUSH 04/12/23 21:40 125 mg ONCE ONE Administration Morphine Sulfate 2 mg 04/12/23 21:29 04/12/23 21:44 Morphine Sulfate 2 Mg/Ml Cartridge IVPUSH 04/12/23 21:30 2 mg ONCE ONE Administration Protocol <PHUONG Green - Last Filed: 04/12/23 23:57> Medical Decision Making Medical Decision Making [facility] Narrative: 1708 77-year-old male presents with shortness of breath, productive cough, wheezing, subjective fevers and chills also reports fall about a week ago reporting abdominal pain, rib pain. No loss of consciousness. Not on blood thinners. Physical exam significant for breath sounds with diminished breath sounds bilaterally and diffuse wheezing throughout.? Patient has tenderness to palpation to right lower anterior chest wall and right upper quadrant of a bdomen. Regular rate and rhythm. Global weakness appreciated no focal neuro deficits. Concerns for chronic lung disease versus acute asthma exacerbation. Will rule out pneumonia, PE, ACS. Will also rule out electrolyte abnormalities. No signs of flail chest, pneumothorax. Will rule out traumatic injuries to chest, abdomen and pelvis. Plan labs, imaging, urine, EKG <PHUONG Green - Last Filed: 04/12/23 23:57> Differential Diagnosis Differential Diagnoses: The differential diagnosis associated with the presentation includes <PHUONG Green - Last Filed: 04/12/23 23:57> Concerns for chronic lung disease versus acute asthma exacerbation. Will rule out pneumonia, PE, ACS. Will also rule out electrolyte abnormalities. No signs of flail chest, pneumothorax. Will rule out traumatic injuries to chest, abdomen and pelvis. <PHUONG Green - Last Filed: 04/12/23 23:57> Admission/Observation Consideration of admission/observation: Escalation of care including admission/observation considered <PHUONG Green - Last Filed: 04/12/23 23:57> Lab Data MDM Lab Attestation statement: I reviewed the patient's lab results. <PHUONG Green - Last Filed: 04/12/23 23:57> Result Diagrams: 04/12/23 16:40 04/12/23 16:40 <Christal Hopson NP - Last Filed: 04/12/23 15:32> Labs: Lab Results 04/12/23 04/12/23 04/12/23 Range/Units 16:40 16:40 16:40 WBC 8.8 (4.8-10.8) X10*3/uL RBC 4.71 (4.60-5.80) X10*6/uL Hgb 10.8 L (14.0-18.0) g/dl Hct 36.4 L (42.0-52.0) % MCV 77.3 L (80.0-98.0) fL MCH 22.9 L (27.0-33.0) pg MCHC 29.7 L (31.0-36.0) g/dl RDW 16.2 H (11.0-16.0) % Plt Count 497 H (160-400) X10*3/uL MPV 9.0 L (9.4-12.4) fL Immature Gran % (Auto) 0.5 H (0.0-0.4) % Neut % (Auto) 70.1 (45-73) % Lymph % (Auto) 11.9 L (20-40) % [place] % (Auto) 6.0 (2-11) % Eos % (Auto) 10.9 H (0-4) % Baso % (Auto) 0.6 (0-2) % Lymph # (Auto) 1.0 L (1.2-4.9) X10*3/uL [place] # (Auto) 0.5 (0.1-1.2) X10*3/uL Eos # (Auto) 1.0 H (0.0-0.4) X10*3/uL Baso # (Auto) 0.1 (0.0-0.2) X10*3/uL Abs Immat Gran (auto) 0.04 H (0.00-0.03) X10*3/uL Absolute Neuts (auto) 6.2 (2.0-8.3) x10*3/uL Absolute Nucleated RBC 0.000 (0.0-0.012) X10*3/uL Nucleated RBC % (auto) 0.0 (0.0-0.2) /100WBC PT 13.0 (10.0-13.1) SEC INR 1.1 (0.9-1.1) D-Dimer High Sensitivty 515 NG/ML Sodium 138 (135-145) mmol/L Potassium 4.4 (3.3-5.1) mmol/L Chloride 103 (96-108) mmol/L Carbon Dioxide 28 (22-29) mmol/L Anion Gap 11 L (12-20) BUN 6 L (9-16) mg/dL Creatinine 0.82 (0.5-1.4) mg/dL Estim Creat Clear Calc 50.9 Estimated GFR > 60 Random Glucose 139 H (60-115) mg/dL Lactic Acid (0.5-2.0) mmol/L Calcium 9.0 D (8.4-10.2) mg/dL Magnesium 2.0 (1.6-2.6) mg/dL Total Bilirubin 0.3 (0.0-1.0) mg/dL Direct Bilirubin 0.1 (0.0-0.5) mg/dL AST 14 (5-37) U/L ALT 6 (0-40) U/L Alkaline Phosphatase 152 H (39-117) U/L Troponin I High Sens (<3.5-35.0) ng/L B-Natriuretic Peptide (<100) pg/mL Total Protein 6.5 (6.5-8.0) g/dL Albumin 3.5 (3.5-5.0) g/dL Lipase 10 (8-78) U/L Urine Color Urine Appearance Urine pH (5.0-9.0) Ur Specific [place] (1.005-1.025) Urine Protein (Neg-Trace) mg/dL Urine Glucose (UA) (Negative) mg/dL Urine Ketones (Negative) mg/dL Urine Blood (Negative) Urine Nitrite (Negative) Ur Leukocyte Esterase (Negative) 04/12/23 04/12/23 04/12/23 Range/Units 16:40 16:40 16:40 WBC (4.8-10.8) X10*3/uL RBC (4.60-5.80) X10*6/uL Hgb (14.0-18.0) g/dl Hct (42.0-52.0) % MCV (80.0-98.0) fL MCH (27.0-33.0) pg MCHC (31.0-36.0) g/dl RDW (11.0-16.0) % Plt Count (160-400) X10*3/uL MPV (9.4-12.4) fL Immature Gran % (Auto) (0.0-0.4) % Neut % (Auto) (45-73) % Lymph % (Auto) (20-40) % [place] % (Auto) (2-11) % Eos % (Auto) (0-4) % Baso % (Auto) (0-2) % Lymph # (Auto) (1.2-4.9) X10*3/uL [place] # (Auto) (0.1-1.2) X10*3/uL Eos # (Auto) (0.0-0.4) X10*3/uL Baso # (Auto) (0.0-0.2) X10*3/uL Abs Immat Gran (auto) (0.00-0.03) X10*3/uL Absolute Neuts (auto) (2.0-8.3) x10*3/uL Absolute Nucleated RBC (0.0-0.012) X10*3/uL Nucleated RBC % (auto) (0.0-0.2) /100WBC PT (10.0-13.1) SEC INR (0.9-1.1) D-Dimer High Sensitivty NG/ML Sodium (135-145) mmol/L Potassium (3.3-5.1) mmol/L Chloride (96-108) mmol/L Carbon Dioxide (22-29) mmol/L Anion Gap (12-20) BUN (9-16) mg/dL Creatinine (0.5-1.4) mg/dL Estim Creat Clear Calc Estimated GFR Random Glucose (60-115) mg/dL Lactic Acid 1.4 (0.5-2.0) mmol/L Calcium (8.4-10.2) mg/dL Magnesium (1.6-2.6) mg/dL Total Bilirubin (0.0-1.0) mg/dL Direct Bilirubin (0.0-0.5) mg/dL AST (5-37) U/L ALT (0-40) U/L Alkaline Phosphatase (39-117) U/L Troponin I High Sens < 2.7 D (<3.5-35.0) ng/L B-Natriuretic Peptide 20 (<100) pg/mL Total Protein (6.5-8.0) g/dL Albumin (3.5-5.0) g/dL Lipase (8-78) U/L Urine Color Urine Appearance Urine pH (5.0-9.0) Ur Specific [place] (1.005-1.025) Urine Protein (Neg-Trace) mg/dL Urine Glucose (UA) (Negative) mg/dL Urine Ketones (Negative) mg/dL Urine Blood (Negative) Urine Nitrite (Negative) Ur Leukocyte Esterase (Negative) 04/12/23 04/12/23 Range/Units 18:46 21:37 WBC (4.8-10.8) X10*3/uL RBC (4.60-5.80) X10*6/uL Hgb (14.0-18.0) g/dl Hct (42.0-52.0) % MCV (80.0-98.0) fL MCH (27.0-33.0) pg MCHC (31.0-36.0) g/dl RDW (11.0-16.0) % Plt Count (160-400) X10*3/uL MPV (9.4-12.4) fL Immature Gran % (Auto) (0.0-0.4) % Neut % (Auto) (45-73) % Lymph % (Auto) (20-40) % [place] % (Auto) (2-11) % Eos % (Auto) (0-4) % Baso % (Auto) (0-2) % Lymph # (Auto) (1.2-4.9) X10*3/uL [place] # (Auto) (0.1-1.2) X10*3/uL Eos # (Auto) (0.0-0.4) X10*3/uL Baso # (Auto) (0.0-0.2) X10*3/uL Abs Immat Gran (auto) (0.00-0.03) X10*3/uL Absolute Neuts (auto) (2.0-8.3) x10*3/uL Absolute Nucleated RBC (0.0-0.012) X10*3/uL Nucleated RBC % (auto) (0.0-0.2) /100WBC PT (10.0-13.1) SEC INR (0.9-1.1) D-Dimer High Sensitivty NG/ML Sodium (135-145) mmol/L Potassium (3.3-5.1) mmol/L Chloride (96-108) mmol/L Carbon Dioxide (22-29) mmol/L Anion Gap (12-20) BUN (9-16) mg/dL Creatinine (0.5-1.4) mg/dL Estim Creat Clear Calc Estimated GFR Random Glucose (60-115) mg/dL Lactic Acid (0.5-2.0) mmol/L Calcium (8.4-10.2) mg/dL Magnesium (1.6-2.6) mg/dL Total Bilirubin (0.0-1.0) mg/dL Direct Bilirubin (0.0-0.5) mg/dL AST (5-37) U/L ALT (0-40) U/L Alkaline Phosphatase (39-117) U/L Troponin I High Sens < 2.7 (<3.5-35.0) ng/L B-Natriuretic Peptide (<100) pg/mL Total Protein (6.5-8.0) g/dL Albumin (3.5-5.0) g/dL Lipase (8-78) U/L Urine Color Yellow Urine Appearance Clear Urine pH 6.0 (5.0-9.0) Ur Specific [place] 1.020 (1.005-1.025) Urine Protein Trace (Neg-Trace) mg/dL Urine Glucose (UA) Negative (Negative) mg/dL Urine Ketones Trace (Negative) mg/dL Urine Blood Negative (Negative) Urine Nitrite Negative (Negative) Ur Leukocyte Esterase Negative (Negative) <Christal Hopson, MARINE STEWARD - Last Filed: 04/12/23 15:32> Lab Results 04/12/23 04/12/23 04/12/23 Range/Units 16:40 16:40 16:40 WBC 8.8 (4.8-10.8) X10*3/uL RBC 4.71 (4.60-5.80) X10*6/uL Hgb 10.8 L (14.0-18.0) g/dl Hct 36.4 L (42.0-52.0) % MCV 77.3 L (80.0-98.0) fL MCH 22.9 L (27.0-33.0) pg MCHC 29.7 L (31.0-36.0) g/dl RDW 16.2 H (11.0-16.0) % Plt Count 497 H (160-400) X10*3/uL MPV 9.0 L (9.4-12.4) fL Immature Gran % (Auto) 0.5 H (0.0-0.4) % Neut % (Auto) 70.1 (45-73) % Lymph % (Auto) 11.9 L (20-40) % [place] % (Auto) 6.0 (2-11) % Eos % (Auto) 10.9 H (0-4) % Baso % (Auto) 0.6 (0-2) % Lymph # (Auto) 1.0 L (1.2-4.9) X10*3/uL [place] # (Auto) 0.5 (0.1-1.2) X10*3/uL Eos # (Auto) 1.0 H (0.0-0.4) X10*3/uL Baso # (Auto) 0.1 (0.0-0.2) X10*3/uL Abs Immat Gran (auto) 0.04 H (0.00-0.03) X10*3/uL Absolute Neuts (auto) 6.2 (2.0-8.3) x10*3/uL Absolute Nucleated RBC 0.000 (0.0-0.012) X10*3/uL Nucleated RBC % (auto) 0.0 (0.0-0.2) /100WBC PT 13.0 (10.0-13.1) SEC INR 1.1 (0.9-1.1) D-Dimer High Sensitivty 515 NG/ML Sodium 138 (135-145) mmol/L Potassium 4.4 (3.3-5.1) mmol/L Chloride 103 (96-108) mmol/L Carbon Dioxide 28 (22-29) mmol/L Anion Gap 11 L (12-20) BUN 6 L (9-16) mg/dL Creatinine 0.82 (0.5-1.4) mg/dL Estim Creat Clear Calc 50.9 Estimated GFR > 60 Random Glucose 139 H (60-115) mg/dL Lactic Acid (0.5-2.0) mmol/L Calcium 9.0 D (8.4-10.2) mg/dL Magnesium 2.0 (1.6-2.6) mg/dL Total Bilirubin 0.3 (0.0-1.0) mg/dL Direct Bilirubin 0.1 (0.0-0.5) mg/dL AST 14 (5-37) U/L ALT 6 (0-40) U/L Alkaline Phosphatase 152 H (39-117) U/L Troponin I High Sens (<3.5-35.0) ng/L B-Natriuretic Peptide (<100) pg/mL Total Protein 6.5 (6.5-8.0) g/dL Albumin 3.5 (3.5-5.0) g/dL Lipase 10 (8-78) U/L Urine Color Urine Appearance Urine pH (5.0-9.0) Ur Specific [place] (1.005-1.025) Urine Protein (Neg-Trace) mg/dL Urine Glucose (UA) (Negative) mg/dL Urine Ketones (Negative) mg/dL Urine Blood (Negative) Urine Nitrite (Negative) Ur Leukocyte Esterase (Negative) 04/12/23 04/12/23 04/12/23 Range/Units 16:40 16:40 16:40 WBC (4.8-10.8) X10*3/uL RBC (4.60-5.80) X10*6/uL Hgb (14.0-18.0) g/dl Hct (42.0-52.0) % MCV (80.0-98.0) fL MCH (27.0-33.0) pg MCHC (31.0-36.0) g/dl RDW (11.0-16.0) % Plt Count (160-400) X10*3/uL MPV (9.4-12.4) fL Immature Gran % (Auto) (0.0-0.4) % Neut % (Auto) (45-73) % Lymph % (Auto) (20-40) % [place] % (Auto) (2-11) % Eos % (Auto) (0-4) % Baso % (Auto) (0-2) % Lymph # (Auto) (1.2-4.9) X10*3/uL [place] # (Auto) (0.1-1.2) X10*3/uL Eos # (Auto) (0.0-0.4) X10*3/uL Baso # (Auto) (0.0-0.2) X10*3/uL Abs Immat Gran (auto) (0.00-0.03) X10*3/uL Absolute Neuts (auto) (2.0-8.3) x10*3/uL Absolute Nucleated RBC (0.0-0.012) X10*3/uL Nucleated RBC % (auto) (0.0-0.2) /100WBC PT (10.0-13.1) SEC INR (0.9-1.1) D-Dimer High Sensitivty NG/ML Sodium (135-145) mmol/L Potassium (3.3-5.1) mmol/L Chloride (96-108) mmol/L Carbon Dioxide (22-29) mmol/L Anion Gap (12-20) BUN (9-16) mg/dL Creatinine (0.5-1.4) mg/dL Estim Creat Clear Calc Estimated GFR Random Glucose (60-115) mg/dL Lactic Acid 1.4 (0.5-2.0) mmol/L Calcium (8.4-10.2) mg/dL Magnesium (1.6-2.6) mg/dL Total Bilirubin (0.0-1.0) mg/dL Direct Bilirubin (0.0-0.5) mg/dL AST (5-37) U/L ALT (0-40) U/L Alkaline Phosphatase (39-117) U/L Troponin I High Sens < 2.7 D (<3.5-35.0) ng/L B-Natriuretic Peptide 20 (<100) pg/mL Total Protein (6.5-8.0) g/dL Albumin (3.5-5.0) g/dL Lipase (8-78) U/L Urine Color Urine Appearance Urine pH (5.0-9.0) Ur Specific [place] (1.005-1.025) Urine Protein (Neg-Trace) mg/dL Urine Glucose (UA) (Negative) mg/dL Urine Ketones (Negative) mg/dL Urine Blood (Negative) Urine Nitrite (Negative) Ur Leukocyte Esterase (Negative) 04/12/23 04/12/23 Range/Units 18:46 21:37 WBC (4.8-10.8) X10*3/uL RBC (4.60-5.80) X10*6/uL Hgb (14.0-18.0) g/dl Hct (42.0-52.0) % MCV (80.0-98.0) fL MCH (27.0-33.0) pg MCHC (31.0-36.0) g/dl RDW (11.0-16.0) % Plt Count (160-400) X10*3/uL MPV (9.4-12.4) fL Immature Gran % (Auto) (0.0-0.4) % Neut % (Auto) (45-73) % Lymph % (Auto) (20-40) % [place] % (Auto) (2-11) % Eos % (Auto) (0-4) % Baso % (Auto) (0-2) % Lymph # (Auto) (1.2-4.9) X10*3/uL [place] # (Auto) (0.1-1.2) X10*3/uL Eos # (Auto) (0.0-0.4) X10*3/uL Baso # (Auto) (0.0-0.2) X10*3/uL Abs Immat Gran (auto) (0.00-0.03) X10*3/uL Absolute Neuts (auto) (2.0-8.3) x10*3/uL Absolute Nucleated RBC (0.0-0.012) X10*3/uL Nucleated RBC % (auto) (0.0-0.2) /100WBC PT (10.0-13.1) SEC INR (0.9-1.1) D-Dimer High Sensitivty NG/ML Sodium (135-145) mmol/L Potassium (3.3-5.1) mmol/L Chloride (96-108) mmol/L Carbon Dioxide (22-29) mmol/L Anion Gap (12-20) BUN (9-16) mg/dL Creatinine (0.5-1.4) mg/dL Estim Creat Clear Calc Estimated GFR Random Glucose (60-115) mg/dL Lactic Acid (0.5-2.0) mmol/L Calcium (8.4-10.2) mg/dL Magnesium (1.6-2.6) mg/dL Total Bilirubin (0.0-1.0) mg/dL Direct Bilirubin (0.0-0.5) mg/dL AST (5-37) U/L ALT (0-40) U/L Alkaline Phosphatase (39-117) U/L Troponin I High Sens < 2.7 (<3.5-35.0) ng/L B-Natriuretic Peptide (<100) pg/mL Total Protein (6.5-8.0) g/dL Albumin (3.5-5.0) g/dL Lipase (8-78) U/L Urine Color Yellow Urine Appearance Clear Urine pH 6.0 (5.0-9.0) Ur Specific [place] 1.020 (1.005-1.025) Urine Protein Trace (Neg-Trace) mg/dL Urine Glucose (UA) Negative (Negative) mg/dL Urine Ketones Trace (Negative) mg/dL Urine Blood Negative (Negative) Urine Nitrite Negative (Negative) Ur Leukocyte Esterase Negative (Negative) <PHUONG Green - Last Filed: 04/12/23 23:57> Independent Interpretation I performed an independent interpretation of an: CT Scan <PHUONG Green - Last Filed: 04/12/23 23:57> Radiology Impression Discussion of test interpretation with radiology: I have reviewed the radiologist's reading. <PHUONG Green - Last Filed: 04/12/23 23:57> Chronic Conditions Patient?s care impacted by: Diabetes and Cancer <PHUONG Green - Last Filed: 04/12/23 23:57> Core Measures AMI core measures followed: Yes <PHUONG Green - Last Filed: 04/12/23 23:57> Measure exclusions: not indicated <PHUONG Green - Last Filed: 04/12/23 23:57> Critical Care Time Critical Care Time Critical Care Time: No <PHUONG Green - Last Filed: 04/12/23 23:57> Discharge Plan Discharge Clinical Impression: Asthma, Shortness of breath <Christal Hopson NP - Last Filed: 04/12/23 15:32> Patient Disposition: Admitted As Inpatient <Christal Hopson NP - Last Filed: 04/12/23 15:32>
--- NOTE | 2023-04-12 15:31 | ECG_ITS ---
Test Reason : palpatations Blood Pressure : / mmHG Vent. Rate : 098 BPM Atrial Rate : 098 BPM P-R Int : 120 ms QRS Dur : 084 ms QT Int : 308 ms P-R-T Axes : 078 069 076 degrees QTc Int : 393 ms Sinus rhythm with marked sinus arrhythmia Otherwise normal ECG When compared with ECG of 31-MAR-2023 15:04, No significant change was found Referred By: Christal Hopson Electronically Signed By:Anoop Gentile
[2023-04-12 16:45] LABS: MANUAL DIFF FLAG NO
[2023-04-12 16:48] LABS: Basophils Absolute Auto 0.1 X10*3/uL (0.0-0.2); Basophils Percent Auto 0.6 % (0-2); Eosinophils Percent Auto 10.9 % (0-4); Hematocrit 36.4 % (42.0-52.0); Hemoglobin 10.8 g/dl (14.0-18.0); Imm Gran Abs Auto 0.04 X10*3/uL (0.00-0.03); Imm Gran Pct Auto 0.5 % (0.0-0.4); Lymphocytes Percent Auto 11.9 % (20-40); Mean Corpuscular HGB Conc 29.7 g/dl (31.0-36.0); Mean Corpuscular Hemoglobin 22.9 pg (27.0-33.0); Mean Corpuscular Volume 77.3 fL (80.0-98.0); Monocytes Absolute Auto 0.5 X10*3/uL (0.1-1.2); Neutrophils Absolute Auto 6.2 x10*3/uL (2.0-8.3); Neutrophils Percent Auto 70.1 % (45-73); Platelet Count 497 X10*3/uL (160-400); Red Blood Count 4.71 X10*6/uL (4.60-5.80); Red Cell Distribution Width 16.2 % (11.0-16.0); White Blood Count 8.8 X10*3/uL (4.8-10.8)
[2023-04-12 16:52] LABS: INTERNATIONAL NORM RATIO 1.1 (0.9-1.1)
[2023-04-12 17:01] LABS: Lactic Acid 1.4 mmol/L (0.5-2.0)
[2023-04-12 17:11] LABS: Alanine Aminotransferase 6 U/L (0-40); Albumin Level 3.5 g/dL (3.5-5.0); Alkaline Phosphatase 152 U/L (39-117); Anion Gap 11 (12-20); Aspartate Amino Transferase 14 U/L (5-37); Bilirubin Direct 0.1 mg/dL (0.0-0.5); Bilirubin Total 0.3 mg/dL (0.0-1.0); Blood Urea Nitrogen 6 mg/dL (9-16); Carbon Dioxide 28 mmol/L (22-29); Chloride 103 mmol/L (96-108); Creatinine Clr Calc Pharmacy 50.9; Estimated Glomerular Filt Rate > 60; Glucose Random 139 mg/dL (60-115); Lipase 10 U/L (8-78); Potassium 4.4 mmol/L (3.3-5.1); Sodium 138 mmol/L (135-145); Total Protein 6.5 g/dL (6.5-8.0); Troponin-I High Sensitivity < 2.7 ng/L (<3.5-35.0)
[2023-04-12 17:17] LABS: D Dimer High Sensitivity 515 NG/ML
[2023-04-12] MEDS: Albuterol/Iprat 2.5/0.5MG 3 ML AMPUL.NEB INHALE ×2 (17:22→21:40)
[2023-04-12 17:30] LABS: B Type Natriuretic Peptide 20 pg/mL (<100)
--- NOTE | 2023-04-12 18:10 | PC.NURSE ---
pt alert and oriented, skin appropriate for ethnicity, respirations even and unlabored, ls expiatory wheezing, reports right abd pain, abd soft but slightly tender, ns on the monitor.
[2023-04-12] MEDS: iohexoL 350 MG/ML 100 ML INFUS..BTL IV (18:31)
[2023-04-12 18:52] LABS: Appearance Urine Clear; Color Urine Yellow; Glucose Urine UA Negative (Negative); Leukocyte Esterase Urine Negative (Negative); Nitrite Urine Negative (Negative); Urine Blood Negative (Negative); Urine Ketones Trace mg/dL (Negative); Urine Protein Trace mg/dL (Neg-Trace)
[2023-04-12] MEDS: Morphine Sulfate 2 MG/ML CARTRIDGE IVPUSH (21:44)
[2023-04-12] MEDS: methylPREDNISolone Sod Succ 125 MG/2 ML VIAL IVPUSH (21:44)
[2023-04-12] MEDS: Magnesium Sulfate/H2O 2 GM/50 ML PIGGYBACK IV (21:52)
--- NOTE | 2023-04-12 21:55 | PC.NURSE ---
This screen writer assumed care of this Pt at 1900. Pt A&Ox3, reports 7/10 constant right quadrant pain radiating to upper mid epigastric. States I don't know how to describe the pain , reports increase pain with movement. Pt tender to touch to right lower quadrant and epigastric area, + bowel sounds x 4 quadrants, reports last BM was today and normal for self. Pt on 2L via NC, O2 sat 92%, lung sounds wheezy through. Meds given as documented.
[2023-04-12 22:08] LABS: Troponin-I High Sensitivity < 2.7 ng/L (<3.5-35.0)
[2023-04-13] VITALS (11 sets, daily range): BP systolic 105–130; BP diastolic 50–69; PULSE 62–91; RESP 16–20; TEMP 36.1–36.7; O2SAT 92–97; BMI 17.0
--- NOTE | 2023-04-13 00:49 | PM.IMHP ---
History of Present Illness Date of Service: 04/12/23 Chief Complaint: SOB 77-year-old male with past medical history of COPD/ asthma, history of lung cancer, tubular adenoma of colon, tobacco dependence, diabetes, hypothyroidism, presents to the hospital with complaints of 4 days of shortness of breath, cough, and sputum production. patient sources generalized weakness, malaise, fatigue, on and off fever and chills,. Patient denies any chest pain, reports wheezing, denies any fever chills, no abdominal pain, no nausea or vomiting, no diarrhea constipation, no urinary symptoms and no lower extremity edema. Noted to be hypoxic on ambulation satting 85-86%. Patient stated that he used his inhalers at home with no relief therefore decided to come to the hospital. On arrival to the ED patient noted to have a heart rate of 106, respiratory rate of 20, blood pressure stable, satting 94% at rest Labs are significant for WBC count of 8.8, hemoglobin of 10.8 with hematocrit of 36.4 which is around his baseline, normal lactic acid, no history of hypercapnia, UA negative, chest CTA shows no evidence of pulmonary emboli, multiple pleural base masses in the right hemithorax with some increasing and some decreasing PMFSH Medical History Abnormal PET scan of colon Asthma Chronic respiratory failure COPD (chronic obstructive pulmonary disease) Diabetes GERD (gastroesophageal reflux disease) Hypertension Hypothyroidism Osteoarthritis Osteoporosis Oxygen dependent Sepsis Tobacco dependence Ureteral calculi Family History Father Throat cancer Brother Lung cancer Other Hypertension Surgical History History of appendectomy History of cataract surgery (~2011) History of lithotripsy (~2008) History of lung biopsy (~2021) Social History Household Members: Spouse Housing: Apartment Are you a primary multi care technician to a significant other at home: No Do you presently have visiting nurse or other home services: No Alcohol intake: never Patient Tobacco Use Status: Current someday Tobacco user Tobacco use type: Cigarette Cigarette Packs Per Day: 0.5 Cigarettes Per Day: 8 Years Smoked: 60 Smoked in Last 30 Days: Yes e-Cigarette/Vaping Use: Currently Using Patient Interested in Nicotine Replacement: Yes Patient Given Instructions on How to Stop Smoking: No Second Hand Smoke Exposure: No Use of substances other than those prescribed or required for medical reasons: No Advance Directives: No Advance Directives Information Provided: No Advance Directives Date on File: 12/18/20 service: No Current occupational status: unemployed and retired Meds Allergies Allergy/AdvReac Type Severity Reaction Status Date / Time shellfish derived Allergy Severe ANAPHYLAXIS Verified 04/12/23 15:25 [SHELLFISH DERIVED] pollen extracts [POLLEN] Allergy Intermediate RUNNING Verified 04/12/23 15:25 NOSE, WATERY EYES, SNEEZING varenicline [VARENICLINE] AdvReac Unknown PALPITATION Verified 04/12/23 15:25 S Active Medications: Current Medications Pharmacy Consult (Consult Rx Perform Med Rec) 1 each MISCELLANE ONCE PRN PRN Reason: Consult order Home Medications Medication Instructions Recorded Confirmed Last Taken Type metformin 500 mg tablet 500 mg PO DAILY 09/28/20 04/13/23 08/27/22 History levothyroxine 112 mcg tablet 112 mcg PO DAILY@0600 12/01/20 04/13/23 08/28/22 History omeprazole 20 mg capsule,delayed 20 mg PO DAILY@0630 12/01/20 04/13/23 08/28/22 History release ipratropium 0.5 mg-albuterol 3 mg 1 vial inhalation QID PRN asthma 08/06/21 04/13/23 10/21/21 History (2.5 mg base)/3 mL nebulization soln mirtazapine 7.5 mg tablet 7.5 mg PO BEDTIME PRN Sleep 11/16/21 04/13/23 05/27/22 History duloxetine 30 mg capsule,delayed 1 cap PO DAILY 01/29/22 04/13/23 08/28/22 History release nabumetone 500 mg tablet 1 tab PO BID PRN knee pain 01/29/22 04/13/23 08/28/22 History fluticasone fur. 200 mcg-umeclid 1 puff inhalation DAILY 08/28/22 04/13/23 08/28/22 History 62.5 mcg-vilant 25 mcg inhalat.powder (Trelegy Ellipta) multivitamin with folic acid 400 1 tab PO DAILY 08/28/22 04/13/23 08/28/22 History mcg tablet (Daily-Leslie (with folic acid)) Physical Exam Vital Signs and Narrative: Vital Signs: Last Vital Signs Temp 97.8 F 04/13/23 00:28 Pulse 91 04/13/23 00:28 Resp 17 04/13/23 00:28 BP 114/52 L 04/13/23 00:28 Pulse Ox 94 04/13/23 00:28 O2 Del Method Nasal Cannula 04/13/23 00:28 O2 Flow Rate 2 04/13/23 00:28 BMI result Body Mass Index 17.0 Const: General: cooperative and no acute distress Orientation/consciousness: patient oriented x3 Eyes: General: appearance normal, both eyes and all related structures Pupils: Equal, round and reactive pupils present Resp: Other: Minimal expiratory wheezing Effort & Inspection: normal respiratory effort Cardio: Rate: regular rate Rhythm: regular rhythm GI: Palpation (GI): Soft to palpation Auscultation: normal bowel sounds Skin: General skin exam: no rashes or lesions noted Neuro: General: patient oriented x3 Cranial nerves: Yes Equal, round and reactive pupils present Cognition (Neuro): normal cognition Extrem: General: Yes normal to inspection and Yes no pedal edema Results Labs 04/12/23 16:40 04/12/23 16:40 Labs: Laboratory Results - last 24 hr 04/12/23 04/12/23 04/12/23 16:40 16:40 16:40 MCV 77.3 L MCH 22.9 L MCHC 29.7 L RDW 16.2 H Plt Count 497 H MPV 9.0 L Immature Gran % (Auto) 0.5 H Neut % (Auto) 70.1 Lymph % (Auto) 11.9 L [place] % (Auto) 6.0 Eos % (Auto) 10.9 H Baso % (Auto) 0.6 Lymph # (Auto) 1.0 L [place] # (Auto) 0.5 Eos # (Auto) 1.0 H Baso # (Auto) 0.1 Abs Immat Gran (auto) 0.04 H Absolute Neuts (auto) 6.2 Absolute Nucleated RBC 0.000 Nucleated RBC % (auto) 0.0 PT 13.0 INR 1.1 D-Dimer High Sensitivty 515 Anion Gap 11 L Estim Creat Clear Calc 50.9 Estimated GFR > 60 Random Glucose 139 H Lactic Acid Calcium 9.0 D Magnesium 2.0 Total Bilirubin 0.3 Direct Bilirubin 0.1 AST 14 ALT 6 Alkaline Phosphatase 152 H Troponin I High Sens B-Natriuretic Peptide Total Protein 6.5 Albumin 3.5 Lipase 10 Urine Color Urine Appearance Urine pH Ur Specific [place] Urine Protein Urine Glucose (UA) Urine Ketones Urine Blood Urine Nitrite Ur Leukocyte Esterase 04/12/23 04/12/23 04/12/23 16:40 16:40 16:40 MCV MCH MCHC RDW Plt Count MPV Immature Gran % (Auto) Neut % (Auto) Lymph % (Auto) [place] % (Auto) Eos % (Auto) Baso % (Auto) Lymph # (Auto) [place] # (Auto) Eos # (Auto) Baso # (Auto) Abs Immat Gran (auto) Absolute Neuts (auto) Absolute Nucleated RBC Nucleated RBC % (auto) PT INR D-Dimer High Sensitivty Anion Gap Estim Creat Clear Calc Estimated GFR Random Glucose Lactic Acid 1.4 Calcium Magnesium Total Bilirubin Direct Bilirubin AST ALT Alkaline Phosphatase Troponin I High Sens < 2.7 D B-Natriuretic Peptide 20 Total Protein Albumin Lipase Urine Color Urine Appearance Urine pH Ur Specific [place] Urine Protein Urine Glucose (UA) Urine Ketones Urine Blood Urine Nitrite Ur Leukocyte Esterase 04/12/23 04/12/23 18:46 21:37 MCV MCH MCHC RDW Plt Count MPV Immature Gran % (Auto) Neut % (Auto) Lymph % (Auto) [place] % (Auto) Eos % (Auto) Baso % (Auto) Lymph # (Auto) [place] # (Auto) Eos # (Auto) Baso # (Auto) Abs Immat Gran (auto) Absolute Neuts (auto) Absolute Nucleated RBC Nucleated RBC % (auto) PT INR D-Dimer High Sensitivty Anion Gap Estim Creat Clear Calc Estimated GFR Random Glucose Lactic Acid Calcium Magnesium Total Bilirubin Direct Bilirubin AST ALT Alkaline Phosphatase Troponin I High Sens < 2.7 B-Natriuretic Peptide Total Protein Albumin Lipase Urine Color Yellow Urine Appearance Clear Urine pH 6.0 Ur Specific [place] 1.020 Urine Protein Trace Urine Glucose (UA) Negative Urine Ketones Trace Urine Blood Negative Urine Nitrite Negative Ur Leukocyte Esterase Negative Imaging Radiologist's Impressions: Impressions Chest X-Ray 04/12/23 16:17 IMPRESSION: 1. Unremarkable right hip exam. 2. No change in the right hilar mass and probable small right apical pneumothorax unchanged from previous study 03/31/2023. 3. No acute fracture or dislocation right hip. There is right apical pleural thickening and parenchymal scarring. Hip/Pelvis X-Ray 04/12/23 16:17 IMPRESSION: 1. Unremarkable right hip exam. 2. No change in the right hilar mass and probable small right apical pneumothorax unchanged from previous study 03/31/2023. 3. No acute fracture or dislocation right hip. There is right apical pleural thickening and parenchymal scarring. Cervical Spine CT 04/12/23 18:19 IMPRESSION: 1. No acute intracranial process seen. 2. There is no acute fracture, dislocation or subluxation in cervical spine. There is grade 1 retrolisthesis C3 over C2 and C4 over C5. There are degenerative disc changes C3-C4 and C5-C6 disc levels. Head CT 04/12/23 18:19 IMPRESSION: 1. No acute intracranial process seen. 2. There is no acute fracture, dislocation or subluxation in cervical spine. There is grade 1 retrolisthesis C3 over C2 and C4 over C5. There are degenerative disc changes C3-C4 and C5-C6 disc levels. Abdomen/Pelvis CT 04/12/23 18:29 IMPRESSION: 1. No evidence of a traumatic injury in the abdomen or pelvis and cause for the patient's abdominal pain has not been found. Incidental note made of: 1. Small bladder calculus. 2. Colonic diverticulosis without diverticulitis. 3. Mild BPH. 4. Degenerative changes in the spine. Fleischner guidelines were followed. Chest CTA 04/12/23 18:29 IMPRESSION: 1. No evidence of pulmonary emboli. 2. Multiple pleural-based masses in the right hemithorax. One of these has decreased in size but the others have increased in size. VTE: negative. Assessment and Plan (1) Chronic obstructive asthma with exacerbation: Status: Inactive (2) Acute respiratory failure with hypoxia: Status: Resolved Plan 77-year-old male with past medical history of COPD / asthma, history of lung cancer presents to the hospital with complaints of shortness of breath, cough found to have acute exacerbation # acute COPD exacerbation with asthma - no evidence of pneumonia, no PE - Patient heart rate increased on DuoNeb, therefore will prescribe Xopenex, will add steroids IV b.i.d. - monitor respiratory status # acute hypoxic respiratory failure - hypoxic on ambulation - O2 supplement if required - continue theophylline # diabetes - will add low-dose sliding scale insulin - diabetic diet # hypothyroidism - continue levothyroxine DVT prophylaxis: Lovenox Time Spent With Patient Time: Total time managing care of this patient today ____ minutes. Quality Stroke Does the patient have a stroke diagnosis?: No VTE Prior VTE?: No VTE Risk Level:: Medical - low VTE Device Contraindication: Treatment Not Indicated VTE Drug Contraindication: Treatment Not Indicated
[2023-04-13 01:24] LABS: Glucose, Whole Blood 212 mg/dL (60-115)
[2023-04-13] MEDS: Insulin Lispro 100 UNIT/ML 3 ML VIAL SUBCUT ×5 (01:24→21:36)
[2023-04-13] MEDS: Enoxaparin Sodium 40 MG/0.4 ML SYRINGE SUBCUT ×2 (01:24→21:36)
[2023-04-13 02:30] LABS: Troponin-I High Sensitivity 3.3 ng/L (<3.5-35.0)
--- NOTE | 2023-04-13 04:12 | PC.NURSE ---
RN to RN report given to Adriana. Pt will be transported to room 343, Pt and aware of plan.
[2023-04-13 06:48] LABS: MANUAL DIFF FLAG NO
[2023-04-13 06:55] LABS: Basophils Percent Auto 0.3 % (0-2); Eosinophils Percent Auto 0.3 % (0-4); Hematocrit 33.1 % (42.0-52.0); Hemoglobin 9.9 g/dl (14.0-18.0); Imm Gran Abs Auto 0.02 X10*3/uL (0.00-0.03); Imm Gran Pct Auto 0.6 % (0.0-0.4); Lymphocytes Absolute Auto 0.3 X10*3/uL (1.2-4.9); Lymphocytes Percent Auto 8.1 % (20-40); Mean Corpuscular HGB Conc 29.9 g/dl (31.0-36.0); Mean Corpuscular Hemoglobin 22.8 pg (27.0-33.0); Mean Corpuscular Volume 76.1 fL (80.0-98.0); Mean Platelet Volume 9.4 fL (9.4-12.4); Monocytes Percent Auto 0.9 % (2-11); Neutrophils Absolute Auto 2.9 x10*3/uL (2.0-8.3); Neutrophils Percent Auto 89.8 % (45-73); Platelet Count 451 X10*3/uL (160-400); Red Blood Count 4.35 X10*6/uL (4.60-5.80); Red Cell Distribution Width 16.1 % (11.0-16.0); White Blood Count 3.2 X10*3/uL (4.8-10.8)
[2023-04-13 07:27] LABS: Glucose, Whole Blood 207 mg/dL (60-115)
[2023-04-13] MEDS: levalbuterol HCL 1.25 MG/3 ML VIAL.NEB INHALE ×3 (07:36→19:34)
[2023-04-13] MEDS: DULoxetine HCl 30 MG CAPSULE.DR PO (08:25)
[2023-04-13] MEDS: Levothyroxine Sodium 112 MCG TABLET PO (08:25)
[2023-04-13] MEDS: methylPREDNISolone Sod Succ 40 MG/ML VIAL IVPUSH ×2 (08:25→21:55)
[2023-04-13] MEDS: Theophylline Anhydrous ER 400 MG TAB.ER.24H PO (08:25)
[2023-04-13] MEDS: Multivitamin TABLET 1 TAB PO (08:25)
[2023-04-13] MEDS: Omeprazole 20 MG CAPSULE.DR PO (08:25)
[2023-04-13] MEDS: 0.9 % Sodium Chloride Flush 3 ML SYRINGE IVFLUSH ×3 (08:25→21:37)
--- NOTE | 2023-04-13 09:25 | PM.EVENT ---
Event Note Date of Service: 04/13/23 Event Note: Day hospitalist update S: Wheezing improved. Known lung CA for which he has elected no treatment. O: VS- T 97.6, P 62, R 16, BP 125/60, SaO2 97 on RA Gen: in no acute distress HEENT: sclera anicteric, moist mucus membranes Neck: supple Lungs: bilateral end-expiratory wheezing at base Heart: regular rate and rhythm, no murmurs Abd: soft, non-tender, non-distended Ext: no edema Skin: warm/well-perfused Neuro: alert and oriented x3, no focal findings Psych: appropriate affect A/P: hospital day#1 77yo M with COPD/asthma that is chronically steroid-dependent, lung CA not on treatment presenting with dyspnea, admitted for exacerbation of COPD/asthma # acute exacerbation of COPD/asthma overlap - IV methylprednisolone 40 mg q12h, standing/prn nebs, home controller inhalers, theophylline # acute hypoxic resp failure - weaned off O2 # DM2 - daly-dose lispro # hypothyroidism - LT4 # VTE ppx: LMWH # dispo: anticipate eventually home, may need VNA In my clinical judgment, the patient requires continued inpatient hospitalization for the following reasons: COPD treatment, hypoxia Time Spent With Patient Time: Total time managing care of this patient today ____ minutes.
[2023-04-13] MEDS: Pyridoxine HCl (Vitamin B6) 50 MG TABLET 100 MG PO (09:27)
--- NOTE | 2023-04-13 11:16 | MHC.CLN ---
PT IS MODERATELY MALNOURISHED PT'S UBW 50KG FROM PREVIOUS WT HX PT WITH 7% NONSIGNIFICANT WT LOSS X 6 MONTHS WITH S/S MILDLY DEPLETED MUSCLE MASS DIET RX; 1800DM-APPROPRIATE PT RECEPTIVE TO TRIAL OF NUTRITION SUPPLEMENTS TO INCREASE KCALS AND PROMOTE WT GAIN RECOMMEND ENSURE BID TO PROVIDE 700KCALS, 40G PROTEIN MONITOR PO INTAKE CLOSELY SEE ALSO FULL CLINICAL NUTRITION ASSESSMENT
[2023-04-13 11:20] LABS: Glucose, Whole Blood 218 mg/dL (60-115)
[2023-04-13 16:12] LABS: Glucose, Whole Blood 172 mg/dL (60-115)
[2023-04-13 20:44] LABS: Glucose, Whole Blood 249 mg/dL (60-115)
[2023-04-14] VITALS: RESP 18
[2023-04-14 03:50] VITALS: BP 117/56; PULSE 70; RESP 17; TEMP 36.2; O2SAT 93
[2023-04-14] MEDS: Omeprazole 20 MG CAPSULE.DR PO (05:53)
[2023-04-14] MEDS: Levothyroxine Sodium 112 MCG TABLET PO (05:53)
[2023-04-14 06:15] LABS: VBG Base Excess 7.8 mmol/L; VBG HCO3 31 mmol/L (22-26); VBG pCO2 39 mmHg; VBG pH 7.51 (7.32-7.43); VBG pO2 82 mmHg
[2023-04-14 06:19] LABS: Venous Blood Gas Refer to POC result
[2023-04-14 06:38] LABS: Hematocrit 31.5 % (42.0-52.0); Hemoglobin 9.7 g/dl (14.0-18.0); Mean Corpuscular HGB Conc 30.8 g/dl (31.0-36.0); Mean Corpuscular Hemoglobin 22.9 pg (27.0-33.0); Mean Corpuscular Volume 74.3 fL (80.0-98.0); Mean Platelet Volume 9.5 fL (9.4-12.4); Platelet Count 504 X10*3/uL (160-400); Red Blood Count 4.24 X10*6/uL (4.60-5.80); White Blood Count 10.3 X10*3/uL (4.8-10.8)
[2023-04-14 06:52] LABS: Anion Gap 12 (12-20); Blood Urea Nitrogen 14 mg/dL (9-16); Calcium 8.6 mg/dL (8.4-10.2); Carbon Dioxide 30 mmol/L (22-29); Chloride 101 mmol/L (96-108); Creatinine Clr Calc Pharmacy 56.4; Estimated Glomerular Filt Rate > 60; Glucose Random 173 mg/dL (60-115); Potassium 4.6 mmol/L (3.3-5.1); Sodium 138 mmol/L (135-145)
[2023-04-14] MEDS: Theophylline Anhydrous ER 400 MG TAB.ER.24H PO (07:03)
[2023-04-14] MEDS: methylPREDNISolone Sod Succ 40 MG/ML VIAL IVPUSH (07:03)
[2023-04-14] MEDS: DULoxetine HCl 30 MG CAPSULE.DR PO (07:03)
[2023-04-14] MEDS: 0.9 % Sodium Chloride Flush 3 ML SYRINGE IVFLUSH (07:03)
[2023-04-14] MEDS: Multivitamin TABLET 1 TAB PO (07:03)
[2023-04-14] MEDS: Pyridoxine HCl (Vitamin B6) 50 MG TABLET 100 MG PO (07:03)
[2023-04-14 07:29] VITALS: BP 134/63; PULSE 74; RESP 18; TEMP 36.8; O2SAT 95
[2023-04-14 07:36] LABS: Glucose, Whole Blood 246 mg/dL (60-115)
[2023-04-14] MEDS: Insulin Lispro 100 UNIT/ML 3 ML VIAL SUBCUT (07:41)
[2023-04-14 08:19] VITALS: PULSE 81; RESP 18; O2SAT 95
[2023-04-14] MEDS: levalbuterol HCL 1.25 MG/3 ML VIAL.NEB INHALE (08:19)
[2023-04-14 08:40] VITALS: PULSE 108; PULSE 81; O2SAT 93; O2SAT 95
[2023-04-14 08:55] VITALS: PULSE 81
--- NOTE | 2023-04-14 09:10 | MHC.CLN ---
F/U DIET BS=[id number] ENSURE BID PROVIDES ADDITIONAL 700KCALS, 40G PROTEIN INTAKE PER DOC 50-100%. MONITOR PO INTAKE CLOSELY.
--- NOTE | 2023-04-14 09:56 | P.DS_ITS ---
DS: Providers Provider Date of Service: 04/14/23 Date of admission: 04/13/23 00:44 Date of discharge: 04/14/23 Primary care physician: Luz Mccall NP DS: Diagnosis Discharge Diagnosis (1) Chronic obstructive asthma with exacerbation: Status: Inactive (2) Acute respiratory failure with hypoxia: Status: Resolved (3) Asthma-chronic obstructive pulmonary disease overlap syndrome: Status: Acute (4) Lung cancer: Status: Acute DS: Summary Hospital Course Hospital Course: from admission H+P by hospitalist Margot Torres MD 04/13/23: 77-year-old male with past medical history of COPD/ asthma, history of lung cancer, tubular adenoma of colon, tobacco dependence, diabetes, hypothyroidism, presents to the hospital with complaints of 4 days of shortness of breath, cough, and sputum production.? patient sources generalized weakness, malaise, fatigue, on and off fever and chills,. Patient denies any chest pain, reports wheezing, denies any fever chills, no abdominal pain, no nausea or vomiting, no diarrhea constipation, no urinary symptoms and no lower extremity edema.? Noted to be hypoxic on ambulation satting 85-86%.? Patient stated that he used his inhalers at home with no relief therefore decided to come to the hospital.? On arrival to the ED patient noted to have a heart rate of 106, respiratory rate of 20, blood pressure stable, satting 94% at rest Labs are significant for? WBC count of 8.8, hemoglobin of 10.8 with hematocrit of 36.4 which is around his baseline, normal lactic acid, no history of h ypercapnia, UA negative, ?chest CTA shows no evidence of pulmonary emboli, multiple pleural base masses in the right hemithorax with some increasing and some decreasing 77yo M with COPD/asthma that is chronically steroid-dependent, lung CA not on treatment; presenting with dyspnea, admitted for exacerbation of COPD/asthma and hypoxia. Hypoxia resolved quickly with treatment with steroids and nebulizers. He improved symptomatically and was discharged on a prednisone taper (40 mg daily x 1 week, then 30 mg daily x 1 week, the return to prior dose of 20 mg daily with further tapering as per explosives truck driver, who he should see within 2 weeks). Did not require home oxygen per RT evaluation. Time Spent with Patient Time attestation: Total time managing care of this patient today _35___ minutes. Discharge coordination time: Greater than 30 minutes Quality: Safe Use of Opioids Does Pt have an Active Cancer Diagnosis on the Problem List?: No Quality: Stroke Does the patient have a stroke diagnosis?: No Physical Exam Vital Signs: Vital Signs: Last Vital Signs Temp 98.2 F 04/14/23 07:29 Pulse 81 04/14/23 08:55 Resp 18 04/14/23 08:19 BP 134/63 04/14/23 07:29 Pulse Ox 95 04/14/23 07:29 O2 Del Method Room Air 04/14/23 07:29 O2 Flow Rate 1 04/13/23 04:00 BMI result Body Mass Index 17.0 Gen: in no acute distress HEENT: sclera anicteric, moist mucus membranes Neck: supple Lungs: faint end-exp wheeze at bases bilaterally Heart: regular rate and rhythm, no murmurs Abd: soft, non-tender, non-distended Ext: no edema Skin: warm/well-perfused Neuro: alert and oriented x3, no focal findings Psych: appropriate affect DS: Data Data Completed and Pending Completed studies during hospitalization [Text1]: Laboratory Results WBC 10.3 X10*3/uL (4.8-10.8) 04/14/23 06:03 RBC 4.24 X10*6/uL (4.60-5.80) L 04/14/23 06:03 Hgb 9.7 g/dl (14.0-18.0) L 04/14/23 06:03 Hct 31.5 % (42.0-52.0) L 04/14/23 06:03 MCV 74.3 fL (80.0-98.0) L 04/14/23 06:03 MCH 22.9 pg (27.0-33.0) L 04/14/23 06:03 MCHC 30.8 g/dl (31.0-36.0) L 04/14/23 06:03 RDW 16.0 % (11.0-16.0) 04/14/23 06:03 Plt Count 504 X10*3/uL (160-400) H 04/14/23 06:03 MPV 9.5 fL (9.4-12.4) 04/14/23 06:03 Immature Gran % (Auto) 0.6 % (0.0-0.4) H 04/13/23 06:11 Neut % (Auto) 89.8 % (45-73) H 04/13/23 06:11 Lymph % (Auto) 8.1 % (20-40) L 04/13/23 06:11 Bee % (Auto) 0.9 % (2-11) L 04/13/23 06:11 Eos % (Auto) 0.3 % (0-4) 04/13/23 06:11 Baso % (Auto) 0.3 % (0-2) 04/13/23 06:11 Lymph # (Auto) 0.3 X10*3/uL (1.2-4.9) L 04/13/23 06:11 Bee # (Auto) 0.0 X10*3/uL (0.1-1.2) L 04/13/23 06:11 Eos # (Auto) 0.0 X10*3/uL (0.0-0.4) 04/13/23 06:11 Baso # (Auto) 0.0 X10*3/uL (0.0-0.2) 04/13/23 06:11 Abs Immat Gran (auto) 0.02 X10*3/uL (0.00-0.03) 04/13/23 06:11 Absolute Neuts (auto) 2.9 x10*3/uL (2.0-8.3) 04/13/23 06:11 Absolute Nucleated RBC 0.000 X10*3/uL (0.0-0.012) 04/14/23 06:03 Nucleated RBC % (auto) 0.0 /100WBC (0.0-0.2) 04/14/23 06:03 PT 13.0 SEC (10.0-13.1) 04/12/23 16:40 INR 1.1 (0.9-1.1) 04/12/23 16:40 D-Dimer High Sensitivty 515 NG/ML 04/12/23 16:40 VBG pH 7.51 (7.32-7.43) H 04/14/23 06:04 VBG pCO2 39 mmHg 04/14/23 06:04 VBG pO2 82 mmHg 04/14/23 06:04 VBG HCO3 31 mmol/L (22-26) H 04/14/23 06:04 VBG O2 Saturation 96.0 % 04/14/23 06:04 VBG Base Excess 7.8 mmol/L 04/14/23 06:04 Sodium 138 mmol/L (135-145) 04/14/23 06:03 Potassium 4.6 mmol/L (3.3-5.1) 04/14/23 06:03 Chloride 101 mmol/L (96-108) 04/14/23 06:03 Carbon Dioxide 30 mmol/L (22-29) H 04/14/23 06:03 Anion Gap 12 (12-20) 04/14/23 06:03 BUN 14 mg/dL (9-16) 04/14/23 06:03 Creatinine 0.74 mg/dL (0.5-1.4) 04/14/23 06:03 Estim Creat Clear Calc 56.4 04/14/23 06:03 Estimated GFR > 60 04/14/23 06:03 POC Glucose 246 mg/dL (60-115) H 04/14/23 07:32 Random Glucose 173 mg/dL (60-115) H 04/14/23 06:03 Lactic Acid 1.4 mmol/L (0.5-2.0) 04/12/23 16:40 Calcium 8.6 mg/dL (8.4-10.2) 04/14/23 06:03 Magnesium 2.0 mg/dL (1.6-2.6) 04/12/23 16:40 Total Bilirubin 0.3 mg/dL (0.0-1.0) 04/12/23 16:40 Direct Bilirubin 0.1 mg/dL (0.0-0.5) 04/12/23 16:40 AST 14 U/L (5-37) 04/12/23 16:40 ALT 6 U/L (0-40) 04/12/23 16:40 Alkaline Phosphatase 152 U/L (39-117) H 04/12/23 16:40 Troponin I High Sens 3.3 ng/L (<3.5-35.0) 04/13/23 01:49 B-Natriuretic Peptide 20 pg/mL (<100) 04/12/23 16:40 Total Protein 6.5 g/dL (6.5-8.0) 04/12/23 16:40 Albumin 3.5 g/dL (3.5-5.0) 04/12/23 16:40 Lipase 10 U/L (8-78) 04/12/23 16:40 Urine Color Yellow 04/12/23 18:46 Urine Appearance Clear 04/12/23 18:46 Urine pH 6.0 (5.0-9.0) 04/12/23 18:46 Ur Specific [place] 1.020 (1.005-1.025) 04/12/23 18:46 Urine Protein Trace mg/dL (Neg-Trace) 04/12/23 18:46 Urine Glucose (UA) Negative mg/dL (Negative) 04/12/23 18:46 Urine Ketones Trace mg/dL (Negative) 04/12/23 18:46 Urine Blood Negative (Negative) 04/12/23 18:46 Urine Nitrite Negative (Negative) 04/12/23 18:46 Ur Leukocyte Esterase Negative (Negative) 04/12/23 18:46 Impressions Chest X-Ray 04/12/23 16:17 IMPRESSION: 1. Unremarkable right hip exam. 2. No change in the right hilar mass and probable small right apical pneumothorax unchanged from previous study 03/31/2023. 3. No acute fracture or dislocation right hip. There is right apical pleural thickening and parenchymal scarring. Hip/Pelvis X-Ray 04/12/23 16:17 IMPRESSION: 1. Unremarkable right hip exam. 2. No change in the right hilar mass and probable small right apical pneumothorax unchanged from previous study 03/31/2023. 3. No acute fracture or dislocation right hip. There is right apical pleural thickening and parenchymal scarring. Cervical Spine CT 04/12/23 18:19 IMPRESSION: 1. No acute intracranial process seen. 2. There is no acute fracture, dislocation or subluxation in cervical spine. There is grade 1 retrolisthesis C3 over C2 and C4 over C5. There are degenerative disc changes C3-C4 and C5-C6 disc levels. Head CT 04/12/23 18:19 IMPRESSION: 1. No acute intracranial process seen. 2. There is no acute fracture, dislocation or subluxation in cervical spine. There is grade 1 retrolisthesis C3 over C2 and C4 over C5. There are degenerative disc changes C3-C4 and C5-C6 disc levels. Abdomen/Pelvis CT 04/12/23 18:29 IMPRESSION: 1. No evidence of a traumatic injury in the abdomen or pelvis and cause for the patient's abdominal pain has not been found. Incidental note made of: 1. Small bladder calculus. 2. Colonic diverticulosis without diverticulitis. 3. Mild BPH. 4. Degenerative changes in the spine. Fleischner guidelines were followed. Chest CTA 04/12/23 18:29 IMPRESSION: 1. No evidence of pulmonary emboli. 2. Multiple pleural-based masses in the right hemithorax. One of these has decreased in size but the others have increased in size. VTE: negative. Discharge Plan Discharge Anticipated Discharge Date/Time: 04/14/23 09:52 Patient Disposition: Home, Self-Care Discharge Diagnosis: # acute exacerbation of COPD/asthma overlap # acute hypoxic resp failure, resolved # lung CA Referrals: Luz Mccall NP [Primary Care Provider] - 1 Week Zane Ellis MD [Physician] - 2 Weeks Discharge Medications: New prednisone 10 mg tablet See Rx Instructions .ROUTE .COMPLEX Qty: 77 0RF Rx Instructions: 40 mg (4 tabs) daily x 1 week, then 30 mg (3 tabs) daily x 1 week, then return to 20 mg (2 tabs) daily with further taper as per explosives truck driver Continued metformin 500 mg tablet 500 mg PO DAILY levothyroxine 112 mcg tablet 112 mcg PO DAILY@0600 omeprazole 20 mg capsule,delayed release(DR/EC) 20 mg PO DAILY@0630 ipratropium-albuterol 0.5 mg-3 mg(2.5 mg base)/3 mL solution for nebulization 1 vial inhalation QID PRN (Reason: asthma) mirtazapine 7.5 mg Tablet 7.5 mg PO BEDTIME PRN (Reason: Sleep) albuterol sulfate 90 mcg/actuation aerosol powdr breath activated 2 inh inhalation Q4-6H PRN (Reason: shortness of breath or wheezing) Qty: 1 0RF nabumetone 500 mg tablet 1 tab PO BID PRN (Reason: knee pain) duloxetine 30 mg capsule,delayed release(DR/EC) 1 cap PO DAILY multivitamin with folic acid [Daily-Leslie (with folic acid)] 400 mcg tablet 1 tab PO DAILY Trelegy Ellipta 200-62.5-25 mcg blister with device 1 puff inhalation DAILY pyridoxine (vitamin B6) 100 mg tablet 100 mg PO DAILY 90 Days Qty: 90 1RF theophylline 400 mg tablet extended release 24 hr 400 mg PO DAILY Qty: 30 6RF Discharge Orders: Discharge Order (Routine); Ordered 04/14/23 Ordered By: Mariann Lam Diet: Diabetic diet Activity on Discharge: As tolerated Stand Alone Forms: Patient Portal Discharge page Care Plan Goals: pulmonary health Health Concerns: # acute exacerbation of COPD/asthma overlap # acute hypoxic resp failure, resolved # lung CA Plan of Treatment: take prednisone as follows: 40 mg (4 tabs) daily x 1 week, then 30 mg (3 tabs) daily x 1 week, then 20 mg (2 tabs) daily; further tapering as per explosives truck driver Dr Ellis follow up with Dr Ellis within 2 weeks Please follow up with your primary care doctor within 1 week. Return to the hospital if you experience recurrent or worsening symptoms. Assessment: See Discharge Summary.
--- NOTE | 2023-04-14 10:13 | MHC.CM.PN ---
pt dcd home no skilled servcies ordered by
== END 2023-04-14 10:37 | disposition home or self-care (01) ==
LOC: HO.ED 21:43 → HO.EDOVER 04-13 00:52 → HO.S3 04-13 03:34
PROVIDERS: Nurse Practitioner Family; Physician Assistant; Admitting Provider Internal Medicine; Emergency Provider Emergency Medicine; PCP Nurse Practitioner Family; Visit Provider Family Medicine
DX: J44.9 Chronic obstructive pulmonary disease, unspecified (principal); J45.901 Unspecified asthma with (acute) exacerbation; J96.01 Acute respiratory failure with hypoxia; R06.02 Shortness of breath; R10.31 Right lower quadrant pain; E11.9 Type 2 diabetes mellitus without complications; E78.00 Pure hypercholesterolemia, unspecified; C34.90 Malignant neoplasm of unspecified part of unspecified bronchus or lung; D12.6 Benign neoplasm of colon, unspecified; F17.201 Nicotine dependence, unspecified, in remission; Z91.81 History of falling; Z99.81 Dependence on supplemental oxygen; Z79.84 Long term (current) use of oral hypoglycemic drugs; Z79.899 Other long term (current) drug therapy
CPT/HCPCS: 36415; 70450; 71046; 71275; 72125; 73502; 74177; 80048; 80076; 81003; 82803; 82947; 83605; 83690; 83735; 83880; 84484; 85025; 85027; 85379; 85610; 87040; 93005; 94640; 96365; 96366; 96372; 96375; 96376; 97161; 99221; 99285; J1650; J2270; J2920; J2930; J3475; Q9967

== ENCOUNTER → 2023-04-22 09:08 | Outpatient (BNVA) | payer MEDICARE, MEDICAID, SELFPAY | PROVIDERS: PCP Nurse Practitioner Family; Visit Provider Urology | DX: N20.0 Calculus of kidney (principal) | CPT/HCPCS: 99212 ==

== ENCOUNTER 2023-06-17 18:59 | Observation (INO) | payer MEDICARE, MEDICAID, SELFPAY ==
--- NOTE | ~2023-06-17 | XR_ITS ---
EXAMINATION: XR CHEST CLINICAL INFORMATION: Shortness of breath. COMPARISON: Chest radiograph 04/12/2023. TECHNIQUE: Frontal view of the chest was obtained. FINDINGS: Stable prominence of the cardiomediastinal silhouette. Redemonstration of multiple pleural-based masses in the right hemithorax, best visualized on a recent CT from 04/12/2023. Within this background, there is increased interstitial thickening bilaterally more noticeable in the right upper lobe. No pleural effusion or significant pneumothorax. Again noted calcified granuloma in the left lower lung. No displaced osseous fractures. XR/XR chest 1V IMPRESSION: Within a background of complex right hemithoracic pleural-based masses, best seen on prior CT from 04/12/2023, there is suggestion of increased interstitial thickening suspicious for an acute infectious/inflammatory process. A short-term follow-up chest CT is recommended to ensure improvement and rule out progression of the masses.
--- NOTE | 2023-06-17 19:10 | ECG_ITS ---
Test Reason : SOB Blood Pressure : / mmHG Vent. Rate : 091 BPM Atrial Rate : 091 BPM P-R Int : 122 ms QRS Dur : 074 ms QT Int : 316 ms P-R-T Axes : 079 067 076 degrees QTc Int : 388 ms Sinus rhythm with marked sinus arrhythmia Otherwise normal ECG When compared with ECG of 12-APR-2023 15:45, No significant change was found Referred By: Jovana Mcclellan Electronically Signed By:Anoop Gentile
--- NOTE | 2023-06-17 19:10 | ED.GENADULT ---
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 Patient is an active smoker with history of COPD and lung cancer presented with difficulty breathing, previous presentation with COPD exacerbation similar to this presentation, productive cough clear sputum, no fever, no chills, no recent travel, no recent prolonged immobilization, no lower extremities swelling. Related Data Home Medications Medication Instructions Recorded Confirmed metformin 500 mg tablet 500 mg PO DAILY 09/28/20 06/18/23 omeprazole 20 mg capsule,delayed 20 mg PO DAILY@0630 12/01/20 06/18/23 release ipratropium 0.5 mg-albuterol 3 mg 1 vial inhalation QID PRN asthma 08/06/21 06/18/23 (2.5 mg base)/3 mL nebulization soln nabumetone 500 mg tablet 1 tab PO BID PRN knee pain 01/29/22 06/18/23 fluticasone fur. 200 mcg-umeclid 1 puff inhalation DAILY 08/28/22 06/18/23 62.5 mcg-vilant 25 mcg inhalat.powder (Trelegy Ellipta) multivitamin with folic acid 400 1 tab PO DAILY 08/28/22 06/18/23 mcg tablet (Daily-Leslie (with folic acid)) levothyroxine 88 mcg tablet 88 mcg PO DAILY@0600 06/17/23 06/18/23 prednisone 20 mg tablet 20 mg PO DAILY 06/17/23 06/18/23 acetaminophen 325 mg tablet 650 mg PO Q6H PRN Pain 06/18/23 06/18/23 (Tylenol) cholecalciferol (vitamin D3) 25 25 mcg PO DAILY 06/18/23 06/18/23 mcg (1,000 unit) tablet topiramate 50 mg tablet 50 mg PO DAILY 06/18/23 06/18/23 topiramate 50 mg tablet 100 mg PO BEDTIME 06/18/23 06/18/23 Previous Rx's Medication Instructions Recorded albuterol sulfate 90 mcg/actuation 2 inh inhalation Q4-6H PRN 12/01/22 breath activated powder inhaler shortness of breath or wheezing #1 ea theophylline 400 mg 400 mg PO DAILY #30 tabs 04/02/23 tablet,extended release 24 hr pyridoxine (vitamin B6) 50 mg 50 mg PO DAILY 90 days #90 tabs 04/22/23 tablet prednisone 20 mg tablet 40 mg PO DAILY #6 tabs 06/19/23 Allergies Allergy/AdvReac Type Severity Reaction Status Date / Time shellfish derived Allergy Severe ANAPHYLAXIS Verified 06/17/23 19:11 [SHELLFISH DERIVED] pollen extracts [POLLEN] Allergy Intermediate RUNNING Verified 06/17/23 19:11 NOSE, WATERY EYES, SNEEZING varenicline [VARENICLINE] AdvReac Unknown PALPITATION Verified 06/17/23 19:11 S Review of Systems Review of Systems: All other systems are reviewed and are negative Constitutional: Reports as per HPI and Reports no additional constitutional complaints Eyes: Reports as per HPI and Reports no additional eye complaints Reports system reviewed and no additional complaints, except as documented Cardiovascular: Reports as per HPI and Reports no additional cardiovascular complaints Respiratory: Reports as per HPI and Reports no additional respiratory complaints Gastrointestinal: Reports as per HPI and Reports no additional gastrointestinal complaints Genitourinary: Reports no additional female genitourinary complaints Musculoskeletal: Reports no additional musculoskeletal complaints Skin/Breast: Reports system reviewed and no additional complaints, except as docu Psychiatric: Reports no additional psychiatric complaints Endocrine: Reports no additional endocrine complaints Hematologic/Lymphatic: Reports no additional hematologic/lymphatic complaints Allergic/Immunologic: Reports no additional allergic/immunologic complaints Reports system reviewed and no additional complaints, except as documented and Reports Abnormal speech present [facility] Past Medical History Medical History Abnormal PET scan of colon Asthma Chronic respiratory failure COPD (chronic obstructive pulmonary disease) Diabetes GERD (gastroesophageal reflux disease) Hypertension Hypothyroidism Osteoarthritis Osteoporosis Oxygen dependent Sepsis Tobacco dependence Ureteral calculi Surgical History History of appendectomy History of cataract surgery (~2011) History of lithotripsy (~2008) History of lung biopsy (~2021) Family History Family History Father Throat cancer Brother Lung cancer Other Hypertension Social History Social History Household Members: Family Housing: House Are you a primary animal caretaker to a significant other at home: No Do you presently have visiting nurse or other home services: No Alcohol intake: never Patient Tobacco Use Status: Current someday Tobacco user Tobacco use type: Cigarette Cigarette Packs Per Day: 0.5 Cigarettes Per Day: 8 Years Smoked: 60 e-Cigarette/Vaping Use: Currently Using Second Hand Smoke Exposure: No Advance Directives Date on File: 12/18/20 service: No Current occupational status: unemployed and retired Physical Exam ED Vital Signs: Vital Signs - 24 hr 06/17/23 19:11 06/17/23 19:32 06/17/23 20:24 Temperature 98.8 F Pulse Rate 108 H 104 H 86 Respiratory Rate 40 H 18 22 H Blood Pressure 123/61 129/51 L Pulse Oximetry 94 100 Oxygen Delivery Method Room Air Oxygen Flow Rate 6 BMI result Body Mass Index 16.5 Vital signs have been reviewed as appeared to be correct. Blood pressure normal. Heart rate normal. Respiration rate normal. Temperature normal. Oxygen saturation normal. Appearance: Alert. Oriented X3. In acute respiratory distress. Head: Normal external exam. Normocephalic. Atraumatic. No Yang signs noted. No raccoon eyes noted Eyes: PERRLA. EOMI. Conjunctiva and sclera normal. Eyelids normal. ENT: TM's Normal. Pharynx normal. Uvula midline. Moist mucous membranes. No trismus noted. No drooling noted. No muffled voice noted. Neck: Normal inspection. Neck supple. FROM. No adenopathy. Thyroid Normal. No meningeal signs. No neck mass noted. CVS: Normal heart rate and rhythm. Heart sound normal. No murmurs noted. Pulses normal throughout. Respiratory: Mild acute respiratory distress. Painless inspiration. Breath sounds normal. Diffuse bilateral expiratory wheezing with prolonged expiration using intercostal muscles and accessory muscle to breathe Chest nontender. No accessory muscle usage noted or decreased air movement noted. Abdomen: Soft and nontender. Bowel sounds normal in all 4 quadrants. No distention noted. No organomegaly noted. No visible injury noted. Back: No CVA tenderness. Full range of motion noted. Skin: Skin warm and dry. Normal skin color. Normal skin turgor. No rashes/lesions/lacerations noted. Extremities: No lower extremity edema. Extremities exhibit normal range of motion. Extremities nontender. Neuro: Oriented X 3. Cranial nerve exam: II-XII are grossly intact No motor deficit. No sensory deficit. Reflexes normal. Course Course Course Narrative: This is a 77-year-old male, with a past medical history of lung cancer diagnosed last year, COPD, asthma, hypothyroidism, presenting to the emergency department for evaluation of respiratory distress. On arrival, respirations 40 per minute, with inspiratory and expiratory wheezes throughout all lung lim. Patient obvious distress. Patient immediately taken back to the main emergency department, given report to attending physician Dr. Vann who saw patient and evaluated patient at bedside. Reevaluation(s) Reevaluation #1: Smoker, history of COPD came in with acute respiratory distress, patient felt better after was given continuous 1 hour long of bronchodilator and Solu-Medrol with improvement, patient is breathing more comfortably, with less intercostal retraction and using accessory muscle, will admit the patient for further bronchodilator and closer observation. Will cover the patient was prophylactic doxycycline p.o. patient do not meet criteria for severe sepsis or septic shock. Time: 21:52 Medications Administered Discontinued Medications Generic Name Dose Route Start Last Admin Trade Name Freq PRN Reason Stop Dose Admin Acetaminophen 650 mg 06/17/23 21:21 06/18/23 07:31 Acetaminophen 325 Mg Tablet PO 650 mg Q6H PRN Administration Pain, Mild (Pain Scale 1-3) Albuterol Sulfate 7.5 mg/ 10 mg 06/17/23 19:10 06/17/23 19:31 Albuterol Sulfate 2.5 mg INHALE 06/17/23 19:11 10 mg ONCE ONE Administration Albuterol/Ipratropium 3 ml 06/18/23 08:00 06/19/23 10:40 Albuterol/Iprat 2.5/0.5mg 3 Ml Ampul.Neb INHALE 3 ml RQ4H WHILE AWAKE MEHDI Administration Benzonatate 200 mg 06/18/23 20:26 06/18/23 22:32 Benzonatate 100 Mg Capsule PO 200 mg TID PRN Administration Cough Doxycycline Monohydrate 100 mg 06/17/23 21:42 06/17/23 22:06 Doxycycline Monohydrate 100 Mg Capsule PO 06/17/23 21:43 100 mg ONCE ONE Administration Enoxaparin Sodium 40 mg 06/17/23 22:00 06/18/23 22:33 Enoxaparin Sodium 40 Mg/0.4 Ml Syringe SUBCUT 40 mg Q24H MEHDI Administration Fluticasone/Umeclidinium/Vilanterol 1 puff 06/18/23 09:00 06/19/23 07:33 Fluticasone/Umeclidinium/Vilanterol 200/62.5/25 Blst.W.Dev INHALE Not Given DAILY [facility] Azithromycin 500 mg/ Sodium 250 mls @ 125 mls/hr 06/17/23 22:00 06/19/23 00:38 Chloride IV Infused Q24H ME[facility]I Infusion Insulin Human Lispro 0 unit 06/18/23 07:30 06/19/23 11:50 Insulin Lispro 100 Unit/Ml 3 Ml Vial SUBCUT Not Given QIDACHS [facility] Protocol Levothyroxine Sodium 88 mcg 06/18/23 08:45 06/19/23 05:42 Levothyroxine Sodium 88 Mcg Tablet PO 88 mcg DAILY@0600 ME[facility]I Administration Metformin HCl 500 mg 06/18/23 09:00 06/19/23 08:50 Metformin Hcl 500 Mg Tablet PO 500 mg DAILY [facility] Administration Methylprednisolone Sodium Succinate 125 mg 06/17/23 19:10 06/17/23 19:39 Methylprednisolone Sod Succ 125 Mg/2 Ml Vial IVPUSH 06/17/23 19:11 125 mg ONCE ONE Administration Methylprednisolone Sodium Succinate 40 mg 06/18/23 08:00 06/19/23 08:50 Methylprednisolone Sod Succ 40 Mg/Ml Vial IVPUSH 40 mg Q12H MEHDI Administration Multivitamins/Vitamin C 1 tab 06/18/23 09:00 06/19/23 08:50 Multivitamin Tablet PO 1 tab DAILY [facility]I Administration Nicotine 14 mg 06/17/23 21:50 06/19/23 08:50 Nicotine 14 Mg Patch.Td24 TRANSDERMA 14 mg DAILY [facility] Administration Omeprazole 20 mg 06/18/23 08:45 06/19/23 05:42 Omeprazole 20 Mg Capsule.Dr PO 20 mg DAILY@0630 [facility] Administration Pyridoxine HCl 50 mg 06/18/23 09:00 06/19/23 08:50 Pyridoxine Hcl (Vitamin B6) 50 Mg Tablet PO 50 mg DAILY [facility] Administration Sodium Chloride 3 ml 06/18/23 00:00 06/19/23 08:51 0.9 % Sodium Chloride Flush 3 Ml Syringe IVFLUSH 3 ml QSHIFT [facility]I Administration Theophylline 400 mg 06/18/23 09:00 06/19/23 08:50 Theophylline Anhydrous Er 400 Mg Tab.Er.24h PO 400 mg DAILY [facility] Administration Topiramate 50 mg 06/18/23 09:00 06/19/23 08:50 Topiramate 25 Mg Tablet PO 50 mg DAILY [facility] Administration Topiramate 100 mg 06/18/23 21:00 06/18/23 20:19 Topiramate 25 Mg Tablet PO 100 mg BEDTIME ME[facility]I Administration Vitamin D 25 mcg 06/18/23 09:00 06/19/23 08:50 Cholecalciferol (Vitamin D3) 25 Mcg Tablet PO 25 mcg DAILY [facility]I Administration Medical Decision Making Differential Diagnosis Differential Diagnoses: The differential diagnosis associated with the presentation includes (COPD exacerbation, CHF, pneumonia, electrolyte abnormality, septic shock, severe sepsis, severe anemia.) Admission/Observation Consideration of admission/observation: Escalation of care including admission/observation considered Lab Data MDM Lab Attestation statement: I reviewed the patient's lab results. 06/17/23 19:30 06/17/23 19:30 Labs: Lab Results 06/17/23 06/17/23 06/17/23 Range/Units 19:30 19:30 19:30 WBC 9.1 (4.8-10.8) X10*3/uL RBC 4.66 (4.60-5.80) X10*6/uL Hgb 10.6 L (14.0-18.0) g/dl Hct 35.5 L (42.0-52.0) % MCV 76.2 L (80.0-98.0) fL MCH 22.7 L (27.0-33.0) pg MCHC 29.9 L (31.0-36.0) g/dl RDW 16.4 H (11.0-16.0) % Plt Count 448 H (160-400) X10*3/uL MPV 9.4 (9.4-12.4) fL Immature Gran % (Auto) 0.5 H (0.0-0.4) % Neut % (Auto) 77.5 H (45-73) % Lymph % (Auto) 10.3 L (20-40) % [place] % (Auto) 6.9 (2-11) % Eos % (Auto) 4.3 H (0-4) % Baso % (Auto) 0.5 (0-2) % Lymph # (Auto) 0.9 L (1.2-4.9) X10*3/uL [place] # (Auto) 0.6 (0.1-1.2) X10*3/uL Eos # (Auto) 0.4 (0.0-0.4) X10*3/uL Baso # (Auto) 0.1 (0.0-0.2) X10*3/uL Abs Immat Gran (auto) 0.05 H (0.00-0.03) X10*3/uL Absolute Neuts (auto) 7.1 (2.0-8.3) x10*3/uL Absolute Nucleated RBC 0.000 (0.0-0.012) X10*3/uL Nucleated RBC % (auto) 0.0 (0.0-0.2) /100WBC VBG pH (7.32-7.43) VBG pCO2 mmHg VBG pO2 mmHg VBG HCO3 (22-26) mmol/L VBG O2 Saturation % VBG Base Excess mmol/L Sodium 138 (135-145) mmol/L Potassium 4.4 (3.3-5.1) mmol/L Chloride 102 (96-108) mmol/L Carbon Dioxide 30 H (22-29) mmol/L Anion Gap 10 L (12-20) BUN 8 L (9-16) mg/dL Creatinine 0.92 (0.5-1.4) mg/dL Estim Creat Clear Calc 44.0 Estimated GFR > 60 Random Glucose 129 H (60-115) mg/dL Lactic Acid (0.5-2.0) mmol/L Calcium 9.8 D (8.4-10.2) mg/dL Magnesium 2.1 (1.6-2.6) mg/dL Total Bilirubin 0.4 (0.0-1.0) mg/dL Direct Bilirubin 0.2 (0.0-0.5) mg/dL AST 17 (5-37) U/L ALT 7 (0-40) U/L Alkaline Phosphatase 118 H (39-117) U/L Troponin I High Sens < 2.7 (<3.5-35.0) ng/L Total Protein 7.3 (6.5-8.0) g/dL Albumin 3.8 (3.5-5.0) g/dL 06/17/23 06/17/23 Range/Units 19:31 19:36 WBC (4.8-10.8) X10*3/uL RBC (4.60-5.80) X10*6/uL Hgb (14.0-18.0) g/dl Hct (42.0-52.0) % MCV (80.0-98.0) fL MCH (27.0-33.0) pg MCHC (31.0-36.0) g/dl RDW (11.0-16.0) % Plt Count (160-400) X10*3/uL MPV (9.4-12.4) fL Immature Gran % (Auto) (0.0-0.4) % Neut % (Auto) (45-73) % Lymph % (Auto) (20-40) % [place] % (Auto) (2-11) % Eos % (Auto) (0-4) % Baso % (Auto) (0-2) % Lymph # (Auto) (1.2-4.9) X10*3/uL [place] # (Auto) (0.1-1.2) X10*3/uL Eos # (Auto) (0.0-0.4) X10*3/uL Baso # (Auto) (0.0-0.2) X10*3/uL Abs Immat Gran (auto) (0.00-0.03) X10*3/uL Absolute Neuts (auto) (2.0-8.3) x10*3/uL Absolute Nucleated RBC (0.0-0.012) X10*3/uL Nucleated RBC % (auto) (0.0-0.2) /100WBC VBG pH 7.41 (7.32-7.43) VBG pCO2 48 mmHg VBG pO2 45 mmHg VBG HCO3 31 H (22-26) mmol/L VBG O2 Saturation 70.0 % VBG Base Excess 5.6 mmol/L Sodium (135-145) mmol/L Potassium (3.3-5.1) mmol/L Chloride (96-108) mmol/L Carbon Dioxide (22-29) mmol/L Anion Gap (12-20) BUN (9-16) mg/dL Creatinine (0.5-1.4) mg/dL Estim Creat Clear Calc Estimated GFR Random Glucose (60-115) mg/dL Lactic Acid 1.6 (0.5-2.0) mmol/L Calcium (8.4-10.2) mg/dL Magnesium (1.6-2.6) mg/dL Total Bilirubin (0.0-1.0) mg/dL Direct Bilirubin (0.0-0.5) mg/dL AST (5-37) U/L ALT (0-40) U/L Alkaline Phosphatase (39-117) U/L Troponin I High Sens (<3.5-35.0) ng/L Total Protein (6.5-8.0) g/dL Albumin (3.5-5.0) g/dL Independent Interpretation I performed an independent interpretation of an: Plain X-Ray (Within a background of complex right hemithoracic pleural-based masses, best seen on prior CT from 04/12/2023, there is suggestion of increased interstitial thickening suspicious for an acute infectious/inflammatory process. A short-term follow-up chest CT is recommended to ensure improvement and ru) Radiology Impression Discussion of test interpretation with radiology: I have reviewed the radiologist's reading. Discharge Plan Discharge Clinical Impression: Acute exacerbation of chronic obstructive pulmonary disease Patient Disposition: Admitted As Inpatient Interventions: Admission Worksheet (ED) Last Done: 06/18/23 11:18 Discharge Date/Time: 06/18/23 11:19
[2023-06-17 19:11] VITALS: BP 123/61; PULSE 108; RESP 40; TEMP 37.1; O2SAT 94; BMI 16.5
[2023-06-17] MEDS: Albuterol Sulfate 7.5 MG, Albuterol Sulfate (0.083%) 2.5 MG 10 MG INHALE (19:31)
[2023-06-17 19:32] VITALS: PULSE 104; RESP 18; O2SAT 99
[2023-06-17 19:38] LABS: MANUAL DIFF FLAG NO
[2023-06-17] MEDS: methylPREDNISolone Sod Succ 125 MG/2 ML VIAL IVPUSH (19:39)
[2023-06-17 19:44] LABS: VBG Base Excess 5.6 mmol/L; VBG HCO3 31 mmol/L (22-26); VBG pCO2 48 mmHg; VBG pH 7.41 (7.32-7.43); VBG pO2 45 mmHg
[2023-06-17 19:47] LABS: Basophils Absolute Auto 0.1 X10*3/uL (0.0-0.2); Basophils Percent Auto 0.5 % (0-2); Eosinophils Absolute Auto 0.4 X10*3/uL (0.0-0.4); Eosinophils Percent Auto 4.3 % (0-4); Hematocrit 35.5 % (42.0-52.0); Hemoglobin 10.6 g/dl (14.0-18.0); Imm Gran Abs Auto 0.05 X10*3/uL (0.00-0.03); Imm Gran Pct Auto 0.5 % (0.0-0.4); Lymphocytes Absolute Auto 0.9 X10*3/uL (1.2-4.9); Lymphocytes Percent Auto 10.3 % (20-40); Mean Corpuscular HGB Conc 29.9 g/dl (31.0-36.0); Mean Corpuscular Hemoglobin 22.7 pg (27.0-33.0); Mean Corpuscular Volume 76.2 fL (80.0-98.0); Mean Platelet Volume 9.4 fL (9.4-12.4); Monocytes Absolute Auto 0.6 X10*3/uL (0.1-1.2); Monocytes Percent Auto 6.9 % (2-11); Neutrophils Absolute Auto 7.1 x10*3/uL (2.0-8.3); Neutrophils Percent Auto 77.5 % (45-73); Platelet Count 448 X10*3/uL (160-400); Red Blood Count 4.66 X10*6/uL (4.60-5.80); Red Cell Distribution Width 16.4 % (11.0-16.0); Venous Blood Gas Refer to POC result; White Blood Count 9.1 X10*3/uL (4.8-10.8)
[2023-06-17 20:01] LABS: Lactic Acid 1.6 mmol/L (0.5-2.0)
[2023-06-17 20:05] LABS: Alanine Aminotransferase 7 U/L (0-40); Albumin Level 3.8 g/dL (3.5-5.0); Alkaline Phosphatase 118 U/L (39-117); Anion Gap 10 (12-20); Aspartate Amino Transferase 17 U/L (5-37); Bilirubin Direct 0.2 mg/dL (0.0-0.5); Bilirubin Total 0.4 mg/dL (0.0-1.0); Blood Urea Nitrogen 8 mg/dL (9-16); Calcium 9.8 mg/dL (8.4-10.2); Carbon Dioxide 30 mmol/L (22-29); Chloride 102 mmol/L (96-108); Estimated Glomerular Filt Rate > 60; Glucose Random 129 mg/dL (60-115); Magnesium 2.1 mg/dL (1.6-2.6); Potassium 4.4 mmol/L (3.3-5.1); Sodium 138 mmol/L (135-145); Total Protein 7.3 g/dL (6.5-8.0)
[2023-06-17 20:15] LABS: Troponin-I High Sensitivity < 2.7 ng/L (<3.5-35.0)
[2023-06-17 20:24] VITALS: BP 129/51; PULSE 86; RESP 22; O2SAT 100
--- NOTE | 2023-06-17 20:32 | PC.NURSE ---
patient in the bed with eyes open showing no distress at this time patient will continue to be monitored for safety
--- NOTE | 2023-06-17 21:23 | PM.IMHP ---
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 Patient states he has been having wheezing, dyspnea worse with exertion and cough with clear sputum production that has been ongoing for the last 3-4 days. It is progressive and got worse on the day of presentation and hence he decided to come to the ER. He continues to smoke tobacco. Patient has refused therapy for lung cancer. He denies fever, chills, chest discomfort, palpitations, abdominal pain, changes in urinary or bowel habits. In the emergency department, patient with dyspnea and tachypnea despite multiple DuoNeb treatments. Review of Systems Constitutional: Constitutional: Reports fatigue Cardiovascular: Cardiovascular: Reports dyspnea on exertion Respiratory: Respiratory: Reports cough, Reports dyspnea on exertion and Reports wheezing Gastrointestinal: Gastrointestinal: Reports no additional gastrointestinal complaints Genitourinary: Genitourinary: Reports no additional male genitourinary complaints Musculoskeletal: Musculoskeletal: Reports no additional musculoskeletal complaints Endocrine: Endocrine: Reports fatigue Allergic/Immunologic: Allergic/Immunologic: Reports wheezing [facility] Medical History Abnormal PET scan of colon Asthma Chronic respiratory failure COPD (chronic obstructive pulmonary disease) Diabetes GERD (gastroesophageal reflux disease) Hypertension Hypothyroidism Osteoarthritis Osteoporosis Oxygen dependent Sepsis Tobacco dependence Ureteral calculi Family History Father Throat cancer Brother Lung cancer Other Hypertension Surgical History History of appendectomy History of cataract surgery (~2011) History of lithotripsy (~2008) History of lung biopsy (~2021) Social History Household Members: Spouse Housing: Apartment Are you a primary post acute care registered nurse to a significant other at home: No Do you presently have visiting nurse or other home services: No Alcohol intake: never Patient Tobacco Use Status: Current someday Tobacco user Tobacco use type: Cigarette Cigarette Packs Per Day: 0.5 Cigarettes Per Day: 8 Years Smoked: 60 Smoked in Last 30 Days: No e-Cigarette/Vaping Use: Currently Using Second Hand Smoke Exposure: No Use of substances other than those prescribed or required for medical reasons: No Advance Directives: No Advance Directives Information Provided: Yes Advance Directives Date on File: 12/18/20 service: No Current occupational status: unemployed and retired Meds Allergies Allergy/AdvReac Type Severity Reaction Status Date / Time shellfish derived Allergy Severe ANAPHYLAXIS Verified 06/17/23 19:11 [SHELLFISH DERIVED] pollen extracts [POLLEN] Allergy Intermediate RUNNING Verified 06/17/23 19:11 NOSE, WATERY EYES, SNEEZING varenicline [VARENICLINE] AdvReac Unknown PALPITATION Verified 06/17/23 19:11 S Active Medications: Current Medications Albuterol/Ipratropium (Albuterol/Iprat 2.5/0.5mg 3 Ml Ampul.Neb) 3 ml INHALE RQ4H WHILE AWAKE [facility] Albuterol/Ipratropium (Albuterol/Iprat 2.5/0.5mg 3 Ml Ampul.Neb) 3 ml INHALE Q4H PRN PRN Reason: Wheezing Methylprednisolone Sodium Succinate (Methylprednisolone Sod Succ 40 Mg/Ml Vial) 40 mg IVPUSH Q12H [facility] Pharmacy Consult (Consult Rx Perform Med Rec) 1 each MISCELLANE ONCE PRN PRN Reason: Consult order Home Medications Medication Instructions Recorded Confirmed Last Taken Type metformin 500 mg tablet 500 mg PO DAILY 09/28/20 04/22/23 08/27/22 History omeprazole 20 mg capsule,delayed 20 mg PO DAILY@0630 12/01/20 04/22/23 08/28/22 History release ipratropium 0.5 mg-albuterol 3 mg 1 vial inhalation QID PRN asthma 08/06/21 04/22/23 10/21/21 History (2.5 mg base)/3 mL nebulization soln mirtazapine 7.5 mg tablet 7.5 mg PO BEDTIME PRN Sleep 11/16/21 04/22/23 05/27/22 History duloxetine 30 mg capsule,delayed 1 cap PO DAILY 01/29/22 04/22/23 08/28/22 History release nabumetone 500 mg tablet 1 tab PO BID PRN knee pain 01/29/22 04/22/2308/28/22 History fluticasone fur. 200 mcg-umeclid 1 puff inhalation DAILY 08/28/22 04/22/23 08/28/22 History 62.5 mcg-vilant 25 mcg inhalat.powder (Trelegy Ellipta) multivitamin with folic acid 400 1 tab PO DAILY 08/28/22 04/22/23 08/28/22 History mcg tablet (Daily-Leslie (with folic acid)) levothyroxine 88 mcg tablet 88 mcg PO DAILY 06/17/23 Unknown History prednisone 20 mg tablet 20 mg PO DAILY 06/17/23 Unknown History Physical Exam Vital Signs and Narrative: Vital Signs: Last Vital Signs Temp 98.8 F 06/17/23 19:11 Pulse 86 06/17/23 20:24 Resp 22 H 06/17/23 20:24 BP 129/51 L 06/17/23 20:24 Pulse Ox 100 06/17/23 20:24 O2 Del Method Room Air 06/17/23 19:11 O2 Flow Rate 6 06/17/23 20:24 BMI result Body Mass Index 16.5 Elderly male lying in bed in mild distress Neck supple, no JVD Regular rate and rhythm, S1-S2 heard Tachypnea with bilateral wheezing present Abdomen soft nontender, no guarding, no rigidity Patient is awake, alert and oriented to self, place, time and person ; no focal motor deficit Psych: Normal mood No pedal edema Results Labs 06/17/23 19:30 06/17/23 19:30 Labs: Laboratory Results - last 24 hr 06/17/23 06/17/23 06/17/23 19:30 19:30 19:30 MCV 76.2 L MCH 22.7 L MCHC 29.9 L RDW 16.4 H Plt Count 448 H MPV 9.4 Immature Gran % (Auto) 0.5 H Neut % (Auto) 77.5 H Lymph % (Auto) 10.3 L [place] % (Auto) 6.9 Eos % (Auto) 4.3 H Baso % (Auto) 0.5 Lymph # (Auto) 0.9 L [place] # (Auto) 0.6 Eos # (Auto) 0.4 Baso # (Auto) 0.1 Abs Immat Gran (auto) 0.05 H Absolute Neuts (auto) 7.1 Absolute Nucleated RBC 0.000 Nucleated RBC % (auto) 0.0 VBG pH VBG pCO2 VBG pO2 VBG HCO3 VBG O2 Saturation VBG Base Excess Anion Gap 10 L Estim Creat Clear Calc 44.0 Estimated GFR > 60 Random Glucose 129 H Lactic Acid Calcium 9.8 D Magnesium 2.1 Total Bilirubin 0.4 Direct Bilirubin 0.2 AST 17 ALT 7 Alkaline Phosphatase 118 H Troponin I High Sens < 2.7 Total Protein 7.3 Albumin 3.8 06/17/23 06/17/23 19:31 19:36 MCV MCH MCHC RDW Plt Count MPV Immature Gran % (Auto) Neut % (Auto) Lymph % (Auto) [place] % (Auto) Eos % (Auto) Baso % (Auto) Lymph # (Auto) [place] # (Auto) Eos # (Auto) Baso # (Auto) Abs Immat Gran (auto) Absolute Neuts (auto) Absolute Nucleated RBC Nucleated RBC % (auto) VBG pH 7.41 VBG pCO2 48 VBG pO2 45 VBG HCO3 31 H VBG O2 Saturation 70.0 VBG Base Excess 5.6 Anion Gap Estim Creat Clear Calc Estimated GFR Random Glucose Lactic Acid 1.6 Calcium Magnesium Total Bilirubin Direct Bilirubin AST ALT Alkaline Phosphatase Troponin I High Sens Total Protein Albumin Imaging Radiologist's Impressions: Impressions Chest X-Ray 06/17/23 19:35 IMPRESSION: Within a background of complex right hemithoracic pleural-based masses, best seen on prior CT from 04/12/2023, there is suggestion of increased interstitial thickening suspicious for an acute infectious/inflammatory process. A short-term follow-up chest CT is recommended to ensure improvement and rule out progression of the masses. 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 #. Acute respiratory distress due to acute exacerbation of asthma/COPD. Will admit patient and initiate systemic steroids. Scheduled and p.r.n. DuoNebs. Continue home inhaler. Initiating azithromycin for pleiotropic effect #. Wam-oenpouu-vojvkqdse diabetes mellitus. Initiating Accu-Cheks with sliding scale insulin in the setting of steroid use #. Hypothyroidism. On Synthroid #. Mood disorder. Continue home mood stabilizers #. Microcytic anemia. Obtaining iron studies #. ?Progression of pleural based mass on imaging. Recommend outpatient chest CT follow-up #. Tobacoo use disorder: Ordering nicotine patch. Recommended cessation #. H/o lung cancer: Pt refused therapy in the past. Outpatient follow up Med rec pending DVT prophylaxis: Lovenox Full code Regular diet Time Spent With Patient Time: Total time managing care of this patient today ____ minutes. Quality Stroke Does the patient have a stroke diagnosis?: No VTE Prior VTE?: No VTE Risk Level:: Medical - moderate - high VTE Device Contraindication: Treatment Not Indicated VTE Drug Contraindication: N/A - Med Ordered
[2023-06-17 22:01] LABS: Iron 12 mcg/dL (45-160); Percent Iron Saturation 5 % (15-50); Total Iron Binding Capacity 250 mcg/dL (228-428); Unsaturated Iron Binding 238 ug/dL
[2023-06-17] MEDS: Doxycycline Monohydrate 100 MG CAPSULE PO (22:06)
[2023-06-17] MEDS: Nicotine 14 MG PATCH.TD24 TRANSDERMA (22:06)
[2023-06-17] MEDS: Enoxaparin Sodium 40 MG/0.4 ML SYRINGE SUBCUT (22:08)
[2023-06-17] MEDS: Azithromycin 500 MG in 0.9 % Sodium Chloride 250 ML 125 MG IV (22:11)
--- NOTE | 2023-06-17 22:11 | PC.NURSE ---
patient received all medications with no issues at this time patient vitals are stable at this time patient will continue to be monitored for safety
[2023-06-18] VITALS (8 sets, daily range): BP systolic 106–129; BP diastolic 56–64; PULSE 62–79; RESP 17–20; TEMP 36.2–36.8; O2SAT 94–98
[2023-06-18 01:14] LABS: Glucose, Whole Blood 265 mg/dL (60-115)
[2023-06-18] MEDS: 0.9 % Sodium Chloride Flush 3 ML SYRINGE IVFLUSH ×2 (01:47→07:31)
--- NOTE | 2023-06-18 04:22 | MHC.EDTECH ---
PATIENT VITALS ARE STABLE AND ED ROUNDS ARE DONE WILL CONTINUE TO MONITOR.
[2023-06-18 05:11] LABS: MANUAL DIFF FLAG NO
[2023-06-18 05:15] LABS: Basophils Percent Auto 0.3 % (0-2); Hematocrit 32.4 % (42.0-52.0); Hemoglobin 9.7 g/dl (14.0-18.0); Imm Gran Abs Auto 0.01 X10*3/uL (0.00-0.03); Imm Gran Pct Auto 0.3 % (0.0-0.4); Lymphocytes Absolute Auto 0.3 X10*3/uL (1.2-4.9); Lymphocytes Percent Auto 9.4 % (20-40); Mean Corpuscular HGB Conc 29.9 g/dl (31.0-36.0); Mean Corpuscular Hemoglobin 22.9 pg (27.0-33.0); Mean Corpuscular Volume 76.6 fL (80.0-98.0); Mean Platelet Volume 9.4 fL (9.4-12.4); Monocytes Percent Auto 1.3 % (2-11); Neutrophils Absolute Auto 2.6 x10*3/uL (2.0-8.3); Neutrophils Percent Auto 88.7 % (45-73); Platelet Count 351 X10*3/uL (160-400); Red Blood Count 4.23 X10*6/uL (4.60-5.80); Red Cell Distribution Width 16.1 % (11.0-16.0)
[2023-06-18 05:29] LABS: Anion Gap 11 (12-20); Blood Urea Nitrogen 10 mg/dL (9-16); Calcium 9.2 mg/dL (8.4-10.2); Carbon Dioxide 27 mmol/L (22-29); Chloride 104 mmol/L (96-108); Creatinine Clr Calc Pharmacy 50.6; Estimated Glomerular Filt Rate > 60; Glucose Random 114 mg/dL (60-115); Potassium 4.2 mmol/L (3.3-5.1); Sodium 138 mmol/L (135-145)
[2023-06-18 07:19] LABS: Glucose, Whole Blood 67 mg/dL (60-115)
--- NOTE | 2023-06-18 07:19 | PC.NURSE ---
assumed care of pt at this time. pt sleeping upon entering. axox4, VSS, respirations even and unlabored, NSR on monitor 77 bpm, skin wpd, o2 sats 98% RA. poc 67; breakfast given. at bedside. both deny questions/concerns at this time, call grimes within reach.
[2023-06-18] MEDS: Acetaminophen 325 MG TABLET 650 MG PO (07:31)
[2023-06-18] MEDS: methylPREDNISolone Sod Succ 40 MG/ML VIAL IVPUSH ×2 (07:31→20:19)
[2023-06-18] MEDS: Albuterol/Iprat 2.5/0.5MG 3 ML AMPUL.NEB INHALE ×3 (07:53→19:20)
--- NOTE | 2023-06-18 07:56 | PHA.MEDREC ---
Pharmacy Consult ? Medication Reconciliation Pharmacy has completed the medication reconciliation. Spoke to patient to confirm meds. Utilized theology professor services. Per patient, patient no longer takes mirtazapine 7.5mg at bedtime.
[2023-06-18 09:10] LABS: Glucose, Whole Blood 207 mg/dL (60-115)
[2023-06-18] MEDS: Fluticasone/Umeclidinium/Vilanterol 200/62.5/25 BLST.W.DEV 1 PUFF INHALE (09:27)
[2023-06-18] MEDS: Levothyroxine Sodium 88 MCG TABLET PO (10:10)
[2023-06-18] MEDS: Multivitamin TABLET 1 TAB PO (10:10)
[2023-06-18] MEDS: metFORMIN HCl 500 MG TABLET PO (10:10)
[2023-06-18] MEDS: Omeprazole 20 MG CAPSULE.DR PO (10:10)
[2023-06-18] MEDS: Cholecalciferol (Vitamin D3) 25 MCG TABLET PO (10:10)
[2023-06-18] MEDS: Topiramate 25 MG TABLET 50 MG PO (10:11)
[2023-06-18] MEDS: Theophylline Anhydrous ER 400 MG TAB.ER.24H PO (10:14)
[2023-06-18] MEDS: Pyridoxine HCl (Vitamin B6) 50 MG TABLET PO (10:14)
--- NOTE | 2023-06-18 10:31 | P.PNIM_ITS ---
Subjective Subjective Date of Service: 06/18/23 Interval History: f/u on asthma exacerbation, overall better today Physical Exam Vital Signs: Vital Signs: Last Vital Signs Temp 97.6 F 06/18/23 06:08 Pulse 76 06/18/23 09:27 Resp 20 06/18/23 06:08 BP 106/56 L 06/18/23 06:08 Pulse Ox 97 06/18/23 06:08 O2 Del Method Room Air 06/18/23 06:08 O2 Flow Rate 6 06/17/23 20:24 BMI result Body Mass Index 16.5 Const: Other: General: AO X 3, no acute distress Resp: CTA bilateral CVS: S1,S2,RRR GI: +BS, NT, no distention Skin: No rash Neuro: motor grossly intact Psych: appropriate affect Objective Data Active Medications Acetaminophen (Acetaminophen 325 Mg Tablet) 650 mg PO Q6H PRN PRN Reason: Pain, Mild (Pain Scale 1-3) Last Admin: 06/18/23 07:31 Dose: 650 mg Documented By: RAINE Albuterol/Ipratropium (Albuterol/Iprat 2.5/0.5mg 3 Ml Ampul.Neb) 3 ml INHALE RQ4H WHILE AWAKE [facility] Last Admin: 06/18/23 07:53 Dose: 3 ml Documented By: SAKSHI Albuterol/Ipratropium (Albuterol/Iprat 2.5/0.5mg 3 Ml Ampul.Neb) 3 ml INHALE Q4H PRN PRN Reason: Wheezing Dextrose (Dextrose 50 % 25 Gm/50 Ml Syringe) 25 gm IVPUSH Q15M PRN; Protocol PRN Reason: per Hypoglycemia Standing Ord. Enoxaparin Sodium (Enoxaparin Sodium 40 Mg/0.4 Ml Syringe) 40 mg SUBCUT Q24H [facility] Last Admin: 06/17/23 22:08 Dose: 40 mg Documented By: ISAURO Fluticasone/Umeclidinium/Vilanterol (Fluticasone/Umeclidinium/Vilanterol 200/62.5/25 Blst.W.Dev) 1 puff INHALE DAILY [facility] Last Admin: 06/18/23 09:27 Dose: 1 puff Documented By: KARIME Glucose (Glucose Gel 15 Gm Gel..Gram.) 15 gm PO Q15M PRN; Protocol PRN Reason: per Hypoglycemia Standing Ord. Azithromycin 500 mg/ Sodium (Chloride) 250 mls @ 125 mls/hr IV Q24H [facility] Last Infusion: 06/18/23 01:47 Dose: 125 mls/hr Documented By: ISAUOR Insulin Human Lispro (Insulin Lispro 100 Unit/Ml 3 Ml Vial) 0 unit SUBCUT QIDACHS [facility]; Protocol Last Admin: 06/18/23 07:32 Dose: Not Given Documented By: RAINE Non-Admin Reason: No Insulin Coverage Levothyroxine Sodium (Levothyroxine Sodium 88 Mcg Tablet) 88 mcg PO DAILY@0600 [facility] Last Admin: 06/18/23 10:10 Dose: 88 mcg Documented By: MAGGIE Melatonin (Melatonin 3 Mg Tablet) 6 mg PO BEDTIME PRN PRN Reason: Insomnia Metformin HCl (Metformin Hcl 500 Mg Tablet) 500 mg PO DAILY [facility] Last Admin: 06/18/23 10:10 Dose: 500 mg Documented By: MAGGIE Methylprednisolone Sodium Succinate (Methylprednisolone Sod Succ 40 Mg/Ml Vial) 40 mg IVPUSH Q12H [facility] Last Admin: 06/18/23 07:31 Dose: 40 mg Documented By: RAINE Multivitamins/Vitamin C (Multivitamin Tablet) 1 tab PO DAILY [facility] Last Admin: 06/18/23 10:10 Dose: 1 tab Documented By: MAGGIE Nicotine (Nicotine 14 Mg Patch.Td24) 14 mg TRANSDERMA DAILY [facility] Last Admin: 06/18/23 10:16 Dose: Not Given Documented By: MAGGIE Non-Admin Reason: pt got one applied at 2206 Omeprazole (Omeprazole 20 Mg Capsule.Dr) 20 mg PO DAILY@0630 [facility] Last Admin: 06/18/23 10:10 Dose: 20 mg Documented By: MAGGIE Ondansetron HCl (Ondansetron Hcl 4 Mg/2 Ml Vial) 4 mg IVPUSH Q8H PRN PRN Reason: Nausea and Vomiting Pharmacy Consult (Consult Rx Perform Med Rec) 1 each MISCELLANE ONCE PRN PRN Reason: Consult order Pyridoxine HCl (Pyridoxine Hcl (Vitamin B6) 50 Mg Tablet) 50 mg PO DAILY [facility] Last Admin: 06/18/23 10:14 Dose: 50 mg Documented By: MAGGIE Sodium Chloride (0.9 % Sodium Chloride Flush 3 Ml Syringe) 3 ml IVFLUSH QSHIFT [facility] Last Admin: 06/18/23 07:31 Dose: 3 ml Documented By: RAINE Theophylline (Theophylline Anhydrous Er 400 Mg Tab.Er.24h) 400 mg PO DAILY [facility] Last Admin: 06/18/23 10:14 Dose: 400 mg Documented By: MAGGIE Topiramate (Topiramate 25 Mg Tablet) 50 mg PO DAILY [facility] Last Admin: 06/18/23 10:11 Dose: 50 mg Documented By: MAGGIE Topiramate (Topiramate 25 Mg Tablet) 100 mg PO BEDTIME [facility] Vitamin D (Cholecalciferol (Vitamin D3) 25 Mcg Tablet) 25 mcg PO DAILY [facility] Last Admin: 06/18/23 10:10 Dose: 25 mcg Documented By: MAGGIE Labs 06/18/23 04:49 06/18/23 04:49 Labs: Laboratory Results - last 24 hr 06/17/23 06/17/23 06/17/23 19:30 19:30 19:30 MCV 76.2 L MCH 22.7 L MCHC 29.9 L RDW 16.4 H Plt Count 448 H MPV 9.4 Immature Gran % (Auto) 0.5 H Neut % (Auto) 77.5 H Lymph % (Auto) 10.3 L [place] % (Auto) 6.9 Eos % (Auto) 4.3 H Baso % (Auto) 0.5 Lymph # (Auto) 0.9 L [place] # (Auto) 0.6 Eos # (Auto) 0.4 Baso # (Auto) 0.1 Abs Immat Gran (auto) 0.05 H Absolute Neuts (auto) 7.1 Absolute Nucleated RBC 0.000 Nucleated RBC % (auto) 0.0 VBG pH VBG pCO2 VBG pO2 VBG HCO3 VBG O2 Saturation VBG Base Excess Anion Gap 10 L Estim Creat Clear Calc 44.0 Estimated GFR > 60 POC Glucose Random Glucose 129 H Lactic Acid Calcium 9.8 D Magnesium 2.1 Iron TIBC % Saturation Unsat Iron Binding Total Bilirubin 0.4 Direct Bilirubin 0.2 AST 17 ALT 7 Alkaline Phosphatase 118 H Troponin I High Sens < 2.7 Total Protein 7.3 Albumin 3.8 06/17/23 06/17/23 06/17/23 19:31 19:36 21:39 MCV MCH MCHC RDW Plt Count MPV Immature Gran % (Auto) Neut % (Auto) Lymph % (Auto) [place] % (Auto) Eos % (Auto) Baso % (Auto) Lymph # (Auto) [place] # (Auto) Eos # (Auto) Baso # (Auto) Abs Immat Gran (auto) Absolute Neuts (auto) Absolute Nucleated RBC Nucleated RBC % (auto) VBG pH 7.41 VBG pCO2 48 VBG pO2 45 VBG HCO3 31 H VBG O2 Saturation 70.0 VBG Base Excess 5.6 Anion Gap Estim Creat Clear Calc Estimated GFR POC Glucose Random Glucose Lactic Acid 1.6 Calcium Magnesium Iron 12 L TIBC 250 % Saturation 5 L Unsat Iron Binding 238 Total Bilirubin Direct Bilirubin AST ALT Alkaline Phosphatase Troponin I High Sens Total Protein Albumin 06/18/23 06/18/23 06/18/23 01:09 04:49 04:49 MCV 76.6 L MCH 22.9 L MCHC 29.9 L RDW 16.1 H Plt Count 351 MPV 9.4 Immature Gran % (Auto) 0.3 Neut % (Auto) 88.7 H Lymph % (Auto) 9.4 L [place] % (Auto) 1.3 L Eos % (Auto) 0.0 Baso % (Auto) 0.3 Lymph # (Auto) 0.3 L [place] # (Auto) 0.0 L Eos # (Auto) 0.0 Baso # (Auto) 0.0 Abs Immat Gran (auto) 0.01 Absolute Neuts (auto) 2.6 Absolute Nucleated RBC 0.000 Nucleated RBC % (auto) 0.0 VBG pH VBG pCO2 VBG pO2 VBG HCO3 VBG O2 Saturation VBG Base Excess Anion Gap 11 L Estim Creat Clear Calc 50.6 Estimated GFR > 60 POC Glucose 265 H Random Glucose 114 Lactic Acid Calcium 9.2 D Magnesium Iron TIBC % Saturation Unsat Iron Binding Total Bilirubin Direct Bilirubin AST ALT Alkaline Phosphatase Troponin I High Sens Total Protein Albumin 06/18/23 06/18/23 07:12 09:07 MCV MCH MCHC RDW Plt Count MPV Immature Gran % (Auto) Neut % (Auto) Lymph % (Auto) [place] % (Auto) Eos % (Auto) Baso % (Auto) Lymph # (Auto) [place] # (Auto) Eos # (Auto) Baso # (Auto) Abs Immat Gran (auto) Absolute Neuts (auto) Absolute Nucleated RBC Nucleated RBC % (auto) VBG pH VBG pCO2 VBG pO2 VBG HCO3 VBG O2 Saturation VBG Base Excess Anion Gap Estim Creat Clear Calc Estimated GFR POC Glucose 67 207 H Random Glucose Lactic Acid Calcium Magnesium Iron TIBC % Saturation Unsat Iron Binding Total Bilirubin Direct Bilirubin AST ALT Alkaline Phosphatase Troponin I High Sens Total Protein Albumin Assessment and Plan (1) Acute exacerbation of chronic obstructive pulmonary disease: Status: Acute Plan This is a 77-year-old male with pertinent history of 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 #. Acute respiratory distress due to acute exacerbation of asthma/COPD. improving on Scheduled and p.r.n. DuoNebs. Continue home inhaler. Initiating azithromycin for pleiotropic effect #. Aiz-duvircu-ahcmybzbb diabetes mellitus. Initiating Accu-Cheks with sliding scale insulin in the setting of steroid use #. Hypothyroidism. On Synthroid #. Mood disorder. Continue home mood stabilizers #. Microcytic anemia. Obtaining iron studies #. ?Progression of pleural based mass on imaging. Recommend outpatient chest CT follow-up #. Tobacoo use disorder: Ordering nicotine patch. Recommended cessation #. H/o lung cancer: Pt refused therapy in the past. Outpatient follow up DVT prophylaxis: Lovenox Full code need for inpt: asthma exacerbation, needing iv steroid Discharge in the morning. Regular diet Time Spent With Patient Time: Total time managing care of this patient today ____ minutes. Quality Stroke Does the patient have a stroke diagnosis?: No VTE Prior VTE?: No VTE Risk Level:: Medical - moderate - high VTE Device Contraindication: Treatment Not Indicated VTE Drug Contraindication: N/A - Med Ordered
--- NOTE | 2023-06-18 10:43 | PC.NURSE ---
report given to nurse mejía
[2023-06-18] MEDS: Insulin Lispro 100 UNIT/ML 3 ML VIAL SUBCUT ×3 (12:12→20:19)
[2023-06-18 13:47] LABS: Glucose, Whole Blood 165 mg/dL (60-115)
[2023-06-18 16:10] LABS: Glucose, Whole Blood 176 mg/dL (60-115)
[2023-06-18 19:56] LABS: Glucose, Whole Blood 215 mg/dL (60-115)
[2023-06-18] MEDS: Topiramate 25 MG TABLET 100 MG PO (20:19)
[2023-06-18] MEDS: Benzonatate 100 MG CAPSULE 200 MG PO (22:32)
[2023-06-18] MEDS: Azithromycin 500 MG in 0.9 % Sodium Chloride 250 ML 125 MG IV (22:32)
[2023-06-18] MEDS: Enoxaparin Sodium 40 MG/0.4 ML SYRINGE SUBCUT (22:33)
[2023-06-19] MEDS: 0.9 % Sodium Chloride Flush 3 ML SYRINGE IVFLUSH ×2 (00:39→08:51)
[2023-06-19 03:36] VITALS: BP 102/48; PULSE 75; RESP 16; TEMP 36.3; O2SAT 96
[2023-06-19] MEDS: Levothyroxine Sodium 88 MCG TABLET PO (05:42)
[2023-06-19] MEDS: Omeprazole 20 MG CAPSULE.DR PO (05:42)
[2023-06-19 07:25] LABS: Glucose, Whole Blood 153 mg/dL (60-115)
[2023-06-19] MEDS: Albuterol/Iprat 2.5/0.5MG 3 ML AMPUL.NEB INHALE ×2 (07:30→10:40)
[2023-06-19 07:31] VITALS: PULSE 76; RESP 18; O2SAT 95
[2023-06-19 07:42] VITALS: BP 128/59; PULSE 82; RESP 16; TEMP 36.6; O2SAT 99
[2023-06-19] MEDS: methylPREDNISolone Sod Succ 40 MG/ML VIAL IVPUSH (08:50)
[2023-06-19] MEDS: Insulin Lispro 100 UNIT/ML 3 ML VIAL SUBCUT (08:50)
[2023-06-19] MEDS: Theophylline Anhydrous ER 400 MG TAB.ER.24H PO (08:50)
[2023-06-19] MEDS: Cholecalciferol (Vitamin D3) 25 MCG TABLET PO (08:50)
[2023-06-19] MEDS: metFORMIN HCl 500 MG TABLET PO (08:50)
[2023-06-19] MEDS: Pyridoxine HCl (Vitamin B6) 50 MG TABLET PO (08:50)
[2023-06-19] MEDS: Multivitamin TABLET 1 TAB PO (08:50)
[2023-06-19] MEDS: Nicotine 14 MG PATCH.TD24 TRANSDERMA (08:50)
[2023-06-19] MEDS: Topiramate 25 MG TABLET 50 MG PO (08:50)
[2023-06-19 10:40] VITALS: PULSE 81; RESP 18; O2SAT 96
[2023-06-19 11:39] LABS: Glucose, Whole Blood 124 mg/dL (60-115)
--- NOTE | 2023-06-19 14:09 | MHC.CM.PN ---
PT DISCHARGED HOME TODAY WITH NO SERVICES PT ARRANGED TRANSPORT
--- NOTE | 2023-07-26 09:52 | PM.DS ---
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 Patient states he has been having wheezing, dyspnea worse with exertion and cough with clear sputum production that has been ongoing for the last 3-4 days.? It is progressive and got worse on the day of presentation and hence he decided to come to the ER.? He continues to smoke tobacco.? Patient has refused therapy for lung cancer.? He denies fever, chills, chest discomfort, palpitations, abdominal pain, changes in urinary or bowel habits. In the emergency department, patient with dyspnea and tachypnea despite multiple DuoNeb treatments. Hospital course: Patient was admitted for acute exacerbation of copd and overalap of severe peristent asthma witha acute exacerbation and treated with IV steroid, bronchodilators by Neb and improved over the course of hospitalization and was discharged after 2 days to continue inhalers and steroid at home. final diaagnosis: acute respiratory distress copd exacerbation severe persistent asthma with acute exacerbation Time Spent with Patient Time attestation: Total time managing care of this patient today ____ minutes. Discharge coordination time: Greater than 30 minutes Quality: Safe Use of Opioids Does Pt have an Active Cancer Diagnosis on the Problem List?: No Quality: Stroke Does the patient have a stroke diagnosis?: No Physical Exam Vital Signs: Vital Signs: Last Vital Signs Temp 97.8 F 06/19/23 07:42 Pulse 81 06/19/23 10:40 Resp 18 06/19/23 10:40 BP 128/59 L 06/19/23 07:42 Pulse Ox 99 06/19/23 07:42 O2 Del Method Room Air 06/19/23 07:42 O2 Flow Rate 6 06/17/23 20:24 BMI result Body Mass Index 16.5 DS: Data Data Completed and Pending Completed studies during hospitalization [Text1]: Procedures 21) Discharge Plan Discharge Anticipated Discharge Date/Time: 06/19/23 09:55 Patient Disposition: Home, Self-Care Discharge Diagnosis: Acute asthma exacerbation Referrals: Luz Mccall, JOHNA [Primary Care Provider] - 1 Week Discharge Medications: Continued metformin 500 mg tablet 500 mg PO DAILY Rx Instructions: take with food omeprazole 20 mg capsule,delayed release(DR/EC) 20 mg PO DAILY@0630 albuterol sulfate 90 mcg/actuation aerosol powdr breath activated 2 inh inhalation Q4-6H PRN (Reason: shortness of breath or wheezing) Qty: 1 0RF nabumetone 500 mg tablet 1 tab PO BID PRN (Reason: knee pain) multivitamin with folic acid [Daily-Leslie (with folic acid)] 400 mcg tablet 1 tab PO DAILY Trelegy Ellipta 200-62.5-25 mcg blister with device 1 puff inhalation DAILY levothyroxine 88 mcg tablet 88 mcg PO DAILY@0600 topiramate 50 mg tablet 50 mg PO DAILY cholecalciferol (vitamin D3) 25 mcg (1,000 unit) tablet 25 mcg PO DAILY acetaminophen [Tylenol] 325 mg Tablet 650 mg PO Q6H PRN (Reason: Pain) pyridoxine (vitamin B6) 50 mg tablet 50 mg PO DAILY 90 Days Qty: 90 3RF theophylline 400 mg tablet extended release 24 hr 400 mg PO DAILY Qty: 30 6RF No Action oxycodone 5 mg tablet 5 mg PO BID PRN (Reason: Pain) mirtazapine 7.5 mg tablet 7.5 mg PO BEDTIME fentanyl 25 mcg/hr patch 72 hour 1 patch transdermal Q72H Qty: 2 0RF Rx Instructions: Partial Fill upon patient request. hydromorphone [Dilaudid] 2 mg tablet 2 mg PO Q8H PRN (Reason: pain) Qty: 7 0RF Rx Instructions: Partial Fill upon patient request. ipratropium-albuterol 0.5 mg-3 mg(2.5 mg base)/3 mL solution for nebulization 3 ml inhalation QID PRN (Reason: wheezing) topiramate 50 mg tablet 100 mg PO BEDTIME nicotine 14 mg/24 hr Patch 24 Hour 14 mg transdermal DAILY Qty: 28 0RF prednisone 10 mg tablet See Rx Instructions .ROUTE .COMPLEX Qty: 20 0RF Rx Instructions: 4 tabs daily for 2 days, then 3 tabs daily for 2 days, then 2 tabs daily for 2 days, then 1 tab daily for 2 days cefdinir 300 mg capsule 300 mg PO BID Qty: 14 0RF doxycycline monohydrate 100 mg tablet 100 mg PO BID Qty: 14 0RF ferrous sulfate 324 mg (65 mg iron) tablet,delayed release (DR/EC) 324 mg PO DAILY Qty: 30 0RF Discharge Orders: Discharge Order (Routine); Ordered 06/19/23 Ordered By: Paulo Espinoza Diet: Advance to usual diet Activity on Discharge: As tolerated Stand Alone Forms: Patient Portal Discharge page Care Plan Goals: full recovery from asthma Health Concerns: asthma Plan of Treatment: take prednisone and use inhalers as before Assessment: see above Discharge Date/Time: 06/19/23 13:11
== END 2023-06-19 13:11 | disposition home or self-care (01) ==
LOC: HO.ED 21:55 → HO.EDOVER 21:58 → HO.S3 06-18 10:24
PROVIDERS: Physician Assistant Medical; Admitting Provider Student in an Organized Health Care Education/Training Program; Emergency Provider Emergency Medicine; PCP Nurse Practitioner Family; Visit Provider Internal Medicine
DX: J44.1 Chronic obstructive pulmonary disease with (acute) exacerbation (principal); J45.51 Severe persistent asthma with (acute) exacerbation; R06.00 Dyspnea, unspecified; C34.90 Malignant neoplasm of unspecified part of unspecified bronchus or lung; F17.200 Nicotine dependence, unspecified, uncomplicated; E03.9 Hypothyroidism, unspecified; Z99.81 Dependence on supplemental oxygen; Z79.899 Other long term (current) drug therapy; E11.8 Type 2 diabetes mellitus with unspecified complications; Z79.4 Long term (current) use of insulin
CPT/HCPCS: 36415; 71045; 80048; 80076; 82803; 82947; 83540; 83605; 83735; 84484; 85025; 87040; 93005; 94640; 96365; 96366; 96372; 96375; 96376; 99221; 99285; J0456; J1650; J2920; J2930

== ENCOUNTER → 2023-06-17 19:10 | Outpatient (BNV) | payer MEDICARE, MEDICAID, SELFPAY | PROVIDERS: Admitting Provider Student in an Organized Health Care Education/Training Program; Emergency Provider Emergency Medicine; PCP Nurse Practitioner Family; Visit Provider Internal Medicine Cardiovascular Disease | DX: R06.02 Shortness of breath (principal) | CPT/HCPCS: 93010 ==

== ENCOUNTER → 2023-06-17 21:21 | Outpatient (BNV) | payer MEDICARE, MEDICAID, SELFPAY | PROVIDERS: Admitting Provider Student in an Organized Health Care Education/Training Program; Emergency Provider Emergency Medicine; PCP Nurse Practitioner Family; Visit Provider Student in an Organized Health Care Education/Training Program | DX: J44.1 Chronic obstructive pulmonary disease with (acute) exacerbation (principal) | CPT/HCPCS: 99222; 99232; 99239 ==

== ENCOUNTER 2023-07-02 02:56 | Observation (INO) | payer MEDICARE, MEDICAID, SELFPAY ==
[2023-07-02] VITALS (11 sets, daily range): BP systolic 118–135; BP diastolic 54–87; PULSE 82–119; RESP 16–118; TEMP 36.4–37; O2SAT 94–100; BMI 17.6
--- NOTE | ~2023-07-02 | XR_ITS ---
EXAMINATION: XR CHEST CLINICAL INFORMATION: Shortness of breath COMPARISON: Chest x-ray dated 06/17/2023. CTA chest dated 04/12/2023. TECHNIQUE: Frontal view of the chest was obtained. FINDINGS: Multiple right-sided pleural masses redemonstrated without appreciable change from a radiographic standpoint. Calcified pleural plaques redemonstrated on the right. Emphysema. No acute pneumonic process. No pleural effusion or pneumothorax. Aorta is tortuous and atherosclerotic. No acute osseous abnormalities. XR/XR chest 1V IMPRESSION: * No acute findings. * Multiple right-sided pleural masses redemonstrated without appreciable change from a radiographic standpoint. * Emphysema.
--- NOTE | ~2023-07-02 | CT_ITS ---
EXAMINATION: CT CHEST WITHOUT CONTRAST CLINICAL INFORMATION: COPD. Pneumonia. History of non-small cell lung cancer COMPARISON: Previous chest CTA March 2023 and chest x-ray most recent 07/02/2023 TECHNIQUE: Multidetector volumetric CT imaging of the chest was done. Axial MIP volume rendering provided. Sagittal and coronal reformatted images were obtained. This CT examination was performed using dose optimization techniques as appropriate, variously including the following: *Automated exposure control *Adjustment of mA and/or kV according to patient size (this includes techniques or standardized protocols for targeted exams where dose is matched to indication/reason for exam; i.e. extremities or head) *Use of iterative reconstruction technique DLP: 105 mGy-cm FINDINGS: LUNGS: Interval increase in size in the peripheral heterogeneous masslike density in the right lower lobe. This measures 5 x 6.5 cm compared to 4 x 5.4 cm March 2023 exam. This has low attenuation cystic or necrotic areas some new small foci of air and small calcifications. Interval increase in size in smaller peripheral masslike density in the right lower lobe. This measures 2 x 3.3 cm compared to 2.7 x 3 cm March 2023 exam. This is lobulated in shape. This has adjacent pleural thickening. Interval increase in size in the pleural-based density in the right upper lobe adjacent to the minor fissure. This measures 1 x 2.3 cm compared to 1 x 1.4 cm March 2023 exam. There is evidence of emphysema. There is a noncalcified 4 x 10 mm right upper lobe nodule axial image 18 series 10 that is stable. There right lung and central bronchiectasis and bronchial wall thickening, greatest in the right upper lobe and bilateral lower lobes there is a 1 cm calcified left lower lobe nodule that is stable. MEDIASTINUM: Normal heart size. No pericardial effusion. Atherosclerotic disease. Tortuous thoracic aorta. Shotty mediastinal lymphadenopathy. Small left hilar calcifications questionable for small left hilar calcified lymph nodes. CORONARY ARTERY CALCIFICATION: Mild PLEURA: There is right sided pleural thickening and pleural calcification that is stable. This appears to extend into the extrapleural fat, particularly adjacent to the posterior superior segment of the right lower lobe for example axial image 29 series 10. There is no left pleural effusion or pleural thickening. AXILLA: No lymphadenopathy. UPPER ABDOMEN: Unremarkable. OSSEOUS STRUCTURES: Degenerative changes of the spine. CT/CT chest wo IV con IMPRESSION: Interval increase in size in the masslike densities in the right lower lobe and right upper lobe. There is a extrapleural extension of the lesion in the superior segment of the right lower lobe into the extrapleural fat. Stable right pleural thickening and calcification. Emphysema. Evidence of bronchiectasis and bronchial wall thickening/airways disease, greatest in the right upper and bilateral lower lobes. Fleischner guidelines were followed.
--- NOTE | 2023-07-02 03:00 | ECG_ITS ---
Test Reason : SOB Blood Pressure : / mmHG Vent. Rate : 122 BPM Atrial Rate : 122 BPM P-R Int : 128 ms QRS Dur : 078 ms QT Int : 290 ms P-R-T Axes : 087 070 082 degrees QTc Int : 413 ms Sinus tachycardia with Premature atrial complexes Otherwise normal ECG When compared with ECG of 17-JUN-2023 19:35, Premature atrial complexes are now Present Referred By: Generic ED Physician Electronically Signed By:ANTONIO WILLAMS
[2023-07-02 03:15] LABS: MANUAL DIFF FLAG NO
[2023-07-02 03:19] LABS: Basophils Percent Auto 0.3 % (0-2); Eosinophils Absolute Auto 0.3 X10*3/uL (0.0-0.4); Hematocrit 35.2 % (42.0-52.0); Hemoglobin 10.5 g/dl (14.0-18.0); Imm Gran Abs Auto 0.13 X10*3/uL (0.00-0.03); Imm Gran Pct Auto 0.8 % (0.0-0.4); Lymphocytes Absolute Auto 1.8 X10*3/uL (1.2-4.9); Lymphocytes Percent Auto 11.6 % (20-40); Mean Corpuscular HGB Conc 29.8 g/dl (31.0-36.0); Mean Corpuscular Hemoglobin 22.7 pg (27.0-33.0); Mean Corpuscular Volume 76.2 fL (80.0-98.0); Mean Platelet Volume 9.6 fL (9.4-12.4); Monocytes Percent Auto 6.6 % (2-11); Neutrophils Absolute Auto 12.3 x10*3/uL (2.0-8.3); Neutrophils Percent Auto 78.7 % (45-73); Platelet Count 543 X10*3/uL (160-400); Red Blood Count 4.62 X10*6/uL (4.60-5.80); Red Cell Distribution Width 17.7 % (11.0-16.0); White Blood Count 15.6 X10*3/uL (4.8-10.8)
[2023-07-02 03:26] LABS: Lactic Acid 1.6 mmol/L (0.5-2.0)
[2023-07-02 03:34] LABS: Anion Gap 19 (12-20); Blood Urea Nitrogen 10 mg/dL (9-16); Calcium 9.5 mg/dL (8.4-10.2); Carbon Dioxide 24 mmol/L (22-29); Chloride 105 mmol/L (96-108); Creatinine Clr Calc Pharmacy 52.1; Estimated Glomerular Filt Rate > 60; Glucose Random 114 mg/dL (60-115); Potassium 4.9 mmol/L (3.3-5.1); Sodium 143 mmol/L (135-145)
[2023-07-02 03:36] LABS: D Dimer High Sensitivity 343 NG/ML
[2023-07-02 03:36] LABS: Troponin-I High Sensitivity 3.4 ng/L (<3.5-35.0)
[2023-07-02] MEDS: Albuterol/Iprat 2.5/0.5MG 3 ML AMPUL.NEB INHALE ×5 (03:41→18:45)
[2023-07-02] MEDS: Albuterol Sulfate (0.083%) 2.5 MG/3 ML VIAL.NEB 5 MG INHALE (03:41)
[2023-07-02] MEDS: cefTRIAXone sodium 1 GM in 0.9 % Sodium Chloride 50 ML IV (04:23)
[2023-07-02] MEDS: methylPREDNISolone Sod Succ 125 MG/2 ML VIAL IVPUSH (04:26)
[2023-07-02] MEDS: Magnesium Sulfate/H2O 2 GM/50 ML PIGGYBACK IV (04:41)
--- NOTE | 2023-07-02 05:00 | MHC.EDTECH ---
Late Entry, this tech assumed care of patient at 0300AM, hourly rounds completed and vitals were taken. Call grimes withn reach
--- NOTE | 2023-07-02 05:01 | ED.SOB ---
HPI - SOB/Dyspnea General Chief Complaint: Dyspnea Stated Complaint: Sob Time Seen by Provider: 07/02/23 03:26 Source: patient and EMS Mode of arrival: EMS Limitations: no limitations History of Present Illness HPI Narrative: 77-year-old male came in for evaluation of severe difficulty breathing. Patient is an active smoker with history of COPD and lung cancer presented with difficulty breathing, patient had frequent ED visits for similar presentation, productive cough with clear sputum, declined any fever chills, no recent travel, no recent prolonged immobilization, no lower extremities swelling, no sick contact. Related Data Home Medications Medication Instructions Recorded Confirmed metformin 500 mg tablet 500 mg PO DAILY 09/28/20 06/29/23 omeprazole 20 mg capsule,delayed 20 mg PO DAILY@0630 12/01/20 06/29/23 release nabumetone 500 mg tablet 1 tab PO BID PRN knee pain 01/29/22 06/29/23 fluticasone fur. 200 mcg-umeclid 1 puff inhalation DAILY 08/28/22 06/29/23 62.5 mcg-vilant 25 mcg inhalat.powder (Trelegy Ellipta) multivitamin with folic acid 400 1 tab PO DAILY 08/28/22 06/29/23 mcg tablet (Daily-Leslie (with folic acid)) levothyroxine 88 mcg tablet 88 mcg PO DAILY@0600 06/17/23 06/29/23 prednisone 20 mg tablet 20 mg PO DAILY 06/17/23 06/29/23 acetaminophen 325 mg tablet 650 mg PO Q6H PRN Pain 06/18/23 06/29/23 (Tylenol) cholecalciferol (vitamin D3) 25 25 mcg PO DAILY 06/18/23 06/29/23 mcg (1,000 unit) tablet topiramate 50 mg tablet 50 mg PO DAILY 06/18/23 06/29/23 albuterol sulfate 90 mcg/actuation 90 mcg inhalation DAILY 06/29/23 06/29/23 aerosol inhaler (Ventolin HFA) mirtazapine 7.5 mg tablet 7.5 mg PO BEDTIME 06/29/23 06/29/23 oxycodone 5 mg tablet 5 mg PO BID 06/29/23 06/29/23 Previous Rx's Medication Instructions Recorded albuterol sulfate 90 mcg/actuation 2 inh inhalation Q4-6H PRN 12/01/22 breath activated powder inhaler shortness of breath or wheezing #1 ea theophylline 400 mg 400 mg PO DAILY #30 tabs 04/02/23 tablet,extended release 24 hr pyridoxine (vitamin B6) 50 mg 50 mg PO DAILY 90 days #90 tabs 04/22/23 tablet Allergies Allergy/AdvReac Type Severity Reaction Status Date / Time shellfish derived Allergy Severe ANAPHYLAXIS Verified 06/29/23 10:27 [SHELLFISH DERIVED] pollen extracts [POLLEN] Allergy Intermediate RUNNING Verified 06/29/23 10:27 NOSE, WATERY EYES, SNEEZING varenicline [VARENICLINE] AdvReac Unknown PALPITATION Verified 06/29/23 10:27 S Review of Systems Review of Systems: All other systems are reviewed and are negative Constitutional: Reports as per HPI and Reports no additional constitutional complaints Eyes: Reports as per HPI and Reports no additional eye complaints Reports system reviewed and no additional complaints, except as documented Cardiovascular: Reports as per HPI and Reports no additional cardiovascular complaints Respiratory: Reports as per HPI and Reports no additional respiratory complaints Gastrointestinal: Reports as per HPI and Reports no additional gastrointestinal complaints Genitourinary: Reports no additional female genitourinary complaints Musculoskeletal: Reports no additional musculoskeletal complaints Skin/Breast: Reports system reviewed and no additional complaints, except as docu Psychiatric: Reports no additional psychiatric complaints Endocrine: Reports no additional endocrine complaints Hematologic/Lymphatic: Reports no additional hematologic/lymphatic complaints Allergic/Immunologic: Reports no additional allergic/immunologic complaints Reports system reviewed and no additional complaints, except as documented and Reports Abnormal speech present ON LICENSE OF [facility] Past Medical History Medical History Abnormal PET scan of colon Asthma Chronic respiratory failure COPD (chronic obstructive pulmonary disease) Diabetes GERD (gastroesophageal reflux disease) Hypertension Hypothyroidism Osteoarthritis Osteoporosis Oxygen dependent Sepsis Tobacco dependence Ureteral calculi Surgical History History of appendectomy History of cataract surgery (~2011) History of lithotripsy (~2008) History of lung biopsy (~2021) Family History Family History Father Throat cancer Brother Lung cancer Other Hypertension Social History Social History Household Members: Family Housing: House Are you a primary child care coordinator to a significant other at home: No Do you presently have visiting nurse or other home services: No Alcohol intake: former Patient Tobacco Use Status: Current someday Tobacco user Tobacco use type: Cigarette Cigarette Packs Per Day: 0.5 Cigarettes Per Day: 8 Years Smoked: 60 Smoked in Last 30 Days: Yes e-Cigarette/Vaping Use: Currently Using Second Hand Smoke Exposure: No Use of substances other than those prescribed or required for medical reasons: No Advance Directives: No Advance Directives Information Provided: Yes Advance Directives Date on File: 12/18/20 service: No Current occupational status: unemployed and retired Physical Exam Vital Signs: Vital Signs: Last Vital Signs Temp 98.4 F 07/02/23 03:44 Pulse 101 H 07/02/23 03:44 Resp 22 H 07/02/23 03:44 BP 125/60 07/02/23 03:44 Pulse Ox 95 07/02/23 03:44 O2 Del Method Room Air 07/02/23 03:44 BMI result Body Mass Index 17.6 Vital signs have been reviewed as appeared to be correct. Blood pressure normal. Heart rate elevated. Respiration rate elevated. Temperature normal. Oxygen saturation normal. Appearance: Alert. Oriented X3. acute respiratory distress. Head: Normal external exam. Normocephalic. Atraumatic. No Yang signs noted. No raccoon eyes noted Eyes: PERRLA. EOMI. Conjunctiva and sclera normal. Eyelids normal. ENT: TM's Normal. Pharynx normal. Uvula midline. Moist mucous membranes. No trismus noted. No drooling noted. No muffled voice noted. Neck: Normal inspection. Neck supple. FROM. No adenopathy. Thyroid Normal. No meningeal signs. No neck mass noted. CVS: Normal heart rate and rhythm. Heart sound normal. No murmurs noted. Pulses normal throughout. Respiratory: Acute respiratory distress. Painless inspiration. Breath sounds normal. Diffuse bilateral wheezing with prolonged expiration, Chest nontender. Accessory muscle and intercostal retraction. Abdomen: Soft and nontender. Bowel sounds normal in all 4 quadrants. No distention noted. No organomegaly noted. No visible injury noted. Back: No CVA tenderness. Full range of motion noted. Skin: Skin warm and dry. Normal skin color. Normal skin turgor. No rashes/lesions/lacerations noted. Extremities: No lower extremity edema. Extremities exhibit normal range of motion. Extremities nontender. Neuro: Oriented X 3. Cranial nerve exam: II-XII are grossly intact No motor deficit. No sensory deficit. Reflexes normal. Course Course Course Narrative: COPD exacerbation with SIRS criteria. Will start the patient on Rocephin, bronchodilator, magnesium, Solu-Medrol. Will admit the patient. chronic slight elevation of D-dimer, I am not concerned of pulmonary embolism today patient had multiple CT angiograms done in the past and I feel exposing the patient to ionized radiation is not necessary at this point. Medications Administered Generic Name Dose Route Start Last Admin Trade Name Freq PRN Reason Stop Dose Admin Magnesium Sulfate 2 gm in 50 mls @ 25 mls/hr 07/02/23 03:27 07/02/23 04:41 Magnesium Sulfate/H2o IV 07/02/23 05:26 25 mls/hr ONCE ONE Administration Discontinued Medications Generic Name Dose Route Start Last Admin Trade Name Freq PRN Reason Stop Dose Admin Albuterol Sulfate 5 mg 07/02/23 03:27 07/02/23 03:41 Albuterol Sulfate (0.083%) 2.5 Mg/3 Ml Vial.Neb INHALE 07/02/23 03:28 5 mg ONCE ONE Administration Albuterol/Ipratropium 3 ml 07/02/23 03:27 07/02/23 03:41 Albuterol/Iprat 2.5/0.5mg 3 Ml Ampul.Neb INHALE 07/02/23 03:28 3 ml ONCE ONE Administration Ceftriaxone Sodium 1 gm/ 50 mls @ 100 mls/hr 07/02/23 03:27 07/02/23 04:23 Sodium Chloride IV 07/02/23 03:56 100 mls/hr ONCE ONE Administration Methylprednisolone Sodium Succinate 125 mg 07/02/23 03:26 07/02/23 04:26 Methylprednisolone Sod Succ 125 Mg/2 Ml Vial IVPUSH 07/02/23 03:27 125 mg ONCE ONE Administration Medical Decision Making Differential Diagnosis Differential Diagnoses: The differential diagnosis associated with the presentation includes (COPD exacerbation, pneumonia, sepsis, pneumothorax, pleural effusion, severe electrolyte abnormality, severe anemia.) Admission/Observation Consideration of admission/observation: Escalation of care including admission/observation considered Consult Healthcare Provider Management of the patient was discussed with: Hospitalist (Dr. Morel) Lab Data MDM Lab Attestation statement: I reviewed the patient's lab results. 07/02/23 03:05 07/02/23 03:05 Labs: Lab Results 07/02/23 07/02/23 07/02/23 Range/Units 03:05 03:05 03:05 WBC 15.6 H (4.8-10.8) X10*3/uL RBC 4.62 (4.60-5.80) X10*6/uL Hgb 10.5 L (14.0-18.0) g/dl Hct 35.2 L (42.0-52.0) % MCV 76.2 L (80.0-98.0) fL MCH 22.7 L (27.0-33.0) pg MCHC 29.8 L (31.0-36.0) g/dl RDW 17.7 H (11.0-16.0) % Plt Count 543 H (160-400) X10*3/uL MPV 9.6 (9.4-12.4) fL Immature Gran % (Auto) 0.8 H (0.0-0.4) % Neut % (Auto) 78.7 H (45-73) % Lymph % (Auto) 11.6 L (20-40) % Rains % (Auto) 6.6 (2-11) % Eos % (Auto) 2.0 (0-4) % Baso % (Auto) 0.3 (0-2) % Lymph # (Auto) 1.8 (1.2-4.9) X10*3/uL Rains # (Auto) 1.0 (0.1-1.2) X10*3/uL Eos # (Auto) 0.3 (0.0-0.4) X10*3/uL Baso # (Auto) 0.0 (0.0-0.2) X10*3/uL Abs Immat Gran (auto) 0.13 H (0.00-0.03) X10*3/uL Absolute Neuts (auto) 12.3 H (2.0-8.3) x10*3/uL Absolute Nucleated RBC 0.000 (0.0-0.012) X10*3/uL Nucleated RBC % (auto) 0.0 (0.0-0.2) /100WBC D-Dimer High Sensitivty NG/ML Sodium 143 (135-145) mmol/L Potassium 4.9 D (3.3-5.1) mmol/L Chloride 105 (96-108) mmol/L Carbon Dioxide 24 (22-29) mmol/L Anion Gap 19 (12-20) BUN 10 (9-16) mg/dL Creatinine 0.83 (0.5-1.4) mg/dL Estim Creat Clear Calc 52.1 Estimated GFR > 60 Random Glucose 114 (60-115) mg/dL Lactic Acid (0.5-2.0) mmol/L Calcium 9.5 D (8.4-10.2) mg/dL Troponin I High Sens 3.4 (<3.5-35.0) ng/L 07/02/23 07/02/23 Range/Units 03:06 03:11 WBC (4.8-10.8) X10*3/uL RBC (4.60-5.80) X10*6/uL Hgb (14.0-18.0) g/dl Hct (42.0-52.0) % MCV (80.0-98.0) fL MCH (27.0-33.0) pg MCHC (31.0-36.0) g/dl RDW (11.0-16.0) % Plt Count (160-400) X10*3/uL MPV (9.4-12.4) fL Immature Gran % (Auto) (0.0-0.4) % Neut % (Auto) (45-73) % Lymph % (Auto) (20-40) % Rains % (Auto) (2-11) % Eos % (Auto) (0-4) % Baso % (Auto) (0-2) % Lymph # (Auto) (1.2-4.9) X10*3/uL Rains # (Auto) (0.1-1.2) X10*3/uL Eos # (Auto) (0.0-0.4) X10*3/uL Baso # (Auto) (0.0-0.2) X10*3/uL Abs Immat Gran (auto) (0.00-0.03) X10*3/uL Absolute Neuts (auto) (2.0-8.3) x10*3/uL Absolute Nucleated RBC (0.0-0.012) X10*3/uL Nucleated RBC % (auto) (0.0-0.2) /100WBC D-Dimer High Sensitivty 343 NG/ML Sodium (135-145) mmol/L Potassium (3.3-5.1) mmol/L Chloride (96-108) mmol/L Carbon Dioxide (22-29) mmol/L Anion Gap (12-20) BUN (9-16) mg/dL Creatinine (0.5-1.4) mg/dL Estim Creat Clear Calc Estimated GFR Random Glucose (60-115) mg/dL Lactic Acid 1.6 (0.5-2.0) mmol/L Calcium (8.4-10.2) mg/dL Troponin I High Sens (<3.5-35.0) ng/L Independent Interpretation I performed an independent interpretation of an: Plain X-Ray (Chest: No acute intrathoracic pathology.) Radiology Impression Discussion of test interpretation with radiology: I have reviewed the radiologist's reading. (* No acute findings. * Multiple right-sided pleural masses redemonstrated without appreciable change from a radiographic standpoint. * Emphysema. ) Discharge Plan Discharge Clinical Impression: COPD with acute exacerbation Patient Disposition: Admitted As Inpatient Prescriptions: No Action metformin 500 mg tablet 500 mg PO DAILY Rx Instructions: take with food omeprazole 20 mg capsule,delayed release(DR/EC) 20 mg PO DAILY@0630 albuterol sulfate 90 mcg/actuation aerosol powdr breath activated 2 inh inhalation Q4-6H PRN (Reason: shortness of breath or wheezing) Qty: 1 0RF nabumetone 500 mg tablet 1 tab PO BID PRN (Reason: knee pain) albuterol sulfate [Ventolin HFA] 90 mcg/actuation HFA aerosol inhaler 90 mcg inhalation DAILY oxycodone 5 mg tablet 5 mg PO BID mirtazapine 7.5 mg tablet 7.5 mg PO BEDTIME multivitamin with folic acid [Daily-Leslie (with folic acid)] 400 mcg tablet 1 tab PO DAILY Trelegy Ellipta 200-62.5-25 mcg blister with device 1 puff inhalation DAILY prednisone 20 mg tablet 20 mg PO DAILY levothyroxine 88 mcg tablet 88 mcg PO DAILY@0600 topiramate 50 mg tablet 50 mg PO DAILY cholecalciferol (vitamin D3) 25 mcg (1,000 unit) tablet 25 mcg PO DAILY acetaminophen [Tylenol] 325 mg Tablet 650 mg PO Q6H PRN (Reason: Pain) pyridoxine (vitamin B6) 50 mg tablet 50 mg PO DAILY 90 Days Qty: 90 3RF theophylline 400 mg tablet extended release 24 hr 400 mg PO DAILY Qty: 30 6RF
--- NOTE | 2023-07-02 05:02 | MHC.EDTECH ---
Patient urinated 200cc in urinal.
[2023-07-02] MEDS: 0.9 % Sodium Chloride 1,000 ML 999 ML IV (05:32)
--- NOTE | 2023-07-02 05:35 | PM.IMHP ---
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 Patient states he has been having wheezing, dyspnea worse with exertion and cough with clear sputum production that has been ongoing for the last 2 days.? It is progressive and got worse on the day of presentation and hence he decided to come to the ER.? He continues to smoke tobacco.? Patient has refused therapy for lung cancer.? He denies fever, chills, chest discomfort, palpitations, abdominal pain, changes in urinary or bowel habits. In the emergency department, patient with dyspnea and tachypnea despite multiple DuoNeb treatments. Review of Systems Constitutional: Constitutional: Reports no additional constitutional complaints Cardiovascular: Cardiovascular: Reports dyspnea on exertion Respiratory: Respiratory: Reports cough, Reports dyspnea on exertion and Reports wheezing Gastrointestinal: Gastrointestinal: Reports no additional gastrointestinal complaints Genitourinary: Genitourinary: Reports no additional male genitourinary complaints Allergic/Immunologic: Allergic/Immunologic: Reports wheezing [facility] Medical History Abnormal PET scan of colon Asthma Chronic respiratory failure COPD (chronic obstructive pulmonary disease) Diabetes GERD (gastroesophageal reflux disease) Hypertension Hypothyroidism Osteoarthritis Osteoporosis Oxygen dependent Sepsis Tobacco dependence Ureteral calculi Family History Father Throat cancer Brother Lung cancer Other Hypertension Surgical History History of appendectomy History of cataract surgery (~2011) History of lithotripsy (~2008) History of lung biopsy (~2021) Social History Household Members: Family Housing: House Are you a primary manager critical care to a significant other at home: No Do you presently have visiting nurse or other home services: No Alcohol intake: former Patient Tobacco Use Status: Current someday Tobacco user Tobacco use type: Cigarette Cigarette Packs Per Day: 0.5 Cigarettes Per Day: 8 Years Smoked: 60 Smoked in Last 30 Days: Yes e-Cigarette/Vaping Use: Currently Using Second Hand Smoke Exposure: No Use of substances other than those prescribed or required for medical reasons: No Advance Directives: No Advance Directives Information Provided: Yes Advance Directives Date on File: 12/18/20 service: No Current occupational status: unemployed and retired Meds Allergies Allergy/AdvReac Type Severity Reaction Status Date / Time shellfish derived Allergy Severe ANAPHYLAXIS Verified 06/29/23 10:27 [SHELLFISH DERIVED] pollen extracts [POLLEN] Allergy Intermediate RUNNING Verified 06/29/23 10:27 NOSE, WATERY EYES, SNEEZING varenicline [VARENICLINE] AdvReac Unknown PALPITATION Verified 06/29/23 10:27 S Active Medications: Current Medications Sodium Chloride (Ns) 1,000 mls @ 999 mls/hr IV .Q1H1M ONE Stop: 07/02/23 06:06 Home Medications Medication Instructions Recorded Confirmed Last Taken Type metformin 500 mg tablet 500 mg PO DAILY 09/28/20 06/29/23 06/17/23 09:00 History omeprazole 20 mg capsule,delayed 20 mg PO DAILY@0630 12/01/20 06/29/23 06/17/23 06:30 History release nabumetone 500 mg tablet 1 tab PO BID PRN knee pain 01/29/22 06/29/23 08/28/22 History fluticasone fur. 200 mcg-umeclid 1 puff inhalation DAILY 08/28/22 06/29/23 06/17/23 09:00 History 62.5 mcg-vilant 25 mcg inhalat.powder (Trelegy Ellipta) multivitamin with folic acid 400 1 tab PO DAILY 08/28/22 06/29/23 06/17/23 09:00 History mcg tablet (Daily-Leslie (with folic acid)) levothyroxine 88 mcg tablet 88 mcg PO DAILY@0600 06/17/23 06/29/23 06/17/23 06:00 History prednisone 20 mg tablet 20 mg PO DAILY 06/17/23 06/29/23 06/17/23 09:00 History acetaminophen 325 mg tablet 650 mg PO Q6H PRN Pain 06/18/23 06/29/23 Unknown History (Tylenol) cholecalciferol (vitamin D3) 25 25 mcg PO DAILY 07/06/29/23 06/17/23 09:00 History mcg (1,000 unit) tablet topiramate 50 mg tablet 50 mg PO DAILY 06/18/23 06/29/23 06/17/23 09:00 History albuterol sulfate 90 mcg/actuation 90 mcg inhalation DAILY 06/29/23 06/29/23 Unknown History aerosol inhaler (Ventolin HFA) mirtazapine 7.5 mg tablet 7.5 mg PO BEDTIME 06/29/23 06/29/23 Unknown History oxycodone 5 mg tablet 5 mg PO BID 06/29/23 06/29/23 Unknown History Physical Exam Vital Signs and Narrative: Vital Signs: Last Vital Signs Temp 98.4 F 07/02/23 03:44 Pulse 101 H 07/02/23 03:44 Resp 22 H 07/02/23 03:44 BP 125/60 07/02/23 03:44 Pulse Ox 95 07/02/23 03:44 O2 Del Method Room Air 07/02/23 03:44 BMI result Body Mass Index 17.6 Elderly male lying in bed in mild distress Neck supple, no JVD Tachycardia with regular rhythm, S1-S2 heard Tachypnea with bilateral wheezing present Abdomen soft nontender, no guarding, no rigidity Patient is awake, alert and oriented to self, place, time and person ; no focal motor deficit Psych: Normal mood No pedal edema Results Labs 07/02/23 03:05 07/02/23 03:05 Labs: Laboratory Results - last 24 hr 07/02/23 07/02/23 07/02/23 03:05 03:05 03:06 MCV 76.2 L MCH 22.7 L MCHC 29.8 L RDW 17.7 H Plt Count 543 H MPV 9.6 Immature Gran % (Auto) 0.8 H Neut % (Auto) 78.7 H Lymph % (Auto) 11.6 L [place] % (Auto) 6.6 Eos % (Auto) 2.0 Baso % (Auto) 0.3 Lymph # (Auto) 1.8 [place] # (Auto) 1.0 Eos # (Auto) 0.3 Baso # (Auto) 0.0 Abs Immat Gran (auto) 0.13 H Absolute Neuts (auto) 12.3 H Absolute Nucleated RBC 0.000 Nucleated RBC % (auto) 0.0 D-Dimer High Sensitivty Anion Gap 19 Estim Creat Clear Calc 52.1 Estimated GFR > 60 Random Glucose 114 Lactic Acid 1.6 Calcium 9.5 D 07/02/23 03:11 MCV MCH MCHC RDW Plt Count MPV Immature Gran % (Auto) Neut % (Auto) Lymph % (Auto) [place] % (Auto) Eos % (Auto) Baso % (Auto) Lymph # (Auto) [place] # (Auto) Eos # (Auto) Baso # (Auto) Abs Immat Gran (auto) Absolute Neuts (auto) Absolute Nucleated RBC Nucleated RBC % (auto) D-Dimer High Sensitivty 343 Anion Gap Estim Creat Clear Calc Estimated GFR Random Glucose Lactic Acid Calcium Imaging Radiologist's Impressions: Impressions Chest X-Ray 07/02/23 03:11 IMPRESSION: * No acute findings. * Multiple right-sided pleural masses redemonstrated without appreciable change from a radiographic standpoint. * Emphysema. 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 #.? Acute respiratory distress due to acute exacerbation of asthma/COPD.? Will admit patient and initiate systemic steroids.? Scheduled and p.r.n. DuoNebs.? Continue home inhaler.? Initiating azithromycin for pleiotropic effect #. Reactive leukocytosis: in the setting of above #.? Zle-fshrkdg-dfrtvdrol diabetes mellitus.? Initiating Accu-Cheks with sliding scale insulin in the setting of steroid use #.? Hypothyroidism.? On Synthroid #.? Mood disorder.? Continue home mood stabilizers #.? Microcytic anemia.? Obtaining iron studies #.? ?Progression of pleural based mass on imaging.? Recommend outpatient chest CT follow-up #.? Tobacoo use disorder: Ordering nicotine patch. Recommended cessation #.? H/o lung cancer: Pt refused therapy in the past. Outpatient follow up Med rec pending DVT prophylaxis:? Lovenox Full code Regular diet Time Spent With Patient Time: Total time managing care of this patient today ____ minutes. Quality Stroke Does the patient have a stroke diagnosis?: No VTE Prior VTE?: No VTE Risk Level:: Medical - moderate - high VTE Device Contraindication: Treatment Not Indicated VTE Drug Contraindication: N/A - Med Ordered
--- NOTE | 2023-07-02 06:11 | PC.NURSE ---
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 Endorses recent cough. Hx COPD and Asthma. Pt immediately brought back to ED 5, respiratory at bedside. NEbu treatment initiated. 20 gauge IV line placed in right hand. EKG completed. Labs drawn. Continuous cardiac monitoring initiated Medications administered per JAN. Call grimes within reach. Will continue to follow plan of care.
[2023-07-02] MEDS: methylPREDNISolone Sod Succ 40 MG/ML VIAL IVPUSH ×2 (06:23→17:11)
[2023-07-02] MEDS: Azithromycin 500 MG in 0.9 % Sodium Chloride 250 ML 125 MG IV (06:23)
[2023-07-02 06:24] LABS: Iron 14 mcg/dL (45-160); Percent Iron Saturation 6 % (15-50); Total Iron Binding Capacity 252 mcg/dL (228-428); Unsaturated Iron Binding 238 ug/dL
[2023-07-02] MEDS: Nicotine 14 MG PATCH.TD24 TRANSDERMA ×2 (06:33→07:39)
--- NOTE | 2023-07-02 06:47 | MHC.EDTECH ---
Hourly rounds completed,vitals taken and patient voided 300cc of urine in urinal. Belongings list completed and placed in chart
[2023-07-02] MEDS: Enoxaparin Sodium 40 MG/0.4 ML SYRINGE SUBCUT (06:49)
--- NOTE | 2023-07-02 07:15 | PC.NURSE ---
Resumed care of patient, he is currently a/ox4. Denies having any pain at this time, reporting his breathing is good. Pt looks like comfortable, no s/s of resp distress. Pt currently has IVF, and IVAtnx running. Awaiting bed placement at this time
[2023-07-02 07:25] LABS: Glucose, Whole Blood 192 mg/dL (60-115)
[2023-07-02] MEDS: Insulin Lispro 100 UNIT/ML 3 ML VIAL SUBCUT ×4 (07:39→20:33)
--- NOTE | 2023-07-02 07:43 | PHA.MEDREC ---
Pharmacy Consult ? Medication Reconciliation Pharmacy has completed the medication reconciliation. Used claim history and discharge summary from 06/19/23 to complete med rec.
--- NOTE | 2023-07-02 08:28 | PC.NURSE ---
Report given to overflow RN, pt to be transported over shortly
[2023-07-02 09:33] LABS: Adenovirus PCR Not Detected (Not Detect.); Bordetella parapertussis PCR Not Detected (Not Detect.); Bordetella pertussis PCR Not Detected (Not Detect.); Chlamydia pneumoniae PCR Not Detected (Not Detect.); Coronavirus 229E PCR Not Detected (Not Detect.); Coronavirus HKU1 PCR Not Detected (Not Detect.); Coronavirus NL63 PCR Not Detected (Not Detect.); Coronavirus OC43 PCR Not Detected (Not Detect.); Human metapneumovirus PCR Not Detected (Not Detect.); Influenza A PCR Not Detected (Not Detect.); Influenza B PCR Not Detected (Not Detect.); Mycoplasma pneumoniae PCR Not Detected (Not Detect.); Parainfluenza 1 PCR Not Detected (Not Detect.); Parainfluenza 2 PCR Not Detected (Not Detect.); Parainfluenza 3 PCR Not Detected (Not Detect.); Parainfluenza 4 PCR Not Detected (Not Detect.); RSV PCR Not Detected (Not Detect.); Rhino/Enterovirus PCR Not Detected (Not Detect.); SARS-CoV-2 PCR Not Detected (Not Detect.)
[2023-07-02] MEDS: Multivitamin TABLET 1 TAB PO (09:54)
[2023-07-02] MEDS: Theophylline Anhydrous ER 400 MG TAB.ER.24H PO (09:54)
[2023-07-02] MEDS: Topiramate 25 MG TABLET 50 MG PO (09:54)
[2023-07-02] MEDS: Pyridoxine HCl (Vitamin B6) 50 MG TABLET PO (09:54)
[2023-07-02] MEDS: Levothyroxine Sodium 88 MCG TABLET PO (09:55)
[2023-07-02] MEDS: Omeprazole 20 MG CAPSULE.DR PO (09:55)
[2023-07-02] MEDS: Cholecalciferol (Vitamin D3) 25 MCG TABLET PO (09:55)
[2023-07-02] MEDS: Lidocaine 4 % Patch ADH..PATCH 1 PATCH TRANSDERMA (10:43)
[2023-07-02 11:01] LABS: Glucose, Whole Blood 156 mg/dL (60-115)
[2023-07-02 11:13] LABS: Procalcitonin 8.69 ng/mL
--- NOTE | 2023-07-02 11:42 | PC.NURSE ---
Lab called stating sputum that was sent was contaminated/ had too much saliva. Provider notified, no new orders at this time.
--- NOTE | 2023-07-02 13:50 | PM.EVENT ---
Event Note Date of Service: 07/02/23 Event Note: day hospitalist update S This history was taken in Lebanese from the patient. C/o cough, dyspnea No fever O Temp Pulse Resp BP Pulse Ox O2 Del Method 98.6 F 91 18 135/54 L 95 Room Air 07/02/23 06:46 07/02/23 11:57 07/02/23 11:57 07/02/23 06:46 07/02/23 06:46 07/02/23 06:46 Gen: in no acute distress HEENT: sclera anicteric, moist mucus membranes Neck: supple Lungs: bilateral end-expiratory wheezing at base Heart: regular rate and rhythm, no murmurs Abd: soft, non-tender, non-distended Ext: no edema Skin: warm/well-perfused Neuro: alert and oriented x3, no focal findings Psych: appropriate affect Impressions Chest X-Ray 07/02/23 03:11 IMPRESSION: * No acute findings. * Multiple right-sided pleural masses redemonstrated without appreciable change from a radiographic standpoint. * Emphysema. A/P d1 77yo M with COPD/asthma, lung CA not on treatment, DM2, hypothyroidism presenting with dyspnea, admitted for exacerbation of COPD/asthma acute exacerbation of COPD/asthma overlap - IV methylprednisolone 40 mg q12h, standing/prn nebs, home controller inhalers, theophylline - PCT markedly elevated, suspect PNA- will start azithro + ceftriax d1, follow BCx + check urine antigens for Legionella and pneumococcus + MRSA swab - resp pathogen panel negative microcytic anemia - Fe when bacterial infection controlled DM2 - daly-dose lispro hypothyroidism - LT4 tobacco abuse - NRT VTE ppx - LMWH dispo - anticipate eventually home, may need VNA In my clinical judgment, the patient requires continued inpatient hospitalization for the following reasons: IV ABX Time Spent With Patient Time: Total time managing care of this patient today ____ minutes.
--- NOTE | 2023-07-02 15:20 | PC.NURSE ---
report given to accepting unit
[2023-07-02 16:08] LABS: Glucose, Whole Blood 199 mg/dL (60-115)
[2023-07-02] MEDS: 0.9 % Sodium Chloride Flush 3 ML SYRINGE IVFLUSH (17:11)
[2023-07-02 20:23] LABS: Glucose, Whole Blood 213 mg/dL (60-115)
[2023-07-02] MEDS: Mirtazapine 7.5 MG TABLET PO (20:33)
[2023-07-02] MEDS: Topiramate 25 MG TABLET 100 MG PO (20:33)
[2023-07-03] VITALS (8 sets, daily range): BP systolic 115–137; BP diastolic 61–80; PULSE 62–96; RESP 16–20; TEMP 36.4–36.9; O2SAT 96–98
[2023-07-03] MEDS: cefTRIAXone sodium 1 GM in 0.9 % Sodium Chloride 50 ML IV (04:13)
[2023-07-03] MEDS: methylPREDNISolone Sod Succ 40 MG/ML VIAL IVPUSH ×2 (05:41→16:51)
[2023-07-03] MEDS: Levothyroxine Sodium 88 MCG TABLET PO (05:41)
[2023-07-03] MEDS: Omeprazole 20 MG CAPSULE.DR PO (05:41)
[2023-07-03] MEDS: Azithromycin 500 MG in 0.9 % Sodium Chloride 250 ML 125 MG IV (05:41)
[2023-07-03] MEDS: Enoxaparin Sodium 40 MG/0.4 ML SYRINGE SUBCUT (05:41)
[2023-07-03 05:42] LABS: Basophils Percent Auto 0.1 % (0-2); Hematocrit 28.7 % (42.0-52.0); Hemoglobin 8.5 g/dl (14.0-18.0); Imm Gran Abs Auto 0.09 X10*3/uL (0.00-0.03); Imm Gran Pct Auto 0.9 % (0.0-0.4); Lymphocytes Absolute Auto 0.4 X10*3/uL (1.2-4.9); Lymphocytes Percent Auto 4.1 % (20-40); MANUAL DIFF FLAG SCAN; Mean Corpuscular HGB Conc 29.6 g/dl (31.0-36.0); Mean Corpuscular Hemoglobin 22.7 pg (27.0-33.0); Mean Corpuscular Volume 76.5 fL (80.0-98.0); Mean Platelet Volume 10.4 fL (9.4-12.4); Monocytes Absolute Auto 0.3 X10*3/uL (0.1-1.2); Monocytes Percent Auto 3.1 % (2-11); Neutrophils Absolute Auto 9.7 x10*3/uL (2.0-8.3); Neutrophils Percent Auto 91.8 % (45-73); Platelet Count 410 X10*3/uL (160-400); Red Blood Count 3.75 X10*6/uL (4.60-5.80); Red Cell Distribution Width 17.3 % (11.0-16.0); SCAN SMEAR FLAG 1; White Blood Count 10.6 X10*3/uL (4.8-10.8)
[2023-07-03 05:52] LABS: Anion Gap 17 (12-20); Blood Urea Nitrogen 17 mg/dL (9-16); Calcium 9.3 mg/dL (8.4-10.2); Carbon Dioxide 22 mmol/L (22-29); Chloride 105 mmol/L (96-108); Creatinine Clr Calc Pharmacy 51.4; Estimated Glomerular Filt Rate > 60; Glucose Random 206 mg/dL (60-115); Potassium 4.5 mmol/L (3.3-5.1); Sodium 139 mmol/L (135-145)
[2023-07-03 06:06] LABS: SLIDE REVIEW VERIFIED
[2023-07-03 08:10] LABS: Glucose, Whole Blood 146 mg/dL (60-115)
[2023-07-03] MEDS: Fluticasone/Umeclidinium/Vilanterol 200/62.5/25 BLST.W.DEV 1 PUFF INHALE (08:25)
[2023-07-03] MEDS: Albuterol/Iprat 2.5/0.5MG 3 ML AMPUL.NEB INHALE ×4 (08:25→19:08)
[2023-07-03] MEDS: Topiramate 25 MG TABLET 50 MG PO (08:56)
[2023-07-03] MEDS: Nicotine 14 MG PATCH.TD24 TRANSDERMA (08:57)
[2023-07-03] MEDS: Theophylline Anhydrous ER 400 MG TAB.ER.24H PO (08:57)
[2023-07-03] MEDS: Pyridoxine HCl (Vitamin B6) 50 MG TABLET PO (08:57)
[2023-07-03] MEDS: Lidocaine 4 % Patch ADH..PATCH 1 PATCH TRANSDERMA (08:57)
[2023-07-03] MEDS: Multivitamin TABLET 1 TAB PO (08:57)
[2023-07-03] MEDS: Cholecalciferol (Vitamin D3) 25 MCG TABLET PO (08:57)
--- NOTE | 2023-07-03 10:34 | HO.PM.IMPN ---
Subjective Subjective Date of Service: 07/03/23 Interval History: breathing improved no fever This history was taken in [place] from the patient. Review of Systems Review of Systems: Yes all other systems are reviewed and are negative Physical Exam Vital Signs: Vital Signs: Last Vital Signs Temp 98.3 F 07/03/23 08:15 Pulse 81 07/03/23 08:25 Resp 20 07/03/23 08:25 BP 115/66 07/03/23 08:15 Pulse Ox 96 07/03/23 08:15 O2 Del Method Room Air 07/03/23 08:15 BMI result Body Mass Index 17.6 Gen: in no acute distress, bitemporal wasting HEENT: sclera anicteric, moist mucus membranes Neck: supple Lungs: bilateral end-expiratory wheezing at base Heart: regular rate and rhythm, no murmurs Abd: soft, non-tender, non-distended Ext: no edema Skin: warm/well-perfused Neuro: alert and oriented x3, no focal findings Psych: appropriate affect Objective Data Active Medications Acetaminophen (Acetaminophen 325 Mg Tablet) 650 mg PO Q6H PRN PRN Reason: Pain, Mild (Pain Scale 1-3) Albuterol/Ipratropium (Albuterol/Iprat 2.5/0.5mg 3 Ml Ampul.Neb) 3 ml INHALE RQ4H WHILE AWAKE [facility] Last Admin: 07/03/23 08:25 Dose: 3 ml Documented By: RUBEN Albuterol/Ipratropium (Albuterol/Iprat 2.5/0.5mg 3 Ml Ampul.Neb) 3 ml INHALE Q4H PRN PRN Reason: Wheezing Dextrose (Dextrose 50 % 25 Gm/50 Ml Syringe) 25 gm IVPUSH Q15M PRN; Protocol PRN Reason: per Hypoglycemia Standing Ord. Enoxaparin Sodium (Enoxaparin Sodium 40 Mg/0.4 Ml Syringe) 40 mg SUBCUT Q24H [facility] Last Admin: 07/03/23 05:41 Dose: 40 mg Documented By: LAURA Fluticasone/Umeclidinium/Vilanterol (Fluticasone/Umeclidinium/Vilanterol 200/62.5/25 Blst.W.Dev) 1 puff INHALE RDAILY [facility] Last Admin: 07/03/23 08:25 Dose: 1 puff Documented By: RUBEN Glucose (Glucose Gel 15 Gm Gel..Gram.) 15 gm PO Q15M PRN; Protocol PRN Reason: per Hypoglycemia Standing Ord. Azithromycin 500 mg/ Sodium (Chloride) 250 mls @ 125 mls/hr IV Q24H [facility] Last Infusion: 07/03/23 09:44 Dose: 0 mls/hr Documented By: KATIE Ceftriaxone Sodium 1 gm/ (Sodium Chloride) 50 mls @ 100 mls/hr IV Q24H [facility] Last Infusion: 07/03/23 04:44 Dose: 0 mls/hr Documented By: LAURA Insulin Human Lispro (Insulin Lispro 100 Unit/Ml 3 Ml Vial) 0 unit SUBCUT QIDACHS [facility]; Protocol Last Admin: 07/03/23 08:14 Dose: Not Given Documented By: KATIE Non-Admin Reason: No Insulin Coverage Levothyroxine Sodium (Levothyroxine Sodium 88 Mcg Tablet) 88 mcg PO DAILY@0600 [facility] Last Admin: 07/03/23 05:41 Dose: 88 mcg Documented By: LAURA Lidocaine (Lidocaine 4 % Patch Adh..Patch) 1 patch TRANSDERMA DAILY [facility]; Protocol Last Admin: 07/03/23 08:57 Dose: 1 patch Documented By: KATIE Melatonin (Melatonin 3 Mg Tablet) 6 mg PO BEDTIME PRN PRN Reason: Insomnia Methylprednisolone Sodium Succinate (Methylprednisolone Sod Succ 40 Mg/Ml Vial) 40 mg IVPUSH Q12H [facility] Last Admin: 07/03/23 05:41 Dose: 40 mg Documented By: LAURA Mirtazapine (Mirtazapine 7.5 Mg Tablet) 7.5 mg PO BEDTIME [facility] Last Admin: 07/02/23 20:33 Dose: 7.5 mg Documented By: LAURA Multivitamins/Vitamin C (Multivitamin Tablet) 1 tab PO DAILY [facility] Last Admin: 07/03/23 08:57 Dose: 1 tab Documented By: KATIE Nicotine (Nicotine 14 Mg Patch.Td24) 14 mg TRANSDERMA DAILY [facility] Last Admin: 07/03/23 08:57 Dose: 14 mg Documented By: KATIE Omeprazole (Omeprazole 20 Mg Capsule.Dr) 20 mg PO DAILY@0630 [facility] Last Admin: 07/03/23 05:41 Dose: 20 mg Documented By: LAURA Ondansetron HCl (Ondansetron Hcl 4 Mg/2 Ml Vial) 4 mg IVPUSH Q8H PRN PRN Reason: Nausea and Vomiting Oxycodone HCl (Oxycodone Hcl Immed Release 5 Mg Tablet) 5 mg PO Q4H PRN PRN Reason: Pain severe Pharmacy Consult (Consult Rx Perform Med Rec) 1 each MISCELLANE ONCE PRN PRN Reason: Consult order Pyridoxine HCl (Pyridoxine Hcl (Vitamin B6) 50 Mg Tablet) 50 mg PO DAILY [facility] Last Admin: 07/03/23 08:57 Dose: 50 mg Documented By: KATIE Sodium Chloride (0.9 % Sodium Chloride Flush 3 Ml Syringe) 3 ml IVFLUSH QSHIFT [facility] Last Admin: 07/03/23 08:14 Dose: Not Given Documented By: KATIE Non-Admin Reason: IV Running Theophylline (Theophylline Anhydrous Er 400 Mg Tab.Er.24h) 400 mg PO DAILY [facility] Last Admin: 07/03/23 08:57 Dose: 400 mg Documented By: KATIE Topiramate (Topiramate 25 Mg Tablet) 100 mg PO BEDTIME [facility] Last Admin: 07/02/23 20:33 Dose: 100 mg Documented By: LAURA Topiramate (Topiramate 25 Mg Tablet) 50 mg PO DAILY [facility] Last Admin: 07/03/23 08:56 Dose: 50 mg Documented By: KATIE Vitamin D (Cholecalciferol (Vitamin D3) 25 Mcg Tablet) 25 mcg PO DAILY [facility] Last Admin: 07/03/23 08:57 Dose: 25 mcg Documented By: KATIE Labs 07/03/23 05:22 07/03/23 05:22 Labs: Laboratory Results - last 24 hr 07/02/23 07/02/23 07/02/23 06:05 10:57 16:01 MCV MCH MCHC RDW Plt Count MPV Immature Gran % (Auto) Neut % (Auto) Lymph % (Auto) [place] % (Auto) Eos % (Auto) Baso % (Auto) Lymph # (Auto) [place] # (Auto) Eos # (Auto) Baso # (Auto) Abs Immat Gran (auto) Absolute Neuts (auto) Absolute Nucleated RBC Nucleated RBC % (auto) Smear Tech's Comments Anion Gap Estim Creat Clear Calc Estimated GFR POC Glucose 156 H 199 H Random Glucose Calcium Procalcitonin 8.69 07/02/23 07/03/23 07/03/23 20:20 05:22 05:22 MCV 76.5 L MCH 22.7 L MCHC 29.6 L RDW 17.3 H Plt Count 410 H MPV 10.4 Immature Gran % (Auto) 0.9 H Neut % (Auto) 91.8 H Lymph % (Auto) 4.1 L [place] % (Auto) 3.1 Eos % (Auto) 0.0 Baso % (Auto) 0.1 Lymph # (Auto) 0.4 L [place] # (Auto) 0.3 Eos # (Auto) 0.0 Baso # (Auto) 0.0 Abs Immat Gran (auto) 0.09 H Absolute Neuts (auto) 9.7 H Absolute Nucleated RBC 0.000 Nucleated RBC % (auto) 0.0 Smear Tech's Comments VERIFIED Anion Gap 17 Estim Creat Clear Calc 51.4 Estimated GFR > 60 POC Glucose 213 H Random Glucose 206 H Calcium 9.3 Procalcitonin 07/03/23 08:03 MCV MCH MCHC RDW Plt Count MPV Immature Gran % (Auto) Neut % (Auto) Lymph % (Auto) [place] % (Auto) Eos % (Auto) Baso % (Auto) Lymph # (Auto) [place] # (Auto) Eos # (Auto) Baso # (Auto) Abs Immat Gran (auto) Absolute Neuts (auto) Absolute Nucleated RBC Nucleated RBC % (auto) Smear Tech's Comments Anion Gap Estim Creat Clear Calc Estimated GFR POC Glucose 146 H Random Glucose Calcium Procalcitonin Microbiology Microbiology Results: Microbiology 07/02/23 04:21 Blood Culture - Preliminary Blood - Venous No growth after 24 hours. 07/02/23 03:05 Blood Culture - Preliminary Blood - Venous No growth after 24 hours. 07/02/23 10:16 Gram Stain - Final Sputum - Expectorated Sputum Culture - Final Assessment and Plan (1) Acute exacerbation of chronic obstructive pulmonary disease: Status: Acute Plan d2 77yo M with COPD/asthma, lung CA not on treatment, DM2, hypothyroidism presenting with dyspnea, admitted for exacerbation of COPD/asthma acute exacerbation of COPD/asthma overlap - IV methylprednisolone 40 mg q12h, standing/prn nebs, home controller inhalers, theophylline - PCT markedly elevated, suspect PNA- on azithro + ceftriax d2, Bcx + urine antigens for Legionella and pneumococcus + MRSA swab all pending, sputum culture contaminated by oral yoseph, resp pathogen panel negative - CT chest read pending microcytic anemia - Fe when bacterial infection controlled DM2 - daly-dose lispro hypothyroidism - LT4 tobacco abuse - NRT VTE ppx - LMWH dispo - anticipate eventually home, may need VNA In my clinical judgment, the patient requires continued inpatient hospitalization for the following reasons: IV ABX Time Spent With Patient Time: Total time managing care of this patient today _35___ minutes. Quality Stroke Does the patient have a stroke diagnosis?: No VTE Prior VTE?: No VTE Risk Level:: Medical - moderate - high VTE Device Contraindication: Treatment Not Indicated VTE Drug Contraindication: N/A - Med Ordered
[2023-07-03 10:35] LABS: Glucose, Whole Blood 172 mg/dL (60-115)
[2023-07-03 11:34] LABS: MRSA Nasal PCR NEGATIVE (Negative); SA Nasal PCR NEGATIVE (Negative)
[2023-07-03] MEDS: Insulin Lispro 100 UNIT/ML 3 ML VIAL SUBCUT ×2 (11:50→16:51)
[2023-07-03 16:42] LABS: Glucose, Whole Blood 254 mg/dL (60-115)
[2023-07-03] MEDS: 0.9 % Sodium Chloride Flush 3 ML SYRINGE IVFLUSH (16:53)
[2023-07-03 20:37] LABS: Glucose, Whole Blood 134 mg/dL (60-115)
[2023-07-03] MEDS: Mirtazapine 7.5 MG TABLET PO (20:59)
[2023-07-03] MEDS: Topiramate 25 MG TABLET 100 MG PO (20:59)
[2023-07-04 03:18] VITALS: BP 126/59; PULSE 80; RESP 20; TEMP 36.2; O2SAT 98
[2023-07-04] MEDS: cefTRIAXone sodium 1 GM in 0.9 % Sodium Chloride 50 ML IV (03:25)
[2023-07-04 05:47] LABS: Hematocrit 29.7 % (42.0-52.0); Hemoglobin 8.9 g/dl (14.0-18.0); Mean Corpuscular Hemoglobin 22.8 pg (27.0-33.0); Mean Corpuscular Volume 76.2 fL (80.0-98.0); Mean Platelet Volume 9.7 fL (9.4-12.4); Platelet Count 398 X10*3/uL (160-400); Red Cell Distribution Width 17.5 % (11.0-16.0)
[2023-07-04 05:48] LABS: VBG Base Excess 1.8 mmol/L; VBG HCO3 24 mmol/L (22-26); VBG pCO2 33 mmHg; VBG pH 7.48 (7.32-7.43); VBG pO2 103 mmHg
[2023-07-04 05:49] LABS: Venous Blood Gas Refer to POC result
[2023-07-04] MEDS: methylPREDNISolone Sod Succ 40 MG/ML VIAL IVPUSH (06:01)
[2023-07-04] MEDS: Azithromycin 500 MG in 0.9 % Sodium Chloride 250 ML 125 MG IV (06:01)
[2023-07-04] MEDS: Omeprazole 20 MG CAPSULE.DR PO (06:03)
[2023-07-04] MEDS: Levothyroxine Sodium 88 MCG TABLET PO (06:03)
[2023-07-04] MEDS: Enoxaparin Sodium 40 MG/0.4 ML SYRINGE SUBCUT (06:04)
[2023-07-04 06:06] LABS: Anion Gap 15 (12-20); Blood Urea Nitrogen 22 mg/dL (9-16); Calcium 9.2 mg/dL (8.4-10.2); Carbon Dioxide 22 mmol/L (22-29); Chloride 106 mmol/L (96-108); Creatinine Clr Calc Pharmacy 51.4; Estimated Glomerular Filt Rate > 60; Glucose Random 143 mg/dL (60-115); Potassium 4.1 mmol/L (3.3-5.1); Sodium 139 mmol/L (135-145)
[2023-07-04 06:22] LABS: Procalcitonin 9.56 ng/mL
[2023-07-04] MEDS: Fluticasone/Umeclidinium/Vilanterol 200/62.5/25 BLST.W.DEV 1 PUFF INHALE (07:45)
[2023-07-04] MEDS: Albuterol/Iprat 2.5/0.5MG 3 ML AMPUL.NEB INHALE ×2 (07:45→12:02)
[2023-07-04 07:47] VITALS: PULSE 87; RESP 18; O2SAT 97
[2023-07-04 07:57] LABS: Glucose, Whole Blood 129 mg/dL (60-115)
[2023-07-04 08:00] VITALS: BP 125/63; PULSE 83; RESP 20; TEMP 36.3; O2SAT 99
[2023-07-04] MEDS: Nicotine 14 MG PATCH.TD24 TRANSDERMA (08:59)
[2023-07-04] MEDS: Lidocaine 4 % Patch ADH..PATCH 1 PATCH TRANSDERMA (08:59)
[2023-07-04] MEDS: 0.9 % Sodium Chloride Flush 3 ML SYRINGE IVFLUSH (08:59)
[2023-07-04] MEDS: Cholecalciferol (Vitamin D3) 25 MCG TABLET PO (09:00)
[2023-07-04] MEDS: Multivitamin TABLET 1 TAB PO (09:00)
[2023-07-04] MEDS: Theophylline Anhydrous ER 400 MG TAB.ER.24H PO (09:00)
[2023-07-04] MEDS: Topiramate 25 MG TABLET 50 MG PO (09:00)
[2023-07-04] MEDS: Pyridoxine HCl (Vitamin B6) 50 MG TABLET PO (09:00)
[2023-07-04 11:36] LABS: Glucose, Whole Blood 214 mg/dL (60-115)
[2023-07-04 12:02] VITALS: PULSE 83; RESP 20; O2SAT 97
[2023-07-04] MEDS: Insulin Lispro 100 UNIT/ML 3 ML VIAL SUBCUT (12:40)
--- NOTE | 2023-07-04 13:10 | PM.DS ---
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 Patient states he has been having wheezing, dyspnea worse with exertion and cough with clear sputum production that has been ongoing for the last 2 days. It is progressive and got worse on the day of presentation and hence he decided to come to the ER. He continues to smoke tobacco. Patient has refused therapy for lung cancer. He denies fever, chills, chest discomfort, palpitations, abdominal pain, changes in urinary or bowel habits. In the emergency department, patient with dyspnea and tachypnea despite multiple DuoNeb treatments. 77yo M with COPD/asthma, lung CA not on treatment, DM2, and hypothyroidism presenting with dyspnea was admitted for exacerbation of COPD/asthma along with pneumonia. He was admitted to the medical-surgical floor and treated with IV steroids and nebulized bronchodilators. He was given ceftriaxone and azithromycin for 3 days. Blood cultures were negative. His symptoms improved and he was never hypoxic. He was discharge home on an 8-day prednisone taper along with 7 days of cefdinir and doxycycline. He should follow-up with his oncologist and his primary care doctor within 1-2 weeks. He was also prescribed iron for anemia. Time Spent with Patient Time attestation: Total time managing care of this patient today __35__ minutes. Discharge coordination time: Greater than 30 minutes Quality: Safe Use of Opioids Does Pt have an Active Cancer Diagnosis on the Problem List?: No Quality: Stroke Does the patient have a stroke diagnosis?: No Physical Exam Vital Signs: Vital Signs: Last Vital Signs Temp 97.3 F 07/04/23 08:00 Pulse 83 07/04/23 12:02 Resp 20 08/06/23 12:02 BP 125/63 07/04/23 08:00 Pulse Ox 99 07/04/23 08:00 O2 Del Method Room Air 07/04/23 08:00 BMI result Body Mass Index 17.6 Gen: in no acute d istress, bitempora l wasting HEENT: s clera anicteric, m oist mucus membran es Neck: supple Noemi ngs: clear bilater ally Heart: regula r rate and rhythm, no murmurs Abd: s oft, non-tender, n on-distended Ext: no edema Skin: war m/well-perfused Ne uro: alert and kimberly ented x3, no focal findings Psych: a ppropriate affect DS: Data Data Completed and Pending Completed studies during hospitalization [Text1]: Laboratory Results WBC 14.0 X10*3/uL (4.8-10.8) H 07/04/23 05:38 RBC 3.90 X10*6/uL (4.60-5.80) L 07/04/23 05:38 Hgb 8.9 g/dl (14.0-18.0) L 07/04/23 05:38 Hct 29.7 % (42.0-52.0) L 07/04/23 05:38 MCV 76.2 fL (80.0-98.0) L 07/04/23 05:38 MCH 22.8 pg (27.0-33.0) L 07/04/23 05:38 MCHC 30.0 g/dl (31.0-36.0) L 07/04/23 05:38 RDW 17.5 % (11.0-16.0) H 07/04/23 05:38 Plt Count 398 X10*3/uL (160-400) 07/04/23 05:38 MPV 9.7 fL (9.4-12.4) 07/04/23 05:38 Immature Gran % (Auto) 0.9 % (0.0-0.4) H 07/03/23 05:22 Neut % (Auto) 91.8 % (45-73) H 07/03/23 05:22 Lymph % (Auto) 4.1 % (20-40) L 07/03/23 05:22 [place] % (Auto) 3.1 % (2-11) 07/03/23 05:22 Eos % (Auto) 0.0 % (0-4) 07/03/23 05:22 Baso % (Auto) 0.1 % (0-2) 07/03/23 05:22 Lymph # (Auto) 0.4 X10*3/uL (1.2-4.9) L 07/03/23 05:22 [place] # (Auto) 0.3 X10*3/uL (0.1-1.2) 07/03/23 05:22 Eos # (Auto) 0.0 X10*3/uL (0.0-0.4) 07/03/23 05:22 Baso # (Auto) 0.0 X10*3/uL (0.0-0.2) 07/03/23 05:22 Abs Immat Gran (auto) 0.09 X10*3/uL (0.00-0.03) H 07/03/23 05:22 Absolute Neuts (auto) 9.7 x10*3/uL (2.0-8.3) H 07/03/23 05:22 Absolute Nucleated RBC 0.000 X10*3/uL (0.0-0.012) 07/04/23 05:38 Nucleated RBC % (auto) 0.0 /100WBC (0.0-0.2) 07/04/23 05:38 Smear Tech's Comments VERIFIED 07/03/23 05:22 D-Dimer High Sensitivty 343 NG/ML 07/02/23 03:11 VBG pH 7.48 (7.32-7.43) H 07/04/23 05:39 VBG pCO2 33 mmHg 07/04/23 05:39 VBG pO2 103 mmHg 07/04/23 05:39 VBG HCO3 24 mmol/L (22-26) 07/04/23 05:39 VBG O2 Saturation 99.0 % 07/04/23 05:39 VBG Base Excess 1.8 mmol/L 07/04/23 05:39 Sodium 139 mmol/L (135-145) 07/04/23 05:38 Potassium 4.1 mmol/L (3.3-5.1) 07/04/23 05:38 Chloride 106 mmol/L (96-108) 07/04/23 05:38 Carbon Dioxide 22 mmol/L (22-29) 07/04/23 05:38 Anion Gap 15 (12-20) 07/04/23 05:38 BUN 22 mg/dL (9-16) H 07/04/23 05:38 Creatinine 0.84 mg/dL (0.5-1.4) 07/04/23 05:38 Estim Creat Clear Calc 51.4 07/04/23 05:38 Estimated GFR > 60 07/04/23 05:38 POC Glucose 214 mg/dL (60-115) H 07/04/23 11:29 Random Glucose 143 mg/dL (60-115) H 07/04/23 05:38 Lactic Acid 1.6 mmol/L (0.5-2.0) 07/02/23 03:06 Calcium 9.2 mg/dL (8.4-10.2) 07/04/23 05:38 Iron 14 mcg/dL (45-160) L 07/02/23 06:05 TIBC 252 mcg/dL (228-428) 07/02/23 06:05 % Saturation 6 % (15-50) L 07/02/23 06:05 Unsat Iron Binding 238 ug/dL 07/02/23 06:05 Troponin I High Sens 3.4 ng/L (<3.5-35.0) 07/02/23 03:05 Procalcitonin 9.56 ng/mL 07/04/23 05:38 Nasal Screen MRSA (PCR) NEGATIVE (Negative) 07/02/23 16:13 Nasal S. aureus Screen NEGATIVE (Negative) 07/02/23 16:13 Nasal MRSA/S.aureus Interp SEE NOTE 07/02/23 16:13 Respiratory Panel Hendrix See Note 07/02/23 07:58 Adenovirus (Rapid PCR) Not Detected (Not Detect.) 07/02/23 07:58 B.pert (TEM-PCR) Not Detected (Not Detect.) 07/02/23 07:58 B.parapertussis DNA PCR Not Detected (Not Detect.) 07/02/23 07:58 C. pneumoniae DNA (PCR) Not Detected (Not Detect.) 07/02/23 07:58 Coronavirus OC43 (PCR) Not Detected (Not Detect.) 07/02/23 07:58 Coronavirus HKU1 (PCR) Not Detected (Not Detect.) 07/02/23 07:58 Coronavirus 229E (PCR) Not Detected (Not Detect.) 07/02/23 07:58 Coronavirus NL63 (PCR) Not Detected (Not Detect.) 07/02/23 07:58 Human Metapneumovir PCR Not Detected (Not Detect.) 07/02/23 07:58 Influenza A (RT-PCR) Not Detected (Not Detect.) 07/02/23 07:58 Influenza B (RT-PCR) Not Detected (Not Detect.) 07/02/23 07:58 M. pneumoniae (PCR) Not Detected (Not Detect.) 07/02/23 07:58 Parainfluenza 1 (PCR) Not Detected (Not Detect.) 07/02/23 07:58 Parainfluenza 2 (PCR) Not Detected (Not Detect.) 07/02/23 07:58 Parainfluenza 3 (PCR) Not Detected (Not Detect.) 07/02/23 07:58 Parainfluenza 4 (PCR) Not Detected (Not Detect.) 07/02/23 07:58 RSV (PCR) Not Detected (Not Detect.) 07/02/23 07:58 Entero/Rhino (PCR) Not Detected (Not Detect.) 07/02/23 07:58 SARS-CoV-2 RNA (RT-PCR) Not Detected (Not Detect.) 07/02/23 07:58 Impressions Chest X-Ray 07/02/23 03:11 IMPRESSION: * No acute findings. * Multiple right-sided pleural masses redemonstrated without appreciable change from a radiographic standpoint. * Emphysema. Chest CT 07/02/23 14:27 IMPRESSION: Interval increase in size in the masslike densities in the right lower lobe and right upper lobe. There is a extrapleural extension of the lesion in the superior segment of the right lower lobe into the extrapleural fat. Stable right pleural thickening and calcification. Emphysema. Evidence of bronchiectasis and bronchial wall thickening/airways disease, greatest in the right upper and bilateral lower lobes. Fleischner guidelines were followed. Discharge Plan Discharge Anticipated Discharge Date/Time: 07/04/23 13:05 Patient Disposition: Home, Self-Care Discharge Diagnosis: pneumonia COPD exacerbation lungs cancer iron deficiency anemia Referrals: Luz Mccall NP [Primary Care Provider] - 1 Week Amaury Moran MD [Physician] - 2 Weeks Discharge Medications: New nicotine 14 mg/24 hr Patch 24 Hour 14 mg transdermal DAILY Qty: 28 0RF prednisone 10 mg tablet See Rx Instructions .ROUTE .COMPLEX Qty: 20 0RF Rx Instructions: 4 tabs daily for 2 days, then 3 tabs daily for 2 days, then 2 tabs daily for 2 days, then 1 tab daily for 2 days cefdinir 300 mg capsule 300 mg PO BID Qty: 14 0RF doxycycline monohydrate 100 mg tablet 100 mg PO BID Qty: 14 0RF ferrous sulfate 324 mg (65 mg iron) tablet,delayed release (DR/EC) 324 mg PO DAILY Qty: 30 0RF Continued metformin 500 mg tablet 500 mg PO DAILY Rx Instructions: take with food omeprazole 20 mg capsule,delayed release(DR/EC) 20 mg PO DAILY@0630 albuterol sulfate 90 mcg/actuation aerosol powdr breath activated 2 inh inhalation Q4-6H PRN (Reason: shortness of breath or wheezing) Qty: 1 0RF nabumetone 500 mg tablet 1 tab PO BID PRN (Reason: knee pain) oxycodone 5 mg tablet 5 mg PO BID PRN (Reason: Pain) mirtazapine 7.5 mg tablet 7.5 mg PO BEDTIME multivitamin with folic acid [Daily-Leslie (with folic acid)] 400 mcg tablet 1 tab PO DAILY Trelegy Ellipta 200-62.5-25 mcg blister with device 1 puff inhalation DAILY levothyroxine 88 mcg tablet 88 mcg PO DAILY@0600 topiramate 50 mg tablet 50 mg PO DAILY cholecalciferol (vitamin D3) 25 mcg (1,000 unit) tablet 25 mcg PO DAILY acetaminophen [Tylenol] 325 mg Tablet 650 mg PO Q6H PRN (Reason: Pain) ipratropium-albuterol 0.5 mg-3 mg(2.5 mg base)/3 mL solution for nebulization 3 ml inhalation QID PRN (Reason: wheezing) topiramate 50 mg tablet 100 mg PO BEDTIME pyridoxine (vitamin B6) 50 mg tablet 50 mg PO DAILY 90 Days Qty: 90 3RF theophylline 400 mg tablet extended release 24 hr 400 mg PO DAILY Qty: 30 6RF Discharge Orders: Discharge Order (Routine); Ordered 08/06/23 Ordered By: Mariann Lam Diet: Advance to usual diet Activity on Discharge: As tolerated Stand Alone Forms: Patient Portal Discharge page Care Plan Goals: lung health Health Concerns: pneumonia COPD exacerbation lung cancer iron deficiency anemia Plan of Treatment: cefdinir 300 mg twice daily for 7 days doxycycline 100 mg twice daily for 7 days prednisone 10 mg tabs as follows: 4 tabs daily for 2 days, then 3 tabs daily for 2 days, then 2 tabs daily for 2 days, then 1 tab daily for 2 days continue inhalers for COPD stop smoking; use nicotine patch to help take ferrous sulfate 324 mg once daily and eat iron-rich foods follow up with oncologist Dr Moran in 2 weeks Please follow up with your primary care doctor within 1 week. Return to the hospital if you experience recurrent or worsening symptoms. Assessment: See Discharge Summary.
--- NOTE | 2023-07-04 13:16 | MHC.CM.PN ---
pt lives with sister has own ride home has own ride home pt dcd today
[2023-07-08 06:54] LABS: Legionella Ag Urine Not Detected (Not Detected)
[2023-07-10 16:29] LABS: Strep Pneumo Ag urine Not Detected (Not Detected)
== END 2023-07-04 14:00 | disposition home or self-care (01) ==
LOC: HO.ED 05:12 → HO.EDOVER 05:38 → HO.S3 15:11
PROVIDERS: Admitting Provider Student in an Organized Health Care Education/Training Program; Emergency Provider Emergency Medicine; PCP Nurse Practitioner Family; Visit Provider Family Medicine
DX: J44.1 Chronic obstructive pulmonary disease with (acute) exacerbation (principal); J18.9 Pneumonia, unspecified organism; C34.90 Malignant neoplasm of unspecified part of unspecified bronchus or lung; D50.9 Iron deficiency anemia, unspecified; E11.9 Type 2 diabetes mellitus without complications; I10 Essential (primary) hypertension; F17.200 Nicotine dependence, unspecified, uncomplicated; Z79.899 Other long term (current) drug therapy; Z71.6 Tobacco abuse counseling
CPT/HCPCS: 36415; 71045; 71250; 80048; 82803; 82947; 83540; 83605; 84145; 84484; 85025; 85027; 85379; 87040; 87070; 87205; 87449; 87633; 87640; 87641; 87899; 93005; 94640; 96365; 96366; 96367; 96368; 96372; 96375; 96376; 99221; 99285; J0456; J0696; J1650; J2920; J2930; J3475

== ENCOUNTER → 2023-07-02 03:00 | Outpatient (BNV) | payer MEDICARE, MEDICAID, SELFPAY | PROVIDERS: Admitting Provider Student in an Organized Health Care Education/Training Program; Emergency Provider Emergency Medicine; PCP Nurse Practitioner Family; Visit Provider Internal Medicine | DX: I49.1 Atrial premature depolarization (principal) | CPT/HCPCS: 93010 ==

== ENCOUNTER → 2023-07-02 05:32 | Outpatient (BNV) | payer MEDICARE, MEDICAID, SELFPAY | PROVIDERS: Admitting Provider Student in an Organized Health Care Education/Training Program; Emergency Provider Emergency Medicine; PCP Nurse Practitioner Family; Visit Provider Student in an Organized Health Care Education/Training Program | DX: J44.1 Chronic obstructive pulmonary disease with (acute) exacerbation (principal); J18.9 Pneumonia, unspecified organism; C34.90 Malignant neoplasm of unspecified part of unspecified bronchus or lung; D50.9 Iron deficiency anemia, unspecified | CPT/HCPCS: 99222; 99232; 99239; 99499 ==

== ENCOUNTER 2023-07-05 11:04 | Outpatient (REF) | payer MEDICARE, MEDICAID, SELFPAY ==
[2023-07-05 14:52] VITALS: BMI 17.6
[2023-07-05 14:54] VITALS: BP 125/60; PULSE 84; RESP 16; TEMP 36.9; O2SAT 96
== END 2023-07-05 11:05 | disposition home or self-care (01) ==
LOC: HO.MS 11:04
PROVIDERS: PCP Nurse Practitioner Family; Visit Provider Ophthalmology
PROC: (CPT 66821; principal; 2023-07-05 12:40)
DX: H26.492 Other secondary cataract, left eye (principal)
CPT/HCPCS: 66821

== ENCOUNTER 2023-07-12 17:43 | Emergency (ER) | payer MEDICARE, MEDICAID, SELFPAY ==
--- NOTE | ~2023-07-12 | US_ITS ---
EXAMINATION: US ABDOMEN LIMITED CLINICAL INFORMATION: Right upper quadrant pain. COMPARISON: None available. TECHNIQUE: Real-time imaging of the right upper quadrant abdominal viscera. FINDINGS: PANCREAS: Obscured by bowel gas LIVER: The liver is normal in size. The liver contour is normal. Mild increased hepatic echotexture. No focal hepatic lesion. There is no intrahepatic biliary duct dilatation seen. GALLBLADDER: Normal. The gallbladder is physiologically distended without evidence of stones, sludge, polyps, wall thickening or pericholecystic fluid. COMMON BILE DUCT: Normal in caliber measuring 0.2 cm in diameter. RIGHT KIDNEY: Normal. No hydronephrosis. No renal calculi or focal parenchymal lesions. The kidney measures 10.3 cm in maximum dimension. FREE FLUID: None. US/US abdomen limited IMPRESSION: Mild diffuse fatty infiltration of the liver but no focal hepatic lesion or biliary ductal dilatation.
--- NOTE | ~2023-07-12 | XR_ITS ---
EXAMINATION: PORTABLE CHEST 1 VIEW CLINICAL INFORMATION: sob, rib pain. COMPARISON: 07/02/2023. TECHNIQUE: Portable frontal view of the chest was obtained. FINDINGS: Lungs are hypoexpanded. Masslike opacities and pulmonary nodules are again seen in the right chest better delineated on the intervening 07/02/2023 CT scan. Overall the appearance is similar to the prior chest x-ray. I do not appreciate any superimposed effusion or pneumothorax. Extensive emphysematous changes are again noted bilaterally with pleural-based calcifications on the right and a left lower lobe calcified granuloma again seen. Masslike opacities along the right heart border and right hilar region are seen right overall cardiac silhouette is otherwise within normal limits for size with vascular calcification in the tortuous aorta. I do not appreciate any acute superimposed bony abnormality. XR/XR chest 1V IMPRESSION: Extensive chronic appearing changes similar to the 07/02/2023 chest x-ray. I do not appreciate any acute superimposed airspace disease on these chronic changes.
[2023-07-12 17:59] VITALS: BP 121/89; PULSE 86; RESP 16; TEMP 36.9; O2SAT 95; BMI 17.6
--- NOTE | 2023-07-12 17:59 | ED_ITS ---
HPI - SOB/Dyspnea General Chief Complaint: Dyspnea Stated Complaint: sob,asthma Time Seen by Provider: 07/12/23 18:32 Source: patient and family Limitations: no limitations History of Present Illness HPI Narrative: 77-year-old male with history of COPD, lung cancer currently untreated presents with right upper quadrant abdominal pain. This is acute on chronic. Within the last 24-48 hours he has had significant increase in pain to where it is severe. The pain is constant. The pain does not radiate. It is not associated with nausea, vomiting, diarrhea. He has had no fever but has had chills. The pain is described as sharp and achy in nature. There is no clear relieving or exacerbating features. He has had some mild success with oral pain medications. Patient is currently not on chemotherapy although this was recommended for him. He decided not to take chemotherapy because he has a nephew that diet despite being on chemotherapy for the same type of cancer. Related Data Home Medications Medication Instructions Recorded Confirmed metformin 500 mg tablet 500 mg PO DAILY 09/28/20 07/02/23 omeprazole 20 mg capsule,delayed 20 mg PO DAILY@0630 12/01/20 07/02/23 release nabumetone 500 mg tablet 1 tab PO BID PRN knee pain 01/29/22 07/02/23 fluticasone fur. 200 mcg-umeclid 1 puff inhalation DAILY 08/28/22 07/02/23 62.5 mcg-vilant 25 mcg inhalat.powder (Trelegy Ellipta) multivitamin with folic acid 400 1 tab PO DAILY 08/28/22 07/02/23 mcg tablet (Daily-Leslie (with folic acid)) levothyroxine 88 mcg tablet 88 mcg PO DAILY@0600 06/17/23 07/02/23 acetaminophen 325 mg tablet 650 mg PO Q6H PRN Pain 06/18/23 07/02/23 (Tylenol) cholecalciferol (vitamin D3) 25 25 mcg PO DAILY 06/18/23 07/02/23 mcg (1,000 unit) tablet topiramate 50 mg tablet 50 mg PO DAILY 06/18/23 07/02/23 mirtazapine 7.5 mg tablet 7.5 mg PO BEDTIME 06/29/23 07/02/23 oxycodone 5 mg tablet 5 mg PO BID PRN Pain 06/29/23 07/02/23 ipratropium 0.5 mg-albuterol 3 mg 3 ml inhalation QID PRN wheezing 07/02/23 07/02/23 (2.5 mg base)/3 mL nebulization soln topiramate 50 mg tablet 100 mg PO BEDTIME 07/02/23 07/02/23 Previous Rx's Medication Instructions Recorded albuterol sulfate 90 mcg/actuation 2 inh inhalation Q4-6H PRN 12/01/22 breath activated powder inhaler shortness of breath or wheezing #1 ea theophylline 400 mg 400 mg PO DAILY #30 tabs 04/02/23 tablet,extended release 24 hr pyridoxine (vitamin B6) 50 mg 50 mg PO DAILY 90 days #90 tabs 04/22/23 tablet cefdinir 300 mg capsule 300 mg PO BID #14 caps 07/04/23 doxycycline monohydrate 100 mg 100 mg PO BID #14 tabs 07/04/23 tablet ferrous sulfate 324 mg (65 mg 324 mg PO DAILY #30 tabs 07/04/23 iron) tablet,delayed release nicotine 14 mg/24 hr daily 14 mg transdermal DAILY #28 ea 07/04/23 transdermal patch prednisone 10 mg tablet See Rx Instructions .Route 07/04/23 .COMPLEX #20 tabs fentanyl 25 mcg/hr transdermal 1 patch transdermal Q72H #2 ea 07/12/23 patch hydromorphone 2 mg tablet 2 mg PO Q8H PRN pain #7 tabs 07/12/23 (Dilaudid) Allergies Allergy/AdvReac Type Severity Reaction Status Date / Time shellfish derived Allergy Severe ANAPHYLAXIS Verified 06/29/23 10:27 [SHELLFISH DERIVED] pollen extracts [POLLEN] Allergy Intermediate RUNNING Verified 06/29/23 10:27 NOSE, WATERY EYES, SNEEZING varenicline [VARENICLINE] AdvReac Unknown PALPITATION Verified 06/29/23 10:27 S Review of Systems Review of Systems: CONSTITUTIONAL: Denies weight loss, fever and chills. HEENT: Denies changes in vision and hearing. RESPIRATORY: Denies SOB and cough. CV: Denies palpitations no CP. GI: + abdominal pain, no nausea, vomiting and diarrhea. : Denies dysuria and urinary frequency. MSK: Denies myalgia and joint pain. SKIN: Denies rash and pruritus. NEUROLOGICAL: Denies headache and syncope. PSYCHIATRIC: Denies recent changes in mood. Denies anxiety and depression. All other ROS are negative unless in HPI PMFSH Past Medical History Medical History Abnormal PET scan of colon Asthma Chronic respiratory failure COPD (chronic obstructive pulmonary disease) Diabetes GERD (gastroesophageal reflux disease) Hypertension Hypothyroidism Osteoarthritis Osteoporosis Oxygen dependent Sepsis Tobacco dependence Ureteral calculi Surgical History History of appendectomy History of cataract surgery (~2011) History of lithotripsy (~2008) History of lung biopsy (~2021) Family History Family History Father Throat cancer Brother Lung cancer Other Hypertension Social History Social History Household Members: Spouse Housing: Apartment Are you a primary progressive care unit registered nurse to a significant other at home: No Do you presently have visiting nurse or other home services: No Alcohol intake: former Patient Tobacco Use Status: Current everyday Tobacco user Tobacco use type: Cigarette Cigarette Packs Per Day: 0.5 Cigarettes Per Day: 7 Years Smoked: 60 Smoked in Last 30 Days: Yes e-Cigarette/Vaping Use: Currently Using Second Hand Smoke Exposure: No Use of substances other than those prescribed or required for medical reasons: No Advance Directives: No Advance Directives Information Provided: Yes Advance Directives Date on File: 12/18/20 service: No Current occupational status: unemployed and retired Physical Exam Vital Signs: Vital Signs: Last Vital Signs Temp 98.7 F 07/12/23 18:28 Pulse 97 07/12/23 19:58 Resp 18 07/12/23 19:58 BP 108/55 L 07/12/23 19:58 Pulse Ox 95 07/12/23 19:58 O2 Del Method Room Air 07/12/23 19:58 BMI result Body Mass Index 17.6 GEN: Cachectic, no acute distress, alert, oriented HEENT: Normocephalic, atraumatic, normal external ears, nose appears normal, no oropharyngeal edema or exudates Eyes: Normal to appearance Neck: Supple, no lymphadenopathy Respiratory: Talks in complete sentences, prolonged expiration, expiratory wheezes in left lung, crackles at the right lung base Cardiovascular: Regular rate and rhythm, no murmurs rubs or gallops Abdomen: Soft, right upper quadrant tenderness, no rebound or guarding Back: No CVA tenderness Extremities: No clubbing cyanosis or edema Neurologic: No focal neurologic deficits, cranial nerves 2-12 intact, strength is 5/5 bilaterally Skin: No rash Course Course Course Narrative: RME: 77-year-old male with a past medical history of anemia, asthma/COPD overlap syndrome, HLD, lung CA not on treatment, hypothyroid, diabetes, recently discharged from our facility for COPD/pneumonia on 07/04/23 presenting to the ED today complaining of SOB and right sided rib pain x days. Denies taking anticoagulation, recent fall/injury. Reports compliance with nebs Patient had CT on 07/02 which showed masslike densities in the right lower and upper lobes Patient tachypneic, appears uncomfortable, reproducible right sided rib tenderness elicited, diffuse expiratory wheeze EKG, Labs, lactic/blood cultures, CXR, DuoNeb ordered Charge nurse aware Full HPI, ROS and PE to be performed by primary ED provider. Reevaluation(s) Reevaluation #1: The workup is complete at this time. Is unclear what is causing his chronic right upper quadrant abdominal pain and exacerbation of that. I did discuss hospice care with the patient and his . Apparently he has refused hospice care in the past. I did discuss that they might be able to manage his pain better at home rather than coming to the hospital for re-evaluations. At this point I think patient would benefit from fentanyl patch plus intermittent Dilaudid to better control his pain. I would recommend Colace at the same time. Patient and family were comfortable with this plan. Time: 20:50 Medications Administered Discontinued Medications Generic Name Dose Route Start Last Admin Trade Name Freq PRN Reason Stop Dose Admin Albuterol Sulfate 7.5 mg/ 0 mg 07/12/23 18:02 07/12/23 18:24 Albuterol/Ipratropium 3 ml INHALE 07/12/23 18:03 2.5 each ONCE ONE Administration Medical Decision Making Medical Decision Making MDM Narrative: 77-year-old male presents with abdominal pain. The pain is in the right upper quadrant. Negative Pham sign. Has a history of an appendectomy. He does have guarding. At this point, concern would be for metastatic cancer versus biliary colic. Will provide patient with analgesia. Will obtain an ultrasound to rule out acute cholecystitis. Will obtain routine laboratory analysis. Patient also has expiratory wheezes, right lung crackles. Would get a chest x- ray to rule out pneumonia. However, recently patient was discharged with COPD exacerbation and pneumonia. Will provide patient with respiratory therapy. Differential Diagnosis Differential Diagnoses: The differential diagnosis associated with the presentation includes (See above) Admission/Observation Consideration of admission/observation: Escalation of care including admission/observation considered Lab Data MDM Lab Attestation statement: I reviewed the patient's lab results. 07/12/23 19:43 07/12/23 19:43 Labs: Lab Results 07/12/23 07/12/23 07/12/23 Range/Units 19:43 19:43 19:43 WBC 10.2 (4.8-10.8) X10*3/uL RBC 3.80 L (4.60-5.80) X10*6/uL Hgb 8.9 L (14.0-18.0) g/dl Hct 29.2 L (42.0-52.0) % MCV 76.8 L (80.0-98.0) fL MCH 23.4 L (27.0-33.0) pg MCHC 30.5 L (31.0-36.0) g/dl RDW 17.8 H (11.0-16.0) % Plt Count 423 H (160-400) X10*3/uL MPV 9.4 (9.4-12.4) fL Immature Gran % (Auto) 0.6 H (0.0-0.4) % Neut % (Auto) 78.0 H (45-73) % Lymph % (Auto) 11.7 L (20-40) % Glynn % (Auto) 6.1 (2-11) % Eos % (Auto) 3.1 (0-4) % Baso % (Auto) 0.5 (0-2) % Lymph # (Auto) 1.2 (1.2-4.9) X10*3/uL Glynn # (Auto) 0.6 (0.1-1.2) X10*3/uL Eos # (Auto) 0.3 (0.0-0.4) X10*3/uL Baso # (Auto) 0.1 (0.0-0.2) X10*3/uL Abs Immat Gran (auto) 0.06 H (0.00-0.03) X10*3/uL Absolute Neuts (auto) 8.0 (2.0-8.3) x10*3/uL Absolute Nucleated RBC 0.000 (0.0-0.012) X10*3/uL Nucleated RBC % (auto) 0.0 (0.0-0.2) /100WBC PT (11.1-13.3) SEC INR (0.9-1.1) Sodium 137 (135-145) mmol/L Potassium 3.7 (3.3-5.1) mmol/L Chloride 103 (96-108) mmol/L Carbon Dioxide 26 (22-29) mmol/L Anion Gap 12 (12-20) BUN 6 L (9-16) mg/dL Creatinine 0.77 (0.5-1.4) mg/dL Estim Creat Clear Calc 56.3 Estimated GFR > 60 Random Glucose 109 (60-115) mg/dL Lactic Acid (0.5-2.0) mmol/L Calcium 9.1 (8.4-10.2) mg/dL Magnesium 1.9 (1.6-2.6) mg/dL Total Bilirubin 0.5 (0.0-1.0) mg/dL Direct Bilirubin 0.1 (0.0-0.5) mg/dL AST 15 (5-37) U/L ALT 7 (0-40) U/L Alkaline Phosphatase 98 (39-117) U/L Troponin I High Sens < 2.7 (<3.5-35.0) ng/L B-Natriuretic Peptide (<100) pg/mL Total Protein 6.4 L (6.5-8.0) g/dL Albumin 3.3 L (3.5-5.0) g/dL Influenza Type A (PCR) (Negative) Influenza Type B (PCR) (Negative) RSV RNA Qual (PCR) (Negative) SARS-CoV-2 RNA (RT-PCR) (Negative) 07/12/23 07/12/23 07/12/23 Range/Units 19:43 19:43 19:43 WBC (4.8-10.8) X10*3/uL RBC (4.60-5.80) X10*6/uL Hgb (14.0-18.0) g/dl Hct (42.0-52.0) % MCV (80.0-98.0) fL MCH (27.0-33.0) pg MCHC (31.0-36.0) g/dl RDW (11.0-16.0) % Plt Count (160-400) X10*3/uL MPV (9.4-12.4) fL Immature Gran % (Auto) (0.0-0.4) % Neut % (Auto) (45-73) % Lymph % (Auto) (20-40) % Glynn % (Auto) (2-11) % Eos % (Auto) (0-4) % Baso % (Auto) (0-2) % Lymph # (Auto) (1.2-4.9) X10*3/uL Glynn # (Auto) (0.1-1.2) X10*3/uL Eos # (Auto) (0.0-0.4) X10*3/uL Baso # (Auto) (0.0-0.2) X10*3/uL Abs Immat Gran (auto) (0.00-0.03) X10*3/uL Absolute Neuts (auto) (2.0-8.3) x10*3/uL Absolute Nucleated RBC (0.0-0.012) X10*3/uL Nucleated RBC % (auto) (0.0-0.2) /100WBC PT 14.0 H (11.1-13.3) SEC INR 1.2 H (0.9-1.1) Sodium (135-145) mmol/L Potassium (3.3-5.1) mmol/L Chloride (96-108) mmol/L Carbon Dioxide (22-29) mmol/L Anion Gap (12-20) BUN (9-16) mg/dL Creatinine (0.5-1.4) mg/dL Estim Creat Clear Calc Estimated GFR Random Glucose (60-115) mg/dL Lactic Acid 0.8 (0.5-2.0) mmol/L Calcium (8.4-10.2) mg/dL Magnesium (1.6-2.6) mg/dL Total Bilirubin (0.0-1.0) mg/dL Direct Bilirubin (0.0-0.5) mg/dL AST (5-37) U/L ALT (0-40) U/L Alkaline Phosphatase (39-117) U/L Troponin I High Sens (<3.5-35.0) ng/L B-Natriuretic Peptide 16 (<100) pg/mL Total Protein (6.5-8.0) g/dL Albumin (3.5-5.0) g/dL Influenza Type A (PCR) (Negative) Influenza Type B (PCR) (Negative) RSV RNA Qual (PCR) (Negative) SARS-CoV-2 RNA (RT-PCR) (Negative) 07/12/23 Range/Units 19:43 WBC (4.8-10.8) X10*3/uL RBC (4.60-5.80) X10*6/uL Hgb (14.0-18.0) g/dl Hct (42.0-52.0) % MCV (80.0-98.0) fL MCH (27.0-33.0) pg MCHC (31.0-36.0) g/dl RDW (11.0-16.0) % Plt Count (160-400) X10*3/uL MPV (9.4-12.4) fL Immature Gran % (Auto) (0.0-0.4) % Neut % (Auto) (45-73) % Lymph % (Auto) (20-40) % Glynn % (Auto) (2-11) % Eos % (Auto) (0-4) % Baso % (Auto) (0-2) % Lymph # (Auto) (1.2-4.9) X10*3/uL Glynn # (Auto) (0.1-1.2) X10*3/uL Eos # (Auto) (0.0-0.4) X10*3/uL Baso # (Auto) (0.0-0.2) X10*3/uL Abs Immat Gran (auto) (0.00-0.03) X10*3/uL Absolute Neuts (auto) (2.0-8.3) x10*3/uL Absolute Nucleated RBC (0.0-0.012) X10*3/uL Nucleated RBC % (auto) (0.0-0.2) /100WBC PT (11.1-13.3) SEC INR (0.9-1.1) Sodium (135-145) mmol/L Potassium (3.3-5.1) mmol/L Chloride (96-108) mmol/L Carbon Dioxide (22-29) mmol/L Anion Gap (12-20) BUN (9-16) mg/dL Creatinine (0.5-1.4) mg/dL Estim Creat Clear Calc Estimated GFR Random Glucose (60-115) mg/dL Lactic Acid (0.5-2.0) mmol/L Calcium (8.4-10.2) mg/dL Magnesium (1.6-2.6) mg/dL Total Bilirubin (0.0-1.0) mg/dL Direct Bilirubin (0.0-0.5) mg/dL AST (5-37) U/L ALT (0-40) U/L Alkaline Phosphatase (39-117) U/L Troponin I High Sens (<3.5-35.0) ng/L B-Natriuretic Peptide (<100) pg/mL Total Protein (6.5-8.0) g/dL Albumin (3.5-5.0) g/dL Influenza Type A (PCR) NEGATIVE (Negative) Influenza Type B (PCR) NEGATIVE (Negative) RSV RNA Qual (PCR) NEGATIVE (Negative) SARS-CoV-2 RNA (RT-PCR) NEGATIVE (Negative) Independent Interpretation I performed an independent interpretation of an: EKG (Normal sinus rhythm heart rate 86, no acute ST elevations depressions, prominent T-waves. Prominent T- waves seen previously.), Plain X-Ray (Right-sided lung mass is visualized again. No acute cardiopulmonary disease.) and Ultrasound (Limited abdomen: No acute cholecystitis) Radiology Impression Discussion of test interpretation with radiology: I have reviewed the radiologist's reading. Radiologist Impression: US/US abdomen limited IMPRESSION: Mild diffuse fatty infiltration of the liver but no focal hepatic lesion or biliary ductal dilatation. ? Dictated By: Bebo Morris MD Signed By: <Electronically signed by Bebo Morris MD in OV> 07/12/232023 DD/ 58 TD/TT:? Performance Test Consultant: TITO Independent Historian Clinical information obtained from an independent historian. History obtained from or confirmed by: Spouse Tests considered The following testing was considered but not selected: CT abdomen Prescription Management I considered prescription management with: Pain Medication Chronic Conditions Patient?s care impacted by: Diabetes Discharge Plan Discharge Clinical Impression: Abdominal pain Patient Disposition: Home, Self-Care Instructions: Abdominal Pain (ED) Prescriptions: New fentanyl 25 mcg/hr patch 72 hour 1 patch transdermal Q72H Qty: 2 0RF Rx Instructions: Partial Fill upon patient request. hydromorphone [Dilaudid] 2 mg tablet 2 mg PO Q8H PRN (Reason: pain) Qty: 7 0RF Rx Instructions: Partial Fill upon patient request. No Action metformin 500 mg tablet 500 mg PO DAILY Rx Instructions: take with food omeprazole 20 mg capsule,delayed release(DR/EC) 20 mg PO DAILY@0630 albuterol sulfate 90 mcg/actuation aerosol powdr breath activated 2 inh inhalation Q4-6H PRN (Reason: shortness of breath or wheezing) Qty: 1 0RF nabumetone 500 mg tablet 1 tab PO BID PRN (Reason: knee pain) oxycodone 5 mg tablet 5 mg PO BID PRN (Reason: Pain) mirtazapine 7.5 mg tablet 7.5 mg PO BEDTIME multivitamin with folic acid [Daily-Leslie (with folic acid)] 400 mcg tablet 1 tab PO DAILY Trelegy Ellipta 200-62.5-25 mcg blister with device 1 puff inhalation DAILY levothyroxine 88 mcg tablet 88 mcg PO DAILY@0600 topiramate 50 mg tablet 50 mg PO DAILY cholecalciferol (vitamin D3) 25 mcg (1,000 unit) tablet 25 mcg PO DAILY acetaminophen [Tylenol] 325 mg Tablet 650 mg PO Q6H PRN (Reason: Pain) ipratropium-albuterol 0.5 mg-3 mg(2.5 mg base)/3 mL solution for nebulization 3 ml inhalation QID PRN (Reason: wheezing) topiramate 50 mg tablet 100 mg PO BEDTIME nicotine 14 mg/24 hr Patch 24 Hour 14 mg transdermal DAILY Qty: 28 0RF prednisone 10 mg tablet See Rx Instructions .ROUTE .COMPLEX Qty: 20 0RF Rx Instructions: 4 tabs daily for 2 days, then 3 tabs daily for 2 days, then 2 tabs daily for 2 days, then 1 tab daily for 2 days cefdinir 300 mg capsule 300 mg PO BID Qty: 14 0RF doxycycline monohydrate 100 mg tablet 100 mg PO BID Qty: 14 0RF ferrous sulfate 324 mg (65 mg iron) tablet,delayed release (DR/EC) 324 mg PO DAILY Qty: 30 0RF pyridoxine (vitamin B6) 50 mg tablet 50 mg PO DAILY 90 Days Qty: 90 3RF theophylline 400 mg tablet extended release 24 hr 400 mg PO DAILY Qty: 30 6RF Referrals: Amaury Moran MD [Physician] - 3 days
--- NOTE | 2023-07-12 18:01 | ECG_ITS ---
Test Reason : SOB Blood Pressure : / mmHG Vent. Rate : 086 BPM Atrial Rate : 086 BPM P-R Int : 118 ms QRS Dur : 080 ms QT Int : 314 ms P-R-T Axes : 075 061 073 degrees QTc Int : 375 ms Sinus rhythm with Premature atrial complexes Otherwise normal ECG When compared with ECG of 02-JUL-2023 03:01, Heart rate has decreased Referred By: Adriana Fonseca Electronically Signed By:YVROSE DOS SANTOS
[2023-07-12 18:24] VITALS: PULSE 82; RESP 16; O2SAT 100
[2023-07-12] MEDS: Albuterol Sulfate 7.5 MG, Albuterol/Iprat 2.5/0.5MG 3 ML 3 ML INHALE (18:24)
[2023-07-12 18:28] VITALS: BP 131/43; PULSE 87; RESP 25; TEMP 37.1; O2SAT 96
[2023-07-12 19:49] LABS: MANUAL DIFF FLAG NO
[2023-07-12 19:51] LABS: Basophils Absolute Auto 0.1 X10*3/uL (0.0-0.2); Basophils Percent Auto 0.5 % (0-2); Eosinophils Absolute Auto 0.3 X10*3/uL (0.0-0.4); Eosinophils Percent Auto 3.1 % (0-4); Hematocrit 29.2 % (42.0-52.0); Hemoglobin 8.9 g/dl (14.0-18.0); Imm Gran Abs Auto 0.06 X10*3/uL (0.00-0.03); Imm Gran Pct Auto 0.6 % (0.0-0.4); Lymphocytes Absolute Auto 1.2 X10*3/uL (1.2-4.9); Lymphocytes Percent Auto 11.7 % (20-40); Mean Corpuscular HGB Conc 30.5 g/dl (31.0-36.0); Mean Corpuscular Hemoglobin 23.4 pg (27.0-33.0); Mean Corpuscular Volume 76.8 fL (80.0-98.0); Mean Platelet Volume 9.4 fL (9.4-12.4); Monocytes Absolute Auto 0.6 X10*3/uL (0.1-1.2); Monocytes Percent Auto 6.1 % (2-11); Platelet Count 423 X10*3/uL (160-400); Red Cell Distribution Width 17.8 % (11.0-16.0); White Blood Count 10.2 X10*3/uL (4.8-10.8)
[2023-07-12 19:58] VITALS: BP 108/55; PULSE 97; RESP 18; O2SAT 95
[2023-07-12 20:07] LABS: Lactic Acid 0.8 mmol/L (0.5-2.0)
[2023-07-12 20:08] LABS: INTERNATIONAL NORM RATIO 1.2 (0.9-1.1)
[2023-07-12 20:12] LABS: Alanine Aminotransferase 7 U/L (0-40); Albumin Level 3.3 g/dL (3.5-5.0); Alkaline Phosphatase 98 U/L (39-117); Anion Gap 12 (12-20); Aspartate Amino Transferase 15 U/L (5-37); Bilirubin Direct 0.1 mg/dL (0.0-0.5); Bilirubin Total 0.5 mg/dL (0.0-1.0); Blood Urea Nitrogen 6 mg/dL (9-16); Calcium 9.1 mg/dL (8.4-10.2); Carbon Dioxide 26 mmol/L (22-29); Chloride 103 mmol/L (96-108); Creatinine Clr Calc Pharmacy 56.3; Estimated Glomerular Filt Rate > 60; Glucose Random 109 mg/dL (60-115); Magnesium 1.9 mg/dL (1.6-2.6); Potassium 3.7 mmol/L (3.3-5.1); Sodium 137 mmol/L (135-145); Total Protein 6.4 g/dL (6.5-8.0)
[2023-07-12 20:17] LABS: B Type Natriuretic Peptide 16 pg/mL (<100)
[2023-07-12 20:23] LABS: Troponin-I High Sensitivity < 2.7 ng/L (<3.5-35.0)
[2023-07-12 20:30] LABS: Influenza A PCR NEGATIVE (Negative); Influenza B PCR NEGATIVE (Negative); Resp Syncy Virus RNA Qual PCR NEGATIVE (Negative); SARS COV2 PCR INHOUSE NEGATIVE (Negative)
[2023-07-12] MEDS: HYDROmorphone HCl 2 MG TABLET PO (20:57)
[2023-07-12] MEDS: fentaNYL 50 MCG PATCH.TD72 TRANSDERMA (20:57)
[2023-07-12 21:04] VITALS: BP 125/51; PULSE 97; RESP 20; O2SAT 99
== END 2023-07-12 21:23 | disposition home or self-care (01) ==
PROVIDERS: Physician Assistant; Emergency Provider Emergency Medicine
DX: R10.11 Right upper quadrant pain (principal); R06.02 Shortness of breath; Z20.822 Contact with and (suspected) exposure to COVID-19; Z20.828 Contact with and (suspected) exposure to other viral communicable diseases; C34.90 Malignant neoplasm of unspecified part of unspecified bronchus or lung; E11.9 Type 2 diabetes mellitus without complications; I10 Essential (primary) hypertension; F17.210 Nicotine dependence, cigarettes, uncomplicated; J96.10 Chronic respiratory failure, unspecified whether with hypoxia or hypercapnia; Z99.81 Dependence on supplemental oxygen; J44.9 Chronic obstructive pulmonary disease, unspecified; Z79.899 Other long term (current) drug therapy; Z79.84 Long term (current) use of oral hypoglycemic drugs
CPT/HCPCS: 0241U; 36415; 71045; 76705; 80048; 80076; 83605; 83735; 83880; 84484; 85025; 85610; 87040; 93005; 94640; 99284; 99285

== ENCOUNTER 2023-07-28 14:25 | Outpatient (REF) | payer MEDICARE, MEDICAID, SELFPAY ==
--- NOTE | ~2023-07-28 | CT_ITS ---
EXAMINATION: CT CHEST WITH CONTRAST CLINICAL INFORMATION: 77-year-old male with lung cancer, follow-up COMPARISON: 07/02/2023 TECHNIQUE: Multidetector volumetric CT imaging of the chest was obtained after the administration of 65 mL of Omnipaque 350 intravenous contrast without immediate adverse reactions. Axial MIP volume rendering provided. Sagittal and coronal reformatted images were obtained. This CT examination was performed using dose optimization techniques as appropriate, variously including the following: *Automated exposure control *Adjustment of mA and/or kV according to patient size (this includes techniques or standardized protocols for targeted exams where dose is matched to indication/reason for exam; i.e. extremities or head) *Use of iterative reconstruction technique DLP: 66 mGy-cm FINDINGS: INSURANCE RISK MANAGER: Unremarkable LUNGS: There are changes of centrilobular emphysema. There is growing heterogeneous, lobulated, irregular mass in the right lower lobe measured approximately 5.4 x 5.5 x 5.2 cm invading the chest wall with pleural thickening and an nodular mass in the right lower lobe, extending from azygoesophageal recess, and is inseparable from the pericardium of right atrium, measures now 8.1 x 7.7 x 6.8 cm, associated with pleural thickening as well. There is subpleural right upper lobe lobulated mass measured 3.2 x 2.9 x 3.0 cm, inseparable from the chest wall also. Smaller sized calcified nodule are seen along the right apex. Left lung revealed calcified left lower lobe granuloma. MEDIASTINUM: There is mediastinal lymphadenopathy with precarinal lymph node measured 1.4 cm, and there is no hilar lymphadenopathy seen. PLEURA: There is pleural thickening along the described masses on the right. Pleural-based calcifications present most likely due to asbestos exposure. AXILLA: No lymphadenopathy. UPPER ABDOMEN: Unremarkable OSSEOUS STRUCTURES: Unremarkable. CT/CT chest w IV con IMPRESSION: 1. Manifestations of lung cancer with growing masses in the right lower lobe and right upper lobe. 2. Mediastinal lymphadenopathy. 3. Calcified granuloma in the left lower lobe and calcified granuloma in the right upper lobe. 4. 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 Fleischner guidelines were followed.
[2023-07-28] MEDS: iohexoL 350 MG/ML 100 ML INFUS..BTL IV (15:59)
== END 2023-07-28 14:26 | disposition home or self-care (01) ==
LOC: HO.CT 14:25
PROVIDERS: Visit Provider Internal Medicine Medical Oncology
DX: C34.90 Malignant neoplasm of unspecified part of unspecified bronchus or lung (principal)
CPT/HCPCS: 71260; Q9967

== ENCOUNTER 2023-08-12 | Outpatient (REF) | payer MEDICARE, MEDICAID, SELFPAY | END 2023-08-12 00:01 | disposition home or self-care (01) | LOC: CF | PROVIDERS: Visit Provider Internal Medicine Pulmonary Disease | DX: J44.9 Chronic obstructive pulmonary disease, unspecified (principal); C34.90 Malignant neoplasm of unspecified part of unspecified bronchus or lung | CPT/HCPCS: 99212 ==

== ENCOUNTER 2023-08-12 13:38 | Outpatient (AMB) | payer MEDICARE, MEDICAID, SELFPAY ==
--- NOTE | 2023-08-12 13:39 | MHC.OFFVIS ---
Intake Vital Signs 08/12/23 13:40 Height 5 ft 5 in Weight 98 lb 1.691 oz BMI 16.3 BP 110/58 L Blood Pressure Location Rt brachial Position Sitting Pulse 83 Pulse Source Doppler Pulse Oximetry (%) 94 Oxygen Delivery Method Room Air Intake Visit Reasons: copd Allergies shellfish derived [SHELLFISH DERIVED] Allergy (Severe, Verified 08/12/23 13:44) ANAPHYLAXIS pollen extracts [POLLEN] Allergy (Intermediate, Verified 08/12/23 13:44) RUNNING NOSE, WATERY EYES, SNEEZING varenicline [VARENICLINE] Adverse Reaction (Unknown, Verified 08/12/23 13:44) PALPITATIONS HPI copd HPI Details 77-year-old gentleman, active 50+ pack-year smoker, followed for pulmonary nodules and severe COPD with multiple exacerbations essentially on maximum medical therapy. ? He continues to use Trelegy, duo nebs, and prednisone 20 mg daily.? His right basilar nodule was positive for non-small cell lung cancer.? Patient is not a surgical candidate and he was evaluated by Radiation Oncology, however he does not want to proceed with radiation or any other treatments for his underlying cancer, understanding that it will result in his earlier .? Patient recently had an acute exacerbation requiring brief hospitalization at [facility], now with symptoms at baseline. [facility] Medical History Abnormal PET scan of colon Asthma Chronic respiratory failure COPD (chronic obstructive pulmonary disease) Diabetes GERD (gastroesophageal reflux disease) Hypertension Hypothyroidism Osteoarthritis Osteoporosis Oxygen dependent Sepsis Tobacco dependence Ureteral calculi Surgical History History of appendectomy History of cataract surgery (~2011) History of lithotripsy (~2008) History of lung biopsy (~2021) Family History Father Throat cancer Brother Lung cancer Other Hypertension Social History Household Members: Spouse Housing: Apartment Are you a primary behavioral health care coordinator to a significant other at home: No Do you presently have visiting nurse or other home services: No Alcohol intake: former Patient Tobacco Use Status: Current everyday Tobacco user Tobacco use type: Cigarette Cigarette Packs Per Day: 0.5 Cigarettes Per Day: 7 Years Smoked: 60 e-Cigarette/Vaping Use: Currently Using Second Hand Smoke Exposure: No Advance Directives Date on File: 12/18/20 service: No Current occupational status: unemployed and retired Review of Systems Const Denies daytime sleepiness, Denies excessive sweating, Denies fatigue, Denies fever(s), Denies lethargy, Denies malaise, Denies night sweats, Denies snoring and Reports weight loss Eyes Denies blurry vision and Denies itchy eyes ENT Denies nasal congestion, Denies post nasal drip, Denies sinus pain, Denies sinus pressure and Denies other ( Thrush) Card Denies chest pain, Denies pedal edema, Denies dyspnea, Denies orthopnea and Denies paroxysmal nocturnal dyspnea Resp Denies cough, Denies hemoptysis, Denies excessive phlegm production, Denies dyspnea, Denies snoring and Reports wheezing GI Denies abdominal pain and Denies heartburn Musc Denies myalgias, Denies arthralgias and Denies joint swelling Skin/Breast Denies rash Neuro Denies memory loss and Denies seizure-like activity Psych Denies abnormal sleep pattern, Denies anxiety and Denies memory loss Endo Denies excessive sweating, Denies fatigue and Denies heat intolerance Rei/Lymph Denies easy bruising Aller/Immun Denies itchy eyes, Denies seasonal rhinorrhea and Reports wheezing Physical Exam Vital Signs: Last Vital Signs Pulse 83 08/12/23 13:40 BP 110/58 L 08/12/23 13:40 Pulse Ox 94 08/12/23 13:40 Oxygen Delivery Method Room Air 08/12/23 13:40 BMI result Body Mass Index 16.3 Const General: no acute distress and alert Nutritional Appearance: not obese Orientation/consciousness: Other orientation findings ( oriented) HEENT Head: Yes atraumatic Eyes General: appearance normal, both eyes and all related structures Sclerae: sclerae normal EOM: EOMs intact bilaterally Neck Neck: Yes supple Lymphatic: no lymphadenopathy noted Resp Effort & Inspection: normal respiratory effort and no use of accessory muscles Auscultation: wheezes expiratory wheezes (Mild bilateral) Cardio Rate: regular rate Rhythm: regular rhythm Heart sounds: no gallops, no murmurs and no rubs Skin General skin exam: other ( warm) Extrem General: No clubbing, No cyanosis and No edema Assessment & Plan Assessment & Plan (1) COPD (chronic obstructive pulmonary disease): Code(s): J44.9 - Chronic obstructive pulmonary disease, unspecified Plan: Underlying severe COPD on maximum medical therapy with Trelegy, duo nebs, theophylline 400, and prednisone 20 mg daily. Continue current regimen. (2) Lung cancer: Onset Date: ~2021 Code(s): C34.90 - Malignant neoplasm of unspecified part of unspecified bronchus or lung Plan: Underlying non-small lung cancer, increasing on imaging follow-up. Patient continues to be not interested in any therapeutic modalities. Coding Level of Care Code Est Pt Level 4 (06530) Diagnoses COPD (chronic obstructive pulmonary disease) J44.9 Lung cancer C34.90
[2023-08-12 13:40] VITALS: BP 110/58; PULSE 83; O2SAT 94; BMI 16.3
== END 2023-08-12 13:55 | disposition home or self-care (01) ==
PROVIDERS: Visit Provider Internal Medicine Pulmonary Disease
DX: J44.9 Chronic obstructive pulmonary disease, unspecified (principal); C34.90 Malignant neoplasm of unspecified part of unspecified bronchus or lung
CPT/HCPCS: 99214

== ENCOUNTER 2023-08-14 16:50 | Observation (INO) | payer MEDICARE, MEDICAID, SELFPAY ==
--- NOTE | ~2023-08-14 | CT_ITS ---
EXAMINATION: CT ANGIOGRAM OF THE CHEST WITH AND WITHOUT CONTRAST (CT PULMONARY ANGIOGRAM FOR PE) CLINICAL INFORMATION: Reason for Exam sob COMPARISON: Multiple prior studies most recently CT chest 07/28/2023 TECHNIQUE: Prior to contrast administration, noncontrast localization images were obtained. Subsequently, multidetector volumetric imaging was performed from the thoracic inlet to below the diaphragms following the administration of 65 mL Omnipaque 350 intravenous contrast. No contrast reaction reported Sagittal, coronal, and MIP oblique sagittal reformatted images were obtained on the CT workstation, uploaded to PACS, and reviewed. This CT examination was performed using dose optimization techniques as appropriate, variously including the following: *Automated exposure control *Adjustment of mA and/or kV according to patient size (this includes techniques or standardized protocols for targeted exams where dose is matched to indication/reason for exam; i.e. extremities or head) *Use of iterative reconstruction technique Total exam dose-length product 226 mGy-cm FINDINGS: QUALITY OF STUDY/CONTRAST BOLUS: Satisfactory. PULMONARY ARTERIES: No pulmonary emboli. THORACIC AORTA: No aneurysm. LUNG: There are underlying changes of emphysema Extensive calcified pleural plaques are present on the right. A large calcified granuloma is present in the left lower lobe. Again seen is a large right infrahilar mass which abuts the middle mediastinum. This appears similar in size to prior measuring about 8.9 x 5.8 cm in maximal transverse dimension (6:356 compare prior 3:4 4). There is a second lobular mass present posteriorly abutting the chest wall also grossly unchanged when compared to the prior study measuring about 4.9 x 4.1 cm (6:223). This may actually represent a smaller lobular mass abutting an area of thickened pleura. A third lobular mass is present laterally appears unchanged measuring about 1.4 cm in thickness (6:238). No other lung masses are seen. PLEURA: No significant pleural effusion or pneumothorax. MEDIASTINUM: Normal heart size. No pericardial effusion. There are some stable small mediastinal lymph nodes present the largest is right precarinal measuring 1.2 cm with a fatty mendoaz. No hilar or mediastinal lymphadenopathy. No evidence of septal bowing or right heart strain. CORONARY ARTERY CALCIFICATION: None visualized on this study. CHEST WALL/AXILLA: No axillary or internal mammary lymphadenopathy. OSSEOUS STRUCTURES: No acute or suspicious osseous abnormality. UPPER ABDOMEN: Unremarkable. No reflux of contrast into the hepatic veins to suggest elevated right heart pressures. CT/CT angio chest PE protocol IMPRESSION: 1. No evidence of pulmonary emboli. 2. Large right-sided lung masses as described above highly suggestive of neoplasm. 3. Underlying changes of emphysema. VTE: negative.
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
--- NOTE | 2023-08-14 16:53 | ECG_ITS ---
Test Reason : CHEST PAIN/BACK PAIN Blood Pressure : / mmHG Vent. Rate : 093 BPM Atrial Rate : 093 BPM P-R Int : 116 ms QRS Dur : 072 ms QT Int : 314 ms P-R-T Axes : 079 065 072 degrees QTc Int : 390 ms Sinus rhythm with Premature atrial complexes Otherwise normal ECG When compared with ECG of 12-JUL-2023 18:15, No significant change was found Referred By: Jovana Mcclellan Electronically Signed By:YVROSE DOS SANTOS
[2023-08-14 17:42] VITALS: BP 104/52; PULSE 89; RESP 17; TEMP 36.9; O2SAT 93; BMI 16.3
[2023-08-14 18:09] LABS: MANUAL DIFF FLAG NO
[2023-08-14 18:22] LABS: Basophils Absolute Auto 0.1 X10*3/uL (0.0-0.2); Basophils Percent Auto 0.5 % (0-2); Eosinophils Absolute Auto 0.5 X10*3/uL (0.0-0.4); Eosinophils Percent Auto 4.4 % (0-4); Hematocrit 32.7 % (42.0-52.0); Hemoglobin 9.8 g/dl (14.0-18.0); Imm Gran Abs Auto 0.05 X10*3/uL (0.00-0.03); Imm Gran Pct Auto 0.4 % (0.0-0.4); Lymphocytes Absolute Auto 1.2 X10*3/uL (1.2-4.9); Lymphocytes Percent Auto 10.4 % (20-40); Mean Corpuscular Volume 76.6 fL (80.0-98.0); Mean Platelet Volume 9.5 fL (9.4-12.4); Monocytes Absolute Auto 0.7 X10*3/uL (0.1-1.2); Monocytes Percent Auto 6.3 % (2-11); Platelet Count 617 X10*3/uL (160-400); Red Blood Count 4.27 X10*6/uL (4.60-5.80); Red Cell Distribution Width 16.2 % (11.0-16.0); White Blood Count 11.6 X10*3/uL (4.8-10.8)
[2023-08-14 18:26] LABS: Alanine Aminotransferase 7 U/L (0-40); Albumin Level 3.5 g/dL (3.5-5.0); Alkaline Phosphatase 106 U/L (39-117); Anion Gap 14 (12-20); Aspartate Amino Transferase 22 U/L (5-37); Bilirubin Direct 0.1 mg/dL (0.0-0.5); Bilirubin Total 0.3 mg/dL (0.0-1.0); Blood Urea Nitrogen 6 mg/dL (9-16); Carbon Dioxide 26 mmol/L (22-29); Chloride 103 mmol/L (96-108); Creatinine Clr Calc Pharmacy 57.3; Estimated Glomerular Filt Rate > 60; Glucose Random 107 mg/dL (60-115); Lipase 10 U/L (8-78); Potassium 4.5 mmol/L (3.3-5.1); Sodium 138 mmol/L (135-145)
[2023-08-14 18:27] LABS: COVID-19 Test Negative (Negative); IDNOW Serial# 6674DD1D
[2023-08-14 18:33] LABS: IDNOW Serial# 08D9AD1C; Influenza A Negative (Negative); Influenza B2 Negative (Negative)
[2023-08-14 18:33] LABS: Troponin-I High Sensitivity < 2.7 ng/L (<3.5-35.0)
--- OUTSIDE RECORDS SUMMARY | 2023-08-14 20:05 | XMS_ITS | Continuity of Care Document ---
Author Name Unknown Organization [facility] Address [address] [place] [address]- Care Team Providers Care Esthetician Permanent Makeup Artist Name Role Phone Cal PRADO, Luz Simeon Primary Care Physician [phone] [facility]counter [facility] Date[facility]s): 05/12/23 - 06/11/23 [facility] [address] [place] [id number]- Allergies, Adverse Reactions, Alerts Substance Reaction Severity Status doxycycline dizziness Active cephalexin rash Active gabapentin altered mental state Active Proventil HFA Nausea Active varenicline C/O: itching Nausea Insomnia Active Nicotine Patch 1 Bronchospasm Nausea Dizzy Active traMADol Active 1see general med office note 4-3-09; pt reports bronchospasm/shortness of breath & palpitations within 5 minutes of putting on 14 patch that immediately went away after taking off patch Immunizations Given and Recorded Vaccine Date Status Refusal Reason [id number] 12y+ bivalent booster vax 11/17/22 Given [id number] 12y+ bivalent booster vax 10/16/22 Given influenza virus vaccine, inactivated 08/29/22 Ben rded influenza virus vaccine, inactivated 09/25/21 Give n influenza virus vaccine, inactivated 09/26/20 Give n influenza virus vaccine, inactivated 10/18/18 Give n influenza virus vaccine, inactivated 1 09/24/17 Gi susie influenza virus vaccine, inactivated 08/28/15 Ben rded influenza virus vaccine, inactivated 09/18/14 Give n influenza virus vaccine, inactivated 08/18/13 Give n influenza virus vaccine, inactivated 12/27/12 Ben rded influenza virus vaccine, inactivated 2 07/18/12 Gi susie influenza virus vaccine, inactivated 3 08/27/11 Gi susie influenza virus vaccine, inactivated 4 08/29/10 Gi susie SARS-CoV-2 (COVID-19) mRNA BNT-162b2 vac 10/29/21 Given SARS-CoV-2 (COVID-19) mRNA BNT-162b2 vac 02/03/21 Given SARS-CoV-2 (COVID-19) mRNA BNT-162b2 vac 01/13/21 Given tetanus/diphtheria/pertussis, acel(Tdap) 07/09/20 Recorded pneumococcal 23-valent vaccine 10/22/19 Recorded tetanus-diphtheria toxoids (Td) 04/21/18 Given tetanus-diphtheria toxoids (Td) 06/22/13 Recorded pneumococcal 13-valent vaccine 5 04/02/16 Given Zoster Vaccine Live 09/19/13 Given influ virus vac, H1N1, inactive(oldterm) 6 10/14/09 Given FluLaval (oldterm) 7 08/21/09 Given Influenza Vaccine (oldterm) 8 01/01/09 Given Tet/Diphth/Acel, Pertussis (oldterm) 9 04/24/08 Gi susie Influenza Virus Vaccine (oldterm) 10 09/15/07 Give n Influenza Virus Vaccine (oldterm) 11 10/08/06 Give n Pneumococcal Vaccine (oldterm) 12 10/08/06 Given 1Result Comment: [09/24/2017] [facility] 15434-892-84 2Admin Note: VIS 7- 3Admin Note: VIS given 06/23/11, venezuelan form 4Admin Note: VIS GIVEN 07/08/10 venezuelan 5Result Comment: [04/02/2016] VIS in Turkish given 6Admin Note: sep 06 7Admin Note: vis given in Turkish 8Admin Note: VIS given in Turkish 9Admin Note: VIS IN [place] 10Admin Note: VIS in venezuelan 11Admin Note: VIS-GIVEN 12Admin Note: VIS-GIVEN Medications 3cc syringe and needle, 25 G x1 3cc syringe and needle, 25 G x1 , See Instructions, # 6 each, Refills 2, Tot. Refills 2, Maintenance, used to withdraw and inject testosterone, 01/08/23 9:09:00 EST, Supply, 158.3, cm, 01/07/23 13:42:00 EST, Height Start Date: 01/08/23 Status: Ordered albuterol CFC free 90 mcg/inh inhalation aerosol 1, puffs, Inhalation, 4 times a day, PRN, dx: J45.909, # 1 each, Refills 11, Tot. Refills 11, Maintenance, 03/15/23 9:26:00 EDT, Aerosol, Route to Pharmacy Electronically, [id number], [facility]/pharmacy #[id number], 158.3, cm, 03/15/23 9... Start Date: 03/15/23 Status: Ordered albuterol-ipratropium 3 mg-0.5 mg/3 ml inhalation solution 1 vials, Inhalation, 4 times a day, Dx: COPD J44.9, Asthma J45.998, Lung Cancer C34.00 Sig: use every 6hr as needed for cough, SOB, wheezing, # 100 each, 11 Refills, 10/16/22 16:16:00 EST, [facility]/pharmacy #[id number], 1 vials Inhalation 4 times a day,Instr:Dx... Start Date: 10/16/22 Status: Ordered Alcohol Wipes See Instructions, # 100 each, Refills 5, Tot. Refills 5, Maintenance, use as directed prior to checking blood sugar 2 x daily Dx: E11.9, 07/28/22 12:53:00 EDT, Supply, 160, cm, 06/11/22 14:31:00 EDT,Height Start Date: 07/28/22 Status: Ordered calcium (as citrate)-vitamin D 315 mg-250 intl units oral tablet 1 tablet, By Mouth, 2 times a day, # 180 tablet, 6 Refills, Maintenance, 01/08/23 10:53:00 EST, Tablet, [facility]/pharmacy #[id number], Partial fill upon patient request if the prescription is for a schedule II opioid drug., 1 tablet By Mouth 2 times a day, 158.3... Start Date: 01/08/23 Status: Ordered Daily Leslie oral tablet See Instructions, TOME NAZ TABLETA TODOS LOS BENITEZ (NONFORMULARY), # 90 tablet, 1 Refills, Maintenance, 01/27/23 14:13:00 EST, [facility] STORE [id number], 90, TOME NAZ TABLETA TODOS LOS BENITEZ (NONFORMULARY), 158.3, cm, 01/07/23 13:42:00 EST, Height Start Date: 3/1/23 Status: Ordered duloxetine 30 mg oral enteric coated capsule See Instructions, TOME NAZ CAPSULA POR VIA ORAL TODOS LOS BENITEZ DON'T CRUSH OR CHEW NEEDED FOR PAIN, # 90 capsule, 1 Refills, [id number], 160, cm, 06/11/22 14:31:00 EDT, Height Start Date: 07/06/22 Status: Ordered Freestyle Lite Monitor See Instructions, # 1 each, Refills 0, Tot. Refills 0, Maintenance, monitor blood glucose 1-2 x daily for management of DM2 Dx: E11.9 Duration: lifetime, 09/25/22 12:53:00 EDT, Supply, 160, cm, 08/27/22 14:20:00 EDT, Height Start Date: 09/25/22 Status: Ordered FREESTYLE LITE TEST STRIP FREESTYLE LITE TEST STRIP, See Instructions, # 100 Unknown, 10 Refills, USE TO CHECK BLOOD GLUCOSE 2 TIMES A DAY, 160, cm, 04/29/22 11:20:00 EDT, Height Start Date: 05/27/22 Status: Ordered levothyroxine 0.088 mg oral tablet 1 tablet = 88 mcg, By Mouth, Daily, # 90 tablet, 1 Refills, Maintenance, 03/16/23 12:53:00 EDT, Tablet, [id number], Partial fill upon patient request if the prescription is for a schedule II opioid drug. Dose reduction February 2023, 158.3, cm, 0... Start Date: 03/16/23 Status: Ordered lidocaine 5% topical cream 1 application, Topically, 3 times a day, PRN Pain , Mild, # 45 Gm, 11 Refills, Maintenance, 05/12/23 16:31:00 EDT, Cream, [id number], Partial fill upon patient request if the prescription is for a schedule II opioid drug., 1 application Topica... Start Date: 05/12/23 Status: Ordered metFORMIN 500 mg oral tablet See Instructions, TOME NAZ TABLETA POR VIA ORAL TODOS LOS BENITEZ CON LAS COMIDAS, # 90 tablet, 1 Refills, Maintenance, 01/27/23 14:13:00 EST, [facility], 158.3, cm, 01/07/23 13:42:00 EST, Height Start Date: 01/27/23 Status: Ordered mirtazapine 7.5 mg oral tablet See Instructions, TOME NAZ TABLETA POR VIA ORAL AL ACOSTARSE, # 90 tablet, 3 Refills, [facility], 160, cm, 04/29/22 11:20:00 EDT, Height Start Date: 05/27/22 Status: Ordered montelukast 10 mg oral tablet See Instructions, TOME NAZ TABLETA POR VIA ORAL CADA NOCHE, # 90 tablet, Refills 3, Maintenance, 08/05/22 11:49:00 EDT, Instructions Replace Required Details, Route to Pharmacy Electronically, [id number], 160, cm, 06/11/22 14:31:00 EDT, Height Start Date: 08/05/22 Status: Ordered nabumetone 500 mg oral tablet See Instructions, TOME NAZ TABLETA POR VIA ORAL DOS VECES AL YALE CUANDO SEA NECESARIO POR DOLOR, # 60 tablet, 1 Refills, Maintenance, 03/15/23 9:30:00 EDT, [facility]/pharmacy #[id number], 158.3, cm, 03/15/23 9:09:00 EDT, Height Start Date: 03/15/23 Status: Ordered Nebulizer tubing and mask Nebulizer tubing and mask, See Instructions, # 2 each, Refills 3, Tot. Refills 3, Maintenance, Use as directed for management of COPD Dx:44.9 45.909 Duration: Lifetime., 09/25/22 13:13:00 EDT, Supply Start Date: 09/25/22 Status: Ordered Nebulizer/Compressor See Instructions, # 1 each, Maintenance, Use as directed for management of COPD Dx: J44.9 J45.909 Duration: Lifetime, 09/25/22 13:09:00 EDT, Supply Start Date: 09/25/22 Status: Ordered Nutritional Supplements See Instructions, # 90 each, Refills 5, Tot. Refills 5, Maintenance, Dispense:: Vanilla Ensure supplemental shakes Dx: Lung CA, weight loss, 05/08/22 13:00:00 EDT, Supply Start Date: 05/08/22 Status: Ordered omeprazole 20 mg oral enteric coated capsule See Instructions, TOME NAZ CAPSULA TODOS LOS BENITEZ, # 90 capsule, 3 Refills, Maintenance, 07/30/22 16:26:00 EDT, [facility], 160, cm, 06/11/22 14:31:00 EDT, Height Start Date: 07/30/22 Status: Ordered predniSONE 10 mg oral tablet TOME NAZ TABLETA TODOS LOS D Start Date: 08/22/21 Status: Ordered Testosterone Cypionate 200 mg/mL intramuscular solution See Instructions, INJECT 0.5 (HALF) ML INTRAMUSCULARLY EVERY 14 DAYS, # 2 mL, 5 Refills, Maintenance, 05/18/22 9:43:00 EDT, [id number], 160, cm, 04/29/22 11:20:00 EDT, Height Start Date: 05/18/22 Status: Ordered Testosterone Cypionate 200 mg/mL intramuscular solution See Instructions, INJECT 0.5 (HALF) ML INTRAMUSCULARLY EVERY 14 DAYS, # 2 mL, 5 Refills, Maintenance, 01/08/23 8:53:00 EST, [id number], 158.3, cm, 01/07/23 13:42:00 EST, Height Start Date: 01/08/23 Status: Ordered theophylline 400 mg/24 hours oral tablet, extended release 1 tablet = 400 mg, By Mouth, Every 24 hours, # 180 tablet, 0 Refills, Maintenance, 10/31/21 9:34:00EST, ER Tablet, Partial fill upon patient request if the prescription is for a schedule II opioid drug. Start Date: 10/31/21 Status: Ordered Trelegy Ellipta 200 mcg-62.5 mcg-25 mcg/inh inhalation powder 1 puffs, By Mouth, Daily, TOME NAZ INHALACI N POR V A ORAL TODOS LOS D , # 1 each, 5 Refills, Maintenance, 07/30/22 6:38:00 EDT, Powder, [id number], Partial fill upon patient request if theprescription is for a schedule II opioid drug., 1 p... Start Date: 07/30/22 Status: Ordered True Metrix Glucometer True Metrix Glucometer, See Instructions, # 1 each, Refills 0, Tot. Refills 0, Maintenance, Dx: DM2, once daily checks, 10/02/22 10:08:00 EDT, Supply, 160, cm, 08/27/22 14:20:00 EDT, Height Start Date: 10/02/22 Status: Ordered True Metrix Lancets True Metrix Lancets, See Instructions, # 100 each, Refills 11, Tot. Refills 11, Maintenance, Dx: Dm2, once daily checks, 10/02/22 10:09:00 EDT, Supply, 160, cm, 08/27/22 14:20:00 EDT, Height Start Date: 10/02/22 Status: Ordered True Metrix Test Strips True Metrix Test Strips, See Instructions, # 100 each, Refills 11, Tot. Refills 11, Maintenance, Dx: DM2 once daily checks, 10/02/22 10:09:00 EDT, Supply, 160, cm, 08/27/22 14:20:00 EDT, Height Start Date: 10/02/22 Status: Ordered Vitamin D3 1000 intl units oral tablet 1 tablet = 25 mcg, By Mouth, Daily, # 30 tablet, 6 Refills, Maintenance, 01/08/23 10:54:00 EST, [facility]/pharmacy #[id number], 158.3, cm, 01/07/23 13:42:00 EST, Height Start Date: 01/08/23 Status: Ordered Problem List Condition Confirmation Course Effective Dates Status H ealth Status Informant Asthma 1 Confirmed 01/23/09 Active Cataract Confirmed Active Cervical arthritis 2, 3 Confirmed Active Colonoscopy 4 Confirmed 06/02/07 Active COPD - Chronic obstructive pulmonary disease 5 Confirmed Active Diabetes Mellitus Confirmed 2011 Active Diverticulosis 6 Confirmed 05/2012 Active Granuloma 7, 8 Confirmed 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 Heartburn Confirmed Active Hemorrhoid 9 Confirmed 2011 Active Hydronephrosis 10, 11 Confirmed 01/18/09 Active Hyperlipidemia Confirmed 04/2010 Active Hypothyroidism Confirmed Active Insomnia Confirmed Active Kidney stone 12, 13 Confirmed 01/18/09 Active DJD (degenerative joint disease), lumbar Confirmed Active Lung nodule Confirmed Active Hypogonadism male Confirmed Active Microalbuminuria 14 Confirmed 01/03/19 Active Multiple lung nodules on CT 15, 16 Confirmed 09/13/18 Active Non-small cell lung cancer 17 Confirmed 06/07/22 Active 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 Active Osteoarthritis of knee 19 Confirmed 12/2009 Active Osteoporosis 20 Confirmed 2011 Active 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 mild left hydronephrosis 12Repeat stone Oct 2021, seeing urology 13per CT from [facility] , ER was notified 14not starting meds due to polypharmacy and comorbidities 15Followed by Pulm in [place], stability on repeat CT Chest Sep 2020 per their note 16New 10mm nodule LUNG-RADS 4B 09/20/19 17Followed by [place] [facility] [place] 2007 x-ray 2009 x-ray [id number] DEXA: T-score lowest -3.7 21Rash developed 07/06/13 Social History Social History Type Response Smoking Status Former smoker; Other : per pt; entered on: 04/21/18 Sex Male Patient Care team information Care Team Personnel Name: Cal PRADO, Luz Simeon Position: [facility] PCO Associate Professional Member Role: PCP Address: Address: [address] [place] [address]- Care Team Related Persons Name: STEVE LOPEZ Address: home [address] [place] [address] Name: MERLY ROBERSON Address: home [address] [place] [address] Name: MORALES MUELLER JR
--- OUTSIDE RECORDS SUMMARY | 2023-08-14 20:05 | XMS_ITS | Continuity of Care Document ---
Author Name Unknown Organization [facility] Address [address] [place] [address]- Care Team Providers Care Manager Applied Name Role Phone Cal HEALTHCARE ANALYST, Luz Simeon Primary Care Physician [facility] 09[facility]22 - 10/29/22 [facility] [address] [place] [address]- Allergies, Adverse Reactions, Alerts Substance Reaction Severity Status doxycycline dizziness Active cephalexin rash Active gabapentin altered mental state Active traMADol Active Proventil HFA Nausea Active Nicotine Patch 1 Bronchospasm Nausea Dizzy Active varenicline C/O: itching Nausea Insomnia Active 1see general med office note 4-3-09; pt reports bronchospasm/shortness of breath & palpitations within 5 minutes of putting on 14 patch that immediately went away after taking off patch Immunizations Given and Recorded Vaccine Date Status Refusal Reason [id number] 12y+ bivalent booster vax 10/16/22 Given influenza [...] (oldterm) 12 10/08/06 Given 1Result Comment: [09/24/2017] [facility] [id number] 2Admin Note: VIS 7- 3Admin Note: VIS given 06/23/11, egyptian form 4Admin Note: VIS GIVEN 07/08/10 egyptian 5Result Comment: [04/02/2016] VIS in Stateless given 6Admin Note: sep 06 7Admin Note: vis given in Stateless 8Admin Note: VIS given in Stateless 9Admin Note: VIS IN NIGERIAN 10Admin Note: VIS in egyptian 11Admin Note: VIS-GIVEN 12Admin Note: VIS-GIVEN Medications albuterol-ipratropium 3 mg-0.5 mg/3 ml inhalation solution 1 vials, Inhalation, 4 times a day, Dx: COPD J44.9, Asthma J45.998, Lung Cancer C34.00 Sig: use every 6hr as needed for cough, SOB, wheezing, # 100 each, 11 Refills, 10/16/22 16:16:00 EST, [facility]/pharmacy #[id number], 1 vials Inhalation 4 times a day,Instr:Dx... Start Date: 10/16/22 Status: Ordered Alcohol Wipes See Instructions, # 100 each, Refills 5, Tot. Refills 5, Maintenance, use as directed prior to checking blood sugar 2 x daily Dx: E11.9, 07/28/22 12:53:00 EDT, Supply, 160, cm, 06/11/22 14:31:00 EDT,Height Start Date: 07/28/22 Status: Ordered Daily Leslie oral tablet See Instructions, TOME NAZ TABLETA TODOS LOS BENITEZ (NONFORMULARY), # 90 tablet, 1 Refills, Maintenance, 07/28/22 15:19:00 EDT, [facility], 90, TOME NAZ TABLETA TODOS LOS BENITEZ (NONFORMULARY), 160,cm, 06/11/22 14:31:00 EDT, Height Start Date: 07/28/22 Status: Ordered duloxetine 30 mg oral enteric coated capsule See Instructions, TOME NAZ CAPSULA POR VIA ORAL TODOS LOS BENITEZ DON'T CRUSH OR CHEW NEEDED FOR PAIN, # 90 capsule, 1 Refills, [facility], 160, cm, 06/11/22 14:31:00 EDT, Height Start [...] Height Start Date: 05/27/22 Status: Ordered levothyroxine 0.112 mg oral tablet 1 tablet = 112 mcg, By Mouth, Daily, # 90 tablet, 3 Refills, Maintenance, 04/29/22 11:58:00 EDT, Tablet, [facility]/pharmacy #[id number], dose change 09/10/20, 160, cm, 04/29/22 11:20:00 EDT, Height Start Date: 04/29/22 Status: Ordered metFORMIN 500 mg oral tablet See Instructions, TOME NAZ TABLETA POR VIA ORAL TODOS LOS BENITEZ CON LAS COMIDAS, # 90 tablet, 1 Refills, Maintenance, 07/28/22 15:19:00 EDT, [facility], 160, cm, 06/11/22 14:31:00 EDT, Height Start Date: 07/28/22 Status: Ordered mirtazapine 7.5 mg oral tablet See Instructions, TOME NZA TABLETA POR VIA ORAL AL ACOSTARSE, # 90 tablet, 3 Refills, [facility], 160, cm, 04/29/22 11:20:00 EDT, Height Start Date: 05/27/22 Status: Ordered montelukast 10 mg oral tablet See Instructions, TOME NAZ TABLETA POR VIA ORAL CADA NOCHE, # 90 tablet, Refills 3, Maintenance, 08/05/22 11:49:00 EDT, Instructions Replace Required Details, Route to Pharmacy Electronically, [facility], 160, cm, 06/11/22 14:31:00 EDT, Height Start Date: 08/05/22 Status: Ordered nabumetone 500 mg oral tablet See Instructions, TOME NAZ TABLETA POR VIA ORAL DOS VECES AL YAEL CUANDO SEA NECESARIO FOR KNEE PAIN, # 60 tablet, 1 Refills, Maintenance, 07/28/22 15:22:00 EDT, [facility], 160, cm, 06/11/22 14:31:00 EDT, Height Start Date: 07/28/22 Status: Ordered Nebulizer tubing and mask Nebulizer [...] Refills 5, Tot. Refills 5, Maintenance, Dispense:: Gege Ensure supplemental shakes Dx: Lung CA, weight loss, 05/08/22 13:00:00 EDT, Supply Start Date: 05/08/22 Status: Ordered omeprazole 20 mg oral enteric coated capsule See Instructions, BAHMAN CHILDS CAPSULA IVETHNUÑEZ BENITEZ, # 90 capsule, 3 Refills, Maintenance, 07/30/22 16:26:00 EDT, [facility], 160, cm, 06/11/22 14:31:00 EDT, Height Start Date: 07/30/22 Status: Ordered predniSONE 10 mg oral tablet See Instructions, 1.5 tablet By Mouth Daily, # 45 tablet, 2 Refills, Maintenance, 01/05/22 14:14:00EST, [facility]/pharmacy #[id number], Partial fill upon patient request if the prescription is for a schedule IIopioid drug., 160, cm, 01/05/22 13:54:00 EST, Height Start Date: 01/05/22 Status: Ordered predniSONE 10 mg oral tablet BAHMAN CHILDS TABLETA SORIN SAVAGE D Start Date: 08/22/21 Status: Ordered Right knee hinged knee brace Right knee hinged knee brace, See Instructions, # 1 each, Refills 0, Tot. Refills 0, Maintenance, Dx: OA knees, 08/27/22 15:07:00 EDT, Supply Start Date: 08/27/22 Status: Ordered Testosterone Cypionate 200 mg/mL intramuscular solution See Instructions, INJECT 0.5 (HALF) ML INTRAMUSCULARLY EVERY 14 DAYS, # 2 mL, 5 Refills, Maintenance, 05/18/22 9:43:00 EDT, [id number], 160, cm, 04/29/22 11:20:00 EDT, Height Start Date: 05/18/22 Status: Ordered theophylline 400 mg/24 hours oral [...] 5 Refills, Maintenance, 07/30/22 6:38:00 EDT, Powder, [facility]/pharmacy #[id number], Partial fill upon patient request if theprescription [...] EDT, Height Start Date: 10/02/22 Status: Ordered Problem List Condition Confirmation Course [...] male Confirmed Active Lung cancer Confirmed Active Microalbuminuria 14 Confirmed 2/5/19 Active Multiple lung nodules on CT 15, 16 Confirmed 09/13/18 Active Non-small cell lung cancer 17 Confirmed 06/07/22 Active 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 Active Osteoarthritis of knee 19 Confirmed 12/2009 Active Osteoporosis 20 Confirmed 2011 Active 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 mild left hydronephrosis 12Repeat stone Oct 2021, seeing urology 13per CT from [facility] , ER was notified 14not starting meds due to polypharmacy and comorbidities 15Followed by Pulm in [place], stability on repeat CT Chest Sep 2020 per their note 16New 10mm nodule LUNG-RADS 4B 09/20/19 17Followed by [place] [facility] [place] 2007 x-ray 2009 x-ray [id number] DEXA: T-score lowest -3.7 21Rash developed 07/06/13 Social History Social History Type Response Smoking Status Former smoker; Other : per pt; entered on: 04/21/18 Sex Male Patient Care team information Care Team Personnel Name: Cal PRADO, Luz Simeon Position: [facility] PCO Associate Professional Member Role: PCP Address: Address: [address] [place] [address]- Care Team Related Persons Name: STEVE LOPEZ Address: home [address] [place] [address] Name: MERLY ROBERSON Address: home [address] [place] [address] Name: MORALES MUELLER JR
--- OUTSIDE RECORDS SUMMARY | 2023-08-14 20:05 | XMS_ITS | Continuity of Care Document ---
Author Name Unknown Organization [facility] Address [address] [place] [address]- Care Team Providers Care Tag Press Operator Name Role Phone Cal COUNTER HELPER, Luz Simeon Primary Care Physician [phone] [facility]counter [facility] Date[facility]s): 06/30/23 - 07/30/23 [facility] [address] [place] [phone]- Allergies, Adverse Reactions, Alerts Substance Reaction Severity [...] and Recorded Vaccine Date Status Refusal Reason [id number] 12y+ bivalent booster vax 11/17/22 Given [id number] 12y+ bivalent booster vax 10/16/22 Given influenza [...] (oldterm) 12 10/08/06 Given 1Result Comment: [09/24/2017] [facility] [id number] 2Admin Note: VIS 7- 3Admin Note: VIS given 06/23/11, monegasque form 4Admin Note: VIS GIVEN 07/08/10 monegasque 5Result Comment: [04/02/2016] VIS in Portuguese given 6Admin Note: sep 06 7Admin Note: vis given in Portuguese 8Admin Note: VIS given in Portuguese 9Admin Note: VIS IN ICELANDIC 10Admin Note: VIS in monegasque 11Admin Note: VIS-GIVEN 12Admin Note: VIS-GIVEN Medications 3cc syringe and needle, 25 G x1 3cc syringe and needle, 25 G x1 , See Instructions, # 6 each, Refills 2, Tot. Refills 2, Maintenance, used to withdraw and inject testosterone, 07/15/23 19:16:00 EDT, Supply, 158.3, cm, 07/15/23 13:19:00 EDT, Height Start Date: 07/15/23 Status: Ordered albuterol CFC free 90 mcg/inh inhalation aerosol 1, puffs, Inhalation, 4 times a day, PRN, dx: J45.909, # 1 each, Refills 11, Tot. Refills 11, Maintenance, 03/15/23 9:26:00 EDT, Aerosol, Route to Pharmacy Electronically, [id number], [facility]/pharmacy #[id number], 158.3, cm, 03/15/23 9... Start Date: 03/15/23 Status: Ordered albuterol-ipratropium 3 mg-0.5 mg/3 ml inhalation solution 1 vials, Inhalation, 4 times a day, Dx: COPD J44.9, Asthma J45.998, Lung Cancer C34.00 Sig: use every 6hr as needed for cough, SOB, wheezing, # 100 each, 11 Refills, 10/16/22 16:16:00 EST, [facility]/pharmacy #[id number], 1 vials Inhalation 4 times a day,Instr:Dx... Start Date: 10/16/22 Status: Ordered Alcohol Wipes See Instructions, # 100 each, Refills 5, Tot. Refills 5, Maintenance, use as directed prior to checking blood sugar 2 x daily Dx: E11.9, 07/28/22 12:53:00 EDT, Supply, 160, cm, 06/11/22 14:31:00 EDT,Height Start Date: 07/28/22 Status: Ordered Battery for Glucometer Battery for Glucometer, See Instructions, # 1 each, Refills 0, Tot. Refills 0, Maintenance, Dx: DM2, 06/28/23 14:21:00 EDT, if new glucometer is not covered, can you replace the battery on the one hegot in [facility]?, Supply, 158.3, cm, 06/28/23 13:1... Start Date: 06/28/23 Status: Ordered calcium (as citrate)-vitamin D 315 mg-250 intl units oral tablet 1 tablet, By Mouth, 2 times a day, # 180 tablet, 6 Refills, Maintenance, 07/15/23 19:14:00 EDT, Tablet, [facility]/pharmacy #[id number], Partial fill upon patient request if the prescription is for a schedule II opioid drug., 1 tablet By Mouth 2 times a day, 158.3... Start Date: 07/15/23 Status: Ordered Daily Leslie oral tablet See Instructions, ANJELE NAZ TABLETA TONUÑEZ BENITEZ (NONFORMULARY), # 90 tablet, 1 Refills, Maintenance, 01/27/23 14:13:00 EST, [id number], 90, TOME NAZ TABLETA TODOS HUSSEIN BENITEZ (NONFORMULARY), 158.3, cm, 01/07/23 13:42:00 EST, Height Start Date: 01/27/23 Status: Ordered diclofenac 1% topical gel 1 application, Topically, 4 times a day, # 100 Gm, 0 Refills, Maintenance, 06/24/23 12:02:00 EDT, Gel, [id number], Partial fill upon patient request if the prescription is for a schedule II opioid drug., 158.3, cm, 05/19/23 14:14:00 EDT, Height Start Date: 06/24/23 Status: Ordered duloxetine 30 mg oral enteric coated capsule See Instructions, BAHMAN CHILDS CAPSULA POR VIA ORAL TONUÑEZ BENITEZ DON'T CRUSH OR CHEW NEEDED FOR PAIN, # 90 capsule, 1 Refills, [id number], 160, cm, 06/11/22 14:31:00 EDT, Height Start Date: 07/06/22 Status: Ordered FREESTYLE LITE TEST STRIP FREESTYLE LITE TEST STRIP, See Instructions, # 100 Unknown, 10 Refills, USE TO CHECK BLOOD GLUCOSE 2 TIMES A DAY, 160, cm, 04/29/22 11:20:00 EDT, Height Start Date: 05/27/22 Status: Ordered ibandronate 150 mg oral tablet 1 tablet = 150 mg, By Mouth, Every 30 days, Swallow whole w/6-8oz water 1HR before first food, drink, med-Do not lie down for 1HR & until after first food, # 3 tablet, 2 Refills, Maintenance, 07/15/23 14:00:00 EDT, Tablet, [id number], Partial... Start Date: 07/15/23 Status: Ordered levothyroxine 0.088 mg oral tablet 1 tablet = 88 mcg, By Mouth, Daily, # 90 tablet, 1 Refills, Maintenance, 03/16/23 12:53:00 EDT, Tablet, [id number], Partial fill upon patient request if the prescription is for a schedule II opioid drug. Dose reduction February 2023, 158.3, cm, 0... Start Date: 03/16/23 Status: Ordered lidocaine 5% topical film 1 patch, Topically, Daily, PRN Pain , Mild, remove after 12 hours, # 13 each, 11 Refills, Maintenance, 07/01/23 11:12:00 EDT, Film, [facility]/pharmacy #[id number], Partial fill upon patient request if the prescription is for a schedule II opioid drug. For Cancer... Start Date: 07/01/23 Status: Ordered metFORMIN 500 mg oral tablet See Instructions, TOME NAZ TABLETA POR VIA ORAL TODOS LOS BENITEZ CON LAS COMIDAS, # 90 tablet, 1 Refills, Maintenance, 01/27/23 14:13:00 EST, [id number], 158.3, cm, 01/07/23 13:42:00 EST, Height Start Date: 01/27/23 Status: Ordered mirtazapine 7.5 mg oral tablet See Instructions, TOME NAZ TABLETA POR VIA ORAL AL ACOSTARSE, # 90 tablet, 3 Refills, 06/24/23 13:24:00 EDT, [facility], 158.3, cm, 05/19/23 14:14:00 EDT, Height Start Date: 06/24/23 Status: Ordered montelukast 10 mg oral tablet See Instructions, TOME NAZ TABLETA POR VIA ORAL CADA NOCHE, # 90 tablet, Refills 3, Maintenance, 08/05/22 11:49:00 EDT, Instructions Replace Required Details, Route to Pharmacy Electronically, [id number], 160, cm, 06/11/22 14:31:00 EDT, Height Start Date: 08/05/22 Status: Ordered nabumetone 500 mg oral tablet See Instructions, TOME NAZ TABLETA POR VIA ORAL DOS VECES AL YAEL CUANDO SEA NECESARIO POR DOLOR, # 60 tablet, 1 Refills, Maintenance, 06/23/23 8:44:00 EDT, [id number], 158.3, cm, 05/19/23 14:14:00 EDT, Height Start Date: 06/23/23 Status: Ordered nicotine 4 mg oral transmucosal lozenge 1 lozenge = 4 mg, By Mouth, Every 4 hours, for 8 week(s), # 336 lozenge, 1 Refills, Acute 10/14/23 12:00:00 EST, 06/24/23 12:00:00 EDT, [facility]/pharmacy #[id number], Partial fill upon patient request if the prescription is for a schedule II opioid drug., 1 loze... Start Date: 06/24/23 Stop Date: 10/14/23 Status: Ordered Nutritional Supplements See Instructions, # 90 each, Refills 5, Tot. Refills 5, Maintenance, Dispense:: Vanilla Ensure supplemental shakes Dx: Lung CA, weight loss, 05/08/22 13:00:00 EDT, Supply Start Date: 05/08/22 Status: Ordered omeprazole 20 mg oral enteric coated capsule See Instructions, BAHMAN CHILDS CAPSULA SORIN BENITEZ, # 90 capsule, 3 Refills, Maintenance, 06/24/23 13:25:00 EDT, [id number], 158.3, cm, 05/19/23 14:14:00 EDT, Height Start Date: 06/24/23 Status: Ordered oxyCODONE 5 mg oral tablet 5 mg, 1, tablet, By Mouth, 2 times a day, # 56 tablet, Refills 0, Tot. Refills 0, Maintenance, 06/23/23 10:49:00 EDT, Route to Pharmacy Electronically, [facility]/pharmacy #[id number], Partial fill upon patient request if the prescription is for a schedule II opio... Start Date: 06/23/23 Stop Date: 07/21/23 Status: Ordered predniSONE 10 mg oral tablet TOME NAZ TABLETA TONUÑEZ D Start Date: 08/22/21 Status: Ordered Testosterone Cypionate 200 mg/mL intramuscular solution See Instructions, INJECT 0.5 (HALF) ML INTRAMUSCULARLY EVERY 14 DAYS, # 2 mL, 5 Refills, Maintenance, 07/15/23 19:17:00 EDT, [facility]/pharmacy #[id number], 158.3, cm, 07/15/23 13:19:00 EDT, Height Start Date: 07/15/23 Status: Ordered theophylline 400 mg/24 hours oral tablet, extended release 1 tablet = 400 mg, By Mouth, Every 24 hours, # 90 tablet, 2 Refills, Maintenance, 06/24/23 13:25:00EDT, CR Tablet, [facility]/pharmacy #[id number], Partial fill upon patient request if the prescription is for a schedule II opioid drug., 158.3, cm, 05/19/23 14:14:... Start Date: 06/24/23 Status: Ordered Trelegy Ellipta 200 mcg-62.5 mcg-25 mcg/inh inhalation powder 1 puffs, Inhalation, Daily, at the same time every day, # 60 each, 3 Refills, Maintenance, 06/24/2311:55:00 EDT, Powder, [facility]/pharmacy #[id number], Partial fill upon patient request if the prescription is for a schedule II opioid drug., 1 puffs Inhalation D... Start Date: 06/24/23 Stop Date: 10/22/23 Status: Ordered True Metrix Glucometer True Metrix Glucometer, See Instructions, # 1 each, Refills 0, Tot. Refills 0, Maintenance, Dx: DM2, once daily checks, 06/28/23 14:21:00 EDT, Dispensed Glucometer from Sep 2022 not functional, Supply, 158.3, cm, 06/28/23 13:10:00 EDT, Height Start Date: 06/28/23 Status: Ordered True Metrix Lancets True Metrix [...] EDT, Height Start Date: 10/02/22 Status: Ordered Tylenol Extra Strength 500 mg oral tablet 1 tablet = 500 mg, By Mouth, Every 6 hours, PRN as needed for pain, # 100 tablet, 0 Refills, Maintenance, 06/24/23 13:26:00 EDT, Tablet, [id number], Partial fill upon patient request if the prescription is for a schedule II opioid drug., 158.3... Start Date: 06/24/23 Status: Ordered VITAMIN D3 1,000 UNIT TABLET VITAMIN D3 1,000 UNIT TABLET, See Instructions, # 90 tablet, 2 Refills, Maintenance, TOME NAZ TABLETA TOJEAN, 07/15/23 7:51:00 EDT, 158.3, cm, 06/28/23 13:10:00 EDT, Height Start Date: 07/15/23 Status: Ordered Vitamin D3 1000 intl units oral tablet See Instructions, 2 tablet By Mouth Daily, # 60 each, 6 Refills, Maintenance, 07/15/23 13:55:00 EDT, [id number], 158.3, cm, 07/15/23 13:19:00 EDT, Height Start Date: 07/15/23 Status: Ordered Problem List Condition Confirmation Course [...] Active Underweight Confirmed Active 1positive bronchial challenge - 2x-ray 2013 stable, persistent 08449 x-ray, mild 4repeat 5 years 5Severe emphysema per pulmo note 05/18/13 6per 7-2011 colonoscopy 7PPD negative 04-26-08 8lung (lateral basal segment of the left lower lobe), per CT 01-18-2009 done at [facility] 9internal and external per 2011 colonoscopy 10urology consult written today 11per CT from [facility], associated with ureteral stone. mild left hydronephrosis 12Repeat stone Oct 2021, seeing urology 13per CT from [facility] , ER was notified 14not starting meds due to polypharmacy and comorbidities 15Followed by Pulm in [place], stability on repeat CT Chest Sep 2020 per their note 16New 10mm nodule LUNG-RADS 4B 09/20/19 17Followed by [place] [facility] and Thanh Kerry 2007 x-ray 2009 x-ray [id number] DEXA: T-score lowest -3.7 21Rash developed 07/06/13 Social History Social History Type Response Smoking Status Former smoker; Other : per pt; entered on: 04/21/18 Sex Male Patient Care team information Care Team Personnel Name: Cal PRADO, Luz Simeon Position: [facility] PCO Associate Professional Member Role: PCP Address: Address: [address] [place] [address] [place] [address]- Care Team Related Persons Name: STEVE LOPEZ Address: home [address] [place] [address] Name: MERLY ROBERSON Address: home [address] [place] [address] Name: MORALES MUELLER JR
--- OUTSIDE RECORDS SUMMARY | 2023-08-14 20:06 | XMS_ITS | Continuity of Care Document ---
Author Name Unknown Organization [facility] Address [address] [place] [id number]- Care Team Providers Care Drafter Directional Survey Name Role Phone Cal PRADO, Luz Simeon Primary Care Physician [phone] [facility]counter [facility] Date[facility]s): 05/21/23 - 07/24/23 [facility] [address] [place] [id number]- Attending Physician: Mook Gordon MD Admitting Physician: [...] and Recorded Vaccine Date Status Refusal Reason [id number] 12y+ bivalent booster vax 11/17/22 Given [id number] 12y+ bivalent booster vax 10/16/22 Given influenza [...] (oldterm) 12 10/08/06 Given 1Result Comment: [09/24/2017] [facility] [id number] 2Admin Note: VIS 7- 3Admin Note: VIS given 06/23/11, iraqi form 4Admin Note: VIS GIVEN 07/08/10 iraqi 5Result Comment: [04/02/2016] VIS in Panamanian given 6Admin Note: sep 06 7Admin Note: vis given in Panamanian 8Admin Note: VIS given in Panamanian 9Admin Note: VIS IN MALAY 10Admin Note: VIS in iraqi 11Admin Note: VIS-GIVEN 12Admin Note: VIS-GIVEN Medications [...] 9:26:00 EDT, Aerosol, Route to Pharmacy Electronically, [id number], [facility]/pharmacy #[id number], 158.3, cm, 03/15/23 9... Start Date: 03/15/23 Status: Ordered albuterol-ipratropium 3 mg-0.5 mg/3 ml inhalation solution 1 vials, Inhalation, 4 times a day, Dx: COPD J44.9, Asthma J45.998, Lung Cancer C34.00 Sig: use every 6hr as needed for cough, SOB, wheezing, # 100 each, 11 Refills, 10/16/22 16:16:00 EST, [facility]/pharmacy #207, 1 vials Inhalation 4 times a day,Instr:Dx... [...] the battery on the one hegot in [facility]?, Supply, 158.3, cm, 06/28/23 13:1... Start Date: 06/28/23 Status: Ordered calcium (as citrate)-vitamin D 315 mg-250 intl units oral tablet 1 tablet, By Mouth, 2 times a day, # 180 tablet, 6 Refills, Maintenance, 07/15/23 19:14:00 EDT, Tablet, [facility]/pharmacy #[id number], Partial fill upon patient request if the prescription is for a schedule II opioid drug., 1 tablet By Mouth 2 times a day, 158.3... Start Date: 07/15/23 Status: Ordered Daily Leslie oral tablet See Instructions, TOME NAZ TABLETA TODOS LOS BENITEZ (NONFORMULARY), # 90 tablet, 1 Refills, Maintenance, 01/27/23 14:13:00 EST, [facility], 90, TOME NAZ TABLETA TODOS LOS BENITEZ (NONFORMULARY), 158.3, cm, 01/07/23 13:42:00 EST, Height Start Date: 01/27/23 Status: Ordered diclofenac 1% topical gel 1 application, Topically, 4 times a day, # 100 Gm, 0 Refills, Maintenance, 06/24/23 12:02:00 EDT, Gel, [facility]/pharmacy #[id number], Partial fill upon patient request if the prescription is for a schedule II opioid drug., 158.3, cm, 05/19/23 14:14:00 EDT, Height Start Date: 06/24/23 Status: Ordered duloxetine 30 mg oral enteric coated capsule See Instructions, TOME NAZ CAPSULA POR VIA ORAL TODOS LOS BENITEZ DON'T CRUSH OR CHEW NEEDED FOR PAIN, # 90 capsule, 1 Refills, [facility], 160, cm, 06/11/22 14:31:00 EDT, Height Start [...] 11 Refills, Maintenance, 07/01/23 11:12:00 EDT, Film, [facility]/pharmacy #[id number], Partial fill upon patient request if the prescription is for a schedule II opioid drug. For Cancer... Start Date: 07/01/23 Status: Ordered metFORMIN 500 mg oral tablet See Instructions, TOME NAZ TABLETA POR VIA ORAL TODOS LOS BENITEZ CON LAS COMIDAS, # 90 tablet, 1 Refills, Maintenance, 01/27/23 14:13:00 EST, [facility], 158.3, cm, 01/07/23 13:42:00 EST, Height Start [...] Details, Route to Pharmacy Electronically, [facility], 160, cm, 06/11/22 14:31:00 EDT, Height Start [...] Acute 10/14/23 12:00:00 EST, 06/24/23 12:00:00 EDT, [facility]/pharmacy #[id number], Partial fill upon patient [...] 06/23/23 10:49:00 EDT, Route to Pharmacy Electronically, [facility]/pharmacy #[id number], Partial fill upon patient [...] mL, 5 Refills, Maintenance, 07/15/23 19:17:00 EDT, [id number], 158.3, cm, 07/15/23 13:19:00 EDT, Height Start Date: 07/15/23 Status: Ordered theophylline 400 mg/24 hours oral tablet, extended release 1 tablet = 400 mg, By Mouth, Every 24 hours, # 90 tablet, 2 Refills, Maintenance, 06/24/23 13:25:00EDT, CR Tablet, [facility]/pharmacy #[id number], Partial fill upon patient request if the prescription is for a schedule II opioid drug., 158.3, cm, 05/19/23 14:14:... Start Date: 06/24/23 Status: Ordered Trelegy Ellipta 200 mcg-62.5 mcg-25 mcg/inh inhalation powder 1 puffs, Inhalation, Daily, at the same time every day, # 60 each, 3 Refills, Maintenance, 06/24/2311:55:00 EDT, Powder, [facility]/pharmacy #[id number], Partial fill upon patient [...] 0 Refills, Maintenance, 06/24/23 13:26:00 EDT, Tablet, [facility]/pharmacy #[id number], Partial fill upon patient request if the prescription is for a schedule II opioid drug., 158.3... Start Date: 06/24/23 Status: Ordered VITAMIN D3 1,000 UNIT TABLET VITAMIN D3 1,000 UNIT TABLET, See Instructions, # 90 tablet, 2 Refills, Maintenance, ANJELE NAZ VICTORA SORIN BENITEZ, 07/15/23 7:51:00 EDT, 158.3, cm, 06/28/23 13:10:00 [...] bronchial challenge 01-07 2x-ray 2013 stable, persistent [address] x-ray, mild 4repeat 5 years 5Severe emphysema per pulmo note 05/18/13 6per colonoscopy 7PPD negative 04-26-08 8lung (lateral basal segment of the left lower lobe), per CT 01-18-2009 done at [facility] 9internal and external per 2011 colonoscopy 10urology consult written today 11per CT from [facility], associated with ureteral stone. mild left hydronephrosis 12Repeat stone Oct 2021, seeing urology 13per CT from [facility] , ER was notified 14not starting meds due to polypharmacy and comorbidities 15Followed by Pulm in [place], stability on repeat CT Chest Sep 2020 per their note 16New 10mm nodule LUNG-RADS 4B 09/20/19 17Followed by [place] [facility] and [facility] [place] [id number] x-ray 2009 x-ray [id number] DEXA: T-score lowest -3.7 21Rash developed 07/06/13 Social History Social History Type Response Smoking Status Former smoker; Other : per pt; entered on: 04/21/18 Sex Male Patient Care team information Care Team Personnel Name: Luz Mccall NP Position: [facility] PCO Associate Professional Member Role: PCP Address: Address: [address] [place] [address] [place] [address]- Care Team Related Persons Name: STEVE LOPEZ Address: home [address] [place] [address] Name: MERLY ROBERSON Address: [address] [place] [address] Name: MORALES MUELLER JR
--- OUTSIDE RECORDS SUMMARY | 2023-08-14 20:06 | XMS_ITS | Continuity of Care Document ---
Author Name Unknown Organization [facility] Address [address] [place] [id number]- Care Team Providers Care Oyster Preparer Name Role Phone Cal PRADO, Luz Simeon Primary Care Physician [facility] - 12/17/22 [facility] [address] [place] [id number]- Attending Physician: Latasha uDmont Admitting Physician: Latasha Dumont Referring Physician: AdmtrLatasha [...] and Recorded Vaccine Date Status Refusal Reason [id number] 12y+ bivalent booster vax 11/17/22 Given [id number] 12y+ bivalent booster vax 10/16/22 Given influenza [...] (oldterm) 12 10/08/06 Given 1Result Comment: [09/24/2017] [facility] [id number] 2Admin Note: VIS 7- 3Admin Note: VIS given 06/23/11, faroese form 4Admin Note: VIS GIVEN 07/08/10 faroese 5Result Comment: [04/02/2016] VIS in Kazakh given 6Admin Note: sep 06 7Admin Note: vis given in Kazakh 8Admin Note: VIS given in Kazakh 9Admin Note: VIS IN LATVIAN 10Admin Note: VIS in faroese 11Admin Note: VIS-GIVEN 12Admin Note: VIS-GIVEN Medications albuterol-ipratropium 3 mg-0.5 mg/3 ml inhalation solution 1 vials, Inhalation, 4 times a day, Dx: COPD J44.9, Asthma J45.998, Lung Cancer C34.00 Sig: use every 6hr as needed for cough, SOB, wheezing, # 100 each, 11 Refills, 10/16/22 16:16:00 EST, [id number], 1 vials Inhalation 4 times a [...] Refills, Maintenance, 07/28/22 15:19:00 EDT, [facility], 90, TOME NAZ TABLETA TODOS LOS BENITEZ (NONFORMULARY), 160,cm, 06/11/22 14:31:00 EDT, Height Start Date: 07/28/22 Status: Ordered duloxetine 30 mg oral enteric coated capsule See Instructions, TOME NAZ CAPSULA POR VIA ORAL TODOS LOS BENITEZ DON'T CRUSH OR CHEW NEEDED FOR PAIN, # 90 capsule, 1 Refills, [facility], 160, cm, 06/11/22 14:31:00 EDT, Height Start [...] 3 Refills, Maintenance, 04/29/22 11:58:00 EDT, Tablet, [facility] #[id number], dose change 09/10/20, 160, cm, 04/29/22 11:20:00 EDT, Height Start Date: 04/29/22 Status: Ordered metFORMIN 500 mg oral tablet See Instructions, TOME NAZ TABLETA POR VIA ORAL TODOS LOS BENITEZ CON LAS COMIDAS, # 90 tablet, 1 Refills, Maintenance, 07/28/22 15:19:00 EDT, [facility], 160, cm, 06/11/22 14:31:00 EDT, Height Start Date: 07/28/22 Status: Ordered mirtazapine 7.5 mg oral tablet See Instructions, TOME NAZ TABLETA POR VIA ORAL AL ACOSTARSE, # 90 tablet, 3 Refills, [facility], 160, cm, 04/29/22 11:20:00 EDT, Height Start Date: 05/27/22 Status: Ordered montelukast 10 mg oral tablet See Instructions, TOME NAZ TABLETA POR VIA ORAL CADA NOCHE, # 90 tablet, Refills 3, Maintenance, 08/05/22 11:49:00 EDT, Instructions Replace Required Details, Route to Pharmacy Electronically, [facility], 160, cm, 06/11/22 14:31:00 EDT, Height Start Date: 08/05/22 Status: Ordered nabumetone 500 mg oral tablet See Instructions, TOME NAZ TABLETA POR VIA ORAL DOS VECES AL YAEL CUANDO SEA NECESARIO FOR KNEE PAIN, # 60 tablet, 1 Refills, Maintenance, 07/28/22 15:22:00 EDT, [facility], 160, cm, 06/11/22 14:31:00 EDT, Height Start [...] mg oral enteric coated capsule See Instructions, ANJELE NAZ CAPSULA SORIN SAVAGE BENITEZ, # 90 capsule, 3 Refills, Maintenance, 07/30/22 16:26:00 EDT, [facility], 160, cm, 06/11/22 14:31:00 EDT, Height Start Date: 07/30/22 Status: Ordered predniSONE 10 mg oral tablet See Instructions, 1.5 tablet By Mouth Daily, # 45 tablet, 2 Refills, Maintenance, 01/05/22 14:14:00EST, [id number], Partial fill upon patient request if the prescription is for a schedule IIopioid drug., 160, cm, 01/05/22 13:54:00 EST, Height Start Date: 01/05/22 Status: Ordered predniSONE 10 mg oral tablet TOME NAZ TABLETA SORIN SAVAGE D Start Date: 08/22/21 [...] Lung cancer Confirmed Active Microalbuminuria 14 Confirmed 01/03/19 Active [...] abuse Confirmed 1960 Active 1positive bronchial challenge 01-07 2x-ray 2013 stable, persistent 91919 x-ray, mild 4repeat 5 years 5Severe emphysema per pulmo note 05/18/13 6per colonoscopy 7PPD negative 04-26-08 8lung (lateral basal segment of the left lower lobe), per CT 01-18-2009 done at [facility] 9internal and external per 2011 colonoscopy 10urology consult written today 11per CT from [facility], associated with ureteral stone. mild left hydronephrosis 12Repeat stone Oct 2021, seeing urology 13per CT from [facility] , ER was notified 14not starting meds due to polypharmacy and comorbidities 15Followed by Pulm in [place], stability on repeat CT Chest Sep 2020 per their note 16New 10mm nodule LUNG-RADS 4B 09/20/19 17Followed by [place] [facility] 182007 x-ray 2009 x-ray [id number] DEXA: T-score lowest -3.7 21Rash developed 07/06/13 Social History Social History Type Response Smoking Status Former smoker; Other : per pt; entered on: 04/21/18 Sex Male Admission evaluation note * Kacie Brooke: PERFORM Event Display: Admission Note Authored Date: Note * Event Display: Non BH Lab Results Authored Date: * Event Display: [place] Nuclear Medicine, Non-BH Authored Date: * Event Display: Non BH Lab Results Authored Date: * Event Display: Non BH Lab Results Authored Date: * Event Display: Non BH Lab Results Authored Date: * Jovana Elias: PERFORM, SIGN, VERIFY Event Display: Patient Education/Instruction Authored Date: [facility] Clinical Summary Person Information Name MORALES MUELLER Age 67 Years 1945 12:00 AM PCP Marianne PRADO , Luz Simeon [id number] Reason for Visit: Allergy Info: Nicotine Patch; varenicline; Proventil HFA; gabapentin; cephalexin Vital Signs Height Weight BMI Blood Pressure / Temperature Pulse Rate Respiratory Rate 02 Sat Mode of Delivery / Medication Information Albuterol (albuterol 0.083% inhalation solution) 3 mL, Inhalation, every 6 hours, label in Kazakh.Please stop all prior scripts for DuoNeb, thank you, 30 days, Refills: 11 Albuterol (albuterol CFC free 90 mcg/inh inhalation aerosol) 2 puffs, Inhalation, 4 times a day, VENTOLIN - pt strongly prefers Ventolin rather than Proair, thank you thank you. label in Kazakh, 30 days, As Needed, for wheezing, Refills: 1 Alendronate (alendronate 70 mg oral tablet) 1 tablet, Oral, every week, with 6 to 8 ounces of plainwater, at least 30 minutes before breakfast. label in Kazakh, 28 days, Refills: 1 amiTRIPTYLINE (amitriptyline 25 mg oral tablet) 1 tablet, Oral, Daily at Bedtime, Refills: 1 Aspirin (aspirin 81 mg oral enteric coated tablet) 1 tablet, Oral, Daily, label in Kazakh with food (may be best to hold while taking prednisone), 30 days, Refills: 11 Atorvastatin (atorvastatin 40 mg oral tablet) 1 tablet, Oral, Daily, Label in Kazakh, 30 days, Refills: 5 Capsaicin Topical (capsaicin topical 0.1% cream) 1 applicator, Topically, 3 times a day, Refills: 1 Cholecalciferol (cholecalciferol 400 iu oral tablet) 2 tablet, Oral, Daily, label in Kazakh, 30 days, Refills: 1 DiphenhydrAMINE (Benadryl 25 mg oral capsule) 1 capsule, Oral, twice a day, 14 days, As Needed, as needed for itching, Refills: 0 Durable Medical Equipment (Alcohol Wipes) , See Instructions, Use as directed for diabetes up to once/day Durable Medical Equipment (Freestyle Lite Lancets) , See Instructions, Testing once daily, Refills:11 Durable Medical Equipment (Freestyle Lite Test Strips) , See Instructions, for testing once daily, Refills: 11 Durable Medical Equipment (Glucose Monitor) , See Instructions, Use as directed for diabetes Durable Medical Equipment (Glucose Test Strips) , See Instructions, Use as directed for diabetes upto once/day Fluticasone-Salmeterol (Advair Diskus 500 mcg-50 mcg inhalation powder) 1 puffs, Inhalation, twice a day, Refills: 11 Guaifenesin/Codeine (codeine-guaifenesin 10 mg-200 mg/5 ml oral liquid) 10 mL, Oral, Daily at Bedtime, As Needed, Cough, Refills: 0 Lidocaine Topical (lidocaine 5% topical ointment) 1 application, Topically, 3 times a day, Refills:5 Metformin (metformin 500 mg oral tablet) 1 tablet, Oral, twice a day, start taking once a day please label in Kazakh, 30 days, Refills: 11 Nabumetone (nabumetone 500 mg oral tablet) 2 tablet, Oral, Daily, with food, Refills: 1 Omeprazole (omeprazole 20 mg oral enteric coated tablet) 1 tablet, Oral, Daily in the morning, (do not crush or chew) label in Kazakh. 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 Diagnostic Results Lab Result Value Date Lead Hemoglobin A1C 6.8 05/02/13 LDL LDL CHOLESTEROL NOT CALCULATED WHEN TRIGLYCERIDES ARE GREATER THAN OR 05/02/13 HDL 41 05/02/13 Triglycerides 451 05/02/13 Total Cholesterol 247 05/02/13 Disclaimer: The information provided is of a general nature and is intended to be used in conjunction with the recommendations and advice of your health care practitioner. Every effort has been made to ensure that the information provided is accurate and complete at the time it is provided to you however, as your needs change, or, as new information becomes available, different or additional instructions may be required. If you have questions, please consult with your primary care provider or pharmacist, as appropriate. This information is not intended to serve as substitution for assessment and evaluation by a qualified health care provider. If you do not have a primary care provider, you may find a [facility] provider by calling [facility] [employer] at [phone]. Patient Education Information Follow-up Details: Patient Education Material: * Libertad Elias: PERFORM Event Display: Radiology Results Scanned Authored Date: * Event Display: Non BH Radiology Results Authored Date: * Jovana Elias: PERFORM Event Display: Radiology Results Scanned Authored Date: Patient Care team information Care Team Personnel Name: Luz Mccall NP Position: [facility] PCO Associate Professional Member Role: PCP Address: Address: [address] [place] [address]- Care Team Related Persons Name: STEVE LOPEZ Address: [address] [place] [address] Name: MERLY ROBERSON Address: home [address] [place] [address] Name: MORALES MUELLER JR
--- OUTSIDE RECORDS SUMMARY | 2023-08-14 20:06 | XMS_ITS | Continuity of Care Document ---
Author Name Unknown Organization [facility] Address [address] [place] [address]- Care Team Providers Care Dog Boarder Name Role Phone Cal PRADO, Luz Simeon Primary Care Physician [facility]): [facility]22 - 10/11/22 [facility] [address] [place] [address]- Attending Physician: Latasha Dumont Admitting Physician: AdmLatasha [...] 01/13/21 Given influenza virus vaccine, inactivated 09/25/21 Give n influenza virus vaccine, inactivated 09/26/20 Give n influenza virus vaccine, inactivated 10/18/18 Give n influenza virus vaccine, inactivated 1 09/24/17 Gi susie influenza virus vaccine, inactivated 08/28/15 Ben rded influenza virus vaccine, inactivated 09/18/14 Give n influenza virus vaccine, inactivated 08/18/13 Give n influenza virus vaccine, inactivated 1/29/13 Ben rded influenza virus vaccine, inactivated 2 07/18/12 Gi susie influenza virus vaccine, inactivated 3 08/27/11 Gi susie influenza virus vaccine, inactivated 4 08/29/10 Gi susie tetanus/diphtheria/pertussis, acel(Tdap) 07/09/20 Recorded pneumococcal 23-valent vaccine [...] 12 10/08/06 Given 1Result Comment: [09/24/2017] [facility] [id number] 2Admin Note: VIS 7- 3Admin Note: VIS given 06/23/11, austrian form 4Admin Note: VIS GIVEN 07/08/10 austrian 5Result Comment: [04/02/2016] VIS in Russian given 6Admin Note: sep 06 7Admin Note: vis given in Russian 8Admin Note: VIS given in Russian 9Admin Note: VIS IN TUNISIAN 10Admin Note: VIS in austrian 11Admin Note: VIS-GIVEN 12Admin Note: VIS-GIVEN Medications albuterol-ipratropium 3 mg-0.5 mg/3 ml inhalation solution 1 vials, Inhalation, 4 times a day, # 100 each, 11 Refills, 09/28/22 11:08:00 EDT, [facility]/pharmacy #2071, 1 vials Inhalation 4 times a day, 160, cm, 08/27/22 14:20:00 EDT, Height Start Date: 09/28/22 Status: Ordered Alcohol Wipes See Instructions, # [...] Refills, Maintenance, 07/28/22 15:19:00 EDT, [facility], 90, TOME NAZ TABLETA TODOS LOS BENITEZ (NONFORMULARY), 160,cm, 06/11/22 14:31:00 EDT, Height Start Date: 07/28/22 Status: Ordered duloxetine 30 mg oral enteric coated capsule See Instructions, TOME NAZ CAPSULA POR VIA ORAL TODOS LOS BENITEZ DON'T CRUSH OR CHEW NEEDED FOR PAIN, # 90 capsule, 1 Refills, [facility], 160, cm, 06/11/22 14:31:00 EDT, Height Start [...] 3 Refills, Maintenance, 04/29/22 11:58:00 EDT, Tablet, [facility]/pharmacy #5006, dose change 09/10/20, 160, cm, 04/29/22 11:20:00 EDT, Height Start Date: 04/29/22 Status: Ordered metFORMIN 500 mg oral tablet See Instructions, TOME NAZ TABLETA POR VIA ORAL TODOS LOS BENITEZ CON LAS COMIDAS, # 90 tablet, 1 Refills, Maintenance, 07/28/22 15:19:00 EDT, [facility], 160, cm, 06/11/22 14:31:00 EDT, Height Start Date: 07/28/22 Status: Ordered mirtazapine 7.5 mg oral tablet See Instructions, TOME NAZ TABLETA POR VIA ORAL AL ACOSTARSE, # 90 tablet, 3 Refills, [facility], 160, cm, 04/29/22 11:20:00 EDT, Height Start Date: 05/27/22 Status: Ordered montelukast 10 mg oral tablet See Instructions, TOME NAZ TABLETA POR VIA ORAL CADA NOCHE, # 90 tablet, Refills 3, Maintenance, 08/05/22 11:49:00 EDT, Instructions Replace Required Details, Route to Pharmacy Electronically, [facility], 160, cm, 06/11/22 14:31:00 EDT, Height Start Date: 08/05/22 Status: Ordered nabumetone 500 mg oral tablet See Instructions, TOME NAZ TABLETA POR VIA ORAL DOS VECES AL YAEL CUANDO SEA NECESARIO FOR KNEE PAIN, # 60 tablet, 1 Refills, Maintenance, 07/28/22 15:22:00 EDT, [facility], 160, cm, 06/11/22 14:31:00 EDT, Height Start [...] Refills, Maintenance, 07/30/22 16:26:00 EDT, [facility], 160, cm, 06/11/22 14:31:00 EDT, Height Start Date: 07/30/22 Status: Ordered predniSONE 10 mg oral tablet See Instructions, 1.5 tablet By Mouth Daily, # 45 tablet, 2 Refills, Maintenance, 01/05/22 14:14:00EST, [facility]/pharmacy #2071, Partial fill upon patient request if the prescription is for a schedule IIopioid drug., 160, cm, 01/05/22 13:54:00 EST, Height Start Date: 01/05/22 Status: Ordered predniSONE 10 mg oral tablet TOME NAZ TABLETA TODOS LOS D Start Date: 08/22/21 Status: Ordered Right [...] mL, 5 Refills, Maintenance, 05/18/22 9:43:00 EDT, [facility]/pharmacy #2071, 160, cm, 04/29/22 11:20:00 EDT, [...] Refills, Maintenance, 07/30/22 6:38:00 EDT, Powder, [facility], Partial fill upon patient request if theprescription [...] bronchial challenge 01-07 2x-ray 2013 stable, persistent 17028 x-ray, mild 4repeat 5 years 5Severe emphysema per pulmo note 05/18/13 6per colonoscopy 7PPD negative 04-26-08 8lung (lateral basal segment of the left lower lobe), per CT 01-18-2009 done at [facility] 9internal and external per 2011 colonoscopy 10urology consult written today 11per CT from [facility], associated with ureteral stone. mild left hydronephrosis 12Repeat stone Oct 2021, seeing urology 13per CT from [facility] , ER was notified 14not starting meds due to polypharmacy and comorbidities 15Followed by Pulm in [place], stability on repeat CT Chest Sep 2020 per their note 16New 10mm nodule LUNG-RADS 4B 09/20/19 17Followed by [place] [facility] 18on 2007 x-ray on 2009 x-ray [id number] DEXA: T-score lowest -3.7 21Rash developed 07/06/13 Social History Social History Type Response Smoking Status Former smoker; Other : per pt; entered on: 04/21/18 Sex Male Admission evaluation note * Kacie Brooke: PERFORM Event Display: Admission Note Authored Date: [id number] Note * Event Display: Non BH Lab Results Authored Date: * Event Display: [place] Nuclear Medicine, Non-BH Authored Date: * Event Display: Non BH Lab Results Authored Date: * Event Display: Non BH Lab Results Authored Date: * Event Display: Non BH Lab Results Authored Date: * Jovana Elias: PERFORM, SIGN, VERIFY Event Display: Patient Education/Instruction Authored Date: [facility] Clinical Summary Person Information Name MORALES MUELLER Age 67 Years 1945 12:00 AM PCP Marianne PRADO , [id number] Reason for Visit: Allergy Info: Nicotine Patch; varenicline; Proventil HFA; gabapentin; cephalexin Vital Signs Height Weight BMI Blood Pressure / Temperature Pulse Rate Respiratory Rate 02 Sat Mode of Delivery / Medication Information Albuterol (albuterol 0.083% inhalation solution) 3 mL, Inhalation, every 6 hours, label in Russian.Please stop all prior scripts for DuoNeb, thank you, 30 days, Refills: 11 Albuterol (albuterol CFC free 90 mcg/inh inhalation aerosol) 2 puffs, Inhalation, 4 times a day, VENTOLIN - pt strongly prefers Ventolin rather than Proair, thank you thank you. label in Russian, 30 days, As Needed, for wheezing, Refills: 1 Alendronate (alendronate 70 mg oral tablet) 1 tablet, Oral, every week, with 6 to 8 ounces of plainwater, at least 30 minutes before breakfast. label in Russian, 28 days, Refills: 1 amiTRIPTYLINE (amitriptyline 25 mg oral tablet) 1 tablet, Oral, Daily at Bedtime, Refills: 1 Aspirin (aspirin 81 mg oral enteric coated tablet) 1 tablet, Oral, Daily, label in Russian with food (may be best to hold while taking prednisone), 30 days, Refills: 11 Atorvastatin (atorvastatin 40 mg oral tablet) 1 tablet, Oral, Daily, Label in Russian, 30 days, Refills: 5 Capsaicin Topical (capsaicin topical 0.1% cream) 1 applicator, Topically, 3 times a day, Refills: 1 Cholecalciferol (cholecalciferol 400 iu oral tablet) 2 tablet, Oral, Daily, label in Russian, 30 days, Refills: 1 DiphenhydrAMINE (Benadryl 25 [...] taking once a day please label in Russian, 30 days, Refills: 11 Nabumetone (nabumetone 500 mg oral tablet) 2 tablet, Oral, Daily, with food, Refills: 1 Omeprazole (omeprazole 20 mg oral enteric coated tablet) 1 tablet, Oral, Daily in the morning, (do not crush or chew) label in Russian. use as LITTLE as possible to control [...] primary care provider, you may find a [facility] provider by calling [facility] [employer] at [phone]. Patient Education Information Follow-up Details: Patient Education Material: * Libertad Elias: PERFORM Event Display: Radiology Results Scanned Authored Date: * Event Display: Non BH Radiology Results Authored Date: * Jovana Elias: PERFORM Event Display: Radiology Results Scanned Authored Date: Patient Care team information Care Team Personnel Name: Luz Mccall NP Position: [facility] PCO Associate Professional Member Role: PCP Address: Address: [address] [place] [address]- Care Team Related Persons Name: STEVE LOPEZ Address: home [address] [place] [address] Name: MERLY ROBERSON Address: home [address] [place] [address] Name: MORALES MUELLER JR
--- OUTSIDE RECORDS SUMMARY | 2023-08-14 20:06 | XMS_ITS | Continuity of Care Document ---
Author Name Unknown Organization [facility] Address [address] [place] [address]- Care Team Providers Care Esl Instructor Name Role Phone Cal PRADO, Luz Simeon Primary Care Physician [phone] [facility]23 - 07/24/23 [facility] [address] [place] [address]- Attending Physician: Mook Gordon MD Admitting Physician: [...] and Recorded Vaccine Date Status Refusal Reason [id number] 12y+ bivalent booster vax 11/17/22 Given [id number] 12y+ bivalent booster vax 10/16/22 Given influenza [...] (oldterm) 12 10/08/06 Given 1Result Comment: [09/24/2017] [facility] [id number] 2Admin Note: VIS 7- 3Admin Note: VIS given 06/23/11, tristanian form 4Admin Note: VIS GIVEN 07/08/10 tristanian 5Result Comment: [04/02/2016] VIS in Citizen [place] given 6Admin Note: sep 06 7Admin Note: vis given in Citizen [place] 8Admin Note: VIS given in [place] 9Admin Note: VIS IN GREENLAND[place] 10Admin Note: VIS in tristanian 11Admin Note: VIS-GIVEN 12Admin Note: VIS-GIVEN Medications [...] 9:26:00 EDT, Aerosol, Route to Pharmacy Electronically, [id number], [facility]/pharmacy #[id number], 158.3, cm, 03/15/23 9... Start Date: 03/15/23 Status: Ordered albuterol-ipratropium 3 mg-0.5 mg/3 ml inhalation solution 1 vials, Inhalation, 4 times a day, Dx: COPD J44.9, Asthma J45.998, Lung Cancer C34.00 Sig: use every 6hr as needed for cough, SOB, wheezing, # 100 each, 11 Refills, 10/16/22 16:16:00 EST, [facility]/pharmacy #207, 1 vials Inhalation 4 times a [...] the battery on the one hegot in [facility]?, Supply, 158.3, cm, 06/28/23 13:1... Start Date: 06/28/23 Status: Ordered calcium (as citrate)-vitamin D 315 mg-250 intl units oral tablet 1 tablet, By Mouth, 2 times a day, # 180 tablet, 6 Refills, Maintenance, 07/15/23 19:14:00 EDT, Tablet, [facility]/pharmacy #[id number], Partial fill upon patient request if the prescription is for a schedule II opioid drug., 1 tablet By Mouth 2 times a day, 158.3... Start Date: 07/15/23 Status: Ordered Daily Leslie oral tablet See Instructions, TOME NAZ TABLETA TODOS LOS BENITEZ (NONFORMULARY), # 90 tablet, 1 Refills, Maintenance, 01/27/23 14:13:00 EST, [facility], 90, TOME NAZ TABLETA TODOS LOS BENITEZ (NONFORMULARY), 158.3, cm, 01/07/23 13:42:00 EST, Height Start Date: 01/27/23 Status: Ordered diclofenac 1% topical gel 1 application, Topically, 4 times a day, # 100 Gm, 0 Refills, Maintenance, 06/24/23 12:02:00 EDT, Gel, [facility]/pharmacy #[id number], Partial fill upon patient request if the prescription is for a schedule II opioid drug., 158.3, cm, 05/19/23 14:14:00 EDT, Height Start Date: 06/24/23 Status: Ordered duloxetine 30 mg oral enteric coated capsule See Instructions, TOME NAZ CAPSULA POR VIA ORAL TODOS LOS BENITEZ DON'T CRUSH OR CHEW NEEDED FOR PAIN, # 90 capsule, 1 Refills, [facility], 160, cm, 06/11/22 14:31:00 EDT, Height Start [...] 11 Refills, Maintenance, 07/01/23 11:12:00 EDT, Film, [facility]/pharmacy #[id number], Partial fill upon patient request if the prescription is for a schedule II opioid drug. For Cancer... Start Date: 07/01/23 Status: Ordered metFORMIN 500 mg oral tablet See Instructions, TOME NAZ TABLETA POR VIA ORAL TODOS LOS BENITEZ CON LAS COMIDAS, # 90 tablet, 1 Refills, Maintenance, 01/27/23 14:13:00 EST, [facility], 158.3, cm, 01/07/23 13:42:00 EST, Height Start [...] Details, Route to Pharmacy Electronically, [facility], 160, cm, 06/11/22 14:31:00 EDT, Height Start [...] Acute 10/14/23 12:00:00 EST, 06/24/23 12:00:00 EDT, [facility]/pharmacy #[id number], Partial fill upon [...] 06/23/23 10:49:00 EDT, Route to Pharmacy Electronically, [facility]/pharmacy #[id number], Partial fill upon [...] 2 Refills, Maintenance, 06/24/23 13:25:00EDT, CR Tablet, [facility]/pharmacy #[id number], Partial fill upon patient request if the prescription is for a schedule II opioid drug., 158.3, cm, 05/19/23 14:14:... Start Date: 06/24/23 Status: Ordered Trelegy Ellipta 200 mcg-62.5 mcg-25 mcg/inh inhalation powder 1 puffs, Inhalation, Daily, at the same time every day, # 60 each, 3 Refills, Maintenance, 06/24/2311:55:00 EDT, Powder, [facility]/pharmacy #2071, Partial [...] 0 Refills, Maintenance, 06/24/23 13:26:00 EDT, Tablet, [facility]/pharmacy #[id number], Partial fill upon [...] bronchial challenge 01-07 2x-ray 2013 stable, persistent 82111 x-ray, mild 4repeat 5 years 5Severe emphysema per pulmo note 05/18/13 6per colonoscopy 7PPD negative 04-26-08 8lung (lateral basal segment of the left lower lobe), per CT 01-18-2009 done at [facility] 9internal and external per 2011 colonoscopy 10urology consult written today 11per CT from [facility], associated with ureteral stone. mild left hydronephrosis 12Repeat stone Oct 2021, seeing urology 13per CT from [facility] , ER was notified 14not starting meds due to polypharmacy and comorbidities 15Followed by Pulm in [place], stability on repeat CT Chest Sep 2020 per their note 16New 10mm nodule LUNG-RADS 4B 09/20/19 17Followed by [place] [facility] [place] 182007 x-ray 2009 x-ray [id number] DEXA: T-score lowest -3.7 21Rash developed 07/06/13 Social History Social History Type Response Smoking Status Former smoker; Other : per pt; entered on: 04/21/18 Sex Male Patient Care team information Care Team Personnel Name: Luz Mccall NP Position: [facility] PCO Associate Professional Member Role: PCP Address: Address: [address] [place] [address] [place] [address]- Care Team Related Persons Name: STEVE LOPEZ Address: home [address] [place] [address] Name: MERLY ROBERSON Address: home [address] [place] [address] Name: MORALES MUELLER JR
--- OUTSIDE RECORDS SUMMARY | 2023-08-14 20:06 | XMS_ITS | Continuity of Care Document ---
Author Name Unknown Organization [facility] Address [address] [place] [address]- Care Team Providers Care Technical Spec Name Role Phone Cal PERINATAL INSTRUCTOR, Luz Simeon Primary Care Physician [facility]): 07[facility]23 - 08/11/23 [facility] [address] [place] [address]- Allergies, Adverse Reactions, Alerts Substance Reaction Severity [...] and Recorded Vaccine Date Status Refusal Reason [id number] 12y+ bivalent booster vax 11/17/22 Given [id number] 12y+ bivalent booster vax 10/16/22 Given influenza [...] (oldterm) 12 10/08/06 Given 1Result Comment: [09/24/2017] [facility] [id number] 2Admin Note: VIS 7- 3Admin Note: VIS given 06/23/11, slovak form 4Admin Note: VIS GIVEN 07/08/10 slovak 5Result Comment: [04/02/2016] VIS in Maltese given 6Admin Note: sep 06 7Admin Note: vis given in Maltese 8Admin Note: VIS given in Maltese 9Admin Note: VIS IN TAM[place] 10Admin Note: VIS in slovak 11Admin Note: VIS-GIVEN 12Admin Note: VIS-GIVEN Medications albuterol CFC free 90 mcg/inh inhalation aerosol 1, puffs, Inhalation, 4 times a day, PRN, dx: J45.909, # 1 each, Refills 11, Tot. Refills 11, Maintenance, 03/15/23 9:26:00 EDT, Aerosol, Route to Pharmacy Electronically, [id number], [facility]/pharmacy #2071, 158.3, cm, 03/15/23 9... Start Date: 03/15/23 Status: Ordered albuterol-ipratropium 3 mg-0.5 mg/3 ml inhalation solution 1 vials, Inhalation, 4 times a day, Dx: COPD J44.9, Asthma J45.998, Lung Cancer C34.00 Sig: use every 6hr as needed for cough, SOB, wheezing, # 100 each, 11 Refills, 10/16/22 16:16:00 EST, [facility]/pharmacy #2071, 1 vials Inhalation 4 times a day,Instr:Dx... Start Date: 10/16/22 Status: Ordered calcium (as citrate)-vitamin D 315 mg-250 intl units oral tablet 1 tablet, By Mouth, 2 times a day, # 180 tablet, 6 Refills, Maintenance, 07/15/23 19:14:00 EDT, Tablet, [facility], Partial fill upon patient request if the prescription is for a schedule II opioid drug., 1 tablet By Mouth 2 times a day, 158.3... Start Date: 07/15/23 Status: Ordered Daily Leslie oral tablet See Instructions, TOME NAZ TABLETA TODOS LOS BENITEZ (NONFORMULARY), # 90 tablet, 1 Refills, Maintenance, 01/27/23 14:13:00 EST, [facility] STORE 934[facility], 90, TOME NAZ TABLETA TODOS LOS BENITEZ [...] duloxetine 30 mg oral enteric coated capsule 1 capsule = 30 mg, By Mouth, Daily, # 90 capsule, 3 Refills, 08/09/23 11:49:00 EDT, [id number], 158.3, cm, 08/09/23 11:09:00 EDT, Height Start Date: 08/09/23 Status: Ordered FREESTYLE LITE TEST STRIP FREESTYLE [...] 11 Refills, Maintenance, 07/01/23 11:12:00 EDT, Film, [id number], Partial fill upon patient request if the prescription is for a schedule II opioid drug. For Cancer... Start Date: 07/01/23 Status: Ordered metFORMIN 500 mg oral tablet See Instructions, TOME NAZ TABLETA POR VIA ORAL TODOS LOS BENITEZ CON LAS COMIDAS, # 90 tablet, 1 Refills, Maintenance, 01/27/23 14:13:00 EST, [facility], 158.3, cm, 01/07/23 13:42:00 EST, Height Start Date: 01/27/23 Status: Ordered mirtazapine 7.5 mg oral tablet See Instructions, TOME NAZ TABLETA POR VIA ORAL AL ACOSTARSE, # 90 tablet, 3 Refills, 06/24/23 13:24:00 EDT, [facility], 158.3, cm, 05/19/23 14:14:00 EDT, Height Start Date: 06/24/23 Status: Ordered nabumetone 500 mg oral tablet See Instructions, TOME NAZ TABLETA POR VIA ORAL DOS VECES AL YAEL CUANDO SEA NECESARIO POR DOLOR, # 60 tablet, 1 Refills, Maintenance, 06/23/23 8:44:00 EDT, [facility], 158.3, cm, 05/19/23 14:14:00 EDT, Height Start Date: 06/23/23 Status: Ordered omeprazole 20 mg oral enteric coated capsule See Instructions, TOME NAZ CAPSULA TOLAKSHMI HUSSEIN BENITEZ, # 90 capsule, 3 Refills, Maintenance, 06/24/23 13:25:00 EDT, [facility]/pharmacy #1, 158.3, cm, 05/19/23 14:14:00 EDT, Height Start Date: 06/24/23 Status: Ordered oxyCODONE 5 mg oral tablet 5 mg, 1, tablet, By Mouth, 2 times a day, # 56 tablet, Refills 0, Tot. Refills 0, Maintenance, 06/23/23 10:49:00 EDT, Route to Pharmacy Electronically, [facility]/pharmacy #[id number], Partial fill upon patient request if the prescription is for a schedule II opio... Start Date: 06/23/23 Stop Date: 07/21/23 Status: Ordered predniSONE 20 mg oral tablet TOME NAZ TABLETA TOS LOS D Start Date: 08/09/23 Status: Ordered Testosterone Cypionate 200 mg/mL intramuscular solution See Instructions, INJECT 0.5 (HALF) ML INTRAMUSCULARLY EVERY 14 DAYS, # 2 mL, 5 Refills, Maintenance, 07/15/23 19:17:00 EDT, [facility]/pharmacy #1, 158.3, cm, 07/15/23 13:19:00 EDT, Height Start Date: 07/15/23 Status: Ordered theophylline 400 mg/24 hours oral tablet, extended release TOME NAZ TABLETA POR V A ORAL EVERY 24 HOURS Start Date: 08/09/23 Status: Ordered Trelegy Ellipta 200 mcg-62.5 mcg-25 mcg/inh inhalation powder 1 puffs, Inhalation, Daily, at the same time every day, # 60 each, 3 Refills, Maintenance, 06/24/2311:55:00 EDT, Powder, [facility], Partial fill upon patient request if the prescription is for a schedule II opioid drug., 1 puffs Inhalation D... Start Date: 06/24/23 Stop Date: 10/22/23 Status: Ordered Tylenol Extra Strength 500 mg oral tablet 1 tablet = 500 mg, By Mouth, Every 6 hours, PRN as needed for pain, # 100 tablet, 0 Refills, Maintenance, 06/24/23 13:26:00 EDT, Tablet, [facility], Partial fill upon patient request if the prescription is for a schedule II opioid drug., 158.3... Start Date: 06/24/23 Status: Ordered Vitamin D3 1000 intl units [...] Active Underweight Confirmed Active 1positive bronchial challenge 2-09 2x-ray 2013 stable, persistent 12153 x-ray, mild 4repeat 5 years 5Severe emphysema per pulmo note 05/18/13 6per colonoscopy 7PPD negative 04-26-08 8lung (lateral basal segment of the left lower lobe), per CT 01-18-2009 done at [facility] 9internal and external per 2011 colonoscopy 10urology consult written today 11per CT from [facility], associated with ureteral stone. mild left hydronephrosis 12Repeat stone Oct 2021, seeing urology 13per CT from [facility] , ER was notified 14not starting meds due to polypharmacy and comorbidities 15Followed by Pulm in [place], stability on repeat CT Chest Sep 2020 per their note 16New 10mm nodule LUNG-RADS 4B 09/20/19 17Followed by [place] [facility] 18on 2007 x-ray 2009 x-ray [id number] DEXA: T-score lowest -3.7 21Rash developed 07/06/13 Social History Social History Type Response Smoking Status Former smoker; Other : per pt; entered on: 04/21/18 Sex Male Patient Care team information Care Team Personnel Name: Luz Mccall NP Position: [facility] PCO Associate Professional Member Role: PCP Address: Address: [address] [place] [address] [place] [address]- Care Team Related Persons Name: STEVE LOPEZ Address: home [address] [place] [address] Name: MERLY ROBERSON Address: home [address] [place] [address] Name: MORALES MUELLER JR
--- OUTSIDE RECORDS SUMMARY | 2023-08-14 20:07 | XMS_ITS | Continuity of Care Document ---
Author Name Unknown Organization [facility] Address [address] [place] [address]- Care Team Providers Care Government Gauger Name Role Phone Cal PRADO, Luz Simeon Primary Care Physician [facility]23 - 05/30/23 [facility] [address] [place] [address]- Attending Physician: Not on Staff, Attending MD [...] and Recorded Vaccine Date Status Refusal Reason [id number] 12y+ bivalent booster vax 11/17/22 Given [id number] 12y+ bivalent booster vax 10/16/22 Given influenza [...] (oldterm) 12 10/08/06 Given 1Result Comment: [09/24/2017] [facility] [id number] 2Admin Note: VIS 7- 3Admin Note: VIS given 06/23/11, palauan form 4Admin Note: VIS GIVEN 07/08/10 palauan 5Result Comment: [04/02/2016] VIS in Emirati given 6Admin Note: sep 06 7Admin Note: vis given in Emirati 8Admin Note: VIS given in Emirati 9Admin Note: VIS IN DOMINICAN 10Admin Note: VIS in palauan 11Admin Note: VIS-GIVEN 12Admin Note: VIS-GIVEN Medications [...] 9:26:00 EDT, Aerosol, Route to Pharmacy Electronically, [id number], [facility]/pharmacy #2071, 158.3, cm, 03/15/23 9... Start Date: 03/15/23 Status: Ordered albuterol-ipratropium 3 mg-0.5 mg/3 ml inhalation solution 1 vials, Inhalation, 4 times a day, Dx: COPD J44.9, Asthma J45.998, Lung Cancer C34.00 Sig: use every 6hr as needed for cough, SOB, wheezing, # 100 each, 11 Refills, 10/16/22 16:16:00 EST, [facility]/pharmacy #2071, 1 vials Inhalation 4 [...] 6 Refills, Maintenance, 01/08/23 10:53:00 EST, Tablet, [facility]/pharmacy #2071, Partial fill upon patient request if the prescription is for a schedule II opioid drug., 1 tablet By Mouth 2 times a day, 158.3... Start Date: 01/08/23 Status: Ordered Daily Leslie oral tablet See Instructions, TOME NAZ TABLETA TODOS LOS BENITEZ (NONFORMULARY), # 90 tablet, 1 Refills, Maintenance, 01/27/23 14:13:00 EST, [facility] STORE 68422, 90, TOME NAZ TABLETA TODOS LOS BENITEZ (NONFORMULARY), 158.3, cm, 01/07/23 13:42:00 EST, Height Start Date: 01/27/23 Status: Ordered duloxetine 30 mg oral enteric coated capsule See Instructions, TOME NAZ CAPSULA POR VIA ORAL TODOS LOS BENITEZ DON'T CRUSH OR CHEW NEEDED FOR PAIN, # 90 capsule, 1 Refills, [facility], 160, cm, 06/11/22 14:31:00 EDT, Height Start [...] 1 Refills, Maintenance, 03/16/23 12:53:00 EDT, Tablet, [facility]/pharmacy #2071, Partial fill upon patient request if the prescription is for a schedule II opioid drug. Dose reduction February 2023, 158.3, cm, 0... Start Date: 03/16/23 Status: Ordered lidocaine 5% topical cream 1 application, Topically, 3 times a day, PRN Pain , Mild, # 45 Gm, 11 Refills, Maintenance, 05/12/23 16:31:00 EDT, Cream, [facility]/pharmacy #2071, Partial fill upon patient request if the prescription is for a schedule II opioid drug., 1 application Topica... Start Date: 05/12/23 Status: Ordered metFORMIN 500 mg oral tablet See Instructions, TOME NAZ TABLETA POR VIA ORAL TODOS LOS BENITEZ CON LAS COMIDAS, # 90 tablet, 1 Refills, Maintenance, 01/27/23 14:13:00 EST, [facility], 158.3, cm, 01/07/23 13:42:00 EST, Height Start Date: 01/27/23 Status: Ordered mirtazapine 7.5 mg oral tablet See Instructions, TOME NAZ TABLETA POR VIA ORAL AL ACOSTARSE, # 90 tablet, 3 Refills, [facility], 160, cm, 04/29/22 11:20:00 EDT, Height Start Date: 05/27/22 Status: Ordered montelukast 10 mg oral tablet See Instructions, TOME NAZ TABLETA POR VIA ORAL CADA NOCHE, # 90 tablet, Refills 3, Maintenance, 08/05/22 11:49:00 EDT, Instructions Replace Required Details, Route to Pharmacy Electronically, [facility], 160, cm, 06/11/22 14:31:00 EDT, Height Start Date: 08/05/22 Status: Ordered nabumetone 500 mg oral tablet See Instructions, TOME NAZ TABLETA POR VIA ORAL DOS VECES AL YAEL CUANDO SEA NECESARIO POR DOLOR, # 60 tablet, 1 Refills, Maintenance, 03/15/23 9:30:00 EDT, [facility]/pharmacy #2071, 158.3, cm, 03/15/23 9:09:00 EDT, Height [...] capsule See Instructions, TOME NAZ CAPSULA TODOS HUSSEIN BENITEZ, # 90 capsule, 3 Refills, Maintenance, 07/30/22 16:26:00 EDT, [facility], 160, cm, 06/11/22 14:31:00 EDT, Height Start [...] tablet, 6 Refills, Maintenance, 01/08/23 10:54:00 EST, [facility], 158.3, cm, 01/07/23 13:42:00 [...] bronchial challenge 01-07 2x-ray 2013 stable, persistent 10562 x-ray, mild 4repeat 5 years 5Severe emphysema per pulmo note 05/18/13 6per 7-2011 colonoscopy 7PPD negative 04-26-08 8lung (lateral basal segment of the left lower lobe), per CT 01-18-2009 done at [facility] 9internal and external per 2011 colonoscopy 10urology consult written today 11per CT from [facility], associated with ureteral stone. mild left hydronephrosis 12Repeat stone Oct 2021, seeing urology 13per CT from [facility] , ER was notified 14not starting meds due to polypharmacy and comorbidities 15Followed by Pulm in [place], stability on repeat CT Chest Sep 2020 per their note 16New 10mm nodule LUNG-RADS 4B 09/20/19 17Followed by [place] [facility] 18on 2007 x-ray 2009 x-ray [id number] DEXA: T-score lowest -3.7 21Rash developed 07/06/13 Social History Social History Type Response Smoking Status Former smoker; Other : per pt; entered on: 04/21/18 Sex Male Patient Care team information Care Team Personnel Name: Luz Mccall NP Position: [facility] PCO Associate Professional Member Role: PCP Address: Address: [address] [place] [address] [place] [address]- Care Team Related Persons Name: STEVE LOPEZ Address: home [address] [place] [address] Name: MERLY ROBERSON Address: home [address] [place] [address] Name: MORALES MUELLER JR
--- OUTSIDE RECORDS SUMMARY | 2023-08-14 20:07 | XMS_ITS | Continuity of Care Document ---
Author Name Unknown Organization [facility] Address [address] [place] [address]- Care Team Providers Care Security Consultant Name Role Phone Cal SIGNALMAN, Luz Simeon Primary Care Physician [phone] [facility] 11/26/22 - 12/26/22 [facility] [address] [place] [address]- Allergies, Adverse Reactions, Alerts Substance Reaction Severity Status doxycycline dizziness Active cephalexin rash Active gabapentin altered mental state Active Proventil HFA Nausea Active traMADol Active Nicotine Patch 1 Bronchospasm Nausea Dizzy Active varenicline C/O: itching Nausea Insomnia Active 1see general med office note 4-3-09; pt reports bronchospasm/shortness of breath & palpitations within 5 minutes of putting on 14 patch that immediately went away after taking off patch Immunizations Given and Recorded Vaccine Date Status Refusal Reason [id number] 12y+ bivalent booster vax 11/17/22 Given [id number] 12y+ bivalent booster vax 10/16/22 Given influenza [...] Given 1Result Comment: [09/24/2017] [facility] [id number] 2Admin Note: VIS 7- 3Admin Note: VIS given 06/23/11, belizean form 4Admin Note: VIS GIVEN 07/08/10 belizean 5Result Comment: [04/02/2016] VIS in Hong Konger given 6Admin Note: sep 06 7Admin Note: vis given in Hong Konger 8Admin Note: VIS given in [place] Konger 9Admin Note: VIS IN PALAUAN 10Admin Note: VIS in belizean 11Admin Note: VIS-GIVEN 12Admin Note: VIS-GIVEN Medications albuterol-ipratropium 3 mg-0.5 mg/3 ml inhalation solution 1 vials, Inhalation, 4 times a day, Dx: COPD J44.9, Asthma J45.998, Lung Cancer C34.00 Sig: use every 6hr as needed for cough, SOB, wheezing, # 100 each, 11 Refills, 10/16/22 16:16:00 EST, [facility]/pharmacy #[id number], 1 vials Inhalation 4 times a day,Instr:Dx... [...] Refills, Maintenance, 07/28/22 15:19:00 EDT, [facility], 90, TOME NAZ TABLETA TODOS LOS BENITEZ (NONFORMULARY), 160,cm, 06/11/22 14:31:00 EDT, Height Start Date: 07/28/22 Status: Ordered duloxetine 30 mg oral enteric coated capsule See Instructions, TOME NAZ CAPSULA POR VIA ORAL TODOS LOS BENITEZ DON'T CRUSH OR CHEW NEEDED FOR PAIN, # 90 capsule, 1 Refills, [facility], 160, cm, 06/11/22 14:31:00 EDT, Height Start [...] 3 Refills, Maintenance, 04/29/22 11:58:00 EDT, Tablet, [facility]/pharmacy #[id number], dose change 09/10/20, 160, cm, 04/29/22 11:20:00 EDT, Height Start Date: 04/29/22 Status: Ordered metFORMIN 500 mg oral tablet See Instructions, TOME NAZ TABLETA POR VIA ORAL TODOS LOS BENITEZ CON LAS COMIDAS, # 90 tablet, 1 Refills, Maintenance, 07/28/22 15:19:00 EDT, [facility], 160, cm, 06/11/22 14:31:00 EDT, Height Start Date: 07/28/22 Status: Ordered mirtazapine 7.5 mg oral tablet See Instructions, TOME NAZ TABLETA POR VIA ORAL AL ACOSTARSE, # 90 tablet, 3 Refills, [facility], 160, cm, 04/29/22 11:20:00 EDT, Height Start Date: 05/27/22 Status: Ordered montelukast 10 mg oral tablet See Instructions, TOME NAZ TABLETA POR VIA ORAL CADA NOCHE, # 90 tablet, Refills 3, Maintenance, 08/05/22 11:49:00 EDT, Instructions Replace Required Details, Route to Pharmacy Electronically, [facility], 160, cm, 06/11/22 14:31:00 EDT, Height Start Date: 08/05/22 Status: Ordered nabumetone 500 mg oral tablet See Instructions, TOME NAZ TABLETA POR VIA ORAL DOS VECES AL YAEL CUANDO SEA NECESARIO FOR KNEE PAIN, # 60 tablet, 1 Refills, Maintenance, 07/28/22 15:22:00 EDT, [facility], 160, cm, 06/11/22 14:31:00 EDT, Height Start [...] Refills, Maintenance, 07/30/22 16:26:00 EDT, [facility], 160, cm, 06/11/22 14:31:00 EDT, Height Start Date: 07/30/22 Status: Ordered predniSONE 10 mg oral tablet See Instructions, 1.5 tablet By Mouth Daily, # 45 tablet, 2 Refills, Maintenance, 01/05/22 14:14:00EST, [facility]/pharmacy #[id number], Partial fill upon patient request [...] Refills, Maintenance, 07/30/22 6:38:00 EDT, Powder, [facility], Partial fill upon patient request if theprescription [...] abuse Confirmed 1960 Active 1positive bronchial challenge 2- 2x-ray 2013 stable, persistent 00077 x-ray, mild 4repeat 5 years 5Severe emphysema per pulmo note 05/18/13 6per 7-2011 colonoscopy 7PPD negative 04-26-08 8lung (lateral basal segment of the left lower lobe), per CT 01-18-2009 done at [facility] 9internal and external per 2011 colonoscopy 10urology consult written today 11per CT from [facility], associated with ureteral stone. mild left hydronephrosis 12Repeat stone Oct 2021, seeing urology 13per CT from [facility] , ER was notified 14not starting meds due to polypharmacy and comorbidities 15Followed by Pulm in [place], stability on repeat CT Chest Sep 2020 per their note 16New 10mm nodule LUNG-RADS 4B 09/20/19 17Followed by [place] [facility] [place] 18on 2007 x-ray 2009 x-ray [id number] DEXA: T-score lowest -3.7 21Rash developed 07/06/13 Social History Social History Type Response Smoking Status Former smoker; Other : per pt; entered on: 04/21/18 Sex Male Patient Care team information Care Team Personnel Name: Cal PRADO, Luz Simeon Position: [facility] PCO Associate Professional Member Role: PCP Address: Address: [address] [place] [address] [place] [address]- Care Team Related Persons Name: STEVE LOPEZ Address: home [address] [place] [address] Name: MERLY ROBERSON Address: home [address] [place] [address] Name: MORALES MUELLER JR
--- OUTSIDE RECORDS SUMMARY | 2023-08-14 20:07 | XMS_ITS | Continuity of Care Document ---
Author Name Unknown Organization [facility] Address [address] [place] [address]- Care Team Providers Care Farm Planner Name Role Phone Cal PRADO, Luz Simeon Primary Care Physician [phone] [facility] 03[facility]23 - 04/14/23 [facility] [address] [place] [address]- Attending Physician: Latasha Dumont Admitting Physician: AdmLatasha garrison Referring Physician: Admtr, Ar8 Allergies, Adverse Reactions, Alerts Substance Reaction Severity Status doxycycline dizziness Active cephalexin rash Active traMADol Active gabapentin altered mental state Active Proventil HFA Nausea Active Nicotine Patch 1 Bronchospasm Nausea Dizzy Active varenicline C/O: itching Nausea Insomnia Active 1see general med office note 4-3-09; pt reports bronchospasm/shortness of breath & palpitations within 5 minutes of putting on 14 patch that immediately went away after taking off patch Immunizations Given and Recorded Vaccine Date Status Refusal Reason [id number] 12y+ bivalent booster vax 11/17/22 Given [id number] 12y+ bivalent booster vax 10/16/22 Given influenza [...] (oldterm) 12 10/08/06 Given 1Result Comment: [09/24/2017] [facility] [id number] 2Admin Note: VIS 7- 3Admin Note: VIS given 06/23/11, citizen of [place] form 4Admin Note: VIS GIVEN 07/08/10 citizen of [place] 5Result Comment: [04/02/2016] VIS in Cameroonian given 6Admin Note: sep 06 7Admin Note: vis given in Cameroonian 8Admin Note: VIS given in Cameroonian 9Admin Note: VIS IN [place] 10Admin Note: VIS in citizen of [place] 11Admin Note: VIS-GIVEN 12Admin Note: VIS-GIVEN Medications [...] 9:26:00 EDT, Aerosol, Route to Pharmacy Electronically, [id number], [facility]/pharmacy #[id number], 158.3, cm, 03/15/23 9... Start Date: 03/15/23 Status: Ordered albuterol-ipratropium 3 mg-0.5 mg/3 ml inhalation solution 1 vials, Inhalation, 4 times a day, Dx: COPD J44.9, Asthma J45.998, Lung Cancer C34.00 Sig: use every 6hr as needed for cough, SOB, wheezing, # 100 each, 11 Refills, 10/16/22 16:16:00 EST, [facility]/pharmacy #[id number], 1 vials Inhalation 4 times [...] 6 Refills, Maintenance, 01/08/23 10:53:00 EST, Tablet, [facility]/pharmacy #2071, Partial fill upon patient request if the prescription is for a schedule II opioid drug., 1 tablet By Mouth 2 times a day, 158.3... Start Date: 01/08/23 Status: Ordered Daily Leslie oral tablet See Instructions, TOME NAZ TABLETA TODOS LOS BENITEZ (NONFORMULARY), # 90 tablet, 1 Refills, Maintenance, 01/27/23 14:13:00 EST, [facility], 90, TOME NAZ TABLETA TODOS LOS BENITEZ (NONFORMULARY), 158.3, cm, 01/07/23 13:42:00 EST, Height Start Date: 01/27/23 Status: Ordered duloxetine 30 mg oral enteric coated capsule See Instructions, TOME NAZ CAPSULA POR VIA ORAL TODOS LOS BENITEZ DON'T CRUSH OR CHEW NEEDED FOR PAIN, # 90 capsule, 1 Refills, [facility], 160, cm, 06/11/22 14:31:00 EDT, Height Start [...] 1 Refills, Maintenance, 03/16/23 12:53:00 EDT, Tablet, [facility]/pharmacy #7511, Partial fill upon patient request if the prescription is for a schedule II opioid drug. Dose reduction February 2023, 158.3, cm, 0... Start Date: 03/16/23 Status: Ordered metFORMIN 500 mg oral tablet See Instructions, TOME NAZ TABLETA POR VIA ORAL TODOS LOS BENITEZ CON LAS COMIDAS, # 90 tablet, 1 Refills, Maintenance, 01/27/23 14:13:00 EST, [facility], 158.3, cm, 01/07/23 13:42:00 EST, Height Start Date: 01/27/23 Status: Ordered mirtazapine 7.5 mg oral tablet See Instructions, TOME NAZ TABLETA POR VIA ORAL AL ACOSTARSE, # 90 tablet, 3 Refills, [facility], 160, cm, 04/29/22 11:20:00 EDT, Height Start Date: 05/27/22 Status: Ordered montelukast 10 mg oral tablet See Instructions, TOME NZA TABLETA POR VIA ORAL CADA NOCHE, # 90 tablet, Refills 3, Maintenance, 08/05/22 11:49:00 EDT, Instructions Replace Required Details, Route to Pharmacy Electronically, [facility], 160, cm, 06/11/22 14:31:00 EDT, Height Start Date: 08/05/22 Status: Ordered nabumetone 500 mg oral tablet See Instructions, TOME NAZ TABLETA POR VIA ORAL DOS VECES AL YAEL CUANDO SEA NECESARIO POR DOLOR, # 60 tablet, 1 Refills, Maintenance, 03/15/23 9:30:00 EDT, [id number], 158.3, cm, 03/15/23 9:09:00 EDT, Height [...] Refills, Maintenance, 07/30/22 16:26:00 EDT, [facility], 160, cm, 06/11/22 14:31:00 EDT, Height Start [...] tablet, 6 Refills, Maintenance, 01/08/23 10:54:00 EST, [facility]/pharmacy #2071, 158.3, cm, 01/07/23 13:42:00 EST, [...] bronchial challenge 01-07 2x-ray 2013 stable, persistent 68472 x-ray, mild 4repeat 5 years 5Severe emphysema per pulmo note 05/18/13 6per -2011 colonoscopy 7PPD negative 04-26-08 8lung (lateral basal segment of the left lower lobe), per CT 01-18-2009 done at [facility] 9internal and external per 2011 colonoscopy 10urology consult written today 11per CT from [facility], associated with ureteral stone. mild left hydronephrosis 12Repeat stone Oct 2021, seeing urology 13per CT from [facility] , ER was notified 14not starting meds due to polypharmacy and comorbidities 15Followed by Pulm in [place], stability on repeat CT Chest Sep 2020 per their note 16New 10mm nodule LUNG-RADS 4B 09/20/19 17Followed by [place] [facility] [place] 2007 x-ray 2009 x-ray [id number] DEXA: T-score lowest -3.7 21Rash developed 07/06/13 Social History Social History Type Response Smoking Status Former smoker; Other : per pt; entered on: 04/21/18 Sex Male Admission evaluation note * Kacie Brooke: PERFORM Event Display: Admission Note Authored Date: Laboratory * Event Display: Non BH Lab Results Authored Date: * Event Display: Non BH Lab Results Authored Date: * Event Display: Non BH Lab Results Authored Date: * Event Display: Non BH Lab Results Authored Date: Radiology * Event Display: [place] Nuclear Medicine, Non-BH Authored Date: * Libertad Elias: PERFORM Event Display: Radiology Results Scanned Authored Date: * Event Display: Non BH Radiology Results Authored Date: * Jovana Elias: PERFORM Event Display: Radiology Results Scanned Authored Date: Note * Jovana Elias: PERFORM, SIGN, VERIFY Event Display: Patient Education/Instruction Authored Date: [facility] Clinical Summary Person Information Name MORALES MUELLER Age 67 Years 1945 12:00 AM PCP Marianne PRADO , Luz Simeon PCP [facility]# [id number] Reason for Visit: Allergy Info: Nicotine Patch; varenicline; Proventil HFA; gabapentin; cephalexin Vital Signs Height Weight BMI Blood Pressure / Temperature Pulse Rate Respiratory Rate 02 Sat Mode of Delivery / Medication Information Albuterol (albuterol 0.083% inhalation solution) 3 mL, Inhalation, every 6 hours, label in Cameroonian.Please stop all prior scripts for DuoNeb, thank you, 30 days, Refills: 11 Albuterol (albuterol CFC free 90 mcg/inh inhalation aerosol) 2 puffs, Inhalation, 4 times a day, VENTOLIN - pt strongly prefers Ventolin rather than Proair, thank you thank you. label in Cameroonian, 30 days, As Needed, for wheezing, Refills: 1 Alendronate (alendronate 70 mg oral tablet) 1 tablet, Oral, every week, with 6 to 8 ounces of plainwater, at least 30 minutes before breakfast. label in Cameroonian, 28 days, Refills: 1 amiTRIPTYLINE (amitriptyline 25 mg oral tablet) 1 tablet, Oral, Daily at Bedtime, Refills: 1 Aspirin (aspirin 81 mg oral enteric coated tablet) 1 tablet, Oral, Daily, label in Cameroonian with food (may be best to hold while taking prednisone), 30 days, Refills: 11 Atorvastatin (atorvastatin 40 mg oral tablet) 1 tablet, Oral, Daily, Label in Cameroonian, 30 days, Refills: 5 Capsaicin Topical (capsaicin topical 0.1% cream) 1 applicator, Topically, 3 times a day, Refills: 1 Cholecalciferol (cholecalciferol 400 iu oral tablet) 2 tablet, Oral, Daily, label in Cameroonian, 30 days, Refills: 1 DiphenhydrAMINE (Benadryl 25 [...] taking once a day please label in Cameroonian, 30 days, Refills: 11 Nabumetone (nabumetone 500 mg oral tablet) 2 tablet, Oral, Daily, with food, Refills: 1 Omeprazole (omeprazole 20 mg oral enteric coated tablet) 1 tablet, Oral, Daily in the morning, (do not crush or chew) label in Cameroonian. use as LITTLE as possible to control [...] primary care provider, you may find a [facility] provider by calling [facility] ePAR [facility] at [phone]. Patient Education Information Follow-up Details: Patient Education Material: Patient Care team information Care Team Personnel Name: Cal PRADO, Luz Simeon Position: [facility] PCO Associate Professional Member Role: PCP Address: Address: [address] [place] [address]- Care Team Related Persons Name: STEVE LOPEZ Address: home [address] [place], [place] Name: MERLY ROBERSON Address: home [address] [place], [place] Name: MORALES MUELLER JR
--- OUTSIDE RECORDS SUMMARY | 2023-08-14 20:07 | XMS_ITS | Continuity of Care Document ---
Author Name Unknown Organization [facility] Address [address] [place] [address]- Care Team Providers Care Mechanical Meter Tester Name Role Phone Cal CONCESSION CASHIER, Luz Simeon Primary Care Physician [facility] 06[facility]23 - 07/23/23 [facility] [address] [place] [address]- Allergies, Adverse Reactions, Alerts Substance Reaction Severity [...] and Recorded Vaccine Date Status Refusal Reason [id number] 12y+ bivalent booster vax 11/17/22 Given [id number] 12y+ bivalent booster vax 10/16/22 Given influenza [...] 08/27/11 Gi susie influenza virus vaccine, inactivated 08/29/10 Gi susie SARS-CoV-2 (COVID-19) mRNA BNT-162b2 [...] (oldterm) 12 10/08/06 Given 1Result Comment: [09/24/2017] [facility] [id number] 2Admin Note: VIS 7- 3Admin Note: VIS given 06/23/11, ukrainian form 4Admin Note: VIS GIVEN 07/08/10 ukrainian 5Result Comment: [04/02/2016] VIS in Iraqi given 6Admin Note: sep 06 7Admin Note: vis given in Iraqi 8Admin Note: VIS given in Iraqi 9Admin Note: VIS IN ARMENIAN 10Admin Note: VIS in ukrainian 11Admin Note: VIS-GIVEN 12Admin Note: VIS-GIVEN Medications [...] 9:26:00 EDT, Aerosol, Route to Pharmacy Electronically, [id number], [facility]/pharmacy #2071, 158.3, cm, 03/15/23 9... Start Date: 03/15/23 Status: Ordered albuterol-ipratropium 3 mg-0.5 mg/3 ml inhalation solution 1 vials, Inhalation, 4 times a day, Dx: COPD J44.9, Asthma J45.998, Lung Cancer C34.00 Sig: use every 6hr as needed for cough, SOB, wheezing, # 100 each, 11 Refills, 10/16/22 16:16:00 EST, [facility]/pharmacy #2071, 1 vials Inhalation 4 times a [...] the battery on the one hegot in [facility]?, Supply, 158.3, cm, 06/28/23 13:1... Start Date: 06/28/23 Status: Ordered calcium (as citrate)-vitamin D 315 mg-250 intl units oral tablet 1 tablet, By Mouth, 2 times a day, # 180 tablet, 6 Refills, Maintenance, 07/15/23 19:14:00 EDT, Tablet, [facility]/pharmacy #2071, Partial fill upon patient request if the prescription is for a schedule II opioid drug., 1 tablet By Mouth 2 times a day, 158.3... Start Date: 07/15/23 Status: Ordered Daily Leslie oral tablet See Instructions, ANJELE NAZ TABLETA TONUÑEZ BENITEZ (NONFORMULARY), # 90 tablet, 1 Refills, Maintenance, 01/27/23 14:13:00 EST, [facility], 90, TOME NAZ TABLETA TODOS HUSSEIN BENITEZ [...] # 90 capsule, 1 Refills, [facility], 160, cm, 06/11/22 14:31:00 EDT, Height Start [...] 11 Refills, Maintenance, 07/01/23 11:12:00 EDT, Film, [facility]/pharmacy #2071, Partial fill upon patient request if the prescription is for a schedule II opioid drug. For Cancer... Start Date: 07/01/23 Status: Ordered metFORMIN 500 mg oral tablet See Instructions, TOME NAZ TABLETA POR VIA ORAL TODOS LOS BENITEZ CON LAS COMIDAS, # 90 tablet, 1 Refills, Maintenance, 01/27/23 14:13:00 EST, [facility], 158.3, cm, 01/07/23 13:42:00 EST, Height Start [...] Details, Route to Pharmacy Electronically, [facility], 160, cm, 06/11/22 14:31:00 EDT, Height Start [...] Acute 10/14/23 12:00:00 EST, 06/24/23 12:00:00 EDT, [facility]/pharmacy #2071, Partial fill upon patient request if [...] oral enteric coated capsule See Instructions, BAHMAN NAZ CAPSULA SORIN BENITEZ, # 90 capsule, 3 Refills, Maintenance, 06/24/23 13:25:00 EDT, [id number], 158.3, cm, 05/19/23 14:14:00 EDT, Height Start Date: 06/24/23 Status: Ordered oxyCODONE 5 mg oral tablet 5 mg, 1, tablet, By Mouth, 2 times a day, # 56 tablet, Refills 0, Tot. Refills 0, Maintenance, 06/23/23 10:49:00 EDT, Route to Pharmacy Electronically, [facility]/pharmacy #[id number], Partial fill upon patient request if [...] 2 Refills, Maintenance, 06/24/23 13:25:00EDT, CR Tablet, [facility]/pharmacy #2071, Partial fill upon patient request if the prescription is for a schedule II opioid drug., 158.3, cm, 05/19/23 14:14:... Start Date: 06/24/23 Status: Ordered Trelegy Ellipta 200 mcg-62.5 mcg-25 mcg/inh inhalation powder 1 puffs, Inhalation, Daily, at the same time every day, # 60 each, 3 Refills, Maintenance, 06/24/2311:55:00 EDT, Powder, [facility]/pharmacy #2071, Partial fill upon patient request if [...] bronchial challenge - 2x-ray 2013 stable, persistent 57034 x-ray, mild 4repeat 5 years 5Severe emphysema per pulmo note 6/20/13 6per colonoscopy 7PPD negative 04-26-08 8lung (lateral basal segment of the left lower lobe), per CT 01-18-2009 done at [facility] 9internal and external per 2011 colonoscopy 10urology consult written today 11per CT from [facility], associated with ureteral stone. mild left hydronephrosis 12Repeat stone Oct 2021, seeing urology 13per CT from [facility] , ER was notified 14not starting meds due to polypharmacy and comorbidities 15Followed by Pulm in [place], stability on repeat CT Chest Sep 2020 per their note 16New 10mm nodule LUNG-RADS 4B 09/20/19 17Followed by [place] [facility] and [facility] [place] 2007 x-ray 2009 x-ray [id number] DEXA: T-score lowest -3.7 21Rash developed 07/06/13 Social History Social History Type Response Smoking Status Former smoker; Other : per pt; entered on: 04/21/18 Sex Male Patient Care team information Care Team Personnel Name: Cal PRADO, Luz Simeon Position: [facility] PCO Associate Professional Member Role: PCP Address: Address: [address] [place] [address] [place] [address]- Care Team Related Persons Name: STEVE LOPEZ Address: home [address] [place] [address] Name: MERLY ROBERSON Address: home [address] [place], [place] Name: MORALES MUELLER JR
--- OUTSIDE RECORDS SUMMARY | 2023-08-14 20:07 | XMS_ITS | Continuity of Care Document ---
Author Name Unknown Organization [facility] Address [address] [place] [id number]- Care Team Providers Care Senior Commissions Analyst Name Role Phone Cal PRADO, Luz Simeon Primary Care Physician Encounter [facility] Date(s): 10/16/22 - 11/15/22 [facility] [address] [place] [id number]- Attending Physician: Latasha Dumont Admitting Physician: Laatsha Dumont Referring Physician: AdmtrLatasha Allergies, Adverse Reactions, [...] and Recorded Vaccine Date Status Refusal Reason [id number] 12y+ bivalent booster vax 10/16/22 Given influenza [...] Gi susie influenza virus vaccine, inactivated 3 9/29/11 Gi susie influenza virus vaccine, inactivated 4 [...] 1Result Comment: [09/24/2017] [facility] [id number] 2Admin Note: VIS 7- 3Admin Note: VIS given 06/23/11, yi form 4Admin Note: VIS GIVEN 07/08/10 yi 5Result Comment: [04/02/2016] VIS in Tunisian given 6Admin Note: sep 06 7Admin Note: vis given in Tunisian 8Admin Note: VIS given in Tunisian 9Admin Note: VIS IN SUDANESE 10Admin Note: VIS in yi 11Admin Note: VIS-GIVEN 12Admin Note: VIS-GIVEN Medications albuterol-ipratropium 3 mg-0.5 mg/3 ml inhalation solution 1 vials, Inhalation, 4 times a day, Dx: COPD J44.9, Asthma J45.998, Lung Cancer C34.00 Sig: use every 6hr as needed for cough, SOB, wheezing, # 100 each, 11 Refills, 10/16/22 16:16:00 EST, [facility]/pharmacy #[id number], 1 vials Inhalation [...] Refills, Maintenance, 07/28/22 15:19:00 EDT, [facility], 90, TOME NAZ TABLETA TODOS LOS BENITEZ (NONFORMULARY), 160,cm, 06/11/22 14:31:00 EDT, Height Start Date: 07/28/22 Status: Ordered duloxetine 30 mg oral enteric coated capsule See Instructions, TOME NAZ CAPSULA POR VIA ORAL TODOS [place] BENITEZ DON'T CRUSH OR CHEW NEEDED FOR PAIN, # 90 capsule, 1 Refills, [facility], 160, cm, 06/11/22 14:31:00 EDT, Height Start [...] 3 Refills, Maintenance, 04/29/22 11:58:00 EDT, Tablet, [facility]/pharmacy #[id number], dose change 09/10/20, 160, cm, 04/29/22 11:20:00 EDT, Height Start Date: 04/29/22 Status: Ordered metFORMIN 500 mg oral tablet See Instructions, TOME NAZ TABLETA POR VIA ORAL TODOS [place] BENITEZ CON LAS COMIDAS, # 90 tablet, 1 Refills, Maintenance, 07/28/22 15:19:00 EDT, [facility], 160, cm, 06/11/22 14:31:00 EDT, Height Start Date: 07/28/22 Status: Ordered mirtazapine 7.5 mg oral tablet See Instructions, TOME NAZ TABLETA POR VIA ORAL AL ACOSTARSE, # 90 tablet, 3 Refills, [facility], 160, cm, 04/29/22 11:20:00 EDT, Height Start Date: 05/27/22 Status: Ordered montelukast 10 mg oral tablet See Instructions, TOME NAZ TABLETA POR VIA ORAL CADA NOCHE, # 90 tablet, Refills 3, Maintenance, 08/05/22 11:49:00 EDT, Instructions Replace Required Details, Route to Pharmacy Electronically, [facility], 160, cm, 06/11/22 14:31:00 EDT, Height Start Date: 08/05/22 Status: Ordered nabumetone 500 mg oral tablet See Instructions, TOME NAZ TABLETA POR VIA ORAL DOS VECES AL YAEL CUANDO SEA NECESARIO FOR KNEE PAIN, # 60 tablet, 1 Refills, Maintenance, 07/28/22 15:22:00 EDT, [facility], 160, cm, 06/11/22 14:31:00 EDT, Height Start [...] Refills, Maintenance, 07/30/22 16:26:00 EDT, [facility], 160, cm, 06/11/22 14:31:00 EDT, Height Start Date: 07/30/22 Status: Ordered predniSONE 10 mg oral tablet See Instructions, 1.5 tablet By Mouth Daily, # 45 tablet, 2 Refills, Maintenance, 01/05/22 14:14:00EST, [facility]/pharmacy #[id number], Partial fill upon patient request if the prescription is for a schedule IIopioid drug., 160, cm, 01/05/22 13:54:00 EST, Height Start Date: 01/05/22 Status: Ordered predniSONE 10 mg oral tablet TOME NAZ TABLETA TONUÑEZ D Start Date: 08/22/21 Status: Ordered Right [...] Refills, Maintenance, 07/30/22 6:38:00 EDT, Powder, [id number], Partial fill upon patient request if theprescription [...] bronchial challenge 01-07 2x-ray 2013 stable, persistent 74544 x-ray, mild 4repeat 5 years 5Severe emphysema per pulmo note 05/18/13 6per colonoscopy 7PPD negative 04-26-08 8lung (lateral basal segment of the left lower lobe), per CT 01-18-2009 done at [facility] 9internal and external per 2011 colonoscopy 10urology consult written today 11per CT from [facility], associated with ureteral stone. mild left hydronephrosis 12Repeat stone Oct 2021, seeing urology 13per CT from [facility] , ER was notified 14not starting meds due to polypharmacy and comorbidities 15Followed by Pulm in [place], stability on repeat CT Chest Sep 2020 per their note 16New 10mm nodule LUNG-RADS 4B 09/20/19 17Followed by [place] [facility] and [facility] 18on 2007 x-ray on 2009 x-ray [id number] DEXA: T-score lowest -3.7 21Rash developed 07/06/13 Social History Social History Type Response Smoking Status Former smoker; Other : per pt; entered on: 04/21/18 Sex Male Admission evaluation note * Kacie Brooke: PERFORM Event Display: Admission Note Authored Date: [id number] Note * Event Display: Non [facility] Lab Results Authored Date: * Event Display: [facility] Nuclear Medicine, Non-BH Authored Date: * Event Display: Non BH Lab Results Authored Date: * Event Display: Non BH Lab Results Authored Date: * Event Display: Non BH Lab Results Authored Date: [id number] * Jovana Elias: PERFORM, SIGN, VERIFY Event Display: Patient Education/Instruction Authored Date: [id number] [facility] Clinical Summary Person Information Name MORALES MUELLER Age 67 Years 1945 12:00 AM PCP Marianne PRADO , Luz Simeon PCP [facility]# [id number] Reason for Visit: Allergy Info: Nicotine Patch; varenicline; Proventil HFA; gabapentin; cephalexin Vital Signs Height Weight BMI Blood Pressure / Temperature Pulse Rate Respiratory Rate 02 Sat Mode of Delivery / Medication Information Albuterol (albuterol 0.083% inhalation solution) 3 mL, Inhalation, every 6 hours, label in Tunisian.Please stop all prior scripts for DuoNeb, thank you, 30 days, Refills: 11 Albuterol (albuterol CFC free 90 mcg/inh inhalation aerosol) 2 puffs, Inhalation, 4 times a day, VENTOLIN - pt strongly prefers Ventolin rather than Proair, thank you thank you. label in Tunisian, 30 days, As Needed, for wheezing, Refills: 1 Alendronate (alendronate 70 mg oral tablet) 1 tablet, Oral, every week, with 6 to 8 ounces of plainwater, at least 30 minutes before breakfast. label in Tunisian, 28 days, Refills: 1 amiTRIPTYLINE (amitriptyline 25 mg oral tablet) 1 tablet, Oral, Daily at Bedtime, Refills: 1 Aspirin (aspirin 81 mg oral enteric coated tablet) 1 tablet, Oral, Daily, label in Tunisian with food (may be best to hold while taking prednisone), 30 days, Refills: 11 Atorvastatin (atorvastatin 40 mg oral tablet) 1 tablet, Oral, Daily, Label in Tunisian, 30 days, Refills: 5 Capsaicin Topical (capsaicin topical 0.1% cream) 1 applicator, Topically, 3 times a day, Refills: 1 Cholecalciferol (cholecalciferol 400 iu oral tablet) 2 tablet, Oral, Daily, label in Tunisian, 30 days, Refills: 1 DiphenhydrAMINE (Benadryl 25 [...] taking once a day please label in Tunisian, 30 days, Refills: 11 Nabumetone (nabumetone 500 mg oral tablet) 2 tablet, Oral, Daily, with food, Refills: 1 Omeprazole (omeprazole 20 mg oral enteric coated tablet) 1 tablet, Oral, Daily in the morning, (do not crush or chew) label in Tunisian. use as LITTLE as possible to control [...] care provider, you may find a [facility] provider by calling [facility] at [phone]. Patient Education Information Follow-up Details: Patient Education Material: * Libertad Elias: PERFORM Event Display: Radiology Results Scanned Authored Date: * Event Display: Non BH Radiology Results Authored Date: * Jovana Elias: PERFORM Event Display: Radiology Results Scanned Authored Date: Patient Care team information Care Team Personnel Name: Luz Mccall NP Position: [facility] Associate Professional Member Role: PCP Address: Address: [address] [place] [id number]- Care Team Related Persons Name: STEVE LOPEZ Address: home [address] [place] [address] Name: MERLY ROBERSON Address: home [address] [place] [address] Name: MORALES MUELLER JR
--- OUTSIDE RECORDS SUMMARY | 2023-08-14 20:08 | XMS_ITS | Continuity of Care Document ---
Demographics Address [address] [place], [place] [id number] Mobile Preferred Language en Marital Status Gnosticist Affiliation Unknown Race Other Ethnic Group or Author Name Unknown Organization [facility] Address [address] [place] [id number] Care Team Providers Care Credit Assistant Name Role Phone NONE, DOC Primary Care Physician Unavailab le Encounter [facility] Date(s): 12/25/22 - 12/28/[address] [address] [place] [phone] Encounter Diagnosis Cancer related pain(Discharge Diagnosis) - 12/27/22 Lung cancer(Discharge Diagnosis) - 12/27/22 Dyspnea(Discharge Diagnosis) - 12/27/22 Chest pain(Discharge Diagnosis) - 12/27/22 Discharge Disposition: Home Attending Physician: MAHDI FABI CROSS Admitting Physician: MAHDI FABI CROSS Allergies, Adverse Reactions, Alerts No Known Medication Allergies Assessment and Plan Extracted from: Title:PULM/CCM NOTE Author:MARIELA RODRIGUEZ Date:12/28/22 Review of Systems 12 point ROS completed with pertinent positives above; all other systems negative Health Status Allergies: Allergic Reactions (Selected) No Known Medication Allergies, Allergies (1) Active Severity Reaction No Known Medication Allergies None Documented Current medications: (Selected) Inpatient Medications Ordered Chloraseptic 1.4% spray: 3 spray(s), Oral, q2hr, PRN: Sore Throat Insulin Humalog sliding scale: High Dose Correction, Subcutaneous, QIDACHS Lovenox: 40 mg = 0.4 mL, Subcutaneous, Daily Mucinex: 600 mg = 1 tab(s), Oral, BID Pepcid: 20 mg = 1 tab(s), Oral, BID Perforomist 20 mcg/2 mL inhalation solution: 20 mcg = 2 mL, NEB, BID Pulmicort Respules: 0.5 mg = 2 mL, NEB, BID SoluMEDROL: 40 mg = 1 mL, IV Push, 3x/Day Tylenol: 650 mg = 2 tab(s), Oral, q4hr, PRN: Pain - Mild Tylenol: 650 mg = 2 tab(s), Oral, q6hr, PRN: Pain/Fever albuterol-ipratropium 2.5 mg-0.5 mg/3 mL inhalation solution: 3 mL, NEB, 4x/Day albuterol-ipratropium 2.5 mg-0.5 mg/3 mL inhalation solution: 3 mL, NEB, 6x/Day, PRN: Shortness of Breath or wheezing albuterol-ipratropium 2.5 mg-0.5 mg/3 mL inhalation solution: 3 mL, NEB, q4hr, PRN: Shortness of Breath or wheezing doxycycline: 100 mg = 1 tab(s), Oral, BID levothyroxine: 112 mcg = 1 tab(s), Oral, Daily morphine: 2 mg = 1 mL, IV Push, q4hr, PRN: Pain nicotine 14 mg/24 hr patch, extended release: 14 mg = 1 patch(es), Transdermal, Daily ondansetron: 4 mg = 2 mL, IV Push, q6hr, PRN: Nausea/Vomiting Documented Medications Documented Daily Leslie oral tablet: 1 tab(s), Oral, Daily Trelegy Ellipta 200 mcg-62.5 mcg-25 mcg/inh inhalation powder: 1 puff(s), INH, Daily albuterol 90 mcg/inh inhalation aerosol: 2 puff(s), INH, q6hr, PRN: Shortness of Breath or wheezing, 0 Refill(s) albuterol-ipratropium 2.5 mg-0.5 mg/3 mL inhalation solution: 3 mL, NEB, QID, PRN: Shortness of Breath or wheezing, 0 Refill(s) levothyroxine 112 mcg (0.112 mg) oral tablet: 112 mcg = 1 tab(s), Oral, Daily metFORMIN 500 mg oral tablet: 500 mg = 1 tab(s), Oral, Daily mirtazapine 7.5 mg oral tablet: 7.5 mg = 1 tab(s), Oral, Once a day (at bedtime) montelukast 10 mg oral tablet: 10 mg = 1 tab(s), Oral, qPM nabumetone 500 mg oral tablet: 500 mg = 1 tab(s), Oral, BID, PRN: knee pain omeprazole 20 mg oral delayed release capsule: 20 mg = 1 cap(s), Oral, Daily predniSONE 10 mg oral tablet: 15 mg = 1.5 tab(s), Oral, Daily Problem list: All Problems COPD (chronic obstructive pulmonary disease) / 81596124 / Confirmed Diabetes / 417822359 / Confirmed Diverticulitis / [id number] / Confirmed 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 Cancer of lung / [id number] / Confirmed, Active Problems (5) Cancer of lung COPD (chronic obstructive pulmonary disease) Diabetes Diverticulitis H/O Lauren thyroiditis Physical Examination VS/Measurements Vital Signs 12/28/2022 7:16 EST Temperature Oral 36.5 DegC Peripheral Pulse Rate 83 bpm Respiratory Rate 18 br/min Systolic Blood Pressure 120 mmHg Diastolic Blood Pressure 60 mmHg SpO2 98 % , Vital Signs (last 24 hrs) Last Charted Temp Oral 36.5 DegC (DEC 28 07:) Heart Rate Peripheral 67 bpm (DEC 28 08:33) Resp Rate 20 br/min (DEC 28:) SBP 120 mmHg (DEC 28 07:16) DBP 60 mmHg (DEC 28:) General: Alert and oriented, No acute distress. Eye: Extraocular movements are intact, Normal conjunctiva. HENT: Normocephalic, Oral mucosa is moist. Neck: Supple. Respiratory: Respirations are non-labored, Breath sounds are equal, Symmetrical chest wall expansion, bilateral expiratory wheezing. Cardiovascular: Normal rate, Regular rhythm. Gastrointestinal: Soft, Normal bowel sounds. Integumentary: Warm, Dry. Neurologic: Alert, Oriented, No focal defects. Psychiatric: Cooperative, Appropriate mood & affect. Extracted from: Title:PULM/CCM NOTE Author:Guerita Carrasquillo Date:12/27/22 Review of Systems 12 point ROS completed with pertinent positives above; all other systems negative Health Status Allergies: Allergic Reactions (Selected) No Known Medication Allergies, Allergies (1) Active Severity Reaction No Known Medication Allergies None Documented Current medications: Medications (18) Active Scheduled: (11) albuterol-ipratropium 2.5 mg-0.5 mg/3 mL Inh Jelena [IMH] 3 mL, NEB, 4x/Day budesonide 0.5 mg/2 mL Inh Susp [IMH] 0.5 mg 2 mL, NEB, BID doxycycline hyclate 100 mg Tab [IMH] 100 mg 1 tab(s), Oral, BID enoxaparin 40 mg/0.4 mL SC Inj [IMH] 40 mg 0.4 mL, Subcutaneous, Daily famotidine 20 mg Tab [IMH] 20 mg 1 tab(s), Oral, BID formoterol fumarate Inh Jelena 20 mcg/2 mL [IMH] 20 mcg 2 mL, NEB, BID guaiFENesin 600 mg ER Tab [IMH] 600 mg 1 tab(s), Oral, BID insulin lispro (Humalog) per Dose Inj [IMH] High Dose Correction, Subcutaneous, QIDACHS levothyroxine 112 mcg (0.112 mg) Tab [IMH] 112 mcg 1 tab(s), Oral, Daily methylPREDNISolone 40 mg Inj [IMH] 40 mg 1 mL, IV Push, 3x/Day nicotine 14 mg/24 hr Transderm Patch [IMH] 14 mg 1 patch(es), Transdermal, Daily Continuous: (0) PRN: (7) acetaminophen 325 mg Tab [IMH] 650 mg 2 tab(s), Oral, q4hr acetaminophen 325 mg Tab [IMH] 650 mg 2 tab(s), Oral, q6hr albuterol-ipratropium 2.5 mg-0.5 mg/3 mL Inh Jelena [IMH] 3 mL, NEB, q4hr albuterol-ipratropium 2.5 mg-0.5 mg/3 mL Inh Jelena [IMH] 3 mL, NEB, 6x/Day morphine 2 mg/mL Inj [IMH] 2 mg 1 mL, IV Push, q4hr ondansetron 4 mg/2 mL Inj [IMH] 4 mg 2 mL, IV Push, q6hr phenol Top 1.4% Oral Tombstone [IMH] 3 spray(s), Oral, q2hr Problem list: All Problems COPD (chronic obstructive pulmonary disease) / [id number] / Confirmed Diabetes / [id number] / Confirmed Diverticulitis / [id number] / Confirmed H/O Lauren thyroiditis / [id number] / Confirmed Cancer of lung / [id number] / Confirmed, Active Problems (5) Cancer of lung COPD (chronic obstructive pulmonary disease) Diabetes Diverticulitis H/O Lauren thyroiditis Physical Examination VS/Measurements Vital Signs (last 24 hrs) Last Charted Temp Oral 36.6 DegC (DEC 27:13) Heart Rate Peripheral 85 bpm (DEC 27:) Resp Rate 18 br/min (DEC 27:) SBP 118 mmHg (DEC 27:) DBP 64 mmHg (DEC 27:) General: Alert and oriented, No acute distress. Eye: Extraocular movements are intact, Normal conjunctiva. HENT: Normocephalic, Oral mucosa is moist. Neck: Supple. Respiratory: Respirations are non-labored, Breath sounds are equal, Symmetrical chest wall expansion, bilateral expiratory wheezing. Cardiovascular: Normal rate, Regular rhythm. Gastrointestinal: Soft, Normal bowel sounds. Integumentary: Warm, Dry. Neurologic: Alert, Oriented, No focal defects. Psychiatric: Cooperative, Appropriate mood & affect. Extracted from: Title:Optimed Progress Note Author:OLVIN LAMAR DNP Date:12/26/22 Reason for Hospitalization: 77 year-old male who presented to [facility] on 12/25/2022 for evaluation of worsening shortness of breath and tachycardia. He is from out of town and has a history of lung cancer and is followed by Hem-Onc & PCCM ? denies having undergone manager regional or surgery. Plans to go home 01/04/2023 OA he was febrile 39C (102.2F), tachypneic and tachycardia. COVID-19, Influenza A/B & RSV were negative. BNP & Troponin I were normal. CXR showed RLL masses, RUL focal pleural and parenchymal scarring & LLL remote granulomatous disease. CTPA showed large masses within the right lung measuring up to 6 cm in the posterior mid right lung and 5 cm in the medial right lower lobe. No significant thoracic lymphadenopathy. Bilateral upper lobe predominant emphysema (R>L) & right pleural calcifications. CTAP had benign findings. PMH: Atherosclerosis, BPH, COPD, DM-II, Diverticulosis, Lauren thyroiditis, Lung Cancer/Masses, Nicotine Dependence/Smoker Daily Events: 12/26: 1N. ECG: Bigeminy O? : 2L. No chest pain or palpitations. 12 L ECG 1/28 showed Sinus tachycardia, APC's SV complex w/ short R-R interval. Non-specific IVCD. Abnormal R-wave progression, early transition (QRS area >0 in V2). Borderline inferior ST elevation. Troponin I < 0.012. Has a harsh cough. States that they are from out of town and would like to go home SARAH. States that he is feeling better than he was when admitted. Inpatient Medications Medications (18) Active Scheduled: (11) albuterol-ipratropium 2.5 mg-0.5 mg/3 mL Inh Jelena [IMH] 3 mL, NEB, 4x/Day budesonide 0.5 mg/2 mL Inh Susp [IMH] 0.5 mg 2 mL, NEB, BID doxycycline hyclate 100 mg Tab [IMH] 100 mg 1 tab(s), Oral, BID enoxaparin 40 mg/0.4 mL SC Inj [IMH] 40 mg 0.4 mL, Subcutaneous, Daily famotidine 20 mg Tab [IMH] 20 mg 1 tab(s), Oral, BID formoterol fumarate Inh Jelena 20 mcg/2 mL [IMH] 20 mcg 2 mL, NEB, BID guaiFENesin 600 mg ER Tab [IMH] 600 mg 1 tab(s), Oral, BID insulin lispro (Humalog) per Dose Inj [IMH] High Dose Correction, Subcutaneous, QIDACHS levothyroxine 112 mcg (0.112 mg) Tab [IMH] 112 mcg 1 tab(s), Oral, Daily methylPREDNISolone 40 mg Inj [IMH] 40 mg 1 mL, IV Push, 3x/Day nicotine 14 mg/24 hr Transderm Patch [IMH] 14 mg 1 patch(es), Transdermal, Daily Continuous: (0) PRN: (7) acetaminophen 325 mg Tab [IMH] 650 mg 2 tab(s), Oral, q4hr acetaminophen 325 mg Tab [IMH] 650 mg 2 tab(s), Oral, q6hr albuterol-ipratropium 2.5 mg-0.5 mg/3 mL Inh Jelena [IMH] 3 mL, NEB, q4hr albuterol-ipratropium 2.5 mg-0.5 mg/3 mL Inh Jelena [IMH] 3 mL, NEB, 6x/Day morphine 2 mg/mL Inj [IMH] 2 mg 1 mL, IV Push, q4hr ondansetron 4 mg/2 mL Inj [IMH] 4 mg 2 mL, IV Push, q6hr phenol Top 1.4% Oral Tombstone [IMH] 3 spray(s), Oral, q2hr Allergies: NKDA Review of Systems: A comprehensive 12 system review was conducted and is negative with the exception of what is noted above.? Physical Exam: Temperature 36.8 Systolic Blood Pressure 115 Diastolic Blood Pressure 64 Pulse 89 SpO2 96 Respiratory Rate 17 General: 77 year old male in NAD. HEENT: AT/NC and ??? symmetrical. PERRL. Hearing grossly intact. Neck: Supple. Cardiovascular: Bigeminy Respiratory: Symmetrical. Non-labored. Sparse rhonchi and occasional harsh cough. Abdomen/Pelvis: Soft, NT, + bowel sounds in all quadrants. Extremities: HERNANDEZ. ? gross deformity. ? edema.? ? Neuro: Alert.? ? Oriented. CN II-XII grossly intact, but not individually tested. No focal deficits. Psychiatric: Mood and affect are appropriate. Skin: Warm. Dry. Well perfused. ? overt new rashes or lesions noted. Laboratory Studies Labs (Last four charted values) WBC H 14.5 (DEC 26) 10.5 (DEC 25) Hgb L 10.7 (DEC 26) L 11.0 (DEC 25) Hct L 35.5 (DEC 26) L 36.7 (DEC 25) Plt H 450 (DEC 26) H 435 (DEC 25) Na L 134 (DEC 26) L 136 (DEC 25) K 4.4 (DEC 26) 4.2 (DEC 25) CO2 29 (DEC 26) H 32 (DEC 25) Cl L 97 (DEC 26) 100 (DEC 25) Cr 0.70 (DEC 26) 0.81 (DEC 25) BUN 15 (DEC 26) 9 (DEC 25) Glucose Random H 183 (DEC 26) H 151 (DEC 25) Mg 1.9 (DEC 25) Phos L 2.2 (DEC 25) PT 12.6 (DEC 25) INR 0.94 (DEC 25) PTT 34.8 (DEC 25) Microbiological Studies Sputum Gm Stain 12/26/2022: Rare GPR, Moderate GPC. Sputum Cx 12/26/2022: Normal Kamaljit. Radiographic Studies X-Ray: Computed Tomography: ??Ultrasound: ??MRI: ??Echo: ??Nuclear Medicine: ??Mammography: ASSESSMENT AND PLAN Acute Medical Issues Dyspnea (Improving) Chest Tightness (Resolved) COPD/Emphysema (R>L) Soft Tissue Mass, RUL & Superior Aspect of RLL (5.9 x 3.9 x 5.0 cm) Soft Tissue Mass, RLL (5.0 x 4.3 x 4.0 cm) Non-calcified Pulmonary Nodule, R Anterolateral (7x 7 mm) Calcified Granuloma, LLL Pleural Calcifications, Right -COVID-19, Influenza A/B & RSV were negative. Sputum Cx is NTD -CXR 12/25 showed RLL masses which may represent metastatic disease or lung carcinoma. RUL focal pleural and parenchymal scarring. LLL remote granulomatous disease. -CTPA 12/25 showed large masses within the right lung measuring up to 6 cm in the posterior mid right lung and 5 cm in the medial right lower lobe. Findings are concerning for lung carcinoma. No significant thoracic lymphadenopathy. Bilateral upper lobe predominant emphysema, right worse than left consistent with COPD. Right pleural calcifications. Radiologist recommended PET scan or tissue biopsy if not already obtained to evaluate for recurrence. CT A/P 12/25 was also obtained due what appear to be metastatic findings and it showed no acute intra-abdominal abnormality. No evidence of metastatic disease in the abdomen and pelvis. -CXR 12/27 showed no significant change compared 12/25/2022. -Continue supportive care and close monitoring of SpO? ? provide supplemental O? PRN. Encourage use of IS and FV when appropriate. -Continue medications -Consultants: PCCM ? appreciate their assistance in caring for the patient. Fever (Defervesced) Unclear etiology Monitor and treat as needed. Sinus Arrhythmia/Bigeminy Suspect is chronic as rhythm is associated with significant lung disease (seen in ~60% of cases) No pain or palpitations noted. 12 L ECG 12/26 showed Sinus tachycardia, APC's SV complex w/ short R-R interval. Non-specific IVCD. Abnormal R-wave progression, early transition (QRS area >0 in V2). Borderline inferior ST elevation. BNP and Troponin I were normal (274 & <0.012 respectively). Consider TTE Abnormal APR/PIM's ? CRP ? PCT Continue to provide supportive care; trend/correlate levels c? labs, imaging studies & clinical condition. Monitor for symptoms c/w SIRS/Sepsis/sHLH. ? antimicrobials PRN. Leukocytosis UA negative for UTI Trend/correlate c? CX's, XR's & clinical condition; ? antimicrobials as needed. Anemia, normocytic Hemoglobin level (Hgb) is stable. Continue to follow serial Hgb levels & transfuse if Hgb is < 7g/dL or if the patient is symptomatic. Thrombocytosis Mild AC with Lovenox Trend and treat as needed Hypophosphatemia Mild Trend and treat as needed Pseudo-hyponatremia 2?? to hyperglycemia No treatment needed at this time ? Trend and treat as needed. Chronic Medical Issues Atherosclerosis CT A/P 12/25 showed mild scattered atherosclerosis of the abdominal aorta and branch vessels. Benign Prostatic Hyperplasia CT A/P 12/25 showed mild enlargement of prostate gland with mass effect on the base of the urinary bladder. No hydronephrosis or nephrolithiasis. No ureteral or bladder calculi. Monitor for symptoms consistent with obstructive uropathy, urinary retention, irritation or increased urine residual volume and treat as needed. Continue DM-II with Hyperglycemia AC/HS FSBG. Use SSI & GALAN's & ? PRN to maintain BG level between 100 - 180. Re-enforce diabetic teaching and the need for compliance. Diverticulosis Asymptomatic CT A/P 12/25 showed rectosigmoid diverticulosis, no evidence of acute diverticulitis. Monitor and treat as needed. Mesenteric Calculus (Incidental Finding) Noted on CT A/P 12/25 ? 1.2 cm calcification in the RLQ Prophylaxis VTE: Lovenox H? /PPI: PPI PRN Diet Order Diet Order -- 12/25/22 14:41:00 EST Diabetic Cardiac, Diabetic, 1800 kcal, Fluid: 1500 ml Diet Order -- 12/25/22 14:41:00 EST Diabetic, Room Service Eligible: Yes, 3CHO Choices/Meal ([id number] lc) Disclaimer: Please note, some of this note was written with voice dictation software. Please contact me with any questions. Billing: Level 3 (95034) 35+ minutes were spent in documentation review, examination of the patient, and conferring with collaborating and subspecialty providers.? ? Procedures EKG reviewed 1-3 leads (12918) ? ? Extracted from: Title:Chest Pain *MYRNA Author:Nima Jackson MD Date:12/25/22 History of Present Illness The patient presents with chest pain. The onset was gradual. The course/duration of symptoms is constant and worsening. Location: generalized. The character of symptoms is sharp. The degree at maximum was severe. The degree at present is severe. There are exacerbating factors including movement and coughing. The relieving factor is none. Risk factors consist of Hx of COPD, Lung cancer. Associated symptoms: shortness of breath. Additional history: Patient lives in [facility] with his and is visiting his daughter who lives locally.. Review of Systems Constitutional symptoms: No fever, Skin symptoms: No rash, Eye symptoms: No icterus, ENMT symptoms: No nasal congestion, Respiratory symptoms: Shortness of breath, cough. Cardiovascular symptoms: Chest pain. Gastrointestinal symptoms: No abdominal pain, Genitourinary symptoms: No dysuria, Musculoskeletal symptoms: No back pain, Neurologic symptoms: No altered level of consciousness, Health Status Allergies: Allergic Reactions (All) No Known Medication Allergies. Medications: (Selected) . Past Medical/ Family/ Social History Medical history: No active or resolved past medical history items have been selected or recorded.. Surgical history: No active procedure history items have been selected or recorded.. Family history: No family history items have been selected or recorded.. Social history: Social & Psychosocial History Social History Tobacco Current everyday tobacco user Tobacco Use:. Electronic Cigarette/Vaping Electronic Cigarette Use: Never. Psychosocial History No active psychosocial history has been recorded . Problem list: Active Problems (5) Cancer of lung COPD (chronic obstructive pulmonary disease) Diabetes Diverticulitis H/O Lauren thyroiditis . Physical Examination Vital Signs Vital Signs 12/25/2022 12:15 EST Peripheral Pulse Rate 98 bpm Heart Rate Monitored 99 bpm Respiratory Rate 20 br/min Systolic Blood Pressure 135 mmHg Diastolic Blood Pressure 77 mmHg Mean Arterial Pressure, Cuff 96 mmHg Mean Arterial Pressure Cufff-Monitor 93 mmHg SpO2 93 % 12/25/2022 11:31 EST Peripheral Pulse Rate 109 bpm HI Respiratory Rate 18 br/min Systolic Blood Pressure 138 mmHg Diastolic Blood Pressure 64 mmHg Mean Arterial Pressure, Cuff 89 mmHg SpO2 95 % 12/25/2022 11:29 EST Heart Rate Monitored 102 bpm HI Respiratory Rate 21 br/min HI Systolic Blood Pressure 138 mmHg Diastolic Blood Pressure 64 mmHg Mean Arterial Pressure, Cuff 89 mmHg Mean Arterial Pressure Cufff-Monitor 86 mmHg 12/25/2022 10:55 EST Temperature Oral 37.3 DegC Peripheral Pulse Rate 91 bpm Respiratory Rate 18 br/min Systolic Blood Pressure 112 mmHg Diastolic Blood Pressure 68 mmHg SpO2 93 % . Measurements 12/25/2022 10:58 EST Weight Dosing 55.340 kg 12/25/2022 10:58 EST Height/Length Dosing 158.000 cm 12/25/2022 10:55 EST Height 158.000 cm Weight 55.340 kg . Basic Oxygen Information 12/25/2022 12:15 EST Oxygen Therapy Room air 12/25/2022 11:31 EST Oxygen Therapy Room air 12/25/2022 10:55 EST Oxygen Therapy Room air . General: Alert, moderate distress, anxious, ill-appearing. Skin: Warm, dry, pink. Head: Normocephalic. Neck: Supple, trachea midline. Eye: Pupils are equal, round and reactive to light, extraocular movements are intact. Ears, nose, mouth and throat: Oral mucosa moist. Cardiovascular: Regular rate and rhythm. Respiratory: Respirations: Tachypneic, Breath sounds: Diminished. Gastrointestinal: Soft, Nontender, Non distended. Musculoskeletal: Normal ROM. Neurological: Alert and oriented to person, place, time, and situation, No focal neurological deficit observed. Psychiatric: Cooperative, Mood and affect: Anxious. Medical Decision Making Differential Diagnosis: Angina, pulmonary embolism, atypical chest pain, pneumonia, costochondritis, pleurisy, chest wall pain, chronic obstructive pulmonary disease, bronchitis, Cancer related pain. Rationale: He appears distressed and uncomfortable. He has been having progressive weight loss. It is not clear from our discussion but I suspect he has advanced cancer. Primary concern for pain is tumor invasion, and PE. He needs pain control and imaging. He has a new oxygen requirement and will need admission. He appears emaciated and clinically dehydrated.. Documents reviewed: Emergency department nurses' notes. Electrocardiogram: No ST-T changes, EP Interp. engine monitor: Normal sinus rhythm. Results review: Lab results : Lab View 12/25/2022 14:12 EST UA Color Yellow UA Clarity Clear UA Spec Grav 1.015 UA Bili Negative mg/dL UA pH 7.0 UA Urobilinogen 0.2 mg/dL UA Blood Negative mg/dL UA Glucose Negative mg/dL UA Ketones Negative mg/dL UA Protein Negative mg/dL UA Nitrite Negative UA Leuk Est Negative UA WBC 3 UA RBC 1 UA Mucous 1+ UA Ca Ox Crystal TRACE UA Amorph 1+ UA Epithelial 1 12/25/2022 13:37 EST Troponin I <0.012 ng/mL 12/25/2022 11:28 EST Estimated Creatinine Clearance 61.38 mL/min 12/25/2022 11:11 EST WBC 10.5 RBC 4.46 LOW Hemoglobin 11.0 gm/dL LOW Hct 36.7 % LOW MCV 82.3 MCH 24.7 pg LOW MCHC 30.0 gm/dL LOW RDW 16.1 % HI Platelet 435 HI Neutro Auto 73.0 % Lymph Auto 14.7 % LOW Maury Auto 9.9 % HI Eos Auto 1.3 % Basophil Auto 0.5 % NRBC Auto 0.0 % Neutro Absolute 7.7 HI Lymph Absolute 1.5 Maury Absolute 1.0 HI Eos Absolute 0.1 Baso Absolute 0.1 NRBC Absolute 0.0 Immature Grans (Abs) 0.06 HI Immature Granulocytes 0.6 % HI PT 12.6 INR 0.94 PTT 34.8 Sodium Lvl 136 mmol/L LOW Potassium Lvl 4.2 mmol/L Chloride 100 mmol/L CO2 32 mmol/L HI AGAP 4.0 mmol/L LOW BUN 9 mg/dL Creatinine 0.81 mg/dL BUN/Creat Ratio 11.11 Glucose Lvl 151 mg/dL HI Calcium Lvl 8.6 mg/dL Phosphorus 2.2 mg/dL LOW Globulin 3.1 gm/dL A/G Ratio 1.26 LOW ALT (SGPT) 15 unit/L AST (SGOT) 25 unit/L Bili Total 0.6 mg/dL Osmolality 274 Magnesium 1.9 mg/dL Alkaline Phosphatase 105 unit/L Protein, Total, Serum 7.0 gm/dL Albumin 3.9 gm/dL eGFR CKD-EPI 92 Troponin I <0.012 ng/mL NT-pro BNP 274.0 , Interpretation Mild anemia, likely cancer related/chronic disease. No troponin elevation to suggest ACS.. Chest X-Ray: Interpretation by Emergency Physician, R midlung opacity concerning for mass.. Radiology results: X-ray (ST) X-Ray: ?? XR Chest 2 Views ?? 12/25/22 11:17:00 FINAL REPORT HISTORY: chest pain, SOB FINDINGS: Pericardio-cardiac silhouette within normal limits. Large pleural-based soft tissue mass right lower lobe adjacent the lung hilus. Additional masses located in the medial medial right lower lobe territory. Calcified granuloma in the left lower lobe. Linear opacities with apical thickening right upper lobe. There is blunting of the costophrenic angles. IMPRESSION: No previous exams available. Right lower lobe masses which may represent metastatic disease or lung carcinoma. Focal pleural and parenchymal scarring right upper lobe. Remote granulomatous disease left lower lobe. ?? Signed By: PAT BUSH MD , CT (ST) Computed Tomography: ?? CT Abdomen/Pelvis w/ Contrast ?? 12/25/22 13:34:00 FINAL REPORT HISTORY: lower chest pain, eval metastatic disease, hx of lung CA FINDINGS: TECHNIQUE: Axial computed tomography images of the abdomen and pelvis with intravenous contrast. CONTRAST: With; 75 ccs isovue 370 COMPARISON: None. LIVER: Unremarkable. GALLBLADDER AND BILE DUCTS: Unremarkable. No calcified stone. No ductal dilation. PANCREAS: Mild age appropriate atrophy. SPLEEN: Unremarkable. ADRENAL GLANDS: Unremarkable. KIDNEYS, URETERS, AND BLADDER: Unremarkable. No hydronephrosis or nephrolithiasis. No ureteral or bladder calculi. Partial distention of the urinary bladder with normal bladder wall thickness. REPRODUCTIVE: Mild enlargement of prostate gland with mass effect on the base of the urinary bladder. STOMACH AND BOWEL: Stomach, small and large bowel are normal in caliber. Moderate stool burden noted. Prominent rectosigmoid diverticulosis Large 1.2 cm calcification in the right lower quadrant appears to be a mesenteric calculus. APPENDIX: No CT evidence for appendicitis. PERITONEUM: No free fluid. No free air. LYMPH NODES: No lymphadenopathy. VASCULATURE: Mild scattered atherosclerosis of the abdominal aorta and branch vessels. BONES: No fracture or suspicious osseous abnormality. Mild spondylosis of the thoracolumbar spine. ABDOMINAL WALL AND SOFT TISSUES: Unremarkable. IMPRESSION: No acute intra-abdominal abnormality. No evidence of metastatic disease in the abdomen and pelvis. Rectosigmoid diverticulosis, no evidence of acute diverticulitis. ?? Signed By: Cindy Barber MD ?? CT Angio Pulmonary ?? 12/25/22 13:21:00 FINAL REPORT HISTORY: chest pain, hx of lung CA FINDINGS: The examination consists of 2 mm axial images of the chest from the thoracic inlet to the adrenals with intravenous contrast. Comparison: Same day chest x-ray. There is good opacification of the pulmonary arteries with no filling defects in the pulmonary trunk, right and left main pulmonary arteries, segmental nor subsegmental branches of the pulmonary arteries. Normal caliber of the thoracic aorta with moderately calcified and soft tissue plaque atherosclerosis. There is no aortic aneurysm or dissection. Prominent emphysematous changes of upper lobes, right worse than left. Posterior right mid lung soft tissue mass involving the inferior aspect of the right upper lobe and superior aspect of the right lower lobe. The mass measures approximately 5.9 x 3.9 x 5.0 cm in craniocaudal, anterior-posterior and transverse dimensions respectively. Medial right lower lobe mass measuring approximately 5.0 x 4.3 x 4.0 cm in the craniocaudal, anterior-posterior, and transverse dimensions respectively. 7 x 7 mm right anterolateral noncalcified pulmonary nodule (series 5, image 43). Left lower lobe calcified granuloma (series 5, image 69). No pneumothorax or pleural effusion. Pleural calcification noted in the anterior and posterior aspect of the upper right hemithorax The airways are patent including the trachea and major bronchi. There are no enlarged axillary lymph nodes. There are no enlarged anterior mediastinal, subcarinal or hilar lymph nodes. Normal heart size. Mild three-vessel coronary artery atherosclerosis. There is no pericardial effusion. No traumatic or suspicious osseous abnormality. IMPRESSION: Large masses within the right lung measuring up to 6 cm in the posterior mid right lung and 5 cm in the medial right lower lobe. Findings are concerning for lung carcinoma. Recommend PET scan or tissue biopsy if not already obtained to evaluate for recurrence. No significant thoracic lymphadenopathy. Bilateral upper lobe predominant emphysema, right worse than left consistent with COPD. Right pleural calcifications. ?? Signed By: Cindy Barber MD , reviewed radiologist's report. Notes: CT imaging was directly reviewed. No PEs noted. He has two large R lung masses and I suspect this is directly causing his pain. His pain responded to IV medications. He is still uncomfortable and distressed and will need admission. Discussed ED management and need for admission with hospitalist.. Reexamination/ Reevaluation Course: improving. Pain status: decreased. Interventions: LR bolus 500mL, dilaudid 0.2mg x 3. Impression and Plan Diagnosis Lung cancer ([id number] C34.90, Discharge, Medical) Chest pain ([id number] R07.9, Discharge, Medical) Dyspnea ([id number] R06.00, Discharge, Medical) Cancer related pain ([id number] G89.3, Discharge, Medical) Calls-Consults - Consult, The patient was discussed with the hospitalist for admission and further managment.. Plan Condition: Improved, Guarded. Disposition: Hospitalist to evaluate for admission.. Counseled: Patient, Family, Regarding diagnosis, Regarding diagnostic results, Regarding treatment plan, Patient indicated understanding of instructions. Functional Status 12/28/22 History of Fall in Last 3 Months Garcia N o Mobility Corwin Slightly limited 12/26/22 Bathing ADL Index Requires assistance (1) Dressing ADL Index Requires assistance (1) Toileting ADL Index Independent (2) Transferring Bed or Chair ADL Index Inde pendent (2) Continence ADL Index Independent (2) ADLs Minimal assistance 12/25/22 Level of Assistance - Self Care-Mobility No change from baseline Recent Travel History No recent travel Family Member Travel History No recent t pradeep COVID-19 Screening None Medications albuterol 90 mcg/inh inhalation aerosol = 2 puff(s), INH, q6hr, PRN PRN Shortness of Breath or wheezing, 0 Refill(s) Start Date: 12/25/22 Status: Ordered Daily Leslie oral tablet 1 tab(s), Oral, Daily Start Date: 12/25/22 Status: Ordered doxycycline hyclate 100 mg oral tablet 100 mg = 1 tab(s), Oral, BID, # 10 tab(s), 0 Refill(s) Start Date: 12/28/22 Stop Date: 01/02/23 Status: Ordered levothyroxine 112 mcg (0.112 mg) oral tablet 112 mcg = 1 tab(s), Oral, Daily Start Date: 12/25/22 Status: Ordered metFORMIN 500 mg oral tablet 500 mg = 1 tab(s), Oral, Daily Start Date: 12/25/22 Status: Ordered mirtazapine 7.5 mg oral tablet 7.5 mg = 1 tab(s), Oral, Once a day (at bedtime) Start Date: 12/25/22 Status: Ordered montelukast 10 mg oral tablet 10 mg = 1 tab(s), Oral, qPM Start Date: 12/25/22 Status: Ordered Mucinex 600 mg = 1 tab(s), Oral, BID, 0 Refill(s) Start Date: 12/28/22 Status: Ordered nicotine 21 mg-14 mg-7 mg transdermal film, extended release See Instructions, Transdermal Daily, # 1 kit(s), 0 Refill(s) Start Date: 12/28/22 Status: Ordered omeprazole 20 mg oral delayed release capsule 20 mg = 1 cap(s), Oral, Daily Start Date: 12/25/22 Status: Ordered predniSONE 10 mg oral tablet 15 mg = 1.5 tab(s), Oral, Daily Start Date: 12/25/22 Status: Ordered Trelegy Ellipta 200 mcg-62.5 mcg-25 mcg/inh inhalation powder 1 puff(s), INH, Daily Start Date: 12/25/22 Status: Ordered Mental Status 12/28/22 Sensory Perception Corwin No impairment 12/28/22 Level of Consciousness Alert Problem List Condition Confirmation Course Effective Dates Status H ealth Status Informant COPD (chronic obstructive pulmonary disease) Confirmed Active Diabetes Confirmed Active Diverticulitis Confirmed Active H/O Lauren thyroiditis Confirmed Active Cancer of lung Confirmed Active Results Laboratory List Name Date Glucose POC. (POC-GLUCOSE) 12/28/22 Blood Glucose POC 12/28/22 Blood Glucose POC 12/28/22 Glucose POC. (POC-GLUCOSE) 12/28/22 C-Reactive Protein (CRP) 12/28/22 CBC 12/28/22 Comprehensive Metabolic Panel (CMP) 12/28 GFR (eGFR, CKD-EPI) 12/28/22 Procalcitonin 12/28/22 Hgb A1C (Hemoglobin A1C) 12/28/22 Glucose POC. (POC-GLUCOSE) 12/27/22 Blood Glucose POC 12/27/22 C-Reactive Protein (CRP) 12/27/22 CBC 12/27/22 Comprehensive Metabolic Panel (CMP) 12/27 GFR (eGFR, CKD-EPI) 12/27/22 Procalcitonin 12/27/22 Basic Metabolic Panel 12/26/22 CBC w/Auto Diff 12/26/22 GFR (eGFR, CKD-EPI) 12/26/22 Culture - Sputum.. 12/26/22 SARS-CoV-2 Flu RSV PCR Panel (Cepheid) IRDL. (Covid, Flu & RSV Combo test IRDL.) 12/25/22 Troponin I 12/25/22 Urinalysis Complete 12/25/22 Troponin I 12/25/22 CBC w/Auto Diff 12/25/22 Comprehensive Metabolic Panel (Chem 12) 12/25/22 Magnesium Level 12/25/22 NT-proBNP 12/25/22 PT 12/25/22 PTT 12/25/22 Phosphorus Level 12/25/22 Troponin I 12/25/22 Most recent to oldest [Reference Range]: 1 2 3 SARS-CoV-2 (COVID-19) PCR Covid(Cepheid) [NEGATIVE-NEGATIVE] NEGATIVE 1 (12/25/22 6:26 PM) NT-pro BNP [0.0-300.0] 274.0 2 (12/25/22 11:11 AM) eGFR CKD-EPI [>60] 94 3 (12/28/22 6:56 AM) 93 4 (12/27/22 6:44 AM) 96 5 (12/26/22 8:38 AM) Creatinine [0.66-1.25 mg/dL] 0.76 mg/dL (12/28/22 6:56 AM) 0.77 mg/dL (12/27/22 6:44 AM) 0.70 mg/dL (12/26/22 8:38 AM) Estimated Creatinine Clearance 65.42 mL/min (12/28/22 8:56 AM) 64.57 mL/min (12/27/22 10:51 AM) 71.02 mL/min (12/26/22 9:55 AM) UA Bili [NEGATIVE-NEGATIVE mg/dL] Negative mg/dL (12/25/22 2:12 PM) UA Blood [NEGATIVE-NEGATIVE mg/dL] Negative mg/dL (12/25/22 2:12 PM) UA Ca Ox Crystal [0] TRACE (12/25/22 2:12 PM) UA Color Yellow (12/25/22 2:12 PM) UA Glucose [NEGATIVE-NEGATIVE mg/dL] Negative mg/dL (12/25/22 2:12 PM) UA Ketones [NEGATIVE-NEGATIVE mg/dL] Negative mg/dL (12/25/22 2:12 PM) UA Leuk Est [NEGATIVE-NEGATIVE] Negative (12/25/22 2:12 PM) UA Mucous [0] 1+ (12/25/22 2:12 PM) UA Nitrite [NEGATIVE-NEGATIVE] Negative (12/25/22 2:12 PM) UA Protein [NEGATIVE-NEGATIVE mg/dL] Negative mg/dL (12/25/22 2:12 PM) UA RBC [0-5] 1 (12/25/22 2:12 PM) UA Urobilinogen [<2 mg/dL] 0.2 mg/dL (12/25/22 2:12 PM) UA WBC [0-5] 3 (12/25/22 2:12 PM) INR 0.94 6 (12/25/22 11:11 AM) AGAP [8.0-16.0 mmol/L] 6.0 mmol/L *LOW* (12/28/22 6:56 AM) 4.0 mmol/L *LOW* (12/27/22 6:44 AM) 8.0 mmol/L (12/26/22 8:38 AM) Glucose Lvl [75-110 mg/dL] 181 mg/dL *HI* (12/28/22 6:56 AM) 290 mg/dL *HI* (12/27/22 6:44 AM) 183 mg/dL *HI* (12/26/22 8:38 AM) Hct [42.0-52.0 %] 34.1 % *LOW* (12/28/22 6:56 AM) 31.5 % *LOW* (12/27/22 6:44 AM) 35.5 % *LOW* (12/26/22 8:38 AM) Hgb A1c [4.0-6.0 %] 7.0 % 7 *HI* (12/28/22 6:55 AM) Lymph Auto [20.5-51.1 %] 3.5 % *LOW* (12/26/22 8:38 AM) 14.7 % *LOW* (12/25/22 11:11 AM) Magnesium [1.6-2.3 mg/dL] 1.9 mg/dL (12/25/22 11:11 AM) MCH [27.0-31.0 pg] 24.9 pg *LOW* (12/28/22 6:56 AM) 24.9 pg *LOW* (12/27/22 6:44 AM) 24.5 pg *LOW* (12/26/22 8:38 AM) MCHC [32.0-37.0 gm/dL] 29.9 gm/dL *LOW* (12/28/22 6:56 AM) 30.5 gm/dL *LOW* (12/27/22 6:44 AM) 30.1 gm/dL *LOW* (12/26/22 8:38 AM) MCV [78.0-100.0] 83.2 (12/28/22 6:56 AM) 81.6 (12/27/22 6:44 AM) 81.4 (12/26/22 8:38 AM) Maury Auto [1.7-9.3 %] 1.7 % (12/26/22 8:38 AM) 9.9 % *HI* (12/25/22 11:11 AM) Neutro Auto [42.2-75.2 %] 94.1 % *HI* (12/26/22 8:38 AM) 73.0 % (12/25/22 11:11 AM) Osmolality [273-304] 279 (12/28/22 6:56 AM) 278 (12/27/22 6:44 AM) 274 (12/25/22 11:11 AM) Phosphorus [2.5-4.5 mg/dL] 2.2 mg/dL *LOW* (12/25/22 11:11 AM) Platelet [130-400] 423 *HI* (12/28/22 6:56 AM) 390 (12/27/22 6:44 AM) 450 *HI* (12/26/22 8:38 AM) PT [12.2-14.5] 12.6 (12/25/22 11:11 AM) PTT [25.0-36.4] 34.8 (12/25/22 11:11 AM) RBC [4.60-6.10] 4.10 *LOW* (12/28/22 6:56 AM) 3.86 *LOW* (12/27/22 6:44 AM) 4.36 *LOW* (12/26/22 8:38 AM) RDW [11.5-15.0 %] 15.9 % *HI* (12/28/22 6:56 AM) 15.9 % *HI* (12/27/22 6:44 AM) 15.9 % *HI* (12/26/22 8:38 AM) Sodium Lvl [137-145 mmol/L] 136 mmol/L *LOW* (12/28/22 6:56 AM) 132 mmol/L *LOW* (12/27/22 6:44 AM) 134 mmol/L *LOW* (12/26/22 8:38 AM) UA pH 7.0 (12/25/22 2:12 PM) Basophil Auto [0.0-2.0 %] 0.1 % (12/26/22 8:38 AM) 0.5 % (12/25/22 11:11 AM) Bili Total [0.2-1.3 mg/dL] 0.4 mg/dL (12/28/22 6:56 AM) 0.3 mg/dL (12/27/22 6:44 AM) 0.6 mg/dL (12/25/22 11:11 AM) CO2 [22-30 mmol/L] 32 mmol/L *HI* (12/28/22 6:56 AM) 31 mmol/L *HI* (12/27/22 6:44 AM) 29 mmol/L (12/26/22 8:38 AM) CRP [0.0-0.9 mg/dL] 3.8 mg/dL *HI* (12/28/22 6:56 AM) 12.9 mg/dL *HI* (12/27/22 6:44 AM) Eos Auto [0.0-10.0 %] 0.0 % (12/26/22 8:38 AM) 1.3 % (12/25/22 11:11 AM) UA Spec Grav [1.003-1.029] 1.015 (12/25/22 2:12 PM) WBC [4.0-10.8] 13.0 *HI* (12/28/22 6:56 AM) 15.6 *HI* (12/27/22 6:44 AM) 14.5 *HI* (12/26/22 8:38 AM) BUN [9-20 mg/dL] 20 mg/dL (12/28/22 6:56 AM) 21 mg/dL *HI* (12/27/22 6:44 AM) 15 mg/dL (12/26/22 8:38 AM) Calcium Lvl [8.4-10.2 mg/dL] 8.2 mg/dL *LOW* (12/28/22 6:56 AM) 8.4 mg/dL (12/27/22 6:44 AM) 8.7 mg/dL (12/26/22 8:38 AM) Chloride [98-107 mmol/L] 98 mmol/L (12/28/22 6:56 AM) 97 mmol/L *LOW* (12/27/22 6:44 AM) 97 mmol/L *LOW* (12/26/22 8:38 AM) Potassium Lvl [3.6-5.0 mmol/L] 4.6 mmol/L (12/28/22 6:56 AM) 4.4 mmol/L (12/27/22 6:44 AM) 4.4 mmol/L (12/26/22 8:38 AM) Procalcitonin [0.00-0.05 ng/mL] 10.10 ng/mL 8 *HI* (12/28/22 6:56 AM) 12.00 ng/mL 9 *HI* (12/27/22 6:44 AM) A/G Ratio [1.30-1.80] 1.10 *LOW* (12/28/22 6:56 AM) 1.10 *LOW* (12/27/22 6:44 AM) 1.26 *LOW* (12/25/22 11:11 AM) Hemoglobin [14.0-18.0 gm/dL] 10.2 gm/dL *LOW* (12/28/22 6:56 AM) 9.6 gm/dL *LOW* (12/27/22 6:44 AM) 10.7 gm/dL *LOW* (12/26/22 8:38 AM) Gram Stain Result 12/26/22 RARE EPIS 12/26/22 FEW WBCS 12/26/22 MODERATE GRAM POSITIVE COCCI 12/26/22 RARE GRAM POSITIVE PAULO Specimen Source: Sputum Collect Date/Time: 12/26/2022 @ 00:23 Receive Date/Time: 12/26/2022 @ 00:23 [facility] Order Number: [id number] Ordered by: RONIT,EULALIO ORDER COMMENTS: Ordering Location: UNKNOWN (12/26/22 12:23 AM) BUN/Creat Ratio [6.00-20.00] 26.32 *HI* (12/28/22 6:56 AM) 27.27 *HI* (12/27/22 6:44 AM) 11.11 (12/25/22 11:11 AM) NRBC Auto [0 %] 0.0 % (12/26/22 8:38 AM) 0.0 % (12/25/22 11:11 AM) Lymph Absolute [1.5-3.5] 0.5 *LOW* (12/26/22 8:38 AM) 1.5 (12/25/22 11:11 AM) Maury Absolute [0.1-0.6] 0.2 (12/26/22 8:38 AM) 1.0 *HI* (12/25/22 11:11 AM) Eos Absolute [0.0-0.7] 0.0 (12/26/22 8:38 AM) 0.1 (12/25/22 11:11 AM) Baso Absolute [0.0-0.2] 0.0 (12/26/22 8:38 AM) 0.1 (12/25/22 11:11 AM) NRBC Absolute [0] 0.0 (12/26/22 8:38 AM) 0.0 (12/25/22 11:11 AM) UA Clarity Clear (12/25/22 2:12 PM) Neutro Absolute [1.5-6.6] 13.7 *HI* (12/26/22 8:38 AM) 7.7 *HI* (12/25/22 11:11 AM) Glucose POC [70-105 mg/dL] 214 mg/dL *HI* (12/28/22 12:10 PM) 181 mg/dL *HI* (12/28/22 7:15 AM) 171 mg/dL *HI* (12/27/22 8:44 PM) Globulin [1.5-3.8 gm/dL] 2.9 gm/dL (12/28/22 6:56 AM) 2.9 gm/dL (12/27/22 6:44 AM) 3.1 gm/dL (12/25/22 11:11 AM) UA Amorph [0] 1+ (12/25/22 2:12 PM) UA Epithelial [0-10] 1 (12/25/22 2:12 PM) Sputum cult w/smear 12/27/22 NORMAL OJE A 12/28/22 NORMAL RESPIRATORY KAMALJIT. 12/28/22 NO STAPH AUREUS (NO MRSA/MSSA). 12/28/22 NO PSEUDOMONAS AERUGINOSA. Specimen Source: Sputum Collect Date/Time: 12/26/2022 @ 00:23 Receive Date/Time: 12/26/2022 @ 00:23 [facility] Order Number: [id number] Ordered by: EULALIO DEGROOT ORDER COMMENTS: Ordering Location: UNKNOWN (12/26/22 12:23 AM) Alkaline Phosphatase [38-126 unit/L] 87 unit/L (12/28/22 6:56 AM) 95 unit/L (12/27/22 6:44 AM) 105 unit/L (12/25/22 11:11 AM) Albumin [3.5-5.0 gm/dL] 3.2 gm/dL *LOW* (12/28/22 6:56 AM) 3.2 gm/dL *LOW* (12/27/22 6:44 AM) 3.9 gm/dL (12/25/22 11:11 AM) Immature Granulocytes [0.1-0.3 %] 0.6 % *HI* (12/26/22 8:38 AM) 0.6 % *HI* (12/25/22 11:11 AM) Immature Grans (Abs) [0.01-0.03] 0.08 *HI* (12/26/22 8:38 AM) 0.06 *HI* (12/25/22 11:11 AM) AST (SGOT) [15-46 unit/L] 25 unit/L (12/28/22 6:56 AM) 27 unit/L (12/27/22 6:44 AM) 25 unit/L (12/25/22 11:11 AM) Protein, Total, Serum [6.3-8.2 gm/dL] 6.1 gm/dL *LOW* (12/28/22 6:56 AM) 6.1 gm/dL *LOW* (12/27/22 6:44 AM) 7.0 gm/dL (12/25/22 11:11 AM) ALT (SGPT) [0-49 unit/L] 15 unit/L (12/28/22 6:56 AM) 15 unit/L (12/27/22 6:44 AM) 15 unit/L (12/25/22 11:11 AM) Troponin I [0.000-0.034 ng/mL] <0.012 ng/mL 10 (12/25/22 4:52 PM) <0.012 ng/mL 11 (12/25/22 1:37 PM) <0.012 ng/mL 12 (12/25/22 11:11 AM) Blood Glucose, Capillary POC [65-99 mg/dL] 214 mg/dL *HI* (12/28/22 12:11 PM) 181 mg/dL *HI* (12/28/22 7:13 AM) 270 mg/dL *HI* (12/27/22 4:10 PM) Influenza B by PCR [NEGATIVE-NEGATIVE] NEGATIVE 13 (12/25/22 6:26 PM) Influenza A by PCR [NEGATIVE-NEGATIVE] NEGATIVE (12/25/22 6:26 PM) RSV by PCR [NEGATIVE-NEGATIVE] NEGATIVE 14 (12/25/22 6:26 PM) 1Result Comment: Testing was performed using the [employer] GeneXpert SARS-CoV-2 real-time PCR assay. This test has been authorized by the FDA under an Emergency Use Authorization (EUA)for qualitative detection of nucleic acid from the SARS-CoV-2 in nasopharyngeal swab specimens from individuals suspected of COVID-19 by a healthcare provider. This test is only authorized for the duration of the declaration that circumstances exist justifying the authorization of emergency use of in vitro diagnostic tests for detection and/or diagnosis of COVID-19 under Section 564(b)(1) of the Act, 21 U.S.C. 360bbb-3(b)(1), unless the authorization is terminated or revoked sooner. Negative results do not preclude SARS-CoV-2 infection and should not be used as the sole basis for treatment or other patient management decisions. Samples with a repeated presumptive positive result ( which includes Sars-COV-2, SarsCOV 1, or other Sarbecovirus currently known to infect humans) will include additional confirmatory testing to differentiate between these similar viruses. Refer to [employer] website for patient and provider coronavirus testing fact sheets and to www.cdc.gov/COVID19 for additional information. 2Result Comment: [place] for NT-proBNP: Inpatient and ED confirmation of HF Dx: Less than 50 years old: >450 pg/mL 50-74 years old: >900 pg/mL 75 years and older: >1800 pg/mL Inpatient and ED exclusion of HF for all ages: 0-300 pg/mL Outpatient exclusion of HF: Less than 75 years old: 0 - 125 pg/mL 75 years and older: 0 - 450 pg/mL When utilizing the NT-proBNP rule-in cut points, further adjustment for impaired renal function is typically not required. Biotin levels in serum remain elevated for up to 24 hours after oral or intravenous biotin administration and may interfere with this assay to produce unreliable results. Heterophilic antibodies in serum or plasma samples may cause interference in immunoassays. Results which are inconsistent with clinical observations indicate the need for additional testing. The results from this or any other diagnostic test should be used and interpreted only in the context of the overall clinical picture. 3Result Comment: eGFR is calculated using the 2021 CKD-EPI formula, which does not use race. Chronic Kidney Disease stages: Stage 1 : Normal GFR >90 mL/min Stage 2 : Mild CKD: GFR 60-89 mL/min Stage 3A: Moderate CKD GFR 45-59 mL/min Stage 3B: Moderate CKD GFR 30-44 mL/min Stage 4 : Severe CKD GFR 15-29 mL/min Stage 5 : End Stage CKD GFR <15 mL/min 4Result Comment: eGFR is calculated using the 2021 CKD-EPI formula, which does not use race. Chronic Kidney Disease stages: Stage 1 : Normal GFR >90 mL/min Stage 2 : Mild CKD: GFR 60-89 mL/min Stage 3A: Moderate CKD GFR 45-59 mL/min Stage 3B: Moderate CKD GFR 30-44 mL/min Stage 4 : Severe CKD GFR 15-29 mL/min Stage 5 : End Stage CKD GFR <15 mL/min 5Result Comment: eGFR is calculated using the 202 CKD-EPI formula, which does not use race. Chronic Kidney Disease stages: Stage 1 : Normal GFR >90 mL/min Stage 2 : Mild CKD: GFR 60-89 mL/min Stage 3A: Moderate CKD GFR 45-59 mL/min Stage 3B: Moderate CKD GFR 30-44 mL/min Stage 4 : Severe CKD GFR 15-29 mL/min Stage 5 : End Stage CKD GFR <15 mL/min 6Result Comment: INR INTERPRETATION DVT/PE/PVD: INR=2.0-3.0 MECHANICAL HEART VALVE: INR=2.5-3.5 7Result Comment: Greater than or equal to 6.5 : Action Suggested 8Result Comment: PCT <0.500 ng/mL : A PCT level below 0.500 ng/mL on the first day of ICU admission is associated with a low risk for progression to severe sepsis and/or septic shock. PCT >2.00 ng/mL : A PCT level >2.00 ng/mL on the first day of ICU admission is associated with a high risk for progression to severe sepsis and/or septic shock. PCT should always be interpreted in the clinical context of the patient. Therefore physicians should use the PCT result in conjunction with other laboratory findings and clinical signs of the patient. PCT levels below 0.500 ng/mL do not exclude an infection, because localized infections (without systemic signs) may be associated with such low levels. If the PCT measurement is done very early after the systemic infection process has started (usually <6 hours), these values may still be low. Various non-infectious conditions are known to include changes in PCT levels. PCT levels between 0.500 ng/mL and 2.000 ng/mL should be interpreted in the context to the specific clinical background and conditions of the individual patient. It is recommended to re-test PCT within 6-24 hours if any concentrations <2.00 ng/mL are obtained. PCT levels may not be elevated in inpatients infected by certain atypical pathogens, such as Chlamydia pneumonia and Mycoplasma pneumonia. Patients with increased PCT levels due to other conditions include but not limited to: major trauma and/or recent surgical procedure including extracorporeal circulation or mullen, active carcinoma, viral hepatitis, sever liver cirrhosis, prolonged or severe cardiac shock, receiving peritoneal dialysis or hemodialysis treatment, biliary pancreatitis, heat stroke, invasive fungal infections, malaria, and Neonates during the first 2 days of life. Methodology for this assay was changed on 06/04/2020 to the [facility]. 9Result Comment: PCT <0.500 ng/mL : A PCT level below 0.500 ng/mL on the first day of ICU admission is associated with a low risk for progression to severe sepsis and/or septic shock. PCT >2.00 ng/mL : A PCT level >2.00 ng/mL on the first day of ICU admission is associated with a high risk for progression to severe sepsis and/or septic shock. PCT should always be interpreted in the clinical context of the patient. Therefore physicians should use the PCT result in conjunction with other laboratory findings and clinical signs of the patient. PCT levels below 0.500 ng/mL do not exclude an infection, because localized infections (without systemic signs) may be associated with such low levels. If the PCT measurement is done very early after the systemic infection process has started (usually <6 hours), these values may still be low. Various non-infectious conditions are known to include changes in PCT levels. PCT levels between 0.500 ng/mL and 2.000 ng/mL should be interpreted in the context to the specific clinical background and conditions of the individual patient. It is recommended to re-test PCT within 6-24 hours if any concentrations <2.00 ng/mL are obtained. PCT levels may not be elevated in inpatients infected by certain atypical pathogens, such as Chlamydia pneumonia and Mycoplasma pneumonia. Patients with increased PCT levels due to other conditions include but not limited to: major trauma and/or recent surgical procedure including extracorporeal circulation or mullen, active carcinoma, viral hepatitis, sever liver cirrhosis, prolonged or severe cardiac shock, receiving peritoneal dialysis or hemodialysis treatment, biliary pancreatitis, heat stroke, invasive fungal infections, malaria, and Neonates during the first 2 days of life. Methodology for this assay was changed on 06/04/2020 to the [employer] [id number]. 10Result Comment: Troponin Assay Guidelines: Normal: 0.000 - 0.034 ng/mL Note: Biotin may interfere with this assay (>10% bias). The lowest level shown to interfere is 4 ng/mL. The detection to rule out AMI cannot be based on the data from a single blood collection. Consider serial testing and/or clinical correlation for Indeterminate results. Serial sampling is recommended to detect the temporal rise and fall of Troponin I levels characteristic of AMI. Levels between normal and injury extensive enough to conform with AMI as defined by WHO should be interpreted in clinical context of the patient. The ESC/ACC and NACB recommend that the diagnosis of AMI includes the presence of clinical history suggestive of Acute Coronary Syndrome and a maximum concentration of cardiac troponin exceeding the 99th percentile of a normal reference limit on at least one occasion during defibrillations, and cardiac toxins such as anthracyclines. The WHO requires two of the following criteria for the diagnosis of AMI: elevated cardiac markers, evolutionary changes in ECG, history of chest pain. Increased Troponin I concentrations can be found in conditions other than AMI that can result in myocardial damage; sepsis, congestive heart failure, hypertension with left ventricular hypertrophy, hemodynamic compromise, myocarditis, mechanical injury includling cardiac surgery, defibrillations, and cardiac toxins such as anthracyclines. 11Result Comment: Troponin Assay Guidelines: Normal: 0.000 - 0.034 ng/mL Note: Biotin may interfere with this assay (>10% bias). The lowest level shown to interfere is 4 ng/mL. The detection to rule out AMI cannot be based on the data from a single blood collection. Consider serial testing and/or clinical correlation for Indeterminate results. Serial sampling is recommended to detect the temporal rise and fall of Troponin I levels characteristic of AMI. Levels between normal and injury extensive enough to conform with AMI as defined by WHO should be interpreted in clinical context of the patient. The ESC/ACC and NACB recommend that the diagnosis of AMI includes the presence of clinical history suggestive of Acute Coronary Syndrome and a maximum concentration of cardiac troponin exceeding the 99th percentile of a normal reference limit on at least one occasion during defibrillations, and cardiac toxins such as anthracyclines. The WHO requires two of the following criteria for the diagnosis of AMI: elevated cardiac markers, evolutionary changes in ECG, history of chest pain. Increased Troponin I concentrations can be found in conditions other than AMI that can result in myocardial damage; sepsis, congestive heart failure, hypertension with left ventricular hypertrophy, hemodynamic compromise, myocarditis, mechanical injury includling cardiac surgery, defibrillations, and cardiac toxins such as anthracyclines. 12Result Comment: Troponin Assay Guidelines: Normal: 0.000 - 0.034 ng/mL Note: Biotin may interfere with this assay (>10% bias). The lowest level shown to interfere is 4 ng/mL. The detection to rule out AMI cannot be based on the data from a single blood collection. Consider serial testing and/or clinical correlation for Indeterminate results. Serial sampling is recommended to detect the temporal rise and fall of Troponin I levels characteristic of AMI. Levels between normal and injury extensive enough to conform with AMI as defined by WHO should be interpreted in clinical context of the patient. The ESC/ACC and NACB recommend that the diagnosis of AMI includes the presence of clinical history suggestive of Acute Coronary Syndrome and a maximum concentration of cardiac troponin exceeding the 99th percentile of a normal reference limit on at least one occasion during defibrillations, and cardiac toxins such as anthracyclines. The WHO requires two of the following criteria for the diagnosis of AMI: elevated cardiac markers, evolutionary changes in ECG, history of chest pain. Increased Troponin I concentrations can be found in conditions other than AMI that can result in myocardial damage; sepsis, congestive heart failure, hypertension with left ventricular hypertrophy, hemodynamic compromise, myocarditis, mechanical injury includling cardiac surgery, defibrillations, and cardiac toxins such as anthracyclines. 13Result Comment: Results from the Gen[employer]pert Flu Assay should be correlated with clinical history, epidemiological data, and other data available to the clinician evaluating the patient. Negative results do not preclude influenza virus infection and should not be used as the sole basis for treatment or other patient management decisions, as false negative results may occur if virus is present at levels below the analytical limit of detection. 14Result Comment: Results from the Genexpert RSV Assay should be correlated with clinical history, epidemiological data, and other data available to the clinician evaluating the patient. Negative results do not preclude RSV virus infection and should not be used as the sole basis for treatment or other patient management decisions, as false negative results may occur if virus is present at levels below the analytical limit of detection. Radiology Reports * Exam Date Time Procedure Performing Provider Status 12/27/22 11:15 AM XR Chest 1 View Portable Scotty Cadena RT; Auth (Verified) Notes: (XR Chest 1 View Portable) Reason For Exam: dyspnea/pna REPORT FINAL REPORT HISTORY: dyspnea/pna FINDINGS: AP chest 11:07 a.m.: Pericardio-cardiac silhouette within normal limits. Small linear opacities with increased pleural thickness in the right upper lobe. Large right parahilar mass in the superior segment right lower lobe. Smaller pulmonary parenchymal mass in the right lower lobe near the cardiophrenic angle. No consolidation or pleural fluid. No pneumothorax. IMPRESSION: No significant change compared 12/25/2022.. Focal scarring in the right upper lobe. Multiple right lower lobe masses. Final Dictated: 12/27/2022 11:20 am PAT BUSH MD Signed (Electronic Signature): 12/27/2022 11:25 am Signed by: PAT BUSH MD * Exam Date Time Procedure Performing Provider Status 12/25/22 12:[address] Abdomen/Pelvis w/ Contrast Christina Curry ARRT; Auth (Verified) Notes: (CT Abdomen/Pelvis w/ Contrast) Reason For Exam: lower chest pain, eval metastatic disease, hx of lung CA REPORT FINAL REPORT HISTORY: lower chest pain, eval metastatic disease, hx of lung CA FINDINGS: TECHNIQUE: Axial computed tomography images of the abdomen and pelvis with intravenous contrast. CONTRAST: With; 75 ccs isovue 370 COMPARISON: None. LIVER: Unremarkable. GALLBLADDER AND BILE DUCTS: Unremarkable. No calcified stone. No ductal dilation. PANCREAS: Mild age appropriate atrophy. SPLEEN: Unremarkable. ADRENAL GLANDS: Unremarkable. KIDNEYS, URETERS, AND BLADDER: Unremarkable. No hydronephrosis or nephrolithiasis. No ureteral or bladder calculi. Partial distention of the urinary bladder with normal bladder wall thickness. REPRODUCTIVE: Mild enlargement of prostate gland with mass effect on the base of the urinary bladder. STOMACH AND BOWEL: Stomach, small and large bowel are normal in caliber. Moderate stool burden noted. Prominent rectosigmoid diverticulosis Large 1.2 cm calcification in the right lower quadrant appears to be a mesenteric calculus. APPENDIX: No CT evidence for appendicitis. PERITONEUM: No free fluid. No free air. LYMPH NODES: No lymphadenopathy. VASCULATURE: Mild scattered atherosclerosis of the abdominal aorta and branch vessels. BONES: No fracture or suspicious osseous abnormality. Mild spondylosis of the thoracolumbar spine. ABDOMINAL WALL AND SOFT TISSUES: Unremarkable. IMPRESSION: No acute intra-abdominal abnormality. No evidence of metastatic disease in the abdomen and pelvis. Rectosigmoid diverticulosis, no evidence of acute diverticulitis. Final Dictated: 12/25/2022 1:34 pm Cindy Barber MD Signed (Electronic Signature): 12/25/2022 1:39 pm Signed by: Cindy Barber MD * Exam Date Time Procedure Performing Provider Status 12/25/22 12:[address] Angio Pulmonary Christina Conde [employer] OPERATOR; Auth (Verified) Notes: (CT Angio Pulmonary) Reason For Exam: chest pain, hx of lung CA REPORT FINAL REPORT HISTORY: chest pain, hx of lung CA FINDINGS: The examination consists of 2 mm axial images of the chest from the thoracic inlet to the adrenals with intravenous contrast. Comparison: Same day chest x-ray. There is good opacification of the pulmonary arteries with no filling defects in the pulmonary trunk, right and left main pulmonary arteries, segmental nor subsegmental branches of the pulmonary arteries. Normal caliber of the thoracic aorta with moderately calcified and soft tissue plaque atherosclerosis. There is no aortic aneurysm or dissection. Prominent emphysematous changes of upper lobes, right worse than left. Posterior right mid lung soft tissue mass involving the inferior aspect of the right upper lobe andsuperior aspect of the right lower lobe. The mass measures approximately 5.9 x 3.9 x 5.0 cm in craniocaudal, anterior-posterior and transverse dimensions respectively. Medial right lower lobe mass measuring approximately 5.0 x 4.3 x 4.0 cm in the craniocaudal, anterior-posterior, and transverse dimensions respectively. 7 x 7 mm right anterolateral noncalcified pulmonary nodule (series 5, image 43). Left lower lobe calcified granuloma (series 5, image 69). No pneumothorax or pleural effusion. Pleural calcification noted in the anterior and posterior aspect of the upper right hemithorax The airways are patent including the trachea and major bronchi. There are no enlarged axillary lymph nodes. There are no enlarged anterior mediastinal, subcarinal or hilar lymph nodes. Normal heart size. Mild three-vessel coronary artery atherosclerosis. There is no pericardial effusion. No traumatic or suspicious osseous abnormality. IMPRESSION: Large masses within the right lung measuring up to 6 cm in the posterior mid right lung and 5 cm inthe medial right lower lobe. Findings are concerning for lung carcinoma. Recommend PET scan or tissue biopsy if not already obtained to evaluate for recurrence. No significant thoracic lymphadenopathy. Bilateral upper lobe predominant emphysema, right worse than left consistent with COPD. Right pleural calcifications. Final Dictated: 12/25/2022 1:21 pm Cindy Barber MD Signed (Electronic Signature): 12/25/2022 1:26 pm Signed by: Cindy Barber MD * Exam Date Time Procedure Performing Provider Status 12/25/22 11:15 AM XR Chest 2 Views Yossi Bourgeois RT; Auth (Verified) Notes: (XR Chest 2 Views) Reason For Exam: chest pain, SOB REPORT FINAL REPORT HISTORY: chest pain, SOB FINDINGS: Pericardio-cardiac silhouette within normal limits. Large pleural-based soft tissue mass right lower lobe adjacent the lung hilus. Additional masses located in the medial medial right lower lobe territory. Calcified granuloma in the left lower lobe. Linearopacities with apical thickening right upper lobe. There is blunting of the costophrenic angles. IMPRESSION: No previous exams available. Right lower lobe masses which may represent metastatic disease or lungcarcinoma. Focal pleural and parenchymal scarring right upper lobe. Remote granulomatous disease left lower lobe. Final Dictated: 12/25/2022 11:17 am PAT BUSH MD Signed (Electronic Signature): 12/25/2022 11:22 am Signed by: PAT BUSH MD Vital Signs Most recent to oldest [Reference Range]: 1 2 3 Temperature Oral [35.8-37.3 DegC] 36.9 DegC (12/28/22 12:12 PM) 36.5 DegC (12/28/22 7:16 AM) 36.8 DegC (12/28/22 3:48 AM) Temperature Oral (DegF) 102.2 DegF (12/25/22 4:23 PM) Peripheral Pulse Rate [60-100 bpm] 70 bpm (12/28/22 2:19 PM) 69 bpm (12/28/22 12:12 PM) 67 bpm (12/28/22 8:33 AM) Heart Rate Monitored [60-100 bpm] 106 bpm *HI* (12/25/22 2:33 PM) 112 bpm *HI* (12/25/22 1:00 PM) 99 bpm (12/25/22 12:45 PM) Respiratory Rate [14-20 br/min] 20 br/min (12/28/22 2:19 PM) 18 br/min (12/28/22 12:12 PM) 20 br/min (12/28/22 8:33 AM) Blood Pressure [90-140/60-90 mmHg] 121/67mmHg (12/28/22 12:12 PM) 120/60mmHg (12/28/22 7:16 AM) 115/64mmHg (12/28/22 3:48 AM) Mean Arterial Pressure, Cuff [70-110 mmHg] 89 mmHg (12/25/22 2:33 PM) 105 mmHg (12/25/22 1:00 PM) 90 mmHg (12/25/22 12:45 PM) Mean Arterial Pressure Cuff-Monitor 85 mmHg (12/25/22 2:33 PM) 101 mmHg (12/25/22 1:00 PM) 85 mmHg (12/25/22 12:45 PM) SpO2 [92-100 %] 97 % (12/28/22 2:19 PM) 96 % (12/28/22 1:19 PM) 94 % (12/28/22 12:12 PM) SpO2 Location Left hand (12/28/22 1:19 PM) Oxygen Activity Initiate 1 (12/25/22 3:18 PM) Height 158.000 cm (12/25/22 10:55 AM) Height/Length Dosing 158.000 cm (12/25/22 10:58 AM) Weight 55.340 kg (12/25/22 10:55 AM) Weight Dosing 55.340 kg (12/25/22 10:58 AM) 1Result Comment: Nurse started O2 at 2lpm Social History Social History Type Response Tobacco Current everyday tob acco user Tobacco Use:. Sex Hospital Discharge Instructions Patient Education 12/28/2022 13:27:24 Shortness of Breath, Adult Shortness of Breath, Adult Shortness of breath is when a person has trouble breathing enough air or when a person feels like she or he is having trouble breathing in enough air. Shortness of breath could be a sign of a medicalproblem. Follow these instructions at home: ??? Pay attention to any changes in your symptoms. ??? Do not use any products that contain nicotine or tobacco, such as cigarettes, e-cigarettes, andchewing tobacco. ??? Do not smoke. Smoking is a common cause of shortness of breath. If you need help quitting, ask your health care provider. ??? Avoid things that can irritate your airways, such as: ??? Mold. ??? Dust. ??? Air pollution. ??? Chemical fumes. ??? Things that can cause allergy symptoms (allergens), if you have allergies. ??? Keep your living space clean and free of mold and dust. ??? Rest as needed. Slowly return to your usual activities. ??? Take rfxk-hsk-ftqwmuj and prescription medicines only as told by your health care provider. This includes oxygen therapy and inhaled medicines. ??? Keep all follow-up visits as told by your health care provider. This is important. Contact a health care provider if: ??? Your condition does not improve as soon as expected. ??? You have a hard time doing your normal activities, even after you rest. ??? You have new symptoms. Get help right away if: ??? Your shortness of breath gets worse. ??? You have shortness of breath when you are resting. ??? You feel light-headed or you faint. ??? You have a cough that is not controlled with medicines. ??? You cough up blood. ??? You have pain with breathing. ??? You have pain in your chest, arms, shoulders, or abdomen. ??? You have a fever. ??? You cannot walk up stairs or exercise the way that you normally do. These symptoms may represent a serious problem that is an emergency. Do not wait to see if the symptoms will go away. Get medical help right away. Call your local emergency services (911 in the [place] Do not drive yourself to the hospital. Summary ??? Shortness of breath is when a person has trouble breathing enough air. It can be a sign of a medical problem. ??? Avoid things that irritate your lungs, such as smoking, pollution, mold, and dust. ??? Pay attention to changes in your symptoms and contact your health care provider if you have a hard time completing daily activities because of shortness of breath. This information is not intended to replace advice given to you by your health care provider. Make sure you discuss any questions you have with your health care provider. Document Revised: 04/17/2019 Document Reviewed: 04/17/2019 [employer] Patient Education ?? 2021 [employer]. 12/28/2022 13:27:02 Acute Pain, Adult Acute Pain, Adult Acute pain is a type of sudden pain that may last for just a few days or for as long as six months.It is often related to an illness, injury, or medical procedure. Acute pain may be mild, moderate, or severe. Pain can make it hard for you to do your normal, daily activities. It can cause anxiety and lead toother problems if it is left untreated. Treatment depends on the cause and severity of your pain. Acute pain usually goes away once your injury has healed or you are no longer ill. Follow these instructions at home: Medicines ??? Take xjal-ruj-ztowzcl and prescription medicines only as told by your health care provider. ??? Take the lowest dose of medicine for the shortest amount of time needed to relieve the pain. ??? If you are taking prescription pain medicine: ??? Do not stop taking the medicine suddenly. Talk to your health care provider about how and when to discontinue prescription medicine. ??? Do not take more pills than told by your health care provider even if your pain is severe. ??? Do not take other kzvv-liu-xkbsrxr pain medicines in addition to prescription pain medicine unless told by your health care provider. ??? Ask your health care provider if the medicine requires you to avoid driving or using heavy machinery. ??? Ask your health care provider if the medicine can cause constipation. You may need to take these actions to prevent or treat constipation: ??? Drink enough fluid to keep your urine pale yellow. ??? Eat foods that are high in fiber, such as beans, whole grains, and fresh fruits and vegetables. ??? Take hvro-yda-whxebje or prescription medicines. ??? Limit foods that are high in fat and processed sugars, such as fried or sweet foods. Managing pain, stiffness, and swelling If directed, put ice on the affected area. To do this: ??? Put ice in a plastic bag. ??? Place a towel between your skin and the bag. ??? Leave the ice on for 20 minutes, 2???3 times a day. If directed, apply heat to the affected area as often as told by your health care provider. Use theheat source that your health care provider recommends, such as a moist heat pack or a heating pad. ??? Place a towel between your skin and the heat source. ??? Leave the heat on for 20???30 minutes. ??? Remove the heat if your skin turns bright red. This is especially important if you are unable to feel pain, heat, or cold. You may have a greater risk of getting burned. Activity ??? Rest as told by your health care provider. ??? Return to your normal activities as told by your health care provider. Ask your health care provider what activities are safe for you. General instructions ??? Check your pain level as told by your health care provider. ??? Ask your health care provider if other strategies such as distraction, relaxation, or physical therapies can help your pain. ??? Keep all follow-up visits as told by your health care provider. This is important. Contact a health care provider if: ??? Your pain is not controlled by medicine. ??? Your pain does not improve or gets worse. ??? You have side effects from pain medicines, such as vomiting or confusion. Get help right away if you: ??? Have severe pain. ??? Have trouble breathing. ??? Lose consciousness. ??? Have chest pain or pressure that lasts for more than a few minutes, or if you have other symptoms along with chest pain, including if you: ??? Have pain or discomfort in one or both arms, your back, neck, jaw, or stomach. ??? Have shortness of breath. ??? Break out in a cold sweat. ??? Feel nauseous. ??? Become light-headed. These symptoms may represent a serious problem that is an emergency. Do not wait to see if the symptoms will go away. Get medical help right away. Call your local emergency services (911 in the [place] Do not drive yourself to the hospital. Summary ??? Acute pain may be mild, moderate, or severe. It usually goes away once your injury has healed or you are no longer ill. ??? Take wwqh-wml-gdymzdr and prescription medicines only as told by your health care provider. ??? Ask your health care provider if the medicine prescribed to you can cause constipation. ??? Contact a health care provider if your pain is not controlled by medicine. This information is not intended to replace advice given to you by your health care provider. Make sure you discuss any questions you have with your health care provider. Document Revised: 04/01/2020 Document Reviewed: 04/01/2020 [employer] Patient Education ?? 2021 [employer]. 12/28/2022 13:26:42 Lung Cancer Lung Cancer Lung cancer is an abnormal growth of cancerous cells that forms a mass (malignant tumor) in a lung.There are several types of lung cancer. The types are based on the appearance of the tumor cells. The two most common types are: ??? Non-small cell lung cancer. This type of lung cancer is the most common type. Non-small cell lung cancers include squamous cell carcinoma, adenocarcinoma, and large cell carcinoma. ??? Small cell lung cancer. In this type of lung cancer, abnormal cells are smaller than those of non-small cell lung cancer. Small cell lung cancer gets worse (progresses) faster than non-small celllung cancer. What are the causes? The most common cause of lung cancer is smoking tobacco. The second most common cause is exposure to a chemical called radon. What increases the risk? You are more likely to develop this condition if: ??? You smoke tobacco. ??? You have been exposed to: ??? Secondhand tobacco smoke. ??? Radon gas. ??? Uranium. ??? Asbestos. ??? Arsenic in drinking water. ??? Air pollution. ??? You have a family or personal history of lung cancer. ??? You have had lung radiation therapy in the past. ??? You are older than age 65. What are the signs or symptoms? In the early stages, you may not have any symptoms. As the cancer progresses, symptoms may include: ??? A lasting cough, possibly with blood. ??? Fatigue. ??? Unexplained weight loss. ??? Shortness of breath. ??? Loud breathing (wheezing). ??? Chest pain. ??? Loss of appetite. Symptoms of advanced lung cancer include: ??? Hoarseness. ??? Bone or joint pain. ??? Weakness. ??? Change in the structure of the fingernails (clubbing), so that the nail looks like an upside-down spoon. ??? Swelling of the face or arms. ??? Inability to move the face (paralysis). ??? Drooping eyelids. How is this diagnosed? This condition may be diagnosed based on: ??? Your symptoms and medical history. ??? A physical exam. ??? A chest X-ray. ??? A CT scan. ??? Blood tests. ??? Sputum tests. ??? Removal of a sample of lung tissue (lung biopsy) for testing. Your cancer will be assessed (staged) to determine how severe it is and how much it has spread (metastasized). How is this treated? Treatment depends on the type and stage of your cancer. Treatment may include one or more of the following: ??? Surgery to remove as much of the cancer as possible. Lymph nodes in the area may be removed andtested for cancer as well. ??? Medicines that kill cancer cells (chemotherapy). ??? High-energy rays that kill cancer cells (radiation therapy). ??? Targeted therapy. This targets specific parts of cancer cells and the area around them to blockthe growth and spread of the cancer. Targeted therapy can help limit the damage to healthy cells. Follow these instructions at home: Eating and drinking ??? Some of your treatments might affect your appetite. If you are having problems eating, or if you do not have an appetite, meet with a dietitian. ??? If you have side effects that affect your appetite, it may help to: ??? Eat smaller meals and snacks often. ??? Drink high-nutrition and high-calorie shakes or supplements. ??? Eat bland and soft foods that are easy to eat. ??? Avoid eating foods that are hot, spicy, or hard to swallow. General instructions ??? Do not use any products that contain nicotine or tobacco, such as cigarettes and e-cigarettes. If you need help quitting, ask your health care provider. ??? Do not drink alcohol. ??? If you are admitted to the hospital, make sure your cancer specialist (oncologist) is aware. Your cancer may affect your treatment for other conditions. ??? Take ujez-eri-wndzcsi and prescription medicines only as told by your health care provider. ??? Consider joining a support group for people who have been diagnosed with lung cancer. ??? Work with your health care provider to manage any side effects of treatment. ??? Keep all follow-up visits as told by your health care provider. This is important. Where to find more information ??? [place] [employer]: https://www.cancer.org ??? National [employer] [place] (NCI): https://www.cancer.gov Contact a health care provider if you: ??? Lose weight without trying. ??? Have a persistent cough and wheezing. ??? Feel short of breath. ??? Get tired easily. ??? Have bone or joint pain. ??? Have difficulty swallowing. ??? Notice that your voice is changing or getting hoarse. ??? Have pain that does not get better with medicine. Get help right away if you: ??? Cough up blood. ??? Have new breathing problems. ??? Have chest pain. ??? Have a fever. ??? Have swelling in an ankle, leg, or arm, or the face or neck. ??? Have paralysis in your face. ??? Are very confused. ??? Have a drooping eyelid. Summary ??? Lung cancer is an abnormal growth of cancerous cells that forms a mass (malignant tumor) in a lung. ??? There are several types of lung cancer. The types are based on the appearance of the tumor cells. The two most common types are non-small cell and small cell. ??? The most common cause of lung cancer is smoking tobacco. ??? Early symptoms include a lasting cough, possibly with blood, and fatigue, unexplained weight loss, and shortness of breath. ??? After diagnosis, treatment depends on the type and stage of your cancer. This information is not intended to replace advice given to you by your health care provider. Make sure you discuss any questions you have with your health care provider. Document Revised: 07/17/2021 Document Reviewed: 07/17/2021 [employer] Patient Education ?? 2021 [employer]. Follow Up Care 12/25/2022 10:14:28 With:Follow up with primary care provider Address:Unknown When:As needed Comments:Return to ED if symptoms worsenReturn to ED if symptoms worsen Physician Emergency department Note * Nima Jackson MD: PERFORM, MODIFY, SIGN, VERIFY Event Display: ED Note - Physician Authored Date: [id number] Patient: MORALES COFFEY Age: 77 years Sex: Male : 1945 Associated Diagnoses: Lung cancer; Chest pain; Dyspnea; Cancer related pain Author: Nima Jackson MD Basic Information Time seen: Time Seen (Tracking) Time Seen: Nima Jackson MD 12/25/2022 11:03 . Additional information: Chief Complaint from Nursing Triage Note : Chief Complaint 12/25/2022 10:55 EST Chief Complaint chest pain onset last night with sob. hx lung ca . History of Present Illness The patient presents with chest pain. The onset was gradual. The course/duration of symptoms is constant and worsening. Location: generalized. The character of symptoms is sharp. The degree at maximum was severe. The degree at present is severe. There are exacerbating factors including movement andcoughing. The relieving factor is none. Risk factors consist of Hx of COPD, Lung cancer. Associatedsymptoms: shortness of breath. Additional history: Patient lives in [facility] with his and is visiting his daughter who lives locally.. Review of Systems Constitutional symptoms: No fever, Skin symptoms: No rash, Eye symptoms: No icterus, ENMT symptoms: No nasal congestion, Respiratory symptoms: Shortness of breath, cough. Cardiovascular symptoms: Chest pain. Gastrointestinal symptoms: No abdominal pain, Genitourinary symptoms: No dysuria, Musculoskeletal symptoms: No back pain, Neurologic symptoms: No altered level of consciousness, Health Status Allergies: Allergic Reactions (All) No Known Medication Allergies. Medications: (Selected) . Past Medical/ Family/ Social History Medical history: No active or resolved past medical history items have been selected or recorded.. Surgical history: No active procedure history items have been selected or recorded.. Family history: No family history items have been selected or recorded.. Social history: Social & Psychosocial History Social History Tobacco Current everyday tobacco user Tobacco Use:. Electronic Cigarette/Vaping Electronic Cigarette Use: Never. Psychosocial History No active psychosocial history has been recorded . Problem list: Active Problems (5) Cancer of lung COPD (chronic obstructive pulmonary disease) Diabetes Diverticulitis H/O Lauren thyroiditis . Physical Examination Vital Signs Vital Signs 12/25/2022 12:15 EST Peripheral Pulse Rate 98 bpm Heart Rate Monitored 99 bpm Respiratory Rate 20 br/min Systolic Blood Pressure 135 mmHg Diastolic Blood Pressure 77 mmHg Mean Arterial Pressure, Cuff 96 mmHg Mean Arterial Pressure Cufff-Monitor 93 mmHg SpO2 93 % 12/25/2022 11:31 EST Peripheral Pulse Rate 109 bpm HI Respiratory Rate 18 br/min Systolic Blood Pressure 138 mmHg Diastolic Blood Pressure 64 mmHg Mean Arterial Pressure, Cuff 89 mmHg SpO2 95 % 12/25/2022 11:29 EST Heart Rate Monitored 102 bpm HI Respiratory Rate 21 br/min HI Systolic Blood Pressure 138 mmHg Diastolic Blood Pressure 64 mmHg Mean Arterial Pressure, Cuff 89 mmHg Mean Arterial Pressure Cufff-Monitor 86 mmHg 12/25/2022 10:55 EST Temperature Oral 37.3 DegC Peripheral Pulse Rate 91 bpm Respiratory Rate 18 br/min Systolic Blood Pressure 112 mmHg Diastolic Blood Pressure 68 mmHg SpO2 93 % . Measurements 12/25/2022 10:58 EST Weight Dosing 55.340 kg 12/25/2022 10:58 EST Height/Length Dosing 158.000 cm 12/25/2022 10:55 EST Height 158.000 cm Weight 55.340 kg . Basic Oxygen Information 12/25/2022 12:15 EST Oxygen Therapy Room air 12/25/2022 11:31 EST Oxygen Therapy Room air 12/25/2022 10:55 EST Oxygen Therapy Room air . General: Alert, moderate distress, anxious, ill-appearing. Skin: Warm, dry, pink. Head: Normocephalic. Neck: Supple, trachea midline. Eye: Pupils are equal, round and reactive to light, extraocular movements are intact. Ears, nose, mouth and throat: Oral mucosa moist. Cardiovascular: Regular rate and rhythm. Respiratory: Respirations: Tachypneic, Breath sounds: Diminished. Gastrointestinal: Soft, Nontender, Non distended. Musculoskeletal: Normal ROM. Neurological: Alert and oriented to person, place, time, and situation, No focal neurological deficit observed. Psychiatric: Cooperative, Mood and affect: Anxious. Medical Decision Making Differential Diagnosis: Angina, pulmonary embolism, atypical chest pain, pneumonia, costochondritis, pleurisy, chest wall pain, chronic obstructive pulmonary disease, bronchitis, Cancer related pain. Rationale: He appears distressed and uncomfortable. He has been having progressive weight loss. It is not clear from our discussion but I suspect he has advanced cancer. Primary concern for pain is tumor invasion, and PE. He needs pain control and imaging. He has a new oxygen requirement and will need admission. He appears emaciated and clinically dehydrated.. Documents reviewed: Emergency department nurses' notes. Electrocardiogram: No ST-T changes, EP Interp. engine monitor: Normal sinus rhythm. Results review: Lab results : Lab View 12/25/2022 14:12 EST UA Color Yellow UA Clarity Clear UA Spec Grav 1.015 UA Bili Negative mg/dL UA pH 7.0 UA Urobilinogen 0.2 mg/dL UA Blood Negative mg/dL UA Glucose Negative mg/dL UA Ketones Negative mg/dL UA Protein Negative mg/dL UA Nitrite Negative UA Leuk Est Negative UA WBC 3 UA RBC 1 UA Mucous 1+ UA Ca Ox Crystal TRACE UA Amorph 1+ UA Epithelial 1 12/25/2022 13:37 EST Troponin I <0.012 ng/mL 12/25/2022 11:28 EST Estimated Creatinine Clearance 61.38 mL/min 12/25/2022 11:11 EST WBC 10.5 RBC 4.46 LOW Hemoglobin 11.0 gm/dL LOW Hct 36.7 % LOW MCV 82.3 MCH 24.7 pg LOW MCHC 30.0 gm/dL LOW RDW 16.1 % HI Platelet 435 HI Neutro Auto 73.0 % Lymph Auto 14.7 % LOW Maury Auto 9.9 % HI Eos Auto 1.3 % Basophil Auto 0.5 % NRBC Auto 0.0 % Neutro Absolute 7.7 HI Lymph Absolute 1.5 Maury Absolute 1.0 HI Eos Absolute 0.1 Baso Absolute 0.1 NRBC Absolute 0.0 Immature Grans (Abs) 0.06 HI Immature Granulocytes 0.6 % HI PT 12.6 INR 0.94 PTT 34.8 Sodium Lvl 136 mmol/L LOW Potassium Lvl 4.2 mmol/L Chloride 100 mmol/L CO2 32 mmol/L HI AGAP 4.0 mmol/L LOW BUN 9 mg/dL Creatinine 0.81 mg/dL BUN/Creat Ratio 11.11 Glucose Lvl 151 mg/dL HI Calcium Lvl 8.6 mg/dL Phosphorus 2.2 mg/dL LOW Globulin 3.1 gm/dL A/G Ratio 1.26 LOW ALT (SGPT) 15 unit/L AST (SGOT) 25 unit/L Bili Total 0.6 mg/dL Osmolality 274 Magnesium 1.9 mg/dL Alkaline Phosphatase 105 unit/L Protein, Total, Serum 7.0 gm/dL Albumin 3.9 gm/dL eGFR CKD-EPI 92 Troponin I <0.012 ng/mL NT-pro BNP 274.0 , Interpretation Mild anemia, likely cancer related/chronic disease. No troponin elevation to suggest ACS.. Chest X-Ray: Interpretation by Emergency Physician, R midlung opacity concerning for mass.. Radiology results: X-ray (ST) X-Ray: ?? XR Chest 2 Views ?? 12/25/22 11:17:00 FINAL REPORT HISTORY: chest pain, SOB FINDINGS: Pericardio-cardiac silhouette within normal limits. Large pleural-based soft tissue mass right lower lobe adjacent the lung hilus. Additional masses located in the medial medial right lower lobe territory. Calcified granuloma in the left lower lobe. Linearopacities with apical thickening right upper lobe. There is blunting of the costophrenic angles. IMPRESSION: No previous exams available. Right lower lobe masses which may represent metastatic disease or lungcarcinoma. Focal pleural and parenchymal scarring right upper lobe. Remote granulomatous disease left lower lobe. ?? Signed By: PAT BUSH MD , CT (ST) Computed Tomography: ?? CT Abdomen/Pelvis w/ Contrast ?? 12/25/22 13:34:00 FINAL REPORT HISTORY: lower chest pain, eval metastatic disease, hx of lung CA FINDINGS: TECHNIQUE: Axial computed tomography images of the abdomen and pelvis with intravenous contrast. CONTRAST: With; 75 ccs isovue 370 COMPARISON: None. LIVER: Unremarkable. GALLBLADDER AND BILE DUCTS: Unremarkable. No calcified stone. No ductal dilation. PANCREAS: Mild age appropriate atrophy. SPLEEN: Unremarkable. ADRENAL GLANDS: Unremarkable. KIDNEYS, URETERS, AND BLADDER: Unremarkable. No hydronephrosis or nephrolithiasis. No ureteral or bladder calculi. Partial distention of the urinary bladder with normal bladder wall thickness. REPRODUCTIVE: Mild enlargement of prostate gland with mass effect on the base of the urinary bladder. STOMACH AND BOWEL: Stomach, small and large bowel are normal in caliber. Moderate stool burden noted. Prominent rectosigmoid diverticulosis Large 1.2 cm calcification in the right lower quadrant appears to be a mesenteric calculus. APPENDIX: No CT evidence for appendicitis. PERITONEUM: No free fluid. No free air. LYMPH NODES: No lymphadenopathy. VASCULATURE: Mild scattered atherosclerosis of the abdominal aorta and branch vessels. BONES: No fracture or suspicious osseous abnormality. Mild spondylosis of the thoracolumbar spine. ABDOMINAL WALL AND SOFT TISSUES: Unremarkable. IMPRESSION: No acute intra-abdominal abnormality. No evidence of metastatic disease in the abdomen and pelvis. Rectosigmoid diverticulosis, no evidence of acute diverticulitis. ?? Signed By: Cindy Barber MD ?? CT Angio Pulmonary ?? 12/25/22 13:21:00 FINAL REPORT HISTORY: chest pain, hx of lung CA FINDINGS: The examination consists of 2 mm axial images of the chest from the thoracic inlet to the adrenals with intravenous contrast. Comparison: Same day chest x-ray. There is good opacification of the pulmonary arteries with no filling defects in the pulmonary trunk, right and left main pulmonary arteries, segmental nor subsegmental branches of the pulmonary arteries. Normal caliber of the thoracic aorta with moderately calcified and soft tissue plaque atherosclerosis. There is no aortic aneurysm or dissection. Prominent emphysematous changes of upper lobes, right worse than left. Posterior right mid lung soft tissue mass involving the inferior aspect of the right upper lobe andsuperior aspect of the right lower lobe. The mass measures approximately 5.9 x 3.9 x 5.0 cm in craniocaudal, anterior-posterior and transverse dimensions respectively. Medial right lower lobe mass measuring approximately 5.0 x 4.3 x 4.0 cm in the craniocaudal, anterior-posterior, and transverse dimensions respectively. 7 x 7 mm right anterolateral noncalcified pulmonary nodule (series 5, image 43). Left lower lobe calcified granuloma (series 5, image 69). No pneumothorax or pleural effusion. Pleural calcification noted in the anterior and posterior aspect of the upper right hemithorax The airways are patent including the trachea and major bronchi. There are no enlarged axillary lymph nodes. There are no enlarged anterior mediastinal, subcarinal or hilar lymph nodes. Normal heart size. Mild three-vessel coronary artery atherosclerosis. There is no pericardial effusion. No traumatic or suspicious osseous abnormality. IMPRESSION: Large masses within the right lung measuring up to 6 cm in the posterior mid right lung and 5 cm inthe medial right lower lobe. Findings are concerning for lung carcinoma. Recommend PET scan or tissue biopsy if not already obtained to evaluate for recurrence. No significant thoracic lymphadenopathy. Bilateral upper lobe predominant emphysema, right worse than left consistent with COPD. Right pleural calcifications. ?? Signed By: Cindy Barber MD , reviewed radiologist's report. Notes: CT imaging was directly reviewed. No PEs noted. He has two large R lung masses and I suspectthis is directly causing his pain. His pain responded to IV medications. He is still uncomfortable and distressed and will need admission. Discussed ED management and need for admission with hospitalist.. Reexamination/ Reevaluation Course: improving. Pain status: decreased. Interventions: LR bolus 500mL, dilaudid 0.2mg x 3. Impression and Plan Diagnosis Lung cancer (YBW55-EW C34.90, Discharge, Medical) Chest pain (ACL54-VS R07.9, Discharge, Medical) Dyspnea (KEC86-UJ R06.00, Discharge, Medical) Cancer related pain (IYD71-KS G89.3, Discharge, Medical) Calls-Consults - Consult, The patient was discussed with the hospitalist for admission and further managment.. Plan Condition: Improved, Guarded. Disposition: Hospitalist to evaluate for admission.. Counseled: Patient, Family, Regarding diagnosis, Regarding diagnostic results, Regarding treatment plan, Patient indicated understanding of instructions. Addendum Documentation was prepared with the use of electronic mass communications instructor software. Please contact me forquestions, or clarification if needed. [Electronically Signed on: 12/27/2022 09:44 EST] Nima Jackson MD, MD [Verified on: 12/27/2022 09:44 EST] Nima Jackson MD, MD * Felicita Samson PA-C: PERFORM, SIGN, VERIFY Event Display: ED Note - Physician Authored Date: [id number] Patient: MORALES COFFEY Age: 77 years Sex: Male : 1945 Associated Diagnoses: None Author: Felicita Samson PA-C Patient was placed and seen in the [facility]/Provider in Triage to initiate workup and perform a brief history, physical exam and order appropriate tests. Patient will be seen by an NATY and/or a physician who will evaluate the patient further. HPI: In brief, patient is a 26-year-old male with PMH pertinent for HTN, COPD who presents with chest pain and shortness of breath. Reports he has had chest pain since yesterday. Reports he is also had difficulty breathing. Temperature 37.3 (10:55) Systolic Blood Pressure 112 (10:55) Diastolic Blood Pressure 68 (10:55) Pulse 91 (10:55) SpO2 93 (10:55) Respiratory Rate 18 (10:55) Focused physical exam: General: Alert and oriented, no acute distress ENT: Moist oral mucosa Respiratory: No respiratory distress CV: Regular rate and rhythm, no murmurs Neuro: Alert and oriented Plan: Patient is in no acute distress. Lab studies, diagnostic studies, imaging and other treatments have been ordered as indicated. The importance of remaining in the emergency department until evaluation and treatment is completed was discussed with the patient. [Electronically Signed on: 12/25/2022 11:00 EST] Felicita Samson PA-C, PA-C Nima Jackson MD, MD [Verified on: 12/25/2022 11:00 EST] Felicita Samson PA-C, PA-C Nurse Progress note * Cherry Torres RN: PERFORM Event Display: Progress Note-Nurse Authored Date: [id number] Pt in bed with eyes closed. Responds appropriately to verbal stimuli. Denies discomfort. Call-lightw/i reach. Bed in lowest position. NADN. Frequent rounding. [Electronically Signed on: 12/28/2022 07:24 EST] Cherry Torres RN [Verified on: 12/28/2022 07:24 EST] Cherry Torres RN * Promise Carlos CHILD CARE ASSOCIATE TEACHER: PERFORM Event Display: Progress Note-Nurse Authored Date: [id number] IV access removed. Prefers to wait for family to go over discharge instructions. [Electronically Signed on: 12/28/2022 14:22 EST] Promise Carlos RN BSN * Promise Carlos RN BSN: PERFORM Event Display: Progress Note-Nurse Authored Date: [id number] Discharge instructions, f/u information and Rx's provided to patient and family. Used commissioner of relocation services [place] huff # [id number]. Family verbalizes understanding of all instructions. Escorted out via wheelchair. Stable at discharge. [Electronically Signed on: 12/28/2022 15:26 EST] Promise Carlos RN BSN * Cherry Torres RN: PERFORM Event Display: Progress Note-Nurse Authored Date: [id number] Pt alert/awake in bed. Bed in lowest position. Call-light w/i reach. Denies discomfort. NADN at this time. Frequent rounding. [Electronically Signed on: 12/27/2022 11:19 EST] Cherry Torres RN [Verified on: 12/27/2022 11:19 EST] Cherry Torres RN * Cherry Torres RN: PERFORM Event Display: Progress Note-Nurse Authored Date: [id number] 1808: Pt awake/alert in bed. Bed in lowest position. Call-light w/i reach. Denies discomfort. NADN at this time. Frequent rounding. [Electronically Signed on: 12/27/2022 18:19 EST] Cherry Torres RN * Jonathan Kitchen RN: PERFORM Event Display: Progress Note-Nurse Authored Date: [id number] 1855- Pt resting comfortably in bed with family at bedside. No signs of distress noted. Call light within reach. Denies any needs. [Electronically Signed on: 12/27/2022 19:18 EST] Jonathan Kitchen RN * Jonathan Kitchen RN: PERFORM Event Display: Progress Note-Nurse Authored Date: [id number] 0628- Pt resting comfortably in bed with family at bedside. No signs of distress noted. Call light within reach. Denies any needs. [Electronically Signed on: 12/28/2022 06:35 EST] Jonathan Kitchen RN * Cherry Torres RN: PERFORM Event Display: Progress Note-Nurse Authored Date: [id number] Pt in bed. Awake and alert. at BS. Bed in lowest position. Call-light w/i reach. Frequent rounding. [Electronically Signed on: 12/26/2022 07:37 EST] Cherry Torres RN [Verified on: 12/26/2022 07:37 EST] Cherry Torres RN * Cherry Torres RN: PERFORM Event Display: Progress Note-Nurse Authored Date: [id number] 1745: Pt in bed, family at BS. Bed in lowest position. Call-light w/i reach. requested for this RN to contact Dr. Chaudhary to restart home dose of levothyroxine. Note new orders. Pt denies discomfort. [Electronically Signed on: 12/26/2022 17:46 EST] Cherry Torres RN * Jonathan Kitchen RN: PERFORM Event Display: Progress Note-Nurse Authored Date: [id number] 1900- Pt resting comfortably in bed with family at bedside. Call light within reach. No signs of distress noted. Denies any needs. [Electronically Signed on: 12/26/2022 19:23 EST] Jonathan Kitchen RN * Jonathan Kitchen RN: PERFORM Event Display: Progress Note-Nurse Authored Date: [id number] 0645- Pt resting comfortably in bed with family at bedside. Call light within reach. No signs of distress noted. Denies any needs. [Electronically Signed on: 12/27/2022 07:19 EST] Jonathan Kitchen RN Respiratory therapy Hospital Note * Jose D Wallace CONTINUOUS MINER OPERATOR: PERFORM Event Display: Respiratory Therapy Note Authored Date: [id number] Walking sat check: Pt is 95% on RA rest. 1 minute: Pt is 98% on RA while walking. 2 minute: Pt is 91% on RA while walking. 3 minute: Pt is 86% on RA while walking. RT placed pt on 2L via NC SPO2 97%. 4 minute: Pt is 98% on 2L via NC while walking. 5 minute: Pt is 98 on 2L via NC while walking. Pt is 98% on 2L via NC at rest recovery . Hospital Summary note * RU LAMAR DNP: RU HERNÁNDEZ DNP: Promise Ceballos RN BSN: Kamila Amado SCIENTIST PROPAGATOR: PERFORM, SIGN Kamila Ferguson SCIENTIST PROPAGATOR: SIGN, VERIFY Kamila Ferguson SCIENTIST PROPAGATOR: VERIFY Event Display: Inpatient Patient Summary Authored Date: [id number] [place] [id number] Patient Information Name: MORALES COFFEY Age: 77 Years Date of : 1945 Phone: Attending Physician MAHDI FABI CROSS Primary Care Physician NONE, DOC Allergies: No Known Medication Allergies Diagnosis Cancer related pain; Chest pain; Dyspnea; Lung cancer [facility] would like to thank you for allowing us to assist you with your healthcare needs. The following includes patient education materials and information regarding your injury/illness. Our entire staff strives to provide a very good experience for our patients and their families. You may receive, by mail, a survey about your experience with us at [facility]. PLEASE ENSURE YOU FOLLOW-UP PER THE INSTRUCTIONS BELOW! MORALES COFFEY has been given the following list of patient education materials, prescriptions and follow-up instructions: Medication Information [facility] provided you with a list of medications post discharge. Pleaseensure you follow up with your Primary Care Physician. Any specific questions regarding your chronic medications and dosages should be discussed with your physician and pharmacist. New Medications Printed Prescriptions doxycycline (doxycycline hyclate 100 mg oral tablet) 1 tab(s) Oral 2 times a day for 5 Days. Refills: 0. Next Dose: nicotine (nicotine 21 mg-14 mg-7 mg transdermal film, extended release) Transdermal Daily. Refills:0. Next Dose: Other Medications guaiFENesin (Mucinex) 600 Milligram Oral 2 times a day. Next Dose: Medications to Continue That Have Not Changed Other Medications albuterol (albuterol 90 mcg/inh inhalation aerosol) 2 puff(s) Inhalation every 6 hours as needed Shortness of Breath or wheezing. Next Dose: fluticasone/umeclidinium/vilanterol (Trelegy Ellipta 200 mcg-62.5 mcg-25 mcg/inh inhalation powder)1 puff(s) Inhalation every day. Next Dose: levothyroxine (levothyroxine 112 mcg (0.112 mg) oral tablet) 1 tab(s) Oral every day. Next Dose: metFORMIN (metFORMIN 500 mg oral tablet) 1 tab(s) Oral every day. Next Dose: mirtazapine (mirtazapine 7.5 mg oral tablet) 1 tab(s) Oral once a day (at bedtime). Next Dose: montelukast (montelukast 10 mg oral tablet) 1 tab(s) Oral once a day (in the evening). Next Dose: multivitamin (Daily Leslie oral tablet) 1 tab(s) Oral every day. Next Dose: omeprazole (omeprazole 20 mg oral delayed release capsule) 1 cap Oral every day. Next Dose: predniSONE (predniSONE 10 mg oral tablet) 1.5 tab(s) Oral every day. Next Dose: No Longer Take the Following Medications albuterol-ipratropium (albuterol-ipratropium 2.5 mg-0.5 mg/3 mL inhalation solution) 3 Milliliter Nebulized inhalation 4 times a day as needed Shortness of Breath or wheezing. nabumetone (nabumetone 500 mg oral tablet) 1 tab(s) Oral 2 times a day as needed knee pain. [facility]: [id number] 12/28/2022 15:39:30 Immunizations ?No Immunizations Documented This Visit Follow-up Instructions: With: Address: When: Follow up with primary care provider Within As needed Comments: Return to ED if symptoms worsen Return to ED if symptoms worsen Patient Activity Level: As Tolerated Patient Activity Restrictions: Do not use alcohol, No heavy lifting, Do not smoke or use tobacco products Patient Diet: Prudent AHA Diet, ADA Diet Comment: [employer] Patient Portal [employer] Patient Portal is a personal online tool that provides anywhere, anytime access to portions of your personal health record at [facility]. Information is available on the portal for patient???s age 18 years and older with a qualifying visit type. Once signed up for [employer] you can: ? Review portions of your medical records online in a safe and secure environment ? Update your health information (allergies, medications, conditions, etc.) ? View, print, or download a summary of your information to provide to your doctor. ? Once enrolled in the portal you may also connect and manage your health record through an application of your choice. Learn more at: [email or web address] If you provided an email address upon registration, you will receive an invitation link from [employer]. (If you do not get the email, check your Junk Folder.) If you did not provide an email address during registration, you may contact the [facility] staff at [email or web address] For technical support once you have joined the Patient Portal, [employer] provides excellent online resources that are available 21/06 by clicking the ???Info??? link from the [employer] home page in the bottom right-hand corner. Patient Education Materials: Shortness of Breath, Adult; Acute Pain, Adult; Lung Cancer doxycycline (oral/injection) (DOX sherlyn strange) Acticlate, Adoxa, Alodox, Avidoxy, Doryx, Mondoxyne NL, Monodox, Morgidox, Okebo, Oracea, Oraxyl, Targadox, Vibramycin What is the most important information I should know about doxycycline? You should not take this medicine if you are allergic to any tetracycline antibiotic. Children younger than 8 years old should use doxycycline only in cases of severe or life-threatening conditions. This medicine can cause permanent yellowing or graying of the teeth in children Using doxycycline during could harm the unborn baby or cause permanent tooth discoloration later in the baby's life. What is doxycycline? Doxycycline is a tetracycline antibiotic that Doxycycline is used to treat many different bacterial infections, such as acne, urinary tract infections, intestinal infections, eye infections, gonorrhea, chlamydia, periodontitis (gum disease), andothers. Doxycycline is also used to treat blemishes, bumps, and acne-like lesions caused by rosacea. Doxycycline will not treat facial redness caused by rosacea. Some forms of doxycycline are used to prevent malaria, to treat anthrax, or to treat infections caused by mites, ticks, or lice. Doxycycline may also be used for purposes not listed in this medication guide. What should I discuss with my healthcare provider before taking doxycycline? You should not take this medicine if you are allergic to doxycycline or other tetracycline antibiotics such as demeclocycline, minocycline, tetracycline, or tigecycline. Tell your doctor if you have ever had: ? liver disease; ??? kidney disease; ??? asthma or sulfite allergy; ??? increased pressure inside your skull; or ??? if you also take isotretinoin, seizure medicine, or a blood thinner such as warfarin (Coumadin). If you are using doxycycline to treat gonorrhea, your doctor may test you to make sure you do not also have syphilis, another sexually transmitted disease. Taking this medicine during may affect tooth and bone development in the unborn baby. Taking doxycycline during the last half of can cause permanent tooth discoloration later in the baby's life. Tell your doctor if you are or if you become . Doxycycline can make control pills less effective. Ask your doctor about using a non-hormonalbirth control (condom, diaphragm with spermicide) to prevent . Doxycycline can pass into breast milk and may affect bone and tooth development in a nursing infant. Do not breastfeed while you are taking doxycycline. Doxycycline can cause permanent yellowing or graying of the teeth in children younger than 8 years old. Children should use doxycycline only in cases of severe or life-threatening conditions such as anthrax or [place] spotted fever. The benefit of treating a serious condition may outweigh any risks to the child's tooth development. How should I take doxycycline? Follow all directions on your prescription label and read all medication guides or instruction sheets. Use the medicine exactly as directed. Take doxycycline with a full glass of water. Drink plenty of liquids while you are taking doxycycline. Read and carefully follow any Instructions for Use provided with your medicine. Ask your doctor or pharmacist if you do not understand these instructions. Most brands of doxycyline may be taken with food or milk if the medicine upsets your stomach. Different brands of doxycycline may have different instructions about taking them with or without food. Take Oracea on an empty stomach, at least 1 hour before or 2 hours after a meal. You may need to split a doxycycline tablet to get the correct dose. Follow your doctor's instructions. Swallow a delayed-release capsule or tablet whole. Do not crush, chew, break, or open it. Measure liquid medicine with the dosing syringe provided, or with a special dose-measuring spoon ormedicine cup. If you do not have a dose-measuring device, ask your pharmacist for one. If you take doxycycline to prevent malaria: Start taking the medicine 1 or 2 days before entering an area where malaria is common. Continue taking the medicine every day during your stay and for at least 4 weeks after you leave the area. Doxycycline is usually given by injection only if you are unable to take the medicine by mouth. A healthcare provider will give you this injection as an infusion into a vein. Use this medicine for the full prescribed length of time, even if your symptoms quickly improve. Skipping doses can increase your risk of infection that is resistant to medication. Doxycycline will not treat a viral infection such as the flu or a common cold. Store at room temperature away from moisture, heat, and light. Throw away any unused medicine after the expiration date on the label has passed. Using doxycycline can cause damage to your kidneys. What happens if I miss a dose? Take the medicine as soon as you can, but skip the missed dose if it is almost time for your next dose. Do not take two doses at one time. What happens if I overdose? Seek emergency medical attention or call the Poison Help line at . What should I avoid while taking doxycycline? Do not take iron supplements, multivitamins, calcium supplements, antacids, or laxatives within 2 hours before or after taking doxycycline. Avoid taking any other antibiotics with doxycycline unless your doctor has told you to. Doxycycline could make you sunburn more easily. Avoid sunlight or tanning beds. Wear protective clothing and use sunscreen (SPF 30 or higher) when you are outdoors. Antibiotic medicines can cause diarrhea, which may be a sign of a new infection. If you have diarrhea that is watery or bloody, call your doctor. Do not use anti-diarrhea medicine unless your doctor tells you to. What are the possible side effects of doxycycline? Get emergency medical help if you have signs of an allergic reaction (hives, difficult breathing, swelling in your face or throat) or a severe skin reaction (fever, sore throat, burning in your eyes,skin pain, red or purple skin rash that spreads and causes blistering and peeling). Seek medical treatment if you have a serious drug reaction that can affect many parts of your body.Symptoms may include: skin rash, fever, swollen glands, flu- like symptoms, muscle aches, severe weakness, unusual bruising, or yellowing of your skin or eyes. This reaction may occur several weeks after you began using doxycycline. Call your doctor at once if you have: ? severe stomach pain, diarrhea that is watery or bloody; ??? throat irritation, trouble swallowing; ??? chest pain, irregular heart rhythm, feeling short of breath; ??? little or no urination; ??? low white blood cell counts--fever, chills, swollen glands, body aches, weakness, pale skin, easy bruising or bleeding; ??? increased pressure inside the skull--severe headaches, ringing in your ears, dizziness, nausea,vision problems, pain behind your eyes; or ??? signs of liver or pancreas problems--loss of appetite, upper stomach pain (that may spread to your back), tiredness, nausea or vomiting, fast heart rate, dark urine, jaundice (yellowing of the skin or eyes). Common side effects may include: ? nausea, vomiting, upset stomach, loss of appetite; ??? mild diarrhea; ??? skin rash or itching; ??? darkened skin color; or ??? vaginal itching or discharge. This is not a complete list of side effects and others may occur. Call your doctor for medical advice about side effects. You may report side effects to FDA at 5-997-BCH-1612. What other drugs will affect doxycycline? Sometimes it is not safe to use certain medications at the same time. Some drugs can affect your blood levels of other drugs you take, which may increase side effects or make the medications less effective. Other drugs may affect doxycycline, including prescription and vmaa-yeh-tsuqoga medicines, vitamins, and herbal products. Tell your doctor about all your current medicines and any medicine you start or stop using. Where can I get more information? Your pharmacist can provide more information about doxycycline. Remember, keep this and all other medicines out of the reach of children, never share your medicines with others, and use this medication only for the indication prescribed. Every effort has been made to ensure that the information provided by [employer]. [employer]') is accurate, up-to-date, and complete, but no guarantee is made to that effect. Drug information contained herein may be time sensitive. [employer] information has been compiled for use by healthcare practitioners and consumers in the [place] and therefore [employer] does not warrant that uses outside of the [place] are appropriate, unless specifically indicated otherwise. [employer] drug information does not endorse drugs, diagnose patients or recommend therapy. [employer] drug information isan informational resource designed to assist licensed healthcare practitioners in caring for their p atients and/or to serve consumers viewing this service as a supplement to, and not a substitute for, the expertise, skill, knowledge and judgment of healthcare practitioners. The absence of a warningfor a given drug or drug combination in no way should be construed to indicate that the drug or drug combination is safe, effective or appropriate for any given patient. [employer] does not assume any responsibility for any aspect of healthcare administered with the aid of information [employer] provides. The information contained herein is not intended to cover all possible uses, directions, precautions, warnings, drug interactions, allergic reactions, or adverse effects. If you have questions about the drugs you are taking, check with your doctor, nurse or pharmacist. Copyright 0790-7112 [employer]. Version: 21.04. Revision Date: 10/02/2020. nicotine (transdermal) ([place]) HabitJeri crockett C-Q, Nicotine System Kit What is the most important information I should know about nicotine transdermal? Follow all directions on your medicine label and package. Tell each of your healthcare providers about all your medical conditions, allergies, and all medicines you use. What is nicotine? Nicotine is the primary ingredient in tobacco products. Nicotine transdermal (skin patch) is a medical product used to help you stop smoking and help reduce nicotine withdrawal symptoms as you quit smoking. Nicotine may also be used for purposes not listed in this medication guide. What should I discuss with my healthcare provider before using nicotine transdermal? Nicotine transdermal is not approved for use by anyone younger than 18 years old. Ask a doctor or pharmacist if this medicine is safe to use if you have ever had: ? heart disease, irregular heartbeats; ??? a heart attack or stroke; ??? untreated or uncontrolled high blood pressure; ??? blood circulation problems; ??? pheochromocytoma (tumor of the adrenal gland); ??? diabetes; ??? a thyroid disorder; ??? a stomach ulcer; ??? liver disease; or ??? if your skin is sensitive to adhesive tape or bandages. Do not use nicotine transdermal without medical advice if you are . Use effective control, and tell your doctor if you become during treatment. Smoking cigarettes during can cause low weight, miscarriage, or stillbirth. Using anicotine replacement product during or while breast-feeding may be safer than smoking. However, you should try to stop smoking without using a nicotine replacement product if you are or breast-feeding. Talk with your doctor about the best way for you to stop smoking. It may not be safe to breastfeed while using this medicine. Ask your doctor about any risk. The nicotine transdermal patch may burn your skin if you wear the patch during an MRI (magnetic resonance imaging). Remove the patch before undergoing such a test. How should I use nicotine transdermal? Nicotine transdermal is only part of a complete program of treatment that may also include counseling, group support, and behavior changes. Your success will depend on your participation in all aspects of your smoking cessation program. Use exactly as directed on the label, or as prescribed by your doctor. Start using the transdermal patch on the same day you stop (quit) smoking or using tobacco products. Your patch strength and number of weeks of treatment will depend on how many cigarettes you smoked daily before quitting. Read and carefully follow any Instructions for Use provided with your medicine. Ask your doctor or pharmacist if you do not understand these instructions. Wash your hands after applying or removing a nicotine skin patch. Apply the patch to clean, dry, and hairless skin on your chest or the outer part of your upper arm.Press the patch firmly into place for about 10 seconds to make sure it sticks. You may leave the patch on while bathing, showering, or swimming. Do not wear more than one nicotine patch at a time. Never cut a skin patch. Do not wear a nicotine patch at night if you have vivid dreams or trouble sleeping. If a patch falls off, try sticking it back into place. If it does not stick well, put on a new patch. You may wear a Habitrol patch for 24 hours. You may wear a Nicoderm CQ patch for 16 or 24 hours (wear for 24 hours if you crave cigarettes whenyou wake up in the morning). Remove the skin patch after 24 hours and replace it with a new one. Choose a different place on your body to wear the patch each time you put on a new one. Do not use the same skin area twice within 7 days. After removing a skin patch fold it in half, sticky side in, and put it back into its pouch. Do not use nicotine patches for longer than 8 weeks without the advice of your doctor. Store at room temperature away from moisture and heat. Keep each patch in its foil pouch until you are ready to use it. Save the pouch so you can use it to throw away any used patches. Keep both used and unused nicotine patches out of the reach of children or pets. The amount of nicotine in a used or unused skin patch can be fatal to a child who accidentally sucks or chews on the patch. Seek emergency medical attention if this happens. What happens if I miss a dose? Apply a skin patch as soon as you remember. Do not wear a patch for longer than 24 hours. Do not use extra patches to make up the missed dose. What happens if I overdose? Seek emergency medical attention or call the Poison Help line at . Overdose symptoms may include severe dizziness, nausea, vomiting, diarrhea, weakness, and fast heart rate. What should I avoid while using nicotine transdermal? Avoid using lotions, oils, or moisturizing soaps on the skin where you plan to wear a nicotine transdermal patch, or it may not stick well. What are the possible side effects of nicotine transdermal? Get emergency medical help if you have signs of an allergic reaction: hives; difficult breathing; swelling of your face, lips, tongue, or throat. Stop using nicotine transdermal and call your doctor at once if you have: ? fast or pounding heartbeats, fluttering in your chest; ??? extreme weakness or dizziness; ??? severe nausea and vomiting; or ??? redness, swelling, or skin rash where a nicotine patch was worn (especially if these symptoms do not clear up within 4 days after the patch was removed). Common side effects may include: ? dizziness; ??? sleep problems (insomnia), strange dreams; ??? dry mouth, upset stomach; ??? joint or muscle pain; ??? headache; or ??? mild skin irritation where the patch is worn. This is not a complete list of side effects and others may occur. Call your doctor for medical advice about side effects. You may report side effects to FDA at 2-981-JPI-1825. What other drugs will affect nicotine? Other drugs may affect nicotine transdermal, including prescription and aefe-rrk-oaqsimk medicines,vitamins, and herbal products. Tell your doctor about all your current medicines and any medicine you start or stop using. Where can I get more information? Your pharmacist can provide more information about nicotine. Remember, keep this and all other medicines out of the reach of children, never share your medicines with others, and use this medication only for the indication prescribed. Every effort has been made to ensure that the information provided by [employer]') is accurate, up-to-date, and complete, but no guarantee is made to that effect. Drug information contained herein may be time sensitive. [employer] information has been compiled for use by healthcare practitioners and consumers in the [place] and therefore [employer] does not warrant that uses outside of the [place] are appropriate, unless specifically indicated otherwise. [employer] drug information does not endorse drugs, diagnose patients or recommend therapy. [employer] drug information isan informational resource designed to assist licensed healthcare practitioners in caring for their p atients and/or to serve consumers viewing this service as a supplement to, and not a substitute for, the expertise, skill, knowledge and judgment of healthcare practitioners. The absence of a warningfor a given drug or drug combination in no way should be construed to indicate that the drug or drug combination is safe, effective or appropriate for any given patient. [facility] does not assume any responsibility for any aspect of healthcare administered with the aid of information [facility] provides. The information contained herein is not intended to cover all possible uses, directions, precautions, warnings, drug interactions, allergic reactions, or adverse effects. If you have questions about the drugs you are taking, check with your doctor, nurse or pharmacist. Copyright 1968-9617 [facility]. Version: 3.01. Revision Date: 07/06/2019. Stroke ??? What You Should Know Stroke is the third leading cause of in the [place] andthe leading cause of disability among adults. A stroke happens when blood flow to the brain is blocked, either by a blood clot in a brain artery or from a burst brain vessel. When this happens part or all of the brain is deprived of oxygen which leads to the of brain cells. Know the Risk Factors for Stroke and take measures to control them. Although some risk factors are out of your control, like age (stroke risk doubles after age 55) and race ( Americans and Hispanics have a greater risk of stroke), you can modify many factors. Stroke prevention guidelines from the [place] [employer] include: *Controlling high blood pressure *Stopping smoking *Finding out if you have atrial fibrillation *Exercising *Monitoring cholesterol levels *Limiting alcohol intake *Maintaininga low sodium/low fat diet *Properly treating circulatory problems and diabetes Know the Warning Signs of a Stroke - When trying to decide if signs and symptoms may be pointing toward a stroke, SUDDENis the hardy word. Call 911 and get to the nearest emergency department if you or someone else experiences: *Sudden numbness or weakness of the face, arms or legs, especially on one side of the body. *Sudden confusion, trouble speaking or understanding. *Sudden trouble seeing in one or both eyes. *Sudden trouble walking, dizziness, loss of balance or coordination. *Sudden severe headache with no known cause. Follow-up with your doctor after discharge. If you do not currently have a regular doctor, we encourage you to find one. It is important to take any medications EXACTLY as your doctor prescribes. A stroke is a BRAIN ATTACK. Many strokes can be prevented. Take control of your risk factors for stroke, know the warning signs, and if you experience any of them, call 911 right away. Every minute counts! Warfarin (Coumadin??) ??? What You Should Know Warfarin is a blood thinner medication used to prevent blood clots. If you are being discharged on this medication, it is very important to follow theseinstructions: - Compliance - Take the medication exactly as instructed. Do not skip a dose or increase your dose unless instructed to do so by your doctor. - Dietary Advice - Eat a consistent amount of foods containing Vitamin K. Foods with high levels of Vitamin K, including liver and leafy green vegetables, may decrease the effectiveness of the blood thinner. Major changes in dietary habits canaffect how well the medication works. - Follow Up Monitoring - The effectiveness of the medication will be monitored through blood draws to evaluate your PT/INR levels. The medication dosage may be adjusted by your doctor based upon these results. Keep all doctor appointments and appointments for PT/INR blood draws. - Adverse Drug Reactions and Interactions ??? Besides your diet, other medications can change how blood thinners work. Medications containing aspirin can increase your risk of bleeding when taken with blood thinners. Vitamins and herbal products can also interact with the blood thinner. Make sure your doctor knows about every medication that you are taking. Report any signs of serious bleeding to your doctor immediately. FOOD AND DRUG INTERACTIONS We hope this information will be helpful to you. Every drug your physician orders for you may not be listed here. Should you have questions, please ask your doctor, pharmacist, or dietitian. Pharmacist - [phone] Registered Dietitian - [phone] (ext. [phone]) Many drugs have the possibility of changing your nutritional health. Drugs may interact with foods to reduce absorption, alter distribution, or increase excretion of nutrients. Drugs may also have anindirect effect on nutritional health by producing side effects such as decreased appetite, nausea,vomiting, altered sense of taste or unpleasant taste, dry mouth, diarrhea or gas. Food-drug interactions occur more frequently and are often more severe in the elderly and chronically ill. Many drugs may be taken with or without food. For best results, take drugs in the same order and atabout the same time every day. If your medication must be taken on an empty stomach , you must either take it one hour before a meal or wait until two hours after the meal. The greater the time between food and drug intake, the less chance for an interaction. In general, it is best and safest to take your pills with 8 ounces (1cup) of water. DRUG ALLERGIES AND PRECAUTIONS Drugs may cause allergic reactions. Allergic reactions may be exhibited by a rash, itching, wheezing or shortness of breath. If you have any allergic symptoms, or any severe or new symptom, call yourphysician right away. Please note any precautions or side effects listed for drugs you are taking. Notify your physician if you experience any severe side effects. MEDICATIONS NSAIDS (Non-steroidal anti-inflammatory drugs): These drugs should be taken with food or milk to avoid stomach upset. Some drugs in this category are ibuprofen (Motrin, Advil), diclofenac (Cataflam, Voltaren), Etodolac (Lodine), indomethacin (Indocin), ketorolac (toradol), meloxicam (Mobic), naproxen (Naprosyn, Aleve, Anaprox), piroxicam (Feldene), sulindac (Clinoril), and celecoxib (Celebrex). BLOOD THINNERS (Anticoagulants) see Warfarin (Coumadin): Food and Herbal Interactions Patient Education handout given to you when this medication was first started. Antibiotics (Anti-Infectives): may cause diarrhea or stomach upset. Females should report symptoms of vaginitis (vaginal itching, painful urination, vaginal discharge). Fluoroquinolones (e.g., Cipro, Levaquin, Avelox) ??? should be taken with plenty of water. They should not be taken with dairy foods (milk, yogurt), antacids or other products containing calcium, iron, magnesium or zinc. Tetracyclines - best taken on an empty stomach with a full glass of water. Doxycycline and minocycline may be taken with food or milk; but other tetracyclines should not be taken with dairy products. Metronidazole (Flagyl) ??? do not drink alcohol of any kind while taking this medication. Read labels carefully ??? many grjq-hvm-qdfocym cough, cold, or other liquid medications contain alcohol. Rifampin - may interfere with effects of contraceptives. Other methods of control are recommended while being treated with rifampin. ACETAMINOPHEN (Tylenol): Please be aware that acetaminophen can cause serious health problems, including liver damage, if taken in excessive amounts. Many cpms-ldw-eohtwvr and prescription drugs contain acetaminophen. Some of these include: Panadol, Little Fevers, Feverall, Excedrin, Goody???s, andVanquish. Many narcotic pain relievers also contain acetaminophen. When purchasing ixhl-mzf-batyyxvcvyvq or taking prescription drugs, check to see if they contain acetaminophen. Whenever possible try to avoid taking multiple products containing acetaminophen at the same time; and, limit the totalamount of acetaminophen to 3000- 4000mg per day. Those with liver problems or a history of alcohol abuse should limit intake to 2000mg per day. FOODS Tyramine - containing foods should be avoided when taking the following medications: Nardil (phenelzine), Matulane (procarbazine), Eldepryl (selegiline), Parnate (tranylcypromine), Zyvox (linezolid),INH (isoniazid), Sivextro (tedizolid) and Marplan (isocarboxazide). Foods to be avoided include aged cheese, yogurt, sour cream, pickled abad, liver, dry sausage, geeta or broad castillo pods, sauerkraut, beer, brenden, wine, yeast extract, sardines, aged / pickled fish, chocolate, and caffeine. Combining these foods and drugs may result in severe headaches, rapid heartbeat, sweating and dangerously high blood pressure. Grapefruit juice - interacts with many different types and classes of drugs. Some of these interactions, especially with calcium channel blockers (e.g. Norvasc, Cardizem, Diltiazem, Procardia, verapamil) and anti- cholesterol medications (e.g., Lipitor, Mevacor, Zocor, Crestor), can be extremely jadon gerous. As a rule, it is best to avoid grapefruit juice while taking any medication. Alcohol consumption should be avoided while taking any medication, especially when taking drugs that cause drowsiness, such as pain medications (e.g., Lorcet, Lortab, Percocet, OxyContin, [place]), sleep aids (e.g., Restoril, Lunesta, Ambien, Sonata), anti-anxiety medications (e.g., Valium, Xanax, Ativan, Klonopin), and antihistamines (e.g., Benadryl, Chlortrimeton). Alcohol should also be avoided while taking metronidazole (Flagyl). Read medication labels carefully, as many bvkp-ore-luimizk liquid medications contain alcohol. I MUELLER AUGUSTO INGA , have received patient education materials/instructions and have verbalized understanding. Patient Signature 12/28/2022 15:39:30 Nurse Signature History and physical note * Eulalio Degroot: PERFORM Event Display: History and Physical Authored Date: [id number] MUELLERMORALES LANCASTER LUIS :1945 Age:77 years Sex:Male Visit Date:12/25/2022 Primary Care Physician: NONE, DOC Chief Complaint chest pain onset last night with sob. hx lung ca History of Present Illness Patient??is a 77-year-old French-speaking only male.?? [facility] language services animal daycare provider Neymar #[id number] was utilized for this history and physical.?? He is from [place] and visiting his daughter here and is scheduled to return home to [place] in January 04, 2023.?? He presented to the emergency room today stating last night around 1130 or 12:00 he began to have chest pain pressure type pain associated with shortness of breath and wheezing states he had some diaphoresis.?? Denies any nausea or vomiting.?? He states this is the same type pain that he has with his lung cancer but felt like his asthma was worse.?? He did the pain 08/08.?? Dates he took his Nabumetone pain which did help some.?? Dates he used his nebulizer and inhaler which also helped decrease his symptoms. ?? Diagnostic work-up in the emergency room CBC WBC 10.5 hemoglobin 11.0 hematocrit 37.6 platelet count 435.?? PT 12.6 INR 0.94 PTT 34.8 urinalysis negative for leukocytes nitrites and ketones.?? Chemistry panel sodium 136 potassium 4.2 creatinine 0.81 BUN 9 glucose level 151 magnesium level 1.9 troponin 0.012x2.?? EKG sinus tachycardia ventricular rate 96.?? PA pulmonary large masses within the right lung measuring up to 6 cm the posterior and mid right lung and 5 cm in the medial right lower lobe.?? Findings are concerning for lung carcinoma.?? No significant thoracic lymphadenopathy.?? Bilateral upper lobe predominant emphysema worse than left consistent with COPD.?? Right pleural calcificat ions.?? CT abdomen and pelvis with contrast no acute intra-abdominal abnormality.?? No evidence of metastatic disease in the abdomen and pelvis.?? Rectosigmoid diverticulosis, no evidence of acute diverticulitis. ?? In the emergency room he was given LR 500 and Dilaudid IV. ?? He will be admitted for further evaluation and treatment. Review of Systems Constitutional: No fever, No chills Skin: No rash, no wounds?? Eyes: No recent change in vision, eye pain or other eye complaints. ENMT: No change in hearing, sore throat or sinus congestion Respiratory:??Onset last nigh t??shortness of breath, no cough Cardiovascular:??Onset last night . ??Chest pain, No palpitations, No edema Gastrointestinal: No abdominal pain, No nausea, No vomiting No diarrhea Genitourinary: No dysuria, no urinary frequency, or problems with ability to urinate Neurologic: No headache, No Weakness No change in mental status, speech abnormalities, or focal neurological complaints Psychiatric: No change in mental status Musculoskeletal: ??No back pain, No neck pain, No joint pain, No muscle pain, No decreased range ofmotion ?? Except as noted in the above Review of Systems and in the History of Present Illness, all other systems have been review and are negative or noncontributory. Physical Exam Vitals & Measurements T:??39.0?C ??(Oral)?? TMIN:??37.3?C ??(Oral)?? TMAX:??39.0?C ??(Oral)?? HR:??52??(Peripheral)?? RR:??19?? BP:??129/70?? SpO2:??94%?? HT:??158.000??cm?? WT:??55.340??kg?? Pain Score:??7?? O2 Flow Rate:??2?? O2 Therapy:??Nasal cannula?? Resting SpO2:??97?? General: Thin male, no acute distress Skin: Warm, dry. ??No rashes or lesions. Head: Normocephalic, atraumatic Neck: Trachea midline, supple, no thyromegaly Eye: Normal conjunctiva, anicteric sclera ENT: moist oral mucosa, gross hearing intact, unremarkable external ears Cardiovascular: ??Regular rate, normal rhythm, no murmur, normal peripheral perfusion. ??No carotidbruits appreciated. ??Radial and dorsalis pedis pulses 2+ bilaterally. ??No lower extremity edema bilaterally. Respiratory: Lungs are clear to auscultation bilaterally, normal effort eating in full sentences without any difficulty O2 sat 95%??2 L O2 per nasal trunk cannula Abdomen: ??Nondistended, soft, nontender. ??Normal bowel sounds in all 4 quadrants. Extremities: No gross deformity, no noted trauma Neurologic: Awake, alert, and oriented x3, moves all 4 extremities equally, normal speech,?? Psychiatric: Cooperative, appropriate affect Assessment/Plan Chronic obstructive pulmonary disease exacerbation -Admit to medical telemetry -Incentive spirometry -Duo nebs -Brovana -Pulmicort -Solu-Medrol -Flutter valve -sputum culture -Mucinex 600 mg p.o. twice daily -Doxycycline 100 mg p.o. twice daily -Tylenol as needed fever -COVID-19, influenza and RSV PCR pending -CBC in a.m. ?? Lung cancer Chest pain SPECT secondary to lung cancer and COPD exacerbation -CTA negative for PE -Serial troponin negative -Followed by oncology in [place] -Morphine 2 mg IV every 4 hours as needed pain -Zofran as needed nausea vomiting ?? Diabetes mellitus, type II - QIDACHS BG checks - low dose sliding scale insulin - diabetic diet - check hemoglobin A1c ?? Hypothyroidism -continue home levothyroxine ?? VTE prophylaxis - ambulate - SCDs?? - Lovenox ?? GI prophylaxis?? - famotidine? Medical ethics :Full resuscitation ?? This document was created using kWhOURSation software. ??There may be errors that I have overlooked, please contact me for any questions. ?? Total time for this history and physical exam: 75 minutes Problem List/Past Medical History Ongoing Cancer of lung COPD (chronic obstructive pulmonary disease) Diabetes Diverticulitis H/O Lauren thyroiditis Historical No qualifying data Medications Inpatient albuterol-ipratropium 2.5 mg-0.5 mg/3 mL inhalation solution, 3 mL, NEB, 6x/Day, PRN albuterol-ipratropium 2.5 mg-0.5 mg/3 mL inhalation solution, 3 mL, NEB, 4x/Day albuterol-ipratropium 2.5 mg-0.5 mg/3 mL inhalation solution, 3 mL, NEB, q4hr, PRN Chloraseptic 1.4% spray, 3 spray(s), Oral, q2hr, PRN doxycycline, 100 mg= 1 tab(s), Oral, BID Insulin Humalog sliding scale, Medium Dose Correction, Subcutaneous, QIDACHS Lovenox, 40 mg, Subcutaneous, Daily morphine, 2 mg= 1 mL, IV Push, q4hr, PRN Mucinex, 600 mg= 1 tab(s), Oral, BID ondansetron, 4 mg= 2 mL, IV Push, q6hr, PRN Pepcid, 20 mg= 1 tab(s), Oral, BID Perforomist 20 mcg/2 mL inhalation solution, 20 mcg= 2 mL, NEB, BID Pulmicort Respules, 0.5 mg= 2 mL, NEB, BID SoluMEDROL, 40 mg= 1 mL, IV Push, 3x/Day Tylenol, 650 mg= 2 tab(s), Oral, q4hr, PRN Home No active home medications Allergies No Known Medication Allergies Social History Electronic Cigarette/Vaping Electronic Cigarette Use: Never. Tobacco Current everyday tobacco user Tobacco Use:. Lab Results Last 24 Hours?? Chemistry ? Event Name?? Event Result?? Date/Time?? Sodium Lvl 136 mmol/L??Low 12/25/22 11:11:00 Potassium Lvl 4.2 mmol/L 12/25/22 11:11:00 Chloride 100 mmol/L 12/25/22 11:11:00 CO2 32 mmol/L??High 12/25/22 11:11:00 AGAP 4 mmol/L??Low 12/25/22 11:11:00 BUN 9 mg/dL 12/25/22 11:11:00 Creatinine 0.81 mg/dL 12/25/22 11:11:00 BUN/Creat Ratio 11.11 12/25/22 11:11:00 Glucose Lvl 151 mg/dL??High 12/25/22 11:11:00 Glucose POC 136 mg/dL??High 12/25/22 16:32:00 Calcium Lvl 8.6 mg/dL 12/25/22 11:11:00 Phosphorus 2.2 mg/dL??Low 12/25/22 11:11:00 Globulin 3.1 gm/dL 12/25/22 11:11:00 A/G Ratio 1.26??Low 12/25/22 11:11:00 ALT (SGPT) 15 unit/L 12/25/22 11:11:00 AST (SGOT) 25 unit/L 12/25/22 11:11:00 Bili Total 0.6 mg/dL 12/25/22 11:11:00 Osmolality 274 12/25/22 11:11:00 Magnesium 1.9 mg/dL 12/25/22 11:11:00 Alkaline Phosphatase 105 unit/L 12/25/22 11:11:00 Protein, Total, Serum 7 gm/dL 12/25/22 11:11:00 Albumin 3.9 gm/dL 12/25/22 11:11:00 eGFR CKD-EPI 92 12/25/22 11:11:00 Troponin I <0.012 12/25/22 13:37:00 NT-pro BNP 274 12/25/22 11:11:00 Estimated Creatinine Clearance 61.38 mL/min 12/25/22 11:28:46 ? Hematology ? Event Name?? Event Result?? Date/Time?? WBC 10.5 12/25/22 11:11:00 RBC 4.46??Low 12/25/22 11:11:00 Hemoglobin 11 gm/dL??Low 12/25/22 11:11:00 Hct 36.7 %??Low 12/25/22 11:11:00 MCV 82.3 12/25/22 11:11:00 MCH 24.7 pg??Low 12/25/22 11:11:00 MCHC 30 gm/dL??Low 12/25/22 11:11:00 RDW 16.1 %??High 12/25/22 11:11:00 Platelet 435??High 12/25/22 11:11:00 Neutro Auto 73 % 12/25/22 11:11:00 Lymph Auto 14.7 %??Low 12/25/22 11:11:00 Maury Auto 9.9 %??High 12/25/22 11:11:00 Eos Auto 1.3 % 12/25/22 11:11:00 Basophil Auto 0.5 % 12/25/22 11:11:00 NRBC Auto 0 % 12/25/22 11:11:00 Neutro Absolute 7.7??High 12/25/22 11:11:00 Lymph Absolute 1.5 12/25/22 11:11:00 Maury Absolute 1??High 12/25/22 11:11:00 Eos Absolute 0.1 12/25/22 11:11:00 Baso Absolute 0.1 12/25/22 11:11:00 NRBC Absolute 0 12/25/22 11:11:00 Immature Grans (Abs) 0.06??High 12/25/22 11:11:00 Immature Granulocytes 0.6 %??High 12/25/22 11:11:00 ? Coagulation ? Event Name?? Event Result?? Date/Time?? PT 12.6 12/25/22 11:11:00 INR 0.94 12/25/22 11:11:00 PTT 34.8 12/25/22 11:11:00 ? Point of Care ? Event Name?? Event Result?? Date/Time?? PT 12.6 12/25/22 11:11:00 INR 0.94 12/25/22 11:11:00 Blood Glucose, Capillary POC 136 mg/dL??High 12/25/22 16:33:00 ? Urinalysis ? Event Name?? Event Result?? Date/Time?? UA Color Yellow 12/25/22 14:12:00 UA Clarity Clear 12/25/22 14:12:00 UA Spec Grav 1.015 12/25/22 14:12:00 UA Bili Negative 12/25/22 14:12:00 UA pH 7 12/25/22 14:12:00 UA Urobilinogen 0.2 mg/dL 12/25/22 14:12:00 UA Blood Negative 12/25/22 14:12:00 UA Glucose Negative 12/25/22 14:12:00 UA Ketones Negative 12/25/22 14:12:00 UA Protein Negative 12/25/22 14:12:00 UA Nitrite Negative 12/25/22 14:12:00 UA Leuk Est Negative 12/25/22 14:12:00 UA WBC 3 12/25/22 14:12:00 UA RBC 1 12/25/22 14:12:00 UA Mucous 1+ 12/25/22 14:12:00 UA Ca Ox Crystal TRACE 12/25/22 14:12:00 UA Amorph 1+ 12/25/22 14:12:00 UA Epithelial 1 12/25/22 14:12:00 ? Diagnostic Results X-Ray: ?? XR Chest 2 Views ?? 12/25/22 11:17:00 FINAL REPORT ?? HISTORY: chest pain, SOB ?? FINDINGS: Pericardio-cardiac silhouette within normal limits. Large pleural-based soft tissue mass right lower lobe adjacent the lung hilus. Additional masses located in the medial medial right lower lobe territory. Calcified granuloma in the left lower lobe. Linearopacities with apical thickening right upper lobe. There is blunting of the costophrenic angles. ?? IMPRESSION: No previous exams available. Right lower lobe masses which may represent metastatic disease or lungcarcinoma. Focal pleural and parenchymal scarring right upper lobe. Remote granulomatous disease left lower lobe. ?? Signed By: PAT BUSH MD Computed Tomography: ?? CT Abdomen/Pelvis w/ Contrast ?? 12/25/22 13:34:00 FINAL REPORT ?? HISTORY: lower chest pain, eval metastatic disease, hx of lung CA ?? FINDINGS: TECHNIQUE: Axial computed tomography images of the abdomen and pelvis with intravenous contrast. ?? CONTRAST: With; 75 ccs isovue 370 ?? COMPARISON: None. ? LIVER: Unremarkable. ?? GALLBLADDER AND BILE DUCTS: Unremarkable. No calcified stone. No ductal dilation. ?? PANCREAS: Mild age appropriate atrophy. ?? SPLEEN: Unremarkable. ?? ADRENAL GLANDS: Unremarkable. ?? KIDNEYS, URETERS, AND BLADDER: Unremarkable. No hydronephrosis or nephrolithiasis. No ureteral or bladder calculi. Partial distention of the urinary bladder with normal bladder wall thickness. ?? REPRODUCTIVE: Mild enlargement of prostate gland with mass effect on the base of the urinary bladder. ?? STOMACH AND BOWEL: Stomach, small and large bowel are normal in caliber. Moderate stool burden noted. Prominent rectosigmoid diverticulosis Large 1.2 cm calcification in the right lower quadrant appears to be a mesenteric calculus. ?? APPENDIX: No CT evidence for appendicitis. ?? PERITONEUM: No free fluid. No free air. ?? LYMPH NODES: No lymphadenopathy. ?? VASCULATURE: Mild scattered atherosclerosis of the abdominal aorta and branch vessels. ?? BONES: No fracture or suspicious osseous abnormality. Mild spondylosis of the thoracolumbar spine. ?? ABDOMINAL WALL AND SOFT TISSUES: Unremarkable. ? IMPRESSION: No acute intra-abdominal abnormality. No evidence of metastatic disease in the abdomen and pelvis. Rectosigmoid diverticulosis, no evidence of acute diverticulitis. ?? Signed By: Cindy Barber MD ?? CT Angio Pulmonary ?? 12/25/22 13:21:00 FINAL REPORT ?? HISTORY: chest pain, hx of lung CA ?? FINDINGS: The examination consists of 2 mm axial images of the chest from the thoracic inlet to the adrenals with intravenous contrast. ?? Comparison: Same day chest x-ray. ?? There is good opacification of the pulmonary arteries with no filling defects in the pulmonary trunk, right and left main pulmonary arteries, segmental nor subsegmental branches of the pulmonary arteries. Normal caliber of the thoracic aorta with moderately calcified and soft tissue plaque atherosclerosis. There is no aortic aneurysm or dissection. Prominent emphysematous changes of upper lobes, right worse than left. Posterior right mid lung soft tissue mass involving the inferior aspect of the right upper lobe andsuperior aspect of the right lower lobe. The mass measures approximately 5.9 x 3.9 x 5.0 cm in craniocaudal, anterior-posterior and transverse dimensions respectively. Medial right lower lobe mass measuring approximately 5.0 x 4.3 x 4.0 cm in the craniocaudal, anterior-posterior, and transverse dimensions respectively. 7 x 7 mm right anterolateral noncalcified pulmonary nodule (series 5, image 43). Left lower lobe calcified granuloma (series 5, image 69). No pneumothorax or pleural effusion. Pleural calcification noted in the anterior and posterior aspect of the upper right hemithorax The airways are patent including the trachea and major bronchi. There are no enlarged axillary lymph nodes. There are no enlarged anterior mediastinal, subcarinal or hilar lymph nodes. Normal heart size. Mild three-vessel coronary artery atherosclerosis. There is no pericardial effusion. No traumatic or suspicious osseous abnormality. ?? IMPRESSION: Large masses within the right lung measuring up to 6 cm in the posterior mid right lung and 5 cm inthe medial right lower lobe. Findings are concerning for lung carcinoma. Recommend PET scan or tissue biopsy if not already obtained to evaluate for recurrence. No significant thoracic lymphadenopathy. Bilateral upper lobe predominant emphysema, right worse than left consistent with COPD. Right pleural calcifications. ?? Signed By: Cindy Barber MD ? [Electronically Signed on: 12/25/2022 17:20 EST] Eulalio Degroot LEGAL BILLER-C [Verified on: 12/25/2022 17:20 EST] Eulalio Degroot LEGAL BILLER-C Progress note * MARIELA RODRIGUEZ: PERFORM, SIGN, VERIFY Event Display: Progress Note-Physician Authored Date: [id number] Patient: MORALES COFFEY Age: 77 years Sex: Male : 1945 Associated Diagnoses: None Author: MARIELA RODRIGUEZ Basic Information Patient is seen and evaluated, he is feeling well, continues to have cough with yellow mucus. He does feel better overall. He does have some scattered wheezing but denies any worsening shortness of breath. He remains on O2, which he does not have at home now. Fluid balance: +723 Assessment 1. COPD/moderate persistent asthma exacerbation 2. Acute respiratory failure with hypoxia 3. Current smoker 4. Lung cancer- unknown type and follows with oncology in [place] (no surgery, chemo, radiation) 5. Fever- resolved 6. Thrombocytosis- resolved 7. DM 8. Anemia- Hgb 9.6 Plan 1. Supplemental oxygen to maintain saturations greater then 90%- wean as tolerated 2. Perforomist and budesonide; duo nebs 3. Mucinex, flutter, collect sputum 4. Hexw-Bfyjxk-nmzi today 5. Cont doxycycline 6. Chest x-ray as condition indicates 7. Trend inflammatory markers- stable 8. GI stress and DVT prophylaxis with Lovenox and Pepcid 9. Nicotine patch- smoking cessation 10. Will need walk test-order today Review of Systems 12 point ROS completed with pertinent positives above; all other systems negative Health Status Allergies: Allergic Reactions (Selected) No Known Medication Allergies, Allergies (1) Active Severity Reaction No Known Medication Allergies None Documented Current medications: (Selected) Inpatient Medications Ordered Chloraseptic 1.4% spray: 3 spray(s), Oral, q2hr, PRN: Sore Throat Insulin Humalog sliding scale: High Dose Correction, Subcutaneous, QIDACHS Lovenox: 40 mg = 0.4 mL, Subcutaneous, Daily Mucinex: 600 mg = 1 tab(s), Oral, BID Pepcid: 20 mg = 1 tab(s), Oral, BID Perforomist 20 mcg/2 mL inhalation solution: 20 mcg = 2 mL, NEB, BID Pulmicort Respules: 0.5 mg = 2 mL, NEB, BID SoluMEDROL: 40 mg = 1 mL, IV Push, 3x/Day Tylenol: 650 mg = 2 tab(s), Oral, q4hr, PRN: Pain - Mild Tylenol: 650 mg = 2 tab(s), Oral, q6hr, PRN: Pain/Fever albuterol-ipratropium 2.5 mg-0.5 mg/3 mL inhalation solution: 3 mL, NEB, 4x/Day albuterol-ipratropium 2.5 mg-0.5 mg/3 mL inhalation solution: 3 mL, NEB, 6x/Day, PRN: Shortness of Breath or wheezing albuterol-ipratropium 2.5 mg-0.5 mg/3 mL inhalation solution: 3 mL, NEB, q4hr, PRN: Shortness of Breath or wheezing doxycycline: 100 mg = 1 tab(s), Oral, BID levothyroxine: 112 mcg = 1 tab(s), Oral, Daily morphine: 2 mg = 1 mL, IV Push, q4hr, PRN: Pain nicotine 14 mg/24 hr patch, extended release: 14 mg = 1 patch(es), Transdermal, Daily ondansetron: 4 mg = 2 mL, IV Push, q6hr, PRN: Nausea/Vomiting Documented Medications Documented Daily Leslie oral tablet: 1 tab(s), Oral, Daily Trelegy Ellipta 200 mcg-62.5 mcg-25 mcg/inh inhalation powder: 1 puff(s), INH, Daily albuterol 90 mcg/inh inhalation aerosol: 2 puff(s), INH, q6hr, PRN: Shortness of Breath or wheezing, 0 Refill(s) albuterol-ipratropium 2.5 mg-0.5 mg/3 mL inhalation solution: 3 mL, NEB, QID, PRN: Shortness of Breath or wheezing, 0 Refill(s) levothyroxine 112 mcg (0.112 mg) oral tablet: 112 mcg = 1 tab(s), Oral, Daily metFORMIN 500 mg oral tablet: 500 mg = 1 tab(s), Oral, Daily mirtazapine 7.5 mg oral tablet: 7.5 mg = 1 tab(s), Oral, Once a day (at bedtime) montelukast 10 mg oral tablet: 10 mg = 1 tab(s), Oral, qPM nabumetone 500 mg oral tablet: 500 mg = 1 tab(s), Oral, BID, PRN: knee pain omeprazole 20 mg oral delayed release capsule: 20 mg = 1 cap(s), Oral, Daily predniSONE 10 mg oral tablet: 15 mg = 1.5 tab(s), Oral, Daily Problem list: All Problems COPD (chronic obstructive pulmonary disease) / [id number] / Confirmed Diabetes / [id number] / Confirmed Diverticulitis / [id number] / Confirmed H/O Lauren thyroiditis / [id number] / Confirmed Cancer of lung / [id number] / Confirmed, Active Problems (5) Cancer of lung COPD (chronic obstructive pulmonary disease) Diabetes Diverticulitis H/O Lauren thyroiditis Physical Examination VS/Measurements Vital Signs 12/28/2022 7:16 EST Temperature Oral 36.5 DegC Peripheral Pulse Rate 83 bpm Respiratory Rate 18 br/min Systolic Blood Pressure 120 mmHg Diastolic Blood Pressure 60 mmHg SpO2 98 % , Vital Signs (last 24 hrs) Last Charted Temp Oral 36.5 DegC (DEC 28 07:16) Heart Rate Peripheral 67 bpm (DEC 28:) Resp Rate 20 br/min (DEC 28) SBP 120 mmHg (DEC 28:) DBP 60 mmHg (DEC 28:) General: Alert and oriented, No acute distress. Eye: Extraocular movements are intact, Normal conjunctiva. HENT: Normocephalic, Oral mucosa is moist. Neck: Supple. Respiratory: Respirations are non-labored, Breath sounds are equal, Symmetrical chest wall expansion, bilateral expiratory wheezing. Cardiovascular: Normal rate, Regular rhythm. Gastrointestinal: Soft, Normal bowel sounds. Integumentary: Warm, Dry. Neurologic: Alert, Oriented, No focal defects. Psychiatric: Cooperative, Appropriate mood & affect. Review / Management Results review: Labs (Last four charted values) WBC H 13.0 (DEC 28) H 15.6 (DEC 27) H 14.5 (DEC 26) 10.5 (DEC 25) Hgb L 10.2 (DEC 28) L 9.6 (DEC 27) L 10.7 (DEC 26) L 11.0 (DEC 25) Hct L 34.1 (DEC 28) L 31.5 (DEC 27) L 35.5 (DEC 26) L 36.7 (DEC 25) Plt H 423 (DEC 28) 390 (DEC 27) H 450 (DEC 26) H 435 (DEC 25) Na L 136 (DEC 28) L 132 (DEC 27) L 134 (DEC 26) L 136 (DEC 25) K 4.6 (DEC 28) 4.4 (DEC 27) 4.4 (DEC 26) 4.2 (DEC 25) CO2 H 32 (DEC 28) H 31 (DEC 27) 29 (DEC 26) H 32 (DEC 25) Cl 98 (DEC 28) L 97 (DEC 27) L 97 (DEC 26) 100 (DEC 25) Cr 0.76 (DEC 28) 0.77 (DEC 27) 0.70 (DEC 26) 0.81 (DEC 25) BUN 20 (DEC 28) H 21 (DEC 27) 15 (DEC 26) 9 (DEC 25) Glucose Random H 181 (DEC 28) H 290 (DEC 27) H 183 (DEC 26) H 151 (DEC 25) Mg 1.9 (DEC 25) Phos L 2.2 (DEC 25) PT 12.6 (DEC 25) INR 0.94 (DEC 25) PTT 34.8 (DEC 25) . [Electronically Signed on: 12/28/2022 10:44 EST] MARIELA RODRIGUEZ LEGAL BILLER MELITON MERAZ MD, MD [Verified on: 12/28/2022 10:44 EST] MARIELA RODRIGUEZ LEGAL BILLER * RU LAMAR DNP: PERFORM, SIGN, VERIFY Event Display: Progress Note-Physician Authored Date: [id number] Patient: MORALES COFFEY Age: 77 years Sex: Male : 1945 Associated Diagnoses: None Author: RU LAMAR DNP Reason for Hospitalization: 77 year-old male who presented to [facility] on 12/25/2022 for evaluation of worsening shortness of breath and tachycardia. He is from out of town and has a history of lung cancer and is followed by Hem-Onc & PCCM ??? denies having undergone manager regional or surgery. Plans to go home 01/04/2023 OA he was febrile 39C (102.2F), tachypneic and tachycardia. COVID-19, Influenza A/B & RSV were negative. BNP & Troponin I were normal. CXR showed RLL masses, RUL focal pleural and parenchymalscarring & LLL remote granulomatous disease. CTPA showed large masses within the right lung measuring up to 6 cm in the posterior mid right lung and 5 cm in the medial right lower lobe. No significant thoracic lymphadenopathy. Bilateral upper lobe predominant emphysema (R>L) & right pleural calcifications. CTAP had benign findings. PMH: Atherosclerosis, BPH, COPD, DM-II, Diverticulosis, Lauren thyroiditis, Lung Cancer/Masses, Nicotine Dependence/Smoker Daily Events: 12/26: 1N. ECG: Bigeminy O???: 2L. No chest pain or palpitations. Has a harsh cough. States that they are from out of town and would like to go home SARAH. States that he is feeling better than he was when admitted. 12/27: 1N. ECG: Bigeminy O???: 1L. No hemoptysis. Cough with clear phlegm. CXR showed no significantchange compared 12/25/2022.. Focal scarring in the right upper lobe. Multiple right lower lobe masses. Tolerating medications without notable side effects. Inpatient Medications Medications (18) Active Scheduled: (11) albuterol-ipratropium 2.5 mg-0.5 mg/3 mL Inh Jelena [IMH] 3 mL, NEB, 4x/Day budesonide 0.5 mg/2 mL Inh Susp [IMH] 0.5 mg 2 mL, NEB, BID doxycycline hyclate 100 mg Tab [IMH] 100 mg 1 tab(s), Oral, BID enoxaparin 40 mg/0.4 mL SC Inj [IMH] 40 mg 0.4 mL, Subcutaneous, Daily famotidine 20 mg Tab [IMH] 20 mg 1 tab(s), Oral, BID formoterol fumarate Inh Jelena 20 mcg/2 mL [IMH] 20 mcg 2 mL, NEB, BID guaiFENesin 600 mg ER Tab [IMH] 600 mg 1 tab(s), Oral, BID insulin lispro (Humalog) per Dose Inj [IMH] High Dose Correction, Subcutaneous, QIDACHS levothyroxine 112 mcg (0.112 mg) Tab [IMH] 112 mcg 1 tab(s), Oral, Daily methylPREDNISolone 40 mg Inj [IMH] 40 mg 1 mL, IV Push, 3x/Day nicotine 14 mg/24 hr Transderm Patch [IMH] 14 mg 1 patch(es), Transdermal, Daily Continuous: (0) PRN: (7) acetaminophen 325 mg Tab [IMH] 650 mg 2 tab(s), Oral, q4hr acetaminophen 325 mg Tab [IMH] 650 mg 2 tab(s), Oral, q6hr albuterol-ipratropium 2.5 mg-0.5 mg/3 mL Inh Jelena [IMH] 3 mL, NEB, q4hr albuterol-ipratropium 2.5 mg-0.5 mg/3 mL Inh Jelena [IMH] 3 mL, NEB, 6x/Day morphine 2 mg/mL Inj [IMH] 2 mg 1 mL, IV Push, q4hr ondansetron 4 mg/2 mL Inj [IMH] 4 mg 2 mL, IV Push, q6hr phenol Top 1.4% Oral Tombstone [IMH] 3 spray(s), Oral, q2hr Allergies: NKDA Review of Systems: A comprehensive 12 system review was conducted and is negative with the exception of what is noted above.? Physical Exam: Temperature 36.8 (03:48) Systolic Blood Pressure 115 (03:48) Diastolic Blood Pressure 64 (03:48) Pulse 89 (03:48) SpO2 96 (03:48) Respiratory Rate 17 (03:48) General: 77 year old male in NAD. HEENT: AT/NC and ??? symmetrical. PERRL. Hearing grossly intact. Neck: Supple. Cardiovascular: Bigeminy Respiratory: Symmetrical. Non-labored. Sparse rhonchi and occasional harsh cough. Abdomen/Pelvis: Soft, NT, + bowel sounds in all quadrants. Extremities: HERNANDEZ. ?? gross deformity. ?? edema.??? Neuro: Alert.??? Oriented. CN II-XII grossly intact, but not individually tested. No focal deficits. Psychiatric: Mood and affect are appropriate. Skin: Warm. Dry. Well perfused. ?? overt new rashes or lesions noted. Laboratory Studies Labs (Last four charted values) WBC H 15.6 (DEC 27) H 14.5 (DEC 26) 10.5 (DEC 25) Hgb L 9.6 (DEC 27) L 10.7 (DEC 26) L 11.0 (DEC 25) Hct L 31.5 (DEC 27) L 35.5 (DEC 26) L 36.7 (DEC 25) Plt 390 (DEC 27) H 450 (DEC 26) H 435 (DEC 25) Na L 132 (DEC 27) L 134 (DEC 26) L 136 (DEC 25) K 4.4 (DEC 27) 4.4 (DEC 26) 4.2 (DEC 25) CO2 H 31 (DEC 27) 29 (DEC 26) H 32 (DEC 25) Cl L 97 (DEC 27) L 97 (DEC 26) 100 (DEC 25) Cr 0.77 (DEC 27) 0.70 (DEC 26) 0.81 (DEC 25) BUN H 21 (DEC 27) 15 (DEC 26) 9 (DEC 25) Glucose Random H 290 (DEC 27) H 183 (DEC 26) H 151 (DEC 25) Mg 1.9 (DEC 25) Phos L 2.2 (DEC 25) PT 12.6 (DEC 25) INR 0.94 (DEC 25) PTT 34.8 (DEC 25) Microbiological Studies Sputum Gm Stain 12/26/2022: Rare GPR, Moderate GPC. Sputum Cx 12/26/2022: Normal Kamaljit. Radiographic Studies X-Ray: XR Chest 1 View Portable 12/27/22 11:20:00 No significant change compared 12/25/2022.. Focal scarring in the right upper lobe. Multiple right lower lobe masses. Computed Tomography: ??Ultrasound: ??MRI: ??Echo: ??Nuclear Medicine: ??Mammography: ASSESSMENT AND PLAN Acute Medical Issues Dyspnea (Improving) Chest Tightness (Resolved) COPD/Emphysema (R>L) Soft Tissue Mass, RUL & Superior Aspect of RLL (5.9 x 3.9 x 5.0 cm) Soft Tissue Mass, RLL (5.0 x 4.3 x 4.0 cm) Non-calcified Pulmonary Nodule, R Anterolateral (7x 7 mm) Calcified Granuloma, LLL Pleural Calcifications, Right -COVID-19, Influenza A/B & RSV were negative. Sputum Cx is NTD -CXR 12/25 showed RLL masses which may represent metastatic disease or lung carcinoma. RUL focal pleural and parenchymal scarring. LLL remote granulomatous disease. -CTPA 12/25 showed large masses within the right lung measuring up to 6 cm in the posterior mid right lung and 5 cm in the medial right lower lobe. Findings are concerning for lung carcinoma. No significant thoracic lymphadenopathy. Bilateral upper lobe predominant emphysema, right worse than left consistent with COPD. Right pleural calcifications. Radiologist recommended PET scan or tissue biopsyif not already obtained to evaluate for recurrence. CT A/P 12/25 was also obtained due what appear to be metastatic findings and it showed no acute intra-abdominal abnormality. No evidence of metastatic disease in the abdomen and pelvis. -CXR 12/27 showed no significant change compared 12/25/2022. -Continue supportive care and close monitoring of SpO? provide supplemental O??? PRN. Encourage use of IS and FV when appropriate. -Continue medications -Consultants: Hem-Onc & PCCM ? appreciate their assistance in caring for the patient. Fever (Defervesced) Unclear etiology Monitor and treat as needed. Sinus Arrhythmia Bigeminy (Resolved) Suspect is chronic as rhythm is associated with significant lung disease (seen in ~60% of cases) No pain or palpitations noted. 12 L ECG 12/26 showed Sinus tachycardia, APC's SV complex w/ short R-R interval. Non-specific IVCD Abnormal R-wave progression, early transition (QRS area >0 in V2). Borderline inferior ST elevation. BNP and Troponin I were normal (274 & <0.012 respectively). Consider TTE Abnormal APR/PIM's ??? CRP ??? PCT Continue to provide supportive care; trend/correlate levels c? labs, imaging studies & clinical condition. Monitor for symptoms c/w SIRS/Sepsis/sHLH. ?? antimicrobials PRN. Leukocytosis UA negative for UTI Trend/correlate c? CX's, XR's & clinical condition; ? antimicrobials as needed. Anemia, normocytic Hemoglobin level (Hgb) is stable. Continue to follow serial Hgb levels & transfuse if Hgb is < 7g/dL or if the patient is symptomatic. Hypophosphatemia Mild Trend and treat as needed Pseudo-hyponatremia 2?? to hyperglycemia No treatment needed at this time ??? Trend and treat as needed. Chronic Medical Issues Atherosclerosis CT A/P 12/25 showed mild scattered atherosclerosis of the abdominal aorta and branch vessels. Benign Prostatic Hyperplasia CT A/P 12/25 showed mild enlargement of prostate gland with mass effect on the base of the urinary bladder. No hydronephrosis or nephrolithiasis. No ureteral or bladder calculi. Monitor for symptoms consistent with obstructive uropathy, urinary retention, irritation or increased urine residual volume and treat as needed. Continue DM-II with Hyperglycemia A1c ??? AC/HS FSBG. Use SSI & GALAN's & ? PRN to maintain BG level between 100 - 180. Re-enforce diabetic teaching and the need for compliance. Diverticulosis Asymptomatic CT A/P 12/25 showed rectosigmoid diverticulosis, no evidence of acute diverticulitis. Monitor and treat as needed. Mesenteric Calculus (Incidental Finding) Noted on CT A/P 12/25 ??? 1.2 cm calcification in the RLQ Prophylaxis VTE: Lovenox H???/PPI: PPI PRN Diet Order Diet Order -- 12/25/22 14:41:00 EST Diabetic Cardiac, Diabetic, 1800 kcal, Fluid: 1500 ml Diet Order -- 12/25/22 14:41:00 EST Diabetic, Room Service Eligible: Yes, 3CHO Choices/Meal ([id number] lc) Disclaimer: Please note, some of this note was written with voice dictation software. Please contact me with any questions. Billing: Level 3 ([id number]) 35+ minutes were spent in documentation review, examination of the patient, and conferring with collaborating and subspecialty providers.??? Procedures EKG reviewed 1-3 leads (18171) ??? [Electronically Signed on: 12/28/2022 04:20 EST] RU LAMAR DNP, DNP [Verified on: 12/28/2022 04:20 EST] RU LAMAR DNP, DNP * SAMIR RUTH MD: MODIFY SAMIR RUTH MD: MODIFY, SIGN SAMIR RUTH MD: SIGN, SIGN, VERIFY, PERFORM Bellina, Guerita M LEGAL BILLER: PERFORM Event Display: Progress Note-Physician Authored Date: [id number] Patient: MORALES COFFEY Age: 77 years Sex: Male : 1945 Associated Diagnoses: None Author: Guerita Carrasquillo Basic Information Patient is seen and evaluated, chart reviewed. Family is at bedside. He is sitting up in bed on oxygen at 1 and half liters, which has been decreased. Saturations are 98%. He is decreased to a half aliter and maintains at 97%. He is feeling better today. Denies any shortness of breath. States little cough. No fever. Sputum culture is negative thus far. Inflammatory markers are elevated. Hemoglobin has dropped. Fluid balance:+58 SPUTUM CULTURE/GS 12/27/22 NORMAL KAMALJIT Assessment 1. COPD/moderate persistent asthma exacerbation 2. Acute respiratory failure with hypoxia 3. Current smoker 4. Lung cancer- unknown type and follows with oncology in [place] (no surgery, chemo, radiation) 5. Fever- resolved 6. Thrombocytosis- resolved 7. DM 8. Anemia- Hgb 9.6 Plan 1. Supplemental oxygen to maintain saturations greater then 90%- wean as tolerated 2. Perforomist and budesonide; duo nebs 3. Mucinex, flutter, collect sputum 4. Solu-Medrol 3 times daily and wean when able- monitor blood sugars 5. Antibiotic as indicated- on doxycycline 6. Chest x-ray as condition indicates 7. Trend inflammatory markers- in AM 8. GI stress and DVT prophylaxis with Lovenox and Pepcid 9. Nicotine patch- smoking cessation 10. Glycemic control per primary team 11. May need walk test prior to d/c to assess need for home oxygen This document was created using PeerJ dictation software. ??There may be errors that I have overlooked, please contact me for any questions. Physician findings: I evaluated this patient on the day of this note. This document was not available at that time. The above review of data, examination, assessment and plan were formulated under mydirect supervision. During this visit I reviewed this patient's medication list, labs, most recent radiographic images and other providers notes. Further recommendations will be made based upon the response to treatment and as other data becomes available. Samir Ruth MD, [facility], [facility] Review of Systems 12 point ROS completed with pertinent positives above; all other systems negative Health Status Allergies: Allergic Reactions (Selected) No Known Medication Allergies, Allergies (1) Active Severity Reaction No Known Medication Allergies None Documented Current medications: Medications (18) Active Scheduled: (11) albuterol-ipratropium 2.5 mg-0.5 mg/3 mL Inh Jelena [IMH] 3 mL, NEB, 4x/Day budesonide 0.5 mg/2 mL Inh Susp [IMH] 0.5 mg 2 mL, NEB, BID doxycycline hyclate 100 mg Tab [IMH] 100 mg 1 tab(s), Oral, BID enoxaparin 40 mg/0.4 mL SC Inj [IMH] 40 mg 0.4 mL, Subcutaneous, Daily famotidine 20 mg Tab [IMH] 20 mg 1 tab(s), Oral, BID formoterol fumarate Inh Jelena 20 mcg/2 mL [IMH] 20 mcg 2 mL, NEB, BID guaiFENesin 600 mg ER Tab [IMH] 600 mg 1 tab(s), Oral, BID insulin lispro (Humalog) per Dose Inj [IMH] High Dose Correction, Subcutaneous, QIDACHS levothyroxine 112 mcg (0.112 mg) Tab [IMH] 112 mcg 1 tab(s), Oral, Daily methylPREDNISolone 40 mg Inj [IMH] 40 mg 1 mL, IV Push, 3x/Day nicotine 14 mg/24 hr Transderm Patch [IMH] 14 mg 1 patch(es), Transdermal, Daily Continuous: (0) PRN: (7) acetaminophen 325 mg Tab [IMH] 650 mg 2 tab(s), Oral, q4hr acetaminophen 325 mg Tab [IMH] 650 mg 2 tab(s), Oral, q6hr albuterol-ipratropium 2.5 mg-0.5 mg/3 mL Inh Jelena [IMH] 3 mL, NEB, q4hr albuterol-ipratropium 2.5 mg-0.5 mg/3 mL Inh Jelena [IMH] 3 mL, NEB, 6x/Day morphine 2 mg/mL Inj [IMH] 2 mg 1 mL, IV Push, q4hr ondansetron 4 mg/2 mL Inj [IMH] 4 mg 2 mL, IV Push, q6hr phenol Top 1.4% Oral Tombstone [IMH] 3 spray(s), Oral, q2hr Problem list: All Problems COPD (chronic obstructive pulmonary disease) / [id number] / Confirmed Diabetes / [id number] / Confirmed Diverticulitis / [id number] / Confirmed 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 Eye: Extraocular movements are intact, Normal conjunctiva. HENT: Normocephalic, Oral mucosa is moist. Neck: Supple. Respiratory: Respirations are non-labored, Breath sounds are equal, Symmetrical chest wall expansion, bilateral expiratory wheezing. Cardiovascular: Normal rate, Regular rhythm. Gastrointestinal: Soft, Normal bowel sounds. Integumentary: Warm, Dry. Neurologic: Alert, Oriented, No focal defects. Psychiatric: Cooperative, Appropriate mood & affect. Review / Management Results review: Labs (Last four charted values) WBC H 14.5 (DEC 26) 10.5 (DEC 25) Hgb L 10.7 (DEC 26) L 11.0 (DEC 25) Hct L 35.5 (DEC 26) L 36.7 (DEC 25) Plt H 450 (DEC 26) H 435 (DEC 25) Na L 134 (DEC 26) L 136 (DEC 25) K 4.4 (DEC 26) 4.2 (DEC 25) CO2 29 (DEC 26) H 32 (DEC 25) Cl L 97 (DEC 26) 100 (DEC 25) Cr 0.70 (DEC 26) 0.81 (DEC 25) BUN 15 (DEC 26) 9 (DEC 25) Glucose Random H 183 (DEC 26) H 151 (DEC 25) Mg 1.9 (DEC 25) Phos L 2.2 (DEC 25) PT 12.6 (DEC 25) INR 0.94 (DEC 25) PTT 34.8 (DEC 25) . [Electronically Signed on: 12/27/2022 10:26 EST] Guerita Carrasquillo LEGAL BILLER-C [Electronically Signed on: 12/27/2022 12:38 EST] SAMIR RUTH MD [Verified on: 12/27/2022 10:26 EST] Guerita Carrasquillo LEGAL BILLER-C Discharge summary * RU LAMAR DNP: PERFORM Event Display: Discharge Summary Authored Date: [id number] Demographics: Name: MORALES COFFEY Date of : 1945 Age: 77 Years Race: Other Marital: Address: [address] [place] [address] Phone: Hospital Data: Date of Admission: 12/25/2022 Provider Data: Attending Team: Hospital Medicine Service Discharge Data: Date of Discharge: 12/28/2022 LOS: 003 Discharge Disposition: Home with follow-up in [place] Condition at Discharge: Stable/Improved CODE: FULL Diet: Diabetic Cardiac, Diabetic, 1800 kcal, Fluid: 1500 ml Discharge Diagnoses: Acute Medical Issues Dyspnea Chest Tightness COPD/Emphysema (R>L) Soft Tissue Mass, RUL & Superior Aspect of RLL (5.9 x 3.9 x 5.0 cm) Soft Tissue Mass, RLL (5.0 x 4.3 x 4.0 cm) Non-calcified Pulmonary Nodule, R Anterolateral (7x 7 mm) Calcified Granuloma, LLL Pleural Calcifications, Right Fever Sinus Arrhythmia Bigeminy Abnormal APR/PIM's (? CRP & ? PCT) Leukocytosis Anemia, normocytic Hypophosphatemia Pseudo-hyponatremia 2?? to hyperglycemia Chronic Medical Issues Atherosclerosis Benign Prostatic Hyperplasia DM-II with Hyperglycemia Diverticulosis Mesenteric Calculus (Incidental Finding) Nicotine Dependence Discharge Medications: Home Medications (12) Active albuterol 90 mcg/inh inhalation aerosol 2 puff(s), PRN, INH, q6hr Daily Leslie oral tablet 1 tab(s), Oral, Daily doxycycline hyclate 100 mg oral tablet 100 mg = 1 tab(s), Oral, BID levothyroxine 112 mcg (0.112 mg) oral tablet 112 mcg = 1 tab(s), Oral, Daily metformin 500 mg oral tablet 500 mg = 1 tab(s), Oral, Daily mirtazapine 7.5 mg oral tablet 7.5 mg = 1 tab(s), Oral, Once a day (at bedtime) montelukast 10 mg oral tablet 10 mg = 1 tab(s), Oral, qPM Mucinex 600 mg = 1 tab(s), Oral, BID nicotine 21 mg-14 mg-7 mg transdermal film, extended release See Instructions omeprazole 20 mg oral delayed release capsule 20 mg = 1 cap(s), Oral, Daily prednisone 10 mg oral tablet 15 mg = 1.5 tab(s), Oral, Daily Trelegy Ellipta 200 mcg-62.5 mcg-25 mcg/inh inhalation powder 1 puff(s), INH, Daily Allergies: No Known Medication Allergies PMH: Atherosclerosis, BPH, COPD, DM-II, Diverticulosis, Lauren thyroiditis, Lung Cancer/Masses, Nicotine Dependence/Smoker Reason for Hospitalization and Hospital Course: 77 year-old male who presented to [facility] on 12/25/2022 for evaluation of worsening shortness of breath and tachycardia. [place] from out of town and has a history of lung cancer and is followed by Hem-Onc & PCCM ??? denies having undergone manager regional or surgery. Plans to go home 01/04/2023 OA he was febrile 39C (102.2F), tachypneic and tachycardia. COVID-19, Influenza A/B & RSV were negative. BNP & Troponin I were normal. CXR showed RLL masses, RUL focal pleural and parenchymalscarring & LLL remote granulomatous disease. CTPA showed large masses within the right lung measuring up to 6 cm in the posterior mid right lung and 5 cm in the medial right lower lobe. No significant thoracic lymphadenopathy. Bilateral upper lobe predominant emphysema (R>L) & right pleural calcifications. CTAP had benign findings. Acutely, he had the following disorders that were either monitored closely or treated during his hospitalization: Dyspnea (Improving) Chest Tightness (Resolved) COPD/Emphysema (R>L) Soft Tissue Mass, RUL & Superior Aspect of RLL (5.9 x 3.9 x 5.0 cm) Soft Tissue Mass, RLL (5.0 x 4.3 x 4.0 cm) Non-calcified Pulmonary Nodule, R Anterolateral (7x 7 mm) Calcified Granuloma, LLL Pleural Calcifications, Right -COVID-19, Influenza A/B & RSV were negative. Sputum Cx is NTD -CXR 12/25 showed RLL masses which may represent metastatic disease or lung carcinoma. RUL focal pleural and parenchymal scarring. LLL remote granulomatous disease. -CTPA 12/25 showed large masses within the right lung measuring up to 6 cm in the posterior mid right lung and 5 cm in the medial right lower lobe. Findings are concerning for lung carcinoma. No significant thoracic lymphadenopathy. Bilateral upper lobe predominant emphysema, right worse than left consistent with COPD. Right pleural calcifications. Radiologist recommended PET scan or tissue biopsyif not already obtained to evaluate for recurrence. CT A/P 12/25 was also obtained due what appear to be metastatic findings and it showed no acute intra-abdominal abnormality. No evidence of metastatic disease in the abdomen and pelvis. -CXR 12/27 showed no significant change compared 12/25/2022. Provided supportive care and close monitoring of SpO? provide supplemental O??? PRN. Encouraged use of IS and FV when appropriate. Treated with the following medications Albuterol-ipratropium 2.5 mg-0.5 mg/3 mL Inh Jelena [IMH] 3 mL, NEB, 4x/Day Budesonide 0.5 mg/2 mL Inh Susp [IMH] 0.5 mg 2 mL, NEB, BID Doxycycline hyclate 100 mg Tab [IMH] 100 mg 1 tab(s), Oral, BID Formoterol fumarate Inh Jelena 20 mcg/2 mL [IMH] 20 mcg 2 mL, NEB, BID Guaifenesin 600 mg ER Tab [IMH] 600 mg 1 tab(s), Oral, BID Methylprednisolone 40 mg Inj [IMH] 40 mg 1 mL, IV Push, 2x/Day Nicotine 14 mg/24 hr Transderm Patch [IMH] 14 mg 1 patch(es), Transdermal, Daily He had with good success with the combination of medications in reducing his pulmonary symptoms as evidenced by his positive clinical response to treatment and did so without any significant adverse side effects to the medications. He is asking to be discharged so that he can go home to be seen [place] [place] A walk SpO??? study was performed to determine if he qualified for supplemental O??? He will need to seek medical care if he experiences worsening difficulty breathing, has to tripod to breathe, has chest pain or have chest pain with deep breaths, experiences confusion, experiences central or peripheral cyanosis, has a persistent fever, experiences hematemesis or has dark colored sputum. Consultants: PCCM ??? appreciate their assistance in caring for the patient. Fever (Defervesced) Unclear etiology Monitor and treat as needed. Sinus Arrhythmia Bigeminy (Resolved) Suspect is chronic as rhythm is associated with significant lung disease (seen in ~60% of cases) No pain or palpitations noted. 12 L ECG 12/26 showed Sinus tachycardia, APC's SV complex w/ short R-R interval. Non-specific IVCD Abnormal R-wave progression, early transition (QRS area >0 in V2). Borderline inferior ST elevation. BNP and Troponin I were normal (274 & <0.012 respectively). Consider TTE as an outpatient. Abnormal APR/PIM's ??? CRP (Trending ???) ??? PCT (Trending ???) Provided supportive care Trended/correlated levels c? labs, imaging studies & clinical condition. Monitored for symptoms c/w SIRS/Sepsis/sHLH. Leukocytosis (Trending ???) UA negative for UTI Appears to be responding to antimicrobials. Anemia, normocytic Anemia, normocytic: His Hgb level was stable at the time of discharge from the hospital He did not receive PRBC's while hospitalized. Suggest that he follows-up with his outpatient medical provider so that they can recheck a CBC to ensure that the Hgb level has remained stable post-discharge. He has been advised that if he experiences any signs or symptoms of acute/worsening anemia (eg. increasing fatigue, weakness, irregular heartbeats, shortness of breath, dizziness or lightheadedness, chest pain), he should seek prompt medical attention. Hypophosphatemia Mild Trended and treated as needed Pseudo-hyponatremia 2?? to hyperglycemia No treatment needed at this time ??? Trended and treated as needed. Home Medications (11) Active albuterol 90 mcg/inh inhalation aerosol 2 puff(s), PRN, INH, q6hr albuterol-ipratropium 2.5 mg-0.5 mg/3 mL inhalation solution 3 mL, PRN, NEB, QID Daily Leslie oral tablet 1 tab(s), Oral, Daily levothyroxine 112 mcg (0.112 mg) oral tablet 112 mcg = 1 tab(s), Oral, Daily metformin 500 mg oral tablet 500 mg = 1 tab(s), Oral, Daily mirtazapine 7.5 mg oral tablet 7.5 mg = 1 tab(s), Oral, Once a day (at bedtime) montelukast 10 mg oral tablet 10 mg = 1 tab(s), Oral, qPM nabumetone 500 mg oral tablet 500 mg = 1 tab(s), PRN, Oral, BID omeprazole 20 mg oral delayed release capsule 20 mg = 1 cap(s), Oral, Daily prednisone 10 mg oral tablet 15 mg = 1.5 tab(s), Oral, Daily Trelegy Ellipta 200 mcg-62.5 mcg-25 mcg/inh inhalation powder 1 puff(s), INH, Daily Chronically, he had the following disorders that were either monitored closely or treated during his hospitalization: Atherosclerosis CT A/P 12/25 showed mild scattered atherosclerosis of the abdominal aorta and branch vessels. Not on a statin. Started EC ASA. Benign Prostatic Hyperplasia CT A/P 12/25 showed mild enlargement of prostate gland with mass effect on the base of the urinary bladder. No hydronephrosis or nephrolithiasis. No ureteral or bladder calculi. Monitor for symptoms consistent with obstructive uropathy, urinary retention, irritation or increased urine residual volume and treat as needed. Not on medications. DM-II with Hyperglycemia We monitored his FSBG's & SS/LA insulins were adjusted PRN. He was fed an appropriate diet. Discharge planning was implemented to ensure that hehad appropriate outpatient resources and DME available to maintain appropriate glycemic control. Recommend outpatient follow-up with his PCP or [employer]. Diverticulosis Asymptomatic CT A/P 12/25 showed rectosigmoid diverticulosis, no evidence of acute diverticulitis. Mesenteric Calculus (Incidental Finding) Noted on CT A/P 12/25 ??? 1.2 cm calcification in the RLQ Follow-up with his OP team. Nicotine Dependence/Smoker Due to his long-standing nicotine dependence; nicotine replacement was available PRN. He has been counseled on the vital importance of tobacco cessation Outpatient resources and information to include nicotine replacement choices (nicotine patches, nicotine gum, nicotine inhalers, nicotine nasal spray and nicotine lozenges as well as Bupropion-XR andvarenicline) and the QuitlineNC number 8-719-Tphg-NOW ( ) for free materials and counseling is available for use as an outpatient. Appreciate the guidance and expertise from the consultants who were involved in the patient???s care, helping us provide the highest quality healthcare to our patients. Discharge On the date of discharge, he was stable enough to be discharged home.. The patient or his surrogate decision maker(s), appeared to have capacity to make informed medical decisions and appeared to understand his diagnoses, prognosis, and the likelihood of risks and benefits of leaving the hospital and agreed to the discharge plan. All attempts were made to ensure that the discharge was as safe and appropriate as possible. As such, follow-up appointments as well as discharge medication reconciliation was performed. The patient ?? surrogate decision maker(s) were instructed that if his medical condition should change, medical assistance should be sought at the most appropriate and closest medical facility available or call 911. Physical Exam Temperature 36.9 (12:12) Systolic Blood Pressure 121 (12:12) Diastolic Blood Pressure 67 (12:12) Pulse 69 (12:12) SpO2 94 (12:12) Respiratory Rate 18 (12:12) General: 77 year old male in NAD. HEENT: AT/NC and ??? symmetrical. PERRL. Hearing grossly intact. Neck: Supple. Cardiovascular: Bigeminy Respiratory: Symmetrical. Non-labored. Sparse rhonchi and occasional harsh cough. Abdomen/Pelvis: Soft, NT, + bowel sounds in all quadrants. Extremities: HERNANDEZ. ?? gross deformity. ?? edema.??? Neuro: Alert.??? Oriented. CN II-XII grossly intact, but not individually tested. No focal deficits. Psychiatric: Mood and affect are appropriate. Skin: Warm. Dry. Well perfused. ?? overt new rashes or lesions noted. Laboratory Studies Hematology Event Name Event Result Date/Time WBC 13 High 12/28/22 06:56:00 RBC 4.1 Low 12/28/22 06:56:00 Hemoglobin 10.2 gm/dL Low 12/28/22 06:56:00 Hct 34.1 % Low 12/28/22 06:56:00 MCV 83.2 12/28/22 06:56:00 MCH 24.9 pg Low 12/28/22 06:56:00 MCHC 29.9 gm/dL Low 12/28/22 06:56:00 RDW 15.9 % High 12/28/22 06:56:00 Platelet 423 High 12/28/22 06:56:00 Neutro Auto 94.1 % High 12/26/22 08:38:00 Lymph Auto 3.5 % Low 12/26/22 08:38:00 Maury Auto 1.7 % 12/26/22 08:38:00 Eos Auto 0 % 12/26/22 08:38:00 Basophil Auto 0.1 % 12/26/22 08:38:00 NRBC Auto 0 % 12/26/22 08:38:00 Neutro Absolute 13.7 High 12/26/22 08:38:00 Lymph Absolute 0.5 Low 12/26/22 08:38:00 Maury Absolute 0.2 12/26/22 08:38:00 Eos Absolute 0 12/26/22 08:38:00 Baso Absolute 0 12/26/22 08:38:00 NRBC Absolute 0 12/26/22 08:38:00 Immature Grans (Abs) 0.08 High 12/26/22 08:38:00 Immature Granulocytes 0.6 % High 12/26/22 08:38:00 Chemistry Event Name Event Result Date/Time Sodium Lvl 136 mmol/L Low 12/28/22 06:56:00 Potassium Lvl 4.6 mmol/L 12/28/22 06:56:00 Chloride 98 mmol/L 12/28/22 06:56:00 CO2 32 mmol/L High 12/28/22 06:56:00 AGAP 6 mmol/L Low 12/28/22 06:56:00 BUN 20 mg/dL 12/28/22 06:56:00 Creatinine 0.76 mg/dL 12/28/22 06:56:00 BUN/Creat Ratio 26.32 High 12/28/22 06:56:00 Glucose Lvl 181 mg/dL High 12/28/22 06:56:00 Glucose POC 181 mg/dL High 12/28/22 07:15:00 Calcium Lvl 8.2 mg/dL Low 12/28/22 06:56:00 Phosphorus 2.2 mg/dL Low 12/25/22 11:11:00 Globulin 2.9 gm/dL 12/28/22 06:56:00 A/G Ratio 1.1 Low 12/28/22 06:56:00 ALT (SGPT) 15 unit/L 12/28/22 06:56:00 AST (SGOT) 25 unit/L 12/28/22 06:56:00 Bili Total 0.4 mg/dL 12/28/22 06:56:00 Osmolality 279 12/28/22 06:56:00 Magnesium 1.9 mg/dL 12/25/22 11:11:00 Alkaline Phosphatase 87 unit/L 12/28/22 06:56:00 Protein, Total, Serum 6.1 gm/dL Low 12/28/22 06:56:00 Albumin 3.2 gm/dL Low 12/28/22 06:56:00 Procalcitonin 10.1 ng/mL High 12/28/22 06:56:00 CRP 3.8 mg/dL High 12/28/22 06:56:00 eGFR CKD-EPI 94 12/28/22 06:56:00 Troponin I <0.012 12/25/22 16:52:00 NT-pro BNP 274 12/25/22 11:11:00 Estimated Creatinine Clearance 65.42 mL/min 12/28/22 08:56:50 Coagulation Event Name Event Result Date/Time PT 12.6 12/25/22 11:11:00 INR 0.94 12/25/22 11:11:00 PTT 34.8 12/25/22 11:11:00 Point of Care Event Name Event Result Date/Time PT 12.6 12/25/22 11:11:00 INR 0.94 12/25/22 11:11:00 Blood Glucose, Capillary POC 214 mg/dL High 12/28/22 12:11:00 Urinalysis Event Name Event Result Date/Time UA Color Yellow 12/25/22 14:12:00 UA Clarity Clear 12/25/22 14:12:00 UA Spec Grav 1.015 12/25/22 14:12:00 UA Bili Negative 12/25/22 14:12:00 UA pH 7 12/25/22 14:12:00 UA Urobilinogen 0.2 mg/dL 12/25/22 14:12:00 UA Blood Negative 12/25/22 14:12:00 UA Glucose Negative 12/25/22 14:12:00 UA Ketones Negative 12/25/22 14:12:00 UA Protein Negative 12/25/22 14:12:00 UA Nitrite Negative 12/25/22 14:12:00 UA Leuk Est Negative 12/25/22 14:12:00 UA WBC 3 12/25/22 14:12:00 UA RBC 1 12/25/22 14:12:00 UA Mucous 1+ 12/25/22 14:12:00 UA Ca Ox Crystal TRACE 12/25/22 14:12:00 UA Amorph 1+ 12/25/22 14:12:00 UA Epithelial 1 12/25/22 14:12:00 Microbiology Event Name Event Result Date/Time Gram Stain Result Gram Stain Result 12/26/22 00:23:00 Sputum cult w/smear Sputum cult w/smear 12/26/22 00:23:00 All Other Results Event Name Event Result Date/Time RSV by PCR NEGATIVE 12/25/22 18:26:00 Influenza A by PCR NEGATIVE 12/25/22 18:26:00 Influenza B by PCR NEGATIVE 12/25/22 18:26:00 COVID-19 Results Event Name Event Result Date/Time SARS-CoV-2 (COVID-19) PCR Covid(Cepheid) NEGATIVE 12/25/22 18:26:00 Microbiologic Studies: Sputum Gram Stain Result 12/26/22 00:23:00 12/26/22 RARE EPIS. FEW WBCS. MODERATE GRAM POSITIVE COCCI. RARE GRAM POSITIVE PAULO Sputum cult w/smear12/26/22 00:23:00 12/27/22 NORMAL KAMALJIT 12/28/22 NORMAL RESPIRATORY KAMALJIT. NO STAPH AUREUS (NO MRSA/MSSA). NO PSEUDOMONAS AERUGINOSA. Radiographic Studies: CT Abdomen/Pelvis w/ Contrast 12/25/22 13:34:00 No acute intra-abdominal abnormality. No evidence of metastatic disease in the abdomen and pelvis. Rectosigmoid diverticulosis, no evidence of acute diverticulitis. CT Angio Pulmonary 12/25/22 13:21:00 Large masses within the right lung measuring up to 6 cm in the posterior mid right lung and 5 cm inthe medial right lower lobe. Findings are concerning for lung carcinoma. Recommend PET scan or tissue biopsy if not already obtained to evaluate for recurrence. No significant thoracic lymphadenopathy. Bilateral upper lobe predominant emphysema, right worse than left consistent with COPD. Right pleural calcifications. XR Chest 2 Views 12/25/22 11:17:00 No previous exams available. Right lower lobe masses which may represent metastatic disease or lungcarcinoma. Focal pleural and parenchymal scarring right upper lobe. Remote granulomatous disease left lower lobe. XR Chest 1 View Portable 12/27/22 11:20:00 No significant change compared 12/25/2022.. Focal scarring in the right upper lobe. Multiple right lower lobe masses. Follow-Up Plan: Your PCP and PCCM in [place]. Disclaimer: Please note, some of this note was written with voice dictation software. Please contact me with any questions about the content of the note. ??Billin: Time spent in evaluating the patient, coordinating care, chart review and documentation. [Electronically Signed on: 12/28/2022 12:46 EST] RU LAMAR DNP, DNP [Verified on: 12/28/2022 12:46 EST] RU LAMAR DNP [facility] Portable XR Chest AP single view * Generated Domain User for [id number]: TRANSCRIBE PAT BUSH MD: VERIFY, PERFORM PAT BUSH MD: PERFORM, VERIFY PAT BUSH MD: VERIFY Event Display: Report Authored Date: [id number] FINAL REPORT HISTORY: dyspnea/pna FINDINGS: AP chest 11:07 a.m.: Pericardio-cardiac silhouette within normal limits. Small linear opacities with increased pleural thickness in the right upper lobe. Large right parahilar mass in the superior segment right lower lobe. Smaller pulmonary parenchymal mass in the right lower lobe near the cardiophrenic angle. No consolidation or pleural fluid. No pneumothorax. IMPRESSION: No significant change compared 12/25/2022.. Focal scarring in the right upper lobe. Multiple right lower lobe masses. Final Dictated: 12/27/2022 11:20 am PAT BUSH MD Signed (Electronic Signature): 12/27/2022 11:25 am Signed by: PAT BUSH MD XR Chest 2 Views * Generated Domain User for [id number]: TRANSCRIBE PAT BUSH MD: VERIFY, PERFORM PAT BUSH MD: PERFORM, VERIFY PAT BUSH MD: VERIFY Event Display: Report Authored Date: [id number] FINAL REPORT HISTORY: chest pain, SOB FINDINGS: Pericardio-cardiac silhouette within normal limits. Large pleural-based soft tissue mass right lower lobe adjacent the lung hilus. Additional masses located in the medial medial right lower lobe territory. Calcified granuloma in the left lower lobe. Linearopacities with apical thickening right upper lobe. There is blunting of the costophrenic angles. IMPRESSION: No previous exams available. Right lower lobe masses which may represent metastatic disease or lungcarcinoma. Focal pleural and parenchymal scarring right upper lobe. Remote granulomatous disease left lower lobe. Final Dictated: 12/25/2022 11:17 am PAT BUSH MD Signed (Electronic Signature): 12/25/2022 11:22 am Signed by: PAT BUSH MD Note * iCndy Barber MD: VERIFY Cindy Barber MD: VERIFY, PERFORM Cindy Barber MD: PERFORM, VERIFY Cindy Barber MD: VERIFY Event Display: Report Authored Date: [id number] FINAL REPORT HISTORY: chest pain, hx of lung CA FINDINGS: The examination consists of 2 mm axial images of the chest from the thoracic inlet to the adrenals with intravenous contrast. Comparison: Same day chest x-ray. There is good opacification of the pulmonary arteries with no filling defects in the pulmonary trunk, right and left main pulmonary arteries, segmental nor subsegmental branches of the pulmonary arteries. Normal caliber of the thoracic aorta with moderately calcified and soft tissue plaque atherosclerosis. There is no aortic aneurysm or dissection. Prominent emphysematous changes of upper lobes, right worse than left. Posterior right mid lung soft tissue mass involving the inferior aspect of the right upper lobe andsuperior aspect of the right lower lobe. The mass measures approximately 5.9 x 3.9 x 5.0 cm in craniocaudal, anterior-posterior and transverse dimensions respectively. Medial right lower lobe mass measuring approximately 5.0 x 4.3 x 4.0 cm in the craniocaudal, anterior-posterior, and transverse dimensions respectively. 7 x 7 mm right anterolateral noncalcified pulmonary nodule (series 5, image 43). Left lower lobe calcified granuloma (series 5, image 69). No pneumothorax or pleural effusion. Pleural calcification noted in the anterior and posterior aspect of the upper right hemithorax The airways are patent including the trachea and major bronchi. There are no enlarged axillary lymph nodes. There are no enlarged anterior mediastinal, subcarinal or hilar lymph nodes. Normal heart size. Mild three-vessel coronary artery atherosclerosis. There is no pericardial effusion. No traumatic or suspicious osseous abnormality. IMPRESSION: Large masses within the right lung measuring up to 6 cm in the posterior mid right lung and 5 cm inthe medial right lower lobe. Findings are concerning for lung carcinoma. Recommend PET scan or tissue biopsy if not already obtained to evaluate for recurrence. No significant thoracic lymphadenopathy. Bilateral upper lobe predominant emphysema, right worse than left consistent with COPD. Right pleural calcifications. Final Dictated: 12/25/2022 1:21 pm Cindy Barber MD Signed (Electronic Signature): 12/25/2022 1:26 pm Signed by: Cindy Barber MD CT Abdomen and Pelvis W contrast IV * Cindy Barber MD: VERIFY Cindy Barber MD: VERIFY, PERFORM Cindy Barber MD: PERFORM, VERIFY Cindy Barber MD: VERIFY Event Display: Report Authored Date: [id number] FINAL REPORT HISTORY: lower chest pain, eval metastatic disease, hx of lung CA FINDINGS: TECHNIQUE: Axial computed tomography images of the abdomen and pelvis with intravenous contrast. CONTRAST: With; 75 ccs [id number] COMPARISON: None. LIVER: Unremarkable. GALLBLADDER AND BILE DUCTS: Unremarkable. No calcified stone. No ductal dilation. PANCREAS: Mild age appropriate atrophy. SPLEEN: Unremarkable. ADRENAL GLANDS: Unremarkable. KIDNEYS, URETERS, AND BLADDER: Unremarkable. No hydronephrosis or nephrolithiasis. No ureteral or bladder calculi. Partial distention of the urinary bladder with normal bladder wall thickness. REPRODUCTIVE: Mild enlargement of prostate gland with mass effect on the base of the urinary bladder. STOMACH AND BOWEL: Stomach, small and large bowel are normal in caliber. Moderate stool burden noted. Prominent rectosigmoid diverticulosis Large 1.2 cm calcification in the right lower quadrant appears to be a mesenteric calculus. APPENDIX: No CT evidence for appendicitis. PERITONEUM: No free fluid. No free air. LYMPH NODES: No lymphadenopathy. VASCULATURE: Mild scattered atherosclerosis of the abdominal aorta and branch vessels. BONES: No fracture or suspicious osseous abnormality. Mild spondylosis of the thoracolumbar spine. ABDOMINAL WALL AND SOFT TISSUES: Unremarkable. IMPRESSION: No acute intra-abdominal abnormality. No evidence of metastatic disease in the abdomen and pelvis. Rectosigmoid diverticulosis, no evidence of acute diverticulitis. Final Dictated: 12/25/2022 1:34 pm Cindy Barber MD Signed (Electronic Signature): 12/25/2022 1:39 pm Signed by: Cindy Barber MD Patient Care team information Personnel Name: NONE, DOC Address: Address: [place], [place] [address]
--- NOTE | 2023-08-14 20:49 | PC.NURSE ---
Pt presents to ED with 10/10 pain to his right side/shoulder. Pain radiating from the front to the back. 2 days ago, pt noted a ball on his back. Upon inspection, there is a hard lump under the right scapula, painful on palpation. Pt has a chronic cough that has gotten worse and more productive over the last 2 days. Pt is A&Ox4, GCS 15, georgian speaking only. Pt waiting to be seen by ED provider at this time.
--- NOTE | 2023-08-14 21:24 | ED_ITS ---
HPI - General Adult General Chief complaint: General Medical Stated complaint: chest and back pain Time Seen by Provider: 08/14/23 20:05 History of Present Illness HPI narrative: Patient is a 77-year-old male with a history of COPD history of lung cancer currently not undergoing treatment patient refuse presented today with having chest pain that goes from the front to the back. It is very sharp it is worse with deep breath along with shortness of breath. Patient feel he cannot breathe. There is no fever no chills. There is no diaphoresis. There is no vomiting. Minimal coughing. Symptoms been getting worse over last 24 hours. Related Data Home Medications Medication Instructions Recorded Confirmed metformin 500 mg tablet 500 mg PO DAILY 09/28/20 08/12/23 omeprazole 20 mg capsule,delayed 20 mg PO DAILY@0630 12/01/20 08/12/23 release nabumetone 500 mg tablet 1 tab PO BID PRN knee pain 01/29/22 08/12/23 fluticasone fur. 200 mcg-umeclid 1 puff inhalation DAILY 08/28/22 08/12/23 62.5 mcg-vilant 25 mcg inhalat.powder (Trelegy Ellipta) multivitamin with folic acid 400 1 tab PO DAILY 08/28/22 08/12/23 mcg tablet (Daily-Leslie (with folic acid)) levothyroxine 88 mcg tablet 88 mcg PO DAILY@0600 06/17/23 08/12/23 acetaminophen 325 mg tablet 650 mg PO Q6H PRN Pain 06/18/23 08/12/23 (Tylenol) cholecalciferol (vitamin D3) 25 25 mcg PO DAILY 06/18/23 08/12/23 mcg (1,000 unit) tablet topiramate 50 mg tablet 50 mg PO DAILY 06/18/23 08/12/23 mirtazapine 7.5 mg tablet 7.5 mg PO BEDTIME 06/29/23 08/12/23 oxycodone 5 mg tablet 5 mg PO BID PRN Pain 06/29/23 08/12/23 ipratropium 0.5 mg-albuterol 3 mg 3 ml inhalation QID PRN wheezing 07/02/23 08/12/23 (2.5 mg base)/3 mL nebulization soln topiramate 50 mg tablet 100 mg PO BEDTIME 07/02/23 08/12/23 prednisone 20 mg tablet 20 mg PO DAILY 08/12/23 Previous Rx's Medication Instructions Recorded albuterol sulfate 90 mcg/actuation 2 inh inhalation Q4-6H PRN 12/01/22 breath activated powder inhaler shortness of breath or wheezing #1 ea theophylline 400 mg 400 mg PO DAILY #30 tabs 04/02/23 tablet,extended release 24 hr pyridoxine (vitamin B6) 50 mg 50 mg PO DAILY 90 days #90 tabs 04/22/23 tablet cefdinir 300 mg capsule 300 mg PO BID #14 caps 07/04/23 doxycycline monohydrate 100 mg 100 mg PO BID #14 tabs 07/04/23 tablet ferrous sulfate 324 mg (65 mg 324 mg PO DAILY #30 tabs 07/04/23 iron) tablet,delayed release nicotine 14 mg/24 hr daily 14 mg transdermal DAILY #28 ea 07/04/23 transdermal patch prednisone 10 mg tablet See Rx Instructions .Route 07/04/23 .COMPLEX #20 tabs fentanyl 25 mcg/hr transdermal 1 patch transdermal Q72H #2 ea 07/12/23 patch hydromorphone 2 mg tablet 2 mg PO Q8H PRN pain #7 tabs 07/12/23 (Dilaudid) Allergies Allergy/AdvReac Type Severity Reaction Status Date / Time shellfish derived Allergy Severe ANAPHYLAXIS Verified 08/12/23 13:44 [SHELLFISH DERIVED] pollen extracts [POLLEN] Allergy Intermediate RUNNING Verified 08/12/23 13:44 NOSE, WATERY EYES, SNEEZING varenicline [VARENICLINE] AdvReac Unknown PALPITATION Verified 08/12/23 13:44 S Review of Systems 2 Review of Systems: Positive minimal cough positive increasing shortness of breath positive chest pain going from the front to the back Yes all other systems are reviewed and are negative PMF Past Medical History Medical History Acute exacerbation of chronic obstructive pulmonary disease Abnormal PET scan of colon Tobacco dependence Chronic respiratory failure Sepsis Osteoporosis COPD (chronic obstructive pulmonary disease) Ureteral calculi Hypertension Hypothyroidism GERD (gastroesophageal reflux disease) Osteoarthritis Oxygen dependent Diabetes Asthma Surgical History History of lithotripsy (~2008) History of cataract surgery (~2011) History of lung biopsy (~2021) History of appendectomy Family History Family History Father Throat cancer Brother Lung cancer Other Hypertension Social History Social History Household Members: Spouse Housing: Apartment Are you a primary child care worker to a significant other at home: No Do you presently have visiting nurse or other home services: No Alcohol intake: never Patient Tobacco Use Status: Current everyday Tobacco user Tobacco use type: Cigarette Cigarette Packs Per Day: 0.5 Cigarettes Per Day: 7 Years Smoked: 60 Smoked in Last 30 Days: Yes e-Cigarette/Vaping Use: Currently Using Second Hand Smoke Exposure: No Use of substances other than those prescribed or required for medical reasons: No Advance Directives: No Advance Directives Information Provided: No Advance Directives Date on File: 12/18/20 service: No Current occupational status: unemployed and retired Physical Exam ED Vital Signs: Vital Signs - 24 hr 08/14/23 17:42 08/14/23 21:34 08/14/23 23:46 Temperature 98.4 F Pulse Rate 89 97 92 Respiratory Rate 17 18 16 Blood Pressure 104/52 L 110/53 L Pulse Oximetry 93 93 Oxygen Delivery Method Room Air Room Air BMI result Body Mass Index 16.3 Appearance: Alert. Oriented X3. No acute distress. Eyes: Pupils equal, round and reactive to light. ENT: Pharynx normal. Neck: Normal inspection. Neck supple. No lymph nodes noted. No crepitus CVS: Normal heart rate and rhythm. Pulses normal. Normal S1 and S2 Respiratory: diminished breath sounds bilaterally Abdomen: Soft and nontender. No rigidity. No distention. good BS x4 Skin: Skin warm and dry. Normal skin color. Normal skin turgor. Extremities: No lower extremity edema. Neurovascular intact to all extremities. No Lacerations. No Rash Neuro: Oriented X 3. No motor deficit. No sensory deficit. Moving all extermities. No slurred speech Medications Administered Discontinued Medications Generic Name Dose Route Start Last Admin Trade Name Freq PRN Reason Stop Dose Admin Albuterol Sulfate 5 mg/ 0 mg 08/14/23 21:20 08/14/23 21:29 Albuterol/Ipratropium 3 ml INHALE 08/14/23 21:21 7.5 each ONCE ONE Administration Iohexol 100 ml 08/14/23 23:01 08/14/23 23:01 Iohexol 350 Mg/Ml 100 Ml Infus..Btl IV 08/14/23 23:02 65 ml ONCE ONE Administration Methylprednisolone Sodium Succinate 125 mg 08/14/23 21:20 08/14/23 21:29 Methylprednisolone Sod Succ 125 Mg/2 Ml Vial IVPUSH 08/14/23 21:21 125 mg ONCE ONE Administration Medical Decision Making Medical Decision Making [facility] Narrative: positive history of COPD history of lung cancer presented today with having increasing shortness of breath. Chest pain from the front going to the back. Steroid ordered. Nebulizer treatment ordered. We will get a CTA of the chest to rule out the possibility of PE. Further delineate the lung mass. patient's COVID flu RSV were all negative. patient given steroid given a continuous treatment symptom improved mildly. CTA of the chest was done. It was grossly negative for any acute evidence of pulmonary emboli. Patient will be admitted for COPD exacerbation. Case discussed with the hospitalist team. VBG showed no evidence of CO2 retention. O2 sat is approximately 92% on room air. Differential Diagnosis Differential Diagnoses: The differential diagnosis associated with the presentation includes COPD, pneumonia, PE, congestive heart failure, pneumothorax , flu, RSV, COVID, dissection Admission/Observation Consideration of admission/observation: Escalation of care including admission/observation considered Consult Healthcare Provider Management of the patient was discussed with: Hospitalist Lab Data [facility] Lab Attestation statement: I reviewed the patient's lab results. 08/14/23 18:05 08/14/23 18:05 Labs: Lab Results 08/14/23 08/14/23 08/14/23 Range/Units 17:58 18:05 22:24 WBC 11.6 H (4.8-10.8) X10*3/uL RBC 4.27 L (4.60-5.80) X10*6/uL Hgb 9.8 L (14.0-18.0) g/dl Hct 32.7 L (42.0-52.0) % MCV 76.6 L (80.0-98.0) fL MCH 23.0 L (27.0-33.0) pg MCHC 30.0 L (31.0-36.0) g/dl RDW 16.2 H (11.0-16.0) % Plt Count 617 H (160-400) X10*3/uL MPV 9.5 (9.4-12.4) fL Immature Gran % (Auto) 0.4 (0.0-0.4) % Neut % (Auto) 78.0 H (45-73) % Lymph % (Auto) 10.4 L (20-40) % Barrow % (Auto) 6.3 (2-11) % Eos % (Auto) 4.4 H (0-4) % Baso % (Auto) 0.5 (0-2) % Lymph # (Auto) 1.2 (1.2-4.9) X10*3/uL Barrow # (Auto) 0.7 (0.1-1.2) X10*3/uL Eos # (Auto) 0.5 H (0.0-0.4) X10*3/uL Baso # (Auto) 0.1 (0.0-0.2) X10*3/uL Abs Immat Gran (auto) 0.05 H (0.00-0.03) X10*3/uL Absolute Neuts (auto) 9.0 H (2.0-8.3) x10*3/uL Absolute Nucleated RBC 0.000 (0.0-0.012) X10*3/uL Nucleated RBC % (auto) 0.0 (0.0-0.2) /100WBC VBG pH 7.44 H (7.32-7.43) VBG pCO2 38 mmHg VBG pO2 51 mmHg VBG HCO3 26 (22-26) mmol/L VBG O2 Saturation 82.0 % VBG Base Excess 2.1 mmol/L Sodium 138 (135-145) mmol/L Potassium 4.5 (3.3-5.1) mmol/L Chloride 103 (96-108) mmol/L Carbon Dioxide 26 (22-29) mmol/L Anion Gap 14 (12-20) BUN 6 L (9-16) mg/dL Creatinine 0.70 (0.5-1.4) mg/dL Estim Creat Clear Calc 57.3 Estimated GFR > 60 Random Glucose 107 (60-115) mg/dL Calcium 9.0 (8.4-10.2) mg/dL Total Bilirubin 0.3 (0.0-1.0) mg/dL Direct Bilirubin 0.1 (0.0-0.5) mg/dL AST 22 (5-37) U/L ALT 7 (0-40) U/L Alkaline Phosphatase 106 (39-117) U/L Troponin I High Sens < 2.7 (<3.5-35.0) ng/L Total Protein 7.0 (6.5-8.0) g/dL Albumin 3.5 (3.5-5.0) g/dL Lipase 10 (8-78) U/L COVID-19 (ELIO) Negative (Negative) COVID-19 Clin Com See Note Influenza Type A (YOSELIN) Negative (Negative) Influenza Type B ([place]SELIN) Negative (Negative) Influenza A & B Note See Note Independent Interpretation I performed an independent interpretation of an: EKG ( my interpretation patient's EKG showed a sinus pattern heart rate is 80 AK QRS QTC within normal limits there is no acute ST segment elevation noted.) and Plain X-Ray ( Chest x-ray grossly negative for any acute evidence of pneumonia) Radiology Impression Discussion of test interpretation with radiology: I have reviewed the radiologist's reading. Independent Historian Clinical information obtained from an independent historian. History obtained from or confirmed by: Spouse External Record Review External record reviewed: Inpatient record previous admission records Chronic Conditions COPD, lung cancer Critical Care Time Critical Care Time Critical Care Time: Yes Total Critical Care Time: 40 Attestation: I have personally provided 40 minutes of critical care time exclusive of time spent on separately billable procedures. Time includes review of lab data, radiology results, discussion with consultants, and monitoring for potential decompensation. Interventions were performed as documented above Discharge Plan Discharge Clinical Impression: COPD (chronic obstructive pulmonary disease) Patient Disposition: Admitted As Inpatient Prescriptions: No Action metformin 500 mg tablet 500 mg PO DAILY Rx Instructions: take with food omeprazole 20 mg capsule,delayed release(DR/EC) 20 mg PO DAILY@0630 albuterol sulfate 90 mcg/actuation aerosol powdr breath activated 2 inh inhalation Q4-6H PRN (Reason: shortness of breath or wheezing) Qty: 1 0RF nabumetone 500 mg tablet 1 tab PO BID PRN (Reason: knee pain) oxycodone 5 mg tablet 5 mg PO BID PRN (Reason: Pain) mirtazapine 7.5 mg tablet 7.5 mg PO BEDTIME multivitamin with folic acid [Daily-Leslie (with folic acid)] 400 mcg tablet 1 tab PO DAILY Trelegy Ellipta 200-62.5-25 mcg blister with device 1 puff inhalation DAILY levothyroxine 88 mcg tablet 88 mcg PO DAILY@0600 topiramate 50 mg tablet 50 mg PO DAILY cholecalciferol (vitamin D3) 25 mcg (1,000 unit) tablet 25 mcg PO DAILY acetaminophen [Tylenol] 325 mg Tablet 650 mg PO Q6H PRN (Reason: Pain) fentanyl 25 mcg/hr patch 72 hour 1 patch transdermal Q72H Qty: 2 0RF Rx Instructions: Partial Fill upon patient request. hydromorphone [Dilaudid] 2 mg tablet 2 mg PO Q8H PRN (Reason: pain) Qty: 7 0RF Rx Instructions: Partial Fill upon patient request. ipratropium-albuterol 0.5 mg-3 mg(2.5 mg base)/3 mL solution for nebulization 3 ml inhalation QID PRN (Reason: wheezing) topiramate 50 mg tablet 100 mg PO BEDTIME nicotine 14 mg/24 hr Patch 24 Hour 14 mg transdermal DAILY Qty: 28 0RF prednisone 10 mg tablet See Rx Instructions .ROUTE .COMPLEX Qty: 20 0RF Rx Instructions: 4 tabs daily for 2 days, then 3 tabs daily for 2 days, then 2 tabs daily for 2 days, then 1 tab daily for 2 days cefdinir 300 mg capsule 300 mg PO BID Qty: 14 0RF doxycycline monohydrate 100 mg tablet 100 mg PO BID Qty: 14 0RF ferrous sulfate 324 mg (65 mg iron) tablet,delayed release (DR/EC) 324 mg PO DAILY Qty: 30 0RF pyridoxine (vitamin B6) 50 mg tablet 50 mg PO DAILY 90 Days Qty: 90 3RF prednisone 20 mg tablet 20 mg PO DAILY theophylline 400 mg tablet extended release 24 hr 400 mg PO DAILY Qty: 30 6RF
--- NOTE | 2023-08-14 21:27 | PC.NURSE ---
20g IV placed in the left forearm. RT at bedside. Pt medicated per JAN.
[2023-08-14] MEDS: methylPREDNISolone Sod Succ 125 MG/2 ML VIAL IVPUSH (21:29)
[2023-08-14] MEDS: Albuterol Sulfate 5 MG, Albuterol/Iprat 2.5/0.5MG 3 ML 3 ML INHALE (21:29)
[2023-08-14 21:34] VITALS: PULSE 97; RESP 18; O2SAT 94
[2023-08-14 22:30] LABS: VBG Base Excess 2.1 mmol/L; VBG HCO3 26 mmol/L (22-26); VBG pCO2 38 mmHg; VBG pH 7.44 (7.32-7.43); VBG pO2 51 mmHg
[2023-08-14 22:40] LABS: Venous Blood Gas Refer to POC result
[2023-08-14] MEDS: iohexoL 350 MG/ML 100 ML INFUS..BTL IV (23:01)
[2023-08-14 23:46] VITALS: BP 110/53; PULSE 92; RESP 16; O2SAT 93
[2023-08-15] VITALS (9 sets, daily range): BP systolic 112–131; BP diastolic 54–66; PULSE 68–95; RESP 16–20; TEMP 35.8–36.8; O2SAT 90–98; BMI 16.0
--- NOTE | 2023-08-15 00:29 | PM.IMHP ---
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 Patient states he has been having wheezing, dyspnea worse with exertion and nonproductive cough that started on the day of presentation.? It is progressive and worse with ambulation.? He continues to smoke tobacco.? Patient has refused therapy for lung cancer.? He denies fever, chills, chest discomfort, palpitations, abdominal pain, changes in urinary or bowel habits. In the emergency department, patient with dyspnea and tachypnea despite multiple DuoNeb treatments. Review of Systems Constitutional: Constitutional: Reports fatigue and Reports malaise Cardiovascular: Cardiovascular: Reports dyspnea on exertion Respiratory: Respiratory: Reports cough, Reports dyspnea on exertion and Reports wheezing Gastrointestinal: Gastrointestinal: Reports no additional gastrointestinal complaints Genitourinary: Genitourinary: Reports no additional male genitourinary complaints Endocrine: Endocrine: Reports fatigue Allergic/Immunologic: Allergic/Immunologic: Reports wheezing [facility] Medical History Acute exacerbation of chronic obstructive pulmonary disease Abnormal PET scan of colon Tobacco dependence Chronic respiratory failure Sepsis Osteoporosis COPD (chronic obstructive pulmonary disease) Ureteral calculi Hypertension Hypothyroidism GERD (gastroesophageal reflux disease) Osteoarthritis Oxygen dependent Diabetes Asthma Family History Father Throat cancer Brother Lung cancer Other Hypertension Surgical History History of lithotripsy (~2008) History of cataract surgery (~2011) History of lung biopsy (~2021) History of appendectomy Social History Household Members: Spouse Housing: Apartment Are you a primary client care specialist to a significant other at home: No Do you presently have visiting nurse or other home services: No Alcohol intake: never Patient Tobacco Use Status: Current everyday Tobacco user Tobacco use type: Cigarette Cigarette Packs Per Day: 0.5 Cigarettes Per Day: 7 Years Smoked: 60 Smoked in Last 30 Days: Yes e-Cigarette/Vaping Use: Currently Using Second Hand Smoke Exposure: No Use of substances other than those prescribed or required for medical reasons: No Advance Directives: No Advance Directives Information Provided: No Advance Directives Date on File: 12/18/20 service: No Current occupational status: unemployed and retired Meds Allergies Allergy/AdvReac Type Severity Reaction Status Date / Time shellfish derived Allergy Severe ANAPHYLAXIS Verified 08/12/23 13:44 [SHELLFISH DERIVED] pollen extracts [POLLEN] Allergy Intermediate RUNNING Verified 08/12/23 13:44 NOSE, WATERY EYES, SNEEZING varenicline [VARENICLINE] AdvReac Unknown PALPITATION Verified 08/12/23 13:44 S Home Medications Medication Instructions Recorded Confirmed Last Taken Type metformin 500 mg tablet 500 mg PO DAILY 09/28/20 08/12/23 06/17/23 09:00 History omeprazole 20 mg capsule,delayed 20 mg PO DAILY@0630 12/01/20 08/12/23 06/17/23 06:30 History release nabumetone 500 mg tablet 1 tab PO BID PRN knee pain 01/29/22 08/12/23 08/28/22 History fluticasone fur. 200 mcg-umeclid 1 puff inhalation DAILY 08/28/22 08/12/23 06/17/23 09:00 History 62.5 mcg-vilant 25 mcg inhalat.powder (Trelegy Ellipta) multivitamin with folic acid 400 1 tab PO DAILY 08/28/22 08/12/23 06/17/23 09:00 History mcg tablet (Daily-Leslie (with folic acid)) levothyroxine 88 mcg tablet 88 mcg PO DAILY@0600 06/17/23 08/12/23 06/17/23 06:00 History acetaminophen 325 mg tablet 650 mg PO Q6H PRN Pain 06/18/23 08/12/23 Unknown History (Tylenol) cholecalciferol (vitamin D3) 25 25 mcg PO DAILY 06/18/23 08/12/23 06/17/23 09:00 History mcg (1,000 unit) tablet topiramate 50 mg tablet 50 mg PO DAILY 06/18/23 08/12/23 06/17/23 09:00 History mirtazapine 7.5 mg tablet 7.5 mg PO BEDTIME 06/29/23 08/12/23 Unknown History oxycodone 5 mg tablet 5 mg PO BID PRN Pain 06/29/23 08/12/23 Unknown History ipratropium 0.5 mg-albuterol 3 mg 3 ml inhalation QID PRN wheezing 07/02/23 08/12/23 Unknown History (2.5 mg base)/3 mL nebulization soln topiramate 50 mg tablet 100 mg PO BEDTIME 07/02/23 08/12/23 Unknown History prednisone 20 mg tablet 20 mg PO DAILY 08/12/23 Unknown History Physical Exam Vital Signs and Narrative: Vital Signs: Last Vital Signs Temp 98.4 F 08/14/23 17:42 Pulse 92 08/14/23 23:46 Resp 16 08/14/23 23:46 BP 110/53 L 08/14/23 23:46 Pulse Ox 93 08/14/23 23:46 O2 Del Method Room Air 08/14/23 23:46 BMI result Body Mass Index 16.3 Middle-aged male lying in bed in mild distress Neck supple, no JVD Regular rate and rhythm, S1-S2 heard Bilateral wheezing without crackles Abdomen soft nontender, no guarding, no rigidity Patient is awake, alert and oriented to self, place, time and person ; no focal motor deficit Psych: Normal mood No pedal edema Results Labs 08/14/23 18:05 08/14/23 18:05 Labs: Laboratory Results - last 24 hr 08/14/23 08/14/23 08/14/23 17:58 18:05 22:24 MCV 76.6 L MCH 23.0 L MCHC 30.0 L RDW 16.2 H Plt Count 617 H MPV 9.5 Immature Gran % (Auto) 0.4 Neut % (Auto) 78.0 H Lymph % (Auto) 10.4 L Hardee % (Auto) 6.3 Eos % (Auto) 4.4 H Baso % (Auto) 0.5 Lymph # (Auto) 1.2 Hardee # (Auto) 0.7 Eos # (Auto) 0.5 H Baso # (Auto) 0.1 Abs Immat Gran (auto) 0.05 H Absolute Neuts (auto) 9.0 H Absolute Nucleated RBC 0.000 Nucleated RBC % (auto) 0.0 VBG pH 7.44 H VBG pCO2 38 VBG pO2 51 VBG HCO3 26 VBG O2 Saturation 82.0 VBG Base Excess 2.1 Anion Gap 14 Estim Creat Clear Calc 57.3 Estimated GFR > 60 Random Glucose 107 Calcium 9.0 Total Bilirubin 0.3 Direct Bilirubin 0.1 AST 22 ALT 7 Alkaline Phosphatase 106 Total Protein 7.0 Albumin 3.5 Lipase 10 COVID-19 (ELIO) Negative COVID-19 Clin Com See Note Influenza Type A (YOSELIN) Negative Influenza Type B (YOSELIN) Negative Influenza A & B Note See Note Imaging Radiologist's Impressions: Impressions Ribs X-Ray 08/14/23 18:30 IMPRESSION: No displaced rib fracture appreciated. Chronic appearing changes as described above. No acute superimposed airspace disease or pneumothorax. Chest CTA 08/14/23 23:00 IMPRESSION: 1. No evidence of pulmonary emboli. 2. Large right-sided lung masses as described above highly suggestive of neoplasm. 3. Underlying changes of emphysema. VTE: negative. Assessment and Plan (1) Asthma-chronic obstructive pulmonary disease overlap syndrome: Status: Acute Plan This is a 77-year-old male with pertinent history of asthma as/COPD overlap syndrome not on home oxygen, hypothyroidism, mood disorder, ekt-dzwxjfj-uknksunqz diabetes mellitus, history of lung cancer, tobacco use disorder presents to the emergency department for evaluation of dyspnea. #.? Acute respiratory distress due to acute exacerbation of asthma/COPD.? Will admit patient and initiate systemic steroids.? Scheduled and p.r.n. DuoNebs.? Continue home inhaler.? Initiating azithromycin for pleiotropic effect #. Reactive leukocytosis: in the setting of above #.? Gba-jthpwgb-yyryhbhlj diabetes mellitus.? Initiating Accu-Cheks with sliding scale insulin in the setting of steroid use #.? Hypothyroidism.? On Synthroid #.? Mood disorder.? Continue home mood stabilizers #.? Chronic Microcytic anemia.? On iron supplementation #.? Lung cancer: Pt not a surgical candidate and has refused radiation treatment #.? Tobacoo use disorder: Ordering nicotine patch. Recommended cessation Med rec pending DVT prophylaxis:? Lovenox Full code Regular diet Time Spent With Patient Time: Total time managing care of this patient today ____ minutes. Quality Stroke Does the patient have a stroke diagnosis?: No VTE Prior VTE?: No VTE Risk Level:: Medical - moderate - high VTE Device Contraindication: Treatment Not Indicated VTE Drug Contraindication: N/A - Med Ordered
[2023-08-15] MEDS: Enoxaparin Sodium 40 MG/0.4 ML SYRINGE SUBCUT (01:26)
[2023-08-15] MEDS: Azithromycin 500 MG in 0.9 % Sodium Chloride 250 ML 125 MG IV (01:26)
--- NOTE | 2023-08-15 01:50 | PC.NURSE ---
Pt is being moved to inpatient. Family member is taking all belongings home.
[2023-08-15 05:29] LABS: Basophils Percent Auto 0.3 % (0-2); Hematocrit 31.8 % (42.0-52.0); Hemoglobin 9.4 g/dl (14.0-18.0); Imm Gran Abs Auto 0.04 X10*3/uL (0.00-0.03); Imm Gran Pct Auto 0.7 % (0.0-0.4); Lymphocytes Absolute Auto 0.2 X10*3/uL (1.2-4.9); MANUAL DIFF FLAG SCAN; Mean Corpuscular HGB Conc 29.6 g/dl (31.0-36.0); Mean Corpuscular Hemoglobin 22.3 pg (27.0-33.0); Mean Corpuscular Volume 75.4 fL (80.0-98.0); Mean Platelet Volume 9.3 fL (9.4-12.4); Monocytes Percent Auto 0.3 % (2-11); Neutrophils Absolute Auto 5.5 x10*3/uL (2.0-8.3); Neutrophils Percent Auto 94.7 % (45-73); Platelet Count 484 X10*3/uL (160-400); Red Blood Count 4.22 X10*6/uL (4.60-5.80); Red Cell Distribution Width 16.3 % (11.0-16.0); SCAN SMEAR FLAG 1; White Blood Count 5.8 X10*3/uL (4.8-10.8)
[2023-08-15 05:45] LABS: Alanine Aminotransferase 5 U/L (0-40); Albumin Level 3.1 g/dL (3.5-5.0); Alkaline Phosphatase 95 U/L (39-117); Anion Gap 12 (12-20); Aspartate Amino Transferase 17 U/L (5-37); Bilirubin Total 0.3 mg/dL (0.0-1.0); Blood Urea Nitrogen 9 mg/dL (9-16); Calcium 8.7 mg/dL (8.4-10.2); Carbon Dioxide 25 mmol/L (22-29); Chloride 102 mmol/L (96-108); Creatinine Clr Calc Pharmacy 50.3; Estimated Glomerular Filt Rate > 60; Glucose Random 292 mg/dL (60-115); Potassium 4.6 mmol/L (3.3-5.1); Sodium 134 mmol/L (135-145); Total Protein 6.4 g/dL (6.5-8.0)
[2023-08-15 05:51] LABS: SLIDE REVIEW VERIFIED
[2023-08-15 07:12] LABS: Glucose, Whole Blood 259 mg/dL (60-115)
[2023-08-15] MEDS: Albuterol/Iprat 2.5/0.5MG 3 ML AMPUL.NEB INHALE ×4 (08:13→19:30)
--- NOTE | 2023-08-15 08:41 | PM.EVENT ---
Event Note Date of Service: 08/15/23 Time Spent With Patient Time: Total time managing care of this patient today ____ minutes.
[2023-08-15] MEDS: Insulin Lispro 100 UNIT/ML 3 ML VIAL SUBCUT ×4 (09:12→21:03)
[2023-08-15] MEDS: Nicotine 14 MG PATCH.TD24 TRANSDERMA (09:12)
[2023-08-15] MEDS: methylPREDNISolone Sod Succ 40 MG/ML VIAL IVPUSH ×2 (09:12→20:23)
--- NOTE | 2023-08-15 09:48 | PHA.MEDREC ---
Pharmacy Consult ? Medication Reconciliation Pharmacy has completed the medication reconciliation. spoke with patient and family through an certified court/medical interpreter. They confirmed his medications. Patient says he has oxycodone 5mg at home but has not started it. He says he does not take mirtazapine and topiramate everyday.
[2023-08-15 11:06] LABS: Glucose, Whole Blood 198 mg/dL (60-115)
--- NOTE | 2023-08-15 16:09 | MHC.CM.PN ---
CM MET WITH PT WITH DIRECTOR BUSINESS INTEGRATION PT REPORTS HE LIVES WITH HIS AND IS INDEPENDENT WITH CARE HE USES A CANE TO AMBULATE AND HAS A NEBULIZER AT HOME HE HAS NO HOME SERVICES HCP ON FILE PCP: PARISA HERNANDEZ OBSERVATION NOTICE DELIVERED DCP: HOME NO SERVICES VIA PRIVATE TRANSPORT
[2023-08-15 16:53] LABS: Glucose, Whole Blood 171 mg/dL (60-115)
[2023-08-15] MEDS: Acetaminophen 325 MG TABLET 650 MG PO (19:47)
[2023-08-15] MEDS: Melatonin 3 MG TABLET 6 MG PO (19:47)
[2023-08-15] MEDS: 0.9 % Sodium Chloride Flush 3 ML SYRINGE IVFLUSH (19:47)
[2023-08-15] MEDS: Benzonatate 100 MG CAPSULE 200 MG PO (20:23)
[2023-08-15 21:02] LABS: Glucose, Whole Blood 278 mg/dL (60-115)
[2023-08-15] MEDS: traMADoL HCL 50 MG TABLET 25 MG PO (21:04)
[2023-08-16] MEDS: Enoxaparin Sodium 40 MG/0.4 ML SYRINGE SUBCUT (00:24)
[2023-08-16] MEDS: Azithromycin 500 MG in 0.9 % Sodium Chloride 250 ML 125 MG IV (00:24)
[2023-08-16 04:00] VITALS: BP 118/58; PULSE 81; RESP 16; TEMP 36.3; O2SAT 93
[2023-08-16 07:27] VITALS: BP 118/52; PULSE 69; RESP 20; TEMP 36.2; O2SAT 96
[2023-08-16] MEDS: Albuterol/Iprat 2.5/0.5MG 3 ML AMPUL.NEB INHALE ×2 (07:54→11:45)
[2023-08-16 07:55] VITALS: PULSE 69; RESP 18; O2SAT 93
[2023-08-16 08:02] LABS: Glucose, Whole Blood 167 mg/dL (60-115)
[2023-08-16] MEDS: Nicotine 14 MG PATCH.TD24 TRANSDERMA (08:26)
[2023-08-16] MEDS: methylPREDNISolone Sod Succ 40 MG/ML VIAL IVPUSH (08:26)
[2023-08-16] MEDS: Insulin Lispro 100 UNIT/ML 3 ML VIAL SUBCUT ×2 (08:26→12:47)
[2023-08-16] MEDS: 0.9 % Sodium Chloride Flush 3 ML SYRINGE IVFLUSH (08:27)
[2023-08-16] MEDS: traMADoL HCL 50 MG TABLET 25 MG PO (08:35)
[2023-08-16] MEDS: Benzonatate 100 MG CAPSULE 200 MG PO (09:33)
--- NOTE | 2023-08-16 11:14 | P.DS_ITS ---
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 Patient states he has been having wheezing, dyspnea worse with exertion and nonproductive cough that started on the day of presentation.? It is progressive and worse with ambulation.? He continues to smoke tobacco.? Patient has refused therapy for lung cancer.? He denies fever, chills, chest discomfort, palpitations, abdominal pain, changes in urinary or bowel habits. In the emergency department, patient with dyspnea and tachypnea despite multiple DuoNeb treatments. Hospital course:Patient was admitted for exacerbation of copd and treated with IV steroid, bronchodilator by Neb and is doing better, breathing is normal at 18, O2 sat of 96 on room air. He will be disdcharged with oral Prednisone for total of 5 days Time Spent with Patient Time attestation: Total time managing care of this patient today ____ minutes. Discharge coordination time: Greater than 30 minutes Quality: Safe Use of Opioids Does Pt have an Active Cancer Diagnosis on the Problem List?: No Quality: Stroke Does the patient have a stroke diagnosis?: No Physical Exam Vital Signs: Vital Signs: Last Vital Signs Temp 97.2 F 08/16/23 07:27 Pulse 69 08/16/23 07:55 Resp 18 08/16/23 07:55 BP 118/52 L 08/16/23 07:27 Pulse Ox 96 08/16/23 07:27 O2 Del Method Room Air 08/16/23 07:27 BMI result Body Mass Index 16.0 DS: Data Data Completed and Pending Completed studies during hospitalization [Text1]: Procedures Dilation of Right Ureter with Intraluminal Device, Via Natural or Artificial Opening Endoscopic (11/16/21) Extirpation of Matter from Right Ureter, Via Natural or Artificial Opening Endoscopic (11/16/21) Fluoroscopy of Right Kidney, Ureter and Bladder (11/16/21) Labs on day of discharge: Laboratory Results - last 24 hr 08/15/23 08/15/23 08/16/23 16:44 20:56 07:34 POC Glucose 171 H 278 H 167 H Discharge Plan Discharge Anticipated Discharge Date/Time: 08/16/23 11:10 Patient Disposition: Home, Self-Care Discharge Diagnosis: Copd exacerbation Referrals: Luz Mccall, MECHANICAL DESIGN ENGINEER [Primary Care Provider] - 1 Week Discharge Medications: New prednisone 20 mg tablet 40 mg PO DAILY Qty: 8 0RF Continued metformin 500 mg tablet 500 mg PO DAILY Rx Instructions: take with food omeprazole 20 mg capsule,delayed release(DR/EC) 20 mg PO DAILY@0630 albuterol sulfate 90 mcg/actuation aerosol powdr breath activated 2 inh inhalation Q4-6H PRN (Reason: shortness of breath or wheezing) Qty: 1 0RF nabumetone 500 mg tablet 1 tab PO BID PRN (Reason: knee pain) mirtazapine 7.5 mg tablet 7.5 mg PO BEDTIME multivitamin with folic acid [Daily-Leslie (with folic acid)] 400 mcg tablet 1 tab PO DAILY Trelegy Ellipta 200-62.5-25 mcg blister with device 1 puff inhalation DAILY levothyroxine 88 mcg tablet 88 mcg PO DAILY@0600 topiramate 50 mg tablet 50 mg PO DAILY cholecalciferol (vitamin D3) 25 mcg (1,000 unit) tablet 25 mcg PO DAILY acetaminophen [Tylenol] 325 mg Tablet 650 mg PO Q6H PRN (Reason: Pain) ipratropium-albuterol 0.5 mg-3 mg(2.5 mg base)/3 mL solution for nebulization 3 ml inhalation QID PRN (Reason: wheezing) topiramate 50 mg tablet 100 mg PO BEDTIME testosterone cypionate 200 mg/mL oil 100 mg IM Q2W duloxetine 30 mg capsule,delayed release(DR/EC) 30 mg PO DAILY ibandronate 150 mg tablet 150 mg PO QMONTH pyridoxine (vitamin B6) 50 mg tablet 50 mg PO DAILY 90 Days Qty: 90 3RF prednisone 20 mg tablet 20 mg PO DAILY theophylline 400 mg tablet extended release 24 hr 400 mg PO DAILY Qty: 30 6RF Discharge Orders: Discharge Order (Routine); Ordered 08/16/23 Ordered By: Paulo Espinoza Diet: Advance to usual diet Activity on Discharge: As tolerated Stand Alone Forms: Patient Portal Discharge page Care Plan Goals: recovery from copd exacerbation Health Concerns: copd Plan of Treatment: use inhalers and take prednisone as directed Assessment: as above
[2023-08-16 11:45] VITALS: PULSE 67; RESP 18; O2SAT 94
[2023-08-16 11:49] LABS: Glucose, Whole Blood 193 mg/dL (60-115)
--- NOTE | 2023-08-16 12:10 | MHC.CM.PN ---
PT WILL DC HOME TODAY WITH NO SERVICES FAMILY TO TRANSPORT
== END 2023-08-16 14:26 | disposition home or self-care (01) ==
LOC: HO.ED 08-15 00:18 → HO.EDOVER 08-15 00:31 → HO.S3 08-15 01:01
PROVIDERS: Admitting Provider Student in an Organized Health Care Education/Training Program; Emergency Provider Emergency Medicine Emergency Medical Services; PCP Nurse Practitioner Family; Visit Provider Internal Medicine
DX: J44.1 Chronic obstructive pulmonary disease with (acute) exacerbation (principal); R07.9 Chest pain, unspecified; M54.9 Dorsalgia, unspecified; R06.00 Dyspnea, unspecified; J44.9 Chronic obstructive pulmonary disease, unspecified; I10 Essential (primary) hypertension; E11.9 Type 2 diabetes mellitus without complications; Z99.81 Dependence on supplemental oxygen; Z23 Encounter for immunization; Z85.118 Personal history of other malignant neoplasm of bronchus and lung; Z20.822 Contact with and (suspected) exposure to COVID-19
CPT/HCPCS: 36415; 71101; 71275; 80053; 82248; 82803; 82947; 83690; 84484; 85025; 87502; 87635; 90471; 90686; 93005; 94640; 96365; 96366; 96372; 96375; 96376; 99221; 99285; J0456; J1650; J2920; J2930; Q9967

== ENCOUNTER → 2023-08-15 00:27 | Outpatient (BNV) | payer MEDICARE, MEDICAID, SELFPAY | PROVIDERS: Admitting Provider Student in an Organized Health Care Education/Training Program; Emergency Provider Emergency Medicine Emergency Medical Services; PCP Nurse Practitioner Family; Visit Provider Student in an Organized Health Care Education/Training Program | DX: J44.9 Chronic obstructive pulmonary disease, unspecified (principal) | CPT/HCPCS: 99222; 99239 ==

== ENCOUNTER 2023-08-26 09:23 | Day surgery (SDC) | payer MEDICARE, MEDICAID, SELFPAY ==
--- NOTE | ~2023-08-26 | XR_ITS ---
EXAMINATION: XR CHEST CLINICAL INFORMATION: Status post lung biopsy today COMPARISON: CT biopsy 08/26/2023 and chest radiograph 08/14/2023 TECHNIQUE: Frontal view of the chest was obtained. FINDINGS: Again noted are multiple masses in the right lung along with calcified pleural plaques. The heart and pulmonary vessels appear normal. No pneumothorax is seen. XR/XR chest 1V IMPRESSION: No pneumothorax status post lung biopsy.
--- NOTE | ~2023-08-26 | CT_ITS ---
PROCEDURE: CT GUIDED BIOPSY, LUNG CLINICAL INFORMATION: Multiple masses in the right lung After informed and written consent was obtained an official timeout was performed immediately prior to the procedure. I was personally responsible for the administration of moderate sedation services, all requirements were followed, an independent trained observer was utilized. COMPARISON: Previous CT scan of the chest dated 08/14/2023 TECHNIQUE: This CT examination was performed using dose optimization techniques as appropriate, variously including the following: *Automated exposure control *Adjustment of mA and/or kV according to patient size (this includes techniques or standardized protocols for targeted exams where dose is matched to indication/reason for exam; i.e. extremities or head) *Use of iterative reconstruction technique FINDINGS: In a prone position the skin was prepped and draped in usual fashion. 1% Xylocaine was used for local anesthetic. An 18-gauge Temno core biopsy needle was placed in the mass in the superior aspect of the right lower lobe. 5 core biopsy specimens were obtained. CT/CT biopsy lung RT IMPRESSION: CT-guided biopsy of the pleural-based mass in the superior aspect of the right lower lobe
--- OUTSIDE RECORDS SUMMARY | 2023-08-26 09:28 | XMS_ITS | Continuity of Care Document ---
Author Name Unknown Organization [facility] Address [address] [place] [address]- Care Team Providers Care Adult Protective Caseworker Name Role Phone Cal SUPERVISOR SHUTTLE VENEERING, Luz Simeon Primary Care Physician Encounter [facility] Date(s): 07/19/23 - 08/18/23 [facility] [address] [place] [id number]- Allergies, Adverse Reactions, Alerts Substance Reaction Severity [...] and Recorded Vaccine Date Status Refusal Reason [id number] 12y+ bivalent booster vax 11/17/22 Given [id number] 12y+ bivalent booster vax 10/16/22 Given influenza [...] 12 10/08/06 Given 1Result Comment: [09/24/2017] [facility] [id number] 2Admin Note: VIS 7- 3Admin Note: VIS given 06/23/11, chinese form 4Admin Note: VIS GIVEN 07/08/10 chinese 5Result Comment: [04/02/2016] VIS in Gambian given 6Admin Note: sep 06 7Admin Note: vis given in Gambian 8Admin Note: VIS given in Gambian 9Admin Note: VIS IN [place]IZ[place] 10Admin Note: VIS in chinese 11Admin Note: VIS-GIVEN 12Admin Note: VIS-GIVEN Medications albuterol CFC free 90 mcg/inh inhalation aerosol 1, puffs, Inhalation, 4 times a day, PRN, dx: J45.909, # 1 each, Refills 11, Tot. Refills 11, Maintenance, 03/15/23 9:26:00 EDT, Aerosol, Route to Pharmacy Electronically, [id number], [facility]/pharmacy #[id number], 158.3, cm, 03/15/23 9... Start Date: 03/15/23 Status: Ordered albuterol-ipratropium 3 mg-0.5 mg/3 ml inhalation solution 1 vials, Inhalation, 4 times a day, Dx: COPD J44.9, Asthma J45.998, Lung Cancer C34.00 Sig: use every 6hr as needed for cough, SOB, wheezing, # 100 each, 11 Refills, 10/16/22 16:16:00 EST, [facility]/pharmacy #[id number], 1 vials Inhalation 4 times a day,Instr:Dx... Start Date: 10/16/22 Status: Ordered calcium (as citrate)-vitamin D 315 mg-250 intl units oral tablet 1 tablet, By Mouth, 2 times a day, # 180 tablet, 6 Refills, Maintenance, 07/15/23 19:14:00 EDT, Tablet, [facility]/pharmacy #[id number], Partial fill upon patient request if the prescription is for a schedule II opioid drug., 1 tablet By Mouth 2 times a day, 158.3... Start Date: 07/15/23 Status: Ordered Daily Leslie oral tablet See Instructions, TOME NAZ TABLETA TODOS LOS BENITEZ (NONFORMULARY), # 90 tablet, 1 Refills, Maintenance, 01/27/23 14:13:00 EST, [facility] STORE [id number], 90, TOME NAZ TABLETA TODOS LOS BENITEZ [...] Refills, Maintenance, 01/27/23 14:13:00 EST, [id number], 158.3, cm, 01/07/23 13:42:00 EST, Height Start [...] 06/23/23 10:49:00 EDT, Route to Pharmacy Electronically, [facility]/pharmacy #[id number], Partial fill upon patient request if [...] 0 Refills, Maintenance, 06/24/23 13:26:00 EDT, Tablet, [facility]/pharmacy #[id number], Partial fill upon patient request if [...] Confirmed Active 1positive bronchial challenge 01-07 2x-ray 2014 stable, persistent 82917 x-ray, mild 4repeat 5 years 5Severe emphysema per pulmo note 05/18/13 6per -2011 colonoscopy 7PPD negative 04-26-08 8lung (lateral basal segment of the left lower lobe), per CT 01-18-2009 done at [facility] 9internal and external per 2011 colonoscopy 10urology consult written today 11per CT from [facility], associated with ureteral stone. mild left hydronephrosis 12Repeat stone Oct 2021, seeing urology 13per CT from [facility] , ER was notified 14not starting meds due to polypharmacy and comorbidities 15Followed by Pulm in [place], stability on repeat CT Chest Sep 2020 per their note 16New 10mm nodule LUNG-RADS 4B 09/20/19 17Followed by [place] [facility] 2007 x-ray 2009 x-ray [id number] DEXA: T-score lowest -3.7 21Rash developed 07/06/13 Social History Social History Type Response Smoking Status Former smoker; Other : per pt; entered on: 04/21/18 Sex Male Patient Care team information Care Team Personnel Name: Luz Mccall NP Position: [facility] PCO Associate Professional Member Role: PCP Address: Address: [address] [place] [address] [place] [address]- Care Team Related Persons Name: STEVE LOPEZ Address: home [address] [place] [address] Name: MERLY ROBERSON Address: home [address] [place] [address] Name: MORALES MUELLER JR
[2023-08-26 09:36] VITALS: BMI 16.3
[2023-08-26 10:18] LABS: MANUAL DIFF FLAG NO
[2023-08-26] MEDS: Albuterol Sulfate (0.083%) 2.5 MG/3 ML VIAL.NEB INHALE (10:20)
[2023-08-26 10:21] VITALS: PULSE 76; RESP 18; O2SAT 96
[2023-08-26 10:21] LABS: Basophils Percent Auto 0.3 % (0-2); Eosinophils Absolute Auto 0.3 X10*3/uL (0.0-0.4); Eosinophils Percent Auto 3.1 % (0-4); Hematocrit 30.5 % (42.0-52.0); Hemoglobin 9.1 g/dl (14.0-18.0); Imm Gran Abs Auto 0.05 X10*3/uL (0.00-0.03); Imm Gran Pct Auto 0.5 % (0.0-0.4); Lymphocytes Percent Auto 9.4 % (20-40); Mean Corpuscular HGB Conc 29.8 g/dl (31.0-36.0); Mean Corpuscular Hemoglobin 22.5 pg (27.0-33.0); Mean Corpuscular Volume 75.3 fL (80.0-98.0); Mean Platelet Volume 9.2 fL (9.4-12.4); Monocytes Absolute Auto 0.7 X10*3/uL (0.1-1.2); Monocytes Percent Auto 6.1 % (2-11); Neutrophils Absolute Auto 8.8 x10*3/uL (2.0-8.3); Neutrophils Percent Auto 80.6 % (45-73); Platelet Count 464 X10*3/uL (160-400); Red Blood Count 4.05 X10*6/uL (4.60-5.80); Red Cell Distribution Width 16.6 % (11.0-16.0); White Blood Count 10.9 X10*3/uL (4.8-10.8)
[2023-08-26 10:27] LABS: INTERNATIONAL NORM RATIO 1.1 (0.9-1.1); Prothrombin Time 13.4 SEC (11.1-13.3)
[2023-08-26 10:30] LABS: Partial Thromboplastin Time 33.3 SEC (26.0-36.4)
[2023-08-26 10:41] LABS: Anion Gap 15 (12-20); Blood Urea Nitrogen 8 mg/dL (9-16); Carbon Dioxide 23 mmol/L (22-29); Chloride 105 mmol/L (96-108); Creatinine Clr Calc Pharmacy 53.5; Estimated Glomerular Filt Rate > 60; Sodium 139 mmol/L (135-145)
[2023-08-26 12:15] VITALS: BP 112/54; PULSE 80; RESP 20; TEMP 36.6; O2SAT 94
[2023-08-26 12:45] VITALS: BP 116/55; PULSE 75; RESP 18; O2SAT 96
[2023-08-26 13:06] VITALS: BP 112/56; PULSE 80; RESP 18; TEMP 36.8; O2SAT 98
== END 2023-08-26 13:48 | disposition home or self-care (01) ==
PROVIDERS: Radiology Diagnostic Radiology; Radiology Vascular & Interventional Radiology; PCP Nurse Practitioner Family; Visit Provider Internal Medicine Medical Oncology
DX: C34.31 Malignant neoplasm of lower lobe, right bronchus or lung (principal); J44.0 Chronic obstructive pulmonary disease with (acute) lower respiratory infection; J20.8 Acute bronchitis due to other specified organisms; J96.10 Chronic respiratory failure, unspecified whether with hypoxia or hypercapnia; R07.89 Other chest pain; Z99.81 Dependence on supplemental oxygen; E03.9 Hypothyroidism, unspecified; E11.9 Type 2 diabetes mellitus without complications; F39 Unspecified mood [affective] disorder; I10 Essential (primary) hypertension; K21.9 Gastro-esophageal reflux disease without esophagitis; M81.0 Age-related osteoporosis without current pathological fracture; Z79.84 Long term (current) use of oral hypoglycemic drugs; Z79.51 Long term (current) use of inhaled steroids; Z79.52 Long term (current) use of systemic steroids; Z79.899 Other long term (current) drug therapy; Z88.8 Allergy status to other drugs, medicaments and biological substances; F17.210 Nicotine dependence, cigarettes, uncomplicated; Z87.442 Personal history of urinary calculi
CPT/HCPCS: 32408; 36415; 71045; 80051; 82565; 84520; 85025; 85610; 85730; 88305; 88333; 88341; 88342; 94640; 99152; J2250; J3010

== ENCOUNTER → 2023-08-26 10:35 | Outpatient (BNV) | payer MEDICARE, MEDICAID, SELFPAY | PROVIDERS: Visit Provider Radiology Vascular & Interventional Radiology | DX: C34.90 Malignant neoplasm of unspecified part of unspecified bronchus or lung (principal) | CPT/HCPCS: 32408 ==

== ENCOUNTER 2023-09-12 17:53 | Inpatient (IN) | payer MEDICARE, MEDICAID, SELFPAY ==
--- NOTE | ~2023-09-12 | XR_ITS ---
EXAMINATION: XR CHEST CLINICAL INFORMATION: Shortness of breath. Question pneumonia. COMPARISON: 08/26/2023. TECHNIQUE: Portable AP view of the chest was obtained. XR/XR chest 1V FINDINGS/IMPRESSION: There has been no significant radiographic change compared with chest x-ray from 08/26/2023. Multiple bilateral renal masses are again seen. No new infiltrate, effusion, pneumothorax is appreciated. Pleural calcification on the right appears similar. The heart appears normal in size. The aorta is atherosclerotic and uncoiled, suggesting hypertension.
[2023-09-12 17:59] VITALS: BP 92/68; PULSE 136; RESP 24; TEMP 36.9; O2SAT 92; BMI 18.1
--- NOTE | 2023-09-12 18:09 | ED_ITS ---
HPI - Pediatric SOB/Dyspnea General Chief Complaint: Dyspnea Stated Complaint: Asthma Time Seen by Provider: 09/12/23 18:38 Source: patient and old records reviewed Mode of arrival: EMS Limitations: no limitations History of Present Illness HPI Narrative: 77 yo male with severe COPD, known lung CA that he has refused treatment for now with 1 day of cough, mucous production and not feeling well he notes pain on R side with cough as well. MD complaint: cough Onset (ago): day(s) (1) Pain Consistency: intermittent Fever: No Severity: moderate Context: asthma Associated symptoms: cough and sputum production Relieving factors: nothing Exacerbating factors: exertion Related Data Home Medications Medication Instructions Recorded Confirmed omeprazole 20 mg capsule,delayed 20 mg PO DAILY@0630 12/01/20 09/13/23 release multivitamin with folic acid 400 1 tab PO DAILY 08/28/22 09/13/23 mcg tablet (Daily-Leslie (with folic acid)) levothyroxine 88 mcg tablet 88 mcg PO DAILY@0600 06/17/23 09/13/23 acetaminophen 325 mg tablet 650 mg PO Q6H PRN Pain 06/18/23 09/13/23 (Tylenol) topiramate 50 mg tablet 50 mg PO DAILY 06/18/23 09/13/23 ipratropium 0.5 mg-albuterol 3 mg 3 ml inhalation QID PRN wheezing 07/02/23 09/13/23 (2.5 mg base)/3 mL nebulization soln topiramate 50 mg tablet 100 mg PO BEDTIME 07/02/23 09/13/23 prednisone 20 mg tablet 20 mg PO DAILY 08/12/23 09/13/23 ibandronate 150 mg tablet 150 mg PO QMONTH 08/15/23 08/31/23 testosterone cypionate 200 mg/mL 100 mg IM Q2W 08/15/23 09/13/23 intramuscular oil cholecalciferol (vitamin D3) 25 50 mcg PO DAILY 09/13/23 09/13/23 mcg (1,000 unit) tablet duloxetine 30 mg capsule,delayed 30 mg PO DAILY 09/13/23 09/13/23 release fluticasone fur. 200 mcg-umeclid 1 inh inhalation DAILY 09/13/23 09/13/23 62.5 mcg-vilant 25 mcg inhalat.powder (Trelegy Ellipta) metformin 500 mg tablet 500 mg PO DAILY 09/13/23 09/13/23 mirtazapine 7.5 mg tablet 7.5 mg PO BEDTIME 09/13/23 09/13/23 nabumetone 500 mg tablet 500 mg PO BID PRN Pain 09/13/23 09/13/23 pyridoxine (vitamin B6) 50 mg 50 mg PO DAILY 09/13/23 09/13/23 tablet tramadol 50 mg tablet 50 mg PO Q6H PRN Pain 09/13/23 09/13/23 Previous Rx's Medication Instructions Recorded albuterol sulfate 90 mcg/actuation 2 inh inhalation Q4-6H PRN 12/01/22 breath activated powder inhaler shortness of breath or wheezing #1 ea theophylline 400 mg 400 mg PO DAILY #30 tabs 04/02/23 tablet,extended release 24 hr Allergies Allergy/AdvReac Type Severity Reaction Status Date / Time pollen extracts [POLLEN] Allergy Intermediate RUNNING Verified 08/31/23 11:05 NOSE, WATERY EYES, SNEEZING varenicline [VARENICLINE] AdvReac Unknown PALPITATION Verified 08/31/23 11:05 S Pediatric Review of Systems 2 Review of Systems: Constitutional : No Fever, No Chills ENT/Mouth : No Hoarseness, No sore throat, No Rhinorrhea Eyes: No Redness, No Discharge, No Vision Changes Cardiovascular : No Chest Pain, positive SOB, positive Dyspnea on Exertion, No Edema Respiratory : positive Cough, pos Sputum, positive Wheezing, Gastrointestinal : No Nausea, No Vomiting, No Diarrhea, No abdominal Pain Genitourinary : No Dysuria, No Hematuria Musculoskeletal : No joint pain, No Myalgias Skin : No rash Neuro : No Weakness, No Numbness, No Headache Psych : No anxiety, depression Heme/Lymph: No Bruising, No Bleeding Endocrine : No Polyuria, No Polydipsia All other systems reviewed and are negative PMFSH Past Medical History Attestation statement: The following information was validated with the patient. Source: old records reviewed Medical History Acute exacerbation of chronic obstructive pulmonary disease Abnormal PET scan of colon Tobacco dependence Chronic respiratory failure Sepsis Osteoporosis COPD (chronic obstructive pulmonary disease) Ureteral calculi Hypertension Hypothyroidism GERD (gastroesophageal reflux disease) Osteoarthritis Oxygen dependent Diabetes Asthma Surgical History History of lithotripsy (~2008) History of cataract surgery (~2011) History of lung biopsy (~2021) History of appendectomy Family History Family History Father Throat cancer Brother Lung cancer Other Hypertension Social History Social History Household Members: Spouse Household Members Other:: 1 Housing: Apartment Are you a primary customer care specialist to a significant other at home: No Do you presently have visiting nurse or other home services: No Alcohol intake: never Patient Tobacco Use Status: Current everyday Tobacco user Tobacco use type: Cigarette Cigarette Packs Per Day: 0.5 Cigarettes Per Day: 10.0 Years Smoked: 62 e-Cigarette/Vaping Use: Currently Using Second Hand Smoke Exposure: No Advance Directives Date on File: 12/18/20 service: No Current occupational status: unemployed and retired Pediatric Exam 2 Narrative: Physical exam: Appearance: Alert. Oriented X3. No acute distress. Eyes: Pupils equal, round and reactive to light. ENT: Pharynx normal. Neck: Normal inspection. Neck supple. CVS: tachycardic heart rate and rhythm. Pulses normal. Respiratory: No respiratory distress. Breath sounds diminished throughout Abdomen: Soft and nontender. Skin: Skin warm and dry. pale skin color. Normal skin turgor. Extremities: No lower extremity edema. No calf ttp Neuro: Oriented X 3. No motor deficit. No sensory deficit. General: Limitations: no limitations Course Course Course Narrative: RME: 77 yold male with pmh of lung CA and COPD presents to the ED for SOB, asthma, chills, and right sided lung pain. Breathing pursed lips. mild wheezing. Charge nurse Olga made aware and will be bring patient to the room. labs, EkG ordered Reevaluation(s) Reevaluation #1: added on ceftriaxone at this time possible infection suspected 742pm Medications Administered Generic Name Dose Route Start Last Admin Trade Name Freq PRN Reason Stop Dose Admin Albuterol/Ipratropium 3 ml 09/13/23 08:00 09/13/23 07:28 Albuterol/Iprat 2.5/0.5mg 3 Ml Ampul.Neb INHALE 3 ml RQ4H WHILE AWAKE MEHDI Administration Enoxaparin Sodium 40 mg 09/12/23 20:30 09/12/23 21:45 Enoxaparin Sodium 40 Mg/0.4 Ml Syringe SUBCUT 40 mg Q24H MEHDI Administration Azithromycin 500 mg/ Sodium 250 mls @ 125 mls/hr 09/12/23 21:45 09/13/23 01:02 Chloride IV Infused Q24H MEHDI Infusion Insulin Human Lispro 0 unit 09/12/23 21:00 09/13/23 07:23 Insulin Lispro 100 Unit/Ml 3 Ml Vial SUBCUT 4 unit QIDACHS MEHDI Administration Protocol Morphine Sulfate 1 mg 09/13/23 01:30 09/13/23 10:15 Morphine Sulfate 2 Mg/Ml Cartridge IVPUSH 1 mg Q4H PRN Administration Pain, Severe (Pain Scale 7-10) Protocol Nicotine 14 mg 09/13/23 09:00 09/13/23 07:23 Nicotine 14 Mg Patch.Td24 TRANSDERMA 14 mg DAILY MEHDI Administration Sodium Chloride 3 ml 09/13/23 00:00 09/13/23 07:23 0.9 % Sodium Chloride Flush 3 Ml Syringe IVFLUSH 3 ml QSHIFT MEHDI Administration Discontinued Medications Generic Name Dose Route Start Last Admin Trade Name Freq PRN Reason Stop Dose Admin Albuterol Sulfate 7.5 mg/ 10 mg 09/12/23 18:22 09/12/23 18:23 Albuterol Sulfate 2.5 mg INHALE 09/12/23 18:23 10 mg ONCE ONE Administration Magnesium Sulfate 2 gm in 50 mls @ 25 mls/hr 09/12/23 18:05 09/12/23 20:51 Magnesium Sulfate/H2o IV 09/12/23 20:04 Infused ONCE ONE Infusion Ceftriaxone Sodium 1 gm/ 50 mls @ 100 mls/hr 09/12/23 19:41 09/12/23 20:36 Sodium Chloride IV 09/12/23 20:10 Infused ONCE ONE Infusion Levalbuterol HCl 2.5 mg 09/12/23 20:03 09/12/23 20:07 Levalbuterol Hcl 1.25 Mg/3 Ml Vial.Neb INHALE 09/12/23 20:04 2.5 mg ONCE ONE Administration Methylprednisolone Sodium Succinate 125 mg 09/12/23 18:05 09/12/23 18:51 Methylprednisolone Sod Succ 125 Mg/2 Ml Vial IVPUSH 09/12/23 18:06 125 mg ONCE ONE Administration Methylprednisolone Sodium Succinate 40 mg 09/12/23 20:30 09/13/23 07:23 Methylprednisolone Sod Succ 40 Mg/Ml Vial IVPUSH 40 mg Q12H MEHDI Administration Oxycodone HCl 5 mg 09/12/23 19:01 09/12/23 19:17 Oxycodone Hcl Immed Release 5 Mg Tablet PO 09/12/23 19:02 5 mg ONCE ONE Administration Medical Decision Making Medical Decision Making MDM Narrative: 77 yo male with severe COPD, known lung CA that he has refused treatment for now here with c/o cough, sputum production and wheezing not responding to home treatments - nebs, steroids, IV magnesium labs and viral panel ordered - hx of multiple admissions for same. will monitor improvement and symptoms. Has rib pain hx of same in past with cough. Differential Diagnosis Differential Diagnoses: The differential diagnosis associated with the presentation includes asthma, reactive airway disease Admission/Observation Consideration of admission/observation: Escalation of care including admission/observation considered admit for further management 89%, work of breathing Consult Healthcare Provider Management of the patient was discussed with: Hospitalist (agrees to admit) Lab Data [facility] Lab Attestation statement: I reviewed the patient's lab results. 09/13/23 04:32 09/13/23 04:32 Labs: Lab Results 09/12/23 09/12/23 09/12/23 Range/Units 18:20 18:22 18:26 WBC 18.1 H (4.8-10.8) X10*3/uL RBC 4.81 (4.60-5.80) X10*6/uL Hgb 10.7 L (14.0-18.0) g/dl Hct 36.2 L (42.0-52.0) % MCV 75.3 L (80.0-98.0) fL MCH 22.2 L (27.0-33.0) pg MCHC 29.6 L (31.0-36.0) g/dl RDW 16.7 H (11.0-16.0) % Plt Count 647 H D (160-400) X10*3/uL MPV 9.0 L (9.4-12.4) fL Immature Gran % (Auto) 0.6 H (0.0-0.4) % Neut % (Auto) 85.8 H (45-73) % Lymph % (Auto) 6.9 L (20-40) % [place] % (Auto) 5.6 (2-11) % Eos % (Auto) 0.8 (0-4) % Baso % (Auto) 0.3 (0-2) % Lymph # (Auto) 1.3 (1.2-4.9) X10*3/uL [place] # (Auto) 1.0 (0.1-1.2) X10*3/uL Eos # (Auto) 0.1 (0.0-0.4) X10*3/uL Baso # (Auto) 0.1 (0.0-0.2) X10*3/uL Abs Immat Gran (auto) 0.11 H (0.00-0.03) X10*3/uL Absolute Neuts (auto) 15.5 H (2.0-8.3) x10*3/uL Absolute Nucleated RBC 0.000 (0.0-0.012) X10*3/uL Nucleated RBC % (auto) 0.0 (0.0-0.2) /100WBC PT 13.4 H (11.1-13.3) SEC INR 1.1 (0.9-1.1) APTT 34.7 (26.0-36.4) SEC VBG pH 7.49 H (7.32-7.43) VBG pCO2 33 mmHg VBG pO2 47 mmHg VBG HCO3 25 (22-26) mmol/L VBG O2 Saturation 70.0 % VBG Base Excess 3.1 mmol/L Sodium 137 (135-145) mmol/L Potassium 4.2 (3.3-5.1) mmol/L Chloride 101 (96-108) mmol/L Carbon Dioxide 23 (22-29) mmol/L Anion Gap 17 (12-20) BUN 6 L (9-16) mg/dL Creatinine 0.84 (0.5-1.4) mg/dL Estim Creat Clear Calc 53.1 Estimated GFR > 60 Random Glucose 136 H (60-115) mg/dL Lactic Acid 1.7 (0.5-2.0) mmol/L Calcium 9.5 D (8.4-10.2) mg/dL Total Bilirubin 0.5 (0.0-1.0) mg/dL AST 22 (5-37) U/L ALT 7 (0-40) U/L Alkaline Phosphatase 117 (39-117) U/L Troponin I High Sens 5.5 D (<3.5-35.0) ng/L B-Natriuretic Peptide 38 (<100) pg/mL Total Protein 7.3 (6.5-8.0) g/dL Albumin 3.6 (3.5-5.0) g/dL Influenza Type A (PCR) NEGATIVE (Negative) Influenza Type B (PCR) NEGATIVE (Negative) RSV RNA Qual (PCR) NEGATIVE (Negative) SARS-CoV-2 RNA (RT-PCR) NEGATIVE (Negative) Independent Interpretation I performed an independent interpretation of an: EKG and Plain X-Ray (no pneumonia) Interpretation: Rate: 125 Rhythm: sinus tachycardia [place]: normal Normal P waves. Normal JOHAN. Normal QRS complex. ST T wave : normal no MARIA DEL ROSARIO qTC: normal prior studies: no change from priors The study has been interpreted contemporaneously by me. . Radiology Impression Discussion of test interpretation with radiology: I have reviewed the radiologist's reading. External Record Review External record reviewed: Inpatient record Critical Care Time Critical Care Time Critical Care Time: Yes Total Critical Care Time: 35 Attestation: repeat nebs ordered, IV steroids, IV magnesium I attest to this time spent taking care of the patient Discharge Plan Discharge Clinical Impression: Asthma with exacerbation Qualifiers: Asthma severity: severe Asthma persistence: persistent Qualified Code(s): J 45.51 - Severe persistent asthma with (acute) exacerbation Patient Disposition: Admitted As Inpatient Interventions: Admission Worksheet (ED) Last Done: 09/13/23 09:45 Discharge Date/Time: 09/13/23 09:45
[2023-09-12 18:23] VITALS: PULSE 122; RESP 30; O2SAT 84
[2023-09-12] MEDS: Albuterol Sulfate 7.5 MG, Albuterol Sulfate (0.083%) 2.5 MG 10 MG INHALE (18:23)
[2023-09-12 18:29] LABS: MANUAL DIFF FLAG NO
[2023-09-12 18:30] LABS: Venous Blood Gas Refer to POC result
[2023-09-12 18:32] LABS: VBG Base Excess 3.1 mmol/L; VBG HCO3 25 mmol/L (22-26); VBG pCO2 33 mmHg; VBG pH 7.49 (7.32-7.43); VBG pO2 47 mmHg
[2023-09-12 18:33] LABS: Basophils Absolute Auto 0.1 X10*3/uL (0.0-0.2); Basophils Percent Auto 0.3 % (0-2); Eosinophils Absolute Auto 0.1 X10*3/uL (0.0-0.4); Eosinophils Percent Auto 0.8 % (0-4); Hematocrit 36.2 % (42.0-52.0); Hemoglobin 10.7 g/dl (14.0-18.0); Imm Gran Abs Auto 0.11 X10*3/uL (0.00-0.03); Imm Gran Pct Auto 0.6 % (0.0-0.4); Lymphocytes Absolute Auto 1.3 X10*3/uL (1.2-4.9); Lymphocytes Percent Auto 6.9 % (20-40); Mean Corpuscular HGB Conc 29.6 g/dl (31.0-36.0); Mean Corpuscular Hemoglobin 22.2 pg (27.0-33.0); Mean Corpuscular Volume 75.3 fL (80.0-98.0); Monocytes Percent Auto 5.6 % (2-11); Neutrophils Absolute Auto 15.5 x10*3/uL (2.0-8.3); Neutrophils Percent Auto 85.8 % (45-73); Platelet Count 647 X10*3/uL (160-400); Red Blood Count 4.81 X10*6/uL (4.60-5.80); Red Cell Distribution Width 16.7 % (11.0-16.0); White Blood Count 18.1 X10*3/uL (4.8-10.8)
[2023-09-12 18:39] LABS: INTERNATIONAL NORM RATIO 1.1 (0.9-1.1); Prothrombin Time 13.4 SEC (11.1-13.3)
[2023-09-12 18:41] LABS: Partial Thromboplastin Time 34.7 SEC (26.0-36.4)
[2023-09-12 18:43] LABS: Lactic Acid 1.7 mmol/L (0.5-2.0)
--- OUTSIDE RECORDS SUMMARY | 2023-09-12 18:44 | XMS_ITS | Continuity of Care Document ---
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 Name Role Phone Kayla Chaney MD Primary Care Physician [phone] Encounter [facility] Date(s): 07/05/23 - 09/11/23 [facility] [address] [place] [id number]- Attending Physician: Not on Staff, Attending MD [...] and Recorded Vaccine Date Status Refusal Reason [id number] 12y+ bivalent booster vax 11/17/22 Given [id number] 12y+ bivalent booster vax 10/16/22 Given influenza [...] (oldterm) 12 10/08/06 Given 1Result Comment: [09/24/2017] [facility] [place] [id number] 2Admin Note: VIS 7- 3Admin Note: VIS given 06/23/11, cambodian form 4Admin Note: VIS GIVEN 07/08/10 cambodian 5Result Comment: [04/02/2016] VIS in Luxembour[place] given 6Admin Note: sep 06 7Admin Note: vis given in [place] 8Admin Note: VIS given in [place] 9Admin Note: VIS IN [place]AG[place] 10Admin Note: VIS in cambodian 11Admin Note: VIS-GIVEN 12Admin Note: VIS-GIVEN Medications albuterol CFC free 90 mcg/inh inhalation aerosol 1, puffs, Inhalation, 4 times a day, PRN, dx: J45.909, # 1 each, Refills 11, Tot. Refills 11, Maintenance, 03/15/23 9:26:00 EDT, Aerosol, Route to Pharmacy Electronically, [id number], [facility]/pharmacy #[id number], 158.3, cm, 03/15/23 9... [...] See Instructions, TOME NAZ TABLETA TODOS LOS BENITEZ, # 90 tablet, 1 Refills, Maintenance, 08/30/23 11:40:00 EDT, [id number], 90, TOME NAZ TABLETA TODOS LOS BENITEZ, 158.3, cm, 08/09/23 11:09:00 EDT, Height Start Date: 08/30/23 Status: Ordered diclofenac 1% topical gel 1 [...] BENITEZ CON LAS COMIDAS, # 90 tablet, 0 Refills, Maintenance, 08/30/23 11:40:00 EDT, [id number], 158.3, cm, 08/09/23 11:09:00 EDT, Height Start Date: 08/30/23 Status: Ordered mirtazapine 7.5 mg oral tablet [...] tablet, 1 Refills, Maintenance, 06/23/23 8:44:00 EDT, [facility]/pharmacy #[id number], 158.3, cm, 05/19/23 14:14:00 EDT, Height Start Date: 06/23/23 Status: Ordered omeprazole 20 mg oral enteric coated capsule See Instructions, TOME NAZ CAPSULA TODOS HUSSEIN BENITEZ, # 90 capsule, 3 Refills, Maintenance, 06/24/23 13:25:00 EDT, [facility]/pharmacy #[id number], 158.3, cm, 05/19/23 14:14:00 EDT, Height Start Date: 06/24/23 Status: Ordered oxyCODONE 5 mg oral tablet 5 mg, 1, tablet, By Mouth, 2 times a day, # 56 tablet, Refills 0, Tot. Refills 0, Maintenance, 06/23/23 10:49:00 EDT, Route to Pharmacy Electronically, [facility]/pharmacy #[id number], Partial fill upon patient [...] mL, 5 Refills, Maintenance, 07/15/23 19:17:00 EDT, [facility]/pharmacy #[id number], 158.3, cm, 07/15/23 13:19:00 EDT, Height [...] 0 Refills, Maintenance, 06/24/23 13:26:00 EDT, Tablet, [facility]/pharmacy #[id number], Partial fill upon patient [...] bronchial challenge 01-07 2x-ray 2013 stable, persistent [id number] x-ray, mild 4repeat 5 years 5Severe emphysema per pulmo note 05/18/13 6per colonoscopy 7PPD negative 04-26-08 8lung (lateral basal segment of the left lower lobe), per CT 01-18-2009 done at [facility] 9internal and external per 2011 colonoscopy 10urology consult written today 11per CT from [facility], associated with ureteral stone. mild left hydronephrosis 12Repeat stone Oct 2021, seeing urology 13per CT from [facility] , ER was notified 14not starting meds due to polypharmacy and comorbidities 15Followed by Pulm in [place], stability on repeat CT Chest Sep 2020 per their note 16New 10mm nodule LUNG-RADS 4B 09/20/19 17Followed by [place] [facility] 18on 2007 x-ray 2009 x-ray [id number] DEXA: T-score lowest -3.7 21Rash developed 07/06/13 Social History Social History Type Response Smoking Status Former smoker; Other : per pt; entered on: 04/21/18 Sex Male Patient Care team information Care Team Personnel Name: Kayla Chaney MD Position: [facility] Physician - Primary Care Member Role: PCP Address: Address: [address] [place] [id number]- Care Team Related Persons Name: STEVE LOPEZ Address: home [address] [place] [address] Name: MERLY ROBERSON Address: home [address] [place] [address] Name: MORALES MUELLER JR
[2023-09-12 18:47] LABS: Alanine Aminotransferase 7 U/L (0-40); Albumin Level 3.6 g/dL (3.5-5.0); Alkaline Phosphatase 117 U/L (39-117); Anion Gap 17 (12-20); Aspartate Amino Transferase 22 U/L (5-37); Bilirubin Total 0.5 mg/dL (0.0-1.0); Blood Urea Nitrogen 6 mg/dL (9-16); Calcium 9.5 mg/dL (8.4-10.2); Carbon Dioxide 23 mmol/L (22-29); Chloride 101 mmol/L (96-108); Creatinine Clr Calc Pharmacy 53.1; Estimated Glomerular Filt Rate > 60; Glucose Random 136 mg/dL (60-115); Potassium 4.2 mmol/L (3.3-5.1); Sodium 137 mmol/L (135-145); Total Protein 7.3 g/dL (6.5-8.0)
[2023-09-12] MEDS: Magnesium Sulfate/H2O 2 GM/50 ML PIGGYBACK IV (18:51)
[2023-09-12] MEDS: methylPREDNISolone Sod Succ 125 MG/2 ML VIAL IVPUSH (18:51)
[2023-09-12 18:53] LABS: B Type Natriuretic Peptide 38 pg/mL (<100)
[2023-09-12 18:54] LABS: Troponin-I High Sensitivity 5.5 ng/L (<3.5-35.0)
--- NOTE | 2023-09-12 18:55 | PC.NURSE ---
medication administered per provider order. provider bedside at this time assessing pt. pt c/o 10/10 right rib pain. provider aware. repositioned to comfort. call grimes placed within reach.
[2023-09-12 19:10] LABS: Influenza A PCR NEGATIVE (Negative); Influenza B PCR NEGATIVE (Negative); Resp Syncy Virus RNA Qual PCR NEGATIVE (Negative); SARS COV2 PCR INHOUSE NEGATIVE (Negative)
[2023-09-12] MEDS: oxyCODONE HCl Immed Release 5 MG TABLET PO (19:17)
--- NOTE | 2023-09-12 19:18 | PC.NURSE ---
medication administered per provider order. will reassess pain level shortly.
[2023-09-12 19:19] VITALS: BP 118/51; PULSE 130; RESP 24; TEMP 37.2; O2SAT 89
--- NOTE | 2023-09-12 19:43 | ECG_ITS ---
Test Reason : SOB Blood Pressure : / mmHG Vent. Rate : 125 BPM Atrial Rate : 125 BPM P-R Int : 126 ms QRS Dur : 074 ms QT Int : 306 ms P-R-T Axes : 083 072 071 degrees QTc Int : 441 ms Sinus tachycardia with Premature supraventricular complexes Nonspecific ST abnormality Abnormal ECG When compared with ECG of 14-AUG-2023 16:56, Heart rate has increased Referred By: Colette Peralta Electronically Signed By:EMILEE DO MD
[2023-09-12 20:02] VITALS: BP 108/48; PULSE 127; RESP 22; O2SAT 93
[2023-09-12] MEDS: cefTRIAXone sodium 1 GM in 0.9 % Sodium Chloride 50 ML IV (20:03)
[2023-09-12] MEDS: levalbuterol HCL 1.25 MG/3 ML VIAL.NEB 2.5 MG INHALE (20:07)
--- NOTE | 2023-09-12 20:08 | PC.NURSE ---
pt currently receiving nebulizer treatment at this time.
[2023-09-12 20:09] VITALS: PULSE 117; RESP 24; O2SAT 92
--- NOTE | 2023-09-12 20:28 | P.HPHOSP_ITS ---
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 Patient states he has been having wheezing, dyspnea worse with exertion and nonproductive cough that started 1 day prior to presentation.? It is progressive and worse with ambulation.? He continues to smoke tobacco.? Patient has refused therapy for lung cancer.? He denies fever, chills, chest discomfort, palpitations, abdominal pain, changes in urinary or bowel habits. Has pleuritic chest discomfort. In the emergency department, patient with dyspnea and tachypnea despite multiple DuoNeb treatments. Review of Systems 2 Constitutional: Constitutional: Reports fatigue and Reports lethargy Cardiovascular: Cardiovascular: Reports no additional cardiovascular complaints Respiratory: Respiratory: Reports cough and Reports wheezing Gastrointestinal: Gastrointestinal: Reports no additional gastrointestinal complaints Genitourinary: Genitourinary: Reports no additional male genitourinary complaints Endocrine: Endocrine: Reports fatigue Allergic/Immunologic: Allergic/Immunologic: Reports wheezing [facility] Medical History Acute exacerbation of chronic obstructive pulmonary disease Abnormal PET scan of colon Tobacco dependence Chronic respiratory failure Sepsis Osteoporosis COPD (chronic obstructive pulmonary disease) Ureteral calculi Hypertension Hypothyroidism GERD (gastroesophageal reflux disease) Osteoarthritis Oxygen dependent Diabetes Asthma Family History Father Throat cancer Brother Lung cancer Other Hypertension Surgical History History of lithotripsy (~2008) History of cataract surgery (~2011) History of lung biopsy (~2021) History of appendectomy Social History Household Members: Family Household Members Other:: 1 Housing: Apartment Are you a primary neonatal intensive care unit nurse to a significant other at home: No Do you presently have visiting nurse or other home services: No Alcohol intake: never Patient Tobacco Use Status: Current everyday Tobacco user Tobacco use type: Cigarette Cigarette Packs Per Day: 0.5 Cigarettes Per Day: 8 Years Smoked: 62 Smoked in Last 30 Days: Yes e-Cigarette/Vaping Use: Currently Using Second Hand Smoke Exposure: No Use of substances other than those prescribed or required for medical reasons: No Advance Directives: No Advance Directives Date on File: 12/18/20 service: No Current occupational status: unemployed and retired Meds Allergies Allergy/AdvReac Type Severity Reaction Status Date / Time pollen extracts [POLLEN] Allergy Intermediate RUNNING Verified 08/31/23 11:05 NOSE, WATERY EYES, SNEEZING varenicline [VARENICLINE] AdvReac Unknown PALPITATION Verified 08/31/23 11:05 S Active Medications: Current Medications Dextrose (Dextrose 50 % 25 Gm/50 Ml Syringe) 25 gm IVPUSH Q15M PRN; Protocol PRN Reason: per Hypoglycemia Standing Ord. Glucose (Glucose Gel 15 Gm Gel..Gram.) 15 gm PO Q15M PRN; Protocol PRN Reason: per Hypoglycemia Standing Ord. Insulin Human Lispro (Insulin Lispro 100 Unit/Ml 3 Ml Vial) 0 unit SUBCUT [facility]; Protocol Home Medications Medication Instructions Recorded Confirmed Last Taken Type metformin 500 mg tablet 500 mg PO DAILY 09/28/20 08/31/23 06/17/23 09:00 History omeprazole 20 mg capsule,delayed 20 mg PO DAILY@0612/01/20 08/31/23 06/17/23 06:30 History release nabumetone 500 mg tablet 1 tab PO BID PRN knee pain 01/29/22 08/31/23 08/28/22 History fluticasone fur. 200 mcg-umeclid 1 puff inhalation DAILY 08/28/22 08/31/23 06/17/23 09:00 History 62.5 mcg-vilant 25 mcg inhalat.powder (Trelegy Ellipta) multivitamin with folic acid 400 1 tab PO DAILY 08/28/22 08/31/23 06/17/23 09:00 History mcg tablet (Daily-Leslie (with folic acid)) levothyroxine 88 mcg tablet 88 mcg PO DAILY@0600 06/17/23 08/31/23 06/17/23 06:00 History acetaminophen 325 mg tablet 650 mg PO Q6H PRN Pain 06/18/23 08/31/23 Unknown History (Tylenol) cholecalciferol (vitamin D3) 25 25 mcg PO DAILY 06/18/23 08/31/23 06/17/23 09:00 History mcg (1,000 unit) tablet topiramate 50 mg tablet 50 mg PO DAILY 06/18/23 08/31/23 06/17/23 09:00 History mirtazapine 7.5 mg tablet 7.5 mg PO BEDTIME 06/29/23 08/31/23 Unknown History ipratropium 0.5 mg-albuterol 3 mg 3 ml inhalation QID PRN wheezing 07/02/23 08/31/23 Unknown History (2.5 mg base)/3 mL nebulization soln topiramate 50 mg tablet 100 mg PO BEDTIME 07/02/23 08/31/23 Unknown History prednisone 20 mg tablet 20 mg PO DAILY 08/12/23 08/31/23 Unknown History duloxetine 30 mg capsule,delayed 30 mg PO DAILY 08/15/23 08/31/23 Unknown History release ibandronate 150 mg tablet 150 mg PO QMONTH 08/15/23 08/31/23 08/07/23 History testosterone cypionate 200 mg/mL 100 mg IM Q2W 08/15/23 08/31/23 08/10/23 History intramuscular oil Physical Exam 2 Vital Signs and Narrative: Vital Signs: Last Vital Signs Temp 98.9 F 09/12/23 19:19 Pulse 117 H 09/12/23 20:09 Resp 24 H 09/12/23 20:09 BP 108/48 L 09/12/23 20:02 Pulse Ox 93 09/12/23 20:02 O2 Del Method Room Air 09/12/23 20:02 BMI result Body Mass Index 18.1 Middle-aged male lying in bed in mild distress Neck supple, no JVD Regular rate and rhythm, S1-S2 heard Bilateral wheezing without crackles Abdomen soft nontender, no guarding, no rigidity Patient is awake, alert and oriented to self, place, time and person ; no focal motor deficit Psych: Normal mood No pedal edema Results Labs 09/12/23 18:20 09/12/23 18:20 Labs: Laboratory Results - last 24 hr 09/12/23 09/12/23 09/12/23 18:20 18:22 18:26 MCV 75.3 L MCH 22.2 L MCHC 29.6 L RDW 16.7 H Plt Count 647 H D MPV 9.0 L Immature Gran % (Auto) 0.6 H Neut % (Auto) 85.8 H Lymph % (Auto) 6.9 L Barber % (Auto) 5.6 Eos % (Auto) 0.8 Baso % (Auto) 0.3 Lymph # (Auto) 1.3 Barber # (Auto) 1.0 Eos # (Auto) 0.1 Baso # (Auto) 0.1 Abs Immat Gran (auto) 0.11 H Absolute Neuts (auto) 15.5 H Absolute Nucleated RBC 0.000 Nucleated RBC % (auto) 0.0 PT 13.4 H INR 1.1 APTT 34.7 VBG pH 7.49 H VBG pCO2 33 VBG pO2 47 VBG HCO3 25 VBG O2 Saturation 70.0 VBG Base Excess 3.1 Anion Gap 17 Estim Creat Clear Calc 53.1 Estimated GFR > 60 Random Glucose 136 H Lactic Acid 1.7 Calcium 9.5 D Total Bilirubin 0.5 AST 22 ALT 7 Alkaline Phosphatase 117 B-Natriuretic Peptide 38 Total Protein 7.3 Albumin 3.6 Influenza Type A (PCR) NEGATIVE Influenza Type B (PCR) NEGATIVE RSV RNA Qual (PCR) NEGATIVE SARS-CoV-2 RNA (RT-PCR) NEGATIVE Assessment and Plan (1) Asthma with exacerbation: Qualifiers: Asthma persistence: persistent Asthma severity: severe Qualified Code(s): J45.51 - Severe persistent asthma with (acute) exacerbation Status: Acute Plan This is a 77-year-old male with pertinent history of asthma as/COPD overlap syndrome not on home oxygen, hypothyroidism, mood disorder, ezl-abavgrv-sedtejgxl diabetes mellitus, history of lung cancer, tobacco use disorder presents to the emergency department for evaluation of dyspnea. #.? Acute respiratory distress due to acute exacerbation of asthma/COPD.? Will admit patient and initiate systemic steroids.? Scheduled and p.r.n. DuoNebs.? Continue home inhaler.? Initiating azithromycin for pleiotropic effect #. Reactive leukocytosis: in the setting of above #.? Usb-lhiswvo-rltjepjdu diabetes mellitus.? Initiating Accu-Cheks with sliding scale insulin in the setting of steroid use #.? Hypothyroidism.? On Synthroid #.? Mood disorder.? Continue home mood stabilizers #.? Chronic Microcytic anemia.? On iron supplementation #.? Lung cancer: Pt not a surgical candidate and has refused radiation treatment #.? Tobacoo use disorder: Ordering nicotine patch. Recommended cessation Med rec pending DVT prophylaxis:? Lovenox Full code Regular diet Time Spent With Patient Time: Total time managing care of this patient today ____ minutes. Quality Stroke Does the patient have a stroke diagnosis?: No VTE Prior VTE?: No VTE Risk Level:: Medical - moderate - high VTE Device Contraindication: Treatment Not Indicated VTE Drug Contraindication: N/A - Med Ordered
[2023-09-12] MEDS: Enoxaparin Sodium 40 MG/0.4 ML SYRINGE SUBCUT (21:45)
[2023-09-12] MEDS: methylPREDNISolone Sod Succ 40 MG/ML VIAL IVPUSH (21:45)
[2023-09-12 21:55] LABS: Glucose, Whole Blood 296 mg/dL (60-115)
[2023-09-12] MEDS: Insulin Lispro 100 UNIT/ML 3 ML VIAL SUBCUT (21:57)
[2023-09-12] MEDS: Azithromycin 500 MG in 0.9 % Sodium Chloride 250 ML 125 MG IV (21:58)
[2023-09-12 23:16] VITALS: BP 108/53; PULSE 93; RESP 20; O2SAT 96
--- NOTE | 2023-09-12 23:17 | MHC.EDTECH ---
This tech assumed care of patient at 2300,hourly rounds and vitals completed and belonging list done.
[2023-09-13] VITALS (12 sets, daily range): BP systolic 96–120; BP diastolic 45–58; PULSE 71–90; RESP 16–20; TEMP 36.4–36.8; O2SAT 91–97; BMI 18.1
[2023-09-13] MEDS: 0.9 % Sodium Chloride Flush 3 ML SYRINGE IVFLUSH ×4 (00:12→23:56)
[2023-09-13] MEDS: Morphine Sulfate 2 MG/ML CARTRIDGE 1 MG IVPUSH ×4 (02:03→23:55)
--- NOTE | 2023-09-13 03:03 | MHC.EDTECH ---
Hourly rounds completed,patient is sleeping comfortably at this time and call grimes within reach.
--- NOTE | 2023-09-13 03:34 | PC.NURSE ---
SANDWICH GIVEN TO PATIENT
--- NOTE | 2023-09-13 04:26 | MHC.EDTECH ---
Hourly rounds and vitals completed, blood pressure is low at 96/45,RN Natividad made aware. Patient is sleeping comfortably at this time and call grimes within reach.
--- NOTE | 2023-09-13 04:57 | MHC.EDTECH ---
Patient urinated 200cc of urine in the urinal.
[2023-09-13 05:12] LABS: Basophils Percent Auto 0.1 % (0-2); Hematocrit 30.7 % (42.0-52.0); Imm Gran Abs Auto 0.07 X10*3/uL (0.00-0.03); Imm Gran Pct Auto 0.5 % (0.0-0.4); Lymphocytes Absolute Auto 0.3 X10*3/uL (1.2-4.9); Lymphocytes Percent Auto 2.2 % (20-40); MANUAL DIFF FLAG SCAN; Mean Corpuscular HGB Conc 29.3 g/dl (31.0-36.0); Mean Corpuscular Hemoglobin 22.2 pg (27.0-33.0); Mean Corpuscular Volume 75.8 fL (80.0-98.0); Mean Platelet Volume 10.2 fL (9.4-12.4); Monocytes Absolute Auto 0.1 X10*3/uL (0.1-1.2); Monocytes Percent Auto 0.5 % (2-11); Neutrophils Absolute Auto 14.3 x10*3/uL (2.0-8.3); Neutrophils Percent Auto 96.7 % (45-73); Platelet Count 458 X10*3/uL (160-400); Red Blood Count 4.05 X10*6/uL (4.60-5.80); Red Cell Distribution Width 16.9 % (11.0-16.0); SCAN SMEAR FLAG 1; White Blood Count 14.8 X10*3/uL (4.8-10.8)
[2023-09-13 05:22] LABS: Anion Gap 19 (12-20); Blood Urea Nitrogen 12 mg/dL (9-16); Calcium 8.6 mg/dL (8.4-10.2); Carbon Dioxide 21 mmol/L (22-29); Chloride 101 mmol/L (96-108); Estimated Glomerular Filt Rate > 60; Glucose Random 306 mg/dL (60-115); Potassium 4.6 mmol/L (3.3-5.1); Sodium 136 mmol/L (135-145)
[2023-09-13 05:30] LABS: SLIDE REVIEW VERIFIED
--- NOTE | 2023-09-13 07:13 | PC.NURSE ---
Pt is currently sleeping, awaiting bed placement at this time. he is a/ox4. Pt is currently eating breakfast, POC taken 210.
[2023-09-13 07:19] LABS: Glucose, Whole Blood 210 mg/dL (60-115)
[2023-09-13] MEDS: methylPREDNISolone Sod Succ 40 MG/ML VIAL IVPUSH (07:23)
[2023-09-13] MEDS: Nicotine 14 MG PATCH.TD24 TRANSDERMA (07:23)
[2023-09-13] MEDS: Insulin Lispro 100 UNIT/ML 3 ML VIAL SUBCUT ×4 (07:23→20:29)
[2023-09-13] MEDS: Albuterol/Iprat 2.5/0.5MG 3 ML AMPUL.NEB INHALE ×4 (07:28→19:46)
--- NOTE | 2023-09-13 09:17 | PC.NURSE ---
Attempted to give report to RN, however nurse was unavailable to take report and will call back
--- NOTE | 2023-09-13 09:20 | PHA.MEDREC ---
Pharmacy Consult ? Medication Reconciliation Pharmacy has completed the medication reconciliation. Seems to be half completed from RN overnight. Unsure if he still takes bone pill. Alan
--- NOTE | 2023-09-13 09:31 | PC.NURSE ---
Report given to RN, pt to be transported up to floor
[2023-09-13 10:05] LABS: Glucose, Whole Blood 201 mg/dL (60-115)
[2023-09-13 12:00] LABS: Glucose, Whole Blood 205 mg/dL (60-115)
[2023-09-13] MEDS: methylPREDNISolone Sod Succ 125 MG/2 ML VIAL 60 MG IVPUSH ×2 (13:46→20:12)
--- NOTE | 2023-09-13 13:58 | MHC.CLN ---
NUTRITION CONSULT FOR POOR PO. DIET=REGULAR. ADDING FORTIFIED ICE CREAM TO INCREASE NUTRITIONAL INTAKE. PROVIDES 870 KCALS, 27 G PROTEIN. QUALIFIES NON SEVERE, MODERATE, MALNUTRITION IN THE CONTEXT OF CHRONIC ILLNESS. SHOWS MILD DEPLETION OF BODY FAT AND MUSCLE MASS. SKIN WITH NO OPEN AREAS. ATE WELL AT LUNCH TODAY. LIKES ICE CREAM AT EACH MEAL. FOLLOW FOR PO INTAKE AND WEIGHT. SEE CLINICAL NUTRITION ASSESSMENT 09/13/23.
--- NOTE | 2023-09-13 14:49 | P.PNIM_ITS ---
Subjective Subjective Date of Service: 09/13/23 Interval History: Breathing essentially unchanged since admission. No new symptoms Review of Systems Denies chest pain Admits shortness of breath with minimal exertion Denies nausea vomiting diarrhea Denies fever chills Physical Exam 2 Vital Signs: Vital Signs: Last Vital Signs Temp 97.5 F 09/13/23 10:21 Pulse 71 09/13/23 11:36 Resp 18 09/13/23 11:36 BP 120/58 L 09/13/23 10:21 Pulse Ox 97 09/13/23 10:21 O2 Del Method Room Air 09/13/23 10:21 BMI result Body Mass Index 18.1 Const: Other: No acute distress Resp: Other: Diminished throughout with dense expiratory wheezes Cardio: Other: No S4; positive S1-S2; no S3 murmurs rubs or gallops GI: Other: Soft nontender nondistended normoactive bowel sounds Extrem: Other: No edema bilaterally Objective Data Active Medications Acetaminophen (Acetaminophen 325 Mg Tablet) 650 mg PO Q6H PRN PRN Reason: Pain, Mild (Pain Scale 1-3) Albuterol Sulfate (Albuterol Sulfate 90 Mcg 8 Gm Inhaler) 2 puff INHALE Q4-6H PRN PRN Reason: shortness of breath or wheezing Albuterol/Ipratropium (Albuterol/Iprat 2.5/0.5mg 3 Ml Ampul.Neb) 3 ml INHALE RQ4H WHILE AWAKE [facility] Last Admin: 09/13/23 11:34 Dose: 3 ml Documented By: CHANTELLE Albuterol/Ipratropium (Albuterol/Iprat 2.5/0.5mg 3 Ml Ampul.Neb) 3 ml INHALE Q4H PRN PRN Reason: Wheezing Albuterol/Ipratropium (Albuterol/Iprat 2.5/0.5mg 3 Ml Ampul.Neb) 3 ml INHALE QID PRN PRN Reason: wheezing Dextrose (Dextrose 50 % 25 Gm/50 Ml Syringe) 25 gm IVPUSH Q15M PRN; Protocol PRN Reason: per Hypoglycemia Standing Ord. Duloxetine HCl (Duloxetine Hcl 30 Mg Capsule.Dr) 30 mg PO DAILY [facility] Enoxaparin Sodium (Enoxaparin Sodium 40 Mg/0.4 Ml Syringe) 40 mg SUBCUT Q24H [facility] Last Admin: 09/12/23 21:45 Dose: 40 mg Documented By: ALEXANDRIA Fluticasone/Umeclidinium/Vilanterol (Fluticasone/Umeclidinium/Vilanterol 200/62.5/25 Blst.W.Dev) 1 puff INHALE DAILY [facility] Glucose (Glucose Gel 15 Gm Gel..Gram.) 15 gm PO Q15M PRN; Protocol PRN Reason: per Hypoglycemia Standing Ord. Azithromycin 500 mg/ Sodium (Chloride) 250 mls @ 125 mls/hr IV Q24H [facility] Last Infusion: 09/13/23 01:02 Dose: Infused Documented By: REJI Insulin Human Lispro (Insulin Lispro 100 Unit/Ml 3 Ml Vial) 0 unit SUBCUT QIDACHS [facility]; Protocol Last Admin: 09/13/23 12:41 Dose: 4 unit Documented By: MARISA Levothyroxine Sodium (Levothyroxine Sodium 88 Mcg Tablet) 88 mcg PO DAILY@0600 [facility] Melatonin (Melatonin 3 Mg Tablet) 6 mg PO BEDTIME PRN PRN Reason: Insomnia Metformin HCl (Metformin Hcl 500 Mg Tablet) 500 mg PO DAILY [facility] Methylprednisolone Sodium Succinate (Methylprednisolone Sod Succ 125 Mg/2 Ml Vial) 60 mg IVPUSH Q6H [facility] Last Admin: 09/13/23 13:46 Dose: 60 mg Documented By: MARISA Mirtazapine (Mirtazapine 7.5 Mg Tablet) 7.5 mg PO BEDTIME [facility] Morphine Sulfate (Morphine Sulfate 2 Mg/Ml Cartridge) 1 mg IVPUSH Q4H PRN; Protocol PRN Reason: Pain, Severe (Pain Scale 7-10) Last Admin: 09/13/23 14:37 Dose: 1 mg Documented By: MARISA Multivitamins/Vitamin C (Multivitamin Tablet) 1 tab PO DAILY [facility] Nicotine (Nicotine 14 Mg Patch.Td24) 14 mg TRANSDERMA DAILY [facility] Last Admin: 09/13/23 07:23 Dose: 14 mg Documented By: NAVNEET Non-Formulary Medication (Nabumetone) 500 mg PO BID PRN PRN Reason: Pain Omeprazole (Omeprazole 20 Mg Capsule.Dr) 20 mg PO DAILY@0630 [facility] Ondansetron HCl (Ondansetron Hcl 4 Mg/2 Ml Vial) 4 mg IVPUSH Q8H PRN PRN Reason: Nausea and Vomiting Prednisone (Prednisone 20 Mg Tablet) 20 mg PO DAILY [facility] Pyridoxine HCl (Pyridoxine Hcl (Vitamin B6) 50 Mg Tablet) 50 mg PO DAILY [facility] Sodium Chloride (0.9 % Sodium Chloride Flush 3 Ml Syringe) 3 ml IVFLUSH QSHIFT [facility] Last Admin: 09/13/23 07:23 Dose: 3 ml Documented By: NAVNEET Theophylline (Theophylline Anhydrous Er 400 Mg Tab.Er.24h) 400 mg PO DAILY [facility] Topiramate (Topiramate 25 Mg Tablet) 50 mg PO DAILY [facility] Topiramate (Topiramate 25 Mg Tablet) 100 mg PO BEDTIME [facility] Vitamin D (Cholecalciferol (Vitamin D3) 25 Mcg Tablet) 50 mcg PO DAILY [facility] Labs 09/13/23 04:32 09/13/23 04:32 Labs: Laboratory Results - last 24 hr 09/12/23 09/12/23 09/12/23 18:20 18:22 18:26 MCV 75.3 L MCH 22.2 L MCHC 29.6 L RDW 16.7 H Plt Count 647 H D MPV 9.0 L Immature Gran % (Auto) 0.6 H Neut % (Auto) 85.8 H Lymph % (Auto) 6.9 L Centre % (Auto) 5.6 Eos % (Auto) 0.8 Baso % (Auto) 0.3 Lymph # (Auto) 1.3 Centre # (Auto) 1.0 Eos # (Auto) 0.1 Baso # (Auto) 0.1 Abs Immat Gran (auto) 0.11 H Absolute Neuts (auto) 15.5 H Absolute Nucleated RBC 0.000 Nucleated RBC % (auto) 0.0 Smear Tech's Comments PT 13.4 H INR 1.1 APTT 34.7 VBG pH 7.49 H VBG pCO2 33 VBG pO2 47 VBG HCO3 25 VBG O2 Saturation 70.0 VBG Base Excess 3.1 Anion Gap 17 Estim Creat Clear Calc 53.1 Estimated GFR > 60 POC Glucose Random Glucose 136 H Lactic Acid 1.7 Calcium 9.5 D Total Bilirubin 0.5 AST 22 ALT 7 Alkaline Phosphatase 117 B-Natriuretic Peptide 38 Total Protein 7.3 Albumin 3.6 Influenza Type A (PCR) NEGATIVE Influenza Type B (PCR) NEGATIVE RSV RNA Qual (PCR) NEGATIVE SARS-CoV-2 RNA (RT-PCR) NEGATIVE 09/12/23 09/13/23 09/13/23 21:50 04:32 07:15 MCV 75.8 L MCH 22.2 L MCHC 29.3 L RDW 16.9 H Plt Count 458 H D MPV 10.2 Immature Gran % (Auto) 0.5 H Neut % (Auto) 96.7 H Lymph % (Auto) 2.2 L Centre % (Auto) 0.5 L Eos % (Auto) 0.0 Baso % (Auto) 0.1 Lymph # (Auto) 0.3 L Centre # (Auto) 0.1 Eos # (Auto) 0.0 Baso # (Auto) 0.0 Abs Immat Gran (auto) 0.07 H Absolute Neuts (auto) 14.3 H Absolute Nucleated RBC 0.000 Nucleated RBC % (auto) 0.0 Smear Tech's Comments VERIFIED PT INR APTT VBG pH VBG pCO2 VBG pO2 VBG HCO3 VBG O2 Saturation VBG Base Excess Anion Gap 19 Estim Creat Clear Calc 49.0 Estimated GFR > 60 POC Glucose 296 H 210 H Random Glucose 306 H Lactic Acid Calcium 8.6 D Total Bilirubin AST ALT Alkaline Phosphatase B-Natriuretic Peptide Total Protein Albumin Influenza Type A (PCR) Influenza Type B (PCR) RSV RNA Qual (PCR) SARS-CoV-2 RNA (RT-PCR) 09/13/23 09/13/23 10:00 11:56 MCV MCH MCHC RDW Plt Count MPV Immature Gran % (Auto) Neut % (Auto) Lymph % (Auto) Centre % (Auto) Eos % (Auto) Baso % (Auto) Lymph # (Auto) Centre # (Auto) Eos # (Auto) Baso # (Auto) Abs Immat Gran (auto) Absolute Neuts (auto) Absolute Nucleated RBC Nucleated RBC % (auto) Smear Tech's Comments PT INR APTT VBG pH VBG pCO2 VBG pO2 VBG HCO3 VBG O2 Saturation VBG Base Excess Anion Gap Estim Creat Clear Calc Estimated GFR POC Glucose 201 H 205 H Random Glucose Lactic Acid Calcium Total Bilirubin AST ALT Alkaline Phosphatase B-Natriuretic Peptide Total Protein Albumin Influenza Type A (PCR) Influenza Type B (PCR) RSV RNA Qual (PCR) SARS-CoV-2 RNA (RT-PCR) Assessment and Plan (1) Asthma with exacerbation: Status: Acute (2) COPD with acute exacerbation: Status: Acute (3) Diabetes: Status: Acute Plan This is a 77-year-old male with pertinent history of asthma as/COPD overlap syndrome not on home oxygen, hypothyroidism, mood disorder, drb-wtallgm-yifhddrse diabetes mellitus, history of lung cancer, tobacco use disorder presents to the emergency department for evaluation of dyspnea. Chest x-ray negative for pneumonia however exam with dense expiratory wheezes. Continues to smoke 1.Acute exacerbation of asthma/COPD -IV Solu-Medrol q.6 hours -scheduled DuoNebs -titrate O2 to maintain sats greater than or equal to 90% -azithromycin given productive cough 2.Hgl-apxdjlt-vlmjgdbfz diabetes mellitus -acceptable control on current therapies -continue metformin -lispro correctional scale -adjust as indicated 3.Hypothyroidism -continue outpatient supplements Lovenox Full code Requires ongoing hospitalization for IV steroids to treat COPD exacerbation along with supplemental O2 Time Spent With Patient Time: Total time managing care of this patient today ____ minutes. Quality Stroke Does the patient have a stroke diagnosis?: No VTE Prior VTE?: No VTE Risk Level:: Medical - moderate - high VTE Device Contraindication: Treatment Not Indicated VTE Drug Contraindication: N/A - Med Ordered
--- NOTE | 2023-09-13 15:13 | MHC.CM.PN ---
with interpertaor pt lives in a 2 family with his cousin upstairs he had no servixes his car is in parking lot dc plan home no servies
[2023-09-13 16:12] LABS: Glucose, Whole Blood 211 mg/dL (60-115)
[2023-09-13] MEDS: Acetaminophen 325 MG TABLET 650 MG PO (17:12)
[2023-09-13] MEDS: Mirtazapine 7.5 MG TABLET PO (20:13)
[2023-09-13] MEDS: Topiramate 25 MG TABLET 100 MG PO (20:13)
[2023-09-13] MEDS: Enoxaparin Sodium 40 MG/0.4 ML SYRINGE SUBCUT (20:13)
[2023-09-13 20:26] LABS: Glucose, Whole Blood 238 mg/dL (60-115)
[2023-09-13] MEDS: Azithromycin 500 MG in 0.9 % Sodium Chloride 250 ML 125 MG IV (20:30)
[2023-09-14] VITALS (7 sets, daily range): BP systolic 95–144; BP diastolic 55–60; PULSE 66–94; RESP 16–20; TEMP 36–36.6; O2SAT 93–100
[2023-09-14] MEDS: methylPREDNISolone Sod Succ 125 MG/2 ML VIAL 60 MG IVPUSH ×4 (01:45→21:24)
[2023-09-14] MEDS: Omeprazole 20 MG CAPSULE.DR PO (05:55)
[2023-09-14] MEDS: Levothyroxine Sodium 88 MCG TABLET PO (05:55)
[2023-09-14 06:07] LABS: Basophils Percent Auto 0.1 % (0-2); Hematocrit 31.6 % (42.0-52.0); Hemoglobin 9.4 g/dl (14.0-18.0); Imm Gran Abs Auto 0.15 X10*3/uL (0.00-0.03); Imm Gran Pct Auto 0.9 % (0.0-0.4); Lymphocytes Absolute Auto 0.4 X10*3/uL (1.2-4.9); Lymphocytes Percent Auto 2.4 % (20-40); MANUAL DIFF FLAG SCAN; Mean Corpuscular HGB Conc 29.7 g/dl (31.0-36.0); Mean Corpuscular Hemoglobin 22.8 pg (27.0-33.0); Mean Corpuscular Volume 76.7 fL (80.0-98.0); Mean Platelet Volume 9.6 fL (9.4-12.4); Monocytes Absolute Auto 0.2 X10*3/uL (0.1-1.2); Monocytes Percent Auto 1.1 % (2-11); Neutrophils Absolute Auto 16.2 x10*3/uL (2.0-8.3); Neutrophils Percent Auto 95.5 % (45-73); Platelet Count 492 X10*3/uL (160-400); Red Blood Count 4.12 X10*6/uL (4.60-5.80); Red Cell Distribution Width 16.6 % (11.0-16.0); SCAN SMEAR FLAG 1; White Blood Count 16.9 X10*3/uL (4.8-10.8)
[2023-09-14 06:25] LABS: Alanine Aminotransferase 8 U/L (0-40); Albumin Level 3.2 g/dL (3.5-5.0); Alkaline Phosphatase 94 U/L (39-117); Anion Gap 17 (12-20); Aspartate Amino Transferase 14 U/L (5-37); Bilirubin Total 0.1 mg/dL (0.0-1.0); Blood Urea Nitrogen 19 mg/dL (9-16); Calcium 9.3 mg/dL (8.4-10.2); Carbon Dioxide 26 mmol/L (22-29); Chloride 104 mmol/L (96-108); Creatinine Clr Calc Pharmacy 53.1; Estimated Glomerular Filt Rate > 60; Glucose Fasting 158 mg/dL (60-99); Potassium 4.5 mmol/L (3.3-5.1); Sodium 142 mmol/L (135-145); Total Protein 6.4 g/dL (6.5-8.0)
[2023-09-14 07:21] LABS: SLIDE REVIEW VERIFIED
[2023-09-14 07:21] LABS: Glucose, Whole Blood 169 mg/dL (60-115)
[2023-09-14] MEDS: Albuterol/Iprat 2.5/0.5MG 3 ML AMPUL.NEB INHALE ×4 (07:55→19:26)
[2023-09-14] MEDS: Fluticasone/Umeclidinium/Vilanterol 200/62.5/25 BLST.W.DEV 1 PUFF INHALE (07:55)
[2023-09-14] MEDS: Nicotine 14 MG PATCH.TD24 TRANSDERMA (08:22)
[2023-09-14] MEDS: DULoxetine HCl 30 MG CAPSULE.DR PO (08:23)
[2023-09-14] MEDS: Theophylline Anhydrous ER 400 MG TAB.ER.24H PO (08:23)
[2023-09-14] MEDS: Cholecalciferol (Vitamin D3) 25 MCG TABLET 50 MCG PO (08:23)
[2023-09-14] MEDS: Pyridoxine HCl (Vitamin B6) 50 MG TABLET PO (08:23)
[2023-09-14] MEDS: metFORMIN HCl 500 MG TABLET PO (08:23)
[2023-09-14] MEDS: Multivitamin TABLET 1 TAB PO (08:23)
[2023-09-14] MEDS: Topiramate 25 MG TABLET 50 MG PO (08:23)
[2023-09-14] MEDS: Insulin Lispro 100 UNIT/ML 3 ML VIAL SUBCUT ×4 (08:23→21:26)
[2023-09-14] MEDS: 0.9 % Sodium Chloride Flush 3 ML SYRINGE IVFLUSH ×3 (08:24→23:31)
[2023-09-14] MEDS: Morphine Sulfate 2 MG/ML CARTRIDGE 1 MG IVPUSH (08:36)
[2023-09-14 11:16] LABS: Glucose, Whole Blood 231 mg/dL (60-115)
[2023-09-14] MEDS: traMADoL HCL 50 MG TABLET PO ×2 (13:23→21:25)
--- NOTE | 2023-09-14 14:26 | HO.PM.IMPN ---
Subjective Subjective Date of Service: 09/15/23 Interval History: Notes breathing slightly improved; back pain bothersome. States takes tramadol at home Review of Systems Denies chest pain Admits shortness of breath with minimal exertion Denies nausea vomiting diarrhea Denies fever chills Physical Exam Vital Signs: Vital Signs: Last Vital Signs Temp 96.8 F 09/14/23 07:29 Pulse 72 09/14/23 11:55 Resp 20 09/14/23 11:55 BP 114/55 L 09/14/23 07:29 Pulse Ox 99 09/14/23 07:29 O2 Del Method Room Air 09/14/23 07:29 BMI result Body Mass Index 18.1 Const: Other: No acute distress Resp: Other: Diminished throughout with dense expiratory wheezes Cardio: Other: No S4; positive S1-S2; no S3 murmurs rubs or gallops GI: Other: Soft nontender nondistended normoactive bowel sounds Extrem: Other: No edema bilaterally Objective Data Active Medications Acetaminophen (Acetaminophen 325 Mg Tablet) 650 mg PO Q6H PRN PRN Reason: Pain, Mild (Pain Scale 1-3) Last Admin: 09/13/23 17:12 Dose: 650 mg Documented By: BRI Albuterol Sulfate (Albuterol Sulfate 90 Mcg 8 Gm Inhaler) 2 puff INHALE Q4H PRN PRN Reason: shortness of breath or wheezing Albuterol/Ipratropium (Albuterol/Iprat 2.5/0.5mg 3 Ml Ampul.Neb) 3 ml INHALE RQ4H WHILE AWAKE [facility] Last Admin: 09/14/23 11:54 Dose: 3 ml Documented By: AMINATA Albuterol/Ipratropium (Albuterol/Iprat 2.5/0.5mg 3 Ml Ampul.Neb) 3 ml INHALE Q4H PRN PRN Reason: Wheezing Albuterol/Ipratropium (Albuterol/Iprat 2.5/0.5mg 3 Ml Ampul.Neb) 3 ml INHALE QID PRN PRN Reason: wheezing Dextrose (Dextrose 50 % 25 Gm/50 Ml Syringe) 25 gm IVPUSH Q15M PRN; Protocol PRN Reason: per Hypoglycemia Standing Ord. Duloxetine HCl (Duloxetine Hcl 30 Mg Capsule.Dr) 30 mg PO DAILY [facility] Last Admin: 09/14/23 08:23 Dose: 30 mg Documented By: MARISA Enoxaparin Sodium (Enoxaparin Sodium 40 Mg/0.4 Ml Syringe) 40 mg SUBCUT Q24H [facility] Last Admin: 09/13/23 20:13 Dose: 40 mg Documented By: BRI Fluticasone/Umeclidinium/Vilanterol (Fluticasone/Umeclidinium/Vilanterol 200/62.5/25 Blst.W.Dev) 1 puff INHALE DAILY [facility] Last Admin: 09/14/23 07:55 Dose: 1 puff Documented By: MP Glucose (Glucose Gel 15 Gm Gel..Gram.) 15 gm PO Q15M PRN; Protocol PRN Reason: per Hypoglycemia Standing Ord. Azithromycin 500 mg/ Sodium (Chloride) 250 mls @ 125 mls/hr IV Q24H [facility] Last Infusion: 09/13/23 22:40 Dose: Infused Documented By: BRI Insulin Human Lispro (Insulin Lispro 100 Unit/Ml 3 Ml Vial) 0 unit SUBCUT QIDACHS [facility]; Protocol Last Admin: 09/14/23 11:52 Dose: 4 unit Documented By: MARISA Levothyroxine Sodium (Levothyroxine Sodium 88 Mcg Tablet) 88 mcg PO DAILY@0600 [facility] Last Admin: 09/14/23 05:55 Dose: 88 mcg Documented By: TERESA Melatonin (Melatonin 3 Mg Tablet) 6 mg PO BEDTIME PRN PRN Reason: Insomnia Metformin HCl (Metformin Hcl 500 Mg Tablet) 500 mg PO DAILY [facility] Last Admin: 09/14/23 08:23 Dose: 500 mg Documented By: MARISA Methylprednisolone Sodium Succinate (Methylprednisolone Sod Succ 125 Mg/2 Ml Vial) 60 mg IVPUSH Q6H [facility] Last Admin: 09/14/23 13:24 Dose: 60 mg Documented By: MARISA Mirtazapine (Mirtazapine 7.5 Mg Tablet) 7.5 mg PO BEDTIME [facility] Last Admin: 09/13/23 20:13 Dose: 7.5 mg Documented By: BRI Morphine Sulfate (Morphine Sulfate 2 Mg/Ml Cartridge) 1 mg IVPUSH Q4H PRN; Protocol PRN Reason: Pain, Severe (Pain Scale 7-10) Last Admin: 09/14/23 08:36 Dose: 1 mg Documented By: MARISA Multivitamins/Vitamin C (Multivitamin Tablet) 1 tab PO DAILY [facility] Last Admin: 09/14/23 08:23 Dose: 1 tab Documented By: MARISA Nicotine (Nicotine 14 Mg Patch.Td24) 14 mg TRANSDERMA DAILY [facility] Last Admin: 09/14/23 08:22 Dose: 14 mg Documented By: MARISA Non-Formulary Medication (Nabumetone) 500 mg PO BID PRN PRN Reason: Pain Omeprazole (Omeprazole 20 Mg Capsule.Dr) 20 mg PO DAILY@0630 [facility] Last Admin: 09/14/23 05:55 Dose: 20 mg Documented By: TERESA Ondansetron HCl (Ondansetron Hcl 4 Mg/2 Ml Vial) 4 mg IVPUSH Q8H PRN PRN Reason: Nausea and Vomiting Pyridoxine HCl (Pyridoxine Hcl (Vitamin B6) 50 Mg Tablet) 50 mg PO DAILY [facility] Last Admin: 09/14/23 08:23 Dose: 50 mg Documented By: MARISA Sodium Chloride (0.9 % Sodium Chloride Flush 3 Ml Syringe) 3 ml IVFLUSH QSHIFT [facility] Last Admin: 09/14/23 08:24 Dose: 3 ml Documented By: MARISA Theophylline (Theophylline Anhydrous Er 400 Mg Tab.Er.24h) 400 mg PO DAILY [facility] Last Admin: 09/14/23 08:23 Dose: 400 mg Documented By: MARISA Topiramate (Topiramate 25 Mg Tablet) 50 mg PO DAILY [facility] Last Admin: 09/14/23 08:23 Dose: 50 mg Documented By: MARISA Topiramate (Topiramate 25 Mg Tablet) 100 mg PO BEDTIME [facility] Last Admin: 09/13/23 20:13 Dose: 100 mg Documented By: BRI Tramadol HCl (Tramadol Hcl 50 Mg Tablet) 50 mg PO Q6H PRN PRN Reason: Pain, Moderate(Pain Scale 4-6) Last Admin: 09/14/23 13:23 Dose: 50 mg Documented By: MARISA Vitamin D (Cholecalciferol (Vitamin D3) 25 Mcg Tablet) 50 mcg PO DAILY [facility] Last Admin: 09/14/23 08:23 Dose: 50 mcg Documented By: MARISA Labs 09/15/23 05:42 09/15/23 05:42 Labs: Laboratory Results - last 24 hr 09/13/23 09/13/23 09/14/23 16:03 20:20 05:58 MCV 76.7 L MCH 22.8 L MCHC 29.7 L RDW 16.6 H Plt Count 492 H MPV 9.6 Immature Gran % (Auto) 0.9 H Neut % (Auto) 95.5 H Lymph % (Auto) 2.4 L [place] % (Auto) 1.1 L Eos % (Auto) 0.0 Baso % (Auto) 0.1 Lymph # (Auto) 0.4 L [place] # (Auto) 0.2 Eos # (Auto) 0.0 Baso # (Auto) 0.0 Abs Immat Gran (auto) 0.15 H Absolute Neuts (auto) 16.2 H Absolute Nucleated RBC 0.000 Nucleated RBC % (auto) 0.0 Smear Tech's Comments VERIFIED Anion Gap 17 Estim Creat Clear Calc 53.1 Estimated GFR > 60 POC Glucose 211 H 238 H Fasting Glucose 158 H Calcium 9.3 D Total Bilirubin 0.1 AST 14 ALT 8 Alkaline Phosphatase 94 Total Protein 6.4 L Albumin 3.2 L 09/14/23 09/14/23 07:17 11:05 MCV MCH MCHC RDW Plt Count MPV Immature Gran % (Auto) Neut % (Auto) Lymph % (Auto) [place] % (Auto) Eos % (Auto) Baso % (Auto) Lymph # (Auto) [place] # (Auto) Eos # (Auto) Baso # (Auto) Abs Immat Gran (auto) Absolute Neuts (auto) Absolute Nucleated RBC Nucleated RBC % (auto) Smear Tech's Comments Anion Gap Estim Creat Clear Calc Estimated GFR POC Glucose 169 H 231 H Fasting Glucose Calcium Total Bilirubin AST ALT Alkaline Phosphatase Total Protein Albumin Microbiology Microbiology Results: Microbiology 09/12/23 18:22 Blood Culture - Preliminary Blood - Venous No growth after 24 hours. 09/12/23 18:40 Blood Culture - Preliminary Blood - Venous No growth after 24 hours. 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 Chest x-ray negative for pneumonia however exam with dense expiratory wheezes. Continues to smoke 1.Acute exacerbation of asthma/COPD -IV Solu-Medrol q.6 hours -scheduled DuoNebs -weaned to room air without issues 2.Xfd-nqdgwzu-caejdzfgs diabetes mellitus -acceptable control on current therapies -continue metformin -lispro correctional scale -adjust as indicated 3.Hypothyroidism -continue outpatient supplements 4. Back pain -restart tramadol at outpatient dosing Lovenox Full code Requires ongoing hospitalization for IV steroids to treat COPD exacerbation along with supplemental O2 Time Spent With Patient Time: Total time managing care of this patient today ____ minutes. Quality Stroke Does the patient have a stroke diagnosis?: No VTE Prior VTE?: No VTE Risk Level:: Medical - moderate - high VTE Device Contraindication: Treatment Not Indicated VTE Drug Contraindication: N/A - Med Ordered
[2023-09-14 17:01] LABS: Glucose, Whole Blood 270 mg/dL (60-115)
[2023-09-14 20:57] LABS: Glucose, Whole Blood 179 mg/dL (60-115)
[2023-09-14] MEDS: Mirtazapine 7.5 MG TABLET PO (21:24)
[2023-09-14] MEDS: Topiramate 25 MG TABLET 100 MG PO (21:25)
[2023-09-14] MEDS: Enoxaparin Sodium 40 MG/0.4 ML SYRINGE SUBCUT (21:26)
[2023-09-14] MEDS: Azithromycin 500 MG in 0.9 % Sodium Chloride 250 ML 125 MG IV (21:27)
[2023-09-15] MEDS: methylPREDNISolone Sod Succ 125 MG/2 ML VIAL 60 MG IVPUSH ×2 (01:48→08:27)
[2023-09-15 04:00] VITALS: BP 124/56; PULSE 66; RESP 16; TEMP 36.1; O2SAT 98
[2023-09-15] MEDS: Omeprazole 20 MG CAPSULE.DR PO (05:55)
[2023-09-15] MEDS: Levothyroxine Sodium 88 MCG TABLET PO (05:55)
[2023-09-15 06:47] LABS: Basophils Percent Auto 0.1 % (0-2); Hemoglobin 8.4 g/dl (14.0-18.0); Imm Gran Abs Auto 0.14 X10*3/uL (0.00-0.03); Imm Gran Pct Auto 0.9 % (0.0-0.4); Lymphocytes Absolute Auto 0.3 X10*3/uL (1.2-4.9); Lymphocytes Percent Auto 1.9 % (20-40); MANUAL DIFF FLAG SCAN; Mean Corpuscular Hemoglobin 22.8 pg (27.0-33.0); Mean Corpuscular Volume 75.9 fL (80.0-98.0); Mean Platelet Volume 9.9 fL (9.4-12.4); Monocytes Absolute Auto 0.2 X10*3/uL (0.1-1.2); Neutrophils Absolute Auto 15.5 x10*3/uL (2.0-8.3); Neutrophils Percent Auto 96.1 % (45-73); Platelet Count 488 X10*3/uL (160-400); Red Blood Count 3.69 X10*6/uL (4.60-5.80); Red Cell Distribution Width 16.9 % (11.0-16.0); SCAN SMEAR FLAG 1; White Blood Count 16.1 X10*3/uL (4.8-10.8)
[2023-09-15 06:53] LABS: Alanine Aminotransferase 9 U/L (0-40); Albumin Level 3.1 g/dL (3.5-5.0); Alkaline Phosphatase 94 U/L (39-117); Anion Gap 15 (12-20); Aspartate Amino Transferase 20 U/L (5-37); Bilirubin Total 0.1 mg/dL (0.0-1.0); Blood Urea Nitrogen 19 mg/dL (9-16); Calcium 9.3 mg/dL (8.4-10.2); Carbon Dioxide 24 mmol/L (22-29); Chloride 106 mmol/L (96-108); Creatinine Clr Calc Pharmacy 55.1; Estimated Glomerular Filt Rate > 60; Glucose Fasting 218 mg/dL (60-99); Potassium 4.3 mmol/L (3.3-5.1); Sodium 141 mmol/L (135-145); Total Protein 6.1 g/dL (6.5-8.0)
[2023-09-15 07:08] LABS: Glucose, Whole Blood 203 mg/dL (60-115)
[2023-09-15 07:09] VITALS: BP 133/62; PULSE 60; RESP 12; TEMP 36; O2SAT 96
[2023-09-15 07:09] LABS: SLIDE REVIEW VERIFIED
[2023-09-15 07:46] VITALS: PULSE 67; RESP 16; O2SAT 97
[2023-09-15] MEDS: Albuterol/Iprat 2.5/0.5MG 3 ML AMPUL.NEB INHALE ×2 (07:46→11:07)
[2023-09-15] MEDS: Fluticasone/Umeclidinium/Vilanterol 200/62.5/25 BLST.W.DEV 1 PUFF INHALE (08:11)
[2023-09-15] MEDS: Nicotine 14 MG PATCH.TD24 TRANSDERMA (08:27)
[2023-09-15] MEDS: Insulin Lispro 100 UNIT/ML 3 ML VIAL SUBCUT (08:27)
[2023-09-15] MEDS: Pyridoxine HCl (Vitamin B6) 50 MG TABLET PO (08:28)
[2023-09-15] MEDS: Topiramate 25 MG TABLET 50 MG PO (08:28)
[2023-09-15] MEDS: traMADoL HCL 50 MG TABLET PO (08:28)
[2023-09-15] MEDS: Theophylline Anhydrous ER 400 MG TAB.ER.24H PO (08:28)
[2023-09-15] MEDS: metFORMIN HCl 500 MG TABLET PO (08:28)
[2023-09-15] MEDS: Cholecalciferol (Vitamin D3) 25 MCG TABLET 50 MCG PO (08:28)
[2023-09-15] MEDS: Multivitamin TABLET 1 TAB PO (08:28)
[2023-09-15] MEDS: DULoxetine HCl 30 MG CAPSULE.DR PO (08:28)
[2023-09-15] MEDS: 0.9 % Sodium Chloride Flush 3 ML SYRINGE IVFLUSH (08:29)
--- NOTE | 2023-09-15 10:28 | MHC.CLN ---
F/U DIET=REGULAR. ADDING FORTIFIED ICE CREAM TO INCREASE NUTRITIONAL INTAKE. SUPPLEMENT PROVIDES 870 KCALS, 27 G PROTEIN. INTAKE APPEARS VERY GOOD WITH 4 MEALS X 100%. FOLLOW FOR PO INTAKE AND WEIGHT.
[2023-09-15 11:08] VITALS: PULSE 76; RESP 16; O2SAT 95
[2023-09-15 11:20] LABS: Glucose, Whole Blood 120 mg/dL (60-115)
--- NOTE | 2023-09-15 12:45 | P.DS_ITS ---
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 Patient states he has been having wheezing, dyspnea worse with exertion and nonproductive cough that started 1 day prior to presentation.? It is progressive and worse with ambulation.? He continues to smoke tobacco.? Patient has refused therapy for lung cancer.? He denies fever, chills, chest discomfort, palpitations, abdominal pain, changes in urinary or bowel habits. Has pleuritic chest discomfort. Hospital [facility] Admitted to the general medical floor. Continued azithromycin and pulse dose steroids. Over the next 48 hours he improved to the point of weaning off O2 and is ambulating ad megan in his room. Was utilizing tramadol for low back pain. At this point is medically acceptable for discharge home to complete a prednisone taper. Can follow-up with PCP as scheduled Time Spent with Patient Time attestation: Total time managing care of this patient today ____ minutes. Discharge coordination time: Greater than 30 minutes Quality: Safe Use of Opioids Does Pt have an Active Cancer Diagnosis on the Problem List?: No Quality: Stroke Does the patient have a stroke diagnosis?: No Physical Exam Vital Signs: Vital Signs: Last Vital Signs Temp 96.8 F 09/15/23 07:09 Pulse 76 09/15/23 11:08 Resp 16 09/15/23 11:08 BP 133/62 09/15/23 07:09 Pulse Ox 96 09/15/23 07:09 O2 Del Method Room Air 09/15/23 07:09 BMI result Body Mass Index 18.1 Const: Other: No acute distress Resp: Other: Diminished throughout with scattered expiratory wheezes Cardio: Other: No S4; positive S1-S2; no S3 murmurs rubs or gallops GI: Other: Soft nontender nondistended normoactive bowel sounds Extrem: Other: No edema bilaterally DS: Data Data Completed and Pending Completed studies during hospitalization [Text1]: Procedures Dilation of Right Ureter with Intraluminal Device, Via Natural or Artificial Opening Endoscopic (11/16/21) Extirpation of Matter from Right Ureter, Via Natural or Artificial Opening Endoscopic (11/16/21) Fluoroscopy of Right Kidney, Ureter and Bladder (11/16/21) Labs on day of discharge: Laboratory Results - last 24 hr 09/14/23 09/14/23 09/15/23 16:54 20:52 05:42 WBC 16.1 H RBC 3.69 L Hgb 8.4 L Hct 28.0 L MCV 75.9 L MCH 22.8 L MCHC 30.0 L RDW 16.9 H Plt Count 488 H MPV 9.9 Immature Gran % (Auto) 0.9 H Neut % (Auto) 96.1 H Lymph % (Auto) 1.9 L [place] % (Auto) 1.0 L Eos % (Auto) 0.0 Baso % (Auto) 0.1 Lymph # (Auto) 0.3 L [place] # (Auto) 0.2 Eos # (Auto) 0.0 Baso # (Auto) 0.0 Abs Immat Gran (auto) 0.14 H Absolute Neuts (auto) 15.5 H Absolute Nucleated RBC 0.000 Nucleated RBC % (auto) 0.0 Smear Tech's Comments VERIFIED Sodium 141 Potassium 4.3 Chloride 106 Carbon Dioxide 24 Anion Gap 15 BUN 19 H Creatinine 0.81 Estim Creat Clear Calc 55.1 Estimated GFR > 60 POC Glucose 270 H 179 H Fasting Glucose 218 H Calcium 9.3 Total Bilirubin 0.1 AST 20 ALT 9 Alkaline Phosphatase 94 Total Protein 6.1 L Albumin 3.1 L 09/15/23 09/15/23 07:01 11:14 WBC RBC Hgb Hct MCV MCH MCHC RDW Plt Count MPV Immature Gran % (Auto) Neut % (Auto) Lymph % (Auto) [place] % (Auto) Eos % (Auto) Baso % (Auto) Lymph # (Auto) [place] # (Auto) Eos # (Auto) Baso # (Auto) Abs Immat Gran (auto) Absolute Neuts (auto) Absolute Nucleated RBC Nucleated RBC % (auto) Smear Tech's Comments Sodium Potassium Chloride Carbon Dioxide Anion Gap BUN Creatinine Estim Creat Clear Calc Estimated GFR POC Glucose 203 H 120 H Fasting Glucose Calcium Total Bilirubin AST ALT Alkaline Phosphatase Total Protein Albumin Preliminary micro results at discharge 09/12/23 18:22 Blood Culture - Preliminary Blood - Venous No growth after 48 hours. 09/12/23 18:40 Blood Culture - Preliminary Blood - Venous No growth after 48 hours. Discharge Plan Discharge Anticipated Discharge Date/Time: 09/15/23 12:33 Patient Disposition: Home Health Service Discharge Diagnosis: COPD exacerbation Referrals: Physician,Unknown J [Primary Care Provider] - 1 Week Discharge Medications: New tramadol 50 mg Tablet 50 mg PO Q6H PRN (Reason: Pain, Moderate(Pain Scale 4-6)) Qty: 20 0RF prednisone 10 mg tablet See Rx Instructions .Route .COMPLEX Qty: 45 0RF Rx Instructions: 10 mg orally; 5 tabs p.o. daily x3 days; 4 tabs p.o. daily x3 days; 3 tabs daily x3 days; 2 tabs daily x3 days; 1 tab daily x3 days Continued omeprazole 20 mg capsule,delayed release(DR/EC) 20 mg PO DAILY@0630 albuterol sulfate 90 mcg/actuation aerosol powdr breath activated 2 inh inhalation Q4-6H PRN (Reason: shortness of breath or wheezing) Qty: 1 0RF multivitamin with folic acid [Daily-Leslie (with folic acid)] 400 mcg tablet 1 tab PO DAILY levothyroxine 88 mcg tablet 88 mcg PO DAILY@0600 topiramate 50 mg tablet 50 mg PO DAILY acetaminophen [Tylenol] 325 mg Tablet 650 mg PO Q6H PRN (Reason: Pain) ipratropium-albuterol 0.5 mg-3 mg(2.5 mg base)/3 mL solution for nebulization 3 ml inhalation QID PRN (Reason: wheezing) topiramate 50 mg tablet 100 mg PO BEDTIME testosterone cypionate 200 mg/mL oil 100 mg IM Q2W ibandronate 150 mg tablet 150 mg PO QMONTH metformin 500 mg tablet 500 mg PO DAILY pyridoxine (vitamin B6) 50 mg tablet 50 mg PO DAILY nabumetone 500 mg tablet 500 mg PO BID PRN (Reason: Pain) mirtazapine 7.5 mg tablet 7.5 mg PO BEDTIME duloxetine 30 mg capsule,delayed release(DR/EC) 30 mg PO DAILY Trelegy Ellipta 200-62.5-25 mcg blister with device 1 inh inhalation DAILY tramadol 50 mg tablet 50 mg PO Q6H PRN (Reason: Pain) cholecalciferol (vitamin D3) 25 mcg (1,000 unit) tablet 50 mcg PO DAILY prednisone 20 mg tablet 20 mg PO DAILY theophylline 400 mg tablet extended release 24 hr 400 mg PO DAILY Qty: 30 6RF Discharge Orders: Discharge Order (Routine); Ordered 09/15/23 Ordered By: Adrian Javier Diet: Advance to usual diet Activity on Discharge: As tolerated Stand Alone Forms: Patient Portal Discharge page Care Plan Goals: Complete prednisone taper as ordered Health Concerns: Attempt to quit smoking as discussed Plan of Treatment: Follow-up PCP as scheduled Assessment: See discharge summary
--- NOTE | 2023-09-15 12:47 | W.MHC.F2F ---
Service Date Service Date: 09/15/23 Encounter Date of encounter: 09/15/23 Encounter: Acute hospitalization for COPD exacerbation Reasons for Services Signs and symptoms assessed: Continue to assess breath sounds in O2 sats Homebound: Leaving the home is medically contraindicated at this time without the asist of a device and/or another person due th the listed conditions above and below. Reason homebound: unsteady gait / fall risk, poor balance / fall risk and shortness of breath at rest Certification: Based on the above findings, I certify that this patient is confined to the home and needs intermittent correction care, physical therapy and/or speech therapy, or continues to need occupational therapy. The patient is under my care, and I have initiated the establishment of the plan of care. The patient will be followed by a physician who will periodically review the plan of care. Time Spent With Patient Time: Total time managing care of this patient today ____ minutes.
--- NOTE | 2023-09-15 13:02 | MHC.CM.PN ---
with interpertator met with pt ,pt does not want a vna when he is dcd dr young
--- NOTE | 2023-09-15 13:03 | MHC.CM.PN ---
pt will be dcd home no servies
== END 2023-09-15 13:57 | disposition home health service (06) | DRG 202 ==
LOC: HO.ED 20:25 → HO.EDOVER 21:21 → HO.S3 09-13 07:49
PROVIDERS: Physician Assistant; Admitting Provider Student in an Organized Health Care Education/Training Program; Emergency Provider Emergency Medicine; Visit Provider Hospitalist
DX: J45.51 Severe persistent asthma with (acute) exacerbation (principal); C34.90 Malignant neoplasm of unspecified part of unspecified bronchus or lung; J44.1 Chronic obstructive pulmonary disease with (acute) exacerbation; Z99.81 Dependence on supplemental oxygen; E03.9 Hypothyroidism, unspecified; E11.9 Type 2 diabetes mellitus without complications; D50.9 Iron deficiency anemia, unspecified; F17.210 Nicotine dependence, cigarettes, uncomplicated; Z71.6 Tobacco abuse counseling; Z20.822 Contact with and (suspected) exposure to COVID-19; Z79.52 Long term (current) use of systemic steroids; Z79.84 Long term (current) use of oral hypoglycemic drugs; Z79.890 Hormone replacement therapy; Z79.899 Other long term (current) drug therapy
CPT/HCPCS: 0241U; 36415; 71045; 80048; 80053; 82803; 82947; 83605; 83880; 84484; 85025; 85610; 85730; 87040; 93005; 94640; 99221; 99285; J0456; J0696; J1650; J2270; J2920; J2930; J3475

== ENCOUNTER → 2023-09-12 20:27 | Outpatient (BNV) | payer MEDICARE, MEDICAID, SELFPAY | PROVIDERS: Admitting Provider Student in an Organized Health Care Education/Training Program; Emergency Provider Emergency Medicine; Visit Provider Student in an Organized Health Care Education/Training Program | DX: J45.51 Severe persistent asthma with (acute) exacerbation (principal); J44.1 Chronic obstructive pulmonary disease with (acute) exacerbation; E11.69 Type 2 diabetes mellitus with other specified complication | CPT/HCPCS: 99222; 99233; 99239; G0180 ==

== ENCOUNTER 2023-10-04 09:40 | Outpatient (RCR) | payer MEDICARE, MEDICAID, SELFPAY ==
--- NOTE | 2022-04-20 10:08 | P.CNHO_ITS ---
Subjective - Subjective Chief complaint: CONSULT FOR: NON-SMALL CELL LUNG CARCINOMA. Patient: new to practice Consult date: 04/20/22 Primary Care Provider: Luz Mccall NP Medical Summary: DIAGNOSIS: Non-small cell lung carcinoma. HPI - Consult Narrative Reason for consult: Consult for: Non-small cell lung carcinoma. Narrative: Raudel Finnegan is a pleasant 76 year old gentleman, with recent bleed diagnosed non-small cell lung carcinoma. His workup has been as follows: CT scan of the chest from 10/21/2021: 1. No evidence of pulmonary emboli 2. Increasing size of 2 right lung masses suspicious for progressive malignancy PET scan from 10/21/2021: 1. A posterior pleural-based FDG avid right lower lobe pulmonary nodule is strongly suspicious for a malignant lesion. 2. A second diaphragmatic right lower lobe pulmonary nodule his mildly FDG avid, also strongly suspicious for malignancy. 3. 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 4. Increased FDG activity in the diaphragm and intercostal muscles bilaterally is evidence of increased respiratory effort. 5. There is a focus of increased FDG activity in the rectosigmoid colon as described above. While this may be physiological, focal appearance is suspicious for malignancy. Correlation with colonoscopy is recommended. 6. No additional abnormalities are present suspicious for other metastatic or malignant lesions. 7. Vascular calcifications including coronary. FNA of the right lung nodule from 02/25/2022: Positive for malignancy, consistent with non-small cell lung carcinoma. Positive for CK7 and TTF 1. Positive for P 63. Napsin A has rare immuno reactivity. CT-guided biopsy of the nodule in the superior segment of the right lower lobe on 04/02/2022 revealed: Non-small cell lung carcinoma. PFTs revealed: If even of 44% and DLCO of 31%. PMH of: COPD, DM, Continued tobacco use despite recurrent hospitalizations for copd exacerbations, hypothyroid During the course of hospitalization patient was also managed for diabetes mellitus x2 with insulin sliding scale and diabetic diet and instructed to resume metformin upon discharge In regard to GERD he had no acute symptoms continue PPI Hypothyroidism continue Synthroid He was admitted to the hospital, back in January. He presented to [facility] ED with complaints of sudden onset dyspnea after he woke up in the morning. not responsive to home inhalers / bronchodilators. Patient endorses a chronic cough, but slightly increased in productivity over the last several days -- whitish/yellow sputum. He denies any fevers or chills. He reports feeling at baseline the preceeding 24 hours prior to ED arrival. He reports compliance with his inhalers / nebulizers. He reports smoking 2-3 cigarettes daily. He denies any sick contacts. He reports that due to the recent cold weather, he has a flare of his asthma. In the ED, the patient was treated with systemic steroids, several nebulized bronchodilators and antibiotics. He remains symptomatic with wheezing/ REED. Hospital course: he was admitted to hospital with persistent symptoms of shortness of breath, wh eezing and cough likely due to acute COPD exacerbation secondary to continued tobacco use and acute bacterial bronchitis, patient treated with IV steroids, scheduled and as needed bronchodilators and azithromycin patient was also continued on theophylline and montelukast. He responded well to above treatment. He seemed to be at baseline. Discharged home on azithromycin to finish a total 5 day course of antibiotics. Recommended to continue home dose of steroids and updraft treatment. He was strongly advised to abstain from smoking. Patient is gradually weaning, currently smoking 5-8 cigarettes, he declined nicotine patch. FAMILY HISTORY: Dad of throat cancer. Brother of lung cancer. There were both smokers. 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 He is not . He has 4 children. He smoked 2-2 and half packs per day. Now down to half a pack a day. ROS: He does feel rather fatigued. No fever chills or night sweats. Appetite is good. He has lost weight. He had headache a couple of days ago. He complains of chest pain and shortness of breath. He has cough with yellow sputum. He denies any abdominal pain nausea vomiting heartburn indigestion. Bowels are working without any gross blood in it. Denies any urinary complaints. He complains of right knee pain radiating down from the back. He has history of pinched nerve. Denies any focal weakness. Denies depression. Denies rashes no pruritus. Review of Systems - Constitutional Reports system reviewed and no additional complaints, except as documented, Reports weakness, Reports weight loss - Eyes Reports system reviewed and no additional complaints, except as documented - ENT Reports system reviewed and no additional complaints, except as documented - Cardiovascular Reports system reviewed and no additional complaints, except as documented, Reports chest pain, Reports shortness of breath with activity - Respiratory Reports no additional respiratory complaints, Reports cough, Reports dyspnea on exertion - Gastrointestinal Reports system reviewed and no additional complaints, except as documented, Denies abdominal pain, Denies belching, Denies black, tarry stools, Denies bloating - Genitourinary Genitourinary: Reports no additional male genitourinary complaints - Musculoskeletal Reports system reviewed and no additional complaints, except as documented - Integumentary/Breasts Skin/Breast: Reports no additional skin complaints - Neurologic Reports system reviewed and no additional complaints, except as documented - Psychiatric Reports system reviewed and no additional complaints, except as documented - Endocrine Reports no additional endocrine complaints - Hematologic/Lymphatic Reports system reviewed and no additional complaints, except as documented - Allergic/Immunologic Reports system reviewed and no additional complaints, except as documented Oncology Screenings - ECOG Performance Status ECOG Performance Status: 0 [facility] Medical History: Medical History (Last Reviewed 05/01/22 @ 08:42 by MITESH Ngo) Abnormal PET scan of colon Asthma Chronic respiratory failure COPD (chronic obstructive pulmonary disease) Diabetes GERD (gastroesophageal reflux disease) Hypertension Hypothyroidism Osteoarthritis Osteoporosis Oxygen dependent Sepsis Tobacco dependence Ureteral calculi Family History: Family History (Last Reviewed 05/01/22 @ 08:42 by MITESH Ngo) Father Throat cancer Brother Lung cancer Other Hypertension Surgical History: Surgical History (Last Reviewed 05/01/22 @ 08:42 by MITESH Ngo) History of appendectomy History of cataract surgery Onset Date: ~2011 History of lithotripsy Onset Date: ~2008 History of lung biopsy Onset Date: ~2021 Social History: Social History (Last Reviewed 05/01/22 @ 08:42 by MITESH Ngo) Living Situation History: Household Members: Spouse Housing: Apartment Are you a primary career development associate to a significant other at home: No Do you presently have visiting nurse or other home services: No Tobacco History: Patient Tobacco Use Status: Current everyday Tobacco Tobacco use type: Cigarette Cigarette Packs Per Day: 0.5 Years Smoked: 50 e-Cigarette/Vaping Use: Currently Using Second Hand Smoke Exposure: No Advance Directives: Advance Directives Date on File: 12/18/20 Occupation Assessmet: service: No Current occupational status: unemployed Current occupational status: retired Home Medications and Allergies Home Medications Medication Instructions Recorded Confirmed Type metformin 500 mg tablet 500 mg PO DAILY 09/28/20 04/20/22 History levothyroxine 112 mcg tablet 112 mcg PO DAILY@0600 12/01/20 04/20/22 History omeprazole 20 mg capsule,delayed 20 mg PO DAILY 12/01/20 04/20/22 History release ipratropium 0.5 mg-albuterol 3 mg 1 vial INHALATION QID PRN 08/06/21 04/20/22 History (2.5 mg base)/3 mL nebulization soln fluticasone fur. 200 mcg-umeclid 1 puff INHALATION DAILY 10/21/21 04/20/22 History 62.5 mcg-vilant 25 mcg inhalat.powder (Trelegy Ellipta) mirtazapine 7.5 mg tablet 7.5 mg PO BEDTIME 11/16/21 04/20/22 History roflumilast 500 mcg tablet 500 mcg PO DAILY 11/16/21 04/20/22 History (Daliresp) duloxetine 30 mg capsule,delayed 1 cap PO DAILY PRN 01/29/22 04/20/22 History release nabumetone 500 mg tablet 1 tab PO BID PRN 01/29/22 04/20/22 History betamethasone valerate 0.1 % 0.1 appl TOPICAL DAILY 02/04/22 04/20/22 History topical ointment multivitamin with folic acid 400 1 tab PO DAILY 04/20/22 04/20/22 History mcg tablet (Daily-Leslie (with folic acid)) prednisone 10 mg tablet 1.5 tab PO DAILY 04/20/22 04/20/22 History topiramate 100 mg tablet 100 mg PO DAILY 04/20/22 04/20/22 History albuterol sulfate 2 mg/5 mL oral 2 mg PO TID 05/01/22 History syrup testosterone cypionate 200 mg/mL mg IM Q2W ml 05/01/22 History intramuscular oil Allergies Allergy/AdvReac Type Severity Reaction Status Date / Time shellfish derived Allergy Severe ANAPHYLAXIS Verified 05/01/22 08:37 [SHELLFISH DERIVED] pollen extracts [POLLEN] Allergy Intermediate RUNNING Verified 05/01/22 08:37 NOSE, WATERY EYES, SNEEZING varenicline [VARENICLINE] AdvReac Unknown PALPITATION Verified 05/01/22 08:37 S Physical Exam - Constitutional Present: mild distress - Routine HEENT Exam Head: Present: normal inspection ENT: Present: mucous membranes moist - Routine Neck Exam Present: supple - Routine Respiratory Exam Present: decreased breath sounds - Routine Cardiovascular Exam Cardiovascular: Present: RRR, S1, S2 - Routine Abdominal Exam Present: normal bowel sounds, nontender - Routine Extremities Exam Present: nontender - Routine Skin Exam Present: intact - Routine Neurological Exam Present: alert, oriented X3, normal speech - Detailed Neurological Exam: Coma Scale Eye Opening: Spontaneous (4) Verbal Response: Oriented (5) Motor Response: Obeys commands (6) [place] Coma Scale Total: 15 - Routine Psychiatric Exam Present: normal affect Hem/Onc Consult Result - Labs CBC & Chem 7: 04/20/22 11:14 04/20/22 11:51 Assessment and Plan Patient Active problem list reviewed?: Yes (1) Lung cancer Problem details: (RLL - non-small cell lung carcinoma - dx 01/2022) Status: Acute Assessment and plan: This is a pleasant 76-year-old gentleman with recent diagnosis of non-small cell lung carcinoma. PET scan from September revealed: 1. A posterior pleural-based FDG avid right lower lobe pulmonary nodule is strongly suspicious for a malignant lesion. 2. A second diaphragmatic right lower lobe pulmonary nodule his mild FDG avid, also strongly suspicious for malignancy. 3. 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 4. Increased FDG activity in the diaphragm and intercostal muscles bilaterally is evidence of increased respiratory effort. 5. There is a focus of increased FDG activity in the rectosigmoid colon as described above. While this may be physiological, focal appearance is suspicious for malignancy. Correlation with colonoscopy is recommended. 6. No additional abnormalities are present suspicious for other metastatic or malignant lesions. 7. Vascular calcifications including coronary. PLAN: A new PET scan is being scheduled by Pulmonary. Meanwhile will set up an appointment with GI for an expedited colonoscopy, to s ort out the question of abnormality in rectosigmoid colon. He actually has an appointment at [facility] for radiation therapy consultation. Will make further plans based upon the PET scan findings. If he has metastatic disease and would be a candidate for systemic therapy. Will check K janie mutational status, if G12C positive he can be a candidate for Sotorsib, if not, than chemotherapy. If disease is still localized, then combined modality therapy with radiation plus chemotherapy. All this is been addressed with him and his . He will return in a couple of weeks for a follow-up. Thank you, Cc: Luz Mccall. Silvano Abad. - Time Spent With Patient Time Spent with Patient (in minutes): 30
[2022-04-20 10:19] VITALS: BP 125/58; PULSE 71; RESP 14; TEMP 36.1; O2SAT 97; BMI 18.3
[2022-04-20 11:16] LABS: MANUAL DIFF FLAG NO
[2022-04-20 11:31] LABS: Basophils Percent Auto 0.4 % (0-2); Eosinophils Absolute Auto 0.2 X10*3/uL (0.0-0.4); Eosinophils Percent Auto 2.1 % (0-4); Hematocrit 38.5 % (42.0-52.0); Hemoglobin 11.4 g/dl (14.0-18.0); Imm Gran Abs Auto 0.03 X10*3/uL (0.00-0.03); Imm Gran Pct Auto 0.4 % (0.0-0.4); Lymphocytes Absolute Auto 1.4 X10*3/uL (1.2-4.9); Mean Corpuscular HGB Conc 29.6 g/dl (31.0-36.0); Mean Corpuscular Hemoglobin 23.9 pg (27.0-33.0); Mean Corpuscular Volume 80.7 fL (80.0-98.0); Mean Platelet Volume 9.6 fL (9.4-12.4); Monocytes Absolute Auto 0.6 X10*3/uL (0.1-1.2); Monocytes Percent Auto 8.3 % (2-11); Neutrophils Absolute Auto 5.2 x10*3/uL (2.0-8.3); Neutrophils Percent Auto 69.8 % (45-73); Platelet Count 412 X10*3/uL (160-400); Red Blood Count 4.77 X10*6/uL (4.60-5.80); Red Cell Distribution Width 17.6 % (11.0-16.0); White Blood Count 7.5 X10*3/uL (4.8-10.8)
[2022-04-20 12:19] LABS: Alanine Aminotransferase 12 U/L (0-40); Albumin Level 4.2 g/dL (3.5-5.0); Alkaline Phosphatase 120 U/L (39-117); Anion Gap 13 (12-20); Aspartate Amino Transferase 14 U/L (5-37); Bilirubin Total 0.4 mg/dL (0.0-1.0); Blood Urea Nitrogen 11 mg/dL (9-16); Calcium 9.3 mg/dL (8.4-10.2); Carbon Dioxide 26 mmol/L (22-29); Chloride 104 mmol/L (96-108); Creatinine Clr Calc Pharmacy 45.1; Estimated Glomerular Filt Rate > 60; Glucose Random 89 mg/dL (60-115); Potassium 4.5 mmol/L (3.3-5.1); Sodium 138 mmol/L (135-145); Total Protein 7.2 g/dL (6.5-8.0)
--- NOTE | 2022-04-20 15:53 | MHC.HEMONCMA ---
Pt was in for consult. Clinical summary reviewed and updated, VSS. Labs were draw. Pt to return in 2 weeks.
--- NOTE | 2022-04-21 09:09 | MHC.HEMONC ---
Dr Davidson's office scheduling PET and made RadOnc Consultation for today at [facility], I confirmed with his office staff.
[2022-05-05 13:33] VITALS: BP 156/85; PULSE 72; RESP 14; TEMP 36.4; O2SAT 98; BMI 18.8
[2022-05-05 13:41] LABS: MANUAL DIFF FLAG NO
--- NOTE | 2022-05-05 13:45 | PM.HEMONCPN ---
Medical Summary - Medical Summary Date of Service: 05/05/22 Chief complaint: Follow-up for: Lung cancer. Medical Summary: DIAGNOSIS: Non-small cell lung carcinoma. Interval History Interval history: Raudel Finnegan is a pleasant 76 year old gentleman, here for a follow-up visit. He tells me that he has been feeling so much better. He had appointment with radiation at [facility] last week. He is rather scared of radiation since a friend within a month of receiving it. His energy level is reasonable. No fever chills or night sweats. Appetite is good. He has started taking Ensure. His weight has stabilized. He denies headache no dizziness.. He complains of chest pain and shortness of breath. He has cough with yellow sputum. He denies any abdominal pain nausea vomiting heartburn indigestion. Bowels are working without any gross blood in it. Denies any urinary complaints. He complains of right knee pain radiating down from the back. He has history of pinched nerve. Denies any focal weakness. Denies depression. Denies rashes no pruritus Presenting history: He was recently diagnosed with non-small cell lung carcinoma. His workup has been as follows: CT scan of the chest from 10/21/2021: 1. No evidence of pulmonary emboli 2. Increasing size of 2 right lung masses suspicious for progressive malignancy PET scan from 10/21/2021: 1. A posterior pleural-based FDG avid right lower lobe pulmonary nodule is strongly suspicious for a malignant lesion. 2. A second diaphragmatic right lower lobe pulmonary nodule his mildly FDG avid, also strongly suspicious for malignancy. 3. 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 4. Increased FDG activity in the diaphragm and intercostal muscles bilaterally is evidence of increased respiratory effort. 5. There is a focus of increased FDG activity in the rectosigmoid colon as described above. While this may be physiological, focal appearance is suspicious for malignancy. Correlation with colonoscopy is recommended. 6. No additional abnormalities are present suspicious for other metastatic or malignant lesions. 7. Vascular calcifications including coronary. FNA of the right lung nodule from 02/25/2022: Positive for malignancy, consistent with non-small cell lung carcinoma. Positive for CK7 and TTF 1. Positive for P 63. Napsin A has rare immuno reactivity. CT-guided biopsy of the nodule in the superior segment of the right lower lobe on 04/02/2022 revealed: Non-small cell lung carcinoma. PFTs revealed: If even of 44% and DLCO of 31%. PMH of: COPD, DM, Continued tobacco use despite recurrent hospitalizations for copd exacerbations, hypothyroid During the course of hospitalization patient was also managed for diabetes mellitus x2 with insulin sliding scale and diabetic diet and instructed to resume metformin upon discharge In regard to GERD he had no acute symptoms continue PPI Hypothyroidism continue Synthroid He was admitted to the hospital, back in January. He presented to [facility] [place] [facility] ED with complaints of sudden onset dyspnea after he woke up in the morning. not responsive to home inhalers / bronchodilators. Patient endorses a chronic cough, but slightly increased in productivity over the last several days -- whitish/yellow sputum. He denies any fevers or chills. He reports feeling at baseline the preceeding 24 hours prior to ED arrival. He reports compliance with his inhalers / nebulizers. He reports smoking 2-3 cigarettes daily. He denies any sick contacts. He reports that due to the recent cold weather, he has a flare of his asthma. In the ED, the patient was treated with systemic steroids, several nebulized bronchodilators and antibiotics. He remains symptomatic with wheezing/ REED. Hospital course: he was admitted to hospital with persistent symptoms of shortness of breath, wheezing and cough likely due to acute COPD exacerbation secondary to continued tobacco use and acute bacterial bronchitis, patient treated with IV steroids, scheduled and as needed bronchodilators and azithromycin patient was also continued on theophylline and montelukast. He responded well to above treatment. He seemed to be at baseline. Discharged home on azithromycin to finish a total 5 day course of antibiotics. Recommended to continue home dose of steroids and updraft treatment. He was strongly advised to abstain from smoking. Patient is gradually weaning, currently smoking 5-8 cigarettes, he declined nicotine patch. FAMILY HISTORY: Dad of throat cancer. Brother of lung cancer. There were both smokers. 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 He is not . He has 4 children. He smoked 2-2 and half packs per day. Now down to half a pack a day. . Review of Systems - Constitutional Reports no additional constitutional complaints - Eyes Reports no additional eye complaints - ENT Reports no additional ear, nose, mouth, and throat complaints - Cardiovascular Reports no additional cardiovascular complaints - Respiratory Reports no additional respiratory complaints - Gastrointestinal Reports no additional gastrointestinal complaints - Genitourinary Genitourinary: Reports no additional male genitourinary complaints - Musculoskeletal Reports no additional musculoskeletal complaints - Integumentary/Breasts Skin/Breast: Reports no additional skin complaints - Neurologic Reports no additional neurologic complaints, Reports weakness - Psychiatric Reports no additional psychiatric complaints - Endocrine Reports no additional endocrine complaints - Hematologic/Lymphatic Reports no additional hematologic/lymphatic complaints - Allergic/Immunologic Reports no additional allergic/immunologic complaints [facility] Medical History: Medical History (Last Reviewed 05/05/22 @ 13:39 by Xuan Norris CMA) Abnormal PET scan of colon Asthma Chronic respiratory failure COPD (chronic obstructive pulmonary disease) Diabetes GERD (gastroesophageal reflux disease) Hypertension Hypothyroidism Osteoarthritis Osteoporosis Oxygen dependent Sepsis Tobacco dependence Ureteral calculi Patient : No Family History: Family History (Last Reviewed 05/05/22 @ 13:39 by Xuan Norris CMA) Father Throat cancer Brother Lung cancer Other Hypertension Surgical History: Surgical History (Last Reviewed 05/05/22 @ 13:39 by Xuan Norris CMA) History of appendectomy History of cataract surgery Onset Date: ~2011 History of lithotripsy Onset Date: ~2008 History of lung biopsy Onset Date: ~2021 Social History: Social History (Last Updated 05/05/22 @ 13:40 by Xuan Norris CMA) Living Situation History: Household Members: Spouse Housing: Apartment Are you a primary wound care coordinator to a significant other at home: No Do you presently have visiting nurse or other home services: No Tobacco History: Patient Tobacco Use Status: Current everyday Tobacco Tobacco use type: Cigarette Cigarette Packs Per Day: 0.5 Years Smoked: 50 e-Cigarette/Vaping Use: Currently Using Second Hand Smoke Exposure: No Advance Directives: Advance Directives Date on File: 12/18/20 Occupation Assessmet: service: No Current occupational status: unemployed Current occupational status: retired Home Medications and Allergies Home Medications Medication Instructions Recorded Confirmed Type metformin 500 mg tablet 500 mg PO DAILY 09/28/20 05/05/22 History levothyroxine 112 mcg tablet 112 mcg PO DAILY@0600 12/01/20 05/05/22 History omeprazole 20 mg capsule,delayed 20 mg PO DAILY 12/01/20 05/05/22 History release ipratropium 0.5 mg-albuterol 3 mg 1 vial INHALATION QID PRN 08/06/21 05/05/22 History (2.5 mg base)/3 mL nebulization soln fluticasone fur. 200 mcg-umeclid 1 puff INHALATION DAILY 10/21/21 05/05/22 History 62.5 mcg-vilant 25 mcg inhalat.powder (Trelegy Ellipta) mirtazapine 7.5 mg tablet 7.5 mg PO BEDTIME 11/16/21 05/05/22 History roflumilast 500 mcg tablet 500 mcg PO DAILY 11/16/21 05/05/22 History (Daliresp) duloxetine 30 mg capsule,delayed 1 cap PO DAILY PRN 01/29/22 05/05/22 History release nabumetone 500 mg tablet 1 tab PO BID PRN 01/29/22 05/05/22 History betamethasone valerate 0.1 % 0.1 appl TOPICAL DAILY 02/04/22 05/05/22 History topical ointment multivitamin with folic acid 400 1 tab PO DAILY 04/20/22 05/05/22 History mcg tablet (Daily-Leslie (with folic acid)) prednisone 10 mg tablet 1.5 tab PO DAILY 04/20/22 05/05/22 History topiramate 100 mg tablet 100 mg PO DAILY 04/20/22 05/05/22 History albuterol sulfate 2 mg/5 mL oral 2 mg PO TID 05/01/22 05/05/22 History syrup testosterone cypionate 200 mg/mL 200 mg IM Q2W ml 05/01/22 05/05/22 History intramuscular oil Allergies Allergy/AdvReac Type Severity Reaction Status Date / Time shellfish derived Allergy Severe ANAPHYLAXIS Verified 05/05/22 13:40 [SHELLFISH DERIVED] pollen extracts [POLLEN] Allergy Intermediate RUNNING Verified 05/05/22 13:40 NOSE, WATERY EYES, SNEEZING varenicline [VARENICLINE] AdvReac Unknown PALPITATION Verified 05/05/22 13:40 S Exam Vital signs: Vital Signs Temp 97.5 F 05/05/22 13:33 Pulse 72 05/05/22 13:33 Resp 14 05/05/22 13:33 BP 156/85 H 05/05/22 13:33 Pulse Ox 98 05/05/22 13:33 Intake & Output 05/04/22 05/05/22 05/05/22 18:59 06:59 18:59 Other: Weight 51.5 kg Weight in Grams 48118 Weight 51.5 kg BMI result Body Mass Index 18.8 - Constitutional Present: mild distress - Routine HEENT Exam Head: Present: normal inspection Eye: Present: normal appearance ENT: Present: mucous membranes moist - Routine Neck Exam Present: full ROM - Routine Respiratory Exam Present: decreased breath sounds - Routine Cardiovascular Exam Cardiovascular: Present: RRR, S1, S2 - Routine Abdominal Exam Present: normal bowel sounds, nontender - Routine Extremities Exam Present: nontender - Routine Back/Spine/Pelvis Exam Back/Spine: Present: full ROM - Routine Skin Exam Present: intact - Routine Neurological Exam Present: alert, oriented X3, normal speech - Detailed Neurological Exam: Coma Scale Eye Opening: Spontaneous (4) - Routine Psychiatric Exam Present: normal affect Data - Labs CBC & Chem 7: 05/05/22 13:39 05/05/22 13:39 Labs: 02/25/22 15:00 EGFR Mutation Routine KRAS Mutation Analysis Routine PD-L1 Pembrolizumab Routine 04/20/22 11:14 Complete Blood Count Auto Diff Stat 04/20/22 11:51 CEA [Carcinoembryonic Antigen] Routine Comprehensive Met. Panel Stat Laboratory Last Values WBC 7.5 X10*3/uL (4.8-10.8) 04/20/22 11:14 RBC 4.77 X10*6/uL (4.60-5.80) 04/20/22 11:14 Hgb 11.4 g/dl (14.0-18.0) L 04/20/22 11:14 Hct 38.5 % (42.0-52.0) L 04/20/22 11:14 MCV 80.7 fL (80.0-98.0) 04/20/22 11:14 MCH 23.9 pg (27.0-33.0) L 04/20/22 11:14 MCHC 29.6 g/dl (31.0-36.0) L 04/20/22 11:14 RDW 17.6 % (11.0-16.0) H 04/20/22 11:14 Plt Count 412 X10*3/uL (160-400) H 04/20/22 11:14 MPV 9.6 fL (9.4-12.4) 04/20/22 11:14 Immature Gran % (Auto) 0.4 % (0.0-0.4) 04/20/22 11:14 Neut % (Auto) 69.8 % (45-73) 04/20/22 11:14 Lymph % (Auto) 19.0 % (20-40) L 04/20/22 11:14 [place] % (Auto) 8.3 % (2-11) 04/20/22 11:14 Eos % (Auto) 2.1 % (0-4) 04/20/22 11:14 Baso % (Auto) 0.4 % (0-2) 04/20/22 11:14 Lymph # (Auto) 1.4 X10*3/uL (1.2-4.9) 04/20/22 11:14 [place] # (Auto) 0.6 X10*3/uL (0.1-1.2) 04/20/22 11:14 Eos # (Auto) 0.2 X10*3/uL (0.0-0.4) 04/20/22 11:14 Baso # (Auto) 0.0 X10*3/uL (0.0-0.2) 04/20/22 11:14 Abs Immat Gran (auto) 0.03 X10*3/uL (0.00-0.03) 04/20/22 11:14 Absolute Neuts (auto) 5.2 x10*3/uL (2.0-8.3) 04/20/22 11:14 Absolute Nucleated RBC 0.000 X10*3/uL (0.0-0.012) 04/20/22 11:14 Nucleated RBC % (auto) 0.0 /100WBC (0.0-0.2) 04/20/22 11:14 Sodium 138 mmol/L (135-145) 04/20/22 11:51 Potassium 4.5 mmol/L (3.3-5.1) 04/20/22 11:51 Chloride 104 mmol/L (96-108) 04/20/22 11:51 Carbon Dioxide 26 mmol/L (22-29) 04/20/22 11:51 Anion Gap 13 (12-20) 04/20/22 11:51 BUN 11 mg/dL (9-16) 04/20/22 11:51 Creatinine 1.02 mg/dL (0.5-1.4) 04/20/22 11:51 Estim Creat Clear Calc 45.1 04/20/22 11:51 Estimated GFR > 60 04/20/22 11:51 Random Glucose 89 mg/dL (60-115) 04/20/22 11:51 Calcium 9.3 mg/dL (8.4-10.2) 04/20/22 11:51 Total Bilirubin 0.4 mg/dL (0.0-1.0) 04/20/22 11:51 AST 14 U/L (5-37) 04/20/22 11:51 ALT 12 U/L (0-40) 04/20/22 11:51 Alkaline Phosphatase 120 U/L (39-117) H 04/20/22 11:51 Total Protein 7.2 g/dL (6.5-8.0) 04/20/22 11:51 Albumin 4.2 g/dL (3.5-5.0) 04/20/22 11:51 Carcinoembryonic Ag 9.50 ng/mL 04/20/22 11:51 EGFR Mutation (PCR) See Note 04/20/22 15:00 PD-L1 (Pembroliz)IHC Res See Note 04/20/22 15:00 K-janie Mutation (PCR) See Note 04/20/22 15:00 Assessment and Plan Patient Active problem list reviewed?: Yes (1) Lung cancer Problem details: (RLL - non-small cell lung carcinoma - dx 01/2022) Status: Acute Assessment and plan: This is a pleasant 76-year-old gentleman with recent diagnosis of non-small cell lung carcinoma. PET scan from September revealed: 1. A posterior pleural-based FDG avid right lower lobe pulmonary nodule is strongly suspicious for a malignant lesion. 2. A second diaphragmatic right lower lobe pulmonary nodule his mild FDG avid, also strongly suspicious for malignancy. 3. 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 4. Increased FDG activity in the diaphragm and intercostal muscles bilaterally is evidence of increased respiratory effort. 5. There is a focus of increased FDG activity in the rectosigmoid colon as described above. While this may be physiological, focal appearance is suspicious for malignancy. Correlation with colonoscopy is recommended. 6. No additional abnormalities are present suspicious for other metastatic or malignant lesions. 7. Vascular calcifications including coronary. PET scan from 04/29 revealed: Abnormal metabolic activity in the largest nodule right lower lobe abutting the posterior pleura. The mass is almost same size, may be slightly larger 1 cm. Metabolic activity has increased suggesting of increased angiogenesis. Second lesion in the right lower lobe posterior medial segment appears cavitary on PET. It has increased in size and increase in metabolic activity slightly. Third lesion calcified left lower lobe no change. Suspect mild early sigmoid diverticulitis. Correlate with clinical exam PLAN: Meanwhile l set up an appointment with GI for an expedited colonoscopy, to sort out the question of abnormality in rectosigmoid colon. He is seeing them on 05/08, at 3 pm. He had his appointment at [facility] for radiation therapy consultation. He initially declined radiation but is now willing to reconsider. If he has metastatic disease and would be a candidate for systemic therapy. Will check K janie mutational status, if G12C positive he can be a candidate for Sotorsib, if not, than chemotherapy. If disease is still localized, then combined modality therapy with radiation plus chemotherapy. All this is been addressed with him. He will return in a couple of weeks for a follow-up. Thank you, Cc: Luz Mccall. Silvano bAad. - Time Spent With Patient Time Spent with Patient (in minutes): 30
[2022-05-05 13:54] LABS: Basophils Percent Auto 0.2 % (0-2); Eosinophils Percent Auto 0.1 % (0-4); Hematocrit 35.8 % (42.0-52.0); Hemoglobin 10.8 g/dl (14.0-18.0); Imm Gran Abs Auto 0.12 X10*3/uL (0.00-0.03); Lymphocytes Percent Auto 7.8 % (20-40); Mean Corpuscular HGB Conc 30.2 g/dl (31.0-36.0); Mean Corpuscular Hemoglobin 24.2 pg (27.0-33.0); Mean Corpuscular Volume 80.1 fL (80.0-98.0); Mean Platelet Volume 9.7 fL (9.4-12.4); Monocytes Absolute Auto 0.6 X10*3/uL (0.1-1.2); Monocytes Percent Auto 4.8 % (2-11); Neutrophils Absolute Auto 10.9 x10*3/uL (2.0-8.3); Neutrophils Percent Auto 86.1 % (45-73); Platelet Count 384 X10*3/uL (160-400); Red Blood Count 4.47 X10*6/uL (4.60-5.80); Red Cell Distribution Width 17.4 % (11.0-16.0); White Blood Count 12.6 X10*3/uL (4.8-10.8)
[2022-05-05 14:09] LABS: Alanine Aminotransferase 11 U/L (0-40); Alkaline Phosphatase 100 U/L (39-117); Anion Gap 13 (12-20); Aspartate Amino Transferase 15 U/L (5-37); Bilirubin Total 0.3 mg/dL (0.0-1.0); Blood Urea Nitrogen 11 mg/dL (9-16); Calcium 9.3 mg/dL (8.4-10.2); Carbon Dioxide 30 mmol/L (22-29); Chloride 102 mmol/L (96-108); Estimated Glomerular Filt Rate > 60; Glucose Random 113 mg/dL (60-115); Sodium 141 mmol/L (135-145); Total Protein 6.6 g/dL (6.5-8.0)
--- NOTE | 2022-05-05 14:15 | MHC.HEMONCMA ---
Pt was in for follow up. Clinical summary reviewed and updated, VSS. Labs were drawn. Pt to return in a few weeks.
--- NOTE | 2022-05-21 14:40 | HE.ONCSEC ---
PATIENT DID NOT ANSWER MY REMINDER CALL FOR HIS APPT 05/22/22 , I LEFT A DETAILED VOICEMAIL OF PATIENT'S APPT DATE AND TIME & CALL BACK # IN CASE IF PT HAS ANY QUESTIONS .
[2022-05-22 11:35] VITALS: BP 109/57; PULSE 84; RESP 14; TEMP 36.6; O2SAT 93; BMI 18.3
[2022-05-22 12:22] LABS: MANUAL DIFF FLAG NO
--- NOTE | 2022-05-22 12:24 | P.PNHO_ITS ---
Medical Summary - Medical Summary Date of Service: 05/22/22 Chief complaint: FOLLOW-UP FOR: NON-SMALL CELL LUNG CARCInoma. Medical Summary: DIAGNOSIS: Non-small cell lung carcinoma. Interval History Interval history: Raudel Finnegan is a pleasant 76 year old gentleman, here for a follow-up visit. He tells me that he has been feeling rather well. His energy level is reasonable. No fever chills or night sweats. Appetite is good. He has started taking Ensure. His weight has stabilized. He felt a headache yestwerday, no dizziness. He complains of chest pain and shortness of breath. He has cough with clear sputum. He denies any abdominal pain nausea vomiting heartburn indigestion. Bowels are working without any gross blood in it. Denies any urinary complaints. He complains of right knee pain radiating down from the back. He has history of pinched nerve. Denies any focal weakness. Denies depression. Denies rashes no pruritus Presenting history: He was recently diagnosed with non-small cell lung carcinoma. His workup has been as follows: CT scan of the chest from 10/21/2021: 1. No evidence of pulmonary emboli 2. Increasing size of 2 right lung masses suspicious for progressive ma lignancy PET scan from 10/21/2021: 1. A posterior pleural-based FDG avid right lower lobe pulmonary nodule is strongly suspicious for a malignant lesion. 2. A second diaphragmatic right lower lobe pulmonary nodule his mildly FDG avid, also strongly suspicious for malignancy. 3. 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 4. Increased FDG activity in the diaphragm and intercostal muscles bilaterally is evidence of increased respiratory effort. 5. There is a focus of increased FDG activity in the rectosigmoid colon as described above. While this may be physiological, focal appearance is suspicious for malignancy. Correlation with colonoscopy is recommended. 6. No additional abnormalities are present suspicious for other metastatic or malignant lesions. 7. Vascular calcifications including coronary. FNA of the right lung nodule from 02/25/2022: Positive for malignancy, consistent with non-small cell lung carcinoma. Positive for CK7 and TTF 1. Positive for P 63. Napsin A has rare immuno reactivity. CT-guided biopsy of the nodule in the superior segment of the right lower lobe on 04/02/2022 revealed: Non-small cell lung carcinoma. PFTs revealed: If even of 44% and DLCO of 31%. PMH of: COPD, DM, Continued tobacco use despite recurrent hospitalizations for copd exacerbations, hypothyroid During the course of hospitalization patient was also managed for diabetes me llitus x2 with insulin sliding scale and diabetic diet and instructed to resume metformin upon discharge In regard to GERD he had no acute symptoms continue PPI Hypothyroidism continue Synthroid He was admitted to the hospital, back in January. He presented to [facility] ED with complaints of sudden onset dyspnea after he woke up in the morning. not responsive to home inhalers / bronchodilators. Patient endorses a chronic cough, but slightly increased in productivity over the last several days -- whitish/yellow sputum. He denies any fevers or chills. He reports feeling at baseline the preceeding 24 hours prior to ED arrival. He reports compliance with his inhalers / nebulizers. He reports smoking 2-3 cigarettes daily. He denies any sick contacts. He reports that due to the recent cold weather, he has a flare of his asthma. In the ED, the patient was treated with systemic steroids, several nebulized bronchodilators and antibiotics. He remains symptomatic with wheezing/ REED. Hospital course: he was admitted to hospital with persistent symptoms of shortness of breath, wheezing and cough likely due to acute COPD exacerbation secondary to continued tobacco use and acute bacterial bronchitis, patient treated with IV steroids, scheduled and as needed bronchodilators and azithromycin patient was also continued on theophylline and montelukast. He responded well to above treatment. He seemed to be at baseline. Discharged home on azithromycin to finish a total 5 day course of antibiotics. Recommended to continue home dose of steroids and updraft treatment. He was strongly advised to abstain from smoking. Patient is gradually weaning, currently smoking 5-8 cigarettes, he declined orion catina patch. FAMILY HISTORY: Dad of throat cancer. Brother of lung cancer. There were both smokers. 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 He is not . He has 4 children. He smoked 2-2 and half packs per day. Now down to half a pack a day. . Review of Systems - Constitutional Reports system reviewed and no additional complaints, except as documented, Denies fever(s), Denies weakness, Denies weight loss - Eyes Reports system reviewed and no additional complaints, except as documented - ENT Reports system reviewed and no additional complaints, except as documented - Cardiovascular Reports system reviewed and no additional complaints, except as documented - Respiratory Reports no additional respiratory complaints, Denies dyspnea - Gastrointestinal Reports system reviewed and no additional complaints, except as documented - Genitourinary Genitourinary: Reports no additional male genitourinary complaints - Musculoskeletal Reports system reviewed and no additional complaints, except as documented - Integumentary/Breasts Skin/Breast: Reports no additional skin complaints - Neurologic Reports system reviewed and no additional complaints, except as documented, Reports weakness - Psychiatric Reports system reviewed and no additional complaints, except as documented - Endocrine Reports no additional endocrine complaints - Hematologic/Lymphatic Reports system reviewed and no additional complaints, except as documented - Allergic/Immunologic Reports system reviewed and no additional complaints, except as documented PMFSH Medical History: Medical History (Last Reviewed 05/28/22 @ 15:19 by Nick Clemente MD) Abnormal PET scan of colon Asthma Chronic respiratory failure COPD (chronic obstructive pulmonary disease) Diabetes GERD (gastroesophageal reflux disease) Hypertension Hypothyroidism Osteoarthritis Osteoporosis Oxygen dependent Sepsis Tobacco dependence Ureteral calculi Functional capacity: wheelchair bound Patient : No Family History: Family History (Last Reviewed 05/28/22 @ 15:19 by Nick Clemente MD) Father Throat cancer Brother Lung cancer Other Hypertension Surgical History: Surgical History (Last Reviewed 05/28/22 @ 15:19 by Nick Clemente MD) History of appendectomy History of cataract surgery Onset Date: ~2011 History of lithotripsy Onset Date: ~2008 History of lung biopsy Onset Date: ~2021 Social History: Social History (Last Reviewed 05/28/22 @ 15:19 by Nick Clemente MD) Living Situation History: Household Members: Spouse Housing: Apartment Are you a primary behavioral health care manager to a significant other at home: No Do you presently have visiting nurse or other home services: No Tobacco History: Patient Tobacco Use Status: Current everyday Tobacco Tobacco use type: Cigarette Cigarette Packs Per Day: 0.5 Years Smoked: 50 e-Cigarette/Vaping Use: Currently Using Second Hand Smoke Exposure: No Advance Directives: Advance Directives: No Advance Directives Information Provided: Yes Advance Directives Date on File: 12/18/20 Occupation Assessmet: service: No Current occupational status: unemployed Current occupational status: retired Oncology Screenings - ECOG Performance Status ECOG Performance Status: 2 Home Medications and Allergies Home Medications Medication Instructions Recorded Confirmed Type metformin 500 mg tablet 500 mg PO DAILY 09/28/20 05/28/22 History levothyroxine 112 mcg tablet 112 mcg PO DAILY@0600 12/01/20 05/28/22 History omeprazole 20 mg capsule,delayed 20 mg PO DAILY@0630 12/01/20 05/28/22 History release ipratropium 0.5 mg-albuterol 3 mg 1 vial inhalation QID PRN asthma 08/06/21 05/28/22 History (2.5 mg base)/3 mL nebulization soln mirtazapine 7.5 mg tablet 7.5 mg PO BEDTIME 11/16/21 05/28/22 History duloxetine 30 mg capsule,delayed 1 cap PO DAILY 01/29/22 05/28/22 History release nabumetone 500 mg tablet 1 tab PO BID PRN knee pain 01/29/22 05/28/22 History multivitamin with folic acid 400 1 tab PO DAILY 04/20/22 05/28/22 History mcg tablet (Daily-Leslie (with folic acid)) prednisone 10 mg tablet 1.5 tab PO DAILY 04/20/22 05/28/22 History montelukast 10 mg tablet 1 tab PO BEDTIME 05/28/22 05/28/22 History Allergies Allergy/AdvReac Type Severity Reaction Status Date / Time shellfish derived Allergy Severe ANAPHYLAXIS Verified 05/22/22 11:40 [SHELLFISH DERIVED] pollen extracts [POLLEN] Allergy Intermediate RUNNING Verified 05/22/22 11:40 NOSE, WATERY EYES, SNEEZING varenicline [VARENICLINE] AdvReac Unknown PALPITATION Verified 05/22/22 11:40 S Exam Vital signs: Vital Signs Temp 97.9 F 05/22/22 11:35 Pulse 84 05/22/22 11:35 Resp 14 05/22/22 11:35 BP 109/57 L 05/22/22 11:35 Pulse Ox 93 05/22/22 11:35 O2 Del Method 05/22/22 11:35 Intake & Output 05/21/22 05/22/22 05/22/22 18:59 06:59 18:59 Other: Weight 50 kg Ayden Weight in Grams [id number] Weight 50 kg BMI result Body Mass Index 18.3 - Constitutional Present: mild distress - Routine HEENT Exam Head: Present: normal inspection Eye: Present: normal appearance ENT: Present: mucous membranes moist - Routine Neck Exam Present: full ROM - Routine Respiratory Exam Present: decreased breath sounds - Routine Cardiovascular Exam Cardiovascular: Present: RRR, S1, S2 - Routine Abdominal Exam Present: normal bowel sounds, nontender - Routine Extremities Exam Present: nontender - Routine Back/Spine/Pelvis Exam Back/Spine: Present: full ROM - Routine Skin Exam Present: intact - Routine Neurological Exam Present: alert, oriented X3, normal speech - Detailed Neurological Exam: Coma Scale Eye Opening: Spontaneous (4) - Routine Psychiatric Exam Present: normal affect Data - Labs CBC & Chem 7: 05/22/22 12:21 05/22/22 12:21 Assessment and Plan Patient Active problem list reviewed?: Yes (1) Lung cancer Problem details: (RLL - non-small cell lung carcinoma - dx 01/2022) Status: Acute Assessment and plan: This is a pleasant 76-year-old gentleman with recent diagnosis of non-small cell lung carcinoma. PET scan from revealed: 1. A posterior pleural-based FDG avid right lower lobe pulmonary nodule is strongly suspicious for a malignant lesion. 2. A second diaphragmatic right lower lobe pulmonary nodule his mild FDG avid, also strongly suspicious for malignancy. 3. 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 4. Increased FDG activity in the diaphragm and intercostal muscles bilaterally is evidence of increased respiratory effort. 5. There is a focus of increased FDG activity in the rectosigmoid colon as described above. While this may be physiological, focal appearance is suspicious for malignancy. Correlation with colonoscopy is recommended. 6. No additional abnormalities are present suspicious for other metastatic or malignant lesions. 7. Vascular calcifications including coronary. PET scan from 04/29 revealed: Abnormal metabolic activity in the largest nodule right lower lobe abutting the posterior pleura. The mass is almost same size, may be slightly larger 1 cm. Metabolic activity has increased suggesting of increased angiogenesis. Second lesion in the right lower lobe posterior medial segment appears cavitary on PET. It has increased in size and increase in metabolic activity slightly. Third lesion calcified left lower lobe no change. Suspect mild early sigmoid diverticulitis. Correlate with clinical exam Immuno studies: EGFR negative. PDL1 negative. He underwent a colonoscopy on 05/20, by GI to sort out the question of abnormality in rectosigmoid colon. This revealed tubular adenomas but nothing worrisome.. He missed his appointment at [facility] for radiation therapy. He initially declined radiation but is now willing to do it. PLAN: A new appointment has been set up with Dr. Fortune. He is a candidate for combined modality therapy. Waiting for K janie mutational status, if G12C positive he can be a candidate for Sotorsib, if not, than chemotherapy. If disease is still localized, then combined modality therapy with radiation plus chemotherapy. All this is been addressed with him. He will return in a couple of weeks for a follow-up. Thank you, Cc: Luz Mccall. Silvano Abad. - Time Spent With Patient Time Spent with Patient (in minutes): 32
[2022-05-22 12:27] LABS: Basophils Percent Auto 0.4 % (0-2); Eosinophils Absolute Auto 0.4 X10*3/uL (0.0-0.4); Hematocrit 37.5 % (42.0-52.0); Hemoglobin 11.4 g/dl (14.0-18.0); Imm Gran Abs Auto 0.02 X10*3/uL (0.00-0.03); Imm Gran Pct Auto 0.3 % (0.0-0.4); Lymphocytes Absolute Auto 1.2 X10*3/uL (1.2-4.9); Lymphocytes Percent Auto 16.3 % (20-40); Mean Corpuscular HGB Conc 30.4 g/dl (31.0-36.0); Mean Corpuscular Hemoglobin 24.4 pg (27.0-33.0); Mean Corpuscular Volume 80.1 fL (80.0-98.0); Mean Platelet Volume 9.2 fL (9.4-12.4); Monocytes Absolute Auto 0.5 X10*3/uL (0.1-1.2); Monocytes Percent Auto 7.3 % (2-11); Neutrophils Percent Auto 69.7 % (45-73); Platelet Count 356 X10*3/uL (160-400); Red Blood Count 4.68 X10*6/uL (4.60-5.80); Red Cell Distribution Width 17.2 % (11.0-16.0); White Blood Count 7.1 X10*3/uL (4.8-10.8)
[2022-05-22 12:52] LABS: Alanine Aminotransferase 9 U/L (0-40); Albumin Level 3.9 g/dL (3.5-5.0); Alkaline Phosphatase 116 U/L (39-117); Anion Gap 12 (12-20); Aspartate Amino Transferase 13 U/L (5-37); Bilirubin Total 0.7 mg/dL (0.0-1.0); Blood Urea Nitrogen 7 mg/dL (9-16); Calcium 9.1 mg/dL (8.4-10.2); Carbon Dioxide 27 mmol/L (22-29); Chloride 103 mmol/L (96-108); Creatinine Clr Calc Pharmacy 57.2; Estimated Glomerular Filt Rate > 60; Glucose Random 97 mg/dL (60-115); Potassium 4.2 mmol/L (3.3-5.1); Sodium 138 mmol/L (135-145); Total Protein 6.6 g/dL (6.5-8.0)
--- NOTE | 2022-05-27 10:43 | MHC.HEMONC ---
Dr Moran did not want pt to wait until June for f/u at [facility]. I called yesterday and they have no earlier appts. Referral made to [facility] at Dr Moran's request. They can see him on 06/05/22 at [address] Bass. Niece notified by Xuan. I will call [facility] and cancel June appt.
[2022-06-05 13:22] VITALS: BP 129/76; PULSE 90; RESP 14; TEMP 36.8; O2SAT 95; BMI 18.4
--- NOTE | 2022-06-05 13:24 | P.PNHO-ONC_ITS ---
Medical Summary - Medical Summary Date of Service: 06/05/22 Chief complaint: Follow-up for: Non-small cell lung carcinoma. Medical Summary: DIAGNOSIS: Non-small cell lung carcinoma. Interval History Interval history: Raudel Finnegan is a pleasant 76 year old gentleman, here for a follow-up visit. He was admitted to the hospital on 05/28, for an overnight stay. Discharge summary: The patient was admitted to the hospital for treatment of COPD exacerbation. Treated with IV steroids , azithromycin and bronchodilator nebulizers with good response as his breathing improved significantly. He was able to ambulate on room air with no reported dyspnea, maintaining his O2 sat in 90s. Was discharged home on azithromycin, prednisone, to continue home nebulizers. Continue prednisone as prescribed. continue azithromycin for the next 3 days. Use your home nebulizer for the next 5 days every 4-6 hours He tells me that he had been feeling quite well. However he is upset since he just got the news that his nephew , in a car accident. His energy level is reasonable. No fever chills or night sweats. Appetite is good. He has started taking Ensure. His weight has stabilized. He denies headaches, nor dizziness. He complains of chest pain and shortness of breath. He denies cough, no sputum. He denies any abdominal pain nausea vomiting heartburn indigestion. Bowels are working without any gross blood in it. Denies any urinary complaints. He complains of right knee pain radiating down from the back. He has history of a pinched nerve. Denies any focal weakness. Denies depression. Denies rashes no pruritus Presenting history: He was recently diagnosed with non-small cell lung carcinoma. His workup has been as follows: CT scan of the chest from 10/21/2021: 1. No evidence of pulmonary emboli 2. Increasing size of 2 right lung masses suspicious for progressive ma lignancy PET scan from 10/21/2021: 1. A posterior pleural-based FDG avid right lower lobe pulmonary nodule is strongly suspicious for a malignant lesion. 2. A second diaphragmatic right lower lobe pulmonary nodule his mildly FDG avid, also strongly suspicious for malignancy. 3. 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 4. Increased FDG activity in the diaphragm and intercostal muscles bilaterally is evidence of increased respiratory effort. 5. There is a focus of increased FDG activity in the rectosigmoid colon as described above. While this may be physiological, focal appearance is suspicious for malignancy. Correlation with colonoscopy is recommended. 6. No additional abnormalities are present suspicious for other metastatic or malignant lesions. 7. Vascular calcifications including coronary. FNA of the right lung nodule from 02/25/2022: Positive for malignancy, consistent with non-small cell lung carcinoma. Positive for CK7 and TTF 1. Positive for P 63. Napsin A has rare immuno reactivity. CT-guided biopsy of the nodule in the superior segment of the right lower lobe on 04/02/2022 revealed: Non-small cell lung carcinoma. PFTs revealed: If even of 44% and DLCO of 31%. PMH of: COPD, DM, Continued tobacco use despite recurrent hospitalizations for copd exacerbations, hypothyroid During the course of hospitalization patient was also managed for diabetes me llitus x2 with insulin sliding scale and diabetic diet and instructed to resume metformin upon discharge In regard to GERD he had no acute symptoms continue PPI Hypothyroidism continue Synthroid He was admitted to the hospital, back in January. He presented to [facility] ED with complaints of sudden onset dyspnea after he woke up in the morning. not responsive to home inhalers / bronchodilators. Patient endorses a chronic cough, but slightly increased in productivity over the last several days -- whitish/yellow sputum. He denies any fevers or chills. He reports feeling at baseline the preceeding 24 hours prior to ED arrival. He reports compliance with his inhalers / nebulizers. He reports smoking 2-3 cigarettes daily. He denies any sick contacts. He reports that due to the recent cold weather, he has a flare of his asthma. In the ED, the patient was treated with systemic steroids, several nebulized bronchodilators and antibiotics. He remains symptomatic with wheezing/ REED. Hospital course: he was admitted to hospital with persistent symptoms of shortness of breath, wheezing and cough likely due to acute COPD exacerbation secondary to continued tobacco use and acute bacterial bronchitis, patient treated with IV steroids, scheduled and as needed bronchodilators and azithromycin patient was also continued on theophylline and montelukast. He responded well to above treatment. He seemed to be at baseline. Discharged home on azithromycin to finish a total 5 day course of antibiotics. Recommended to continue home dose of steroids and updraft treatment. He was strongly advised to abstain from smoking. Patient is gradually weaning, currently smoking 5-8 cigarettes, he declined orion catina patch. FAMILY HISTORY: Dad of throat cancer. Brother of lung cancer. There were both smokers. 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 He is not . He has 4 children. He smoked 2-2 and half packs per day. Now down to half a pack a day. . Review of Systems - Constitutional Reports system reviewed and no additional complaints, except as documented, Denies fatigue, Denies weakness, Denies weight gain, Denies weight loss - Eyes Reports system reviewed and no additional complaints, except as documented - ENT Reports system reviewed and no additional complaints, except as documented - Cardiovascular Reports system reviewed and no additional complaints, except as documented - Respiratory Reports no additional respiratory complaints, Reports dyspnea - Gastrointestinal Reports system reviewed and no additional complaints, except as documented - Genitourinary Genitourinary: Reports no additional male genitourinary complaints - Musculoskeletal Reports system reviewed and no additional complaints, except as documented - Integumentary/Breasts Skin/Breast: Reports no additional skin complaints - Neurologic Reports system reviewed and no additional complaints, except as documented, Denies weakness - Psychiatric Reports system reviewed and no additional complaints, except as documented - Endocrine Reports no additional endocrine complaints - Hematologic/Lymphatic Reports system reviewed and no additional complaints, except as documented - Allergic/Immunologic Reports system reviewed and no additional complaints, except as documented PMFSH Medical History: Medical History (Last Reviewed 06/06/22 @ 08:59 by Ricardo Mclaughlin MD) Abnormal PET scan of colon Asthma Chronic respiratory failure COPD (chronic obstructive pulmonary disease) Diabetes GERD (gastroesophageal reflux disease) Hypertension Hypothyroidism Osteoarthritis Osteoporosis Oxygen dependent Sepsis Tobacco dependence Ureteral calculi Functional capacity: wheelchair bound Patient : No Family History: Family History (Last Reviewed 06/06/22 @ 08:59 by Ricardo Mclaughlin MD) Father Throat cancer Brother Lung cancer Other Hypertension Surgical History: Surgical History (Last Reviewed 06/06/22 @ 08:59 by Ricardo Mclaughlin MD) History of appendectomy History of cataract surgery Onset Date: ~2011 History of lithotripsy Onset Date: ~2008 History of lung biopsy Onset Date: ~2021 Social History: Social History (Last Reviewed 06/06/22 @ 08:59 by Ricardo Mclaughlin MD) Living Situation History: Household Members: Spouse Housing: Apartment Are you a primary rn progressive care to a significant other at home: No Do you presently have visiting nurse or other home services: No Tobacco History: Patient Tobacco Use Status: Current everyday Tobacco Tobacco use type: Cigarette Cigarette Packs Per Day: 0.5 Years Smoked: 50 e-Cigarette/Vaping Use: Currently Using Second Hand Smoke Exposure: No Advance Directives: Advance Directives Date on File: 12/18/20 Occupation Assessmet: service: No Current occupational status: unemployed Current occupational status: retired Oncology Screenings - ECOG Performance Status ECOG Performance Status: 1 Home Medications and Allergies Home Medications Medication Instructions Recorded Confirmed Type metformin 500 mg tablet 500 mg PO DAILY 09/28/20 06/06/22 History levothyroxine 112 mcg tablet 112 mcg PO DAILY@0600 12/01/20 06/06/22 History omeprazole 20 mg capsule,delayed 20 mg PO DAILY@0630 12/01/20 06/06/22 History release ipratropium 0.5 mg-albuterol 3 mg 1 vial inhalation QID PRN asthma 08/06/21 06/06/22 History (2.5 mg base)/3 mL nebulization soln mirtazapine 7.5 mg tablet 7.5 mg PO BEDTIME 11/16/21 06/06/22 History duloxetine 30 mg capsule,delayed 1 cap PO DAILY 01/29/22 06/06/22 History release nabumetone 500 mg tablet 1 tab PO BID PRN knee pain 01/29/22 06/06/22 History multivitamin with folic acid 400 1 tab PO DAILY 04/20/22 06/06/22 History mcg tablet (Daily-Leslie (with folic acid)) montelukast 10 mg tablet 1 tab PO BEDTIME 05/28/22 06/06/22 History prednisone 10 mg tablet 10 mg PO DAILY 06/06/22 06/06/22 History Allergies Allergy/AdvReac Type Severity Reaction Status Date / Time shellfish derived Allergy Severe ANAPHYLAXIS Verified 06/05/22 13:27 [SHELLFISH DERIVED] pollen extracts [POLLEN] Allergy Intermediate RUNNING Verified 06/05/22 13:27 NOSE, WATERY EYES, SNEEZING varenicline [VARENICLINE] AdvReac Unknown PALPITATION Verified 06/05/22 13:27 S Exam Vital signs: Vital Signs Temp 97.9 F 05/22/22 11:35 Pulse 84 05/22/22 11:35 Resp 14 05/22/22 11:35 BP 109/57 L 05/22/22 11:35 Pulse Ox 93 05/22/22 11:35 O2 Del Method 05/22/22 11:35 Weight 50 kg BMI result Body Mass Index 18.3 - Constitutional Present: mild distress - Routine HEENT Exam Head: Present: normal inspection Eye: Present: normal appearance ENT: Present: mucous membranes moist - Routine Neck Exam Present: full ROM - Routine Respiratory Exam Present: decreased breath sounds - Routine Cardiovascular Exam Cardiovascular: Present: RRR, S1, S2 - Routine Abdominal Exam Present: normal bowel sounds, nontender - Routine Extremities Exam Present: nontender - Routine Back/Spine/Pelvis Exam Back/Spine: Present: full ROM - Routine Skin Exam Present: intact - Routine Neurological Exam Present: alert, oriented X3, normal speech - Detailed Neurological Exam: Coma Scale Eye Opening: Spontaneous (4) - Routine Psychiatric Exam Present: normal affect Data - Labs CBC & Chem 7: 05/22/22 12:21 05/22/22 12:21 Assessment and Plan Patient Active problem list reviewed?: Yes (1) Lung cancer Problem details: (RLL - non-small cell lung carcinoma - dx 01/2022) Status: A cute Assessment and plan: This is a pleasant 76-year-old gentleman with recent diagnosis of non-small cell lung carcinoma. PET scan from September, revealed: 1. A posterior pleural-based FDG avid right lower lobe pulmonary nodule is strongly suspicious for a malignant lesion. 2. A second diaphragmatic right lower lobe pulmonary nodule his mild FDG avid, also strongly suspicious for malignancy. 3. 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 4. Increased FDG activity in the diaphragm and intercostal muscles bilaterally is evidence of increased respiratory effort. 5. There is a focus of increased FDG activity in the rectosigmoid colon as described above. While this may be physiological, focal appearance is suspicious for malignancy. Correlation with colonoscopy is recommended. 6. No additional abnormalities are present suspicious for other metastatic or malignant lesions. 7. Vascular calcifications including coronary. PET scan from 04/29 revealed: Abnormal metabolic activity in the largest nodule right lower lobe abutting the posterior pleura. The mass is almost same size, may be slightly larger 1 cm. Metabolic activity has increased suggesting of increased angiogenesis. Second lesion in the right lower lobe posterior medial segment appears cavitary on PET. It has increased in size and increase in metabolic activity slightly. Third lesion calcified left lower lobe no change. Suspect mild early sigmoid diverticulitis. Correlate with clinical exam Immuno studies: EGFR negative. PDL1 negative. K janie mutational status, G12C is negative. He underwent a colonoscopy on 05/20, by GI to sort out the question of abnormality in rectosigmoid colon. This revealed tubular adenomas but nothing worrisome.. Database: 05/29: CBC: WBC: 9, HGB 10.4, HCT 34.4, PLT 394. CMP: Lytes WNL, glucose 139, BUN 17, FRUIT BUYER 0.9. A lb 3.8. Ca L8 0.9. CEA 9.90. LFTs: 0.4/104/12/11. He initially declined radiation but is now willing to do it. He was seen at [facility] for radiation therapy consultation, today. PLAN: He is a candidate for SBRT therapy. The recommendation is to treat him with 5 fractions to each right lung nodule, g iven every other day, over 2-4 weeks, (can be treated simultaneously or sequentially.) This is been addressed with him. He had to ploanco out of here for another appointment. He will return in a week for a follow-up. Thank you, Cc: Luz Mccall. Silvano Abad. Addendum: Pt. missed his appointment with Dr. Fortune. He came here by mistake. Dr. Fortune graciously spoke with him via historic interpreter at length about the benefit of radiation in terms of curing him and the urgency of starting treatment. However, pt declined. He had a nephew who succumbed to complications of radiation so he doesn't wish t o procedd. We called him the following day and tried to convince him however he did not budge. He was getting angry at our persistence. The returhn has been left open. - Time Spent With Patient Time Spent with Patient (in minutes): 30
--- NOTE | 2022-06-05 14:48 | MHC.HEMONCMA ---
Addendum entered by Xuan Norris CMA 06/05/22 14:52: Pt to return in 1 month. Original Note: Pt was in for follow up. Clinical summary reviewed and updated, VSS. Pt to return in 3 months.
--- NOTE | 2022-06-08 11:41 | HO.HEMONCSCH ---
MRI sent to [facility].
--- NOTE | 2022-06-10 10:12 | MHC.HEMONC ---
Dr Colindres called this morning to say that pt [facility]. He had apparently changed his mind and wanted to go with [facility] [employer] [facility] per his appt with Dr Moran last week.Dr Bryant and I tried calling pt unsuccessfully this morning. He arrived at our office at approx 10 am. He wasn't sure where he had an appt this morning. Maria Esther explained to him that it was at [facility] for Radiation planning. He said I do not want Radiation per Maria Esther. I was able to get Dr Bryant on the phone with pt and Maria Esther to discuss appointment there. He repeatedly said :in [place] I do not want any Radiation - my family said NO RADIATION because of what my nephew went through . Dr Bryant was unable to put his fears aside so we let him know if he changes his mind she would see him. While pt was here, Rosalia hawkins [facility] was here and confirmed that pt is refusing Radiation. Pt was reminded of his f/u here with Dr Moran in June.
--- NOTE | 2022-06-10 10:36 | MHC.HEMONCSW ---
HEALTH CARE PROXY COMPLETED, NAMED SISTER AND SON
--- NOTE | 2022-06-10 10:36 | MHC.HEMONCSW ---
HCP....SISTER...STEVE LOPEZ [address] [place] [address] AND SON.. MORALES MUELLER JR. [phone]
--- NOTE | 2022-06-11 11:09 | MHC.HEMONCMA ---
Spoke with pt with [facility] and we ask pt if he was sure he did not want to do radiation, and pt still refusing. He was advise that he has a small cancer that with radiation it will remove the cancer but pt still refused.
--- NOTE | 2022-07-15 13:46 | HE.ONCSEC ---
PATIENT'S FAMILY MEMBER CALLED TO RESCHEDULE PATIENT'S APPT . I RESCHEDULED ON THE PHONE WITH PATIENT'S RELATIVE FOR HIS FOLLOW UP . PATIENT IS TO BE SEEN ON 07/24/22 .
[2022-07-24 15:53] LABS: Basophils Percent Auto 0.1 % (0-2); Hematocrit 33.6 % (42.0-52.0); Hemoglobin 10.1 g/dl (14.0-18.0); Imm Gran Abs Auto 0.09 X10*3/uL (0.00-0.03); Imm Gran Pct Auto 1.1 % (0.0-0.4); Lymphocytes Absolute Auto 0.3 X10*3/uL (1.2-4.9); Lymphocytes Percent Auto 3.9 % (20-40); MANUAL DIFF FLAG SCAN; Mean Corpuscular HGB Conc 30.1 g/dl (31.0-36.0); Mean Corpuscular Hemoglobin 24.1 pg (27.0-33.0); Mean Corpuscular Volume 80.2 fL (80.0-98.0); Mean Platelet Volume 9.6 fL (9.4-12.4); Monocytes Absolute Auto 0.2 X10*3/uL (0.1-1.2); Monocytes Percent Auto 2.3 % (2-11); Neutrophils Absolute Auto 7.5 x10*3/uL (2.0-8.3); Neutrophils Percent Auto 92.6 % (45-73); Platelet Count 411 X10*3/uL (160-400); Red Blood Count 4.19 X10*6/uL (4.60-5.80); Red Cell Distribution Width 15.9 % (11.0-16.0); SCAN SMEAR FLAG 1; White Blood Count 8.1 X10*3/uL (4.8-10.8)
[2022-07-24 16:03] LABS: Alanine Aminotransferase 6 U/L (0-40); Albumin Level 3.7 g/dL (3.5-5.0); Alkaline Phosphatase 97 U/L (39-117); Anion Gap 16 (12-20); Aspartate Amino Transferase 9 U/L (5-37); Bilirubin Total 0.3 mg/dL (0.0-1.0); Blood Urea Nitrogen 8 mg/dL (9-16); Calcium 8.4 mg/dL (8.4-10.2); Carbon Dioxide 24 mmol/L (22-29); Chloride 107 mmol/L (96-108); Creatinine Clr Calc Pharmacy 51.2; Estimated Glomerular Filt Rate > 60; Glucose Random 256 mg/dL (60-115); Potassium 4.2 mmol/L (3.3-5.1); Sodium 143 mmol/L (135-145)
[2022-07-24 16:12] LABS: SLIDE REVIEW VERIFIED
--- NOTE | 2023-06-29 10:17 | P.PNHO-ONC_ITS ---
Medical Summary - Medical Summary Date of Service: 06/29/23 Chief complaint: Follow-up for: Non-small cell lung carcinoma. Primary Care Provider: Luz Mccall NP Medical Summary: DIAGNOSIS: Non-small cell lung carcinoma. Interval History Interval history: Raudel Finnegan is a pleasant 76 year old gentleman, here for a follow-up visit after more than a year's hiatus. He has not been doing too well as of late. He had a CT scan of the chest from 04/12 which revealed: 1. No evidence of pulmonary emboli. 2. Multiple pleural-based masses in the right hemithorax. One of these has decreased in size but the others have increased in size. VTE: negative. He was admitted to the hospital on 06/17. 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 Patient states he has been having wheezing, dyspnea worse with exertion and cough with clear sputum production that has been ongoing for the last 3-4 days. It is progressive and got worse. He continues to smoke tobacco. Patient has refused therapy for lung cancer. He denies fever, chills, chest discomfort, palpitations, abdominal pain, changes in urinary or bowel habits. In the emergency department, patient with dyspnea and tachypnea despite multiple DuoNeb treatments. Chest x-ray from 06/17 revealed: Within a background of complex right hemithoracic pleural-based masses, best seen on prior CT from 04/12/2023, there is suggestion of increased interstitial thickening suspicious for an acute infectious/inflammatory process. A short-term follow-up chest CT is recommended to ensure improvement and rule out progression of the masses. He tells me that he has not been feeling too well. His energy level is reasonable. No fever chills or night sweats. He denies headaches, nor dizziness. He complains of chest pain and shortness of breath. He denies cough, no sputum. He denies any abdominal pain nausea vomiting heartburn indigestion. Bowels are working without any gross blood in it. Appetite is good. He has been taking Ensure. His weight has stabilized. Denies any urinary complaints. He complains of right knee pain radiating down from the back. He has history of a pinched nerve. Denies any focal weakness. Denies depression. Denies rashes no pruritus INTERIM HISTORY: He was admitted to the hospital on 05/28/22, for an overnight stay. Discharge summary: The patient was admitted to the hospital for treatment of COPD exacerbation. Treated with IV steroids , azithromycin and bronchodilator nebulizers with good response as his breathing improved significantly. He was able to ambulate on room air with no reported dyspnea, maintaining his O2 sat in 90s. Was discharged home on azithromycin, prednisone, to continue ho me nebulizers. Continue prednisone as prescribed. continue azithromycin for the next 3 days. Use your home nebulizer for the next 5 days every 4-6 hours Presenting history: He was recently diagnosed with non-small cell lung carcinoma. His workup has been as follows: CT scan of the chest from 10/21/2021: 1. No evidence of pulmonary emboli 2. Increasing size of 2 right lung masses suspicious for progressive malignancy PET scan from 10/21/2021: 1. A posterior pleural-based FDG avid right lower lobe pulmonary nodule is strongly suspicious for a malignant lesion. 2. A second diaphragmatic right lower lobe pulmonary nodule his mildly FDG avid, also strongly suspicious for malignancy. 3. 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 4. Increased FDG activity in the diaphragm and intercostal muscles bilaterally is evidence of increased respiratory effort. 5. There is a focus of increased FDG activity in the rectosigmoid colon as described above. While this may be physiological, focal appearance is suspicious for malignancy. Correlation with colonoscopy is recommended. 6. No additional abnormalities are present suspicious for other metastatic or malignant lesions. 7. Vascular calcifications including coronary. FNA of the right lung nodule from 02/25/2022: Positive for malignancy, consistent with non-small cell lung carcinoma. Positive for CK7 and TTF 1. Positive for P 63. Napsin A has rare immuno reactivity. CT-guided biopsy of the nodule in the superior segment of the right lower lobe on 04/02/2022 revealed: Non-small cell lung carcinoma. PFTs revealed: If even of 44% and DLCO of 31%. PMH of: COPD, DM, Continued tobacco use despite recurrent hospitalizations for copd exacerbations, hypothyroid During the course of hospitalization patient was also managed for diabetes mellitus x2 with insulin sliding scale and diabetic diet and instructed to resume metformin upon discharge In regard to GERD he had no acute symptoms continue PPI Hypothyroidism continue Synthroid He was admitted to the hospital, back in January. He presented to [facility] [place] ED with complaints of sudden onset dyspnea after he woke up in the morning. not responsive to home inhalers / bronchodilators. Patient endorses a chronic cough, but slightly increased in productivity over the last several days -- whitish/yellow sputum. He denies any fevers or chills. He reports feeling at baseline the preceeding 24 hours prior to ED arrival. He reports compliance with his inhalers / nebulizers. He reports smoking 2-3 cigarettes daily. He denies any sick contacts. He reports that due to the recent cold weather, he has a flare of his asthma. In the ED, the patient was treated with systemic steroids, several nebulized bronchodilators and antibiotics. He remains symptomatic with wheezing/ REED. Hospital course: he was admitted to hospital with persistent symptoms of shortness of breath, wheezing and cough likely due to acute COPD exacerbation secondary to continued tobacco use and acute bacterial bronchitis, patient treated with IV steroids, scheduled and as needed bronchodilators and azithromycin patient was also continued on theophylline and montelukast. He responded well to above treatment. He seemed to be at baseline. Discharged home on azithromycin to finish a total 5 day course of antibiotics. Recommended to continue home dose of steroids and updraft treatment. He was strongly advised to abstain from smoking. Patient is gradually weaning, currently smoking 5-8 cigarettes, he declined nicotine patch. FAMILY HISTORY: Dad of throat cancer. Brother of lung cancer. There were both smokers. 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 He is not . He has 4 children. He smoked 2-2 and half packs per day. Now down to half a pack a day. . Review of Systems - Constitutional Reports system reviewed and no additional complaints, except as documented - Eyes Reports system reviewed and no additional complaints, except as documented - ENT Reports system reviewed and no additional complaints, except as documented - Cardiovascular Reports system reviewed and no additional complaints, except as documented - Respiratory Reports no additional respiratory complaints - Gastrointestinal Reports system reviewed and no additional complaints, except as documented - Genitourinary Genitourinary: Reports no additional male genitourinary complaints - Musculoskeletal Reports system reviewed and no additional complaints, except as documented - Integumentary/Breasts Skin/Breast: Reports no additional skin complaints - Neurologic Reports system reviewed and no additional complaints, except as documented, Denies weakness - Psychiatric Reports system reviewed and no additional complaints, except as documented - Endocrine Reports no additional endocrine complaints - Hematologic/Lymphatic Reports system reviewed and no additional complaints, except as documented - Allergic/Immunologic Reports system reviewed and no additional complaints, except as documented [facility] Medical History: Medical History (Last Reviewed 07/02/23 @ 05:36 by Tanya Morel MD) Abnormal PET scan of colon Asthma Chronic respiratory failure COPD (chronic obstructive pulmonary disease) Diabetes GERD (gastroesophageal reflux disease) Hypertension Hypothyroidism Osteoarthritis Osteoporosis Oxygen dependent Sepsis Tobacco dependence Ureteral calculi Functional capacity: wheelchair bound Patient : No Family History: Family History (Last Reviewed 07/02/23 @ 05:36 by Tanya Morel MD) Father Throat cancer Brother Lung cancer Other Hypertension Surgical History: Surgical History (Last Reviewed 07/02/23 @ 05:36 by Tanya Morel MD) History of appendectomy History of cataract surgery Onset Date: ~2011 History of lithotripsy Onset Date: ~2008 History of lung biopsy Onset Date: ~2021 Social History: Social History (Last Reviewed 07/02/23 @ 05:36 by Tanya Morel MD) Living Situation History: Household Members: Spouse Housing: Apartment Are you a primary pet care assistant to a significant other at home: No Do you presently have visiting nurse or other home services: No Tobacco History: Patient Tobacco Use Status: Current everyday Tobacco Tobacco use type: Cigarette Cigarette Packs Per Day: 0.5 Cigarettes Per Day: 7 Years Smoked: 60 e-Cigarette/Vaping Use: Currently Using Second Hand Smoke Exposure: No Advance Directives: Advance Directives Date on File: 12/18/20 Occupation Assessmet: service: No Current occupational status: unemployed Current occupational status: retired Oncology Screenings - ECOG Performance Status ECOG Performance Status: 2 Home Medications and Allergies Home Medications Medication Instructions Recorded Confirmed Type metformin 500 mg tablet 500 mg PO DAILY 09/28/20 07/02/23 History omeprazole 20 mg capsule,delayed 20 mg PO DAILY@0630 12/01/20 07/02/23 History release nabumetone 500 mg tablet 1 tab PO BID PRN knee pain 01/29/22 07/02/23 History fluticasone fur. 200 mcg-umeclid 1 puff inhalation DAILY 08/28/22 07/02/23 History 62.5 mcg-vilant 25 mcg inhalat.powder (Trelegy Ellipta) multivitamin with folic acid 400 1 tab PO DAILY 08/28/22 07/02/23 History mcg tablet (Daily-Leslie (with folic acid)) levothyroxine 88 mcg tablet 88 mcg PO DAILY@0600 06/17/23 07/02/23 History acetaminophen 325 mg tablet 650 mg PO Q6H PRN Pain 06/18/23 07/02/23 History (Tylenol) cholecalciferol (vitamin D3) 25 25 mcg PO DAILY 06/18/23 07/02/23 History mcg (1,000 unit) tablet topiramate 50 mg tablet 50 mg PO DAILY 06/18/23 07/02/23 History mirtazapine 7.5 mg tablet 7.5 mg PO BEDTIME 06/29/23 07/02/23 History oxycodone 5 mg tablet 5 mg PO BID PRN Pain 06/29/23 07/02/23 History ipratropium 0.5 mg-albuterol 3 mg 3 ml inhalation QID PRN wheezing 07/02/2303/21 History (2.5 mg base)/3 mL nebulization soln topiramate 50 mg tablet 100 mg PO BEDTIME 07/02/23 07/02/23 History Allergies Allergy/AdvReac Type Severity Reaction Status Date / Time shellfish derived Allergy Severe ANAPHYLAXIS Verified 06/29/23 10:27 [SHELLFISH DERIVED] pollen extracts [POLLEN] Allergy Intermediate RUNNING Verified 06/29/23 10:27 NOSE, WATERY EYES, SNEEZING varenicline [VARENICLINE] AdvReac Unknown PALPITATION Verified 06/29/23 10:27 S Exam Vital signs: Vital Signs Temp 98.3 F 06/05/22 13:22 Pulse 90 06/05/22 13:22 Resp 14 06/05/22 13:22 BP 129/76 06/05/22 13:22 Pulse Ox 95 06/05/22 13:22 O2 Del Method Room Air 06/05/22 13:22 Weight 50.3 kg BMI result Body Mass Index 18.4 - Constitutional Present: mild distress - Routine HEENT Exam Head: Present: normal inspection Eye: Present: normal appearance ENT: Present: mucous membranes moist - Routine Neck Exam Present: full ROM - Routine Respiratory Exam Present: decreased breath sounds - Routine Cardiovascular Exam Cardiovascular: Present: RRR, S1, S2 - Routine Abdominal Exam Present: normal bowel sounds, nontender - Routine Extremities Exam Present: nontender - Routine Back/Spine/Pelvis Exam Back/Spine: Present: full ROM - Routine Skin Exam Present: intact - Routine Neurological Exam Present: alert, oriented X3, normal speech - Detailed Neurological Exam: Coma Scale Eye Opening: Spontaneous (4) - Routine Psychiatric Exam Present: normal affect Data - Labs CBC & Chem 7: 06/29/23 10:21 06/29/23 10:21 Assessment and Plan Patient Active problem list reviewed?: Yes (1) Lung cancer Status: Acute Assessment and plan: This is a pleasant 76-year-old gentleman with recent diagnosis of non-small cell lung carcinoma. PET scan from September, revealed: 1. A posterior pleural-based FDG avid right lower lobe pulmonary nodule is strongly suspicious for a malignant lesion. 2. A second diaphragmatic right lower lobe pulmonary nodule his mild FDG avid, also strongly suspicious for malignancy. 3. 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 4. Increased FDG activity in the diaphragm and intercostal muscles bilaterally is evidence of increased respiratory effort. 5. There is a focus of increased FDG activity in the rectosigmoid colon as described above. While this may be physiological, focal appearance is suspicious for malignancy. Correlation with colonoscopy is recommended. 6. No additional abnormalities are present suspicious for other metastatic or malignant lesions. 7. Vascular calcifications including coronary. PET scan from 04/29 revealed: Abnormal metabolic activity in the largest nodule right lower lobe abutting the posterior pleura. The mass is almost same size, may be slightly larger 1 cm. Metabolic activity has increased suggesting of increased angiogenesis. Second lesion in the right lower lobe posterior medial segment appears cavitary on PET. It has increased in size and increase in metabolic activity slightly. Third lesion calcified left lower lobe no change. Suspect mild early sigmoid diverticulitis. Correlate with clinical exam Immuno studies: EGFR negative. PDL1 negative. K janie mutational status, G12C is negative. He underwent a colonoscopy on 05/20, by GI to sort out the question of abnormality in rectosigmoid colon. This revealed tubular adenomas but nothing w orrisome.. Database: 05/29: CBC: WBC: 9, HGB 10.4, HCT 34.4, PLT 394. 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 A lb 3.8. Ca L8 0.9. CEA 9.90. LFTs: 0.4/104/12/11. He was deemed a candidate for SBRT therapy. He initially declined radiation but then was willing to do it. He was seen at [facility] for radiation therapy consultation. He was then referred to [facility]. The recommendation is to treat him with 5 fractions to each right lung nodule, given every other day, over 2-4 weeks, (can be treated simultaneously or sequentially.) Pt. missed his appointment with Dr. Fortune. He ended up here by mistake. Dr. Fortune graciously spoke with him via investor relations specialist at length about the benefit of radiation in terms of curing him and the urgency of starting treatment. However, he declined. He had a nephew who succumbed to complications of radiation so he doesn't wish to proceed. We called him the following day and tried to convince him however he did not budge. He was getting angry at our persistence. He has not been doing too well as of late. He had a CT scan of the chest from 04/12 which revealed: 1. No evidence of pulmonary emboli. 2. Multiple pleural-based masses in the right hemithorax. One of these has decreased in size but the others have increased in size. VTE: negative. He was admitted to the hospital on 06/17. 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 Patient states he has been having wheezing, dyspnea worse with exertion and cough with clear sputum production that has been ongoing for the last 3-4 days. It is progressive and got worse. He continues to smoke tobacco. Patient has refused therapy for lung cancer. He denies fever, chills, chest discomfort, palpitations, abdominal pain, changes in urinary or bowel habits. In the emergency department, patient with dyspnea and tachypnea despite multiple DuoNeb treatments. Chest x-ray from 06/17 revealed: Within a background of complex right hemithoracic pleural-based masses, best seen on prior CT from 04/12/2023, there is suggestion of increased interstitial thickening suspicious for an acute infectious/inflammatory process. A short-term follow-up chest CT is recommended to ensure improvement and rule out progression of the masses. My concern is disease progression. PLAN: I will proceed with a CT scan of the chest for further evaluation. (scheduled for 07/28.) If that confirms progression, will proceed with a CT-guided biopsy of 1 of the pleural based masses. Meanwhile he has been prescribed Tylenol, nabumetone and oxycodone, for the chest wall pain. He will return in a couple of weeks for a follow-up. All his and his 's questions were answered to their satisfaction. Thank you, Cc: Luz Mccall. Silvano Abad. - Time Spent With Patient Time Spent with Patient (in minutes): 25
[2023-06-29 10:23] LABS: MANUAL DIFF FLAG NO
[2023-06-29 10:25] VITALS: BP 122/58; PULSE 81; O2SAT 96
[2023-06-29 10:41] LABS: Basophils Percent Auto 0.2 % (0-2); Eosinophils Absolute Auto 0.1 X10*3/uL (0.0-0.4); Eosinophils Percent Auto 0.6 % (0-4); Hematocrit 33.9 % (42.0-52.0); Imm Gran Abs Auto 0.15 X10*3/uL (0.00-0.03); Imm Gran Pct Auto 1.2 % (0.0-0.4); Lymphocytes Absolute Auto 1.9 X10*3/uL (1.2-4.9); Lymphocytes Percent Auto 15.1 % (20-40); Mean Corpuscular HGB Conc 29.5 g/dl (31.0-36.0); Mean Corpuscular Hemoglobin 22.6 pg (27.0-33.0); Mean Corpuscular Volume 76.5 fL (80.0-98.0); Mean Platelet Volume 9.3 fL (9.4-12.4); Monocytes Absolute Auto 0.8 X10*3/uL (0.1-1.2); Monocytes Percent Auto 6.6 % (2-11); Neutrophils Absolute Auto 9.7 x10*3/uL (2.0-8.3); Neutrophils Percent Auto 76.3 % (45-73); Platelet Count 488 X10*3/uL (160-400); Red Blood Count 4.43 X10*6/uL (4.60-5.80); Red Cell Distribution Width 17.3 % (11.0-16.0); White Blood Count 12.7 X10*3/uL (4.8-10.8)
[2023-06-29 10:49] LABS: Alanine Aminotransferase 9 U/L (0-40); Albumin Level 3.3 g/dL (3.5-5.0); Alkaline Phosphatase 89 U/L (39-117); Anion Gap 16 (12-20); Aspartate Amino Transferase 15 U/L (5-37); Bilirubin Total 0.3 mg/dL (0.0-1.0); Blood Urea Nitrogen 8 mg/dL (9-16); Calcium 8.8 mg/dL (8.4-10.2); Carbon Dioxide 26 mmol/L (22-29); Chloride 105 mmol/L (96-108); Creatinine Clr Calc Pharmacy 54.7; Estimated Glomerular Filt Rate > 60; Glucose Random 162 mg/dL (60-115); Potassium 3.4 mmol/L (3.3-5.1); Sodium 144 mmol/L (135-145)
--- NOTE | 2023-06-29 10:56 | MHC.HEMONCMA ---
patient seen today for lung ca, vss, labs, following up with provider in [address] chest ordered
[2023-08-12 11:59] VITALS: BP 113/54; PULSE 86; O2SAT 98
--- NOTE | 2023-08-12 12:08 | P.PNHO-ONC_ITS ---
Medical Summary - Medical Summary Date of Service: 08/12/23 Chief complaint: Follow-up for: Non-small cell lung carcinoma. Primary Care Provider: Luz Mccall NP Medical Summary: DIAGNOSIS: Non-small cell lung carcinoma. Interval History Interval history: Raudel Finnegan is a pleasant 77 year old gentleman, here for a follow-up visit. He continues to have pain in his right lower chest. That is pruritic. He is taking Nebumetone, PRN, he has not taken the oxycodone yet. He denies difficulty breathing. His energy level is reasonable. No fever chills or night sweats. He denies headaches, nor dizziness. He complains of chest pain and shortness of breath. He denies cough, no sputum. He denies any abdominal pain nausea vomiting heartburn indigestion. Bowels are working without any gross blood in it. Appetite is good. He has been taking Ensure. His weight has stabilized. Denies any urinary complaints. He complains of right knee pain radiating down from the back. He has history of disc problems and a pinched nerve. Denies any focal weakness. Denies depression. Denies rashes no pruritus. He is in good spirits . Rest of the review of system is unremarkable. INTERIM HISTORY: He came in a couple of weeks ago, after a year's hiatus. He has not been doing too well as of late. He had a CT scan of the chest from 04/12 which revealed: 1. No evidence of pulmonary emboli. 2. Multiple pleural-based masses in the right hemithorax. One of these has decreased in size but the others have increased in size. VTE: negative. He was admitted to the hospital on 06/17. 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 Patient states he has been having wheezing, dyspnea worse with exertion and cough with clear sputum production that has been ongoing for the last 3-4 days. It is progressive and got worse. He continues to smoke tobacco. Patient has refused therapy for lung cancer. He denies fever, chills, chest discomfort, palpitations, abdominal pain, changes in urinary or bowel habits. In the emergency department, patient with dyspnea and tachypnea despite multiple DuoNeb treatments. Chest x-ray from 06/17 revealed: Within a background of complex right hemithoracic pleural-based masses, best seen on prior CT from 04/12/2023, there is suggestion of increased interstitial thickening suspicious for an acute infectious/inflammatory process. A short-term follow-up chest CT is recommended to ensure improvement and rule out progression of the masses. Previous HISTORY: He was admitted to the hospital on 05/28/22, for an overnight stay. Discharge summary: The patient was admitted to the hospital for treatment of COPD exacerbation. Treated with IV steroids , azithromycin and bronchodilator nebulizers with good response as his breathing improved significantly. He was able to ambulate on room air with no reported dyspnea, maintaining his O2 sat in 90s. Was discharged home on azithromycin, prednisone, to continue home nebulizers. Continue prednisone as prescribed. continue azithromycin for the next 3 days. Use your home nebulizer for the next 5 days every 4-6 hours Presenting history: He was recently diagnosed with non-small cell lung carcinoma. His workup has been as follows: CT scan of the chest from 10/21/2021: 1. No evidence of pulmonary emboli 2. Increasing size of 2 right lung masses suspicious for progressive malignancy PET scan from 10/21/2021: 1. A posterior pleural-based FDG avid right lower lobe pulmonary nodule is strongly suspicious for a malignant lesion. 2. A second diaphragmatic right lower lobe pulmonary nodule his mildly FDG avid, also strongly suspicious for malignancy. 3. 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 4. Increased FDG activity in the diaphragm and intercostal muscles bilaterally is evidence of increased respiratory effort. 5. There is a focus of increased FDG activity in the rectosigmoid colon as described above. While this may be physiological, focal appearance is suspicious for malignancy. Correlation with colonoscopy is recommended. 6. No additional abnormalities are present suspicious for other metastatic or malignant lesions. 7. Vascular calcifications including coronary. FNA of the right lung nodule from 02/25/2022: Positive for malignancy, consistent with non-small cell lung carcinoma. Positive for CK7 and TTF 1. Positive for P 63. Napsin A has rare immuno reactivity. CT-guided biopsy of the nodule in the superior segment of the right lower lobe on 04/02/2022 revealed: Non-small cell lung carcinoma. PFTs revealed: If even of 44% and DLCO of 31%. PMH of: COPD, DM, Continued tobacco use despite recurrent hospitalizations for copd exacerbations, hypothyroid During the course of hospitalization patient was also managed for diabetes mellitus x2 with insulin sliding scale and diabetic diet and instructed to resume metformin upon discharge In regard to GERD he had no acute symptoms continue PPI Hypothyroidism continue Synthroid He was admitted to the hospital, back in January. He presented to [facility] with complaints of sudden onset dyspnea after he woke up in the morning. not responsive to home inhalers / bronchodilators. Patient endorses a chronic cough, but slightly increased in productivity over the last several days -- whitish/yellow sputum. He denies any fevers or chills. He reports feeling at baseline the preceeding 24 hours prior to ED arrival. He reports compliance with his inhalers / nebulizers. He reports smoking 2-3 cigarettes daily. He denies any sick contacts. He reports that due to the recent cold weather, he has a flare of his asthma. In the ED, the patient was treated with systemic steroids, several nebulized bronchodilators and antibiotics. He remains symptomatic with wheezing/ REED. Hospital course: he was admitted to hospital with persistent symptoms of shortness of breath, wheezing and cough likely due to acute COPD exacerbation secondary to continued tobacco use and acute bacterial bronchitis, patient treated with IV steroids, scheduled and as needed bronchodilators and azithromycin patient was also continued on theophylline and montelukast. He responded well to above treatment. He seemed to be at baseline. Discharged home on azithromycin to finish a total 5 day course of antibiotics. Recommended to continue home dose of steroids and updraft treatment. He was strongly advised to abstain from smoking. Patient is gradually weaning, currently smoking 5-8 cigarettes, he declined nicotine patch. FAMILY HISTORY: Dad of throat cancer. Brother of lung cancer. There were both smokers. 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 He is not . He has 4 children. He smoked 2-2 and half packs per day. Now down to half a pack a day. . Review of Systems - Constitutional Reports system reviewed and no additional complaints, except as documented, Reports body ache(s), Reports fatigue, Reports lack of energy, Reports weakness, Reports weight loss, Denies fever(s) - Eyes Reports system reviewed and no additional complaints, except as documented - ENT Reports system reviewed and no additional complaints, except as documented - Cardiovascular Reports system reviewed and no additional complaints, except as documented - Respiratory Reports no additional respiratory complaints - Gastrointestinal Reports system reviewed and no additional complaints, except as documented - Genitourinary Genitourinary: Reports no additional male genitourinary complaints - Musculoskeletal Reports system reviewed and no additional complaints, except as documented - Integumentary/Breasts Skin/Breast: Reports no additional skin complaints - Neurologic Reports system reviewed and no additional complaints, except as documented, Denies weakness - Psychiatric Reports system reviewed and no additional complaints, except as documented - Endocrine Reports no additional endocrine complaints - Hematologic/Lymphatic Reports system reviewed and no additional complaints, except as documented - Allergic/Immunologic Reports system reviewed and no additional complaints, except as documented PMFSH Medical History: Medical History (Last Reviewed 08/15/23 @ 00:31 by Tanya Morel MD) Abnormal PET scan of colon Acute exacerbation of chronic obstructive pulmonary disease Asthma Chronic respiratory failure COPD (chronic obstructive pulmonary disease) Diabetes GERD (gastroesophageal reflux disease) Hypertension Hypothyroidism Osteoarthritis Osteoporosis Oxygen dependent Sepsis Tobacco dependence Ureteral calculi Functional capacity: wheelchair bound Patient : No Family History: Family History (Last Reviewed 08/15/23 @ 00:31 by Tanya Morel MD) Father Throat cancer Brother Lung cancer Other Hypertension Surgical History: Surgical History (Last Reviewed 08/15/23 @ 00:31 by Tanya Morel MD) History of appendectomy History of cataract surgery Onset Date: ~2011 History of lithotripsy Onset Date: ~2008 History of lung biopsy Onset Date: ~2021 Social History: Social History (Last Reviewed 08/15/23 @ 00:31 by Tanya Morel MD) Living Situation History: Household Members: Family Household Members Other:: 1 Housing: Apartment Are you a primary healthcare or medical to a significant other at home: No Do you presently have visiting nurse or other home services: No Tobacco History: Patient Tobacco Use Status: Current everyday Tobacco Tobacco use type: Cigarette Cigarette Packs Per Day: 0.5 Cigarettes Per Day: 8 Years Smoked: 62 e-Cigarette/Vaping Use: Currently Using Second Hand Smoke Exposure: No Advance Directives: Advance Directives Date on File: 12/18/20 Occupation Assessmet: service: No Current occupational status: unemployed Current occupational status: retired Home Medications and Allergies Home Medications Medication Instructions Recorded Confirmed Type metformin 500 mg tablet 500 mg PO DAILY 09/28/20 08/15/23 History omeprazole 20 mg capsule,delayed 20 mg PO DAILY@0630 12/01/20 08/15/23 History release nabumetone 500 mg tablet 1 tab PO BID PRN knee pain 01/29/22 08/15/23 History fluticasone fur. 200 mcg-umeclid 1 puff inhalation DAILY 08/28/22 08/15/23 History 62.5 mcg-vilant 25 mcg inhalat.powder (Trelegy Ellipta) multivitamin with folic acid 400 1 tab PO DAILY 08/28/22 08/15/23 History mcg tablet (Daily-Leslie (with folic acid)) levothyroxine 88 mcg tablet 88 mcg PO DAILY@0600 06/17/23 08/15/23 History acetaminophen 325 mg tablet 650 mg PO Q6H PRN Pain 06/18/23 08/15/23 History (Tylenol) cholecalciferol (vitamin D3) 25 25 mcg PO DAILY 06/18/23 08/15/23 History mcg (1,000 unit) tablet topiramate 50 mg tablet 50 mg PO DAILY 06/18/23 08/15/23 History mirtazapine 7.5 mg tablet 7.5 mg PO BEDTIME 06/29/23 08/15/23 History ipratropium 0.5 mg-albuterol 3 mg 3 ml inhalation QID PRN wheezing 07/02/23 08/15/23 History (2.5 mg base)/3 mL nebulization soln topiramate 50 mg tablet 100 mg PO BEDTIME 07/02/23 08/15/23 History prednisone 20 mg tablet 20 mg PO DAILY 08/12/23 08/15/23 History duloxetine 30 mg capsule,delayed 30 mg PO DAILY 08/15/23 08/15/23 History release ibandronate 150 mg tablet 150 mg PO QMONTH 08/15/23 08/15/23 History testosterone cypionate 200 mg/mL 100 mg IM Q2W 08/15/23 08/15/23 History intramuscular oil Allergies Allergy/AdvReac Type Severity Reaction Status Date / Time shellfish derived Allergy Severe ANAPHYLAXIS Verified 08/12/23 13:44 [SHELLFISH DERIVED] pollen extracts [POLLEN] Allergy Intermediate RUNNING Verified 08/12/23 13:44 NOSE, WATERY EYES, SNEEZING varenicline [VARENICLINE] AdvReac Unknown PALPITATION Verified 08/12/23 13:44 S Exam Vital signs: Vital Signs Temp 98.3 F 06/05/22 13:22 Pulse 86 08/12/23 11:59 Resp 14 06/05/22 13:22 BP 113/54 L 08/12/23 11:59 Pulse Ox 98 08/12/23 11:59 O2 Del Method Room Air 08/12/23 11:59 Weight 50.3 kg BMI result Body Mass Index 18.4 - Constitutional Present: mild distress - Routine HEENT Exam Head: Present: normal inspection Eye: Present: normal appearance ENT: Present: mucous membranes moist - Routine Neck Exam Present: full ROM - Routine Respiratory Exam Present: decreased breath sounds - Routine Cardiovascular Exam Cardiovascular: Present: RRR, S1, S2 - Routine Abdominal Exam Present: normal bowel sounds, nontender - Routine Extremities Exam Present: nontender - Routine Back/Spine/Pelvis Exam Back/Spine: Present: full ROM - Routine Skin Exam Present: intact - Routine Neurological Exam Present: alert, oriented X3, normal speech - Detailed Neurological Exam: Coma Scale Eye Opening: Spontaneous (4) - Routine Psychiatric Exam Present: normal affect Data - Labs CBC & Chem 7: 08/12/23 12:12 08/12/23 12:12 Assessment and Plan Patient Active problem list reviewed?: Yes (1) Lung cancer Status: Acute Assessment and plan: This is a pleasant 76-year-old gentleman with recent diagnosis of non-small cell lung carcinoma. PET scan from September, revealed: 1. A posterior pleural-based FDG avid right lower lobe pulmonary nodule is strongly suspicious for a malignant lesion. 2. A second diaphragmatic right lower lobe pulmonary nodule his mild FDG avid, also strongly suspicious for malignancy. 3. 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 4. Increased FDG activity in the diaphragm and intercostal muscles bilaterally is evidence of increased respiratory effort. 5. There is a focus of increased FDG activity in the rectosigmoid colon as described above. While this may be physiological, focal appearance is suspicious for malignancy. Correlation with colonoscopy is recommended. 6. No additional abnormalities are present suspicious for other metastatic or malignant lesions. 7. Vascular calcifications including coronary. PET scan from 04/29 revealed: Abnormal metabolic activity in the largest nodule right lower lobe abutting the posterior pleura. The mass is almost same size, may be slightly larger 1 cm. Metabolic activity has increased suggesting of increased angiogenesis. Second lesion in the right lower lobe posterior medial segment appears cavitary on PET. It has increased in size and increase in metabolic activity slightly. Third lesion calcified left lower lobe no change. Suspect mild early sigmoid diverticulitis. Correlate with clinical exam Immuno studies: EGFR negative. PDL1 negative. K janie mutational status, G12C is negative. He underwent a colonoscopy on 05/20, by GI to sort out the question of abnormality in rectosigmoid colon. This revealed tubular adenomas but nothing worrisome.. Database: 05/29: CBC: WBC: 9, HGB 10.4, HCT 34.4, PLT 394. CMP: Lytes WNL, glucose 139, BUN 17, SCHEDULE SUPERVISOR 0.9. A lb 3.8. Ca L8 0.9. CEA 9.90. LFTs: 0.4/104/12/11. He was deemed a candidate for SBRT therapy. He initially declined radiation but then was willing to do it. He was seen at [facility] for radiation therapy consultation. He was then referred to [facility]. The recommendation is to treat him with 5 fractions to each right lung nodule, given every other day, over 2-4 weeks, (can be treated simultaneously or sequentially.) Pt. missed his appointment with Dr. Fortune. He ended up here by mistake. Dr. Fortune graciously spoke with him via student financial aid manager at length about the benefit of radiation in terms of curing him and the urgency of starting treatment. However, he declined. He had a nephew who succumbed to complications of radiation so he doesn't wish to proceed. We called him the following day and tried to convince him however he did not budge. He was getting angry at our persistence. He has not been doing too well as of late. He had a CT scan of the chest from 04/12 which revealed: 1. No evidence of pulmonary emboli. 2. Multiple pleural-based masses in the right hemithorax. One of these has decreased in size but the others have increased in size. VTE: negative. He was admitted to the hospital on 06/17. 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 Patient states he has been having wheezing, dyspnea worse with exertion and cough with clear sputum production that has been ongoing for the last 3-4 days. It is progressive and got worse. He continues to smoke tobacco. Patient has refused therapy for lung cancer. He denies fever, chills, chest discomfort, palpitations, abdominal pain, changes in urinary or bowel habits. In the emergency department, patient with dyspnea and tachypnea despite multiple DuoNeb treatments. Chest x-ray from 06/17 revealed: Within a background of complex right hemithoracic pleural-based masses, best seen on prior CT from 04/12/2023, there is suggestion of increased interstitial thickening suspicious for an acute infectious/inflammatory process. A short-term follow-up chest CT is recommended to ensure improvement and rule out progression of the masses. My concern is disease progression. I proceeded with a CT scan of the chest for further evaluation. This was done on 07/28 and revealed: 1. Manifestations of lung cancer with growing masses in the right lower lobe and right upper lobe. 2. Mediastinal lymphadenopathy. 3. Calcified granuloma in the left lower lobe and calcified granuloma in the right upper lobe. 4. 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 This has confirmed disease progression. PLAN: I will proceed with a CT-guided biopsy of one of the pleural based masses. Meanwhile I advised him to try the oxycodone, for the chest wall pain, if the Tylenol, and nabumetone are not helping. Will make further treatment plans based upon the above biopsy results and molecular testing. He will return in a couple of weeks for a follow-up. All his and his 's questions were answered to their satisfaction. Thank you, Cc: Luz Mccall. Silvano Abad. - Time Spent With Patient Time Spent with Patient (in minutes): 25
[2023-08-12 12:15] LABS: MANUAL DIFF FLAG NO
[2023-08-12 12:18] LABS: Basophils Absolute Auto 0.1 X10*3/uL (0.0-0.2); Basophils Percent Auto 0.7 % (0-2); Eosinophils Absolute Auto 0.4 X10*3/uL (0.0-0.4); Eosinophils Percent Auto 4.1 % (0-4); Hematocrit 31.1 % (42.0-52.0); Hemoglobin 9.2 g/dl (14.0-18.0); Imm Gran Abs Auto 0.05 X10*3/uL (0.00-0.03); Imm Gran Pct Auto 0.5 % (0.0-0.4); Lymphocytes Percent Auto 9.9 % (20-40); Mean Corpuscular HGB Conc 29.6 g/dl (31.0-36.0); Mean Corpuscular Hemoglobin 22.8 pg (27.0-33.0); Mean Corpuscular Volume 77.2 fL (80.0-98.0); Mean Platelet Volume 9.2 fL (9.4-12.4); Monocytes Absolute Auto 0.7 X10*3/uL (0.1-1.2); Monocytes Percent Auto 6.5 % (2-11); Neutrophils Absolute Auto 7.9 x10*3/uL (2.0-8.3); Neutrophils Percent Auto 78.3 % (45-73); Platelet Count 502 X10*3/uL (160-400); Red Blood Count 4.03 X10*6/uL (4.60-5.80); Red Cell Distribution Width 16.4 % (11.0-16.0)
--- NOTE | 2023-08-12 12:31 | MHC.HEMONCMA ---
patient seen today for lung ca, vss, labs, following up with provider in 2 weeks
[2023-08-12 12:33] LABS: Alanine Aminotransferase 5 U/L (0-40); Albumin Level 3.3 g/dL (3.5-5.0); Alkaline Phosphatase 95 U/L (39-117); Anion Gap 10 (12-20); Aspartate Amino Transferase 21 U/L (5-37); Bilirubin Total 0.3 mg/dL (0.0-1.0); Blood Urea Nitrogen 8 mg/dL (9-16); Calcium 8.8 mg/dL (8.4-10.2); Carbon Dioxide 27 mmol/L (22-29); Chloride 104 mmol/L (96-108); Creatinine Clr Calc Pharmacy 58.9; Estimated Glomerular Filt Rate > 60; Glucose Random 125 mg/dL (60-115); Potassium 3.8 mmol/L (3.3-5.1); Sodium 137 mmol/L (135-145); Total Protein 6.5 g/dL (6.5-8.0)
[2023-08-31 11:03] VITALS: BP 98/55; PULSE 72; RESP 20; TEMP 36.6; O2SAT 94; BMI 16.4
--- NOTE | 2023-08-31 11:04 | PM.HEMONCPN ---
Medical Summary - Medical Summary Date of Service: 08/31/23 Chief complaint: Follow-up for: Non-small cell lung carcinoma with disease progression. Primary Care Provider: Luz Mccall NP Medical Summary: DIAGNOSIS: Non-small cell lung carcinoma. Interval History Interval history: Raudel Finnegan is a pleasant 77 year old gentleman, here for a follow-up visit. He had a biopsy of the right lower lobe of the lung on 08/26. Pathology revealed: Poorly differentiated carcinoma with necrosis. Features are similar to the patient's right lung for FNA.. Molecular studies are pending. He tells me, he continues to have pain in his right lower chest. That is pruritic. He was taking Nebumetone, PRN, however he ran out. He grades the pain as 9 on 1-10 scale. He has oxycodone at home but he'd rather not take that. He has tried tramadol which helps. He denies difficulty breathing. His energy level is reasonable. No fever chills or night sweats. He denies headaches, nor dizziness. He complains of chest pain and shortness of breath. He denies cough, no sputum. He denies any abdominal pain nausea vomiting heartburn indigestion. Bowels are working without any gross blood in it. Appetite is good. He has been taking Ensure. His weight has stabilized. Denies any urinary complaints. He complains of right knee pain radiating down from the back. He has history of disc problems and a pinched nerve. Denies any focal weakness. Denies depression. Denies rashes no pruritus. He is in good spirits. Rest of the review of system is unremarkable. INTERIM HISTORY: He came in a couple of weeks ago, after a year's hiatus. He has not been doing too well as of late. He had a CT scan of the chest from 04/12 which revealed: 1. No evidence of pulmonary emboli. 2. Multiple pleural-based masses in the right hemithorax. One of these has decreased in size but the others have increased in size. VTE: negative. He was admitted to the hospital on 06/17. 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 Patient states he has been having wheezing, dyspnea worse with exertion and cough with clear sputum production that has been ongoing for the last 3-4 days. It is progressive and got worse. He continues to smoke tobacco. Patient has refused therapy for lung cancer. He denies fever, chills, chest discomfort, palpitations, abdominal pain, changes in urinary or bowel habits. In the emergency department, patient with dyspnea and tachypnea despite multiple DuoNeb treatments. Chest x-ray from 06/17 revealed: Within a background of complex right hemithoracic pleural-based masses, best seen on prior CT from 04/12/2023, there is suggestion of increased interstitial thickening suspicious for an acute infectious/inflammatory process. A short-term follow-up chest CT is recommended to ensure improvement and rule out progression of the masses. Previous HISTORY: He was admitted to the hospital on 05/28/22, for an overnight stay. Discharge summary: The patient was admitted to the hospital for treatment of COPD exacerbation. Treated with IV steroids , azithromycin and bronchodilator nebulizers with good response as his breathing improved significantly. He was able to ambulate on room air with no reported dyspnea, maintaining his O2 sat in 90s. Was discharged home on azithromycin, prednisone, to continue home nebulizers. Continue prednisone as prescribed. continue azithromycin for the next 3 days. Use your home nebulizer for the next 5 days every 4-6 hours Presenting history: He was recently diagnosed with non-small cell lung carcinoma. His workup has been as follows: CT scan of the chest from 10/21/2021: 1. No evidence of pulmonary emboli 2. Increasing size of 2 right lung masses suspicious for progressive malignancy PET scan from 10/21/2021: 1. A posterior pleural-based FDG avid right lower lobe pulmonary nodule is strongly suspicious for a malignant lesion. 2. A second diaphragmatic right lower lobe pulmonary nodule his mildly FDG avid, also strongly suspicious for malignancy. 3. 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 4. Increased FDG activity in the diaphragm and intercostal muscles bilaterally is evidence of increased respiratory effort. 5. There is a focus of increased FDG activity in the rectosigmoid colon as described above. While this may be physiological, focal appearance is suspicious for malignancy. Correlation with colonoscopy is recommended. 6. No additional abnormalities are present suspicious for other metastatic or malignant lesions. 7. Vascular calcifications including coronary. FNA of the right lung nodule from 02/25/2022: Positive for malignancy, consistent with non-small cell lung carcinoma. Positive for CK7 and TTF 1. Positive for P 63. Napsin A has rare immuno reactivity. CT-guided biopsy of the nodule in the superior segment of the right lower lobe on 04/02/2022 revealed: Non-small cell lung carcinoma. PFTs revealed: If even of 44% and DLCO of 31%. PMH of: COPD, DM, Continued tobacco use despite recurrent hospitalizations for copd exacerbations, hypothyroid During the course of hospitalization patient was also managed for diabetes mellitus x2 with insulin sliding scale and diabetic diet and instructed to resume metformin upon discharge In regard to GERD he had no acute symptoms continue PPI Hypothyroidism continue Synthroid He was admitted to the hospital, back in January. He presented to [facility] ED with complaints of sudden onset dyspnea after he woke up in the morning. not responsive to home inhalers / bronchodilators. Patient endorses a chronic cough, but slightly increased in productivity over the last several days -- whitish/yellow sputum. He denies any fevers or chills. He reports feeling at baseline the preceeding 24 hours prior to ED arrival. He reports compliance with his inhalers / nebulizers. He reports smoking 2-3 cigarettes daily. He denies any sick contacts. He reports that due to the recent cold weather, he has a flare of his asthma. In the ED, the patient was treated with systemic steroids, several nebulized bronchodilators and antibiotics. He remains symptomatic with wheezing/ REED. Hospital course: he was admitted to hospital with persistent symptoms of shortness of breath, wheezing and cough likely due to acute COPD exacerbation secondary to continued tobacco use and acute bacterial bronchitis, patient treated with IV steroids, scheduled and as needed bronchodilators and azithromycin patient was also continued on theophylline and montelukast. He responded well to above treatment. He seemed to be at baseline. Discharged home on azithromycin to finish a total 5 day course of antibiotics. Recommended to continue home dose of steroids and updraft treatment. He was strongly advised to abstain from smoking. Patient is gradually weaning, currently smoking 5-8 cigarettes, he declined nicotine patch. FAMILY HISTORY: Dad of throat cancer. Brother of lung cancer. There were both smokers. 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 He is not . He has 4 children. He smoked 2-2 and half packs per day. Now down to half a pack a day. . Review of Systems - Constitutional Reports no additional constitutional complaints, Denies fever(s), Reports weakness, Denies weight gain, Reports weight loss - Eyes Reports no additional eye complaints - ENT Reports no additional ear, nose, mouth, and throat complaints - Cardiovascular Reports no additional cardiovascular complaints, Reports chest pain - Respiratory Reports no additional respiratory complaints - Gastrointestinal Reports no additional gastrointestinal complaints - Genitourinary Genitourinary: Reports no additional male genitourinary complaints - Musculoskeletal Reports no additional musculoskeletal complaints - Integumentary/Breasts Skin/Breast: Reports no additional skin complaints - Neurologic Reports no additional neurologic complaints, Reports weakness - Psychiatric Reports no additional psychiatric complaints - Endocrine Reports no additional endocrine complaints - Hematologic/Lymphatic Reports no additional hematologic/lymphatic complaints - Allergic/Immunologic Reports no additional allergic/immunologic complaints [facility] Medical History: Medical History (Last Reviewed 08/31/23 @ 11:04 by Jaime Valderrama) Abnormal PET scan of colon Acute exacerbation of chronic obstructive pulmonary disease Asthma Chronic respiratory failure COPD (chronic obstructive pulmonary disease) Diabetes GERD (gastroesophageal reflux disease) Hypertension Hypothyroidism Osteoarthritis Osteoporosis Oxygen dependent Sepsis Tobacco dependence Ureteral calculi Functional capacity: wheelchair bound Patient : No Family History: Family History (Last Reviewed 08/31/23 @ 11:04 by Jaime Valderrama) Father Throat cancer Brother Lung cancer Other Hypertension Surgical History: Surgical History (Last Reviewed 08/31/23 @ 11:04 by Jaime Valderrama) History of appendectomy History of cataract surgery Onset Date: ~2011 History of lithotripsy Onset Date: ~2008 History of lung biopsy Onset Date: ~2021 Social History: Social History (Last Reviewed 08/31/23 @ 11:04 by Jaime Valderrama) Living Situation History: Household Members: Family Household Members Other:: 1 Housing: Apartment Are you a primary health careers instructor to a significant other at home: No Do you presently have visiting nurse or other home services: No Alcohol History Details: 1. How often do you have a drink containing alcohol?: a. Never Tobacco History: Patient Tobacco Use Status: Current everyday Tobacco Tobacco use type: Cigarette Cigarette Packs Per Day: 0.5 Years Smoked: 62 e-Cigarette/Vaping Use: Currently Using Second Hand Smoke Exposure: No Substance Use History: Use of substances other than those prescribed or required for medical reasons: No Domestic Abuse History: Have you been hit, kicked, punched, or otherwise hurt by someone within the past year? If so, by whom?: No Do you feel safe in your current relationship?: Yes Advance Directives: Advance Directives Date on File: 12/18/20 Homicidal Assessment: Do you have thoughts of harming others: None Do you have a plan to hurt others: No Plan Do you have the means to hurt others: No Nutrition Assessment: Recently lost weight without trying: Yes How much weight loss: 2-13 pounds Eating poorly because of decreased appetite: No Nutrition screen score: 3 Patient : No Occupation Assessmet: service: No Current occupational status: unemployed Current occupational status: retired Oncology Screenings - ECOG Performance Status ECOG Performance Status: 2 Home Medications and Allergies Home Medications Medication Instructions Recorded Confirmed Type metformin 500 mg tablet 500 mg PO DAILY 09/28/20 08/31/23 History omeprazole 20 mg capsule,delayed 20 mg PO DAILY@0630 12/01/20 08/31/23 History release nabumetone 500 mg tablet 1 tab PO BID PRN knee pain 01/29/22 08/31/23 History fluticasone fur. 200 mcg-umeclid 1 puff inhalation DAILY 08/28/22 08/31/23 History 62.5 mcg-vilant 25 mcg inhalat.powder (Trelegy Ellipta) multivitamin with folic acid 400 1 tab PO DAILY 08/28/22 08/31/23 History mcg tablet (Daily-Leslie (with folic acid)) levothyroxine 88 mcg tablet 88 mcg PO DAILY@0600 06/17/23 08/31/23 History acetaminophen 325 mg tablet 650 mg PO Q6H PRN Pain 06/18/23 08/31/23 History (Tylenol) cholecalciferol (vitamin D3) 25 25 mcg PO DAILY 06/18/23 08/31/23 History mcg (1,000 unit) tablet topiramate 50 mg tablet 50 mg PO DAILY 06/18/23 08/31/23 History mirtazapine 7.5 mg tablet 7.5 mg PO BEDTIME 06/29/23 08/31/23 History ipratropium 0.5 mg-albuterol 3 mg 3 ml inhalation QID PRN wheezing 07/02/23 08/31/23 History (2.5 mg base)/3 mL nebulization soln topiramate 50 mg tablet 100 mg PO BEDTIME 07/02/23 08/31/23 History prednisone 20 mg tablet 20 mg PO DAILY 08/12/23 08/31/23 History duloxetine 30 mg capsule,delayed 30 mg PO DAILY 08/15/23 08/31/23 History release ibandronate 150 mg tablet 150 mg PO QMONTH 08/15/23 08/31/23 History testosterone cypionate 200 mg/mL 100 mg IM Q2W 08/15/23 08/31/23 History intramuscular oil Allergies Allergy/AdvReac Type Severity Reaction Status Date / Time pollen extracts [POLLEN] Allergy Intermediate RUNNING Verified 08/31/23 11:05 NOSE, WATERY EYES, SNEEZING varenicline [VARENICLINE] AdvReac Unknown PALPITATION Verified 08/31/23 11:05 S Exam Vital signs: Vital Signs Temp 98.3 F 06/05/22 13:22 Pulse 86 08/12/23 11:59 Resp 14 06/05/22 13:22 BP 113/54 L 08/12/23 11:59 Pulse Ox 98 08/12/23 11:59 O2 Del Method Room Air 08/12/23 11:59 Weight 50.3 kg BMI result Body Mass Index 18.4 - Constitutional Present: mild distress - Routine HEENT Exam Head: Present: normal inspection Eye: Present: normal appearance ENT: Present: mucous membranes moist - Routine Neck Exam Present: full ROM - Routine Respiratory Exam Present: decreased breath sounds - Routine Cardiovascular Exam Cardiovascular: Present: RRR, S1, S2 - Routine Abdominal Exam Present: normal bowel sounds, nontender - Routine Extremities Exam Present: nontender - Routine Back/Spine/Pelvis Exam Back/Spine: Present: full ROM - Routine Skin Exam Present: intact - Routine Neurological Exam Present: alert, oriented X3, normal speech - Detailed Neurological Exam: Coma Scale Eye Opening: Spontaneous (4) - Routine Psychiatric Exam Present: normal affect Data - Labs CBC & Chem 7: 08/12/23 12:12 08/12/23 12:12 Assessment and Plan Patient Active problem list reviewed?: Yes (1) Lung cancer Status: Acute Assessment and plan: This is a pleasant 76-year-old gentleman with recent diagnosis of non-small cell lung carcinoma. PET scan from September, revealed: 1. A posterior pleural-based FDG avid right lower lobe pulmonary nodule is strongly suspicious for a malignant lesion. 2. A second diaphragmatic right lower lobe pulmonary nodule his mild FDG avid, also strongly suspicious for malignancy. 3. 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 4. Increased FDG activity in the diaphragm and intercostal muscles bilaterally is evidence of increased respiratory effort. 5. There is a focus of increased FDG activity in the rectosigmoid colon as described above. While this may be physiological, focal appearance is suspicious for malignancy. Correlation with colonoscopy is recommended. 6. No additional abnormalities are present suspicious for other metastatic or malignant lesions. 7. Vascular calcifications including coronary. PET scan from 04/29 revealed: Abnormal metabolic activity in the largest nodule right lower lobe abutting the posterior pleura. The mass is almost same size, may be slightly larger 1 cm. Metabolic activity has increased suggesting of increased angiogenesis. Second lesion in the right lower lobe posterior medial segment appears cavitary on PET. It has increased in size and increase in metabolic activity slightly. Third lesion calcified left lower lobe no change. Suspect mild early sigmoid diverticulitis. Correlate with clinical exam Immuno studies: EGFR negative. PDL1 negative. K janie mutational status, G12C is negative. He underwent a colonoscopy on 05/20, by GI to sort out the question of abnormality in rectosigmoid colon. This revealed tubular adenomas but nothing worrisome.. Database: 05/29: CBC: WBC: 9, HGB 10.4, HCT 34.4, PLT 394. CMP: Lytes WNL, glucose 139, BUN 17, [employer] 0.9. A lb 3.8. Ca L8 0.9. CEA 9.90. LFTs: 0.4/104/12/11. He was deemed a candidate for SBRT therapy. He initially declined radiation but then was willing to do it. He was seen at [facility] for radiation therapy consultation. He was then referred to [facility]. The recommendation is to treat him with 5 fractions to each right lung nodule, given every other day, over 2-4 weeks, (can be treated simultaneously or sequentially.) Pt. missed his appointment with Dr. Fortune. He ended up here by mistake. Dr. Fortune graciously spoke with him via staff interpreter at length about the benefit of radiation in terms of curing him and the urgency of starting treatment. However, he declined. He had a nephew who succumbed to complications of radiation so he doesn't wish to proceed. We called him the following day and tried to convince him however he did not budge. He was getting angry at our persistence. He has not been doing too well as of late. He had a CT scan of the chest from 04/12 which revealed: 1. No evidence of pulmonary emboli. 2. Multiple pleural-based masses in the right hemithorax. One of these has decreased in size but the others have increased in size. VTE: negative. He was admitted to the hospital on 06/17. 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 Patient states he has been having wheezing, dyspnea worse with exertion and cough with clear sputum production that has been ongoing for the last 3-4 days. It is progressive and got worse. He continues to smoke tobacco. Patient has refused therapy for lung cancer. He denies fever, chills, chest discomfort, palpitations, abdominal pain, changes in urinary or bowel habits. In the emergency department, patient with dyspnea and tachypnea despite multiple DuoNeb treatments. Chest x-ray from 06/17 revealed: Within a background of complex right hemithoracic pleural-based masses, best seen on prior CT from 04/12/2023, there is suggestion of increased interstitial thickening suspicious for an acute infectious/inflammatory process. A short-term follow-up chest CT is recommended to ensure improvement and rule out progression of the masses. My concern is disease progression. I proceeded with a CT scan of the chest for further evaluation. This was done on 07/28 and revealed: 1. Manifestations of lung cancer with growing masses in the right lower lobe and right upper lobe. 2. Mediastinal lymphadenopathy. 3. Calcified granuloma in the left lower lobe and calcified granuloma in the right upper lobe. 4. 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 This has confirmed disease progression. I proceeded with a CT-guided biopsy of one of the pleural based masses. This was done on 08/26 and revealed: Poorly differentiated carcinoma with necrosis. This matches is reassuring cancer. Molecular testing is pending. Meanwhile he has a lot of pain. He does not wish to take the oxycodone, for the chest wall pain, PLAN: I tried a dose of tramadol here. Sent a prescription to his pharmacy. Discussed further treatment for the recurrent lung cancer. He is rather frail and not really a chemotherapy candidate. Can use a PD-1 inhibitor nivolumab. It is a fully human immunoglobulin G4 PD-1 immune checkpoint inhibitor antibody. It blocks PD-1 and remote anti tumor immunity. It is effective for treating non-small cell lung carcinoma. He was given information about the drug. He will return in a couple of weeks to get started. All his and his 's questions were answered to their satisfaction. Thank you, Cc: Luz Mccall. Silvano Abad. - Time Spent With Patient Time Spent with Patient (in minutes): 25
[2023-08-31] MEDS: traMADoL HCL 50 MG TABLET 25 MG PO (11:32)
--- NOTE | 2023-08-31 11:55 | MHC.HEMONCMA ---
patient seen today for lung cancer, vss, labs, following up with provider in 1 month
--- NOTE | 2023-09-08 10:55 | HO.HEMONCPA ---
NO PA REQUIRED FOR NIVOLUMAB [id number] COVERED UNDER MEDICARE PART B BENEFITS
--- NOTE | 2023-09-23 11:13 | P.PNHO-ONC_ITS ---
Medical Summary - Medical Summary Date of Service: 09/23/23 Chief complaint: Follow-up for non-small cell lung carcinoma. Primary Care Provider: Luz Mccall NP Medical Summary: DIAGNOSIS: Non-small cell lung carcinoma. Interval History Interval history: Raudel Finnegan is a pleasant 77 year old gentleman, here for a follow-up visit. Overall he says he is feeling well. He denies any major problems. 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 He denies difficulty breathing. His energy level is reasonable. No fever chills or night sweats. He denies headaches, nor dizziness. He complains of chest pain and shortness of breath. He denies cough, no sputum. He denies any abdominal pain nausea vomiting heartburn indigestion. Bowels are working without any gross blood in it. Appetite is good. He has been taking Ensure. His weight has stabilized. Denies any urinary complaints. He complains of right knee pain radiating down from the back. He has history of disc problems and a pinched nerve. Denies any focal weakness. Denies depression. Denies rashes no pruritus. He is in good spirits. Rest of the review of system is unremarkable. RECENT HISTORY: He had a biopsy of the right lower lobe of the lung on 08/26. Pathology revealed: Poorly differentiated carcinoma with necrosis. Features are similar to the patient's right lung for FNA.. Molecular studies are pending. He tells me, he continues to have pain in his right lower chest. That is pruritic. He was taking Nebumetone, PRN, however he ran out. He grades the pain as 9 on 1-10 scale. He has oxycodone at home but he'd rather not take that. He has tried tramadol which helps. INTERIM HISTORY: He came in a couple of weeks ago, after a year's hiatus. He has not been doing too well as of late. He had a CT scan of the chest from 04/12 which revealed: 1. No evidence of pulmonary emboli. 2. Multiple pleural-based masses in the right hemithorax. One of these has decreased in size but the others have increased in size. VTE: negative. He was admitted to the hospital on 06/17. 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 Patient states he has been having wheezing, dyspnea worse with exertion and cough with clear sputum production that has been ongoing for the last 3-4 days. It is progressive and got worse. He continues to smoke tobacco. Patient has refused therapy for lung cancer. He denies fever, chills, chest discomfort, palpitations, abdominal pain, changes in urinary or bowel habits. In the emergency department, patient with dyspnea and tachypnea despite multiple DuoNeb treatments. Chest x-ray from 06/17 revealed: Within a background of complex right hemithoracic pleural-based masses, best seen on prior CT from 04/12/2023, there is suggestion of increased interstitial thickening suspicious for an acute infectious/inflammatory process. A short-term follow-up chest CT is recommended to ensure improvement and rule out progression of the masses. Previous HISTORY: He was admitted to the hospital on 05/28/22, for an overnight stay. Discharge summary: The patient was admitted to the hospital for treatment of COPD exacerbation. Treated with IV steroids , azithromycin and bronchodilator nebulizers with good response as his breathing improved significantly. He was able to ambulate on room air with no reported dyspnea, maintaining his O2 sat in 90s. Was discharged home on azithromycin, prednisone, to continue home nebulizers. Continue prednisone as prescribed. continue azithromycin for the next 3 days. Use your home nebulizer for the next 5 days every 4-6 hours Presenting history: He was recently diagnosed with non-small cell lung carcinoma. His workup has been as follows: CT scan of the chest from 10/21/2021: 1. No evidence of pulmonary emboli 2. Increasing size of 2 right lung masses suspicious for progressive malignancy PET scan from 10/21/2021: 1. A posterior pleural-based FDG avid right lower lobe pulmonary nodule is strongly suspicious for a malignant lesion. 2. A second diaphragmatic right lower lobe pulmonary nodule his mildly FDG avid, also strongly suspicious for malignancy. 3. 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 4. Increased FDG activity in the diaphragm and intercostal muscles bilaterally is evidence of increased respiratory effort. 5. There is a focus of increased FDG activity in the rectosigmoid colon as described above. While this may be physiological, focal appearance is suspicious for malignancy. Correlation with colonoscopy is recommended. 6. No additional abnormalities are present suspicious for other metastatic or malignant lesions. 7. Vascular calcifications including coronary. FNA of the right lung nodule from 02/25/2022: Positive for malignancy, consistent with non-small cell lung carcinoma. Positive for CK7 and TTF 1. Positive for P 63. Napsin A has rare immuno reactivity. CT-guided biopsy of the nodule in the superior segment of the right lower lobe on 04/02/2022 revealed: Non-small cell lung carcinoma. PFTs revealed: If even of 44% and DLCO of 31%. PMH of: COPD, DM, Continued tobacco use despite recurrent hospitalizations for copd exacerbations, hypothyroid During the course of hospitalization patient was also managed for diabetes mellitus x2 with insulin sliding scale and diabetic diet and instructed to resume metformin upon discharge In regard to GERD he had no acute symptoms continue PPI Hypothyroidism continue Synthroid He was admitted to the hospital, back in January. He presented to [facility] with complaints of sudden onset dyspnea after he woke up in the morning. not responsive to home inhalers / bronchodilators. Patient endorses a chronic cough, but slightly increased in productivity over the last several days -- whitish/yellow sputum. He denies any fevers or chills. He reports feeling at baseline the preceeding 24 hours prior to ED arrival. He reports compliance with his inhalers / nebulizers. He reports smoking 2-3 cigarettes daily. He denies any sick contacts. He reports that due to the recent cold weather, he has a flare of his asthma. In the ED, the patient was treated with systemic steroids, several nebulized bronchodilators and antibiotics. He remains symptomatic with wheezing/ REED. Hospital course: he was admitted to hospital with persistent symptoms of shortness of breath, wheezing and cough likely due to acute COPD exacerbation secondary to continued tobacco use and acute bacterial bronchitis, patient treated with IV steroids, scheduled and as needed bronchodilators and azithromycin patient was also continued on theophylline and montelukast. He responded well to above treatment. He seemed to be at baseline. Discharged home on azithromycin to finish a total 5 day course of antibiotics. Recommended to continue home dose of steroids and updraft treatment. He was strongly advised to abstain from smoking. Patient is gradually weaning, currently smoking 5-8 cigarettes, he declined nicotine patch. FAMILY HISTORY: Dad of throat cancer. Brother of lung cancer. There were both smokers. 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 He is not . He has 4 children. He smoked 2-2 and half packs per day. Now down to half a pack a day. . Review of Systems - Constitutional Reports no additional constitutional complaints, Denies fever(s), Denies weakness, Denies weight loss - Eyes Reports no additional eye complaints - ENT Reports no additional ear, nose, mouth, and throat complaints - Cardiovascular Reports no additional cardiovascular complaints - Respiratory Reports no additional respiratory complaints - Gastrointestinal Reports no additional gastrointestinal complaints - Genitourinary Genitourinary: Reports no additional male genitourinary complaints - Musculoskeletal Reports no additional musculoskeletal complaints - Integumentary/Breasts Skin/Breast: Reports no additional skin complaints - Neurologic Reports no additional neurologic complaints, Reports weakness - Psychiatric Reports no additional psychiatric complaints - Endocrine Reports no additional endocrine complaints - Hematologic/Lymphatic Reports no additional hematologic/lymphatic complaints - Allergic/Immunologic Reports no additional allergic/immunologic complaints [facility] Medical History: Medical History (Last Reviewed 09/23/23 @ 11:15 by Jaime Valderrama) Abnormal PET scan of colon Acute exacerbation of chronic obstructive pulmonary disease Asthma Chronic respiratory failure COPD (chronic obstructive pulmonary disease) Diabetes GERD (gastroesophageal reflux disease) Hypertension Hypothyroidism Osteoarthritis Osteoporosis Oxygen dependent Sepsis Tobacco dependence Ureteral calculi Functional capacity: uses cane/walker Family History: Family History (Last Reviewed 09/23/23 @ 11:15 by Jaime Valderrama) Father Throat cancer Brother Lung cancer Other Hypertension Surgical History: Surgical History (Last Reviewed 09/23/23 @ 11:15 by Jaime Valderrama) History of appendectomy History of cataract surgery Onset Date: ~2011 History of lithotripsy Onset Date: ~2008 History of lung biopsy Onset Date: ~2021 Social History: Social History (Last Reviewed 09/23/23 @ 11:15 by Jaime Valderrama) Living Situation History: Household Members: Spouse Household Members Other:: 1 Housing: Apartment Are you a primary career and technology education teacher to a significant other at home: No Do you presently have visiting nurse or other home services: No Alcohol History Details: 1. How often do you have a drink containing alcohol?: a. Never Tobacco History: Patient Tobacco Use Status: Current everyday Tobacco Tobacco use type: Cigarette Cigarette Packs Per Day: 0.5 Years Smoked: 62 e-Cigarette/Vaping Use: Currently Using Second Hand Smoke Exposure: No Substance Use History: Use of substances other than those prescribed or required for medical reasons : No Domestic Abuse History: Have you been hit, kicked, punched, or otherwise hurt by someone within the past year? If so, by whom?: No Do you feel safe in your current relationship?: Yes Advance Directives: Advance Directives Date on File: 12/18/20 Homicidal Assessment: Do you have thoughts of harming others: None Do you have a plan to hurt others: No Plan Do you have the means to hurt others: No Nutrition Assessment: Recently lost weight without trying: Yes How much weight loss: 2-13 pounds Eating poorly because of decreased appetite: No Nutrition screen score: 3 Patient : No Occupation Assessmet: service: No Current occupational status: unemployed Current occupational status: retired Home Medications and Allergies Current Medications: Current Medications Acetaminophen (Acetaminophen 325 Mg Tablet) 650 mg PO ONCE MEHDI Stop: 09/23/23 23:59 Diphenhydramine HCl (Diphenhydramine Hcl 50 Mg/Ml Vial) 25 mg IVPUSH ONCE MEHDI Stop: 09/23/23 23:59 Heparin Sodium (Porcine) (Heparin Sodium,Porcine Flush 500 Unit/5 Ml Syringe) 500 unit IVFLUSH ONCE ONE Stop: 09/23/23 23:59 Ondansetron HCl (Ondansetron Odt 8 Mg Tab.Rapdis) 8 mg TRANSLINGU ONCE MEHDI Stop: 09/23/23 23:59 Home Medications Medication Instructions Recorded Confirmed Type omeprazole 20 mg capsule,delayed 20 mg PO DAILY@0630 12/01/20 09/23/23 History release multivitamin with folic acid 400 1 tab PO DAILY 08/28/22 09/23/23 History mcg tablet (Daily-Leslie (with folic acid)) levothyroxine 88 mcg tablet 88 mcg PO DAILY@0600 06/17/23 09/23/23 History acetaminophen 325 mg tablet 650 mg PO Q6H PRN Pain 06/18/23 09/23/23 History (Tylenol) topiramate 50 mg tablet 50 mg PO DAILY 06/18/23 09/23/23 History ipratropium 0.5 mg-albuterol 3 mg 3 ml inhalation QID PRN wheezing 07/02/23 09/23/23 History (2.5 mg base)/3 mL nebulization soln topiramate 50 mg tablet 100 mg PO BEDTIME 07/02/23 09/23/23 History prednisone 20 mg tablet 20 mg PO DAILY 08/12/23 09/23/23 History ibandronate 150 mg tablet 150 mg PO QMONTH 08/15/23 09/23/23 History testosterone cypionate 200 mg/mL 100 mg IM Q2W 08/15/23 09/23/23 History intramuscular oil cholecalciferol (vitamin D3) 25 50 mcg PO DAILY 09/13/23 09/23/23 History mcg (1,000 unit) tablet duloxetine 30 mg capsule,delayed 30 mg PO DAILY 09/13/23 09/23/23 History release fluticasone fur. 200 mcg-umeclid 1 inh inhalation DAILY 09/13/23 09/23/23 History 62.5 mcg-vilant 25 mcg inhalat.powder (Trelegy Ellipta) metformin 500 mg tablet 500 mg PO DAILY 09/13/23 09/23/23 History mirtazapine 7.5 mg tablet 7.5 mg PO BEDTIME 09/13/23 09/23/23 History nabumetone 500 mg tablet 500 mg PO BID PRN Pain 09/13/23 09/23/23 History pyridoxine (vitamin B6) 50 mg 50 mg PO DAILY 09/13/23 09/23/23 History tablet tramadol 50 mg tablet 50 mg PO Q6H PRN Pain 09/13/23 09/23/23 History Allergies Allergy/AdvReac Type Severity Reaction Status Date / Time pollen extracts [POLLEN] Allergy Intermediate RUNNING Verified 09/23/23 11:15 NOSE, WATERY EYES, SNEEZING varenicline [VARENICLINE] AdvReac Unknown PALPITATION Verified 09/23/23 11:15 S Exam Vital signs: Vital Signs Temp 97.8 F 08/31/23 11:03 Pulse 72 08/31/23 11:03 Resp 20 08/31/23 11:03 BP 98/55 L 08/31/23 11:03 Pulse Ox 94 08/31/23 11:03 O2 Del Method Room Air 08/31/23 11:03 Weight 44.6 kg BMI result Body Mass Index 16.4 - Constitutional Present: mild distress - Routine HEENT Exam Head: Present: normal inspection Eye: Present: normal appearance ENT: Present: mucous membranes moist - Routine Neck Exam Present: full ROM - Routine Respiratory Exam Present: decreased breath sounds - Routine Cardiovascular Exam Cardiovascular: Present: RRR, S1, S2 - Routine Abdominal Exam Present: normal bowel sounds, nontender - Routine Extremities Exam Present: nontender - Routine Back/Spine/Pelvis Exam Back/Spine: Present: full ROM - Routine Skin Exam Present: intact - Routine Neurological Exam Present: alert, oriented X3, normal speech - Detailed Neurological Exam: Coma Scale Eye Opening: Spontaneous (4) - Routine Psychiatric Exam Present: normal affect Data - Labs CBC & Chem 7: 08/12/23 12:12 08/12/23 12:12 Assessment and Plan Patient Active problem list reviewed?: Yes (1) Lung cancer Status: Acute Assessment and plan: This is a pleasant 76-year-old gentleman with recent diagnosis of non-small cell lung carcinoma. PET scan from September, revealed: 1. A posterior pleural-based FDG avid right lower lobe pulmonary nodule is strongly suspicious for a malignant lesion. 2. A second diaphragmatic right lower lobe pulmonary nodule his mild FDG avid, also strongly suspicious for malignancy. 3. 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 4. Increased FDG activity in the diaphragm and intercostal muscles bilaterally is evidence of increased respiratory effort. 5. There is a focus of increased FDG activity in the rectosigmoid colon as described above. While this may be physiological, focal appearance is suspicious for malignancy. Correlation with colonoscopy is recommended. 6. No additional abnormalities are present suspicious for other metastatic or malignant lesions. 7. Vascular calcifications including coronary. PET scan from 04/29 revealed: Abnormal metabolic activity in the largest nodule right lower lobe abutting the posterior pleura. The mass is almost same size, may be slightly larger 1 cm. Metabolic activity has increased suggesting of increased angiogenesis. Second lesion in the right lower lobe posterior medial segment appears cavitary on PET. It has increased in size and increase in metabolic activity slightly. Third lesion calcified left lower lobe no change. Suspect mild early sigmoid diverticulitis. Correlate with clinical exam Immuno studies: EGFR negative. PDL1 negative. K janie mutational status, G12C is negative. He underwent a colonoscopy on 05/20, by GI to sort out the question of abnormality in rectosigmoid colon. This revealed tubular adenomas but nothing worrisome.. Database: 05/29: CBC: WBC: 9, HGB 10.4, HCT 34.4, PLT 394. CMP: Lytes WNL, glucose 139, BUN 17, WIND TUNNEL TECHNICIAN 0.9. A lb 3.8. Ca L8 0.9. CEA 9.90. LFTs: 0.4/104/12/11. He was deemed a candidate for SBRT therapy. He initially declined radiation but then was willing to do it. He was seen at [facility] for radiation therapy consultation. He was then referred to [facility]. The recommendation is to treat him with 5 fractions to each right lung nodule, given every other day, over 2-4 weeks, (can be treated simultaneously or sequentially.) Pt. missed his appointment with Dr. Fortune. He ended up here by mistake. Dr. Fortune graciously spoke with him via interpreter for the deaf at length about the benefit of radiation in terms of curing him and the urgency of starting treatment. However, he declined. He had a nephew who succumbed to complications of radiation so he doesn't wish to proceed. We called him the following day and tried to convince him however he did not budge. He was getting angry at our persistence. He has not been doing too well as of late. He had a CT scan of the chest from 04/12 which revealed: 1. No evidence of pulmonary emboli. 2. Multiple pleural-based masses in the right hemithorax. One of these has decreased in size but the others have increased in size. VTE: negative. He was admitted to the hospital on 06/17. 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 Patient states he has been having wheezing, dyspnea worse with exertion and cough with clear sputum production that has been ongoing for the last 3-4 days. It is progressive and got worse. He continues to smoke tobacco. Patient has refused therapy for lung cancer. He denies fever, chills, chest discomfort, palpitations, abdominal pain, changes in urinary or bowel habits. In the emergency department, patient with dyspnea and tachypnea despite multiple DuoNeb treatments. Chest x-ray from 06/17 revealed: Within a background of complex right hemithoracic pleural-based masses, best seen on prior CT from 04/12/2023, there is suggestion of increased interstitial thickening suspicious for an acute infectious/inflammatory process. A short-term follow-up chest CT is recommended to ensure improvement and rule out progression of the masses. My concern is disease progression. I proceeded with a CT scan of the chest for further evaluation. This was done on 07/28 and revealed: 1. Manifestations of lung cancer with growing masses in the right lower lobe and right upper lobe. 2. Mediastinal lymphadenopathy. 3. Calcified granuloma in the left lower lobe and calcified granuloma in the right upper lobe. 4. 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 This has confirmed disease progression. I proceeded with a CT-guided biopsy of one of the pleural based masses. This was done on 08/26 and revealed: Poorly differentiated carcinoma with necrosis. This matches is reassuring cancer. Molecular testing is pending. Discussed further treatment for the recurrent lung cancer. He is rather frail and not really a chemotherapy candidate. He was deemed a candidate for immunotherapy with a PD-1 inhibitor nivolumab. It is a fully human immunoglobulin G4 PD-1 immune checkpoint inhibitor antibody. It blocks PD-1 and remote anti tumor immunity. It is effective for treating non-small cell lung carcinoma. He was given information about the drug. I discussed with him and his daughter, who was available by phone, via interpreter for the deaf use. Went over some details of the treatment. He is not sure if he wants to proceed with it at this point. Both her daughter, our nurse and I tried to convince him to at least try 1 cycle and see how he does with it. He can always stop if he does not like it but continue if he can tolerate the treatment. At this point he did not agree. PLAN: I offered to wait and let him think about it. He will return in 1 week for a follow-up and let us know about his decision. Will proceed according to his wishes. Thank you, Cc: All his and his 's questions were answered to their satisfaction. Thank you, Cc: Luz Mccall. Silvano Abad. - Time Spent With Patient Time Spent with Patient (in minutes): 30
[2023-09-23 11:15] VITALS: BP 126/64; PULSE 104
--- NOTE | 2023-09-23 11:50 | MHC.HEMONCMA ---
patient seen today for lung ca, vss, labs, following up with provider in 1 week
--- NOTE | 2023-09-23 12:06 | MHC.HEMONC ---
Pt here for follow up with Dr Moran and teaching on Nivolumab. Museum Exhibit Technician present. Dr Moran spoke with patient and family also a daughter via phone. Routine, medications, side effects reviewed with patient and family with fulfillment specialist present. Pt states he feels well now and concerned about side effects and not feeling well does not want treatment. Reinforced that this treatment is very well tolerated, we have to inform you of all side effects but most people only get a few side effects and we monitor carefully and treat any side effects. Pt continued to refuse treatment. Asked patient to try treatment today and if he does not like it we can stop. This nurse unable to convince patient to try treatment. Pt aware that his condition will not improve without treatment. Pt instructed that he can change his mind at any time. Information on Immunotherapy and Nivolumab given to patient. Follow up appointment scheduled for Wednesday10/04/23. Pt states will think about it. Pt departed via wheel chair with family.
--- NOTE | 2023-10-04 09:58 | PM.HEMONCPN ---
Medical Summary - Medical Summary Date of Service: 10/04/23 Chief complaint: Follow-up for: Non-small cell carcinoma of the lung. Primary Care Provider: Luz Mccall NP Medical Summary: DIAGNOSIS: Non-small cell lung carcinoma. Interval History Interval history: Raudel Finnegan is a pleasant 77 year old gentleman, here for a follow-up visit. He complains of pain in his chest wall. He was taking half of a tramadol tablet. He saw his primary who advised him to take 1 pill: 50 mg along with 2 Tylenols. He felt rather dizzy when he started doing that. He went back to half a pill, as needed. That appears to do the trick. Other than that, he says he is feeling well. He was here last week, for teaching and to start nivolumab. However at that time he had declined. I advised him to return in a week, after giving it some thought. He denies difficulty breathing. His energy level is reasonable. No fever chills or night sweats. He denies headaches, nor dizziness. He complains of chest pain and shortness of breath. He denies cough, no sputum. He denies any abdominal pain nausea vomiting heartburn indigestion. Bowels are working without any gross blood in it. Appetite is good. He has been taking Ensure. His weight has stabilized. Denies any urinary complaints. He complains of right knee pain radiating down from the back. He has history of disc problems and a pinched nerve. Denies any focal weakness. Denies depression. Denies rashes no pruritus. He is in good spirits. Rest of the review of system is unremarkable. RECENT HISTORY: He had a biopsy of the right lower lobe of the lung on 08/26. Pathology revealed: Poorly differentiated carcinoma with necrosis. Features are similar to the patient's right lung for FNA.. Molecular studies are pending. He tells me, he continues to have pain in his right lower chest. That is pruritic. He was taking Nebumetone, PRN, however he ran out. He grades the pain as 9 on 1-10 scale. He has oxycodone at home but he'd rather not take that. He has tried tramadol which helps. INTERIM HISTORY: He came in a couple of weeks ago, after a year's hiatus. He has not been doing too well as of late. He had a CT scan of the chest from 04/12 which revealed: 1. No evidence of pulmonary emboli. 2. Multiple pleural-based masses in the right hemithorax. One of these has decreased in size but the others have increased in size. VTE: negative. He was admitted to the hospital on 06/17. 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 Patient states he has been having wheezing, dyspnea worse with exertion and cough with clear sputum production that has been ongoing for the last 3-4 days. It is progressive and got worse. He continues to smoke tobacco. Patient has refused therapy for lung cancer. He denies fever, chills, chest discomfort, palpitations, abdominal pain, changes in urinary or bowel habits. In the emergency department, patient with dyspnea and tachypnea despite multiple DuoNeb treatments. Chest x-ray from 06/17 revealed: Within a background of complex right hemithoracic pleural-based masses, best seen on prior CT from 04/12/2023, there is suggestion of increased interstitial thickening suspicious for an acute infectious/inflammatory process. A short-term follow-up chest CT is recommended to ensure improvement and rule out progression of the masses. Previous HISTORY: He was admitted to the hospital on 05/28/22, for an overnight stay. Discharge summary: The patient was admitted to the hospital for treatment of COPD exacerbation. Treated with IV steroids , azithromycin and bronchodilator nebulizers with good response as his breathing improved significantly. He was able to ambulate on room air with no reported dyspnea, maintaining his O2 sat in 90s. Was discharged home on azithromycin, prednisone, to continue home nebulizers. Continue prednisone as prescribed. continue azithromycin for the next 3 days. Use your home nebulizer for the next 5 days every 4-6 hours Presenting history: He was recently diagnosed with non-small cell lung carcinoma. His workup has been as follows: CT scan of the chest from 10/21/2021: 1. No evidence of pulmonary emboli 2. Increasing size of 2 right lung masses suspicious for progressive malignancy PET scan from 10/21/2021: 1. A posterior pleural-based FDG avid right lower lobe pulmonary nodule is strongly suspicious for a malignant lesion. 2. A second diaphragmatic right lower lobe pulmonary nodule his mildly FDG avid, also strongly suspicious for malignancy. 3. 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 4. Increased FDG activity in the diaphragm and intercostal muscles bilaterally is evidence of increased respiratory effort. 5. There is a focus of increased FDG activity in the rectosigmoid colon as described above. While this may be physiological, focal appearance is suspicious for malignancy. Correlation with colonoscopy is recommended. 6. No additional abnormalities are present suspicious for other metastatic or malignant lesions. 7. Vascular calcifications including coronary. FNA of the right lung nodule from 02/25/2022: Positive for malignancy, consistent with non-small cell lung carcinoma. Positive for CK7 and TTF 1. Positive for P 63. Napsin A has rare immuno reactivity. CT-guided biopsy of the nodule in the superior segment of the right lower lobe on 04/02/2022 revealed: Non-small cell lung carcinoma. PFTs revealed: If even of 44% and DLCO of 31%. PMH of: COPD, DM, Continued tobacco use despite recurrent hospitalizations for copd exacerbations, hypothyroid During the course of hospitalization patient was also managed for diabetes mellitus x2 with insulin sliding scale and diabetic diet and instructed to resume metformin upon discharge In regard to GERD he had no acute symptoms continue PPI Hypothyroidism continue Synthroid He was admitted to the hospital, back in January. He presented [place] [facility] with complaints of sudden onset dyspnea after he woke up in the morning. not responsive to home inhalers / bronchodilators. Patient endorses a chronic cough, but slightly increased in productivity over the last several days -- whitish/yellow sputum. He denies any fevers or chills. He reports feeling at baseline the preceeding 24 hours prior to ED arrival. He reports compliance with his inhalers / nebulizers. He reports smoking 2-3 cigarettes daily. He denies any sick contacts. He reports that due to the recent cold weather, he has a flare of his asthma. In the ED, the patient was treated with systemic steroids, several nebulized bronchodilators and antibiotics. He remains symptomatic with wheezing/ REED. Hospital course: he was admitted to hospital with persistent symptoms of shortness of breath, wheezing and cough likely due to acute COPD exacerbation secondary to continued tobacco use and acute bacterial bronchitis, patient treated with IV steroids, scheduled and as needed bronchodilators and azithromycin patient was also continued on theophylline and montelukast. He responded well to above treatment. He seemed to be at baseline. Discharged home on azithromycin to finish a total 5 day course of antibiotics. Recommended to continue home dose of steroids and updraft treatment. He was strongly advised to abstain from smoking. Patient is gradually weaning, currently smoking 5-8 cigarettes, he declined nicotine patch. FAMILY HISTORY: Dad of throat cancer. Brother of lung cancer. There were both smokers. 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 He is not . He has 4 children. He smoked 2-2 and half packs per day. Now down to half a pack a day. . Review of Systems - Constitutional Reports no additional constitutional complaints, Denies lack of energy, Denies malaise, Denies weight loss - Eyes Reports no additional eye complaints - ENT Reports no additional ear, nose, mouth, and throat complaints - Cardiovascular Reports no additional cardiovascular complaints - Respiratory Reports no additional respiratory complaints - Gastrointestinal Reports no additional gastrointestinal complaints - Genitourinary Genitourinary: Reports no additional male genitourinary complaints - Musculoskeletal Reports no additional musculoskeletal complaints - Integumentary/Breasts Skin/Breast: Reports no additional skin complaints - Neurologic Reports no additional neurologic complaints, Denies weakness - Psychiatric Reports no additional psychiatric complaints - Endocrine Reports no additional endocrine complaints - Hematologic/Lymphatic Reports no additional hematologic/lymphatic complaints - Allergic/Immunologic Reports no additional allergic/immunologic complaints [facility] Medical History: Medical History (Last Reviewed 10/04/23 @ 09:59 by Jaime Valderrama) Abnormal PET scan of colon Acute exacerbation of chronic obstructive pulmonary disease Asthma Chronic respiratory failure COPD (chronic obstructive pulmonary disease) Diabetes GERD (gastroesophageal reflux disease) Hypertension Hypothyroidism Osteoarthritis Osteoporosis Oxygen dependent Sepsis Tobacco dependence Ureteral calculi Functional capacity: uses cane/walker Patient : No Family History: Family History (Last Reviewed 10/04/23 @ 09:59 by Jaime Valderrama) Father Throat cancer Brother Lung cancer Other Hypertension Surgical History: Surgical History (Last Reviewed 10/04/23 @ 09:59 by Jaime Valderrama) History of appendectomy History of cataract surgery Onset Date: ~2011 History of lithotripsy Onset Date: ~2008 History of lung biopsy Onset Date: ~2021 Social History: Social History (Last Reviewed 10/04/23 @ 09:59 by Jaime Valderrama) Living Situation History: Household Members: Spouse Household Members Other:: 1 Housing: Apartment Are you a primary administrator health care facility to a significant other at home: No Do you presently have visiting nurse or other home services: No Alcohol History Details: 1. How often do you have a drink containing alcohol?: a. Never Tobacco History: Patient Tobacco Use Status: Current everyday Tobacco Tobacco use type: Cigarette Cigarette Packs Per Day: 0.5 Years Smoked: 62 e-Cigarette/Vaping Use: Currently Using Second Hand Smoke Exposure: No Substance Use History: Use of substances other than those prescribed or required for medical reasons: No Domestic Abuse History: Have you been hit, kicked, punched, or otherwise hurt by someone within the past year? If so, by whom?: No Do you feel safe in your current relationship?: Yes Advance Directives: Advance Directives Date on File: 12/18/20 Homicidal Assessment: Do you have thoughts of harming others: None Do you have a plan to hurt others: No Plan Do you have the means to hurt others: No Nutrition Assessment: Recently lost weight without trying: Yes How much weight loss: 2-13 pounds Eating poorly because of decreased appetite: No Nutrition screen score: 3 Patient : No Occupation Assessmet: service: No Current occupational status: unemployed Current occupational status: retired Oncology Screenings - ECOG Performance Status ECOG Performance Status: 1 Home Medications and Allergies Current Medications: Current Medications Acetaminophen (Acetaminophen 325 Mg Tablet) 650 mg PO ONCE MEHDI Stop: 10/04/23 23:59 Diphenhydramine HCl (Diphenhydramine Hcl 50 Mg/Ml Vial) 25 mg IVPUSH ONCE MEHDI Stop: 10/04/23 23:59 Heparin Sodium (Porcine) (Heparin Sodium,Porcine Flush 500 Unit/5 Ml Syringe) 500 unit IVFLUSH ONCE ONE Stop: 10/04/23 23:59 Ondansetron HCl (Ondansetron Odt 8 Mg Tab.Rapdis) 8 mg TRANSLINGU ONCE MEHDI Stop: 10/04/23 23:59 Home Medications Medication Instructions Recorded Confirmed Type omeprazole 20 mg capsule,delayed 20 mg PO DAILY@0630 12/01/20 10/04/23 History release multivitamin with folic acid 400 1 tab PO DAILY 08/28/22 10/04/23 History mcg tablet (Daily-Leslie (with folic acid)) levothyroxine 88 mcg tablet 88 mcg PO DAILY@0600 06/17/23 10/04/23 History acetaminophen 325 mg tablet 650 mg PO Q6H PRN Pain 06/18/23 10/04/23 History (Tylenol) topiramate 50 mg tablet 50 mg PO DAILY 06/18/23 10/04/23 History ipratropium 0.5 mg-albuterol 3 mg 3 ml inhalation QID PRN wheezing 07/02/23 10/04/23 History (2.5 mg base)/3 mL nebulization soln topiramate 50 mg tablet 100 mg PO BEDTIME 07/02/23 10/04/23 History prednisone 20 mg tablet 20 mg PO DAILY 08/12/23 10/04/23 History ibandronate 150 mg tablet 150 mg PO QMONTH 08/15/23 10/04/23 History testosterone cypionate 200 mg/mL 100 mg IM Q2W 08/15/23 10/04/23 History intramuscular oil cholecalciferol (vitamin D3) 25 50 mcg PO DAILY 09/13/23 10/04/23 History mcg (1,000 unit) tablet duloxetine 30 mg capsule,delayed 30 mg PO DAILY 09/13/23 10/04/23 History release fluticasone fur. 200 mcg-umeclid 1 inh inhalation DAILY 09/13/23 10/04/23 History 62.5 mcg-vilant 25 mcg inhalat.powder (Trelegy Ellipta) metformin 500 mg tablet 500 mg PO DAILY 09/13/23 10/04/23 History mirtazapine 7.5 mg tablet 7.5 mg PO BEDTIME 09/13/23 10/04/23 History nabumetone 500 mg tablet 500 mg PO BID PRN Pain 09/13/23 10/04/23 History pyridoxine (vitamin B6) 50 mg 50 mg PO DAILY 09/13/23 10/04/23 History tablet tramadol 50 mg tablet 50 mg PO Q6H PRN Pain 09/13/23 10/04/23 History Allergies Allergy/AdvReac Type Severity Reaction Status Date / Time pollen extracts [POLLEN] Allergy Intermediate RUNNING Verified 10/04/23 09:59 NOSE, WATERY EYES, SNEEZING varenicline [VARENICLINE] AdvReac Unknown PALPITATION Verified 10/04/23 09:59 S Exam Vital signs: Vital Signs Temp 97.8 F 08/31/23 11:03 Pulse 104 H 09/23/23 11:15 Resp 20 08/31/23 11:03 BP 126/64 09/23/23 11:15 Pulse Ox 94 08/31/23 11:03 O2 Del Method Room Air 08/31/23 11:03 Weight 44.6 kg BMI result Body Mass Index 16.4 - Constitutional Present: mild distress - Routine HEENT Exam Head: Present: normal inspection Eye: Present: normal appearance ENT: Present: mucous membranes moist - Routine Neck Exam Present: full ROM - Routine Respiratory Exam Present: decreased breath sounds - Routine Cardiovascular Exam Cardiovascular: Present: RRR, S1, S2 - Routine Abdominal Exam Present: normal bowel sounds, nontender - Routine Extremities Exam Present: nontender - Routine Back/Spine/Pelvis Exam Back/Spine: Present: full ROM - Routine Skin Exam Present: intact - Routine Neurological Exam Present: alert, oriented X3, normal speech - Detailed Neurological Exam: Coma Scale Eye Opening: Spontaneous (4) - Routine Psychiatric Exam Present: normal affect Data - Labs CBC & Chem 7: 10/04/23 10:11 10/04/23 10:11 Assessment and Plan Patient Active problem list reviewed?: Yes (1) Lung cancer Status: Acute Assessment and plan: This is a pleasant 76-year-old gentleman with recent diagnosis of non-small cell lung carcinoma. PET scan from September, revealed: 1. A posterior pleural-based FDG avid right lower lobe pulmonary nodule is strongly suspicious for a malignant lesion. 2. A second diaphragmatic right lower lobe pulmonary nodule his mild FDG avid, also strongly suspicious for malignancy. 3. 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 4. Increased FDG activity in the diaphragm and intercostal muscles bilaterally is evidence of increased respiratory effort. 5. There is a focus of increased FDG activity in the rectosigmoid colon as described above. While this may be physiological, focal appearance is suspicious for malignancy. Correlation with colonoscopy is recommended. 6. No additional abnormalities are present suspicious for other metastatic or malignant lesions. 7. Vascular calcifications including coronary. PET scan from 04/29 revealed: Abnormal metabolic activity in the largest nodule right lower lobe abutting the posterior pleura. The mass is almost same size, may be slightly larger 1 cm. Metabolic activity has increased suggesting of increased angiogenesis. Second lesion in the right lower lobe posterior medial segment appears cavitary on PET. It has increased in size and increase in metabolic activity slightly. Third lesion calcified left lower lobe no change. Suspect mild early sigmoid diverticulitis. Correlate with clinical exam Immuno studies: EGFR negative. PDL1 negative. K janie mutational status, G12C is negative. He underwent a colonoscopy on 05/20, by GI to sort out the question of abnormality in rectosigmoid colon. This revealed tubular adenomas but nothing worrisome.. Database: 05/29: CBC: WBC: 9, HGB 10.4, HCT 34.4, PLT 394. CMP: Lytes WNL, glucose 139, BUN 17, [employer] 0.9. A lb 3.8. Ca L8 0.9. CEA 9.90. LFTs: 0.4/104/12/11. He was deemed a candidate for SBRT therapy. He initially declined radiation but then was willing to do it. He was seen at [facility] for radiation therapy consultation. He was then referred to [facility]. The recommendation is to treat him with 5 fractions to each right lung nodule, given every other day, over 2-4 weeks, (can be treated simultaneously or sequentially.) Pt. missed his appointment with Dr. Fortune. He ended up here by mistake. Dr. Fortune graciously spoke with him via jewel hole rough opener at length about the benefit of radiation in terms of curing him and the urgency of starting treatment. However, he declined. He had a nephew who succumbed to complications of radiation so he doesn't wish to proceed. We called him the following day and tried to convince him however he did not budge. He was getting angry at our persistence. He has not been doing too well as of late. He had a CT scan of the chest from 04/12 which revealed: 1. No evidence of pulmonary emboli. 2. Multiple pleural-based masses in the right hemithorax. One of these has decreased in size but the others have increased in size. VTE: negative. He was admitted to the hospital on 06/17. 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 Patient states he has been having wheezing, dyspnea worse with exertion and cough with clear sputum production that has been ongoing for the last 3-4 days. It is progressive and got worse. He continues to smoke tobacco. Patient has refused therapy for lung cancer. He denies fever, chills, chest discomfort, palpitations, abdominal pain, changes in urinary or bowel habits. In the emergency department, patient with dyspnea and tachypnea despite multiple DuoNeb treatments. Chest x-ray from 06/17 revealed: Within a background of complex right hemithoracic pleural-based masses, best seen on prior CT from 04/12/2023, there is suggestion of increased interstitial thickening suspicious for an acute infectious/inflammatory process. A short-term follow-up chest CT is recommended to ensure improvement and rule out progression of the masses. My concern is disease progression. I proceeded with a CT scan of the chest for further evaluation. This was done on 07/28 and revealed: 1. Manifestations of lung cancer with growing masses in the right lower lobe and right upper lobe. 2. Mediastinal lymphadenopathy. 3. Calcified granuloma in the left lower lobe and calcified granuloma in the right upper lobe. 4. 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 This has confirmed disease progression. I proceeded with a CT-guided biopsy of one of the pleural based masses. This was done on 08/26 and revealed: Poorly differentiated carcinoma with necrosis. This matches is reassuring cancer. Molecular testing is pending. Discussed further treatment for the recurrent lung cancer. He is rather frail and not really a chemotherapy candidate. He was deemed a candidate for immunotherapy with a PD-1 inhibitor nivolumab. It is a fully human immunoglobulin G4 PD-1 immune checkpoint inhibitor antibody. It blocks PD-1 and remote anti tumor immunity. It is effective for treating non-small cell lung carcinoma. He was given information about the drug. I again discussed with him and his significant other via jewel hole rough opener. Went over some details of the treatment. I offered for him to at least try obe cycle and see how he does with it. He can always stop if he does not like it but continue if he can tolerate the treatment. He is now agreeable to trying that. PLAN: He is scheduled to start on 10/07 at 13:00. He will let us know after if he wishes to continue. Will proceed according to his wishes. All his and his 's questions were answered to their satisfaction. Thank you, Cc: Luz Mccall. Silvano Aabd. - Time Spent With Patient Time Spent with Patient (in minutes): 26
[2023-10-04 10:12] LABS: MANUAL DIFF FLAG NO
[2023-10-04 10:18] LABS: Basophils Percent Auto 0.2 % (0-2); Eosinophils Absolute Auto 0.2 X10*3/uL (0.0-0.4); Eosinophils Percent Auto 1.3 % (0-4); Hematocrit 32.7 % (42.0-52.0); Hemoglobin 9.7 g/dl (14.0-18.0); Imm Gran Abs Auto 0.08 X10*3/uL (0.00-0.03); Imm Gran Pct Auto 0.6 % (0.0-0.4); Lymphocytes Absolute Auto 1.4 X10*3/uL (1.2-4.9); Lymphocytes Percent Auto 11.3 % (20-40); Mean Corpuscular HGB Conc 29.7 g/dl (31.0-36.0); Mean Corpuscular Hemoglobin 22.8 pg (27.0-33.0); Mean Corpuscular Volume 76.9 fL (80.0-98.0); Mean Platelet Volume 9.3 fL (9.4-12.4); Monocytes Absolute Auto 0.8 X10*3/uL (0.1-1.2); Monocytes Percent Auto 6.2 % (2-11); Neutrophils Absolute Auto 10.2 x10*3/uL (2.0-8.3); Neutrophils Percent Auto 80.4 % (45-73); Platelet Count 621 X10*3/uL (160-400); Red Blood Count 4.25 X10*6/uL (4.60-5.80); Red Cell Distribution Width 19.3 % (11.0-16.0); White Blood Count 12.7 X10*3/uL (4.8-10.8)
[2023-10-04 10:36] LABS: Alanine Aminotransferase 8 U/L (0-40); Albumin Level 3.6 g/dL (3.5-5.0); Alkaline Phosphatase 98 U/L (39-117); Anion Gap 12 (12-20); Aspartate Amino Transferase 19 U/L (5-37); Bilirubin Total 0.3 mg/dL (0.0-1.0); Blood Urea Nitrogen 11 mg/dL (9-16); Calcium 9.9 mg/dL (8.4-10.2); Carbon Dioxide 31 mmol/L (22-29); Chloride 103 mmol/L (96-108); Creatinine Clr Calc Pharmacy 48.5; Estimated Glomerular Filt Rate > 60; Glucose Random 81 mg/dL (60-115); Sodium 142 mmol/L (135-145)
--- NOTE | 2023-10-04 16:22 | MHC.HEMONCMA ---
patient seen today for lung cancer, vss, following up with chemo 10/07
--- NOTE | 2023-10-07 15:56 | MHC.HEMONC ---
had called this am. Raudel is in hospital(ED) and will need to reschedule his chemo. This nurse called patient back with help of assistant golf professional Maria T. Voice message left for someone to call Oncology to reschedule his chemo once he is better. Call back # left.
--- NOTE | 2023-10-11 17:06 | HO.HEMONCSCH ---
Pt did not arrive for scheduled chemo appt new start. However, pt apparently never confirmed that they could make today's appt. Pt was scheduled to be treated on 10/07, but was seen at [facility] instead, chemo appt for that day was resched for today, pt was left VM w/ help of sales and events coordinator, asked to call back to confirm, but never did. Nurse asked HECTOR Sandoval to call pt at home today, but pt did not answer. Nurse cancelled today's appt.
== END 2023-11-29 | disposition home or self-care (01) ==
LOC: HO.ONC 09:40
PROVIDERS: PCP Nurse Practitioner Family; Referring Provider Surgery; Visit Provider Internal Medicine Medical Oncology
DX: C34.31 Malignant neoplasm of lower lobe, right bronchus or lung (principal); J44.9 Chronic obstructive pulmonary disease, unspecified; F17.210 Nicotine dependence, cigarettes, uncomplicated
CPT/HCPCS: 36415; 80053; 81235; 81275; 81276; 82378; 85025; 88360; 88363; 99204; 99213; 99214

== ENCOUNTER 2023-10-07 09:44 | Emergency (ER) | payer MEDICARE, MEDICAID, SELFPAY ==
[2023-10-07] VITALS (7 sets, daily range): BP systolic 106–115; BP diastolic 55–62; PULSE 82–104; RESP 16–28; TEMP 36.6–36.9; O2SAT 96–99; BMI 18.3
--- NOTE | ~2023-10-07 | CT_ITS ---
EXAMINATION: CT ANGIOGRAM OF THE CHEST WITH AND WITHOUT CONTRAST (CT PULMONARY ANGIOGRAM FOR PE) CLINICAL INFORMATION: Reason for Exam sob COMPARISON: No prior studies including CT chest August 14, 2023 TECHNIQUE: Prior to contrast administration, noncontrast localization images were obtained. Subsequently, multidetector volumetric imaging was performed from the thoracic inlet to below the diaphragms following the administration of 65 mL Omnipaque 350 intravenous contrast. No contrast reaction reported Sagittal, coronal, and MIP oblique sagittal reformatted images were obtained on the CT workstation, uploaded to PACS, and reviewed. This CT examination was performed using dose optimization techniques as appropriate, variously including the following: *Automated exposure control *Adjustment of mA and/or kV according to patient size (this includes techniques or standardized protocols for targeted exams where dose is matched to indication/reason for exam; i.e. extremities or head) *Use of iterative reconstruction technique Total exam dose-length product 144 mGy-cm FINDINGS: QUALITY OF STUDY/CONTRAST BOLUS: Satisfactory. PULMONARY ARTERIES: No pulmonary emboli. THORACIC AORTA: No aneurysm. Vascular calcifications of the wall of the thoracic aorta. LUNG: Severe emphysematous change of lungs. Redemonstration of multiple mass lesions in the right hemithorax as previously seen on the prior CAT scan August 14, 2023. 1. Pleural-based mass lateral right upper lobe now measuring 3.2 cm in diameter. Previous measurement 2.5 cm. Coronal image 34/76 series 10 2. There are 2 large masses in the posterior right lower lobe. Pleural-based nearly confluent with each other. Cephalad lesion measuring 6.5 cm superior-inferior in diameter. This previously measured 5.5 cm. Inferior mass now measures 9 cm AP. This previously measured 8 cm AP. Sagittal image 74/104 series 11. 6 mm calcified granuloma left lower lobe image 47/62 series 8. PLEURA: Pleural calcifications right hemithorax. MEDIASTINUM: Normal heart size. No pericardial effusion. No hilar or mediastinal lymphadenopathy. A few small subcentimeter lymph nodes in the mediastinum stable since prior study. No evidence of septal bowing or right heart strain. CORONARY ARTERY CALCIFICATION: None visualized on this study. CHEST WALL/AXILLA: No axillary or internal mammary lymphadenopathy. OSSEOUS STRUCTURES: No acute or suspicious osseous abnormality. UPPER ABDOMEN: Unremarkable. No reflux of contrast into the hepatic veins to suggest elevated right heart pressures. CT/CT angio chest PE protocol IMPRESSION: 1. No evidence of pulmonary embolism. 2. Severe emphysematous change of lungs. 3. Redemonstration of multiple mass lesions in the right hemithorax. These have increased in size since prior CAT scan August 14, 2023. VTE: negative.
--- NOTE | ~2023-10-07 | XR_ITS ---
EXAMINATION: XR CHEST CLINICAL INFORMATION: Dyspnea COMPARISON: Chest radiograph 09/12/2023 TECHNIQUE: Frontal view of the chest was obtained. FINDINGS: The heart size is normal. Large right sided lung masses are seen abutting the hilar region and right heart border. Another mass is seen abutting the lateral pleural surface. The masses appear minimally larger than they did on 09/12/2023. Calcified pleural plaques are again seen. Left lung appears clear aside from a calcified granuloma the left lung base. No pleural effusions or pneumothorax. XR/XR chest 1V IMPRESSION: Large right-sided lung masses with calcified pleural plaques.
--- OUTSIDE RECORDS SUMMARY | 2023-10-07 10:04 | XMS_ITS | Continuity of Care Document ---
Author Name Unknown Organization [facility] Address [address] [place] [address]- Care Team Providers Care Line Person Name Role Phone Kayla Chaney MD Primary Care Physician Encounter [facility] Date(s): 08/30/23 - 09/29/23 [facility] [address] [place] [id number]- Allergies, Adverse Reactions, Alerts Substance Reaction Severity [...] and Recorded Vaccine Date Status Refusal Reason [id number] 12y+ bivalent booster vax 11/17/22 Given [id number] 12y+ bivalent booster vax 10/16/22 Given influenza [...] (oldterm) 12 10/08/06 Given 1Result Comment: [09/24/2017] [facility] [id number] 2Admin Note: VIS 7- 3Admin Note: VIS given 06/23/11, guinean form 4Admin Note: VIS GIVEN 07/08/10 guinean 5Result Comment: [04/02/2016] VIS in Canadian given 6Admin Note: sep 06 7Admin Note: vis given in Canadian 8Admin Note: VIS given in Canadian 9Admin Note: VIS IN CHINESE 10Admin Note: VIS in guinean 11Admin Note: VIS-GIVEN 12Admin Note: VIS-GIVEN Medications albuterol CFC free 90 mcg/inh inhalation aerosol 1, puffs, Inhalation, 4 times a day, PRN, dx: J45.909, # 1 each, Refills 11, Tot. Refills 11, Maintenance, 03/15/23 9:26:00 EDT, Aerosol, Route to Pharmacy Electronically, [id number], [facility]/pharmacy #[id number], 158.3, cm, 03/15/23 [...] Refills, Maintenance, 08/30/23 11:40:00 EDT, [id number], 90, TOME NAZ TABLETA TODOS [place] BENITEZ, [...] EDT, Height Start Date: 08/09/23 Status: Ordered Freestyle Lancets See Instructions, # 600 each, Refills 2, Tot. Refills 2, Maintenance, use as directed 1 x daily forType 2 Diabetes Mellitus E11.9, 09/24/23 16:59:00 EDT, Supply, 158.3, cm, 09/21/23 14:30:00 EDT, Height Start Date: 09/24/23 Stop Date: 06/20/24 Status: Ordered Freestyle Lite Monitor See Instructions, # 1 each, Refills 0, Tot. Refills 0, Maintenance, use as directed for Type 2 Diabetes Mellitus E11.9, 09/24/23 12:26:00 EDT, Supply, 158.3, cm, 09/21/23 14:30:00 EDT, Height Start Date: 09/24/23 Stop Date: 10/24/23 Status: Ordered FREESTYLE LITE TEST STRIP FREESTYLE LITE TEST STRIP, See Instructions, # 100 Unknown, 10 Refills, USE TO CHECK BLOOD GLUCOSE 2 TIMES A DAY, 160, cm, 04/29/22 11:20:00 EDT, Height Start Date: 05/27/22 Status: Ordered Freestyle Test Strips See Instructions, # 600 each, Refills 2, Tot. Refills 2, Maintenance, use as directed 1 x daily forType 2 Diabetes Mellitus E11.9, 09/24/23 16:59:00 EDT, Supply, 158.3, cm, 09/21/23 14:30:00 EDT, Height Start Date: 09/24/23 Stop Date: 06/20/24 Status: Ordered ibandronate 150 mg oral tablet 1 tablet = 150 mg, By Mouth, Every 30 days, Swallow whole w/6-8oz water 1HR before first food, drink, med-Do not lie down for 1HR & until after first food, # 3 tablet, 2 Refills, Maintenance, 07/15/23 14:00:00 EDT, Tablet, [facility]/pharmacy #[id number], Partial... Start Date: 07/15/23 Status: Ordered levothyroxine 0.088 mg oral tablet 1 tablet = 88 mcg, By Mouth, Daily, # 90 tablet, 1 Refills, Maintenance, 03/16/23 12:53:00 EDT, Tablet, [facility]/pharmacy #[id number], Partial fill upon [...] Refills, Maintenance, 08/30/23 11:40:00 EDT, [id number], 158.3, cm, 08/09/23 11:09:00 EDT, Height Start Date: 08/30/23 Status: Ordered mirtazapine 7.5 mg oral tablet See Instructions, TOME ANZ TABLETA POR VIA ORAL AL ACOSTARSE, # 90 tablet, 3 Refills, 06/24/23 13:24:00 EDT, [id number], 158.3, cm, 05/19/23 14:14:00 EDT, Height Start Date: 06/24/23 Status: Ordered nabumetone 500 mg oral tablet See Instructions, TOME NAZ TABLETA POR VIA ORAL DOS VECES AL YAEL CUANDO SEA NECESARIO POR DOLOR, # 60 tablet, 1 Refills, Maintenance, 06/23/23 8:44:00 EDT, [id number], 158.3, cm, 05/19/23 14:14:00 EDT, Height Start Date: 06/23/23 Status: Ordered nicotine 14 mg/24 hr transdermal film, extended release 1 patch, Topically, Daily, for 30 days, # 30 patch, 1 Refills, Acute 11/26/23 13:54:00 EST, 09/27/23 13:54:00 EDT, Patch, [id number], Partial fill upon patient request if the prescription is for a schedule II opioid drug., 1 patch Topically Da... Start Date: 09/27/23 Stop Date: 11/26/23 Status: Ordered omeprazole 20 mg oral enteric coated capsule See Instructions, TOME NAZ CAPSULA SORIN SAVAGE BENITEZ, # 90 capsule, 3 Refills, Maintenance, 06/24/23 13:25:00 EDT, [id number], 158.3, cm, 05/19/23 14:14:00 EDT, Height Start Date: 06/24/23 Status: Ordered predniSONE 20 mg oral tablet TOME NAZ TABLETA SORIN SAVAGE D Start Date: 08/09/23 Status: Ordered Testosterone [...] 24 HOURS Start Date: 08/09/23 Status: Ordered traMADol 50 mg oral tablet 1 tablet = 50 mg, By Mouth, Every 4 hours, PRN for pain, for 14 days, # 84 tablet, 0 Refills, Acute10/05/23 14:50:00 EST, 09/21/23 14:50:00 EDT, Tablet, [id number], Partial fill upon patientrequest if the prescription is for a schedule II op... Start Date: 09/21/23 Stop Date: 10/05/23 Status: Ordered Trelegy Ellipta 200 mcg-62.5 mcg-25 [...] Confirmed Active Hemorrhoid 9 Confirmed 2011 Active H/O colonoscopy 10, 11 Confirmed 06/14/12 Active Hydronephrosis 12, 13 Confirmed 01/18/09 Active Hyperlipidemia Confirmed 04/2010 Active Hypothyroidism Confirmed Active Insomnia Confirmed Active Kidney stone 14, 15 Confirmed 01/18/09 Active DJD (degenerative joint disease), lumbar Confirmed Active Lung nodule Confirmed Active Hypogonadism male Confirmed Active Microalbuminuria 16 Confirmed 01/03/19 Active Multiple lung nodules on CT 17, 18 Confirmed 09/13/18 Active Non-small cell lung cancer 19 Confirmed 06/07/22 Active 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 Active Osteoarthritis of knee 21 Confirmed 12/2009 Active Osteoporosis 22 Confirmed 2011 Active Cancer related pain Confirmed Active 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 Active Smoker Confirmed Active Lumbar stenosis - L4 nerve root stenosis 2012 MR1 24, 25 Confirmed Active Thrush Confirmed Active Tobacco abuse Confirmed 1960 Active Underweight Confirmed Active 1positive bronchial challenge 01-07 2x-ray 2013 stable, persistent [address]33 x-ray, mild 4repeat 5 years 5Severe emphysema per pulmo note 05/18/13 6per 7-2011 colonoscopy 7PPD negative 04-26-08 8lung (lateral basal segment of the left lower lobe), per CT 01-18-2009 done at [facility] 9internal and external per 2011 colonoscopy 10(assuming no family history) 11per 2011 report, repeat due 10 years (due 2021) 12urology consult written today 13per CT from [facility], associated with ureteral stone. mild left hydronephrosis 14Repeat stone Oct 2021, seeing urology 15per CT from [facility] , ER was notified 16not starting meds due to polypharmacy and comorbidities 17Followed by Pulm in [place], stability on repeat CT Chest Sep 2020 per their note 18New 10mm nodule LUNG-RADS 4B 09/20/19 19Followed by [facility] [place] 2007 x-ray 2009 x-ray [id number] DEXA: T-score lowest -3.7 23Rash developed 07/06/13 24Correction: MRI 08/02/13 25Per MRI 08/02/14 Social History Social History Type Response Smoking Status Former smoker; Other : per pt; entered on: 04/21/18 Sex Male Patient Care team information Care Team Personnel Name: Kayla Chaney MD Position: [facility] Physician - Primary Care Member Role: PCP Address: Address: [address] [place] [phone]- Care Team Related Persons Name: STEVE LOPEZ Address: home [address] [place] [address] Name: MERLY ROBERSON Address: home [address] [place] [address] Name: MORALES MUELLER JR
--- NOTE | 2023-10-07 10:12 | ECG_ITS ---
Test Reason : SOB Blood Pressure : / mmHG Vent. Rate : 087 BPM Atrial Rate : 087 BPM P-R Int : 110 ms QRS Dur : 082 ms QT Int : 324 ms P-R-T Axes : 078 062 069 degrees QTc Int : 389 ms Sinus rhythm with short IA ST elevation in Inferior leads Lateral leads Abnormal ECG When compared with ECG of 12-SEP-2023 19:56, Premature supraventricular complexes are no longer Present Non-specific change in ST segment in Inferior leads ST elevation has replaced ST depression in Anterior leads Referred By: Generic ED Physician Electronically Signed By:EMILEE DO MD
[2023-10-07 10:46] LABS: MANUAL DIFF FLAG NO
[2023-10-07 10:51] LABS: Basophils Percent Auto 0.2 % (0-2); Eosinophils Absolute Auto 0.2 X10*3/uL (0.0-0.4); Eosinophils Percent Auto 2.1 % (0-4); Hematocrit 30.2 % (42.0-52.0); Hemoglobin 9.3 g/dl (14.0-18.0); Imm Gran Abs Auto 0.05 X10*3/uL (0.00-0.03); Imm Gran Pct Auto 0.5 % (0.0-0.4); Lymphocytes Absolute Auto 0.9 X10*3/uL (1.2-4.9); Lymphocytes Percent Auto 8.6 % (20-40); Mean Corpuscular HGB Conc 30.8 g/dl (31.0-36.0); Mean Corpuscular Volume 74.6 fL (80.0-98.0); Mean Platelet Volume 9.1 fL (9.4-12.4); Monocytes Absolute Auto 0.8 X10*3/uL (0.1-1.2); Monocytes Percent Auto 7.5 % (2-11); Neutrophils Absolute Auto 8.2 x10*3/uL (2.0-8.3); Neutrophils Percent Auto 81.1 % (45-73); Platelet Count 527 X10*3/uL (160-400); Red Blood Count 4.05 X10*6/uL (4.60-5.80); Red Cell Distribution Width 19.3 % (11.0-16.0); White Blood Count 10.1 X10*3/uL (4.8-10.8)
[2023-10-07 10:59] LABS: Anion Gap 13 (12-20); Blood Urea Nitrogen 10 mg/dL (9-16); Calcium 8.8 mg/dL (8.4-10.2); Carbon Dioxide 27 mmol/L (22-29); Chloride 100 mmol/L (96-108); Creatinine Clr Calc Pharmacy 54.9; Estimated Glomerular Filt Rate > 60; Glucose Random 124 mg/dL (60-115); Potassium 3.6 mmol/L (3.3-5.1); Sodium 136 mmol/L (135-145)
[2023-10-07 11:15] LABS: Troponin-I High Sensitivity 6.6 ng/L (<3.5-35.0)
--- NOTE | 2023-10-07 11:17 | ED.GENADULT ---
HPI - General Adult General Chief complaint: Dyspnea Stated complaint: Difficulty breathing - asthma Time Seen by Provider: 10/07/23 10:45 Source: patient Mode of arrival: ambulatory Limitations: language barrier History of Present Illness HPI narrative: Patient is a 77-year-old male with a PMH of iron deficiency anemia, asthma, hypercholesterolemia, hypothyroidism, sepsis, lactic acidosis, nicotine dependence, chronic respiratory failure, chronic bronchitis, pulmonary nodules, and lung cancer diagnosed in 2021 presenting with concern for asthma exacerbation. Patient states he has been experiencing worsening short of breath for 2 months with associated productive cough and audible wheezing worsening acutely X 1 day. He has albuterol at home that he has been using with minimal relief. He is compliant with theophylline for COPD and not on home O2. He is currently being followed for his lung cancer by heme/onc without intervention as of today. Denies sick contacts and recent travel. Denies fevers, chills, myalgias, headache, lightheadedness, weakness, chest pain, palpitations, hemoptysis, abdominal pain, nausea, and vomiting. Some complaints of right upper back pain worse w/ deep breathing. States it has been present for months. No urinary/bowel incontinence/retention. No numbness or tingling peer Related Data Home Medications Medication Instructions Recorded Confirmed omeprazole 20 mg capsule,delayed 20 mg PO DAILY@0630 12/01/20 10/04/23 release multivitamin with folic acid 400 1 tab PO DAILY 08/28/22 10/04/23 mcg tablet (Daily-Leslie (with folic acid)) levothyroxine 88 mcg tablet 88 mcg PO DAILY@0600 06/17/23 10/04/23 acetaminophen 325 mg tablet 650 mg PO Q6H PRN Pain 06/18/23 10/04/23 (Tylenol) topiramate 50 mg tablet 50 mg PO DAILY 06/18/23 10/04/23 ipratropium 0.5 mg-albuterol 3 mg 3 ml inhalation QID PRN wheezing 07/02/23 10/04/23 (2.5 mg base)/3 mL nebulization soln topiramate 50 mg tablet 100 mg PO BEDTIME 07/02/23 10/04/23 prednisone 20 mg tablet 20 mg PO DAILY 08/12/23 10/04/23 ibandronate 150 mg tablet 150 mg PO QMONTH 08/15/23 10/04/23 testosterone cypionate 200 mg/mL 100 mg IM Q2W 08/15/23 10/04/23 intramuscular oil cholecalciferol (vitamin D3) 25 50 mcg PO DAILY 09/13/23 10/04/23 mcg (1,000 unit) tablet duloxetine 30 mg capsule,delayed 30 mg PO DAILY 09/13/23 10/04/23 release fluticasone fur. 200 mcg-umeclid 1 inh inhalation DAILY 09/13/23 10/04/23 62.5 mcg-vilant 25 mcg inhalat.powder (Trelegy Ellipta) metformin 500 mg tablet 500 mg PO DAILY 09/13/23 10/04/23 mirtazapine 7.5 mg tablet 7.5 mg PO BEDTIME 09/13/23 10/04/23 nabumetone 500 mg tablet 500 mg PO BID PRN Pain 09/13/23 10/04/23 pyridoxine (vitamin B6) 50 mg 50 mg PO DAILY 09/13/23 10/04/23 tablet Previous Rx's Medication Instructions Recorded albuterol sulfate 90 mcg/actuation 2 inh inhalation Q4-6H PRN 12/01/22 breath activated powder inhaler shortness of breath or wheezing #1 ea theophylline 400 mg 400 mg PO DAILY #30 tabs 04/02/23 tablet,extended release 24 hr prednisone 10 mg tablet See Rx Instructions .Route 09/15/23 .COMPLEX #45 tabs tramadol 50 mg tablet 50 mg PO Q6H PRN Pain, 09/15/23 Moderate(Pain Scale 4-6) #20 tabs tramadol 50 mg tablet 50 mg PO Q6H PRN Pain #50 tabs 10/04/23 tramadol 50 mg tablet 50 mg PO Q8H PRN Breakthrough 10/04/23 Pain, Moderate #60 tabs albuterol sulfate 90 mcg/actuation 2 inh inhalation Q4-6H PRN 10/07/23 breath activated powder inhaler shortness of breath or wheezing #1 ea doxycycline hyclate 100 mg capsule 100 mg PO BID 10 days #20 caps 10/07/23 lidocaine 5 % topical patch 1 patch topical DAILY PRN pain #15 10/07/23 ea morphine 15 mg immediate release 15 mg PO Q6H PRN pain 5 days #10 10/07/23 tablet tabs prednisone 20 mg tablet 40 mg (2 x 20 mg) PO DAILY 5 days 10/07/23 #10 tabs Allergies Allergy/AdvReac Type Severity Reaction Status Date / Time pollen extracts [POLLEN] Allergy Intermediate RUNNING Verified 10/04/23 09:59 NOSE, WATERY EYES, SNEEZING varenicline [VARENICLINE] AdvReac Unknown PALPITATION Verified 10/04/23 09:59 S Review of Systems Review of Systems: Constitutional : + Weight loss, No Fever, No Chills, No Fatigue, No Malaise ENT/Mouth : No sore throat, No Rhinorrhea Eyes: No Eye Pain, No Swelling, No Redness Cardiovascular : No Chest Pain, + SOB, + Dyspnea on Exertion, No Orthopnea, No Edema, No Palpitations Respiratory : + Cough, + Sputum, + Wheezing Gastrointestinal : No Nausea, No Vomiting, No Diarrhea, No Constipation, No abdominal Pain, No Hematochezia, No Melena Genitourinary : No Dysuria, No Urinary Frequency, No Hematuria, Musculoskeletal : No joint pain, No Myalgias, No Joint Swelling Skin : No Skin Lesions, No rash Neuro : No Weakness, No Numbness, No Dizziness, No Headache All other systems reviewed and are negative Yes all other systems are reviewed and are negative PMFSH Past Medical History Attestation statement: The following information was validated with the patient. Source: old records reviewed and nursing notes reviewed Medical History Acute exacerbation of chronic obstructive pulmonary disease Abnormal PET scan of colon Tobacco dependence Chronic respiratory failure Sepsis Osteoporosis COPD (chronic obstructive pulmonary disease) Ureteral calculi Hypertension Hypothyroidism GERD (gastroesophageal reflux disease) Osteoarthritis Oxygen dependent Diabetes Asthma Surgical History History of lithotripsy (~2008) History of cataract surgery (~2011) History of lung biopsy (~2021) History of appendectomy Family History Family History Father Throat cancer Brother Lung cancer Other Hypertension Social History Social History Household Members: Spouse Household Members Other:: 1 Housing: Apartment Are you a primary daycare provider to a significant other at home: No Do you presently have visiting nurse or other home services: No Alcohol intake: never Patient Tobacco Use Status: Current everyday Tobacco user Tobacco use type: Cigarette Cigarette Packs Per Day: 0.5 Cigarettes Per Day: 10.0 Years Smoked: 62 Smoked in Last 30 Days: Yes e-Cigarette/Vaping Use: Currently Using Second Hand Smoke Exposure: No Use of substances other than those prescribed or required for medical reasons: No Advance Directives: No Advance Directives Information Provided: Yes Advance Directives Date on File: 12/18/20 service: No Current occupational status: unemployed and retired Physical Exam ED Vital Signs: Vital Signs - 24 hr 10/07/23 09:48 10/07/23 10:14 10/07/23 10:41 Temperature 98 F 98.4 F Pulse Rate 104 H 87 Respiratory Rate 24 H 16 20 Blood Pressure 115/55 L 106/55 L Pulse Oximetry 99 98 Oxygen Delivery Method Room Air Room Air 10/07/23 11:48 10/07/23 12:07 10/07/23 12:20 Temperature 98.0 F Pulse Rate 82 86 83 Respiratory Rate 25 H 26 H 28 H Blood Pressure 115/62 Pulse Oximetry 97 Oxygen Delivery Method Room Air 10/07/23 15:09 Temperature Pulse Rate Respiratory Rate Blood Pressure Pulse Oximetry 97 Oxygen Delivery Method Room Air BMI result Body Mass Index 18.3 Mildly hypotensive and tachypneic. Remainder of vitals stable. Appearance: Alert.? Oriented X3.? Mild acute distress.?Cachectic. Head: Normocephalic, atraumatic, no step-offs or deformities Eyes: Pupils equal, round and reactive to light.? ENT: Pharynx normal.??External ears normal. Neck: Normal inspection.? Neck supple.? CVS: Normal heart rate and rhythm.? Pulses normal.? Respiratory: Diffuse significant wheezing bilaterally. Productive cough. Mild respiratory distress. Abdomen: Soft and nontender.? Skin: Skin warm and dry.? Normal skin color.? Normal skin turgor.? Extremities: No lower extremity edema.? No calf ttp. Global weakness. Neuro: Oriented X 3.? No motor deficit.? No sensory deficit. Course Reevaluation(s) Reevaluation #1: CBC with a baseline microcytic anemia, appears to be around his baseline no acute findings or significant changes. Patient noted to have thrombocytosis again at baseline. This is not a new finding. Chemistry unremarkable. Patient's troponin is negative EKG nonischemic unlikely ACS., BNP within normal limits. Lipase normal. D-dimer was elevated will obtain CTA due to increasing shortness of breath and history of malignancy to rule out PE. Patient has received multiple breathing treatments with little to no relief. Significant wheezing throughout. He is saturating 96-98% on room air will do an ambulatory trial to see patient's oxygen with ambulation. Xray, repeat trop, cta, and ambulatory O2 pending. Time: 12:27 Reevaluation #2: Patient states he is feeling so much better. Chest x-ray with a large right lung mass. Patient aware of this. Repeat troponin flat. Ambulatory O2 96-97% on room air. Patient states he feels better. CTA pending. Patient will likely be discharged home this is likely asthma exacerbation. Time: 14:59 Reevaluation #3: Patient is feeling so much better. He was complaining of back pain which she describes as pleuritic back pain, likely secondary to cancer/viral illness/asthma, Lidoderm patch and prednisone ordered. Will give Tylenol for pain. Educated patient on diagnosis and treatment plan, answered all question, patient verbalizes understanding. At this time patient will be discharged home, advised to return with new or worsening symptoms. Educated on worrisome signs and symptoms and when to return. At this time I feel comfortable discharge home. Time: 15:37 Medications Administered Discontinued Medications Generic Name Dose Route Start Last Admin Trade Name Freq PRN Reason Stop Dose Admin Albuterol Sulfate 5 mg/ 7.5 mg 10/07/23 12:16 10/07/23 12:20 Albuterol Sulfate 2.5 mg INHALE 10/07/23 12:17 7.5 mg ONCE ONE Administration Albuterol Sulfate 5 mg/ 0 mg 10/07/23 11:41 10/07/23 11:47 Albuterol/Ipratropium 3 ml INHALE 10/07/23 11:42 7.5 each ONCE ONE Administration Magnesium Sulfate 2 gm in 50 mls @ 25 mls/hr 10/07/23 11:27 10/07/23 14:42 Magnesium Sulfate/H2o IV 10/07/23 13:26 Infused ONCE ONE Infusion Iohexol 65 ml 10/07/23 13:24 10/07/23 13:25 Iohexol 350 Mg/Ml 100 Ml Infus..Btl IV 10/07/23 13:25 65 ml ONCE ONE Administration Methylprednisolone Sodium Succinate 125 mg 10/07/23 11:27 10/07/23 12:03 Methylprednisolone Sod Succ 125 Mg/2 Ml Vial IVPUSH 10/07/23 11:28 125 mg ONCE ONE Administration Medical Decision Making Medical Decision Making [facility] Narrative: 1139 77-year-old male presents with productive cough, shortness of breath past few months acutely worsening over the past few days. Physical exam patient appears cachectic, and is noted to have severe wheezing bilaterally with some pursed lip breathing. Concerns for chronic lung disease versus asthma versus bronchitis. Will rule out pneumonia. Patient with significant wheezing making pulmonary embolism less likely. Unlikely ACS. Will rule out pleural effusions. Unlikely pneumothorax. Back pain likely secondary to lung mass/asthma, unlikely cauda equina, epidural abscess, cord compression. Plan labs, imaging, blood cultures, lactic acid. Will initiate bronch protocol Differential Diagnosis Differential Diagnoses: The differential diagnosis associated with the presentation includes Concerns for chronic lung disease versus asthma versus bronchitis. Will rule out pneumonia. Patient with significant wheezing making pulmonary embolism less likely. Unlikely ACS. Will rule out pleural effusions. Unlikely pneumothorax. Back pain likely secondary to lung mass/asthma, unlikely cauda equina, epidural abscess, cord compression. Admission/Observation Consideration of admission/observation: Escalation of care including admission/observation considered Likely Lab Data [facility] Lab Attestation statement: I reviewed the patient's lab results. 10/07/23 10:39 10/07/23 10:39 Labs: Lab Results 10/07/23 10/07/23 10/07/23 Range/Units 10:39 12:02 14:01 WBC 10.1 (4.8-10.8) X10*3/uL RBC 4.05 L (4.60-5.80) X10*6/uL Hgb 9.3 L (14.0-18.0) g/dl Hct 30.2 L (42.0-52.0) % MCV 74.6 L (80.0-98.0) fL MCH 23.0 L (27.0-33.0) pg MCHC 30.8 L (31.0-36.0) g/dl RDW 19.3 H (11.0-16.0) % Plt Count 527 H (160-400) X10*3/uL MPV 9.1 L (9.4-12.4) fL Immature Gran % (Auto) 0.5 H (0.0-0.4) % Neut % (Auto) 81.1 H (45-73) % Lymph % (Auto) 8.6 L (20-40) % [place] % (Auto) 7.5 (2-11) % Eos % (Auto) 2.1 (0-4) % Baso % (Auto) 0.2 (0-2) % Lymph # (Auto) 0.9 L (1.2-4.9) X10*3/uL [place] # (Auto) 0.8 (0.1-1.2) X10*3/uL Eos # (Auto) 0.2 (0.0-0.4) X10*3/uL Baso # (Auto) 0.0 (0.0-0.2) X10*3/uL Abs Immat Gran (auto) 0.05 H (0.00-0.03) X10*3/uL Absolute Neuts (auto) 8.2 (2.0-8.3) x10*3/uL Absolute Nucleated RBC 0.000 (0.0-0.012) X10*3/uL Nucleated RBC % (auto) 0.0 (0.0-0.2) /100WBC D-Dimer High Sensitivty 301 NG/ML Sodium 136 (135-145) mmol/L Potassium 3.6 (3.3-5.1) mmol/L Chloride 100 (96-108) mmol/L Carbon Dioxide 27 (22-29) mmol/L Anion Gap 13 (12-20) BUN 10 (9-16) mg/dL Creatinine 0.82 (0.5-1.4) mg/dL Estim Creat Clear Calc 54.9 Estimated GFR > 60 Random Glucose 124 H (60-115) mg/dL Lactic Acid 0.9 (0.5-2.0) mmol/L Calcium 8.8 D (8.4-10.2) mg/dL Troponin I High Sens 6.6 3.8 (<3.5-35.0) ng/L B-Natriuretic Peptide 36 34 (<100) pg/mL Lipase 10 (8-78) U/L Independent Interpretation I performed an independent interpretation of an: EKG (Ventricular rate of 87, pr normal, qrs normal, QT/QTC normal. No ischemic changes. ) and Plain X-Ray Radiology Impression Discussion of test interpretation with radiology: I have reviewed the radiologist's reading. External Record Review External record reviewed: Inpatient record, Office record, Outpatient record, Prior outpatient labs, Prior outpatient radiology, Primary care record and Outside ED record Chronic Conditions Patient?s care impacted by: Cancer and Other (asthma ) Critical Care Time Critical Care Time Critical Care Time: No Discharge Plan Discharge Clinical Impression: Asthma, Lung mass, Physical deconditioning, Bronchitis Patient Disposition: Home, Self-Care Instructions: Asthma (ED), Fatigue (ED) Additional Instructions: Take your medications as prescribed. If you were prescribed antibiotics today, it is important that you take your medication to their entirety, do not skip any doses, do not finish them early. Follow-up with your primary care provider this week. Return to the emergency department with new or worsening symptoms. Such as fevers, chills, chest pain, shortness of breath, nausea, vomiting, dizziness, headache, vision changes, lethargy In case of emergency call 911 A narcotic has been sent to your pharmacy please take this as prescribed. Do not take more than the prescribed dose. Narcotic medications can cause addiction. Please do not mix them with alcohol. Do not take them while driving or operating machinery. Do not take them with any other narcotics. Do not share them with friends or family. They can cause constipation. Take them only for severe pain. [place] medicamentos seg?n lo recetado. Si hoy te recetaron antibi?ticos, es importante que tomes tu medicaci?n en sheehan totalidad, no te saltes ninguna dosis, no las termines antes de tiempo. Bela un seguimiento con sheehan proveedor de atenci?n primaria esta semana. Regrese al departamento de emergencias si los s?ntomas son nuevos o empeoran. Gina fiebre, escalofr?os, dolor de pecho, dificultad para respirar, n?useas, v?mitos, mareos, dolor de wanda, cambios en la visi?n, letargo. En joe de emergencia llame al 911. Se gelz enviado un narc?abner a sheehan farmacia. T?case seg?n lo recetado. No tome m?s de la dosis prescrita. Los medicamentos narc?ticos pueden causar adicci?n. Por favor, no los mezcle con alcohol. No los tome mientras conduce o utiliza maquinaria. No los tomes con danielle?n otro narc?abner. No los comparta con amigos o familiares. Pueden causar estre?imiento. T?melos s?lo en joe de dolor intenso. XR/XR chest 1V IMPRESSION: Large right-sided lung masses with calcified pleural plaques. CT/CT angio chest PE protocol IMPRESSION: 1. No evidence of pulmonary embolism. 2. Severe emphysematous change of lungs. 3. Redemonstration of multiple mass lesions in the right hemithorax. These have increased in size since prior CAT scan August 14, 2023. VTE: negative. Prescriptions: New prednisone 20 mg tablet 40 mg PO DAILY 5 Days Qty: 10 0RF lidocaine 5 % adhesive patch,medicated 1 patch topical DAILY PRN (Reason: pain) Qty: 15 0RF Rx Instructions: leave on most painful area for up to 12 hrs albuterol sulfate 90 mcg/actuation aerosol powdr breath activated 2 inh inhalation Q4-6H PRN (Reason: shortness of breath or wheezing) Qty: 1 0RF morphine 15 mg tablet 15 mg PO Q6H PRN (Reason: pain) 5 Days Qty: 10 0RF Rx Instructions: Partial Fill upon patient request. doxycycline hyclate 100 mg capsule 100 mg PO BID 10 Days Qty: 20 0RF No Action omeprazole 20 mg capsule,delayed release(DR/EC) 20 mg PO DAILY@0630 albuterol sulfate 90 mcg/actuation aerosol powdr breath activated 2 inh inhalation Q4-6H PRN (Reason: shortness of breath or wheezing) Qty: 1 0RF tramadol 50 mg Tablet 50 mg PO Q8H PRN (Reason: Breakthrough Pain, Moderate) Qty: 60 0RF tramadol 50 mg tablet 50 mg PO Q6H PRN (Reason: Pain) Qty: 50 0RF multivitamin with folic acid [Daily-Leslie (with folic acid)] 400 mcg tablet 1 tab PO DAILY levothyroxine 88 mcg tablet 88 mcg PO DAILY@0600 topiramate 50 mg tablet 50 mg PO DAILY acetaminophen [Tylenol] 325 mg Tablet 650 mg PO Q6H PRN (Reason: Pain) ipratropium-albuterol 0.5 mg-3 mg(2.5 mg base)/3 mL solution for nebulization 3 ml inhalation QID PRN (Reason: wheezing) topiramate 50 mg tablet 100 mg PO BEDTIME testosterone cypionate 200 mg/mL oil 100 mg IM Q2W ibandronate 150 mg tablet 150 mg PO QMONTH metformin 500 mg tablet 500 mg PO DAILY pyridoxine (vitamin B6) 50 mg tablet 50 mg PO DAILY nabumetone 500 mg tablet 500 mg PO BID PRN (Reason: Pain) mirtazapine 7.5 mg tablet 7.5 mg PO BEDTIME duloxetine 30 mg capsule,delayed release(DR/EC) 30 mg PO DAILY Trelegy Ellipta 200-62.5-25 mcg blister with device 1 inh inhalation DAILY cholecalciferol (vitamin D3) 25 mcg (1,000 unit) tablet 50 mcg PO DAILY tramadol 50 mg Tablet 50 mg PO Q6H PRN (Reason: Pain, Moderate(Pain Scale 4-6)) Qty: 20 0RF prednisone 10 mg tablet See Rx Instructions .Route .COMPLEX Qty: 45 0RF Rx Instructions: 10 mg orally; 5 tabs p.o. daily x3 days; 4 tabs p.o. daily x3 days; 3 tabs daily x3 days; 2 tabs daily x3 days; 1 tab daily x3 days prednisone 20 mg tablet 20 mg PO DAILY theophylline 400 mg tablet extended release 24 hr 400 mg PO DAILY Qty: 30 6RF Referrals: Luz Mccall NP [Primary Care Provider] - 2 days Print Language: Ukrainian
[2023-10-07 11:20] LABS: B Type Natriuretic Peptide 36 pg/mL (<100)
[2023-10-07] MEDS: Albuterol Sulfate 5 MG, Albuterol/Iprat 2.5/0.5MG 3 ML 3 ML INHALE (11:47)
[2023-10-07] MEDS: Magnesium Sulfate/H2O 2 GM/50 ML PIGGYBACK IV (12:03)
[2023-10-07] MEDS: methylPREDNISolone Sod Succ 125 MG/2 ML VIAL IVPUSH (12:03)
[2023-10-07 12:11] LABS: Lipase 10 U/L (8-78)
[2023-10-07 12:20] LABS: D Dimer High Sensitivity 301 NG/ML
[2023-10-07] MEDS: Albuterol Sulfate 5 MG, Albuterol Sulfate (0.083%) 2.5 MG 7.5 MG INHALE (12:20)
[2023-10-07 12:25] LABS: Lactic Acid 0.9 mmol/L (0.5-2.0)
[2023-10-07 12:34] LABS: B Type Natriuretic Peptide 34 pg/mL (<100)
[2023-10-07] MEDS: iohexoL 350 MG/ML 100 ML INFUS..BTL 65 ML IV (13:25)
[2023-10-07 14:32] LABS: Troponin-I High Sensitivity 3.8 ng/L (<3.5-35.0)
[2023-10-07] MEDS: Morphine Sulfate Immed Release 15 MG TABLET PO (15:53)
[2023-10-07] MEDS: Acetaminophen 325 MG TABLET 975 MG PO (15:53)
[2023-10-07] MEDS: Lidocaine 4 % Patch ADH..PATCH 1 PATCH TRANSDERMA (15:53)
== END 2023-10-07 16:25 | disposition home or self-care (01) ==
PROVIDERS: Physician Assistant; Emergency Provider Student in an Organized Health Care Education/Training Program; PCP Nurse Practitioner Family
DX: J45.909 Unspecified asthma, uncomplicated (principal); R91.8 Other nonspecific abnormal finding of lung field; R53.81 Other malaise; R06.02 Shortness of breath; E11.9 Type 2 diabetes mellitus without complications; I10 Essential (primary) hypertension; F17.210 Nicotine dependence, cigarettes, uncomplicated; Z79.899 Other long term (current) drug therapy
CPT/HCPCS: 36415; 71045; 71275; 80048; 83605; 83690; 83880; 84484; 85025; 85379; 87040; 93005; 94640; 96365; 96366; 96375; 99285; J2930; J3475; Q9967

== ENCOUNTER 2023-10-13 02:06 | Inpatient (IN) | payer MEDICARE, MEDICAID, SELFPAY ==
[2023-10-13] VITALS (23 sets, daily range): BP systolic 94–140; BP diastolic 47–98; PULSE 56–150; RESP 14–30; TEMP 36.8–38.1; O2SAT 91–98; BMI 16.0
--- NOTE | 2023-10-13 | ECG_ITS ---
Test Reason : [facility] Blood Pressure : / mmHG Vent. Rate : 090 BPM Atrial Rate : 090 BPM P-R Int : 110 ms QRS Dur : 074 ms QT Int : 310 ms P-R-T Axes : 065 069 074 degrees QTc Int : 379 ms Sinus rhythm with short AR with occasional Premature ventricular complexes Nonspecific ST and T wave abnormality Abnormal ECG When compared with ECG of 13-OCT-2023 04:46, Sinus rhythm has replaced Atrial fibrillation Vent. rate has decreased BY 112 BPM QRS duration has decreased Nonspecific T wave abnormality no longer evident in Inferior leads Nonspecific T wave abnormality, improved in Anterolateral leads T wave amplitude has increased in Anterolateral leads Referred By: Miguel Mcmhaon Electronically Signed By:EMILEE DO MD
--- NOTE | ~2023-10-13 | XR_ITS ---
EXAMINATION: XR CHEST CLINICAL INFORMATION: Cough. COMPARISON: 10/07/2023. TECHNIQUE: 2 views of the chest were obtained. FINDINGS: The cardiomediastinal silhouette is stable. There is a lobular right perihilar mass similar to previous. There is also a lobular right infrahilar/medial lung field mass. There is also a stable lateral pleural right midlung field mass measuring up to 3.8 cm. There is right sided pleural calcification. A left lung base granuloma is noted. Left lung is otherwise clear. The soft tissues are unremarkable. XR/XR chest 2V IMPRESSION: Lobular right perihilar and infrahilar/right lower lung field mass and right midlung field pleural mass. No new infiltrate. No significant change.
--- NOTE | 2023-10-13 02:51 | ED_ITS ---
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 not been treated yet, severe COPD still smokes been here multiple times for pain in the ribs was seen here on 10/07 for same comes in for pain in the right rib area asking for pain medication change in cough patient does not want to go to rehab/[place] [facility] does want hospice care patient is saturating 94% on room air patient still smokes 3-4 cigarettes a day Related Data Home Medications Medication Instructions Recorded Confirmed omeprazole 20 mg capsule,delayed 20 mg PO DAILY@0630 12/01/20 10/04/23 release multivitamin with folic acid 400 1 tab PO DAILY 08/28/22 10/04/23 mcg tablet (Daily-Leslie (with folic acid)) levothyroxine 88 mcg tablet 88 mcg PO DAILY@0600 06/17/23 10/04/23 acetaminophen 325 mg tablet 650 mg PO Q6H PRN Pain 06/18/23 10/04/23 (Tylenol) topiramate 50 mg tablet 50 mg PO DAILY 06/18/23 10/04/23 ipratropium 0.5 mg-albuterol 3 mg 3 ml inhalation QID PRN wheezing 07/02/23 10/04/23 (2.5 mg base)/3 mL nebulization soln topiramate 50 mg tablet 100 mg PO BEDTIME 07/02/23 10/04/23 prednisone 20 mg tablet 20 mg PO DAILY 08/12/23 10/04/23 ibandronate 150 mg tablet 150 mg PO QMONTH 08/15/23 10/04/23 testosterone cypionate 200 mg/mL 100 mg IM Q2W 08/15/23 10/04/23 intramuscular oil cholecalciferol (vitamin D3) 25 50 mcg PO DAILY 09/13/23 10/04/23 mcg (1,000 unit) tablet duloxetine 30 mg capsule,delayed 30 mg PO DAILY 09/13/23 10/04/23 release fluticasone fur. 200 mcg-umeclid 1 inh inhalation DAILY 09/13/23 10/04/23 62.5 mcg-vilant 25 mcg inhalat.powder (Trelegy Ellipta) metformin 500 mg tablet 500 mg PO DAILY 09/13/23 10/04/23 mirtazapine 7.5 mg tablet 7.5 mg PO BEDTIME 09/13/23 10/04/23 nabumetone 500 mg tablet 500 mg PO BID PRN Pain 09/13/23 10/04/23 pyridoxine (vitamin B6) 50 mg 50 mg PO DAILY 09/13/23 10/04/23 tablet Previous Rx's Medication Instructions Recorded albuterol sulfate 90 mcg/actuation 2 inh inhalation Q4-6H PRN 12/01/22 breath activated powder inhaler shortness of breath or wheezing #1 ea theophylline 400 mg 400 mg PO DAILY #30 tabs 04/02/23 tablet,extended release 24 hr prednisone 10 mg tablet See Rx Instructions .Route 09/15/23 .COMPLEX #45 tabs tramadol 50 mg tablet 50 mg PO Q6H PRN Pain, 09/15/23 Moderate(Pain Scale 4-6) #20 tabs tramadol 50 mg tablet 50 mg PO Q6H PRN Pain #50 tabs 10/04/23 tramadol 50 mg tablet 50 mg PO Q8H PRN Breakthrough 10/04/23 Pain, Moderate #60 tabs albuterol sulfate 90 mcg/actuation 2 inh inhalation Q4-6H PRN 10/07/23 breath activated powder inhaler shortness of breath or wheezing #1 ea doxycycline hyclate 100 mg capsule 100 mg PO BID 10 days #20 caps 10/07/23 lidocaine 5 % topical patch 1 patch topical DAILY PRN pain #15 10/07/23 ea morphine 15 mg immediate release 15 mg PO Q6H PRN pain 5 days #10 10/07/23 tablet tabs prednisone 20 mg tablet 40 mg (2 x 20 mg) PO DAILY 5 days 10/07/23 #10 tabs morphine 15 mg immediate release 15 mg PO Q8H PRN pain #20 tabs 10/13/23 tablet Allergies Allergy/AdvReac Type Severity Reaction Status Date / Time pollen extracts [POLLEN] Allergy Intermediate RUNNING Verified 10/04/23 09:59 NOSE, WATERY EYES, SNEEZING varenicline [VARENICLINE] AdvReac Unknown PALPITATION Verified 10/04/23 09:59 S Review of Systems 2 Review of Systems: Yes all other systems are reviewed and are negative PMFSH Past Medical History Medical History Acute exacerbation of chronic obstructive pulmonary disease Abnormal PET scan of colon Tobacco dependence Chronic respiratory failure Sepsis Osteoporosis COPD (chronic obstructive pulmonary disease) Ureteral calculi Hypertension Hypothyroidism GERD (gastroesophageal reflux disease) Osteoarthritis Oxygen dependent Diabetes Asthma Surgical History History of lithotripsy (~2008) History of cataract surgery (~2011) History of lung biopsy (~2021) History of appendectomy Family History Family History Father Throat cancer Brother Lung cancer Other Hypertension Social History Social History Household Members: Spouse Household Members Other:: 1 Housing: Apartment Are you a primary ambulatory care to a significant other at home: No Do you presently have visiting nurse or other home services: No Alcohol intake: former Patient Tobacco Use Status: Current everyday Tobacco user Tobacco use type: Cigarette Cigarette Packs Per Day: 0.5 Cigarettes Per Day: 10.0 Years Smoked: 62 Smoked in Last 30 Days: Yes e-Cigarette/Vaping Use: Currently Using Second Hand Smoke Exposure: No Use of substances other than those prescribed or required for medical reasons: No Advance Directives: No Advance Directives Information Provided: No Advance Directives Date on File: 12/18/20 service: No Current occupational status: unemployed and retired Physical Exam ED Vital Signs: Vital Signs - 24 hr 10/13/23 02:07 10/13/23 02:43 10/13/23 03:33 Temperature 99.9 F 99.8 F 99.0 F Pulse Rate 115 H 128 H 112 H Respiratory Rate 14 23 H 26 H Blood Pressure 111/59 L 115/52 L Pulse Oximetry 94 94 Oxygen Delivery Method Room Air Room Air 10/13/23 05:08 10/13/23 05:13 10/13/23 05:24 Temperature 98.5 F Pulse Rate 116 H 131 H 139 H Respiratory Rate 22 H 29 H 30 H Blood Pressure 105/54 L 104/53 L 96/53 L Pulse Oximetry 95 96 97 Oxygen Delivery Method Room Air Room Air Room Air 10/13/23 05:28 10/13/23 05:48 10/13/23 05:59 Temperature 99.6 F Pulse Rate 117 H 140 H 146 H Respiratory Rate 22 H 25 H 26 H Blood Pressure 106/58 L 109/64 96/60 Pulse Oximetry 98 95 Oxygen Delivery Method Room Air Room Air 10/13/23 06:09 10/13/23 06:15 Temperature Pulse Rate 150 H 91 Respiratory Rate 20 23 H Blood Pressure 99/52 L 109/55 L Pulse Oximetry Oxygen Delivery Method BMI result Body Mass Index 16.0 Appearance: Alert. Oriented X3. In mild distress emaciated Eyes: PERRLA, No Nystagmus ENT: Pharynx normal. Oral Mucosa moist Neck: Normal inspection. Neck supple. CVS: Normal heart rate and rhythm. Pulses normal. Respiratory: No respiratory distress. Equal air entry bilateral, no wheezing, occasional crackles+ diffuse chest wall tenderness soft tissue lump on the back Abdomen: Soft and nontender. Bowel sounds are present, no mass palpable, no CVA tenderness Skin: Skin warm and dry. Normal skin color. Normal skin turgor. Extremities: No lower extremity edema. No calf tenderness Neuro: Oriented X 3. No motor deficit. No sensory deficit.No cerebellar signs , cranial nerves II-XII intact Medications Administered Generic Name Dose Route Start Last Admin Trade Name Freq PRN Reason Stop Dose Admin Diltiazem HCl 125 mg/ Sodium 125 mls @ 0 mls/hr 10/13/23 05:15 10/13/23 06:15 Chloride IVCONT 10 mg/hr .Q0M MEHDI 10 mls/hr Titration Protocol Per Protocol Discontinued Medications Generic Name Dose Route Start Last Admin Trade Name Freq PRN Reason Stop Dose Admin Apixaban 5 mg 10/13/23 05:40 10/13/23 05:51 Apixaban 5 Mg Tablet PO 10/13/23 05:41 5 mg ONCE ONE Administration Diltiazem HCl 10 mg 10/13/23 04:51 10/13/23 04:54 Diltiazem Hcl 50 Mg/10 Ml Vial IVPUSH 10/13/23 04:52 10 mg STAT STA Administration Diltiazem HCl 10 mg 10/13/23 04:57 10/13/23 04:57 Diltiazem Hcl 50 Mg/10 Ml Vial IVPUSH 10/13/23 04:58 10 mg STAT STA Administration Hydromorphone HCl 1 mg 10/13/23 05:40 10/13/23 05:48 Hydromorphone Hcl 1 Mg/Ml Syringe IVPUSH 10/13/23 05:41 1 mg ONCE ONE Administration Protocol Sodium Chloride 1,000 mls @ 999 mls/hr 10/13/23 04:50 10/13/23 05:57 Ns IV 10/13/23 05:50 Infused .Q1H1M ONE Infusion Sodium Chloride 1,000 mls @ 999 mls/hr 10/13/23 05:56 10/13/23 05:58 Ns IV 10/13/23 06:56 999 mls/hr .Q1H1M ONE Administration Metoprolol Tartrate 5 mg 10/13/23 05:00 10/13/23 05:04 Metoprolol Tartrate 5 Mg/5 Ml Vial IVPUSH 10/13/23 05:01 5 mg ONCE ONE Administration Metoprolol Tartrate 5 mg 10/13/23 06:03 10/13/23 06:08 Metoprolol Tartrate 5 Mg/5 Ml Vial IVPUSH 10/13/23 06:04 5 mg ONCE ONE Administration Morphine Sulfate 15 mg 10/13/23 03:10 10/13/23 03:23 Morphine Sulfate Immed Release 15 Mg Tablet PO 10/13/23 03:11 15 mg ONCE ONE Administration Medical Decision Making Medical Decision Making [facility] Narrative: Patient with non-small cell carcinoma severe COPD changes comes here for similar pain diet lung which she had in previous visits patient had labs done on and which were normal chest x-ray done today showed no acute change from previous x-rays showing the lobular right perihilar lower lung field mass and right mid lung pleural based mass no new infiltrate in the x-ray no acute change 440am nuclear monitoring technician showed tachycardia? in range of 202 beats per minute no prior history of AFib EKG showed AFib rapid ventricular rate give Cardizem plan to admit Patient received multiple doses of Cardizem including still responded to better for which was given twice will continue for Cardizem drip blood pressure now 109/55 heart rate 91 AFib Tyrell score of 2 will start on Eliquis Differential Diagnosis Differential Diagnoses: The differential diagnosis associated with the presentation includes Admission/Observation Consideration of admission/observation: Escalation of care including admission/observation considered Consult Healthcare Provider Management of the patient was discussed with: Hospitalist Lab Data MDM Lab Attestation statement: I reviewed the patient's lab results. 10/13/23 05:01 10/13/23 05:01 Labs: Lab Results 10/13/23 10/13/23 Range/Units 03:31 05:01 PT 15.1 H (11.1-13.3) SEC INR 1.2 H (0.9-1.1) APTT 33.6 (26.0-36.4) SEC Sodium 137 (135-145) mmol/L Potassium 4.3 (3.3-5.1) mmol/L Chloride 100 (96-108) mmol/L Carbon Dioxide 29 (22-29) mmol/L Anion Gap 12 (12-20) BUN 8 L (9-16) mg/dL Creatinine 0.82 (0.5-1.4) mg/dL Estim Creat Clear Calc 47.9 Estimated GFR > 60 Random Glucose 188 H (60-115) mg/dL Calcium 9.1 (8.4-10.2) mg/dL Magnesium 1.8 (1.6-2.6) mg/dL Total Bilirubin 0.6 (0.0-1.0) mg/dL AST 19 (5-37) U/L ALT 5 (0-40) U/L Alkaline Phosphatase 100 (39-117) U/L Troponin I High Sens 24.5 D (<3.5-35.0) ng/L Total Protein 6.2 L (6.5-8.0) g/dL Albumin 3.1 L (3.5-5.0) g/dL Urine Color Yellow Urine Appearance Clear Urine pH 7.5 (5.0-9.0) Ur Specific [place] 1.020 (1.005-1.025) Urine Protein 30 (1+) H (Neg-Trace) mg/dL Urine Glucose (UA) 100 H (Negative) mg/dL Urine Ketones Trace (Negative) mg/dL Urine Blood Negative (Negative) Urine Nitrite Negative (Negative) Ur Leukocyte Esterase Negative (Negative) Urine RBC 0-2 (0-2) /HPF Urine WBC 0-5 (0-5) /HPF Ur Squamous Epith Cells 0-2 (0-2) /HPF Urine Bacteria None Seen (None Seen) Hyaline Casts 0-2 (0-2) /LPF COVID-19 (ELIO) Negative (Negative) COVID-19 Clin Com See Note Independent Interpretation I performed an independent interpretation of an: Plain X-Ray Radiology Impression Discussion of test interpretation with radiology: I have reviewed the radiologist's reading. Radiologist Impression: [facility] [address] [place] [address] XRay Report Signed Patient: Raudel Ames MR#: [id number] : 1945 Acct:[id number] Age/Sex: 77 / M ADM Date: 10/13/23 Loc: .ED Attending Dr: Ordering Physician: Alhaji Lerner MD Date of Service: 10/13/23 Procedure(s): XR chest 2V Accession Number(s): [id number] cc: PARISA HERNANDEZ MANAGER SOLAR; Alhaji Lerner MD~ EXAMINATION: XR CHEST CLINICAL INFORMATION: Cough. COMPARISON: 10/07/2023. TECHNIQUE: 2 views of the chest were obtained. FINDINGS: The cardiomediastinal silhouette is stable. There is a lobular right perihilar mass similar to previous. There is also a lobular right infrahilar/medial lung field mass. There is also a stable lateral pleural right midlung field mass measuring up to 3.8 cm. There is right sided pleural calcification. A left lung base granuloma is noted. Left lung is otherwise clear. The soft tissues are unremarkable. XR/XR chest 2V IMPRESSION: Lobular right perihilar and infrahilar/right lower lung field mass and right midlung field pleural mass. No new infiltrate. No significant change Critical Care Time Critical Care Time Critical Care Time: Yes Total Critical Care Time: 55 Attestation: The patient was critically ill with a high probability of imminent or life threatening deterioration. I spent greater than 60 minutes of discontinuous time evaluating the patient,delivering critical care at the bedside, discussing and evaluating pertinent data with consultants. Critical care time does not include time spent performing separately billable procedures or teaching. Total time spent performing critical care was 55 minutes. Discharge Plan Discharge Clinical Impression: Lung cancer, Atrial fibrillation with rapid ventricular response Patient Disposition: Admitted As Inpatient
--- NOTE | 2023-10-13 03:12 | PC.NURSE ---
pt brought back to rm 16 @ 0250 pt placed on gambling monitor this rn adn second rn attempted iv line pt declined iv. md to bedside. dr godwin aware of tachycardia and temp of 99.8. md cancelled blood work orders. order placed for pain medication laborer gold leaf utilized
[2023-10-13] MEDS: Morphine Sulfate Immed Release 15 MG TABLET PO (03:23)
[2023-10-13 03:39] LABS: Appearance Urine Clear; Color Urine Yellow; Glucose Urine UA 100 mg/dL (Negative); Leukocyte Esterase Urine Negative (Negative); Nitrite Urine Negative (Negative); PH 7.5 (5.0-9.0); UMIC TRIGGER UACC YES; Urine Blood Negative (Negative); Urine Ketones Trace mg/dL (Negative); Urine Protein 30 (1+) mg/dL (Neg-Trace)
[2023-10-13 03:41] LABS: Bacteria Urine None Seen (None Seen); Hyaline Casts Urine 0-2 /LPF (0-2); RBC Urine 0-2 /HPF (0-2); Squamous Epithelial Cell Urine 0-2 /HPF (0-2); WBC Urine 0-5 /HPF (0-5)
--- NOTE | 2023-10-13 04:50 | ECG_ITS ---
Test Reason : TACHY Blood Pressure : / mmHG Vent. Rate : 202 BPM Atrial Rate : 000 BPM P-R Int : 000 ms QRS Dur : 188 ms QT Int : 212 ms P-R-T Axes : 000 061 000 degrees QTc Int : 388 ms Atrial fibrillation with rapid ventricular response with premature ventricular or aberrantly conducted complexes Non-specific intra-ventricular conduction block ST depression in Inferior leads Anterolateral leads Abnormal ECG When compared with ECG of 07-OCT-2023 10:30, Atrial fibrillation has replaced Sinus rhythm Vent. rate has increased BY 115 BPM QRS duration has increased ST now depressed in Anterolateral leads Inferior leads Referred By: Alhaji Lerner Electronically Signed By:EMILEE DO MD
[2023-10-13] MEDS: dilTIAZem HCL 50 MG/10 ML VIAL 10 MG IVPUSH ×2 (04:54→04:57)
[2023-10-13] MEDS: 0.9 % Sodium Chloride 1,000 ML 999 ML IV ×2 (04:56→05:58)
[2023-10-13] MEDS: Metoprolol Tartrate 5 MG/5 ML VIAL IVPUSH ×2 (05:04→06:08)
[2023-10-13 05:07] LABS: MANUAL DIFF FLAG NO
[2023-10-13 05:14] LABS: INTERNATIONAL NORM RATIO 1.2 (0.9-1.1); Prothrombin Time 15.1 SEC (11.1-13.3)
[2023-10-13 05:17] LABS: Partial Thromboplastin Time 33.6 SEC (26.0-36.4)
[2023-10-13 05:20] LABS: COVID-19 Test Negative (Negative); IDNOW Serial# 6674DD1D
[2023-10-13 05:23] LABS: Alanine Aminotransferase 5 U/L (0-40); Albumin Level 3.1 g/dL (3.5-5.0); Alkaline Phosphatase 100 U/L (39-117); Anion Gap 12 (12-20); Aspartate Amino Transferase 19 U/L (5-37); Bilirubin Total 0.6 mg/dL (0.0-1.0); Blood Urea Nitrogen 8 mg/dL (9-16); Calcium 9.1 mg/dL (8.4-10.2); Carbon Dioxide 29 mmol/L (22-29); Chloride 100 mmol/L (96-108); Creatinine Clr Calc Pharmacy 47.9; Estimated Glomerular Filt Rate > 60; Glucose Random 188 mg/dL (60-115); Magnesium 1.8 mg/dL (1.6-2.6); Potassium 4.3 mmol/L (3.3-5.1); Sodium 137 mmol/L (135-145); Total Protein 6.2 g/dL (6.5-8.0)
[2023-10-13] MEDS: dilTIAZem HCL 125 MG in 0.9 % Sodium Chloride 100 ML 10 MG IVCONT (05:25)
[2023-10-13 05:27] LABS: Troponin-I High Sensitivity 24.5 ng/L (<3.5-35.0)
--- NOTE | 2023-10-13 05:35 | PC.NURSE ---
this rn and bilingual spanish inbound sales at bedside as patient was up for discharge per dr godwin. this rn giving pt and pt spouse discharge instructions at which time pt HR noted to be 220 RVR @ 440. dr godwin to bedside. 20 g iv placed in R AC repeat ekg performed blood work obtained and sent to lab pt medicated according to lab diltiazem gtt started at 10 pt continues to report 9/10 pain
[2023-10-13] MEDS: HYDROmorphone HCl 1 MG/ML SYRINGE IVPUSH (05:48)
[2023-10-13] MEDS: Apixaban 5 MG TABLET PO ×2 (05:51→20:34)
--- NOTE | 2023-10-13 05:54 | PC.NURSE ---
pt HR noted to be between 130-150 diltiazem gtt titrated to rate of 15mg/hr. pt medicated with ivp dilaudid IVF infusing
--- NOTE | 2023-10-13 07:00 | PC.NURSE ---
this rn assumed care of pt. pt a&Ox3, respirations even and unlabored. pt 11-122 on tele. pt has cartizem drip running at this time.
--- NOTE | 2023-10-13 07:43 | PC.NURSE ---
at bedside, pt normal sinus on tele 82-84, per verbal order and per mar, cartizem drip paused due to heart rate.
[2023-10-13 08:31] LABS: Basophils Percent Auto 0.3 % (0-2); Eosinophils Absolute Auto 0.1 X10*3/uL (0.0-0.4); Eosinophils Percent Auto 0.6 % (0-4); Hematocrit 32.2 % (42.0-52.0); Hemoglobin 9.6 g/dl (14.0-18.0); Imm Gran Pct Auto 0.6 % (0.0-0.4); Lymphocytes Absolute Auto 1.2 X10*3/uL (1.2-4.9); Lymphocytes Percent Auto 7.7 % (20-40); Mean Corpuscular HGB Conc 29.8 g/dl (31.0-36.0); Mean Corpuscular Hemoglobin 22.6 pg (27.0-33.0); Mean Corpuscular Volume 75.8 fL (80.0-98.0); Mean Platelet Volume 9.3 fL (9.4-12.4); Monocytes Absolute Auto 1.4 X10*3/uL (0.1-1.2); Monocytes Percent Auto 8.9 % (2-11); Neutrophils Absolute Auto 12.8 x10*3/uL (2.0-8.3); Neutrophils Percent Auto 81.9 % (45-73); Platelet Count 515 X10*3/uL (160-400); Red Blood Count 4.25 X10*6/uL (4.60-5.80); Red Cell Distribution Width 19.7 % (11.0-16.0); White Blood Count 15.7 X10*3/uL (4.8-10.8)
--- NOTE | 2023-10-13 09:13 | P.HPHOSP_ITS ---
History of Present Illness Date of Service: 10/13/23 Chief Complaint: R-sided chest pain This is a 77 year old male with a PMH as outlined below who presents to the ED with complaints of R lateral chest pain. Patient is primary Albanian speaking and history is obtained via admitting coordinator services. His significant other is bedside and provides part of the history. The patient has a known history of lung Ca. He was seen in the ED on 10/07 for similar complaints. At that time he was diagnosed with asthma and fatigue. He was discharged on a course of prednisone + antibiotics as well as morphine / lidocaine patch for pain. It appears that the patient did not cert occupational therapy asst the morphine. He has chronically been on tramadol + Tylenol, which appeared to be controlling the pain until the last several day. Due to uncontrolled pain, the patient presented to [facility]. In the ED, the patient was treated with oral and IV analgesics. While being worked up, he became tachycardic and EKG revealed A. Fib with RVR. He was treated with multiple doses of IV metoprolol and cardizem, but remained tachycardic. He was subsequently placed on a Cardizem drip for several hours and now has converted to sinus rhythm. The patient will be placed under obs for pain control and new onset PAF with RVR. Review of Systems 2 Review of Systems: Negative except HPI/interval history. [facility] Medical History Acute exacerbation of chronic obstructive pulmonary disease Abnormal PET scan of colon Tobacco dependence Chronic respiratory failure Sepsis Osteoporosis COPD (chronic obstructive pulmonary disease) Ureteral calculi Hypertension Hypothyroidism GERD (gastroesophageal reflux disease) Osteoarthritis Oxygen dependent Diabetes Asthma Family History Father Throat cancer Brother Lung cancer Other Hypertension Surgical History History of lithotripsy (~2008) History of cataract surgery (~2011) History of lung biopsy (~2021) History of appendectomy Social History Household Members: Spouse Household Members Other:: 1 Housing: Apartment Are you a primary caregivers homecare to a significant other at home: No Do you presently have visiting nurse or other home services: No Alcohol intake: former Patient Tobacco Use Status: Current everyday Tobacco user Tobacco use type: Cigarette Cigarette Packs Per Day: 0.5 Cigarettes Per Day: 10.0 Years Smoked: 62 Smoked in Last 30 Days: Yes e-Cigarette/Vaping Use: Currently Using Second Hand Smoke Exposure: No Use of substances other than those prescribed or required for medical reasons: No Advance Directives: No Advance Directives Information Provided: No Advance Directives Date on File: 12/18/20 service: No Current occupational status: unemployed and retired Meds Allergies Allergy/AdvReac Type Severity Reaction Status Date / Time pollen extracts [POLLEN] Allergy Intermediate RUNNING Verified 10/04/23 09:59 NOSE, WATERY EYES, SNEEZING varenicline [VARENICLINE] AdvReac Unknown PALPITATION Verified 10/04/23 09:59 S Active Medications: Current Medications Apixaban (Apixaban 5 Mg Tablet) 5 mg PO BID [facility] Diltiazem HCl 125 mg/ Sodium (Chloride) 125 mls @ 0 mls/hr IVCONT .Q0M [facility]; Protocol Last Titration: 10/13/23 07:42 Dose: 0 mg/hr, 0 mls/hr Sodium Chloride (0.9 % Sodium Chloride Flush 3 Ml Syringe) 3 ml IVFLUSH QSHIFT [facility] Home Medications Medication Instructions Recorded Confirmed Last Taken Type omeprazole 20 mg capsule,delayed 20 mg PO DAILY@0630 12/01/20 10/04/23 06/17/23 06:30 History release multivitamin with folic acid 400 1 tab PO DAILY 08/28/22 10/04/23 06/17/23 09:00 History mcg tablet (Daily-Leslie (with folic acid)) levothyroxine 88 mcg tablet 88 mcg PO DAILY@0600 06/17/23 10/04/23 06/17/23 06:00 History acetaminophen 325 mg tablet 650 mg PO Q6H PRN Pain 06/18/23 10/04/23 Unknown History (Tylenol) topiramate 50 mg tablet 50 mg PO DAILY 06/18/23 10/04/23 06/17/23 09:00 History ipratropium 0.5 mg-albuterol 3 mg 3 ml inhalation QID PRN wheezing 07/02/23 10/04/23 Unknown History (2.5 mg base)/3 mL nebulization soln topiramate 50 mg tablet 100 mg PO BEDTIME 07/02/23 10/04/23 Unknown History prednisone 20 mg tablet 20 mg PO DAILY 08/12/23 10/04/23 Unknown History ibandronate 150 mg tablet 150 mg PO QMONTH 08/15/23 10/04/23 08/07/23 History testosterone cypionate 200 mg/mL 100 mg IM Q2W 08/15/23 10/04/23 08/10/23 History intramuscular oil cholecalciferol (vitamin D3) 25 50 mcg PO DAILY 09/13/23 10/04/23 Unknown History mcg (1,000 unit) tablet duloxetine 30 mg capsule,delayed 30 mg PO DAILY 09/13/23 10/04/23 Unknown History release fluticasone fur. 200 mcg-umeclid 1 inh inhalation DAILY 09/13/23 10/04/23 Unknown History 62.5 mcg-vilant 25 mcg inhalat.powder (Trelegy Ellipta) metformin 500 mg tablet 500 mg PO DAILY 09/13/23 10/04/23 Unknown History mirtazapine 7.5 mg tablet 7.5 mg PO BEDTIME 09/13/23 10/04/23 Unknown History nabumetone 500 mg tablet 500 mg PO BID PRN Pain 09/13/23 10/04/23 Unknown History pyridoxine (vitamin B6) 50 mg 50 mg PO DAILY 09/13/23 10/04/23 Unknown History tablet Physical Exam 2 Vital Signs and Narrative: Vital Signs: Last Vital Signs Temp 99.6 F 10/13/23 05:59 Pulse 88 10/13/23 08:24 Resp 18 10/13/23 08:24 BP 99/58 L 10/13/23 08:24 Pulse Ox 96 10/13/23 08:16 O2 Del Method Room Air 10/13/23 08:16 BMI result Body Mass Index 16.0 Const: Other: General - appears in mild pain otherwise no respiratory distress Cardiovascular - regular rate and rhythm, S1-S2 Lungs - rales R mid/lower lung otherwise clear Abdomen - soft, nontender, no rebound or guarding Extremities - no edema bilaterally Neuro - awake and alert, no focal deficits Results Labs 10/13/23 05:01 10/13/23 05:01 Labs: Laboratory Results - last 24 hr 10/13/23 10/13/23 03:31 05:01 MCV 75.8 L MCH 22.6 L MCHC 29.8 L RDW 19.7 H Plt Count 515 H MPV 9.3 L Immature Gran % (Auto) 0.6 H Neut % (Auto) 81.9 H Lymph % (Auto) 7.7 L [place] % (Auto) 8.9 Eos % (Auto) 0.6 Baso % (Auto) 0.3 Lymph # (Auto) 1.2 [place] # (Auto) 1.4 H Eos # (Auto) 0.1 Baso # (Auto) 0.0 Abs Immat Gran (auto) 0.10 H Absolute Neuts (auto) 12.8 H Absolute Nucleated RBC 0.000 Nucleated RBC % (auto) 0.0 PT 15.1 H INR 1.2 H APTT 33.6 Anion Gap 12 Estim Creat Clear Calc 47.9 Estimated GFR > 60 Random Glucose 188 H Calcium 9.1 Magnesium 1.8 Total Bilirubin 0.6 AST 19 ALT 5 Alkaline Phosphatase 100 Total Protein 6.2 L Albumin 3.1 L Urine Color Yellow Urine Appearance Clear Urine pH 7.5 Ur Specific [place] 1.020 Urine Protein 30 (1+) H Urine Glucose (UA) 100 H Urine Ketones Trace Urine Blood Negative Urine Nitrite Negative Ur Leukocyte Esterase Negative Urine RBC 0-2 Urine WBC 0-5 Ur Squamous Epith Cells 0-2 Urine Bacteria None Seen Hyaline Casts 0-2 COVID-19 (ELIO) Negative COVID-19 Clin Com See Note Imaging Radiologist's Impressions: Impressions Chest X-Ray 10/13/23 02:45 IMPRESSION: Lobular right perihilar and infrahilar/right lower lung field mass and right midlung field pleural mass. No new infiltrate. No significant change. Assessment and Plan (1) Atrial fibrillation with rapid ventricular response: Status: Acute Plan 77 yo M with a PMH of COPD/Asthma, chronic tobacco use, lung Ca, lung Ca, hypothyroidism who presents to the ED with R lateral/lower chest pain, likely secondary to his known lung Ca. He has developed PAF with RVR while in the ED and is s/p cardizem drip. He continues to have pain and hence will be placed under obs for pain control. 1. Intractable pain, likely secondary to known lung Ca on Tramadol + Tylenol at home (d/w the patient and and significant other in detail -- he has not picked up the morphine which was prescribed at last ED visit on 10/07) Given morphine / Dilaudid (IV) in the ED -- will start Dilaudid 2mg PO for moderate and 0.5mg IV for severe pain 2. New onset A. Fib with RVR (Paroxysmal) s/p IV Cardizem drip -- now in sinus BP soft, will start with low dose Cardizem (15mg QID) d/w re: anticoagulation (CHADSVASC 3) -- unsure if he wants to start it; it has been ordered and he will let us know if he is not interested hold off on cardiology consult / echo given his advanced cancer (he is unsure how aggressive he would like to pursue this, currently main complaint is of pain) monitor on tele 3. Protein-calorie malnutrition, likely severe likely due to underlying Ca supplements 4. Asthma/COPD doesn't appear to be in exacerbation, continue baseline inhalers 5. DM sling scale Continue other baseline meds as appropriate once med rec completed. Reports son and niece are his healthcare proxies; wishes to be DNR/DNI Quality Stroke Does the patient have a stroke diagnosis?: No VTE Prior VTE?: No VTE Risk Level:: Medical - moderate - high VTE Device Contraindication: Treatment Not Indicated VTE Drug Contraindication: N/A - Med Ordered
[2023-10-13 09:20] LABS: Troponin-I High Sensitivity 19.3 ng/L (<3.5-35.0)
--- NOTE | 2023-10-13 10:04 | PC.NURSE ---
pt resting, family at bedside, awaiting room assignment. 20g IV right wrist patent. 83 rate, NSR on tele, vitals stable. pt reporting pain in right side, that is not too bad 4/10. pt has intermittent cough.
--- NOTE | 2023-10-13 11:00 | PC.NURSE ---
pt reporting cough and requesting cough medicine. notified. medicated with PRN order
[2023-10-13] MEDS: guaiFENesin DM 100/10/5 ML 5 ML SYRUP PO ×2 (11:01→20:34)
[2023-10-13 11:20] LABS: Glucose, Whole Blood 103 mg/dL (60-115)
--- NOTE | 2023-10-13 11:45 | PHA.MEDREC ---
Pharmacy Consult ? Medication Reconciliation Pharmacy has completed the medication reconciliation.
--- NOTE | 2023-10-13 12:03 | PC.NURSE ---
called to give report, waiting for call back from nurse
[2023-10-13] MEDS: dilTIAZem HCL 30 MG TABLET 15 MG PO ×3 (14:17→20:35)
[2023-10-13] MEDS: HYDROmorphone HCl 2 MG TABLET PO ×2 (14:17→20:39)
[2023-10-13] MEDS: Albuterol/Iprat 2.5/0.5MG 3 ML AMPUL.NEB INHALE ×2 (15:59→20:53)
[2023-10-13 17:02] LABS: Glucose, Whole Blood 115 mg/dL (60-115)
[2023-10-13] MEDS: 0.9 % Sodium Chloride Flush 3 ML SYRINGE IVFLUSH ×2 (17:08→20:35)
[2023-10-13] MEDS: HYDROmorphone HCl 0.5 MG/0.5 ML SYRINGE IVPUSH (17:08)
[2023-10-13] MEDS: Mirtazapine 7.5 MG TABLET PO (20:34)
[2023-10-13] MEDS: Topiramate 25 MG TABLET 100 MG PO (20:35)
[2023-10-13 20:56] LABS: Glucose, Whole Blood 114 mg/dL (60-115)
[2023-10-14] VITALS (9 sets, daily range): BP systolic 98–139; BP diastolic 57–78; PULSE 95–175; RESP 15–208; TEMP 36.6–37.2; O2SAT 92–96; BMI 16.0
[2023-10-14] MEDS: HYDROmorphone HCl 2 MG TABLET PO ×4 (00:54→21:29)
--- NOTE | 2023-10-14 05:52 | PM.EVENT ---
Event Note Date of Service: 10/14/23 Event Note: Informed by the nurse that patient got up to go to the bathroom and heart rate jumped to 150s, concerning for AFib. Blood pressure 98/66. Ordered IV diltiazem stat but before it could be given, patient's heart rate self resolved and is now in the 100s. Time Spent With Patient Time: Total time managing care of this patient today ____ minutes.
[2023-10-14] MEDS: dilTIAZem HCL 30 MG TABLET 15 MG PO ×2 (05:57→12:08)
[2023-10-14] MEDS: Levothyroxine Sodium 88 MCG TABLET PO (05:57)
[2023-10-14] MEDS: Omeprazole 20 MG CAPSULE.DR PO (05:57)
--- NOTE | 2023-10-14 07:00 | CA_ITS ---
Transthoracic Echocardiogram Patient (Last, First, Middle): Raudel Ames L Gender: Male Date of : 1945 Age: 77 Procedure Date: 10/14/2023 Procedure Type: Transthoracic Echocardiogram [place] [facility] [place]: 165.1 cm Weight: 43.55 kg BSA: 1.45 m2 Heart Rate: 97 bpm BP: 135 / 63 mmHg Cat Cracker Operator: CJ/TATI Referring MD: Pallavi BACA Symptoms: uncontrolled HR, afib Study Quality: Fair/narrow ribs ECG Rhythm: Sinus Conclusions: - The left ventricular systolic function is normal. The visually estimated ejection fraction is between 60-65%. - The basal inferolateral segment is akinetic. - No obvious valvular pathology seen on this study. Findings Procedure Information Contrast agent, definity, is being given per protocol without apparent complications. The quality of the study was technically difficult. The study quality is limited by lung artifact. Left Ventricle Normal left ventricular cavity size. There is normal left ventricular wall thickness. The left ventricular systolic function is normal. The visually estimated ejection fraction is between 60-65%. There is evidence of regional wall motion abnormalities. Diastolic function is normal for age. Wall Motion Rest Echo Findings The basal inferolateral segment is akinetic. Right Ventricle Normal right ventricular cavity size. There is normal right ventricular systolic function. Atria Both atria are normal in size. Aortic Valve There is mild calcification of the aortic valve. There is no aortic valve stenosis. There is no aortic valve regurgitation. Mitral Valve The mitral valve appears normal. There is no mitral valve regurgitation. There is no mitral valve stenosis. Pulmonic Valve The pulmonic valve is likely normal. Tricuspid Valve Normal tricuspid valve structure. There is no tricuspid valve regurgitation. Tricuspid regurgitation envelope is inadequate for calculation of right ventricular systolic pressure. Great Vessels The aortic annulus is normal in size. Venous The inferior vena cava is normal in size and collapses greater than 50% with inspiration. Pericardium/Pleural There is no evidence of pericardial effusion. Prior Study Comparison Changes noted compared to prior study dated: 01/30/2021. see comment on wall motion. Recommendations, Care & Conclusions No obvious valvular pathology seen on this study. Measurements 2D Linear Measurements IVSd: 0.80 0.6-0.9/0.6-1.0 cm LVIDd: 3.93 3.9-5.3/4.2-5.9 cm LVIDd Index: 2.71 2.4-3.2/2.2-3.1 cm/m2 LVIDs: 3.31 2.0-3.6 cm LVPWd: 0.57 0.7-1.1 cm LA Diam: 2.50 2.7-3.8/3.0-4.0 cm LAIDs Index: 1.72 1.5-2.3 cm/m2 LV Mass: 91.36 67-162/88-224 g LV Mass Index: 63.00 43-95/49-115 g/m2 LVOT Diam: 2.00 3.0+(-)1.3 cm 2D Systolic Function EF 4C: 61.80 >55% EF 2C: 65.10 >55% EF BiP: 64.80 >55% Mitral Valve MV Pk E: 0.51 MV PK A: 0.76 MV Decel Time: 190.00 E/A: 0.70 E'Lateral: 9.79 E'Medial: 7.18 E/E' Med: 7.00 E/E' Lat: 5.20 PHT: 56.00 MVA PHT: 3.93 Decel Gladwin: 2.66 Aortic Valve AoV Pk James: 1.28 AoV Pk Grad: 7.00 MARLENE: 2.19 LVOT LVOT Pk James: 0.89 LVOT Mn James: 0.61 LVOT VTI: 0.15 LVOT Pk Grad: 3.00 LVOT Mn Grad: 2.00 LVOT Diam: 2.00 LVOT Area: 3.14 Diastolic Function MV Pk E: 0.51 MV Pk A: 0.76 E/A: 0.70 E'Medial: 7.18 E/E' Med: 7.00 E' Laterial: 9.79 E/E' Lat: 5.20 Right Ventricle TAPSE (mm): 14.30 TVS' James: 13.00 Tricuspid Valve RA Press: 3.00 Great Vessels Aorta Sinus of Valsalva: 2.90 2.0-3.5 cm Pulmonary Valve PV Pk James: 0.77 Peak PV Grad: 2.00 Updated in Other Vendor System with Status of Final Patrick Lopez MD electronically signed on 10/14/2023 4:07:54 PM with status of Final
--- NOTE | 2023-10-14 07:13 | PC.NURSE ---
Pt noted to be voiding when he went into rapid afib, HR low 200s. Pt felt his heart was racing but not other symptoms noted. Dr Morel notified via [employer] connect, order for IV cardizem placed. However, pt HR broke on it's own after just a few minutes and was in the low 100s. Dr. Morel had this RN given 0900 dose of PO cardizem early and NOT the IV cardizem.
--- NOTE | 2023-10-14 07:34 | ECG_ITS ---
Test Reason : tachycardia Blood Pressure : / mmHG Vent. Rate : 123 BPM Atrial Rate : 123 BPM P-R Int : 126 ms QRS Dur : 074 ms QT Int : 294 ms P-R-T Axes : 072 060 073 degrees QTc Int : 420 ms Sinus tachycardia with Premature ventricular complexes and Premature atrial complexes Nonspecific ST abnormality Abnormal ECG When compared with ECG of 13-OCT-2023 08:37, Heart rate has increased Premature atrial complexes are new Referred By: Pallavi Bernal Electronically Signed By:EMILEE DO MD
[2023-10-14 07:44] LABS: Glucose, Whole Blood 109 mg/dL (60-115)
[2023-10-14] MEDS: Albuterol/Iprat 2.5/0.5MG 3 ML AMPUL.NEB INHALE (07:47)
[2023-10-14] MEDS: Topiramate 25 MG TABLET 50 MG PO (08:03)
[2023-10-14] MEDS: guaiFENesin DM 100/10/5 ML 5 ML SYRUP PO (08:03)
[2023-10-14] MEDS: Theophylline Anhydrous ER 400 MG TAB.ER.24H PO (08:05)
[2023-10-14] MEDS: Pyridoxine HCl (Vitamin B6) 50 MG TABLET PO (08:05)
[2023-10-14] MEDS: DULoxetine HCl 30 MG CAPSULE.DR PO (08:05)
[2023-10-14] MEDS: Apixaban 5 MG TABLET PO ×2 (08:05→21:29)
[2023-10-14] MEDS: 0.9 % Sodium Chloride Flush 3 ML SYRINGE IVFLUSH ×3 (08:06→21:31)
[2023-10-14 09:38] LABS: Anion Gap 10 (12-20); Blood Urea Nitrogen 7 mg/dL (9-16); Calcium 8.8 mg/dL (8.4-10.2); Carbon Dioxide 23 mmol/L (22-29); Chloride 102 mmol/L (96-108); Creatinine Clr Calc Pharmacy 51.7; Estimated Glomerular Filt Rate > 60; Glucose Random 159 mg/dL (60-115); Magnesium 1.8 mg/dL (1.6-2.6); Potassium 3.9 mmol/L (3.3-5.1); Sodium 131 mmol/L (135-145)
[2023-10-14 09:52] LABS: TSH reflex Free T4 7.59 uIU/mL (0.32-4.0)
--- NOTE | 2023-10-14 09:59 | P.CONCA_ITS ---
History of Present Illness History of Present Illness Date of Service: 10/14/23 Chief complaint: Rib pain, new onset afib with rvr Narrative: This are cardiology consultation for question of atrial fibrillation. Discussed with patient using [employer] professor. It seems has a history of lung cancer. Presenting complaint was mainly for right lateral chest pain and in that context, he was found to be tachycardic and apparently EKG had shown atrial fibrillation rapid rate. Then he was given multiple doses of IV metoprolol and Cardizem and then he was placed on Cardizem drip for many hours. Eventually converted to sinus rhythm. We have been asked to comment on further management. Patient states he does not have any history of cardiac issues like coronary disease or myocardial infarction or cardiomyopathy. He might have had some palpitations but can difficult to say as he is vague about it. Review of Systems 2 Review of Systems: Yes all other systems are reviewed and are negative Constitutional: Constitutional: Reports as per HPI and Reports no additional constitutional complaints Eyes: Eyes: Reports as per HPI and Denies no additional eye complaints ENT: Denies system reviewed and no additional complaints, except as documented and Reports as per HPI Cardiovascular: Cardiovascular: Reports as per HPI, Reports no additional cardiovascular complaints, Denies acrocyanosis, Denies cool extremities, Reports chest pain, Denies leg edema, Denies lightheadedness, Reports palpitations and Denies dyspnea Respiratory: Respiratory: Reports as per HPI, Denies no additional respiratory complaints and Denies dyspnea Gastrointestinal: Gastrointestinal: Reports as per HPI and Denies no additional gastrointestinal complaints Genitourinary: Genitourinary: Reports no additional male genitourinary complaints and Reports as per HPI Musculoskeletal: Musculoskeletal: Reports no additional musculoskeletal complaints and Reports as per HPI Integumentary/Breasts: Skin/Breast: Reports system reviewed and no additional complaints, except as docu Neurologic: Reports system reviewed and no additional complaints, except as documented and Reports as per HPI Psychiatric: Psychiatric: Reports no additional psychiatric complaints and Reports as per HPI Endocrine: Endocrine: Reports no additional endocrine complaints, Reports as per HPI and Reports palpitations Hematologic/Lymphatic: Hematologic/Lymphatic: Reports no additional hematologic/lymphatic complaints and Reports as per HPI Allergic/Immunologic: Allergic/Immunologic: Reports no additional allergic/immunologic complaints and Reports as per HPI [facility] Past Medical History Medical History Acute exacerbation of chronic obstructive pulmonary disease Abnormal PET scan of colon Tobacco dependence Chronic respiratory failure Sepsis Osteoporosis COPD (chronic obstructive pulmonary disease) Ureteral calculi Hypertension Hypothyroidism GERD (gastroesophageal reflux disease) Osteoarthritis Oxygen dependent Diabetes Asthma Family History Family History Father Throat cancer Brother Lung cancer Other Hypertension Surgical History Surgical History History of lithotripsy (~2008) History of cataract surgery (~2011) History of lung biopsy (~2021) History of appendectomy Social History Social History Household Members: Spouse Household Members Other:: 1 Housing: Apartment Are you a primary healthcare advisory services manager to a significant other at home: No Do you presently have visiting nurse or other home services: No Alcohol intake: former Patient Tobacco Use Status: Current everyday Tobacco user Tobacco use type: Cigarette Cigarette Packs Per Day: 0.5 Cigarettes Per Day: 10.0 Years Smoked: 62 Smoked in Last 30 Days: Yes e-Cigarette/Vaping Use: Currently Using Second Hand Smoke Exposure: No Use of substances other than those prescribed or required for medical reasons: No Advance Directives: No Advance Directives Information Provided: No Advance Directives Date on File: 12/18/20 service: No Current occupational status: unemployed and retired Meds Allergies Allergy/AdvReac Type Severity Reaction Status Date / Time pollen extracts [POLLEN] Allergy Intermediate RUNNING Verified 10/04/23 09:59 NOSE, WATERY EYES, SNEEZING varenicline [VARENICLINE] AdvReac Unknown PALPITATION Verified 10/04/23 09:59 S Active Medications: Current Medications Acetaminophen (Acetaminophen 325 Mg Tablet) 650 mg PO Q4H PRN PRN Reason: Fever >100.4 Albuterol/Ipratropium (Albuterol/Iprat 2.5/0.5mg 3 Ml Ampul.Neb) 3 ml INHALE Q4H PRN PRN Reason: shortness of breath/wheezing Last Admin: 10/14/23 07:47 Dose: 3 ml Apixaban (Apixaban 5 Mg Tablet) 5 mg PO BID MEHDI Last Admin: 10/14/23 08:05 Dose: 5 mg Diltiazem HCl (Diltiazem Hcl 30 Mg Tablet) 15 mg PO QID [facility]; Protocol Last Admin: 10/14/23 05:57 Dose: 15 mg Duloxetine HCl (Duloxetine Hcl 30 Mg Capsule.Dr) 30 mg PO DAILY [facility] Last Admin: 10/14/23 08:05 Dose: 30 mg Guaifenesin/Dextromethorphan (Guaifenesin Dm 100/10/5 Ml 5 Ml Syrup) 5 ml PO Q6H PRN PRN Reason: Cough Last Admin: 10/14/23 08:03 Dose: 5 ml Hydromorphone HCl (Hydromorphone Hcl 0.5 Mg/0.5 Ml Syringe) 0.5 mg IVPUSH Q4H PRN; Protocol PRN Reason: Pain, Severe (Pain Scale 7-10) Last Admin: 10/13/23 17:08 Dose: 0.5 mg Hydromorphone HCl (Hydromorphone Hcl 2 Mg Tablet) 2 mg PO Q4H PRN PRN Reason: Pain, Moderate(Pain Scale 4-6) Last Admin: 10/14/23 08:04 Dose: 2 mg Insulin Human Lispro (Insulin Lispro 100 Unit/Ml 3 Ml Vial) 0 unit SUBCUT QIDACHS [facility]; Protocol Last Admin: 10/14/23 07:51 Dose: Not Given Levothyroxine Sodium (Levothyroxine Sodium 88 Mcg Tablet) 88 mcg PO DAILY@0600 [facility] Last Admin: 10/14/23 05:57 Dose: 88 mcg Mirtazapine (Mirtazapine 7.5 Mg Tablet) 7.5 mg PO BEDTIME [facility] Last Admin: 10/13/23 20:34 Dose: 7.5 mg Omeprazole (Omeprazole 20 Mg Capsule.Dr) 20 mg PO DAILY@0630 [facility] Last Admin: 10/14/23 05:57 Dose: 20 mg Pyridoxine HCl (Pyridoxine Hcl (Vitamin B6) 50 Mg Tablet) 50 mg PO DAILY [facility] Last Admin: 10/14/23 08:05 Dose: 50 mg Sodium Chloride (0.9 % Sodium Chloride Flush 3 Ml Syringe) [facility] Last Admin: 10/14/23 08:06 Dose: 3 ml Theophylline (Theophylline Anhydrous Er 400 Mg Tab.Er.24h) 400 mg PO DAILY [facility] Last Admin: 10/14/23 08:05 Dose: 400 mg Topiramate (Topiramate 25 Mg Tablet) 50 mg PO DAILY [facility] Last Admin: 10/14/23 08:03 Dose: 50 mg Topiramate (Topiramate 25 Mg Tablet) 100 mg PO BEDTIME [facility] Last Admin: 10/13/23 20:35 Dose: 100 mg Home Medications Medication Instructions Recorded Confirmed Last Taken Type omeprazole 20 mg capsule,delayed 20 mg PO DAILY@0630 12/01/20 10/13/23 06/17/23 06:30 History release multivitamin with folic acid 400 1 tab PO DAILY 08/28/22 10/13/23 06/17/23 09:00 History mcg tablet (Daily-Leslie (with folic acid)) levothyroxine 88 mcg tablet 88 mcg PO DAILY@0600 06/17/23 10/13/23 06/17/23 06:00 History acetaminophen 325 mg tablet 650 mg PO Q6H PRN Pain 06/18/23 10/13/23 Unknown History (Tylenol) topiramate 50 mg tablet 50 mg PO DAILY 06/18/23 10/13/23 06/17/23 09:00 History ipratropium 0.5 mg-albuterol 3 mg 3 ml inhalation QID PRN wheezing 07/02/23 10/13/23 Unknown History (2.5 mg base)/3 mL nebulization soln topiramate 50 mg tablet 100 mg PO BEDTIME 07/02/23 10/13/23 Unknown History ibandronate 150 mg tablet 150 mg PO QMONTH 08/15/23 10/13/23 08/07/23 History testosterone cypionate 200 mg/mL 100 mg IM Q2W 08/15/23 10/13/23 08/10/23 History intramuscular oil cholecalciferol (vitamin D3) 25 50 mcg PO DAILY 09/13/23 10/13/23 Unknown History mcg (1,000 unit) tablet duloxetine 30 mg capsule,delayed 30 mg PO DAILY 09/13/23 10/13/23 Unknown History release fluticasone fur. 200 mcg-umeclid 1 inh inhalation DAILY 09/13/23 10/13/23 Unknown History 62.5 mcg-vilant 25 mcg inhalat.powder (Trelegy Ellipta) metformin 500 mg tablet 500 mg PO DAILY 09/13/23 10/13/23 Unknown History mirtazapine 7.5 mg tablet 7.5 mg PO BEDTIME 09/13/23 10/13/23 Unknown History nabumetone 500 mg tablet 500 mg PO BID PRN Pain 09/13/23 10/13/23 Unknown History pyridoxine (vitamin B6) 50 mg 50 mg PO DAILY 09/13/23 10/13/23 Unknown History tablet morphine 15 mg immediate release 15 mg PO Q8H PRN pain 10/13/23 10/13/23 Unknown History tablet Physical Exam 2 Vital Signs: Vital Signs: Last Vital Signs Temp 98.1 F 10/14/23 07:35 Pulse 101 H 10/14/23 07:49 Resp 16 10/14/23 07:49 BP 135/63 10/14/23 07:35 Pulse Ox 96 10/14/23 07:35 O2 Del Method Room Air 10/14/23 07:35 BMI result Body Mass Index 16.0 Const: General: comfortable and no acute distress O rientation/consciousness: patient oriented x3 HEENT: Other: Unremarkable Head: Yes normal to inspection Neck: Neck: Yes normal visual inspection Chest: Chest palpation & inspection: normal inspection of the chest Resp: Auscultation: clear to auscultation bilaterally Cardio: Palpation: normal PMI Heart sounds: S1 normal heart sound present, S2 normal heart sound present, no gallops, no murmurs and no rubs GI: Palpation (GI): Soft to palpation Back/Spine/Pelvis: Other: unremarkable Skin: General skin exam: no rashes or lesions noted Neuro: General: patient oriented x3 Extrem: General: Yes normal to inspection Psych: Mental Status: mental status grossly normal Objective Labs and Meds 10/13/23 05:01 10/14/23 08:55 Lab results: Laboratory Results - last 24 hr 10/13/23 10/13/23 10/13/23 11:17 16:59 20:52 Hold Purple Top Sodium Potassium Chloride Carbon Dioxide Anion Gap BUN Creatinine Estim Creat Clear Calc Estimated GFR POC Glucose 103 115 114 Random Glucose Calcium Magnesium TSH 10/14/23 10/14/23 10/14/23 07:40 08:55 09:04 Hold Purple Top SEE NOTE Sodium 131 L Potassium 3.9 Chloride 102 Carbon Dioxide 23 Anion Gap 10 L BUN 7 L Creatinine 0.76 Estim Creat Clear Calc 51.7 Estimated GFR > 60 POC Glucose 109 Random Glucose 159 H Calcium 8.8 Magnesium 1.8 TSH 7.59 H ECG Interpretation: EKG is reviewed. Sinus rhythm at 90/Min with PVCs. In the initial EKG from 04:46 yesterday, could be atrial flutter at 202/Min. Less likely atrial fibrillation. On telemetry, evidence of brief runs but nothing persistent. Currently, he is in sinus tachycardia, mild at around 100/Min. When he was tachycardic, evidence of ST depression. Assessment and Plan (1) Atrial fibrillation with rapid ventricular response: Status: Acute Plan Episodes of atrial flutter versus fibrillation with rapid rate but currently in sinus rhythm. We can do diltiazem CD 1 20 mg daily. Eliquis for anticoagulation. Echocardiogram today. Will follow-up with you. Discussed with Pallavi Bernal. Procedures Date of Service Date of Service: 10/14/23
[2023-10-14 10:59] LABS: Free T4 (Free Thyroxine) 1.06 ng/dL (0.71-1.85)
[2023-10-14 11:24] LABS: Glucose, Whole Blood 156 mg/dL (60-115)
--- NOTE | 2023-10-14 11:59 | MHC.CLN ---
PT IS MODERATELY MALNOURISHED PT IS MILDLY DEPLETED IN SUBCUTANEOUS FAT AND MUSCLE MASS WITH BMI 16 AND 7% NONSIGNIFICANT WT LOSS X 6 MONTHS REGULAR DIET RECOMMEND ADDING MAGIC CUP TID TO INCREASE KCALS SUPP TO PROVIDE 810KCALS, 27G PROTEIN MONITOR PO INTAKE CLOSELY SEE ALSO FULL CLINICAL NUTRITION ASSESSMENT
[2023-10-14] MEDS: Insulin Lispro 100 UNIT/ML 3 ML VIAL SUBCUT (12:07)
[2023-10-14] MEDS: dilTIAZem HCL CD 120 MG CAP.ER.DEG PO (12:35)
--- NOTE | 2023-10-14 12:41 | MHC.CM.PN ---
IMM 10/14/23 ([place]), met with Pt. via interpreter deaf, he has HCP on file, CM found from previous hosp stay and gave pt's copies. Pt reports that he has enough assistance at home, he used a VNA in the past and did not find them helpful. His niece will pick him up upon DC. He does not have O2 at home. PCP: Kayla Ferrell in [facility]. Plan is home, self care.
--- NOTE | 2023-10-14 13:28 | P.PNIM_ITS ---
Subjective Subjective Date of Service: 10/14/23 Interval History: seen and examined this morning follow up for pain, and new onset atrial fibrillation history obtained with the assistance of a pediatric urologist patient with a few episodes of tachycardia overnight and this morning currently the patient denies any sob, palpitations or dizziness he continues to report right side rib pain, reproducible on exam Review of Systems Review of Systems: Yes all other systems are reviewed and are negative Constitutional Constitutional: Denies chills and Denies fever(s) ENT Ears, Nose, Mouth, and Throat: Denies dizziness Cardiovascular Cardiovascular: Denies palpitations Respiratory Respiratory: Denies cough Gastrointestinal Gastrointestinal: Denies abdominal pain Neurologic Neurologic: Denies dizziness Endocrine Endocrine: Denies palpitations Physical Exam 2 Vital Signs: Vital Signs: Last Vital Signs Temp 98.3 F 10/14/23 11:16 Pulse 95 10/14/23 11:16 Resp 19 10/14/23 11:16 BP 139/78 10/14/23 11:16 Pulse Ox 95 10/14/23 11:16 O2 Del Method Room Air 10/14/23 11:16 BMI result Body Mass Index 16.0 Const: Other: frail, cachetic elderly male resting in bed comfortably Resp: Effort & Inspection: normal respiratory effort, no respiratory distress and no use of accessory muscles Cardio: Rate: tachycardic GI: Inspection: No distended Palpation (GI): Soft to palpation Neuro: General: moves all extremities and CN's II-XI intact bilaterally Extrem: General: Yes no pedal edema Objective Data Active Medications Acetaminophen (Acetaminophen 325 Mg Tablet) 650 mg PO Q4H PRN PRN Reason: Fever >100.4 Albuterol/Ipratropium (Albuterol/Iprat 2.5/0.5mg 3 Ml Ampul.Neb) 3 ml INHALE Q4H PRN PRN Reason: shortness of breath/wheezing Last Admin: 10/14/23 07:47 Dose: 3 ml Documented By: AMINATA Apixaban (Apixaban 5 Mg Tablet) 5 mg PO BID [facility] Last Admin: 10/14/23 08:05 Dose: 5 mg Documented By: LUIGI Diltiazem HCl (Diltiazem Hcl Cd 120 Mg Cap.Er.Deg) 120 mg PO DAILY [facility]; Protocol Last Admin: 10/14/23 12:35 Dose: 120 mg Documented By: LUIGI Duloxetine HCl (Duloxetine Hcl 30 Mg Capsule.) 30 mg PO DAILY [facility] Last Admin: 10/14/23 08:05 Dose: 30 mg Documented By: LUIGI Guaifenesin/Dextromethorphan (Guaifenesin Dm 100/10/5 Ml 5 Ml Syrup) 5 ml PO Q6H PRN PRN Reason: Cough Last Admin: 10/14/23 08:03 Dose: 5 ml Documented By: LUIGI Hydromorphone HCl (Hydromorphone Hcl 0.5 Mg/0.5 Ml Syringe) 0.5 mg IVPUSH Q4H PRN; Protocol PRN Reason: Pain, Severe (Pain Scale 7-10) Last Admin: 10/13/23 17:08 Dose: 0.5 mg Documented By: ELLY Hydromorphone HCl (Hydromorphone Hcl 2 Mg Tablet) 2 mg PO Q4H PRN PRN Reason: Pain, Moderate(Pain Scale 4-6) Last Admin: 10/14/23 12:38 Dose: 2 mg Documented By: LUIGI Insulin Human Lispro (Insulin Lispro 100 Unit/Ml 3 Ml Vial) 0 unit SUBCUT QIDACHS [facility]; Protocol Last Admin: 10/14/23 12:07 Dose: 2 unit Documented By: LUIGI Levothyroxine Sodium (Levothyroxine Sodium 88 Mcg Tablet) 88 mcg PO DAILY@0600 [facility] Last Admin: 10/14/23 05:57 Dose: 88 mcg Documented By: MARIAN Mirtazapine (Mirtazapine 7.5 Mg Tablet) 7.5 mg PO BEDTIME [facility] Last Admin: 10/13/23 20:34 Dose: 7.5 mg Documented By: DERICK Omeprazole (Omeprazole 20 Mg Capsule.) 20 mg PO DAILY@0630 [facility] Last Admin: 10/14/23 05:57 Dose: 20 mg Documented By: MARIAN Pyridoxine HCl (Pyridoxine Hcl (Vitamin B6) 50 Mg Tablet) 50 mg PO DAILY [facility] Last Admin: 10/14/23 08:05 Dose: 50 mg Documented By: LUIGI Sodium Chloride (0.9 % Sodium Chloride Flush 3 Ml Syringe) [facility] Last Admin: 10/14/23 08:06 Dose: 3 ml Documented By: LUIGI Theophylline (Theophylline Anhydrous Er 400 Mg Tab.Er.24h) 400 mg PO DAILY [facility] Last Admin: 10/14/23 08:05 Dose: 400 mg Documented By: LUIGI Topiramate (Topiramate 25 Mg Tablet) 50 mg PO DAILY [facility] Last Admin: 10/14/23 08:03 Dose: 50 mg Documented By: LUIGI Topiramate (Topiramate 25 Mg Tablet) 100 mg PO BEDTIME [facility] Last Admin: 10/13/23 20:35 Dose: 100 mg Documented By: DERICK Labs 10/13/23 05:01 10/14/23 08:55 Labs: Laboratory Results - last 24 hr 10/13/23 10/13/23 10/14/23 16:59 20:52 07:40 Hold Purple Top Anion Gap Estim Creat Clear Calc Estimated GFR POC Glucose 115 114 109 Random Glucose Calcium Magnesium TSH Free T4 10/14/23 10/14/23 10/14/23 08:55 09:04 11:20 Hold Purple Top SEE NOTE Anion Gap 10 L Estim Creat Clear Calc 51.7 Estimated GFR > 60 POC Glucose 156 H Random Glucose 159 H Calcium 8.8 Magnesium 1.8 TSH 7.59 H Free T4 1.06 Assessment and Plan (1) Atrial fibrillation with rapid ventricular response: Status: Acute (2) Lung cancer: Status: Acute Plan 77 yo M with a PMH of COPD/Asthma, chronic tobacco use, lung Ca, lung Ca, hypothyroidism who presents to the ED with R lateral/lower chest pain, likely secondary to his known lung Ca. He has developed PAF with RVR while in the ED and is s/p cardizem drip. He continues to have pain and was initially admitted to observation for pain control, now with multiple episodes of tachycardia/afib with RVR 1. Intractable pain, likely secondary to known lung Ca on Tramadol + Tylenol at home (d/w the patient and and significant other in detail -- he has not picked up the morphine which was prescribed at last ED visit on 10/07) Given morphine / Dilaudid (IV) in the ED -- will start Dilaudid 2mg PO for moderate and 0.5mg IV for severe pain for cancer it seems he was previously not pursuing treatment and is not candidate for chemo but most recently he was scheduled to start immunotherapy with nivolumab but went to the ED 10/07 - the day of his first dose as so has not yet started any treatment. he does not seem to be interested in palliative or hospice care at this time 2. New onset A. Fib with RVR (Paroxysmal) s/p IV Cardizem drip -- now in sinus seen by cardiology and started on cardizem 120 CD CHADSVASC 3-started on Eliquis for anticoagulation echo pending monitor on tele 3. Protein-calorie malnutrition, likely severe likely due to underlying Ca supplements 4. Asthma/COPD doesn't appear to be in exacerbation, continue baseline inhalers 5. DM hold metformin sliding scale Reports son and niece are his healthcare proxies; wishes to be DNR/DNI attending - Dr. Mcmahon patient requires ongoing inpatient stay due to multiple episodes of tachycardia/atrial flutter/afib necessitating medication and specialist evaluation and close cardiac monitoring as well as pain control Quality Stroke Does the patient have a stroke diagnosis?: No VTE Prior VTE?: No VTE Risk Level:: Medical - moderate - high VTE Device Contraindication: Treatment Not Indicated VTE Drug Contraindication: N/A - Med Ordered
[2023-10-14 16:16] LABS: Glucose, Whole Blood 77 mg/dL (60-115)
[2023-10-14] MEDS: Amiodarone HCL 200 MG TABLET 400 MG PO (17:17)
[2023-10-14] MEDS: Metoprolol Tartrate 5 MG/5 ML VIAL IVPUSH (17:25)
[2023-10-14 20:26] LABS: Glucose, Whole Blood 113 mg/dL (60-115)
[2023-10-14] MEDS: Mirtazapine 7.5 MG TABLET PO (21:29)
[2023-10-14] MEDS: Topiramate 25 MG TABLET 100 MG PO (21:30)
[2023-10-15] VITALS (8 sets, daily range): BP systolic 101–124; BP diastolic 54–64; PULSE 73–87; RESP 16–20; TEMP 36.4–37.3; O2SAT 93–95
[2023-10-15] MEDS: Omeprazole 20 MG CAPSULE.DR PO (05:34)
[2023-10-15] MEDS: Levothyroxine Sodium 88 MCG TABLET PO (05:34)
[2023-10-15 07:47] LABS: Glucose, Whole Blood 106 mg/dL (60-115)
[2023-10-15] MEDS: Albuterol/Iprat 2.5/0.5MG 3 ML AMPUL.NEB INHALE ×2 (08:41→22:59)
[2023-10-15] MEDS: Pyridoxine HCl (Vitamin B6) 50 MG TABLET PO (08:43)
[2023-10-15] MEDS: dilTIAZem HCL CD 120 MG CAP.ER.DEG PO (08:43)
[2023-10-15] MEDS: Apixaban 5 MG TABLET PO ×2 (08:43→22:16)
[2023-10-15] MEDS: Topiramate 25 MG TABLET 50 MG PO (08:43)
[2023-10-15] MEDS: DULoxetine HCl 30 MG CAPSULE.DR PO (08:43)
[2023-10-15] MEDS: Amiodarone HCL 200 MG TABLET 400 MG PO ×2 (08:43→22:15)
[2023-10-15] MEDS: Theophylline Anhydrous ER 400 MG TAB.ER.24H PO (08:43)
[2023-10-15] MEDS: 0.9 % Sodium Chloride Flush 3 ML SYRINGE IVFLUSH ×3 (08:44→22:18)
[2023-10-15 08:45] LABS: Hematocrit 31.5 % (42.0-52.0); Hemoglobin 9.5 g/dl (14.0-18.0); Mean Corpuscular HGB Conc 30.2 g/dl (31.0-36.0); Mean Corpuscular Hemoglobin 22.8 pg (27.0-33.0); Mean Corpuscular Volume 75.5 fL (80.0-98.0); Mean Platelet Volume 9.2 fL (9.4-12.4); Platelet Count 514 X10*3/uL (160-400); Red Blood Count 4.17 X10*6/uL (4.60-5.80); Red Cell Distribution Width 18.8 % (11.0-16.0); White Blood Count 14.3 X10*3/uL (4.8-10.8)
[2023-10-15 09:13] LABS: Anion Gap 15 (12-20); Blood Urea Nitrogen 9 mg/dL (9-16); Calcium 9.1 mg/dL (8.4-10.2); Carbon Dioxide 22 mmol/L (22-29); Chloride 102 mmol/L (96-108); Creatinine Clr Calc Pharmacy 49.7; Estimated Glomerular Filt Rate > 60; Glucose Random 104 mg/dL (60-115); Potassium 4.3 mmol/L (3.3-5.1); Sodium 135 mmol/L (135-145)
[2023-10-15 11:44] LABS: Glucose, Whole Blood 125 mg/dL (60-115)
--- NOTE | 2023-10-15 12:42 | MHC.CLN ---
F/U PT IS MODERATELY MALNOURISHED PT IS MILDLY DEPLETED IN SUBCUTANEOUS FAT AND MUSCLE MASS WITH BMI 16 AND 7% NONSIGNIFICANT WT LOSS X 6 MONTHS PO ITNAKE 75% X 3 MEALS DIET RX: REGULAR DIET PT RECEIVING MAGIC CUP TID TO INCREASE KCALS SUPP TO PROVIDE 810KCALS, 27G PROTEIN MONITOR PO INTAKE CLOSELY
--- NOTE | 2023-10-15 13:37 | P.PNCA_ITS ---
Subjective Subjective Date of Service: 10/15/23 Interval history: seen and examined. 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 He states he is feeling fine. No cardiac symptoms. Review of Systems Review of Systems Yes all other systems are reviewed and are negative Constitutional: Reports as per HPI and Reports no additional constitutional complaints Eyes: Reports as per HPI and Denies no additional eye complaints Denies system reviewed and no additional complaints, except as documented and Reports as per HPI Cardiovascular: Reports as per HPI, Reports no additional cardiovascular complaints, Denies acrocyanosis, Denies cool extremities, Denies chest pain, Denies leg edema, Denies lightheadedness, Denies palpitations and Denies dyspnea Respiratory: Reports as per HPI, Denies no additional respiratory complaints and Denies dyspnea Gastrointestinal: Reports as per HPI and Denies no additional gastrointestinal complaints Genitourinary: Reports no additional male genitourinary complaints and Reports as per HPI Musculoskeletal: Reports no additional musculoskeletal complaints and Reports as per HPI Skin/Breast: Reports system reviewed and no additional complaints, except as docu Reports system reviewed and no additional complaints, except as documented and Reports as per HPI Psychiatric: Reports no additional psychiatric complaints and Reports as per HPI Endocrine: Reports no additional endocrine complaints, Reports as per HPI and Denies palpitations Hematologic/Lymphatic: Reports no additional hematologic/lymphatic complaints and Reports as per HPI Allergic/Immunologic: Reports no additional allergic/immunologic complaints and Reports as per HPI Physical Exam Vital Signs: Last Vital Signs Temp 98.5 F 10/15/23 11:07 Pulse 83 10/15/23 11:07 Resp 20 10/15/23 11:07 BP 124/64 10/15/23 11:07 Pulse Ox 95 10/15/23 11:07 O2 Del Method Room Air 10/15/23 11:07 BMI result Body Mass Index 16.0 Const General: comfortable and no acute distress Orientation/consciousness: patient oriented x3 HEENT Other: Unremarkable Head: Yes normal to inspection Neck Neck: Yes normal visual inspection Chest Chest palpation & inspection: normal inspection of the chest Resp Auscultation: clear to auscultation bilaterally Cardio Palpation: normal PMI Heart sounds: S1 normal heart sound present, S2 normal heart sound present, no gallops, no murmurs and no rubs GI Palpation (GI): Soft to palpation Back/Spine/Pelvis Other: unremarkable Skin General skin exam: no rashes or lesions noted Neuro General: patient oriented x3 Extrem General: Yes normal to inspection Psych Mental Status: mental status grossly normal Objective Labs and Meds 10/15/23 08:26 10/15/23 08:26 Lab results: Laboratory Results - last 24 hr 10/14/23 10/14/23 10/15/23 16:06 20:17 07:39 WBC RBC Hgb Hct MCV MCH MCHC RDW Plt Count MPV Absolute Nucleated RBC Nucleated RBC % (auto) Sodium Potassium Chloride Carbon Dioxide Anion Gap BUN Creatinine Estim Creat Clear Calc Estimated GFR POC Glucose 77 113 106 Random Glucose Calcium 10/15/23 10/15/23 08:26 11:27 WBC 14.3 H RBC 4.17 L Hgb 9.5 L Hct 31.5 L MCV 75.5 L MCH 22.8 L MCHC 30.2 L RDW 18.8 H Plt Count 514 H MPV 9.2 L Absolute Nucleated RBC 0.000 Nucleated RBC % (auto) 0.0 Sodium 135 Potassium 4.3 Chloride 102 Carbon Dioxide 22 Anion Gap 15 BUN 9 Creatinine 0.79 Estim Creat Clear Calc 49.7 Estimated GFR > 60 POC Glucose 125 H Random Glucose 104 Calcium 9.1 Progress Note: A&P Assessment and plan (1) Atrial flutter with rapid ventricular response: Status: Acute Plan Telemetry with short episodes of atrial flutter with rapid rate. Currently in sinus rhythm. Continue amiodarone loading followed by maintenance. Continue diltiazem. Continue anticoagulation. If able, avoid theophylline. Basal inferolateral akinesis on echocardiogram which could indicate wall motion abnormality. However, patient has absolutely no chest pain and also has underlying malignancy. High sensitivity troponin is within normal limits. With history of underlying malignancy, no specific inpatient care. Can be followed as an outpatient. Discussed with Pallavi Bernal Time Spent With Patient Time: Total time managing care of this patient today ____ minutes. Progress Note: Quality Stroke Does the patient have a stroke diagnosis?: No Procedures Date of Service Date of Service: 10/15/23
--- NOTE | 2023-10-15 13:39 | PM.DS ---
DS: Providers Provider Date of Service: 10/17/23 Date of admission: 10/14/23 08:31 Date of discharge: 10/17/23 Primary care physician: Luz Mccall NP Consults: 10/14/23 07:37 Consult to Cardiology Routine Consulting Provider: [facility] Reason for consultation: afib rvr Has provider been notified: No Attending physician on discharge: Miguel Mcmahon Discharging clinician: Pallavi Bernal DS: Diagnosis Discharge Diagnosis (1) Atrial fibrillation with rapid ventricular response: Status: Acute (2) Lung cancer: Status: Acute DS: Summary Hospital Course Hospital Course: From H&P on day of admission This is a 77 year old male with a PMH as outlined below who presents to the ED with complaints of R lateral chest pain. Patient is primary Slovak speaking and history is obtained via stitcher hand services. His significant other is bedside and provides part of the history. The patient has a known history of lung Ca. He was seen in the ED on 10/07 for similar complaints. At that time he was diagnosed with asthma and fatigue. He was discharged on a course of prednisone + antibiotics as well as morphine / lidocaine patch for pain. It appears that the patient did not picker the morphine. He has chronically been on tramadol + Tylenol, which appeared to be controlling the pain until the last several day. Due to uncontrolled pain, the patient presented to [facility] ED. In the ED, the patient was treated with oral and IV analgesics. While being worked up, he became tachycardic and EKG revealed A. Fib with RVR. He was treated with multiple doses of IV metoprolol and cardizem, but remained tachycardic. He was subsequently placed on a Cardizem drip for several hours and now has converted to sinus rhythm. The patient will be placed under obs for pain control and new onset PAF with RVR. Intractable pain, likely secondary to known lung Ca on Tramadol + Tylenol at home (d/w the patient and and significant other in detail -- he has not picked up the morphine which was prescribed at last ED visit on 10/07) Given morphine / Dilaudid (IV) in the ED. he was started on Dilaudid 2mg PO with good effect for cancer it seems he was previously not pursuing treatment and is not candidate for chemo but most recently he was scheduled to start immunotherapy with nivolumab but went to the ED 10/07 - the day of his first dose and so has not yet started any treatment. he does not seem to be interested in palliative or hospice care at this time. recommend outpatient follow up with oncology New onset A. Farnaz with RVR (Paroxysmal) initially placed on Cardizem drip, then converted back to sinus and and was placed on low dose short acting cardizem. He was also started on Eliquis for anticoagulation. he was noted to have multiple episodes of tachycardia with HR into the 180s which typically resolved before IV meds could be given. He was seen by cardiology and concerted to cardizem 120 CD. He continued to have HR spikes and was thus started on PO amiodorone. He converted to NSR and has stayed in sinus rhythm. He remained asymptomatic for these ECHO was obtained showed EF of 60-65% with mild diastolic dysfunction and wall motion abnormality. Per cardiology on review on previous echo WMA may have been there although it was not documented as such. Due to underlying progressive cancer and as the patient is asymptomatic, no further work up will be pursued at this time. He will follow-up with Cardiology on an outpatient basis chronic asthma/copd - he had one brief episode of hypoxia on the day of admission, but has been on room air since then. no acute exacerbation. dose of theophylline will be reduced due to above Had long discussion on multiple occasions with patient, his girlfriend and niece at the bedside. He initially wanted to go home but family was concerned he was too weak. He was evaluated by PT who recommended STR. He was in agreement and kept in the hospital for placement. Unfortunately he is now declining STR. He will be discharged home with PT and VNA services. Given his weakness and frailness and underlying advancing cancer palliative care and hospice were discussed but declined. Recommend further outpatient discussion with oncology and PCP. Time Attestation Discharge coordination time: Greater than 30 minutes Quality: Safe Use of Opioids Does Pt have an Active Cancer Diagnosis on the Problem List?: Yes Opioid Measure Date for [facility] Report: 09/17/23 Opioid Measure Time for [facility] Report: 09:38 Quality: Stroke Does the patient have a stroke diagnosis?: No Physical Exam Vital Signs: Vital Signs: Last Vital Signs Temp 98.5 F 10/15/23 11:07 Pulse 83 10/15/23 11:07 Resp 20 10/15/23 11:07 BP 124/64 10/15/23 11:07 Pulse Ox 95 10/15/23 11:07 O2 Del Method Room Air 10/15/23 11:07 BMI result Body Mass Index 16.0 Const: Other: frail, cachetic elderly male resting in bed comfortably Resp: Effort & Inspection: normal respiratory effort, no respiratory distress and no use of accessory muscles Cardio: Rate: regular rate GI: Inspection: No distended Palpation (GI): Soft to palpation Neuro: General: moves all extremities and CN's II-XI intact bilaterally Extrem: General: Yes no pedal edema DS: Data Data Completed and Pending Completed studies during hospitalization [Text1]: Procedures Dilation of Right Ureter with Intraluminal Device, Via Natural or Artificial Opening Endoscopic (11/16/21) Extirpation of Matter from Right Ureter, Via Natural or Artificial Opening Endoscopic (11/16/21) Fluoroscopy of Right Kidney, Ureter and Bladder (11/16/21) Labs on day of discharge: Laboratory Results - last 24 hr 10/14/23 10/14/23 10/15/23 16:06 20:17 07:39 WBC RBC Hgb Hct MCV MCH MCHC RDW Plt Count MPV Absolute Nucleated RBC Nucleated RBC % (auto) Sodium Potassium Chloride Carbon Dioxide Anion Gap BUN Creatinine Estim Creat Clear Calc Estimated GFR POC Glucose 77 113 106 Random Glucose Calcium 10/15/23 10/15/23 08:26 11:27 WBC 14.3 H RBC 4.17 L Hgb 9.5 L Hct 31.5 L MCV 75.5 L MCH 22.8 L MCHC 30.2 L RDW 18.8 H Plt Count 514 H MPV 9.2 L Absolute Nucleated RBC 0.000 Nucleated RBC % (auto) 0.0 Sodium 135 Potassium 4.3 Chloride 102 Carbon Dioxide 22 Anion Gap 15 BUN 9 Creatinine 0.79 Estim Creat Clear Calc 49.7 Estimated GFR > 60 POC Glucose 125 H Random Glucose 104 Calcium 9.1 Discharge Plan Discharge Anticipated Discharge Date/Time: 10/17/23 09:36 Patient Disposition: Home Health Service Discharge Diagnosis: atrial flutter Referrals: Luz Mccall NP [Primary Care Provider] - 1 Week Patrick Lopez MD [Physician] - 2 Weeks Discharge Medications: New Eliquis 5 mg Tablet 5 mg PO BID 30 Days Qty: 60 0RF diltiazem HCl [Cardizem CD] 120 mg Capsule,Extended Release 24hr 120 mg PO DAILY 30 Days Qty: 30 0RF Protocol: Hold for SBP/HR < HOLD for SBP < : 90 HOLD for HR < : 60 hydromorphone 2 mg Tablet 2 mg PO Q6H PRN (Reason: Pain, Moderate(Pain Scale 4-6)) Qty: 20 0RF Rx Instructions: Partial Fill upon patient request. theophylline 300 mg capsule,extended release 24hr 300 mg PO DAILY 30 Days Qty: 30 0RF amiodarone 200 mg tablet 200 mg PO BID Qty: 82 0RF Rx Instructions: take 400 mg (2 pills) twice daily until 10/28 and then take 200 mg (1 pill) once daily Continued omeprazole 20 mg capsule,delayed release(DR/EC) 20 mg PO DAILY@0630 albuterol sulfate 90 mcg/actuation aerosol powdr breath activated 2 inh inhalation Q4-6H PRN (Reason: shortness of breath or wheezing) Qty: 1 0RF multivitamin with folic acid [Daily-Leslie (with folic acid)] 400 mcg tablet 1 tab PO DAILY levothyroxine 88 mcg tablet 88 mcg PO DAILY@0600 topiramate 50 mg tablet 50 mg PO DAILY acetaminophen [Tylenol] 325 mg Tablet 650 mg PO Q6H PRN (Reason: Pain) prednisone 20 mg tablet 40 mg PO DAILY 5 Days Qty: 10 0RF Rx Instructions: take until 10/18 lidocaine 5 % adhesive patch,medicated 1 patch topical DAILY PRN (Reason: pain) Qty: 15 0RF Rx Instructions: leave on most painful area for up to 12 hrs ipratropium-albuterol 0.5 mg-3 mg(2.5 mg base)/3 mL solution for nebulization 3 ml inhalation QID PRN (Reason: wheezing) topiramate 50 mg tablet 100 mg PO BEDTIME testosterone cypionate 200 mg/mL oil 100 mg IM Q2W ibandronate 150 mg tablet 150 mg PO QMONTH metformin 500 mg tablet 500 mg PO DAILY pyridoxine (vitamin B6) 50 mg tablet 50 mg PO DAILY mirtazapine 7.5 mg tablet 7.5 mg PO BEDTIME duloxetine 30 mg capsule,delayed release(DR/EC) 30 mg PO DAILY Trelegy Ellipta 200-62.5-25 mcg blister with device 1 inh inhalation DAILY cholecalciferol (vitamin D3) 25 mcg (1,000 unit) tablet 50 mcg PO DAILY Discontinued tramadol 50 mg tablet 50 mg PO Q6H PRN (Reason: Pain) Qty: 50 0RF morphine 15 mg tablet 15 mg PO Q8H PRN (Reason: pain) nabumetone 500 mg tablet 500 mg PO BID PRN (Reason: Pain) theophylline 400 mg tablet extended release 24 hr 400 mg PO DAILY Qty: 30 6RF Discharge Orders: Discharge Order (Routine); Ordered 10/17/23 Ordered By: Pallavi Bernal Activity on Discharge: As tolerated Stand Alone Forms: Patient Portal Discharge page Care Plan Goals: see below Health Concerns: atrial fibrillation pain related to lung cancer Plan of Treatment: for atrial fibrillation you have been started on cardizem, take daily as prescribed there is loading dose for amiodarone, take 400 mg twice daily until 10/28/2023 and then switch to maintence dosing of 200 mg once daily take eliquis to reduce risk of stroke associated with atrial fibrillation as prescribed your dose of theophylline has been decreased, this will need to be picked up from the pharmacy for severe pain can take oral dilaudid. for less severe pain can take tramadol, but don't take both at the same time and at least 4-6 hours should separate doses of each call to schedule follow up appointment with cardiology call to schedule follow up appointment with oncology Assessment: see discharge summary Patient Instructions: Lung Cancer (DC)
--- NOTE | 2023-10-15 13:50 | P.CDIM_ITS ---
PROVIDER RESPONSE TEXT: To clarify, the appropriate diagnosis supported by the clinical indicators: Clinically unable to determine (explain): primarily has COPD QUERY TEXT: PHYSICIAN'S DOCUMENTATION REQUEST Date of Query: 10/15/2023 12:59 PM EST Patient Name: Raudel Ames Admit Date: 10/14/2023 Dear Pallavi Bernal, A review of the medical record indicates additional documentation may be needed. Please review below and update the documentation accordingly. Clinical indicators: PN: Assessment and plan - Asthma/COPD Doesnt appear to be in exacerbation, continue baseline inhalers. Chronic tobacco PMH of Chronic respiratory failure, oxygen dependent Based on the above, please clarify in the Progress Notes further specificity regarding the type of as thma without exacerbation: Mild persistent without exacerbation Moderate persistent Severe persistent Exercise induced Other (explain) Clinically unable to determine (explain) Thank you, Ethel Medina, CCS, CDIS Use of terms such as suspected, likely, concern for, or probable (associated with a specific diagnosi s that is being evaluated, monitored, or treated as if it exists) are acceptable and can be coded in the inpatient se tting, when documented at the time of discharge. Please use your independent medical judgment in providing your response. THIS QUERY IS PART OF THE PERMANENT MEDICAL RECORD
--- NOTE | 2023-10-15 13:50 | P.CDIM_ITS ---
PROVIDER RESPONSE TEXT: To clarify, the appropriate diagnosis supported by the clinical indicators: Hyponatremia QUERY TEXT: PHYSICIAN'S DOCUMENTATION REQUEST Date of Query: 10/15/2023 10:09 AM EST Patient Name: Raudel Ames Admit Date: 10/14/2023 Dear Pallavi Bernal, A review of the medical record indicates additional documentation may be needed. Please review below and update the documentation accordingly. Clinical Indicators: LAB FINDINGS: sodium 137 131L fluids Based on the above, is there a diagnosis that correlates with these lab findings: Hyponatremia Labs indicate a diagnosis of (please specify) Other (explain) Clinically unable to determine (explain) Thank you, Ethel Medina, CCS, CDIS Use of terms such as suspected, likely, concern for, or probable (associated with a specific diagnosi s that is being evaluated, monitored, or treated as if it exists) are acceptable and can be coded in the inpatient se tting, when documented at the time of discharge. Please use your independent medical judgment in providing your response. THIS QUERY IS PART OF THE PERMANENT MEDICAL RECORD
--- NOTE | 2023-10-15 14:02 | P.CDIM_ITS ---
PROVIDER RESPONSE TEXT: To clarify, the appropriate diagnosis supported by the clinical indicators: Respiratory failure with hypoxia: had brief episode of hypoxia documented in ED. since has been stabl e on room air QUERY TEXT: PHYSICIAN'S DOCUMENTATION REQUEST Date of Query: 10/15/2023 01:05 PM EST Patient Name: Raudel Ames Admit Date: 10/14/2023 Dear Pallavi Bernal, A review of the medical record indicates additional documentation may be needed. Please review below and update the documentation accordingly. Respiratory failure was documented on (insert date). Clinical Indicators: H&P: PMH - Chronic respiratory failure Oxygen dependent Lung cancer, tobacco use pulse ox 91 L Room air RR 24 If possible, please further clarify the type and acuity of respiratory failure if any: Respiratory failure with hypoxia Please specify acuity as Acute, Chronic, or Acute on chronic if known Respiratory failure with hypercapnia Please specify acuity as Acute, Chronic, or Acute on chronic if known Respiratory failure with hypoxia and hypercapnia Please specify acuity as Acute, Chronic, or Acute on chronic if known Other Other (explain) Clinically unable to determine (explain) Thank you, Ethel Medina, CCS, CDIS Use of terms such as suspected, likely, concern for, or probable (associated with a specific diagnosi s that is being evaluated, monitored, or treated as if it exists) are acceptable and can be coded in the inpatient se tting, when documented at the time of discharge. Please use your independent medical judgment in providing your response. THIS QUERY IS PART OF THE PERMANENT MEDICAL RECORD
--- NOTE | 2023-10-15 14:42 | MHC.CM.PN ---
Pt was medically cleared for DC, he will go home via private transport, plan is self care.
[2023-10-15 16:39] LABS: Glucose, Whole Blood 144 mg/dL (60-115)
--- NOTE | 2023-10-15 17:01 | P.PNIM_ITS ---
Subjective Subjective Date of Service: 10/15/23 Interval History: seen and examined this morning Follow-up for atrial fibrillation Heart rate has been better controlled Patient remains asymptomatic Plan to discharge patient home however girlfriend is now concerned about taking care of him at home and thinks he may benefit from going to rehab Review of Systems Review of Systems: Yes all other systems are reviewed and are negative Constitutional Constitutional: Denies chills and Denies fever(s) Physical Exam 2 Vital Signs: Vital Signs: Last Vital Signs Temp 97.5 F 10/15/23 15:07 Pulse 78 10/15/23 15:07 Resp 16 10/15/23 15:07 BP 124/64 10/15/23 15:07 Pulse Ox 95 10/15/23 15:07 O2 Del Method Room Air 10/15/23 15:07 BMI result Body Mass Index 16.0 Const: Other: frail, cachetic elderly male resting in bed comfortably Resp: Effort & Inspection: normal respiratory effort, no respiratory distress and no use of accessory muscles Cardio: Rate: regular rate GI: Inspection: No distended Palpation (GI): Soft to palpation Neuro: General: moves all extremities and CN's II-XI intact bilaterally Extrem: General: Yes no pedal edema Objective Data Active Medications Acetaminophen (Acetaminophen 325 Mg Tablet) 650 mg PO Q4H PRN PRN Reason: Fever >100.4 Albuterol/Ipratropium (Albuterol/Iprat 2.5/0.5mg 3 Ml Ampul.Neb) 3 ml INHALE Q4H PRN PRN Reason: shortness of breath/wheezing Last Admin: 10/15/23 08:41 Dose: 3 ml Documented By: AMINATA Amiodarone HCl (Amiodarone Hcl 200 Mg Tablet) 400 mg PO BID [facility] Last Admin: 10/15/23 08:43 Dose: 400 mg Documented By: AVIVA Apixaban (Apixaban 5 Mg Tablet) 5 mg PO BID [facility] Last Admin: 10/15/23 08:43 Dose: 5 mg Documented By: AVIVA Diltiazem HCl (Diltiazem Hcl Cd 120 Mg Cap.Er.Deg) 120 mg PO DAILY [facility]; Protocol Last Admin: 10/15/23 08:43 Dose: 120 mg Documented By: AVIVA Duloxetine HCl (Duloxetine Hcl 30 Mg Capsule.) 30 mg PO DAILY [facility] Last Admin: 10/15/23 08:43 Dose: 30 mg Documented By: AVIVA Guaifenesin/Dextromethorphan (Guaifenesin Dm 100/10/5 Ml 5 Ml Syrup) 5 ml PO Q6H PRN PRN Reason: Cough Last Admin: 10/14/23 08:03 Dose: 5 ml Documented By: LUIGI Hydromorphone HCl (Hydromorphone Hcl 0.5 Mg/0.5 Ml Syringe) 0.5 mg IVPUSH Q4H PRN; Protocol PRN Reason: Pain, Severe (Pain Scale 7-10) Last Admin: 10/13/23 17:08 Dose: 0.5 mg Documented By: ELLY Hydromorphone HCl (Hydromorphone Hcl 2 Mg Tablet) 2 mg PO Q4H PRN PRN Reason: Pain, Moderate(Pain Scale 4-6) Last Admin: 10/14/23 21:29 Dose: 2 mg Documented By: GERMAN Insulin Human Lispro (Insulin Lispro 100 Unit/Ml 3 Ml Vial) 0 unit SUBCUT QIDACHS [facility]; Protocol Last Admin: 10/15/23 12:43 Dose: Not Given Documented By: AVIVA Non-Admin Reason: No Insulin Coverage Levothyroxine Sodium (Levothyroxine Sodium 88 Mcg Tablet) 88 mcg PO DAILY@0600 [facility] Last Admin: 10/15/23 05:34 Dose: 88 mcg Documented By: GERMAN Mirtazapine (Mirtazapine 7.5 Mg Tablet) 7.5 mg PO BEDTIME [facility] Last Admin: 10/14/23 21:29 Dose: 7.5 mg Documented By: GERMAN Omeprazole (Omeprazole 20 Mg Capsule.) 20 mg PO DAILY@0630 [facility] Last Admin: 10/15/23 05:34 Dose: 20 mg Documented By: GERMAN Pyridoxine HCl (Pyridoxine Hcl (Vitamin B6) 50 Mg Tablet) 50 mg PO DAILY [facility] Last Admin: 10/15/23 08:43 Dose: 50 mg Documented By: AVIVA Sodium Chloride (0.9 % Sodium Chloride Flush 3 Ml Syringe) [facility] Last Admin: 10/15/23 08:44 Dose: 3 ml Documented By: AVIVA Theophylline (Theophylline Anhydrous Er 400 Mg Tab.Er.24h) 400 mg PO DAILY [facility] Last Admin: 10/15/23 08:43 Dose: 400 mg Documented By: AVIVA Topiramate (Topiramate 25 Mg Tablet) 50 mg PO DAILY [facility] Last Admin: 10/15/23 08:43 Dose: 50 mg Documented By: AVIVA Topiramate (Topiramate 25 Mg Tablet) 100 mg PO BEDTIME [facility] Last Admin: 10/14/23 21:30 Dose: 100 mg Documented By: PRADEEPAC Labs 10/15/23 08:26 10/15/23 08:26 Labs: Laboratory Results - last 24 hr 10/14/23 10/15/23 10/15/23 20:17 07:39 08:26 MCV 75.5 L MCH 22.8 L MCHC 30.2 L RDW 18.8 H Plt Count 514 H MPV 9.2 L Absolute Nucleated RBC 0.000 Nucleated RBC % (auto) 0.0 Anion Gap 15 Estim Creat Clear Calc 49.7 Estimated GFR > 60 POC Glucose 113 106 Random Glucose 104 Calcium 9.1 10/15/23 10/15/23 11:27 16:35 MCV MCH MCHC RDW Plt Count MPV Absolute Nucleated RBC Nucleated RBC % (auto) Anion Gap Estim Creat Clear Calc Estimated GFR POC Glucose 125 H 144 H Random Glucose Calcium Assessment and Plan (1) Atrial flutter with rapid ventricular response: Status: Acute (2) Lung cancer: Status: Acute Plan 77 yo M with a PMH of COPD/Asthma, chronic tobacco use, lung Ca, lung Ca, hypothyroidism who presents to the ED with R lateral/lower chest pain, likely secondary to his known lung Ca. He has developed PAF with RVR while in the ED and is s/p cardizem drip. He continues to have pain and was initially admitted to observation for pain control, now with multiple episodes of tachycardia/afib with RVR 1. Intractable pain, likely secondary to known lung Ca on Tramadol + Tylenol at home (d/w the patient and and significant other in detail -- he has not picked up the morphine which was prescribed at last ED visit on 10/07) Given morphine / Dilaudid (IV) in the ED -- will start Dilaudid 2mg PO for moderate and 0.5mg IV for severe pain for cancer it seems he was previously not pursuing treatment and is not candidate for chemo but most recently he was scheduled to start immunotherapy with nivolumab but went to the ED 10/07 - the day of his first dose as so has not yet started any treatment. he does not seem to be interested in palliative or hospice care at this time 2. New onset A. Fib with RVR (Paroxysmal) s/p IV Cardizem drip -- now in sinus seen by cardiology and started on cardizem 120 CD as well as amiodorone. plan for 400 bid loading dose for two weeks and then 200 mg daily CHADSVASC 3-started on Eliquis for anticoagulation echo with preserved EF; WMA likely on previous echo although not documented as such; pt asymptomatic, no further inpatient workup required outpatient follow up with cardiology 3. Protein-calorie malnutrition, likely severe likely due to underlying Ca supplements 4. Asthma/COPD doesn't appear to be in exacerbation, continue baseline inhalers 5. DM hold metformin sliding scale Reports son and niece are his healthcare proxies; wishes to be DNR/DNI attending - Dr. Mcmahon patient requires ongoing inpatient stay due to multiple episodes of tachycardia/atrial flutter/afib necessitating medication and specialist evaluation and close cardiac monitoring as well as pain control and safe disposition Quality Stroke Does the patient have a stroke diagnosis?: No VTE Prior VTE?: No VTE Risk Level:: Medical - moderate - high VTE Device Contraindication: Treatment Not Indicated VTE Drug Contraindication: N/A - Med Ordered
[2023-10-15] MEDS: Acetaminophen 325 MG TABLET 650 MG PO (17:55)
[2023-10-15 20:18] LABS: Glucose, Whole Blood 137 mg/dL (60-115)
[2023-10-15] MEDS: Topiramate 25 MG TABLET 100 MG PO (22:14)
[2023-10-15] MEDS: Mirtazapine 7.5 MG TABLET PO (22:15)
[2023-10-15] MEDS: HYDROmorphone HCl 2 MG TABLET PO (22:16)
[2023-10-15] MEDS: guaiFENesin DM 100/10/5 ML 5 ML SYRUP PO (22:20)
[2023-10-16] VITALS (9 sets, daily range): BP systolic 107–126; BP diastolic 55–63; PULSE 71–80; RESP 14–20; TEMP 36–37.3; O2SAT 95–97
[2023-10-16] MEDS: Levothyroxine Sodium 88 MCG TABLET PO (06:30)
[2023-10-16] MEDS: Omeprazole 20 MG CAPSULE.DR PO (06:30)
[2023-10-16 08:01] LABS: Glucose, Whole Blood 122 mg/dL (60-115)
[2023-10-16] MEDS: 0.9 % Sodium Chloride Flush 3 ML SYRINGE IVFLUSH ×2 (09:11→21:20)
[2023-10-16] MEDS: Amiodarone HCL 200 MG TABLET 400 MG PO ×2 (09:11→21:15)
[2023-10-16] MEDS: Theophylline Anhydrous ER 400 MG TAB.ER.24H PO (09:12)
[2023-10-16] MEDS: Pyridoxine HCl (Vitamin B6) 50 MG TABLET PO (09:12)
[2023-10-16] MEDS: DULoxetine HCl 30 MG CAPSULE.DR PO (09:12)
[2023-10-16] MEDS: dilTIAZem HCL CD 120 MG CAP.ER.DEG PO (09:12)
[2023-10-16] MEDS: Apixaban 5 MG TABLET PO ×2 (09:12→21:14)
[2023-10-16] MEDS: Topiramate 25 MG TABLET 50 MG PO (09:12)
[2023-10-16] MEDS: HYDROmorphone HCl 0.5 MG/0.5 ML SYRINGE IVPUSH (09:26)
--- NOTE | 2023-10-16 09:31 | MHC.CM.PN ---
Addendum entered by Mary Garcia 10/16/23 14:44: PT eval recommends STR. A bed offer has been received from [facility]. The family notified via [employer]. Family communicated that 1st choice is [facility]. [facility] was notified via care port that they are 1st choice. The facility has been called; because there has not been a response. CM will continue to follow. Original Note: Per Provider patient is ready to discharge. Family is not willing to take home at this time. They request STR. Per Provider PT recommends STR. No documentation is found in EMR. An [employer] has been arranged to speak with family re STR preferences.. Referrals will be sent pending [employer] meeting with CM and Family. CM will follow up on documentation required for STR.
[2023-10-16 11:42] LABS: Glucose, Whole Blood 144 mg/dL (60-115)
--- NOTE | 2023-10-16 14:12 | HO.PM.IMPN ---
Subjective Subjective Date of Service: 10/16/23 Interval History: seen and examined this morning follow up for chest pain, weakness no overnight events no change no respiratory symptoms, pain controlled Review of Systems Review of Systems: Yes all other systems are reviewed and are negative Constitutional Constitutional: Denies chills and Denies fever(s) Physical Exam Vital Signs: Vital Signs: Last Vital Signs Temp 98.5 F 10/16/23 11:13 Pulse 78 10/16/23 11:13 Resp 20 10/16/23 11:13 BP 117/58 L 10/16/23 11:13 Pulse Ox 96 10/16/23 11:13 O2 Del Method Room Air 10/16/23 11:13 BMI result Body Mass Index 16.0 Const: Other: frail, cachetic elderly male resting in bed comfortably Resp: Effort & Inspection: normal respiratory effort, no respiratory distress and no use of accessory muscles Cardio: Rate: regular rate and tachycardic GI: Inspection: No distended Palpation (GI): Soft to palpation Neuro: General: moves all extremities and CN's II-XI intact bilaterally Extrem: General: Yes no pedal edema Objective Data Active Medications Acetaminophen (Acetaminophen 325 Mg Tablet) 650 mg PO Q4H PRN PRN Reason: Fever >100.4 Last Admin: 10/15/23 17:55 Dose: 650 mg Documented By: AVIVA Albuterol/Ipratropium (Albuterol/Iprat 2.5/0.5mg 3 Ml Ampul.Neb) 3 ml INHALE Q4H PRN PRN Reason: shortness of breath/wheezing Last Admin: 10/15/23 22:59 Dose: 3 ml Documented By: MOHAN Amiodarone HCl (Amiodarone Hcl 200 Mg Tablet) 400 mg PO BID [facility] Last Admin: 10/16/23 09:11 Dose: 400 mg Documented By: ANDREA Apixaban (Apixaban 5 Mg Tablet) 5 mg PO BID [facility] Last Admin: 10/16/23 09:12 Dose: 5 mg Documented By: ANDREA Diltiazem HCl (Diltiazem Hcl Cd 120 Mg Cap.Er.Deg) 120 mg PO DAILY [facility]; Protocol Last Admin: 10/16/23 09:12 Dose: 120 mg Documented By: ANDREA Duloxetine HCl (Duloxetine Hcl 30 Mg Capsule.) 30 mg PO DAILY [facility] Last Admin: 10/16/23 09:12 Dose: 30 mg Documented By: ANDREA Guaifenesin/Dextromethorphan (Guaifenesin Dm 100/10/5 Ml 5 Ml Syrup) 5 ml PO Q6H PRN PRN Reason: Cough Last Admin: 10/15/23 22:20 Dose: 5 ml Documented By: LILLIAN Hydromorphone HCl (Hydromorphone Hcl 0.5 Mg/0.5 Ml Syringe) 0.5 mg IVPUSH Q4H PRN; Protocol PRN Reason: Pain, Severe (Pain Scale 7-10) Last Admin: 10/16/23 09:26 Dose: 0.5 mg Documented By: ANDREA Hydromorphone HCl (Hydromorphone Hcl 2 Mg Tablet) 2 mg PO Q4H PRN PRN Reason: Pain, Moderate(Pain Scale 4-6) Last Admin: 10/15/23 22:16 Dose: 2 mg Documented By: LILLIAN Insulin Human Lispro (Insulin Lispro 100 Unit/Ml 3 Ml Vial) 0 unit SUBCUT QIDACHS [facility]; Protocol Last Admin: 10/16/23 11:43 Dose: Not Given Documented By: ANDREA Non-Admin Reason: No Insulin Coverage Levothyroxine Sodium (Levothyroxine Sodium 88 Mcg Tablet) 88 mcg PO DAILY@0600 [facility] Last Admin: 10/16/23 06:30 Dose: 88 mcg Documented By: LILLIAN Mirtazapine (Mirtazapine 7.5 Mg Tablet) 7.5 mg PO BEDTIME [facility] Last Admin: 10/15/23 22:15 Dose: 7.5 mg Documented By: LILLIAN Omeprazole (Omeprazole 20 Mg Capsule.) 20 mg PO DAILY@0630 [facility] Last Admin: 10/16/23 06:30 Dose: 20 mg Documented By: LILLIAN Pyridoxine HCl (Pyridoxine Hcl (Vitamin B6) 50 Mg Tablet) 50 mg PO DAILY [facility] Last Admin: 10/16/23 09:12 Dose: 50 mg Documented By: ANDREA Sodium Chloride (0.9 % Sodium Chloride Flush 3 Ml Syringe) [facility] Last Admin: 10/16/23 09:11 Dose: 3 ml Documented By: ANDREA Theophylline (Theophylline Anhydrous Er 400 Mg Tab.Er.24h) 400 mg PO DAILY [facility] Last Admin: 10/16/23 09:12 Dose: 400 mg Documented By: ANDREA Topiramate (Topiramate 25 Mg Tablet) 50 mg PO DAILY [facility] Last Admin: 10/16/23 09:12 Dose: 50 mg Documented By: ANDREA Topiramate (Topiramate 25 Mg Tablet) 100 mg PO BEDTIME [facility] Last Admin: 10/15/23 22:14 Dose: 100 mg Documented By: LILLIAN Labs 10/15/23 08:26 10/15/23 08:26 Labs: Laboratory Results - last 24 hr 10/15/23 10/15/23 10/16/23 16:35 20:09 07:54 POC Glucose 144 H 137 H 122 H 10/16/23 11:14 POC Glucose 144 H Assessment and Plan (1) Atrial flutter with rapid ventricular response: Status: Acute (2) Lung cancer: Status: Acute Plan 77 yo M with a PMH of COPD/Asthma, chronic tobacco use, lung Ca, lung Ca, hypothyroidism who presents to the ED with R lateral/lower chest pain, likely secondary to his known lung Ca. He has developed PAF with RVR while in the ED and is s/p cardizem drip. He continues to have pain and was initially admitted to observation for pain control, now with multiple episodes of tachycardia/afib with RVR 1. Intractable pain, likely secondary to known lung Ca on Tramadol + Tylenol at home (d/w the patient and and significant other in detail -- he has not picked up the morphine which was prescribed at last ED visit on 10/07) Given morphine / Dilaudid (IV) in the ED -- will start Dilaudid 2mg PO for moderate and 0.5mg IV for severe pain for cancer it seems he was previously not pursuing treatment and is not candidate for chemo but most recently he was scheduled to start immunotherapy with nivolumab but went to the ED 10/07 - the day of his first dose as so has not yet started any treatment. he does not seem to be interested in palliative or hospice care at this time 2. New onset A. Fib with RVR (Paroxysmal) s/p IV Cardizem drip seen by cardiology and started on cardizem 120 CD as well as amiodorone. plan for 400 bid loading dose for two weeks and then 200 mg daily CHADSVASC 3-started on Eliquis for anticoagulation echo with preserved EF; WMA likely on previous echo although not documented as such; pt asymptomatic, no further inpatient workup required outpatient follow up with cardiology 3. Protein-calorie malnutrition, likely severe likely due to underlying Ca supplements 4. Asthma/COPD doesn't appear to be in exacerbation, continue baseline inhalers decrease theophylline per cardiololgy rec 5. DM hold metformin sliding scale leukocytosis ua, cxr negative no localized source of infection Reports son and niece are his healthcare proxies; wishes to be DNR/DNI attending - Dr. Clemente dispo - family feels pt is too weak to return home safely; PT rec STR, CM aware needs 3 day stay patient requires ongoing inpatient stay due to safe disposition Quality Stroke Does the patient have a stroke diagnosis?: No VTE Prior VTE?: No VTE Risk Level:: Medical - moderate - high VTE Device Contraindication: Treatment Not Indicated VTE Drug Contraindication: N/A - Med Ordered
[2023-10-16 17:02] LABS: Glucose, Whole Blood 107 mg/dL (60-115)
[2023-10-16] MEDS: HYDROmorphone HCl 2 MG TABLET PO (19:32)
[2023-10-16] MEDS: Albuterol/Iprat 2.5/0.5MG 3 ML AMPUL.NEB INHALE (19:39)
[2023-10-16 20:49] LABS: Glucose, Whole Blood 141 mg/dL (60-115)
[2023-10-16] MEDS: Docusate Sodium 100 MG CAPSULE PO (21:14)
[2023-10-16] MEDS: Topiramate 25 MG TABLET 100 MG PO (21:14)
[2023-10-16] MEDS: Mirtazapine 7.5 MG TABLET PO (21:15)
[2023-10-17 03:55] VITALS: BP 130/63; PULSE 73; RESP 14; TEMP 36.3; O2SAT 95
[2023-10-17] MEDS: Omeprazole 20 MG CAPSULE.DR PO (05:48)
[2023-10-17] MEDS: HYDROmorphone HCl 2 MG TABLET PO (05:48)
[2023-10-17] MEDS: Levothyroxine Sodium 88 MCG TABLET PO (05:48)
[2023-10-17 07:57] VITALS: BP 120/65; PULSE 75; RESP 20; TEMP 37.1; O2SAT 96
[2023-10-17 08:04] LABS: Glucose, Whole Blood 127 mg/dL (60-115)
[2023-10-17] MEDS: Apixaban 5 MG TABLET PO (09:14)
[2023-10-17] MEDS: DULoxetine HCl 30 MG CAPSULE.DR PO (09:14)
[2023-10-17] MEDS: dilTIAZem HCL CD 120 MG CAP.ER.DEG PO (09:14)
[2023-10-17] MEDS: Pyridoxine HCl (Vitamin B6) 50 MG TABLET PO (09:14)
[2023-10-17] MEDS: Topiramate 25 MG TABLET 50 MG PO (09:15)
[2023-10-17] MEDS: 0.9 % Sodium Chloride Flush 3 ML SYRINGE IVFLUSH (09:15)
[2023-10-17] MEDS: Theophylline Anhydrous ER 400 MG TAB.ER.24H 300 MG PO (09:15)
[2023-10-17] MEDS: Amiodarone HCL 200 MG TABLET 400 MG PO (09:18)
--- NOTE | 2023-10-17 09:50 | P.F2F_ITS ---
Service Date Service Date: 10/17/23 Encounter Date of encounter: 10/17/23 Reasons for Services Signs and symptoms assessed: needs nursing home for medication reconciliation and medication management due to multiple new medications. needs PT due to deconditioning, weakness, impaired balance Reason for nursing home: medication management Reason for physical therapy: home safety and mobility and gait/transfer training MD Overseeing Care: Luz Mccall Homebound: Leaving the home is medically contraindicated at this time without the asist of a device and/or another person due th the listed conditions above and below. Reason homebound: poor balance / fall risk and weakness related to hospital stay Certification: Based on the above findings, I certify that this patient is confined to the home and needs intermittent nursing home care, physical therapy and/or speech therapy, or continues to need occupational therapy. The patient is under my care, and I have initiated the establishment of the plan of care. The patient will be followed by a physician who will periodically review the plan of care. Time Spent With Patient Time: Total time managing care of this patient today ____ minutes.
--- NOTE | 2023-10-17 10:14 | MHC.CM.PN ---
IMM 10/16/23 Patient has decided to discharge to home instead of a SNF. The provider is discharging the patient today, home with services. Home care agency preferences obtained. A referral has been sent to [facility]. DC summary and packet have been sent via [employer]. A face 2 face has been requested for the [facility]. Patient will transport via BLS. radial drill press set up operator is scheduled for 1pm today.
[2023-10-17 11:17] VITALS: BP 129/64; PULSE 74; RESP 20; TEMP 36.8; O2SAT 94
[2023-10-17 11:47] LABS: Glucose, Whole Blood 112 mg/dL (60-115)
== END 2023-10-17 13:35 | disposition home health service (06) | DRG 308 ==
LOC: HO.ED 05:03 → HO.EDOVER 09:13 → HO.IMC 11:46
PROVIDERS: Admitting Provider Family Medicine; Emergency Provider Internal Medicine; PCP Internal Medicine; Visit Provider Physician Assistant Medical
DX: I48.0 Paroxysmal atrial fibrillation (principal); E43 Unspecified severe protein-calorie malnutrition; Z68.1 Body mass index [BMI] 19.9 or less, adult; C34.91 Malignant neoplasm of unspecified part of right bronchus or lung; E87.1 Hypo-osmolality and hyponatremia; J44.9 Chronic obstructive pulmonary disease, unspecified; E11.9 Type 2 diabetes mellitus without complications; G89.3 Neoplasm related pain (acute) (chronic); F17.210 Nicotine dependence, cigarettes, uncomplicated; I48.92 Unspecified atrial flutter; Z71.6 Tobacco abuse counseling; E03.9 Hypothyroidism, unspecified; Z20.822 Contact with and (suspected) exposure to COVID-19; Z99.81 Dependence on supplemental oxygen; Z91.148 Patient's other noncompliance with medication regimen for other reason; Z79.84 Long term (current) use of oral hypoglycemic drugs; Z79.899 Other long term (current) drug therapy
CPT/HCPCS: 36415; 71046; 80048; 80053; 81001; 82947; 83735; 84439; 84443; 84484; 85025; 85027; 85610; 85730; 87635; 92950; 93005; 93306; 94640; 97162; 99222; 99285; J1170; Q9957

== ENCOUNTER → 2023-10-13 09:08 | Outpatient (BNV) | payer MEDICARE, MEDICAID, SELFPAY | PROVIDERS: Admitting Provider Family Medicine; Emergency Provider Internal Medicine; PCP Nurse Practitioner Family; Visit Provider Family Medicine | DX: I48.92 Unspecified atrial flutter (principal); C34.90 Malignant neoplasm of unspecified part of unspecified bronchus or lung | CPT/HCPCS: 99222; 99232; 99239; G0180 ==

== ENCOUNTER → 2023-10-14 08:31 | Outpatient (BNV) | payer MEDICARE, MEDICAID, SELFPAY | PROVIDERS: Admitting Provider Family Medicine; Emergency Provider Internal Medicine; PCP Nurse Practitioner Family; Visit Provider Internal Medicine | DX: I48.91 Unspecified atrial fibrillation (principal); I35.8 Other nonrheumatic aortic valve disorders | CPT/HCPCS: 93306; 99222; 99233 ==

== ENCOUNTER 2023-10-26 13:39 | Inpatient (IN) | payer MEDICARE, MEDICAID, SELFPAY ==
--- NOTE | ~2023-10-26 | CT_ITS ---
EXAMINATION: CT ABDOMEN AND PELVIS WITH CONTRAST CLINICAL INFORMATION: Right-sided abdominal pain and tenderness COMPARISON: Chest radiograph earlier today, CT angiogram chest 10/07/2023, CT abdomen pelvis 04/12/2023 CT guided lung biopsy 08/26/2023, abdominal ultrasound 07/12/2023. TECHNIQUE: Multidetector volumetric images were obtained from the superior aspect of the liver through the pubic symphysis following administration 85 mL of Omnipaque 350 intravenous contrast. Sagittal and coronal reformatted images were obtained on the technologist's workstation. Oral contrast: No This CT examination was performed using dose optimization techniques as appropriate, variously including the following: *Automated exposure control *Adjustment of mA and/or kV according to patient size (this includes techniques or standardized protocols for targeted exams where dose is matched to indication/reason for exam; i.e. extremities or head) *Use of iterative reconstruction technique DLP: 259 mGy-cm FINDINGS: LUNG BASES: Large lung mass at the right lung base along with right-sided pleural effusion and bronchiectasis in collapsed lung. Underlying changes of COPD are present. Large calcified granuloma left lung base again noted LIVER, GALLBLADDER, AND BILIARY TREE: The liver is normal in size, shape, and attenuation. No focal hepatic lesion or biliary ductal dilatation is present. The gallbladder contains a dependent 1.5 cm hyperdensity which could represent a sludge ball or a noncalcified gallstone. No gallstones were seen on the 07/12/2023 ultrasound exam. The gallbladder is otherwise unremarkable with no evidence of pericholecystic inflammatory changes. PANCREAS: Unremarkable. SPLEEN: Unremarkable. ADRENAL GLANDS: Unremarkable. KIDNEYS AND URETERS: The kidneys are normal in size, shape, and attenuation. No hydronephrosis, hydroureter, or calculi seen. No perinephric stranding. BLADDER: Layering high density bladder which I suspect represents small stones. Similar findings were present on the 04/12/2023 CT scan. GASTROINTESTINAL TRACT: Again seen are diverticular changes in the sigmoid without diverticulitis and a moderate stool burden throughout the colon. The small and large bowel are otherwise unremarkable. The appendix is not seen but there is no evidence of appendicitis. ABDOMINAL WALL: No significant hernia is appreciated. LYMPH NODES: No retroperitoneal lymphadenopathy. Large calcified node is seen in the left groin. VASCULAR: Calcific atherosclerotic changes are present in the aorta and iliofemoral vessels. There is no evidence of an abdominal aortic aneurysm. PELVIC VISCERA: Mild BPH. Seminal vesicles appear normal. Multiple areas of calcification are seen in the tunica albuginea which can be associated with Peyronie's disease. OSSEOUS STRUCTURES: Mild scoliosis convex to left. Mild degenerative changes are seen most prominent at L2-L3 and L3-L4 CT/CT abdomen pelvis w IV con IMPRESSION: 1. A cause for the patient's right-sided abdominal pain and tenderness has not been found. 2. Large right lung mass with right-sided pleural effusion and bronchiectasis in collapsed lung. 3. Calcified granuloma left lung base. 4. Possible Cholelithiasis without cholecystitis. Ultrasound could be performed for further evaluation if clinically indicated. 5. Colonic diverticulosis without diverticulitis. 6. Mild BPH. 7. Other incidental findings as described above. Fleischner guidelines were followed.
--- NOTE | ~2023-10-26 | XR_ITS ---
EXAMINATION: XR CHEST CLINICAL INFORMATION: Dyspnea on exertion COMPARISON: Chest radiograph 10/13/2023 CT angiogram chest 10/07/2023 TECHNIQUE: 2 views of the chest were obtained. FINDINGS: When comparison is made to the prior study from 10/13/2023, there is been no significant interval change. Once again noted are multiple pleural-based masses in the right lung with 2 large masses medially and one mass seen bilaterally. Calcified pleural plaque is seen. A small right pleural effusion remains present. Heart size is normal. No evidence of CHF. Calcified left lower lobe pulmonary granuloma again noted. XR/XR chest 2V IMPRESSION: No acute intrathoracic disease. Multiple pleural-based masses in the right lung with small right pleural effusion all appear unchanged.
[2023-10-26 13:57] VITALS: BP 122/74; BP 148/60; PULSE 76; PULSE 88; RESP 18; TEMP 37; O2SAT 96; O2SAT 98; BMI 15.5
--- NOTE | 2023-10-26 14:13 | ECG_ITS ---
Test Reason : ABD PAIN Blood Pressure : / mmHG Vent. Rate : 073 BPM Atrial Rate : 073 BPM P-R Int : 116 ms QRS Dur : 086 ms QT Int : 434 ms P-R-T Axes : 065 064 058 degrees QTc Int : 478 ms Normal sinus rhythm Nonspecific ST abnormality Abnormal ECG When compared with ECG of 14-OCT-2023 08:04, Premature ventricular complexes are no longer Present Premature atrial complexes are no longer Present Vent. rate has decreased BY 50 BPM Referred By: Mikhail Espinoza Electronically Signed By:EMILEE DO MD
--- NOTE | 2023-10-26 14:29 | ED.GENADULT ---
HPI - General Adult General Chief complaint: Abdominal Pain Stated complaint: ASTHMA EX, INCREASED WOB, ABD PAIN Time Seen by Provider: 10/26/23 13:50 History of Present Illness HPI narrative: Patient is 77-year-old male. Apparently has a history of lung cancer but has declined any treatment. He is therefore not receiving any surgery or chemotherapy or other treatments for his lung cancer. He lives at home with his . He has also declined hospice to this point. He has had chronic pains on his right side which have been attributed to his lung cancer. He was recently hospitalized about 10 days ago for a first-time episode of atrial fibrillation with rapid ventricular response. While in the hospital he was started on diltiazem and amiodarone. He converted to a sinus rhythm. At discharge from the hospital on October 17 he was prescribed diltiazem, amiodarone, and apixaban in addition to doxycycline and prednisone for question of a COPD exacerbation. According to the discharge summary was prescribed hydromorphone for pain which was supposed to supplemental replace tramadol that he had been taking previously. However according to his they never got the prescription for the hydromorphone and he has been running out of tramadol. Over the last 24 hours the patient has had worsening right-sided pain. He has also had a cough and shortness of breath. A visiting nurse arrived at the house today and thought he looked quite short of breath and she recommended today: Ambulance and come to the hospital. The patient has a history of lung cancer for which she has not been receiving treatment. His oncologist is Dr. Moran. Apparently the patient was not interested in chemotherapy. More recently the patient was offered immunotherapy as a possible treatment. However his hospitalization approximately 10 days ago interrupted his plan to discuss this further with his oncologist and therefore there is no current treatment plan in action. Related Data Home Medications Medication Instructions Recorded Confirmed omeprazole 20 mg capsule,delayed 20 mg PO DAILY@0630 12/01/20 10/26/23 release multivitamin with folic acid 400 1 tab PO DAILY 08/28/22 10/26/23 mcg tablet (Daily-Leslie (with folic acid)) levothyroxine 88 mcg tablet 88 mcg PO DAILY@0600 06/17/23 10/26/23 acetaminophen 325 mg tablet 650 mg PO Q6H PRN Pain 06/18/23 10/26/23 (Tylenol) topiramate 50 mg tablet 50 mg PO DAILY 06/18/23 10/26/23 ipratropium 0.5 mg-albuterol 3 mg 3 ml inhalation QID PRN wheezing 07/02/23 10/26/23 (2.5 mg base)/3 mL nebulization soln topiramate 50 mg tablet 100 mg PO BEDTIME 07/02/23 10/26/23 ibandronate 150 mg tablet 150 mg PO QMONTH 08/15/23 10/26/23 testosterone cypionate 200 mg/mL 100 mg IM Q2W 08/15/23 10/26/23 intramuscular oil cholecalciferol (vitamin D3) 25 25 mcg PO DAILY 09/13/23 10/26/23 mcg (1,000 unit) tablet duloxetine 30 mg capsule,delayed 30 mg PO DAILY 09/13/23 10/26/23 release fluticasone fur. 200 mcg-umeclid 1 inh inhalation DAILY 09/13/23 10/26/23 62.5 mcg-vilant 25 mcg inhalat.powder (Trelegy Ellipta) metformin 500 mg tablet 500 mg PO DAILY 09/13/23 10/26/23 mirtazapine 7.5 mg tablet 7.5 mg PO BEDTIME 09/13/23 10/26/23 pyridoxine (vitamin B6) 50 mg 50 mg PO DAILY 09/13/23 10/26/23 tablet Previous Rx's Medication Instructions Recorded albuterol sulfate 90 mcg/actuation 2 inh inhalation Q4-6H PRN 12/01/22 breath activated powder inhaler shortness of breath or wheezing #1 ea lidocaine 5 % topical patch 1 patch topical DAILY PRN pain #15 10/07/23 ea amiodarone 200 mg tablet 200 mg PO BID #82 tabs 10/15/23 apixaban 5 mg tablet (Eliquis) 5 mg PO BID 30 days #60 tabs 10/15/23 diltiazem HCl 120 mg 120 mg PO DAILY 30 days #30 caps 10/15/23 capsule,extended release 24 hr (Cardizem CD) theophylline 300 mg 300 mg PO DAILY 30 days #30 caps 10/15/23 capsule,extended release 24 hr Allergies Allergy/AdvReac Type Severity Reaction Status Date / Time pollen extracts [POLLEN] Allergy Intermediate RUNNING Verified 10/04/23 09:59 NOSE, WATERY EYES, SNEEZING varenicline [VARENICLINE] AdvReac Unknown PALPITATION Verified 10/04/23 09:59 S Review of Systems Review of Systems: Yes all other systems are reviewed and are negative [facility] Past Medical History Medical History Acute exacerbation of chronic obstructive pulmonary disease Abnormal PET scan of colon Tobacco dependence Chronic respiratory failure Sepsis Osteoporosis COPD (chronic obstructive pulmonary disease) Ureteral calculi Hypertension Hypothyroidism GERD (gastroesophageal reflux disease) Osteoarthritis Oxygen dependent Diabetes Asthma Surgical History History of lithotripsy (~2008) History of cataract surgery (~2011) History of lung biopsy (~2021) History of appendectomy Family History Family History Father Throat cancer Brother Lung cancer Other Hypertension Social History Social History Household Members: Spouse Household Members Other:: 1 Housing: Apartment Are you a primary home care consultant to a significant other at home: No Do you presently have visiting nurse or other home services: No Alcohol intake: former Comment: pt. refusing bed and chair alarms Patient Tobacco Use Status: Never used Tobacco Tobacco use type: Cigarette Cigarette Packs Per Day: 0.5 Cigarettes Per Day: 10.0 Years Smoked: 62 Smoked in Last 30 Days: No e-Cigarette/Vaping Use: Currently Using Second Hand Smoke Exposure: No Use of substances other than those prescribed or required for medical reasons: No Advance Directives: Yes Advance Directives Information Provided: Yes Advance Directives on File: No Advance Directives Date on File: 12/18/20 Nutrition Risks: No Nutritional Risk service: No Current occupational status: unemployed and retired Physical Exam ED Vital Signs: Vital Signs - 24 hr 10/26/23 13:57 10/26/23 19:05 Temperature 98.6 F Pulse Rate 76 69 Respiratory Rate 18 18 Blood Pressure 148/60 H 131/54 L Pulse Oximetry 96 96 Oxygen Delivery Method Room Air Room Air BMI result Body Mass Index 15.5 Const Other: The patient is a frail, cachectic 77-year-old seemed uncomfortable and was coughing occasionally. HENMT Other: Airway was clear. Mucous membranes not obviously dry. Eyes Other: Pupils round equal, extraocular intact, conjunctivae clear Neck Other: No cervical adenopathy, neck is supple Resp Other: Slight wheezes bilaterally. No increased work of breathing. Cardio Other: Patient had a regular rate rhythm without murmur GI Other: There was right upper quadrant tenderness and mild guarding. Left side of the abdomen and the lower abdomen or benign. Skin Other: Skin is warm dry Neuro Other: Patient was awake and alert. Speech is clear. Face was symmetrical. He moves extremities symmetrically. He seems grossly neurologically intact Extrem Other: No peripheral edema. Extremities are somewhat wasted. Medications Administered Generic Name Dose Route Start Last Admin Trade Name Freq PRN Reason Stop Dose Admin Apixaban 5 mg 10/26/23 21:15 10/26/23 21:33 Apixaban 5 Mg Tablet PO 5 mg BID MEHDI Administration Azithromycin 500 mg/ Sodium 250 mls @ 125 mls/hr 10/26/23 21:00 10/26/23 20:52 Chloride IV 125 mls/hr Q24H MEHDI Administration Methylprednisolone Sodium Succinate 40 mg 10/26/23 20:15 10/26/23 20:42 Methylprednisolone Sod Succ 40 Mg/Ml Vial IVPUSH 40 mg Q12H MEHDI Administration Topiramate 100 mg 10/26/23 21:15 10/26/23 21:33 Topiramate 25 Mg Tablet PO 100 mg BEDTIME MEHDI Administration Discontinued Medications Generic Name Dose Route Start Last Admin Trade Name Freq PRN Reason Stop Dose Admin Hydromorphone HCl 1 mg 10/26/23 15:37 10/26/23 16:13 Hydromorphone Hcl 1 Mg/Ml Syringe IM 10/26/23 15:38 1 mg ONCE ONE Administration Protocol Sodium Chloride 1,000 mls @ 999 mls/hr 10/26/23 15:45 10/26/23 17:28 Ns IV 10/26/23 16:45 Infused .Q1H1M MEHDI Infusion Ceftriaxone Sodium 1 gm/ 50 mls @ 100 mls/hr 10/26/23 19:19 10/26/23 20:18 Sodium Chloride IV 10/26/23 19:48 Infused ONCE ONE Infusion Iohexol 100 ml 10/26/23 16:42 10/26/23 16:42 Iohexol 350 Mg/Ml 100 Ml Infus..Btl IV 10/26/23 16:43 85 ml ONCE ONE Administration Medical Decision Making Medical Decision Making MDM Narrative: Patient is a 77-year-old male with significant lung cancer with a large tumor in the right lung. He has been cared for at home by his . The last 24 hours he has been more short of breath and has had a and has had worsening pain in the right upper abdomen. He looked quite uncomfortable on arrival. He looks quite frail. Chest x-ray showed patient's large right-sided lung masses as well as new pleural effusion. [place] [address] abdomen and pelvis showed at the lung bases a large lung mass at the right lung base right-sided pleural effusion and bronchiectasis in a collapsed lung. No intra-abdominal pathology. Given the history of a new cough and new rising the patient's white count and given his worsening pain I have some concerns the patient might have something like a postobstructive pneumonia as result of his lung tumor. He is not septic. His lactate is normal. His pain was managed with IV hydromorphone. Given his degree of discomfort and given his comorbidities and general frailty I felt that hospitalization with a presumed diagnosis of a postobstructive pneumonia was reasonable. He was started on IV antibiotics. He will be admitted to the hospitalist service. Lab Data 10/26/23 14:44 10/26/23 14:44 Labs: Lab Results 10/26/23 10/26/23 10/26/23 Range/Units 14:44 16:58 18:26 WBC 20.5 H (4.8-10.8) X10*3/uL RBC 4.46 L (4.60-5.80) X10*6/uL Hgb 10.0 L (14.0-18.0) g/dl Hct 33.9 L (42.0-52.0) % MCV 76.0 L (80.0-98.0) fL MCH 22.4 L (27.0-33.0) pg MCHC 29.5 L (31.0-36.0) g/dl RDW 19.7 H (11.0-16.0) % Plt Count 576 H (160-400) X10*3/uL MPV 8.9 L (9.4-12.4) fL Immature Gran % (Auto) 1.2 H (0.0-0.4) % Neut % (Auto) 95.5 H (45-73) % Lymph % (Auto) 1.8 L (20-40) % Grundy % (Auto) 1.4 L (2-11) % Eos % (Auto) 0.0 (0-4) % Baso % (Auto) 0.1 (0-2) % Lymph # (Auto) 0.4 L (1.2-4.9) X10*3/uL Grundy # (Auto) 0.3 (0.1-1.2) X10*3/uL Eos # (Auto) 0.0 (0.0-0.4) X10*3/uL Baso # (Auto) 0.0 (0.0-0.2) X10*3/uL Abs Immat Gran (auto) 0.25 H (0.00-0.03) X10*3/uL Absolute Neuts (auto) 19.6 H (2.0-8.3) x10*3/uL Absolute Nucleated RBC 0.000 (0.0-0.012) X10*3/uL Nucleated RBC % (auto) 0.0 (0.0-0.2) /100WBC Smear Tech's Comments VERIFIED Sodium 139 (135-145) mmol/L Potassium 3.8 (3.3-5.1) mmol/L Chloride 100 (96-108) mmol/L Carbon Dioxide 30 H (22-29) mmol/L Anion Gap 13 (12-20) BUN 11 (9-16) mg/dL Creatinine 0.77 (0.5-1.4) mg/dL Estim Creat Clear Calc 51.0 Estimated GFR > 60 Random Glucose 146 H (60-115) mg/dL Lactic Acid 1.2 (0.5-2.0) mmol/L Calcium 9.5 (8.4-10.2) mg/dL Magnesium 2.0 (1.6-2.6) mg/dL Total Bilirubin 0.2 (0.0-1.0) mg/dL Direct Bilirubin < 0.2 (0.0-0.5) mg/dL AST 26 (5-37) U/L ALT 8 (0-40) U/L Alkaline Phosphatase 111 (39-117) U/L C-Reactive Protein 7.93 H (< or = 0.50) mg/dL B-Natriuretic Peptide 26 (<100) pg/mL Total Protein 6.3 L (6.5-8.0) g/dL Albumin 3.1 L (3.5-5.0) g/dL Lipase 12 (8-78) U/L Urine Color Yellow Urine Appearance Clear Urine pH 7.5 (5.0-9.0) Ur Specific Altha 1.020 (1.005-1.025) Urine Protein Negative (Neg-Trace) mg/dL Urine Glucose (UA) Negative (Negative) mg/dL Urine Ketones Negative (Negative) mg/dL Urine Blood Negative (Negative) Urine Nitrite Negative (Negative) Ur Leukocyte Esterase Negative (Negative) Discharge Plan Discharge Clinical Impression: Pneumonia, Lung cancer Patient Disposition: Admitted As Inpatient
--- OUTSIDE RECORDS SUMMARY | 2023-10-26 14:32 | XMS_ITS | Continuity of Care Document ---
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 Name Role Phone Kayla Chaney MD Primary Care Physician Encounter [facility] Date(s): 09/24/23 - 10/24/23 [facility] [address] [place] [phone]- Allergies, Adverse Reactions, Alerts Substance Reaction Severity [...] Status Refusal Reason influenza virus vaccine, inactivated 08/15/23 Ben rded influenza virus vaccine, inactivated 08/29/22 Ben rded [...] virus vaccine, inactivated 4 08/29/10 Gi susie [id number] 12y+ bivalent booster vax 11/17/22 Given [id number] 12y+ bivalent booster vax 10/16/22 Given SARS-CoV-2 (COVID-19) mRNA BNT-162b2 vac 10/29/21 Given [...] (oldterm) 12 10/08/06 Given 1Result Comment: [09/24/2017] [facility] [id number] 2Admin Note: VIS 7- 3Admin Note: VIS given 06/23/11, bahamian form 4Admin Note: VIS GIVEN 07/08/10 bahamian 5Result Comment: [04/02/2016] VIS in Turkmen given 6Admin Note: sep 06 7Admin Note: vis given in Turkmen 8Admin Note: VIS given in Turkmen 9Admin Note: VIS IN ITALIAN 10Admin Note: VIS in bahamian 11Admin Note: VIS-GIVEN 12Admin Note: VIS-GIVEN Medications albuterol CFC free 90 mcg/inh inhalation aerosol 1, puffs, Inhalation, 4 times a day, PRN, dx: J45.909, # 1 each, Refills 11, Tot. Refills 11, Maintenance, 03/15/23 9:26:00 EDT, Aerosol, Route to Pharmacy Electronically, [id number], [facility]/pharmacy #[id number], 158.3, cm, 03/15/23 9... Start Date: 03/15/23 Status: Ordered albuterol-ipratropium 3 mg-0.5 mg/3 ml inhalation solution 1 vials, Inhalation, 4 times a day, Dx: COPD J44.9, Asthma J45.998, Lung Cancer C34.00 Sig: use every 6hr as needed for cough, SOB, wheezing, # 100 each, 11 Refills, 10/16/22 16:16:00 EST, [facility]/pharmacy #[id number], 1 vials Inhalation 4 times a day,Instr:Dx... Start Date: 10/16/22 Status: Ordered apixaban 5 mg oral tablet 1 tablet = 5 mg, By Mouth, 2 times a day, ??? dose, 0 Refills, Maintenance, 10/14/23 21:08:00 EST, Partial fill upon patient request if the prescription is for a schedule II opioid drug. Start Date: 10/14/23 Status: Ordered calcium (as citrate)-vitamin D 315 mg-250 intl units oral tablet 1 tablet, By Mouth, 2 times a day, # 180 tablet, 6 Refills, Maintenance, 07/15/23 19:14:00 EDT, Tablet, [facility]/pharmacy #[id number], Partial fill upon patient request if the prescription is for a schedule II opioid drug., 1 tablet By Mouth 2 times a day, 158.3... Start Date: 07/15/23 Status: Ordered Daily Leslie oral tablet See Instructions, ANJELE NAZ TABLETA TODOS LOS BENITEZ, # 90 tablet, 1 Refills, Maintenance, 08/30/23 11:40:00 EDT, [id number], 90, TOME NAZ TABLETA TODOS LOS BENITEZ, 158.3, cm, 08/09/23 11:09:00 EDT, Height Start Date: 08/30/23 Status: Ordered diclofenac 1% topical gel 1 application, Topically, 4 times a day, # 100 Gm, 0 Refills, Maintenance, 06/24/23 12:02:00 EDT, Gel, [facility]/pharmacy #[id number], Partial fill upon patient request if the prescription is for a schedule II opioid drug., 158.3, cm, 05/19/23 14:14:00 EDT, Height Start Date: 06/24/23 Status: Ordered duloxetine 30 mg oral enteric coated capsule 1 capsule = 30 mg, By Mouth, Daily, # 90 capsule, 3 Refills, 08/09/23 11:49:00 EDT, [facility]/pharmacy #[id number], 158.3, cm, 08/09/23 11:09:00 EDT, Height Start Date: 08/09/23 Status: Ordered Freestyle Lancets See Instructions, # 600 each, Refills 2, Tot. Refills 2, Maintenance, use as directed 1 x daily forType 2 Diabetes Mellitus E11.9, 10/05/23 12:59:00 EST, Supply, 158.3, cm, 10/05/23 12:14:00 EST, Height Start Date: 10/05/23 Stop Date: 07/01/24 Status: Ordered Freestyle Lite Monitor See Instructions, # 1 each, Refills 0, Tot. Refills 0, Maintenance, use as directed for Type 2 Diabetes Mellitus E11.9, 10/05/23 12:59:00 EST, Supply, 158.3, cm, 10/05/23 12:14:00 EST, Height Start Date: 10/05/23 Stop Date: 11/04/23 Status: Ordered FREESTYLE LITE TEST STRIP FREESTYLE LITE TEST STRIP, See Instructions, # 100 Unknown, 10 Refills, USE TO CHECK BLOOD GLUCOSE 2 TIMES A DAY, 160, cm, 04/29/22 11:20:00 EDT, Height Start Date: 05/27/22 Status: Ordered Freestyle Test Strips See Instructions, # 600 each, Refills 2, Tot. Refills 2, Maintenance, use as directed 1 x daily forType 2 Diabetes Mellitus E11.9, 10/05/23 12:59:00 EST, Supply, 158.3, cm, 10/05/23 12:14:00 EST, Height Start Date: 10/05/23 Stop Date: 07/01/24 Status: Ordered ibandronate 150 mg oral tablet 1 tablet = 150 mg, By Mouth, Every 30 days, Swallow whole w/6-8oz water 1HR before first food, drink, med-Do not lie down for 1HR & until after first food, # 3 tablet, 2 Refills, Maintenance, 07/15/23 14:00:00 EDT, Tablet, [facility]/pharmacy #[id number], Partial... Start Date: 07/15/23 Status: Ordered levothyroxine 0.088 mg oral tablet 1 tablet = 88 mcg, By Mouth, Daily, # 90 tablet, 1 Refills, Maintenance, 10/12/23 10:26:00 EST, Tablet, [facility]/pharmacy #[id number], Partial fill upon patient request if the prescription is for a schedule II opioid drug. Dose reduction February 2023, 158.3, cm, 1... Start Date: 10/12/23 Status: Ordered lidocaine 5% topical film 1 patch, Topically, Daily, PRN Pain , Mild, remove after 12 hours, # 13 each, 11 Refills, Maintenance, 07/01/23 11:12:00 EDT, Film, [facility]/pharmacy #207, Partial fill upon patient request if the prescription is for a schedule II opioid drug. For Cancer... Start Date: 07/01/23 Status: Ordered metFORMIN 500 mg oral tablet See Instructions, TOME NAZ TABLETA POR VIA ORAL TODOS LOS BENITEZ CON LAS COMIDAS, # 90 tablet, 0 Refills, Maintenance, 08/30/23 11:40:00 EDT, [id number], 158.3, cm, 08/09/23 11:09:00 EDT, Height Start Date: 08/30/23 Status: Ordered mirtazapine 7.5 mg oral tablet See Instructions, TOME NAZ TABLETA POR VIA ORAL AL ACOSTARSE, # 90 tablet, 3 Refills, 06/24/23 13:24:00 EDT, [facility]/pharmacy #[id number], 158.3, cm, 05/19/23 14:14:00 EDT, Height Start Date: 06/24/23 Status: Ordered nabumetone 500 mg oral tablet See Instructions, TOME NAZ TABLETA POR VIA ORAL DOS VECES AL YAEL CUANDO SEA NECESARIO POR DOLOR, # 60 tablet, 1 Refills, Maintenance, 06/23/23 8:44:00 EDT, [facility]/pharmacy #[id number], 158.3, cm, 05/19/23 14:14:00 EDT, Height Start Date: 06/23/23 Status: Ordered nicotine 14 mg/24 hr transdermal film, extended release 1 patch, Topically, Daily, for 30 days, # 30 patch, 1 Refills, Acute 12/29/23 13:54:00 EST, 09/27/23 13:54:00 EDT, Patch, [id number], Partial fill upon patient request if the prescription is for a schedule II opioid drug., 1 patch Topically Da... Start Date: 09/27/23 Stop Date: 11/26/23 Status: Ordered omeprazole 20 mg oral enteric coated capsule See Instructions, TOME NAZ CAPSULA SORIN BENITEZ, # 90 capsule, [...] each, 3 Refills, Maintenance, 06/24/2311:55:00 EDT, Powder, [facility]/pharmacy #[id number], Partial fill upon patient [...] Status Informant Asthma 1 Confirmed 01/23/09 Active Atrial fibrillation ( Lottie, with Rapid ventricular response, started Eliquis) Confirmed Active Cataract Confirmed Active Cervical arthritis 2, 3 Confirmed Active Colonoscopy 4 Confirmed 06/02/07 Active COPD - Chronic obstructive pulmonary disease 5 Confirmed Active Diabetes Mellitus Confirmed 2011 Active Diverticulosis 6 Confirmed 05/2012 Active Anticoagulated for atrial fibrillation 7 Confirmed Active Granuloma 8, 9 Confirmed 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 Hearing loss Confirmed Active Heartburn Confirmed Active Hemorrhoid 10 Confirmed 2011 Active H/O colonoscopy 11, 12 Confirmed 06/14/12 Active Hydronephrosis 13, 14 Confirmed 01/18/09 Active Hyperlipidemia Confirmed 04/2010 Active Hypothyroidism Confirmed Active Insomnia Confirmed Active Kidney stone 15, 16 Confirmed 01/18/09 Active DJD (degenerative joint disease), lumbar Confirmed Active Lung nodule Confirmed Active Hypogonadism male Confirmed Active Microalbuminuria 17 Confirmed 01/03/19 Active Multiple lung nodules on CT 18, 19 Confirmed 09/13/18 Active Non-small cell lung cancer 20 Confirmed 06/07/22 Active Osteoarthritis of ankle 21 Confirmed 06/2008 Active Osteoarthritis of knee 22 Confirmed 12/2009 Active Osteoporosis 23 Confirmed 2011 Active Cancer related pain Confirmed Active End of life care: delcined palliative and Hospice at [facility] stay Confirmed Active 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 Active Smoker Confirmed Active Lumbar stenosis - L4 nerve root stenosis 2012 MR1 25, 26 Confirmed Active Thrush Confirmed Active Tobacco abuse Confirmed 1960 Active Tubular adenoma of colon >1cm , fair prep , next due per scanned report by Melany 27 Confirmed 05/20/22 Active Underweight Confirmed Active 1positive bronchial challenge 01-07 2x-ray 2013 stable, persistent 01232 x-ray, mild 4repeat 5 years 5Severe emphysema per pulmo note 6/20/13 6per -2011 colonoscopy 7 fall 2022/ scanned note 8PPD negative 04-26-08 9lung (lateral basal segment of the left lower lobe), per CT 01-18-2009 done at [facility] 10internal and external per 2011 colonoscopy 11(assuming no family history) 12per 2011 report, repeat due 10 years (due 2021) 13urology consult written today 14per CT from [facility], associated with ureteral stone. mild left hydronephrosis 15Repeat stone Oct 2021, seeing urology 16per CT from [facility] , ER was notified 17not starting meds due to polypharmacy and comorbidities 18Followed by Pulm in [place], stability on repeat CT Chest Sep 2020 per their note 19New 10mm nodule LUNG-RADS 4B 09/20/19 20Followed by [place] [facility] 2007 x-ray 2009 x-ray [id number] DEXA: T-score lowest -3.7 24Rash developed 07/06/13 25Correction: MRI 08/02/13 26Per MRI 08/02/14 27of colon >1cm , fair prep -2021, next due -2024 per scanned report by [place] Social History Social History Type Response Smoking Status Former smoker; Other : per pt; entered on: 04/21/18 Sex Male Patient Care team information Care Team Personnel Name: Kayla Chaney MD Position: S Physician - Primary Care Member Role: PCP Address: Address: [address] [place] [id number]- Care Team Related Persons Name: STEVE LOPEZ Address: home [address] [place] [address] Name: MERLY ROBERSON Address: home [address] [place] [address] Name: MORALES MUELLER JR
--- OUTSIDE RECORDS SUMMARY | 2023-10-26 14:34 | XMS_ITS | Continuity of Care Document ---
Author Name Unknown Organization [facility] Address [address] [place] [address]- Care Team Providers Care Real Time Trader Name Role Phone Kayla Chaney MD Primary Care Physician [facility]23 - 10/20/23 [facility] [address] [place] [phone]- Allergies, Adverse Reactions, Alerts Substance Reaction Severity [...] virus vaccine, inactivated 4 08/29/10 Gi susie [id number] 12y+ bivalent booster vax 11/17/22 Given [id number] 12y+ bivalent booster vax 10/16/22 Given SARS-CoV-2 [...] 12 10/08/06 Given 1Result Comment: [09/24/2017] [facility] [id number] 2Admin Note: VIS 7- 3Admin Note: VIS given 06/23/11, guamanian form 4Admin Note: VIS GIVEN 07/08/10 guamanian 5Result Comment: [04/02/2016] VIS in Estonian given 6Admin Note: sep 06 7Admin Note: vis given in Estonian 8Admin Note: VIS given in Estonian 9Admin Note: VIS IN ITALIAN 10Admin Note: VIS in guamanian 11Admin Note: VIS-GIVEN 12Admin Note: VIS-GIVEN Medications albuterol CFC free 90 mcg/inh inhalation aerosol 1, puffs, Inhalation, 4 times a day, PRN, dx: J45.909, # 1 each, Refills 11, Tot. Refills 11, Maintenance, 03/15/23 9:26:00 EDT, Aerosol, Route to Pharmacy Electronically, [id number], [facility]/pharmacy #[id number], 158.3, cm, 03/15/23 9... Start Date: 03/15/23 Status: Ordered albuterol-ipratropium 3 mg-0.5 mg/3 ml inhalation solution 1 vials, Inhalation, 4 times a day, Dx: COPD J44.9, Asthma J45.998, Lung Cancer C34.00 Sig: use every 6hr as needed for cough, SOB, wheezing, # 100 each, 11 Refills, 10/16/22 16:16:00 EST, [facility]/pharmacy #[id number], 1 vials Inhalation 4 times [...] 6 Refills, Maintenance, 07/15/23 19:14:00 EDT, Tablet, [facility]/pharmacy #[id number], Partial fill upon patient request if the prescription is for a schedule II opioid drug., 1 tablet By Mouth 2 times a day, 158.3... Start Date: 07/15/23 Status: Ordered Daily Leslie oral tablet See Instructions, ANJELE NAZ TABLETA TODOS LOS BENITEZ, # 90 tablet, 1 Refills, Maintenance, 08/30/23 11:40:00 EDT, [facility], 90, TOME NAZ TABLETA TODOS [place] BENITEZ, 158.3, cm, 08/09/23 11:09:00 EDT, Height Start Date: 08/30/23 Status: Ordered diclofenac 1% topical gel 1 application, Topically, 4 times a day, # 100 Gm, 0 Refills, Maintenance, 06/24/23 12:02:00 EDT, Gel, [facility]/pharmacy #[id number], Partial fill upon patient request if the prescription is for a schedule II opioid drug., 158.3, cm, 05/19/23 14:14:00 EDT, Height Start Date: 06/24/23 Status: Ordered duloxetine 30 mg oral enteric coated capsule 1 capsule = 30 mg, By Mouth, Daily, # 90 capsule, 3 Refills, 08/09/23 11:49:00 EDT, [facility]/pharmacy #[id number], 158.3, cm, 08/09/23 11:09:00 EDT, Height [...] 2 Refills, Maintenance, 07/15/23 14:00:00 EDT, Tablet, [facility]/pharmacy #[id number], Partial... Start Date: 07/15/23 Status: Ordered levothyroxine 0.088 mg oral tablet 1 tablet = 88 mcg, By Mouth, Daily, # 90 tablet, 1 Refills, Maintenance, 10/12/23 10:26:00 EST, Tablet, [facility]/pharmacy #207, Partial fill upon patient request if the prescription is for a schedule II opioid drug. Dose reduction February 2023, 158.3, cm, 1... Start Date: 10/12/23 Status: Ordered lidocaine 5% topical film 1 patch, Topically, Daily, PRN Pain , Mild, remove after 12 hours, # 13 each, 11 Refills, Maintenance, 07/01/23 11:12:00 EDT, Film, [facility]/pharmacy #207, Partial fill upon patient request if the prescription is for a schedule II opioid drug. For Cancer... Start Date: 07/01/23 Status: Ordered metFORMIN 500 mg oral tablet See Instructions, TOME NAZ TABLETA POR VIA ORAL TODOS LOS BENITEZ CON LAS COMIDAS, # 90 tablet, 0 Refills, Maintenance, 08/30/23 11:40:00 EDT, [facility], 158.3, cm, 08/09/23 11:09:00 EDT, Height Start Date: 08/30/23 Status: Ordered mirtazapine 7.5 mg oral tablet See Instructions, TOME NAZ TABLETA POR VIA ORAL AL ACOSTARSE, # 90 tablet, 3 Refills, 06/24/23 13:24:00 EDT, [facility]/pharmacy #[id number], 158.3, cm, 05/19/23 14:14:00 EDT, Height Start Date: 06/24/23 Status: Ordered nabumetone 500 mg oral tablet See Instructions, TOME NAZ TABLETA POR VIA ORAL DOS VECES AL YAEL CUANDO SEA NECESARIO POR DOLOR, # 60 tablet, 1 Refills, Maintenance, 06/23/23 8:44:00 EDT, [facility]/pharmacy #2070, 158.3, cm, 05/19/23 14:14:00 EDT, Height [...] each, 3 Refills, Maintenance, 06/24/2311:55:00 EDT, Powder, [facility]/pharmacy #[id number], Partial fill upon patient request [...] Confirmed 09/19/13 Active Heartburn Confirmed Active Hemorrhoid 10 Confirmed [...] Cancer related pain Confirmed Active 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 Active Smoker Confirmed Active Lumbar stenosis - L4 nerve root stenosis 2012 MR1 25, 26 Confirmed Active Thrush Confirmed Active Tobacco abuse Confirmed 1960 Active Tubular adenoma of colon >1cm , fair prep , next due per scanned report by Melany 27 Confirmed 05/20/22 Active Underweight Confirmed Active 1positive bronchial challenge 01-07 2x-ray 2013 stable, persistent 02560 x-ray, mild 4repeat 5 years 5Severe emphysema per pulmo note 05/18/13 6per -2011 colonoscopy fall 2022/ scanned note 8PPD negative 04-26-08 9lung (lateral basal segment of the left lower lobe), per CT 01-18-2009 done at [facility] 10internal and external per 2012 colonoscopy 11(assuming no family history) 12per 2011 report, repeat due 10 years (due 2021) 13urology consult written today 14per CT from [facility], associated with ureteral stone. mild left hydronephrosis 15Repeat stone Oct 2021, seeing urology 16per CT from [facility] , ER was notified 17not starting meds due to polypharmacy and comorbidities 18Followed by Pulm in [place], stability on repeat CT Chest Sep 2020 per their note 19New 10mm nodule LUNG-RADS 4B 09/20/19 20Followed by [place] [facility] and Thanh Payne 2007 x-ray 2009 x-ray [id number] DEXA: T-score lowest -3.7 24Rash developed 07/06/13 25Correction: MRI 08/02/13 26Per MRI 08/02/14 27of colon >1cm , fair prep -2021, next due per scanned report by [place] Social History Social History Type Response Smoking Status Former smoker; Other : per pt; entered on: 04/21/18 Sex Male Patient Care team information Care Team Personnel Name: Kayla Chaney MD Position: [facility] Physician - Primary Care Member Role: PCP Address: Address: [address] [place] [address]- Care Team Related Persons Name: STEVE LOPEZ Address: home [address] [place] [address] Name: MERLY ROBERSON Address: home [address] [place] [address] Name: MORALES MUELLER JR
--- OUTSIDE RECORDS SUMMARY | 2023-10-26 14:36 | XMS_ITS | Continuity of Care Document ---
Author Name Unknown Organization [facility] Address [address] [place] [address]- Care Team Providers Care Nursing Informatics Specialist Name Role Phone Kayla Chaney MD Primary Care Physician [facility]23 - 10/24/23 [facility] [address] [place] [phone]- Allergies, Adverse Reactions, Alerts Substance Reaction Severity [...] influenza virus vaccine, inactivated 2 07/18/12 Gi susei influenza virus vaccine, inactivated 3 08/27/11 Gi susie influenza virus vaccine, inactivated 4 08/29/10 Gi susie [id number] 12y+ bivalent booster vax 11/17/22 Given [id number] 12y+ bivalent booster vax 10/16/22 Given SARS-CoV-2 [...] (oldterm) 12 10/08/06 Given 1Result Comment: [09/24/2017] [facility] [id number] 2Admin Note: VIS 7- 3Admin Note: VIS given 06/23/11, italian form 4Admin Note: VIS GIVEN 07/08/10 italian 5Result Comment: [04/02/2016] VIS in Azeri given 6Admin Note: sep 06 7Admin Note: vis given in Azeri 8Admin Note: VIS given in Azeri 9Admin Note: VIS IN HUNGARIAN 10Admin Note: VIS in italian 11Admin Note: VIS-GIVEN 12Admin Note: VIS-GIVEN Medications albuterol CFC free 90 mcg/inh inhalation aerosol 1, puffs, Inhalation, 4 times a day, PRN, dx: J45.909, # 1 each, Refills 11, Tot. Refills 11, Maintenance, 03/15/23 9:26:00 EDT, Aerosol, Route to Pharmacy Electronically, [id number], [facility]/pharmacy #[id number], 158.3, cm, 03/15/23 9... Start [...] Refills, Maintenance, 08/30/23 11:40:00 EDT, [facility], 90, TOME NAZ TABLETA TODOS [place] BENITEZ, [...] 90 capsule, 3 Refills, 08/09/23 11:49:00 EDT, [facility]/pharmacy #[id number], 158.3, cm, 08/09/23 11:09:00 EDT, [...] 2 Refills, Maintenance, 07/15/23 14:00:00 EDT, Tablet, [facility]/pharmacy #2071, Partial... Start Date: 07/15/23 Status: Ordered levothyroxine 0.088 mg oral tablet 1 tablet = 88 mcg, By Mouth, Daily, # 90 tablet, 1 Refills, Maintenance, 10/12/23 10:26:00 EST, Tablet, [facility]/pharmacy #207, Partial fill upon patient request if the prescription is for a schedule II opioid drug. Dose reduction February 2023, 158.3, cm, 1... Start Date: 10/12/23 Status: Ordered lidocaine 5% topical film 1 patch, Topically, Daily, PRN Pain , Mild, remove after 12 hours, # 13 each, 11 Refills, Maintenance, 07/01/23 11:12:00 EDT, Film, [facility]/pharmacy #207, Partial fill upon patient request if the prescription is for a schedule II opioid drug. For Cancer... Start Date: 07/01/23 Status: Ordered metFORMIN 500 mg oral tablet See Instructions, TOME NAZ TABLETA POR VIA ORAL TODOS LOS BENITEZ CON LAS COMIDAS, # 90 tablet, 0 Refills, Maintenance, 08/30/23 11:40:00 EDT, [facility], 158.3, cm, 08/09/23 11:09:00 EDT, Height Start Date: 08/30/23 Status: Ordered mirtazapine 7.5 mg oral tablet See Instructions, TOME NAZ TABLETA POR VIA ORAL AL ACOSTARSE, # 90 tablet, 3 Refills, 06/24/23 13:24:00 EDT, [facility]/pharmacy #2070, 158.3, cm, 05/19/23 14:14:00 EDT, Height Start Date: 06/24/23 Status: Ordered nabumetone 500 mg oral tablet See Instructions, TOME NAZ TABLETA POR VIA ORAL DOS VECES AL YAEL CUANDO SEA NECESARIO POR DOLOR, # 60 tablet, 1 Refills, Maintenance, 06/23/23 8:44:00 EDT, [facility]/pharmacy #207, 158.3, cm, 05/19/23 14:14:00 EDT, Height [...] each, 3 Refills, Maintenance, 06/24/2311:55:00 EDT, Powder, [facility]/pharmacy #2071, [...] 0 Refills, Maintenance, 06/24/23 13:26:00 EDT, Tablet, [facility]/pharmacy #2071, Partial fill [...] life care: delcined palliative and Hospice at [facility] stay Confirmed Active 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 Confirmed [...] bronchial challenge 01-07 2x-ray 2013 stable, persistent 29649 x-ray, mild 4repeat 5 years 5Severe emphysema per pulmo note 05/18/13 6per -2011 colonoscopy 7 fall 2022/ scanned note 8PPD negative 04-26-08 9lung (lateral basal segment of the left lower lobe), per CT 01-18-2009 done at [facility] 10internal and external per 2011 colonoscopy 11(assuming no family history) 12per 2011 report, repeat due 10 years (due 2021) 13urology consult written today 14per CT from [facility], associated with ureteral stone. mild left hydronephrosis 15Repeat stone Oct 2021, seeing urology 16per CT from [facility] , ER was notified 17not starting meds due to polypharmacy and comorbidities 18Followed by Pulm in [place], stability on repeat CT Chest Sep 2020 per their note 19New 10mm nodule LUNG-RADS 4B 09/20/19 20Followed by [place] [facility] [place] 2007 x-ray 2009 x-ray [id number] DEXA: T-score lowest -3.7 24Rash developed 07/06/13 25Correction: MRI 08/02/13 26Per MRI 08/02/14 27of colon >1cm , fair prep -2021, next due per scanned report by [place] Social History Social History Type Response Smoking Status Former smoker; Other : per pt; entered on: 04/21/18 Sex Male Patient Care team information Care Team Personnel Name: Kayla Chaney MD Position: S Physician - Primary Care Member Role: PCP Address: Address: [address] [place] [address]- Care Team Related Persons Name: STEVE LOPEZ Address: home [address] [place] [address] Name: MERLY ROBERSON Address: home [address] [place] [address] Name: MORALES MUELLER JR
--- OUTSIDE RECORDS SUMMARY | 2023-10-26 14:36 | XMS_ITS | Continuity of Care Document ---
Author Name Unknown Organization [facility] Address [address] [place] [address]- Care Team Providers Care Ell Tutor Name Role Phone Kayla Chaney MD Primary Care Physician [facility]): 09[facility]24[facility]23 - 10/24/23 [facility] [address] [place] [phone]- Allergies, Adverse Reactions, Alerts Substance Reaction Severity [...] virus vaccine, inactivated 4 08/29/10 Gi susie [id number] 12y+ bivalent booster vax 11/17/22 Given [id number] 12y+ bivalent booster vax 10/16/22 Given SARS-CoV-2 [...] (oldterm) 12 10/08/06 Given 1Result Comment: [09/24/2017] [facility] [id number] 2Admin Note: VIS 7- 3Admin Note: VIS given 06/23/11, citizen of [place] form 4Admin Note: VIS GIVEN 07/08/10 citizen [place] 5Result Comment: [04/02/2016] VIS in Urdu given 6Admin Note: sep 06 7Admin Note: vis given in Urdu 8Admin Note: VIS given in Urdu 9Admin Note: VIS IN GERMAN 10Admin Note: VIS in citizen of [place] 11Admin Note: VIS-GIVEN 12Admin Note: VIS-GIVEN Medications albuterol CFC free 90 mcg/inh inhalation aerosol 1, puffs, Inhalation, 4 times a day, PRN, dx: J45.909, # 1 each, Refills 11, Tot. Refills 11, Maintenance, 03/15/23 9:26:00 EDT, Aerosol, Route to Pharmacy Electronically, [id number], [facility]/pharmacy #[id number], 158.3, cm, 03/15/23 9... Start Date: 03/15/23 Status: Ordered albuterol-ipratropium 3 mg-0.5 mg/3 ml inhalation solution 1 vials, Inhalation, 4 times a day, Dx: COPD J44.9, Asthma J45.998, Lung Cancer C34.00 Sig: use every 6hr as needed for cough, SOB, wheezing, # 100 each, 11 Refills, 10/16/22 16:16:00 EST, [facility]/pharmacy #2071, 1 vials Inhalation 4 times a [...] 6 Refills, Maintenance, 07/15/23 19:14:00 EDT, Tablet, [facility]/pharmacy #2071, Partial fill upon patient request if the prescription is for a schedule II opioid drug., 1 tablet By Mouth 2 times a day, 158.3... Start Date: 07/15/23 Status: Ordered Daily Leslie oral tablet See Instructions, ANJELE NAZ TABLETA TODOS LOS BENITEZ, # 90 tablet, 1 Refills, Maintenance, 08/30/23 11:40:00 EDT, [facility], 90, TOME NAZ TABLETA TODOS [place] BENITEZ, 158.3, cm, 08/09/23 11:09:00 EDT, Height Start Date: 08/30/23 Status: Ordered diclofenac 1% topical gel 1 application, Topically, 4 times a day, # 100 Gm, 0 Refills, Maintenance, 06/24/23 12:02:00 EDT, Gel, [facility]/pharmacy #2071, Partial fill upon patient request if the prescription is for a schedule II opioid drug., 158.3, cm, 05/19/23 14:14:00 EDT, Height Start Date: 06/24/23 Status: Ordered duloxetine 30 mg oral enteric coated capsule 1 capsule = 30 mg, By Mouth, Daily, # 90 capsule, 3 Refills, 08/09/23 11:49:00 EDT, [facility]/pharmacy #2071, 158.3, cm, 08/09/23 11:09:00 EDT, Height [...] 2 Refills, Maintenance, 07/15/23 14:00:00 EDT, Tablet, [facility]/pharmacy #2071, Partial... Start Date: 07/15/23 Status: Ordered levothyroxine 0.088 mg oral tablet 1 tablet = 88 mcg, By Mouth, Daily, # 90 tablet, 1 Refills, Maintenance, 10/12/23 10:26:00 EST, Tablet, [facility]/pharmacy #207, Partial fill upon patient request if the prescription is for a schedule II opioid drug. Dose reduction February 2023, 158.3, cm, 1... Start Date: 10/12/23 Status: Ordered lidocaine 5% topical film 1 patch, Topically, Daily, PRN Pain , Mild, remove after 12 hours, # 13 each, 11 Refills, Maintenance, 07/01/23 11:12:00 EDT, Film, [facility]/pharmacy #207, Partial fill upon patient request if the prescription is for a schedule II opioid drug. For Cancer... Start Date: 07/01/23 Status: Ordered metFORMIN 500 mg oral tablet See Instructions, TOME NAZ TABLETA POR VIA ORAL TODOS LOS BENITEZ CON LAS COMIDAS, # 90 tablet, 0 Refills, Maintenance, 08/30/23 11:40:00 EDT, [facility], 158.3, cm, 08/09/23 11:09:00 EDT, Height Start Date: 08/30/23 Status: Ordered mirtazapine 7.5 mg oral tablet See Instructions, TOME NAZ TABLETA POR VIA ORAL AL ACOSTARSE, # 90 tablet, 3 Refills, 06/24/23 13:24:00 EDT, [facility]/pharmacy #2070, 158.3, cm, 05/19/23 14:14:00 EDT, Height Start Date: 06/24/23 Status: Ordered nabumetone 500 mg oral tablet See Instructions, TOME NAZ TABLETA POR VIA ORAL DOS VECES AL YAEL CUANDO SEA NECESARIO POR DOLOR, # 60 tablet, 1 Refills, Maintenance, 06/23/23 8:44:00 EDT, [facility]/pharmacy #2070, 158.3, cm, 05/19/23 14:14:00 EDT, Height [...] each, 3 Refills, Maintenance, 06/24/2311:55:00 EDT, Powder, [facility]/pharmacy #2071, Partial fill upon patient request if [...] life care: delcined palliative and Hospice at [facility] stay Confirmed Active 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 [...] bronchial challenge 01-07 2x-ray 2013 stable, persistent [address]307 x-ray, mild 4repeat 5 years 5Severe emphysema per pulmo note 6/20/13 6per -2011 colonoscopy 7 fall 2022/ scanned note 8PPD negative 04-26-08 9lung (lateral basal segment of the left lower lobe), per CT 01-18-2009 done at [facility] 10internal and external per 2011 colonoscopy 11(assuming no family history) 12per 2011 report, repeat due 10 years (due 2021) 13urology consult written today 14per CT from [facility], associated with ureteral stone. mild left hydronephrosis 15Repeat stone Oct 2021, seeing urology 16per CT from [facility] , ER was notified 17not starting meds due to polypharmacy and comorbidities 18Followed by Pulm in [place], stability on repeat CT Chest Sep 2020 per their note 19New 10mm nodule LUNG-RADS 4B 09/20/19 20Followed by [place] [facility] [place] 2007 x-ray 2009 x-ray [id number] DEXA: T-score lowest -3.7 24Rash developed 07/06/13 25Correction: MRI 08/02/13 26Per MRI 08/02/14 27of colon >1cm , fair prep -2021, next due -2024 per scanned report by [place] Social History Social History Type Response Smoking Status Former smoker; Other : per pt; entered on: 04/21/18 Sex Male Patient Care team information Care Team Personnel Name: Kayla Chaney MD Position: S Physician - Primary Care Member Role: PCP Address: Address: [address] [place] [address]- Care Team Related Persons Name: STEVE LOPEZ Address: home [address] [place] [address] Name: MERLY ROBERSON Address: home [address] [place] [address] Name: MORALES MUELLER JR
[2023-10-26 14:51] LABS: Basophils Percent Auto 0.1 % (0-2); Hematocrit 33.9 % (42.0-52.0); Imm Gran Abs Auto 0.25 X10*3/uL (0.00-0.03); Imm Gran Pct Auto 1.2 % (0.0-0.4); Lymphocytes Absolute Auto 0.4 X10*3/uL (1.2-4.9); Lymphocytes Percent Auto 1.8 % (20-40); MANUAL DIFF FLAG SCAN; Mean Corpuscular HGB Conc 29.5 g/dl (31.0-36.0); Mean Corpuscular Hemoglobin 22.4 pg (27.0-33.0); Mean Platelet Volume 8.9 fL (9.4-12.4); Monocytes Absolute Auto 0.3 X10*3/uL (0.1-1.2); Monocytes Percent Auto 1.4 % (2-11); Neutrophils Absolute Auto 19.6 x10*3/uL (2.0-8.3); Neutrophils Percent Auto 95.5 % (45-73); Platelet Count 576 X10*3/uL (160-400); Red Blood Count 4.46 X10*6/uL (4.60-5.80); Red Cell Distribution Width 19.7 % (11.0-16.0); SCAN SMEAR FLAG 1; White Blood Count 20.5 X10*3/uL (4.8-10.8)
--- NOTE | 2023-10-26 14:54 | PC.NURSE ---
aox4. coming from home, reporting ride sided abdominal pain upper quadrant and rib area. reports that asthma and cough has made pain ain abd =omen worse, that it has been going on for a couple of years but increased yesterday. IV started - 20g right AC. labs drawn. EKG done. plan of care ongoing.
[2023-10-26 15:08] LABS: Alanine Aminotransferase 8 U/L (0-40); Albumin Level 3.1 g/dL (3.5-5.0); Alkaline Phosphatase 111 U/L (39-117); Anion Gap 13 (12-20); Aspartate Amino Transferase 26 U/L (5-37); Bilirubin Direct < 0.2 mg/dL (0.0-0.5); Bilirubin Total 0.2 mg/dL (0.0-1.0); Blood Urea Nitrogen 11 mg/dL (9-16); Calcium 9.5 mg/dL (8.4-10.2); Carbon Dioxide 30 mmol/L (22-29); Chloride 100 mmol/L (96-108); Estimated Glomerular Filt Rate > 60; Glucose Random 146 mg/dL (60-115); Lipase 12 U/L (8-78); Potassium 3.8 mmol/L (3.3-5.1); Sodium 139 mmol/L (135-145); Total Protein 6.3 g/dL (6.5-8.0)
[2023-10-26 15:14] LABS: B Type Natriuretic Peptide 26 pg/mL (<100)
[2023-10-26 15:18] LABS: SLIDE REVIEW VERIFIED
[2023-10-26 16:03] LABS: C Reactive Protein 7.93 mg/dL (< or = 0.50)
[2023-10-26] MEDS: 0.9 % Sodium Chloride 1,000 ML 999 ML IV (16:12)
[2023-10-26] MEDS: HYDROmorphone HCl 1 MG/ML SYRINGE IM (16:13)
[2023-10-26] MEDS: iohexoL 350 MG/ML 100 ML INFUS..BTL IV (16:42)
[2023-10-26 17:05] LABS: Appearance Urine Clear; Color Urine Yellow; Glucose Urine UA Negative (Negative); Leukocyte Esterase Urine Negative (Negative); Nitrite Urine Negative (Negative); PH 7.5 (5.0-9.0); Urine Blood Negative (Negative); Urine Ketones Negative (Negative); Urine Protein Negative (Neg-Trace)
--- NOTE | 2023-10-26 17:28 | PC.NURSE ---
fluids infused. pt reports minimal pain /10. tech to draw cultures and lactic
[2023-10-26 18:45] LABS: Lactic Acid 1.2 mmol/L (0.5-2.0)
[2023-10-26 19:05] VITALS: BP 131/54; PULSE 69; RESP 18; O2SAT 96
[2023-10-26] MEDS: cefTRIAXone sodium 1 GM in 0.9 % Sodium Chloride 50 ML IV (19:33)
--- NOTE | 2023-10-26 19:37 | P.HPHOSP_ITS ---
History of Present Illness Date of Service: 10/26/23 Attending physician on admission: [facility] Chief Complaint: SOB, right-sided abd pain Pt is a 77-year-old male with a PMH significant for?known lung cancer, COPD, paroxysmal AFib on Eliquis, HTN, HLD, GERD, hypothyroidism, and zmr-oqkweom-[id number] diabetes type 2 who presents to the ED with?intractable right-sided chest and abdominal pain since last night and increasing shortness of breath and productive cough for the past few days. Patient with a known history of lung cancer that has not been treated with either chemotherapy, radiation, or surgery. Patient last admitted to the hospital 2 weeks prior on 10/13/2023-10/17/2023 where he presented with similar symptoms and was also found to be in new onset AFib with RVR. Patient was evaluated by PT who suggested STR due to deconditioning, weakness, and impaired balance. Patient initially was amenable to STR but eventually decided to be discharged home on VNA services. Patient has thus far declined either hospice or palliative care. After discharge patient said he felt well for the 1st week or so, but then pain returned and was not alleviated by his home analgesics. Also developed increasing shortness of breath and increased cough productive of yellowish sputum. Presents to the emergency department today as pain became unbearable this morning. Had some nausea this morning but no vomiting. Denies chest pain/pressure, palpitations. No fever, chills, constipation or diarrhea. In the ED pt was afebrile with pulse and RR WNL, but soft BP as low as 131/54, satting at 96% RA. Labs were significant for leukocytosis of 20.5, stable microcytic anemia 10.0/33.9, and CRP 7.93. Electrolytes WNL. Renal function baseline. Lactic acid WNL at 1.2. Hepatic function baseline. UA negative for UTI. CXR showed no acute intrathoracic disease, but redemonstrated multiple pleural-based masses in the right lung with small right pleural effusion. CT?of abdomen and pelvis did not find a cause for the patient's right-sided abdominal pain and tenderness. Did show large right lung mass with right-sided pleural effusion and bronchiectases in collapsed lung with calcified granuloma of the left lung base. EKG demonstrated normal sinus rhythm without significant ST elevations or depressions. Pt was treated with IVF, Dilaudid 1mg, and ceftriaxone. Pt will be admitted to the hospital for treatment of intractable pain and acute COPD/asthma exacerbation in the setting of pneumonia. Review of Systems 2 Review of Systems: Intractable right sided chest and abdomen pain Increasing productive cough Increasing shortness of breath Some nausea, no vomiting Denies chest pain/pressure, palpitations No fever, chills, diarrhea PMFSH Medical History Acute exacerbation of chronic obstructive pulmonary disease Abnormal PET scan of colon Tobacco dependence Chronic respiratory failure Sepsis Osteoporosis COPD (chronic obstructive pulmonary disease) Ureteral calculi Hypertension Hypothyroidism GERD (gastroesophageal reflux disease) Osteoarthritis Oxygen dependent Diabetes Asthma Family History Father Throat cancer Brother Lung cancer Other Hypertension Surgical History History of lithotripsy (~2008) History of cataract surgery (~2011) History of lung biopsy (~2021) History of appendectomy Social History Household Members: Spouse Household Members Other:: 1 Housing: Apartment Are you a primary primary care sales representative to a significant other at home: No Do you presently have visiting nurse or other home services: No Alcohol intake: former Comment: pt. refusing bed and chair alarms Patient Tobacco Use Status: Never used Tobacco Tobacco use type: Cigarette Cigarette Packs Per Day: 0.5 Cigarettes Per Day: 10.0 Years Smoked: 62 Smoked in Last 30 Days: No e-Cigarette/Vaping Use: Currently Using Second Hand Smoke Exposure: No Use of substances other than those prescribed or required for medical reasons: No Advance Directives: Yes Advance Directives Information Provided: Yes Advance Directives on File: No Advance Directives Date on File: 12/18/20 Nutrition Risks: No Nutritional Risk service: No Current occupational status: unemployed and retired Meds Allergies Allergy/AdvReac Type Severity Reaction Status Date / Time pollen extracts [POLLEN] Allergy Intermediate RUNNING Verified 10/04/23 09:59 NOSE, WATERY EYES, SNEEZING varenicline [VARENICLINE] AdvReac Unknown PALPITATION Verified 10/04/23 09:59 S Active Medications: Current Medications Ceftriaxone Sodium 1 gm/ (Sodium Chloride) 50 mls @ 100 mls/hr IV ONCE ONE Stop: 10/26/23 19:48 Last Admin: 10/26/23 19:33 Dose: 100 mls/hr Home Medications Medication Instructions Recorded Confirmed Last Taken Type omeprazole 20 mg capsule,delayed 20 mg PO DAILY@0630 12/01/20 10/26/23 06/17/23 06:30 History release multivitamin with folic acid 400 1 tab PO DAILY 08/28/22 10/26/23 06/17/23 09:00 History mcg tablet (Daily-Leslie (with folic acid)) levothyroxine 88 mcg tablet 88 mcg PO DAILY@0600 06/17/23 10/26/23 06/17/23 06:00 History acetaminophen 325 mg tablet 650 mg PO Q6H PRN Pain 06/18/23 10/26/23 Unknown History (Tylenol) topiramate 50 mg tablet 50 mg PO DAILY 06/18/23 10/26/23 06/17/23 09:00 History ipratropium 0.5 mg-albuterol 3 mg 3 ml inhalation QID PRN wheezing 07/02/23 10/26/23 Unknown History (2.5 mg base)/3 mL nebulization soln topiramate 50 mg tablet 100 mg PO BEDTIME 07/02/23 10/26/23 Unknown History ibandronate 150 mg tablet 150 mg PO QMONTH 08/15/23 10/26/23 08/07/23 History testosterone cypionate 200 mg/mL 100 mg IM Q2W 08/15/23 10/26/23 08/10/23 History intramuscular oil cholecalciferol (vitamin D3) 25 25 mcg PO DAILY 09/13/23 10/26/23 Unknown History mcg (1,000 unit) tablet duloxetine 30 mg capsule,delayed 30 mg PO DAILY 09/13/23 10/26/23 Unknown History release fluticasone fur. 200 mcg-umeclid 1 inh inhalation DAILY 09/13/23 10/26/23 Unknown History 62.5 mcg-vilant 25 mcg inhalat.powder (Trelegy Ellipta) metformin 500 mg tablet 500 mg PO DAILY 09/13/23 10/26/23 Unknown History mirtazapine 7.5 mg tablet 7.5 mg PO BEDTIME 09/13/23 10/26/23 Unknown History pyridoxine (vitamin B6) 50 mg 50 mg PO DAILY 09/13/23 10/26/23 Unknown History tablet Physical Exam 2 Vital Signs and Narrative: Vital Signs: Last Vital Signs Temp 98.6 F 10/26/23 13:57 Pulse 69 10/26/23 19:05 Resp 18 10/26/23 19:05 BP 131/54 L 10/26/23 19:05 Pulse Ox 96 10/26/23 19:05 O2 Del Method Room Air 10/26/23 19:05 BMI result Body Mass Index 15.5 Constitutional: Alert, cachectic, frail-looking, in no acute distress. Mental Status: Oriented to person, place and time. Eyes: Pupils are equal, round, and reactive to light. Ear, Nose, and Throat: Oropharynx clear, mucous membranes moist. Ears and nose without deformities. Trachea midline. Respiratory: Diffuse expiratory wheezes and crackles bilaterally. Cardiovascular: S1, S2 regular. No murmurs, rubs, or gallops. Gastrointestinal: Abdomen soft, non-tender, non-distended. Normal bowel sounds. Neurologic: Cranial nerves II-XII are grossly intact bilaterally. No focal neurological deficits. Moves all extremities spontaneously. Skin: Warm, dry. Musculoskeletal: Large 4cm oval mass on right mid-upper back. Extremities: No edema. Psychiatric: Normal mood and affect. Results Labs 10/26/23 14:44 10/26/23 14:44 Labs: Laboratory Results - last 24 hr 10/26/23 10/26/23 10/26/23 14:44 16:58 18:26 MCV 76.0 L MCH 22.4 L MCHC 29.5 L RDW 19.7 H Plt Count 576 H MPV 8.9 L Immature Gran % (Auto) 1.2 H Neut % (Auto) 95.5 H Lymph % (Auto) 1.8 L [place] % (Auto) 1.4 L Eos % (Auto) 0.0 Baso % (Auto) 0.1 Lymph # (Auto) 0.4 L [place] # (Auto) 0.3 Eos # (Auto) 0.0 Baso # (Auto) 0.0 Abs Immat Gran (auto) 0.25 H Absolute Neuts (auto) 19.6 H Absolute Nucleated RBC 0.000 Nucleated RBC % (auto) 0.0 Smear Tech's Comments VERIFIED Anion Gap 13 Estim Creat Clear Calc 51.0 Estimated GFR > 60 Random Glucose 146 H Lactic Acid 1.2 Calcium 9.5 Magnesium 2.0 Total Bilirubin 0.2 Direct Bilirubin < 0.2 AST 26 ALT 8 Alkaline Phosphatase 111 C-Reactive Protein 7.93 H B-Natriuretic Peptide 26 Total Protein 6.3 L Albumin 3.1 L Lipase 12 Urine Color Yellow Urine Appearance Clear Urine pH 7.5 Ur Specific [place] 1.020 Urine Protein Negative Urine Glucose (UA) Negative Urine Ketones Negative Urine Blood Negative Urine Nitrite Negative Ur Leukocyte Esterase Negative Imaging Radiologist's Impressions: Impressions Chest X-Ray 10/26/23 15:05 IMPRESSION: No acute intrathoracic disease. Multiple pleural-based masses in the right lung with small right pleural effusion all appear unchanged. Abdomen/Pelvis CT 10/26/23 16:51 IMPRESSION: 1. A cause for the patient's right-sided abdominal pain and tenderness has not been found. 2. Large right lung mass with right-sided pleural effusion and bronchiectasis in collapsed lung. 3. Calcified granuloma left lung base. 4. Possible Cholelithiasis without cholecystitis. Ultrasound could be performed for further evaluation if clinically indicated. 5. Colonic diverticulosis without diverticulitis. 6. Mild BPH. 7. Other incidental findings as described above. Fleischner guidelines were followed. Assessment and Plan (1) Pneumonia: Status: Acute (2) Intractable abdominal pain: Status: Acute Plan Pt is a 77-year-old male with a PMH significant for?known lung cancer, COPD, paroxysmal AFib on Eliquis, HTN, HLD, GERD, hypothyroidism, and dek-jzdvkbb-agppqpkha diabetes type 2 who presents to the ED with?intractable right-sided chest and abdominal pain since last night and increasing shortness of breath and productive cough for the past few days. Pt will be admitted to the hospital for treatment of intractable pain and acute COPD/asthma exacerbation in the setting of pneumonia. Acute COPD/asthma overlap exacerbation in the setting of likely pneumonia Patient with increased SOB, productive cough, leukocytosis, diffuse expiratory wheezing and crackles on auscultation Cover with azithromycin, ceftriaxone, started 10/26/2023 Will treat with DuoNebs, Solu-Medrol Patient not hypoxic, not on supplemental O2 Patient does not meet sepsis criteria: Leukocytosis, but no tachypnea, tachycardia, and pt afebrile; lactic acid WNL at 1.2 Intractable right-sided chest and abdomen pain Likely secondary to known lung cancer; CT of abd/pelvis without findings explaining pt's pain and tenderness Pt recently switched from home tramadol to dilaudid 2 mg po Given Dilaudid 1 mg IV in ED Will treat with Dilaudid 2 mg p.o. for moderate pain and Dilaudid 0.5 mg IV for severe pain Protein calorie malnutrition Likely severe, secondary to underlying cancer Ensure t.i.d., Magic cup Paroxysmal AFib Continue amiodorone, diltiazem, apixaban Hypothyroidism Levothyroxine Rkq-udgqowh-squuusjvr diabetes type [address] on sliding scale insulin Diabetic diet GERD PPI Mood disorder Continue home meds DNR/DNI Attending:?Dr. Espinoza DVT Prophylaxis: On Eliquis Pt will require a hospitalization of at least two nights for treatment of?acute COPD/asthma exacerbation in the setting of pneumonia. Patient will be treated with IV antibiotics, IV analgesics, and breathing treatments. Quality Stroke Does the patient have a stroke diagnosis?: No VTE Prior VTE?: No VTE Risk Level:: Medical - moderate - high VTE Device Contraindication: Treatment Not Indicated VTE Drug Contraindication: N/A - Med Ordered
--- NOTE | 2023-10-26 20:25 | PHA.MEDREC ---
Pharmacy Consult ? Medication Reconciliation Pharmacy has completed the medication reconciliation.
[2023-10-26] MEDS: methylPREDNISolone Sod Succ 40 MG/ML VIAL IVPUSH (20:42)
[2023-10-26] MEDS: Azithromycin 500 MG in 0.9 % Sodium Chloride 250 ML 125 MG IV (20:52)
[2023-10-26 21:28] VITALS: BP 125/55; PULSE 65; RESP 14; TEMP 36.5; O2SAT 95
[2023-10-26] MEDS: Topiramate 25 MG TABLET 100 MG PO (21:33)
[2023-10-26] MEDS: Apixaban 5 MG TABLET PO (21:33)
--- NOTE | 2023-10-26 21:50 | PC.NURSE ---
This proposal lead writer assumed care of this Pt at 2100. Pt A&Ox3, reports 6/10 tolerable pain to right side of ABD, with effectiveness of meds given by previous RN. Pt medicated per MAR, VSS. Pt and updated with plan of care.
[2023-10-27] VITALS (9 sets, daily range): BP systolic 127–146; BP diastolic 55–67; PULSE 57–80; RESP 16–19; TEMP 35.8–36.4; O2SAT 93–96; BMI 14.8
[2023-10-27] MEDS: 0.9 % Sodium Chloride Flush 3 ML SYRINGE IVFLUSH ×4 (00:27→19:45)
[2023-10-27] MEDS: HYDROmorphone HCl 1 MG/ML SYRINGE 0.5 MG IVPUSH (00:27)
--- NOTE | 2023-10-27 01:32 | PC.NURSE ---
Pt requesting food, sandwich and PO fluids given. Pt medicated per JAN.
--- NOTE | 2023-10-27 03:10 | PC.NURSE ---
Report given to Shy, Pt will be transported to bed [id number], Pt and made aware of plan.
[2023-10-27] MEDS: HYDROmorphone HCl 2 MG TABLET PO (04:04)
[2023-10-27 05:49] LABS: Hematocrit 31.4 % (42.0-52.0); Hemoglobin 9.4 g/dl (14.0-18.0); Mean Corpuscular HGB Conc 29.9 g/dl (31.0-36.0); Mean Corpuscular Hemoglobin 23.2 pg (27.0-33.0); Mean Corpuscular Volume 77.5 fL (80.0-98.0); Mean Platelet Volume 9.3 fL (9.4-12.4); Platelet Count 568 X10*3/uL (160-400); Red Blood Count 4.05 X10*6/uL (4.60-5.80); Red Cell Distribution Width 19.7 % (11.0-16.0); White Blood Count 14.1 X10*3/uL (4.8-10.8)
[2023-10-27] MEDS: Levothyroxine Sodium 88 MCG TABLET PO (05:53)
[2023-10-27] MEDS: Omeprazole 20 MG CAPSULE.DR PO (05:53)
[2023-10-27] MEDS: Albuterol/Iprat 2.5/0.5MG 3 ML AMPUL.NEB INHALE ×4 (07:21→18:57)
[2023-10-27 07:24] LABS: Glucose, Whole Blood 117 mg/dL (60-115)
[2023-10-27] MEDS: DULoxetine HCl 30 MG CAPSULE.DR PO (09:30)
[2023-10-27] MEDS: Theophylline Anhydrous ER 300 MG TAB.ER.12H PO (09:30)
[2023-10-27] MEDS: methylPREDNISolone Sod Succ 40 MG/ML VIAL IVPUSH ×2 (09:30→19:46)
[2023-10-27] MEDS: Multivitamin TABLET 1 TAB PO (09:31)
[2023-10-27] MEDS: Cholecalciferol (Vitamin D3) 25 MCG TABLET PO (09:31)
[2023-10-27] MEDS: Apixaban 5 MG TABLET PO ×2 (09:31→22:02)
[2023-10-27] MEDS: Topiramate 25 MG TABLET 50 MG PO (09:31)
[2023-10-27] MEDS: Amiodarone HCL 200 MG TABLET PO ×2 (09:31→22:02)
[2023-10-27] MEDS: Pyridoxine HCl (Vitamin B6) 50 MG TABLET PO (09:31)
--- NOTE | 2023-10-27 11:04 | MHC.CLN ---
NUTRITION CONSULT FOR POOR PO. DIET LIBERALIZED FROM DIABETIC 2000 KCALS TO REGULAR DIET. LIBERALIZED DIET TO INCREASE FOOD CHOICES. LIKES ICE CREAM. ADDING MAGIC CUP TID TO PROVIDE 870 KCALS, 27 G PROTEIN. QUALIFIES SEVERELY MALNOURISHED IN THE CONTEXT OF CHRONIC ILLNESS. SHOWS SIGNIFICANT WEIGHT LOSS X ONE MONTH -16%. SEVERE DEPLETION OF MUSCLE MASS EVIDENT IN THE CLAVICLE AND SHOULDER. MODERATE TO SEVERE LOSS OF BODY FAT IN RIB CAGE. ENCOURAGE INTAKE OF FOOD CHOICES AND SUPPLEMENT ABLE. FOLLOW FOR INTAKE. SEE CLINICAL NUTRITION ASSESSMENT 10/27/23.
[2023-10-27 11:14] LABS: Glucose, Whole Blood 162 mg/dL (60-115)
--- NOTE | 2023-10-27 12:18 | MHC.CM.PN ---
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 IMM DELIVERED. PATIENT FROM HOME WITH AND NIECE. USES CANE PRN. INDEPENDENT WITH ADL'S. RECENT D/C FROM [facility] 10/17/23 - STR WAS RECOMMENDED, BUT PT DECLINED AND INSTEAD WENT HOME WITH NEW [facility]. HCP: STEVE LOPEZ PCP: ERIN WAGNER MD DCP: CONTINUES TO DECLINE STR, RETURN HOME VIA PRIVATE TRANSPORT, RESUME [facility] SERVICES.CM WILL CONTINUE TO FOLLOW.
[2023-10-27] MEDS: Insulin Lispro 100 UNIT/ML 3 ML VIAL SUBCUT ×3 (12:30→22:03)
--- NOTE | 2023-10-27 15:44 | HO.PM.IMPN ---
Subjective Subjective Date of Service: 10/27/23 Interval History: Seen in follow-up for asthma/COPD overlap exacerbation and pneumonia Interval history: Feeling much better. No shortness of breath, wheezing, chest pain. WBC trending down, vital stable. Review of Systems Review of Systems: Yes all other systems are reviewed and are negative Physical Exam Vital Signs: Vital Signs: Last Vital Signs Temp 97.5 F 10/27/23 15:13 Pulse 62 10/27/23 15:13 Resp 18 10/27/23 15:13 BP 145/66 H 10/27/23 15:13 Pulse Ox 93 10/27/23 15:13 O2 Del Method Room Air 10/27/23 15:13 BMI result Body Mass Index 14.8 Constitutional - Awake and Alert, No apparent distress Eyes - PERRLA, EOMI Cardiovascular - S1S2, RRR, No edema Respiratory - Normal lung expansion, Normal respiratory effort, No respiratory distress, CTA bilaterally Gastrointestinal - NT / ND; +BS; No rebound or guarding Extremities - no calf tenderness bilaterally, no swelling Skin - Warm/Dry Neurological - Alert & oriented x3 Psychological - Appropriate affect Objective Data Active Medications Acetaminophen (Acetaminophen 325 Mg Tablet) 650 mg PO Q6H PRN PRN Reason: Pain, Mild (Pain Scale 1-3) Albuterol Sulfate (Albuterol Sulfate 90 Mcg 8 Gm Inhaler) 2 puff INHALE Q4H PRN PRN Reason: shortness of breath or wheezing Albuterol/Ipratropium (Albuterol/Iprat 2.5/0.5mg 3 Ml Ampul.Neb) 3 ml INHALE RQ4H WHILE AWAKE [facility] Last Admin: 10/27/23 11:09 Dose: 3 ml Documented By: MP Albuterol/Ipratropium (Albuterol/Iprat 2.5/0.5mg 3 Ml Ampul.Neb) 3 ml INHALE QID PRN PRN Reason: wheezing Amiodarone HCl (Amiodarone Hcl 200 Mg Tablet) 200 mg PO BID [facility] Last Admin: 10/27/23 09:31 Dose: 200 mg Documented By: GERSON Apixaban (Apixaban 5 Mg Tablet) 5 mg PO BID [facility] Last Admin: 10/27/23 09:31 Dose: 5 mg Documented By: GERSON Benzonatate (Benzonatate 100 Mg Capsule) 100 mg PO TID PRN PRN Reason: Cough Dextrose (Dextrose 50 % 25 Gm/50 Ml Syringe) 25 gm IVPUSH Q15M PRN; Protocol PRN Reason: per Hypoglycemia Standing Ord. Diltiazem HCl (Diltiazem Hcl Cd 120 Mg Cap.Er.Deg) 120 mg PO DAILY [facility]; Protocol Last Admin: 10/27/23 09:31 Dose: Not Given Documented By: GERSON Non-Admin Reason: Decreased Heart Rate Docusate Sodium (Docusate Sodium 100 Mg Capsule) 100 mg PO DAILY PRN PRN Reason: Constipation Duloxetine HCl (Duloxetine Hcl 30 Mg Capsule.Dr) 30 mg PO DAILY [facility] Last Admin: 10/27/23 09:30 Dose: 30 mg Documented By: GERSON Fluticasone/Umeclidinium/Vilanterol (Fluticasone/Umeclidinium/Vilanterol 200/62.5/25 Blst.W.Dev) 1 puff INHALE RDAILY [facility] Last Admin: 10/27/23 11:07 Dose: Not Given Documented By: MP Non-Admin Reason: pharmacy called Glucose (Glucose Gel 15 Gm Gel..Gram.) 15 gm PO Q15M PRN; Protocol PRN Reason: per Hypoglycemia Standing Ord. Hydromorphone HCl (Hydromorphone Hcl 1 Mg/Ml Syringe) 0.5 mg IVPUSH Q4H PRN; Protocol PRN Reason: Pain, Severe (Pain Scale 7-10) Last Admin: 10/27/23 00:27 Dose: 0.5 mg Documented By: MELBA Hydromorphone HCl (Hydromorphone Hcl 2 Mg Tablet) 2 mg PO Q4H PRN PRN Reason: Pain, Moderate(Pain Scale 4-6) Last Admin: 10/27/23 04:04 Dose: 2 mg Documented By: SHWETHA Ceftriaxone Sodium 1 gm/ (Sodium Chloride) 50 mls @ 100 mls/hr IV Q24H [facility] Azithromycin 500 mg/ Sodium (Chloride) 250 mls @ 125 mls/hr IV Q24H [facility] Last Infusion: 10/26/23 22:55 Dose: Infused Documented By: MELBA Insulin Human Lispro (Insulin Lispro 100 Unit/Ml 3 Ml Vial) 0 unit SUBCUT QIDACHS [facility]; Protocol Last Admin: 10/27/23 12:30 Dose: 2 unit Documented By: GERSON Levothyroxine Sodium (Levothyroxine Sodium 88 Mcg Tablet) 88 mcg PO DAILY@0600 [facility] Last Admin: 10/27/23 05:53 Dose: 88 mcg Documented By: SHWETHA Lidocaine (Lidocaine 4 % Patch Adh..Patch) 1 patch TRANSDERMA DAILY PRN PRN Reason: Pain, Mild (Pain Scale 1-3) Melatonin (Melatonin 3 Mg Tablet) 6 mg PO BEDTIME PRN PRN Reason: Insomnia Methylprednisolone Sodium Succinate (Methylprednisolone Sod Succ 40 Mg/Ml Vial) 40 mg IVPUSH Q12H [facility] Last Admin: 10/27/23 09:30 Dose: 40 mg Documented By: GERSON Mirtazapine (Mirtazapine 7.5 Mg Tablet) 7.5 mg PO BEDTIME [facility] Multivitamins/Vitamin C (Multivitamin Tablet) 1 tab PO DAILY [facility] Last Admin: 10/27/23 09:31 Dose: 1 tab Documented By: GERSON Omeprazole (Omeprazole 20 Mg Capsule.Dr) 20 mg PO DAILY@0630 [facility] Last Admin: 10/27/23 05:53 Dose: 20 mg Documented By: SHWETHA Pyridoxine HCl (Pyridoxine Hcl (Vitamin B6) 50 Mg Tablet) 50 mg PO DAILY [facility] Last Admin: 10/27/23 09:31 Dose: 50 mg Documented By: GERSON Sodium Chloride (0.9 % Sodium Chloride Flush 3 Ml Syringe) [facility] Last Admin: 10/27/23 09:30 Dose: 3 ml Documented By: GERSON Theophylline (Theophylline Anhydrous Er 300 Mg Tab.Er.12h) 300 mg PO DAILY [facility] Last Admin: 10/27/23 09:30 Dose: 300 mg Documented By: GERSON Topiramate (Topiramate 25 Mg Tablet) 50 mg PO DAILY [facility] Last Admin: 10/27/23 09:31 Dose: 50 mg Documented By: GERSON Topiramate (Topiramate 25 Mg Tablet) 100 mg PO BEDTIME [facility] Last Admin: 10/26/23 21:33 Dose: 100 mg Documented By: HO.SERRANX Vitamin D (Cholecalciferol (Vitamin D3) 25 Mcg Tablet) 25 mcg PO DAILY [facility] Last Admin: 10/27/23 09:31 Dose: 25 mcg Documented By: GERSON Labs 10/27/23 05:39 10/26/23 14:44 Labs: Laboratory Results - last 24 hr 10/26/23 10/26/23 10/26/23 14:44 16:58 18:26 MCV MCH MCHC RDW Plt Count MPV Absolute Nucleated RBC Nucleated RBC % (auto) POC Glucose Lactic Acid 1.2 C-Reactive Protein 7.93 H Urine Color Yellow Urine Appearance Clear Urine pH 7.5 Ur Specific [place] 1.020 Urine Protein Negative Urine Glucose (UA) Negative Urine Ketones Negative Urine Blood Negative Urine Nitrite Negative Ur Leukocyte Esterase Negative 10/27/23 10/27/23 10/27/23 05:39 07:21 11:01 MCV 77.5 L MCH 23.2 L MCHC 29.9 L RDW 19.7 H Plt Count 568 H MPV 9.3 L Absolute Nucleated RBC 0.000 Nucleated RBC % (auto) 0.0 POC Glucose 117 H 162 H Lactic Acid C-Reactive Protein Urine Color Urine Appearance Urine pH Ur Specific [place] Urine Protein Urine Glucose (UA) Urine Ketones Urine Blood Urine Nitrite Ur Leukocyte Esterase Assessment and Plan (1) Intractable abdominal pain: Status: Acute (2) Lung cancer: Status: Acute (3) Pneumonia: Status: Acute Plan Pt is a 77-year-old male with a PMH significant for?known lung cancer, COPD, paroxysmal AFib on Eliquis, HTN, HLD, GERD, hypothyroidism, and trr-mjpchwg-xyayaelyr diabetes type 2 who presents to the ED with?intractable right-sided chest and abdominal pain since last night and increasing shortness of breath and productive cough for the past few days. Pt will be admitted to the hospital for treatment of intractable pain and acute COPD/asthma exacerbation in the setting of pneumonia. Acute COPD/asthma overlap exacerbation in the setting of likely pneumonia- improving Continue azithromycin, ceftriaxone, started 10/26/2023 Continue DuoNebs. Change to prednisone am symptomatic management Intractable right-sided chest and abdomen pain- improved Likely secondary to known lung cancer; CT of abd/pelvis without findings explaining pt's pain and tenderness Pain meds changed to home dose morphine IR 15mg (last prescribed by Dr. Johnson 10/13- no one managing pain meds on review of chart) Last onc appt 10/[address] Moran. Not proceeding with treatment Severe Protein calorie malnutrition Likely severe, secondary to underlying cancer Ensure t.i.d., Magic cup Paroxysmal AFib- rate controlled Continue amiodorone, diltiazem, apixaban Hypothyroidism Levothyroxine Zip-mzgjwwq-vruagxiyt diabetes type [address] on sliding scale insulin Diabetic diet GERD PPI Mood disorder Continue home meds DNR/DNI Attending:?Dr. Espinoza DVT Prophylaxis: On Eliquis Pt will ongoing inpt stay for management of pneumonia and COPD exacerbation in immunocompromised patient requiring IV antibiotics, nebs, IV steroids Quality Stroke Does the patient have a stroke diagnosis?: No VTE Prior VTE?: No VTE Risk Level:: Medical - moderate - high VTE Device Contraindication: Treatment Not Indicated VTE Drug Contraindication: N/A - Med Ordered
[2023-10-27 16:15] LABS: Glucose, Whole Blood 188 mg/dL (60-115)
[2023-10-27] MEDS: cefTRIAXone sodium 1 GM in 0.9 % Sodium Chloride 50 ML IV (19:46)
[2023-10-27 21:04] LABS: Glucose, Whole Blood 248 mg/dL (60-115)
[2023-10-27] MEDS: Topiramate 25 MG TABLET 100 MG PO (22:02)
[2023-10-27] MEDS: Mirtazapine 7.5 MG TABLET PO (22:02)
[2023-10-27] MEDS: Azithromycin 500 MG in 0.9 % Sodium Chloride 250 ML 125 MG IV (22:07)
[2023-10-28 04:00] VITALS: BP 133/60; PULSE 64; RESP 17; TEMP 36.3; O2SAT 96
[2023-10-28] MEDS: Levothyroxine Sodium 88 MCG TABLET PO (06:02)
[2023-10-28] MEDS: Omeprazole 20 MG CAPSULE.DR PO (06:02)
[2023-10-28 07:36] LABS: Glucose, Whole Blood 148 mg/dL (60-115)
[2023-10-28 07:47] VITALS: BP 141/65; PULSE 60; RESP 16; TEMP 36.6; O2SAT 96
[2023-10-28] MEDS: Fluticasone/Umeclidinium/Vilanterol 200/62.5/25 BLST.W.DEV 1 PUFF INHALE (07:51)
[2023-10-28] MEDS: Albuterol/Iprat 2.5/0.5MG 3 ML AMPUL.NEB INHALE ×3 (07:51→15:36)
[2023-10-28 07:53] VITALS: PULSE 63; RESP 16; O2SAT 96
[2023-10-28] MEDS: predniSONE 20 MG TABLET 40 MG PO (09:45)
[2023-10-28] MEDS: DULoxetine HCl 30 MG CAPSULE.DR PO (09:46)
[2023-10-28] MEDS: dilTIAZem HCL CD 120 MG CAP.ER.DEG PO (09:46)
[2023-10-28] MEDS: Cholecalciferol (Vitamin D3) 25 MCG TABLET PO (09:46)
[2023-10-28] MEDS: Theophylline Anhydrous ER 300 MG TAB.ER.12H PO (09:46)
[2023-10-28] MEDS: Topiramate 25 MG TABLET 50 MG PO (09:46)
[2023-10-28] MEDS: Apixaban 5 MG TABLET PO (09:47)
[2023-10-28] MEDS: Amiodarone HCL 200 MG TABLET PO (09:47)
[2023-10-28] MEDS: Multivitamin TABLET 1 TAB PO (09:47)
[2023-10-28] MEDS: Pyridoxine HCl (Vitamin B6) 50 MG TABLET PO (09:47)
[2023-10-28] MEDS: 0.9 % Sodium Chloride Flush 3 ML SYRINGE IVFLUSH (09:49)
--- NOTE | 2023-10-28 11:08 | MHC.CM.PN ---
Addendum entered by Leann Johnson RN 10/28/23 13:19: TECHNICAL SALES ADVISOR MET WITH PATIENT AND AT BEDSIDE, HOWEVER THEY PREFER THAT HOSPICE SPEAK WITH PATIENT'S NIECE WHO IS NOT AVAILABLE TODAY. PER HOSPICE, BECAUSE PATIENT IS ACTIVE WITH [facility] CAN D/C HOME TODAY AND ADMIT TO HOSPICE FROM HOME. PA AWARE AND WILL PLAN FOR D/C TODAY. REVIEWED WITH PATIENT AND VIA CONTACT CENTER SPECIALIST. PATIENT IS AGREEABLE TO PLAN. BLS TRANSPORTATION BOOKED FOR 5PM. RN, PHUONG, PIPER FROM HOSPICE, AND PATIENT ARE ALL AWARE. Original Note: EMR REVIEWED. PER MD ROUNDS, HOSPITALIST AND PT ARE DISCUSSING HOSPICE - LUNG CA, NO TX, ONGOING SEVERE PAIN. [facility] WILL COME TO [facility] FOR INFORMATIONAL TODAY.
[2023-10-28 11:22] LABS: Glucose, Whole Blood 221 mg/dL (60-115)
[2023-10-28 11:39] VITALS: PULSE 70; RESP 16; O2SAT 96
[2023-10-28] MEDS: Insulin Lispro 100 UNIT/ML 3 ML VIAL SUBCUT (11:51)
[2023-10-28] MEDS: traMADoL HCL 50 MG TABLET 25 MG PO (12:52)
--- NOTE | 2023-10-28 12:58 | PM.DS ---
DS: Providers Provider Date of Service: 10/28/23 Date of admission: 10/26/23 20:17 Date of discharge: 10/28/23 Primary care physician: Kayla Chaney MD Attending physician on discharge: Miguel Mcmahon Discharging clinician: Pallavi Bernal DS: Diagnosis Discharge Diagnosis (1) Lung cancer: Status: Acute (2) Pneumonia: Status: Acute DS: Summary Hospital Course Hospital Course: From H&P on day of admission Pt is a 77-year-old male with a PMH significant for?known lung cancer, COPD, paroxysmal AFib on Eliquis, HTN, HLD, GERD, hypothyroidism, and uab-gzgkiga-lbowwvvin diabetes type 2 who presents to the ED with?intractable right-sided chest and abdominal pain since last night and increasing shortness of breath and productive cough for the past few days. Patient with a known history of lung cancer that has not been treated with either chemotherapy, radiation, or surgery. Patient last admitted to the hospital 2 weeks prior on 10/13/2023-10/17/2023 where he presented with similar symptoms and was also found to be in new onset AFib with RVR. Patient was evaluated by PT who suggested STR due to deconditioning, weakness, and impaired balance. Patient initially was amenable to STR but eventually decided to be discharged home on VNA services. Patient has thus far declined either hospice or palliative care. After discharge patient said he felt well for the 1st week or so, but then pain returned and was not alleviated by his home analgesics. Also developed increasing shortness of breath and increased cough productive of yellowish sputum. Presents to the emergency department today as pain became unbearable this morning. Had some nausea this morning but no vomiting. Denies chest pain/pressure, palpitations. No fever, chills, constipation or diarrhea. In the ED pt was afebrile with pulse and RR WNL, but soft BP as low as 131/54, satting at 96% RA. Labs were significant for leukocytosis of 20.5, stable microcytic anemia 10.0/33.9, and CRP 7.93. Electrolytes WNL. Renal function baseline. Lactic acid WNL at 1.2. Hepatic function baseline. UA negative for UTI. CXR showed no acute intrathoracic disease, but redemonstrated multiple pleural-based masses in the right lung with small right pleural effusion. CT?of abdomen and pelvis did not find a cause for the patient's right-sided abdominal pain and tenderness. Did show large right lung mass with right-sided pleural effusion and bronchiectases in collapsed lung with calcified granuloma of the left lung base. EKG demonstrated normal sinus rhythm without significant ST elevations or depressions. Pt was treated with IVF, Dilaudid 1mg, and ceftriaxone. Pt will be admitted to the hospital for treatment of intractable pain and acute COPD/asthma exacerbation in the setting of pneumonia. Acute COPD/asthma overlap exacerbation in the setting of likely pneumonia- improving was treated with IV azithromycin, ceftriaxone, started 10/26/2023. has remained afebrile, blood cultures negative. changed to prednisone and will discharge with course of antibiotics. Intractable right-sided chest improved. Likely secondary to known lung cancer. on previous admission patient was started on dilaudid po, he had also been prescribed morphine as outpatient. After long discussion the patient and his family does not want to take stronger pain medications, they prefer to continue his previous ultram. 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 had hospice informational, but patient wants them to talk to his niece so will be done as an outpatient. recommend palliative or hospice care.currently he has no respiratory symptoms and no hypoxia. recommend outpatient follow up with PCP and oncology Time Attestation Discharge coordination time: Greater than 30 minutes Quality: Safe Use of Opioids Does Pt have an Active Cancer Diagnosis on the Problem List?: Yes Opioid Measure Date for [facility] Report: 09/28/23 Opioid Measure Time for [facility] Report: 13:27 Quality: Stroke Does the patient have a stroke diagnosis?: No Physical Exam Vital Signs: Vital Signs: Last Vital Signs Temp 97.8 F 10/28/23 07:47 Pulse 70 10/28/23 11:39 Resp 16 10/28/23 11:39 BP 141/65 H 10/28/23 07:47 Pulse Ox 96 10/28/23 07:47 O2 Del Method Room Air 10/28/23 07:47 BMI result Body Mass Index 14.8 Const: General: cooperative, comfortable, alert and awake Nutritional Appearance: cachectic and thin Orientation/consciousness: patient oriented x3 Resp: Other: course breath sounds Effort & Inspection: no respiratory distress and no use of accessory muscles Cardio: Rate: regular rate GI: Inspection: No distended Palpation (GI): Soft to palpation Neuro: General: patient oriented x3, moves all extremities and CN's II-XI intact bilaterally DS: Data Data Completed and Pending Completed studies during hospitalization [Text1]: Procedures Dilation of Right Ureter with Intraluminal Device, Via Natural or Artificial Opening Endoscopic (11/16/21) Extirpation of Matter from Right Ureter, Via Natural or Artificial Opening Endoscopic (11/16/21) Fluoroscopy of Right Kidney, Ureter and Bladder (11/16/21) Labs on day of discharge: Laboratory Results - last 24 hr 10/27/23 10/27/23 10/28/23 16:11 20:41 07:28 POC Glucose 188 H 248 H 148 H 10/28/23 11:14 POC Glucose 221 H Preliminary micro results at discharge 10/26/23 19:18 Blood Culture - Preliminary Blood - Venous No growth after 24 hours. 10/26/23 18:26 Blood Culture - Preliminary Blood - Venous No growth after 24 hours. Discharge Plan Discharge Anticipated Discharge Date/Time: 10/28/23 13:24 Patient Disposition: Home Health Service Discharge Diagnosis: copd lung cancer pneumonia Referrals: Kayla Chaney MD [Primary Care Provider] - 1 Week Amaury Moran MD [Physician] - 1 Week Discharge Medications: New benzonatate 100 mg Capsule 100 mg PO TID PRN (Reason: Cough) Qty: 20 0RF cefuroxime axetil 500 mg tablet 500 mg PO BID 5 Days Qty: 10 0RF doxycycline hyclate 100 mg tablet 100 mg PO BID 5 Days Qty: 10 0RF prednisone 20 mg tablet 40 mg PO DAILY 5 Days Qty: 10 0RF tramadol 50 mg tablet 25 mg PO Q6H PRN (Reason: pain (scale score 4-6)) Qty: 20 0RF Continued omeprazole 20 mg capsule,delayed release(DR/EC) 20 mg PO DAILY@0630 albuterol sulfate 90 mcg/actuation aerosol powdr breath activated 2 inh inhalation Q4-6H PRN (Reason: shortness of breath or wheezing) Qty: 1 0RF multivitamin with folic acid [Daily-Leslie (with folic acid)] 400 mcg tablet 1 tab PO DAILY levothyroxine 88 mcg tablet 88 mcg PO DAILY@0600 topiramate 50 mg tablet 50 mg PO DAILY acetaminophen [Tylenol] 325 mg Tablet 650 mg PO Q6H PRN (Reason: Pain) lidocaine 5 % adhesive patch,medicated 1 patch topical DAILY PRN (Reason: pain) Qty: 15 0RF Rx Instructions: leave on most painful area for up to 12 hrs Eliquis 5 mg Tablet 5 mg PO BID 30 Days Qty: 60 0RF diltiazem HCl [Cardizem CD] 120 mg Capsule,Extended Release 24hr 120 mg PO DAILY 30 Days Qty: 30 0RF Protocol: Hold for SBP/HR < HOLD for SBP < : 90 HOLD for HR < : 60 theophylline 300 mg capsule,extended release 24hr 300 mg PO DAILY 30 Days Qty: 30 0RF amiodarone 200 mg tablet 200 mg PO BID Qty: 82 0RF Rx Instructions: take 400 mg (2 pills) twice daily until 10/28 and then take 200 mg (1 pill) once daily ipratropium-albuterol 0.5 mg-3 mg(2.5 mg base)/3 mL solution for nebulization 3 ml inhalation QID PRN (Reason: wheezing) topiramate 50 mg tablet 100 mg PO BEDTIME testosterone cypionate 200 mg/mL oil 100 mg IM Q2W ibandronate 150 mg tablet 150 mg PO QMONTH metformin 500 mg tablet 500 mg PO DAILY pyridoxine (vitamin B6) 50 mg tablet 50 mg PO DAILY mirtazapine 7.5 mg tablet 7.5 mg PO BEDTIME duloxetine 30 mg capsule,delayed release(DR/EC) 30 mg PO DAILY Trelegy Ellipta 200-62.5-25 mcg blister with device 1 inh inhalation DAILY cholecalciferol (vitamin D3) 25 mcg (1,000 unit) tablet 25 mcg PO DAILY Discharge Orders: Discharge Order (Routine); Ordered 10/28/23 Ordered By: Pallavi Bernal Activity on Discharge: As tolerated Stand Alone Forms: Patient Portal Discharge page Care Plan Goals: recommend goals of care discussion with your PCP or oncologist to consider hospice care or palliative care Health Concerns: lung cancer pneumonia Plan of Treatment: Call Dr. Moran's office to schedule a follow up - [phone] Call your PCP to follow up would recommend to consider palliative for hospice care - you can have a hospice informational session as an outpatient since you do not want stronger medication, can continue taking tramadol for pain complete course of antibiotics and steroids as prescribed Assessment: see discharge summary
[2023-10-28 15:19] VITALS: BP 138/64; PULSE 66; RESP 16; TEMP 36.4; O2SAT 99
[2023-10-28 15:38] VITALS: PULSE 71; RESP 18; O2SAT 95
[2023-10-28 16:22] LABS: Glucose, Whole Blood 164 mg/dL (60-115)
== END 2023-10-28 18:40 | disposition home or self-care (01) | DRG 193 ==
LOC: HO.ED 20:05 → HO.EDOVER 20:30 → HO.S3 10-27 02:25
PROVIDERS: Internal Medicine; Physician Assistant; Admitting Provider Student in an Organized Health Care Education/Training Program; Emergency Provider Emergency Medicine; PCP Internal Medicine; Visit Provider Physician Assistant Medical
DX: J18.9 Pneumonia, unspecified organism (principal); E43 Unspecified severe protein-calorie malnutrition; J44.0 Chronic obstructive pulmonary disease with (acute) lower respiratory infection; J44.1 Chronic obstructive pulmonary disease with (acute) exacerbation; Z68.1 Body mass index [BMI] 19.9 or less, adult; C34.31 Malignant neoplasm of lower lobe, right bronchus or lung; J45.901 Unspecified asthma with (acute) exacerbation; I48.0 Paroxysmal atrial fibrillation; E11.9 Type 2 diabetes mellitus without complications; E03.9 Hypothyroidism, unspecified; G89.3 Neoplasm related pain (acute) (chronic); Z99.81 Dependence on supplemental oxygen; F17.210 Nicotine dependence, cigarettes, uncomplicated; Z71.6 Tobacco abuse counseling; Z79.01 Long term (current) use of anticoagulants; Z79.52 Long term (current) use of systemic steroids; Z79.84 Long term (current) use of oral hypoglycemic drugs; Z79.890 Hormone replacement therapy; Z79.899 Other long term (current) drug therapy
CPT/HCPCS: 36415; 71046; 74177; 80048; 80076; 81003; 82947; 83605; 83690; 83735; 83880; 85025; 85027; 86140; 87040; 93005; 94640; 99285; J0456; J0696; J1170; J2920; Q9967

== ENCOUNTER → 2023-10-26 20:17 | Outpatient (BNV) | payer MEDICARE, MEDICAID, SELFPAY | PROVIDERS: Admitting Provider Student in an Organized Health Care Education/Training Program; Emergency Provider Emergency Medicine; PCP Internal Medicine; Visit Provider Physician Assistant | DX: J18.9 Pneumonia, unspecified organism (principal); R10.9 Unspecified abdominal pain | CPT/HCPCS: 99222; 99232; 99239 ==